=== PATIENT | female | born 1950 | race Caucasian/White ===

== ENCOUNTER 2020-07-02 11:04 | Outpatient (REF) | payer MEDICARE, SELFPAY ==
--- NOTE | 2020-07-02 11:49 | XR_ITS ---
EXAMINATION: XR CHEST CLINICAL INFORMATION: E11.9 - Type 2 diabetes 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s COMPARISON: Chest radiograph 11/06/2017 TECHNIQUE: 2 views of the chest were obtained. FINDINGS: The lungs are clear. The vascularity is normal. There is no airspace consolidation or groundglass opacity or effusion. The costophrenic sulci are clear. The heart is normal in size. The hilar and mediastinal contours are normal. There are degenerative changes thoracic spine. XR/XR chest 2V IMPRESSION: Unremarkable examination.
[2020-07-02 11:59] LABS: Hematocrit 32.5 % (37-47); Mean Corpuscular HGB Conc 33.8 g/dl (31.0-35.0); Mean Corpuscular Hemoglobin 31.4 pg (27.0-33.0); Mean Corpuscular Volume 92.9 fL (80-98); Mean Platelet Volume 10.4 fL (9.4-12.3); Platelet Count 230 X10*3/uL (160-400); Red Cell Distribution Width 13.1 % (11.0-16.0); White Blood Count 8.6 X10*3/uL (4.8-10.8)
[2020-07-02 12:05] LABS: Estimated Average Glucose 105 mg/dL; Hemoglobin A1c % 5.3 %
[2020-07-02 12:30] LABS: Alanine Aminotransferase 20 U/L (0-31); Albumin Level 4.4 g/dL (3.5-5.0); Alkaline Phosphatase 76 U/L (39-117); Anion Gap 18 (12-20); Aspartate Amino Transferase 17 U/L (5-31); Bilirubin Direct 0.2 mg/dL (0.0-0.5); Bilirubin Total 0.4 mg/dL (0.0-1.0); Blood Urea Nitrogen 23 mg/dL (9-16); C Reactive Protein 0.36 mg/dL (< or = 0.50); Calcium 9.3 mg/dL (8.4-10.2); Carbon Dioxide 23 mmol/L (22-29); Chloride 106 mmol/L (96-108); Cholesterol 117 mg/dL; Estimated Glomerular Filt Rate > 60; Glucose Random 74 mg/dL (60-115); HDL Cholesterol 42 mg/dL; LDL Cholesterol Calculated 41 mg/dl; Potassium 4.6 mmol/l (3.3-5.1); Sodium 142 mmol/L (135-145); Total Protein 6.7 g/dL (6.5-8.0); Triglycerides 174 mg/dL
[2020-07-02 12:38] LABS: Glucose Urine UA NEG (NEG); Leukocyte Esterase Urine TRACE (NEG); Nitrite Urine NEG (NEG); PH 5.5 (5.0-8.0); Urine Blood NEG (NEG); Urine Ketones NEG (NEG); Urine Protein NEG (NEG-TRACE)
[2020-07-02 12:40] LABS: Appearance Urine HAZY; Color Urine YELLOW
[2020-07-02 12:41] LABS: Thyroid Stimulating Hormone 1.68 uIU/mL (0.32-4.0)
[2020-07-02 12:51] LABS: Bacteria Urine TRACE /LPF; RBC Urine 0-2 /HPF (0); Squamous Epithelial Cell Urine 2+ /LPF
[2020-07-02 13:06] LABS: Folate > 20.0 ng/mL (> or = 4.0); Vitamin B12 > 2000 pg/mL (200-900)
[2020-07-06 19:47] LABS: Vitamin D 25-OH, D2 <4 ng/mL; Vitamin D 25-OH, D3 39 ng/mL; Vitamin D 25-OH, Total 39 ng/mL (30-100)
== END 2020-07-02 11:05 | disposition home or self-care (01) ==
LOC: HO.LAB 11:04
PROVIDERS: PCP Internal Medicine; Visit Provider Internal Medicine
DX: E11.9 Type 2 diabetes 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s (principal); Z79.4 Long term (current) use of insulin; K21.9 Gastro-esophageal reflux disease without esophagitis
CPT/HCPCS: 36415; 71046; 80048; 80061; 80076; 81001; 82306; 82607; 82746; 83036; 84443; 85027; 86140

== ENCOUNTER 2020-07-20 09:57 | Outpatient (REF) | payer MEDICARE, SELFPAY ==
--- NOTE | 2020-07-22 12:51 | MHC.AU.P13 ---
Adult Audiological Evaluation Date of Visit: 07/20/20 Principal Investigator Used: Not Applicable Reason for Appointment: Audiologic evaluation due to increasing hearing difficulties and history of tinnitus. Does patient feel they have a hearing loss?: Yes If Yes, Which Ear?: Both Ears When Was Hearing Difficulty First Noticed?: 6-7 years ago Has hearing been tested previously?: Yes Previous Hearing Test Results: Testing was performed at [facility] approximately 4-5 years ago. Test results are not available for review; however, Kriss thinks she was told she had a moderate hearing loss at that time. 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 Also has a history of rheumatoid arthritis and sinus infections. Allergies: Sulfa, Codeine, Cymbalta, Doxycycline Medication List: Lantus solostar, Humalog, Methotrexate injection, Plaquene, Gabapentin, Lamotrigine, Omeprazole, Atorvastatin, Lisinopril, Folic Acid, Vit D, Asprin, Ferrous Gluconate, Lidocaine patch Otoscopy: Right Ear: Unremarkable Left Ear: Unremarkable Tympanometry: Tympanometry performed due to: To determine the integrity of the middle ear system Right Ear: Non-compliant Middle Ear System (Type B) Left Ear: Non-compliant Middle Ear System (Type B) Otoacoustic Emissions Frequency Range Used: 1.6-8 kHz Right Ear Results: Absent Emissions Analysis: Reduced/Absent emissions suggest cochlear dysfunction Left Ear Results: Absent Emissions Analysis: Reduced/Absent emissions suggest cochlear dysfunction Hearing Evaluation: Transducer(s) Used: Insert Earphones Bone Conduction Method: Conventional Audiometry Stimuli Used: Pure Tones Right Ear: Description of Hearing: Normal hearing thresholds at 250 and 500 Hz dropping to a severe high frequency sensorineural hearing loss Left Ear: Description of Hearing: Normal hearing thresholds at 250 and 500 Hz dropping to a moderately-severe high frequency sensorineural hearing loss The non-functioning middle ear systems do not appear to be causing further conductive hearing loss. Speech Recognition Threshold (SRT): Method Used: Monitored Live Voice Stimuli Used: Spondee Words Right Ear: 30 dB HL Left Ear: 30 dB HL Word Discrimination: Method: Recorded Lists Word Lists Used: NU-6 Right Ear: 72% at 70 dB HL Left Ear: 72% at 70 dB HL QuickSIN: Binaural Quick SIN Test: 8 dB SNR Loss suggesting Kriss experiences a moderate degree of difficulty understanding speech when background noise is present. This results is consistent with the degree and type of Kriss's hearing loss Comparison: Compared to the most recent evaluation: N/A Recommendations: Audiological re-evaluation in one year. 1) Discussed and provided a handout regarding Communication Strategies to use to improve speech understanding. 2) Recommend trial with binaural hearing aids due to the degree and type of hearing loss diagnosed. Kriss is no certain she is ready to try amplification at this time. 3) If Kriss would like to trial hearing aids at this office within the next six months, she may schedule a Hearing Aid Evaluation appointment. Diagnosis: Primary Diagnosis: H90.3 Bilateral Sensorineural Hearing Loss Secondary Diagnosis: H93.13 Tinnitus, Bilateral Services Performed: Comprehensive Audiological Evaluation (CPT 22903) Diagnostic Otoacoustic Emissions (CPT 17821, 26+TC) Tympanometry (CPT 80715) Signature: Provider: Tyron Griggs, CCC-A
== END 2020-07-20 09:58 | disposition home or self-care (01) ==
LOC: HO.SH 09:57
PROVIDERS: Visit Provider Internal Medicine
DX: H90.3 Sensorineural hearing loss, bilateral (principal); H93.13 Tinnitus, bilateral
CPT/HCPCS: 92557; 92567; 92588

== ENCOUNTER 2020-08-05 11:26 | Outpatient (REF) | payer MEDICARE, SELFPAY ==
[2020-08-05 12:27] LABS: MANUAL DIFF FLAG NO
[2020-08-05 12:32] LABS: Basophils Percent Auto 0.6 % (0-2); Eosinophils Absolute Auto 0.2 X10*3/uL (0.0-0.4); Eosinophils Percent Auto 2.7 % (0-4); Hematocrit 29.2 % (37-47); Imm Gran Abs Auto 0.02 X10*3/uL (0.00-0.03); Imm Gran Pct Auto 0.3 % (0.0-0.4); Lymphocytes Absolute Auto 0.9 X10*3/uL (1.2-4.9); Lymphocytes Percent Auto 12.2 % (20-40); Mean Corpuscular HGB Conc 34.2 g/dl (31.0-35.0); Mean Corpuscular Hemoglobin 31.9 pg (27.0-33.0); Mean Corpuscular Volume 93.3 fL (80-98); Mean Platelet Volume 10.7 fL (9.4-12.3); Monocytes Absolute Auto 0.3 X10*3/uL (0.1-1.2); Monocytes Percent Auto 3.9 % (2-11); Neutrophils Absolute Auto 5.7 X10*3/uL (2.0-8.3); Neutrophils Percent Auto 80.3 % (45-73); Platelet Count 256 X10*3/uL (160-400); Red Blood Count 3.13 X10*6/uL (4.20-5.50); White Blood Count 7.1 X10*3/uL (4.8-10.8)
[2020-08-05 12:37] LABS: D Dimer 217 NG/ML
[2020-08-05 13:05] LABS: Anion Gap 13 (12-20); Blood Urea Nitrogen 23 mg/dL (9-16); Calcium 8.9 mg/dL (8.4-10.2); Carbon Dioxide 26 mmol/L (22-29); Chloride 106 mmol/L (96-108); Cholesterol 87 mg/dL; Estimated Glomerular Filt Rate 47; Glucose Fasting 151 mg/dL (60-99); HDL Cholesterol 33 mg/dL; LDL Cholesterol Calculated 34 mg/dl; Potassium 4.2 mmol/L (3.3-5.1); Sodium 141 mmol/L (135-145); Triglycerides 104 mg/dL
== END 2020-08-05 11:27 | disposition home or self-care (01) ==
LOC: HO.LAB 11:26
PROVIDERS: PCP Internal Medicine; Visit Provider Nurse Practitioner Family
DX: J45.991 Cough variant asthma (principal)
CPT/HCPCS: 36415; 80048; 80061; 85025; 85379

== ENCOUNTER → 2020-08-26 09:49 | Outpatient (BNVA) | payer MEDICARE, SELFPAY | PROVIDERS: PCP Internal Medicine; Visit Provider Internal Medicine | DX: J45.991 Cough variant asthma (principal); J30.9 Allergic rhinitis, unspecified; R06.00 Dyspnea, unspecified; Z79.51 Long term (current) use of inhaled steroids; Z79.899 Other long term (current) drug therapy | CPT/HCPCS: 99202 ==

== ENCOUNTER 2020-08-27 09:36 | Outpatient (REF) | payer MEDICARE, SELFPAY ==
--- NOTE | ~2020-08-27 | MM_ITS ---
EXAMINATION: MM SCREENING DIGITAL BREAST TOMOSYNTHESIS, BILATERAL CLINICAL INFORMATION: Screening. Asymptomatic. The lifetime risk of breast cancer based on the Tyrer-Cuzick Model is 4%. COMPARISON: Mammography: 05/15/2019, outside mammography 01/15/2018, 11/30/2015 ([facility]). TECHNIQUE: Digital breast tomosynthesis is performed in both the craniocaudal and mediolateral oblique views along with computer-aided detection (CAD). Synthesized 2D images are generated from the tomosynthesis. FINDINGS: There are scattered areas of fibroglandular density (ACR BI-RADS breast composition Category b). There are no significant masses, abnormal calcifications, or other abnormalities. There is biopsy clip marker again noted left breast upper outer quadrant. There are bilateral vascular and some round calcifications again seen. The axilla and skin contours are unremarkable. MM/MM tomosynthesis screening BI IMPRESSION: No mammographic evidence of malignancy. ASSESSMENT: BI-RADS 2: Benign RECOMMENDATION: Routine annual mammography screening. This patient's information was entered into a reminder system with a target due date for their next mammogram.
== END 2020-08-27 09:37 | disposition home or self-care (01) ==
LOC: HO.MAMMO 09:36
PROVIDERS: PCP Internal Medicine; Visit Provider Internal Medicine
DX: Z12.31 Encounter for screening mammogram for malignant neoplasm of breast (principal)
CPT/HCPCS: 77063; 77067

== ENCOUNTER → 2020-09-06 08:21 | Outpatient (BNV) | payer MEDICARE, SELFPAY | PROVIDERS: PCP Internal Medicine; Referring Provider Internal Medicine; Visit Provider Internal Medicine | DX: D64.9 Anemia, unspecified (principal) | CPT/HCPCS: 99203; 99213; 99214; G2211 ==

== ENCOUNTER 2020-09-23 09:54 | Outpatient (REF) | payer MEDICARE, SELFPAY ==
--- NOTE | 2020-09-23 11:30 | PFT_ITS ---
FLOWS: FEV1 of 121% of predicted at 2.10 L. FVC 108% of predicted at 2.50 L. FEV1 to FVC ratio of 0.84. No bronchodilator response. LUNG VOLUMES: Total lung capacity 98% of predicted at 4.07 L. Residual volume 77% of predicted at 1.46 L. Slow vital capacity 114% of predicted at 2.61 L. Expiratory reserve volume 77% of predicted at 0.57 L. Diffusion capacity is normal. IMPRESSION: No obstructive or restrictive ventilatory defect. No bronchodilator response. Decreased expiratory reserve volume suggests extrathoracic restriction likely secondary to abdominal obesity. Oseas Alvarado MD AP/MODL / [id number]
== END 2020-09-23 09:55 | disposition home or self-care (01) ==
LOC: HO.RESP 09:54
PROVIDERS: PCP Internal Medicine; Visit Provider Internal Medicine
DX: R06.00 Dyspnea, unspecified (principal); J45.991 Cough variant asthma; J30.9 Allergic rhinitis, unspecified
CPT/HCPCS: 94060; 94727; 94729; 99212

== ENCOUNTER 2020-11-12 12:41 | Outpatient (REF) | payer MEDICARE, SELFPAY ==
--- NOTE | ~2020-11-12 | XR_ITS ---
EXAMINATION: BILATERAL HAND AND WRIST X-RAY CLINICAL INFORMATION: Rheumatoid arthritis COMPARISON: None TECHNIQUE: 4 views of each hand and wrist FINDINGS: Left: Bone alignment is normal. No fracture or dislocation is seen. There is osteoarthritis at the IP joints with joint space narrowing and osteophyte formation. There is question of a small erosion or cyst of the radial styloid. There is some some adjacent soft tissue ossification as well. It is possible this is related to old trauma. Carpal bones are otherwise normal. Soft tissues are otherwise normal. Right: Bone alignment is normal. No fracture or dislocation is seen. There is mild osteoarthritis at the IP joint of the thumb with joint space narrowing and osteophyte formation. There is a small cyst or erosion of the ulnar styloid. Carpal bones are otherwise normal. Soft tissues are normal. 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 Small cyst or erosion of the right ulnar styloid. Question small cyst or erosion of the left radial styloid.
--- NOTE | ~2020-11-12 | XR_ITS ---
EXAMINATION: BILATERAL HAND AND WRIST X-RAY CLINICAL INFORMATION: Rheumatoid arthritis COMPARISON: None TECHNIQUE: 4 views of each hand and wrist FINDINGS: Left: Bone alignment is normal. No fracture or dislocation is seen. There is osteoarthritis at the IP joints with joint space narrowing and osteophyte formation. There is question of a small erosion or cyst of the radial styloid. There is some some adjacent soft tissue ossification as well. It is possible this is related to old trauma. Carpal bones are otherwise normal. Soft tissues are otherwise normal. Right: Bone alignment is normal. No fracture or dislocation is seen. There is mild osteoarthritis at the IP joint of the thumb with joint space narrowing and osteophyte formation. There is a small cyst or erosion of the ulnar styloid. Carpal bones are otherwise normal. Soft tissues are normal. XR/XR hand wrist LT IMPRESSION: Osteoarthritis at the IP joints, left greater than right. Small cyst or erosion of the right ulnar styloid. Question small cyst or erosion of the left radial styloid.
[2020-11-12 14:16] LABS: MANUAL DIFF FLAG NO
[2020-11-12 14:23] LABS: Basophils Absolute Auto 0.1 X10*3/uL (0.0-0.2); Eosinophils Absolute Auto 0.4 X10*3/uL (0.0-0.4); Eosinophils Percent Auto 3.1 % (0-4); Hematocrit 32.4 % (37-47); Hemoglobin 11.3 g/dl (12.0-16.0); Imm Gran Abs Auto 0.05 X10*3/uL (0.00-0.03); Imm Gran Pct Auto 0.4 % (0.0-0.4); Lymphocytes Absolute Auto 1.7 X10*3/uL (1.2-4.9); Lymphocytes Percent Auto 14.4 % (20-40); Mean Corpuscular HGB Conc 34.9 g/dl (31.0-35.0); Mean Corpuscular Hemoglobin 31.8 pg (27.0-33.0); Mean Corpuscular Volume 91.3 fL (80-98); Mean Platelet Volume 10.9 fL (9.4-12.3); Monocytes Absolute Auto 0.8 X10*3/uL (0.1-1.2); Monocytes Percent Auto 6.5 % (2-11); Neutrophils Absolute Auto 8.8 X10*3/uL (2.0-8.3); Neutrophils Percent Auto 74.6 % (45-73); Platelet Count 258 X10*3/uL (160-400); Red Blood Count 3.55 X10*6/uL (4.20-5.50); Red Cell Distribution Width 13.2 % (11.0-16.0); White Blood Count 11.8 X10*3/uL (4.8-10.8)
[2020-11-12 15:04] LABS: Alanine Aminotransferase 18 U/L (0-31); Albumin Level 4.5 g/dL (3.5-5.0); Alkaline Phosphatase 80 U/L (39-117); Anion Gap 15 (12-20); Aspartate Amino Transferase 16 U/L (5-31); Bilirubin Total 0.5 mg/dL (0.0-1.0); Blood Urea Nitrogen 27 mg/dL (9-16); C Reactive Protein 0.29 mg/dL (< or = 0.50); Calcium 9.6 mg/dL (8.4-10.2); Carbon Dioxide 26 mmol/L (22-29); Chloride 104 mmol/L (96-108); Estimated Glomerular Filt Rate 49; Glucose Random 96 mg/dL (60-115); Potassium 4.5 mmol/L (3.3-5.1); Rheumatoid Factor < 15.0 IU/mL (<15.0); Sodium 140 mmol/L (135-145); Total Protein 6.8 g/dL (6.5-8.0)
[2020-11-12 15:12] LABS: Erythrocyte Sedimentation Rate 11 MM/HR (0-20)
[2020-11-13 12:21] LABS: Antibody to SS-A Antigen <1.0 NEG AI (<1.0 NEG); Antibody to SS-B Antigen <1.0 NEG AI (<1.0 NEG)
[2020-11-15 08:36] LABS: HBS Num1 0.65 mIU/mL (0-7.99); HBc Num1 0.06 S/CO (0.00-0.79); Hepatitis B Core Antibody Nonreactive (Nonreactive); ~HepC Num1 0.04 S/CO (0.00-0.79); ~Hepatitis B Surface Antibody NONREACTIVE (Nonreactive); ~Hepatitis C Antibody Nonreactive (Nonreactive)
[2020-11-15 08:43] LABS: HBsAGNum1 0.19 S/CO (0.00-0.99); Hepatitis B Surface Antigen Negative (Negative)
[2020-11-15 16:27] LABS: TS Negative Control Passed; TS Panel A 0; TS Panel B 0; TS Positive Control Passed; TSpotTB Negative (SeeBelow)
[2020-11-16 12:57] LABS: Vitamin D 25-OH, D2 <4 ng/mL; Vitamin D 25-OH, D3 45 ng/mL; Vitamin D 25-OH, Total 45 ng/mL (30-100)
[2020-11-17 08:04] LABS: Hepatitis A Antibody IgM 0.32 Index (0-0.79); ~Hepatitis A Antibody IgM Nonreactive (Nonreactive)
[2020-11-17 21:12] LABS: Cyclic Citrullinated Peptide <16 UNITS
== END 2020-11-12 12:42 | disposition home or self-care (01) ==
LOC: HO.XRAY 12:41
PROVIDERS: PCP Internal Medicine; Visit Provider Student in an Organized Health Care Education/Training Program
DX: M06.09 Rheumatoid arthritis without rheumatoid factor, multiple sites (principal); Z79.899 Other long term (current) drug therapy
CPT/HCPCS: 36415; 73110; 73130; 80053; 82306; 85025; 85652; 86140; 86200; 86235; 86431; 86481; 86704; 86706; 86709; 86803; 87340; 99202

== ENCOUNTER 2020-12-02 10:22 | Outpatient (REF) | payer MEDICARE, SELFPAY ==
--- NOTE | ~2020-12-02 | MM_ITS ---
EXAMINATION: BONE DENSITOMETRY CLINICAL INDICATION: Rheumatoid arthritis without rheumatoid factor. COMPARISON: This is the patient's baseline examination. TECHNIQUE: Using a [employer] DXA System (software version: 13.1) manufactured by [employer], dual-energy x-ray absorptiometry was performed of the lumbar spine and left hip. The images are of good technical quality. Summary results are attached. FINDINGS: AP SPINE L1-L2 (excluding L3 and L4): The data of L1-L4 has been changed to exclude the L3 and L4 vertebral bodies, because degenerative sclerosis at these levels may cause overestimation of lumbar spine density. BMD 1.012 g/cm2, Z-score 0.0, T-score -1.3, osteopenia. LEFT FEMUR, NECK: BMD 0.975 g/cm2, Z-score 1.0, T-score -0.5, normal. LEFT FEMUR, TOTAL: BMD 1.078 g/cm2, Z-score 1.7, T-score 0.6, normal. IDENTIFIED RISK FACTORS: Rheumatoid arthritis, height loss. Early menopause, secondary osteoporosis, anticonvulsants, glucocorticoids (chronic), thiazide, hysterectomy. HISTORY OF FRACTURE: None listed. MEDICATIONS: Vitamin D. MM/XR DEXA axial skeleton IMPRESSION: 1. DIAGNOSIS: Osteopenia based on the lowest T-score value of -1.3 in the lumbar spine applying World Health Organization criteria. 2. 10-YEAR FRACTURE RISK PREDICTION, FRAX: Major osteoporotic fracture (clinical spine, forearm, hip or shoulder) 14.5%. Hip fracture 1.2%. 3. Treatment Recommendations: NOF guidelines recommend consideration for treatment in postmenopausal women and men age 50 and older presenting with the following: -A hip or vertebral (clinical or morphometric) fracture. -T-score less than or equal to -2.5 at the femoral neck or spine after appropriate evaluation to exclude secondary causes. -Low bone mass at the hip or spine and a 10-year fracture probability by FRAX of greater than or equal to 3% for hip fracture or greater than or equal to 20% for major osteoporotic fracture based on the [place] adapted WHO algorithm. 4. Other Recommendations: All treatment decisions require clinical judgment and consideration of individual patient factors, including patient preferences, comorbidities, previous drug use, risk factors not captured in the FRAX model (e.g. frailty, falls, vitamin D deficiency, increased bone turnover, interval significant decline in bone density) and possible under or overestimation of fracture risk by FRAX. Additional medical evaluation for secondary cause of low bone mineral density may be appropriate. FUTURE SCAN RECOMMENDATION: People with diagnosed cases of osteoporosis or at high risk for fracture should have regular bone mineral density tests. For patients eligible for Medicare, routine testing is allowed once every 2 years. The testing frequency can be increased to one year for patients who have rapidly progressing disease, those who are receiving or discontinuing medical therapy to restore bone mass, or have additional risk factors.
== END 2020-12-02 10:23 | disposition home or self-care (01) ==
LOC: HO.MAMMO 10:22
PROVIDERS: PCP Internal Medicine; Visit Provider Student in an Organized Health Care Education/Training Program
DX: Z13.820 Encounter for screening for osteoporosis (principal); Z78.0 Asymptomatic menopausal state; M06.09 Rheumatoid arthritis without rheumatoid factor, multiple sites
CPT/HCPCS: 77080

== ENCOUNTER → 2020-12-09 14:30 | Outpatient (BNVA) | payer MEDICARE, SELFPAY | PROVIDERS: PCP Internal Medicine; Visit Provider Student in an Organized Health Care Education/Training Program | DX: M06.09 Rheumatoid arthritis without rheumatoid factor, multiple sites (principal); M85.80 Other specified disorders of bone density and structure, unspecified site; M75.80 Other shoulder lesions, unspecified shoulder | CPT/HCPCS: 99212 ==

== ENCOUNTER → 2021-01-18 10:13 | Outpatient (BNVA) | payer MEDICARE, SELFPAY | PROVIDERS: PCP Internal Medicine; Visit Provider Internal Medicine | DX: J30.9 Allergic rhinitis, unspecified (principal); J45.909 Unspecified asthma, uncomplicated; R06.00 Dyspnea, unspecified | CPT/HCPCS: 99212 ==

== ENCOUNTER 2021-02-10 17:00 | Outpatient (RCR) | payer MEDICARE, SELFPAY ==
--- NOTE | 2021-01-10 10:56 | MHC.PT.EP ---
[facility] [place] Office [place] Office [place] Office [address] Julien Ovalle [address] [phone] F: [phone] F: [phone] F: [phone] F: [phone] Physical Therapy Plan of Care Date of Evaluation: Date of Surgery: N/A Diagnosis: Rt shoulder pain Assessment: pt is a poor historian and gives inconsistent feedback during range and strength testing. Her sypmtomology including stiffness that improves throughout the day seems consistent w/ OA or potential bursitis; however, it is difficult to rule in/out d/t poor pt feedback. She presents w/ pain reactions inconsistent w/ pressure applied during palpation indicating potential allodynia response. Her passive range did not demonstrate any capsular type end feels ruling out adhesive capsulitis; however, given her female sex and history of DM II I am concerned if she continues to self-immobilize she will develop a frozen shoulder. pt presents to physical therapy with pain, decreased range of motion, decreased strength, impaired functional mobility, and impaired postural awareness. pt is a fair candidate for skilled PT due to age, potential remediation of impairments, typical disease/condition progression and prognosis, comorbidities, and motivation. pt would benefit from tailored strengthening and stretching exercise program, functional training, postural re-training, neuromuscular re-education, modalities as needed for pain, equipment safety demonstration. Frequency and Duration: The patient will be seen 2x/wk for 4 wks Short Term Goals: pt will be I w/ HEP to promote self-management of condition. pt will improve R shoulder flexion by 10 degrees to promote ease in reaching for objects on higher shelves. 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 pt will report <2/10 R shoulder pain w/ carrying 5# object x 50' to facilitate return to carrying groceries into home. Treatment Plan: Modalities to reduce pain, spasms and effusion. Manual therapy to restore motion and function. Therapeutic exercise to improve strength and flexibility. Neuromuscular re-education for posture and balance. Therapeutic activities to return to functional activities of daily living. Electronically signed by: Abby Montelongo PT, DPT Please sign and return to therapist. Thank you for your referral.
--- NOTE | 2021-02-10 18:00 | MHC.PT.DC ---
[facility] [place] Office [place] Office [place] Office [address] Julien Ovalle [address] [facility] [phone] F: [phone] F: [phone] F: [phone] F: [phone] Physical Therapy Discharge Report Diagnosis: Rt shoulder pain Date of Surgery: N/A Date of Evaluation: 01/10/21 Date of Discharge: 02/10/21 Treatments to Date: 8 Cancellations to Date: 0 No Shows to Date: 0 Discharge Status: Improved Function Independent with HEP Discharge Summary: The patient reported physical therapy has been very helpful in managing her pain. She feels she is independent with her home exercise program including shoulder stretching, shoulder strengthening, postural stability, and periscapular/rotator cuff strengthening. She is discharged from this physical therapy plan of care per her request. Electronically signed by: Abby Montelongo PT, DPT Please sign and return to therapist. Thank you for your referral.
== END 2021-02-10 18:00 | disposition home or self-care (01) ==
LOC: HO.PT 17:00
PROVIDERS: PCP Internal Medicine; Visit Provider Student in an Organized Health Care Education/Training Program
DX: M75.80 Other shoulder lesions, unspecified shoulder (principal)
CPT/HCPCS: 97110; 97140; 97150; 97161

== ENCOUNTER 2021-03-10 16:10 | Outpatient (REF) | payer MEDICARE, SELFPAY ==
[2021-03-10 17:03] LABS: MANUAL DIFF FLAG NO
[2021-03-10 17:06] LABS: Basophils Absolute Auto 0.1 X10*3/uL (0.0-0.2); Basophils Percent Auto 0.9 % (0-2); Eosinophils Absolute Auto 0.4 X10*3/uL (0.0-0.4); Eosinophils Percent Auto 3.7 % (0-4); Hematocrit 34.4 % (37-47); Hemoglobin 12.4 g/dl (12.0-16.0); Imm Gran Abs Auto 0.05 X10*3/uL (0.00-0.03); Imm Gran Pct Auto 0.5 % (0.0-0.4); Lymphocytes Absolute Auto 1.4 X10*3/uL (1.2-4.9); Lymphocytes Percent Auto 12.5 % (20-40); Mean Corpuscular Hemoglobin 33.5 pg (27.0-33.0); Mean Platelet Volume 11.1 fL (9.4-12.3); Monocytes Absolute Auto 0.5 X10*3/uL (0.1-1.2); Monocytes Percent Auto 4.5 % (2-11); Neutrophils Absolute Auto 8.6 X10*3/uL (2.0-8.3); Neutrophils Percent Auto 77.9 % (45-73); Platelet Count 270 X10*3/uL (160-400); Red Cell Distribution Width 13.2 % (11.0-16.0)
[2021-03-10 17:31] LABS: Alanine Aminotransferase 21 U/L (0-31); Albumin Level 4.3 g/dL (3.5-5.0); Alkaline Phosphatase 72 U/L (39-117); Anion Gap 15 (12-20); Aspartate Amino Transferase 19 U/L (5-31); Bilirubin Total 0.7 mg/dL (0.0-1.0); Blood Urea Nitrogen 21 mg/dL (9-16); C Reactive Protein 0.31 mg/dL (< or = 0.50); Calcium 9.7 mg/dL (8.4-10.2); Carbon Dioxide 26 mmol/L (22-29); Chloride 105 mmol/L (96-108); Estimated Glomerular Filt Rate 49; Glucose Random 127 mg/dL (60-115); Potassium 4.4 mmol/L (3.3-5.1); Sodium 142 mmol/L (135-145); Total Protein 6.4 g/dL (6.5-8.0)
[2021-03-10 18:41] LABS: Erythrocyte Sedimentation Rate 11 MM/HR (0-20)
== END 2021-03-10 16:11 | disposition home or self-care (01) ==
LOC: HO.LAB 16:10
PROVIDERS: PCP Internal Medicine; Visit Provider Student in an Organized Health Care Education/Training Program
DX: M06.09 Rheumatoid arthritis without rheumatoid factor, multiple sites (principal)
CPT/HCPCS: 36415; 80053; 85025; 85652; 86140

== ENCOUNTER → 2021-03-14 08:24 | Outpatient (BNVA) | payer MEDICARE, SELFPAY | PROVIDERS: PCP Internal Medicine; Visit Provider Nurse Practitioner Family | DX: M06.09 Rheumatoid arthritis without rheumatoid factor, multiple sites (principal); M85.80 Other specified disorders of bone density and structure, unspecified site; M75.80 Other shoulder lesions, unspecified shoulder | CPT/HCPCS: 99212 ==

== ENCOUNTER → 2021-05-02 11:22 | Outpatient (BNVA) | payer MEDICARE, SELFPAY | PROVIDERS: PCP Internal Medicine; Referring Provider Internal Medicine; Visit Provider Nurse Practitioner | DX: K91.5 Postcholecystectomy syndrome (principal); D12.6 Benign neoplasm of colon, unspecified; Z79.899 Other long term (current) drug therapy | CPT/HCPCS: 99202 ==

== ENCOUNTER 2021-05-23 10:25 | Emergency (ER) | payer MEDICARE, SELFPAY ==
--- NOTE | ~2021-05-23 | XR_ITS ---
EXAMINATION: XR CHEST CLINICAL INFORMATION: Covid infection. Vomiting and diarrhea. COMPARISON: Previous chest x-ray June 2020 TECHNIQUE: 2 views of the chest were obtained. FINDINGS: The cardiac and mediastinal contours are normal. The lungs are clear. There is no pleural effusion or pneumothorax. There are degenerative changes of the spine. XR/XR chest 2V IMPRESSION: Unremarkable examination.
[2021-05-23 11:27] VITALS: BP 130/74; PULSE 81; RESP 18; TEMP 36.9; O2SAT 97; BMI 36.8
--- NOTE | 2021-05-23 11:36 | ED_ITS ---
HPI - URI/Sore Throat General Chief Complaint: Upper Respiratory Symptoms Stated Complaint: + covid, weakness, diarrhea, vomiting Time Seen by Provider: 05/23/21 11:36 Source: patient Mode of arrival: ambulatory Limitations: no limitations History of Present Illness HPI Narrative: patient is COVID positive since being tested May 12. Not eating, vomiting, diarrhea. Patient is vaccinated. Patient had monoclonal antibodies on the weekend at [facility]. MD elicited complaint: cough Onset (ago): week(s) Consistency: constant Severity: moderate Exacerbating factors: other (eating and drinking) Associated symptoms: fever, chills, headache, nausea, vomiting and diarrhea Related Data Home Medications Medication Instructions Recorded Confirmed blood sugar diagnostic #10 ea 06/28/20 03/14/21 clopidogrel 75 mg tablet 75 mg PO DAILY 06/28/20 03/14/21 folic acid 1 mg tablet 1 mg PO DAILY 06/28/20 03/14/21 gabapentin 600 mg tablet 1,800 mg PO DAILY 06/28/20 03/14/21 lamotrigine 25 mg tablet 50 mg PO DAILY 06/28/20 03/14/21 aspirin 81 mg tablet,delayed 81 mg PO DAILY 08/26/20 03/14/21 release cholecalciferol (vitamin D3) 50 50 mcg PO DAILY 08/26/20 03/14/21 mcg (2,000 unit) capsule methotrexate sodium (PF) 25 mg/mL 15 mg IM QWEEK ml 11/12/20 03/14/21 injection solution albuterol sulfate 90 mcg/actuation 2 puff INHALATION Q4-6H PRN 01/18/21 03/14/21 aerosol inhaler (ProAir HFA) Previous Rx's Medication Instructions Recorded insulin syringe-needle U-100 1 mL #100 ea 10/21/20 29 gauge x 7/16 Humalog KwikPen Insulin 100 40 unit (0.4 mL) SUBCUT TID #108 11/04/20 unit/mL subcutaneous (insulin ml NS lispro) fluticasone propionate 50 2 spray INTRANASAL DAILY #16 g 11/05/20 mcg/actuation nasal spray,suspension walker #1 ea 11/12/20 ferrous sulfate 325 mg (65 mg 325 mg PO DAILY #90 tab 01/13/21 iron) tablet lisinopril 10 1 tab PO DAILY #90 tab 01/13/21 mg-hydrochlorothiazide 12.5 mg tablet lidocaine 5 % topical patch 1 patch TOPICAL DAILY #30 patch 01/29/21 metronidazole 1 % topical gel with 1 appl TOPICAL DAILY #55 g 02/03/21 pump blood sugar diagnostic (OneTouch #150 ea 04/12/21 Ultra Test) insulin glargine 100 unit/mL (3 100 unit SUBCUT BEDTIME #30 ml 04/12/21 mL) subcutaneous pen (Lantus Solostar U-100 Insulin) pen needle, diabetic 32 gauge x 1 ea MISCELLANEOUS QID #150 ea 04/12/21 5/32 (BD [place] 2nd Gen Pen Needle) peg 3350-electrolytes 236 240 ml PO Q10M 1 Days #4000 ml 05/02/21 gram-22.74 gram-6.74 gram-5.86 gram solution (Golytely) sucralfate 1 gram tablet (Carafate) 2 g PO DAILY 30 Days #60 tab 05/02/21 atorvastatin 20 mg tablet 20 mg PO DAILY #90 tab 05/04/21 hydroxychloroquine 200 mg tablet 200 mg PO BID #60 tab 05/08/21 Allergies Allergy/AdvReac Type Severity Reaction Status Date / Time duloxetine Allergy Severe LOOPY Verified 05/23/21 11:24 codeine [CODEINE] Allergy Intermediate GI UPSET Verified 05/23/21 11:24 doxycycline [DOXYCYCLINE] Allergy Intermediate RASH Verified 05/23/21 11:24 Sulfa (Sulfonamide Allergy Intermediate Hives Verified 05/23/21 11:24 Antibiotics) [SULFA (SULFONAMIDE ANTIBIOTICS)] Review of Systems Neurologic: Denies Sensory deficit (Neuro) [facility] Past Medical History Medical History (Updated 05/23/21 @ 15:05 by Jim Velasquez MD) Allergic rhinitis Asthma Asthma exacerbation Bronchitis Cough variant asthma COVID-19 Decreased hearing DJD (degenerative joint disease) Dyspnea on exertion GERD (gastroesophageal reflux disease) Laryngopharyngeal reflux (LPR) Polyarthralgia Post-menopausal Type 2 diabetes 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s Surgical History History of colonoscopy Hx of cholecystectomy Hx of hysterectomy Hx of tonsillectomy Family History Family History Father CVD (cardiovascular disease) Diabetes Mother Diabetes Sister No problems noted. Other Substance use disorder Social History Social History Alcohol intake: never Patient Tobacco Use Status: Never used Tobacco Use of substances other than those prescribed or required for medical reasons: No Advance Directives: No Physical Exam Vital Signs: Vital Signs: Last Vital Signs Temp 98.7 F 05/23/21 13:30 Pulse 74 05/23/21 13:30 Resp 18 05/23/21 13:30 BP 131/76 05/23/21 13:30 Pulse Ox 96 05/23/21 13:30 Body Mass Index 36.8 Const: General: healthy appearing Nutritional Appearance: average body habitus Orientation/consciousness: oriented to person and patient oriented x3 Limitations: no limitations HENMT: Head: Yes normal to inspection Ears: external ears normal General nose exam: Normal external nose present Mouth: Normal oral and palatal mucosa present and oropharynx normal Throat: Yes posterior oropharynx normal Eyes: General: appearance normal, both eyes and all related structures Neck: Other: supple Neck: Yes normal visual inspection Chest: Chest palpation & inspection: normal inspection of the chest Resp: Auscultation: clear to auscultation bilaterally Cardio: Jugular venous distension: no JVD Rate: regular rate Rhythm: regular rhythm Heart sounds: S1 normal heart sound present and S2 normal heart sound present GI: Inspection: Yes normal to inspection Palpation (GI): Soft to palpation, nontender and No hepatosplenomegaly present Auscultation: normal bowel sounds : General: Yes no CVA tenderness Back/Spine/Pelvis: Back: no CVA tenderness Skin: General skin exam: no rashes or lesions noted Neuro: General: oriented to person and patient oriented x3 Cranial nerves: Yes CN's II-XII intact bilaterally Motor exam (neuro): 5/5 motor strength present throughout Sensory Exam: No Sensory deficit (Neuro) Extrem: General: Yes normal to inspection Psych: Appearance: grossly normal Course Reevaluation(s) Reevaluation #1: no vomiting, patient hydrated, feeling better, will dc on zofran Time: 15:03 MDM - URI/Sore Throat Lab Data Result diagrams: 05/23/21 12:11 05/23/21 12:11 Labs: Lab Results 05/23/21 05/23/21 Range/Units 12:11 12:11 WBC 6.1 (4.8-10.8) X10*3/uL RBC 3.65 L (4.20-5.50) X10*6/uL Hgb 11.8 L (12.0-16.0) g/dl Hct 33.8 L (37.0-47.0) % MCV 92.6 (80.0-98.0) fL MCH 32.3 (27.0-33.0) pg MCHC 34.9 (31.0-35.0) g/dl RDW 13.3 (11.0-16.0) % Plt Count 117 L (160-400) X10*3/uL MPV 11.1 (9.4-12.3) fL Immature Gran % (Auto) 0.5 H (0.0-0.4) % Neut % (Auto) 65.3 (45-73) % Lymph % (Auto) 22.7 (20-40) % [place] % (Auto) 10.1 (2-11) % Eos % (Auto) 1.1 (0-4) % Baso % (Auto) 0.3 (0-2) % Lymph # (Auto) 1.4 (1.2-4.9) X10*3/uL [place] # (Auto) 0.6 (0.1-1.2) X10*3/uL Eos # (Auto) 0.1 (0.0-0.4) X10*3/uL Baso # (Auto) 0.0 (0.0-0.2) X10*3/uL Abs Immat Gran (auto) 0.03 (0.00-0.03) X10*3/uL Absolute Neuts (auto) 4.0 (2.0-8.3) x10*3/uL Absolute Nucleated RBC 0.000 (0.0-0.012) X10*3/uL Nucleated RBC % (auto) 0.0 (0.0-0.2) /100WBC Sodium 139 (135-145) mmol/L Potassium 4.0 (3.3-5.1) mmol/L Chloride 104 (96-108) mmol/L Carbon Dioxide 20 L (22-29) mmol/L Anion Gap 19 (12-20) BUN 31 H (9-16) mg/dL Creatinine 0.99 (0.5-1.4) mg/dL Estim Creat Clear Calc 45.1 Estimated GFR 55 Random Glucose 114 (60-115) mg/dL Calcium 8.8 D (8.4-10.2) mg/dL Imaging Data Chest x-ray: Radiologist's impression: FINDINGS: The cardiac and mediastinal contours are normal. The lungs are clear. There is no pleural effusion or pneumothorax. There are degenerative changes of the spine. XR/XR chest 2V IMPRESSION: Unremarkable examination Discharge Plan Discharge Clinical Impression: COVID, Nausea, vomiting and diarrhea Patient Disposition: Home, Self-Care Instructions: Acute Nausea and Vomiting (ED), Acute Diarrhea (ED), COVID-19 (Coronavirus Disease 2019) (ED) Prescriptions: No Action (DME) insulin syringe-needle U-100 1 mL 29 gauge x 7/16 syringe See Rx Instructions ea .ROUTE QWEEK Qty: 100 RF: 0 insulin lispro [Humalog KwikPen Insulin] 100 unit/mL insulin pen 40 unit subcut TID Qty: 108 RF: 0 fluticasone propionate 50 mcg/actuation spray,suspension 2 spray intranasal DAILY Qty: 16 RF: 0 ferrous sulfate 325 mg (65 mg iron) tablet 325 mg PO DAILY Qty: 90 RF: 1 lisinopril-hydrochlorothiazide 10-12.5 mg tablet 1 tab PO DAILY Qty: 90 RF: 1 lidocaine 5 % adhesive patch,medicated 1 patch topical DAILY Qty: 30 RF: 0 metronidazole 1 % gel with pump 1 appl topical DAILY Qty: 55 RF: 0 pen needle, diabetic [BD [place] 2nd Gen Pen Needle] 32 gauge x 5/32 needle 1 ea miscellaneous QID Qty: 150 RF: 12 (DME) OneTouch Ultra Test Strip See Rx Instructions .Route Qty: 150 RF: 12 Lantus Solostar U-100 Insulin 100 unit/mL (3 mL) insulin pen 100 unit subcut BEDTIME Qty: 30 RF: 12 atorvastatin 20 mg tablet 20 mg PO DAILY Qty: 90 RF: 0 hydroxychloroquine 200 mg tablet 200 mg PO BID Qty: 60 RF: 1 (DME) OneTouch Ultra Blue Test Strip Strip See Rx Instructions ea .ROUTE QID Qty: 10 RF: 0 gabapentin 600 mg tablet 1,800 mg PO DAILY RF: 0 clopidogrel 75 mg tablet 75 mg PO DAILY RF: 0 lamotrigine 25 mg tablet 50 mg PO DAILY RF: 0 folic acid 1 mg tablet 1 mg PO DAILY RF: 0 cholecalciferol (vitamin D3) 50 mcg (2,000 unit) capsule 50 mcg PO DAILY RF: 0 aspirin 81 mg tablet,delayed release (DR/EC) 81 mg PO DAILY RF: 0 methotrexate sodium (PF) 25 mg/mL solution 15 mg IM QWEEK RF: 0 (ASHLEY) krish Padilla See Rx Instructions .ROUTE .MEDSUPPLY Qty: 1 RF: 0 albuterol sulfate [ProAir HFA] 90 mcg/actuation HFA aerosol inhaler 2 puff inhalation Q4-6H PRNRF: 0 peg 3350-electrolytes [Golytely] 236-22.74-6.74 -5.86 gram recon soln 240 ml PO Q10M 1 Days Qty: 4000 RF: 0 sucralfate [Carafate] 1 gram tablet 2 g PO DAILY 30 Days Qty: 60 RF: 3 Referrals: Angel Pablo MD [Primary Care Provider] - 3 days
[2021-05-23 12:14] LABS: MANUAL DIFF FLAG NO
[2021-05-23 12:18] LABS: Basophils Percent Auto 0.3 % (0-2); Eosinophils Absolute Auto 0.1 X10*3/uL (0.0-0.4); Eosinophils Percent Auto 1.1 % (0-4); Hematocrit 33.8 % (37.0-47.0); Hemoglobin 11.8 g/dl (12.0-16.0); Imm Gran Abs Auto 0.03 X10*3/uL (0.00-0.03); Imm Gran Pct Auto 0.5 % (0.0-0.4); Lymphocytes Absolute Auto 1.4 X10*3/uL (1.2-4.9); Lymphocytes Percent Auto 22.7 % (20-40); Mean Corpuscular HGB Conc 34.9 g/dl (31.0-35.0); Mean Corpuscular Hemoglobin 32.3 pg (27.0-33.0); Mean Corpuscular Volume 92.6 fL (80.0-98.0); Mean Platelet Volume 11.1 fL (9.4-12.3); Monocytes Absolute Auto 0.6 X10*3/uL (0.1-1.2); Monocytes Percent Auto 10.1 % (2-11); Neutrophils Percent Auto 65.3 % (45-73); Platelet Count 117 X10*3/uL (160-400); Red Blood Count 3.65 X10*6/uL (4.20-5.50); Red Cell Distribution Width 13.3 % (11.0-16.0); White Blood Count 6.1 X10*3/uL (4.8-10.8)
[2021-05-23 12:34] LABS: Anion Gap 19 (12-20); Blood Urea Nitrogen 31 mg/dL (9-16); Calcium 8.8 mg/dL (8.4-10.2); Carbon Dioxide 20 mmol/L (22-29); Chloride 104 mmol/L (96-108); Creatinine Clr Calc Pharmacy 45.1; Estimated Glomerular Filt Rate 55; Glucose Random 114 mg/dL (60-115); Sodium 139 mmol/L (135-145)
--- NOTE | 2021-05-23 12:52 | PC.NURSE ---
pt's son (jamal [phone]) called [facility] for an updated status on pt. he states that pt has not been eating and drinking with n/v/d
[2021-05-23 13:30] VITALS: BP 131/76; PULSE 74; RESP 18; TEMP 37.1; O2SAT 96
[2021-05-23] MEDS: 0.9 % Sodium Chloride 1,000 ML 999 ML IVCONT ×2 (13:36→15:32)
[2021-05-23] MEDS: ondansetron HCL 4 MG/2 ML VIAL IVPUSH (13:36)
--- NOTE | 2021-05-23 15:33 | PC.NURSE ---
Second liter started. Son Miky to cloth picker pt in 1 hour
[2021-05-23 16:51] VITALS: BP 144/79; PULSE 77; RESP 19; O2SAT 97
== END 2021-05-23 16:51 | disposition home or self-care (01) ==
PROVIDERS: Emergency Provider Emergency Medicine; PCP Internal Medicine
DX: U07.1 COVID-19 (principal); R11.2 Nausea with vomiting, unspecified; R19.7 Diarrhea, unspecified; Z79.899 Other long term (current) drug therapy
CPT/HCPCS: 36415; 71046; 80048; 85025; 96361; 96374; 99284; J2405

== ENCOUNTER 2021-07-06 11:17 | Outpatient (REF) | payer MEDICARE, SELFPAY ==
[2021-07-06 12:03] LABS: MANUAL DIFF FLAG NO
[2021-07-06 12:16] LABS: Basophils Absolute Auto 0.1 X10*3/uL (0.0-0.2); Basophils Percent Auto 1.2 % (0-2); Eosinophils Absolute Auto 0.3 X10*3/uL (0.0-0.4); Eosinophils Percent Auto 3.9 % (0-4); Hematocrit 33.4 % (37.0-47.0); Hemoglobin 11.5 g/dl (12.0-16.0); Imm Gran Abs Auto 0.02 X10*3/uL (0.00-0.03); Imm Gran Pct Auto 0.3 % (0.0-0.4); Lymphocytes Absolute Auto 1.5 X10*3/uL (1.2-4.9); Lymphocytes Percent Auto 19.9 % (20-40); Mean Corpuscular HGB Conc 34.4 g/dl (31.0-35.0); Mean Corpuscular Hemoglobin 32.2 pg (27.0-33.0); Mean Corpuscular Volume 93.6 fL (80.0-98.0); Mean Platelet Volume 10.4 fL (9.4-12.3); Monocytes Absolute Auto 0.4 X10*3/uL (0.1-1.2); Monocytes Percent Auto 4.8 % (2-11); Neutrophils Absolute Auto 5.2 x10*3/uL (2.0-8.3); Neutrophils Percent Auto 69.9 % (45-73); Platelet Count 248 X10*3/uL (160-400); Red Blood Count 3.57 X10*6/uL (4.20-5.50); Red Cell Distribution Width 14.1 % (11.0-16.0); White Blood Count 7.5 X10*3/uL (4.8-10.8)
[2021-07-06 12:21] LABS: Estimated Average Glucose 100 mg/dL; Hemoglobin A1c % 5.1 %
[2021-07-06 12:53] LABS: Alanine Aminotransferase 30 U/L (0-31); Albumin Level 4.3 g/dL (3.5-5.0); Alkaline Phosphatase 67 U/L (39-117); Anion Gap 9 (12-20); Aspartate Amino Transferase 21 U/L (5-31); Bilirubin Total 0.5 mg/dL (0.0-1.0); Blood Urea Nitrogen 21 mg/dL (9-16); C Reactive Protein 0.29 mg/dL (< or = 0.50); Calcium 9.3 mg/dL (8.4-10.2); Carbon Dioxide 26 mmol/L (22-29); Chloride 110 mmol/L (96-108); Estimated Glomerular Filt Rate 57; Glucose Random 135 mg/dL (60-115); Potassium 4.2 mmol/L (3.3-5.1); Sodium 141 mmol/L (135-145); Total Protein 6.8 g/dL (6.5-8.0)
[2021-07-06 12:56] LABS: Erythrocyte Sedimentation Rate 9 MM/HR (0-20)
== END 2021-07-06 11:18 | disposition home or self-care (01) ==
LOC: HO.LAB 11:17
PROVIDERS: Nurse Practitioner Family; PCP Internal Medicine; Visit Provider Internal Medicine
DX: E11.9 Type 2 diabetes 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s (principal); J45.909 Unspecified asthma, uncomplicated; M06.09 Rheumatoid arthritis without rheumatoid factor, multiple sites
CPT/HCPCS: 36415; 80053; 83036; 85025; 85652; 86140

== ENCOUNTER → 2021-07-25 09:37 | Outpatient (BNVA) | payer MEDICARE, SELFPAY | PROVIDERS: PCP Internal Medicine; Visit Provider Internal Medicine | DX: M06.09 Rheumatoid arthritis without rheumatoid factor, multiple sites (principal); M85.80 Other specified disorders of bone density and structure, unspecified site; J45.909 Unspecified asthma, uncomplicated; J30.9 Allergic rhinitis, unspecified; R06.00 Dyspnea, unspecified; Z79.899 Other long term (current) drug therapy | CPT/HCPCS: 99212 ==

== ENCOUNTER → 2021-08-05 10:32 | Outpatient (BNVA) | payer MEDICARE, SELFPAY | PROVIDERS: PCP Internal Medicine; Referring Provider Internal Medicine; Visit Provider Nurse Practitioner | DX: K91.5 Postcholecystectomy syndrome (principal); K21.9 Gastro-esophageal reflux disease without esophagitis; R13.10 Dysphagia, unspecified | CPT/HCPCS: 99212 ==

== ENCOUNTER 2021-09-01 09:16 | Outpatient (REF) | payer MEDICARE, SELFPAY ==
--- NOTE | ~2021-09-01 | MM_ITS ---
EXAMINATION: MM SCREENING DIGITAL BREAST TOMOSYNTHESIS, BILATERAL CLINICAL INFORMATION: Screening. Asymptomatic. The lifetime risk of breast cancer based on the Tyrer-Cuzick Model is 2%. COMPARISON: Mammography: 08/27/2020, 05/15/2019, 01/15/2018 TECHNIQUE: Digital breast tomosynthesis is performed in both the craniocaudal and mediolateral oblique views along with computer-aided detection (CAD). Synthesized 2D images are generated from the tomosynthesis. Additional right MLO view is provided. FINDINGS: There are scattered areas of fibroglandular density (ACR BI-RADS breast composition Category b). Parenchymal pattern is similar to prior studies. There is no interval mass or architectural abnormality or abnormal calcifications. No developing density. The axilla and skin contours are unremarkable. Again, there are scattered round and vascular calcifications. Biopsy clip marker again seen left breast upper outer quadrant. There are some calcifications adjacent to the clip, slightly coarser from prior study. MM/MM tomosynthesis screening BI IMPRESSION: There are no significant changes from prior study. ASSESSMENT: BI-RADS 2: Benign RECOMMENDATION: Routine annual mammography screening. This patient's information was entered into a reminder system with a target due date for their next mammogram.
== END 2021-09-01 09:17 | disposition home or self-care (01) ==
LOC: HO.MAMMO 09:16
PROVIDERS: PCP Internal Medicine; Visit Provider Internal Medicine
DX: Z12.31 Encounter for screening mammogram for malignant neoplasm of breast (principal)
CPT/HCPCS: 77063; 77067

== ENCOUNTER 2021-09-05 09:20 | Day surgery (SDC) | payer MEDICARE, SELFPAY ==
--- NOTE | 2021-09-02 10:00 | HO.ANESPROP2 ---
Documented by User: Xochilt Ordonez NP 09/02/21 10:01 HPI - Anesthesia Eval Consult details Narrative: 70yo F for Upper Endoscopy and Colonoscopy Methotrexate weekly for RA PMFSH Active Problems Active Problems: All Active Problems (Updated 08/30/21 @ 16:24 by Caitie Milton RN) Anemia (Chronic) Rheumatoid arthritis (Acute) Osteopenia (Acute) Rotator cuff tendinitis (Acute) Screening for colon cancer (Acute) Adult general medical exam (Acute) Post-cholecystectomy syndrome (Acute) Tubular adenoma of colon (Acute) COVID (Acute) Dysphagia (Acute) Asthma (Acute) Polyarthralgia (Acute) Dyspnea on exertion (Acute) Allergic rhinitis (Acute) Bronchitis (Acute) Asthma exacerbation (Acute) Cough variant asthma (Acute) DJD (degenerative joint disease) (Acute) Decreased hearing (Acute) GERD (gastroesophageal reflux disease) (Acute) Type 2 diabetes 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s (Acute) Past Medical History Medical History Allergic rhinitis Asthma Asthma exacerbation Bronchitis Cough variant asthma COVID-19 Decreased hearing DJD (degenerative joint disease) Dysphagia Dyspnea on exertion GERD (gastroesophageal reflux disease) Laryngopharyngeal reflux (LPR) Polyarthralgia Post-menopausal Rheumatoid arthritis Spinal stenosis TIA (transient ischemic attack) Type 2 diabetes 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s Family History Family History Father CVD (cardiovascular disease) Diabetes Mother Diabetes Sister No problems noted. Other Substance use disorder Surgical History Surgical History History of colonoscopy Hx of cholecystectomy Hx of hysterectomy Hx of tonsillectomy Social History Social History Are you a primary patient care director to a significant other at home: No Do you presently have visiting nurse or other home services: No Alcohol intake: never Patient Tobacco Use Status: Never used Tobacco Have you been hit, kicked, punched, or otherwise hurt by someone within the past year? If so, by whom?: No Are you DNR?: No Advance Directives: No Advance Directives Information Provided: Yes Recently lost weight without trying: No Nutrition Risks: No Nutritional Risk Patient : No Poor oral hygiene: No Meds Allergies Allergy/AdvReac Type Severity Reaction Status Date / Time duloxetine Allergy Severe LOOPY Verified 08/05/21 10:37 codeine [CODEINE] Allergy Intermediate GI UPSET Verified 08/05/21 10:37 doxycycline [DOXYCYCLINE] Allergy Intermediate RASH Verified 08/05/21 10:37 Sulfa (Sulfonamide Allergy Intermediate Hives Verified 08/05/21 10:37 Antibiotics) [SULFA (SULFONAMIDE ANTIBIOTICS)] Home Medications Medication Instructions Recorded Confirmed Last Taken Type blood sugar diagnostic #10 ea 06/28/20 07/25/21 Unknown History clopidogrel 75 mg tablet 75 mg PO DAILY 06/28/20 08/30/21 Unknown History lamotrigine 25 mg tablet 50 mg PO DAILY 06/28/20 08/30/21 Unknown History aspirin 81 mg tablet,delayed 81 mg PO DAILY 08/26/20 08/30/21 Unknown History release cholecalciferol (vitamin D3) 50 50 mcg PO DAILY 08/26/20 08/30/21 Unknown History mcg (2,000 unit) capsule methotrexate sodium (PF) 25 mg/mL 15 mg IM QWEEK ml 11/12/20 08/30/21 Unknown History injection solution albuterol sulfate 90 mcg/actuation 2 puff INHALATION Q4-6H PRN 01/18/21 08/30/21 Unknown History aerosol inhaler (ProAir HFA) gabapentin 600 mg tablet 600 mg PO Q8H tab 06/29/21 08/30/21 Unknown History Exam Exam Date and Time: September 02, 2021 1000 Pertinent Lab Results Pertinent Lab Results: Laboratory Tests 07/06/21 07/06/21 12:01 12:01 WBC 7.5 Hgb 11.5 L Hct 33.4 L Plt Count 248 Sodium 141 Potassium 4.2 Chloride 110 H Carbon Dioxide 26 BUN 21 H Creatinine 0.97 Assessment and Plan Assessment Anesthesia Assessment: Chart Reviewed Documented by User: Meghann Campbell MD 09/05/21 10:56 PMFSH Past Medical History Medical History Allergic rhinitis Asthma Asthma exacerbation Bronchitis Cough variant asthma COVID-19 Decreased hearing DJD (degenerative joint disease) Dysphagia Dyspnea on exertion GERD (gastroesophageal reflux disease) Laryngopharyngeal reflux (LPR) Polyarthralgia Post-menopausal Rheumatoid arthritis Spinal stenosis TIA (transient ischemic attack) Type 2 diabetes 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s Family History Family History Father CVD (cardiovascular disease) Diabetes Mother Diabetes Sister No problems noted. Other Substance use disorder Surgical History Surgical History History of colonoscopy Hx of cholecystectomy Hx of hysterectomy Hx of tonsillectomy History of Problems with Anesthesia: No Social History Social History Are you a primary patient care director to a significant other at home: No Do you presently have visiting nurse or other home services: No Alcohol intake: never Patient Tobacco Use Status: Never used Tobacco Have you been hit, kicked, punched, or otherwise hurt by someone within the past year? If so, by whom?: No Are you DNR?: No Advance Directives: No Advance Directives Information Provided: Yes Recently lost weight without trying: No Nutrition Risks: No Nutritional Risk Patient : No Poor oral hygiene: No Meds Allergies Allergy/AdvReac Type Severity Reaction Status Date / Time duloxetine Allergy Severe LOOPY Verified 08/05/21 10:37 codeine [CODEINE] Allergy Intermediate GI UPSET Verified 08/05/21 10:37 doxycycline [DOXYCYCLINE] Allergy Intermediate RASH Verified 08/05/21 10:37 Sulfa (Sulfonamide Allergy Intermediate Hives Verified 08/05/21 10:37 Antibiotics) [SULFA (SULFONAMIDE ANTIBIOTICS)] Home Medications Medication Instructions Recorded Confirmed Last Taken Type blood sugar diagnostic #10 ea 06/28/20 07/25/21 Unknown History clopidogrel 75 mg tablet 75 mg PO DAILY 06/28/20 08/30/21 Unknown History lamotrigine 25 mg tablet 50 mg PO DAILY 06/28/20 08/30/21 Unknown History aspirin 81 mg tablet,delayed 81 mg PO DAILY 08/26/20 08/30/21 Unknown History release cholecalciferol (vitamin D3) 50 50 mcg PO DAILY 08/26/20 08/30/21 Unknown History mcg (2,000 unit) capsule methotrexate sodium (PF) 25 mg/mL 15 mg IM QWEEK ml 11/12/20 08/30/21 Unknown History injection solution albuterol sulfate 90 mcg/actuation 2 puff INHALATION Q4-6H PRN 01/18/21 08/30/21 Unknown History aerosol inhaler (ProAir HFA) gabapentin 600 mg tablet 600 mg PO Q8H tab 06/29/21 08/30/21 Unknown History Exam Airway Mallampati Class: II TM Dist: >3cm Neck ROM: Full Loose/Missing/Broken Teeth: No Heart: RRR Lungs: CTA Assessment and Plan Final Anesthetic Review History of Problems with Anesthesia: No NPO: Yes ASA Class: III Final Preanesthetic Review: Meds/Allgs Chart Reviewed, Consent Obtained/Reviewed and Anes Risks/Benef Reviewed Patient Risk: Intermediate Procedure Risk: Intermediate Anesthetic Plan Anesthetic Plan: MAC: Disposition: Standard PACU
--- NOTE | 2021-09-05 10:11 | MHC.SHP ---
Pre-Procedural Eval Section A Date of Service: 09/05/21 Section B Chief Complaint: screening, Dysphagia, Anemia Details of Present Illness: Colon cancer screening, history of colon polyps, dysphagia Relevant Family History (Specify if Yes): Yes Relevant Social History: None Present Medications: see Short Stay Collaborative assessment Medical History: Significant History (Allergic rhinitis Asthma Asthma exacerbation Bronchitis Cough variant asthma COVID-19 Decreased hearing DJD (degenerative joint disease) Dyspnea on exertion GERD (gastroesophageal reflux disease) Laryngopharyngeal reflux (LPR) Polyarthralgia Post-menopausal Type 2 diabetes 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 complicat) History of Previous Operations: Relevant previous surgery/procedure and date(s) (History of colonoscopy Hx of cholecystectomy Hx of hysterectomy Hx of tonsillectomy) Allergies: Allergies Allergy/AdvReac Type Severity Reaction Status Date / Time duloxetine Allergy Severe LOOPY Verified 08/05/21 10:37 codeine [CODEINE] Allergy Intermediate GI UPSET Verified 08/05/21 10:37 doxycycline [DOXYCYCLINE] Allergy Intermediate RASH Verified 08/05/21 10:37 Sulfa (Sulfonamide Allergy Intermediate Hives Verified 08/05/21 10:37 Antibiotics) [SULFA (SULFONAMIDE ANTIBIOTICS)] Review of Systems Sugical H&P ROS: Negative: Cardiovascular, Respiratory and Gastrointestinal and Yes, Specify: Constitution (obese) Exam Surgical H&P Exam: Normal: Heart, Normal: Lungs, Normal: Extremities and Normal: Abdomen Plan Diagnosis/Plan: Unchanged I have reviewed the history and physical and performed a pertinent physical examination on my patient. No changes have occurred unless specified.
--- NOTE | 2021-09-05 10:12 | PM.OP ---
Brief Operative Note Date of Service: 09/05/21 Pre-op diagnosis: Colon cancer screening, history of colon polyps, GERD, dysphagia Post-op diagnosis: other (GERD, dysphagia, gastritis, gastric nodule, colon polyps, diverticulosis) Procedure: FLEXIBLE TRANSORAL UPPER GASTROINTESTINAL ENDOSCOPY WITH BIOPSIES AND ESOPHAGEAL BALLOON DILATION AND COLONOSCOPY TILL CECUM WITH BIOPSIES UPPER ENDOSCOPY Consent: Indications for the procedure and potential complications of bleeding, perforation, reaction to medications and missed diagnosis were discussed with the patient and informed consent was obtained. Instrument: Olympus GIF H 190 mid size upper endoscope Monitoring: Vital signs and clinical assessment, continuous EKG monitoring, Pulse oximetry, Carbon Dioxide monitoring and blood pressure monitoring were done throughout the procedure. Procedure: The patient was placed in the left lateral decubitis position and pre-procedure medications were administered and a bite block was placed. The endoscope was inserted into the mouth and advanced under direct vision to the third part of duodenum. A careful inspection was made as the upper endoscope was withdrawn including a retroflexed examination of the proximal stomach; Findings and interventions are described below. Findings: Larynx: Edema of arytenoid cartilages Esophagus: Tortuous esophagus with increased tertiary contractions without stricture or ring. GE junction at 37 cms - a small 4-5 mm healing erosion at GEJ. A 1.5 cms benign appearing nodule/edematous fold on gastric side of GEJ - biopsied Esophageal balloon dilation was performed with a 20 mm (60 F) CRE balloon x 60 seconds Stomach: Mild gastric erythema. Biopsies were obtained. Grade 2 flap valve on retroflexed examination of the cardia. Duodenum: Normal bulb and descending duodenum Intervention: Biopsies and esophageal balloon dilation as noted above COLONOSCOPY PROCEDURE NOTE Consent: Indications for the procedure and potential complications of bleeding, perforation, reaction to medications and missed diagnosis were discussed with the patient and informed consent was obtained. Instrument: Olympus PCF H 190 L variable stiffness pediatric colonoscope Monitoring: Vital signs and clinical assessment, intermittent blood pressure monitoring, continuous EKG monitoring, Pulse oximetry and Carbon Dioxide monitoring were done throughout the procedure. Colon withdrawl time was 19 minutes. Procedure: The patient was placed in the left lateral decubitis position and pre-procedure medications were administered. After a digital rectal examination of the ano-rectum, the video colonoscope was inserted into the rectum and advanced through the colon to the cecum. The colonoscope was slowly withdrawn in a retrograde panoramic fashion and the colon mucosa was carefully examined including a retroflexed view of the rectum. Findings and interventions are described below. Procedure Difficulty: : Colon was long and tortuous and there was some loop formation. Patient was placed in the supine position to intubate the ascending colon/cecum Findings: Terminal Ileum: Not evaluated Cecum: Normal Ascending Colon: Normal Transverse Colon: Normal Descending Colon: Moderate diverticulosis Sigmoid Colon: A 4-5 mm sessile polyp in proximal TC (at 55 cms) removed with a cold bx. Moderate diverticulosis Rectum: Normal Ano-rectum: Normal Colon preparation: Excellent Impression and Post Procedure Diagnosis: Endoscopy Findings: LARYNX: Changes suggestive of LPRD ESOPHAGUS: Tortuous esophagus with increased tertiary contractions without stricture or ring. GE junction at 37 cms - a small 4-5 mm healing erosion at GEJ. A 1.5 cms benign appearing nodule/edematous fold on gastric side of GEJ - biopsied Esophageal balloon dilation was performed with a 20 mm (60 F) CRE balloon x 60 seconds STOMACH: Mild gastritis Colonoscopy Findings: One small polyp removed Moderate diverticulosis seen in the left colon Plan: Await pathology results Patient has an appointment on 09/19/21 in the GI Clinic with Tracey Goodwin NP. Repeat Colonoscopy interval based on path results - in 3-5 years if polyps are adenomatous and 10 years if polyps are hyperplastic. Above findings were reviewed with the patient and GERD, colon polyps and diverticulosis handouts were given in the discharge area Surgeon: Kameron Melendez MD Anesthesia: MAC Was an Chief Innovation Officer used for this Procedure?: No Chief Innovation Officer: Sabrina Gray Estimated blood loss (mL): 0 Pathology: other (a. small bowel bxs, R/O celiacb. gastric nodule c. antrum, r/o h pylori d. gastric body e. ge junction f. sigmoid polyp) Condition: stable Disposition: PACU
--- NOTE | 2021-09-05 10:13 | P.OP_ITS ---
Operative Note Operative Note Date of Service: 09/05/21 Narrative: Pre-op diagnosis: Colon cancer screening, history of colon polyps, GERD, dysphagia Post-op diagnosis:?other (GERD, dysphagia, gastritis, gastric nodule, colon polyps, diverticulosis) Procedure: FLEXIBLE TRANSORAL UPPER GASTROINTESTINAL ENDOSCOPY WITH BIOPSIES AND ESOPHAGEAL BALLOON DILATION AND COLONOSCOPY TILL CECUM WITH BIOPSIES UPPER ENDOSCOPY Consent:?Indications for the procedure and potential complications of bleeding, perforation, reaction to medications and missed diagnosis were discussed with the patient and informed consent was obtained. Instrument:?Olympus GIF H 190 mid size upper endoscope Monitoring: Vital signs and clinical assessment, continuous EKG monitoring, Pulse oximetry, Carbon Dioxide monitoring and blood pressure monitoring were done throughout the procedure. Procedure:?The patient was placed in the left lateral decubitis position and pre-procedure medications were administered and a bite block was placed. The endoscope was inserted into the mouth and advanced under direct vision to the third part of duodenum. A careful inspection was made as the upper endoscope was withdrawn including a retroflexed examination of the proximal stomach; Findings and interventions are described below. Findings: Larynx:? Edema of arytenoid cartilages Esophagus:?Tortuous esophagus with increased tertiary contractions without stricture or ring. GE junction at 37 cms - a small 4-5 mm healing erosion at GEJ. A 1.5 cms benign appearing nodule/edematous fold on gastric side of GEJ - biopsied Esophageal balloon dilation was performed with a 20 mm (60 F) CRE balloon x 60 seconds Stomach:?Mild gastric erythema. Biopsies were obtained. Grade 2 flap valve on retroflexed examination of the cardia. Duodenum:?Normal bulb and descending duodenum Intervention:?Biopsies and esophageal balloon dilation as noted above COLONOSCOPY PROCEDURE NOTE Consent:?Indications for the procedure and potential complications of bleeding, perforation, reaction to medications and missed diagnosis were discussed with the patient and informed consent was obtained. Instrument:?Olympus PCF H 190 L variable stiffness pediatric colonoscope Monitoring:?Vital signs and clinical assessment, intermittent blood pressure monitoring, continuous EKG monitoring, Pulse oximetry and Carbon Dioxide monitoring were done throughout the procedure. Colon withdrawl time was 19 minutes. Procedure:?The patient was placed in the left lateral decubitis position and pre-procedure medications were administered. After a digital rectal examination of the ano-rectum, the video colonoscope was inserted into the rectum and advanced through the colon to the cecum. The colonoscope was slowly withdrawn in a retrograde panoramic fashion and the colon mucosa was carefully examined including a retroflexed view of the rectum. Findings and interventions are described below. Procedure Difficulty:?:? Colon was long and tortuous and there was some loop formation.? Patient was placed in the supine position to intubate the ascending colon/cecum Findings: Terminal Ileum: Not evaluated Cecum:? Normal Ascending Colon:??Normal Transverse Colon:??Normal Descending Colon:? Moderate diverticulosis Sigmoid Colon:? A 4-5 mm sessile polyp in proximal TC (at 55 cms) removed with a cold bx. Moderate diverticulosis Rectum:??Normal Ano-rectum:??Normal Colon preparation: Excellent ? Impression and Post Procedure Diagnosis: Endoscopy Findings: LARYNX: Changes suggestive of LPRD ESOPHAGUS: Tortuous esophagus with increased tertiary contractions without stricture or ring. GE junction at 37 cms - a small 4-5 mm healing erosion at GEJ. A 1.5 cms benign appearing nodule/edematous fold on gastric side of GEJ - biopsied Esophageal balloon dilation was performed with a 20 mm (60 F) CRE balloon x 60 seconds STOMACH: Mild gastritis Colonoscopy Findings: One small polyp removed Moderate diverticulosis seen in the left colon Plan: Await pathology results Patient has an appointment on 09/19/21 in the GI Clinic with? Tracey Goodwin NP. Repeat Colonoscopy interval based on path results - in 3-5 years if polyps are adenomatous and 10 years if polyps are hyperplastic. Above findings were reviewed with the patient and GERD, colon polyps and diverticulosis handouts were given in the discharge area Surgeon: Kameron Melendez MD Anesthesia:?MAC Was an Compliance Coordinator used for this Procedure?:?No Compliance Coordinator:?Sabrina Gray Estimated blood loss (mL):?0 Pathology:?other (a. small bowel bxs, R/O celiacb. gastric nodule? c. antrum, r/o h pylori? d. gastric body? e. ge junction? f. sigmoid polyp) Condition:?stable Disposition:?PACU
[2021-09-05 10:23] VITALS: BMI 36.2
[2021-09-05 10:26] VITALS: BP 115/49; PULSE 74; RESP 18; TEMP 37.1; O2SAT 97
[2021-09-05 10:35] LABS: Glucose, Whole Blood 112 mg/dL (60-115)
[2021-09-05] MEDS: Lactated Ringers 1,000 ML 100 ML IVCONT (10:41)
[2021-09-05 10:44] VITALS: BMI 36.2
[2021-09-05 11:58] VITALS: BP 117/55; PULSE 67; RESP 18; TEMP 36.7; O2SAT 100
[2021-09-05 12:13] VITALS: BP 127/58; PULSE 72; RESP 18; TEMP 36.7; O2SAT 99
== END 2021-09-05 12:45 | disposition home or self-care (01) ==
PROVIDERS: PCP Internal Medicine; Visit Provider Internal Medicine Gastroenterology
PROC: (CPT 45380; principal; 2021-09-05 11:00)
DX: Z12.11 Encounter for screening for malignant neoplasm of colon (principal); Z86.010 Personal history of colon polyps; K63.5 Polyp of colon; K57.30 Diverticulosis of large intestine without perforation or abscess without bleeding; R19.7 Diarrhea, unspecified; D64.9 Anemia, unspecified; R13.10 Dysphagia, unspecified; K22.89 Other specified disease of esophagus; K21.9 Gastro-esophageal reflux disease without esophagitis; K20.90 Esophagitis, unspecified without bleeding; K31.7 Polyp of stomach and duodenum; K91.5 Postcholecystectomy syndrome; I10 Essential (primary) hypertension; E11.9 Type 2 diabetes 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s; J45.909 Unspecified asthma, uncomplicated; Z88.2 Allergy status to sulfonamides; Z88.8 Allergy status to other drugs, medicaments and biological substances; Z90.49 Acquired absence of other specified parts of digestive tract
CPT/HCPCS: 45380; 43249; 43239; 82947; 88305; 88342; C1726

== ENCOUNTER → 2021-09-23 09:37 | Outpatient (BNVA) | payer MEDICARE, SELFPAY | PROVIDERS: PCP Internal Medicine; Referring Provider Internal Medicine; Visit Provider Nurse Practitioner | DX: K21.9 Gastro-esophageal reflux disease without esophagitis (principal); K22.10 Ulcer of esophagus without bleeding | CPT/HCPCS: 99212 ==

== ENCOUNTER 2021-09-29 10:14 | Outpatient (REF) | payer MEDICARE, SELFPAY ==
[2021-09-29 11:43] LABS: MANUAL DIFF FLAG NO
[2021-09-29 12:05] LABS: Basophils Absolute Auto 0.1 X10*3/uL (0.0-0.2); Basophils Percent Auto 0.7 % (0-2); Eosinophils Absolute Auto 0.1 X10*3/uL (0.0-0.4); Eosinophils Percent Auto 1.4 % (0-4); Hematocrit 33.4 % (37.0-47.0); Hemoglobin 11.7 g/dl (12.0-16.0); Imm Gran Abs Auto 0.05 X10*3/uL (0.00-0.03); Imm Gran Pct Auto 0.5 % (0.0-0.4); Lymphocytes Absolute Auto 1.2 X10*3/uL (1.2-4.9); Lymphocytes Percent Auto 11.6 % (20-40); Mean Corpuscular Hemoglobin 32.9 pg (27.0-33.0); Mean Corpuscular Volume 93.8 fL (80.0-98.0); Mean Platelet Volume 10.4 fL (9.4-12.3); Monocytes Absolute Auto 0.5 X10*3/uL (0.1-1.2); Monocytes Percent Auto 4.7 % (2-11); Neutrophils Absolute Auto 8.4 x10*3/uL (2.0-8.3); Neutrophils Percent Auto 81.1 % (45-73); Platelet Count 273 X10*3/uL (160-400); Red Blood Count 3.56 X10*6/uL (4.20-5.50); Red Cell Distribution Width 13.6 % (11.0-16.0); White Blood Count 10.3 X10*3/uL (4.8-10.8)
[2021-09-29 12:36] LABS: Alanine Aminotransferase 53 U/L (0-31); Albumin Level 4.4 g/dL (3.5-5.0); Alkaline Phosphatase 69 U/L (39-117); Anion Gap 17 (12-20); Aspartate Amino Transferase 25 U/L (5-31); Bilirubin Total 0.6 mg/dL (0.0-1.0); Blood Urea Nitrogen 25 mg/dL (9-16); C Reactive Protein 0.24 mg/dL (< or = 0.50); Calcium 9.9 mg/dL (8.4-10.2); Carbon Dioxide 24 mmol/L (22-29); Chloride 105 mmol/L (96-108); Estimated Glomerular Filt Rate 49; Glucose Random 143 mg/dL (60-115); Potassium 4.5 mmol/L (3.3-5.1); Sodium 141 mmol/L (135-145); Total Protein 6.8 g/dL (6.5-8.0)
[2021-09-29 12:51] LABS: Erythrocyte Sedimentation Rate 9 MM/HR (0-20)
== END 2021-09-29 10:15 | disposition home or self-care (01) ==
LOC: HO.LAB 10:14
PROVIDERS: PCP Internal Medicine; Visit Provider Nurse Practitioner Family
DX: M06.09 Rheumatoid arthritis without rheumatoid factor, multiple sites (principal); M85.80 Other specified disorders of bone density and structure, unspecified site
CPT/HCPCS: 36415; 80053; 85025; 85652; 86140; 99212

== ENCOUNTER 2021-10-07 09:53 | Outpatient (REF) | payer MEDICARE, SELFPAY ==
--- NOTE | ~2021-10-07 | FL_ITS ---
EXAMINATION: XR BARIUM SWALLOW CLINICAL INFORMATION: Dysphasia COMPARISON: None TECHNIQUE: Modified barium swallow with speech pathologist FINDINGS: Patient swallowed multiple consistencies from thin liquid to barium coated cookie. With thin liquid only there is noted to be laryngeal penetration without tracheal aspiration. On other consistencies no abnormality was appreciated. Please refer to speech pathology report for details. FLUOROSCOPY TIME: 1.5 minutes DOSE AREA PRODUCT: 1.172 Gy-cm2 (hdez-centimeter squared) FL/FL barium swallow modified IMPRESSION: Laryngeal penetration with thin liquid. No evidence of tracheal aspiration.
== END 2021-10-07 09:54 | disposition home or self-care (01) ==
LOC: HO.XRAY 09:53
PROVIDERS: Visit Provider Nurse Practitioner
DX: R13.10 Dysphagia, unspecified (principal)
CPT/HCPCS: 74230; 92611

== ENCOUNTER 2021-10-19 11:23 | Outpatient (REF) | payer MEDICARE, SELFPAY ==
--- NOTE | 2021-10-25 10:15 | MHC.AU.ANO ---
Adult Audiological Evaluation Date of Visit: 10/19/21 Forwarder Operator Used: Not Applicable Reason for Appointment: Audiologic re-evaluation due to question of increasing hearing difficulties. Kriss reports others have noticed she is asking for speech to be repeated more often and she is now using headphones when watching television to understand the dialog better. Has hearing been tested previously?: Yes Previous Hearing Test Results: 07/20/2020 [facility] Borderline normal hearing thresholds 250 and 500 Hz, dropping to a moderately-severe high frequency sensorineural hearing loss with 72% speech understanding for the right ear and 76% for the left ear at 70 dB HL. 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 Also has a history of rheumatoid arthritis and sinus infections. Allergies: Sulfa, Codeine, Cymbalta, Doxycycline Medication List: Lantus solostar, Humalog, Methotrexate injection, Plaquene, Gabapentin, Lamotrigine, Atorvastatin, Lisinopril, Hydrochlorothiazide, Clopidogrel, Sucralate, Folic Acid, Vitamin D, Iron, Aspirin, Ferrous Gluconate, Lidocaine patch Otoscopy: Right Ear: Unremarkable Left Ear: Unremarkable Tympanometry: Tympanometry performed due to: History of middle ear dysfunction Right Ear: Non-compliant Middle Ear System (Type B) Left Ear: Reduced Middle Ear Compliance (Type As) Hearing Evaluation: Transducer(s) Used: Insert Earphones Bone Conduction Method: Conventional Audiometry Stimuli Used: Pure Tones Right Ear: Description of Hearing: Borderline normal thresholds at 250 and 500 Hz, dropping to a moderately-severe sensorineural hearing loss. Left Ear: Description of Hearing: Borderline normal thresholds at 250 and 500 Hz, dropping to a moderately-severe sensorineural hearing loss. Speech Recognition Threshold (SRT): Method Used: Monitored Live Voice Stimuli Used: Spondee Words Right Ear: 30 dB HL Left Ear: 35 dB HL Word Discrimination: Method: Recorded Lists Word Lists Used: NU-6 Right Ear: 76% at 75 dB HL Left Ear: 72% at 75 dB HL Most Comfortable Level (MCL): Right Ear: 75 dB HL Left Ear: 75 dB HL Comparison: Compared to most recent evaluation: Left ear thresholds at 1500 and 2000 Hz have decreased 10-15 dB with all other thresholds and speech understanding being stable, both ears. Recommendations: Trial with amplification is recommended. Medical clearance from a physician is required before fitting. If interested in trying hearing aids, Kriss is advised to schedule a Hearing Aid Evaluation appointment within 6 months. Audiological re-evaluation in one year. Will send a reminder card. Diagnosis: Primary Diagnosis: H90.3 Bilateral Sensorineural Hearing Loss Secondary Diagnosis: H93.13 Tinnitus, Bilateral Services Performed: Comprehensive Audiological Evaluation (CPT 47669) Tympanometry (CPT 90307) Signature: Provider: Tyron Griggs, CCC-A
--- NOTE | 2021-10-25 10:21 | MHC.AU.MED ---
Medical Clearance for Hearing Instrumentation Date: 10/25/21 Patient Name: Kriss Jackson Date of : 1950 Primary Care Provider: Referring Provider: Angel Pablo MD We have seen your patient on 10/25/21 and have determined that they are a candidate for amplification (See accompanying report). Specifically, they would benefit from: Hearing aid use in both ears There is a statute that addresses Medical Evaluation Requirements prior to fitting a patient with a hearing aid. According to [place] statute 265 CMR:6.03(1), (a) General. Except as provided in 265 CMR 6.03(1)(b), a net making supervisor shall not sell a hearing aid unless the prospective user has presented to the net making supervisor a written statement signed by a licensed physician that states that the patient's hearing loss has been medically evaluated and the patient may be considered a candidate for a hearing aid. The medical evaluation must have taken place within the preceding six months. Please note: Due to the [place] Statute referenced above, we cannot accept a signature other than that of a licensed physician. SPECIFICATIONS WRITER and PA signatures cannot be accepted. I am in agreement with the above recommendation. There is no medical contraindication for hearing instrumentation. Physician Signature Date Physician Name (Printed)
== END 2021-10-19 11:24 | disposition home or self-care (01) ==
LOC: HO.SH 11:23
PROVIDERS: Visit Provider Internal Medicine
DX: Z01.118 Encounter for examination of ears and hearing with other abnormal findings (principal); H90.3 Sensorineural hearing loss, bilateral; H93.13 Tinnitus, bilateral
CPT/HCPCS: 92557; 92567

== ENCOUNTER → 2021-11-01 09:21 | Outpatient (BNVA) | payer MEDICARE, SELFPAY | PROVIDERS: PCP Internal Medicine; Referring Provider Internal Medicine; Visit Provider Nurse Practitioner | DX: K22.10 Ulcer of esophagus without bleeding (principal); K21.9 Gastro-esophageal reflux disease without esophagitis; R13.11 Dysphagia, oral phase | CPT/HCPCS: 99212 ==

== ENCOUNTER 2021-11-07 15:12 | Outpatient (REF) | payer MEDICARE, SELFPAY ==
[2021-11-07 16:42] LABS: Alanine Aminotransferase 28 U/L (0-31); Albumin Level 4.3 g/dL (3.5-5.0); Alkaline Phosphatase 66 U/L (39-117); Anion Gap 14 (12-20); Aspartate Amino Transferase 25 U/L (5-31); Bilirubin Total 0.6 mg/dL (0.0-1.0); Blood Urea Nitrogen 21 mg/dL (9-16); Calcium 9.8 mg/dL (8.4-10.2); Carbon Dioxide 24 mmol/L (22-29); Chloride 106 mmol/L (96-108); Estimated Glomerular Filt Rate 52; Glucose Random 151 mg/dL (60-115); Potassium 4.5 mmol/L (3.3-5.1); Sodium 139 mmol/L (135-145); Total Protein 6.8 g/dL (6.5-8.0)
== END 2021-11-07 15:13 | disposition home or self-care (01) ==
LOC: HO.LAB 15:12
PROVIDERS: PCP Internal Medicine; Visit Provider Nurse Practitioner Family
DX: M06.09 Rheumatoid arthritis without rheumatoid factor, multiple sites (principal)
CPT/HCPCS: 36415; 80053

== ENCOUNTER 2021-11-09 09:00 | Outpatient (RCR) | payer MEDICARE, SELFPAY ==
--- NOTE | 2021-10-24 15:29 | MHC.OT.OEV ---
[address] [phone] F: [phone] Occupational Therapy Evaluation Diagnosis: Rheumatoid Arthritis without rheumatoid factor. Osteoarthritis Pain in right hand Pain in left hand Date of Onset: 09/23/20 Date of Surgery: Attending Provider: Barbie Yeung PA-C Prescribed Treatment: Eval and treat MD Follow Up Appointment: History of Current Condition: Pt with a ho RA and OA ,reports worsening of bilateral hand pain History taken from chart Patient reports that overall her RA is stable. She reports bilateral hand pain that comes and goes. Pain is present with use. She states that some days her hands are swollen, she does some knitting to keep her hands moving, swelling is improved with a compression glove. She reports that she is having more trouble holding things and notices that she is dropping items. Significant Medical History: Allergic rhinitis Asthma Asthma exacerbation Bronchitis Cough variant asthma COVID-19 Decreased hearing DJD (degenerative joint disease) Dysphagia Dyspnea on exertion GERD (gastroesophageal reflux disease) Laryngopharyngeal reflux (LPR) Polyarthralgia Post-menopausal Rheumatoid arthritis Spinal stenosis TIA (transient ischemic attack) Type 2 diabetes 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s Precautions/Contraindications: Patient Goals: To continue to knit and magno Hand Dominance: Left Observations: QuickDASH Score: 31 Prior Level of Function and Occupation Self Care, Employment, Leisure: Difficulty with housekeeping due to LBP, paces activity, 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 Son and family live on 1st floor Provides assist as needed and supper Current Level of Function and Occupation Self Care, Employment, Leisure: Inc pain and need for pacing activity Inc frequency of dropping things Sleep: No difficulty due to hands Driving: No difficulty with driving Vision: Glasses Balance: Owns a cane Pain Assessment Pain Score: 5 Pain Scale Used: Numeric (0 - 10) Pain Location and Description: Bilateral hands IPj D1-5 Ache ,burning. 1-5/10 Aggravating Factors: Gripping Alleviating Factors: Resting hands Skin and Soft Tissue Assessment Skin and Soft Tissue: Contracture Other Comments: Bilateral Heberdan nodes and Kiersten nodes OA jt changes Digit pads with marking from testing blood sugar Nerve assessment Ulnar Nerve: WNL Median Nerve: WNL Radial Nerve: WNL Comments: MMT with pain Sensory Assessment Temperature: Light Touch: WFL Proprioception: Vibration: Comments: Bilateral digits 1-5 diminished light touch with Boron Jolie Monofilaments Edema Assessment Upper Extremity: WNL Lower Extremity: Comments: Dexterity Assessment Dexterity: B/L Impaired Comments: 9 Hole Peg test R 25 sec L 29 sec .. achy on left dominant Special Tests Comments: AROM(PROM) Strength Cervical Cervical Flexion: Cervical Extension: Cervical Lateral Flexion: Cervical Rotation: Comments: Shoulder Flexion: Extension: Abduction: Internal Rotation: External Rotation: Comments: Flexion: Extension: Abduction: Internal Rotation: External Rotation: Comments: Elbow Flexion: Extension: Pronation: Supination: Comments: Flexion: Extension: Pronation: Supination: Comments: Wrist Flexion: Extension: Ulnar Deviation: Radial Deviation: Comments: Flexion: Extension: Ulnar Deviation: Radial Deviation: Comments: Thumb Thumb CMC Flexion: Thumb MCP Flexion: Thumb IP Flexion: Radial Abduction: Palmar Abduction: Brundidge (Kapandji 0-10): R 9 L 8 Comments: WFL Digits Index MCP: PIP: R 85 L 85 DIP: R 60 L 45 Long MCP: PIP: R 95 L 70 DIP: R 75 L 55 Ring MCP: PIP: R 85 L 80 DIP: R 60 L 55 Small MCP: PIP: R 85 L 75 DIP: R 55 L 55 Comments: Digit distance to palm D3-5 0 cm D2 1 cm Gross Grasp: R 25 lb L 20 Lateral Pinch: Two-Point Pinch: Three-Jaw Sang: Comments: Patient Education Primary Language: [place] Hemming And Tacking Machine Operator Required: No Current Knowledge: Minimal, needs reinforcement Teaching Method: Demonstration Handouts Verbal Education Needs Identified on Evaluation: Exercise How did patient/family demonstrate learning? Patient demonstrates Patient verbalizes Barriers to Learning: None Readiness for Learning: Accepting Who was educated? Patient Comments: Plan of Care Assessment: Pt is a 70 yo female with complicated medical history including a diagnosis of well managed RA and recent worsening of OA hand pain and inc frequency of dropping things with the left dominant hand > the right. Today she present with bilateral digit stiffness and bilateral hand weakness. Light touch sensation is WFL with diminished light touch sensation at bilateral digits 1-5. 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 Frequency and Duration: The patient will be seen 2x wk x 4 wks Treatment Plan: Therapeutic Exercise Therapeutic Activity Home Exercise Program Splinting Patient Education ADL Training Ultrasound Paraffin MHP Electronically Signed By: Na James OT CHT CLT Reviewed/agree with student documentation: N/A Therapist: Please sign and return to therapist, Thank you for your referral.
--- NOTE | 2021-11-09 10:24 | MHC.OT.DC ---
[address] [phone] F: [phone] Occupational Therapy Discharge Note Provider: Barbie Yeung PA-C Diagnosis: Rheumatoid Arthritis without rheumatoid factor. Osteoarthritis Pain in right hand Pain in left hand Date of Surgery: Date of Evaluation: 10/24/21 Date of Discharge: Treatments to Date: 5 Cancellations to Date: 0 No Shows to Date: 0 Discharge Status: Achieved Goals Improved Function Independent with HEP Discharge Summary: Goals met for bilateral hand pain, ROM , pharmacology teacher strength and self management techniques Pt has started using a home paraffin wax unit and is indep with jt protection techniques and her HEP She is now starting PT to improve her walking Electronically Signed By: Na James OT CHT CLT Reviewed/agree with student documentation: N/A Therapist: Please Sign and return to therapist, thank you for your referral.
== END 2021-11-09 10:24 | disposition home or self-care (01) ==
LOC: HO.OT 09:00
PROVIDERS: PCP Internal Medicine; Visit Provider Nurse Practitioner Family
DX: M06.09 Rheumatoid arthritis without rheumatoid factor, multiple sites (principal); M79.641 Pain in right hand; M79.642 Pain in left hand
CPT/HCPCS: 97035; 97110; 97166; 97530

== ENCOUNTER 2021-12-01 10:00 | Outpatient (RCR) | payer MEDICARE, SELFPAY ==
[2021-11-07 09:57] VITALS: BP 147/66; PULSE 66; O2SAT 97
--- NOTE | 2021-11-07 15:17 | MHC.PT.EP ---
[facility] [place] Office [place] Office [place] Office [address] Julien Ovalle [address] [phone] F: [phone] F: [phone] F: [phone] F: [phone] Physical Therapy Plan of Care Date of Evaluation: Date of Surgery: Diagnosis: GAIT INSTABILITY IN A Pt W RA, DJD, AND DIABETIC NEUROPATHY Assessment: 70 YO FEMALE REF TO PT W DX OF GAIT INSTABILITY W H/O RA, OA, DIABETIC NEUROPATHY, AND POLYARTHRALGIA. SHE RESIDES ALONE IN A 2ND FLOOR APT (FAMILY ON 1ST FLOOR)- SHE PRESENTED W/O ANY ASST DEVICE- REQ ASSIST W HIGHER LEVEL TASKS, USES A ROLLATOR PRN. Pt WOULD LIKE TO IMPROVE HER GAIT/ REDUCE UNSTEADINESS/ INCR LEs STRENGTH. OBJECTIVELY, Pt HAS DECR FLEXIB/ ROM IN EDU PSOAS MM/ ANKLES/ HIP ROTAT, STRENGTH DEFICITS IN EDU PROX LEs, DECR SENSATION IN DISTAL LEs, AND INTERMITTENT JOINT PAIN/ LUMBAR SPINAL STENOSIS SXS. FUNCTIONALLY, Pt IS LIMITED W SLS, STANDING, WALKING > 1/2 BLOCK, TRANSFERS, AND STAIR MGMT. Pt WOULD BENEFIT FROM PT TO ADDRESS THE ABOVE FINDINGS , DEV A PROGR HEP/ SELF-SX MGMT PROGRAM, AND IMPROVE HER GAIT/ FUNCTIONAL INDEPENDENCE. Frequency and Duration: The patient will be seen 2 X wk X 8 wks Short Term Goals: *Pt DEMON INDEP SELF CORRECT POSTURE TO REDUCE LB STRESS IN 2 WKS *Pt DEMON IMPROVED SIT <-> STAND TRANSFERS W REDUCED UEs COMPENSATION IN 3 WKS * Pt INCR AROM EDU HIP / PSOAS MM FLEXIB AND ANKLE ROM TO IMPROVE GAIT MECH IN 3 WKS Flap Lining Binder Goals: *Pt DEMON INDEP TECHN W GETTING UP FROM THE FLOOR IN 8 WKS *Pt INDEP W PROGR HEP AND SELF-SX MGMT IN 5 WKS *IMPROVE Pt'S LEs STRENGTH BY 1/2-1 GRADE IN 8 WKS *Pt W IMPROVED TUG TEST BY 4-6 POINTS (20 AT EVAL) Treatment Plan: Modalities to reduce pain, spasms and effusion. Manual therapy to restore motion and function. Therapeutic exercise to improve strength and flexibility. Neuromuscular re-education for posture and balance. Therapeutic activities to return to functional activities of daily living. Electronically signed by: Chelle Chand PT Please sign and return to therapist. Thank you for your referral.
--- NOTE | 2022-01-10 09:15 | MHC.PT.DC ---
[facility] [place] [facility] [place] [facility] [place] Office [address] Julien Ovalle [address] [phone] F: [phone] F: [phone] F: [phone] F: [phone] Physical Therapy Discharge Report Diagnosis: GAIT INSTABILITY IN A Pt W RA, DJD, AND DIABETIC NEUROPATHY Date of Surgery: Date of Evaluation: 11/07/21 Date of Discharge: 01/10/22 Treatments to Date: 6 Cancellations to Date: No Shows to Date: Discharge Status: Achieved Goals Improved Function Independent with HEP Discharge Summary: The patient overall feels comfortable and confident performing her home exercise program. She was educated extensively on the importance of continuing with therapy to mitigate her fall risk and improve her strength and endurance. Her grandson is finishing school next week and wants to be home to be with him. Time was spent today reviewing her home exercise program. She was able to list and perform each exercise safely and with good form. She was educated on regression and progression of exercises to continue to make or maintain gains. She is discharged from this physical therapy plan of care per her request. Electronically signed by: Chelle ChandPT Please sign and return to therapist. Thank you for your referral.
== END 2022-01-10 09:16 | disposition home or self-care (01) ==
LOC: HO.PT 10:00
PROVIDERS: PCP Internal Medicine; Visit Provider Nurse Practitioner Family
DX: M75.80 Other shoulder lesions, unspecified shoulder (principal)
CPT/HCPCS: 97110; 97112; 97162; 97530

== ENCOUNTER 2022-01-16 09:14 | Outpatient (REF) | payer MEDICARE, SELFPAY ==
[2022-01-16 10:19] LABS: Hematocrit 33.1 % (37.0-47.0); Hemoglobin 11.3 g/dl (12.0-16.0); Mean Corpuscular HGB Conc 34.1 g/dl (31.0-35.0); Mean Corpuscular Hemoglobin 32.3 pg (27.0-33.0); Mean Corpuscular Volume 94.6 fL (80.0-98.0); Platelet Count 222 X10*3/uL (160-400); Red Cell Distribution Width 13.9 % (11.0-16.0)
[2022-01-16 10:59] LABS: Anion Gap 13 (12-20); Blood Urea Nitrogen 25 mg/dL (9-16); Carbon Dioxide 25 mmol/L (22-29); Chloride 105 mmol/L (96-108); Estimated Glomerular Filt Rate 53; Glucose Random 155 mg/dL (60-115); Potassium 4.2 mmol/L (3.3-5.1); Sodium 139 mmol/L (135-145)
[2022-01-16 11:09] LABS: Estimated Average Glucose 97 mg/dL
== END 2022-01-16 09:15 | disposition home or self-care (01) ==
LOC: HO.LAB 09:14
PROVIDERS: PCP Internal Medicine; Visit Provider Internal Medicine
DX: E11.9 Type 2 diabetes 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s (principal); Z79.4 Long term (current) use of insulin
CPT/HCPCS: 36415; 80048; 83036; 85027

== ENCOUNTER → 2022-01-23 10:04 | Outpatient (BNVA) | payer MEDICARE, SELFPAY | PROVIDERS: PCP Internal Medicine; Visit Provider Internal Medicine | DX: J45.909 Unspecified asthma, uncomplicated (principal); R06.00 Dyspnea, unspecified | CPT/HCPCS: 94010; 99212 ==

== ENCOUNTER → 2022-02-07 09:04 | Outpatient (BNVA) | payer MEDICARE, SELFPAY | PROVIDERS: PCP Internal Medicine; Referring Provider Internal Medicine; Visit Provider Nurse Practitioner | DX: K58.0 Irritable bowel syndrome with diarrhea (principal); R13.11 Dysphagia, oral phase; K21.9 Gastro-esophageal reflux disease without esophagitis | CPT/HCPCS: 99212 ==

== ENCOUNTER 2022-02-22 09:50 | Outpatient (REF) | payer MEDICARE, SELFPAY ==
[2022-02-22 10:30] LABS: MANUAL DIFF FLAG NO
[2022-02-22 10:38] LABS: Basophils Absolute Auto 0.1 X10*3/uL (0.0-0.2); Basophils Percent Auto 0.9 % (0-2); Eosinophils Absolute Auto 0.4 X10*3/uL (0.0-0.4); Eosinophils Percent Auto 5.3 % (0-4); Hemoglobin 10.8 g/dl (12.0-16.0); Imm Gran Abs Auto 0.04 X10*3/uL (0.00-0.03); Imm Gran Pct Auto 0.5 % (0.0-0.4); Lymphocytes Absolute Auto 1.1 X10*3/uL (1.2-4.9); Lymphocytes Percent Auto 13.5 % (20-40); Mean Corpuscular HGB Conc 34.8 g/dl (31.0-35.0); Mean Corpuscular Hemoglobin 32.8 pg (27.0-33.0); Mean Corpuscular Volume 94.2 fL (80.0-98.0); Mean Platelet Volume 10.9 fL (9.4-12.3); Monocytes Absolute Auto 0.3 X10*3/uL (0.1-1.2); Monocytes Percent Auto 3.8 % (2-11); Neutrophils Absolute Auto 6.1 x10*3/uL (2.0-8.3); Platelet Count 231 X10*3/uL (160-400); Red Blood Count 3.29 X10*6/uL (4.20-5.50); Red Cell Distribution Width 13.4 % (11.0-16.0)
[2022-02-22 11:02] LABS: Alanine Aminotransferase 24 U/L (0-31); Aspartate Amino Transferase 23 U/L (5-31); C Reactive Protein 0.63 mg/dL (< or = 0.50); Estimated Glomerular Filt Rate 47
[2022-02-22 11:18] LABS: Erythrocyte Sedimentation Rate 14 MM/HR (0-20)
== END 2022-02-22 09:51 | disposition home or self-care (01) ==
LOC: HO.10HDL 09:50
PROVIDERS: Visit Provider Nurse Practitioner Family
DX: M06.09 Rheumatoid arthritis without rheumatoid factor, multiple sites (principal); M85.80 Other specified disorders of bone density and structure, unspecified site; Z79.899 Other long term (current) drug therapy
CPT/HCPCS: 36415; 82565; 84450; 84460; 85025; 85652; 86140; 99212

== ENCOUNTER → 2022-03-23 11:39 | Outpatient (BNVA) | payer MEDICARE, SELFPAY | PROVIDERS: PCP Internal Medicine; Visit Provider Nurse Practitioner | DX: K58.0 Irritable bowel syndrome with diarrhea (principal); K22.10 Ulcer of esophagus without bleeding; K21.9 Gastro-esophageal reflux disease without esophagitis | CPT/HCPCS: 99212 ==

== ENCOUNTER 2022-03-31 12:47 | Outpatient (RCR) | payer MEDICARE, SELFPAY | END 2022-04-07 14:24 | disposition home or self-care (01) | LOC: HO.WCC 12:47 | PROVIDERS: PCP Internal Medicine; Visit Provider Physician Assistant | DX: L30.9 Dermatitis, unspecified (principal); R23.8 Other skin changes; M05.9 Rheumatoid arthritis with rheumatoid factor, unspecified; K22.10 Ulcer of esophagus without bleeding; D64.89 Other specified anemias; J98.9 Respiratory disorder, unspecified; E11.40 Type 2 diabetes mellitus with diabetic neuropathy, unspecified; Z79.4 Long term (current) use of insulin; Z79.899 Other long term (current) drug therapy | CPT/HCPCS: 99212 ==

== ENCOUNTER 2022-04-14 11:53 | Outpatient (REF) | payer MEDICARE, SELFPAY ==
[2022-04-14 12:45] LABS: Cholesterol 106 mg/dL; HDL Cholesterol 39 mg/dL; LDL Cholesterol Calculated 34 mg/dl; Triglycerides 166 mg/dL
== END 2022-04-14 11:54 | disposition home or self-care (01) ==
LOC: HO.LAB 11:53
PROVIDERS: PCP Internal Medicine; Visit Provider Internal Medicine
DX: E78.00 Pure hypercholesterolemia, unspecified (principal)
CPT/HCPCS: 36415; 80061

== ENCOUNTER 2022-05-22 11:08 | Outpatient (REF) | payer MEDICARE, SELFPAY ==
[2022-05-22 11:21] LABS: MANUAL DIFF FLAG NO
[2022-05-22 11:44] LABS: Basophils Absolute Auto 0.1 X10*3/uL (0.0-0.2); Basophils Percent Auto 1.2 % (0-2); Eosinophils Absolute Auto 0.6 X10*3/uL (0.0-0.4); Eosinophils Percent Auto 7.1 % (0-4); Hematocrit 33.7 % (37.0-47.0); Hemoglobin 11.5 g/dl (12.0-16.0); Imm Gran Abs Auto 0.02 X10*3/uL (0.00-0.03); Imm Gran Pct Auto 0.2 % (0.0-0.4); Lymphocytes Absolute Auto 1.4 X10*3/uL (1.2-4.9); Mean Corpuscular HGB Conc 34.1 g/dl (31.0-35.0); Mean Corpuscular Volume 93.9 fL (80.0-98.0); Mean Platelet Volume 10.5 fL (9.4-12.3); Monocytes Absolute Auto 0.7 X10*3/uL (0.1-1.2); Monocytes Percent Auto 8.3 % (2-11); Neutrophils Absolute Auto 5.6 x10*3/uL (2.0-8.3); Neutrophils Percent Auto 66.2 % (45-73); Platelet Count 216 X10*3/uL (160-400); Red Blood Count 3.59 X10*6/uL (4.20-5.50); Red Cell Distribution Width 13.4 % (11.0-16.0); White Blood Count 8.5 X10*3/uL (4.8-10.8)
[2022-05-22 12:15] LABS: Alanine Aminotransferase 18 U/L (0-31); Aspartate Amino Transferase 16 U/L (5-31); C Reactive Protein 0.24 mg/dL (< or = 0.50); Estimated Glomerular Filt Rate 55
[2022-05-22 13:20] LABS: Erythrocyte Sedimentation Rate 13 MM/HR (0-20)
== END 2022-05-22 11:09 | disposition home or self-care (01) ==
LOC: HO.LAB 11:08
PROVIDERS: PCP Internal Medicine; Visit Provider Nurse Practitioner Family
DX: M06.09 Rheumatoid arthritis without rheumatoid factor, multiple sites (principal); Z79.899 Other long term (current) drug therapy
CPT/HCPCS: 36415; 82565; 84450; 84460; 85025; 85652; 86140

== ENCOUNTER → 2022-05-25 10:31 | Outpatient (BNVA) | payer MEDICARE, SELFPAY | PROVIDERS: PCP Internal Medicine; Referring Provider Internal Medicine; Visit Provider Nurse Practitioner Family | DX: M06.09 Rheumatoid arthritis without rheumatoid factor, multiple sites (principal); M85.80 Other specified disorders of bone density and structure, unspecified site | CPT/HCPCS: 99212 ==

== ENCOUNTER 2022-08-04 15:00 | Emergency (ER) | payer MEDICARE, SELFPAY ==
--- NOTE | ~2022-08-04 | XR_ITS ---
EXAMINATION: XR CHEST CLINICAL INFORMATION: Weakness COMPARISON: Chest x-ray 05/23/2021 TECHNIQUE: Frontal view of the chest was obtained. FINDINGS: External defibrillator pads overlie the right mid and left lower hemithorax. The lungs appear clear. No airspace consolidation, pleural effusion, or pneumothorax. Normal cardiomediastinal silhouette and pulmonary vascularity. No evidence of pulmonary edema. No acute osseous injury identified. XR/XR chest 1V IMPRESSION: No acute pulmonary disease.
[2022-08-04 15:12] VITALS: BP 169/75; PULSE 35; RESP 17; TEMP 36.4; O2SAT 96
--- NOTE | 2022-08-04 15:17 | ECG_ITS ---
Test Reason : laura Blood Pressure : / mmHG Vent. Rate : 035 BPM Atrial Rate : 036 BPM P-R Int : 000 ms QRS Dur : 104 ms QT Int : 640 ms P-R-T Axes : 074 -30 016 degrees QTc Int : 488 ms Normal sinus rhythm with complete heart block Left axis deviation Minimal voltage criteria for LVH, may be normal variant ( R in aVL ) Abnormal ECG When compared with ECG of 06-NOV-2017 13:59, Vent. rate has decreased BY 47 BPM CHB is now present Referred By: Generic ED Physician Electronically Signed By:MARGE MACHADO MD
[2022-08-04 15:19] VITALS: BP 154/69; BP 169/75; PULSE 35; RESP 16; TEMP 36.3; O2SAT 95; O2SAT 96; BMI 34.3
[2022-08-04 15:40] VITALS: BP 156/40; PULSE 35; RESP 16; O2SAT 96
[2022-08-04 15:57] LABS: MANUAL DIFF FLAG NO
[2022-08-04 15:58] LABS: Basophils Absolute Auto 0.1 X10*3/uL (0.0-0.2); Basophils Percent Auto 0.7 % (0-2); Eosinophils Absolute Auto 0.2 X10*3/uL (0.0-0.4); Eosinophils Percent Auto 1.8 % (0-4); Hematocrit 30.3 % (37.0-47.0); Hemoglobin 10.2 g/dl (12.0-16.0); Imm Gran Abs Auto 0.05 X10*3/uL (0.00-0.03); Imm Gran Pct Auto 0.4 % (0.0-0.4); Lymphocytes Absolute Auto 1.2 X10*3/uL (1.2-4.9); Lymphocytes Percent Auto 10.7 % (20-40); Mean Corpuscular HGB Conc 33.7 g/dl (31.0-35.0); Mean Corpuscular Hemoglobin 32.6 pg (27.0-33.0); Mean Corpuscular Volume 96.8 fL (80.0-98.0); Mean Platelet Volume 11.2 fL (9.4-12.3); Monocytes Absolute Auto 0.4 X10*3/uL (0.1-1.2); Monocytes Percent Auto 3.3 % (2-11); Neutrophils Absolute Auto 9.6 x10*3/uL (2.0-8.3); Neutrophils Percent Auto 83.1 % (45-73); Platelet Count 245 X10*3/uL (160-400); Red Blood Count 3.13 X10*6/uL (4.20-5.50); Red Cell Distribution Width 14.6 % (11.0-16.0); White Blood Count 11.6 X10*3/uL (4.8-10.8)
[2022-08-04 16:04] LABS: INTERNATIONAL NORM RATIO 1.4 (0.9-1.1)
[2022-08-04 16:14] LABS: Alanine Aminotransferase 36 U/L (0-31); Albumin Level 4.2 g/dL (3.5-5.0); Alkaline Phosphatase 78 U/L (39-117); Anion Gap 17 (12-20); Aspartate Amino Transferase 19 U/L (5-31); Blood Urea Nitrogen 45 mg/dL (9-16); Calcium 8.9 mg/dL (8.4-10.2); Carbon Dioxide 18 mmol/L (22-29); Chloride 114 mmol/L (96-108); Estimated Glomerular Filt Rate 27; Glucose Random 116 mg/dL (60-115); Potassium 4.5 mmol/L (3.3-5.1); Sodium 144 mmol/L (135-145); Total Protein 6.2 g/dL (6.5-8.0)
--- NOTE | 2022-08-04 16:14 | ED_ITS ---
HPI - General Adult General Chief complaint: General Medical Stated complaint: General weak x 1month per EMS Time Seen by Provider: 08/04/22 15:51 Source: patient Mode of arrival: ambulatory Limitations: no limitations History of Present Illness HPI narrative: Patient comes to the emergency room complaining of dyspnea on exertion and generalized weakness for 1 month. Patient states that her symptoms have gradual ly been getting worse. Denies syncopal episode, no abdominal pain, no fever or chills. At this time no chest pain or shortness of breath since she is laying down. Patient states that earlier today, she went out for lunch with her best friend 13:00, told her about her symptoms, and urged her to come to the emergency room. Patient called her son who brought her to the emergency room. On arrival to triage, it was noted that patient's heart rate is 35, blood pressure 156/40 Related Data Home Medications Medication Instructions Recorded Confirmed clopidogrel 75 mg tablet (Plavix) 75 mg PO DAILY 06/28/20 07/25/22 aspirin 81 mg tablet,delayed 81 mg PO DAILY 08/26/20 07/25/22 release cholecalciferol (vitamin D3) 50 50 mcg PO DAILY 08/26/20 07/25/22 mcg (2,000 unit) capsule gabapentin 600 mg tablet 600 mg PO BID 2 at night 03/23/22 07/25/22 lamotrigine 25 mg tablet 50 mg PO BID 05/25/22 07/25/22 Previous Rx's Medication Instructions Recorded insulin syringe-needle U-100 1 mL #100 ea 10/21/20 29 gauge x 7/16 walker #1 ea 11/12/20 metronidazole 1 % topical gel with 1 appl topical DAILY #55 grams 02/03/21 pump blood sugar diagnostic (OneTouch #150 ea 04/12/21 Ultra Test strips) lidocaine 5 % topical patch 1 patch topical DAILY #30 patches 06/22/21 insulin glargine 100 unit/mL (3 70 unit (0.7 mL) subcut BEDTIME 09/29/21 mL) subcutaneous pen (Lantus #30 mL Solostar U-100 Insulin) betamethasone valerate 0.1 % 1 appl topical BID PRN skin 11/22/21 topical ointment irritation #45 grams ketoconazole 2 % topical cream 1 appl topical BID #60 grams 11/22/21 fluticasone propionate 50 2 spray intranasal DAILY #16 grams 01/10/22 mcg/actuation nasal spray,suspension albuterol sulfate 90 mcg/actuation 2 puff inhalation Q4-6H PRN 01/23/22 aerosol inhaler (ProAir HFA) shortness of breath or wheezing 30 days #8.5 grams folic acid 1 mg tablet 1 mg PO DAILY #90 tabs 01/23/22 lisinopril 10 1 tab PO DAILY #90 tabs 01/30/22 mg-hydrochlorothiazide 12.5 mg tablet Humalog KwikPen Insulin 100 40 unit (0.4 mL) subcut TID #108 mL 02/17/22 unit/mL subcutaneous (insulin lispro) atorvastatin 20 mg tablet 20 mg PO DAILY #90 tabs 02/17/22 sucralfate 1 gram tablet 3 g PO DAILY #270 tabs 03/23/22 famotidine 40 mg tablet 40 mg PO BID #180 tabs 04/27/22 methotrexate sodium 2.5 mg tablet 15 mg PO QWEEK #72 tabs 05/24/22 hydroxychloroquine 200 mg tablet 200 mg PO BID #180 tabs 07/17/22 ferrous sulfate 325 mg (65 mg 325 mg PO DAILY #90 tabs 07/23/22 iron) tablet Allergies Allergy/AdvReac Type Severity Reaction Status Date / Time duloxetine Allergy Severe LOOPY Verified 07/25/22 13:29 codeine [CODEINE] Allergy Intermediate GI UPSET Verified 07/25/22 13:29 doxycycline [DOXYCYCLINE] Allergy Intermediate RASH Verified 07/25/22 13:29 Sulfa (Sulfonamide Allergy Intermediate Hives Verified 07/25/22 13:29 Antibiotics) [SULFA (SULFONAMIDE ANTIBIOTICS)] Review of Systems Review of Systems: Constitutional : No Weight loss, No Fever, No Chills, No Night Sweats, complaining of worsening fatigue over the last month ENT/Mouth : No Hearing loss, No Ear Pain, No Nasal Congestion, No Sinus Pain, No Hoarseness, No sore throat, No Rhinorrhea, No Swallowing Difficulty Eyes: No Eye Pain, No Swelling, No Redness, No Foreign Body, No Discharge, No Vision Changes Cardiovascular : No Chest Pain, complaining of worsening dyspnea on exertion, no orthopnea Respiratory : No Cough, No Sputum, No Wheezing, No Smoke Exposure, No Dyspnea Gastrointestinal : No Nausea, No Vomiting, No Diarrhea, No Constipation, No abdominal Pain, No Hematochezia, No Melena Genitourinary : no irregular bleeding, No Dysuria, No Urinary Frequency, No Hematuria, No Urinary Incontinence, No Urgency, No Flank Pain, No Urinary Flow Changes, No Hesitancy Musculoskeletal : No joint pain, No Myalgias, No Joint Swelling, complaining of lower extremity weakness Skin : No Skin Lesions, No rash Neuro : No Weakness, No Numbness, No Paresthesias, No Loss of Consciousness, No Dizziness, No Headache Psych : No Anxiety/Panic, No Depression, No SI/HI/AH/VH, No Social Issues, Heme/Lymph: No Bruising, No Bleeding,No Lymphadenopathy Endocrine : No Polyuria, No Polydipsia, No Temperature Intolerance [facility] Past Medical History Medical History Allergic rhinitis Asthma Asthma exacerbation Bronchitis Cough variant asthma COVID COVID-19 Decreased hearing DJD (degenerative joint disease) Dysphagia Dyspnea on exertion GERD (gastroesophageal reflux disease) Laryngopharyngeal reflux (LPR) Polyarthralgia Post-menopausal Rheumatoid arthritis Rotator cuff tendinitis Spinal stenosis TIA (transient ischemic attack) Type 2 diabetes 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s Surgical History History of colonoscopy History of esophagogastroduodenoscopy (EGD) Hx of cholecystectomy Hx of hysterectomy Hx of tonsillectomy Family History Family History Father CVD (cardiovascular disease) Diabetes Mother Diabetes Sister No problems noted. Other Substance use disorder Social History Social History Household Members: Family and None Housing: House Are you a primary outdoor emergency care technician to a significant other at home: No Do you presently have visiting nurse or other home services: No Alcohol intake: never Patient Tobacco Use Status: Never used Tobacco Smoked in Last 30 Days: No e-Cigarette/Vaping Use: Never Used Second Hand Smoke Exposure: No Use of substances other than those prescribed or required for medical reasons: No Advance Directives: Yes Advance Directives on File: Yes Advance Directives Date on File: 08/04/22 service: No Current occupational status: retired Cognitive needs: Yes (walker) Hearing needs: Yes (hearing aide) Vision needs: Yes (glasses) Physical Exam ED Vital Signs: Vital Signs - 24 hr 08/04/22 15:12 08/04/22 15:19 08/04/22 15:40 Temperature 97.5 F 97.4 F Pulse Rate 35 L 35 L 35 L Respiratory Rate 17 16 16 Blood Pressure 169/75 H 169/75 H 156/40 H Pulse Oximetry 96 95 96 Oxygen Delivery Method Room Air Room Air BMI result Body Mass Index 34.3 Const Other: Appearance: Alert. Oriented X3. No acute distress. Eyes: Pupils equal, round and reactive to light. ENT: Pharynx normal. Neck: Normal inspection. Neck supple. No lymph nodes noted. No crepitus CVS: Irregular, bradycardic, heart rate in the low 30s, Pulses normal. Normal S1 and S2 Respiratory: No respiratory distress. Breath sounds normal. No Wheezing. No rales Abdomen: Soft and nontender. No rigidity. No distention. Skin: Skin warm and dry. Normal skin color. Normal skin turgor. Extremities: Trace pitting edema bilaterally, No Lacerations. No Rash Neuro: Oriented X 3. No motor deficit. No sensory deficit. Moving all ext remities. No slurred speech. CN 2 through 12 grossly intact Psych: calm, cooperative, normal affect Course Course Course Narrative: -patient's labs pending. Medical Decision Making Medical Decision Making MDM Narrative: -EKG shows the 3rd degree block, bradycardia, heart rate 35, no ST segment depre ssion or elevation, no T-wave inversion, QTC 488 -labs are pending -I discussed the patient with Dr. Perez; Dr. Ivory or Dr. Fernandez are not available for a pacemaker placement, patient will have to be transferred likely to [facility] -patient ate lunch approximately 3-1/2 hours ago (13:30) -at this time, patient is lying down, asymptomatic, heart rate 35, blood pressure 156/40, 96% on room air, respirations 16. Pacer pads are on the patient -I informed the patient and her son about her current condition. Both agreeable to the above-mentioned plan -I spoke with Dr. Ann from [facility], patient will be transferred. 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 Perez from Cardiology. We did not have staff available for a pacemaker. I also discussed the patient with Dr. Ann from cardiology at [facility], patient being transferred) - Lab Data MDM Lab Attestation statement: I reviewed the patient's lab results. 08/04/22 15:51 08/04/22 15:51 Labs: Lab Results 08/04/22 08/04/22 08/04/22 Range/Units 15:51 15:51 15:51 WBC 11.6 H (4.8-10.8) X10*3/uL RBC 3.13 L (4.20-5.50) X10*6/uL Hgb 10.2 L (12.0-16.0) g/dl Hct 30.3 L (37.0-47.0) % MCV 96.8 (80.0-98.0) fL MCH 32.6 (27.0-33.0) pg MCHC 33.7 (31.0-35.0) g/dl RDW 14.6 (11.0-16.0) % Plt Count 245 (160-400) X10*3/uL MPV 11.2 (9.4-12.3) fL Immature Gran % (Auto) 0.4 (0.0-0.4) % Neut % (Auto) 83.1 H (45-73) % Lymph % (Auto) 10.7 L (20-40) % Meagher % (Auto) 3.3 (2-11) % Eos % (Auto) 1.8 (0-4) % Baso % (Auto) 0.7 (0-2) % Lymph # (Auto) 1.2 (1.2-4.9) X10*3/uL Meagher # (Auto) 0.4 (0.1-1.2) X10*3/uL Eos # (Auto) 0.2 (0.0-0.4) X10*3/uL Baso # (Auto) 0.1 (0.0-0.2) X10*3/uL Abs Immat Gran (auto) 0.05 H (0.00-0.03) X10*3/uL Absolute Neuts (auto) 9.6 H (2.0-8.3) x10*3/uL Absolute Nucleated RBC 0.000 (0.0-0.012) X10*3/uL Nucleated RBC % (auto) 0.0 (0.0-0.2) /100WBC PT 16.0 H (10.0-13.1) SEC INR 1.4 H (0.9-1.1) Sodium 144 (135-145) mmol/L Potassium 4.5 (3.3-5.1) mmol/L Chloride 114 H (96-108) mmol/L Carbon Dioxide 18 L (22-29) mmol/L Anion Gap 17 (12-20) BUN 45 H (9-16) mg/dL Creatinine 1.85 H (0.5-1.4) mg/dL Estim Creat Clear Calc 25.0 Estimated GFR 27 Random Glucose 116 H (60-115) mg/dL Calcium 8.9 (8.4-10.2) mg/dL Total Bilirubin 1.0 (0.0-1.0) mg/dL AST 19 (5-31) U/L ALT 36 H (0-31) U/L Alkaline Phosphatase 78 (39-117) U/L Troponin I High Sens (<3.5-17.0) ng/L B-Natriuretic Peptide (<100) pg/mL Total Protein 6.2 L (6.5-8.0) g/dL Albumin 4.2 (3.5-5.0) g/dL COVID-19 ([facility]) (Negative) COVID-19 Clin Com 08/04/22 08/04/22 08/04/22 Range/Units 15:51 15:55 15:55 WBC (4.8-10.8) X10*3/uL RBC (4.20-5.50) X10*6/uL Hgb (12.0-16.0) g/dl Hct (37.0-47.0) % MCV (80.0-98.0) fL MCH (27.0-33.0) pg MCHC (31.0-35.0) g/dl RDW (11.0-16.0) % Plt Count (160-400) X10*3/uL MPV (9.4-12.3) fL Immature Gran % (Auto) (0.0-0.4) % Neut % (Auto) (45-73) % Lymph % (Auto) (20-40) % Meagher % (Auto) (2-11) % Eos % (Auto) (0-4) % Baso % (Auto) (0-2) % Lymph # (Auto) (1.2-4.9) X10*3/uL Meagher # (Auto) (0.1-1.2) X10*3/uL Eos # (Auto) (0.0-0.4) X10*3/uL Baso # (Auto) (0.0-0.2) X10*3/uL Abs Immat Gran (auto) (0.00-0.03) X10*3/uL Absolute Neuts (auto) (2.0-8.3) x10*3/uL Absolute Nucleated RBC (0.0-0.012) X10*3/uL Nucleated RBC % (auto) (0.0-0.2) /100WBC PT (10.0-13.1) SEC INR (0.9-1.1) Sodium (135-145) mmol/L Potassium (3.3-5.1) mmol/L Chloride (96-108) mmol/L Carbon Dioxide (22-29) mmol/L Anion Gap (12-20) BUN (9-16) mg/dL Creatinine (0.5-1.4) mg/dL Estim Creat Clear Calc Estimated GFR Random Glucose (60-115) mg/dL Calcium (8.4-10.2) mg/dL Total Bilirubin (0.0-1.0) mg/dL AST (5-31) U/L ALT (0-31) U/L Alkaline Phosphatase (39-117) U/L Troponin I High Sens 9.5 (<3.5-17.0) ng/L B-Natriuretic Peptide 877 H (<100) pg/mL Total Protein (6.5-8.0) g/dL Albumin (3.5-5.0) g/dL COVID-19 ([facility]) Negative (Negative) COVID-19 Clin Com See Note Independent Interpretation I performed an independent interpretation of an: EKG (My interpretation: 3rd degree block, heart rate 35, no ST segment depressions or elevations, QTC 488) and Plain X-Ray (My chest x-ray interpretation: No vascular congestion) Radiology Impression Discussion of test interpretation with radiology: I have reviewed the radiologist's reading. Radiologist Impression: INDINGS: External defibrillator pads overlie the right mid and left lower hemithorax. The lungs appear clear. No airspace consolidation, pleural effusion, or pneumothorax. Normal cardiomediastinal silhouette and pulmonary vascularity. No evidence of pulmonary edema. No acute osseous injury identified. XR/XR chest 1V IMPRESSION: No acute pulmonary disease. Critical Care Time Critical Care Time Total Critical Care Time: 60 Attestation: I have personally provided critical care time. Time includes review of lab data, radiology results, discussion with consultants, and monitoring for potential decompensation. Intervention performed as documented. Discharge Plan Discharge Clinical Impression: Third degree atrioventricular block Patient Disposition: [facility] Transfer Details: [facility] inpatient service Prescriptions: No Action (DME) insulin syringe-needle U-100 1 mL 29 gauge x 7/16 syringe See Rx Instructions .ROUTE QWEEK Qty: 100 0RF Rx Instructions: As directed metronidazole 1 % gel with pump 1 appl topical DAILY Qty: 55 0RF (DME) OneTouch Ultra Test Strip See Rx Instructions .Route Qty: 150 12RF Rx Instructions: As directed 3x daily lidocaine 5 % adhesive patch,medicated 1 patch topical DAILY Qty: 30 0RF fluticasone propionate 50 mcg/actuation spray,suspension 2 spray intranasal DAILY Qty: 16 0RF folic acid 1 mg tablet 1 mg PO DAILY Qty: 90 1RF lisinopril-hydrochlorothiazide 10-12.5 mg tablet 1 tab PO DAILY Qty: 90 1RF atorvastatin 20 mg tablet 20 mg PO DAILY Qty: 90 1RF insulin lispro [Humalog KwikPen Insulin] 100 unit/mL insulin pen 40 unit subcut TID Qty: 108 1RF famotidine 40 mg tablet 40 mg PO BID Qty: 180 0RF methotrexate sodium 2.5 mg tablet 15 mg PO QWEEK Qty: 72 0RF hydroxychloroquine 200 mg tablet 200 mg PO BID Qty: 180 0RF ferrous sulfate 325 mg (65 mg iron) tablet 325 mg PO DAILY Qty: 90 1RF clopidogrel [Plavix] 75 mg tablet 75 mg PO DAILY gabapentin 600 mg tablet 600 mg PO BID Label Comments: One tablet in the morning and 2 tablets at night. Lantus Solostar U-100 Insulin 100 unit/mL (3 mL) insulin pen 70 unit subcut BEDTIME Qty: 30 12RF ketoconazole 2 % cream 1 appl topical BID Qty: 60 0RF betamethasone valerate 0.1 % ointment 1 appl topical BID PRN (Reason: skin irritation) Qty: 45 0RF cholecalciferol (vitamin D3) 50 mcg (2,000 unit) capsule 50 mcg PO DAILY aspirin 81 mg tablet,delayed release (DR/EC) 81 mg PO DAILY (ASHLEY) krish Padilla See Rx Instructions .ROUTE .MEDSUPPLY Qty: 1 0RF Rx Instructions: As directed lamotrigine 25 mg tablet 50 mg PO BID Label Comments: Take 2 tablets in the morning and 2 tablets at night albuterol sulfate [ProAir HFA] 90 mcg/actuation HFA aerosol inhaler 2 puff inhalation Q4-6H PRN (Reason: shortness of breath or wheezing) 30 Days Qty: 8.5 3RF sucralfate 1 gram tablet 3 g PO DAILY Qty: 270 3RF Hold Instructions: Doctor's Order
[2022-08-04 16:16] LABS: COVID-19 Test Negative (Negative); IDNOW Serial# 9DB6401D
[2022-08-04 16:21] LABS: Troponin-I High Sensitivity 9.5 ng/L (<3.5-17.0)
--- NOTE | 2022-08-04 16:33 | PC.NURSE ---
pt remains with HR in the 30's, mostly 35 and BP 160's /40 s. denies any dizziness or Sob while laying in bed with HOB elevated. [place] [facility]
--- NOTE | 2022-08-04 16:34 | MHC.EDTECH ---
call has been placed to [facility] to possibly transfer pt. awating call back.
[2022-08-04 16:43] LABS: B Type Natriuretic Peptide 877 pg/mL (<100)
--- NOTE | 2022-08-04 17:05 | MHC.EDTECH ---
[facility] called back with accepting provider. DR Ann awaiting bed assignment.
--- NOTE | 2022-08-04 18:24 | MHC.EDTECH ---
pt will be going to [facility] 5 bed 29. pt is getting taken by richard EMERSON.RN aware
== END 2022-08-04 18:34 | disposition short-term general hospital (02) ==
PROVIDERS: Student in an Organized Health Care Education/Training Program; Emergency Provider Emergency Medicine; PCP Internal Medicine
DX: I44.2 Atrioventricular block, complete (principal); R06.02 Shortness of breath; Z20.822 Contact with and (suspected) exposure to COVID-19; Z20.828 Contact with and (suspected) exposure to other viral communicable diseases; Z79.899 Other long term (current) drug therapy
CPT/HCPCS: 36415; 71045; 80053; 83880; 84484; 85025; 85610; 87635; 93005; 99285

== ENCOUNTER 2022-08-15 14:40 | Emergency (ER) | payer MEDICARE, SELFPAY ==
--- NOTE | ~2022-08-15 | CT_ITS ---
EXAMINATION: CT ANGIOGRAM HEAD CT ANGIOGRAM NECK CLINICAL INFORMATION: Aphasia. COMPARISON: Brain MRI from 11/04/2017. TECHNIQUE: Initial noncontrast service officer imaging of the head and neck was performed. Comparison is made with noncontrast head CT from earlier today. Test bolus sequences followed by intravenous administration 70 mL of Omnipaque 350. Helical imaging was performed in the axial plane from the aortic arch to the skull vertex. Delayed postcontrast imaging of the head was also performed. The data was processed at the manufacturing technologist's workstation for generation of MIP sequences. Angled MIPs and volume rendered reformatted images were also generated at an offline 3D workstation. Stenoses are assessed in accordance with NASCET criteria unless otherwise indicated. This CT examination was performed using dose optimization techniques as appropriate, variously including the following: *Automated exposure control. *Adjustment of mA and/or kV according to patient size (this includes techniques or standardized protocols for targeted exams where dose is matched to indication/reason for exam; i.e. extremities or head). *Use of iterative reconstruction technique. DLP: 1413 mGy-cm FINDINGS: CT Head: There is no evidence of acute intracranial hemorrhage or edematous territorial infarction. Scattered hypoattenuation in the periventricular and deep white matter are consistent with moderate microangiopathy. Rogers-white matter differentiation is preserved. The ventricles are normal in size and configuration. No evidence for obstructive hydrocephalus. No abnormal mass effect or midline shift. No extra-axial fluid collections. No pathologic intra-axial enhancement. No acute soft tissue or osseous abnormalities. Arterial enhancement CT Neck: There is a 1.1 cm hypoattenuating nodule in the left thyroid lobe (no follow-up imaging recommended based on current guidelines at the time of examination). The remaining cervical soft tissues are within normal limits. Mild degenerative stepwise anterolisthesis of C3-C6. Moderate degenerative disc disease at C5-C6. Facet and uncovertebral joint arthropathy leads to osseous encroachment on the neural foramina from C3-C7. CT Upper Chest: The visualized lung apices and upper mediastinum are within normal limits. Coronary artery calcifications are present proximally and partial visualization. Neck CTA: Aortic Arch: Normal contour and caliber with mild calcific atherosclerotic disease. Classic 3 vessel branching pattern of the aortic arch. Great Vessel Origins: No significant stenosis of the branch origins. Right Common Carotid Artery: No focal stenosis or occlusion. Cervical Right Internal Carotid Artery: Mild calcific atherosclerotic disease of the carotid bulb and proximal internal carotid artery without flow-limiting stenosis. Left Common Carotid Artery: No focal stenosis or occlusion. Cervical Left Internal Carotid Artery: Normal opacification without focal stenosis or occlusion. Cervical Right Vertebral Artery: Co-dominant. No focal stenosis or occlusion. Cervical Left Vertebral Artery: Co-dominant. No focal stenosis or occlusion. Brain CTA: Intracranial Internal Carotid Arteries: Calcific atherosclerotic disease of the intracranial internal carotid arteries without occlusion or flow-limiting stenosis. Right Anterior Cerebral Artery: Normal A1 segment. Normal opacification of the distal PAULA segments. Left Anterior Cerebral Artery: Normal A1 segment. Normal opacification of the distal PAULA segments. Anterior Communicating Artery: Normal. Right Middle Cerebral Artery: Normal M1 segment of the MCA without focal stenosis or occlusion. Normal arborization of the distal segments. Left Middle Cerebral Artery: Normal M1 segment of the MCA without focal stenosis or occlusion. Normal arborization of the distal segments. Right Vertebral Artery: Normal V4 segment. Normal opacification of the proximal segments of the posterior inferior cerebellar artery. Left Vertebral Artery: Normal V4 segment. Normal opacification of the proximal segments of the posterior inferior cerebellar artery. Basilar Artery: Normal without focal stenosis or occlusion. Normal appearance of the proximal superior cerebellar arteries. Right Posterior Cerebral Artery: Normal P1 segment. Normal opacification of the distal HOROLOGIST APPRENTICE segments. Left Posterior Cerebral Artery: Normal P1 segment. Normal opacification of the distal HOROLOGIST APPRENTICE segments. Normal opacification of the superior sagittal, straight, transverse, and sigmoid sinuses. CT/CT angio head neck stroke IMPRESSION: 1. No evidence of acute intracranial hemorrhage or edematous territorial infarction. Moderate underlying microangiopathy. 2. CTA of the head and neck without proximal occlusion or flow-limiting stenosis. This critical result was discussed with Dr. Velasquez at 15:24 on 08/15/2022 and it was ascertained that the content and urgency of the report was understood at the time of direct communication.
--- NOTE | ~2022-08-15 | CT_ITS ---
EXAMINATION: CT HEAD WITHOUT CONTRAST (STROKE PROTOCOL) CLINICAL INFORMATION: Stroke protocol. Aphasia COMPARISON: Previous head CT October 2017 and brain MRI October 2017 TECHNIQUE: Contiguous axial imaging was performed from the skull base to vertex without intravenous administration of contrast. This CT examination was performed using dose optimization techniques as appropriate, variously including the following: *Automated exposure control *Adjustment of mA and/or kV according to patient size (this includes techniques or standardized protocols for targeted exams where dose is matched to indication/reason for exam; i.e. extremities or head) *Use of iterative reconstruction technique DLP: 624 mGy-cm FINDINGS: There is no evidence for an extra-axial collection. There is no evidence for intra or extra-axial hemorrhage. The ventricles and extra-axial CSF spaces are appropriate. There is nonspecific periventricular white matter disease similar to previous exams. No mass, mass effect or infarct is seen. There is evidence of abscess disease. No skull fracture. Underaeration or hypoplasia of the right frontal sinus. Paranasal sinuses, mastoid air cells and middle ears are otherwise clear. Subcutaneous scalp nodule over the left frontal bone unchanged from previous exam. CT/CT head for stroke IMPRESSION: No acute intracranial pathology. Nonspecific periventricular white matter disease. This critical result was discussed with Dr. Velasquez at 1515 hours on 08/15/2022. It was ascertained that the content and urgency of the report was understood at the time of direct communication.
[2022-08-15 14:41] VITALS: BP 142/42; PULSE 72; RESP 18; TEMP 37.2; O2SAT 100; BMI 30.2
--- NOTE | 2022-08-15 14:46 | ED_ITS ---
HPI - Neuro Symptoms/Deficit General Chief Complaint: Neuro Symptoms/Deficit Stated Complaint: Stroke Time Seen by Provider: 08/15/22 14:46 Source: family Mode of arrival: ambulatory Limitations: altered mental status History of Present Illness HPI Narrative: patient went for follow up visit for a pacemaker, during the visit she seemed confused. According to son she seems tired and confused, cant word find, she has a facial droop. Onset (ago): hour(s) Location: speech History of same: No Severity: mild Associated symptoms: confusion Related Data Home Medications Medication Instructions Recorded Confirmed clopidogrel 75 mg tablet (Plavix) 75 mg PO DAILY 06/28/20 07/25/22 aspirin 81 mg tablet,delayed 81 mg PO DAILY 08/26/20 07/25/22 release cholecalciferol (vitamin D3) 50 50 mcg PO DAILY 08/26/20 07/25/22 mcg (2,000 unit) capsule gabapentin 600 mg tablet 600 mg PO BID 2 at night 03/23/22 07/25/22 lamotrigine 25 mg tablet 50 mg PO BID 05/25/22 07/25/22 Previous Rx's Medication Instructions Recorded insulin syringe-needle U-100 1 mL #100 ea 10/21/20 29 gauge x 7/16 walker #1 ea 11/12/20 metronidazole 1 % topical gel with 1 appl topical DAILY #55 grams 02/03/21 pump blood sugar diagnostic (OneTouch #150 ea 04/12/21 Ultra Test strips) lidocaine 5 % topical patch 1 patch topical DAILY #30 patches 06/22/21 betamethasone valerate 0.1 % 1 appl topical BID PRN skin 11/22/21 topical ointment irritation #45 grams ketoconazole 2 % topical cream 1 appl topical BID #60 grams 11/22/21 fluticasone propionate 50 2 spray intranasal DAILY #16 grams 01/10/22 mcg/actuation nasal spray,suspension albuterol sulfate 90 mcg/actuation 2 puff inhalation Q4-6H PRN 01/23/22 aerosol inhaler (ProAir HFA) shortness of breath or wheezing 30 days #8.5 grams folic acid 1 mg tablet 1 mg PO DAILY #90 tabs 01/23/22 Humalog KwikPen Insulin 100 40 unit (0.4 mL) subcut TID #108 mL 02/17/22 unit/mL subcutaneous (insulin lispro) atorvastatin 20 mg tablet 20 mg PO DAILY #90 tabs 02/17/22 sucralfate 1 gram tablet 3 g PO DAILY #270 tabs 03/23/22 famotidine 40 mg tablet 40 mg PO BID #180 tabs 04/27/22 methotrexate sodium 2.5 mg tablet 15 mg PO QWEEK #72 tabs 05/24/22 hydroxychloroquine 200 mg tablet 200 mg PO BID #180 tabs 07/17/22 ferrous sulfate 325 mg (65 mg 325 mg PO DAILY #90 tabs 07/23/22 iron) tablet Allergies Allergy/AdvReac Type Severity Reaction Status Date / Time duloxetine Allergy Severe LOOPY Verified 08/15/22 13:01 codeine [CODEINE] Allergy Intermediate GI UPSET Verified 08/15/22 13:01 doxycycline [DOXYCYCLINE] Allergy Intermediate RASH Verified 08/15/22 13:01 Sulfa (Sulfonamide Allergy Intermediate Hives Verified 08/15/22 13:01 Antibiotics) [SULFA (SULFONAMIDE ANTIBIOTICS)] Review of Systems Review of Systems: Yes all other systems are reviewed and are negative Neurologic: Denies Sensory deficit (Neuro) Comments: facial droop, slurred speech, slow speech PMFSH Past Medical History Medical History Allergic rhinitis Asthma Asthma exacerbation Bronchitis Cough variant asthma COVID COVID-19 Decreased hearing DJD (degenerative joint disease) Dysphagia Dyspnea on exertion GERD (gastroesophageal reflux disease) Laryngopharyngeal reflux (LPR) Polyarthralgia Post-menopausal Rheumatoid arthritis Rotator cuff tendinitis Spinal stenosis TIA (transient ischemic attack) Type 2 diabetes 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s Surgical History History of colonoscopy History of esophagogastroduodenoscopy (EGD) Hx of cholecystectomy Hx of hysterectomy Hx of tonsillectomy Family History Family History Father CVD (cardiovascular disease) Diabetes Mother Diabetes Sister No problems noted. Other Substance use disorder Social History Social History Household Members: Family and None Housing: House Are you a primary child care centre director to a significant other at home: No Do you presently have visiting nurse or other home services: No Alcohol intake: never Patient Tobacco Use Status: Never used Tobacco e-Cigarette/Vaping Use: Never Used Second Hand Smoke Exposure: No Advance Directives: Yes Advance Directives on File: Yes Advance Directives Date on File: 08/04/22 service: No Current occupational status: retired Cognitive needs: Yes (walker) Hearing needs: Yes (hearing aide) Vision needs: Yes (glasses) Physical Exam Vital Signs: Vital Signs: Last Vital Signs Temp 97.9 F 08/15/22 15:33 Pulse 70 08/15/22 15:33 Resp 16 08/15/22 15:33 BP 141/51 H 08/15/22 15:33 Pulse Ox 98 08/15/22 15:33 O2 Del Method 08/15/22 15:33 BMI result Body Mass Index 30.2 Const: Other: slow speech, dysarthria General: healthy appearing Nutritional Appearance: average body habitus Orientation/consciousness: oriented to person and patient oriented x3 Limitations: no limitations HEENT: Head: Yes normal to inspection Ears: external ears normal General nose exam: Normal external nose present Mouth: Normal oral and palatal mucosa present and oropharynx normal Throat: Yes posterior oropharynx normal Eyes: General: appearance normal, both eyes and all related structures Neck: Other: supple Neck: Yes normal visual inspection Chest: Chest palpation & inspection: normal inspection of the chest Resp: Auscultation: clear to auscultation bilaterally Cardio: Jugular venous distension: no JVD Rate: regular rate Rhythm: regular rhythm Heart sounds: S1 normal heart sound present and S2 normal heart sound present GI: Inspection: Yes normal to inspection Palpation (GI): Soft to palpation, nontender and No hepatosplenomegaly present Auscultation: normal bowel sounds : General: Yes no CVA tenderness Back/Spine/Pelvis: Back: no CVA tenderness Skin: General skin exam: no rashes or lesions noted Neuro: Other: subtle right facial droop General: oriented to person and patient oriented x3 Motor exam (neuro): 5/5 motor strength present throughout Sensory Exam: No Sensory deficit (Neuro) Extrem: General: Yes normal to inspection Psych: Appearance: grossly normal Course Reevaluation(s) Reevaluation #1: patients records from Dr. Meng state this is not a new problem will dc home Time: 15:41 Reevaluation #2: I spent 40 minutes of critical care, with interventions, assessments, speaking to patient, consultants, and family. Time: 15:41 Medications Administered Discontinued Medications Generic Name Dose Route Start Last Admin Trade Name Kaden PRN Reason Stop Dose Admin Iohexol 100 ml 08/15/22 15:10 08/15/22 15:10 Iohexol 350 Mg/Ml 100 Ml Infus..Btl IV 08/15/22 15:11 70 ml ONCE ONE Administration Medical Decision Making Differential Diagnosis Differential Diagnoses: The differential diagnosis associated with the presentation includes (stroke, cerebral bleed, aphasia) Admission/Observation Consideration of admission/observation: Escalation of care including admission/observation considered (upon arrival this patient with TIA was considered for admission) Consult Healthcare Provider Management of the patient was discussed with: Pre Owned Sales Manager (stroke team) Lab Data 08/15/22 14:56 08/15/22 14:56 Labs: Lab Results 08/15/22 08/15/22 08/15/22 Range/Units 14:56 14:56 14:56 WBC 11.6 H (4.8-10.8) X10*3/uL RBC 3.40 L (4.20-5.50) X10*6/uL Hgb 10.9 L (12.0-16.0) g/dl Hct 32.1 L (37.0-47.0) % MCV 94.4 (80.0-98.0) fL MCH 32.1 (27.0-33.0) pg MCHC 34.0 (31.0-35.0) g/dl RDW 14.7 (11.0-16.0) % Plt Count 237 (160-400) X10*3/uL MPV 10.4 (9.4-12.3) fL Immature Gran % (Auto) 0.2 (0.0-0.4) % Neut % (Auto) 76.5 H (45-73) % Lymph % (Auto) 10.6 L (20-40) % [place] % (Auto) 6.9 (2-11) % Eos % (Auto) 4.9 H (0-4) % Baso % (Auto) 0.9 (0-2) % Lymph # (Auto) 1.2 (1.2-4.9) X10*3/uL [place] # (Auto) 0.8 (0.1-1.2) X10*3/uL Eos # (Auto) 0.6 H (0.0-0.4) X10*3/uL Baso # (Auto) 0.1 (0.0-0.2) X10*3/uL Abs Immat Gran (auto) 0.02 (0.00-0.03) X10*3/uL Absolute Neuts (auto) 8.9 H (2.0-8.3) x10*3/uL Absolute Nucleated RBC 0.000 (0.0-0.012) X10*3/uL Nucleated RBC % (auto) 0.0 (0.0-0.2) /100WBC PT 12.9 (10.0-13.1) SEC INR 1.1 (0.9-1.1) APTT 29.6 (26.0-36.4) SEC Sodium 143 (135-145) mmol/L Potassium 4.6 (3.3-5.1) mmol/L Chloride 106 (96-108) mmol/L Carbon Dioxide 29 (22-29) mmol/L Anion Gap 13 (12-20) BUN 32 H (9-16) mg/dL Creatinine 1.18 (0.5-1.4) mg/dL Estim Creat Clear Calc 41.4 Estimated GFR 45 Random Glucose 136 H (60-115) mg/dL Calcium 9.2 (8.4-10.2) mg/dL Total Creatine Kinase 71 (26-140) U/L Troponin I High Sens (<3.5-17.0) ng/L 08/15/22 Range/Units 14:56 WBC (4.8-10.8) X10*3/uL RBC (4.20-5.50) X10*6/uL Hgb (12.0-16.0) g/dl Hct (37.0-47.0) % MCV (80.0-98.0) fL MCH (27.0-33.0) pg MCHC (31.0-35.0) g/dl RDW (11.0-16.0) % Plt Count (160-400) X10*3/uL MPV (9.4-12.3) fL Immature Gran % (Auto) (0.0-0.4) % Neut % (Auto) (45-73) % Lymph % (Auto) (20-40) % [place] % (Auto) (2-11) % Eos % (Auto) (0-4) % Baso % (Auto) (0-2) % Lymph # (Auto) (1.2-4.9) X10*3/uL [place] # (Auto) (0.1-1.2) X10*3/uL Eos # (Auto) (0.0-0.4) X10*3/uL Baso # (Auto) (0.0-0.2) X10*3/uL Abs Immat Gran (auto) (0.00-0.03) X10*3/uL Absolute Neuts (auto) (2.0-8.3) x10*3/uL Absolute Nucleated RBC (0.0-0.012) X10*3/uL Nucleated RBC % (auto) (0.0-0.2) /100WBC PT (10.0-13.1) SEC INR (0.9-1.1) APTT (26.0-36.4) SEC Sodium (135-145) mmol/L Potassium (3.3-5.1) mmol/L Chloride (96-108) mmol/L Carbon Dioxide (22-29) mmol/L Anion Gap (12-20) BUN (9-16) mg/dL Creatinine (0.5-1.4) mg/dL Estim Creat Clear Calc Estimated GFR Random Glucose (60-115) mg/dL Calcium (8.4-10.2) mg/dL Total Creatine Kinase (26-140) U/L Troponin I High Sens 8.3 (<3.5-17.0) ng/L Independent Interpretation I performed an independent interpretation of an: EKG (sinus rate of 70 ventric ular paced, no evidence of cardiac ischemia) Independent Historian Clinical information obtained from an independent historian. History obtained from or confirmed by: Other (son) External Record Review External record reviewed: Office record (office record of Dr. Meng makes mention of word finding problems and some dysarthria, she was started on seizure meds) Chronic Conditions Patient?s care impacted by: Diabetes and Hypertension NIH Stroke Scale Internal: Initial- Upon Arrival Level of Consciousness: Alert Level of Consciousness Questions: Answers both questions correctly Level of Consciousness Commands: Performs both tasks correctly Best Gaze: Normal Visual: No visual loss Facial Palsy: Minor paralyis Motor Arm (Right): No drift Motor Arm (Left): No drift Motor Leg (Right): No drift Motor Leg (Left): No drift Limb Ataxia: Absent Sensory: Normal Dysarthia: Mild to moderate dysarthria Extinction and Inattention: No abnormality Discharge Plan Discharge Clinical Impression: Aphasia, Dysarthria Patient Disposition: Home, Self-Care Instructions: Aphasia (DC) Prescriptions: No Action (DME) insulin syringe-needle U-100 1 mL 29 gauge x 7/16 syringe See Rx Instructions .ROUTE QWEEK Qty: 100 0RF Rx Instructions: As directed metronidazole 1 % gel with pump 1 appl topical DAILY Qty: 55 0RF (DME) OneTouch Ultra Test Strip See Rx Instructions .Route Qty: 150 12RF Rx Instructions: As directed 3x daily lidocaine 5 % adhesive patch,medicated 1 patch topical DAILY Qty: 30 0RF fluticasone propionate 50 mcg/actuation spray,suspension 2 spray intranasal DAILY Qty: 16 0RF folic acid 1 mg tablet 1 mg PO DAILY Qty: 90 1RF atorvastatin 20 mg tablet 20 mg PO DAILY Qty: 90 1RF insulin lispro [Humalog KwikPen Insulin] 100 unit/mL insulin pen 40 unit subcut TID Qty: 108 1RF famotidine 40 mg tablet 40 mg PO BID Qty: 180 0RF methotrexate sodium 2.5 mg tablet 15 mg PO QWEEK Qty: 72 0RF hydroxychloroquine 200 mg tablet 200 mg PO BID Qty: 180 0RF ferrous sulfate 325 mg (65 mg iron) tablet 325 mg PO DAILY Qty: 90 1RF clopidogrel [Plavix] 75 mg tablet 75 mg PO DAILY gabapentin 600 mg tablet 600 mg PO BID Label Comments: One tablet in the morning and 2 tablets at night. ketoconazole 2 % cream 1 appl topical BID Qty: 60 0RF betamethasone valerate 0.1 % ointment 1 appl topical BID PRN (Reason: skin irritation) Qty: 45 0RF cholecalciferol (vitamin D3) 50 mcg (2,000 unit) capsule 50 mcg PO DAILY aspirin 81 mg tablet,delayed release (DR/EC) 81 mg PO DAILY (DME) krish Misc See Rx Instructions .ROUTE .MEDSUPPLY Qty: 1 0RF Rx Instructions: As directed lamotrigine 25 mg tablet 50 mg PO BID Label Comments: Take 2 tablets in the morning and 2 tablets at night albuterol sulfate [ProAir HFA] 90 mcg/actuation HFA aerosol inhaler 2 puff inhalation Q4-6H PRN (Reason: shortness of breath or wheezing) 30 Days Qty: 8.5 3RF sucralfate 1 gram tablet 3 g PO DAILY Qty: 270 3RF Hold Instructions: Doctor's Order Referrals: Angel Pablo MD [Primary Care Provider] - 5 days Mini Meng MD [Physician] - 5 days
--- NOTE | 2022-08-15 14:46 | ECG_ITS ---
Test Reason : STROKE Blood Pressure : / mmHG Vent. Rate : 073 BPM Atrial Rate : 073 BPM P-R Int : 178 ms QRS Dur : 138 ms QT Int : 438 ms P-R-T Axes : 049 158 -20 degrees QTc Int : 482 ms Atrial-sensed ventricular-paced rhythm Abnormal ECG When compared with ECG of 04-AUG-2022 15:22, Electronic ventricular pacemaker has replaced Sinus rhythm Vent. rate has increased BY 38 BPM Referred By: Jim Velasquez Electronically Signed By:GLENNY CEDEÑO
[2022-08-15 15:00] LABS: MANUAL DIFF FLAG NO
--- NOTE | 2022-08-15 15:00 | MHC.EDTECH ---
this pct assumed care of pt at 1500 ,poc taken ,vitals done ,provider renetta said not to bother do pt inr stroke proticol .
[2022-08-15 15:03] LABS: Basophils Absolute Auto 0.1 X10*3/uL (0.0-0.2); Basophils Percent Auto 0.9 % (0-2); Eosinophils Absolute Auto 0.6 X10*3/uL (0.0-0.4); Eosinophils Percent Auto 4.9 % (0-4); Hematocrit 32.1 % (37.0-47.0); Hemoglobin 10.9 g/dl (12.0-16.0); Imm Gran Abs Auto 0.02 X10*3/uL (0.00-0.03); Imm Gran Pct Auto 0.2 % (0.0-0.4); Lymphocytes Absolute Auto 1.2 X10*3/uL (1.2-4.9); Lymphocytes Percent Auto 10.6 % (20-40); Mean Corpuscular Hemoglobin 32.1 pg (27.0-33.0); Mean Corpuscular Volume 94.4 fL (80.0-98.0); Mean Platelet Volume 10.4 fL (9.4-12.3); Monocytes Absolute Auto 0.8 X10*3/uL (0.1-1.2); Monocytes Percent Auto 6.9 % (2-11); Neutrophils Absolute Auto 8.9 x10*3/uL (2.0-8.3); Neutrophils Percent Auto 76.5 % (45-73); Platelet Count 237 X10*3/uL (160-400); Red Cell Distribution Width 14.7 % (11.0-16.0); White Blood Count 11.6 X10*3/uL (4.8-10.8)
[2022-08-15 15:07] LABS: INTERNATIONAL NORM RATIO 1.1 (0.9-1.1); Prothrombin Time 12.9 SEC (10.0-13.1)
[2022-08-15 15:10] LABS: Partial Thromboplastin Time 29.6 SEC (26.0-36.4)
[2022-08-15] MEDS: iohexoL 350 MG/ML 100 ML INFUS..BTL IV (15:10)
[2022-08-15 15:11] LABS: Stroke Lab Use COMPLETE
[2022-08-15 15:18] LABS: Anion Gap 13 (12-20); Blood Urea Nitrogen 32 mg/dL (9-16); Calcium 9.2 mg/dL (8.4-10.2); Carbon Dioxide 29 mmol/L (22-29); Chloride 106 mmol/L (96-108); Creatinine Clr Calc Pharmacy 41.4; Estimated Glomerular Filt Rate 45; Glucose Random 136 mg/dL (60-115); Potassium 4.6 mmol/L (3.3-5.1); Sodium 143 mmol/L (135-145)
[2022-08-15 15:24] LABS: Troponin-I High Sensitivity 8.3 ng/L (<3.5-17.0)
[2022-08-15 15:33] VITALS: BP 141/51; PULSE 70; RESP 16; TEMP 36.6; O2SAT 98
--- NOTE | 2022-08-15 15:36 | MHC.STROKE ---
Addendum entered by Laura Abreu RN 08/15/22 16:05: 1555 I MET WITH THE PATIENT TO FOLLOW UP WITH HER ON HER TEST RESULTS, I PROVIDED STROKE EDUCATION, WE REVIEWED HER RISK FACTORS, MEDICATIONS, LABS. I ANSWERED ALL OF HER QUESTIONS. SHE PASSED THE NURSING SWALLOW SCREEN. REPEAT NIHSS = 0. THE PATIENT IS BEING DISCHARGED AND SHE WILL FOLLOW UP WITH DR. URIBE. Original Note: 1440 PATIENT BROUGHT IN BY SON CRISTHIAN, SHE WAS AT A PCP APPOINTMENT WITH DR. STILL AT [address] [place] [address] (SHE HAD A RECENT PACE MAKER INSERTED AT [facility]), AT 1300 IT WAS NOTICED THAT SHE HAD SOME DYSARTHRIA AND FACIAL DROOP NIHSS = 2. SEEN BY ED PROVIDER 1446 AND STROKE PROTOCOL WAS ACTIVATED. CTH DONE 1459, RESULTS AT 1515 NO BLEED, CTA H/N DONE 1502 NO LVO RESULTS AT 1524. I SAW HER AT 1530 TO DISCUSS HER TEST RESULTS AND HER SPEECH WAS IMPROVED. I DID OBTAIN HER NEUROLOGY VISIT NOTES FROM 05/31/22 DR URIBE'S OFFICE. SHE HAS HAD A SIMILAR PRESENTATION IN THE PAST, SHE HAS CEREBROVASCULAR DISEASE, AND PARTIAL COMPLEX SEIZURES AND MIGRAINES. SHE IS ON ASPIRIN AND PLAVIX. TPA THROMBOLYTICS EXCLUDED BASED ON RECENT PACER INSERTION AND LOW NIHSS MILD NON DISABLING SYMPTOMS, REVIEWED THIS WITH DR. CAVAZOS. I HAVE PROVIDED STROKE EDUCATION TO THE PATIENT AND SON CRISTHIAN. I WILL DO A NURSING SWALLOW SCREEN WELL. I WILL CONTINUE TO FOLLOW.
[2022-08-15 15:41] LABS: Glucose, Whole Blood 159 mg/dL (60-115)
[2022-08-15 16:05] VITALS: BP 152/60; PULSE 68; RESP 16; O2SAT 99
== END 2022-08-15 16:38 | disposition home or self-care (01) ==
PROVIDERS: Emergency Provider Emergency Medicine; PCP Internal Medicine
DX: R47.01 Aphasia (principal); R47.1 Dysarthria and anarthria; R29.810 Facial weakness; R47.81 Slurred speech; E11.9 Type 2 diabetes 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s; E78.00 Pure hypercholesterolemia, unspecified; R06.00 Dyspnea, unspecified; D64.9 Anemia, unspecified; Z86.73 Personal history of transient ischemic attack (TIA), and cerebral infarction without residual deficits; Z79.82 Long term (current) use of aspirin; Z79.4 Long term (current) use of insulin; Z79.02 Long term (current) use of antithrombotics/antiplatelets; Z95.0 Presence of cardiac pacemaker
CPT/HCPCS: 36415; 70450; 70496; 70498; 80048; 82550; 82947; 84484; 85025; 85610; 85730; 93005; 99284; Q9967

== ENCOUNTER 2022-08-28 11:48 | Outpatient (REF) | payer MEDICARE, SELFPAY ==
[2022-08-28 12:11] LABS: MANUAL DIFF FLAG NO
[2022-08-28 12:44] LABS: Basophils Absolute Auto 0.2 X10*3/uL (0.0-0.2); Basophils Percent Auto 1.2 % (0-2); Eosinophils Absolute Auto 0.4 X10*3/uL (0.0-0.4); Eosinophils Percent Auto 3.2 % (0-4); Hemoglobin 12.1 g/dl (12.0-16.0); Imm Gran Abs Auto 0.05 X10*3/uL (0.00-0.03); Imm Gran Pct Auto 0.4 % (0.0-0.4); Lymphocytes Absolute Auto 1.7 X10*3/uL (1.2-4.9); Lymphocytes Percent Auto 12.8 % (20-40); Mean Corpuscular HGB Conc 34.6 g/dl (31.0-35.0); Mean Corpuscular Hemoglobin 31.8 pg (27.0-33.0); Mean Corpuscular Volume 91.9 fL (80.0-98.0); Mean Platelet Volume 11.1 fL (9.4-12.3); Monocytes Absolute Auto 1.1 X10*3/uL (0.1-1.2); Neutrophils Absolute Auto 10.1 x10*3/uL (2.0-8.3); Neutrophils Percent Auto 74.4 % (45-73); Platelet Count 303 X10*3/uL (160-400); Red Blood Count 3.81 X10*6/uL (4.20-5.50); Red Cell Distribution Width 13.9 % (11.0-16.0); White Blood Count 13.5 X10*3/uL (4.8-10.8)
[2022-08-28 14:32] LABS: Estimated Average Glucose 100 mg/dL; Hemoglobin A1c % 5.1 %
== END 2022-08-28 11:49 | disposition home or self-care (01) ==
LOC: HO.LAB 11:48
PROVIDERS: Nurse Practitioner Family; PCP Internal Medicine; Visit Provider Internal Medicine
DX: M06.09 Rheumatoid arthritis without rheumatoid factor, multiple sites (principal); E11.9 Type 2 diabetes 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s
CPT/HCPCS: 36415; 83036; 85025

== ENCOUNTER 2022-09-01 10:09 | Outpatient (REF) | payer MEDICARE, SELFPAY ==
[2022-09-01 12:55] LABS: Erythrocyte Sedimentation Rate 12 MM/HR (0-20)
[2022-09-01 13:08] LABS: Alanine Aminotransferase 25 U/L (0-31); Aspartate Amino Transferase 23 U/L (5-31); C Reactive Protein 0.31 mg/dL (< or = 0.50)
== END 2022-09-01 10:10 | disposition home or self-care (01) ==
LOC: HO.LAB 10:09
PROVIDERS: PCP Internal Medicine; Visit Provider Nurse Practitioner Family
DX: M06.09 Rheumatoid arthritis without rheumatoid factor, multiple sites (principal); Z79.899 Other long term (current) drug therapy
CPT/HCPCS: 36415; 84450; 84460; 85652; 86140

== ENCOUNTER → 2022-09-20 08:45 | Outpatient (BNVA) | payer MEDICARE, SELFPAY | PROVIDERS: PCP Internal Medicine; Visit Provider Nurse Practitioner | DX: M06.09 Rheumatoid arthritis without rheumatoid factor, multiple sites (principal); M85.80 Other specified disorders of bone density and structure, unspecified site; K58.0 Irritable bowel syndrome with diarrhea; K21.9 Gastro-esophageal reflux disease without esophagitis; K22.10 Ulcer of esophagus without bleeding | CPT/HCPCS: 99212 ==

== ENCOUNTER → 2022-09-26 08:48 | Outpatient (BNVA) | payer MEDICARE, SELFPAY | PROVIDERS: PCP Internal Medicine; Referring Provider Internal Medicine; Visit Provider Internal Medicine Cardiovascular Disease | DX: Z45.018 Encounter for adjustment and management of other part of cardiac pacemaker (principal); I44.2 Atrioventricular block, complete | CPT/HCPCS: 93280; 99202 ==

== ENCOUNTER 2022-10-30 10:43 | Outpatient (REF) | payer MEDICARE, SELFPAY ==
--- NOTE | ~2022-10-30 | MM_ITS ---
EXAMINATION: MM SCREENING DIGITAL BREAST TOMOSYNTHESIS, BILATERAL CLINICAL INFORMATION: Screening. Asymptomatic. The lifetime risk of breast cancer based on the Tyrer-Cuzick Model is 2%. COMPARISON: Mammography: 09/01/2021, 08/27/2020, 05/15/2019 TECHNIQUE: Digital breast tomosynthesis is performed in both the craniocaudal and mediolateral oblique views along with computer-aided detection (CAD). Synthesized 2D images are generated from the tomosynthesis. Additional left MLO view is provided. FINDINGS: There are scattered areas of fibroglandular density (ACR BI-RADS breast composition Category b). There are no significant masses, abnormal calcifications, or other abnormalities. No architectural abnormality or developing density or significant change from prior studies. There is a pacemaker generator overlying and partly obscuring posterior left axilla on MLO view. Again, there is biopsy clip marker upper outer left breast. MM/MM tomosynthesis screening BI IMPRESSION: No mammographic evidence of malignancy. ASSESSMENT: BI-RADS 2: Benign RECOMMENDATION: Routine annual mammography screening. This patient's information was entered into a reminder system with a target due date for their next mammogram.
== END 2022-10-30 10:44 | disposition home or self-care (01) ==
LOC: HO.MAMMO 10:43
PROVIDERS: PCP Internal Medicine; Visit Provider Internal Medicine
DX: Z12.31 Encounter for screening mammogram for malignant neoplasm of breast (principal)
CPT/HCPCS: 77063; 77067

== ENCOUNTER → 2022-11-03 07:46 | Outpatient (REF) | payer MEDICARE, SELFPAY ==
--- NOTE | ~2022-11-03 | NM_ITS ---
Lexiscan Myocardial perfusion study Indication: Heart block, assess for coronary disease and ischemia Technique: The patient was brought in for a Lexiscan perfusion study on 11/03/2022 and was injected 0.4 mg of Lexiscan intravenously. Within a minute of this injection 25 mCi of sestamibi was given intravenously. Images were obtained using the SPECT gamma camera interlaced with the gating device. Images were obtained in supine position. Resting perfusion study was performed on 11/06/2022. Patient was administered 25 mCi of sestamibi intravenously at rest. Images were then obtained in supine position. Images were processed with the software and compared side to side in short axis, horizontal long axis and vertical long axis views. Total DLP 171mGy-cm. Findings: Raw acquisition reviewed. Arms by the patient's side. The stress perfusion study showed mildly diminished tracer uptake in the distal part of anterior septum as well as inferolateral wall. There is also some reduction of the apex. Adjacent to inferior wall, there is subdiaphragmatic uptake. With CT attenuation correction, possibly improved uptake in the distal inferolateral wall. Anteroseptum distally is somewhat similar. [place] is somewhat worse. The gated study shows diminished LV systolic function with calculated LVEF of 36%. Visually, LVEF appears higher. LV cavity is normal in size. The gated study shows normal wall thickening and contraction of segments. Resting study shows mildly diminished tracer uptake in the distal part of septum and lateral wall. Slightly reduced tracer uptake at the apex.. Gating at rest reveals normal wall motion with ejection fraction at 49%. The findings are consistent with no definitive reversible defects. Fixed defects noted in the distal part of septum/anterior septum and distal inferolateral wall, apex. NM/NM rodolfo perf SPECT rest & str Impression: 1. Myocardial perfusion imaging study shows no definitive evidence of ischemia. Small fixed defects noted in the distal anterior septum/septum and distal inferolateral wall as well as adjacent apex. These could reflect prior subendocardial infarction. Artifact/pacing reported findings also possible. Overall, study quality suboptimal. 2. Gated LVEF is 36% during stress, but visually higher; 49% during rest. 3. Transient ischemic dilatation not present. EKG component of the test reported separately.
--- NOTE | 2022-11-03 07:50 | CA_ITS ---
Acquisition Time: 2022-11-03 09:12:20 Total Exercise Time: 00:02:00 Test Indications: AVB Medications: SEE MED SHEET Protocol: LEXISCAN Max HR: 106 BPM 71% of Pred: 149 BPM Max BP: 126/072 mmHG Max Work Load: 1.0 METS Pharmacological stress test with Lexiscan injection, while sitting, without anginal symptoms, without arrythmia, with normotensive response to injection, with nondiagnostic EKG for ischemia. In recovery she had nausea and vomiting which was treated with Aminophylline 75mg IVP to reverse Lexiscan with resolution of symptom. Nuclear images pending. Test reviewed with Dr Beyer. Referred By: Jose Perez Overread By: ANKITA RINCON
--- NOTE | 2022-11-03 07:50 | CA_ITS ---
Transthoracic Echocardiogram Patient (Last, First, Middle): Kriss Jackson A Gender: Female Date of : 1950 Age: 71 Procedure Date: 11/03/2022 Procedure Type: Transthoracic Echocardiogram Location: OP Height: 144.78 cm Weight: 71.67 kg BSA: 1.63 m2 Heart Rate: bpm BP: 110 / 68 mmHg Embossograph Operator: TO Referring MD: Jose Perez MD Symptoms: I44.2 - Atrioventricular block, complete Study Quality: Fair ECG Rhythm: Sinus Conclusions: - The left ventricular systolic function is low normal. The calculated ejection fraction is 53% by biplane method. - LV peak GLS -14.4%. - There is low normal right ventricular systolic function. - There is mild mitral valve regurgitation. Findings Left Ventricle Normal left ventricular cavity size. The left ventricular systolic function is low normal. The calculated ejection fraction is 53% by biplane method. There is no evidence of regional wall motion abnormalities. There is paradoxical septal motion consistent with a right ventricular pacemaker. E/E prime ratio is >15, consistent with elevated filling pressures. Evidence suggests grade I (mild) diastolic dysfunction. There is mild septal asymmetric hypertrophy. LV peak GLS -14.4%. Right Ventricle Normal right ventricular cavity size. There is low normal right ventricular systolic function. Atria Both atria are normal in size. Aortic Valve There is a normal trileaflet aortic valve. There is no aortic valve stenosis. There is no aortic valve regurgitation. Mitral Valve There is mild mitral annular calcification. There is mild mitral valve regurgitation. There is no mitral valve stenosis. Pulmonic Valve The pulmonic valve is likely normal. Tricuspid Valve There is trace tricuspid valve regurgitation. There is no evidence of pulmonary hypertension. Great Vessels The asc aorta is normal in size. Small plaque is seen in the sino tubular ridge. Venous The inferior vena cava is normal in size and collapses greater than 50% with inspiration. Pericardium/Pleural There is no evidence of pericardial effusion. Prior Study Comparison Changes noted compared to prior study dated: 11/07/2017. Slight reduction in LVEF. Measurements 2D Linear Measurements IVSd: 1.26 0.6-0.9/0.6-1.0 cm LVIDd: 4.03 3.9-5.3/4.2-5.9 cm LVIDd Index: 2.47 2.4-3.2/2.2-3.1 cm/m2 LVIDs: 2.47 2.0-3.6 cm LVPWd: 0.88 0.7-1.1 cm LA Diam: 2.90 2.7-3.8/3.0-4.0 cm LAIDs Index: 1.78 1.5-2.3 cm/m2 LV Mass: 176.69 67-162/88-224 g LV Mass Index: 108.40 43-95/49-115 g/m2 LVOT Diam: 1.80 3.0+(-)1.3 cm 2D Systolic Function EF 4C: 49.90 >55% EF 2C: 58.60 >55% EF BiP: 53.20 >55% Mitral Valve MV VTI: 0.39 MV Pk Angel: 1.25 MV Mn Angel: 0.76 MV Pk Grad: 6.00 MV Mn Grad: 3.00 MV Pk E: 0.84 MV PK A: 1.08 MV Decel Time: 227.00 E/A: 0.80 E'Lateral: 4.90 E'Medial: 4.79 E/E' Med: 17.50 E/E' Lat: 17.10 PHT: 66.00 MVA PHT: 3.33 MVA Continuity: 1.31 Decel [place]: 3.69 Aortic Valve AoV Pk Angel: 1.49 AoV Mn Angel: 1.08 AoV VTI: 0.33 AoV Pk Grad: 9.00 Aov Mn Grad: 5.00 WENDI Cont.VTI: 1.52 LVOT LVOT Pk Angel: 0.97 LVOT Mn Angel: 0.68 LVOT VTI: 0.20 LVOT Pk Grad: 4.00 LVOT Mn Grad: 2.00 LVOT Diam: 1.80 LVOT Area: 2.54 Diastolic Function MV Pk E: 0.84 MV Pk A: 1.08 E/A: 0.80 E'Medial: 4.79 E/E' Med: 17.50 E' Laterial: 4.90 E/E' Lat: 17.10 Right Ventricle TAPSE (mm): 17.20 TVS' Angel: 8.99 Tricuspid Valve TR Pk Angel: 1.86 TR Pk Grad: 14.00 RA Press: 3.00 RVSP: 17.00 Great Vessels Aorta Sinus of Valsalva: 2.65 2.0-3.[address] [place]: 1.87 1.7-3.4 cm Ao Asc: 3.00 2.1-3.4 cm Updated in Other Vendor System with Status of Final Mayank Beyer MD electronically signed on 11/05/2022 9:42:04 AM with status of Final
== END ==
LOC: HO.CARD 07:46
PROVIDERS: PCP Internal Medicine; Visit Provider Internal Medicine Cardiovascular Disease
DX: I44.2 Atrioventricular block, complete (principal)
CPT/HCPCS: 78452; 93017; 93306; 93356; A9500; J0280; J2785

== ENCOUNTER 2022-11-28 12:52 | Outpatient (REF) | payer MEDICARE, SELFPAY ==
[2022-11-28 13:06] LABS: MANUAL DIFF FLAG NO
[2022-11-28 13:31] LABS: Basophils Absolute Auto 0.1 X10*3/uL (0.0-0.2); Basophils Percent Auto 1.1 % (0-2); Eosinophils Absolute Auto 0.3 X10*3/uL (0.0-0.4); Eosinophils Percent Auto 3.8 % (0-4); Hematocrit 32.1 % (37.0-47.0); Hemoglobin 11.1 g/dl (12.0-16.0); Imm Gran Abs Auto 0.03 X10*3/uL (0.00-0.03); Imm Gran Pct Auto 0.3 % (0.0-0.4); Lymphocytes Absolute Auto 1.5 X10*3/uL (1.2-4.9); Lymphocytes Percent Auto 17.6 % (20-40); Mean Corpuscular HGB Conc 34.6 g/dl (31.0-35.0); Mean Corpuscular Hemoglobin 32.6 pg (27.0-33.0); Mean Corpuscular Volume 94.4 fL (80.0-98.0); Monocytes Absolute Auto 0.6 X10*3/uL (0.1-1.2); Monocytes Percent Auto 7.3 % (2-11); Neutrophils Absolute Auto 6.1 x10*3/uL (2.0-8.3); Neutrophils Percent Auto 69.9 % (45-73); Platelet Count 237 X10*3/uL (160-400); Red Cell Distribution Width 14.1 % (11.0-16.0); White Blood Count 8.8 X10*3/uL (4.8-10.8)
[2022-11-28 14:10] LABS: Erythrocyte Sedimentation Rate 10 MM/HR (0-20)
[2022-11-28 14:12] LABS: Alanine Aminotransferase 20 U/L (0-31); Albumin Level 4.3 g/dL (3.5-5.0); Alkaline Phosphatase 67 U/L (39-117); Anion Gap 15 (12-20); Aspartate Amino Transferase 19 U/L (5-31); Bilirubin Total 0.6 mg/dL (0.0-1.0); Blood Urea Nitrogen 27 mg/dL (9-16); C Reactive Protein 0.22 mg/dL (< or = 0.50); Calcium 9.8 mg/dL (8.4-10.2); Carbon Dioxide 27 mmol/L (22-29); Chloride 105 mmol/L (96-108); Estimated Glomerular Filt Rate 40; Glucose Random 90 mg/dL (60-115); Potassium 4.1 mmol/L (3.3-5.1); Sodium 143 mmol/L (135-145); Total Protein 6.6 g/dL (6.5-8.0)
== END 2022-11-28 12:53 | disposition home or self-care (01) ==
LOC: HO.LAB 12:52
PROVIDERS: Absent Provider Internal Medicine Rheumatology; PCP Internal Medicine; Visit Provider Nurse Practitioner Family
DX: M06.9 Rheumatoid arthritis, unspecified (principal)
CPT/HCPCS: 36415; 80053; 85025; 85652; 86140

== ENCOUNTER 2023-01-04 09:50 | Outpatient (AMB) | payer MEDICARE, SELFPAY ==
--- NOTE | 2023-01-04 09:53 | A.OFFPC_ITS ---
Vital Signs 01/04/23 09:55 Height 4 ft 10 in Weight 159 lb 4 oz BMI 33.3 BP 122/76 Blood Pressure Location Lt brachial Position Sitting Pulse 73 Pulse Source Pulse Oximeter Pulse Oximetry (%) 97 Oxygen Delivery Method Room Air Intake Visit Reasons: 3 month f/u Intake Note: Patient is here to follow up on GERD, DM, Asthma, DJD. 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 Learning Support Specialist: Present Accompanied by: Grand Child Allergies duloxetine Allergy (Severe, Verified 01/05/23 12:32) LOOPY codeine [CODEINE] Allergy (Intermediate, Verified 01/05/23 12:32) GI UPSET doxycycline [DOXYCYCLINE] Allergy (Intermediate, Verified 01/05/23 12:32) RASH Sulfa (Sulfonamide Antibiotics) [SULFA (SULFONAMIDE ANTIBIOTICS)] Allergy (Intermediate, Verified 01/05/23 12:32) Hives Medication List - Last Reconciled 01/05/23 by Angel Pablo MD albuterol sulfate 90 mcg/actuation (ProAir HFA) 2 puffs inhalation Q4-6H PRN 30 days aspirin 81 mg PO DAILY atorvastatin 20 mg PO DAILY betamethasone valerate 0.1% 1 appl topical BID PRN blood sugar diagnostic (OneTouch Ultra Test strips) As directed 3x daily cholecalciferol (vitamin D3) 50 mcg PO DAILY famotidine 40 mg PO BID ferrous sulfate 325 mg PO DAILY fluticasone propionate 50 mcg/actuation 2 sprays intranasal DAILY folic acid 1 mg PO DAILY furosemide 20 mg PO DAILY gabapentin 600 mg PO TID hydroxychloroquine 200 mg PO BID insulin glargine (Lantus Solostar U-100 Insulin) 70 units subcut BEDTIME insulin lispro (Humalog Kervin KwikPen (U-100)) 1 sliding scale dose subcut USEASDIRECTD insulin syringe-needle U-100 As directed ketoconazole 2% 1 appl topical BID lamotrigine 50 mg PO QID lidocaine 5% 1 patch topical DAILY lisinopril-hydrochlorothiazide 10-12.5 mg 1 tab PO DAILY 90 days methotrexate sodium 15 mg (6 x 2.5 mg) PO QWEEK metronidazole 1% 1 appl topical DAILY pen needle, diabetic (BD [place] 2nd Gen Pen Needle) As directed sucralfate 3 grams (3 x 1 gram) PO DAILY sumatriptan succinate 50 mg PO walker As directed Tobacco use date assessed: 01/04/23 Fall risk assessment: No Falls in past year Last assessed Fall Risk: 01/04/23 Dental Screening Dental Screen Date: 01/04/23 Did you have a dental visit in the last 12 months?: Yes Did you have a dental problem in the last 6 months where you did not have access to dental care?: No Was dental information given to patient?: Patient has dentist HPI 3 month f/u HPI Details 72-year-old female presents to the office for a sick visit. Since last office visit, patient has had a complete heart block for which a pacemaker has been inserted. She is feeling better. Able to function and do activities of daily living. Continues to have stiffness in her joints. 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 A bone scan was scheduled for her to determine osteoporosis and patient has not gone for the test yet. Received her shingles vaccine. [facility]LY [facility], [facility] Medical History (Updated 11/30/22 @ 16:40 by Jake Holden MD) Allergic rhinitis Asthma Asthma exacerbation Bronchitis Cough variant asthma COVID COVID-19 Decreased hearing DJD (degenerative joint disease) Dysphagia Dyspnea on exertion GERD (gastroesophageal reflux disease) Laryngopharyngeal reflux (LPR) Pacemaker Polyarthralgia Post-menopausal Rheumatoid arthritis Rotator cuff tendinitis Spinal stenosis TIA (transient ischemic attack) Type 2 diabetes 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s Surgical History History of colonoscopy History of esophagogastroduodenoscopy (EGD) Hx of cholecystectomy Hx of hysterectomy Hx of tonsillectomy S/P placement of cardiac pacemaker Family History Father CVD (cardiovascular disease) Diabetes Mother Diabetes Sister No problems noted. Other Substance use disorder Social History Household Members: Family and None Housing: House Are you a primary foster care therapist to a significant other at home: No Do you presently have visiting nurse or other home services: No Alcohol intake: never Patient Tobacco Use Status: Never used Tobacco e-Cigarette/Vaping Use: Never Used Second Hand Smoke Exposure: No Advance Directives Date on File: 08/04/22 service: No Current occupational status: retired Cognitive needs: Yes (walker) Hearing needs: Yes (hearing aide) Vision needs: Yes (glasses) Questionnaire Thrive Questionnaire Date Thrive assessed: 08/15/22 BRITTNEY-7 AMB Questionnaire BRITTNEY-7 Date BRITTNEY - 7 assessed: 08/15/22 Source: Developed by Drs. Jonathan Sandoval, Dodie Tejada, Alberto Elizondo and colleagues, with an educational mark from [employer]. Physical exam (Primary Care) Vital Signs: Last Vital Signs Pulse 73 01/04/23 09:55 BP 122/76 01/04/23 09:55 Pulse Ox 97 01/04/23 09:55 Oxygen Delivery Method Room Air 01/04/23 09:55 BMI result Body Mass Index 33.3 Tobacco/Smoking Status: Tobacco use Status Tobacco use date assessed 01/04/23 01/04/23 10:05 Patient Tobacco Use Status Never used Tobacco 01/04/23 10:05 e-Cigarette/Vaping Use Never Used 01/04/23 10:05 Thrive Assessment: Date of Thrive Assessment Date Thrive assessed 08/15/22 01/04/23 10:05 Const General: cooperative, healthy appearing and comfortable HENMT Head: Yes normal to inspection and Yes atraumatic Eyes General: appearance normal, both eyes and all related structures Neck Neck: Yes normal visual inspection and Yes full ROM Chest Chest palpation & inspection: normal inspection of the chest and crepitus Resp Effort & Inspection: normal respiratory effort Auscultation: clear to auscultation bilaterally Cardio Jugular venous distension: no JVD Palpation: normal PMI Rate: regular rate Heart sounds: S1 normal heart sound present and S2 normal heart sound present GI Palpation (GI): Soft to palpation and No hepatosplenomegaly present Extrem General: Yes normal to inspection and Yes full ROM Results AMB Hemoglobin A1c AMB Hemoglobin A1c 5.2 % Last Edit by GIANA Dailey on 01/04/23 10:06 Results Reviewed Results Reviewed: Laboratory Last Values Hgb A1c (Clinic) 5.2 % (4.0-6.0) 01/04/23 09:52 Assessment and Plan Assessment & Plan (1) Pacemaker: Code(s): Z95.0 - Presence of cardiac pacemaker Plan: Condition is stable. 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 Continue medications at same dosage. Orders: Orders AMB Hemoglobin A1c 01/04/23 E11.9 - Type 2 diabetes 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s Medications: Refilled furosemide 20 mg PO DAILY 30 tabs 0RF Coding Level of Care Code Est Pt Level 4 (80945) Diagnoses Pacemaker Z95.0 Type 2 diabetes 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s E11.9; Z79.4 Diabetes mellitus alf insulin use: with termite treater use
[2023-01-04 09:55] VITALS: BP 122/76; PULSE 73; O2SAT 97; BMI 33.3
== END 2023-01-04 11:05 | disposition home or self-care (01) ==
PROVIDERS: Visit Provider Internal Medicine
DX: Z95.0 Presence of cardiac pacemaker (principal); E11.9 Type 2 diabetes 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s; Z79.4 Long term (current) use of insulin
CPT/HCPCS: 83036; 99214

== ENCOUNTER 2023-01-08 09:54 | Outpatient (AMB) | payer MEDICARE, SELFPAY ==
--- NOTE | 2023-01-08 09:58 | MHC.OFFVIS ---
Intake Vital Signs 01/08/23 09:59 Height 4 ft 10 in Weight 158 lb 11.725 oz BMI 33.2 BP 110/66 Blood Pressure Location Lt brachial Position Sitting Pulse 84 Intake Visit Reasons: 3 mth f/up mibi/ echo Intake Note: 3 month follow=up after stress and echo with [facility] c/o fatigue Student Activities Director Required: No Allergies duloxetine Allergy (Severe, Verified 01/05/23 12:32) LOOPY codeine [CODEINE] Allergy (Intermediate, Verified 01/05/23 12:32) GI UPSET doxycycline [DOXYCYCLINE] Allergy (Intermediate, Verified 01/05/23 12:32) RASH Sulfa (Sulfonamide Antibiotics) [SULFA (SULFONAMIDE ANTIBIOTICS)] Allergy (Intermediate, Verified 01/05/23 12:32) Hives Medication List - Last Reconciled 01/08/23 by Jose Perez MD albuterol sulfate 90 mcg/actuation (ProAir HFA) 2 puffs inhalation Q4-6H PRN 30 days aspirin 81 mg PO DAILY atorvastatin 20 mg PO DAILY betamethasone valerate 0.1% 1 appl topical BID PRN blood sugar diagnostic (OneTouch Ultra Test strips) As directed 3x daily cholecalciferol (vitamin D3) 50 mcg PO DAILY famotidine 40 mg PO BID ferrous sulfate 325 mg PO DAILY fluticasone propionate 50 mcg/actuation 2 sprays intranasal DAILY folic acid 1 mg PO DAILY furosemide 20 mg PO DAILY gabapentin 600 mg PO TID hydroxychloroquine 200 mg PO BID insulin glargine (Lantus Solostar U-100 Insulin) 70 units subcut BEDTIME insulin lispro (Humalog Kervin KwikPen (U-100)) 1 sliding scale dose subcut USEASDIRECTD insulin syringe-needle U-100 As directed ketoconazole 2% 1 appl topical BID lamotrigine 50 mg PO QID lidocaine 5% 1 patch topical DAILY lisinopril-hydrochlorothiazide 10-12.5 mg 1 tab PO DAILY 90 days methotrexate sodium 15 mg (6 x 2.5 mg) PO QWEEK metronidazole 1% 1 appl topical DAILY pen needle, diabetic (BD [place] 2nd Gen Pen Needle) As directed sucralfate 3 grams (3 x 1 gram) PO DAILY sumatriptan succinate 50 mg PO walker As directed HPI HPI Comments History of Present Illness Details Kriss comes for follow-up. Patient complains of symptoms of fatigue and shortness of breath although unchanged. Her echocardiogram shows LVEF of 53% which is low end of normal with mild mitral regurgitation. Stress test negative for ischemia. She has no obvious significant structural heart disease explaining a complete heart block. She denies any orthopnea, PND, leg edema. Denies any lightheadedness, syncope. Takes all her medications. [facility] Medical History Allergic rhinitis Asthma Asthma exacerbation Bronchitis Cough variant asthma COVID COVID-19 Decreased hearing DJD (degenerative joint disease) Dysphagia Dyspnea on exertion GERD (gastroesophageal reflux disease) Laryngopharyngeal reflux (LPR) Pacemaker Polyarthralgia Post-menopausal Rheumatoid arthritis Rotator cuff tendinitis Spinal stenosis TIA (transient ischemic attack) Type 2 diabetes 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s Surgical History History of colonoscopy History of esophagogastroduodenoscopy (EGD) Hx of cholecystectomy Hx of hysterectomy Hx of tonsillectomy S/P placement of cardiac pacemaker Family History Father CVD (cardiovascular disease) Diabetes Mother Diabetes Sister No problems noted. Other Substance use disorder Social History Household Members: Family and None Housing: House Are you a primary lpn care manager to a significant other at home: No Do you presently have visiting nurse or other home services: No Alcohol intake: never Patient Tobacco Use Status: Never used Tobacco e-Cigarette/Vaping Use: Never Used Second Hand Smoke Exposure: No Advance Directives Date on File: 08/04/22 service: No Current occupational status: retired Cognitive needs: Yes (walker) Hearing needs: Yes (hearing aide) Vision needs: Yes (glasses) Review of Systems Const Denies chills, Denies fatigue, Denies fever(s), Denies frequent falls, Denies weakness, Denies weight gain and Denies weight loss ENT Denies dizziness Card Denies chest pain, Denies leg edema, Denies lightheadedness, Denies palpitations, Denies dyspnea, Denies dyspnea on exertion, Denies orthopnea and Denies other (loss of consciousness) Resp Denies cough, Denies dyspnea and Denies dyspnea on exertion GI Denies hematochezia and Denies change in stool character Musc Denies abnormal gait, Denies muscle weakness, Denies numbness, Denies radiating pain into limb and Denies tingling Neuro Denies Abnormal speech present, Denies abnormal gait, Denies dizziness, Denies frequent falls, Denies numbness, Denies tingling and Denies weakness Endo Denies fatigue and Denies palpitations Physical Exam Vital Signs: Last Vital Signs Pulse 84 01/08/23 09:59 BP 110/66 01/08/23 09:59 BMI result Body Mass Index 33.2 Const General: cooperative, comfortable, no acute distress, alert, awake and well groomed Nutritional Appearance: overweight Orientation/consciousness: patient oriented x3 Limitations: ambulation with walker Neck Neck: Yes trachea midline, Yes supple and Yes no JVD Resp Effort & Inspection: normal respiratory effort Auscultation: clear to auscultation bilaterally Cardio Jugular venous distension: no JVD Palpation: normal PMI Rate: regular rate Rhythm: regular rhythm Heart sounds: S1 normal heart sound present, S2 normal heart sound present, no click, no gallops, no murmurs and no rubs Bruits: no carotid bruits Neuro General: patient oriented x3 and no focal motor deficits Speech: No Abnormal speech present Extrem General: Yes no clubbing, cyanosis or edema Office Procedures Cardiac Device Check Cardiac Device Check Details: Dual-chamber [place] [facility] pacemaker in place. Programmed in DDDR at 60 beats per minute. Ventricularly pacer dependent. Atrial capture thresholds excellent and in our capture mode. Ventricular capture thresholds are excellent and reprogrammed to enhance battery life. Atrial sensing is excellent. Pacing lead impedance is stable. Battery life is excellent [id number] Cardiac Device Check, pacemaker dual lead Procedure code (CPT) selection complete Assessment & Plan Assessment & Plan (1) Complete heart block: Code(s): I44.2 - Atrioventricular block, complete Plan: Complete heart block without any obvious significant pathology identified on a stress test or echocardiogram. Most likely idiopathic in nature. Patient has no obvious signs at this point time. Pacemaker is working really well. Patient's pacer dependent in the ventricle. Patient with RV pacing could developed pacing related cardiomyopathy. This was discussed with her. She is advised to call me with any new symptoms of heart failure. Will follow-up echocardiogram in 1 year. Will follow the pacemaker remotely every 3 months. Follow up in the clinic in 6 months time. Continue aggressive vascular risk factor modification. Diabetes under your care with goal hemoglobin A1c less than 7%. Goal LDL less than 70 mg/dL. Encouraged to continue maintain activity level as tolerated. Will follow up in the clinic in 6 months time, sooner p.r.n.. Thank you for allowing me to partake in her care Coding Level of Care Code Est Pt Level 4 (59996) Diagnoses Complete heart block I44.2 CPT Codes Cardiac Device Check - Cardiac Device 2: [id number] Cardiac Device Check, pacemaker dual lead ([id number])
[2023-01-08 09:59] VITALS: BP 110/66; PULSE 84; BMI 33.2
== END 2023-01-08 10:17 | disposition home or self-care (01) ==
PROVIDERS: Visit Provider Internal Medicine Cardiovascular Disease
DX: I44.2 Atrioventricular block, complete (principal)
CPT/HCPCS: 93280; 99214

== ENCOUNTER → 2023-01-08 09:54 | Outpatient (BNVA) | payer MEDICARE, SELFPAY | PROVIDERS: Visit Provider Internal Medicine Cardiovascular Disease | DX: I44.2 Atrioventricular block, complete (principal); Z45.018 Encounter for adjustment and management of other part of cardiac pacemaker | CPT/HCPCS: 93280; 99212 ==

== ENCOUNTER 2023-01-17 10:16 | Outpatient (AMB) | payer MEDICARE, SELFPAY ==
--- NOTE | 2023-01-17 10:20 | MHC.OFFVIS ---
Intake Vital Signs 01/17/23 10:26 Height 4 ft 10 in Weight 160 lb BMI 33.4 BP 114/60 Blood Pressure Location Rt brachial Position Sitting Respiration 16 Pulse 69 Pulse Source Pulse Oximeter Temp 97.3 F Temp Source Skin Pulse Oximetry (%) 96 Oxygen Delivery Method Room Air Intake Visit Reasons: Rheumatoid Arthritis Allergies duloxetine Allergy (Severe, Verified 01/17/23 10:30) LOOPY codeine [CODEINE] Allergy (Intermediate, Verified 01/17/23 10:30) GI UPSET doxycycline [DOXYCYCLINE] Allergy (Intermediate, Verified 01/17/23 10:30) RASH Sulfa (Sulfonamide Antibiotics) [SULFA (SULFONAMIDE ANTIBIOTICS)] Allergy (Intermediate, Verified 01/17/23 10:30) Hives HPI HPI Comments History of Present Illness Details The patient presents today for evaluating her rheumatoid arthritis, last seen by Barbie. She remains on 15 mg weekly methotrexate, folic acid 1 mg daily, and hydroxychloroquine 200 mg twice a day. She says she feels the hands are stiff in the mornings particularly the PIP regions. However she thinks the RA picture here is under good control with current treatment. She has trouble walking she says because she feels unsteady on her feet. She does not really have pain with walking. She usually walks with a walker. She does have some nocturnal paresthesias in the feet consistent with diabetic neuropathy however. She does take gabapentin 600 mg 3 times a day for the neuropathy. [facility] Medical History Allergic rhinitis Asthma Asthma exacerbation Bronchitis Cough variant asthma COVID COVID-19 Decreased hearing DJD (degenerative joint disease) Dysphagia Dyspnea on exertion GERD (gastroesophageal reflux disease) Laryngopharyngeal reflux (LPR) Pacemaker Polyarthralgia Post-menopausal Rheumatoid arthritis Rotator cuff tendinitis Spinal stenosis TIA (transient ischemic attack) Type 2 diabetes 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s Surgical History History of colonoscopy History of esophagogastroduodenoscopy (EGD) Hx of cholecystectomy Hx of hysterectomy Hx of tonsillectomy S/P placement of cardiac pacemaker Family History Father CVD (cardiovascular disease) Diabetes Mother Diabetes Sister No problems noted. Other Substance use disorder Social History Household Members: Family and None Housing: House Are you a primary geriatric personal care aide to a significant other at home: No Do you presently have visiting nurse or other home services: No Alcohol intake: never Patient Tobacco Use Status: Never used Tobacco e-Cigarette/Vaping Use: Never Used Second Hand Smoke Exposure: No Advance Directives Date on File: 08/04/22 service: No Current occupational status: retired Cognitive needs: Yes (walker) Hearing needs: Yes (hearing aide) Vision needs: Yes (glasses) Review of Systems Const Details: Low stamina. Negative for appetite change, weight change, fever, chills, malaise. Eyes Details: Negative for vision change, dry eyes,headaches and dizziness ENT Details: Negative for hearing change, tinnitus, oral ulcer, nose bleeds and oral dryness. Card Details: Negative chest pain, edema and syncope Resp Details: Negative for SOB, cough and wheezing GI Details: Negative indigestion/heartburn, nausea, abdominal pain, bowel changes, diarrhea, constipation and bloody stool. Neuro Details: Negative for epilepsy, palsy, stroke, changes in speech, tingling and weakness Endo Details: Negative for polyuria and polydypsia Umer/Lymph Details: Negative for excessive bruising or bleeding. Physical Exam Vital Signs: Last Vital Signs Temp 97.3 F 01/17/23 10:26 Pulse 69 01/17/23 10:26 Resp 16 01/17/23 10:26 BP 114/60 01/17/23 10:26 Pulse Ox 96 01/17/23 10:26 Oxygen Delivery Method Room Air 01/17/23 10:26 BMI result Body Mass Index 33.4 APPEARANCE: Patient in no acute distress EYES no redness, pupils equal and reactive to light, eyelids normal EXTREMITIES: No edema, no calf tenderness, normal peripheral pulses. JOINT EXAM: Cervical Spine:? Full range of motion without pain; no tenderness. Thoracic Spine:?? No tenderness on palpation. Lumbar Spine:? Alignment normal.? Full range of motion, some pain with flexion, slight tenderness to palpation over lumbar spine. Hands:? LEFT:? There is slight puffiness across the MCPs but they are not tender. There is no flexor tendon triggering, thenar atrophy or sensory loss. There is slightly tender bony enlargement at the base of the thumb. There is mild bony enlargement without tenderness at the 2nd through 5th PIP joints. Right: There is mild bony enlargement without tenderness at the thumb IP, 2nd D IP and 3rd D IP joint. There is no MCP swelling or tenderness. Wrists: Normal pain-free range of motion without tenderness, swelling, increased warmth or erythema. Elbows: Normal pain-free range of motion without tenderness, swelling, increased warmth or erythema. Shoulders:? Right: Mild pain with extremes of normal range of motion. There is some mild anterior tenderness without abductor weakness or adenopathy. Left: Full range of motion without pain. No tenderness, weakness, swelling, increased warmth or erythema. Hips: The Full range of motion without pain. Hip bursa:? No tenderness. Knees:?? Normal pain-free range of motion without tenderness, swelling, increased warmth or erythema.? There is no effusion or crepitation Ankles: Normal pain-free range of motion without tenderness, swelling, increased warmth or erythema. Feet: Normal pain-free range of motion with mild bony enlargement without tenderness at the 1st MTP. There is some prominence at the proximal end of the 5th metatarsal. This area is slightly tender but there is no redness or soft tissue swelling. Other joints have no tenderness, swelling, increased warmth or erythema. ? Results Reviewed Results Reviewed: Laboratory Tests 11/28/22 11/28/22 11/28/22 13:04 13:04 13:04 WBC 8.8 Hgb 11.1 L ESR 10 Creatinine 1.30 AST 19 ALT 20 C-Reactive Protein 0.22 [place] [id number] XRay Report Signed Patient: Kriss Jackson MR#: [id number] : 1950 Acct:[id number] Age/Sex: 69 / F ADM Date: 11/12/[address]: Nathalia Washington MD Ordering Physician: Nathalia Washington MD Date of Service: 11/12/20 Procedure(s): XR hand wrist RT Accession Number(s): [id number] cc: Nathalia Washington MD~ EXAMINATION: BILATERAL HAND AND WRIST X-RAY CLINICAL INFORMATION: Rheumatoid arthritis? COMPARISON: None? TECHNIQUE: 4 views of each hand and wrist? FINDINGS: Left: Bone alignment is normal. No fracture or dislocation is seen. There is osteoarthritis at the IP joints with joint space narrowing and osteophyte formation. There is question of a small erosion or cyst of the radial styloid. There is some some adjacent soft tissue ossification as well. It is possible this is related to old trauma. Carpal bones are otherwise normal. Soft tissues are otherwise normal. Right: Bone alignment is normal. No fracture or dislocation is seen. There is mild osteoarthritis at the IP joint of the thumb with joint space narrowing and osteophyte formation. There is a small cyst or erosion of the ulnar styloid. Carpal bones are otherwise normal. Soft tissues are normal. 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 Small cyst or erosion of the right ulnar styloid. Question small cyst or erosion of the left radial styloid.? Dictated By: GLEN HOSKINS MD Assessment & Plan Assessment & Plan (1) Long-term use of hydroxychloroquine: Comment: For RA since ?. 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 Around 2018 or 2019-January 2022 Plaquenil: Start date unknown ? Around 2018 or 2019 Oral methotrexate- January 2022 to present Code(s): M06.9 - Rheumatoid arthritis, unspecified Qualifiers: Rheumatoid arthritis location: multiple sites Rheumatoid factor presence: without rheumatoid factor Qualified Code(s): M06.09 - Rheumatoid arthritis without rheumatoid factor, multiple sites Plan I think she has good control of synovitis from her rheumatoid arthritis with her current treatment. She has a few joints in the hands and the feet that are likely bothersome due to osteoarthritis. She has some numbness in the feet suggesting some neuropathy. This could be giving her some difficulty with her walking and balance. I suggested physical therapy referral to learn exercises to try to improve that but she does not want to proceed with that for now. She had good lab work when last checked so we will continue with current medications. Additional lab work was recommended for February and April. A follow-up in 4 months was recommended. Orders: Orders Alanine Aminotransferase 01/11/23 M06.9 - Rheumatoid arthritis, unspecified, Z79.899 - Other longterm (current) drug therapy Aspartate Amino Transferase 01/11/23 M06.9 - Rheumatoid arthritis, unspecified, Z79.899 - Other termite technician (current) drug therapy Creatinine 01/11/23 M06.9 - Rheumatoid arthritis, unspecified, Z79.899 - Other termite technician (current) drug therapy C Reactive Protein 01/11/23 M06.9 - Rheumatoid arthritis, unspecified Complete Blood Count Auto Diff 01/11/23 M06.9 - Rheumatoid arthritis, unspecified, Z79.899 - Other longterm (current) drug therapy Erythrocyte Sedimentation Rate 01/11/23 M06.9 - Rheumatoid arthritis, unspecified Medications: Refilled hydroxychloroquine 200 mg PO BID 180 tabs 2RF M06.09 - Rheumatoid arthritis without rheumatoid factor, multiple sites Coding Level of Care Code Est Pt Level 3 (29346) Diagnoses Long-term use of hydroxychloroquine Z79.899 Osteoarthritis of hands, bilateral M19.041; M19.042 group home use of drug Z79.899 Rheumatoid arthritis M06.09 Rheumatoid arthritis location: multiple sites Rheumatoid factor presence: without rheumatoid factor
[2023-01-17 10:26] VITALS: BP 114/60; PULSE 69; RESP 16; TEMP 36.3; O2SAT 96; BMI 33.4
== END 2023-01-17 11:47 | disposition home or self-care (01) ==
PROVIDERS: PCP Internal Medicine; Visit Provider Internal Medicine Rheumatology
DX: Z79.899 Other long term (current) drug therapy (principal); M19.041 Primary osteoarthritis, right hand; M19.042 Primary osteoarthritis, left hand; M06.09 Rheumatoid arthritis without rheumatoid factor, multiple sites
CPT/HCPCS: 99213

== ENCOUNTER → 2023-01-17 10:16 | Outpatient (BNVA) | payer MEDICARE, SELFPAY | PROVIDERS: PCP Internal Medicine; Visit Provider Internal Medicine Rheumatology | DX: M06.9 Rheumatoid arthritis, unspecified (principal); M19.042 Primary osteoarthritis, left hand; M19.041 Primary osteoarthritis, right hand; Z79.899 Other long term (current) drug therapy | CPT/HCPCS: 99212 ==

== ENCOUNTER 2023-01-23 08:42 | Outpatient (REF) | payer MEDICARE, SELFPAY ==
--- NOTE | ~2023-01-23 | MM_ITS ---
EXAMINATION: BONE DENSITOMETRY CLINICAL INDICATION: Osteopenia. COMPARISON: Baseline BD dated 12/02/2020. TECHNIQUE: Using a [employer] DXA System (software version: 13.1) manufactured by [employer], dual-energy x-ray absorptiometry was performed of the lumbar spine and left hip. The images are of good technical quality. Summary results are attached. FINDINGS: AP SPINE L1-L2 (excluding L3 and L4): The data of L1-L4 has been changed to exclude the L3 and L4 vertebral bodies, because degenerative sclerosis at these levels may cause overestimation of lumbar spine density. Current: BMD 1.032 g/cm2, Z-score 0.3, T-score -1.1, osteopenia, 2.0% increase from baseline (<5% change is not significant). Baseline: BMD 1.012 g/cm2. LEFT FEMUR, NECK: Current: BMD 0.745 g/cm2, Z-score -0.5, T-score -2.1, osteopenia. Baseline: BMD 0.975 g/cm2. LEFT FEMUR, TOTAL: Current: BMD 0.882 g/cm2, Z-score 0.4, T-score -1.0, normal, 18.2% decrease from baseline (<5% change is not significant). Baseline: BMD 1.078 g/cm2. IDENTIFIED RISK FACTORS: Rheumatoid arthritis. Height loss. Secondary osteoporosis (early menopause). Chronic glucocorticoids. HISTORY OF FRACTURE: None listed. MEDICATIONS: Vitamin D. MM/XR DEXA axial skeleton IMPRESSION: 1. DIAGNOSIS: Osteopenia based on the lowest T-score value of -2.1 in the femoral neck applying World Health Organization criteria. 2. 10-YEAR FRACTURE RISK PREDICTION, FRAX: Major osteoporotic fracture (clinical spine, forearm, hip or shoulder) 24.2%. Hip fracture 6.7%. 3. Treatment Recommendations: NOF guidelines recommend consideration for treatment in postmenopausal women and men age 50 and older presenting with the following: -A hip or vertebral (clinical or morphometric) fracture. -T-score less than or equal to -2.5 at the femoral neck or spine after appropriate evaluation to exclude secondary causes. -Low bone mass at the hip or spine and a 10-year fracture probability by FRAX of greater than or equal to 3% for hip fracture or greater than or equal to 20% for major osteoporotic fracture based on the [place] adapted WHO algorithm. 4. Other Recommendations: All treatment decisions require clinical judgment and consideration of individual patient factors, including patient preferences, comorbidities, previous drug use, risk factors not captured in the FRAX model (e.g. frailty, falls, vitamin D deficiency, increased bone turnover, interval significant decline in bone density) and possible under or overestimation of fracture risk by FRAX. Additional medical evaluation for secondary cause of low bone mineral density may be appropriate. FUTURE SCAN RECOMMENDATION: People with diagnosed cases of osteoporosis or at high risk for fracture should have regular bone mineral density tests. For patients eligible for Medicare, routine testing is allowed once every 2 years. The testing frequency can be increased to one year for patients who have rapidly progressing disease, those who are receiving or discontinuing medical therapy to restore bone mass, or have additional risk factors.
== END 2023-01-23 08:43 | disposition home or self-care (01) ==
LOC: HO.MAMMO 08:42
PROVIDERS: PCP Internal Medicine; Visit Provider Internal Medicine Rheumatology
DX: Z13.820 Encounter for screening for osteoporosis (principal); M85.88 Other specified disorders of bone density and structure, other site; Z78.0 Asymptomatic menopausal state
CPT/HCPCS: 77080

== ENCOUNTER → 2023-01-23 08:45 | Outpatient (BNV) | payer MEDICARE, SELFPAY | PROVIDERS: PCP Internal Medicine; Visit Provider Radiology Diagnostic Radiology | DX: M85.80 Other specified disorders of bone density and structure, unspecified site (principal) | CPT/HCPCS: 77080 ==

== ENCOUNTER → 2023-02-05 23:59 | Outpatient (BNV) | payer MEDICARE, SELFPAY ==
--- NOTE | 2023-02-05 11:12 | MHC.OFFVIS ---
Intake Intake Visit Reasons: Remote Pacer monitoring- [facility] Allergies duloxetine Allergy (Severe, Verified 01/17/23 10:30) LOOPY codeine [CODEINE] Allergy (Intermediate, Verified 01/17/23 10:30) GI UPSET doxycycline [DOXYCYCLINE] Allergy (Intermediate, Verified 01/17/23 10:30) RASH Sulfa (Sulfonamide Antibiotics) [SULFA (SULFONAMIDE ANTIBIOTICS)] Allergy (Intermediate, Verified 01/17/23 10:30) Hives PFSH Medical History Allergic rhinitis Asthma Asthma exacerbation Bronchitis Cough variant asthma COVID COVID-19 Decreased hearing DJD (degenerative joint disease) Dysphagia Dyspnea on exertion GERD (gastroesophageal reflux disease) Laryngopharyngeal reflux (LPR) Pacemaker Polyarthralgia Post-menopausal Rheumatoid arthritis Rotator cuff tendinitis Spinal stenosis TIA (transient ischemic attack) Type 2 diabetes 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s Surgical History History of colonoscopy History of esophagogastroduodenoscopy (EGD) Hx of cholecystectomy Hx of hysterectomy Hx of tonsillectomy S/P placement of cardiac pacemaker Family History Father CVD (cardiovascular disease) Diabetes Mother Diabetes Sister No problems noted. Other Substance use disorder Social History Household Members: Family and None Housing: House Are you a primary healthcare science specialist to a significant other at home: No Do you presently have visiting nurse or other home services: No Alcohol intake: never Patient Tobacco Use Status: Never used Tobacco e-Cigarette/Vaping Use: Never Used Second Hand Smoke Exposure: No Advance Directives Date on File: 08/04/22 service: No Current occupational status: retired Cognitive needs: Yes (walker) Hearing needs: Yes (hearing aide) Vision needs: Yes (glasses) Office Procedures Cardiac Device Check Cardiac Device Check Details: Remote pacemaker report generated 02/05/2023. Pacemaker function is adequate [id number] Cardiac Device Interrogation, pacemaker Procedure code (CPT) selection complete Coding Level of Care Code Procedure Only Diagnoses CPT Codes Cardiac Device Check - Cardiac Device 12: [id number] Cardiac Device Interrogation, pacemaker ([id number])
== END ==
PROVIDERS: PCP Internal Medicine; Visit Provider Internal Medicine Cardiovascular Disease
DX: I44.2 Atrioventricular block, complete (principal); Z95.0 Presence of cardiac pacemaker
CPT/HCPCS: 93294

== ENCOUNTER 2023-02-13 10:21 | Outpatient (AMB) | payer MEDICARE, SELFPAY ==
[2023-02-13 10:26] VITALS: BP 104/60; PULSE 63; TEMP 36.1; O2SAT 96; BMI 33.4
--- NOTE | 2023-02-13 10:26 | MHC.OFFVIS ---
Intake Vital Signs 02/13/23 10:26 Height 4 ft 10 in Weight 160 lb 0.889 oz BMI 33.4 BP 104/60 Blood Pressure Location Rt brachial Position Sitting Pulse 63 Pulse Source Pulse Oximeter Temp 97 F Temp Source Skin Pulse Oximetry (%) 96 Oxygen Delivery Method Room Air Intake Visit Reasons: Osteoporosis Intake Note: Here for osteoporosis follow up. 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 Basically that showed osteopenia with a FRAX analysis suggesting a 10 year fracture risk at 24.7% and a hip fracture risk of 6.7%. The femoral neck and total femur densities were considerably lower than they were 2 years ago. She does not recall any fractures in the past. She remains on methotrexate and hydroxychloroquine for the RA. She does have significant problems with GERD. She was on omeproazole before but now with adding sucralfate she has been able to switch to famotidine. She also seems to have irritable bowel symptoms. [facility] Medical History Allergic rhinitis Asthma Asthma exacerbation Bronchitis Cough variant asthma COVID COVID-19 Decreased hearing DJD (degenerative joint disease) Dysphagia Dyspnea on exertion GERD (gastroesophageal reflux disease) Laryngopharyngeal reflux (LPR) Pacemaker Polyarthralgia Post-menopausal Rheumatoid arthritis Rotator cuff tendinitis Spinal stenosis TIA (transient ischemic attack) Type 2 diabetes 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s Surgical History History of colonoscopy History of esophagogastroduodenoscopy (EGD) Hx of cholecystectomy Hx of hysterectomy Hx of tonsillectomy S/P placement of cardiac pacemaker Family History Father CVD (cardiovascular disease) Diabetes Mother Diabetes Sister No problems noted. Other Substance use disorder Social History (Updated 02/13/23 @ 10:31 by GIANA Jones) Household Members: Family and None Housing: House Are you a primary medicare specialist to a significant other at home: No Do you presently have visiting nurse or other home services: No Alcohol intake: former Patient Tobacco Use Status: Never used Tobacco e-Cigarette/Vaping Use: Never Used Second Hand Smoke Exposure: No Advance Directives Date on File: 08/04/22 service: No Current occupational status: retired Cognitive needs: Yes (walker) Hearing needs: Yes (hearing aide) Vision needs: Yes (glasses) Review of Systems Const Details: Negative for appetite change, weight change, fever, chills, malaise and fatigue Card Details: Negative chest pain, edema and syncope Resp Details: Negative for SOB, cough and wheezing GI Details: Negative indigestion/heartburn, nausea, abdominal pain, bowel changes, diarrhea, constipation and bloody stool. Physical Exam Vital Signs: Last Vital Signs Temp 97 F 02/13/23 10:26 Pulse 63 02/13/23 10:26 BP 104/60 02/13/23 10:26 Pulse Ox 96 02/13/23 10:26 Oxygen Delivery Method Room Air 02/13/23 10:26 BMI result Body Mass Index 33.4 APPEARANCE: Patient in no acute distress ABD: Normal bowel sounds, no organomegaly, masses or tenderness. EXTREMITIES: No edema, no calf tenderness, normal peripheral pulses. Results Reviewed Results Reviewed: [address] [place] [address] Mammography Report Signed Patient: Kriss Jackson MR#: [id number] : 1950 Acct:[id number] Age/Sex: 72 / F ADM Date: 01/23/[address]: Jake Holden MD Ordering Physician: Jake Holden MD Results: Date of Service: 01/23/23 Follow Up: Procedure(s): XR DEXA axial skeleton Accession Number(s): [id number] cc: Jake Holden MD~ EXAMINATION: BONE DENSITOMETRY CLINICAL INDICATION: Osteopenia. COMPARISON: Baseline BD dated 12/02/2020. TECHNIQUE: Using a [employer] DXA System (software version: 13.1) manufactured by [employer], dual-energy x-ray absorptiometry was performed of the lumbar spine and left hip. The images are of good technical quality. Summary results are attached. FINDINGS: AP SPINE L1-L2 (excluding L3 and L4): The data of L1-L4 has been changed to exclude the L3 and L4 vertebral bodies, because degenerative sclerosis at these levels may cause overestimation of lumbar spine density. Current: BMD 1.032 g/cm2, Z-score 0.3, T-score -1.1, osteopenia, 2.0% increase from baseline (<5% change is not significant). Baseline: BMD 1.012 g/cm2. LEFT FEMUR, NECK: Current: BMD 0.745 g/cm2, Z-score -0.5, T-score -2.1, osteopenia. Baseline: BMD 0.975 g/cm2. LEFT FEMUR, TOTAL: Current: BMD 0.882 g/cm2, Z-score 0.4, T-score -1.0, normal, 18.2% decrease from baseline (<5% change is not significant). Baseline: BMD 1.078 g/cm2. IDENTIFIED RISK FACTORS: Rheumatoid arthritis. Height loss. Secondary osteoporosis (early menopause). Chronic glucocorticoids. HISTORY OF FRACTURE: None listed. MEDICATIONS: Vitamin D. MM/XR DEXA axial skeleton IMPRESSION: 1. DIAGNOSIS: Osteopenia based on the lowest T-score value of -2.1 in the femoral neck applying World Health Organization criteria.? 2. 10-YEAR FRACTURE RISK PREDICTION, FRAX: Major osteoporotic fracture (clinical spine, forearm, hip or shoulder) 24.2%. Hip fracture 6.7%. 3. Treatment Recommendations: NOF guidelines recommend consideration for treatment in postmenopausal women and men age 50 and older presenting with the following: -A hip or vertebral (clinical or morphometric) fracture. -T-score less than or equal to -2.5 at the femoral neck or spine after appropriate evaluation to exclude secondary causes. -Low bone mass at the hip or spine and a 10-year fracture probability by FRAX of greater than or equal to 3% for hip fracture or greater than or equal to 20% for major osteoporotic fracture based on the [place] adapted WHO algorithm. 4. Other Recommendations: All treatment decisions require clinical judgment and consideration of individual patient factors, including patient preferences, comorbidities, previous drug use, risk factors not captured in the FRAX model (e.g. frailty, falls, vitamin D deficiency, increased bone turnover, interval significant decline in bone density) and possible under or overestimation of fracture risk by FRAX. Additional medical evaluation for secondary cause of low bone mineral density may be appropriate. ? FUTURE SCAN RECOMMENDATION: People with diagnosed cases of osteoporosis or at high risk for fracture should have regular bone mineral density tests. For patients eligible for Medicare, routine testing is allowed once every 2 years. The testing frequency can be increased to one year for patients who have rapidly progressing disease, those who are receiving or discontinuing medical therapy to restore bone mass, or have additional risk factors. Dictated By: Lowell Hooks MD Signed By: Assessment & Plan Assessment & Plan (1) Osteopenia: Comment: 11/2020 T scores: AP SPINE -1.3;LEFT FEMUR, NECK:-0.5;R, Left FEMUR TOTAL: 0.6; FRAX 14.5%/1.2% 01/2023: Spine -1.1, fem neck -2.1, hip -1.0.Frax 24.2/6.7 Code(s): M85.80 - Other specified disorders of bone density and structure, unspecified site Plan We discussed the pros and cons of treatment with bisphosphonates for osteopenia. Given her very symptomatic GERD requiring 2 different medications I think we should avoid oral bisphosphonates and go directly to zoledronic acid 5 mg every year. She was given some information on that drug to review. In the meantime we will see if we get approval of that by her insurance. We will recheck her calcium and vitamin-D levels. She has follow-up planned for her RA but we will try to get her the zoledronic acid infusion before that. Orders: Orders Vitamin D 25-OH (D2 and D3) Today M85.80 - Other specified disorders of bone density and structure, unspecified site Basic Metabolic Panel Today M85.80 - Other specified disorders of bone density and structure, unspecified site Coding Level of Care Code Est Pt Level 3 (78614) Diagnoses Osteopenia M85.80
== END 2023-02-13 11:11 | disposition home or self-care (01) ==
PROVIDERS: PCP Internal Medicine; Visit Provider Internal Medicine Rheumatology
DX: M85.80 Other specified disorders of bone density and structure, unspecified site (principal)
CPT/HCPCS: 99213

== ENCOUNTER → 2023-02-13 10:21 | Outpatient (BNVA) | payer MEDICARE, SELFPAY | PROVIDERS: PCP Internal Medicine; Visit Provider Internal Medicine Rheumatology | DX: M85.80 Other specified disorders of bone density and structure, unspecified site (principal) | CPT/HCPCS: 99212 ==

== ENCOUNTER 2023-02-16 15:09 | Outpatient (REF) | payer MEDICARE, SELFPAY ==
[2023-02-16 15:26] LABS: MANUAL DIFF FLAG NO
[2023-02-16 15:32] LABS: Basophils Absolute Auto 0.1 X10*3/uL (0.0-0.2); Basophils Percent Auto 1.2 % (0-2); Eosinophils Absolute Auto 0.4 X10*3/uL (0.0-0.4); Eosinophils Percent Auto 3.9 % (0-4); Hematocrit 31.6 % (37.0-47.0); Imm Gran Abs Auto 0.04 X10*3/uL (0.00-0.03); Imm Gran Pct Auto 0.4 % (0.0-0.4); Lymphocytes Absolute Auto 1.6 X10*3/uL (1.2-4.9); Mean Corpuscular HGB Conc 34.8 g/dl (31.0-35.0); Mean Corpuscular Hemoglobin 33.5 pg (27.0-33.0); Mean Corpuscular Volume 96.3 fL (80.0-98.0); Mean Platelet Volume 11.4 fL (9.4-12.3); Monocytes Absolute Auto 0.5 X10*3/uL (0.1-1.2); Monocytes Percent Auto 5.7 % (2-11); Neutrophils Absolute Auto 6.7 x10*3/uL (2.0-8.3); Neutrophils Percent Auto 71.8 % (45-73); Platelet Count 239 X10*3/uL (160-400); Red Blood Count 3.28 X10*6/uL (4.20-5.50); Red Cell Distribution Width 13.5 % (11.0-16.0); White Blood Count 9.4 X10*3/uL (4.8-10.8)
[2023-02-16 16:05] LABS: Erythrocyte Sedimentation Rate 5 MM/HR (0-20)
[2023-02-16 16:54] LABS: Alanine Aminotransferase 23 U/L (0-31); Anion Gap 13 (12-20); Aspartate Amino Transferase 21 U/L (5-31); Blood Urea Nitrogen 24 mg/dL (9-16); C Reactive Protein 0.18 mg/dL (< or = 0.50); Calcium 9.3 mg/dL (8.4-10.2); Carbon Dioxide 27 mmol/L (22-29); Chloride 108 mmol/L (96-108); Estimated Glomerular Filt Rate 39; Glucose Random 136 mg/dL (60-115); Potassium 4.1 mmol/L (3.3-5.1); Sodium 144 mmol/L (135-145)
[2023-02-22 15:47] LABS: Vitamin D 25-OH, D2 4 ng/mL; Vitamin D 25-OH, D3 12 ng/mL; Vitamin D 25-OH, Total 16 ng/mL (30-100)
== END 2023-02-16 15:10 | disposition home or self-care (01) ==
LOC: HO.LAB 15:09
PROVIDERS: PCP Internal Medicine; Visit Provider Internal Medicine Rheumatology
DX: M06.9 Rheumatoid arthritis, unspecified (principal); Z79.899 Other long term (current) drug therapy; M85.80 Other specified disorders of bone density and structure, unspecified site
CPT/HCPCS: 36415; 80048; 82306; 84450; 84460; 85025; 85652; 86140

== ENCOUNTER 2023-03-05 10:28 | Outpatient (AMB) | payer MEDICARE, SELFPAY ==
--- NOTE | 2023-03-05 10:31 | MHC.OFFVIS ---
Intake Vital Signs 03/05/23 10:32 Height 4 ft 10 in Weight 159 lb BMI 33.2 BP 110/54 L Blood Pressure Location Lt brachial Position Sitting Pulse 76 Pulse Source Pulse Oximeter Pulse Oximetry (%) 99 Oxygen Delivery Method Room Air Intake Visit Reasons: Asthma Intake Note: pt is here for follow up and states she i is a little off today with her breathing. But mostly she is okay. Just FYI, she is starting an infusion for her bones, for dx of osteopenia. Sterile Processing Tech Required: No Allergies duloxetine Allergy (Severe, Verified 03/05/23 10:56) LOOPY codeine [CODEINE] Allergy (Intermediate, Verified 03/05/23 10:56) GI UPSET doxycycline [DOXYCYCLINE] Allergy (Intermediate, Verified 03/05/23 10:56) RASH Sulfa (Sulfonamide Antibiotics) [SULFA (SULFONAMIDE ANTIBIOTICS)] Allergy (Intermediate, Verified 03/05/23 10:56) Hives Medication List - Last Reconciled 03/05/23 by Greg Iyer MD albuterol sulfate 90 mcg/actuation (ProAir HFA) 2 puffs inhalation Q4-6H PRN 30 days aspirin 81 mg PO DAILY atorvastatin 20 mg PO DAILY betamethasone valerate 0.1% 1 appl topical BID PRN blood sugar diagnostic (OneTouch Ultra Test strips) As directed 3x daily cholecalciferol (vitamin D3) 4,000 units PO DAILY famotidine 40 mg PO BID ferrous sulfate 325 mg PO DAILY fluticasone propionate 50 mcg/actuation 2 sprays intranasal DAILY folic acid 1 mg PO DAILY furosemide 20 mg PO DAILY gabapentin 600 mg PO TID hydroxychloroquine 200 mg PO BID insulin glargine (Lantus Solostar U-100 Insulin) 70 units subcut BEDTIME insulin lispro (Humalog Kervin KwikPen (U-100)) 1 sliding scale dose subcut USEASDIRECTD insulin syringe-needle U-100 As directed ketoconazole 2% 1 appl topical BID lamotrigine 50 mg PO BID lidocaine 5% 1 patch topical DAILY lisinopril-hydrochlorothiazide 10-12.5 mg 1 tab PO DAILY 90 days methotrexate sodium 15 mg (6 x 2.5 mg) PO QWEEK metronidazole 1% 1 appl topical DAILY pen needle, diabetic (BD [place] 2nd Gen Pen Needle) As directed sucralfate 2 grams PO DAILY sumatriptan succinate 50 mg PO walker As directed [facility] Medical History Pacemaker TIA (transient ischemic attack) Rheumatoid arthritis Dysphagia Spinal stenosis COVID COVID-19 Laryngopharyngeal reflux (LPR) Asthma Rotator cuff tendinitis Post-menopausal Polyarthralgia Dyspnea on exertion Allergic rhinitis Bronchitis Asthma exacerbation Cough variant asthma DJD (degenerative joint disease) Decreased hearing GERD (gastroesophageal reflux disease) Type 2 diabetes 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s Surgical History S/P placement of cardiac pacemaker History of esophagogastroduodenoscopy (EGD) History of colonoscopy Hx of cholecystectomy Hx of tonsillectomy Hx of hysterectomy Family History Father CVD (cardiovascular disease) Diabetes Mother Diabetes Sister No problems noted. Other Substance use disorder Social History Household Members: Family and None Housing: House Are you a primary animal caretaker supervisor to a significant other at home: No Do you presently have visiting nurse or other home services: No Alcohol intake: former Patient Tobacco Use Status: Never used Tobacco e-Cigarette/Vaping Use: Never Used Second Hand Smoke Exposure: No Advance Directives Date on File: 08/04/22 service: No Current occupational status: retired Cognitive needs: Yes (walker) Hearing needs: Yes (hearing aide) Vision needs: Yes (glasses) Review of Systems Const All systems reviewed & are unremarkable except as noted in HPI and below Eyes Reports no additional complaints ENT Reports nasal congestion (Intermittent) Card Denies chest pain, Denies irregular heart rhythm and Denies leg edema Resp Reports as per HPI GI Reports no additional complaints Reports no additional complaints Musc Reports back pain and Reports arthralgias Skin/Breast Reports system reviewed and no additional complaints, except as documented Neuro Reports no additional complaints Psych Reports no additional complaints Endo Reports no additional complaints Umer/Lymph Reports no additional complaints Physical Exam Vital Signs: Last Vital Signs Pulse 76 03/05/23 10:32 BP 110/54 L 03/05/23 10:32 Pulse Ox 99 03/05/23 10:32 Oxygen Delivery Method Room Air 03/05/23 10:32 BMI result Body Mass Index 33.2 Const General: comfortable, no acute distress, alert and awake Orientation/consciousness: patient oriented x3 HEENT Head: Yes normal to inspection General nose exam: No nasal polyps present and No nasal discharge present Face and sinus: Yes sinuses nontender Mouth: oropharynx normal Throat: Yes posterior oropharynx normal Eyes General: appearance normal, both eyes and all related structures Neck Neck: Yes normal visual inspection, Yes no lymphadenopathy, Yes trachea midline and Yes no JVD Thyroid: Thyroid normal Chest Chest palpation & inspection: normal inspection of the chest (Pacemaker battery in the left pectoral region), normal palpation of entire chest wall and no tenderness Resp Other: Percussion note is resonant, breath sounds are equal on both sides, slightly diminished over the basilar areas. No audible wheezes rhonchi or crepitations. Cardio Palpation: normal PMI Rate: regular rate Rhythm: regular rhythm Heart sounds: no gallops and no murmurs GI Palpation (GI): Soft to palpation, nontender, No hepatosplenomegaly present and no masses Auscultation: normal bowel sounds Back/Spine/Pelvis Thoracic/Lumbar Spine: thoracic and lumbar spine normal to inspection and thoraco-lumbar ROM limited Skin General skin exam: no rashes or lesions noted Neuro General: patient oriented x3 and no focal motor deficits Cranial nerves: Yes CN's II-XII intact bilaterally Extrem General: Yes normal to inspection, Yes no clubbing, cyanosis or edema and Yes no calf tenderness Psych Appearance: grossly normal and well kempt Speech and movement: Normal speech and movement present Office Procedures Spirometry Testing Spirometry Comments: Spirometry done in the office, Dr. Iyer has the results results scanned to her chart. 13659- Spirometry Results Reviewed Results Reviewed: SPIROMETRY FVC 175%. FEV1 120%. FEV1 OVER FVC RATIO IS 54 FEF 25-75 = 38%. Assessment & Plan Assessment & Plan (1) Asthma: Comment: MILD, INTERMITTENT. TX USE PROAIR 2 PUFFS Q 4-6 HOURS P.R.N. NO NEED OF USING ANY LONG-ACTING BRONCHODILATORS OR ICS . Code(s): J45.909 - Unspecified asthma, uncomplicated (2) Dyspnea on exertion: Comment: SHE HAS LONG-STANDING HISTORY OF DYSPNEA ON EXERTION WHICH IS STABLE AND MILD, PROBABLY MULTIFACTORIAL. PATIENT ADVISED TO KEEP ON DOING DEEP BREATHING EXERCISES 2 OR 3 TIMES A DAY ON REGULAR BASIS. Code(s): R06.00 - Dyspnea, unspecified (3) Allergic rhinitis: Comment: Mild chronic, controlled. TX: Flonase 2 spray each nostril daily Cetrazine 10 mg PO PRN Code(s): J30.9 - Allergic rhinitis, unspecified Coding Level of Care Code Est Pt Level 3 (05555) Diagnoses Asthma J45.909 Dyspnea on exertion R06.00 Allergic rhinitis J30.9 CPT Codes Spirometry - CPT: 31592- Spirometry ([id number])
[2023-03-05 10:32] VITALS: BP 110/54; PULSE 76; O2SAT 99; BMI 33.2
== END 2023-03-05 11:13 | disposition home or self-care (01) ==
PROVIDERS: PCP Internal Medicine; Visit Provider Internal Medicine
DX: J45.909 Unspecified asthma, uncomplicated (principal); R06.00 Dyspnea, unspecified; J30.9 Allergic rhinitis, unspecified
CPT/HCPCS: 94010; 99213

== ENCOUNTER 2023-03-05 10:28 | Outpatient (REF) | payer MEDICARE, SELFPAY ==
[2023-03-05 13:40] LABS: Hematocrit 34.5 % (37.0-47.0); Hemoglobin 11.8 g/dl (12.0-16.0); Mean Corpuscular HGB Conc 34.2 g/dl (31.0-35.0); Mean Corpuscular Hemoglobin 33.5 pg (27.0-33.0); Mean Platelet Volume 11.4 fL (9.4-12.3); Platelet Count 220 X10*3/uL (160-400); Red Blood Count 3.52 X10*6/uL (4.20-5.50); Red Cell Distribution Width 13.7 % (11.0-16.0); White Blood Count 10.3 X10*3/uL (4.8-10.8)
[2023-03-05 14:37] LABS: Alanine Aminotransferase 20 U/L (0-31); Albumin Level 4.5 g/dL (3.5-5.0); Alkaline Phosphatase 71 U/L (39-117); Anion Gap 15 (12-20); Aspartate Amino Transferase 20 U/L (5-31); Bilirubin Direct 0.2 mg/dL (0.0-0.5); Bilirubin Total 0.5 mg/dL (0.0-1.0); Blood Urea Nitrogen 27 mg/dL (9-16); Calcium 10.1 mg/dL (8.4-10.2); Carbon Dioxide 27 mmol/L (22-29); Chloride 107 mmol/L (96-108); Cholesterol 103 mg/dL (<200); Estimated Glomerular Filt Rate 43; Glucose Random 97 mg/dL (60-115); HDL Cholesterol 38 mg/dL (>40); LDL Cholesterol Calculated 20 mg/dL (<100); Potassium 3.7 mmol/L (3.3-5.1); Sodium 145 mmol/L (135-145); Triglycerides 226 mg/dL (<150)
== END 2023-03-05 10:29 | disposition home or self-care (01) ==
LOC: HO.LAB 10:28
PROVIDERS: PCP Internal Medicine; Visit Provider Internal Medicine Rheumatology
DX: J45.909 Unspecified asthma, uncomplicated (principal); R06.00 Dyspnea, unspecified; E11.9 Type 2 diabetes 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s; M85.80 Other specified disorders of bone density and structure, unspecified site; Z79.4 Long term (current) use of insulin
CPT/HCPCS: 36415; 80048; 80061; 80076; 85027; 94010; 99212

== ENCOUNTER 2023-03-08 10:57 | Outpatient (REF) | payer MEDICARE, SELFPAY | END 2023-03-08 10:58 | disposition home or self-care (01) | LOC: HO.MDS 10:57 | PROVIDERS: Visit Provider Student in an Organized Health Care Education/Training Program | DX: M81.0 Age-related osteoporosis without current pathological fracture (principal) | CPT/HCPCS: 96365; J3489 ==

== ENCOUNTER 2023-03-21 08:51 | Outpatient (AMB) | payer MEDICARE, SELFPAY ==
[2023-03-21 08:59] VITALS: BP 112/55; PULSE 81; BMI 32.9
--- NOTE | 2023-03-21 08:59 | A.OFFVIS_ITS ---
Intake Vital Signs 03/21/23 08:59 Height 4 ft 10 in Weight 157 lb 6.561 oz BMI 32.9 BP 112/55 L Blood Pressure Location Lt brachial Position Sitting Pulse 81 Intake Visit Reasons: 6 month follow up Intake Note: Kriss presents in the office as a 6 month follow up of GERD. CC: Patient reports occasional diarrhea, occasional nausea, and dry heaves. Patient reports she only eats one meal a day. and having occasional pain. Patient states she takes an infusion once a year for her bones. Turn Down Attendant Required: No Accompanied by: Self / Same As Patient Allergies duloxetine Allergy (Severe, Verified 03/21/23 09:05) LOOPY codeine [CODEINE] Allergy (Intermediate, Verified 03/21/23 09:05) GI UPSET doxycycline [DOXYCYCLINE] Allergy (Intermediate, Verified 03/21/23 09:05) RASH Sulfa (Sulfonamide Antibiotics) [SULFA (SULFONAMIDE ANTIBIOTICS)] Allergy (Intermediate, Verified 03/21/23 09:05) Hives Medication List - Last Reconciled 03/21/23 by AUDREY Dubois albuterol sulfate 90 mcg/actuation (ProAir HFA) 2 puffs inhalation Q4-6H PRN 30 days alosetron (Lotronex) 0.5 mg PO BID aspirin 81 mg PO DAILY atorvastatin 20 mg PO DAILY betamethasone valerate 0.1% 1 appl topical BID PRN blood sugar diagnostic (OneTouch Ultra Test strips) As directed 3x daily cholecalciferol (vitamin D3) (Vitamin D3) 4,000 units PO DAILY famotidine 40 mg PO BID ferrous sulfate 325 mg PO DAILY fluticasone propionate 50 mcg/actuation 2 sprays intranasal DAILY folic acid 1 mg PO DAILY furosemide 20 mg PO DAILY gabapentin 600 mg PO TID hydroxychloroquine 200 mg PO BID insulin glargine (Lantus Solostar U-100 Insulin) 70 units subcut BEDTIME insulin lispro (Humalog Kervin KwikPen (U-100)) 1 sliding scale dose subcut USE ASDIRECTD insulin syringe-needle U-100 As directed ketoconazole 2% 1 appl topical BID lamotrigine 50 mg PO BID lidocaine 5% 1 patch topical DAILY lisinopril-hydrochlorothiazide 10-12.5 mg 1 tab PO DAILY 90 days methotrexate sodium 15 mg (6 x 2.5 mg) PO QWEEK metronidazole 1% 1 appl topical DAILY pen needle, diabetic (BD [place] 2nd Gen Pen Needle) As directed sucralfate 2 grams (2 x 1 gram) PO DAILY sumatriptan succinate 50 mg PO DAILY walker As directed zoledronic [id number] 5 mg/100 mL (Reclast) ea IV HPI 6 month follow up HPI Details Assessment & Plan (1) Irritable bowel syndrome with diarrh ea: Code(s): K58.0 - Irritable bowel syndrome with diarrhea Plan: She is doing fairly well with the carafate, but has to cut thke tablets and at times they stick in her throat. I remind her that it is ok to crush and put in applesauce of pudding etc. However, it does control the diarrhea, 95% of the time. HER GERD is well controlled. She is on famotidine. She is having ore energy since having her pacemaker inserted in jul. ROV 6 mos. (2) GERD (gastroesophageal reflux diseas e): Code(s): K21.9 - Gastro-esophageal reflux disease without esophagitis Qualifiers: Esophagitis presence: without esophagitis Qualified Code(s): K21.9 - Gastro-esophageal reflux disease without esophagitis (3) Erosive esophagitis: Code(s): K22.10 - Ulcer of esophagus without bleeding Medications: Refilled sucralfate 3 grams (3 x 1 gra m) PO DAILY 270 ta bs 3RF K91.5 - Postcholec ystectomy syndrome famotidine 40 mg PO BID 180 tabs 1RF K21.9 - Gastro-eso phageal reflux dis ease without esoph agitis, K22.10 - U lcer of esophagus without bleeding TODAY'S VISIT She is taking 2 carafate in the am with applesauce but still will have diarrhea and fecal incontinence. She also still uses imodium. This is very life limiting for her. She has failed carafate, cholestyramine, fiber and imodium w/o sufficient response. I will progress her to Lotronex (her insurance prefers Viberzi but she is s/p sha). She also have female urinary incontinence. She had a bad experience sharing this information with a past urologist so when she was 40 years also has not mentioned it again. I will see if I can get her started on trial of Ditropan 10 mg ER and if her insurance does not cover a well we can always use good Rx. She continues on famotidine with good control of her GERD. Return office visit in 4 weeks to evaluate her response. [facility] Medical History Pacemaker TIA (transient ischemic attack) Rheumatoid arthritis Dysphagia Spinal stenosis COVID COVID-19 Laryngopharyngeal reflux (LPR) Asthma Rotator cuff tendinitis Post-menopausal Polyarthralgia Dyspnea on exertion Allergic rhinitis Bronchitis Asthma exacerbation Cough variant asthma DJD (degenerative joint disease) Decreased hearing GERD (gastroesophageal reflux disease) Type 2 diabetes 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s Surgical History S/P placement of cardiac pacemaker History of esophagogastroduodenoscopy (EGD) History of colonoscopy Hx of cholecystectomy Hx of tonsillectomy Hx of hysterectomy Family History Father CVD (cardiovascular disease) Diabetes Mother Diabetes Sister No problems noted. Other Substance use disorder Social History Household Members: Family and None Housing: House Are you a primary child care centre director to a significant other at home: No Do you presently have visiting nurse or other home services: No Alcohol intake: former Patient Tobacco Use Status: Never used Tobacco e-Cigarette/Vaping Use: Never Used Second Hand Smoke Exposure: No Advance Directives Date on File: 08/04/22 service: No Current occupational status: retired Cognitive needs: Yes (walker) Hearing needs: Yes (hearing aide) Vision needs: Yes (glasses) Review of Systems Const Denies fatigue, Denies fever(s), Denies night sweats, Denies poor appetite and Denies weight loss Eyes Details: glasses ENT Reports Normal hearing present, Denies dental pain, Denies dysphagia, Denies hearing loss, Denies mouth pain, Denies odynophagia, Denies throat swelling, Denies tongue swelling and Reports other (Dentition adequate) Card Reports no additional complaints Resp Reports no additional complaints GI Denies abdominal pain, Denies melena, Denies bloating, Denies hematochezia, Denies constipation, Denies GI cramping, Denies dysphagia, Denies excessive flatus, Denies early satiety, Reports heartburn, Reports diarrhea, Denies nausea, Denies odynophagia, Denies vomiting and Denies hematemesis Reports urinary incontinence Skin/Breast Denies pruritus, Denies lesions, Denies rash and Denies jaundice Neuro Reports Normal hearing present and Denies Abnormal speech present Endo Denies fatigue Aller/Immun Denies throat swelling and Denies tongue swelling Physical Exam Vital Signs: Last Vital Signs Pulse 81 03/21/23 08:59 BP 112/55 L 03/21/23 08:59 BMI result Body Mass Index 32.9 Const General: cooperative, no acute distress, well developed and well groomed Nutritional Appearance: well nourished and obese Orientation/consciousness: oriented to person, oriented to place and oriented to time Limitations: No language barrier and ambulation with walker HEENT Head: Yes normocephalic and Yes atraumatic Eyes General: appearance normal, both eyes and all related structures Pupils: Equal, round and reactive pupils present Neck Neck: Yes normal visual inspection and Yes no lymphadenopathy Thyroid: Thyroid normal Resp Effort & Inspection: normal respiratory effort and able to speak in complete sentences Auscultation: clear to auscultation bilaterally Cardio Rate: regular rate Rhythm: regular rhythm Heart sounds: Normal, physiologic split S2 sound present Peripheral pulses: radial pulses present and posterior tibial pulses present GI Inspection: No distended, Yes Abdominal panniculus present and Yes obesity Palpation (GI): Soft to palpation, nontender, no guarding, not rigid and No hepatosplenomegaly present Percussion: Yes normal to percussion Auscultation: normal bowel sounds Rectal Exam - Female: deferred Skin General skin exam: no rashes or lesions noted, turgor normal, skin not dry, no jaundice, No spider nevi and no striae Rashes: no rashes Nails: normal Neuro General: oriented to person, oriented to place and oriented to time Cranial nerves: Yes Equal, round and reactive pupils present and Yes Normal hearing present Speech: No Abnormal speech present Extrem General: Yes normal to inspection, No clubbing, No cyanosis and No edema Psych Appearance: grossly normal and well kempt Mental Status: mental status grossly normal Speech and movement: Normal speech and movement present Affect: normal affect Attitude: cooperative Thought process: Normal thought process present and not confabulating Thought content: Normal thought content present Insight: Limited insight present (Psych) Judgement: Limited judgement present (Psych) Assessment & Plan Assessment & Plan (1) Irritable bowel syndrome with diarrhea: Code(s): K58.0 - Irritable bowel syndrome with diarrhea Plan: She is taking 2 carafate in the am with applesauce but still will have diarrhea and fecal incontinence. She also still uses imodium. This is very life limiting for her. She has failed carafate, cholestyramine, fiber and imodium w/o sufficient response. I will progress her to Lotronex (her insurance prefers Viberzi but she is s/p sha). She also have female urinary incontinence. She had a bad experience sharing this information with a past urologist so when she was 40 years also has not mentioned it again. I will see if I can get her started on trial of Ditropan 10 mg ER and if her insurance does not cover a well we can always use good Rx. She continues on famotidine with good control of her GERD. Return office visit in 4 weeks to evaluate her response. (2) Overactive bladder: Code(s): N32.81 - Overactive bladder (3) Erosive esophagitis: Code(s): K22.10 - Ulcer of esophagus without bleeding (4) GERD (gastroesophageal reflux disease): Code(s): K21.9 - Gastro-esophageal reflux disease without esophagitis Qualifiers: Esophagitis presence: without esophagitis Qualified Code(s): K21.9 - Gastro-esophageal reflux disease without esophagitis (5) Post-cholecystectomy syndrome: Code(s): K91.5 - Postcholecystectomy syndrome Medications: New alosetron (Lotronex) 0.5 mg PO BID 60 tabs 3RF K91.5 - Postcholecystectomy syndrome sucralfate 2 grams (2 x 1 gram) PO DAILY 20 tabs 0RF K91.5 - Postcholecystectomy syndrome oxybutynin chloride ER 10 mg PO DAILY 30 tabs 6RF N32.81 - Overactive bladder Refilled famotidine 40 mg PO BID 180 tabs 1RF K21.9 - Gastro-esophageal reflux disease without esophagitis, K22.10 - Ulcer of esophagus without bleeding Coding Level of Care Code Est Pt Level 4 (21344) Diagnoses Irritable bowel syndrome with diarrhea K58.0 Overactive bladder N32.81 Erosive esophagitis K22.10 Gastroesophageal reflux disease without esophagitis K21.9 Esophagitis presence: without esophagitis Post-cholecystectomy syndrome K91.5
== END 2023-03-21 09:37 | disposition home or self-care (01) ==
PROVIDERS: Visit Provider Nurse Practitioner
DX: K58.0 Irritable bowel syndrome with diarrhea (principal); N32.81 Overactive bladder; K22.10 Ulcer of esophagus without bleeding; K21.9 Gastro-esophageal reflux disease without esophagitis; K91.5 Postcholecystectomy syndrome
CPT/HCPCS: 99214

== ENCOUNTER → 2023-03-21 08:51 | Outpatient (BNVA) | payer MEDICARE, SELFPAY | PROVIDERS: Visit Provider Nurse Practitioner | DX: K58.0 Irritable bowel syndrome with diarrhea (principal); K22.10 Ulcer of esophagus without bleeding; K21.9 Gastro-esophageal reflux disease without esophagitis; K91.5 Postcholecystectomy syndrome; N32.81 Overactive bladder | CPT/HCPCS: 99212 ==

== ENCOUNTER 2023-04-12 10:50 | Outpatient (AMB) | payer MEDICARE, SELFPAY ==
--- NOTE | 2023-04-12 11:03 | MHC.PC.OV ---
Vital Signs 04/12/23 11:04 Height 4 ft 10 in Weight 157 lb 4 oz BMI 32.9 BP 124/76 Blood Pressure Location Lt brachial Position Sitting Pulse 69 Pulse Source Pulse Oximeter Pulse Oximetry (%) 98 Oxygen Delivery Method Room Air Intake Visit Reasons: 3 month f/u Intake Note: Patient is here to follow up on DM, Asthma, DJD, GERD. Requesting refill on medications Green Marketing Specialist Required: No Ink Printer: Not Required per policy Accompanied by: Self / Same As Patient Allergies duloxetine Allergy (Severe, Verified 04/12/23 11:03) LOOPY codeine [CODEINE] Allergy (Intermediate, Verified 04/12/23 11:03) GI UPSET doxycycline [DOXYCYCLINE] Allergy (Intermediate, Verified 04/12/23 11:03) RASH Sulfa (Sulfonamide Antibiotics) [SULFA (SULFONAMIDE ANTIBIOTICS)] Allergy (Intermediate, Verified 04/12/23 11:03) Hives Tobacco use date assessed: 04/12/23 Fall risk assessment: 1 Fall in past year Last assessed Fall Risk: 04/12/23 Dental Screening Dental Screen Date: 04/12/23 Did you have a dental visit in the last 12 months?: Yes Did you have a dental problem in the last 6 months where you did not have access to dental care?: No Was dental information given to patient?: Patient has dentist HPI HPI Comments History of Present Illness Details 72-year-old female presents to the office to discuss her chronic medical conditions. Patient has completed all her immunizations including flu, RSV and COVID booster for the year. She would like to have all her medications reviewed. Patient is requesting a refill on for of her medications. Able to function and do all activities of daily living. [facility] Medical History (Updated 04/12/23 @ 15:35 by Angel Pablo MD) Pacemaker TIA (transient ischemic attack) Rheumatoid arthritis Dysphagia Spinal stenosis COVID COVID-19 Laryngopharyngeal reflux (LPR) Asthma Rotator cuff tendinitis Post-menopausal Polyarthralgia Dyspnea on exertion Allergic rhinitis Bronchitis Asthma exacerbation Cough variant asthma DJD (degenerative joint disease) Decreased hearing GERD (gastroesophageal reflux disease) Type 2 diabetes 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s Surgical History S/P placement of cardiac pacemaker History of esophagogastroduodenoscopy (EGD) History of colonoscopy Hx of cholecystectomy Hx of tonsillectomy Hx of hysterectomy Family History Father CVD (cardiovascular disease) Diabetes Mother Diabetes Sister No problems noted. Other Substance use disorder Social History Household Members: Family and None Housing: House Are you a primary care director to a significant other at home: No Do you presently have visiting nurse or other home services: No Alcohol intake: former Patient Tobacco Use Status: Never used Tobacco e-Cigarette/Vaping Use: Never Used Second Hand Smoke Exposure: No Advance Directives Date on File: 08/04/22 service: No Current occupational status: retired Cognitive needs: Yes (walker) Hearing needs: Yes (hearing aide) Vision needs: Yes (glasses) Questionnaire Thrive Questionnaire Date Thrive assessed: 08/15/22 BRITTNEY-7 AMB Questionnaire BRITTNEY-7 Date BRITTNEY - 7 assessed: 08/15/22 Source: Developed by Drs. Jonathan Sandoval, Dodie Tejada, Alberto Elizondo and colleagues, with an educational mark from [employer]. Physical exam (Primary Care) Vital Signs: Last Vital Signs Pulse 69 04/12/23 11:04 BP 124/76 04/12/23 11:04 Pulse Ox 98 04/12/23 11:04 Oxygen Delivery Method Room Air 04/12/23 11:04 BMI result Body Mass Index 32.9 Tobacco/Smoking Status: Tobacco use Status Tobacco use date assessed 04/12/23 04/12/23 11:16 Patient Tobacco Use Status Never used Tobacco 04/12/23 11:16 e-Cigarette/Vaping Use Never Used 04/12/23 11:16 Thrive Assessment: Date of Thrive Assessment Date Thrive assessed 08/15/22 04/12/23 11:16 Const General: cooperative and healthy appearing Nutritional Appearance: well nourished Orientation/consciousness: patient oriented x3 Limitations: no limitations HENMT Head: Yes normal to inspection Eyes General: appearance normal, both eyes and all related structures Neck Neck: Yes normal visual inspection Chest Chest palpation & inspection: normal palpation of entire chest wall Resp Effort & Inspection: normal respiratory effort Neuro General: patient oriented x3 Results AMB Hemoglobin A1c AMB Hemoglobin A1c 5.0 % Last Edit by GIANA Dailey on 04/12/23 11:20 Results Reviewed Results Reviewed: Laboratory Last Values Hgb A1c (Clinic) 5.0 % (4.0-6.0) 04/12/23 11:02 Assessment and Plan Assessment & Plan (1) Overactive bladder: Code(s): N32.81 - Overactive bladder Plan: Patient is on oxybutynin. She is getting excellent response to it. Continue current medications. (2) Osteoarthritis of hands, bilateral: Code(s): M19.041 - Primary osteoarthritis, right hand; M19.042 - Primary osteoarthritis, left hand Plan: Patient has been diagnosed with rheumatoid arthritis in addition to osteoarthritis. Continue current management. (3) Hypercholesterolemia: Code(s): E78.00 - Pure hypercholesterolemia, unspecified Plan: Blood work is in range. Continue statins at same dosage. (4) Rheumatoid arthritis: Code(s): M06.9 - Rheumatoid arthritis, unspecified Plan: Patient is on hydroxychloroquine and folic acid and mood methotrexate. Continue current medications. Orders: Orders AMB Hemoglobin A1c Today E11.9 - Type 2 diabetes 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s Medications: Refilled furosemide 20 mg PO DAILY 30 tabs 0RF lidocaine 5% 1 patch topical DAILY 30 patches 0RF metronidazole 1% 1 appl topical DAILY 55 grams 0RF Coding Level of Care Code Est Pt Level 4 (92853) Diagnoses Overactive bladder N32.81 Osteoarthritis of hands, bilateral M19.041; M19.042 Hypercholesterolemia E78.00 Rheumatoid arthritis M06.9
[2023-04-12 11:04] VITALS: BP 124/76; PULSE 69; O2SAT 98; BMI 32.9
== END 2023-04-12 11:40 | disposition home or self-care (01) ==
PROVIDERS: PCP Internal Medicine; Visit Provider Internal Medicine
DX: M06.9 Rheumatoid arthritis, unspecified (principal); E11.9 Type 2 diabetes 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s; N32.81 Overactive bladder; M19.041 Primary osteoarthritis, right hand; M19.042 Primary osteoarthritis, left hand; E78.00 Pure hypercholesterolemia, unspecified
CPT/HCPCS: 83036; 99214

== ENCOUNTER 2023-04-18 15:27 | Outpatient (AMB) | payer MEDICARE, SELFPAY ==
--- NOTE | 2023-04-18 15:34 | A.OFFVIS_ITS ---
Intake Vital Signs 04/18/23 15:38 Height 4 ft 10 in Weight 157 lb BMI 32.8 BP 120/48 L Blood Pressure Location Rt brachial Position Sitting Pulse 71 Intake Visit Reasons: 4 week follow up Intake Note: Kriss presents in the office as a 6 month follow up of GERD. CC: Patient reports occasional diarrhea, occasional nausea, and dry heaves. Patient reports she only eats one meal a day. and having occasional pain. Patient states she takes an infusion once a year for her bones. 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 Accompanied by: Self / Same As Patient Allergies duloxetine Allergy (Severe, Verified 04/30/23 09:02) LOOPY codeine [CODEINE] Allergy (Intermediate, Verified 04/30/23 09:02) GI UPSET doxycycline [DOXYCYCLINE] Allergy (Intermediate, Verified 04/30/23 09:02) RASH Sulfa (Sulfonamide Antibiotics) [SULFA (SULFONAMIDE ANTIBIOTICS)] Allergy (Intermediate, Verified 04/30/23 09:02) Hives HPI 4 week follow up HPI Details Assessment & Plan (1) Irritable bowel syndrome with diarrh ea: Code(s): K58.0 - Irritable bowel syndrome with diarrhea Plan: She is taking 2 carafate in the am with applesauce but still will have diarrhea and fecal incontinence. She also still uses imodium. This is very life limiting for her. She has failed carafate, cholestyramine, fiber and imodium w/o sufficient response. I will progress her to Lotronex (her insurance prefers Viberzi but she is s/p sha). She also have female urinary incontinence. She had a bad experience sharing this information with a past urologist so when she was 40 years also has not mentioned it again. I will see if I can get her started on trial of Ditropan 10 mg ER and if her insurance does not cover a well we can always use good Rx. She continues on famotidine with good control of her GERD. Return office visit in 4 weeks to evaluate her response. (2) Overactive bladder: Code(s): N32.81 - Overactive bladder (3) Erosive esophagitis: Code(s): K22.10 - Ulcer of esophagus without bleeding (4) GERD (gastroesophageal reflux diseas e): Code(s): K21.9 - Gastro-esophageal reflux disease without esophagitis Qualifiers: Esophagitis presence: without esophagitis Qualified Code(s): K21.9 - Gastro-esophageal reflux disease without esophagitis (5) Post-cholecystectomy syndrome: Code(s): K91.5 - Postcholecystectomy syndrome Medications: New alosetron (Lotrone x) 0.5 mg PO BID 60 tabs 3RF K91.5 - Postcholec ystectomy syndrome sucralfate 2 grams (2 x 1 gra m) PO DAILY 20 tab s 0RF K91.5 - Postcholec ystectomy syndrome oxybutynin chlorid e ER 10 mg PO DAILY 30 tabs 6RF N32.81 - Overactiv e bladder Refilled famotidine 40 mg PO BID 180 tabs 1RF K21.9 - Gastro-eso phageal reflux dis ease without esoph agitis, K22.10 - U lcer of esophagus without bleeding CORRESPONDENCE On 04/10/23 @ 11:24 Tracey Goodwin Wrote To Christa (2) I am sending loperamide and I want to take 2 mg twice a day to start and if this does not control her diarrhea I want to take 2 mg 3 times a day. The only time I wanted to stop taking this is if she develops constipation. Medication Orders loperamide 2 mg PO TID 180 ca ps 6RF New On 04/10/23 @ 10:57 Wolfgang Peterson Wrote To ChristaSeptember PA was approved but pharmacy notified that the medication copay is $321.00. Please advise. On 04/10/23 @ 10:52 Tracey Goodwin Wrote To Wolfgang Peterson Please look in to this and see if this is an insurance coverage problem. I think her formulary prefers Viberzi, but this is contraindicated because she is s/p cholecystectomy. On 04/09/23 @ 15:55 Rachael Moore Wrote To ChristaSeptember Meds are to expensive she needs a different medication. She said please feel free to call her if you like. Thank you TODAY'S VISIT Diarrhea is controlled on 1 loperimide a day - but she is advised she can take more. Now having appetite problems, no taste since COVID 2 years ago, but also dysphagia is back. Seeing ENT and they have ordered (another) barium swallow. She had a mod in 09/2021. BUT had some improvement with past EGD and dilation so will order another. She continues on famotidine for her GERD. She is complaining of early satiety, she is IDDM so will get GES. ROV 3 mos. REPLACED BY [facility] Medical History Pacemaker TIA (transient ischemic attack) Rheumatoid arthritis Dysphagia Spinal stenosis COVID COVID-19 Laryngopharyngeal reflux (LPR) Asthma Rotator cuff tendinitis Post-menopausal Polyarthralgia Dyspnea on exertion Allergic rhinitis Bronchitis Asthma exacerbation Cough variant asthma DJD (degenerative joint disease) Decreased hearing GERD (gastroesophageal reflux disease) Type 2 diabetes 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s Surgical History S/P placement of cardiac pacemaker History of esophagogastroduodenoscopy (EGD) History of colonoscopy Hx of cholecystectomy Hx of tonsillectomy Hx of hysterectomy Family History Father CVD (cardiovascular disease) Diabetes Mother Diabetes Sister No problems noted. Other Substance use disorder Social History Household Members: Family and None Housing: House Are you a primary day care provider to a significant other at home: No Do you presently have visiting nurse or other home services: No Alcohol intake: former Patient Tobacco Use Status: Never used Tobacco e-Cigarette/Vaping Use: Never Used Second Hand Smoke Exposure: No Advance Directives Date on File: 08/04/22 service: No Current occupational status: retired Cognitive needs: Yes (walker) Hearing needs: Yes (hearing aide) Vision needs: Yes (glasses) Review of Systems Const Denies fatigue, Denies fever(s), Denies night sweats, Reports poor appetite and Denies weight loss ENT Reports Normal hearing present, Denies dental pain, Denies dysphagia, Denies hearing loss, Denies mouth pain, Denies odynophagia, Denies throat swelling, Denies tongue swelling and Reports other (Dentition adequate) Card Reports no additional complaints Resp Reports no additional complaints GI Denies abdominal pain, Denies melena, Denies bloating, Denies hematochezia, Denies constipation, Denies GI cramping, Denies dysphagia, Denies excessive flatus, Reports early satiety, Reports heartburn, Reports diarrhea, Denies nausea, Denies odynophagia, Denies vomiting and Denies hematemesis Skin/Breast Denies pruritus, Denies lesions, Denies rash and Denies jaundice Neuro Reports Normal hearing present and Denies Abnormal speech present Endo Denies fatigue Aller/Immun Denies throat swelling and Denies tongue swelling Physical Exam Vital Signs: Last Vital Signs Pulse 71 04/18/23 15:38 BP 120/48 L 04/18/23 15:38 BMI result Body Mass Index 32.8 Const General: cooperative, no acute distress, well developed and well groomed Nutritional Appearance: well nourished and obese Orientation/consciousness: oriented to person, oriented to place and oriented to time Limitations: No language barrier HEENT Head: Yes normocephalic and Yes atraumatic Eyes General: appearance normal, both eyes and all related structures Pupils: Equal, round and reactive pupils present Neck Neck: Yes normal visual inspection and Yes no lymphadenopathy Thyroid: Thyroid normal Resp Effort & Inspection: normal respiratory effort and able to speak in complete sentences Auscultation: clear to auscultation bilaterally Cardio Rate: regular rate Rhythm: regular rhythm Heart sounds: Normal, physiologic split S2 sound present Peripheral pulses: radial pulses present and posterior tibial pulses present GI Inspection: No distended, No Abdominal panniculus present and Yes obesity Palpation (GI): Soft to palpation, nontender, no guarding, not rigid and No hepatosplenomegaly present Percussion: Yes normal to percussion Auscultation: normal bowel sounds Rectal Exam - Female: deferred Skin General skin exam: no rashes or lesions noted, turgor normal, skin not dry, no jaundice, No spider nevi and no striae Rashes: no rashes Nails: normal Neuro General: oriented to person, oriented to place and oriented to time Cranial nerves: Yes Equal, round and reactive pupils present and Yes Normal hearing present Speech: No Abnormal speech present Extrem General: Yes normal to inspection, No clubbing, No cyanosis and No edema Psych Appearance: grossly normal and well kempt Mental Status: mental status grossly normal Speech and movement: Normal speech and movement present Affect: normal affect Attitude: cooperative Thought process: Normal thought process present and not confabulating Thought content: Normal thought content present Insight: Fair insight present (Psych) Judgement: Fair judgement present (Psych) Assessment & Plan Assessment & Plan (1) Irritable bowel syndrome with diarrhea: Code(s): K58.0 - Irritable bowel syndrome with diarrhea Plan: (2) GERD (gastroesophageal reflux disease): Code(s): K21.9 - Gastro-esophageal reflux disease without esophagitis Qualifiers: Esophagitis presence: without esophagitis Qualified Code(s): K21.9 - Gastro-esophageal reflux disease without esophagitis (3) Overactive bladder: Code(s): N32.81 - Overactive bladder (4) Dysphagia: Code(s): R13.10 - Dysphagia, unspecified Plan Diarrhea is controlled on 1 loperimide a day - but she is advised she can take more. Now having appetite problems, no taste since COVID 2 years ago, but also dysphagia is back. Seeing ENT and they have ordered (another) barium swallow. She had a mod in 09/2021. BUT had some improvement with past EGD and dilation so will order another. She continues on famotidine for her GERD. She is complaining of early satiety, she is IDDM so will get GES. ROV 3 mos. Gastric emptying study Orders: Orders EGD with [facility] - GI Use Only 04/18/23 R13.10 - Dysphagia, unspecified NM gastric emptying study 04/18/23 R68.81 - Early satiety Medications: Refilled oxybutynin chloride ER 10 mg PO DAILY 30 tabs 6RF N32.81 - Overactive bladder Discontinued alosetron Discontinued Reason: Insurance Denied 0.5 mg PO BID 60 tabs 3RF K91.5 - Postcholecystectomy syndrome sucralfate Discontinued Reason: Doctor's Order 2 grams (2 x 1 gram) PO DAILY 20 tabs 0RF K91.5 - Postcholecystectomy syndrome Coding Level of Care Code Est Pt Level 3 (07748) Diagnoses Irritable bowel syndrome with diarrhea K58.0 Gastroesophageal reflux disease without esophagitis K21.9 Esophagitis presence: without esophagitis Overactive bladder N32.81 Dysphagia R13.10
[2023-04-18 15:38] VITALS: BP 120/48; PULSE 71; BMI 32.8
== END 2023-04-18 16:28 | disposition home or self-care (01) ==
PROVIDERS: PCP Internal Medicine; Visit Provider Nurse Practitioner
DX: K58.0 Irritable bowel syndrome with diarrhea (principal); K21.9 Gastro-esophageal reflux disease without esophagitis; N32.81 Overactive bladder; R13.10 Dysphagia, unspecified
CPT/HCPCS: 99213

== ENCOUNTER → 2023-04-18 15:27 | Outpatient (BNVA) | payer MEDICARE, SELFPAY | PROVIDERS: PCP Internal Medicine; Visit Provider Nurse Practitioner | DX: K58.0 Irritable bowel syndrome with diarrhea (principal); K21.9 Gastro-esophageal reflux disease without esophagitis; R13.10 Dysphagia, unspecified; N32.81 Overactive bladder | CPT/HCPCS: 99212 ==

== ENCOUNTER 2023-04-23 10:04 | Outpatient (REF) | payer MEDICARE, SELFPAY ==
--- NOTE | ~2023-04-23 | FL_ITS ---
EXAMINATION: XR FLUOROSCOPY BARIUM SWALLOW ESOPHAGRAM CLINICAL INFORMATION: Dysphasia COMPARISON: None TECHNIQUE: Fluoroscopic air contrast upper GI examination was performed utilizing standard techniques with thin and thick barium and effervescent granules. Numerous spot images were obtained. FINDINGS: Lateral cine images of the oropharynx and hypopharynx demonstrate normal swallow mechanism with normal epiglottic inversion and soft palate elevation. There is penetration of thick barium to the false cords a trace amount to the true cords. No tracheal penetration is seen. No nasopharyngeal reflux present. Hypopharyngeal structures appear normal without evidence of mass or diverticulum. There was minimal cricopharyngeal achalasia. Dual and single contrast images of the esophagus demonstrate normal caliber, contour, and mucosal pattern. No evidence of stricture, mass, or ulcerations identified. There is moderate narrowing of the gastroesophageal junction, however, contrast flows beyond the junction and into the stomach. This may represent mild achalasia. Nonpropulsive tertiary contractions are noted in the mid and distal esophagus consistent with presbyesophagus. These were noted to be extensive and persistent, with a somewhat weak primary peristaltic wave. A small type I hiatus hernia is identified. No significant gastroesophageal reflux was seen during the course of the examination and on reflux views. FLUOROSCOPY TIME: 3 minutes 4 seconds Number of Spot Images: 3 Number of Cine: 7 DOSE AREA PRODUCT: [id number] uGy-m2 (microgray-meter squared) FL/FL barium swallow IMPRESSION: 1. Laryngeal penetration of thick barium to the false cords and a trace amount to the true cords 2. Moderate narrowing of the gastric esophageal junction, consider mild achalasia 3. Severe esophageal dysmotility. No mucosal abnormalities. 4. Small hiatus hernia. This procedure was performed by Hi Talley PA-C, and supervised by Dr. Olmedo
== END 2023-04-23 10:05 | disposition home or self-care (01) ==
LOC: HO.XRAY 10:04
PROVIDERS: PCP Internal Medicine; Visit Provider Otolaryngology
DX: R13.10 Dysphagia, unspecified (principal)
CPT/HCPCS: 74220

== ENCOUNTER → 2023-04-23 10:10 | Outpatient (BNV) | payer MEDICARE, SELFPAY | PROVIDERS: PCP Internal Medicine; Visit Provider Radiology Diagnostic Radiology | DX: R13.10 Dysphagia, unspecified (principal) | CPT/HCPCS: 74221 ==

== ENCOUNTER 2023-04-26 11:02 | Outpatient (AMB) | payer MEDICARE, SELFPAY ==
[2023-04-26 11:03] VITALS: BP 124/62; PULSE 65; O2SAT 100; BMI 32.8
--- NOTE | 2023-04-26 11:03 | A.OFFVIS_ITS ---
Intake Vital Signs 04/26/23 11:03 Height 4 ft 10 in Weight 157 lb BMI 32.8 BP 124/62 Blood Pressure Location Rt brachial Position Sitting Pulse 65 Pulse Source Pulse Oximeter Pulse Oximetry (%) 100 Oxygen Delivery Method Room Air Intake Visit Reasons: KATELYN [id number] Chocolate Coater Required: No Allergies duloxetine Allergy (Severe, Verified 04/26/23 11:29) LOOPY codeine [CODEINE] Allergy (Intermediate, Verified 04/26/23 11:29) GI UPSET doxycycline [DOXYCYCLINE] Allergy (Intermediate, Verified 04/26/23 11:29) RASH Sulfa (Sulfonamide Antibiotics) [SULFA (SULFONAMIDE ANTIBIOTICS)] Allergy (Intermediate, Verified 04/26/23 11:29) Hives Medication List - Last Reconciled 04/26/23 by ISAAC Deluna albuterol sulfate 90 mcg/actuation (ProAir HFA) 2 puffs inhalation Q4-6H PRN 30 days aspirin 81 mg PO DAILY atorvastatin 20 mg PO DAILY betamethasone valerate 0.1% 1 appl topical BID PRN blood sugar diagnostic ([email or web address] Ultra Test strips) As directed 3x daily cholecalciferol (vitamin D3) (Vitamin D3) 4,000 units PO DAILY famotidine 40 mg PO BID ferrous sulfate 325 mg PO DAILY fluticasone propionate 50 mcg/actuation 2 sprays intranasal DAILY folic acid 1 mg PO DAILY furosemide 20 mg PO DAILY gabapentin 600 mg PO TID hydroxychloroquine 200 mg PO BID insulin glargine (Lantus Solostar U-100 Insulin) 70 units (0.7 mL) subcut BEDTIME insulin lispro (Humalog Kervin Joyce (U-100)) 1 sliding scale dose subcut USEASDIRECTD insulin syringe-needle U-100 As directed ketoconazole 2% 1 appl topical BID lamotrigine 50 mg PO BID lidocaine 5% 1 patch topical DAILY lisinopril-hydrochlorothiazide 10-12.5 mg 1 tab PO DAILY 90 days loperamide 2 mg PO TID methotrexate sodium 15 mg (6 x 2.5 mg) PO QWEEK metronidazole 1% 1 appl topical DAILY oxybutynin chloride ER 10 mg PO DAILY pen needle, diabetic (BD [place] 2nd Gen Pen Needle) As directed sumatriptan succinate 50 mg PO DAILY PRN walker As directed zoledronic [id number] 5 mg/100 mL (Reclast) ea IV HPI SWV G0439 HPI Details Patient is a 72-year-old female who presents today for subsequent wellness visit. Patient of Dr. Pablo. Patient is up-to-date with health preventative screenings and immunizations. Mammogram normal 10/2022. Bone density screen 01/2023 with osteopenia. Colonoscopy 08/2021 which showed polypoid colonic mucosa was done by Dr. Melendez. [place] of care was reviewed with the patient and she was provided with a screening schedule. Patient has a healthcare proxy in place and she also has a MOLST form that she needs to fill out at home. [facility] Medical History Pacemaker TIA (transient ischemic attack) Rheumatoid arthritis Dysphagia Spinal stenosis COVID COVID-19 Laryngopharyngeal reflux (LPR) Asthma Rotator cuff tendinitis Post-menopausal Polyarthralgia Dyspnea on exertion Allergic rhinitis Bronchitis Asthma exacerbation Cough variant asthma DJD (degenerative joint disease) Decreased hearing GERD (gastroesophageal reflux disease) Type 2 diabetes 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s Surgical History S/P placement of cardiac pacemaker History of esophagogastroduodenoscopy (EGD) History of colonoscopy Hx of cholecystectomy Hx of tonsillectomy Hx of hysterectomy Family History Father CVD (cardiovascular disease) Diabetes Mother Diabetes Sister No problems noted. Other Substance use disorder Social History Household Members: Family and None Housing: House Are you a primary lawn care professional to a significant other at home: No Do you presently have visiting nurse or other home services: No Alcohol intake: former Patient Tobacco Use Status: Never used Tobacco e-Cigarette/Vaping Use: Never Used Second Hand Smoke Exposure: No Advance Directives Date on File: 08/04/22 service: No Current occupational status: retired Cognitive needs: Yes (walker) Hearing needs: Yes (hearing aide) Vision needs: Yes (glasses) Questionnaire Medicare Wellness Checkup [age] What gender do you identify with?: female During the past 4 weeks, how much have you been bothered by emotional problems such as feeling anxious, depressed, irritable, sad or downhearted, and blue?: not at all During the past 4 weeks, has your physical & emotional health limited your social activities with family, friends, neighbors, or groups?: not at all During the past 4 weeks, how much bodily pain have you generally had?: very mild pain During the past 4 weeks, was someone available to help you if you needed & wanted help?: yes, quite a bit During the past 4 weeks, what was the hardest physical activity you could do for at least 2 minutes?: moderate Can you get to places out of walking distance without help? (For eg., can you travel alone on buses, taxis or drive your car?): Yes Can you go shopping for groceries or clothes without someone's help?: Yes Can you prepare your own meals?: Yes Can you do your housework without help?: Yes Because of any health problems, do you need the help of another person with your personal care needs such as eating, bathing, dressing or getting around the house?: No Can you handle your own money without help?: Yes During the past 4 weeks, how would you rate your health in general?: good During the past 4 weeks how have things been going for you?: good & bad parts about equal Are you having difficulties driving your car?: no Do you always fasten your seat belt when you are in a car?: yes, usually During past 4 weeks, have you been bothered by the following: never: Sexual problems?, Trouble eating well?, Teeth or denture problems? and Problems using the telephone?, seldom: Falling or dizzy when standing up and often: Tiredness or fatigue? Have you fallen 2 or more times in the past year?: Yes Are you afraid of falling?: Yes Are you a smoker?: no During the past 4 weeks, how many drinks of wine, beer, or other alcoholic beverages did you have?: no alcohol at all Do you exercise for about 20 minutes 3 or more times a week?: yes, some of the time How often do you have trouble taking medicines the way you have been told to take them?: I always take medicine as prescribed How confident are you that you can control & manage most of your health problems?: very confident What is your race?: White Mini Mental State Exam (MMSE) Orientation What is the (year) (season) (date) (day) (month)?: year, season, date, day and month Score Score: 5 Activity of Daily Living Bathing - sponge bath, tub bath or shower: receives no assistance (gets in/out by self, if usual bathing means Dressing - getting clothes from closets & drawers, including inner/outer garments & fasteners.: gets clothes & gets completely dressed without help Toileting - going to the 'toilet room' for urine/bowel elimination & cleaning self/arranging clothes: goes to toilet room, cleans self, arranges clothes without help Transfer: moves in & out of bed and chair without help (may use support object) Continence: controls urination/bowel movements completely by self Feeding: feeds self without help Total Score: 0 Information obtained from: patient Using telephone: independent Traveling: independent Shopping: independent Preparing meals: independent Housework: independent Taking medicine: independent Managing money: independent PHQ-9 Over the last 2 weeks, how often have you been bothered by any of the following problems? 1. Little interest or pleasure in doing things: not at all 2. Feeling down, depressed, or hopeless: not at all 3. Trouble falling or staying asleep, or sleeping too much: not at all 4. Feeling tired or having little energy: not at all 5. Poor appetite or overeating: not at all 6. Feeling bad about yourself - or that you are a failure or have let yourself or your family down: not at all 7. Trouble concentrating on things, such as reading the newspaper or watching television: not at all 8. Moving or speaking so slowly that other people could have noticed. Or the opposite - being so fidgety or restless that you have been moving around a lot more than usual: not at all 9. Thoughts that you would be better off or of hurting yourself in some way: not at all Total score: 0 Depression Screening Interpretation: Negative Depression Screening Done: Yes 88709 - PHQ-9 Billing: Yes Source: Developed by Drs. Jonathan Sandoval, Dodie Tejada, Alberto Elizondo and colleagues, with an educational mark from [employer] Physical Exam Vital Signs: Last Vital Signs Pulse 65 04/26/23 11:03 BP 124/62 04/26/23 11:03 Pulse Ox 100 04/26/23 11:03 Oxygen Delivery Method Room Air 04/26/23 11:03 BMI result Body Mass Index 32.8 Const General: cooperative and no acute distress Orientation/consciousness: patient oriented x3 HEENT Other: Whisper test: fail Neuro Other: Balance: Normal Get up and walk: unable to Romberg: negative Tandem gait: unable to General: patient oriented x3 Assessment & Plan Assessment & Plan (1) Adult general medical exam: Code(s): Z00.00 - Encounter for general adult medical examination without abnormal findings (2) Asthma: Comment: MILD, INTERMITTENT. TX USE PROAIR 2 PUFFS Q 4-6 HOURS P.R.N. NO NEED OF USING ANY LONG-ACTING BRONCHODILATORS OR ICS . Code(s): J45.909 - Unspecified asthma, uncomplicated Plan: Continue to follow-up with pulmonology. Continue current treatment. (3) Osteopenia: Comment: 11/2020 T scores: AP SPINE -1.3;LEFT FEMUR, NECK:-0.5;R, Left FEMUR TOTAL: 0.6; FRAX 14.5%/1.2%. Reclast infusion 03/08/202301/2023: Spine -1.1, fem neck -2.1, hip -1.0.Frax 24.2/6.7 Code(s): M85.80 - Other specified disorders of bone density and structure, unspecified site Plan: Continue current treatment. Continue to follow-up with rheumatology. (4) Rheumatoid arthritis: Comment: Subcutaneous methotrexate: start date unknown? Around 2019 or 2019-January 2022 Plaquenil: Start date unknown ? Around 2019 or 2019 Oral methotrexate- January 2022 to present Code(s): M06.9 - Rheumatoid arthritis, unspecified Qualifiers: Rheumatoid arthritis location: multiple sites Rheumatoid factor presence: without rheumatoid factor Qualified Code(s): M06.09 - Rheumatoid arthritis without rheumatoid factor, multiple sites Plan: Continue to follow-up with rheumatology. (5) Polyarthralgia: Code(s): M25.50 - Pain in unspecified joint Plan: Continue to follow-up with rheumatology (6) Anemia: Code(s): D64.9 - Anemia, unspecified Qualifiers: Anemia type: unspecified type Qualified Code(s): D64.9 - Anemia, unspecified Plan: Continue to follow-up with Hematology. (7) Allergic rhinitis: Comment: Mild chronic, controlled. TX: Flonase 2 spray each nostril daily Cetrazine 10 mg PO PRN Code(s): J30.9 - Allergic rhinitis, unspecified Plan: Stable (8) Cough variant asthma: Code(s): J45.991 - Cough variant asthma Plan: Continue to follow-up with pulmonology. Continue current treatment. (9) DJD (degenerative joint disease): Code(s): M19.90 - Unspecified osteoarthritis, unspecified site Qualifiers: Osteoarthritis location: spine Spinal region: lumbar Spinal osteoarthritis complication: without myelopathy or radiculopathy Qualified Code(s): M47.816 - Spondylosis without myelopathy or radiculopathy, lumbar region Plan: Stable Continue to monitor (10) GERD (gastroesophageal reflux disease): Code(s): K21.9 - Gastro-esophageal reflux disease without esophagitis Qualifiers: Esophagitis presence: without esophagitis Qualified Code(s): K21.9 - Gastro-esophageal reflux disease without esophagitis Plan: Continue current treatment. Encouraged to avoid GERD trigger foods. Continue to follow-up with gastroenterology (11) Type 2 diabetes 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s: Code(s): E11.9 - Type 2 diabetes 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s Qualifiers: Diabetes mellitus assistant terminal manager insulin use: with assistant terminal manager use Qualified Code(s): E11.9 - Type 2 diabetes 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s; Z79.4 - terminal gauger (current) use of insulin Plan: A1c 5.0 03/2023 Continue current treatment Low-carbohydrate diet (12) Irritable bowel syndrome with diarrhea: Code(s): K58.0 - Irritable bowel syndrome with diarrhea Plan: Continue to follow-up with gastroenterology Quality Reporting (2019) Depression/Bipolar (159/160/161/177) PHQ-9: Total score: 0 Coding Level of Care Code Medicare Subsequent (G0439) Diagnoses Adult general medical exam Z00.00 Asthma J45.909 Osteopenia M85.80 Rheumatoid arthritis of multiple sites with negative rheumatoid factor M06.09 Rheumatoid arthritis location: multiple sites Rheumatoid factor presence: without rheumatoid factor Polyarthralgia M25.50 Anemia, unspecified type D64.9 Anemia type: unspecified type Allergic rhinitis J30.9 Cough variant asthma J45.991 Spondylosis of lumbar region without myelopathy or radiculopathy M47.816 Osteoarthritis location: spine Spinal region: lumbar Spinal osteoarthritis complication: without myelopathy or radiculopathy Gastroesophageal reflux disease without esophagitis K21.9 Esophagitis presence: without esophagitis Type 2 diabetes 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, with long-term current use of insulin E11.9; Z79.4 Diabetes mellitus snf insulin use: with assistant terminal manager use Irritable bowel syndrome with diarrhea K58.0 CPT Codes Advance Care Planning - Advance Care Planning discussion: On file, no changes ([id number]) Advance Care Planning - Time spent: 1-15 minutes, on File ([id number]) Advance Care Planning Advance Care Planning discussion: On file, no changes Date of discussion: 04/26/23 Who was present: pt and inpatient nursing aide Forms completed: None Time spent: 1-15 minutes, on File Actual minutes spent: 1 Did not discuss due to Cultural/Spiritual beliefs: No
== END 2023-04-26 11:57 | disposition home or self-care (01) ==
PROVIDERS: PCP Internal Medicine; Visit Provider Nurse Practitioner Family
DX: Z00.00 Encounter for general adult medical examination without abnormal findings (principal)
CPT/HCPCS: 1123F; G0439

== ENCOUNTER 2023-04-27 12:02 | Outpatient (REF) | payer MEDICARE, SELFPAY ==
[2023-04-27 12:21] LABS: MANUAL DIFF FLAG NO
[2023-04-27 12:58] LABS: Basophils Absolute Auto 0.1 X10*3/uL (0.0-0.2); Basophils Percent Auto 0.7 % (0-2); Eosinophils Absolute Auto 0.3 X10*3/uL (0.0-0.4); Eosinophils Percent Auto 3.5 % (0-4); Hematocrit 30.5 % (37.0-47.0); Hemoglobin 10.4 g/dl (12.0-16.0); Imm Gran Abs Auto 0.02 X10*3/uL (0.00-0.03); Imm Gran Pct Auto 0.2 % (0.0-0.4); Lymphocytes Absolute Auto 1.6 X10*3/uL (1.2-4.9); Lymphocytes Percent Auto 18.1 % (20-40); Mean Corpuscular HGB Conc 34.1 g/dl (31.0-35.0); Mean Corpuscular Volume 96.8 fL (80.0-98.0); Mean Platelet Volume 11.2 fL (9.4-12.3); Monocytes Absolute Auto 0.5 X10*3/uL (0.1-1.2); Monocytes Percent Auto 5.3 % (2-11); NRBC Pct Auto 0.2 /100WBC (0.0-0.2); Neutrophils Absolute Auto 6.2 x10*3/uL (2.0-8.3); Neutrophils Percent Auto 72.2 % (45-73); Platelet Count 230 X10*3/uL (160-400); Red Blood Count 3.15 X10*6/uL (4.20-5.50); Red Cell Distribution Width 13.6 % (11.0-16.0); White Blood Count 8.6 X10*3/uL (4.8-10.8)
[2023-04-27 13:45] LABS: Erythrocyte Sedimentation Rate 16 MM/HR (0-20)
[2023-04-27 14:09] LABS: Alanine Aminotransferase 23 U/L (0-31); Anion Gap 14 (12-20); Aspartate Amino Transferase 25 U/L (5-31); Blood Urea Nitrogen 23 mg/dL (9-16); C Reactive Protein 1.43 mg/dL (< or = 0.50); Calcium 10.6 mg/dL (8.4-10.2); Carbon Dioxide 28 mmol/L (22-29); Chloride 102 mmol/L (96-108); Estimated Glomerular Filt Rate 39; Glucose Random 127 mg/dL (60-115); Potassium 4.3 mmol/L (3.3-5.1); Sodium 140 mmol/L (135-145)
== END 2023-04-27 12:03 | disposition home or self-care (01) ==
LOC: HO.LAB 12:02
PROVIDERS: PCP Internal Medicine; Visit Provider Internal Medicine Rheumatology
DX: M06.09 Rheumatoid arthritis without rheumatoid factor, multiple sites (principal); E11.9 Type 2 diabetes 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s; Z79.4 Long term (current) use of insulin; Z79.899 Other long term (current) drug therapy
CPT/HCPCS: 36415; 80048; 84450; 84460; 85025; 85652; 86140

== ENCOUNTER 2023-04-30 08:52 | Outpatient (AMB) | payer MEDICARE, SELFPAY ==
--- NOTE | 2023-04-30 08:58 | A.OFFVIS_ITS ---
Intake Vital Signs 04/30/23 08:59 Height 4 ft 10 in Weight 158 lb 8.198 oz BMI 33.1 BP 108/60 Blood Pressure Location Rt brachial Position Sitting Pulse 83 Pulse Source Pulse Oximeter Temp 97.5 F Temp Source Skin Pulse Oximetry (%) 95 Oxygen Delivery Method Room Air Intake Visit Reasons: ra Intake Note: Patient presents today to follow up on RA. Clinical Assoc Required: No Accompanied by: Self / Same As Patient Allergies duloxetine Allergy (Severe, Verified 04/30/23 09:02) LOOPY codeine [CODEINE] Allergy (Intermediate, Verified 04/30/23 09:02) GI UPSET doxycycline [DOXYCYCLINE] Allergy (Intermediate, Verified 04/30/23 09:02) RASH Sulfa (Sulfonamide Antibiotics) [SULFA (SULFONAMIDE ANTIBIOTICS)] Allergy (Intermediate, Verified 04/30/23 09:02) Hives Medication List - Last Reconciled 04/30/23 by Jake Holden MD albuterol sulfate 90 mcg/actuation (ProAir HFA) 2 puffs inhalation Q4-6H PRN 30 days aspirin 81 mg PO DAILY atorvastatin 20 mg PO DAILY betamethasone valerate 0.1% 1 appl topical BID PRN blood sugar diagnostic (OneTouch Ultra Test strips) As directed 3x daily cholecalciferol (vitamin D3) (Vitamin D3) 4,000 units PO DAILY famotidine 40 mg PO BID ferrous sulfate 325 mg PO DAILY fluticasone propionate 50 mcg/actuation 2 sprays intranasal DAILY folic acid 1 mg PO DAILY furosemide 20 mg PO DAILY gabapentin 600 mg PO TID hydroxychloroquine 200 mg PO BID insulin glargine (Lantus Solostar U-100 Insulin) 70 units (0.7 mL) subcut BEDTIME insulin lispro (Humalog Kervin KwikPen (U-100)) 1 sliding scale dose subcut USEASDIRECTD insulin syringe-needle U-100 As directed ketoconazole 2% 1 appl topical BID lamotrigine 50 mg PO BID lidocaine 5% 1 patch topical DAILY lisinopril-hydrochlorothiazide 10-12.5 mg 1 tab PO DAILY 90 days loperamide 2 mg PO TID methotrexate sodium 15 mg (6 x 2.5 mg) PO QWEEK metronidazole 1% 1 appl topical DAILY oxybutynin chloride ER 10 mg PO DAILY pen needle, diabetic (BD [place] 2nd Gen Pen Needle) As directed sumatriptan succinate 50 mg PO DAILY PRN walker As directed zoledronic [id number] 5 mg/100 mL (Reclast) ea IV HPI HPI Comments History of Present Illness Details The patient returns for evaluation of her rheumatoid arthritis, osteoarthritis, and osteopenia. She had received an infusion of zoledronic acid back in February that was uneventful. That was her 1st infusion. She also has diabetic neuropathy and takes gabapentin 600 mg in the morning and 1200 mg in the evening mostly for nocturnal foot and leg pain. In general the joints are doing fairly well. She does get occasional pains in the fingers across the PIP or DIP joints. She gets pain in the feet over the instep regions where she has some bony prominences. There does not appear to be any side effects with her medications for the RA which include at this point 15 mg weekly methotrexate, hydroxychloroquine 200 b.i.d., and folic acid 1 mg daily. She had an eye exam last August and has another exam planned in July of next year. She also uses wax treatments at home for her hands which she finds helpful. She has trouble walking mostly because of balance issues and uses a walker for long distances. [facility] Medical History Pacemaker TIA (transient ischemic attack) Rheumatoid arthritis Dysphagia Spinal stenosis COVID COVID-19 Laryngopharyngeal reflux (LPR) Asthma Rotator cuff tendinitis Post-menopausal Polyarthralgia Dyspnea on exertion Allergic rhinitis Bronchitis Asthma exacerbation Cough variant asthma DJD (degenerative joint disease) Decreased hearing GERD (gastroesophageal reflux disease) Type 2 diabetes 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s Surgical History S/P placement of cardiac pacemaker History of esophagogastroduodenoscopy (EGD) History of colonoscopy Hx of cholecystectomy Hx of tonsillectomy Hx of hysterectomy Family History Father CVD (cardiovascular disease) Diabetes Mother Diabetes Sister No problems noted. Other Substance use disorder Social History Household Members: Family and None Housing: House Are you a primary pharmacy care coordinator to a significant other at home: No Do you presently have visiting nurse or other home services: No Alcohol intake: former Patient Tobacco Use Status: Never used Tobacco e-Cigarette/Vaping Use: Never Used Second Hand Smoke Exposure: No Advance Directives Date on File: 08/04/22 service: No Current occupational status: retired Cognitive needs: Yes (walker) Hearing needs: Yes (hearing aide) Vision needs: Yes (glasses) Review of Systems Const Details: Negative for appetite change, weight change, fever, chills, malaise and fatigue Eyes Details: Negative for vision change, dry eyes,headaches and dizziness ENT Details: Negative for hearing change, tinnitus, oral ulcer, nose bleeds and oral dryness. Card Details: Negative chest pain, edema and syncope Resp Details: Negative for SOB, cough and wheezing GI Details: Negative indigestion/heartburn, nausea, abdominal pain, bowel changes, diarrhea, constipation and bloody stool. Skin/Breast Details: Negative for itching, rash, hives, Raynaud's symptoms, sun sensitivity, and skin cancer Neuro Details: Numbness in the soles of the feet, burning pain at night contributed to neuropathy. Negative for epilepsy, palsy, stroke, changes in speech, and weakness Endo Details: Negative for polyuria and polydypsia Umer/Lymph Details: Negative for excessive bruising or bleeding. Physical Exam Vital Signs: Last Vital Signs Temp 97.5 F 04/30/23 08:59 Pulse 83 04/30/23 08:59 BP 108/60 04/30/23 08:59 Pulse Ox 95 04/30/23 08:59 Oxygen Delivery Method Room Air 04/30/23 08:59 BMI result Body Mass Index 33.1 APPEARANCE: Patient in no acute distress EYES no redness, pupils equal and reactive to light, eyelids normal. No temporal artery tenderness, redness or swelling EXTREMITIES: No edema, no calf tenderness, normal peripheral pulses. JOINT EXAM: Cervical Spine:? Full range of motion without pain; no tenderness. Thoracic Spine:?? No tenderness on palpation. Lumbar Spine:? Alignment normal.? Full range of motion, some pain with flexion, slight tenderness to palpation over lumbar spine. Hands:? LEFT:? There is slight puffiness across the MCPs but they are not tender. There is no flexor tendon triggering, thenar atrophy or sensory loss. There is slightly tender bony enlargement at the base of the thumb. There is mild bony enlargement without at the 2nd through 5th PIP joints. There is slight tenderness at the 3rd PIP. There is some minimal bony enlargement at the PIP joints and the 2nd 3rd are slightly tender. Right: There is mild bony enlargement without tenderness at the thumb IP, all the PIP joints and the 2nd D IP and 3rd D IP joint. There is no MCP swelling or tenderness. Wrists: Normal pain-free range of motion without tenderness, swelling, increased warmth or erythema. Elbows: Normal pain-free range of motion without tenderness, swelling, increased warmth or erythema. Shoulders:? Right: Mild pain with extremes of normal range of motion. There is some minimal anterior tenderness without abductor weakness or adenopathy. Left: Full range of motion without pain. No tenderness, weakness, swelling, increased warmth or erythema. Hips: The Full range of motion without pain. Hip bursa:? No tenderness. Knees:?? Normal pain-free range of motion without tenderness, swelling, increased warmth or erythema.? There is no effusion or crepitation Ankles: Normal pain-free range of motion without tenderness, swelling, increased warmth or erythema. Feet: Right: Normal pain-free range of motion with mild bony enlargement without tenderness at the 1st MTP. There is some slightly tender bony prominence at the proximal end of the 5th metatarsal. She has some mild heel tenderness and some slightly tender bony enlargement over the instep consistent with some osteoarthritis. Left: There is mild bony enlargement over the instep that slightly tender. She also has some slight bony enlargement with tenderness over the instep. There is some heel tenderness on the medial side. The 1st MTP has some minimal bony enlargement without tenderness. Other joints have no tenderness, swelling, increased warmth or erythema. ? Results Reviewed Results Reviewed: Laboratory Tests 04/27/23 12:18 WBC 8.6 Hgb 10.4 L ESR 16 Creatinine 1.34 AST 25 ALT 23 C-Reactive Protein 1.43 H Assessment & Plan Assessment & Plan (1) Osteoarthritis of hands, bilateral: Code(s): M19.041 - Primary osteoarthritis, right hand; M19.042 - Primary osteoarthritis, left hand (2) Long-term use of hydroxychloroquine: Comment: For RA since 201?. 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 She has some bony enlargement in many joints in the hands and feet consistent with some osteoarthritis. There is some numbness and nocturnal pain in the feet consistent with diabetic neuropathy and that probably gives her some degree of balance difficulty. I encouraged her to stay ambulatory with a walker for safety's sake. The lab work looks good so I think we can continue with the methotrexate as above. She has a slight anemia, probably due to underlying iron deficiency that has been noted before as well as her CKD. I think she can continue with her medications for the RA as above. We would recommend lab work again in June and August and a return visit in August. She will call us with any flare-up of joint symptoms. We would aim for another dose of the zoledronic acid next February for her osteopenia. Orders: Orders Erythrocyte Sedimentation Rate Today M06.9 - Rheumatoid arthritis, unspecified Alanine Aminotransferase Today M06.9 - Rheumatoid arthritis, unspecified, Z79.899 - Other intermediate (current) drug therapy Complete Blood Count Auto Diff 1 Month M06.9 - Rheumatoid arthritis, unspecified, Z79.899 - Other termite control representative (current) drug therapy C Reactive Protein Today M06.9 - Rheumatoid arthritis, unspecified Aspartate Amino Transferase Today M06.9 - Rheumatoid arthritis, unspecified, Z79.899 - Other intermediate (current) drug therapy Creatinine Today M06.9 - Rheumatoid arthritis, unspecified, Z79.899 - Other intermediate (current) drug therapy Coding Level of Care Code Est Pt Level 3 (24896) Diagnoses Osteoarthritis of hands, bilateral M19.041; M19.042 Long-term use of hydroxychloroquine Z79.899 long term acute care registered nurse use of drug Z79.899 Rheumatoid arthritis M06.9
[2023-04-30 08:59] VITALS: BP 108/60; PULSE 83; TEMP 36.4; O2SAT 95; BMI 33.1
== END 2023-04-30 09:33 | disposition home or self-care (01) ==
PROVIDERS: PCP Internal Medicine; Visit Provider Internal Medicine Rheumatology
DX: M19.041 Primary osteoarthritis, right hand (principal); M19.042 Primary osteoarthritis, left hand; Z79.899 Other long term (current) drug therapy; M06.9 Rheumatoid arthritis, unspecified
CPT/HCPCS: 99213

== ENCOUNTER → 2023-04-30 08:52 | Outpatient (BNVA) | payer MEDICARE, SELFPAY | PROVIDERS: PCP Internal Medicine; Visit Provider Internal Medicine Rheumatology | DX: M19.041 Primary osteoarthritis, right hand (principal); M19.042 Primary osteoarthritis, left hand; M06.9 Rheumatoid arthritis, unspecified; Z79.899 Other long term (current) drug therapy | CPT/HCPCS: 99212 ==

== ENCOUNTER 2023-05-01 17:12 | Outpatient (REF) | payer MEDICARE, SELFPAY ==
[2023-05-03 18:44] LABS: Transglutaminase Ab IgG <1.0 U/mL; Transglutaminase IgA <1.0 U/mL
[2023-05-08 10:23] LABS: Gliadin Deamidated IgA Ab <1.0 U/mL; Gliadin Deamidated IgG Ab <1.0 U/mL
== END 2023-05-01 17:13 | disposition home or self-care (01) ==
LOC: HO.LAB 17:12
PROVIDERS: PCP Internal Medicine; Visit Provider Nurse Practitioner
DX: K58.0 Irritable bowel syndrome with diarrhea (principal)
CPT/HCPCS: 36415; 86258; 86364

== ENCOUNTER → 2023-05-08 23:59 | Outpatient (BNV) | payer MEDICARE, SELFPAY ==
--- NOTE | 2023-05-10 16:19 | A.OFFVIS_ITS ---
Intake Intake Visit Reasons: Remote Device Check- [facility] Allergies duloxetine Allergy (Severe, Verified 04/30/23 09:02) LOOPY codeine [CODEINE] Allergy (Intermediate, Verified 04/30/23 09:02) GI UPSET doxycycline [DOXYCYCLINE] Allergy (Intermediate, Verified 04/30/23 09:02) RASH Sulfa (Sulfonamide Antibiotics) [SULFA (SULFONAMIDE ANTIBIOTICS)] Allergy (Intermediate, Verified 04/30/23 09:02) Hives [facility] Medical History Pacemaker TIA (transient ischemic attack) Rheumatoid arthritis Dysphagia Spinal stenosis COVID COVID-19 Laryngopharyngeal reflux (LPR) Asthma Rotator cuff tendinitis Post-menopausal Polyarthralgia Dyspnea on exertion Allergic rhinitis Bronchitis Asthma exacerbation Cough variant asthma DJD (degenerative joint disease) Decreased hearing GERD (gastroesophageal reflux disease) Type 2 diabetes 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s Surgical History S/P placement of cardiac pacemaker History of esophagogastroduodenoscopy (EGD) History of colonoscopy Hx of cholecystectomy Hx of tonsillectomy Hx of hysterectomy Family History Father CVD (cardiovascular disease) Diabetes Mother Diabetes Sister No problems noted. Other Substance use disorder Social History Household Members: Family and None Housing: House Are you a primary healthcare economics manager to a significant other at home: No Do you presently have visiting nurse or other home services: No Alcohol intake: former Patient Tobacco Use Status: Never used Tobacco e-Cigarette/Vaping Use: Never Used Second Hand Smoke Exposure: No Advance Directives Date on File: 08/04/22 service: No Current occupational status: retired Cognitive needs: Yes (walker) Hearing needs: Yes (hearing aide) Vision needs: Yes (glasses) Office Procedures Cardiac Device Check Cardiac Device Check Details: Remote pacemaker report generated 05/08/2023. Pacemaker function is adequate. Patient ventricularly pacer dependent [id number] Cardiac Device Interrogation, pacemaker Procedure code (CPT) selection complete Coding Level of Care Code Procedure Only CPT Codes Cardiac Device Check - Cardiac Device 12: [id number] Cardiac Device Interrogation, pacemaker ([id number])
== END ==
PROVIDERS: PCP Internal Medicine; Visit Provider Internal Medicine Cardiovascular Disease
DX: I44.2 Atrioventricular block, complete (principal); Z95.0 Presence of cardiac pacemaker
CPT/HCPCS: 93294

== ENCOUNTER → 2023-05-10 08:26 | Outpatient (REF) | payer MEDICARE, SELFPAY ==
--- NOTE | ~2023-05-10 | NM_ITS ---
EXAMINATION: NM RADIONUCLIDE SOLID FOOD GASTRIC EMPTYING 4-HOUR STUDY CLINICAL INFORMATION: Early satiety. COMPARISON: None available. TECHNIQUE: A standard meal consisting of 4 oz of Egg Beaters brand tagged with 900 microcuries Tc-99m Sulfur Colloid, 8 oz water and 2 slices of toast with jelly was administered orally to the patient. Images were obtained using a dual head gamma camera in the anterior and posterior projections over of the stomach immediately post ingestion and at hourly intervals up to 4 hours post ingestion. The anterior and posterior counts at each time interval were averaged using the geometric mean and expressed as percentage of the immediate post ingestion counts. FINDINGS: There is good visualization of activity in the stomach immediately post ingestion. As the study progresses, there is good clearance of activity from the stomach and visualization of progressively increasing small bowel activity. By the end of the study, there is almost no retention noted in the stomach. Retention in the stomach at each time interval was: 1 hour 77% (normal 37%-90%) 2 hours 21% (normal 30%-60%) 3 hours 3% 4 hours images were not performed since only 3% retention was noted at 3 hours interval. MI/MI gastric emptying study IMPRESSION: Normal 4-hour solid food gastric emptying study. (For solid meal, rapid gastric emptying is less than 30% at 60 minutes. Delayed gastric emptying criteria is more than 60% remaining at 120 minutes or more than 10% at 240 minutes. The 4-hour value is the best discriminator of a normal or abnormal result). Gastric emptying study grading per JNMT Consensus Recommendations in 2008 (https://tech.snmjournals.org/content/36/44) Grade 1 (mild retention): 11-20% at 4h Grade 2 (moderate retention): 21-35% at 4h Grade 3 (severe retention): 36-50% at 4h Grade 4 (very severe retention): >50% retention at 4h
== END ==
LOC: HO.NUCMED 08:26
PROVIDERS: PCP Internal Medicine; Visit Provider Nurse Practitioner
DX: R68.81 Early satiety (principal)
CPT/HCPCS: 78264; A9541

== ENCOUNTER 2023-06-05 12:54 | Day surgery (SDC) | payer MEDICARE, SELFPAY ==
[2023-06-01 09:47] VITALS: BMI 32.8
--- NOTE | 2023-06-04 09:34 | HO.ANESPROP2 ---
Documented by User: Xochilt Ordonez NP 06/04/23 09:38 HPI - Anesthesia Eval Consult details Narrative: 72yo F for Upper Endoscopy Pacer in situ. Follows [facility] cardiology for CHB. 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 (Acute) Osteoarthritis of hands, bilateral (Acute) Long-term use of hydroxychloroquine (Acute) Complete heart block (Acute) Anemia (Chronic) Rheumatoid arthritis (Acute) Osteopenia (Acute) Post-cholecystectomy syndrome (Acute) Tubular adenoma of colon (Acute) Dysphagia (Acute) Eczema (Acute) Irritable bowel syndrome with diarrhea (Acute) Hypercholesterolemia (Acute) Pacemaker (Acute) Asthma (Acute) Dyspnea on exertion (Acute) Allergic rhinitis (Acute) DJD (degenerative joint disease) (Acute) Decreased hearing (Acute) GERD (gastroesophageal reflux disease) (Acute) Type 2 diabetes 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s (Acute) Past Medical History Medical History Pacemaker TIA (transient ischemic attack) Rheumatoid arthritis Dysphagia Spinal stenosis COVID COVID-19 Laryngopharyngeal reflux (LPR) Asthma Rotator cuff tendinitis Post-menopausal Polyarthralgia Dyspnea on exertion Allergic rhinitis Bronchitis Asthma exacerbation Cough variant asthma DJD (degenerative joint disease) Decreased hearing GERD (gastroesophageal reflux disease) Type 2 diabetes 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s Family History Family History Father CVD (cardiovascular disease) Diabetes Mother Diabetes Sister No problems noted. Other Substance use disorder Surgical History Surgical History S/P placement of cardiac pacemaker History of esophagogastroduodenoscopy (EGD) History of colonoscopy Hx of cholecystectomy Hx of tonsillectomy Hx of hysterectomy History of Problems with Anesthesia: No Social History Social History Household Members: Family and None Housing: House Are you a primary care management associate to a significant other at home: No Do you presently have visiting nurse or other home services: No Alcohol intake: former Patient Tobacco Use Status: Never used Tobacco e-Cigarette/Vaping Use: Never Used Second Hand Smoke Exposure: No Advance Directives: No Advance Directives Information Provided: Yes Advance Directives Date on File: 08/04/22 service: No Current occupational status: retired Cognitive needs: Yes (walker) Hearing needs: Yes (hearing aide) Vision needs: Yes (glasses) Meds Allergies Allergy/AdvReac Type Severity Reaction Status Date / Time duloxetine Allergy Severe LOOPY Verified 04/30/23 09:02 codeine [CODEINE] Allergy Intermediate GI UPSET Verified 04/30/23 09:02 doxycycline [DOXYCYCLINE] Allergy Intermediate RASH Verified 04/30/23 09:02 Sulfa (Sulfonamide Allergy Intermediate Hives Verified 04/30/23 09:02 Antibiotics) [SULFA (SULFONAMIDE ANTIBIOTICS)] Home Medications Medication Instructions Recorded Confirmed Last Taken Type aspirin 81 mg tablet,delayed 81 mg PO DAILY 08/26/20 04/30/23 Unknown History release gabapentin 600 mg tablet 600 mg PO TID 2 at night 09/20/22 04/30/23 Unknown History insulin lispro 100 unit/mL 1 sliding scale dose subcut 09/20/22 04/30/23 Unknown History subcutaneous half-unit pen USEASDIRECTD (Humalog Kervin KwikPen (U-100)) lamotrigine 25 mg tablet 50 mg PO BID 02/13/23 04/30/23 Unknown History cholecalciferol (vitamin D3) 50 4,000 unit PO DAILY 03/05/23 04/30/23 Unknown History mcg (2,000 unit) capsule (Vitamin D3) zoledronic acid 5 mg/100 mL in ea IV 03/21/23 04/30/23 Unknown History mannitol 5 %-water intravenous piggybck (Reclast) sumatriptan succinate 50 mg tablet 50 mg PO DAILY PRN 04/18/23 04/30/23 Unknown History Exam Height,Weight and Vital Signs: Height 4 ft 10 in Weight 71.214 kg Narrative Narrative: Cardiac Device Check 12/2022 Details: Dual-chamber [facility] pacemaker in place. Programmed in DDDR at 60 beats per minute. Ventricularly pacer dependent. Atrial capture thresholds excellent and in our capture mode. Ventricular capture thresholds are excellent and reprogrammed to enhance battery life. Atrial sensing is excellent. Pacing lead impedance is stable. Battery life is excellent ECHO 10/2022 Conclusions: - The left ventricular systolic function is low normal. The calculated ejection fraction is 53% by biplane method. - LV peak GLS -14.4%. - There is low normal right ventricular systolic function. - There is mild mitral valve regurgitation. NM rodolfo perf SPECT rest & str 10/2022 Impression: 1. Myocardial perfusion imaging study shows no definitive evidence of ischemia. Small fixed defects noted in the distal anterior septum/septum and distal inferolateral wall as well as adjacent apex. These could reflect prior subendocardial infarction. Artifact/pacing reported findings also possible. Overall, study quality suboptimal. 2. Gated LVEF is 36% during stress, but visually higher; 49% during rest. 3. Transient ischemic dilatation not present. EKG component of the test reported separately. Assessment and Plan Assessment Anesthesia Assessment: Chart Reviewed Final Anesthetic Review History of Problems with Anesthesia: No Documented by User: Maris Wlils MD 06/05/23 13:34 [facility] Past Medical History Medical History Pacemaker TIA (transient ischemic attack) Rheumatoid arthritis Dysphagia Spinal stenosis COVID COVID-19 Laryngopharyngeal reflux (LPR) Asthma Rotator cuff tendinitis Post-menopausal Polyarthralgia Dyspnea on exertion Allergic rhinitis Bronchitis Asthma exacerbation Cough variant asthma DJD (degenerative joint disease) Decreased hearing GERD (gastroesophageal reflux disease) Type 2 diabetes 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s Family History Family History Father CVD (cardiovascular disease) Diabetes Mother Diabetes Sister No problems noted. Other Substance use disorder Family history of problems with anesthesia: No Surgical History Surgical History S/P placement of cardiac pacemaker History of esophagogastroduodenoscopy (EGD) History of colonoscopy Hx of cholecystectomy Hx of tonsillectomy Hx of hysterectomy Social History Social History Household Members: Family and None Housing: House Are you a primary care management associate to a significant other at home: No Do you presently have visiting nurse or other home services: No Alcohol intake: former Patient Tobacco Use Status: Never used Tobacco e-Cigarette/Vaping Use: Never Used Second Hand Smoke Exposure: No Advance Directives: No Advance Directives Information Provided: Yes Advance Directives Date on File: 08/04/22 service: No Current occupational status: retired Cognitive needs: Yes (walker) Hearing needs: Yes (hearing aide) Vision needs: Yes (glasses) Meds Allergies Allergy/AdvReac Type Severity Reaction Status Date / Time duloxetine Allergy Severe LOOPY Verified 04/30/23 09:02 codeine [CODEINE] Allergy Intermediate GI UPSET Verified 04/30/23 09:02 doxycycline [DOXYCYCLINE] Allergy Intermediate RASH Verified 04/30/23 09:02 Sulfa (Sulfonamide Allergy Intermediate Hives Verified 04/30/23 09:02 Antibiotics) [SULFA (SULFONAMIDE ANTIBIOTICS)] Home Medications Medication Instructions Recorded Confirmed Last Taken Type aspirin 81 mg tablet,delayed 81 mg PO DAILY 08/26/20 04/30/23 Unknown History release gabapentin 600 mg tablet 600 mg PO TID 2 at night 09/20/22 04/30/23 Unknown History insulin lispro 100 unit/mL 1 sliding scale dose subcut 09/20/22 04/30/23 Unknown History subcutaneous half-unit pen USEASDIRECTD (Humalog Kervin KwikPen (U-100)) lamotrigine 25 mg tablet 50 mg PO BID 02/13/23 04/30/23 Unknown History cholecalciferol (vitamin D3) 50 4,000 unit PO DAILY 03/05/23 04/30/23 Unknown History mcg (2,000 unit) capsule (Vitamin D3) zoledronic acid 5 mg/100 mL in ea IV 03/21/23 04/30/23 Unknown History mannitol 5 %-water intravenous piggybck (Reclast) sumatriptan succinate 50 mg tablet 50 mg PO DAILY PRN 04/18/23 04/30/23 Unknown History Exam Airway Mallampati Class: II TM Dist: >3cm Neck ROM: Limited Heart: pacer Lungs: cta Assessment and Plan Assessment Anesthesia Assessment: Anesthesia Plan Discussed Final Anesthetic Review Family History of Problems with Anesthesia: No NPO: Yes ASA Class: III Final Preanesthetic Review: No Changes in Pt Med Stat, Meds/Allgs Chart Reviewed, Consent Obtained/Reviewed and Anes Risks/Benef Reviewed Patient Risk: Intermediate Procedure Risk: Low Anesthetic Plan Anesthetic Plan: MAC: Disposition: Standard PACU
[2023-06-05 13:33] LABS: Glucose, Whole Blood 93 mg/dL (60-115)
--- NOTE | 2023-06-05 13:42 | P.HPSUR_ITS ---
Pre-Procedural Eval Section A Date of Service: 06/05/23 The patient is an INPATIENT: No The History & Physical has been completed within 30 days and I have reviewed it.: No Section B Chief Complaint: Dysphagia, unspecified Relevant Family History (Specify if Yes): No Relevant Social History: None Present Medications: see Short Stay Collaborative assessment Medical History: Significant History (Pacemaker TIA (transient ischemic attack) Rheumatoid arthritis Dysphagia Spinal stenosis COVID COVID-19 Laryngopharyngeal reflux (LPR) Asthma Rotator cuff tendinitis Post-menopausal Polyarthralgia Dyspnea on exertion Allergic rhinitis Bronchitis Asthma exacerbation Cough variant asthma DJD (degenera) History of Previous Operations: Relevant previous surgery/procedure and date(s) (S/P placement of cardiac pacemaker History of esophagogastroduodenoscopy (EGD) History of colonoscopy Hx of cholecystectomy Hx of tonsillectomy Hx of hys terectomy) Allergies: Allergies Allergy/AdvReac Type Severity Reaction Status Date / Time duloxetine Allergy Severe LOOPY Verified 04/30/23 09:02 codeine [CODEINE] Allergy Intermediate GI UPSET Verified 04/30/23 09:02 doxycycline [DOXYCYCLINE] Allergy Intermediate RASH Verified 04/30/23 09:02 Sulfa (Sulfonamide Allergy Intermediate Hives Verified 04/30/23 09:02 Antibiotics) [SULFA (SULFONAMIDE ANTIBIOTICS)] Review of Systems Sugical H&P ROS: Negative: Constitution, Cardiovascular and Respiratory and Yes, Specify: Gastrointestinal (dysphagia) Exam Surgical H&P Exam: Normal: Heart, Normal: Lungs, Normal: Extremities and Normal: Abdomen Plan Diagnosis/Plan: Unchanged I have reviewed the history and physical and performed a pertinent physical examination on my patient. No changes have occurred unless specified. Time Spent With Patient Time: Total time managing care of this patient today ____ minutes.
[2023-06-05 13:51] VITALS: BP 129/70; PULSE 74; RESP 18; TEMP 36.7; O2SAT 100
[2023-06-05] MEDS: Lactated Ringers 1,000 ML 50 ML IVCONT (13:57)
--- NOTE | 2023-06-05 14:40 | P.OP_ITS ---
Operative Note Operative Note Date of Service: 06/05/23 Narrative: FLEXIBLE TRANSORAL UPPER GASTROINTESTINAL ENDOSCOPY WITH ESOPHAGEAL BALLOON DILATION Pre-op diagnosis: Dysphagia Post-op diagnosis: Same Endoscopist:? Kameron Melendez MD Anesthesia:?MAC Consent: Indications for the procedure and potential complications of bleeding, perforation, reaction to medications and missed diagnosis were discussed with the patient and informed consent was obtained. Instrument: Olympus GIF H 190 mid size upper endoscope Monitoring: Vital signs and clinical assessment, continuous EKG monitoring, Pulse oximetry, Carbon Dioxide monitoring and blood pressure monitoring were done throughout the procedure. Procedure: The patient was placed in the left lateral decubitis position and pre-procedure medications were administered and a bite block was placed. The endoscope was inserted into the mouth and advanced under direct vision to the third part of duodenum. A careful inspection was made as the upper endoscope was withdrawn including a retroflexed examination of the proximal stomach; Findings and interventions are described below. Findings: Larynx: Normal Esophagus: Tortuous esophagus with increased tertiary contractions without stricture or ring, esophagitis or Livingston's. GE junction at 36 cms. Empiric esophageal balloon dilation was performed with a 20 mm (60 F) CRE balloon x 60 seconds Stomach: Mild gastric erythema. Biopsies obtained on past EGD were negative for H Pylori. Grade 2 flap valve on retroflexed examination of the cardia. Duodenum: Normal bulb and descending duodenum Intervention: Esophageal balloon dilation as noted above Impression and Post Procedure Diagnosis: Endoscopy Findings: ESOPHAGUS: Tortuous esophagus with increased tertiary contractions without s tricture or ring, esophagitis or Livingston's - empiric esophageal balloon dilation was performed to 20 mm (60 F) PLAN Patient has an appointment on 07/20/23 in the GI Clinic with Tracey Goodwin NP. Above findings were reviewed with the patient.
[2023-06-05 15:08] VITALS: BP 112/46; PULSE 70; RESP 16; TEMP 36.3; O2SAT 98
[2023-06-05 15:23] VITALS: BP 121/48; PULSE 71; RESP 16; O2SAT 98
[2023-06-05 15:38] VITALS: BP 114/44; PULSE 71; RESP 16; O2SAT 98
[2023-06-05 15:53] VITALS: BP 122/51; PULSE 60; RESP 16; TEMP 36.3; O2SAT 99
== END 2023-06-05 16:20 | disposition home or self-care (01) ==
PROVIDERS: PCP Internal Medicine; Visit Provider Internal Medicine Gastroenterology
PROC: 0DJ08ZZ Inspection of Upper Intestinal Tract, Via Natural or Artificial Opening Endoscopic (ICD-10-PCS; CPT 43235; principal; 2023-06-05 15:00)
DX: K29.60 Other gastritis without bleeding (principal); K22.2 Esophageal obstruction; K22.4 Dyskinesia of esophagus; R13.10 Dysphagia, unspecified; K21.9 Gastro-esophageal reflux disease without esophagitis; K91.5 Postcholecystectomy syndrome; E11.9 Type 2 diabetes 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s; E78.00 Pure hypercholesterolemia, unspecified; D64.9 Anemia, unspecified; K58.0 Irritable bowel syndrome with diarrhea; J45.909 Unspecified asthma, uncomplicated; N32.81 Overactive bladder; E66.9 Obesity, unspecified; Z68.32 Body mass index [BMI] 32.0-32.9, adult; Z86.73 Personal history of transient ischemic attack (TIA), and cerebral infarction without residual deficits; Z95.0 Presence of cardiac pacemaker; Z90.49 Acquired absence of other specified parts of digestive tract; Z90.710 Acquired absence of both cervix and uterus; Z79.4 Long term (current) use of insulin
CPT/HCPCS: 43249; 82947; C1726; J2704

== ENCOUNTER → 2023-06-05 12:54 | Outpatient (BNV) | payer MEDICARE, SELFPAY | PROVIDERS: PCP Internal Medicine; Visit Provider Internal Medicine Gastroenterology | DX: R13.10 Dysphagia, unspecified (principal) | CPT/HCPCS: 43249 ==

== ENCOUNTER 2023-07-12 09:09 | Outpatient (REF) | payer MEDICARE, SELFPAY ==
[2023-07-12 09:41] LABS: MANUAL DIFF FLAG NO
[2023-07-12 10:39] LABS: Basophils Absolute Auto 0.1 X10*3/uL (0.0-0.2); Basophils Percent Auto 1.1 % (0-2); Eosinophils Absolute Auto 0.4 X10*3/uL (0.0-0.4); Eosinophils Percent Auto 4.8 % (0-4); Hematocrit 33.8 % (37.0-47.0); Hemoglobin 11.7 g/dl (12.0-16.0); Imm Gran Abs Auto 0.03 X10*3/uL (0.00-0.03); Imm Gran Pct Auto 0.4 % (0.0-0.4); Lymphocytes Absolute Auto 1.7 X10*3/uL (1.2-4.9); Mean Corpuscular HGB Conc 34.6 g/dl (31.0-35.0); Mean Corpuscular Hemoglobin 33.1 pg (27.0-33.0); Mean Corpuscular Volume 95.5 fL (80.0-98.0); Mean Platelet Volume 10.9 fL (9.4-12.3); Monocytes Absolute Auto 0.3 X10*3/uL (0.1-1.2); Monocytes Percent Auto 4.1 % (2-11); Neutrophils Absolute Auto 5.8 x10*3/uL (2.0-8.3); Neutrophils Percent Auto 69.6 % (45-73); Platelet Count 249 X10*3/uL (160-400); Red Blood Count 3.54 X10*6/uL (4.20-5.50); White Blood Count 8.3 X10*3/uL (4.8-10.8)
[2023-07-12 11:22] LABS: Alanine Aminotransferase 32 U/L (0-31); Aspartate Amino Transferase 26 U/L (5-31); C Reactive Protein 0.25 mg/dL (< or = 0.50); Estimated Glomerular Filt Rate 32
[2023-07-12 11:52] LABS: Erythrocyte Sedimentation Rate 12 MM/HR (0-20)
== END 2023-07-12 09:10 | disposition home or self-care (01) ==
LOC: HO.LAB 09:09
PROVIDERS: PCP Internal Medicine; Visit Provider Internal Medicine Rheumatology
DX: M06.9 Rheumatoid arthritis, unspecified (principal); Z79.899 Other long term (current) drug therapy
CPT/HCPCS: 36415; 82565; 84450; 84460; 85025; 85652; 86140

== ENCOUNTER 2023-07-17 09:29 | Outpatient (AMB) | payer MEDICARE, SELFPAY ==
--- NOTE | 2023-07-17 09:40 | A.OFFVIS_ITS ---
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 Required: No Allergies duloxetine Allergy (Severe, Verified 04/30/23 09:02) LOOPY codeine [CODEINE] Allergy (Intermediate, Verified 04/30/23 09:02) GI UPSET doxycycline [DOXYCYCLINE] Allergy (Intermediate, Verified 04/30/23 09:02) RASH Sulfa (Sulfonamide Antibiotics) [SULFA (SULFONAMIDE ANTIBIOTICS)] Allergy (Intermediate, Verified 04/30/23 09:02) Hives Medication List - Last Reconciled 07/17/23 by Jose Perez MD albuterol sulfate 90 mcg/actuation (ProAir HFA) 2 puffs inhalation Q4-6H PRN 30 days aspirin 81 mg PO DAILY atorvastatin 20 mg PO DAILY betamethasone valerate 0.1% 1 appl topical BID PRN blood sugar diagnostic ([employer]Touch Ultra Test strips) As directed 3x daily cholecalciferol (vitamin D3) (Vitamin D3) 4,000 units PO DAILY famotidine 40 mg PO BID ferrous sulfate 325 mg PO DAILY fluticasone propionate 50 mcg/actuation 2 sprays intranasal DAILY folic acid 1 mg PO DAILY furosemide 20 mg PO DAILY gabapentin 600 mg PO TID hydroxychloroquine 200 mg PO BID insulin glargine (Lantus Solostar U-100 Insulin) 70 units (0.7 mL) subcut BEDTIME 30 days insulin lispro (Humalog Kervin KwikPen (U-100)) 1 sliding scale dose subcut USEASDIRECTD insulin syringe-needle U-100 As directed ketoconazole 2% 1 appl topical BID lamotrigine 50 mg PO BID lidocaine 5% 1 patch topical DAILY lisinopril-hydrochlorothiazide 10-12.5 mg 1 tab PO DAILY 90 days loperamide 2 mg PO TID methotrexate sodium 15 mg (6 x 2.5 mg) PO QWEEK metronidazole 1% 1 appl topical DAILY oxybutynin chloride ER 10 mg PO DAILY pen needle, diabetic (BD [place] 2nd Gen Pen Needle) As directed krish As directed zoledronic ogxo-quevnzxv-qartf 5 mg/100 mL (Reclast) ea IV HPI HPI Comments History of Present Illness0 Details Kriss comes for follow-up. She has been doing well from cardiac perspective. She is balance issues and does not go for long walks. She uses a walker when she goes for long walks. No fall issues. Denies any exertional chest pain or shortness of breath. Denies orthopnea, PND, leg edema. No prolonged palpitation irregular heartbeat. No lightheadedness, syncope. Takes all her medications. [facility] Medical History Pacemaker TIA (transient ischemic attack) Rheumatoid arthritis Dysphagia Spinal stenosis COVID COVID-19 Laryngopharyngeal reflux (LPR) Asthma Rotator cuff tendinitis Post-menopausal Polyarthralgia Dyspnea on exertion Allergic rhinitis Bronchitis Asthma exacerbation Cough variant asthma DJD (degenerative joint disease) Decreased hearing GERD (gastroesophageal reflux disease) Type 2 diabetes 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s Surgical History S/P placement of cardiac pacemaker History of esophagogastroduodenoscopy (EGD) History of colonoscopy Hx of cholecystectomy Hx of tonsillectomy Hx of hysterectomy Family History Father CVD (cardiovascular disease) Diabetes Mother Diabetes Sister No problems noted. Other Substance use disorder Social History Household Members: Family and None Housing: House Are you a primary home care consultant to a significant other at home: No Do you presently have visiting nurse or other home services: No Alcohol intake: former Comment: WITHIN LAST MONTH Patient Tobacco Use Status: Never used Tobacco e-Cigarette/Vaping Use: Never Used Second Hand Smoke Exposure: No Advance Directives Date on File: 08/04/22 service: No Current occupational status: retired Cognitive needs: Yes (walker) Hearing needs: Yes (hearing aide) Vision needs: Yes (glasses) Review of Systems Const Denies chills, Denies fatigue, Denies fever(s), Denies frequent falls, Denies weakness, Denies weight gain and Denies weight loss ENT Denies dizziness Card Denies chest pain, Denies leg edema, Denies lightheadedness, Denies palpitations, Denies dyspnea, Denies dyspnea on exertion, Denies orthopnea and Denies other (loss of consciousness) Resp Denies cough, Denies dyspnea and Denies dyspnea on exertion GI Denies hematochezia and Denies change in stool character Musc Denies abnormal gait, Denies muscle weakness, Denies numbness, Denies radiating pain into limb and Denies tingling Neuro Denies Abnormal speech present, Denies abnormal gait, Denies dizziness, Denies frequent falls, Denies numbness, Denies tingling and Denies weakness Endo Denies fatigue and Denies palpitations Physical Exam Vital Signs: Last Vital Signs Pulse 80 07/17/23 09:41 BP 116/74 07/17/23 09:41 BMI result Body Mass Index 32.7 Const General: cooperative, comfortable, no acute distress, alert, awake and well groomed Nutritional Appearance: overweight Orientation/consciousness: patient oriented x3 Limitations: ambulation with walker Neck Neck: Yes trachea midline, Yes supple and Yes no JVD Resp Effort & Inspection: normal respiratory effort Auscultation: clear to auscultation bilaterally Cardio Jugular venous distension: no JVD Palpation: normal PMI Rate: regular rate Rhythm: regular rhythm Heart sounds: S1 normal heart sound present, S2 normal heart sound present, no click, no gallops, no murmurs and no rubs Bruits: no carotid bruits Neuro General: patient oriented x3 and no focal motor deficits Speech: No Abnormal speech present Extrem General: Yes no clubbing, cyanosis or edema Office Procedures Cardiac Device Check Cardiac Device Check Details: Dual-chamber [place] pacemaker in place. Programmed in DDDR at 60 beats per minute. Atrial pacing 13% time. Ventricularly pacer dependent. Atrial pacing thresholds adequate and in our capture mode. Ventricular pacing thresholds are stable. Atrial and ventricular sensing is adequate. No arrhythmias detected. Battery life is excellent 32336-CA Cardiac Device Check, pacemaker dual lead Procedure code (CPT) selection complete Assessment & Plan Assessment & Plan (1) Complete heart block: Comment: pacemaker implanted 07/2022 Code(s): I44.2 - Atrioventricular block, complete Plan: Complete heart block with improved symptoms status post dual-chamber pacemaker placement. Doing well from that perspective. No signs or symptoms of heart failure. Encouraged to continue to participate in physical activity as tolerated. Will follow-up pacemaker remotely every 3 months in the clinic in 6 months. Continue aggressive control of diabetes goal hemoglobin A1c less than 7%. Advised to participate in walking as much as possible. Follow up in the clinic in 6 months time after an echocardiogram. Thank you for allowing me to partake in the care Coding Level of Care Code Est Pt Level 4 (75115) Diagnoses Complete heart block I44.2 CPT Codes Cardiac Device Check - Cardiac Device 2: 28657-OZ Cardiac Device Check, pacemaker dual lead ([id number])
[2023-07-17 09:41] VITALS: BP 116/74; PULSE 80; BMI 32.7
== END 2023-07-17 10:11 | disposition home or self-care (01) ==
PROVIDERS: PCP Internal Medicine; Visit Provider Internal Medicine Cardiovascular Disease
DX: I44.2 Atrioventricular block, complete (principal); Z95.0 Presence of cardiac pacemaker
CPT/HCPCS: 93280; 99213

== ENCOUNTER → 2023-07-17 09:29 | Outpatient (BNVA) | payer MEDICARE, SELFPAY | PROVIDERS: PCP Internal Medicine; Visit Provider Internal Medicine Cardiovascular Disease | DX: I44.2 Atrioventricular block, complete (principal); Z45.018 Encounter for adjustment and management of other part of cardiac pacemaker | CPT/HCPCS: 93280; 99212 ==

== ENCOUNTER 2023-07-19 10:30 | Outpatient (AMB) | payer MEDICARE, SELFPAY ==
--- NOTE | 2023-07-19 11:11 | A.OFFPC_ITS ---
Vital Signs 07/19/23 11:15 Height 4 ft 10 in Weight 159 lb 2 oz BMI 33.3 BP 116/68 Blood Pressure Location Lt brachial Position Sitting Pulse 79 Pulse Source Pulse Oximeter Pulse Oximetry (%) 90 L Oxygen Delivery Method Room Air Intake Visit Reasons: 3 month f/u Intake Note: Patient is here to follow up on DM, IBS,Hypercholesterolemia,Asthma. 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 Correctional Treatment Specialist: Not Required per policy Accompanied by: Self / Same As Patient Allergies duloxetine Allergy (Severe, Verified 07/20/23 14:23) LOOPY codeine [CODEINE] Allergy (Intermediate, Verified 07/20/23 14:23) GI UPSET doxycycline [DOXYCYCLINE] Allergy (Intermediate, Verified 07/20/23 14:23) RASH Sulfa (Sulfonamide Antibiotics) [SULFA (SULFONAMIDE ANTIBIOTICS)] Allergy (Intermediate, Verified 07/20/23 14:23) Hives Medication List - Last Reconciled 07/20/23 by Angel Pablo MD albuterol sulfate 90 mcg/actuation (ProAir HFA) 2 puffs inhalation Q4-6H PRN 30 days ammonium lactate 12% appl topical BID aspirin 81 mg PO DAILY atorvastatin 20 mg PO DAILY betamethasone valerate 0.1% 1 appl topical BID PRN blood sugar diagnostic ([email or web address] Ultra Test strips) As directed 3x daily cholecalciferol (vitamin D3) (Vitamin D3) 4,000 units PO DAILY famotidine 40 mg PO BID ferrous sulfate 325 mg PO DAILY fluticasone propionate 50 mcg/actuation 2 sprays intranasal DAILY folic acid 1 mg PO DAILY furosemide 20 mg PO DAILY gabapentin 600 mg PO TID hydroxychloroquine 200 mg PO BID insulin glargine (Lantus Solostar U-100 Insulin) 70 units (0.7 mL) subcut BEDTIME 30 days insulin lispro (Humalog Kervin KwikPen (U-100)) 1 sliding scale dose subcut U SEASDIRECTD insulin syringe-needle U-100 As directed ketoconazole 2% 1 appl topical BID lamotrigine 50 mg PO BID lidocaine 5% 1 patch topical DAILY lisinopril-hydrochlorothiazide 10-12.5 mg 1 tab PO DAILY 90 days loperamide 2 mg PO TID methotrexate sodium 15 mg (6 x 2.5 mg) PO QWEEK metronidazole 1% 1 appl topical DAILY oxybutynin chloride ER 10 mg PO DAILY pen needle, diabetic (BD [place] 2nd Gen Pen Needle) As directed walker As directed zoledronic hztt-uaaxmjox-xeril 5 mg/100 mL (Reclast) ea IV Tobacco use date assessed: 07/19/23 Fall risk assessment: No Falls in past year Last assessed Fall Risk: 07/19/23 Dental Screening Dental Screen Date: 07/19/23 Did you have a dental visit in the last 12 months?: Yes Did you have a dental problem in the last 6 months where you did not have access to dental care?: No Was dental information given to patient?: Patient has dentist HPI 3 month f/u HPI Details 72-year-old female presents to the offic e to discuss her chronic medical conditions. Bladder incontinence is well controlled on the oxybutynin. Patient was having diarrhea with 1 of her chronic medications and is now on Imodium on a daily basis. She seeing the cloth packer for the same. Recently she had her esophagus dilated. Despite her chronic illnesses, patient is able to do her activities of daily living. [facility], [facility] Medical History intermediate use of drug Osteoarthritis of hands, bilateral Irritable bowel syndrome with diarrhea Rheumatoid arthritis Pacemaker TIA (transient ischemic attack) Dysphagia Spinal stenosis COVID COVID-19 Laryngopharyngeal reflux (LPR) Asthma Rotator cuff tendinitis Post-menopausal Polyarthralgia Dyspnea on exertion Allergic rhinitis Bronchitis Asthma exacerbation Cough variant asthma DJD (degenerative joint disease) Decreased hearing GERD (gastroesophageal reflux disease) Type 2 diabetes 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s Surgical History S/P placement of cardiac pacemaker History of esophagogastroduodenoscopy (EGD) History of colonoscopy Hx of cholecystectomy Hx of tonsillectomy Hx of hysterectomy Family History Father CVD (cardiovascular disease) Diabetes Mother Diabetes Sister No problems noted. Other Substance use disorder Social History Household Members: Family and None Housing: House Are you a primary livestock caretaker to a significant other at home: No Do you presently have visiting nurse or other home services: No Alcohol intake: former Comment: WITHIN LAST MONTH Patient Tobacco Use Status: Never used Tobacco e-Cigarette/Vaping Use: Never Used Second Hand Smoke Exposure: No Advance Directives Date on File: 08/04/22 service: No Current occupational status: retired Cognitive needs: Yes (walker) Hearing needs: Yes (hearing aide) Vision needs: Yes (glasses) Questionnaire PHQ-9 Over the last 2 weeks, how often have you been bothered by any of the following problems? 1. Little interest or pleasure in doing things: not at all 2. Feeling down, depressed, or hopeless: not at all 3. Trouble falling or staying asleep, or sleeping too much: not at all 4. Feeling tired or having little energy: not at all 5. Poor appetite or overeating: not at all 6. Feeling bad about yourself - or that you are a failure or have let yourself or your family down: not at all 7. Trouble concentrating on things, such as reading the newspaper or watching television: not at all 8. Moving or speaking so slowly that other people could have noticed. Or the opposite - being so fidgety or restless that you have been moving around a lot more than usual: not at all 9. Thoughts that you would be better off or of hurting yourself in some w ay: not at all Total score: 0 Depression Screening Interpretation: Negative Depression Screening Done: Yes Source: Developed by Drs. Jonathan Sandoval, Dodie Tejada, Alberto Elizondo and colleagues, with an educational mark from [employer]. Thrive Questionnaire Date Thrive assessed: 07/19/23 I am a: Patient What is your living situation today?: I have a steady place to live Within the past 12 months, did the food you bought not last and you didn't have the money to get more?: Never true Within the past 12 months, did you worry whether your food would run out before you got money to buy more?: Never true Do you have trouble paying for medicines?: No Do you have trouble getting transportation to medical appointments?: No Do you have trouble paying your heating and electricity bill?: No Do you have trouble taking care of your child, family member or friend?: No Do you have trouble with day-to-day activities such as bathing, preparing meals, shopping, managing finances, etc.?: No Are you currently unemployed and looking for a job?: No Are you interested in more education?: No Currently or been in a relationship where the following occur: no concerns reported THRIVE Score: 0 AUDIT C Alcohol Use Questionnaire (AUDIT-C) 1. How often do you have a drink containing alcohol?: Never Total Score: 0 BRITTNEY-7 AMB Questionnaire BRITTNEY-7 Date BRITTNEY - 7 assessed: 07/19/23 Feeling nervous, anxious, or on edge: 0 = Not at all Not being able to stop or control worryin = Not at all Worrying too much about different things: 0 = Not at all Trouble relaxin = Not at all Being so restless that it is hard to sit still: 0 = Not at all Becoming easily annoyed or irritable: 0 = Not at all Feeling afraid as if something awful might happen: 0 = Not at all Total BRITTNEY-7 score (0-4 normal; 5-9 mild; 10-14 moderate; 15-21 severe): 0 Source: Developed by Drs. Jonathan Sandoval, Dodie Tejada, Alberto Elizondo and colleagues, with an educational mark from [employer]. Physical exam (Primary Care) Vital Signs: Last Vital Signs Pulse 79 07/19/23 11:15 BP 116/68 07/19/23 11:15 Pulse Ox 90 L 07/19/23 11:15 Oxygen Delivery Method Room Air 07/19/23 11:15 Care Plan Goal for BP management: BP in range. BMI result Body Mass Index 33.3 Tobacco/Smoking Status: Tobacco use Status Tobacco use date assessed 07/19/23 07/19/23 11:21 Patient Tobacco Use Status Never used Tobacco 07/19/23 11:11 e-Cigarette/Vaping Use Never Used 07/19/23 11:11 PHQ-9: PHQ-9 Score PHQ-9: Total score 0 07/19/23 11:28 Depression Screening Interpretation: Negative Thrive Assessment: Date of Thrive Assessment Date Thrive assessed 07/19/23 07/19/23 11:21 Currently or been in a relationship where the following occur: no concerns reported Const General: cooperative and healthy appearing Nutritional Appearance: well nourished Orientation/consciousness: patient oriented x3 Limitations: no limitations HENMT Head: Yes normal to inspection Eyes General: appearance normal, both eyes and all related structures Neck Neck: Yes normal visual inspection Chest Chest palpation & inspection: normal palpation of entire chest wall Resp Effort & Inspection: normal respiratory effort Neuro General: patient oriented x3 Results AMB Hemoglobin A1c AMB Hemoglobin A1c 5.5 % Last Edit by GIANA Dailey on 07/19/23 11:29 Results Reviewed Results Reviewed: Laboratory Last Values Hgb A1c (Clinic) 5.5 % (4.0-6.0) 07/19/23 11:10 Assessment and Plan Assessment & Plan (1) Rheumatoid arthritis: Comment: Subcutaneous methotrexate: start date unknown? Around 2019 or 2019-January 2022 Plaquenil: Start date unknown ? Around 2019 or 2019 Oral methotrexate- January 2022 to present Code(s): M06.9 - Rheumatoid arthritis, unspecified Qualifiers: Rheumatoid arthritis location: multiple sites Rheumatoid factor presence: without rheumatoid factor Qualified Code(s): M06.09 - Rheumatoid arthritis without rheumatoid factor, multiple sites Plan: Continue current medications. (2) Type 2 diabetes 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s: Code(s): E11.9 - Type 2 diabetes 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s Qualifiers: Diabetes mellitus buttermaker continuous churn insulin use: with buttermaker continuous churn use Qualified Code(s): E11.9 - Type 2 diabetes 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s; Z79.4 - intermediate (current) use of insulin Plan: Continue current medications. Orders: Orders AMB Hemoglobin A1c 07/19/23 E11.9 - Type 2 diabetes 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s Coding Level of Care Code Est Pt Level 3 (26536) Diagnoses Rheumatoid arthritis of multiple sites with negative rheumatoid factor M06.09 Rheumatoid arthritis location: multiple sites Rheumatoid factor presence: without rheumatoid factor Type 2 diabetes 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, with long-term current use of insulin E11.9; Z79.4 Diabetes mellitus buttermaker continuous churn insulin use: with jail use
[2023-07-19 11:15] VITALS: BP 116/68; PULSE 79; O2SAT 90; BMI 33.3
== END 2023-07-19 11:59 | disposition home or self-care (01) ==
PROVIDERS: PCP Internal Medicine; Visit Provider Internal Medicine
DX: M06.09 Rheumatoid arthritis without rheumatoid factor, multiple sites (principal); E11.9 Type 2 diabetes 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s; Z79.4 Long term (current) use of insulin
CPT/HCPCS: 83036; 99213

== ENCOUNTER 2023-07-20 14:08 | Outpatient (AMB) | payer MEDICARE, SELFPAY ==
[2023-07-20 14:10] VITALS: BP 109/52; PULSE 86; BMI 33.6
--- NOTE | 2023-07-20 14:10 | MHC.OFFVIS ---
Intake Vital Signs 07/20/23 14:10 Height 4 ft 10 in Weight 160 lb 14.999 oz BMI 33.6 BP 109/52 L Blood Pressure Location Rt brachial Position Sitting Pulse 86 Intake Visit Reasons: s/p EGD Intake Note: Kriss presents in the office today in post op follow up of EGD. CC: Patient reports doing better. She underwent EGD on 06/05/[address] Melendez. Director Volunteer Services Required: No Accompanied by: Self / Same As Patient Allergies duloxetine Allergy (Severe, Verified 07/20/23 14:23) LOOPY codeine [CODEINE] Allergy (Intermediate, Verified 07/20/23 14:23) GI UPSET doxycycline [DOXYCYCLINE] Allergy (Intermediate, Verified 07/20/23 14:23) RASH Sulfa (Sulfonamide Antibiotics) [SULFA (SULFONAMIDE ANTIBIOTICS)] Allergy (Intermediate, Verified 07/20/23 14:23) Hives HPI s/p EGD HPI Details Assessment & Plan (1) Irritable bowel syndrome with diarrhea: Code(s): K58.0 - Irritable bowel syndrome with diarrhea Plan: (2) GERD (gastroesophageal reflux disease): Code(s): K21.9 - Gastro-esophageal reflux disease without esophagitis Qualifiers: Esophagitis presence: without esophagitis Qualified Code(s): K21.9 - Gastro-esophageal reflux disease without esophagitis (3) Overactive bladder: Code(s): N32.81 - Overactive bladder (4) Dysphagia: Code(s): R13.10 - Dysphagia, unspecified Plan Diarrhea is controlled on 1 loperimide a day - but she is advised she can take more. Now having appetite problems, no taste since COVID 2 years ago, but also dysphagia is back. Seeing ENT and they have ordered (another) barium swallow. She had a mod in 09/2021. BUT had some improvement with past EGD and dilation so will order another. She continues on famotidine for her GERD. She is complaining of early satiety, she is IDDM so will get GES. ROV 3 mos. Gastric emptying study 05/10/23 IMPRESSION: Normal 4-hour solid food gastric emptying study. EGD 06/05/23? Findings: Larynx: Normal Esophagus: Tortuous esophagus with increased tertiary contractions without stricture or ring, esophagitis or Livingston's. GE junction at 36 cms. Empiric esophageal balloon dilation was performed with a 20 mm (60 F) CRE balloon x 60 seconds Stomach: Mild gastric erythema. Biopsies obtained on past EGD were negative for H Pylori. Grade 2 flap valve on retroflexed examination of the cardia. Duodenum: Normal bulb and descending duodenum Intervention: Esophageal balloon dilation as noted above Impression and Post Procedure Diagnosis: Endoscopy Findings: ESOPHAGUS: Tortuous esophagus with increased tertiary contractions without stricture or ring, esophagitis or Livingston's - empiric esophageal balloon dilation was performed to 20 mm (60 F) Orders: Orders EGD with [facility] - G I Use Only 04/18/23 R13.10 - Dysphagia , unspecified NM gastric emptyin g study 04/18/23 R68.81 - Early sat iety Medications: Refilled oxybutynin chlorid e ER 10 mg PO DAILY 30 tabs 6RF N32.81 - Overactiv e bladder Discontinued alosetron Disco ntinued Reason: I nsurance Denied 0.5 mg PO BID 60 tabs 3RF K91.5 - Postcholec ystectomy syndrome sucralfate Disc ontinued Reason: Doctor's Order 2 grams (2 x 1 gra m) PO DAILY 20 tab s 0RF K91.5 - Postcholec ystectomy syndrome GASTRIC EMPTYING STUDY 05/10/23 IMPRESSION: Normal 4-hour solid food gastric emptying study. EGD Findings: Larynx: Normal Esophagus: Tortuous esophagus with increased tertiary contractions without stricture or ring, esophagitis or Livingston's. GE junction at 36 cms. Empiric esophageal balloon dilation was performed with a 20 mm (60 F) CRE balloon x 60 seconds Stomach: Mild gastric erythema. Biopsies obtained on past EGD were negative for H Pylori. Grade 2 flap valve on retroflexed examination of the cardia. Duodenum: Normal bulb and descending duodenum Intervention: Esophageal balloon dilation as noted above Impression and Post Procedure Diagnosis: Endoscopy Findings: ESOPHAGUS: Tortuous esophagus with increased tertiary contractions without stricture or ring, esophagitis or Livingston's - empiric esophageal balloon dilation was performed to 20 mm (60 F) TODAY'S VISIT She still will have occasional troubles if she drinks water too quickly or randomly, but overall her swallowing is improved. She tolerated the procedure and the dilation well. She still has episodes of hoarse voice with variable levels, that she does not clearly connect to her GERD. She has not seen an ENT about this. She seed Dr. Tabares, so I encourage her to speak to this provider about this as this is an ENT. She continues on her loperamide for her diarrhea, and her famotidine for her GERD. SHe has some trouble with her appetite as gerardo is getting older, she does not like meat, can only eat hard boiled eggs, likes pork fried rice, peanut butter and CHIPS. She says I have been a Godsend to her, as I have helped her with her GI problems, and with her OAB with the oxybutinin. rov 6 MOS. PFSH Medical History shelter use of drug Osteoarthritis of hands, bilateral Irritable bowel syndrome with diarrhea Rheumatoid arthritis Pacemaker TIA (transient ischemic attack) Dysphagia Spinal stenosis COVID COVID-19 Laryngopharyngeal reflux (LPR) Asthma Rotator cuff tendinitis Post-menopausal Polyarthralgia Dyspnea on exertion Allergic rhinitis Bronchitis Asthma exacerbation Cough variant asthma DJD (degenerative joint disease) Decreased hearing GERD (gastroesophageal reflux disease) Type 2 diabetes 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s Surgical History S/P placement of cardiac pacemaker History of esophagogastroduodenoscopy (EGD) History of colonoscopy Hx of cholecystectomy Hx of tonsillectomy Hx of hysterectomy Family History Father CVD (cardiovascular disease) Diabetes Mother Diabetes Sister No problems noted. Other Substance use disorder Social History Household Members: Family and None Housing: House Are you a primary animal care service worker to a significant other at home: No Do you presently have visiting nurse or other home services: No Alcohol intake: former Comment: WITHIN LAST MONTH Patient Tobacco Use Status: Never used Tobacco e-Cigarette/Vaping Use: Never Used Second Hand Smoke Exposure: No Advance Directives Date on File: 08/04/22 service: No Current occupational status: retired Cognitive needs: Yes (walker) Hearing needs: Yes (hearing aide) Vision needs: Yes (glasses) Review of Systems Const Denies fatigue, Denies fever(s), Denies night sweats, Denies poor appetite and Denies weight loss ENT Reports Normal hearing present, Denies dental pain, Reports dysphagia, Denies hearing loss, Denies mouth pain, Denies odynophagia, Denies throat swelling, Denies tongue swelling and Reports other (Dentition adequate) Card Reports no additional complaints Resp Reports no additional complaints GI Details: Denies abdominal pain, Denies melena, Denies bloating, Denies hematochezia, Denies constipation, Denies GI cramping, Reports dysphagia, Denies excessive flatus, Denies early satiety, Reports heartburn, Denies diarrhea, Denies nausea, Denies odynophagia, Denies vomiting and Denies hematemesis Skin/Breast Denies pruritus, Denies lesions, Denies rash and Denies jaundice Neuro Reports Normal hearing present and Denies Abnormal speech present Endo Denies fatigue Aller/Immun Denies throat swelling and Denies tongue swelling Physical Exam Vital Signs: Last Vital Signs Pulse 86 07/20/23 14:10 BP 109/52 L 07/20/23 14:10 BMI result Body Mass Index 33.6 Const General: cooperative, no acute distress, well developed and well groomed Nutritional Appearance: well nourished and overweight Orientation/consciousness: oriented to person, oriented to place and oriented to time Limitations: No language barrier and ambulation with walker HEENT Head: Yes normocephalic and Yes atraumatic Eyes General: appearance normal, both eyes and all related structures Pupils: Equal, round and reactive pupils present Neck Neck: Yes normal visual inspection and Yes no lymphadenopathy Thyroid: Thyroid normal Resp Effort & Inspection: normal respiratory effort and able to speak in complete sentences Auscultation: clear to auscultation bilaterally Cardio Rate: regular rate Rhythm: regular rhythm Heart sounds: Normal, physiologic split S2 sound present Peripheral pulses: radial pulses present and posterior tibial pulses present GI Inspection: No distended, No Abdominal panniculus present and Yes obesity Palpation (GI): Soft to palpation, nontender, no guarding, not rigid and No hepatosplenomegaly present Percussion: Yes normal to percussion Auscultation: normal bowel sounds Rectal Exam - Female: deferred Skin General skin exam: no rashes or lesions noted, turgor normal, skin not dry, no jaundice, No spider nevi and no striae Rashes: no rashes Nails: normal Neuro General: oriented to person, oriented to place and oriented to time Cranial nerves: Yes Equal, round and reactive pupils present and Yes Normal hearing present Speech: No Abnormal speech present Extrem General: Yes normal to inspection, No clubbing, No cyanosis and No edema Psych Appearance: grossly normal and well kempt Mental Status: mental status grossly normal Speech and movement: Normal speech and movement present Affect: normal affect Attitude: cooperative Thought process: Normal thought process present and not confabulating Thought content: Normal thought content present Insight: Fair insight present (Psych) Judgement: Fair judgement present (Psych) Results Reviewed Results Reviewed: Gastric emptying study 05/10/23 IMPRESSION: Normal 4-hour solid food gastric emptying study. EGD 09/05/21 Findings: Larynx: Normal Esophagus: Tortuous esophagus with increased tertiary contractions without stricture or ring, esophagitis or Livingston's. GE junction at 36 cms. Empiric esophageal balloon dilation was performed with a 20 mm (60 F) CRE balloon x 60 seconds Stomach: Mild gastric erythema. Biopsies obtained on past EGD were negative for H Pylori. Grade 2 flap valve on retroflexed examination of the cardia. Duodenum: Normal bulb and descending duodenum Intervention: Esophageal balloon dilation as noted above Impression and Post Procedure Diagnosis: Endoscopy Findings: ESOPHAGUS: Tortuous esophagus with increased tertiary contractions without stricture or ring, esophagitis or Livingston's - empiric esophageal balloon dilation was performed to 20 mm (60 F) Assessment & Plan Assessment & Plan (1) Post-cholecystectomy syndrome: Code(s): K91.5 - Postcholecystectomy syndrome (2) Dysphagia: Code(s): R13.10 - Dysphagia, unspecified (3) GERD (gastroesophageal reflux disease): Code(s): K21.9 - Gastro-esophageal reflux disease without esophagitis Qualifiers: Esophagitis presence: without esophagitis Qualified Code(s): K21.9 - Gastro-esophageal reflux disease without esophagitis Plan She still will have occasional troubles if she drinks water too quickly or randomly, but overall her swallowing is improved. She tolerated the procedure and the dilation well. She still has episodes of hoarse voice with variable levels, that she does not clearly connect to her GERD. She has not seen an ENT about this. She seed Dr. Tabares, so I encourage her to speak to this provider about this as this is an ENT. She continues on her loperamide for her diarrhea, and her famotidine for her GERD. SHe has some trouble with her appetite as the [facility] is getting older, she does not like meat, can only eat hard boiled eggs, likes pork fried rice, peanut butter and CHIPS. She says I have been a Godsend to her, as I have helped her with her GI problems, and with her OAB with the oxybutinin. rov 6 MOS. Coding Level of Care Code Est Pt Level 3 (96936) Diagnoses Post-cholecystectomy syndrome K91.5 Dysphagia R13.10 Gastroesophageal reflux disease without esophagitis K21.9 Esophagitis presence: without esophagitis
== END 2023-07-20 14:51 | disposition home or self-care (01) ==
PROVIDERS: PCP Internal Medicine; Visit Provider Nurse Practitioner
DX: K91.5 Postcholecystectomy syndrome (principal); R13.10 Dysphagia, unspecified; K21.9 Gastro-esophageal reflux disease without esophagitis
CPT/HCPCS: 99213

== ENCOUNTER → 2023-07-20 14:08 | Outpatient (BNVA) | payer MEDICARE, SELFPAY | PROVIDERS: PCP Internal Medicine; Visit Provider Nurse Practitioner | DX: K91.5 Postcholecystectomy syndrome (principal); R13.10 Dysphagia, unspecified; K21.9 Gastro-esophageal reflux disease without esophagitis | CPT/HCPCS: 99212 ==

== ENCOUNTER → 2023-08-06 23:59 | Outpatient (BNV) | payer MEDICARE, SELFPAY ==
--- NOTE | 2023-08-06 12:26 | MHC.OFFVIS ---
Intake Intake Visit Reasons: Remote Device Check- [facility] Allergies duloxetine Allergy (Severe, Verified 07/20/23 14:23) LOOPY codeine [CODEINE] Allergy (Intermediate, Verified 07/20/23 14:23) GI UPSET doxycycline [DOXYCYCLINE] Allergy (Intermediate, Verified 07/20/23 14:23) RASH Sulfa (Sulfonamide Antibiotics) [SULFA (SULFONAMIDE ANTIBIOTICS)] Allergy (Intermediate, Verified 07/20/23 14:23) Hives [facility] Medical History [facility] use of drug Osteoarthritis of hands, bilateral Irritable bowel syndrome with diarrhea Rheumatoid arthritis Pacemaker TIA (transient ischemic attack) Dysphagia Spinal stenosis COVID COVID-19 Laryngopharyngeal reflux (LPR) Asthma Rotator cuff tendinitis Post-menopausal Polyarthralgia Dyspnea on exertion Allergic rhinitis Bronchitis Asthma exacerbation Cough variant asthma DJD (degenerative joint disease) Decreased hearing GERD (gastroesophageal reflux disease) Type 2 diabetes 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s Surgical History S/P placement of cardiac pacemaker History of esophagogastroduodenoscopy (EGD) History of colonoscopy Hx of cholecystectomy Hx of tonsillectomy Hx of hysterectomy Family History Father CVD (cardiovascular disease) Diabetes Mother Diabetes Sister No problems noted. Other Substance use disorder Social History Household Members: Family and None Housing: House Are you a primary hemodialysis patient care specialist to a significant other at home: No Do you presently have visiting nurse or other home services: No Alcohol intake: former Comment: WITHIN LAST MONTH Patient Tobacco Use Status: Never used Tobacco e-Cigarette/Vaping Use: Never Used Second Hand Smoke Exposure: No Advance Directives Date on File: 08/04/22 service: No Current occupational status: retired Cognitive needs: Yes (walker) Hearing needs: Yes (hearing aide) Vision needs: Yes (glasses) Office Procedures Cardiac Device Check Cardiac Device Check Details: Remote pacemaker report generated 08/06/2023. Pacemaker function is adequate. Ventricularly pacer dependent [id number] Cardiac Device Interrogation, pacemaker Procedure code (CPT) selection complete Assessment & Plan Assessment & Plan (1) Pacemaker: Code(s): Z95.0 - Presence of cardiac pacemaker Plan: See above Coding Level of Care Code Procedure Only Diagnoses Pacemaker Z95.0 CPT Codes Cardiac Device Check - Cardiac Device 12: [id number] Cardiac Device Interrogation, pacemaker ([id number])
== END ==
PROVIDERS: PCP Internal Medicine; Visit Provider Internal Medicine Cardiovascular Disease
DX: I44.2 Atrioventricular block, complete (principal); Z95.0 Presence of cardiac pacemaker
CPT/HCPCS: 93294

== ENCOUNTER 2023-08-29 09:55 | Outpatient (AMB) | payer MEDICARE, SELFPAY ==
--- NOTE | 2023-08-29 10:01 | A.OFFVIS_ITS ---
Intake Vital Signs 08/29/23 10:03 Height 4 ft 10 in Weight 157 lb 3.033 oz BMI 32.8 BP 92/64 Blood Pressure Location Rt brachial Position Sitting Pulse 78 Pulse Source Pulse Oximeter Temp 97.1 F Temp Source Skin Pulse Oximetry (%) 98 Oxygen Delivery Method Room Air Intake Visit Reasons: ra/oa with nps Intake Note: Patient last seen 04/30/[address] Holden, presents today for follow up and test results. c/o left lwg pain and weakness x while ago . 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 Jackson 72 yoF returns for follow-up her rheumatoid arthritis, osteoarthritis, and osteopenia. For rheumatoid arthritis she continues on methotrexate 15 mg weekly and hydroxychloroquine 200 mg b.i.d. and folic acid 1 mg daily. She denies any side effects from the medication. She thinks her joints are doing well does get occasional pains in the fingers across the PIP and DIP joint. She describes pain in her feet over the instep region. She has trouble walking mostly because of balance issues and uses a walker for long distances. She uses wax treatments at home for her hands which she finds helpful. She had an eye exam in July with no adverse findings and is cleared to continue HCQ. She had received an infusion of zoledronic acid back in February 2023 that was uneventful. That was her 1st infusion. She also has diabetic neuropathy and takes gabapentin 600 mg in the morning and 1200 mg in the evening mostly for nocturnal foot and leg pain. [facility] Medical History (Updated 08/30/23 @ 17:28 by ISAAC Sosa-VANESA) Edema of lower extremity present on examination Petechiae [employer] use of drug Osteoarthritis of hands, bilateral Irritable bowel syndrome with diarrhea Rheumatoid arthritis Pacemaker TIA (transient ischemic attack) Dysphagia Spinal stenosis COVID COVID-19 Laryngopharyngeal reflux (LPR) Asthma Rotator cuff tendinitis Post-menopausal Polyarthralgia Dyspnea on exertion Allergic rhinitis Bronchitis Asthma exacerbation Cough variant asthma DJD (degenerative joint disease) Decreased hearing GERD (gastroesophageal reflux disease) Type 2 diabetes 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s Surgical History S/P placement of cardiac pacemaker History of esophagogastroduodenoscopy (EGD) History of colonoscopy Hx of cholecystectomy Hx of tonsillectomy Hx of hysterectomy Family History Father CVD (cardiovascular disease) Diabetes Mother Diabetes Sister No problems noted. Other Substance use disorder Social History Household Members: Family and None Housing: House Are you a primary child care associate to a significant other at home: No Do you presently have visiting nurse or other home services: No Alcohol intake: former Comment: WITHIN LAST MONTH Patient Tobacco Use Status: Never used Tobacco e-Cigarette/Vaping Use: Never Used Second Hand Smoke Exposure: No Advance Directives Date on File: 08/04/22 service: No Current occupational status: retired Cognitive needs: Yes (walker) Hearing needs: Yes (hearing aide) Vision needs: Yes (glasses) Review of Systems Const All systems reviewed & are unremarkable except as noted in HPI and below Physical Exam Vital Signs: Last Vital Signs Temp 97.1 F 08/29/23 10:03 Pulse 78 08/29/23 10:03 BP 92/64 08/29/23 10:03 Pulse Ox 98 08/29/23 10:03 Oxygen Delivery Method Room Air 08/29/23 10:03 BMI result Body Mass Index 32.8 APPEARANCE: Patient in no acute distress, nourished groomed EYES no redness, No temporal artery tenderness, redness or swelling EXTREMITIES: Bilateral +1 pitting edema, with calf tenderness and increased telangiectasis, normal peripheral pulses. SKIN: Petechiae and telangiectasia to lower extremities starting from the knee down to the foot JOINT EXAM: Cervical Spine:? Full range of motion without pain; no tenderness. Thoracic Spine:?? No tenderness on palpation. Lumbar Spine:? Alignment normal.? Full range of motion, some pain with flexion, slight tenderness to palpation over lumbar spine. Hands:? LEFT:? There is puffiness across the MCPs but they are not tender. There is no flexor tendon triggering, thenar atrophy or sensory loss. There is slightly tender bony enlargement at the base of the thumb. There is mild bony enlargement with swelling at the 2nd through 5th PIP joints. There is slight tenderness at the 3rd PIP. There is some minimal bony enlargement at the PIP joints and the 2nd 3rd are slightly tender. Right: There is mild bony enlargement without tenderness at the thumb IP, all the PIP joints and the 2nd DIP and 3rd DIP joint. There is puffiness to the 2nd and 3rd PIP [place]. There is no MCP swelling or tenderness. Wrists: Normal pain-free range of motion without tenderness, swelling, increased warmth or erythema. Elbows: Normal pain-free range of motion without tenderness, swelling, increased warmth or erythema. Shoulders:? Right: Mild pain with extremes of normal range of motion. There is some minimal anterior tenderness without abductor weakness or adenopathy. Left: Full range of motion without pain. No tenderness, weakness, swelling, increased warmth or erythema. Hip bursa:? No tenderness. Knees:?? Normal pain-free range of motion without tenderness, swelling, increased warmth or erythema.? There is no effusion or crepitation Ankles: Normal pain-free range of motion without tenderness, swelling, increased warmth or erythema. Feet: Right: Normal pain-free range of motion with mild bony enlargement without tenderness at the 1st MTP. There is some slightly tender bony prominence at the proximal end of the 5th metatarsal. She has some mild heel tenderness and some slightly tender bony enlargement over the instep consistent with some osteoarthritis. Left: There is mild bony enlargement over the instep that slightly tender. She also has some slight bony enlargement with tenderness over the instep. There is some heel tenderness on the medial side. The 1st MTP has some minimal bony enlargement without tenderness. Other joints have no tenderness, swelling, increased warmth or erythema. ? Results Reviewed Results Reviewed: [facility] [address] [place], [place] [address] Mammography Report SignedPatient: Kriss Jackson MR#: [id number] : 1950 Acct:[id number] Age/Sex: 72 / F ADM Date: 01/23/[address]: Jake Holden MD Ordering Physician: Jake Holden MD Results: Date of Service: 01/23/23 Follow Up: Procedure(s): XR DEXA axial skeleton Accession Number(s): [id number] cc: Jake Holden MD~ EXAMINATION: BONE DENSITOMETRY CLINICAL INDICATION: Osteopenia. COMPARISON: Baseline BD dated 12/02/2020. TECHNIQUE: Using a [employer] DXA System (software version: 13.1) manufactured by [employer], dual-energy x-ray absorptiometry was performed of the lumbar spine and left hip. The images are of good technical quality. Summary results are attached. FINDINGS: AP SPINE L1-L2 (excluding L3 and L4): The data of L1-L4 has been changed to exclude the L3 and L4 vertebral bodies, because degenerative sclerosis at these levels may cause overestimation of lumbar spine density. Current: BMD 1.032 g/cm2, Z-score 0.3, T-score -1.1, osteopenia, 2.0% increase from baseline (<5% change is not significant). Baseline: BMD 1.012 g/cm2. LEFT FEMUR, NECK: Current: BMD 0.745 g/cm2, Z-score -0.5, T-score -2.1, osteopenia. Baseline: BMD 0.975 g/cm2. LEFT FEMUR, TOTAL: Current: BMD 0.882 g/cm2, Z-score 0.4, T-score -1.0, normal, 18.2% decrease from baseline (<5% change is not significant). Baseline: BMD 1.078 g/cm2. IDENTIFIED RISK FACTORS: Rheumatoid arthritis. Height loss. Secondary osteoporosis (early menopause). Chronic glucocorticoids. HISTORY OF FRACTURE: None listed. MEDICATIONS: Vitamin D. MM/XR DEXA axial skeleton IMPRESSION: 1. DIAGNOSIS: Osteopenia based on the lowest T-score value of -2.1 in the femoral neck applying World Health Organization criteria.? 2. 10-YEAR FRACTURE RISK PREDICTION, FRAX: Major osteoporotic fracture (clinical spine, forearm, hip or shoulder) 24.2%. Hip fracture 6.7%. 3. Treatment Recommendations: NOF guidelines recommend consideration for treatment in postmenopausal women and men age 50 and older presenting with the following: -A hip or vertebral (clinical or morphometric) fracture. -T-score less than or equal to -2.5 at the femoral neck or spine after appropriate evaluation to exclude secondary causes. -Low bone mass at the hip or spine and a 10-year fracture probability by FRAX of greater than or equal to 3% for hip fracture or greater than or equal to 20% for major osteoporotic fracture based on the [place] adapted WHO algorithm. 4. Other Recommendations: All treatment decisions require clinical judgment and consideration of individual patient factors, including patient preferences, comorbidities, previous drug use, risk factors not captured in the FRAX model (e.g. frailty, falls, vitamin D deficiency, increased bone turnover, interval significant decline in bone density) and possible under or overestimation of fracture risk by FRAX. Additional medical evaluation for secondary cause of low bone mineral density may be appropriate. ? FUTURE SCAN RECOMMENDATION: People with diagnosed cases of osteoporosis or at high risk for fracture should have regular bone mineral density tests. For patients eligible for Medicare, routine testing is allowed once every 2 years. The testing frequency can be increased to one year for patients who have rapidly progressing disease, those who are receiving or discontinuing medical therapy to restore bone mass, or have additional risk factors. Dictated By: Lowell Hooks MD Laboratory Tests 04/27/23 12:18 WBC 8.6 Hgb 10.4 L ESR 16 Creatinine 1.34 AST 25 ALT 23 C-Reactive Protein 1.43 H Laboratory Tests 07/12/23 09:39 WBC 8.3 RBC 3.54 L Hgb 11.7 L Hct 33.8 L ESR 12 Estimated GFR 32 AST 26 ALT 32 H C-Reactive Protein 0.25 Assessment & Plan Assessment & Plan (1) Osteoarthritis of hands, bilateral: Code(s): M19.041 - Primary osteoarthritis, right hand; M19.042 - Primary osteoarthritis, left hand Qualifiers: Osteoarthritis type: primary Qualified Code(s): M19.041 - Primary osteoarthritis, right hand; M19.042 - Primary osteoarthritis, left hand (2) Long-term use of hydroxychloroquine: Comment: For RA since ?. Eye exam OK 08/2022 Code(s): Z79.899 - Other halfway (current) drug therapy (3) assisted use of drug: Code(s): Z79.899 - Other lobsterman (current) drug therapy (4) Rheumatoid arthritis: Comment: Subcutaneous methotrexate: start date unknown? Around 2019 or 2019-January 2022 Plaquenil: Start date unknown ? Around 2019 or 2019 Oral methotrexate- January 2022 to present Code(s): M06.9 - Rheumatoid arthritis, unspecified Qualifiers: Rheumatoid arthritis location: multiple sites Rheumatoid factor presence: without rheumatoid factor Qualified Code(s): M06.09 - Rheumatoid arthritis without rheumatoid factor, multiple sites (5) Petechiae: Code(s): R23.3 - Spontaneous ecchymoses (6) Edema of lower extremity present on examination: Code(s): R60.0 - Localized edema Plan # RA: I do not think the synovitis from the rheumatoid arthritis is well controlled with current treatment. She has some bony enlargement in many joints in the hands and feet consistent with osteoarthritis. But I think the swelling at the PIP joints and puffiness at the MCP joints with tenderness when palpated is related to the RA. The patient says the enlarged knuckles do affect ability to knit and she is losing her dexterity. I will consider to add a bio DMARD to reduce his synovitis to her PIP joints and once that onboards we can stopped hydroxychloroquine. I will also obtain labs for uric acid to assess for gout. Deforming changes to her medications however I would like to see her reassess for the bilateral pitting edema which may be causing the increased petechiae to her lower legs. Obtain x-rays of her hands to assess for disease activity. #Lower Extremity: The patient has bilateral +1 pitting edema. I think this may have caused some petechiae and telangiectasia appearance to her legs very pronounced on her foot areas and near the knee. I think patient is already in the care of cardiac but she cannot seem to recall that and she is also not certain if she has had a vascular consult. I have assessed for vasculitis and I do not see this as the cause for the petechiae but likely caused by the edema. She wears a pacemaker and has a history of CHF so I know there has to be cardiology on her healthcare Roster. There is also some numbness and nocturnal pain in the feet consistent with diabetic neuropathy and that probably gives her some degree of balance difficulty. I encouraged her to stay ambulatory with a walker for safety's sake. #Long-term use: The lab work looks good so I think we can continue with the methotrexate as above. She has a slight anemia, probably due to underlying iron deficiency that has been noted before as well as her CKD. We would recommend lab work for today and again 1 week before next visit in 3 months. #Osteopenia: Zoledronic acid next February 2024 for her osteopenia. I spent 40 minutes evaluating patient, reviewing history, assessing possible cardiovascular concerns, documenting Orders: Orders XR hand LT min 3V 08/29/23 M06.9 - Rheumatoid arthritis, unspecified XR hand RT min 3V 08/29/23 M06.9 - Rheumatoid arthritis, unspecified ANCA Vasculitides 08/29/23 M06.9 - Rheumatoid arthritis, unspecified, R23.3 - Spontaneous ecchymoses C Reactive Protein 08/29/23 M06.9 - Rheumatoid arthritis, unspecified, R23.3 - Spontaneous ecchymoses Complete Blood Count Auto Diff 08/29/23 M06.9 - Rheumatoid arthritis, unspecified, R23.3 - Spontaneous ecchymoses Comprehensive Met. Panel 08/29/23 M06.9 - Rheumatoid arthritis, unspecified, Z79.899 - Other halfway (current) drug therapy C Reactive Protein 08/29/23 M06.9 - Rheumatoid arthritis, unspecified, Z79.899 - Other halfway (current) drug therapy Comprehensive Met. Panel 08/29/23 M06.9 - Rheumatoid arthritis, unspecified, R23.3 - Spontaneous ecchymoses Erythrocyte Sedimentation Rate 08/29/23 M06.9 - Rheumatoid arthritis, unspecified, R23.3 - Spontaneous ecchymoses Uric Acid 08/29/23 M06.9 - Rheumatoid arthritis, unspecified, R23.3 - Spontaneous ecchymoses Erythrocyte Sedimentation Rate 08/29/23 M06.9 - Rheumatoid arthritis, unspecified, Z79.899 - Other halfway (current) drug therapy Complete Blood Count Auto Diff 08/29/23 M06.9 - Rheumatoid arthritis, unspecified, Z79.899 - Other halfway (current) drug therapy Coding Level of Care Code Est Pt Level 4 (00014) Diagnoses Primary osteoarthritis of both hands M19.041; M19.042 Osteoarthritis type: primary Long-term use of hydroxychloroquine Z79.899 assisted use of drug Z79.899 Rheumatoid arthritis of multiple sites with negative rheumatoid factor M06.09 Rheumatoid arthritis location: multiple sites Rheumatoid factor presence: without rheumatoid factor Petechiae R23.3 Edema of lower extremity present on examination R60.0
[2023-08-29 10:03] VITALS: BP 92/64; PULSE 78; TEMP 36.2; O2SAT 98; BMI 32.8
== END 2023-08-29 10:53 | disposition home or self-care (01) ==
PROVIDERS: PCP Internal Medicine; Visit Provider Nurse Practitioner Family
DX: M19.041 Primary osteoarthritis, right hand (principal); M19.042 Primary osteoarthritis, left hand; Z79.899 Other long term (current) drug therapy; M06.09 Rheumatoid arthritis without rheumatoid factor, multiple sites; R23.3 Spontaneous ecchymoses; R60.0 Localized edema
CPT/HCPCS: 99214

== ENCOUNTER 2023-08-29 09:55 | Outpatient (REF) | payer MEDICARE, SELFPAY ==
--- NOTE | ~2023-08-29 | XR_ITS ---
EXAMINATION: XR HAND, RIGHT XR HAND, LEFT CLINICAL INFORMATION: Rheumatoid arthritis, unspecified COMPARISON: Bilateral hands 11/12/2020 TECHNIQUE: PA, lateral, and oblique views of the right and left hands FINDINGS: Right hand: The bones are intact. No fracture or dislocation. Alignment is anatomic. There is mild osteoarthritis at the IP joint of the thumb with joint space narrowing and osteophyte formation. There is a small cyst or erosion of the ulnar styloid and distal aspect of the radius. There are small erosions of the distal medial aspect of the proximal phalanges of the index middle and ring finger. Left hand: The bones are intact. No fracture or dislocation. Alignment is anatomic. There is osteoarthritis of the IP joint with joint space narrowing and osteophyte formation of the thumb. There is osteoarthritis of the DIP joint joint of the index finger and PIP joint of the middle finger. There is question of a small erosion or cyst of the radial styloid. There is some adjacent soft tissue calcification as well. It is possible this is related to old trauma. There is an erosion of the distal proximal phalangeal of the middle finger, and also the first and second metacarpal heads. XR/XR hand RT min 3V IMPRESSION: 1. Osteoarthritis of the IP joints and a few scattered IP joints of the fingers. 2. Small cyst or erosion of the right ulnar styloid. 3. Question small cyst or erosion of the left radial styloid. 4. Other erosions as described above.
--- NOTE | ~2023-08-29 | XR_ITS ---
EXAMINATION: XR HAND, RIGHT XR HAND, LEFT CLINICAL INFORMATION: Rheumatoid arthritis, unspecified COMPARISON: Bilateral hands 11/12/2020 TECHNIQUE: PA, lateral, and oblique views of the right and left hands FINDINGS: Right hand: The bones are intact. No fracture or dislocation. Alignment is anatomic. There is mild osteoarthritis at the IP joint of the thumb with joint space narrowing and osteophyte formation. There is a small cyst or erosion of the ulnar styloid and distal aspect of the radius. There are small erosions of the distal medial aspect of the proximal phalanges of the index middle and ring finger. Left hand: The bones are intact. No fracture or dislocation. Alignment is anatomic. There is osteoarthritis of the IP joint with joint space narrowing and osteophyte formation of the thumb. There is osteoarthritis of the DIP joint joint of the index finger and PIP joint of the middle finger. There is question of a small erosion or cyst of the radial styloid. There is some adjacent soft tissue calcification as well. It is possible this is related to old trauma. There is an erosion of the distal proximal phalangeal of the middle finger, and also the first and second metacarpal heads. XR/XR hand LT min 3V IMPRESSION: 1. Osteoarthritis of the IP joints and a few scattered IP joints of the fingers. 2. Small cyst or erosion of the right ulnar styloid. 3. Question small cyst or erosion of the left radial styloid. 4. Other erosions as described above.
[2023-08-29 14:43] LABS: MANUAL DIFF FLAG NO
[2023-08-29 15:36] LABS: Basophils Absolute Auto 0.1 X10*3/uL (0.0-0.2); Basophils Percent Auto 1.1 % (0-2); Eosinophils Absolute Auto 0.2 X10*3/uL (0.0-0.4); Eosinophils Percent Auto 2.6 % (0-4); Hematocrit 29.9 % (37.0-47.0); Hemoglobin 10.3 g/dl (12.0-16.0); Imm Gran Abs Auto 0.03 X10*3/uL (0.00-0.03); Imm Gran Pct Auto 0.4 % (0.0-0.4); Lymphocytes Absolute Auto 1.4 X10*3/uL (1.2-4.9); Mean Corpuscular HGB Conc 34.4 g/dl (31.0-35.0); Mean Corpuscular Hemoglobin 32.9 pg (27.0-33.0); Mean Corpuscular Volume 95.5 fL (80.0-98.0); Mean Platelet Volume 11.2 fL (9.4-12.3); Monocytes Absolute Auto 0.4 X10*3/uL (0.1-1.2); Monocytes Percent Auto 4.8 % (2-11); Neutrophils Absolute Auto 5.9 x10*3/uL (2.0-8.3); Neutrophils Percent Auto 74.1 % (45-73); Platelet Count 222 X10*3/uL (160-400); Red Blood Count 3.13 X10*6/uL (4.20-5.50); Red Cell Distribution Width 13.7 % (11.0-16.0)
[2023-08-29 16:07] LABS: Alanine Aminotransferase 35 U/L (0-31); Albumin Level 4.3 g/dL (3.5-5.0); Alkaline Phosphatase 57 U/L (39-117); Anion Gap 13 (12-20); Aspartate Amino Transferase 34 U/L (5-31); Bilirubin Total 0.6 mg/dL (0.0-1.0); Blood Urea Nitrogen 29 mg/dL (9-16); C Reactive Protein 0.42 mg/dL (< or = 0.50); Calcium 9.3 mg/dL (8.4-10.2); Carbon Dioxide 27 mmol/L (22-29); Chloride 105 mmol/L (96-108); Estimated Glomerular Filt Rate 44; Glucose Random 112 mg/dL (60-115); Potassium 4.1 mmol/L (3.3-5.1); Sodium 141 mmol/L (135-145); Total Protein 6.7 g/dL (6.5-8.0)
[2023-08-29 16:14] LABS: Erythrocyte Sedimentation Rate 12 MM/HR (0-20)
[2023-08-30 12:52] LABS: Myeloperoxidase Antibody <1.0 AI; Proteinase 3 PR3 Antibodies <1.0 AI
== END 2023-08-29 09:56 | disposition home or self-care (01) ==
LOC: HO.LAB 09:55
PROVIDERS: PCP Internal Medicine; Visit Provider Nurse Practitioner Family
DX: M06.09 Rheumatoid arthritis without rheumatoid factor, multiple sites (principal); R60.0 Localized edema; M19.042 Primary osteoarthritis, left hand; M19.041 Primary osteoarthritis, right hand; M85.80 Other specified disorders of bone density and structure, unspecified site; R23.3 Spontaneous ecchymoses; E11.40 Type 2 diabetes mellitus with diabetic neuropathy, unspecified; E27.49 Other adrenocortical insufficiency; Z79.631 Long term (current) use of antimetabolite agent; Z79.899 Other long term (current) drug therapy
CPT/HCPCS: 36415; 73130; 80053; 84550; 85025; 85652; 86021; 86140; 99212

== ENCOUNTER → 2023-11-05 23:59 | Outpatient (BNV) | payer MEDICARE, SELFPAY ==
--- NOTE | 2023-11-06 15:59 | MHC.OFFVIS ---
Intake Visit Reasons: Remote Device check- [facility] Allergies duloxetine Allergy (Severe, Verified 09/05/23 09:06) LOOPY codeine [CODEINE] Allergy (Intermediate, Verified 09/05/23 09:06) GI UPSET doxycycline [DOXYCYCLINE] Allergy (Intermediate, Verified 09/05/23 09:06) RASH Sulfa (Sulfonamide Antibiotics) [SULFA (SULFONAMIDE ANTIBIOTICS)] Allergy (Intermediate, Verified 09/05/23 09:06) Hives COUNTS INCLUDE 234 BEDS AT THE [facility] Medical History (Updated 09/05/23 @ 09:07 by Becky Brian MD) Edema of lower extremity present on examination Petechiae alf use of drug Osteoarthritis of hands, bilateral Irritable bowel syndrome with diarrhea Rheumatoid arthritis Pacemaker TIA (transient ischemic attack) Dysphagia Spinal stenosis COVID COVID-19 Laryngopharyngeal reflux (LPR) Asthma Rotator cuff tendinitis Post-menopausal Polyarthralgia Dyspnea on exertion Allergic rhinitis Bronchitis Asthma exacerbation Cough variant asthma DJD (degenerative joint disease) Decreased hearing GERD (gastroesophageal reflux disease) Type 2 diabetes 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s Surgical History S/P placement of cardiac pacemaker History of esophagogastroduodenoscopy (EGD) History of colonoscopy Hx of cholecystectomy Hx of tonsillectomy Hx of hysterectomy Family History Father CVD (cardiovascular disease) Diabetes Mother Diabetes Sister No problems noted. Other Substance use disorder Social History Household Members: Family and None Housing: House Are you a primary cardiac care nurse to a significant other at home: No Do you presently have visiting nurse or other home services: No Alcohol intake: former Comment: WITHIN LAST MONTH Patient Tobacco Use Status: Never used Tobacco e-Cigarette/Vaping Use: Never Used Second Hand Smoke Exposure: No Advance Directives Date on File: 08/04/22 service: No Current occupational status: retired Cognitive needs: Yes (walker) Hearing needs: Yes (hearing aide) Vision needs: Yes (glasses) Office Procedures Cardiac Device Check Cardiac Device Check Details: Remote pacemaker report generated 11/05/2023. Patient ventricularly pacer dependent. Pacemaker function is adequate [id number] Cardiac Device Interrogation, pacemaker Procedure code (CPT) selection complete Assessment & Plan Assessment & Plan (1) Pacemaker: Code(s): Z95.0 - Presence of cardiac pacemaker Category: Medical Plan: See above Coding Level of Care Code Procedure Only Diagnoses Pacemaker Z95.0 CPT Codes Cardiac Device Check - Cardiac Device 12: [id number] Cardiac Device Interrogation, pacemaker ([id number])
== END ==
PROVIDERS: PCP Internal Medicine; Visit Provider Internal Medicine Cardiovascular Disease
DX: Z45.018 Encounter for adjustment and management of other part of cardiac pacemaker (principal)
CPT/HCPCS: 93294

== ENCOUNTER 2023-11-06 09:51 | Outpatient (REF) | payer MEDICARE, SELFPAY ==
--- NOTE | ~2023-11-06 | MM_ITS ---
EXAMINATION: MM SCREENING DIGITAL BREAST TOMOSYNTHESIS, BILATERAL CLINICAL INFORMATION: Screening. Asymptomatic. COMPARISON: Mammography: This study is compared with prior exams dating back to 2018. TECHNIQUE: Digital breast tomosynthesis is performed in both the craniocaudal and mediolateral oblique views along with computer-aided detection (CAD). Synthesized 2D images are generated from the tomosynthesis. FINDINGS: There are scattered areas of fibroglandular density (ACR BI-RADS breast composition Category b). There are no significant masses, abnormal calcifications, or other abnormalities. There is a tissue marker present in the left breast from prior benign percutaneous biopsy. MM/MM tomosynthesis screening BI IMPRESSION: No mammographic evidence of malignancy. ASSESSMENT: BI-RADS BI-RADS 2 - Benign Findings RECOMMENDATION: Routine annual mammography screening. 1 year F/U This examination should not preclude the clinical evaluation of a suspicious palpable abnormality. This patient's information was entered into a reminder system with a target due date for their next mammogram.
== END 2023-11-06 09:52 | disposition home or self-care (01) ==
LOC: HO.MAMMO 09:51
PROVIDERS: PCP Internal Medicine; Visit Provider Internal Medicine
DX: Z12.31 Encounter for screening mammogram for malignant neoplasm of breast (principal)
CPT/HCPCS: 77063; 77067

== ENCOUNTER → 2023-11-06 10:00 | Outpatient (BNV) | payer MEDICARE, SELFPAY | PROVIDERS: PCP Internal Medicine; Visit Provider Radiology Diagnostic Radiology | DX: Z12.31 Encounter for screening mammogram for malignant neoplasm of breast (principal) | CPT/HCPCS: 77063; 77067 ==

== ENCOUNTER 2023-11-08 10:42 | Outpatient (AMB) | payer MEDICARE, SELFPAY ==
--- NOTE | 2023-11-08 11:18 | MHC.PC.OV ---
Vital Signs 11/08/23 11:21 Height 4 ft 10 in Weight 159 lb 4 oz BMI 33.3 BP 112/60 Blood Pressure Location Lt brachial Position Sitting Pulse 72 Pulse Source Pulse Oximeter Pulse Oximetry (%) 97 Oxygen Delivery Method Room Air Intake Visit Reasons: 3mth f/u Intake Note: Patient is here to follow up on RA, Asthma, DM, DJD,. 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 per policy Accompanied by: Self / Same As Patient Allergies duloxetine Allergy (Severe, Verified 11/09/23 14:52) LOOPY codeine [CODEINE] Allergy (Intermediate, Verified 11/09/23 14:52) GI UPSET doxycycline [DOXYCYCLINE] Allergy (Intermediate, Verified 11/09/23 14:52) RASH Sulfa (Sulfonamide Antibiotics) [SULFA (SULFONAMIDE ANTIBIOTICS)] Allergy (Intermediate, Verified 11/09/23 14:52) Hives Medication List - Last Reconciled 11/09/23 by Angel Pablo MD albuterol sulfate 90 mcg/actuation (ProAir HFA) 2 puffs inhalation Q4-6H PRN 30 days ammonium lactate 12% 12 appl topical BID aspirin 81 mg PO DAILY atorvastatin 20 mg PO DAILY betamethasone valerate 0.1% 1 appl topical BID PRN blood sugar diagnostic (SkycatchTouch Ultra Test strips) As directed 3x daily cholecalciferol (vitamin D3) (Vitamin D3) 4,000 units PO DAILY famotidine 40 mg PO BID ferrous sulfate 325 mg PO DAILY fluticasone propionate 50 mcg/actuation 2 sprays intranasal DAILY folic acid 1 mg PO DAILY furosemide 20 mg PO DAILY gabapentin 600 mg PO TID hydroxychloroquine 200 mg PO BID insulin glargine (Lantus Solostar U-100 Insulin) 70 units (0.7 mL) subcut BEDTIME 30 days insulin lispro (Humalog Kervin KwikPen (U-100)) 1 sliding scale dose subcut USEASDIRECTD insulin syringe-needle U-100 As directed ketoconazole 2% 1 appl topical BID lamotrigine 50 mg PO BID lidocaine 5% 1 patch topical DAILY lisinopril-hydrochlorothiazide 10-12.5 mg 1 tab PO DAILY 90 days loperamide 2 mg PO TID methotrexate sodium 15 mg (6 x 2.5 mg) PO QWEEK metronidazole 1% 1 appl topical DAILY oxybutynin chloride ER 10 mg PO DAILY pen needle, diabetic (BD [place] 2nd Gen Pen Needle) As directed walker As directed zoledronic uzqw-nefiknnh-algaj 5 mg/100 mL (Reclast) 5 ea IV ONCE Tobacco use date assessed: 11/08/23 Fall risk assessment: 2 + Falls in past year Last assessed Fall Risk: 11/08/23 Dental Screening Dental Screen Date: 07/19/23 HPI 3mth f/u HPI Details 72-year-old female presents to the office to discuss her chronic medical conditions. Patient is compliant with medications. Able to function and do all activities of daily living. Patient would like to have her left leg checked. She sees increased vascular markings. 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 Osteoarthritis of hands, bilateral Irritable bowel syndrome with diarrhea Rheumatoid arthritis Pacemaker TIA (transient ischemic attack) Dysphagia Spinal stenosis COVID COVID-19 Laryngopharyngeal reflux (LPR) Asthma Rotator cuff tendinitis Post-menopausal Polyarthralgia Dyspnea on exertion Allergic rhinitis Bronchitis Asthma exacerbation Cough variant asthma DJD (degenerative joint disease) Decreased hearing GERD (gastroesophageal reflux disease) Type 2 diabetes 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s Surgical History S/P placement of cardiac pacemaker History of esophagogastroduodenoscopy (EGD) History of colonoscopy Hx of cholecystectomy Hx of tonsillectomy Hx of hysterectomy Family History Father CVD (cardiovascular disease) Diabetes Mother Diabetes Sister No problems noted. Other Substance use disorder Social History Household Members: Family and None Housing: House Are you a primary weekend caregiver to a significant other at home: No Do you presently have visiting nurse or other home services: No Alcohol intake: former Comment: WITHIN LAST MONTH Patient Tobacco Use Status: Never used Tobacco e-Cigarette/Vaping Use: Never Used Second Hand Smoke Exposure: No Advance Directives Date on File: 08/04/22 service: No Current occupational status: retired Cognitive needs: Yes (walker) Hearing needs: Yes (hearing aide) Vision needs: Yes (glasses) Questionnaire Thrive Questionnaire Date Thrive assessed: 07/19/23 AUDIT C Alcohol Use Questionnaire (AUDIT-C) 1. How often do you have a drink containing alcohol?: Never Total Score: 0 BRITTNEY-7 AMB Questionnaire BRITTNEY-7 Date BRITTNEY - 7 assessed: 07/19/23 Source: Developed by Drs. Jonathan Sandoval, Dodie Tejada, Alberto Elizondo and colleagues, with an educational mark from [employer]. Physical exam (Primary Care) Vital Signs: Last Vital Signs Pulse 72 11/08/23 11:21 BP 112/60 11/08/23 11:21 Pulse Ox 97 11/08/23 11:21 Oxygen Delivery Method Room Air 11/08/23 11:21 BMI result Body Mass Index 33.3 Tobacco/Smoking Status: Tobacco use Status Tobacco use date assessed 11/08/23 11/08/23 11:31 Patient Tobacco Use Status Never used Tobacco 11/08/23 11:31 e-Cigarette/Vaping Use Never Used 11/08/23 11:31 Thrive Assessment: Date of Thrive Assessment Date Thrive assessed 07/19/23 11/08/23 11:31 Const General: cooperative and healthy appearing Nutritional Appearance: well nourished Orientation/consciousness: patient oriented x3 Limitations: no limitations HENMT Head: Yes normal to inspection Eyes General: appearance normal, both eyes and all related structures Neck Neck: Yes normal visual inspection Chest Chest palpation & inspection: normal palpation of entire chest wall Resp Effort & Inspection: normal respiratory effort Neuro General: patient oriented x3 Extrem Other: Left leg: Prominent capillary veins. No varicose veins. 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 Continue current medications. Reassurance on the left leg. No procedure or medications needed. Orders: Orders AMB Hemoglobin A1c 11/08/23 E11.9 - Type 2 diabetes 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s, Z79.4 - medical terminologist (current) use of insulin Coding Level of Care Code Est Pt Level 3 (79157) Diagnoses Type 2 diabetes 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, with long-term current use of insulin E11.9; Z79.4 Diabetes mellitus intermediate insulin use: with petroleum terminal plant operator use
[2023-11-08 11:21] VITALS: BP 112/60; PULSE 72; O2SAT 97; BMI 33.3
== END 2023-11-08 11:55 | disposition home or self-care (01) ==
PROVIDERS: PCP Internal Medicine; Visit Provider Internal Medicine
DX: E11.9 Type 2 diabetes 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s (principal); Z79.4 Long term (current) use of insulin
CPT/HCPCS: 83036; 99213

== ENCOUNTER 2023-11-13 10:41 | Outpatient (REF) | payer MEDICARE, SELFPAY ==
--- NOTE | ~2023-11-13 | MR_ITS ---
EXAMINATION: MR BRAIN WITHOUT CONTRAST CLINICAL INFORMATION: Hemiparesis. COMPARISON: CTA head and neck from 08/15/2022. TECHNIQUE: MRI of the brain was obtained using routine sequences without contrast. FINDINGS: No focal restricted diffusion is demonstrated to suggest acute or subacute cerebral ischemia. No evidence of acute or chronic hemorrhagic products on heme-sensitive imaging. Scattered and partially confluent periventricular, deep white matter, and brainstem T2 FLAIR hyperintensities consistent with moderate underlying microangiopathy. Proportional prominence of the ventricles and sulcal spaces without evidence of obstructive hydrocephalus. No abnormal mass effect. No midline shift. Normal appearance of the pituitary gland. Normal positioning of the cerebellar tonsils. Normal arterial and venous vascular flow voids are present. Normal, homogeneous marrow signal. Mild mucosal thickening of the paranasal sinuses. No signal abnormalities within the mastoids. Left-sided lens extraction. MR/MR head/brain wo con IMPRESSION: 1. No acute intracranial abnormalities. 2. Moderate underlying microangiopathy and generalized cerebral volume loss.
== END 2023-11-13 10:42 | disposition home or self-care (01) ==
LOC: HO.MRI 10:41
PROVIDERS: PCP Internal Medicine; Visit Provider Psychiatry & Neurology Neurology
DX: G81.92 Hemiplegia, unspecified affecting left dominant side (principal)
CPT/HCPCS: 70551

== ENCOUNTER 2023-11-29 09:49 | Outpatient (AMB) | payer MEDICARE, SELFPAY ==
--- NOTE | 2023-11-29 10:02 | A.OFFVIS_ITS ---
Vital Signs 11/29/23 10:13 Height 4 ft 10 in Weight 156 lb 11.979 oz BMI 32.8 BP 90/52 L Blood Pressure Location Rt brachial Position Sitting Pulse 82 Pulse Oximetry (%) 97 Intake Visit Reasons: RA/OA/CM Intake Note: Patient last seen 08/29/23 by Mirna, presents today for RA/OA follow up and test results. c/o lex hand/finger pain and swelling, R>L Allergies duloxetine Allergy (Severe, Verified 11/29/23 10:02) LOOPY codeine [CODEINE] Allergy (Intermediate, Verified 11/29/23 10:02) GI UPSET doxycycline [DOXYCYCLINE] Allergy (Intermediate, Verified 11/29/23 10:02) RASH Sulfa (Sulfonamide Antibiotics) [SULFA (SULFONAMIDE ANTIBIOTICS)] Allergy (Intermediate, Verified 11/29/23 10:02) Hives HPI Comments Details: Ms. Jackson 72 yoF returns for follow-up her rheumatoid arthritis, osteoarthritis, and osteopenia. For rheumatoid arthritis she continues on methotrexate 15 mg weekly and hydroxychloroquine 200 mg b.i.d. and folic acid 1 mg daily. She denies any side effects from the medication. She thinks her joints are doing well does get occasional pains in the fingers across the PIP and DIP joint with making a fist. She describes pain in her feet over the instep region. She has trouble walking mostly because of balance issues and uses a walker for long distances. She uses wax treatments at home for her hands and OA gloves which she finds helpful. She had an eye exam in July with no adverse findings and is cleared to continue HCQ. She had received an infusion of zoledronic acid back in February 2023 that was uneventful. That was her 1st infusion. She also has diabetic neuropathy and takes gabapentin 600 mg in the morning and 1200 mg in the evening mostly for nocturnal foot and leg pain. --Neuro visit identified mini strokes that she has had that is affecting her balance --Dentist - fixed broken front tooth with a cleaning -- Sees Dr. 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 Osteoarthritis of hands, bilateral Irritable bowel syndrome with diarrhea Rheumatoid arthritis Pacemaker TIA (transient ischemic attack) Dysphagia Spinal stenosis COVID COVID-19 Laryngopharyngeal reflux (LPR) Asthma Rotator cuff tendinitis Post-menopausal Polyarthralgia Dyspnea on exertion Allergic rhinitis Bronchitis Asthma exacerbation Cough variant asthma DJD (degenerative joint disease) Decreased hearing GERD (gastroesophageal reflux disease) Type 2 diabetes 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s Surgical History S/P placement of cardiac pacemaker History of esophagogastroduodenoscopy (EGD) History of colonoscopy Hx of cholecystectomy Hx of tonsillectomy Hx of hysterectomy Family History Father CVD (cardiovascular disease) Diabetes Mother Diabetes Sister No problems noted. Other Substance use disorder Social History Household Members: Family and None Housing: House Are you a primary inspector health care facilities to a significant other at home: No Do you presently have visiting nurse or other home services: No Alcohol intake: former Comment: WITHIN LAST MONTH Patient Tobacco Use Status: Never used Tobacco e-Cigarette/Vaping Use: Never Used Second Hand Smoke Exposure: No Advance Directives Date on File: 08/04/22 service: No Current occupational status: retired Cognitive needs: Yes (walker) Hearing needs: Yes (hearing aide) Vision needs: Yes (glasses) Review of Systems Const All systems reviewed & are unremarkable except as noted in HPI and below Physical Exam Vital Signs: Last Vital Signs Pulse 82 11/29/23 10:13 BP 90/52 L 11/29/23 10:13 Pulse Ox 97 11/29/23 10:13 BMI result Body Mass Index 32.8 APPEARANCE: Patient in no acute distress, nourished groomed EYES no redness, No temporal artery tenderness, redness or swelling EXTREMITIES: Bilateral +1 pitting edema, with calf tenderness and increased telangiectasis, normal peripheral pulses. SKIN: Petechiae and telangiectasia to lower extremities starting from the knee down to the foot JOINT EXAM: Cervical Spine:? Full range of motion without pain; no tenderness. Thoracic Spine:?? No tenderness on palpation. Lumbar Spine:? Alignment normal.? Full range of motion, some pain with flexion, slight tenderness to palpation over lumbar spine. Hands:? LEFT:? There is puffiness across the MCPs but they are not tender. There is no flexor tendon triggering, thenar atrophy or sensory loss. There is slightly tender bony enlargement at the base of the thumb. There is mild bony enlargement with swelling at the 2nd through 5th PIP joints. There is slight tenderness at the 3rd PIP. There is some minimal bony enlargement at the PIP joints and the 2nd 3rd are slightly tender. Right: There is mild bony enlargement without tenderness at the thumb IP, all the PIP joints and the 2nd DIP and 3rd DIP joint. There is puffiness to the 2nd and 3rd PIP Joint. There is no MCP swelling or tenderness. Wrists: Normal pain-free range of motion without tenderness, swelling, increased warmth or erythema. Elbows: Normal pain-free range of motion without tenderness, swelling, increased warmth or erythema. Shoulders:? Right: Mild pain with extremes of normal range of motion. There is some minimal anterior tenderness without abductor weakness or adenopathy. Left: Full range of motion without pain. No tenderness, weakness, swelling, increased warmth or erythema. Hip bursa:? No tenderness. Knees:?? Normal pain-free range of motion without tenderness, swelling, increased warmth or erythema.? There is no effusion or crepitation Ankles: Normal pain-free range of motion without tenderness, swelling, increased warmth or erythema. Feet: Right: Normal pain-free range of motion with mild bony enlargement without tenderness at the 1st MTP. There is some slightly tender bony prominence at the proximal end of the 5th metatarsal. She has some mild heel tenderness and some slightly tender bony enlargement over the instep consistent with some osteoarthritis. Left: There is mild bony enlargement over the instep that slightly tender. She also has some slight bony enlargement with tenderness over the instep. There is some heel tenderness on the medial side. The 1st MTP has some minimal bony enlargement without tenderness. Other joints have no tenderness, swelling, increased warmth or erythema. ? Results Reviewed Results Reviewed: Laboratory Tests 08/29/23 14:39 WBC 8.0 RBC 3.13 L Hgb 10.3 L Hct 29.9 L ESR 12 Creatinine 1.21 Uric Acid 8.0 H AST 34 H ALT 35 H Alkaline Phosphatase 57 C-Reactive Protein 0.42 Total Protein 6.7 Albumin 4.3 COMPARISON: Bilateral hands 11/12/2020 TECHNIQUE: PA, lateral, and oblique views of the right and left hands FINDINGS: Right hand: The bones are intact. No fracture or dislocation. Alignment is anatomic. There is mild osteoarthritis at the IP joint of the thumb with joint space narrowing and osteophyte formation. There is a small cyst or erosion of the ulnar styloid and distal aspect of the radius. There are small erosions of the distal medial aspect of the proximal phalanges of the index middle and ring finger. Left hand: The bones are intact. No fracture or dislocation. Alignment is anatomic. There is osteoarthritis of the IP joint with joint space narrowing and osteophyte formation of the thumb. There is osteoarthritis of the DIP joint joint of the index finger and PIP joint of the middle finger. There is question of a small erosion or cyst of the radial styloid. There is some adjacent soft tissue calcification as well. It is possible this is related to old trauma. There is an erosion of the distal proximal phalangeal of the middle finger, and also the first and second metacarpal heads. XR/XR hand RT min 3V IMPRESSION: 1. Osteoarthritis of the IP joints and a few scattered IP joints of the fingers. 2. Small cyst or erosion of the right ulnar styloid. 3. Question small cyst or erosion of the left radial styloid. 4. Other erosions as described above. Assessment & Plan Assessment & Plan (1) Osteoarthritis of hands, bilateral: Code(s): M19.041 - Primary osteoarthritis, right hand; M19.042 - Primary osteoarthritis, left hand Category: Medical Qualifiers: Osteoarthritis type: primary Qualified Code(s): M19.041 - Primary osteoarthritis, right hand; M19.042 - Primary osteoarthritis, left hand (2) Long-term use of hydroxychloroquine: Comment: For RA since ?. 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 Around 2019 or 2020-January 2022 Plaquenil: Start date unknown ? Around 2019 or 2019 Oral methotrexate- January 2022 to present Code(s): M06.9 - Rheumatoid arthritis, unspecified Category: Medical Qualifiers: Rheumatoid arthritis location: multiple sites Rheumatoid factor presence: without rheumatoid factor Qualified Code(s): M06.09 - Rheumatoid arthritis without rheumatoid factor, multiple sites (5) Petechiae: Code(s): R23.3 - Spontaneous ecchymoses Category: Medical (6) Edema of lower extremity present on examination: Code(s): R60.0 - Localized edema Category: Medical Plan # RA: I do not think the synovitis from the rheumatoid arthritis is well controlled with current treatment. She has some bony enlargement in many joints in the hands and feet consistent with osteoarthritis. But I think the swelling at the PIP joints and puffiness at the MCP joints with tenderness when palpated is related to the RA. The patient says the enlarged knuckles do affect ability to knit and she is losing her dexterity. Her hand Xrays were not worse than 10/2020 imaging that showed the same erosions. At this point I will consider to add a bio DMARD and opt to increase the MTX to 8 pills and reassess. She still has tender PIP joints but the hand pain and swelling does have some underlying OA and there is some improvement from last visit. The uric acid( 8) is elevated but no gout flares and never had per patient. to assess for gout. #Lower Extremity: The bilateral +1 pitting edema is markedly improved. She has been elevating her feet more and was told by PCP that she has venous insuffciency but good circulation. #Long-term use: There is a mild increase in liver enzymes that I will continue to monitor. I think it is likely unrelated to MTX as she has been taking this does for a long time She denies side effects with methotrexate. She has a slight anemia, probably due to underlying iron deficiency that has been noted before as well as her CKD. We would recommend lab work for today and again 1 week before next visit in 4 months. #Osteopenia: Zoledronic acid next February 2024 for her osteopenia. I spent 350minutes evaluating patient, reviewing Chart, evaluating patient, documenting f/u 4 months Orders: Orders Erythrocyte Sedimentation Rate Today M06.09 - Rheumatoid arthritis without rheumatoid factor, multiple sites, Z79.631 - terminal computer operator (current) use of antimetabolite agent C Reactive Protein Today M06.09 - Rheumatoid arthritis without rheumatoid factor, multiple sites, Z79.631 - terminal computer operator (current) use of antimetabolite agent Comprehensive Met. Panel Today M06.09 - Rheumatoid arthritis without rheumatoid factor, multiple sites, Z79.631 - [facility] (current) use of antimetabolite agent Complete Blood Count Auto Diff Today M06.09 - Rheumatoid arthritis without rheumatoid factor, multiple sites, Z79.631 - [facility] (current) use of antimetabolite agent Medications: Changed From methotrexate sodium 15 mg (6 x 2.5 mg) PO QWEEK 77 tabs 0RF M06.09 - Rheumatoid arthritis without rheumatoid factor, multiple sites To methotrexate sodium 20 mg (8 x 2.5 mg) PO QWEEK 85 tabs 1RF M06.09 - Rheumatoid arthritis without rheumatoid factor, multiple sites Coding Level of Care Code Est Pt Level 4 (92159) Complex EM visit Add On G2211 Diagnoses Primary osteoarthritis of both hands M19.041; M19.042 Osteoarthritis type: primary Long-term use of hydroxychloroquine Z79.899 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
[2023-11-29 10:13] VITALS: BP 90/52; PULSE 82; O2SAT 97; BMI 32.8
== END 2023-11-29 11:00 | disposition home or self-care (01) ==
LOC: HO.RHE 09:49
PROVIDERS: PCP Internal Medicine; Visit Provider Nurse Practitioner Family
DX: M19.041 Primary osteoarthritis, right hand (principal); M19.042 Primary osteoarthritis, left hand; Z79.899 Other long term (current) drug therapy; M06.09 Rheumatoid arthritis without rheumatoid factor, multiple sites; R23.3 Spontaneous ecchymoses; R60.0 Localized edema
CPT/HCPCS: 99214; G2211

== ENCOUNTER → 2023-11-29 09:49 | Outpatient (BNVA) | payer MEDICARE, SELFPAY | PROVIDERS: PCP Internal Medicine; Visit Provider Nurse Practitioner Family | DX: M19.041 Primary osteoarthritis, right hand (principal); M19.042 Primary osteoarthritis, left hand; M06.09 Rheumatoid arthritis without rheumatoid factor, multiple sites; R23.3 Spontaneous ecchymoses; R60.0 Localized edema; Z79.899 Other long term (current) drug therapy | CPT/HCPCS: 36415; 80053; 85025; 85652; 86140; 99212 ==

== ENCOUNTER 2023-11-29 11:06 | Outpatient (REF) | payer MEDICARE, SELFPAY ==
[2023-11-29 13:22] LABS: MANUAL DIFF FLAG NO
[2023-11-29 13:35] LABS: Basophils Absolute Auto 0.1 X10*3/uL (0.0-0.2); Basophils Percent Auto 1.3 % (0-2); Eosinophils Absolute Auto 0.3 X10*3/uL (0.0-0.4); Eosinophils Percent Auto 3.7 % (0-4); Hematocrit 31.4 % (37.0-47.0); Imm Gran Abs Auto 0.03 X10*3/uL (0.00-0.03); Imm Gran Pct Auto 0.4 % (0.0-0.4); Lymphocytes Absolute Auto 1.3 X10*3/uL (1.2-4.9); Lymphocytes Percent Auto 15.7 % (20-40); Mean Corpuscular Hemoglobin 33.4 pg (27.0-33.0); Mean Corpuscular Volume 95.4 fL (80.0-98.0); Mean Platelet Volume 11.1 fL (9.4-12.3); Monocytes Absolute Auto 0.3 X10*3/uL (0.1-1.2); Monocytes Percent Auto 3.7 % (2-11); Neutrophils Absolute Auto 6.1 x10*3/uL (2.0-8.3); Neutrophils Percent Auto 75.2 % (45-73); Platelet Count 240 X10*3/uL (160-400); Red Blood Count 3.29 X10*6/uL (4.20-5.50); Red Cell Distribution Width 13.1 % (11.0-16.0); White Blood Count 8.2 X10*3/uL (4.8-10.8)
[2023-11-29 13:47] LABS: Alanine Aminotransferase 35 U/L (0-31); Albumin Level 4.2 g/dL (3.5-5.0); Alkaline Phosphatase 56 U/L (39-117); Anion Gap 12 (12-20); Aspartate Amino Transferase 31 U/L (5-31); Bilirubin Total 0.8 mg/dL (0.0-1.0); Blood Urea Nitrogen 32 mg/dL (9-16); C Reactive Protein 0.39 mg/dL (< or = 0.50); Calcium 10.2 mg/dL (8.4-10.2); Carbon Dioxide 30 mmol/L (22-29); Chloride 105 mmol/L (96-108); Estimated Glomerular Filt Rate 44; Glucose Random 82 mg/dL (60-115); Sodium 143 mmol/L (135-145); Total Protein 6.7 g/dL (6.5-8.0)
[2023-11-29 14:20] LABS: Erythrocyte Sedimentation Rate 9 MM/HR (0-20)
== END 2023-11-29 11:07 | disposition home or self-care (01) ==
LOC: HO.10HDL 11:06
PROVIDERS: Visit Provider Nurse Practitioner Family
DX: Z13.89 Encounter for screening for other disorder (principal)
CPT/HCPCS: 36415; 80053; 85025; 85652; 86140

== ENCOUNTER 2024-01-17 09:39 | Outpatient (AMB) | payer MEDICARE, SELFPAY ==
--- NOTE | 2024-01-17 09:54 | A.OFFVIS_ITS ---
Vital Signs 01/17/24 09:55 Height 4 ft 10 in Weight 152 lb 1.903 oz BMI 31.8 BP 110/72 Blood Pressure Location Lt brachial Position Sitting Pulse 73 Intake Visit Reasons: 6 mth s/p echo Intake Note: 6 month follow-up after echo with [facility] Correspondence Renew Clerk Required: No Allergies duloxetine Allergy (Severe, Verified 01/02/24 09:19) LOOPY codeine [CODEINE] Allergy (Intermediate, Verified 01/02/24 09:19) GI UPSET doxycycline [DOXYCYCLINE] Allergy (Intermediate, Verified 01/02/24 09:19) RASH Sulfa (Sulfonamide Antibiotics) [SULFA (SULFONAMIDE ANTIBIOTICS)] Allergy (Intermediate, Verified 01/02/24 09:19) Hives Medication List - Last Reconciled 01/17/24 by Jose Perez MD albuterol sulfate 90 mcg/actuation (ProAir HFA) 2 puffs inhalation Q4-6H PRN 30 days ammonium lactate 12% 12 appl topical BID aspirin 81 mg PO DAILY atorvastatin 20 mg PO DAILY betamethasone valerate 0.1% 1 appl topical BID PRN blood sugar diagnostic (Qorus SoftwareTouch Ultra Test strips) As directed 3x daily cholecalciferol (vitamin D3) (Vitamin D3) 4,000 units PO DAILY famotidine 40 mg PO BID ferrous sulfate 325 mg PO DAILY fluticasone propionate 50 mcg/actuation 2 sprays intranasal DAILY folic acid 1 mg PO DAILY furosemide 20 mg PO DAILY gabapentin 600 mg PO TID hydroxychloroquine 200 mg PO BID insulin glargine (Lantus Solostar U-100 Insulin) 70 units (0.7 mL) subcut BEDTIME 30 days insulin lispro (Humalog Kervin KwikPen (U-100)) 1 sliding scale dose subcut USEASDIRECTD insulin syringe-needle U-100 As directed ketoconazole 2% 1 appl topical BID lamotrigine 50 mg PO BID lidocaine 5% 1 patch topical DAILY lisinopril-hydrochlorothiazide 10-12.5 mg 1 tab PO DAILY 90 days loperamide 2 mg PO TID methotrexate sodium 20 mg (8 x 2.5 mg) PO QWEEK metronidazole 1% 1 appl topical DAILY oxybutynin chloride ER 10 mg PO DAILY pen needle, diabetic (BD [place] 2nd Gen Pen Needle) As directed krish As directed zoledronic [id number] 5 mg/100 mL (Reclast) 5 ea IV ONCE HPI Comments Details: Kriss comes for follow-up. She has had as per the neurologist increased neurologic lesions consistent with silent strokes as per her. This is affecting her balance. She said that she is taking all medications for it. She denies any prolonged palpitation irregular heartbeat. Pacer telemetry does not show any sustained atrial fibrillation. She can not walk long distance because of her balance. She does walk with help of a walker. No falls. Denies any orthopnea, PND, leg edema. No lightheadedness, syncope. No exertional chest pain. Taking all her medications regularly. 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 Edema of lower extremity present on examination Petechiae predatory animal exterminator use of drug Osteoarthritis of hands, bilateral Irritable bowel syndrome with diarrhea Rheumatoid arthritis Pacemaker TIA (transient ischemic attack) Dysphagia Spinal stenosis COVID COVID-19 Laryngopharyngeal reflux (LPR) Asthma Rotator cuff tendinitis Post-menopausal Polyarthralgia Dyspnea on exertion Allergic rhinitis Bronchitis Asthma exacerbation Cough variant asthma DJD (degenerative joint disease) Decreased hearing GERD (gastroesophageal reflux disease) Type 2 diabetes 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s Surgical History S/P placement of cardiac pacemaker History of esophagogastroduodenoscopy (EGD) History of colonoscopy Hx of cholecystectomy Hx of tonsillectomy Hx of hysterectomy Family History Father CVD (cardiovascular disease) Diabetes Mother Diabetes Sister No problems noted. Other Substance use disorder Social History Household Members: Family and None Housing: House Are you a primary long term acute care registered nurse to a significant other at home: No Do you presently have visiting nurse or other home services: No Alcohol intake: former Comment: WITHIN LAST MONTH Patient Tobacco Use Status: Never used Tobacco e-Cigarette/Vaping Use: Never Used Second Hand Smoke Exposure: No Advance Directives Date on File: 08/04/22 service: No Current occupational status: retired Cognitive needs: Yes (walker) Hearing needs: Yes (hearing aide) Vision needs: Yes (glasses) Review of Systems Const Denies chills, Denies fatigue, Denies fever(s), Denies frequent falls, Denies weakness, Denies weight gain and Denies weight loss ENT Denies dizziness Card Denies chest pain, Denies leg edema, Denies lightheadedness, Denies palpitations, Denies dyspnea, Denies dyspnea on exertion, Denies orthopnea and Denies other (loss of consciousness) Resp Denies cough, Denies dyspnea and Denies dyspnea on exertion GI Denies hematochezia and Denies change in stool character Musc Denies abnormal gait, Denies muscle weakness, Denies numbness, Denies radiating pain into limb and Denies tingling Neuro Denies Abnormal speech present, Denies abnormal gait, Denies dizziness, Denies frequent falls, Denies numbness, Denies tingling and Denies weakness Endo Denies fatigue and Denies palpitations Physical Exam Vital Signs: Last Vital Signs Pulse 73 01/17/24 09:55 BP 110/72 01/17/24 09:55 BMI result Body Mass Index 31.8 Const General: cooperative, comfortable, no acute distress, alert, awake and well groomed Nutritional Appearance: overweight Orientation/consciousness: patient oriented x3 Limitations: ambulation with walker Neck Neck: Yes trachea midline, Yes supple and Yes no JVD Resp Effort & Inspection: normal respiratory effort Auscultation: clear to auscultation bilaterally Cardio Jugular venous distension: no JVD Palpation: normal PMI Rate: regular rate Rhythm: regular rhythm Heart sounds: S1 normal heart sound present, S2 normal heart sound present, no click, no gallops, no murmurs and no rubs Bruits: no carotid bruits Neuro General: patient oriented x3 and no focal motor deficits Speech: No Abnormal speech present Extrem General: Yes no clubbing, cyanosis or edema Office Procedures Cardiac Device Check Cardiac Device Check Details: Dual-chamber [place] pacemaker in place. Programmed in DDDR at 60 beats per minute. Atrial pacing 11% of time. Ventricularly pacer dependent. Atrial ventricular pacing thresholds are adequate and in auto capture mode. Atrial sensing is excellent. Pacing lead impedance is stable. Battery life is excellent about 9 years. One brief episode of atrial tachycardia noted. No episodes of atrial fibrillation. [id number] Cardiac Device Check, pacemaker dual lead Procedure code (CPT) selection complete Assessment & Plan Assessment & Plan (1) Pacemaker: Code(s): Z95.0 - Presence of cardiac pacemaker Category: Medical Plan: Cardiac pacemaker in-situ for complete heart block. Patient pacer dependent in the ventricle. No significant arrhythmias detected. Pacemaker function is adequate. Will follow up every 3 months remotely. Last echocardiogram showed LVEF of 53%. Will follow-up echocardiogram to rule out development of pacer induced cardiomyopathy. This will be performed in near future. Continue lisinopril therapy. (2) HTN (hypertension): Code(s): I10 - Essential (primary) hypertension Category: Medical Plan: Hypertension which is currently well optimized advised to monitor blood pressure at home maintain a log. Goal blood pressure less than 130/80. Continue aggressive diabetes management goal hemoglobin A1c less than 7%. Goal LDL less than 70 mg/dL given her neurologic events and microangiopathy. Will follow up in the clinic in 6 months time, sooner p.r.n.. Thank you for allowing me to partake in her care Orders: Orders CA echo transthoracic complete Today Z95.0 - Presence of cardiac pacemaker Coding Level of Care Code Est Pt Level 4 (77925) Diagnoses Pacemaker Z95.0 HTN (hypertension) I10 CPT Codes Cardiac Device Check - Cardiac Device 2: [id number] Cardiac Device Check, pacemaker dual lead ([id number])
[2024-01-17 09:55] VITALS: BP 110/72; PULSE 73; BMI 31.8
== END 2024-01-17 10:28 | disposition home or self-care (01) ==
PROVIDERS: PCP Internal Medicine; Visit Provider Internal Medicine Cardiovascular Disease
DX: I10 Essential (primary) hypertension (principal); Z95.0 Presence of cardiac pacemaker
CPT/HCPCS: 93280; 99214

== ENCOUNTER → 2024-01-17 09:39 | Outpatient (BNVA) | payer MEDICARE, SELFPAY | PROVIDERS: PCP Internal Medicine; Visit Provider Internal Medicine Cardiovascular Disease | DX: I10 Essential (primary) hypertension (principal); Z45.010 Encounter for checking and testing of cardiac pacemaker pulse generator [battery] | CPT/HCPCS: 93280; 99212 ==

== ENCOUNTER 2024-01-18 08:45 | Outpatient (AMB) | payer MEDICARE, SELFPAY ==
[2024-01-18 08:49] VITALS: BP 109/49; BMI 31.9
--- NOTE | 2024-01-18 08:49 | MHC.OFFVIS ---
Vital Signs 01/18/24 08:49 Height 4 ft 10 in Weight 152 lb 8.958 oz BMI 31.9 BP 109/49 L Blood Pressure Location Rt brachial Position Sitting Intake Visit Reasons: 6 month follow up Intake Note: Kriss returns to in office 6 months follow up of IBS and dysphagia. CC: Patient reports occasional diarrhea, denies having any new GI concerns today. Weight Loss Sales Consultant Required: No Allergies duloxetine Allergy (Severe, Verified 03/14/24 09:16) LOOPY codeine [CODEINE] Allergy (Intermediate, Verified 03/14/24 09:16) GI UPSET doxycycline [DOXYCYCLINE] Allergy (Intermediate, Verified 03/14/24 09:16) RASH Sulfa (Sulfonamide Antibiotics) [SULFA (SULFONAMIDE ANTIBIOTICS)] Allergy (Intermediate, Verified 03/14/24 09:16) Hives HPI HPI 6 month follow up: Details: Assessment & Plan (1) Post-cholecystectomy syndrome: Code(s): K91.5 - Postcholecystectomy syndrome (2) Dysphagia: Code(s): R13.10 - Dysphagia, unspecified (3) GERD (gastroesophageal reflux disease): Code(s): K21.9 - Gastro-esophageal reflux disease without esophagitis Qualifiers: Esophagitis presence: without esophagitis Qualified Code(s): K21.9 - Gastro-esophageal reflux disease without esophagitis Plan She still will have occasional troubles if she drinks water too quickly or randomly, but overall her swallowing is improved. She tolerated the procedure and the dilation well. She still has episodes of hoarse voice with variable levels, that she does not clearly connect to her GERD. She has not seen an ENT about this. She seed Dr. Tabares, so I encourage her to speak to this provider about this as this is an ENT. She continues on her loperamide for her diarrhea, and her famotidine for her GERD. She has some trouble with her appetite as gerardo is getting older, she does not like meat, can only eat hard boiled eggs, likes pork fried rice, peanut butter and CHIPS. She says I have been a Godsend to her, as I have helped her with her GI problems, and with her OAB with the oxybutinin. rov 6 MOS. TODAY'S VISIT She continues to have trouble with losing her voice on and off. She has seen ENT in the past and did speech threrapy, but she also has some episodes of regurg and HB. She also does not like the taste of certain foods. Since she is only on famotidine, we will try switching her to aciphex bid. She also has some dysphagia with her dysphonia, but she also has some intermittent aphasia and she has been told she has had strokes seen on changes on her MRI. She was taken off of iron because of an elevated ferritin (? actually a thalessemia given she says she has had anemia since childhood and her mother as well), and now she is using more imodium for her diarrhea. I let her know I can consider other medication if the imodium stops working. ROV 6 mos. 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 Edema of lower extremity present on examination Petechiae correction use of drug Osteoarthritis of hands, bilateral Irritable bowel syndrome with diarrhea Rheumatoid arthritis Pacemaker TIA (transient ischemic attack) Dysphagia Spinal stenosis COVID COVID-19 Laryngopharyngeal reflux (LPR) Asthma Rotator cuff tendinitis Post-menopausal Polyarthralgia Dyspnea on exertion Allergic rhinitis Bronchitis Asthma exacerbation Cough variant asthma DJD (degenerative joint disease) Decreased hearing GERD (gastroesophageal reflux disease) Type 2 diabetes 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s Surgical History S/P placement of cardiac pacemaker History of esophagogastroduodenoscopy (EGD) History of colonoscopy (~09/05/21) Hx of cholecystectomy Hx of tonsillectomy Hx of hysterectomy Family History Father CVD (cardiovascular disease) Diabetes Mother Diabetes Sister No problems noted. Other Substance use disorder Social History Household Members: Family and None Housing: House Are you a primary care management coordinator to a significant other at home: No Do you presently have visiting nurse or other home services: No Alcohol intake: former Comment: WITHIN LAST MONTH Patient Tobacco Use Status: Never used Tobacco e-Cigarette/Vaping Use: Never Used Second Hand Smoke Exposure: No Advance Directives Date on File: 08/04/22 service: No Current occupational status: retired Cognitive needs: Yes (walker) Hearing needs: Yes (hearing aide) Vision needs: Yes (glasses) Review of Systems Const Denies fatigue, Denies fever(s), Denies night sweats, Denies poor appetite and Denies weight loss Eyes Details: glasses Reports requires corrective lenses ENT Reports Normal hearing present, Denies dental pain, Reports dysphagia, Denies hearing loss, Reports hoarseness, Reports mouth pain, Denies odynophagia, Reports disequilibrium, Denies throat swelling, Denies tongue swelling and Reports other (Dentition adequate) Card Reports no additional complaints Resp Reports no additional complaints GI Details: Denies abdominal pain, Denies melena, Denies bloating, Denies hematochezia, Denies constipation, Denies GI cramping, Reports dysphagia, Denies excessive flatus, Denies early satiety, Reports heartburn, Reports diarrhea, Denies nausea, Denies odynophagia, Denies vomiting and Denies hematemesis Musc Reports abnormal gait, Reports myalgias and Reports limited range of motion Skin/Breast Denies pruritus, Denies lesions, Denies rash and Denies jaundice Neuro Reports Normal hearing present, Denies Abnormal speech present, Reports abnormal gait and Reports disequilibrium Endo Denies fatigue Aller/Immun Denies throat swelling and Denies tongue swelling Physical Exam Vital Signs: Last Vital Signs BP 109/49 L 01/18/24 08:49 BMI result Body Mass Index 31.9 Const General: cooperative, no acute distress, well developed and well groomed Nutritional Appearance: well nourished and overweight Orientation/consciousness: oriented to person, oriented to place and oriented to time Limitations: No language barrier and ambulation with walker HEENT Head: Yes normocephalic and Yes atraumatic Eyes General: appearance normal, both eyes and all related structures Pupils: Equal, round and reactive pupils present Neck Neck: Yes normal visual inspection and Yes no lymphadenopathy Thyroid: Thyroid normal Resp Effort & Inspection: normal respiratory effort and able to speak in complete sentences Auscultation: clear to auscultation bilaterally Cardio Rate: regular rate Rhythm: regular rhythm Heart sounds: Normal, physiologic split S2 sound present Peripheral pulses: radial pulses present and posterior tibial pulses present GI Inspection: No distended and No Abdominal panniculus present Palpation (GI): Soft to palpation, nontender, no guarding, not rigid and No hepatosplenomegaly present Percussion: Yes normal to percussion Auscultation: normal bowel sounds Rectal Exam - Female: deferred Skin General skin exam: no rashes or lesions noted, turgor normal, skin not dry, no jaundice, No spider nevi and no striae Rashes: no rashes Nails: normal Neuro General: oriented to person, oriented to place and oriented to time Cranial nerves: Yes Equal, round and reactive pupils present and Yes Normal hearing present Speech: No Abnormal speech present Extrem General: Yes normal to inspection, No clubbing, No cyanosis and No edema Psych Appearance: grossly normal and well kempt Mental Status: mental status grossly normal Speech and movement: Normal speech and movement present Affect: normal affect Attitude: cooperative Thought process: Normal thought process present and not confabulating Thought content: Normal thought content present Insight: Limited insight present (Psych) Judgement: Limited judgement present (Psych) Assessment & Plan Assessment & Plan (1) Post-cholecystectomy syndrome: Code(s): K91.5 - Postcholecystectomy syndrome Category: Medical (2) GERD (gastroesophageal reflux disease): Code(s): K21.9 - Gastro-esophageal reflux disease without esophagitis Category: Medical Qualifiers: Esophagitis presence: without esophagitis Qualified Code(s): K21.9 - Gastro-esophageal reflux disease without esophagitis Plan She continues to have trouble with losing her voice on and off. She has seen ENT in the past and did speech threrapy, but she also has some episodes of regurg and HB. She also does not like the taste of certain foods. Since she is only on famotidine, we will try switching her to aciphex bid. She also has some dysphagia with her dysphonia, but she also has some intermittent aphasia and she has been told she has had strokes seen on changes on her MRI. She was taken off of iron because of an elevated ferritin (? actually a thalessemia given she says she has had anemia since childhood and her mother as well), and now she is using more imodium for her diarrhea. I let her know I can consider other medication if the imodium stops working. ROV 6 mos. Medications: New rabeprazole (AcipHex) 20 mg PO BID 60 tabs 6RF K21.9 - Gastro-esophageal reflux disease without esophagitis On Hold famotidine Hold Comment: Doctor's Order 40 mg PO BID 180 tabs 0RF K21.9 - Gastro-esophageal reflux disease without esophagitis, K22.10 - Ulcer of esophagus without bleeding famotidine Hold Comment: Doctor's Order 40 mg PO TID 270 tabs 1RF K21.9 - Gastro-esophageal reflux disease without esophagitis, K22.10 - Ulcer of esophagus without bleeding famotidine Hold Comment: Doctor's Order 40 mg PO BID 180 tabs 0RF K21.9 - Gastro-esophageal reflux disease without esophagitis, K22.10 - Ulcer of esophagus without bleeding Coding Level of Care Code Est Pt Level 3 (51978) Diagnoses Post-cholecystectomy syndrome K91.5 Gastroesophageal reflux disease without esophagitis K21.9 Esophagitis presence: without esophagitis
== END 2024-01-18 09:24 | disposition home or self-care (01) ==
PROVIDERS: PCP Internal Medicine; Visit Provider Nurse Practitioner
DX: K91.5 Postcholecystectomy syndrome (principal); K21.9 Gastro-esophageal reflux disease without esophagitis
CPT/HCPCS: 99213

== ENCOUNTER → 2024-01-18 08:45 | Outpatient (BNVA) | payer MEDICARE, SELFPAY | PROVIDERS: PCP Internal Medicine; Visit Provider Nurse Practitioner | DX: K58.9 Irritable bowel syndrome, unspecified (principal); K91.5 Postcholecystectomy syndrome; K21.9 Gastro-esophageal reflux disease without esophagitis; K22.10 Ulcer of esophagus without bleeding; R47.02 Dysphasia | CPT/HCPCS: 99212 ==

== ENCOUNTER → 2024-02-04 23:59 | Outpatient (BNV) | payer MEDICARE, SELFPAY ==
--- NOTE | 2024-02-11 14:34 | MHC.OFFVIS ---
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 use of drug Osteoarthritis of hands, bilateral Irritable bowel syndrome with diarrhea Rheumatoid arthritis Pacemaker TIA (transient ischemic attack) Dysphagia Spinal stenosis COVID COVID-19 Laryngopharyngeal reflux (LPR) Asthma Rotator cuff tendinitis Post-menopausal Polyarthralgia Dyspnea on exertion Allergic rhinitis Bronchitis Asthma exacerbation Cough variant asthma DJD (degenerative joint disease) Decreased hearing GERD (gastroesophageal reflux disease) Type 2 diabetes 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s Surgical History S/P placement of cardiac pacemaker History of esophagogastroduodenoscopy (EGD) History of colonoscopy Hx of cholecystectomy Hx of tonsillectomy Hx of hysterectomy Family History Father CVD (cardiovascular disease) Diabetes Mother Diabetes Sister No problems noted. Other Substance use disorder Social History Household Members: Family and None Housing: House Are you a primary in home caregiver to a significant other at home: No Do you presently have visiting nurse or other home services: No Alcohol intake: former Comment: WITHIN LAST MONTH Patient Tobacco Use Status: Never used Tobacco e-Cigarette/Vaping Use: Never Used Second Hand Smoke Exposure: No Advance Directives Date on File: 08/04/22 service: No Current occupational status: retired Cognitive needs: Yes (walker) Hearing needs: Yes (hearing aide) Vision needs: Yes (glasses) Office Procedures Cardiac Device Check Cardiac Device Check Details: Remote pacemaker report generated 02/04/2024. Pacemaker function is adequate. Patient ventricularly pacer dependent [id number] Cardiac Device Interrogation, pacemaker Procedure code (CPT) selection complete Assessment & Plan Assessment & Plan (1) Pacemaker: Code(s): Z95.0 - Presence of cardiac pacemaker Category: Medical Plan: See above Medications: Resumed famotidine 40 mg PO BID 180 tabs 0RF K21.9 - Gastro-esophageal reflux disease without esophagitis, K22.10 - Ulcer of esophagus without bleeding famotidine 40 mg PO BID 180 tabs 0RF K21.9 - Gastro-esophageal reflux disease without esophagitis, K22.10 - Ulcer of esophagus without bleeding Coding Level of Care Code Procedure Only Diagnoses Pacemaker Z95.0 CPT Codes Cardiac Device Check - Cardiac Device 12: [id number] Cardiac Device Interrogation, pacemaker ([id number])
== END ==
PROVIDERS: PCP Internal Medicine; Visit Provider Internal Medicine Cardiovascular Disease
DX: Z45.018 Encounter for adjustment and management of other part of cardiac pacemaker (principal)
CPT/HCPCS: 93294

== ENCOUNTER 2024-02-05 10:39 | Outpatient (AMB) | payer MEDICARE, SELFPAY ==
--- NOTE | 2024-02-05 10:43 | MHC.OFFVIS ---
Vital Signs 02/05/24 10:45 Height 4 ft 10 in Weight 152 lb 8.958 oz BMI 31.9 BP 128/68 Blood Pressure Location Lt brachial Position Sitting Pulse 70 Intake Visit Reasons: Follow up swelling tongue Intake Note: Patient in office today for concerns about medication. CC: Patient c/o swollen taste buds and tongue, she reports ulcers inside her mouth, and very dry mouth. She reports onset of symptoms when she started taking the Aciphex. She also reports having some trouble swallowing sometimes but this has been going on for a while. Digital Proofing And Platemaker Required: No Accompanied by: Self / Same As Patient Allergies duloxetine Allergy (Severe, Verified 02/05/24 11:02) LOOPY codeine [CODEINE] Allergy (Intermediate, Verified 02/05/24 11:02) GI UPSET doxycycline [DOXYCYCLINE] Allergy (Intermediate, Verified 02/05/24 11:02) RASH Sulfa (Sulfonamide Antibiotics) [SULFA (SULFONAMIDE ANTIBIOTICS)] Allergy (Intermediate, Verified 02/05/24 11:02) Hives HPI HPI Follow up swelling tongue : Details: Assessment & Plan (1) Post-cholecystectomy syndrome: Code(s): K91.5 - Postcholecystectomy syndrome (2) Dysphagia: Code(s): R13.10 - Dysphagia, unspecified (3) GERD (gastroesophageal reflux disease): Code(s): K21.9 - Gastro-esophageal reflux disease without esophagitis Qualifiers: Esophagitis presence: without esophagitis Qualified Code(s): K21.9 - Gastro-esophageal reflux disease without esophagitis Plan She still will have occasional troubles if she drinks water too quickly or randomly, but overall her swallowing is improved. She tolerated the procedure and the dilation well. She still has episodes of hoarse voice with variable levels, that she does not clearly connect to her GERD. She has not seen an ENT about this. She seed Dr. Tabares, so I encourage her to speak to this provider about this as this is an ENT. She continues on her loperamide for her diarrhea, and her famotidine for her GERD. SHe has some trouble with her appetite as gerardo is getting older, she does not like meat, can only eat hard boiled eggs, likes pork fried rice, peanut butter and CHIPS. She says I have been a Godsend to her, as I have helped her with her GI problems, and with her OAB with the oxybutinin. rov 6 MOS. TODAY'S VISIT She developed severe mouth pain and dry lips and mouth. She also has trouble swallowing since starting the rabeprazole. She stopped the rabeprazole which is reasonable. She only stopped it for 1 day. She continues to have severe symptoms. She does not have a white tongue but it does appear somewhat reddened and irritated. I am not sure whether it is irritated due to an allergic reaction/side effect the rabeprazole or whether there is some sort of a Lexi co infection for reasons that are unclear. I think will start her on nystatin swish and swallow to see if this resolves the pain and if it does not we will then progress to a swallowed steroid. I am reluctant to start/lead with the steroid because if it is Lexi this would severely worsen her pain and her trouble swallowing. Will put her back on famotidine twice a day for now as this has some antihistamine effects and did agree with her well. She expressed some concern about an interaction with methotrexate, but this is actually a problem universal to proton pump inhibitors and in fact worse with omeprazole and not specific to rabeprazole and she certainly did not have any of the main side effects of methotrexate such as nausea or vomiting. She already has trouble with taste since she had COVID so we want to encourage her to eat and not to have to contend with pain as this only makes things much worse. The DDX remains wide, she also has some evidence of lesions that are apthous-like appearing so viral etiology not ruled out. ROV 2 weeks. 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 Edema of lower extremity present on examination Petechiae longterm use of drug Osteoarthritis of hands, bilateral Irritable bowel syndrome with diarrhea Rheumatoid arthritis Pacemaker TIA (transient ischemic attack) Dysphagia Spinal stenosis COVID COVID-19 Laryngopharyngeal reflux (LPR) Asthma Rotator cuff tendinitis Post-menopausal Polyarthralgia Dyspnea on exertion Allergic rhinitis Bronchitis Asthma exacerbation Cough variant asthma DJD (degenerative joint disease) Decreased hearing GERD (gastroesophageal reflux disease) Type 2 diabetes 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s Surgical History S/P placement of cardiac pacemaker History of esophagogastroduodenoscopy (EGD) History of colonoscopy Hx of cholecystectomy Hx of tonsillectomy Hx of hysterectomy Family History Father CVD (cardiovascular disease) Diabetes Mother Diabetes Sister No problems noted. Other Substance use disorder Social History Household Members: Family and None Housing: House Are you a primary workforce investment act career manager to a significant other at home: No Do you presently have visiting nurse or other home services: No Alcohol intake: former Comment: WITHIN LAST MONTH Patient Tobacco Use Status: Never used Tobacco e-Cigarette/Vaping Use: Never Used Second Hand Smoke Exposure: No Advance Directives Date on File: 08/04/22 service: No Current occupational status: retired Cognitive needs: Yes (walker) Hearing needs: Yes (hearing aide) Vision needs: Yes (glasses) Review of Systems Const Denies fatigue, Denies fever(s), Denies night sweats, Reports poor appetite and Denies weight loss Eyes Details: Glasses Reports requires corrective lenses ENT Reports Normal hearing present, Reports change in voice, Reports dysphagia, Reports dry mouth, Reports mouth lesions, Reports mouth pain, Denies odynophagia, Denies throat swelling and Denies tongue swelling Card Reports no additional complaints Resp Reports no additional complaints GI Details: Denies abdominal pain, Denies melena, Denies bloating, Denies hematochezia, Denies constipation, Denies GI cramping, Reports dysphagia, Denies excessive flatus, Denies early satiety, Reports heartburn, Denies diarrhea, Denies nausea, Denies odynophagia, Denies vomiting and Denies hematemesis Skin/Breast Denies pruritus, Denies lesions, Denies rash and Denies jaundice Neuro Reports Normal hearing present and Denies Abnormal speech present Endo Denies fatigue Aller/Immun Denies throat swelling and Denies tongue swelling Physical Exam Vital Signs: Last Vital Signs Pulse 70 02/05/24 10:45 BP 128/68 02/05/24 10:45 BMI result Body Mass Index 31.9 Const General: cooperative, no acute distress, well developed and well groomed Nutritional Appearance: well nourished and overweight Orientation/consciousness: oriented to person, oriented to place and oriented to time Limitations: No language barrier and ambulation with walker HEENT Head: Yes normocephalic and Yes atraumatic Mouth: moist mucous membranes abnormal (reddened but no white coating) Eyes General: appearance normal, both eyes and all related structures Pupils: Equal, round and reactive pupils present Neck Neck: Yes normal visual inspection and Yes no lymphadenopathy Thyroid: Thyroid normal Resp Effort & Inspection: normal respiratory effort and able to speak in complete sentences Auscultation: clear to auscultation bilaterally Cardio Rate: regular rate Rhythm: regular rhythm Heart sounds: Normal, physiologic split S2 sound present Peripheral pulses: radial pulses present and posterior tibial pulses present GI Inspection: No distended, No Abdominal panniculus present and Yes obesity Palpation (GI): Soft to palpation, nontender, no guarding, not rigid and No hepatosplenomegaly present Percussion: Yes normal to percussion Auscultation: normal bowel sounds Rectal Exam - Female: deferred Skin General skin exam: no rashes or lesions noted, turgor normal, skin not dry, no jaundice, No spider nevi and no striae Rashes: no rashes Nails: normal Neuro General: oriented to person, oriented to place and oriented to time Cranial nerves: Yes Equal, round and reactive pupils present and Yes Normal hearing present Speech: No Abnormal speech present Extrem General: Yes normal to inspection, No clubbing, No cyanosis and No edema Psych Appearance: grossly normal and well kempt Mental Status: mental status grossly normal Speech and movement: Normal speech and movement present Affect: normal affect Attitude: cooperative Thought process: Normal thought process present and not confabulating Thought content: Normal thought content present Insight: Fair insight present (Psych) Judgement: Fair judgement present (Psych) Assessment & Plan Assessment & Plan (1) Lexi infection of mouth: Code(s): B37.0 - Candidal stomatitis Category: Medical Plan She developed severe mouth pain and dry lips and mouth. She also has trouble swallowing since starting the rabeprazole. She stopped the rabeprazole which is reasonable. She only stopped it for 1 day. She continues to have severe symptoms. She does not have a white tongue but it does appear somewhat reddened and irritated. I am not sure whether it is irritated due to an allergic reaction/side effect the rabeprazole or whether there is some sort of a Lexi co infection for reasons that are unclear. I think will start her on nystatin swish and swallow to see if this resolves the pain and if it does not we will then progress to a swallowed steroid. I am reluctant to start/lead with the steroid because if it is Lexi this would severely worsen her pain and her trouble swallowing. Will put her back on famotidine twice a day for now as this has some antihistamine effects and did agree with her well. She expressed some concern about an interaction with methotrexate, but this is actually a problem universal to proton pump inhibitors and in fact worse with omeprazole and not specific to rabeprazole and she certainly did not have any of the main side effects of methotrexate such as nausea or vomiting. She already has trouble with taste since she had COVID so we want to encourage her to eat and not to have to contend with pain as this only makes things much worse. The DDX remains wide, she also has some evidence of lesions that are apthous-like appearing so viral etiology not ruled out. ROV 2 weeks. Medications: New nystatin swish and swallow 10 mL PO TID 473 mL 1RF B37.0 - Candidal stomatitis Discontinued rabeprazole (AcipHex) Discontinued Reason: Patient no longer taking 20 mg PO BID 60 tabs 6RF K21.9 - Gastro-esophageal reflux disease without esophagitis Resumed famotidine 40 mg PO BID 180 tabs 0RF K21.9 - Gastro-esophageal reflux disease without esophagitis, K22.10 - Ulcer of esophagus without bleeding famotidine 40 mg PO BID 180 tabs 0RF K21.9 - Gastro-esophageal reflux disease without esophagitis, K22.10 - Ulcer of esophagus without bleeding Coding Level of Care Code Est Pt Level 3 (70237) Diagnoses Lexi infection of mouth B37.0
[2024-02-05 10:45] VITALS: BP 128/68; PULSE 70; BMI 31.9
== END 2024-02-05 11:49 | disposition home or self-care (01) ==
PROVIDERS: PCP Internal Medicine; Visit Provider Nurse Practitioner
DX: B37.0 Candidal stomatitis (principal)
CPT/HCPCS: 99213

== ENCOUNTER → 2024-02-05 10:39 | Outpatient (BNVA) | payer MEDICARE, SELFPAY | PROVIDERS: PCP Internal Medicine; Visit Provider Nurse Practitioner | DX: B37.0 Candidal stomatitis (principal) | CPT/HCPCS: 99212 ==

== ENCOUNTER → 2024-02-15 09:59 | Outpatient (REF) | payer MEDICARE, SELFPAY ==
--- NOTE | 2024-02-15 10:01 | CA_ITS ---
Transthoracic Echocardiogram Patient (Last, First, Middle): Kriss Jackson A Gender: Female Date of : 1950 Age: 73 Procedure Date: 02/15/2024 Procedure Type: Transthoracic Echocardiogram Location: OP Height: 144.78 cm Weight: 68.04 kg BSA: 1.59 m2 Heart Rate: bpm BP: 98 / 50 mmHg Tire Changer: TO Referring MD: Jose Perez MD Symptoms: Z95.0 - Presence of cardiac pacemaker Study Quality: Adequate w contrast Conclusions: - Normal left ventricular size, thickness, systolic function, and wall motion. The visually estimated ejection fraction is between 55-60%. - Normal right ventricular cavity size and systolic function. Findings Procedure Information Contrast agent, definity, is being given per protocol without apparent complications. Left Ventricle Normal left ventricular size, thickness, systolic function, and wall motion. The visually estimated ejection fraction is between 55-60%. There is no evidence of regional wall motion abnormalities. There is paradoxical septal motion consistent with a right ventricular pacemaker. Diastolic function is indeterminate on the basis of available data. Right Ventricle Normal right ventricular cavity size and systolic function. Atria The left atrium is normal in size. The right atrium is normal in size. Mitral Valve The mitral valve appears normal. There is trace mitral valve regurgitation. There is no mitral valve stenosis. Pulmonic Valve The pulmonic valve is normal. There is no pulmonic valve regurgitation. Tricuspid Valve Normal tricuspid valve structure. There is no tricuspid valve regurgitation. Normal right atrial pressure. There is no evidence of pulmonary hypertension. Great Vessels All visible segments of the aorta are normal in size. The visualized portions of the pulmonary artery and branches are normal. Venous The inferior vena cava is normal in size and collapses greater than 50% with inspiration. Pericardium/Pleural There is no evidence of pericardial effusion. Prior Study Comparison Changes noted compared to prior study dated: 11/03/2022. EF 55-60%, normal RV function. Measurements 2D Linear Measurements IVSd: 1.03 0.6-0.9/0.6-1.0 cm LVIDd: 4.06 3.9-5.3/4.2-5.9 cm LVIDd Index: 2.55 2.4-3.2/2.2-3.1 cm/m2 LVIDs: 2.30 2.0-3.6 cm LVPWd: 0.73 0.7-1.1 cm LA Diam: 3.20 2.7-3.8/3.0-4.0 cm LAIDs Index: 2.01 1.5-2.3 cm/m2 LV Mass: 135.11 67-162/88-224 g LV Mass Index: 84.97 43-95/49-115 g/m2 LVOT Diam: 1.90 3.0+(-)1.3 cm 2D Systolic Function EF 4C: 60.40 >55% EF 2C: 59.30 >55% EF BiP: 59.30 >55% Mitral Valve MV VTI: 0.38 MV Pk Angel: 1.25 MV Mn Angel: 0.71 MV Pk Grad: 6.00 MV Mn Grad: 2.00 MV Pk E: 0.87 MV PK A: 0.97 MV Decel Time: 257.00 E/A: 0.90 E'Lateral: 9.14 E'Medial: 5.11 E/E' Med: 17.00 E/E' Lat: 9.50 PHT: 75.00 MVA PHT: 2.93 MVA Continuity: 1.88 Decel Walsh: 3.38 Aortic Valve AoV Pk Angel: 1.85 AoV Mn Angel: 1.25 AoV VTI: 0.37 AoV Pk Grad: 14.00 Aov Mn Grad: 7.00 WENDI Cont.VTI: 1.93 LVOT LVOT Pk Angel: 1.20 LVOT Mn Angel: 0.78 LVOT VTI: 0.25 LVOT Pk Grad: 6.00 LVOT Mn Grad: 3.00 LVOT Diam: 1.90 LVOT Area: 2.84 Diastolic Function MV Pk E: 0.87 MV Pk A: 0.97 E/A: 0.90 E'Medial: 5.11 E/E' Med: 17.00 E' Laterial: 9.14 E/E' Lat: 9.50 Right Ventricle TAPSE (mm): 19.20 TVS' Angel: 10.70 Tricuspid Valve TR Pk Angel: 2.17 TR Pk Grad: 19.00 RA Press: 3.00 RVSP: 22.00 Great Vessels Aorta Sinus of Valsalva: 3.01 2.0-3.5 cm Ao Asc: 3.10 2.1-3.4 cm Updated in Other Vendor System with Status of Final Titus Medina MD electronically signed on 02/16/2024 10:24:25 PM with status of Final
== END ==
LOC: HO.CARD 09:59
PROVIDERS: PCP Internal Medicine; Visit Provider Internal Medicine Cardiovascular Disease
DX: Z95.0 Presence of cardiac pacemaker (principal)
CPT/HCPCS: 93306; Q9957

== ENCOUNTER → 2024-02-15 10:01 | Outpatient (BNV) | payer MEDICARE, SELFPAY | PROVIDERS: PCP Internal Medicine; Visit Provider Internal Medicine Cardiovascular Disease | DX: I34.0 Nonrheumatic mitral (valve) insufficiency (principal); Z95.0 Presence of cardiac pacemaker | CPT/HCPCS: 93306 ==

== ENCOUNTER 2024-02-19 12:00 | Outpatient (AMB) | payer MEDICARE, SELFPAY ==
--- NOTE | 2024-02-19 12:06 | A.OFFVIS_ITS ---
Vital Signs 02/19/24 12:10 Height 4 ft 10 in Weight 150 lb 12.739 oz BMI 31.5 BP 110/56 L Blood Pressure Location Rt brachial Position Sitting Pulse 66 Pulse Source Pulse Oximeter Pulse Oximetry (%) 98 Oxygen Delivery Method Room Air Intake Visit Reasons: 2 weeks mouth sore/ulcers Intake Note: Kriss presents in office today for a scheduled 2 week FUV. CC: Pt reports that their condition has improved but has not resolved since their last visit. Pt still dealing with some sx. Pt denies any new concerns at this time. Customer Experience Leader Required: No Allergies duloxetine Allergy (Severe, Verified 03/14/24 09:16) LOOPY codeine [CODEINE] Allergy (Intermediate, Verified 03/14/24 09:16) GI UPSET doxycycline [DOXYCYCLINE] Allergy (Intermediate, Verified 03/14/24 09:16) RASH Sulfa (Sulfonamide Antibiotics) [SULFA (SULFONAMIDE ANTIBIOTICS)] Allergy (Intermediate, Verified 03/14/24 09:16) Hives HPI HPI 2 weeks mouth sore/ulcers: Details: Assessment & Plan (1) Lexi infection of mouth: Code(s): B37.0 - Candidal stomatitis Category: Medical Plan She developed severe mouth pain and dry lips and mouth. She also has trouble swallowing since starting the rabeprazole. She stopped the rabeprazole which is reasonable. She only stopped it for 1 day. She continues to have severe symptoms. She does not have a white tongue but it does appear somewhat reddened and irritated. I am not sure whether it is irritated due to an allergic reaction/side effect the rabeprazole or whether there is some sort of a Lexi co infection for reasons that are unclear. I think will start her on nystatin swish and swallow to see if this resolves the pain and if it does not we will then progress to a swallowed steroid. I am reluctant to start/lead with the steroid because if it is Lexi this would severely worsen her pain and her trouble swallowing. Will put her back on famotidine twice a day for now as this has some antihis tamine effects and did agree with her well. She expressed some concern about an interaction with methotrexate, but this is actually a problem universal to proton pump inhibitors and in fact worse with omeprazole and not specific to rabeprazole and she certainly did not have any of the main side effects of methotrexate such as nausea or vomiting. She already has trouble with taste since she had COVID so we want to encourage her to eat and not to have to contend with pain as this only makes things much worse. The DDX remains wide, she also has some evidence of lesions that are apthous- like appearing so viral etiology not ruled out. ROV 2 weeks. Medications: New nystatin swish and swallow 10 mL PO TID 473 mL 1RF B37.0 - Candidal stomatitis Discontinued rabeprazole (AcipHex) Discontinued Reason: Patient no longer taking 20 mg PO BID 60 tabs 6RF K21.9 - Gastro-esophageal reflux disease without esophagitis Resumed famotidine 40 mg PO BID 180 tabs 0RF K21.9 - Gastro-esophageal reflux disease without esophagitis, K22.10 - Ulcer of esophagus without bleeding famotidine 40 mg PO BID 180 tabs 0RF K21.9 - Gastro-esophageal reflux disease without esophagitis, K22.10 - Ulcer of esophagus without bleeding TODAY'S VISIT She feels that the nystatin swish and swallow did help with her mouth but did not completely resolve it. We can not use difucan r/t interaction with her hydroxychloroquine r/t QT intervals. She notes white on her tongue and something that coats her teeth. She now is of the opinion that it was not a reaction to the rabeprazole. She is continuing on the famotidine for now. Her GERD is intermittent depending on what I eat. For now, we will live with this. she is having difficulty finding a stable weight checker, they keep moving out of the area. she is quite frustrated with this. Her RA is active. She would like to be off of the methotrexate as she feels it is quite toxic. There is some evidence that it can effect the lining of the mouth, throat and stomach (Medline). I would really like her to see an ENT since I am not completely resolving the problem with her mouth and I would like to have all experts weigh in on it. She is quite agreeable to this. At this point we will keep her next appointment and she will call here ENT provider with whom she is currently established. 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 Edema of lower extremity present on examination Petechiae buttermaker use of drug Osteoarthritis of hands, bilateral Irritable bowel syndrome with diarrhea Rheumatoid arthritis Pacemaker TIA (transient ischemic attack) Dysphagia Spinal stenosis COVID COVID-19 Laryngopharyngeal reflux (LPR) Asthma Rotator cuff tendinitis Post-menopausal Polyarthralgia Dyspnea on exertion Allergic rhinitis Bronchitis Asthma exacerbation Cough variant asthma DJD (degenerative joint disease) Decreased hearing GERD (gastroesophageal reflux disease) Type 2 diabetes 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s Surgical History S/P placement of cardiac pacemaker History of esophagogastroduodenoscopy (EGD) History of colonoscopy (~09/05/21) Hx of cholecystectomy Hx of tonsillectomy Hx of hysterectomy Family History Father CVD (cardiovascular disease) Diabetes Mother Diabetes Sister No problems noted. Other Substance use disorder Social History Household Members: Family and None Housing: House Are you a primary managed care coordinator to a significant other at home: No Do you presently have visiting nurse or other home services: No Alcohol intake: former Comment: WITHIN LAST MONTH Patient Tobacco Use Status: Never used Tobacco e-Cigarette/Vaping Use: Never Used Second Hand Smoke Exposure: No Advance Directives Date on File: 08/04/22 service: No Current occupational status: retired Cognitive needs: Yes (walker) Hearing needs: Yes (hearing aide) Vision needs: Yes (glasses) Review of Systems Const Denies fatigue, Denies fever(s), Denies night sweats, Denies poor appetite and Denies weight loss Eyes Details: glasses Reports requires corrective lenses ENT Reports Normal hearing present, Denies dental pain, Denies dysphagia, Denies hearing loss, Reports mouth pain, Denies odynophagia, Denies throat swelling, Denies tongue swelling and Reports other (Dentition adequate) Card Reports no additional complaints Resp Reports no additional complaints GI Details: Denies abdominal pain, Denies melena, Denies bloating, Denies hematochezia, Denies constipation, Denies GI cramping, Denies dysphagia, Denies excessive flatus, Denies early satiety, Reports heartburn, Denies diarrhea, Denies nausea, Denies odynophagia, Denies vomiting and Denies hematemesis Skin/Breast Denies pruritus, Denies lesions, Denies rash and Denies jaundice Neuro Reports Normal hearing present and Denies Abnormal speech present Endo Denies fatigue Aller/Immun Denies throat swelling and Denies tongue swelling Physical Exam Vital Signs: Last Vital Signs Pulse 66 02/19/24 12:10 BP 110/56 L 02/19/24 12:10 Pulse Ox 98 02/19/24 12:10 Oxygen Delivery Method Room Air 02/19/24 12:10 BMI result Body Mass Index 31.5 Const General: cooperative, no acute distress, well developed and well groomed Nutritional Appearance: well nourished and obese Orientation/consciousness: oriented to person, oriented to place and oriented to time Limitations: No language barrier and ambulation with walker HEENT Head: Yes normocephalic and Yes atraumatic Eyes General: appearance normal, both eyes and all related structures Pupils: Equal, round and reactive pupils present Neck Neck: Yes normal visual inspection and Yes no lymphadenopathy Thyroid: Thyroid normal Resp Effort & Inspection: normal respiratory effort and able to speak in complete sentences Auscultation: clear to auscultation bilaterally Cardio Rate: regular rate Rhythm: regular rhythm Heart sounds: Normal, physiologic split S2 sound present Peripheral pulses: radial pulses present and posterior tibial pulses present GI Inspection: No distended, Yes Abdominal panniculus present and Yes obesity Palpation (GI): Soft to palpation, nontender, no guarding, not rigid and No hepatosplenomegaly present Percussion: Yes normal to percussion Auscultation: normal bowel sounds Rectal Exam - Female: deferred Skin General skin exam: no rashes or lesions noted, turgor normal, skin not dry, no jaundice, No spider nevi and no striae Rashes: no rashes Nails: normal Neuro General: oriented to person, oriented to place and oriented to time Cranial nerves: Yes Equal, round and reactive pupils present and Yes Normal hearing present Speech: No Abnormal speech present Extrem General: Yes normal to inspection, No clubbing, No cyanosis and No edema Psych Appearance: grossly normal and well kempt Mental Status: mental status grossly normal Speech and movement: Normal speech and movement present Affect: normal affect Attitude: cooperative Thought process: Normal thought process present and not confabulating Thought content: Normal thought content present Insight: Fair insight present (Psych) Judgement: Fair judgement present (Psych) Assessment & Plan Assessment & Plan (1) Lexi infection of mouth: Code(s): B37.0 - Candidal stomatitis Category: Medical (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 We can not use difucan r/t interaction with her hydroxychloroquine r/t QT intervals. She notes white on her tongue and something that coats her teeth. She now is of the opinion that it was not a reaction to the rabeprazole. She is continuing on the famotidine for now. Her GERD is intermittent depending on what I eat. For now, we will live with this. she is having difficulty finding a stable weight checker, they keep moving out of the area. she is quite frustrated with this. Her RA is active. She would like to be off of the methotrexate as she feels it is quite toxic. There is some evidence that it can effect the lining of the mouth, throat and stomach (Medline). I would really like her to see an ENT since I am not completely resolving the problem with her mouth and I would like to have all experts weigh in on it. She is quite agreeable to this. At this point we will keep her next appointment and she will call here ENT provider with whom she is currently established. Medications: Refilled nystatin swish and swallow 10 mL PO TID 473 mL 1RF B37.0 - Candidal stomatitis Discontinued atorvastatin Discontinued Reason: Doctor's Order 20 mg PO DAILY 90 tabs 1RF Coding Level of Care Code Est Pt Level 3 (02693) Diagnoses Lexi infection of mouth B37.0 Post-cholecystectomy syndrome K91.5 Gastroesophageal reflux disease without esophagitis K21.9 Esophagitis presence: without esophagitis
[2024-02-19 12:10] VITALS: BP 110/56; PULSE 66; O2SAT 98; BMI 31.5
== END 2024-02-19 13:34 | disposition home or self-care (01) ==
PROVIDERS: PCP Internal Medicine; Visit Provider Nurse Practitioner
DX: B37.0 Candidal stomatitis (principal); K91.5 Postcholecystectomy syndrome; K21.9 Gastro-esophageal reflux disease without esophagitis
CPT/HCPCS: 99213

== ENCOUNTER → 2024-02-19 12:00 | Outpatient (BNVA) | payer MEDICARE, SELFPAY | PROVIDERS: PCP Internal Medicine; Visit Provider Nurse Practitioner | DX: B37.0 Candidal stomatitis (principal); K21.9 Gastro-esophageal reflux disease without esophagitis; K91.5 Postcholecystectomy syndrome; Z90.49 Acquired absence of other specified parts of digestive tract | CPT/HCPCS: 99212 ==

== ENCOUNTER 2024-02-28 13:49 | Outpatient (AMB) | payer MEDICARE, SELFPAY ==
--- NOTE | 2024-02-28 13:52 | A.OFFPC_ITS ---
Vital Signs 02/28/24 13:53 Height 4 ft 10 in Weight 151 lb 8 oz BMI 31.7 BP 110/60 Blood Pressure Location Lt brachial Position Sitting Pulse 78 Pulse Source Pulse Oximeter Pulse Oximetry (%) 97 Oxygen Delivery Method Room Air Intake Visit Reasons: 3mth f/u Intake Note: Patient is here to follow up on HTN, RA, DM, DJD. Kindergarten Prep Teacher Required: No Salmon Troll Fisher: Not Required per policy Accompanied by: Self / Same As Patient Allergies duloxetine Allergy (Severe, Verified 02/28/24 14:42) LOOPY codeine [CODEINE] Allergy (Intermediate, Verified 02/28/24 14:42) GI UPSET doxycycline [DOXYCYCLINE] Allergy (Intermediate, Verified 02/28/24 14:42) RASH Sulfa (Sulfonamide Antibiotics) [SULFA (SULFONAMIDE ANTIBIOTICS)] Allergy (Intermediate, Verified 02/28/24 14:42) Hives Medication List - Last Reconciled 02/28/24 by Angel Pablo MD albuterol sulfate 90 mcg/actuation (ProAir HFA) 2 puffs inhalation Q4-6H PRN 30 days ammonium lactate 12% 12 appl topical BID aspirin 81 mg PO DAILY betamethasone valerate 0.1% 1 appl topical BID PRN blood sugar diagnostic (PicseanTouch Ultra Test strips) As directed 3x daily cholecalciferol (vitamin D3) (Vitamin D3) 4,000 units PO DAILY famotidine 40 mg PO BID ferrous sulfate 325 mg PO DAILY fluticasone propionate 50 mcg/actuation 2 sprays intranasal DAILY folic acid 1 mg PO DAILY furosemide 20 mg PO DAILY gabapentin 600 mg PO TID hydroxychloroquine 200 mg PO BID insulin glargine (Lantus Solostar U-100 Insulin) 70 units (0.7 mL) subcut BEDTIME 30 days insulin lispro (Humalog Kervin KwikPen (U-100)) 1 sliding scale dose subcut USEASDIRECTD insulin syringe-needle U-100 As directed ketoconazole 2% 1 appl topical BID lamotrigine 50 mg PO BID lidocaine 5% 1 patch topical DAILY lisinopril-hydrochlorothiazide 10-12.5 mg 1 tab PO DAILY 90 days loperamide 2 mg PO TID methotrexate sodium 20 mg (8 x 2.5 mg) PO QWEEK metronidazole 1% 1 appl topical DAILY nystatin 10 mL PO TID oxybutynin chloride ER 10 mg PO DAILY pen needle, diabetic (BD [place] 2nd Gen Pen Needle) As directed walker As directed zoledronic [id number] 5 mg/100 mL (Reclast) 5 ea IV ONCE Tobacco use date assessed: 02/28/24 Fall risk assessment: 2 + Falls in past year Last assessed Fall Risk: 02/28/24 Dental Screening Dental Screen Date: 07/19/23 HPI 3mth f/u HPI Details 73-year-old female presents to the offic e to discuss her chronic medical conditions. Blood sugars are well controlled. Patient has decreased the long-acting insulin to 60 units at night. Using the Humalog insulin accordingly. Reports no symptoms or episodes of low blood sugar. Patient continues to have worsening arthritis and stiffness in both her hands. She has difficulty grasping objects in both her hands. She is on methotrexate as a disease modifying agent for rheumatoid arthritis. She has an upcoming appointment with the sponge clipper next week. 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 Edema of lower extremity present on examination Petechiae penitentiary use of drug Osteoarthritis of hands, bilateral Irritable bowel syndrome with diarrhea Rheumatoid arthritis Pacemaker TIA (transient ischemic attack) Dysphagia Spinal stenosis COVID COVID-19 Laryngopharyngeal reflux (LPR) Asthma Rotator cuff tendinitis Post-menopausal Polyarthralgia Dyspnea on exertion Allergic rhinitis Bronchitis Asthma exacerbation Cough variant asthma DJD (degenerative joint disease) Decreased hearing GERD (gastroesophageal reflux disease) Type 2 diabetes 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s Surgical History S/P placement of cardiac pacemaker History of esophagogastroduodenoscopy (EGD) History of colonoscopy (~09/05/21) Hx of cholecystectomy Hx of tonsillectomy Hx of hysterectomy Family History Father CVD (cardiovascular disease) Diabetes Mother Diabetes Sister No problems noted. Other Substance use disorder Social History Household Members: Family and None Housing: House Are you a primary manager progressive care to a significant other at home: No Do you presently have visiting nurse or other home services: No Alcohol intake: former Comment: WITHIN LAST MONTH Patient Tobacco Use Status: Never used Tobacco e-Cigarette/Vaping Use: Never Used Second Hand Smoke Exposure: No Advance Directives Date on File: 08/04/22 service: No Current occupational status: retired Cognitive needs: Yes (walker) Hearing needs: Yes (hearing aide) Vision needs: Yes (glasses) Questionnaire Thrive Questionnaire Date Thrive assessed: 07/19/23 BRITTNEY-7 AMB Questionnaire BRITTNEY-7 Date BRITTNEY - 7 assessed: 07/19/23 Source: Developed by Drs. Jonathan Sandoval, Dodie Tejada, Alberto Elizondo and colleagues, with an educational mark from [employer]. Physical exam (Primary Care) Vital Signs: Last Vital Signs Pulse 78 02/28/24 13:53 BP 110/60 02/28/24 13:53 Pulse Ox 97 02/28/24 13:53 Oxygen Delivery Method Room Air 02/28/24 13:53 Care Plan Goal for BP management: Blood pressure is in range. BMI result Body Mass Index 31.7 BMI Assessment/Plan discussion: High Tobacco/Smoking Status: Tobacco use Status Tobacco use date assessed 02/28/24 02/28/24 14:09 Patient Tobacco Use Status Never used Tobacco 02/28/24 14:09 e-Cigarette/Vaping Use Never Used 02/28/24 14:09 Thrive Assessment: Date of Thrive Assessment Date Thrive assessed 07/19/23 02/28/24 14:09 Advance Care Planning discussion: Exists, not on file Date of discussion: 02/28/24 Forms completed: Health Care Proxy and [facility] Actual minutes spent: 5 Const General: cooperative and healthy appearing Nutritional Appearance: well nourished Orientation/consciousness: patient oriented x3 Limitations: no limitations HENMT Head: Yes normal to inspection Eyes General: appearance normal, both eyes and all related structures Neck Neck: Yes normal visual inspection Chest Chest palpation & inspection: normal palpation of entire chest wall Resp Effort & Inspection: normal respiratory effort Neuro General: patient oriented x3 Extrem Other: Right and left hands: Symmetrical swelling in all proximal interphalangeal joints. Results AMB Hemoglobin A1c AMB Hemoglobin A1c 5.1 % Last Edit by GIANA Dailey on 02/28/24 14:14 Results Reviewed Results Reviewed: Laboratory Last Values Hgb A1c (Clinic) 5.1 % (4.0-6.0) 02/28/24 13:52 Assessment and Plan Assessment & Plan (1) HTN (hypertension): Code(s): I10 - Essential (primary) hypertension Plan: Blood pressure is in range. Continue medications at same dosage. (2) Rheumatoid arthritis: Comment: Subcutaneous methotrexate: start date unknown? Around 2019 or 2019-January 2022 Plaquenil: Start date unknown ? Around 2018 or 2019 Oral methotrexate- January 2022 to present Code(s): M06.9 - Rheumatoid arthritis, unspecified Qualifiers: Rheumatoid arthritis location: multiple sites Rheumatoid factor presence: without rheumatoid factor Qualified Code(s): M06.09 - Rheumatoid arthritis without rheumatoid factor, multiple sites Plan: Patient is scheduled to see a sponge clipper. Follow-up with them regarding the pain in the hands. (3) Type 2 diabetes 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s: Code(s): E11.9 - Type 2 diabetes 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s Qualifiers: Diabetes mellitus supervisor intermediates insulin use: with supervisor intermediates use Qualified Code(s): E11.9 - Type 2 diabetes 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s; Z79.4 - penitentiary (current) use of insulin Plan: A1c is in range. Continue the long-acting insulin at 60 units. Orders: Orders AMB Hemoglobin A1c Today E11.9 - Type 2 diabetes 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s, Z79.4 - penitentiary (current) use of insulin Medications: Changed From insulin glargine (Lantus Solostar U-100 Insulin) 70 units (0.7 mL) subcut BEDTIME 30 days 21 mL 3RF To insulin glargine (Lantus Solostar U-100 Insulin) 60 units (0.6 mL) subcut BEDTIME 30 days 18 mL 3RF Coding Level of Care Code Est Pt Level 4 (28540) Complex EM visit Add On G2211 Diagnoses HTN (hypertension) I10 Rheumatoid arthritis of multiple sites with negative rheumatoid factor M06.09 Rheumatoid arthritis location: multiple sites Rheumatoid factor presence: without rheumatoid factor Type 2 diabetes 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, with long-term current use of insulin E11.9; Z79.4 Diabetes mellitus group home insulin use: with group home use Additional Codes Vital Signs *Quality* - Advance Care Planning discussion: Exists, not on file ([id number])
[2024-02-28 13:53] VITALS: BP 110/60; PULSE 78; O2SAT 97; BMI 31.7
== END 2024-02-28 14:32 | disposition home or self-care (01) ==
PROVIDERS: PCP Internal Medicine; Visit Provider Internal Medicine
DX: I10 Essential (primary) hypertension (principal); M06.09 Rheumatoid arthritis without rheumatoid factor, multiple sites; E11.9 Type 2 diabetes 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s; Z79.4 Long term (current) use of insulin; Z00.00 Encounter for general adult medical examination without abnormal findings
CPT/HCPCS: 1123F; 83036; 99214; G2211

== ENCOUNTER 2024-03-14 08:55 | Outpatient (AMB) | payer MEDICARE, SELFPAY ==
--- NOTE | 2024-03-14 08:57 | MHC.OFFVIS ---
Vital Signs 03/14/24 09:13 Height 4 ft 10 in Weight 152 lb 1.903 oz BMI 31.8 BP 116/56 L Blood Pressure Location Rt brachial Position Sitting Pulse 71 Pulse Source Pulse Oximeter Pulse Oximetry (%) 100 Oxygen Delivery Method Room Air Intake Visit Reasons: 8 week follow up Assess aciphex Intake Note: Kriss is a 73 year old female who presents to the office today for a 8 week follow up assess aciphex. Pt states she is feeling okay but states occasionally she will get stomach pain. Allergies duloxetine Allergy (Severe, Verified 03/14/24 09:16) LOOPY codeine [CODEINE] Allergy (Intermediate, Verified 03/14/24 09:16) GI UPSET doxycycline [DOXYCYCLINE] Allergy (Intermediate, Verified 03/14/24 09:16) RASH Sulfa (Sulfonamide Antibiotics) [SULFA (SULFONAMIDE ANTIBIOTICS)] Allergy (Intermediate, Verified 03/14/24 09:16) Hives HPI HPI 8 week follow up Assess aciphex: Details: She feels that the nystatins wish and swallow did help with her mouth but did not completely resolve it. We can not use difucan r/t interaction with her hydroxychloroquine r/t QT intervals. She notes white on her tongue and something that coats her teeth. She now is of the opinion that it was not a reaction to the rabeprazole. She is continuing on the famotidine for now. Her GERD is intermittent depending on what I eat. For now, we will jeannette with this. she is having difficulty finding a stable machine bender, they keep moving out of the area. she is quite frustrated with this. Her RA is active. She would like to be off of the methotrexate as she feels it is quite toxic. THEre is some evidence that it can effect the lining of the mouth, throat and stomach (Medline). Assessment & Plan (1) Lexi infection of mouth: Code(s): B37.0 - Candidal stomatitis Category: Medical (2) Post-cholecystectomy syndrome: Code(s): K91.5 - Postcholecystectomy syndrome Category: Medical (3) GERD (gastroesophageal reflux disease): Code(s): K21.9 - Gastro-esophageal reflux disease without esophagitis Category: Medical Qualifiers: Esophagitis presence: without esophagitis Qualified Code(s): K21.9 - Gastro-esophageal reflux disease without esophagitis Medications: Refilled nystatin swish and swallow 10 mL PO TID 473 mL 1RF B37.0 - Candidal stomatitis Discontinued atorvastatin Discontinued Reason: Doctor's Order 20 mg PO DAILY 90 tabs 1RF TODAY'S VISIT She is going on the 3rd bottle of nystatin swish and swallow. She tried to restart the aciphex, but her mouth started hurting more again. She stopped it and is continuing on her famotidine 40mg bid. She still has trouble eating certain foods, roque her son's homemade spaghetti sauce. She still struggles with hoarse voice. She sees Dr. Tabares, and I advise her to call his office again since she has not seen him since the mouth pain episode started. She has a new problem of a pressure ulcer on her right foot. She is supposed to be staying off of her feet. Her RA is more active on her left side. She tries to focus on knitting her afgans when this is going on. Since she has not tolerated PPI's I will increase her famotidine to 40mg tid. 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 use of drug Osteoarthritis of hands, bilateral Irritable bowel syndrome with diarrhea Rheumatoid arthritis Pacemaker TIA (transient ischemic attack) Dysphagia Spinal stenosis COVID COVID-19 Laryngopharyngeal reflux (LPR) Asthma Rotator cuff tendinitis Post-menopausal Polyarthralgia Dyspnea on exertion Allergic rhinitis Bronchitis Asthma exacerbation Cough variant asthma DJD (degenerative joint disease) Decreased hearing GERD (gastroesophageal reflux disease) Type 2 diabetes 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s Surgical History S/P placement of cardiac pacemaker History of esophagogastroduodenoscopy (EGD) History of colonoscopy (~09/05/21) Hx of cholecystectomy Hx of tonsillectomy Hx of hysterectomy Family History Father CVD (cardiovascular disease) Diabetes Mother Diabetes Sister No problems noted. Other Substance use disorder Social History Household Members: Family and None Housing: House Are you a primary primary care sales representative to a significant other at home: No Do you presently have visiting nurse or other home services: No Alcohol intake: former Comment: WITHIN LAST MONTH Patient Tobacco Use Status: Never used Tobacco e-Cigarette/Vaping Use: Never Used Second Hand Smoke Exposure: No Advance Directives Date on File: 08/04/22 service: No Current occupational status: retired Cognitive needs: Yes (walker) Hearing needs: Yes (hearing aide) Vision needs: Yes (glasses) Review of Systems Const Reports body aches, Denies fatigue, Denies fever(s), Denies night sweats, Denies poor appetite, Reports weakness and Denies weight loss Eyes Details: glasses Reports requires corrective lenses ENT Reports Normal hearing present, Denies dental pain, Reports dysphagia, Reports hearing loss, Reports mouth pain, Denies odynophagia, Denies throat swelling, Denies tongue swelling and Reports other (Dentition adequate) Card Reports no additional complaints Resp Reports no additional complaints GI Details: Denies abdominal pain, Denies melena, Denies bloating, Denies hematochezia, Reports constipation, Denies GI cramping, Reports dysphagia, Denies excessive flatus, Denies early satiety, Reports heartburn, Denies diarrhea, Denies nausea, Denies odynophagia, Denies vomiting and Denies hematemesis Musc Reports abnormal gait, Reports myalgias, Reports arthralgias, Reports joint swelling and Reports stiffness Skin/Breast Denies pruritus, Reports lesions, Denies rash and Denies jaundice Neuro Reports Normal hearing present, Denies Abnormal speech present, Reports abnormal gait and Reports weakness Endo Denies fatigue Aller/Immun Denies throat swelling and Denies tongue swelling Physical Exam Vital Signs: Last Vital Signs Pulse 71 03/14/24 09:13 BP 116/56 L 03/14/24 09:13 Pulse Ox 100 03/14/24 09:13 Oxygen Delivery Method Room Air 03/14/24 09:13 BMI result Body Mass Index 31.8 Const General: cooperative, no acute distress, well developed and well groomed Nutritional Appearance: average body habitus and well nourished Orientation/consciousness: oriented to person, oriented to place and oriented to time Limitations: No language barrier and ambulation with walker HEENT Head: Yes normocephalic and Yes atraumatic Eyes General: appearance normal, both eyes and all related structures Pupils: Equal, round and reactive pupils present Neck Neck: Yes normal visual inspection and Yes no lymphadenopathy Thyroid: Thyroid normal Resp Effort & Inspection: normal respiratory effort and able to speak in complete sentences Auscultation: clear to auscultation bilaterally Cardio Rate: regular rate Rhythm: regular rhythm Heart sounds: Normal, physiologic split S2 sound present Peripheral pulses: radial pulses present and posterior tibial pulses present GI Inspection: No distended, No Abdominal panniculus present and Yes obesity Palpation (GI): Soft to palpation, nontender, no guarding, not rigid and No hepatosplenomegaly present Percussion: Yes normal to percussion Auscultation: normal bowel sounds Rectal Exam - Female: deferred Skin General skin exam: no rashes or lesions noted, turgor normal, skin not dry, no jaundice, No spider nevi and no striae Rashes: no rashes Nails: normal Neuro General: oriented to person, oriented to place and oriented to time Cranial nerves: Yes Equal, round and reactive pupils present and Yes Normal hearing present Speech: No Abnormal speech present Extrem General: Yes normal to inspection, No clubbing, No cyanosis and No edema Psych Appearance: grossly normal and well kempt Mental Status: mental status grossly normal Speech and movement: Normal speech and movement present Affect: normal affect Attitude: cooperative Thought process: Normal thought process present and not confabulating Thought content: Normal thought content present Insight: Fair insight present (Psych) Judgement: Fair judgement present (Psych) Assessment & Plan Assessment & Plan (1) Post-cholecystectomy syndrome: Code(s): K91.5 - Postcholecystectomy syndrome Category: Medical (2) GERD (gastroesophageal reflux disease): Code(s): K21.9 - Gastro-esophageal reflux disease without esophagitis Category: Medical Qualifiers: Esophagitis presence: without esophagitis Qualified Code(s): K21.9 - Gastro-esophageal reflux disease without esophagitis Plan She is going on the 3rd bottle of nystatin swish and swallow. She tried to restart the aciphex, but her mouth started hurting more again. She stopped it and is continuing on her famotidine 40mg bid. She still has trouble eating certain foods, roque her son's homemade spaghetti sauce. She still struggles with hoarse voice. She sees Dr. Tabares, and I advise her to call his office again since she has not seen him since the mouth pain episode started. She has a new problem of a pressure ulcer on her right foot. She is supposed to be staying off of her feet. Her RA is more active on her left side. She tries to focus on knitting her afgans when this is going on. Since she has not tolerated PPI's I will increase her famotidine to 40mg tid. ROV 6 mos Medications: Changed From famotidine 40 mg PO BID 180 tabs 0RF K21.9 - Gastro-esophageal reflux disease without esophagitis, K22.10 - Ulcer of esophagus without bleeding To famotidine 40 mg PO TID 270 tabs 1RF K21.9 - Gastro-esophageal reflux disease without esophagitis, K22.10 - Ulcer of esophagus without bleeding Coding Level of Care Code Est Pt Level 3 (90524) Diagnoses Post-cholecystectomy syndrome K91.5 Gastroesophageal reflux disease without esophagitis K21.9 Esophagitis presence: without esophagitis
[2024-03-14 09:13] VITALS: BP 116/56; PULSE 71; O2SAT 100; BMI 31.8
== END 2024-03-14 09:46 | disposition home or self-care (01) ==
PROVIDERS: PCP Internal Medicine; Visit Provider Nurse Practitioner
DX: K91.5 Postcholecystectomy syndrome (principal); K21.9 Gastro-esophageal reflux disease without esophagitis
CPT/HCPCS: 99213

== ENCOUNTER → 2024-03-14 08:55 | Outpatient (BNVA) | payer MEDICARE, SELFPAY | PROVIDERS: PCP Internal Medicine; Visit Provider Nurse Practitioner | DX: K91.5 Postcholecystectomy syndrome (principal); K21.9 Gastro-esophageal reflux disease without esophagitis; K22.10 Ulcer of esophagus without bleeding | CPT/HCPCS: 99212 ==

== ENCOUNTER 2024-04-01 09:45 | Outpatient (REF) | payer MEDICARE, SELFPAY ==
--- NOTE | ~2024-04-01 | XR_ITS ---
EXAMINATION: XR CERVICAL SPINE FLEXION EXTENSION CLINICAL INFORMATION: Rheumatoid arthritis without rheumatoid factor, multiple sites M06.09. COMPARISON: CT Head neck angiography with IV contrast stroke 08/15/2022 TECHNIQUE: 6 views of the cervical spine, inclusive of flexion and extension views, were obtained. FINDINGS: The cervical spine is visualized in its entirety. Normal C1/2 articulation. In neutral positioning there is minimal anterolisthesis of C4 on C5. With flexion positioning the anterolisthesis of C4 on C5 is mildly increased in prominence and there is also noted to be minimal anterolisthesis of C3 on C4. Extension positioning results in normal alignment and resolution of the C4/5 anterolisthesis. Cervical vertebral body heights are maintained. Cervical disc spaces are maintained. Prominent osteophytes at the C6/7 level. There is mild narrowing of the right C3/4 neural foramina. Other bilateral neural foramen are widely patent. Visualized lung apices are well aerated. Partially visualized pacemaker leads. XR/XR cervical spine w flex/ext IMPRESSION: 1. Mild increase in anterolisthesis of C4 on C5 with flexion positioning. 2. Minimal anterolisthesis of C3 on C4 demonstrated only on flexion positioning. 3. Mild narrowing of the right C3/4 neural foramina. Electronically signed by: Oscar Hunt MD 06/05/2024 09:00 AM RUDY
== END 2024-04-01 09:46 | disposition home or self-care (01) ==
LOC: HO.XRAY 09:45
PROVIDERS: PCP Internal Medicine; Visit Provider Student in an Organized Health Care Education/Training Program
DX: M06.09 Rheumatoid arthritis without rheumatoid factor, multiple sites (principal); Z79.899 Other long term (current) drug therapy; Z79.631 Long term (current) use of antimetabolite agent; M54.2 Cervicalgia; M81.0 Age-related osteoporosis without current pathological fracture; M85.852 Other specified disorders of bone density and structure, left thigh; Z79.83 Long term (current) use of bisphosphonates
CPT/HCPCS: 72052; 99212

== ENCOUNTER 2024-04-01 09:45 | Outpatient (AMB) | payer MEDICARE, SELFPAY ==
--- NOTE | 2024-04-01 09:48 | A.OFFVIS_ITS ---
Vital Signs 04/01/24 09:49 Height 4 ft 10 in Weight 146 lb 13.246 oz BMI 30.7 BP 128/72 Blood Pressure Location Lt brachial Position Sitting Intake Visit Reasons: RA Intake Note: Patient presents today for follow up on RA, she was last seen in the office on 08/29/23 by Monalisa Bradley. Allergies duloxetine Allergy (Severe, Verified 04/01/24 09:52) LOOPY codeine [CODEINE] Allergy (Intermediate, Verified 04/01/24 09:52) GI UPSET doxycycline [DOXYCYCLINE] Allergy (Intermediate, Verified 04/01/24 09:52) RASH Sulfa (Sulfonamide Antibiotics) [SULFA (SULFONAMIDE ANTIBIOTICS)] Allergy (Intermediate, Verified 04/01/24 09:52) Hives Medication List - Last Reconciled 04/01/24 by Yanira Hurley MD albuterol sulfate 90 mcg/actuation (ProAir HFA) 2 puffs inhalation Q4-6H PRN 30 days ammonium lactate 12% 12 appl topical BID aspirin 81 mg PO DAILY betamethasone valerate 0.1% 1 appl topical BID PRN blood sugar diagnostic (OneTouch Ultra Test strips) As directed 3x daily cholecalciferol (vitamin D3) (Vitamin D3) 4,000 units PO DAILY famotidine 40 mg PO TID ferrous sulfate 325 mg PO DAILY fluticasone propionate 50 mcg/actuation 2 sprays intranasal DAILY folic acid 1 mg PO DAILY furosemide 20 mg PO DAILY gabapentin 600 mg PO TID hydroxychloroquine 200 mg PO BID insulin glargine (Lantus Solostar U-100 Insulin) 60 units (0.6 mL) subcut BEDTIME 30 days insulin lispro (Humalog Kervin KwikPen (U-100)) 1 sliding scale dose subcut USE ASDIRECTD insulin syringe-needle U-100 As directed ketoconazole 2% 1 appl topical BID lamotrigine 50 mg PO BID lidocaine 5% 1 patch topical DAILY lisinopril-hydrochlorothiazide 10-12.5 mg 1 tab PO DAILY 90 days loperamide 2 mg PO TID methotrexate sodium 20 mg (8 x 2.5 mg) PO QWEEK metronidazole 1% 1 appl topical DAILY nystatin 10 mL PO TID oxybutynin chloride ER 10 mg PO DAILY pen needle, diabetic (BD [place] 2nd Gen Pen Needle) As directed krish As directed zoledronic ogvy-gbvdlstk-tkoig 5 mg/100 mL (Reclast) 5 ea IV ONCE HPI Comments Details: Patient is a 73-year-old female with diabetes complicated by neuropathy, hypertension, polyarticular OA and seronegative erosive rheumatoid arthritis who presents for follow-up. Interval History: Last seen 11/29/2023 with Monalisa Bradley at that time patient had some mild synovitis to the MCPs and PIPs and so her methotrexate was increased from 6 pills to 8 pills weekly. Today patient states that she has not noticed much improvement from the increase in methotrexate. She reports that she still has prolonged morning stiffness, swelling to her PIP knees and sometimes MCPs of the bilateral hands. Denies any hair loss, ulcers or any other issues with the increase in methotrexate. Of note she has a neuropathic diabetic ulcer on the foot pad of her right foot that is currently being treated. No evidence of infection. Not currently on antibiotics. Osteopenia - diagnosed 01/23/2023 with T-score-2.1 at left femoral neck -FRAX score at that time meeting criteria for treatment with risk of hip fracture more than 3% and risk of major osteoporosis fracture more than 20%. - started on zoledronic acid. First dose 03/17 Rheumatologic History: Subcutaneous methotrexate: start date unknown? Around 2019 or 2019-January 2022 Plaquenil: Start date unknown ? 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 Osteoarthritis of hands, bilateral Irritable bowel syndrome with diarrhea Rheumatoid arthritis Pacemaker TIA (transient ischemic attack) Dysphagia Spinal stenosis COVID COVID-19 Laryngopharyngeal reflux (LPR) Asthma Rotator cuff tendinitis Post-menopausal Polyarthralgia Dyspnea on exertion Allergic rhinitis Bronchitis Asthma exacerbation Cough variant asthma DJD (degenerative joint disease) Decreased hearing GERD (gastroesophageal reflux disease) Type 2 diabetes 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s Surgical History S/P placement of cardiac pacemaker History of esophagogastroduodenoscopy (EGD) History of colonoscopy (~09/05/21) Hx of cholecystectomy Hx of tonsillectomy Hx of hysterectomy Family History Father CVD (cardiovascular disease) Diabetes Mother Diabetes Sister No problems noted. Other Substance use disorder Social History Household Members: Family and None Housing: House Are you a primary care management assistant to a significant other at home: No Do you presently have visiting nurse or other home services: No Alcohol intake: former Comment: WITHIN LAST MONTH Patient Tobacco Use Status: Never used Tobacco e-Cigarette/Vaping Use: Never Used Second Hand Smoke Exposure: No Advance Directives Date on File: 08/04/22 service: No Current occupational status: retired Cognitive needs: Yes (walker) Hearing needs: Yes (hearing aide) Vision needs: Yes (glasses) Review of Systems Const Details: Review of Systems Constitutional: Denies fever, chills, weight loss ENT: Denies vision changes, eye pain or eye redness, dental caries, dry mouth GI: Denies nausea, vomiting, diarrhea, abdominal pain, change in BM Pulm: Denies SOB, HECK, hemoptysis, wheezing Cards: Denies chest pain, palpitations Skin: Denies Raynaud's, rash, nail changes, photosensitivity, DATA ANALYSIS INTERN: Denies headaches, weakness, paresthesias, recurrent falls MSK: Complains of joint pain and joint stiffness. Denies joint swelling, muscle weakness, bone pain All other systems reviewed and are unremarkable except noted above Physical Exam Vital Signs: Last Vital Signs BP 128/72 04/01/24 09:49 BMI result Body Mass Index 30.7 Const Other: Physical Examination Elderly female, frail Not able to rise from chair without support Constitutional: ?Mucous membranes pink and moist patient alert and cooperative HEENT: ?Conjunctiva and sclera clear. ?Pupils equal round and reactive to light. ?No lymphadenopathy. ?Normal dentition. Resp: ?Normal respiratory effort and able to speak in complete sentences. ?Clear to auscultation bilaterally. ?No crackles, rales, rhonchi, wheezes heard. Cards: ?Regular rate and rhythm. ?S1 and S2 heard no murmurs. ?Radial pulses intact bilaterally MSK: ?The swelling noted to PIPs DIPs both on right and left hand. MCPs with mild tenderness to palpation. Wrist, elbow, shoulders, knees good range of motion without involvement of synovitis. Heberden's nodes noted Skin: Less than 1 cm healing ulcer noted to the foot pad of right foot. No drainage, no discharge, healthy granulation tissue seen. Results Reviewed Results Reviewed: DEXA 01/23/23 FINDINGS: AP SPINE L1-L2 (excluding L3 and L4): The data of L1-L4 has been changed to exclude the L3 and L4 vertebral bodies, because degenerative sclerosis at these levels may cause overestimation of lumbar spine density. Current: BMD 1.032 g/cm2, Z-score 0.3, T-score -1.1, osteopenia, 2.0% increase from baseline (<5% change is not significant). Baseline: BMD 1.012 g/cm2. LEFT FEMUR, NECK: Current: BMD 0.745 g/cm2, Z-score -0.5, T-score -2.1, osteopenia. Baseline: BMD 0.975 g/cm2. LEFT FEMUR, TOTAL: Current: BMD 0.882 g/cm2, Z-score 0.4, T-score -1.0, normal, 18.2% decrease from baseline (<5% change is not significant). Baseline: BMD 1.078 g/cm2. 10-YEAR FRACTURE RISK PREDICTION, FRAX: Major osteoporotic fracture (clinical spine, forearm, hip or shoulder) 24.2%. Hip fracture 6.7% Laboratory Tests 08/29/23 11/29/23 01/02/24 14:39 11:14 09:35 WBC 8.2 7.2 RBC 3.29 L 3.27 L Hgb 11.0 L 10.8 L Hct 31.4 L 30.9 L Plt Count 240 213 ESR 12 9 Sodium 141 143 Potassium 4.1 4.0 Chloride 105 105 Carbon Dioxide 27 30 H BUN 29 H 32 H Creatinine 1.21 1.21 Estimated GFR 44 44 Total Bilirubin 0.6 0.8 AST 34 H 31 ALT 35 H 35 H Alkaline Phosphatase 57 56 C-Reactive Protein 0.42 0.39 Total Protein 6.7 6.7 Albumin 4.3 4.2 Assessment & Plan Assessment & Plan (1) Rheumatoid arthritis: Comment: Subcutaneous methotrexate: start date unknown? Around 2019 or 2019-January 2022 Plaquenil: Start date unknown ? Around 2019 or 2019 Oral methotrexate- January 2022 to present Code(s): M06.9 - Rheumatoid arthritis, unspecified Category: Medical Qualifiers: Rheumatoid arthritis location: multiple sites Rheumatoid factor presence: without rheumatoid factor Qualified Code(s): M06.09 - Rheumatoid arthritis without rheumatoid factor, multiple sites Plan: #Seronegative erosive RA Patient with seronegative erosive rheumatoid arthritis. Disease is not currently controlled. We will need to escalate therapy. However patient currently has a healing diabetic ulcer. Discussed with patient at length about the risks of starting biologic while she is healing. Discussed that biologics can delay wound healing. Based on this shared decision making to hold biologics until the diabetic ulcer is better healed. She is to see her doctor in May and she will follow up with me after that. Also discussed potentially starting in low-dose prednisone however given the patient's age and her wound advised against this option. Patient is in agreement and would rather not start steroids. (2) Osteopenia: Comment: 11/2020 T scores: AP SPINE -1.3;LEFT FEMUR, NECK:-0.5;R, Left FEMUR TOTAL: 0.6; FRAX 14.5%/1.2%. Reclast infusion 03/08/202301/2023: Spine -1.1, fem neck -2.1, hip -1.0.Frax 24.2/6.7 Code(s): M85.80 - Other specified disorders of bone density and structure, unspecified site Category: Medical Qualifiers: Osteopenia location: femoral neck Laterality: left Qualified Code(s): M85.852 - Other specified disorders of bone density and structure, left thigh Plan: #Osteopenia Patient with osteopenia but she meets criteria for treatment with FRAX 24.2/6.7 (major osteoporotic fracture/hip fracture) Received 1 dose of Reclast 03/08/2023. She is due for another dose now. I will order. Her kidney function is stable with a GFR of 44. We will need to monitor this closely if GFR falls below 35 we will need to switch to denosumab. No history of falls with fractures. 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 Patient needs to see eye doctor. 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 Limit alcohol and avoid Bactrim ? Monitoring: ?CBC, BMP, LFTs, hepatitis serologies as needed (5) Encounter for ongoing osteoporosis therapy, bisphosphonates: Code(s): M81.0 - Age-related osteoporosis without current pathological fracture; Z79.83 - ocean transportation intermediary (current) use of bisphosphonates Category: Medical Plan: #Long-term Use of Bisphosphonates Risks and benefits of bisphosphonates in the management of osteoporosis Benefits include improved bone density, decreased fracture risk Risks include atypical femoral fractures, GI upset, esophageal strictures Contraindicated in patients with a creatinine clearance < 30 to 35 ml/min Keep vitamin-D at least 35 ng/mL Plan I spent 40 minutes reviewing the record and labs, seeing the patient, discussing the treatment plan and documenting in the medical record Orders: Orders Erythrocyte Sedimentation Rate 2 Months M06.09 - Rheumatoid arthritis without rheumatoid factor, multiple sites, M54.2 - Cervicalgia, Z79.631 - ocean transportation intermediary (current) use of antimetabolite agent, Z79.899 - Other senior care (current) drug therapy C Reactive Protein 2 Months M06.09 - Rheumatoid arthritis without rheumatoid factor, multiple sites, M54.2 - Cervicalgia, Z79.631 - ocean transportation intermediary (current) use of antimetabolite agent, Z79.899 - Other 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 Panel 2 Months M06.09 - Rheumatoid arthritis without rheumatoid factor, multiple sites, M54.2 - Cervicalgia, Z79.631 - ocean transportation intermediary (current) use of antimetabolite agent, Z79.899 - Other termite control representative (current) drug therapy PT Evaluation and Treatment Today R26.89 - Other abnormalities of gait and mobility, R29.6 - Repeated falls OT Evaluation and Treatment Today M06.09 - Rheumatoid arthritis without rheumatoid factor, multiple sites Referrals Infusion Center Notification M85.852 - Other specified disorders of bone density and structure, left thigh Coding Level of Care Code Est Pt Level 5 (78513) Complex EM visit Add On G2211 Diagnoses Rheumatoid arthritis of multiple sites with negative rheumatoid factor M06.09 Rheumatoid arthritis location: multiple sites Rheumatoid factor presence: without rheumatoid factor Osteopenia of neck of left femur M85.852 Osteopenia location: femoral neck Laterality: left Long-term use of hydroxychloroquine Z79.899 intermediate methotrexate user Z79.631 Encounter for ongoing osteoporosis therapy, bisphosphonates M81.0; Z79.83
[2024-04-01 09:49] VITALS: BP 128/72; BMI 30.7
== END 2024-04-01 10:59 | disposition home or self-care (01) ==
PROVIDERS: PCP Internal Medicine; Visit Provider Student in an Organized Health Care Education/Training Program
DX: M06.09 Rheumatoid arthritis without rheumatoid factor, multiple sites (principal); M85.852 Other specified disorders of bone density and structure, left thigh; Z79.899 Other long term (current) drug therapy; Z79.631 Long term (current) use of antimetabolite agent; M81.0 Age-related osteoporosis without current pathological fracture; Z79.83 Long term (current) use of bisphosphonates
CPT/HCPCS: 99215; G2211

== ENCOUNTER 2024-04-04 11:05 | Outpatient (REF) | payer MEDICARE, SELFPAY ==
[2024-04-04 11:30] LABS: MANUAL DIFF FLAG NO
[2024-04-04 11:43] LABS: Basophils Absolute Auto 0.1 X10*3/uL (0.0-0.2); Eosinophils Absolute Auto 0.3 X10*3/uL (0.0-0.4); Eosinophils Percent Auto 3.7 % (0-4); Hematocrit 27.8 % (37.0-47.0); Hemoglobin 9.6 g/dl (12.0-16.0); Imm Gran Abs Auto 0.03 X10*3/uL (0.00-0.03); Imm Gran Pct Auto 0.4 % (0.0-0.4); Lymphocytes Absolute Auto 1.3 X10*3/uL (1.2-4.9); Mean Corpuscular HGB Conc 34.5 g/dl (31.0-35.0); Mean Corpuscular Hemoglobin 33.1 pg (27.0-33.0); Mean Corpuscular Volume 95.9 fL (80.0-98.0); Mean Platelet Volume 10.6 fL (9.4-12.3); Monocytes Absolute Auto 0.4 X10*3/uL (0.1-1.2); Neutrophils Absolute Auto 5.2 x10*3/uL (2.0-8.3); Neutrophils Percent Auto 71.9 % (45-73); Platelet Count 236 X10*3/uL (160-400); Red Cell Distribution Width 14.3 % (11.0-16.0); White Blood Count 7.2 X10*3/uL (4.8-10.8)
[2024-04-04 12:11] LABS: Alanine Aminotransferase 45 U/L (0-31); Albumin Level 4.3 g/dL (3.5-5.0); Alkaline Phosphatase 60 U/L (39-117); Anion Gap 12 (12-20); Aspartate Amino Transferase 28 U/L (5-31); Bilirubin Total 0.8 mg/dL (0.0-1.0); Blood Urea Nitrogen 32 mg/dL (9-16); Calcium 9.2 mg/dL (8.4-10.2); Carbon Dioxide 28 mmol/L (22-29); Chloride 105 mmol/L (96-108); Estimated Glomerular Filt Rate 43; Glucose Random 65 mg/dL (60-115); Sodium 141 mmol/L (135-145); Total Protein 6.6 g/dL (6.5-8.0)
[2024-04-09 14:09] LABS: Vitamin D 25-OH, D2 <4 ng/mL; Vitamin D 25-OH, D3 62 ng/mL; Vitamin D 25-OH, Total 62 ng/mL (30-100)
== END 2024-04-04 11:06 | disposition home or self-care (01) ==
LOC: HO.LAB 11:05
PROVIDERS: Visit Provider Student in an Organized Health Care Education/Training Program
DX: M81.0 Age-related osteoporosis without current pathological fracture (principal); M85.852 Other specified disorders of bone density and structure, left thigh; Z79.83 Long term (current) use of bisphosphonates
CPT/HCPCS: 36415; 80053; 82306; 85025

== ENCOUNTER 2024-04-11 10:07 | Outpatient (RCR) | payer MEDICARE, SELFPAY ==
[2024-04-11 10:13] VITALS: BP 109/54; PULSE 72; RESP 14; TEMP 36.5; O2SAT 100
[2024-04-11] MEDS: Zoledronic Acid/Mannitol-Water 5 MG/100 ML PGGYBK.BTL IV (10:23)
== END 2024-04-11 12:50 | disposition home or self-care (01) ==
LOC: HO.INF 10:07
PROVIDERS: Visit Provider Student in an Organized Health Care Education/Training Program
DX: M85.852 Other specified disorders of bone density and structure, left thigh (principal)
CPT/HCPCS: 96374; J3489

== ENCOUNTER 2024-04-23 10:30 | Outpatient (RCR) | payer MEDICARE, SELFPAY ==
--- NOTE | 2024-04-14 13:20 | MHC.OT.EP ---
[address] [phone] Occupational Therapy Plan of Care Patient Name: Kriss Jackson Date of Evaluation: 04/14/24 Diagnosis: RA B/L hands Pain Location: IPs, MCPs, general; joint aches Pain Score: 10 Pain Scale Used: Numeric (0 - 10) Aggravating Factors: Cold, general use and movement Alleviating Factors: Volteren, hot packs, arthritis gloves Assessment: 73 yo female w/ hx of RA, referred to OT from rheumatology to assist w/ conservative management. She has been seen in OT before but has not had significant carry over with HEP. On assessment today, she is pain free at rest but has increased pain w/ digit movement and states she has difficulty w/ gripping and holding objects and limited finger range of motion. B/L hands have both Herberden and Kiersten nodules and she has edema through digitd and into MCPs; CMC joints are in relatively good position with (-) CMC grand test. Hand sensation is slightly impaired but WFL, she reports numbness in small finger but (-) Tinels over carpal tunnel or Guyon's canal. I anticipate she will do well w/ course of OT to develop home program with exercises to improve/maintain range of motion and focus of joint stability while addressing activity modification and adaptive equipment as needed for optimal participation in daily activities. She reports she may be limited in attending office visits due to foot wound, but has podiatry follow up today and will call for further OT appointments as able. Frequency and Duration: The patient will be seen 2x/wk for 3 weeks Short Term Goals: Ind w/ digit AROM exercises Ind w/ joint protection techniques to reduce joint strain Prison Goals: Good follow through w/ light hand strengthening/stabilization Pt to report good understanding of available DME/AE to reduce strain in home and increase participation in daily activities Pt to demo full tip-palm with ease Treatment Plan: Therapeutic Exercise Therapeutic Activity Home Exercise Program Patient Education Edema Control ADL Training Paraffin Fluidotherapy MHP Cold Packs Joint Mobilization Soft Tissue Mobilization Heating PRN, will keep low level w/ RA flare-up Electronically Signed By: Jeanette Grajeda, OTR/L CHT Please Sign and return to therapist. Thank you once again for your referral.
--- NOTE | 2024-04-23 11:09 | MHC.OT.EP ---
[address] [phone] Occupational Therapy Plan of Care Patient Name: Kriss Jackson Date of Evaluation: 04/23/24 Diagnosis: RA B/L hands Pain Location: IPs, MCPs, general; joint aches Pain Score: 10 Pain Scale Used: Numeric (0 - 10) Aggravating Factors: Cold, general use and movement Alleviating Factors: Volteren, hot packs, arthritis gloves Assessment: 73 yo female w/ hx of RA, referred to OT from rheumatology to assist w/ conservative management. She has been seen in OT before but has not had significant carry over with HEP. On assessment today, she is pain free at rest but has increased pain w/ digit movement and states she has difficulty w/ gripping and holding objects and limited finger range of motion. B/L hands have both Herberden and Kiersten nodules and she has edema through digitd and into MCPs; CMC joints are in relatively good position with (-) CMC grand test. Hand sensation is slightly impaired but WFL, she reports numbness in small finger but (-) Tinels over carpal tunnel or Guyon's canal. I anticipate she will do well w/ course of OT to develop home program with exercises to improve/maintain range of motion and focus of joint stability while addressing activity modification and adaptive equipment as needed for optimal participation in daily activities. She reports she may be limited in attending office visits due to foot wound, but has podiatry follow up today and will call for further OT appointments as able. Frequency and Duration: The patient will be seen 2x/wk for 3 weeks Short Term Goals: Ind w/ digit AROM exercises (met) Ind w/ joint protection techniques to reduce joint strain (met) Acute Care Assistant Goals: Good follow through w/ light hand strengthening/stabilization (met) Pt to report good understanding of available DME/AE to reduce strain in home and increase participation in daily activities (met) Pt to demo full tip-palm with ease Treatment Plan: Therapeutic Exercise Therapeutic Activity Home Exercise Program Patient Education Edema Control ADL Training Paraffin Fluidotherapy MHP Cold Packs Joint Mobilization Soft Tissue Mobilization Heating PRN, will keep low level w/ RA flare-up Electronically Signed By: Jeanette Grajeda, OTR/L CHT Please Sign and return to therapist. Thank you once again for your referral.
== END 2024-04-23 11:10 | disposition home or self-care (01) ==
LOC: HO.OT 10:30
PROVIDERS: PCP Internal Medicine; Visit Provider Student in an Organized Health Care Education/Training Program
DX: M06.09 Rheumatoid arthritis without rheumatoid factor, multiple sites (principal)
CPT/HCPCS: 97110; 97140; 97166

== ENCOUNTER → 2024-05-05 23:59 | Outpatient (BNV) | payer MEDICARE, SELFPAY ==
--- NOTE | 2024-05-07 13:41 | A.OFFVIS_ITS ---
Intake Visit Reasons: Remote device check- [facility] Allergies duloxetine Allergy (Severe, Verified 04/01/24 09:52) LOOPY codeine [CODEINE] Allergy (Intermediate, Verified 04/01/24 09:52) GI UPSET doxycycline [DOXYCYCLINE] Allergy (Intermediate, Verified 04/01/24 09:52) RASH Sulfa (Sulfonamide Antibiotics) [SULFA (SULFONAMIDE ANTIBIOTICS)] Allergy (Intermediate, Verified 04/01/24 09:52) Hives [facility] Medical History (Updated 05/06/24 @ 10:40 by Becky Brian MD) Encounter for ongoing osteoporosis therapy, bisphosphonates group home methotrexate user Edema of lower extremity present on examination 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 Osteoarthritis of hands, bilateral Irritable bowel syndrome with diarrhea Rheumatoid arthritis Pacemaker TIA (transient ischemic attack) Dysphagia Spinal stenosis COVID COVID-19 Laryngopharyngeal reflux (LPR) Asthma Rotator cuff tendinitis Post-menopausal Polyarthralgia Dyspnea on exertion Allergic rhinitis Bronchitis Asthma exacerbation Cough variant asthma DJD (degenerative joint disease) Decreased hearing GERD (gastroesophageal reflux disease) Type 2 diabetes 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s Surgical History S/P placement of cardiac pacemaker History of esophagogastroduodenoscopy (EGD) History of colonoscopy (~09/05/21) Hx of cholecystectomy Hx of tonsillectomy Hx of hysterectomy Family History Father CVD (cardiovascular disease) Diabetes Mother Diabetes Sister No problems noted. Other Substance use disorder Social History Household Members: Family and None Housing: House Are you a primary health care assistant to a significant other at home: No Do you presently have visiting nurse or other home services: No Alcohol intake: former Comment: WITHIN LAST MONTH Patient Tobacco Use Status: Never used Tobacco e-Cigarette/Vaping Use: Never Used Second Hand Smoke Exposure: No Use of substances other than those prescribed or required for medical reasons: No Have you been hit, kicked, punched, or otherwise hurt by someone within the past year? If so, by whom?: No Do you feel safe in your current relationship?: No Current Relationship Advance Directives Date on File: 08/04/22 Do you have thoughts of harming others: None Do you have a plan to hurt others: No Plan Do you have the means to hurt others: No service: No Current occupational status: retired Cognitive needs: Yes (walker) Hearing needs: Yes (hearing aide) Vision needs: Yes (glasses) Office Procedures Cardiac Device Check Cardiac Device Check Details: Remote pacemaker report generated 05/05/2024. Pacemaker function is adequate [id number] Cardiac Device Interrogation, pacemaker Procedure code (CPT) selection complete Assessment & Plan Assessment & Plan (1) Pacemaker: Code(s): Z95.0 - Presence of cardiac pacemaker Category: Medical Plan: See above Coding Level of Care Code Procedure Only Diagnoses Pacemaker Z95.0 CPT Codes Cardiac Device Check - Cardiac Device 12: [id number] Cardiac Device Interrogation, pacemaker ([id number])
== END ==
PROVIDERS: PCP Internal Medicine; Visit Provider Internal Medicine Cardiovascular Disease
DX: Z45.018 Encounter for adjustment and management of other part of cardiac pacemaker (principal)
CPT/HCPCS: 93294

== ENCOUNTER 2024-05-08 09:19 | Outpatient (AMB) | payer MEDICARE, SELFPAY ==
--- NOTE | 2024-05-08 09:22 | AM.OFFVISMDC ---
Intake Vital Signs 05/08/24 09:24 Height 4 ft 10 in Weight 145 lb 6 oz BMI 30.4 BP 110/62 Blood Pressure Location Lt brachial Position Sitting Intake Visit Reasons: SWLucina [id number] - see comments Intake Note: Patient is here for an Annual Wellness Visit. Database Modeler Required: No Electric Organ Assembler And Checker: Electric Organ Assembler And Checker offered & declined Accompanied by: Self / Same As Patient Allergies duloxetine Allergy (Severe, Verified 05/08/24 11:06) LOOPY codeine [CODEINE] Allergy (Intermediate, Verified 05/08/24 11:06) GI UPSET doxycycline [DOXYCYCLINE] Allergy (Intermediate, Verified 05/08/24 11:06) RASH Sulfa (Sulfonamide Antibiotics) [SULFA (SULFONAMIDE ANTIBIOTICS)] Allergy (Intermediate, Verified 05/08/24 11:06) Hives Medication List - Last Reconciled 05/08/24 by Angel Pablo MD albuterol sulfate 90 mcg/actuation (ProAir HFA) 2 puffs inhalation Q4-6H PRN 30 days ammonium lactate 12% 12 appl topical BID aspirin 81 mg PO DAILY betamethasone valerate 0.1% 1 appl topical BID PRN blood sugar diagnostic (Archetype PartnersTouch Ultra Test strips) As directed 3x daily cholecalciferol (vitamin D3) (Vitamin D3) 4,000 units PO DAILY famotidine 40 mg PO TID ferrous sulfate 325 mg PO DAILY fluticasone propionate 50 mcg/actuation 2 sprays intranasal DAILY folic acid 1 mg PO DAILY furosemide 20 mg PO DAILY gabapentin 600 mg PO TID hydroxychloroquine 200 mg PO BID insulin glargine (Lantus Solostar U-100 Insulin) 60 units (0.6 mL) subcut BEDTIME 30 days insulin lispro (Humalog Kervin KwikPen (U-100)) 1 sliding scale dose subcut USEASDIRECTD insulin syringe-needle U-100 As directed ketoconazole 2% 1 appl topical BID lamotrigine 50 mg PO BID lidocaine 5% 1 patch topical DAILY lisinopril-hydrochlorothiazide 10-12.5 mg 1 tab PO DAILY 90 days loperamide 2 mg PO TID methotrexate sodium 20 mg (8 x 2.5 mg) PO QWEEK metronidazole 1% 1 appl topical DAILY nystatin 10 mL PO TID oxybutynin chloride ER 10 mg PO DAILY pen needle, diabetic (BD [place] 2nd Gen Pen Needle) As directed krish As directed zoledronic [id number] 5 mg/100 mL (Reclast) 5 ea IV ONCE HPI SWV G0439 - see comments HPI Details 73 yr old female presents for a subsequent wellness exam. In addition, patient is requesting an exam of her legs and refer her to a vascular surgeon. Pain in the lower extremity, exacerbated while walking. [facility] Medical History Osteopenia Rheumatoid arthritis with negative rheumatoid factor Encounter for ongoing osteoporosis therapy, bisphosphonates appeals manager methotrexate user Edema of lower extremity present on examination Petechiae appeals manager use of drug Osteoarthritis of hands, bilateral Irritable bowel syndrome with diarrhea Rheumatoid arthritis Pacemaker TIA (transient ischemic attack) Dysphagia Spinal stenosis COVID COVID-19 Laryngopharyngeal reflux (LPR) Asthma Rotator cuff tendinitis Post-menopausal Polyarthralgia Dyspnea on exertion Allergic rhinitis Bronchitis Asthma exacerbation Cough variant asthma DJD (degenerative joint disease) Decreased hearing GERD (gastroesophageal reflux disease) Type 2 diabetes 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s Surgical History S/P placement of cardiac pacemaker History of esophagogastroduodenoscopy (EGD) History of colonoscopy (~09/05/21) Hx of cholecystectomy Hx of tonsillectomy Hx of hysterectomy Family History Father CVD (cardiovascular disease) Diabetes Mother Diabetes Sister No problems noted. Other Substance use disorder Social History Household Members: Family and None Housing: House Are you a primary managed care specialist to a significant other at home: No Do you presently have visiting nurse or other home services: No Alcohol intake: former Comment: WITHIN LAST MONTH Patient Tobacco Use Status: Never used Tobacco e-Cigarette/Vaping Use: Never Used Second Hand Smoke Exposure: No Advance Directives Date on File: 08/04/22 service: No Current occupational status: retired Cognitive needs: Yes (walker) Hearing needs: Yes (hearing aide) Vision needs: Yes (glasses) Questionnaire Medicare Wellness Checkup [age] What gender do you identify with?: female During the past 4 weeks, how much have you been bothered by emotional problems such as feeling anxious, depressed, irritable, sad or downhearted, and blue?: slightly During the past 4 weeks, how much bodily pain have you generally had?: moderate pain During the past 4 weeks, what was the hardest physical activity you could do for at least 2 minutes?: moderate Can you get to places out of walking distance without help? (For eg., can you travel alone on buses, taxis or drive your car?): Yes Can you go shopping for groceries or clothes without someone's help?: Yes Can you prepare your own meals?: Yes Can you do your housework without help?: Yes Because of any health problems, do you need the help of another person with your personal care needs such as eating, bathing, dressing or getting around the house?: No Can you handle your own money without help?: Yes During the past 4 weeks, how would you rate your health in general?: fair During the past 4 weeks how have things been going for you?: good & bad parts about equal Are you having difficulties driving your car?: sometimes Do you always fasten your seat belt when you are in a car?: yes, usually During past 4 weeks, have you been bothered by the following: never: Teeth or denture problems? and Problems using the telephone?, sometimes: Tiredness or fatigue? and always: Trouble eating well? Have you fallen 2 or more times in the past year?: Yes Are you afraid of falling?: No Are you a smoker?: no During the past 4 weeks, how many drinks of wine, beer, or other alcoholic beverages did you have?: no alcohol at all Do you exercise for about 20 minutes 3 or more times a week?: no, I usually do not exercise this much Have you been given information to help with the following?: no: Hazards in your house that might hurt you? and no: Keeping track of your medications? How often do you have trouble taking medicines the way you have been told to take them?: I always take medicine as prescribed How confident are you that you can control & manage most of your health problems?: very confident What is your race?: White Activity of Daily Living Bathing - sponge bath, tub bath or shower: receives no assistance (gets in/out by self, if usual bathing means Dressing - getting clothes from closets & drawers, including inner/outer garments & fasteners.: gets clothes & gets completely dressed without help Toileting - going to the 'toilet room' for urine/bowel elimination & cleaning self/arranging clothes: goes to toilet room, cleans self, arranges clothes without help Transfer: moves in & out of bed and chair without help (may use support object) Continence: controls urination/bowel movements completely by self Feeding: feeds self without help Total Score: 0 Information obtained from: patient Using telephone: independent Traveling: independent Shopping: independent Preparing meals: independent Housework: independent Taking medicine: independent Managing money: independent PHQ-9 Over the last 2 weeks, how often have you been bothered by any of the following problems? 1. Little interest or pleasure in doing things: not at all 2. Feeling down, depressed, or hopeless: not at all 3. Trouble falling or staying asleep, or sleeping too much: several days 4. Feeling tired or having little energy: not at all 5. Poor appetite or overeating: not at all 6. Feeling bad about yourself - or that you are a failure or have let yourself or your family down: not at all 7. Trouble concentrating on things, such as reading the newspaper or watching television: not at all 8. Moving or speaking so slowly that other people could have noticed. Or the opposite - being so fidgety or restless that you have been moving around a lot more than usual: not at all 9. Thoughts that you would be better off or of hurting yourself in some way: not at all Total score: 1 Depression Screening Interpretation: Positive Depression Screening Done: Yes Source: Developed by Drs. Jonathan Sandoval, Dodie Tejada, Alberto Elizondo and colleagues, with an educational mark from [email or web address]. Thrive Questionnaire Date Thrive assessed: 07/19/23 BRITTNEY-7 AMB Questionnaire BRITTNEY-7 Date BRITTNEY - 7 assessed: 07/19/23 Source: Developed by Drs. Jonathan Sandoval, Dodie Tejada, Alberto Elizondo and colleagues, with an educational mark from [email or web address]. Physical Exam Vital Signs: Last Vital Signs BP 110/62 11/14/24 09:24 BMI result Body Mass Index 30.4 Balance: Normal Romberg: Negative Tandem Walk: Able to Walk and Turn:Able to Rise from sit to stand:Able to Hearing Whisper test:Pass Const General: cooperative and healthy appearing Nutritional Appearance: well nourished Orientation/consciousness: patient oriented x3 Limitations: no limitations HEENT Head: Yes normal to inspection Eyes General: appearance normal, both eyes and all related structures Neck Neck: Yes normal visual inspection Chest Chest palpation & inspection: normal palpation of entire chest wall Resp Effort & Inspection: normal respiratory effort Neuro General: patient oriented x3 Extrem Other: Varicose veins in the left leg,more than the right. Assessment & Plan Assessment & Plan (1) Varicose veins of both lower extremities: Code(s): I83.93 - Asymptomatic varicose veins of bilateral lower extremities Plan: Per patients request, a vascular surgeon appt will be scheduled. (2) Hypercholesterolemia: Code(s): E78.00 - Pure hypercholesterolemia, unspecified Plan: BW in range, continue current medications (3) Type 2 diabetes 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s: Code(s): E11.9 - Type 2 diabetes 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s Qualifiers: Diabetes mellitus care home insulin use: with care home use Qualified Code(s): E11.9 - Type 2 diabetes 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s; Z79.4 - [facility] (current) use of insulin Plan: BW in range, continue current medications (4) DJD (degenerative joint disease): Code(s): M19.90 - Unspecified osteoarthritis, unspecified site Qualifiers: Osteoarthritis location: spine Spinal region: lumbar Spinal osteoarthritis complication: without myelopathy or radiculopathy Qualified Code(s): M47.816 - Spondylosis without myelopathy or radiculopathy, lumbar region Plan: Condition is stable. (5) Annual physical exam: Code(s): Z00.00 - Encounter for general adult medical examination without abnormal findings Plan: Upto date on flu shot and colonoscopy (6) Rheumatoid arthritis with negative rheumatoid factor: Code(s): M06.00 - Rheumatoid arthritis without rheumatoid factor, unspecified site Plan: Sees a ethologist regularly. (7) Osteopenia: Comment: 11/2020 T scores: AP SPINE -1.3;LEFT FEMUR, NECK:-0.5;R, Left FEMUR TOTAL: 0.6; FRAX 14.5%/1.2%. Reclast infusion 03/08/202301/2023: Spine -1.1, fem neck -2.1, hip -1.0.Frax 24.2/6.7 Code(s): M85.80 - Other specified disorders of bone density and structure, unspecified site Qualifiers: Osteopenia location: femoral neck Laterality: left Qualified Code(s): M85.852 - Other specified disorders of bone density and structure, left thigh Plan: On replacement medications. 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
[2024-05-08 09:24] VITALS: BP 110/62; BMI 30.4
== END 2024-05-08 10:08 | disposition home or self-care (01) ==
PROVIDERS: PCP Internal Medicine; Visit Provider Internal Medicine
DX: Z00.00 Encounter for general adult medical examination without abnormal findings (principal); E11.9 Type 2 diabetes 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s; Z79.4 Long term (current) use of insulin; M06.00 Rheumatoid arthritis without rheumatoid factor, unspecified site; I83.93 Asymptomatic varicose veins of bilateral lower extremities; E78.00 Pure hypercholesterolemia, unspecified; M47.816 Spondylosis without myelopathy or radiculopathy, lumbar region; M85.852 Other specified disorders of bone density and structure, left thigh

== ENCOUNTER → 2024-05-08 09:19 | Outpatient (BNVA) | payer MEDICARE, SELFPAY | PROVIDERS: PCP Internal Medicine; Visit Provider Internal Medicine | DX: Z00.01 Encounter for general adult medical examination with abnormal findings (principal); I83.93 Asymptomatic varicose veins of bilateral lower extremities; E78.00 Pure hypercholesterolemia, unspecified; E11.9 Type 2 diabetes 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s; Z79.4 Long term (current) use of insulin; M47.816 Spondylosis without myelopathy or radiculopathy, lumbar region; M06.00 Rheumatoid arthritis without rheumatoid factor, unspecified site; Z00.00 Encounter for general adult medical examination without abnormal findings | CPT/HCPCS: 96127; 99212 ==

== ENCOUNTER 2024-05-29 13:13 | Outpatient (AMB) | payer MEDICARE, SELFPAY ==
[2024-05-29 13:28] VITALS: BMI 30.3
--- NOTE | 2024-05-29 13:28 | MHC.OFFVIS ---
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 Pt states she has a large family hx of VV and PAD. Pt states she has a large VV on her Left LE w/ is also her weak side. Accompanied by: Self / Same As Patient Allergies duloxetine Allergy (Severe, Verified 05/29/24 13:34) LOOPY codeine [CODEINE] Allergy (Intermediate, Verified 05/29/24 13:34) GI UPSET doxycycline [DOXYCYCLINE] Allergy (Intermediate, Verified 05/29/24 13:34) RASH Sulfa (Sulfonamide Antibiotics) [SULFA (SULFONAMIDE ANTIBIOTICS)] Allergy (Intermediate, Verified 05/29/24 13:34) Hives HPI HPI IOS SOFTWARE ENGINEER VV: Details: Kriss, a pleasant 73-year-old female patient, is presenting today as a referral from her PCP for varicose veins. Complaints include slight swelling of lower extremities, discoloration of the feet/ankles, cramping, fatigue, and heaviness of the lower extremities. It has been affecting their daily activities including walking and standing/physical activity. It is noted more so in left leg. She has been elevating her legs. She has difficulty walking due to left-sided weakness from various medical conditions including a TIA. She does utilize a walker when she walks. She is currently a diabetic well controlled on insulin. She states there was a significant vascular history in her family; she has had a sister who had multiple fem-pop bypasses as well as other vascular issues. Patient denies any previous venous surgery or injections. Patient denies any history of DVT/ PE. Patient denies any history of phlebitis. Trial of compression includes - elevation They now present for vascular evaluation regarding their varicose veins. 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 Edema of lower extremity present on examination Petechiae middle or intermediate school principal use of drug Osteoarthritis of hands, bilateral Irritable bowel syndrome with diarrhea Rheumatoid arthritis Pacemaker TIA (transient ischemic attack) Dysphagia Spinal stenosis COVID COVID-19 Laryngopharyngeal reflux (LPR) Asthma Rotator cuff tendinitis Post-menopausal Polyarthralgia Dyspnea on exertion Allergic rhinitis Bronchitis Asthma exacerbation Cough variant asthma DJD (degenerative joint disease) Decreased hearing GERD (gastroesophageal reflux disease) Type 2 diabetes 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s Surgical History S/P placement of cardiac pacemaker History of esophagogastroduodenoscopy (EGD) History of colonoscopy (~09/05/21) Hx of cholecystectomy Hx of tonsillectomy Hx of hysterectomy Family History Father CVD (cardiovascular disease) Diabetes Mother Diabetes Sister No problems noted. Other Substance use disorder Social History Household Members: Family and None Housing: House Are you a primary respite care provider to a significant other at home: No Do you presently have visiting nurse or other home services: No Alcohol intake: former Comment: WITHIN LAST MONTH Patient Tobacco Use Status: Never used Tobacco e-Cigarette/Vaping Use: Never Used Second Hand Smoke Exposure: No Advance Directives Date on File: 08/04/22 service: No Current occupational status: retired Cognitive needs: Yes (walker) Hearing needs: Yes (hearing aide) Vision needs: Yes (glasses) Review of Systems Const Reports as per HPI and Denies weakness ENT Reports Normal hearing present and Denies dizziness Card Reports as per HPI, Denies chest pain, Denies chest pain at rest, Denies chest pain with activity, Denies dyspnea and Denies dyspnea on exertion Resp Reports as per HPI, Denies cough, Denies dyspnea and Denies dyspnea on exertion GI Reports as per HPI, Denies abdominal pain, Denies nausea and Denies vomiting Musc Denies numbness Skin/Breast Reports as per HPI, Denies erythema and Denies wounds Neuro Reports Normal hearing present, Denies dizziness, Denies numbness, Denies Sensory deficit (Neuro) and Denies weakness Psych Reports no additional complaints Endo Reports no additional complaints Physical Exam Vital Signs: BMI result Body Mass Index 30.3 Const General: healthy appearing and no acute distress Orientation/consciousness: patient oriented x3 HEENT Head: Yes normal to inspection Ears: hearing grossly normal bilaterally Mouth: Normal oral and palatal mucosa present Resp Effort & Inspection: normal respiratory effort and able to speak in complete sentences Auscultation: clear to auscultation bilaterally Cardio Jugular venous distension: no JVD Rate: regular rate Rhythm: regular rhythm Heart sounds: S1 normal heart sound present and S2 normal heart sound present Bruits: no abdominal aortic bruits, no carotid bruits, no femoral bruits and no renal bruits Peripheral pulses: Peripheral pulses 2+ throughout GI Inspection: Yes normal to inspection Palpation (GI): No Abdominal aortic bruit present Skin General skin exam: no rashes or lesions noted Wounds: no wounds Hair: normal Neuro General: patient oriented x3 Cranial nerves: Yes Normal hearing present Cognition (Neuro): normal cognition Gait exam (Neuro): Normal gait present Motor exam (neuro): 5/5 motor strength present throughout Sensory Exam: No Sensory deficit (Neuro) Extrem Other: Left lower extremity: Large varicosity noted from the mid medial thigh to the lateral aspect of the mid woo. Not painful to palpation. Smaller spider veins noted around her ankle and feet. Palpable DP pulses. Right lower extremity: Spider veins noted around the right ankle in a few throughout her lower extremity. No varicosities noted. CEAP: C - 4 E - primary A - superficial P - reflux General: Yes normal to inspection, Yes full ROM, Yes capillary refill normal and Yes normal gait Assessment & Plan Assessment & Plan (1) Varicose veins of both lower extremities with inflammation: Code(s): I83.11 - Varicose veins of right lower extremity with inflammation; I83.12 - Varicose veins of left lower extremity with inflammation Category: Medical Plan: Kriss is presenting today as a referral from her PCP for varicose veins, worsening. In short, the patient has evidence of venous insufficiency. I have discussed the pathophysiology with the patient. In addition I have provided informational material regarding venous disease to the patient. We have discussed conservative measures including compression, elevation, and exercise. I have also provided a handout regarding appropriate use of compression stockings and where to purchase good compression stockings as well. We discussed the importance of physical activity/walking; however, due to her ongoing weakness, if she has difficulty with walking then we suggest that she not do that. I have taken the liberty of ordering venous insufficiency testing with the patient. They will follow up with me after testing. The patient had an opportunity to ask questions regarding the treatment plan. All questions were answered. No major barriers to understanding were identified. The patient expressed understanding and agreement with the above treatment plan. The patient is aware they should contact our office by phone for worsening of the current condition or the appearance of new symptoms. Thank you for allowing me to participate in the vascular care of this patient. If you have any questions or concerns regarding the treatment for the above condition please do not hesitate to contact me. The office telephone contact is [phone]. This note is constructed using voice recognition software. While every effort has been made to ensure accuracy, manager people errors may have been included. Thank you for allowing me to participate in the care of your patient. Yours sincerely, ENRIKE Connell Orders: Orders US venous duplex LE BI 1 Week I83.11 - Varicose veins of right lower extremity with inflammation, I83.12 - Varicose veins of left lower extremity with inflammation Coding Level of Care Code New Pt Level 4 (35557) Diagnoses Varicose veins of both lower extremities with inflammation I83.11; I83.12
--- OUTSIDE RECORDS SUMMARY | 2024-06-04 02:19 | XMS_ITS ---
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 Name Role Phone Angel Pablo Primary Care Provider [phone] Antonio Giles Unavailable [phone] Allergies Allergen (clinical drug ingredient) Drug/Non Drug Allergy documented on EMR Reaction Allergy Type Onset Date Status sulfamethoxazole / trimethoprim Bactrim hives Drug Allergy Active duloxetine Cymbalta Unknown Drug Allergy Active doxycycline Doxycycline Unknown Drug Allergy Act jeannette codeine Codeine stomach upset Drug Allergy Act jeannette duloxetine Duloxetine Unknown Drug Allergy Activ e REASON FOR VISIT Open sore Medications Medication SIG (Take, Route, Frequency, Duration) Notes Start Date End Date Status Extra Depth Orthopedic Shoes (1 Pair) with Customized Heat Molded Multidensity Innersoles (3 Pair) as directed Dx: NIDDM/Polyneuropath y (E11.42), Hammertoe Foot Deformity (M20.41,M20.42), Preulcerative Skin Lesion(s) (L85.1 12/11/2023 Active Lisinopril 10 MG 1 tablet Orally Once a day for 30 day(s) Not-Taking Ammonium Lactate 12 % 1 application Externally Twice a day for 30 days Active Clopidogrel Bisulfate 75 MG 1 tablet Orally Once a day for 30 day(s) Not-Taking Omeprazole 40 MG 1 capsule 30 minutes before morning meal Orally Once a day for 30 day(s) Not-Taking ProAir HFA 108 (90 Base) MCG/ACT 2 puff as needed Inhalation every 6 hours PRN Active metroNIDAZOLE 1 % 1 application Externally Once a day Active Methotrexate Sodium 15 MG as directed Orally Active Sucralfate Active Lisinopril-hydroCHLOROth iazide Active Hydroxychloroquine Sulfate 200 MG as directed Orally Active Iron 27 240 (27 Fe) MG 1 tablet with barrington er or juice between meals Orally Once a day for 30 day(s) Active Lidocaine 5 % 1 patch remove after 12 hours Externally Once a day Active lamoTRIgine 25 MG 1 tablet Orally for 30 day(s) 2 in AM 2 in PM Active Lantus 100 UNIT/ML as directed Subcutaneous Active Furosemide Active Gabapentin 600 MG 1 tablet Orally Once a day for 30 day(s) Active Folic Acid 1 MG 1 tablet Orally Once a day for 30 day(s) Active Fluticasone Propionate 50 MCG/ACT 1 spray in each nostril Nasally Once a day for 30 day(s) Active HumaLOG 100 UNIT/ML as directed Subcutaneous 40 units Active Vitamin D Active Atorvastatin Calcium 20 MG 1 tablet Orally Once a day for 30 day(s) Active Famotidine Active Zoledronic Acid Acti ve Aspirin 81 MG 1 tablet Orally Once a day for 30 day(s) Active oxyBUTYnin Active Social History Tobacco Use: Social History Observation Description Date Details (start date - stop date) Never Smoker NA - NA Tobacco Use/Smoking Question Answer Notes Are you a: nonsmoker Additional Findings: Tobacco Non-User Current no n-smoker Alcohol Screen Question Answer Notes Did you have a drink containing alcohol in the p ast year? No Points 0 Interpretation Negative Tobacco use other than smoking: Question Answer Notes Are you an other tobacco user? No Vital Signs Blood pressure systolic 109 mm Hg 05/16/20 24 Blood pressure diastolic 54 mm Hg 024 Height 2gm10kd in 05/16/2024 Weight 146 lbs 05/16/2024 BMI 30.51 kg/m2 05/16/2024 Encounters Encounter Location Date Provider Diagnosis [facility] [place] [address] [place] [address] 05/16/2024 Antonio Montoyaunier Neuropathic ulcer of right foot, limited to breakdown of skin L97.511 Assessments Encounter Date Diagnosis (ICD Code) Assessment Notes Treatment Notes Treatment Clinical Notes Section Notes 05/16/2024 Neuropathic ulcer of right foot, limited to breakdown of skin (ICD-10 - L97.511) Response to treatment,Impro vement Plan Of Treatment Next Appt Details Follow Up: prn, Reason: Provider Name:Antonio Giles , 06/10/2024 10:00:00 AM, [address] [place], [address], Progress Notes * Jose JACKSONOB:1950 ([age] yo F)Acc No.[id number]:05/16/2024 Progress Notes Patient:Kriss HARRISON Provider:?Antonio Giles DPM :1950???Age:73 Y???Sex:Female D ate:05/16/2024 Address:[address] [place], [place] [id number] Pcp:Angel Pablo Subjective: * Chief Complaints: * ???Open sore * HPI: ???Skin problems:?Treatments:?Local care consisting of daily distilled water wound cleanse, MEDIHONEY topical antibiotic as recommended, application of sterile dressing, offloading/pressure reduction via rest, shoe modification, insert modification, accommodative padding, assisted ambulation via cane, and surgical debridement.?Toe pain:?Treatments:?Rx shoes , states still needs - appt scheduled soon.? * ROS:?General/Constitutional:?Nausea?denies.?Vomiting?denies.?Hunger Thirst?denies.?Loss appetite?denies.?Chills?denies.?Fatigue?admits.?Fever?denies.?Night Sweats?admits.?Unexplained weight loss?denies.?Unexplained weight gain?denies.?HEENTM:?Dentures?denies.?Dizziness?denies.?Glasses/contacts?admits.?Retinopathy?de nies.?Blurred/double vision?denies.?TMJ?denies.?Discharge/drainage?denies.?Implants?denies.?Sore throat?denies.?Dental implants?denies.?Hard of hearing ?admits.?Difficulty chewing/swallowing/speaking?denies.?Nose bleeds?denies.?Sore mouth?denies.?Respiratory:?On Oxygen?denies.?Pneumonia/pleurisy?denies.?Bronchitis?denies.?Emphysema?denies.?C oughing?denies.?Cough blood?denies.?Shortness of breath?admits.?Wheezing?admits.?Cardiovascular:?Pacemaker?denies.?MVP?denies.?WPW?denies.?CHF?denies.?Heart attack?denies.?Septal defect?denies.?Rapid beat?denies.?Chest pain ?denies.?Atrial Fib.?denies.?Murmur/Palpitations?denies.?Gastrointestinal:?Hemorrhoids?denies.?Stomach/Abdominal pain?denies.?Dark blood stool?denies.?Irritable bowel ?denies.?Constipation?denies.?Diarrhea?denies.?Hematology:?Swelling?denies.?Clots?denies.?Varicose Veins?admits.?Bruising?admits, on aspirin.?Bleeding problem?admits, on anticoagulants.?Genitourinary:?Blood urine?denies.?Frequent/Painfu/urination/bladder control?denies.?Kidney stones?denies.?Infection (UTI)?denies.?Nephropathy?denies.?sex trans dis (STD)?denies.?Prostate?denies.?Musculoskeletal:?Hammertoes?admits.?Bunions?denies.?Back Pain?admits.?Muscle Cramps/ Resting?denies.?Muscle cramps / walking?admits.?Generalized aches and pains?admits.?Weakness?admits.?Integ.:?Farmer?denies.?Scars?denies.?Corns/calluses?admits.?Ingrown nails?admits.?Painful nails?denies.?Open Sores?denies.?Rashes?denies.?Neurologic:?Difficulty sleeping?admits.?Brain disorder?denies.?Numbness?admits.?Balance trouble?admits.?Confusion?denies.?Fainting/blackouts?denies.?Tingling?admits.?Tr emors?denies.? * Medical History:? * Surgical History:?tonsillect afdia hysterectomy gall bladder 1994bunionectomy colonoscopy 09/05/21endoscopy 09/05/21cardiac pacemeker 08/07/22 * Hospitalization/Major Diagno stic Procedure:?Denies Past Hospitalization * Family History:?Mother: dece ased, heart attack, high blood pressure, liver disease, stroke, arthritis.?Father: , poor circulation, stroke , diabetes.?Paternal Grand Mother: cancer.?Paternal uncle: diabetes.?Siblings: Sister- heart attack, poor circulation, kidney/liver disease, high blood pressure, stroke, diabetes.? * Social History:?Tobacco Use:?Tobacco Use/Smoking?Are you a:?nonsmoker ?Additional Findings: Tobacco Non-User?Current non-smoker ?Tobacco use other than smoking?Are you an other tobacco user??No ???Drugs/Alcohol:?Drugs?Have you used drugs other than those for medical reasons in the past 12 months??No ?Alcohol Screen?Did you have a drink containing alcohol in the past year??No ?Points?0 ?Interpretation?Negative ???Miscellaneous:?Caffeine: yes. ?Children: yes, 3. ?Exercise: yes, housework,shooping. ?Marital status: . 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 * Medications:?TakingoxyBUTYni n Vitamin D Zoledronic Acid Aspirin 81 MG Tablet Delayed Release 1 tablet Orally Once a day Atorvastatin Calcium 20 MG Tablet 1 tablet Orally Once a day Famotidine Folic Acid 1 MG Tablet 1 tablet Orally Once a day Fluticasone Propionate 50 MCG/ACT Suspension 1 spray in each nostril Nasally Once a day Furosemide Gabapentin 600 MG Tablet 1 tablet Orally Once a day HumaLOG 100 UNIT/ML Solution as directed Subcutaneous , Notes to Pharmacist: 40 unitsHydroxychloroquine Sulfate 200 MG Tablet as directed Orally Iron 27 240 (27 Fe) MG Tablet 1 tablet with water or juice between meals Orally Once a day lamoTRIgine 25 MG Tablet 1 tablet Orally , Notes to Pharmacist: 2 in AM 2 in PMLantus 100 UNIT/ML Solution as directed Subcutaneous Lidocaine 5 % Patch 1 patch remove after 12 hours Externally Once a day Lisinopril-hydroCHLOROthiazide metroNIDAZOLE 1 % Gel 1 application Externally Once a day Methotrexate Sodium 15 MG Tablet as directed Orally ProAir HFA 108 (90 Base) MCG/ACT Aerosol Solution 2 puff as needed Inhalation every 6 hours , Notes to Pharmacist: PRNSucralfate Ammonium Lactate 12 % Cream 1 application Externally Twice a day Extra Depth Orthopedic Shoes (1 Pair) with Customized Heat Molded Multidensity Innersoles (3 Pair) as directed Dx: NIDDM/Polyneuropathy (E11.42), Hammertoe Foot Deformity (M20.41,M20.42), Preulcerative Skin Lesion(s) (L85.1 Taking oxyBUTYnin Taking Vitamin D Taking Zoledronic Acid Taking Aspirin 81 MG Tablet Delayed Release 1 tablet Orally Once a day Taking Atorvastatin Calcium 20 MG Tablet 1 tablet Orally Once a day Taking Famotidine Taking Folic Acid 1 MG Tablet 1 tablet Orally Once a day Taking Fluticasone Propionate 50 MCG/ACT Suspension 1 spray in each nostril Nasally Once a day Taking Furosemide Taking Gabapentin 600 MG Tablet 1 tablet Orally Once a day Taking HumaLOG 100 UNIT/ML Solution as directed Subcutaneous , Notes to Pharmacist: 40 unitsTaking Hydroxychloroquine Sulfate 200 MG Tablet as directed Orally Taking Iron 27 240 (27 Fe) MG Tablet 1 tablet with water or juice between meals Orally Once a day Taking lamoTRIgine 25 MG Tablet 1 tablet Orally , Notes to Pharmacist: 2 in AM 2 in PMTaking Lantus 100 UNIT/ML Solution as directed Subcutaneous Taking Lidocaine 5 % Patch 1 patch remove after 12 hours Externally Once a day Taking Lisinopril-hydroCHLOROthiazide Taking metroNIDAZOLE 1 % Gel 1 application Externally Once a day Taking Methotrexate Sodium 15 MG Tablet as directed Orally Taking ProAir HFA 108 (90 Base) MCG/ACT Aerosol Solution 2 puff as needed Inhalation every 6 hours , Notes to Pharmacist: PRNTaking Sucralfate Taking Ammonium Lactate 12 % Cream 1 application Externally Twice a day Taking Extra Depth Orthopedic Shoes (1 Pair) with Customized Heat Molded Multidensity Innersoles (3 Pair) as directed Dx: NIDDM/Polyneuropathy (E11.42), Hammertoe Foot Deformity (M20.41,M20.42), Preulcerative Skin Lesion(s) (L85.1 Not-Taking/PRNLisinopril 10 MG Tablet 1 tablet Orally Once a day Clopidogrel Bisulfate 75 MG Tablet 1 tablet Orally Once a day Omeprazole 40 MG Capsule Delayed Release 1 capsule 30 minutes before morning meal Orally Once a day Medication List reviewed and reconciled with the patientNot-Taking/PRN Lisinopril 10 MG Tablet 1 tablet Orally Once a day Not-Taking/PRN Clopidogrel Bisulfate 75 MG Tablet 1 tablet Orally Once a day Not-Taking/PRN Omeprazole 40 MG Capsule Delayed Release 1 capsule 30 minutes before morning meal Orally Once a day Medication List reviewed and reconciled with the patient * Allergies:?Bactrim: hivesCod eine: stomach upsetDoxycyclineDuloxetineCymbaltayes[Allergies Verified] Objective: * Vitals:?Ht:1jz37pg, Wt:146, BMI:30.51, Shoe size:7, BP:109/54mm Hg, BS:not taken, Ht-cm: 147.32 cm, Wt-k.22 kg. * ???Past Orders: ???Lab:HEMOGLOBIN A1C (GLYCO HEMOGLOBIN) (Order Date - 12/11/2023) (Collection Date & Time - 10/24/2023) ? Value Reference Range ?TOTAL HEMOGLOBIN (HGBA1C) 5.2 * Examination: ???Dermatologic: ?ULCER:?NOW shows complete re-epithelialization, Plantar, 1 MTH, RIGHT.? Assessment: * Assessment: 1.?Neuropathic ulcer of righ t foot, limited to breakdown of skin - L97.511 (Primary)???Specify :Acute problem, Stable???Notes :Response to treatment,Improvement??? Plan: * Treatment: * Procedure Codes:? * Preventive Medicine:? ??Counseling:?Discussion:?-12: Office or other outpatient visit for the evaluation and management of an established patient, which required a medically appropriate history and/or examination and STRAIGHTFORWARD level of MEDICAL DECISION MAKING, 1 SELF-LIMITED OR MINOR PROBLEM, MINIMAL- NO AMOUNT/COMPLEXITY OF DATA TO BE REVIEWED/ANALYZED, AND MINIMAL RISK OF COMPLICATION/MORBIDITY. The visit on the day of the encounter encompassed interpreting the data and educating the patient as to the nature of their condition, treatment options available according to their individual PMH, meds, allergies, and overall health/living conditions, as well as any potential risks or complications that may occur from a failure to adhere to, and participate in, the recommended course of therapy. The discussion included a complete verbal, and/or written explanation of the examination results, any x-rays taken, the proposed diagnosis, and outline of the treatment plan. A schedule for future care needs was also explained. The patient verbalized an understanding of the instructions at this time and agreed to be an active participant in their treatment. If the patient should think of any questions or concerns after the visit, I have encouraged the patient to call the office.?Ulcer:?PREVENTIVE STRATEGIES were reviewed with the patient to avoid recurrent ulceration. A set of verbal and written instructions regarding proper daily diabetic footcare techniques was discussed and dispensed. The patient is to pay close attention to skin hydration by maintaining proper moisturization through correct water consumption and consistent application of skin lotions/creams/ointments. They are also to perform regular visual and tactile foot inspections for any interruption in skin integrity including cracks, open lesions, and immediately report to the office any sign of infection such as redness/malodor/drainage/swelling. We discussed and recommended practices and procedures regarding regular shoe and insert evaluations for the presence of foreign bodies as well as for any irregular shoe or insert wear. We reinforced the importance for the patient to adhere to wearing their orthopedic shoes and pressure accommodative innersoles whenever walking. We stressed the significant value for the patient to remain consistent concerning their medically prescribed diet, participate in regular nonweight-bearing exercise (seated weights, exercise bike, or swimming), and keep their scheduled at risk foot care podiatric appointments. We also reviewed the possible role for additional Rx foot/leg bracing or surgical intervention when/if medically warranted.? * Follow Up:?prn * Images: * Sign off status: Completed true * Provider:?Antonio Giles DPM Date:?2023 Generated for Shanique alatorre/Lloyd/Juancarlos on:?06/04/2024 02:19 AM EST History and Physical Notes * HPI (History of Present Illness) Category Sub-Category Detail Notes Category Not es Toe pain Treatments: Rx shoes , state s still needs - appt scheduled soon Skin problems Treatments: Local care consi sting of daily distilled water wound cleanse, MEDIHONEY topical antibiotic as recommended, application of sterile dressing, offloading/pressure reduction via rest, shoe modification, insert modification, accommodative padding, assisted ambulation via cane, and surgical debridement Examination Category Sub-Category Detail Notes Category Not es Dermatologic ULCER: NOW shows comple te re-epithelialization, Plantar, 1 MTH, RIGHT
--- OUTSIDE RECORDS SUMMARY | 2024-06-04 02:19 | XMS_ITS ---
[facility] Organization [facility] Address [address] [place] [address] Care Team Providers Care Machine Lead Burner Name Role Phone Angel Pablo Primary Care Provider Antonio Giles Unavailable [phone] Allergies Allergen (clinical drug ingredient) Drug/Non Drug [...] Duration) Notes Start Date End Date Status Omeprazole 40 MG 1 capsule 30 minutes before morning meal Orally Once a day for 30 day(s) Not-Taking Extra Depth Orthopedic Shoes (1 Pair) with Customized Heat Molded Multidensity Innersoles (3 Pair) as directed Dx: NIDDM/Polyneuropath y (E11.42), Hammertoe Foot Deformity (M20.41,M20.42), Preulcerative Skin Lesion(s) (L85.1 12/11/2023 Active Ammonium Lactate 12 % 1 application Externally Twice a day for 30 days Active Clopidogrel Bisulfate 75 MG 1 tablet Orally Once a day for 30 day(s) Not-Taking Lisinopril 10 MG 1 tablet Orally Once a day for 30 day(s) Not-Taking Sucralfate Active ProAir HFA 108 (90 Base) MCG/ACT 2 puff as needed Inhalation every 6 hours PRN Active Methotrexate Sodium 15 MG as directed Orally Active metroNIDAZOLE 1 % 1 application Externally Once a day Active Lisinopril-hydroCHLOROth iazide Active Lidocaine 5 % 1 patch remove after 12 hours Externally Once a day Active Lantus 100 UNIT/ML as directed Subcutaneous Active Hydroxychloroquine Sulfate 200 MG as directed Orally Active lamoTRIgine 25 MG 1 tablet Orally for 30 day(s) 2 in AM 2 in PM Active Iron 27 240 (27 Fe) MG 1 tablet with barrington er or juice between meals Orally Once a day for 30 day(s) Active Furosemide Active Fluticasone Propionate 50 MCG/ACT 1 spray in each nostril Nasally Once a day for 30 day(s) Active Gabapentin 600 MG 1 tablet Orally Once a day for 30 day(s) Active Folic Acid 1 MG 1 tablet Orally Once a day for 30 day(s) Active HumaLOG 100 UNIT/ML as directed Subcutaneous 40 units Active Atorvastatin Calcium 20 MG 1 tablet Orally Once a day for 30 day(s) Active Aspirin 81 MG 1 tablet Orally Once a day for 30 day(s) Active Famotidine Active Zoledronic Acid Acti ve Vitamin D Active oxyBUTYnin Active Social History Tobacco Use: Social History Observation Description Date Details (start date - stop date) Never Smoker NA - NA Tobacco Use/Smoking Question Answer Notes Are you a: nonsmoker Additional Findings: Tobacco Non-User Current no n-smoker Tobacco use other than smoking: Question Answer Notes Are you an other tobacco user? No Problems Problem Type SNOMED Code ICD Code Onset Dates Problem Status W/U Status Risk Notes Problem Neuropathic ulcer of right foot (disorder) (45882396778243 102) Neuropathic ulcer of right foot, limited to breakdown of skin (L97.511) Active confirmed Response to treatment,I mprovement Vital Signs Blood pressure systolic 109 mm Hg 04/15/20 24 Blood pressure diastolic 54 mm Hg 024 Height [id number] in 04/15/2024 Weight 146 lbs 04/15/2024 BMI 30.51 kg/m2 04/15/2024 Procedures Procedure Date Ordered Date Performed Result Body Sit e 71442- Debride <25 sq cm 04/15/2024 N/A Encounters Encounter Location Date Provider Diagnosis [facility] [address] [place] [address] 04/15/2024 Antonio Giles Neuropathic ulcer of right foot, limited to breakdown of skin L97.511 Assessments Encounter Date Diagnosis (ICD Code) Assessment Notes Treatment Notes Treatment Clinical Notes Section Notes 04/15/2024 Neuropathic ulcer of right foot, limited to breakdown of skin (ICD-10 - L97.511) Response to treatment,Impro vement Patient Educated with: WOUND CARE INSTRUCTIONS.p df (WOUND CARE INSTRUCTIONS.p df) Plan Of Treatment Treatment Notes Assessment Notes Neuropathic ulcer of right f oot, limited to breakdown of skin Patient Educated with: WOUND CARE INSTRUCTIONS.pdf (WOUND CARE INSTRUCTIONS.pdf) Pending Test Test Name Order Date 24089- Debride <25 sq cm 04/15/2024 Next Appt Details Follow Up: 4 Weeks, Reason: Provider Name:Antonio Giles , 06/10/2024 10:00:00 AM, [address] [place] [address], [phone], Procedure Notes * Category Sub-Category Detail Notes Debride skin< 25 sq cm Open wound NEUROPATH Y: Physician of record performed open wound selective debridement of first 25 sq cm or less, of devitilized necrotic/nonviable soft tissue, fibrin, and exudate extending from the epidermis through the dermis, utilizing sharp dissection with sterile 15 blade, and/or tissue nippers. Hemostasis was controlled through direct pressure. Sterile antibiotic dressing applied, ANESTHESIA was not required due to presence of NEUROPATHY. Post debridement measurements: 5mm x 4mm x 2mm. Character of the wound post debridement is stable (45571) Progress Notes * Lilly JACKSONDonaldOB:1950 ([age] yo F)Acc No.[id number]:04/15/2024 Progress Notes Patient:?Kriss Jackson Provider:?Antonio Giles DPM :1950???Age:73 Y???Sex:Female D ate:04/15/2024 Address:[address] [place], [place] [id number] Pcp:Angel Pablo Subjective: * Chief Complaints: * ???Open sore * HPI: ???Skin problems:?Treatments:?Local care consisting of daily distilled water wound cleanse, MEDIHONEY topical antibiotic as recommended, application of sterile dressing, offloading/pressure reduction via rest, shoe modification, insert modification, accommodative padding, assisted ambulation via cane, and surgical debridement.? * ROS:?General/Constitutional:?Nausea?denies.?Vomiting?denies.?Hunger Thirst?denies.?Loss appetite?denies.?Chills?denies.?Fatigue?admits.?Fever?denies.?Night Sweats?admits.?Unexplained weight loss?denies.?Unexplained [...] emors?denies.? * Medical History:? * Surgical History:?tonsillect fadia hysterectomy gall bladder 1994bunionectomy colonoscopy 09/05/21endoscopy 09/05/21cardiac [...] than smoking?Are you an other tobacco user??No ???Miscellaneous:?Caffeine: yes. ?Children: yes, 3. ?Exercise: yes, housework,shooping. ?Marital status: . 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 * Medications:?TakingoxyBUTYni n Vitamin D Zoledronic Acid Aspirin 81 MG Tablet Delayed Release 1 tablet Orally Once a dayAtorvastatin Calcium 20 MG Tablet 1 tablet Orally Once a dayFamotidine Folic Acid 1 MG Tablet 1 tablet Orally Once a dayFluticasone Propionate 50 MCG/ACT Suspension 1 spray in each nostril Nasally Once a dayFurosemide Gabapentin 600 MG Tablet 1 tablet Orally Once a dayHumaLOG 100 UNIT/ML Solution as directed Subcutaneous , Notes: 40 unitsHydroxychloroquine Sulfate 200 MG Tablet as directed Orally Iron 27 240 (27 Fe) MG Tablet 1 tablet with water or juice between meals Orally Once a daylamoTRIgine 25 MG Tablet 1 tablet Orally , Notes: 2 in AM 2 in PMLantus 100 UNIT/ML Solution as directed Subcutaneous Lidocaine 5 % Patch 1 patch remove after 12 hours Externally Once a dayLisinopril-hydroCHLOROthiazide metroNIDAZOLE 1 % Gel 1 application Externally Once a dayMethotrexate Sodium 15 MG Tablet as directed Orally ProAir HFA 108 (90 Base) MCG/ACT Aerosol Solution 2 puff as needed Inhalation every 6 hours, Notes: PRNSucralfate Ammonium Lactate 12 % Cream 1 application Externally Twice a dayExtra Depth Orthopedic Shoes (1 Pair) with Customized Heat Molded Multidensity Innersoles (3 Pair) as directed Dx: NIDDM/Polyneuropathy (E11.42), Hammertoe Foot Deformity (M20.41,M20.42), Preulcerative Skin Lesion(s) (L85.1Taking oxyBUTYnin Taking Vitamin D Taking Zoledronic Acid Taking Aspirin 81 MG Tablet Delayed Release 1 tablet Orally Once a dayTaking Atorvastatin Calcium 20 MG Tablet 1 tablet Orally Once a dayTaking Famotidine Taking Folic Acid 1 MG Tablet 1 tablet Orally Once a dayTaking Fluticasone Propionate 50 MCG/ACT Suspension 1 spray in each nostril Nasally Once a dayTaking Furosemide Taking Gabapentin 600 MG Tablet 1 tablet Orally Once a dayTaking HumaLOG 100 UNIT/ML Solution as directed Subcutaneous , Notes: 40 unitsTaking Hydroxychloroquine Sulfate 200 MG Tablet as directed Orally Taking Iron 27 240 (27 Fe) MG Tablet 1 tablet with water or juice between meals Orally Once a dayTaking lamoTRIgine 25 MG Tablet 1 tablet Orally , Notes: 2 in AM 2 in PMTaking Lantus 100 UNIT/ML Solution as directed Subcutaneous Taking Lidocaine 5 % Patch 1 patch remove after 12 hours Externally Once a dayTaking Lisinopril-hydroCHLOROthiazide Taking metroNIDAZOLE 1 % Gel 1 application Externally Once a dayTaking Methotrexate Sodium 15 MG Tablet as directed Orally Taking ProAir HFA 108 (90 Base) MCG/ACT Aerosol Solution 2 puff as needed Inhalation every 6 hours, Notes: PRNTaking Sucralfate Taking Ammonium Lactate 12 % Cream 1 application Externally Twice a dayTaking Extra Depth Orthopedic Shoes (1 Pair) with Customized Heat Molded Multidensity Innersoles (3 Pair) as directed Dx: NIDDM/Polyneuropathy (E11.42), Hammertoe Foot Deformity (M20.41,M20.42), Preulcerative Skin Lesion(s) (L85.1Not-Taking/PRNLisinopril 10 MG Tablet 1 tablet Orally Once a dayClopidogrel Bisulfate 75 MG Tablet 1 tablet Orally Once a dayOmeprazole 40 MG Capsule Delayed Release 1 capsule 30 minutes before morning meal Orally Once a dayMedication List reviewed and reconciled with the patientNot-Taking/PRN Lisinopril 10 MG Tablet 1 tablet Orally Once a dayNot-Taking/PRN Clopidogrel Bisulfate 75 MG Tablet 1 tablet Orally Once a dayNot-Taking/PRN Omeprazole 40 MG Capsule Delayed Release 1 capsule 30 minutes before morning meal Orally Once a dayMedication List reviewed and reconciled with the patient * Allergies:?Bactrim: hivesCod eine: stomach upsetDoxycyclineDuloxetineCymbaltayes[Allergies Verified] Objective: * Vitals:?Ht: 9st01sz, Wt:146, BMI:30.51, Shoe size: 7, BP:109/54 mm Hg, BS: 107, Ht-cm: 147.32 cm, Wt-k.22 kg. * ???Past Orders: ???Lab:HEMOGLOBIN A1C (GLYCO HEMOGLOBIN) (Order Date - 12/11/2023) (Collection Date - 10/24/2023) ? Value Reference Range ?TOTAL HEMOGLOBIN (HGBA1C) 5.2 * Examination: ???Ophthalmology Referral: ?DIABETES EYE EXAM?Dermatologic: ?ULCER:?LOCATION, [place], 1 MTH, RIGHT, SIZE, 4mm X 4mm X 2mm, BASE, granular, RIM, hyperkeratotic, UNDERMINING, absent, TRACKING, Full thickness breakdown of skin, DRAINAGE, serosanguineous, mild, NECROTIC TISSUE, loosely-adherent, yellow slough, MALODOR, absent, CALOR, absent, ERYTHEMA, absent.? Assessment: * Assessment: 1.?Neuropathic ulcer of righ t foot, limited to breakdown of skin - L97.511 (Primary), Response to treatment,Improvement? Plan: * Treatment: * Procedures:?Debride skin< 25 sq cm:?Open wound?NEUROPATHY: Physician of record performed open wound selective debridement of first 25 sq cm or less, of devitilized necrotic/nonviable soft tissue, fibrin, and exudate extending from the epidermis through the dermis, utilizing sharp dissection with sterile 15 blade, and/or tissue nippers. Hemostasis was controlled through direct pressure. Sterile antibiotic dressing applied, ANESTHESIA was not required due to presence of NEUROPATHY. Post debridement measurements: 5mm x 4mm x 2mm. Character of the wound post debridement is stable (39539).? * Procedure Codes:?31785 ACTIV E WOUND CARE/20 CM OR < * Preventive Medicine:? ??Counseling:?Shoe Gear Counseling:?Patient to obtain shoes hopefully soon.?Ulcer:?A detailed plan of care was again reviewed with the patient. We emphasized the fact that the patient takes on an active participating role in the treatment process and emphasized to them that they are an included, valued, and important member of the wound healing team in order to reach an expedient successful outcome. The patient agreed to follow their medically recommended diet while increasing their protein intake if safely able to do so, maintain proper bodily hydaration, abide by weight-bearing restrictions at all times, quit all current smoking habits if any, and diligently follow any/all dressing change instructions. It was clearly made known to the patient that if they fail to do their part, they will likely extend their course of treatment as well as possibly increase their risk of adverse events including amputation. The patient was instructed on importance of proper wound care consisting of pressure reduction, and proper maintainance of a moist wound environment. The patient is to cleanse the wound with warm soapy water/peroxide/saline, or betadine BID based on product availability. The patient is to apply ( Rx Medihoney, ) Antibiotic to the wound and cover with a DSD as directed. The patient was instructed to change dressings according to orders, or PRN saturation, leaks. The patient was instructed to monitor and report any signs or symptoms of infection or any untoward reactions. Precautions Taken: Offloading/Pressure reduction via rest/ limited activity to essential to daily life only, cane, shoe modification was performed to further off-load Right 1st MTH, accommodative padding, sharp debridement, and take/apply medication as directed. THE GOALS of wound debridement to remove devitilized tissue, decrease risk for infection, promote wound healing and prevent further complication were discussed/reviewed. Debridement frequency as indicated.? * Follow Up:?4 Weeks * Images: * Sign off status: Completed true * Provider:?Antonio Giles DPM Date:?2023 Generated for Shanique alatorre/Lloyd/Jemalitting on:?06/04/2024 02:19 AM EST History and Physical Notes * HPI (History of Present Illness) Category Sub-Category Detail Notes Category Not es Skin problems Treatments: Local care consi sting of daily distilled water wound cleanse, MEDIHONEY topical antibiotic as recommended, application of sterile dressing, offloading/pressure reduction via rest, shoe modification, insert modification, accommodative padding, assisted ambulation via cane, and surgical debridement Examination Category Sub-Category Detail Notes Category Not es Dermatologic ULCER: LOCATION, [place], 1 MTH, RIGHT, SIZE, 4mm X 4mm X 2mm, BASE, granular, RIM, hyperkeratotic, UNDERMINING, absent, TRACKING, Full thickness breakdown of skin, DRAINAGE, serosanguineous, mild, NECROTIC TISSUE, loosely-adherent, yellow slough, MALODOR, absent, CALOR, absent, ERYTHEMA, absent Ophthalmology Referral DIABETES EYE EXAM Diabeti c Retinopathy Screening:: No Findings of Diabetic Eye Exam:: no retin opathy
--- OUTSIDE RECORDS SUMMARY | 2024-06-04 02:20 | XMS_ITS | Patient Health Record ---
Author Organization [facility] Address [address] [place] [address] Care Team Providers Care Felt Checker Name Role Phone Angel Pablo Primary Care Provider Antonio Giles Unavailable [phone] Allergies Allergen (clinical drug ingredient) Drug/Non Drug Allergy documented on EMR Reaction Allergy Type Onset Date Status sulfamethoxazole / trimethoprim Bactrim hives Drug Allergy Active duloxetine Cymbalta Unknown Drug Allergy Active doxycycline Doxycycline Unknown Drug Allergy Act jeannette codeine Codeine stomach upset Drug Allergy Act jeannette duloxetine Duloxetine Unknown Drug Allergy Activ e Results Component Value Reference Range Notes HEMOGLOBIN A1C (GLYCOHEMOGLO BIN) Reviewed date:06/08/2023 08:42:54 AM Interpretation: Performing Lab: Notes/Report: TOTAL HEMOGLOBIN (HGBA1C) 5.0 HEMOGLOBIN A1C (GLYCOHEMOGLO BIN) Reviewed date:12/11/2023 09:43:09 AM Interpretation: Performing Lab: Notes/Report: TOTAL HEMOGLOBIN (HGBA1C) 5.2 Reason For Referral No Information Medications Medication SIG (Take, Route, Frequency, Duration) Notes Start Date End Date Status ProAir HFA 108 (90 Base) MCG/ACT 2 puff as needed Inhalation every 6 hours PRN Active metroNIDAZOLE 1 % 1 application Externally Once a day Active Methotrexate Sodium 15 MG as directed Orally Active Hydroxychloroquine Sulfate 200 MG as directed Orally Active Iron 27 240 (27 Fe) MG 1 tablet with barrington er or juice between meals Orally Once a day for 30 day(s) Active HumaLOG 100 UNIT/ML as directed Subcutaneous 40 units Active Lidocaine 5 % 1 patch remove after 12 hours Externally Once a day Active Lisinopril-hydroCHLOROth iazide Active lamoTRIgine 25 MG 1 tablet Orally [...] day for 30 day(s) Active oxyBUTYnin Active Extra Depth Orthopedic Shoes (1 Pair) with Customized Heat Molded Multidensity Innersoles (3 Pair) as directed Dx: NIDDM/Polyneuropath y (E11.42), Hammertoe Foot Deformity (M20.41,M20.42), Preulcerative Skin Lesion(s) (L85.1 12/11/2023 Active Vitamin D Active Lisinopril 10 MG 1 tablet Orally Once a day for 30 day(s) Not-Taking Sucralfate Active Ammonium Lactate 12 % 1 application Externally Twice a day for 30 days Active Atorvastatin Calcium 20 MG 1 tablet Orally Once a day for 30 day(s) Active Famotidine Active Zoledronic Acid Acti ve Clopidogrel Bisulfate 75 MG 1 tablet Orally Once a day for 30 day(s) Not-Taking Aspirin 81 MG 1 tablet Orally Once a day for 30 day(s) Active Omeprazole 40 MG 1 capsule 30 minutes before morning meal Orally Once a day for 30 day(s) Not-Taking Immunizations Vaccine Route Administration Date Status Comme nts COVID-19 Vincenzo & Vincenzo/Leon Unknown 07/14/2021 Administered 1st 09/29/2020 Booster 07/14/2021 Influenza Unknown 04/11/2022 Administered Social History Tobacco Use: Social History Observation [...] Problem Status W/U Status Risk Notes Problem Acquired hammer toe of right foot (8283426355210317 ) Other hammer toe(s) (acquired), right foot (M20.41) Active confirmed Response to treatment, Improvemen t Problem Acquired hammer toe of left foot (0416408531699544 ) Other hammer toe(s) (acquired), left foot (M20.42) Active confirmed Response to treatment, Improvemen t Problem Polyneuropathy due to type 2 diabetes mellitus (825945845) Type 2 diabetes mellitus with diabetic polyneuropathy (E11.42) Active confirmed Problem Neuropathic ulcer of right foot (disorder) (8674800739832566 2) Neuropathic ulcer of right foot, limited to breakdown of skin (L97.511) Active confirmed Response to treatment, Improvemen t Vital Signs Blood pressure diastolic 54 mm Hg 05/16/2024 Height 2zw60uu in 05/16/2024 Blood pressure systolic 109 mm Hg 05/16/2024 Weight 146 lbs 05/16/2024 BMI 30.51 kg/m2 05/16/2024 Procedures Procedure Date Ordered Date Performed Result Body Sit e 81733-BCLNVDX NAIL, 6 OR MORE 06/08/2023 N/A 47874-HMKM SKIN LESIONS, OVER 4 06/08/2023 N/A 40434-YIBNNID NAIL, 6 OR MORE 09/11/2023 N/A 21706-VIPA SKIN LESIONS, OVER 4 09/11/2023 N/A 32167-VVUPVSG NAIL, 6 OR MORE 12/11/2023 N/A 15249-Vkelbgwf Plate 12/11/2023 N/A 34935-JBFI SKIN LESIONS, OVER 4 12/11/2023 N/A 79280-LGITPRX NAIL, 6 OR MORE 03/11/2024 N/A 26421 I&D ABSCESS- SIMPLE,SINGLE 03/11/2024 N/A 47485-IGSB SKIN LESIONS, OVER 4 03/11/2024 N/A 21285-KSRYZVF SKIN/TISSUE 03/25/2024 N/A 27990- Debride <25 sq cm 04/15/2024 N/A Encounters Encounter Location Date Provider Diagnosis [facility] [place] [address] [place] [address] 06/08/2023 Antonio Giles Type 2 diabetes mellitus with diabetic polyneuropathy E11.42 ; Onychomycosis B35.1 and Xerosis of skin L85.[address] [address] 09/11/2023 Antoniorafia Giles Type 2 diabetes mellitus with diabetic polyneuropathy E11.42 ; Onychomycosis B35.1 and Xerosis of skin L85.[address] [address] 12/11/2023 Antoniorafia Giles Type 2 diabetes mellitus with diabetic polyneuropathy E11.42 ; Tinea unguium B35.1 ; Other hammer toe(s) (acquired), right foot M20.41 ; Other hammer toe(s) (acquired), left foot M20.42 and Ingrown nail L60.[address] [address] 03/11/2024 Antonio Giles Type 2 diabetes mellitus with diabetic polyneuropathy E11.42 ; Tinea unguium B35.1 and Abscess of right foot L02.[address] [address] 03/25/2024 Antonio Tisha Abscess of right nichole t L02.611 and Neuropathic ulcer of right foot with fat layer exposed L97.[address] [address] 04/15/2024 Antonio Tisha Neuropathic ulcer of right foot, limited to breakdown of skin L97.[address] [address] 05/16/2024 Antonio Tisha Neuropathic ulcer of right foot, limited to breakdown of skin L97.[address] [address] 03/11/2024 Antonio Giles Assessments Encounter Date Diagnosis (ICD Code) Assessment Notes Treatment Notes Treatment Clinical Notes Section Notes 06/08/2023 Type 2 diabetes mellitus with diabetic polyneuropathy (ICD-10 - E11.42) 06/08/2023 Onychomycosis (ICD-10 - B35.1) 09/11/2023 Type 2 diabetes mellitus with diabetic polyneuropathy (ICD-10 - E11.42) 09/11/2023 Onychomycosis (ICD-10 - B35.1) 12/11/2023 Type 2 diabetes mellitus with diabetic polyneuropathy (ICD-10 - E11.42) 12/11/2023 Tinea unguium (ICD-10 - B35.1) 03/11/2024 Type 2 diabetes mellitus with diabetic polyneuropathy (ICD-10 - E11.42) 03/11/2024 Tinea unguium (ICD-10 - B35.1) 03/25/2024 Abscess of right foot (ICD-10 - L02.611) 04/15/2024 Neuropathic ulcer of right foot, limited to breakdown of skin (ICD-10 - L97.511) Response to treatment,Impro vement Patient Educated with: WOUND CARE INSTRUCTIONS. pdf (WOUND CARE INSTRUCTIONS. pdf) 05/16/2024 Neuropathic ulcer of right foot, limited to breakdown of skin (ICD-10 - L97.511) Response to treatment,Impro vement 03/25/2024 Neuropathic ulcer of right foot with fat layer exposed (ICD-10 - L97.512) Response to treatment,Nonap plicable Patient Educated with: WOUND CARE INSTRUCTIONS. pdf (WOUND CARE INSTRUCTIONS. pdf) 03/11/2024 Abscess of right foot (ICD-10 - L02.611) Patient Educated with: WOUND CARE INSTRUCTIONS. pdf (WOUND CARE INSTRUCTIONS. pdf) 12/11/2023 Other hammer toe(s) (acquired), right foot (ICD-10 - M20.41) Patient Educated with: DIABETIC FOOT CARE INSTRUCTIONS. pdf (DIABETIC FOOT CARE INSTRUCTIONS. pdf) 09/11/2023 Xerosis of skin (ICD-10 - L85.3) 06/08/2023 Xerosis of skin (ICD-10 - L85.3) 12/11/2023 Other hammer toe(s) (acquired), left foot (ICD-10 - M20.42) 12/11/2023 Ingrown nail (ICD-10 - L60.0) 03/11/2024 Other 03/25/2024 Other Plan Of Treatment Pending Test Test Name Order Date X ray : Foot, left 3V 03/03/2022 X ray : Foot, right 3V 03/03/2022 37650-QTQJTCC NAIL, 6 OR MORE 03/11/2024 81631-RZCONGT NAIL, 6 OR MORE 09/11/2023 81977-UHUFHMJ NAIL, 6 OR MORE 12/11/2023 64688-MXVJRRF NAIL, 6 OR MORE 09/08/2022 49102-SZVFVPQ NAIL, 6 OR MORE 12/08/2022 82326-EDRHPFF NAIL, 6 OR MORE 03/09/2023 14031-VRMQZLE NAIL, 6 OR MORE 06/08/2023 64481-ENXZJYH NAIL, 6 OR MORE 06/02/2022 20426-OFXRARD NAIL, 6 OR MORE 03/03/2022 11749-KFEJVUL NAIL, 6 OR MORE 08/30/2021 51548-BMPFZMG NAIL, 6 OR MORE 12/02/2021 49359-RNJTQPC NAIL, 6 OR MORE 06/08/2020 30978-PTNHGBW NAIL, 6 OR MORE 09/03/2020 57594-PVMBJHB NAIL, 6 OR MORE 12/10/2020 95399-CEMRCTG NAIL, 6 OR MORE 03/22/2021 09816-Sowvdnpk Plate 12/11/2023 86164- Debride <25 sq cm 04/15/2024 24379-DBKXAYZ SKIN/TISSUE 03/25/2024 59441 I&D ABSCESS- SIMPLE,SINGLE 024 44678-XCSS SKIN LESIONS, OVER 4 03/11/20 24 73753-KWBX SKIN LESIONS, OVER 4 12/11/19 24 74007-SPJV SKIN LESIONS, OVER 4 09/11/19 24 51819-LJEX SKIN LESIONS, OVER 4 06/08/20 23 52694-ZHHI SKIN LESIONS, OVER 4 03/09/20 23 84670-WSKW SKIN LESIONS, OVER 4 12/09/19 23 71945-GWYG SKIN LESIONS, OVER 4 09/09/19 23 56411-LNLZ SKIN LESIONS, OVER 4 03/22/20 21 87980-NNVE SKIN LESIONS, OVER 4 12/11/19 21 08856-PZBS SKIN LESIONS, OVER 4 09/04/19 21 04495-ZQQR SKIN LESIONS, OVER 4 06/08/20 20 38990-JCEL SKIN LESIONS, OVER 4 12/03/19 22 28028-YHYK SKIN LESIONS, OVER 4 08/31/19 22 52255-HEER SKIN LESIONS, OVER 4 03/03/20 85295-XMWE SKIN LESIONS, OVER 4 06/02/20 Next Appt Details Provider Name:Antonio Giles , 06/10/2024 10:00:00 AM, [address] [place], [address], Insurance Providers Payer Name Payer Address Payer Phone Subscriber Number Group Number Insured Name Patient Relationship to Insured Coverage Start Date Coverage End Date Medicare National Govt [facility] [address] [place] [address] [id number] Kriss Jackson Self - patient is the insured flatev [facility] [address] [place] [address] [id number] Kriss Jackson Self - patient is the insured Medical (General) History Medical History History ICD Code Anemia Arthritis OA , RA asthma Back,Hip,and Knee pain Cataracts Gall bladder problems High blood pressure Numbness chronic sinusitis Reflux Chicken pox type II diabetes Pacemaker Infusion Surgical History Surgery Date(Month/Year) tonsillectomy hysterectomy gall bladder 1993 bunionectomy colonoscopy 09/05/21 endoscopy 09/05/21 cardiac pacemeker 08/07/22
--- OUTSIDE RECORDS SUMMARY | 2024-06-04 02:20 | XMS_ITS ---
[facility] Address [address] [place] [address] Care Team Providers Care Harness Puller Name Role Phone Angel Pablo Primary Care Provider [phone] Antonio Giles Unavailable [phone] Allergies Allergen (clinical drug ingredient) Drug/Non Drug Allergy documented on EMR Reaction Allergy Type Onset Date Status sulfamethoxazole / trimethoprim Bactrim hives Drug Allergy Active duloxetine Cymbalta Unknown Drug Allergy Active doxycycline Doxycycline Unknown Drug Allergy Act jeannette codeine Codeine stomach upset Drug Allergy Act jeannette duloxetine Duloxetine Unknown Drug Allergy Activ e REASON FOR VISIT Open sore, Possible Infection Medications Medication SIG (Take, Route, Frequency, Duration) Notes Start Date End Date Status Aspirin 81 MG 1 tablet Orally Once a day for 30 day(s) Active Atorvastatin Calcium 20 MG 1 tablet Orally Once a day for 30 day(s) Active Vitamin D Active Zoledronic Acid Acti ve Famotidine Active oxyBUTYnin Active Clopidogrel Bisulfate 75 MG 1 tablet [...] Once a day for 30 day(s) Not-Taking Methotrexate Sodium 15 MG as directed Orally Active ProAir HFA 108 (90 Base) MCG/ACT 2 puff as needed Inhalation every 6 hours PRN Active metroNIDAZOLE 1 % 1 application Externally Once a day Active Sucralfate Active Ammonium Lactate 12 % 1 application Externally Twice a day for 30 days Active Lantus 100 UNIT/ML as directed Subcutaneous Active Lidocaine 5 % 1 patch remove after 12 hours Externally Once a day Active Iron 27 240 (27 Fe) MG 1 tablet with barrington er or juice between meals Orally Once a day for 30 day(s) Active lamoTRIgine 25 MG 1 tablet Orally for 30 day(s) 2 in AM 2 in PM Active Lisinopril-hydroCHLOROth iazide Active HumaLOG 100 UNIT/ML as directed Subcutaneous 40 units Active Hydroxychloroquine Sulfate 200 MG as directed Orally Active Fluticasone Propionate 50 MCG/ACT 1 spray in each nostril Nasally Once a day for 30 day(s) Active Furosemide Active Gabapentin 600 MG 1 tablet Orally Once a day for 30 day(s) Active Folic Acid 1 MG 1 tablet Orally Once a day for 30 day(s) Active Social History Tobacco Use: Social History Observation Description Date Details (start date - stop date) Never Smoker NA - NA Tobacco Use/Smoking Question Answer Notes Are you a: nonsmoker Additional Findings: Tobacco Non-User Current no n-smoker Tobacco use other than smoking: Question Answer Notes Are you an other tobacco user? No Vital Signs Height 5sp47is in 03/25/2024 Weight 148 lbs 03/25/2024 BMI 30.93 kg/m2 03/25/2024 Procedures Procedure Date Ordered Date Performed Result Body Sit e 65677-[id number] SKIN/TISSUE 03/25/2024 N/A Encounters Encounter Location Date Provider Diagnosis [facility] [address] [place] [address] 03/25/2024 Antonio Tisha Abscess of right foot L02.611 and Neuropathic ulcer of right foot with fat layer exposed L97.512 Assessments Encounter Date Diagnosis (ICD Code) Assessment Notes Treatment Notes Treatment Clinical Notes Section Notes 03/25/2024 Abscess of right foot (ICD-10 - L02.611) 03/25/2024 Neuropathic ulcer of right foot with fat layer exposed (ICD-10 - L97.512) Response to treatment,Nonap plicable Patient Educated with: WOUND CARE INSTRUCTIONS.p df (WOUND CARE INSTRUCTIONS.p df) 03/25/2024 Other Plan Of Treatment Treatment Notes Assessment Notes Neuropathic ulcer of right f oot with fat layer exposed Patient Educated with: WOUND CARE INSTRUCTIONS.pdf (WOUND CARE INSTRUCTIONS.pdf) Pending Test Test Name Order Date 74604-HJRRQEP SKIN/TISSUE 03/25/2024 Next Appt Details Follow Up: 3 Weeks, Reason: Provider Name:Antonio Giles , 06/10/2024 10:00:00 AM, [address] [place], [address], Procedure Notes * Category Sub-Category Detail Notes Debride skin and subQ Open wound NEUROPATHY : Physician of record performed open wound selective debridement of devitalized necrotic/nonviable soft tissue, fibrin, exudate, epidermis, dermis, thru skin and subcutaneous fat tissue, first 20 sq cm or less, using sharp dissection with sterile 15 blade, and/or tissue nippers. ANESTHESIA was not required due to presence of NEUROPATHY. Hemostasis was controlled through direct pressure. Sterile antibiotic dressing applied. Post debridement measurements: 11mm x 4mm x 3mm. Character of the wound post debridement is stable (33497) Progress Notes * Jose JACKSONOB:1950 ([age] yo F)Acc No.[id number]:03/25/2024 Progress Notes Patient:?Kriss Jackson Provider:?Antonio Giles DPM :1950???Age:73 Y???Sex:Female D ate:03/25/2024 Address:[address] [place], [place] [id number] Pcp:Angel Pablo Subjective: * Chief Complaints: * ???Open sorePossible Infecti on * HPI: ???At Risk footcare:?Pt States Last PCP Visit:?Date?02/28/2024 ???Skin problems:?Treatments:?Local care consisting of daily distilled water wound cleanse, MEDIHONEY topical antibiotic as recommended, application of sterile dressing, offloading/pressure reduction via rest, shoe modification, insert modification, accommodative padding, assisted ambulation via cane, and surgical debridement.?Possible Infection:?Treatments:?soaks , I & D.? * ROS:?General/Constitutional:?Nausea?denies.?Vomiting?denies.?Hunger Thirst?denies.?Loss appetite?denies.?Chills?denies.?Fatigue?admits.?Fever?denies.?Night Sweats?admits.?Unexplained weight loss?denies.?Unexplained [...] yes, housework,shooping. ?Marital status: . 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 * Medications:?TakingoxyBUTYni n Vitamin D Zoledronic Acid [...] eine: stomach upsetDoxycyclineDuloxetineCymbaltayes[Allergies Verified] Objective: * Vitals:?Ht: 0nz19js, Wt:148, BMI:30.93, Shoe size: 7, BS: 112, Ht-cm: 147.32 cm, Wt-k.13 kg. * ???Past Orders: ???Lab:HEMOGLOBIN A1C (GLYCO HEMOGLOBIN) (Order Date - 12/11/2023) (Collection Date - 10/24/2023) ? Value Reference Range ?TOTAL HEMOGLOBIN (HGBA1C) 5.2 * Examination: ???Dermatologic: ?SKIN FINDINGS:?Skin shows sign(s) of no further abscess, Right.?ULCER:? LOCATION, Plantar, 1 MTH, RIGHT, SIZE, 10mm X 5mm X 3mm, BASE, fibro-granular, RIM, hyperkeratotic, UNDERMINING, mild, TRACKING, Sub Q with Fat layer exposed, DRAINAGE, serosanguineous, moderate, NECROTIC TISSUE, loosely-adherent, yellow slough, MALODOR, absent, CALOR, absent, ERYTHEMA, absent.? Assessment: * Assessment: 1.?Abscess of right foot - L 02.611, Resolved?2.?Neuropathic ulcer of right foot with fat layer exposed - L97.512, Response to treatment,Nonapplicable? Plan: * Treatment: * Procedures:?Debride skin and subQ:?Open wound?NEUROPATHY: Physician of record performed open wound selective debridement of devitalized necrotic/nonviable soft tissue, fibrin, exudate, epidermis, dermis, thru skin and subcutaneous fat tissue, first 20 sq cm or less, using sharp dissection with sterile 15 blade, and/or tissue nippers. ANESTHESIA was not required due to presence of NEUROPATHY. Hemostasis was controlled through direct pressure. Sterile antibiotic dressing applied. Post debridement measurements: 11mm x 4mm x 3mm. Character of the wound post debridement is stable (56591).? * Procedure Codes:?78572 DEBRI DE SKIN/TISSUE * Preventive Medicine:? ??Counseling:?Discussion:?-12: Office or other [...] have encouraged the patient to call the office.?Shoe Gear Counseling:?Patient to obtain shoes hopefully soon.?Ulcer:?A detailed plan of care was reviewed with the patient. We emphasized the [...] discussed/reviewed. Debridement frequency as indicated.? * Follow Up:?3 Weeks * Images: * Sign off status: [...] assisted ambulation via cane, and surgical debridement At Risk footcare Pt States Last PCP Visit: Date: 02/28/2024 Possible Infection Treatments: soaks , I & D Examination Category Sub-Category Detail Notes Category Not es Dermatologic SKIN FINDINGS: Skin shows sign( s) of no further abscess, Right ULCER: LOCATION, Plantar, 1 MTH, RIGHT, SIZE, 10mm X 5mm X 3mm, BASE, fibro- granular, RIM, hyperkeratotic, UNDERMINING, mild, TRACKING, Sub Q with Fat layer exposed, DRAINAGE, serosanguineous, moderate, NECROTIC TISSUE, loosely-adherent, yellow slough, MALODOR, absent, CALOR, absent, ERYTHEMA, absent
== END 2024-05-29 14:04 | disposition home or self-care (01) ==
PROVIDERS: PCP Internal Medicine; Visit Provider Physician Assistant Surgical
DX: I83.11 Varicose veins of right lower extremity with inflammation (principal); I83.12 Varicose veins of left lower extremity with inflammation
CPT/HCPCS: 99204

== ENCOUNTER → 2024-05-29 13:13 | Outpatient (BNVA) | payer MEDICARE, SELFPAY | PROVIDERS: PCP Internal Medicine; Visit Provider Physician Assistant Surgical | DX: I83.11 Varicose veins of right lower extremity with inflammation (principal); I83.12 Varicose veins of left lower extremity with inflammation; E11.51 Type 2 diabetes mellitus with diabetic peripheral angiopathy without gangrene; Z79.4 Long term (current) use of insulin | CPT/HCPCS: 99202 ==

== ENCOUNTER 2024-06-19 12:31 | Outpatient (REF) | payer MEDICARE, SELFPAY | END 2024-06-19 12:32 | disposition home or self-care (01) | LOC: HO.US 12:31 | PROVIDERS: PCP Internal Medicine; Visit Provider Physician Assistant Surgical | DX: I83.11 Varicose veins of right lower extremity with inflammation (principal); I83.12 Varicose veins of left lower extremity with inflammation | CPT/HCPCS: 93970 ==

== ENCOUNTER 2024-06-24 07:53 | Outpatient (AMB) | payer MEDICARE, SELFPAY ==
--- OUTSIDE RECORDS SUMMARY | 2024-06-24 07:55 | XMS_ITS ---
Author [facility] Address [address] [place] [address] Care Team Providers Care Control Panel Operator Crude Unit Name Role Phone Angel Pablo Primary Care Provider Antonio Giles Unavailable [phone] Allergies Allergen (clinical drug ingredient) Drug/Non Drug [...] other tobacco user? No Vital Signs Height 7wk13wi in 04/15/2024 Weight 146 lbs 04/15/2024 BMI 30.51 kg/m2 04/15/2024 Blood pressure systolic 109 mm Hg 04/15/20 24 Blood pressure diastolic 54 mm Hg 024 Procedures Procedure Date Ordered Date Performed Result Body Sit e 22355- Debride <25 sq cm 04/15/2024 N/A Encounters Encounter Location Date Provider Diagnosis [facility] [address] [place] [address] 04/15/2024 Antonio Montoyaunier Neuropathic ulcer of right foot, [...] INSTRUCTIONS.pdf) Pending Test Test Name Order Date 83719- Debride <25 sq cm 04/15/2024 Next Appt Details Follow Up: 4 Weeks, Reason: Provider Name:Antonio Giles , 09/16/2024 10:30:00 AM, [address] [place] [address], [phone], Procedure Notes * Category Sub-Category Detail Notes [...] of the wound post debridement is stable (70952) Progress Notes * Jose JACKSONOB:1950 ([age] yo F)Acc No.[id number]:04/15/2024 Progress Notes Patient:Kriss Maki Provider:?Antonio Giles DPM :1950???Age:73 Y???Sex:Female D ate:04/15/2024 Address:[address] [place], [place] [phone] Pcp:Angel Pablo Subjective: * Chief Complaints: * [...] yes, housework,shooping. ?Marital status: . 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 * Medications:?TakingoxyBUTYni n Vitamin D Zoledronic Acid [...] eine: stomach upsetDoxycyclineDuloxetineCymbaltayes[Allergies Verified] Objective: * Vitals:?Ht: 2oe39hy, Wt:146, BMI:30.51, Shoe size: 7, BP:109/54 mm [...] of the wound post debridement is stable (84028).? * Procedure Codes:?94262 ACTIV E WOUND CARE/20 CM OR < [...] Giles DPM Date:?2023 Generated for Shanique alatorre/Lloyd/Jemalitting on:?06/24/2024 07:55 AM EST History and Physical Notes * [...]
--- OUTSIDE RECORDS SUMMARY | 2024-06-24 07:55 | XMS_ITS ---
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 Name Role Phone Angel Pablo Primary Care Provider [phone] Antonio Giles Unavailable [phone] Allergies Allergen (clinical drug ingredient) Drug/Non Drug Allergy documented on EMR Reaction Allergy Type Onset Date Status sulfamethoxazole / trimethoprim Bactrim hives Drug Allergy Active duloxetine Cymbalta Unknown Drug Allergy Active doxycycline Doxycycline Unknown Drug Allergy Act jeannette codeine Codeine stomach upset Drug Allergy Act jeannette duloxetine Duloxetine Unknown Drug Allergy Activ e REASON FOR VISIT At Risk Footcare, Toe Irritation Medications Medication SIG (Take, Route, Frequency, Duration) Notes Start Date End Date Status Hydroxychloroquine Sulfate 200 MG as directed Orally Unknown Iron 27 240 (27 Fe) MG 1 tablet with barrington er or juice between meals Orally Once a day for 30 day(s) Unknown Gabapentin 600 MG 1 tablet Orally Once a day for 30 day(s) Unknown HumaLOG 100 UNIT/ML as directed Subcutaneous 40 units Unknown Furosemide Unknown Atorvastatin Calcium 20 MG 1 tablet Orally Once a day for 30 day(s) Unknown Famotidine 40 MG 1 tablet at bedtime as needed Orally Once a day Unknown Aspirin 81 MG 1 tablet Orally Once a day for 30 day(s) Unknown Folic Acid 1 MG 1 tablet Orally Once a day for 30 day(s) Unknown Fluticasone Propionate 50 MCG/ACT 1 spray in each nostril Nasally Once a day for 30 day(s) Unknown Zoledronic Acid Unkn own oxyBUTYnin Unknown Vitamin D Unknown Albuterol Active Lisinopril 10 MG 1 tablet Orally Once a day for 30 day(s) Active Omeprazole 40 MG 1 capsule 30 minutes before morning meal Orally Once a day for 30 day(s) Unknown Clopidogrel Bisulfate 75 MG 1 tablet Orally Once a day for 30 day(s) Unknown Generlac 10 GM/15ML 15 mL as needed Orally Once a day Active Acetaminophen ER 500mg Act jeannette Ferrous Sulfate ER A ctive Extra Depth Orthopedic Shoes (1 Pair) with Customized Heat Molded Multidensity Innersoles (3 Pair) as directed Dx: NIDDM/Polyneuropathy (E11.42), Hammertoe Foot Deformity (M20.41,M20.42), Preulcerative Skin Lesion(s) (L85.1 12/11/2023 Unknown Sucralfate Unknown Ammonium Lactate 12 % 1 application Externally Twice a day for 30 days Unknown Methotrexate Sodium 15 MG as directed Orally Unknown ProAir HFA 108 (90 Base) MCG/ACT 2 puff as needed Inhalation every 6 hours PRN Unknown Lidocaine 5 % 1 patch remove after 12 hours Externally Once a day Unknown Lisinopril-hydroCHLOROthi azide Unknown lamoTRIgine 25 MG 1 tablet Orally for 30 day(s) 2 in AM 2 in PM Unknown Lantus 100 UNIT/ML as directed Subcutaneous Unknown metroNIDAZOLE 1 % 1 application Externally Once a day Unknown Social History Tobacco Use: Social History Observation [...] Problem Status W/U Status Risk Notes Problem Essential hypertension (77056353) Essential hypertension (I10) Active confirmed Vital Signs Height 7sa37mm in 06/10/2024 Weight 146 lbs 06/10/2024 BMI 30.51 kg/m2 06/10/2024 Blood pressure systolic 109 mm Hg 06/10/20 24 Blood pressure diastolic 54 mm Hg 024 Procedures Procedure Date Ordered Date Performed Result Body Sit e 39845-AQSSJND NAIL, 6 OR MORE 06/10/2024 N/A 00362-NMYH SKIN LESIONS, OVER 4 06/10/2024 N/A Encounters Encounter Location Date Provider Diagnosis [facility] [address] [address] 06/10/2024 Antonio Giles Type 2 diabetes mellitus with diabetic polyneuropathy E11.42 ; Tinea unguium B35.1 ; Other hammer toe(s) (acquired), right foot M20.41 and Other hammer toe(s) (acquired), left foot M20.42 Assessments Encounter Date Diagnosis (ICD Code) Assessment Notes Treatment Notes Treatment Clinical Notes Section Notes 06/10/2024 Type 2 diabetes mellitus with diabetic polyneuropathy (ICD-10 - E11.42) 06/10/2024 Tinea unguium (ICD-10 - B35.1) 06/10/2024 Other hammer toe(s) (acquired), right foot (ICD-10 - M20.41) Response to treatment,Impro vement 06/10/2024 Other hammer toe(s) (acquired), left foot (ICD-10 - M20.42) Response to treatment,Impro vement Plan Of Treatment Pending Test Test Name Order Date [id number]-LOHVICB NAIL, 6 OR MORE 06/10/2024 46722-OTBZ SKIN LESIONS, OVER 4 06/10/20 24 Next Appt Details Follow Up: prn, Reason: Provider Name:Antonio Giles , 09/16/2024 10:30:00 AM, [address] [place] [address], [phone], Procedure Notes * Category Sub-Category Detail Notes Debride Nail 6-10 Nail debridement Due to the cl inical pathology outlined in the exam findings, performance of this nail treatment is medically necessary as its management by an unskilled/untrained nonprofessional would put this patients foot and overall health at risk. Therefore, debridement to affected nail(s), as described in exam ( TA, T1, T2, T3, T4, T5, T6, T7, T8, T9), was performed exclusively by the physician of record to reduce/remove overall nail length, girth, thickness, subungual debris, and necrotic tissue, by manual and/or electrical means through the use of a nail nipper and/or dremel-type carbide grinder, to a more viable healthy nail plate or bed tissue 6-10 nails in total. Silver nitrate was used for any petechial bleeding as necessary. Definitive antifungal treatment options, both pharmaceutical and surgical, have been reviewed and discussed with the patient. The patient solely prefers the use of intermittent/as needed professional debridement services for their nail condition and understands the need for additional periodic treatments to maintain effectiveness in symptomatic relief - 28750 Keratoma Treatment Parring or Cutting o f Benign Hyperkeratotic Lesion(s) (-57) More than 4 Lesions - Due to the at risk nature of the patients medical condition as documented in the exam findings, performance of this keratoderma treatment is medically necessary as its management by an unskilled/untrained nonprofessional would put this patients foot and overall health at risk. Therefore, the benign hyperkeratotic lesions, ( 6) in total, locations as stated and described in the exam ( SUB MTH (s), 1, B/L , SUB MTH (s), 5, B/L , SUB 5th MTBase, B/L), were pared, and/or cut utilizing a sterile 15 blade, tissue nippers, and/or power dremel instrumentation by the physician of record - 46506 Progress Notes * Jose JACKSONOB:1950 ([age] yo F)Acc No.[id number]:06/10/2024 Progress Note Patient:Kriss HARRISON Provider:?Antonoi Giles DPM :1950???Age:73 Y???Sex:Female D ate:06/10/2024 Address:[address] [place] [id number] Pcp:Angel Pablo Subjective: * Chief Complaints: * ???At Risk FootcareToe Irrit ation * HPI: ???At Risk footcare:?Pt States Last PCP Visit:?Date?05/30/2024 ???Toe pain:?Treatments:?Rx shoes .? * ROS:?General/Constitutional:?Nausea?denies.?Vomiting?denies.?Hunger Thirst?denies.?Loss appetite?denies.?Chills?denies.?Fatigue?admits.?Fever?denies.?Night Sweats?admits.?Unexplained weight loss?denies.?Unexplained [...] yes, housework,shooping. ?Marital status: . 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 * Medications:?TakingAcetamino phen ER , Notes to Pharmacist: 500mgFerrous Sulfate ER Generlac 10 GM/15ML Solution 15 mL as needed Orally Once a day Albuterol Lisinopril 10 MG Tablet 1 tablet Orally Once a day Taking Acetaminophen ER , Notes to Pharmacist: 500mgTaking Ferrous Sulfate ER Taking Generlac 10 GM/15ML Solution 15 mL as needed Orally Once a day Taking Albuterol Taking Lisinopril 10 MG Tablet 1 tablet Orally Once a day UnknownoxyBUTYnin Vitamin D Zoledronic Acid Aspirin 81 MG Tablet Delayed Release 1 tablet Orally Once a day Atorvastatin Calcium 20 MG Tablet 1 tablet Orally Once a day Famotidine 40 MG Tablet 1 tablet at bedtime as needed Orally Once a day Folic Acid 1 MG Tablet 1 tablet [...] Foot Deformity (M20.41,M20.42), Preulcerative Skin Lesion(s) (L85.1 Clopidogrel Bisulfate 75 MG Tablet 1 tablet Orally Once a day Omeprazole 40 MG Capsule Delayed Release 1 capsule 30 minutes before morning meal Orally Once a day Medication List reviewed and reconciled with the patientUnknown oxyBUTYnin Unknown Vitamin D Unknown Zoledronic Acid Unknown Aspirin 81 MG Tablet Delayed Release 1 tablet Orally Once a day Unknown Atorvastatin Calcium 20 MG Tablet 1 tablet Orally Once a day Unknown Famotidine 40 MG Tablet 1 tablet at bedtime as needed Orally Once a day Unknown Folic Acid 1 MG Tablet 1 tablet Orally Once a day Unknown Fluticasone Propionate 50 MCG/ACT Suspension 1 spray in each nostril Nasally Once a day Unknown Furosemide Unknown Gabapentin 600 MG Tablet 1 tablet Orally Once a day Unknown HumaLOG 100 UNIT/ML Solution as directed Subcutaneous , Notes to Pharmacist: 40 unitsUnknown Hydroxychloroquine Sulfate 200 MG Tablet as directed Orally Unknown Iron 27 240 (27 Fe) MG Tablet 1 tablet with water or juice between meals Orally Once a day Unknown lamoTRIgine 25 MG Tablet 1 tablet Orally , Notes to Pharmacist: 2 in AM 2 in PMUnknown Lantus 100 UNIT/ML Solution as directed Subcutaneous Unknown Lidocaine 5 % Patch 1 patch remove after 12 hours Externally Once a day Unknown Lisinopril-hydroCHLOROthiazide Unknown metroNIDAZOLE 1 % Gel 1 application Externally Once a day Unknown Methotrexate Sodium 15 MG Tablet as directed Orally Unknown ProAir HFA 108 (90 Base) MCG/ACT Aerosol Solution 2 puff as needed Inhalation every 6 hours , Notes to Pharmacist: PRNUnknown Sucralfate Unknown Ammonium Lactate 12 % Cream 1 application Externally Twice a day Unknown Extra Depth Orthopedic Shoes (1 Pair) with Customized Heat Molded Multidensity Innersoles (3 Pair) as directed Dx: NIDDM/Polyneuropathy (E11.42), Hammertoe Foot Deformity (M20.41,M20.42), Preulcerative Skin Lesion(s) (L85.1 Unknown Clopidogrel Bisulfate 75 MG Tablet 1 tablet Orally Once a day Unknown Omeprazole 40 MG Capsule Delayed Release 1 capsule 30 minutes before morning meal Orally Once a day Medication List reviewed and reconciled with the patient * Allergies:?Bactrim: hivesCod eine: stomach upsetDoxycyclineDuloxetineCymbaltayes[Allergies Verified] Objective: * Vitals:?Ht:7da65ne, Wt:146, BMI:30.51, Shoe size:7, BP:109/54mm Hg, BS:not taken, Ht-cm: 147.32 cm, Wt-k.22 kg. * ???Past Orders: ???Lab:HEMOGLOBIN A1C (GLYCO HEMOGLOBIN) (Order Date - 12/11/2023) (Collection Date & Time - 10/24/2023) ? Value Reference Range ?TOTAL HEMOGLOBIN (HGBA1C) 5.2 * Examination: ???Neurological: ?SENSORY:? Neurological exam demonstrates, reduced light touch sensation, reduced sharp/dull pin prick discrimination , reduced vibration sensation, plantar aspects, B/L, 5.07 monofilament test performed at plantar aspects of 5 varied sites per foot shows sensation, reduced , B/L, Pt relates, paresthesia, pins and needles sensation, stinging, tingling, shooting/radiating sensation, B/L.?Nails: ?NAILS are:?Elongated, overgrown, dystrophic, lytic, greater than 3mm thick, discolored and friable with crumbly malodorous subungual debris, TA, T1, T2, T3, T4, T5, T6, T7, T8, T9.?Dermatologic: ?SKIN FINDINGS:?Skin exam reveals Keratotic lesion(s) located at SUB MTH (s), 1, B/L , SUB MTH (s), 5, B/L , SUB 5th MTBase, B/L.?Orthopedic: ?DIGITAL DEFORMITIES:?Digital contracture, PIPJ, 2-5 B/L, incompl-reducible to push-up test, no over, nor underlapping, no longer, with evidence of shoe producing skin irritation.?FOOTWEAR:?good condition, exhibit proper fit and accommodation for pedal deformities. OT were inspected and noted to be worn, but in good condition giving proper support at the present time.? Assessment: * Assessment: 1.?Type 2 diabetes mellitus with diabetic polyneuropathy - E11.42 (Primary)???2.?Tinea unguium - B35.1???3.?Other hammer toe(s) (acquired), right foot - M20.41???Specify :Chronic problem, Stable (1=3,2=4)???Notes :Response to treatment,Improvement???4.?Other hammer toe(s) (acquired), left foot - M20.42???Specify :Chronic problem, Stable (1=3,2=4)???Notes :Response to treatment,Improvement??? Plan: * Treatment: * Procedures:?Debride Nail 6-10:?Nail debridement?Due to the clinical pathology outlined in the exam findings, performance of this nail treatment is medically necessary as its management by an unskilled/untrained nonprofessional would put this patients foot and overall health at risk. Therefore, debridement to affected nail(s), as described in exam ( TA, T1, T2, T3, T4, T5, T6, T7, T8, T9), was performed exclusively by the physician of record to reduce/remove overall nail length, girth, thickness, subungual debris, and necrotic tissue, by manual and/or electrical means through the use of a nail nipper and/or dremel-type carbide grinder, to a more viable healthy nail plate or bed tissue 6- 10 nails in total. Silver nitrate was used for any petechial bleeding as necessary. Definitive antifungal treatment options, both pharmaceutical and surgical, have been reviewed and discussed with the patient. The patient solely prefers the use of intermittent/as needed professional debridement services for their nail condition and understands the need for additional periodic treatments to maintain effectiveness in symptomatic relief - 00808.?Keratoma Treatment:?Parring or Cutting of Benign Hyperkeratotic Lesion(s)?(-57) More than 4 Lesions - Due to the at risk nature of the patients medical condition as documented in the exam findings, performance of this keratoderma treatment is medically necessary as its management by an unskilled/untrained nonprofessional would put this patients foot and overall health at risk. Therefore, the benign hyperkeratotic lesions, ( 6) in total, locations as stated and described in the exam (?SUB MTH (s),?1,?B/L?,?SUB MTH (s),?5,?B/L?,?SUB 5th MTBase,?B/L), were pared, and/or cut utilizing a sterile 15 blade, tissue nippers, and/or power dremel instrumentation by the physician of record - 03688.? * Procedure Codes:?80006 DEBRI DE NAIL, 6 OR MORE, Modifiers: XS 19021 TRIM SKIN LESIONS, OVER 4, Modifiers: XS * Preventive Medicine:? ??Counseling:?Discussion:?-13: Office or other outpatient visit for the evaluation and management of an established patient, which required a medically appropriate history and/or examination and LOW level of DECISION MAKING for: 1 STABLE ACUTE UNCOMPLICATED PROBLEM, 2 OR MORE MINOR PROBLEMS, OR 1 STABLE CHRONIC PROBLEM, THAT POSE(S) A LOW RISK FOR MORBIDITY/MORTALITY. The visit on the day of the [...] the patient to call the office.?Shoe Gear Counseling:?A thorough inspection of the patients Rxed shoegear and inserts was performed and findings communicated. We reviewed the many important medical advantages for adhering to regularly wearing these shoe and insert accomidative devices daily as well as reviewed the fact that a failure in accepting these recommedations may be deleterious, unable to prevent, and disadvantagely result in, many pedal complications such as skin irritation, skin ulceration, infection, and even loss of toe/foot/leg/or even their life. Time was also spent reviewing the proper footcare techniques including daily skin moisturization, daily foot inspection for any interruption in skin integrity, open lesions, or sign of infection such as redness/malodor/drainage/swelling as well as daily shoe inspection for the presence of internal foreign bodies and shoe as well as insert wear. Patient questions re: shoes, inserts, and self foot inspections were answered to their satisfaction as the patient verbally confirmed a full understanding of the above information.? ??Screening/Special Tests:?Fall Risk?Assessment:?Performed ?Plan of Care:?Documented ?Screening:?Two or more falls with injury in the past year ?FALLS: Screening for Future Fall Risk?Have you had two or more falls in the past year??Yes ?Have you had any falls with injury in the past year??Yes * Follow Up:?prn * Images: * Sign off status: Completed true * Provider:?Antonio Giles DPM Date:?2023 Generated for Shanique alatorre/Lloyd/Jemalitting on:?06/24/2024 07:55 AM EST History and Physical Notes * HPI (History of Present Illness) Category Sub-Category Detail Notes Category Not es Toe pain Treatments: Rx shoes At Risk footcare Pt States Last PCP Visit: Date: 4 Examination Category Sub-Category Detail Notes Category Not es Neurological SENSORY: Neurological exa m demonstrates, reduced light touch sensation, reduced sharp/dull pin prick discrimination , reduced vibration sensation, plantar aspects, B/L, 5.07 monofilament test performed at plantar aspects of 5 varied sites per foot shows sensation, reduced , B/L, Pt relates, paresthesia, pins and needles sensation, stinging, tingling, shooting/radiating sensation, B/L Dermatologic SKIN FINDINGS: Skin exam reveal s Keratotic lesion(s) located at SUB MTH (s), 1, B/L , SUB MTH (s), 5, B/L , SUB 5th MTBase, B/L Orthopedic FOOTWEAR: good condition, exhibit proper fit and accommodation for pedal deformities. OT were inspected and noted to be worn, but in good condition giving proper support at the present time DIGITAL DEFORMITIES: Digital contracture , PIPJ, 2-5 B/L, incompl-reducible to push-up test, no over, nor underlapping, no longer, with evidence of shoe producing skin irritation Nails NAILS are: Elongated, overg rown, dystrophic, lytic, greater than 3mm thick, discolored and friable with crumbly malodorous subungual debris, TA, T1, T2, T3, T4, T5, T6, T7, T8, T9
--- OUTSIDE RECORDS SUMMARY | 2024-06-24 07:55 | XMS_ITS ---
Author Organization [facility] Address [address] [place] [address] Care Team Providers Care Organic Preparation Technician Name Role Phone Angel Pablo Primary Care Provider [phone] Antonio Giles Unavailable [phone] Allergies Allergen (clinical drug ingredient) Drug/Non Drug [...] other tobacco user? No Vital Signs Height [id number] in 05/16/2024 Weight 146 lbs 05/16/2024 BMI 30.51 kg/m2 05/16/2024 Blood pressure systolic 109 mm Hg 05/16/20 24 Blood pressure diastolic 54 mm Hg 024 Encounters Encounter Location Date Provider Diagnosis [facility] [place] [address] [place] [address] 05/16/2024 Antonio Montoyaunier Neuropathic ulcer of right [...] Provider Name:Antonio Giles , 09/16/2024 10:30:00 AM, [address] [place], [phone], Progress Notes * Jose JACKSONOB:1950 ([age] yo F)Acc No.[id number]:05/16/2024 Progress Notes Patient:Kriss HARRISON Provider:?Antonio Giles DPM :1950???Age:73 Y???Sex:Female D ate:05/16/2024 Address:[address] [place], [place] [id number] Pcp:Angel Pablo Subjective: * Chief Complaints: * [...] yes, housework,shooping. ?Marital status: . 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 * Medications:?TakingoxyBUTYni n Vitamin D Zoledronic Acid [...] hivesCod eine: stomach upsetDoxycyclineDuloxetineCymbaltayes[Allergies Verified] Objective: * Vitals:?Ht:8bc00dd, Wt:146, BMI:30.51, Shoe size:7, BP:109/54mm Hg, BS:not [...] Giles DPM Date:?2023 Generated for Shanique alatorre/Lloyd/Juancarlos on:?06/24/2024 07:55 AM EST History and Physical [...]
--- OUTSIDE RECORDS SUMMARY | 2024-06-24 07:56 | XMS_ITS | Patient Health Record ---
[facility] Address [address] [place] [address] Care Team Providers Care Visual Journalist Name Role Phone Angel Pablo Primary Care Provider [phone] Antonio Giles Unavailable [phone] Allergies Allergen (clinical drug ingredient) Drug/Non Drug [...] Range Notes HEMOGLOBIN A1C (GLYCOHEMOGLO BIN) Reviewed date:12/11/2023 09:43:09 AM Interpretation: Performing Lab: Notes/Report: TOTAL HEMOGLOBIN (HGBA1C) 5.2 Reason For Referral No Information Medications Medication SIG (Take, Route, Frequency, Duration) Notes Start Date End Date Status Generlac 10 GM/15ML 15 mL as needed Orally Once a day Active Acetaminophen ER 500mg Act jeannette metroNIDAZOLE 1 % 1 application Externally Once a day Unknown Ferrous Sulfate ER A ctive Atorvastatin Calcium 20 MG 1 tablet Orally Once a day for 30 day(s) Unknown Famotidine 40 MG 1 tablet at bedtime as needed Orally Once a day Unknown Zoledronic Acid Unkn own Omeprazole 40 MG 1 capsule 30 minutes before morning meal Orally Once a day for 30 day(s) Unknown Aspirin 81 MG 1 tablet Orally Once a day for 30 day(s) Unknown oxyBUTYnin Unknown Extra Depth Orthopedic Shoes (1 Pair) with Customized Heat Molded Multidensity Innersoles (3 Pair) as directed Dx: NIDDM/Polyneuropathy (E11.42), Hammertoe Foot Deformity (M20.41,M20.42), Preulcerative Skin Lesion(s) (L85.1 12/11/2023 Unknown Vitamin D Unknown Clopidogrel Bisulfate 75 MG 1 tablet Orally Once a day for 30 day(s) Unknown Albuterol Active Sucralfate Unknown Lisinopril 10 MG 1 tablet Orally Once a day for 30 day(s) Active Ammonium Lactate 12 % 1 application Externally Twice a day for 30 days Unknown Methotrexate Sodium 15 MG as directed Orally Unknown ProAir HFA 108 (90 Base) MCG/ACT 2 puff as needed Inhalation every 6 hours PRN Unknown Folic Acid 1 MG 1 tablet Orally Once a day for 30 day(s) Unknown Fluticasone Propionate 50 MCG/ACT 1 spray in each nostril Nasally Once a day for 30 day(s) Unknown Lidocaine 5 % 1 patch remove after 12 hours Externally Once a day Unknown Lisinopril-hydroCHLOROthi azide Unknown lamoTRIgine 25 MG 1 tablet Orally for 30 day(s) 2 in AM 2 in PM Unknown Lantus 100 UNIT/ML as directed Subcutaneous Unknown Hydroxychloroquine Sulfate 200 MG as directed Orally Unknown Iron 27 240 (27 Fe) MG 1 tablet with barrington er or juice between meals Orally Once a day for 30 day(s) Unknown Gabapentin 600 MG 1 tablet Orally Once a day for 30 day(s) Unknown HumaLOG 100 UNIT/ML as directed Subcutaneous 40 units Unknown Furosemide Unknown Immunizations Vaccine Route Administration Date Status Comme [...] Problem Acquired hammer toe of right foot (3740813374824695 ) Other hammer toe(s) (acquired), right foot (M20.41) Active confirmed Response to treatment, Improvemen t Problem Acquired hammer toe of left foot (4023349749055773 ) Other hammer toe(s) (acquired), left foot (M20.42) Active confirmed Response to treatment, Improvemen t Problem Polyneuropathy due to type 2 diabetes mellitus (902876313) Type 2 diabetes mellitus with diabetic polyneuropathy (E11.42) Active confirmed Problem Essential hypertension (23409674) Essential hypertension (I10) Active confirmed Vital Signs Blood pressure diastolic 54 mm Hg 06/10/2024 Height 3sf39ni in 06/10/2024 Blood pressure systolic 109 mm Hg 06/10/2024 Weight 146 lbs 06/10/2024 BMI 30.51 kg/m2 06/10/2024 Procedures Procedure Date Ordered Date Performed Result Body Sit e 88486-PYSOKDT NAIL, 6 OR MORE 09/11/2023 N/A 59620-PDVS SKIN LESIONS, OVER 4 09/11/2023 N/A 01297-FJUISWK NAIL, 6 OR MORE 12/11/2023 N/A 74067-Yysjnfml Plate 12/11/2023 N/A 36846-LJFV SKIN LESIONS, OVER 4 12/11/2023 N/A 46070-UKSUIFP NAIL, 6 OR MORE 03/11/2024 N/A 02807 I&D ABSCESS- SIMPLE,SINGLE 03/11/2024 N/A 95477-UQTY SKIN LESIONS, OVER 4 03/11/2024 N/A 73974-EDKSGFW SKIN/TISSUE 03/25/2024 N/A 87994- Debride <25 sq cm 04/15/2024 N/A 31159-BHVDCNT NAIL, 6 OR MORE 06/10/2024 N/A 39047-IMRF SKIN LESIONS, OVER 4 06/10/2024 N/A Encounters Encounter Location Date Provider Diagnosis [facility] [address] [address] 09/11/2023 Antonio Giles Type 2 diabetes mellitus with diabetic polyneuropathy E11.42 ; Onychomycosis B35.1 and Xerosis of skin L85.[address] [facility] [address] 12/11/2023 Antonio Giles Type 2 diabetes mellitus with diabetic polyneuropathy E11.42 ; Tinea unguium B35.1 ; Other hammer toe(s) (acquired), right foot M20.41 ; Other hammer toe(s) (acquired), left foot M20.42 and Ingrown nail L60.[address] [address] 03/11/2024 Antonio Giles Type 2 diabetes mellitus with diabetic polyneuropathy E11.42 ; Tinea unguium B35.1 and Abscess of right foot L02.[address] [address] 03/25/2024 Antonio Giles Abscess of right nichole t L02.611 and Neuropathic ulcer of right foot with fat layer exposed L97.[address] [address] 04/15/2024 Antonio Giles Neuropathic ulcer of right foot, limited to breakdown of skin L97.[address] [address] 05/16/2024 Antonio Giles Neuropathic ulcer of right foot, limited to breakdown of skin L97.[address] [address] 06/10/2024 Antonio Giles Type 2 diabetes mellitus with diabetic polyneuropathy E11.42 ; Tinea unguium B35.1 ; Other hammer toe(s) (acquired), right foot M20.41 and Other hammer toe(s) (acquired), left foot M20.[address] [address] 03/11/2024 Antonio Giles Assessments Encounter Date Diagnosis (ICD Code) Assessment Notes Treatment Notes Treatment Clinical Notes Section Notes 09/11/2023 Type 2 diabetes mellitus with diabetic [...] (ICD-10 - L97.511) Response to treatment,Impro vement 06/10/2024 Type 2 diabetes mellitus with diabetic polyneuropathy (ICD-10 - E11.42) 06/10/2024 Tinea unguium (ICD-10 - B35.1) 06/10/2024 Other hammer toe(s) (acquired), right foot (ICD-10 - M20.41) Response to treatment,Impro vement 03/25/2024 Neuropathic ulcer [...] 09/11/2023 Xerosis of skin (ICD-10 - L85.3) 12/11/2023 Other hammer toe(s) (acquired), left foot (ICD-10 - M20.42) 06/10/2024 Other hammer toe(s) (acquired), left foot (ICD-10 - M20.42) Response to treatment,Impro vement 12/11/2023 Ingrown nail (ICD-10 - L60.0) 03/11/2024 Other 03/25/2024 Other Plan Of Treatment Pending Test Test Name Order Date X ray : Foot, left 3V 03/03/2022 X ray : Foot, right 3V 03/03/2022 50872-PHTOWNG NAIL, 6 OR MORE 03/11/2024 48328-TUCGNQJ NAIL, 6 OR MORE 09/11/2023 22943-RIRQJVU NAIL, 6 OR MORE 12/11/2023 97208-SIZTUYR NAIL, 6 OR MORE 09/08/2022 68561-AQQBYAK NAIL, 6 OR MORE 12/08/2022 64219-HGWNREX NAIL, 6 OR MORE 03/09/2023 36490-PGTXWAU NAIL, 6 OR MORE 06/08/2023 64061-JNCJQYB NAIL, 6 OR MORE 06/02/2022 98274-UKULBGZ NAIL, 6 OR MORE 03/03/2022 51201-LQWABAL NAIL, 6 OR MORE 08/30/2021 57504-HNKDJTD NAIL, 6 OR MORE 12/02/2021 78177-CCMGUZK NAIL, 6 OR MORE 06/08/2020 74678-ULPSTHS NAIL, 6 OR MORE 09/03/2020 11782-MUBFNLO NAIL, 6 OR MORE 12/10/2020 00058-WWRDMVW NAIL, 6 OR MORE 03/22/2021 96809-VNXUIZY NAIL, 6 OR MORE 06/10/2024 43447-Rqmoaubg Plate 12/11/2023 57309- Debride <25 sq cm 04/15/2024 00858-EEGTZNQ SKIN/TISSUE 03/25/2024 57833 I&D ABSCESS- SIMPLE,SINGLE 024 98031-ZLQR SKIN LESIONS, OVER 4 06/10/20 24 32744-IPVR SKIN LESIONS, OVER 4 03/11/20 24 25697-KMVK SKIN LESIONS, OVER 4 12/11/19 24 55480-NDLS SKIN LESIONS, OVER 4 09/11/19 24 05674-HEBS SKIN LESIONS, OVER 4 06/08/20 23 49790-SGUQ SKIN LESIONS, OVER 4 03/09/20 23 31096-WHCY SKIN LESIONS, OVER 4 12/09/19 23 14422-PKZO SKIN LESIONS, OVER 4 09/09/19 23 32715-XYTZ SKIN LESIONS, OVER 4 03/22/20 21 77022-LQUI SKIN LESIONS, OVER 4 12/11/19 21 89809-KMKT SKIN LESIONS, OVER 4 09/04/19 21 33868-BQSP SKIN LESIONS, OVER 4 06/08/20 20 30815-NATT SKIN LESIONS, OVER 4 12/03/19 22 85889-MGKE SKIN LESIONS, OVER 4 08/31/19 96134-OHNN SKIN LESIONS, OVER 4 03/03/20 95193-PIWO SKIN LESIONS, OVER 4 06/02/20 Next Appt Details Provider Name:Antonio Giles , 09/16/2024 10:30:00 AM, [address] [place], [address], Insurance Providers Payer Name Payer Address Payer Phone Subscriber Number Group Number Insured Name Patient Relationship to Insured Coverage Start Date Coverage End Date Medicare National [employer] [address] [place] [address] [id number] Kriss Jackson Self - patient is the insured [employer] [address] [place] [address] [phone] [id number] Kriss Jackson Self - patient is the [...]
--- OUTSIDE RECORDS SUMMARY | 2024-06-24 07:56 | XMS_ITS ---
tablet active 1 BiD Not Available Not Available Not Available cefpodoxi me 200 mg tablet TK 1 T PO Q 12 H FOR 7 DAYS active Not Available Not Available No t Available lisinopri l 20 mg-hydroc hlorothia zide 12.5 mg tablet TAKE 1 TABLET BY MOUTH EVERY MORNING 02/20 completed Not Available Not Available Not Available glyburide 5 mg tablet 2006 active Take 1.00 tabs twice daily Not Available Not Available Not Available prednison e 5 mg tablet Take 1 tablet every day by oral route. 02/20 completed Not Available Not Available Not Available Kalee 60 mg tablet active 1 bid Not Available Not Available Not Available clopidogr el 75 mg tablet TK 1 T PO QD active Not Available Not Available No t Available prochlorp erazine maleate 10 mg tablet 06/27 completed Not Available Not Available Not Available lamotrigi ne 25 mg tablet TK 2 TS PO QD 02/20 completed Not Available Not Available Not Available prednison e 1 mg tablet TK 4 TS PO QAM WITH BELKIS active Not Available Not Available No t Available [employer] Ultra Test strips USE TO TEST 3-4 TIMES DAILY FOR 30 DAYS active Not Available Not Available No t Available benzonata te 100 mg capsule TAKE ONE CAPSULE BY MOUTH 3 TIMES A DAY NEEDED 11/13 completed Not Available Not Available Not Available gemfibroz il 600 mg tablet TAKE 1 TABLET TWICE A DAY 12/27 completed changed to atorvast atin Not Available Not Available Not Available nystatin 100,000 unit/gram topical cream 2007 active Take 1.00 applics 3 times daily Not Available Not Available Not Available ranitidin e 150 mg tablet Take 1 tablet every day by oral route. active at night per ENT,-pt states she stopped this med & started on ranitadi ne/olga lidia Not Available Not Available Not Available lidocaine 5 % topical patch APPLY 1 PATCH EXTERNAL LY TO THE SKIN DAILY. MAY WEAR FOR UP TO 12 HOURS active Not Available Not Available No t Available Advair Diskus 250 mcg-50 mcg/dose powder for inhalatio n TAKE 1 INHALATI ON BY MOUTH TWICE DAILY 2008 active Not Available Not Available Not Avai lable gabapenti n 300 mg capsule TAKE 5 CAPSULES BY MOUTH EVERY DAY AT BEDTIME 11/13 completed per [facility] d/c 11/08/17 new dose as follows: 600 mg tablet take 1200 mg at bedtime Not Available Not Available Not Available omeprazol e 20 mg capsule,d elayed release TAKE 1 CAPSULE BY MOUTH TWICE DAILY BEFORE MEALS active Not Available Not Available No t Available folic acid 1 mg tablet Take 1 tablet every day by oral route as directed for 30 days. active Not Available Not Available No t Available bisacodyl 5 mg tablet,de layed release TAKE 4 TABS WITH 8 OUNCE WATER AND DRINK BEFORE PROCEDUR E 06/27 completed Not Available Not Available Not Available aspirin 81 mg tablet take 1 tab daily po 2006 active Not Available Not Available Not Avai lable diazepam 10 mg tablet Take 1 hour before biopsy 03/23 completed Not Available Not Available Not Available hydroxych loroquine 200 mg tablet TAKE 2 TABLETS BY MOUTH EVERY DAY AT BEDTIME active Not Available Not Available No t Available lisinopri l 10 mg-hydroc hlorothia zide 12.5 mg tablet TK 1 T PO QD active Not Available Not Available No t Available levofloxa pam 500 mg tablet Take 1 tablet every 24 hours by oral route for 5 days. 11/30 completed Not Available Not Available Not Available fluocinon ra 0.05 % topical cream APPLY TO AFFECTED AREA TWICE A DAY FOR 90 DAYS active Not Available Not Available No t Available fluticaso ne propionat e 50 mcg/actua tion nasal spray,cecile pension USE 1 SPRAY IN EACH NOSTRIL EVERY BID NEEDED 2017 active Not Available Not Available Not Avai lable Augmentin 500 mg-125 mg tablet Take 1 tablet twice a day by oral route. 2010 active Not Available Not Available Not Avai lable amoxicill in 875 mg-potass ium clavulana te 125 mg tablet TK 1 T PO Q 12 H FOR 10 DAYS 12/31 completed Not Available Not Available Not Available oxycodone 5 mg tablet 2007 active Take 1.00 tabs every 4 hours as needed Not Available Not Available Not Available Mucinex 600 mg tablet, extended release Take 1 tablet twice a day by oral route. 2013 active Not Available Not Available Not Avai lable duloxetin e 20 mg capsule,d elayed release take 1 tab daily po active Not Available Not Available No t Available OneTouch UltraSoft Lancets Test 2 to 3 times per dayas directed active Not Available Not Available No t Available lamotrigi ne 25 mg (35) tablets in a dose pack Take 2 tablets every day by oral route. 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 Meng) Not Available Not Available Not Available fluocinon ra 0.1 % topical cream Apply a thin film to the affected skin areas by topical route once daily 2009 active Not Available Not Available Not Avai lable Flovent HFA 110 mcg/actua tion aerosol inhaler INHALE 1 PUFF TWICE A DAY 2017 active Not Available Not Available Not Avai lable methotrex ate 2.5mg 6 tabs one day weekly active 12/31/13 pt states she takes another med called ravoso/j d Not Available Not Available Not Available Novolog U-100 Insulin aspart 40 units before each meal active 12/31/14 pt states she is no longer taking/j d Not Available Not Available Not Available Levemir FlexPen 100 unit/mL (3 mL) solution subcutane ous insulin pen INJECT DOSEAGE ACCORDIN G TO BLOOD SUGAR RESULTS 2008 active 150units qhs, 12/31/14 pt states pc stopped this med/olga lidia Not Available Not Available Not Available ProAir HFA 90 mcg/actua tion aerosol inhaler TAKE 2 PUFFS BY MOUTH EVERY 4 HOURS NEEDED active Not Available Not Available No t Available Januvia 100 mg tablet take 1 tablet by mouth once daily 2008 active last diab mgt 07/14/08 diab. bw done 07/07/08 PHA 11/05/07- exsistin g tyler for 2008 pha Not Available Not Available Not Available peg 3350-elec trolytes 236 gram-22.7 4 gram-6.74 gram-5.86 gram solution 06/27 completed Not Available Not Available Not Available Lantus Solostar U-100 Insulin 100 unit/mL (3 mL) subcutane ous pen INJECT 150 UNITS SUBCUTAN EAOUSLY IN DIVIDED DOSES DAILY DIRECTED active Not Available Not Available No t Available Humalog KwikPen (U-100) Insulin 100 unit/mL subcutane ous INJECT 40 UNITS SQ TID active Not Available Not Available No t Available Humalog KwikPen Insulin 25-40uni ts after each meal if needed 04/30 completed Not Available Not Available Not Available Novofine 32 32 gauge x 1/4 needle USE 4 TIMES A DAY 2014 active Not Available Not Available Not Avai lable Novofine 31 gauge x 1/4 needle use 1 once daily as directed 2008 active Not Available Not Available Not Avai lable BD Ultra-Fin e [place] Pen Needle 32 gauge x 5/32 USE TO INJECT INSULIN QID active Not Available Not Available No t Available Rasuvo (PF) 20 mg/0.4 mL subcutane ous auto-inje ctor Inject 0.4 mL every week by subcutan eous route. 12/25 completed Not Available Not Available Not Available OneTouch Ultra Blue Test Strip USE TO TEST BLOOD SUGAR QID active Not Available Not Available No t Available Vitals Date Recorded Body height Body mass index (BMI) Body weight Heart rate Oxygen saturation Oxygen saturation in Arterial blood by Pulse oximetry Systolic blood pressure Diastolic blood pressure Provider Name and Address Organization Details Last Updated DateTime 8 147.95 cm 35.9 kg/m2 61507.1 8 g 80 /min 97 % 97 % 126 mm[Hg] 74 mm[Hg] Sarah Jewell MA [facility] 8 10:50:58 Date Recorded Body height Body mass index (BMI) Body weight Heart rate Systolic blood pressure Diastolic blood pressure Provider Name and Address Organization Details Last Updated DateTime 9 147.95 cm 35.7 kg/m2 93357.6 9 g 64 /min 90 mm[Hg] 54 mm[Hg] Marcia Baron MA [facility] 9 11:24:40 Date Recorded Body height Body mass index (BMI) Body weight Oxygen saturation Oxygen saturation in Arterial blood by Pulse oximetry Heart rate Systolic blood pressure Diastolic blood pressure Provider Name and Address Organization Details Last Updated DateTime 9 147.95 cm 36.3 kg/m2 72170.7 6 g 96 % 96 % 76 /min 120 mm[Hg] 62 mm[Hg] Sarah Jewell MA [facility] 9 14:52:36 Date Recorded Systolic blood pressure Diastolic blood pressure Systolic blood pressure Diastolic blood pressure Provider Name and Address Organization Details Last Updated DateTime 12/31/2018 120 mm[Hg] 60 mm[Hg] 120 mm[Hg] 60 mm[Hg] Kassie Reynolds [facility] 9 15:58:43 Date Recorded Body height Body mass index (BMI) Body weight Body temperature Heart rate Oxygen saturation Oxygen saturation in Arterial blood by Pulse oximetry Systolic blood pressure Diastolic blood pressure Provider Name and Address Organization Details Last Updated DateTime 9 147.95 cm 35.9 kg/m2 99980.5 8 g 97.9 [degF] 88 /min 96 % 96 % 114 mm[Hg] 62 mm[Hg] Brooks laurent [facility] 9 09:44:29 Social History Question Answer Notes LastModified by Organizat ion Details LastModified Time Tobacco Smoking Status Never Smoker Not Available [facility] 05/11/2011 04:54:19 Do You Have An Advance Directive? No Information not available 12/11/2013 What Is Your Level Of Alcohol Consumption? Occasional Once Yearly Maybe [email or web address] Information not available 12/31/2018 Do You Wear A Helmet When Biking? No Information not available 06/23/2014 What Is Your Level Of Caffeine Consumption? Moderate 4 Cups Tea Daily [email or web address] Information not available 12/27/2017 How Much Tobacco Do You Chew? None [email or web address] Information not available 05/11/2011 What Type Of Diet Are You Following? REGULAR [email or web address] Information not available 05/11/2011 Which Illicit Or Recreational Drugs Have You Used? None spise Information not available 08/29/2018 Do You Or Have You Ever Used E-cigarettes Or Vape? Never Used Electronic Cigarettes Information not available 02/20/2019 What Is Your Occupation? Retired Health Information [facility] Information not available 12/31/2018 How Many Days In The Past Year Have You Had A Heavy Drinking Consumption (4+ Female, 5+ Male)? 0 Information not available 11/30/2016 Are There Any Guns Present In Your Home? No [email or web address] Information not available 05/11/2011 Live Alone Or With Others? With Others Sister, Uncle, Brother In Law [facility] Information not available 06/12/2013 CSRP - Narcotics No Information not available 06/23/2014 CSRP Contract Signed And Discussed No Information not available 06/23/2014 Does The Patient Have Difficulty Speaking Nepalese? No [email or web address] Information not available 05/11/2011 Does The Patient Have Difficulty Reading Nepalese? No [email or web address] Information not available 05/11/2011 Patient Has Health Care Proxy Signed And In Chart No Information not available 12/11/2013 CSRP - Stimulants No Information not available 06/23/2014 CSRP - Suboxone No Informati on not available 07/22/2015 CCM Consent Discussion 04/30/2018 amada Information not available 04/30/2018 Marital Status Information not available 05/11/2011 Mosquito Repellent Used Routinely Yes [email or web address] Information not available 05/11/2011 What Was The Date Of Your Most Recent Tobacco Screening? 02/20/2019 Information not available 02/20/2019 How Many Children Do You Have? 3 Yes Information not available 06/12/2013 Seat Belts Used Routinely Yes [email or web address] Information not available 05/11/2011 Smoke Alarm In Home Yes [email or web address] Information not available 05/11/2011 Do You Or Have You Ever Used Smokeless Tobacco? Never Used Smokeless Tobacco Information not available 02/20/2019 How Much Tobacco Do You Smoke? No Information not available 04/29/2015 General Stress Level Medium Information not available 04/29/2015 Do You Use Sunscreen Routinely? Yes [email or web address] Information not available 05/11/2011 Sex: Unknown Functional Status None recorded. Mental Status None recorded. Family History Relationship Description Onset Age of this Age Resolved Age Notes LastModified by Organization Details LastModified Time Sister Diabetes mellitus [email or web address] Not available 2015 16:41:38 Notes:Diabetes. Sister with brain tumor. Medical History Condition Response Diabetes Type II Y Hyperlipidemia Y Osteoarthritis Y Hypertension Y Asthma Y Gynecological HistoryNo gynecological history recorded. Obstetrics History GPAL:G 0 P 0 0 0 0 Immunizations Vaccine Type Date Status Note Provider Nam e and Address Organization Details Recorded Time tetanus toxoid, unspecified formulation 1 completed Not Available [facility] 07/12/2019 02:34:13 influenza, unspecified formulation 0 completed Not Available [facility] 05/10/2011 05:22:52 Influenza, split virus, trivalent, preservative 1 completed Mary Watts MA [facility] 05/17/2011 14:09:08 Tdap 1 completed Fang Robison RN [facility] 06/12/2011 16:12:51 influenza, unspecified formulation 2 completed Mary Finley MA [facility] 05/21/2012 16:38:35 influenza, unspecified formulation 3 completed [facility] 06/12/2013 16:12:54 influenza, unspecified formulation 4 completed [facility] 06/23/2014 15:26:51 influenza, unspecified formulation 5 completed [facility] 04/29/2015 14:13:29 Pneumococcal conjugate PCV 13 8 completed Not Available [facility] 07/12/2019 02:22:36 Hep B, adult 9 completed Not Available [facility] 07/12/2019 02:34:54 influenza, unspecified formulation 6 completed Not Available [facility] 07/26/2019 02:10:42 pneumococcal polysaccharide PPV23 9 completed Not Available [facility] 07/12/2019 02:24:02 Influenza, split virus, quadrivalent, preservative 7 completed Liz Boyec CMA [facility] 05/03/2017 14:36:38 Past Encounters Encounter ID Performer Location Encounter Start Date Encounter Closed Date Diagnosis/Indication Diagnosis SNOMED-CT Code Diagnosis ICD10 Code [id number] [facility], OFFICE [address] [place] [address] 09/14/2000 12:00:00 07/15/2008 02:02:29 [id number] [facility], OFFICE [address] [place] [address] 10/16/2000 10:45:00 07/15/2008 02:02:29 [id number] RAJEEV [facility], OFFICE [address] [place] [address] 02/28/2001 14:15:00 07/15/2008 02:02:29 [id number] RAJEEV [facility], OFFICE [address] [place] [address] 03/01/2001 09:45:00 07/15/2008 02:02:29 [id number] RAJEEV [facility], OFFICE [address] [place] [address] 10/22/2001 09:00:00 07/15/2008 02:02:29 [id number] LAB - [facility] [address] [place] [address] 10/22/2001 10:30:00 07/15/2008 02:02:29 [id number] RAJEEV [facility], OFFICE [address] [place] [address] 12/02/2001 08:19:54 07/15/2008 02:02:29 [id number] Radiology , [facility] [address] [place] [address] 12/02/2001 11:21:25 07/15/2008 02:02:29 [id number] LAB - [facility] [address] [facility] [place] [address] 04/24/2002 08:28:24 07/15/2008 02:02:29 [id number] RAJEEV [facility], OFFICE [address] [facility] [place] [address] 04/30/2002 16:42:20 07/15/2008 02:02:29 [id number] LAB - [facility] 70 [facility] [place] [address] 07/22/2002 09:02:09 07/15/2008 02:02:29 [id number] RAJEEV [facility], OFFICE [address] [place] [address] 07/29/2002 16:39:59 07/15/2008 02:02:29 [id number] RAJEEV [facility], OFFICE [address] [facility] [place] [address] 10/30/2002 11:15:27 07/15/2008 02:02:29 [id number] LAB - [facility] 70 [facility] [place] [address] 10/30/2002 12:12:41 07/15/2008 02:02:29 [id number] RAJEEV [facility], OFFICE [address] [place] [address] 12/31/2002 10:02:51 07/15/2008 02:02:29 [id number] LAB - [facility] [address] [place] [address] 12/31/2002 00:00:00 07/15/2008 02:02:29 [id number] LAB - [address] [place] [address] 01/13/2003 11:28:31 07/15/2008 02:02:29 [id number] Radiology , [facility] [address] [place] [address] 01/15/2003 08:55:54 07/15/2008 02:02:29 [id number] RAJEEV [facility], OFFICE [address] [place] [address] 07/03/2003 16:41:59 07/04/2003 10:51:01 [id number] RAJEEV [facility], OFFICE [address] [place] [address] 10/13/2003 14:52:44 10/14/2003 08:39:08 [id number] LAB - [facility] [address] [place] [address] 10/22/2003 08:14:06 10/22/2003 08:14:10 [id number] RAJEEV [facility], OFFICE [address] [place] [address] 12/10/2003 14:34:40 12/12/2003 13:55:58 [id number] LAB - [facility] [address] [place] [address] 03/30/2004 08:05:15 03/30/2004 08:05:20 [id number] RAJEEV [facility], OFFICE [address] [place] [address] 07/04/2004 13:43:22 07/04/2004 17:14:21 [id number] RAJEEV [facility], OFFICE [address] [place] [address] 07/26/2004 09:25:43 07/27/2004 08:19:25 [id number] RAJEEV [facility], OFFICE [address] [place] [address] 08/08/2004 15:52:00 08/09/2004 08:55:32 [id number] RAJEEV [facility], OFFICE [address] [place] [address] 09/05/2004 07:59:25 09/05/2004 15:25:12 [id number] [facility], OFFICE [address] [place] 6 09/19/2004 13:51:52 09/19/2004 17:45:01 [id number] LAB - [facility] [address] [place] [address] 10/05/2004 08:38:59 10/05/2004 08:39:04 [id number] [facility], OFFICE [address] [place] [address] 10/10/2004 07:58:34 10/10/2004 14:31:17 [id number] [facility], OFFICE [address] [place] [address] 11/03/2004 13:44:09 07/15/2008 02:02:29 [id number] LAB - [facility] [address] [place] [address] 01/16/2005 08:22:10 01/16/2005 08:22:26 [id number] [facility], OFFICE [address] [facility] [place] [address] 01/24/2005 08:00:36 07/15/2008 02:02:29 [id number] Radiology , [facility] [address] [place] [address] 02/13/2005 11:40:53 07/15/2008 02:02:29 [id number] Radiology , [facility] 70 [facility] [place] [address] 02/13/2005 00:00:00 07/15/2008 02:02:29 [id number] [facility], OFFICE [address] [facility] [place] [address] 04/12/2005 08:22:15 07/15/2008 02:02:29 [id number] [facility], OFFICE [address] [facility] [place] [address] 04/28/2005 16:18:32 07/15/2008 02:02:29 [id number] LAB - [facility] [address] [place] [address] 08/22/2005 08:28:59 08/22/2005 08:29:02 [id number] [facility], OFFICE [address] [facility] [place] [address] 08/28/2005 15:40:14 08/29/2005 08:44:57 [id number] [facility], OFFICE [address] [place] [address] 09/21/2005 14:22:16 07/15/2008 02:02:29 [id number] LAB - [facility] [place] [address] 09/21/2005 15:10:47 09/21/2005 15:11:05 [id number] LAB - [facility] [address] [place] [address] 01/23/2006 08:32:14 01/23/2006 08:32:24 [id number] [facility], OFFICE [address] [place] [address] 02/05/2006 11:04:33 02/06/2006 09:17:09 [id number] [facility], OFFICE [address] [place] [address] 03/21/2006 10:05:20 03/22/2006 08:20:24 [id number] [facility], OFFICE [address] [place] [address] 04/04/2006 11:34:15 04/08/2006 09:14:42 [id number] LAB - [facility] [place] [address] 04/25/2006 08:18:53 04/25/2006 08:19:04 [id number] [facility], OFFICE [address] [place] [address] 05/03/2006 09:59:10 05/04/2006 08:46:05 [id number] Radiology , [facility] [address] [place] [address] 05/08/2006 08:08:08 07/15/2008 02:02:29 [id number] Radiology , [facility] [address] [place] [address] 05/08/2006 00:00:00 07/15/2008 02:02:29 [id number] [facility], OFFICE [address] [place] [address] 07/31/2006 08:56:23 07/31/2006 14:16:09 [id number] LAB - [facility] [address] [place] [address] 07/31/2006 10:36:02 07/31/2006 10:36:06 [id number] RAJEEV [facility], OFFICE [address] [place] 6 08/07/2006 08:36:04 08/08/2006 08:58:07 [id number] LAB - [facility] [address] [place] Maldonado62[address] 6 10/22/2006 08:25:40 10/22/2006 08:25:45 [id number] RAJEEV [facility], OFFICE [address] [place] 6 10/29/2006 07:59:04 10/29/2006 10:37:03 [id number] LAB - [facility] [address] L[place] Maldonado62[address] 6 10/30/2006 08:27:25 10/30/2006 08:27:30 [id number] [facility], OFFICE [address] [place] 6 11/26/2006 10:44:18 11/26/2006 15:10:48 [id number] LAB - [facility] LISANDRO Banks62[address] 6 11/26/2006 11:29:37 11/26/2006 11:29:44 [id number] [facility], OFFICE [address] [place] 6 12/06/2006 14:26:14 12/07/2006 08:30:34 [id number] RAJEEV [facility], OFFICE [address] [place] 6 12/10/2006 13:46:03 12/11/2006 09:05:34 [id number] LAB - [facility] LISANDRO Banks62[address] 6 12/10/2006 14:31:03 12/10/2006 14:31:43 [id number] LAB - [facility] [address] [place] Maldonado62[address] 6 01/04/2007 07:54:29 01/04/2007 07:54:36 [id number] LAB - [facility] LISANDRO Banks62[address] 6 04/08/2007 08:14:44 04/08/2007 08:14:49 [id number] RAJEEV [facility], OFFICE [address] [place]62[address] 6 04/15/2007 16:27:24 04/18/2007 08:58:27 [id number] Akshat [facility] [address] [place] Maldonado62[address] 6 06/29/2007 09:23:36 07/01/2007 09:13:11 [id number] RAJEEV [facility], OFFICE [address] [place] [address] 09/20/2007 14:25:55 07/15/2008 02:02:29 [id number] RJAEEV [facility], OFFICE [address] [place] [address] 10/08/2007 14:05:16 07/15/2008 02:02:29 [id number] LAB - [facility] 70 [place] Maldonado62[address] 6 10/29/2007 08:19:39 10/29/2007 08:19:43 [id number] [facility], OFFICE [address] [place]62[address] 6 11/05/2007 09:43:59 07/15/2008 02:02:29 [id number] LAB - [facility] [address] [place] Maldonado62-[address] 6 11/12/2007 08:23:38 11/12/2007 08:23:44 [id number] LAB - [facility] [place] [address] 01/17/2008 12:48:01 01/17/2008 12:48:16 [id number] [facility], OFFICE [address] [place] [address] 01/24/2008 14:09:47 07/15/2008 02:02:29 [id number] LAB - [facility] [place] [address] 01/24/2008 15:39:37 01/24/2008 15:40:02 [id number] LAB - [facility] [place] [address] 01/24/2008 00:00:00 07/15/2008 02:02:29 [id number] RAJEEV ARLonny, OFFICE [address] [place] [address] 03/30/2008 10:44:06 07/15/2008 02:02:29 [id number] Physical Therapy, [facility] LISANDRO Banks62[address] 6 03/31/2008 11:58:11 04/01/2008 09:12:25 [id number] Physical Therapy, [facility] [place] [address] 04/02/2008 08:36:13 04/02/2008 16:25:15 [id number] Physical Therapy, [facility] [address] [address] 04/07/2008 08:34:12 04/07/2008 14:43:31 [id number] Physical Therapy, [facility] Maribeth [facility] [place] [address] 04/09/2008 08:37:17 04/09/2008 15:42:30 [id number] Physical [facility], [facility] Maribeth [facility] [place] [address] 04/14/2008 08:31:29 04/14/2008 14:21:06 [id number] LAB - [facility] Maribeth [facility] [place] [address] 07/07/2008 11:15:56 07/07/2008 11:16:03 [id number] [facility], OFFICE [address] [place] [address] 07/14/2008 13:28:43 07/24/2008 13:00:23 [id number] Radiology , [address] [place] [address] 12/19/2008 08:52:20 12/22/2008 14:08:26 [id number] [facility], OFFICE [address] [place] [address] 06/24/2009 14:39:32 06/24/2009 16:02:12 [id number] [facility], OFFICE [address] [place] [address] 10/25/2009 13:26:11 11/10/2009 13:32:16 [id number] Radiology [address] [place] [address] 10/25/2009 14:29:01 10/26/2009 11:21:38 [id number] [facility], OFFICE [address] [place] [address] 06/29/2010 11:23:06 07/26/2010 11:56:31 [id number] [facility], OFFICE [address] [place] [address] 09/22/2010 13:34:57 09/22/2010 17:04:13 [id number] [facility], OFFICE [address] [place] [address] 04/05/2011 09:42:34 04/05/2011 10:07:18 [id number] [facility], OFFICE [address] [place] [address] 04/10/2011 09:24:01 04/11/2011 11:28:27 [id number] [facility], [place]ICE [address] [place] [address] 05/17/2011 13:46:28 05/17/2011 15:12:35 [id number] [facility] , [facility] [address] [place] [address] 05/17/2011 14:58:54 05/22/2011 15:07:56 [id number] [facility], OFFICE [address] [place] [address] 05/26/2011 16:22:49 05/29/2011 14:16:46 [id number] [facility], [address] [place] [address] 11/21/2011 11:10:29 11/21/2011 12:20:19 [id number] Natalie Reveles MD , [facility], [address] [place] [address] 05/21/2012 15:50:05 05/21/2012 17:16:10 [id number] ENRIKE Haq , [facility], [address]ICE [address] [place] [address] 08/06/2012 09:44:43 08/06/2012 10:34:24 [id number] Natalie Reveles MD , [facility], [address] [place] [address] 11/01/2012 15:29:43 11/04/2012 10:55:05 [id number] Natalie Reveles MD , [facility], [address] [place] [address] 02/21/2013 11:09:19 02/21/2013 12:15:52 Benign essential hypertension 6626471 Mixed hyperlipidemia 267 063341 Diabetic on insulin 1707 40037 Rheumatoid arthritis 698 46995 [id number] Kacey Espinoza MA , [facility], OFF[address] [place] [address] 06/12/2013 15:53:14 06/12/2013 17:00:00 Benign essential hypertension 2672466 Mixed hyperlipidemia 267 042755 Adult heal th examination 281211070 Diabetic on insulin 1707 53662 Neuropathy due to diabetes mellitus 098282226 Mononeuritis 30157210 Rheumatoid arthritis 698 45486 [id number] Mary Finley MA FP, [facility], OFFICE [address] [place] [address] 06/19/2013 13:36:30 06/19/2013 14:00:11 Acute sinusitis 75384173 Common cold 70501711 [id number] LISANDRO Neely, [facility], [address] [place] [address] 09/23/2013 13:47:10 09/24/2013 10:04:00 Sinusitis 62120826 [id number] Yusuf Song MA , [facility], [address] [place] [address] 09/29/2013 16:41:29 09/30/2013 09:41:00 Acute sinusitis 90117293 [id number] LISANDRO Perla, [facility], [address] [place] [address] 11/27/2013 09:59:23 11/27/2013 16:10:44 Cough 78417859 [id number] Loni Panda MA , [facility], [address] [place] [address] 12/11/2013 14:25:08 12/11/2013 15:34:31 Benign essential hypertension 7651849 Mixed hyperlipidemia 267 191042 Neuropathy due to diabetes mellitus 616251506 Diabetic on insulin 1707 15508 [id number] Natalie Reveles MD , [facility], [address] [place] [address] 06/23/2014 15:01:46 06/23/2014 16:03:39 Spinal stenosis of lumbar region 28876869 Neuropathy due to diabetes mellitus 322599084 Diabetic on insulin 1707 58055 Allergic a sthma without status asthmaticus 06577355 Mixed hyperlipidemia 267 705854 Mononeuritis 36164472 Rheumatoid arthritis 698 52498 Type 2 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 791102312 [id number] Mary Finley MA , [facility], [address] [place] [address] 12/31/2014 14:26:47 12/31/2014 15:36:09 Benign essential hypertension 4417670 Mixed hyperlipidemia 267 595776 Diabetic on insulin 1707 83339 Rheumatoid arthritis 698 05066 [id number] Natalie Reveles MD , [facility], [address] [place] [address] 04/29/2015 13:53:38 04/29/2015 14:45:02 Benign essential hypertension 1180746 I10 Mixed hyperlipidemia 267 611997 E78.2 Diabetic on insulin 1707 [address]109 Z79.4 Type 2 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 826084361 E11.9 Neuropathy due to diabetes mellitus 728746164 E11.42 Allergic a sthma without status asthmaticus 24972743 J45.909 Rheumatoid arthritis 698 35527 M06.9 [id number] Natalie Reveles MD , [facility], [address] [place] [address] 07/22/2015 14:47:13 07/22/2015 15:54:33 Benign essential hypertension 5335984 I10 Mixed hyperlipidemia 267 022898 E78.2 Adult heal th examination 030104613 Z00.00 Neuropathy due to diabetes mellitus 335416779 E11.42 Diabetic on insulin 1707 96437 Z79.4 Hypothyroidism 47565745 E03.9 Rheumatoid arthritis 698 17189 M06.9 Spinal shara nosis of lumbar region 51396331 M48.06 Type 2 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 564494506 E11.9 [id number] Nilam Duane , [facility], [address] [place] [address] 08/17/2015 16:10:28 08/17/2015 16:58:40 Acute sinusitis 27727156 J01.90 Eczema 95135507 L30.9 Asthma 510442653 J45.90 9 Allergic rhinitis 877777 04 J30.9 [id number] Natalie Reveles MD , [facility], [address] [place] [address] 11/23/2015 14:02:11 11/23/2015 15:24:07 Benign essential hypertension 0759505 I10 Mixed hyperlipidemia 267 695275 E78.2 Neuropathy due to diabetes mellitus 864216947 E11.42 Rheumatoid arthritis 698 75393 M06.9 Type 2 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 064323024 E11.9 Diabetic on insulin 1707 97684 Z79.4 [id number] Natalie Reveles MD , [facility], [address] [place] [address] 03/23/2016 14:19:29 03/23/2016 15:26:40 Benign essential hypertension 8554553 I10 Mixed hyperlipidemia 267 806610 E78.2 Sinusitis 67426351 J32.9 Eczema 64693413 L30.9 Diabetic on insulin 1707 98623 Z79.4 Mononeuritis 18383566 G5 8.9 Rheumatoid arthritis 698 02261 M06.9 [id number] Natalie Reveles MD , [facility], [address] [place] [address] 06/13/2016 14:40:53 06/13/2016 15:36:21 Acute sinusitis 90693024 J01.90 [id number] Natalie Reveles MD , [facility], [address] [place] [address] 11/30/2016 13:57:42 11/30/2016 15:08:02 Diabetic on insulin 461230053 Z79.4 Type 2 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 840557537 E11.9 Mixed hyperlipidemia 267 554715 E78.2 Acute sinusitis 42738353 J01.90 [id number] Natalie Reveles MD , [facility], [address] [place] [address] 12/25/2016 09:20:57 12/25/2016 10:34:52 Adult health examination 215755224 Z00.00 Counseling 491911696 Z71 .9 Mixed hyperlipidemia 267 643906 E78.2 Benign ess ential hypertension 9899771 I10 Mononeuritis 91073331 G5 8.9 Sciatica 57278951 M54.30 Diabetic on insulin 1707 58860 Z79.4 Rheumatoid arthritis 698 96777 M06.9 Neuropathy due to diabetes mellitus 864876069 E11.42 Hearing loss 90457542 H9 1.90 [id number] Natalie Reveles MD , [facility], [address] [place] [address] 05/03/2017 14:27:16 05/03/2017 15:21:54 Benign essential hypertension 9018967 I10 Mixed hyperlipidemia 267 928615 E78.2 Sciatica 47881755 M54.30 Type 2 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 705389596 E11.9 Diabetic on insulin 1707 93086 Z79.4 Rheumatoid arthritis 698 03984 M06.9 [id number] Edgar Murray MD , [facility], [address] [place] [address] 06/27/2017 15:27:55 06/27/2017 15:57:15 Acute sinusitis 82373624 J01.90 [id number] Mami Bernstein MD , [facility], [address] [place] [address] 08/02/2017 13:49:47 08/02/2017 14:54:19 Allergic asthma without status asthmaticus 71571880 J45.909 Acute uppe r respiratory infection 72171406 J06.9 [id number] Natalie Reveles MD , [facility], [address] [place] [address] 09/13/2017 14:23:47 09/13/2017 15:31:30 Benign essential hypertension 5703100 I10 Mixed hyperlipidemia 267 462662 E78.2 Sciatica 29338645 M54.30 Type 2 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 549648693 E11.9 Mononeuritis 07049841 G5 8.9 Rheumatoid arthritis 698 89372 M06.9 Diabetic on insulin 1707 09880 Z79.4 Anemia 750617752 D64.9 Asthma 140047994 J45.90 9 Active or passive immunization 961912779 Z23 [id number] , [facility], [address] [place] [address] 11/13/2017 14:08:31 11/13/2017 14:54:27 Transient cerebral ischemia 182861777 G45.9 Diabetic on insulin 1707 21619 Z79.4 [id number] Natalie Reveles MD , [facility], [address] [place] [address] 12/27/2017 14:34:57 12/27/2017 16:04:03 Adult health examination 256986513 Z00.00 Counseling 106225480 Z71 .9 Depression screening 171 485790 Z13.89 Focal onse t impaired awareness epileptic seizure 645337308 G40.209 Benign ess ential hypertension 6691387 I10 Sciatica 10326529 M54.30 Mixed hyperlipidemia 267 198613 E78.2 Type 2 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 776419554 E11.9 Allergic a sthma without status asthmaticus 79524396 J45.909 Diabetic on insulin 1707 71155 Z79.4 Rheumatoid arthritis 698 48491 M06.9 Neuropathy due to diabetes mellitus 436497001 E11.42 Screening mammography 24 669951 Z12.31 Active or passive immunization 273287521 Z23 [id number] Natalie Reveles MD , [facility], [address] [place] [address] 04/30/2018 10:39:49 04/30/2018 11:23:30 Counseling 570522699 Z71.9 Benign ess ential hypertension 6964478 I10 Mixed hyperlipidemia 267 327934 E78.2 Focal onse t impaired awareness epileptic seizure 934670277 G40.209 Sciatica 47283869 M54.30 Type 2 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 631098108 E11.9 Mononeuritis 69920833 G5 8.9 Diabetic on insulin 1707 06069 Z79.4 Rheumatoid arthritis 698 40098 M06.9 Allergic a sthma without status asthmaticus 21890300 J45.909 Intolerant of ambient temperature 060585280 R68.89 [id number] Sil Carvajal , [facility], [address] [place] [address] 07/04/2018 09:15:51 07/04/2018 09:27:41 Active or passive immunization 015069557 Z23 [id number] Natalie Reveles MD , [facility], [address] [place] [address] 08/29/2018 11:16:37 08/30/2018 10:37:41 Acute sinusitis 09096950 J01.90 Benign ess ential hypertension 1972620 I10 Type 2 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 422986280 E11.9 Mononeuritis 34682899 G5 8.9 Rheumatoid arthritis 698 02910 M06.9 [id number] Natalie Reveles MD , [facility], [address] [place] [address] 12/31/2018 14:40:49 12/31/2018 16:07:09 Adult health examination 075788762 Z00.00 Counseling 195261128 Z71 .9 Depression screening 171 786781 Z13.89 Mixed hyperlipidemia 267 644352 E78.2 Focal onse t impaired awareness epileptic seizure 855565061 G40.209 Benign ess ential hypertension 5149906 I10 Sciatica 60914049 M54.30 Type 2 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 903613992 E11.9 Allergic a sthma without status asthmaticus 31068256 J45.909 Diabetic on insulin 1707 50510 Z79.4 Rheumatoid arthritis 698 21835 M06.9 Gastroesop hageal reflux disease 301520735 K21.9 Active or passive immunization 489875616 Z23 Neuropathy due to diabetes mellitus 866642044 E11.42 [id number] Natalie Reveles MD , [facility], [address] [place] [address] 02/20/2019 09:32:43 02/20/2019 10:11:54 Acute sinusitis 17943323 J01.90 Health Concerns Section Related Observation LastModified by Organization Detai ls LastModified Time None Recorded Concern Status LastModified by Organization Details LastModified Time None Recorded Advance Directives Directive N: Payers Encounter Date Sequence Insurance Name Policy Number Policy Samuel Covered Member ID Samuel Member ID Guarantor Name 04/30/2018 1 [place] [employer] Kriss Jackson [id number] Kriss A 04/30/2018 2 [place] [id number] Kriss A Young [id number] Kriss A Young 07/04/2018 1 [place] Kriss Jackson [id number] Kriss A Young 07/04/2018 2 [place] [id number] Kriss A Young [id number] Kriss A Young 08/29/2018 1 [place] [place] Kriss Massimo Manuel [id number] Kriss A Young 08/29/2018 2 [place] [id number] Kriss A Young [id number] Kriss A Young 12/31/2018 1 [place] [employer] [place] Kriss Jackson [id number] Kriss A Young 12/31/2018 2 [place] [id number] Kriss Massimo Young [id number] Kriss A Young 02/20/2019 1 [place] Kriss Jackson [id number] Kriss A Young 02/20/2019 2 [place] [id number] Kriss Jackson [id number] Kriss Jackson Notes Date Note Type Note Provider Name and Address Organization Details Recorded Time 8 text/html 67 yo with htn, RA, type 2 diabetes with neuropathy, spinal stenosis , asthma (flovent), seizure disorder (complex partial) here for f/u. Tolerating atorvastatin.Taking/winter medications. Occasional lows (60's). Checking her glucose in the mornings. No headaches, dyspnea, dizziness. chest pain.Retired now and has mixed feelings about that; felt as though she had been 'forced out' because of new technology and inadequate training.RA is very limiting with a lot of pain/fatigue.Has been seeing Dr. Chance for diabetes. No hypo/hyperglycemic sx.Using lidocaine patches prn for feetCold intolerance has developed recently Natalie Reveles MD [address] [place] [address], [phone], [facility] 05/11/2018 15:01:12 9 text/html 67 yo with htn, RA, type 2 diabetes with neuropathy, spinal stenosis , asthma (flovent), seizure disorder (complex partial) here for f/u.Taking/winter medications.No headaches, dyspnea, dizziness. chest pain.RA is very limiting with a lot of pain/fatigue. Has see OT and can wear brace for right wrist when at rest,Has been seeing Dr. Chance for diabetes. No hypo/hyperglycemic sx.Using lidocaine patches prn for feetCame back from [place] yesterday and had allergy sx. Using flonase, asthma inhaler, loratidine.Recent A1 C was <6% per Dr. Robson Reveles MD [address] [place] [address], [phone], [facility] 08/30/2018 13:31:11 9 text/html Physical Exam/FemaleReported bypatient.PHAPatient is here for a Wellness Visit. She describes her health status as good. Patient's health is the same as last year.Risk Assessment and Lifestyle Change Counseling-female 60-64Reported bypatient.Coronary Artery Disease Risk Assesment:Family History of Coronary Artery Disease;Not eating a diet low in fat and high in fiber;Personal history of hypertension;Personal history of diabetes; No history of peripheral vascular disease, AAA, or carotid disease; No personal history of coronary artery disease Breast Cancer Risk Assessment:No family history of breast cancer; Has been to term; Menopause prior to age 55; hysterectomy 86 Colon Cancer Risk Assessment:Family history of colon polyps or colon cancer; paternal grandmother Lung Cancer Risk Assessment:Never smoked Fracture Risk Assessment:No falls; Normal bone density Cognitive/Behavioral Risk Assessment:No history of depression Safety Risk Assessment:uses helmet for high velocity activities; uses seat belts; No evidence of abuse/neglect Exercise counseling:Discussed the importance of daily physical activity; Discussed the importance of weight bearing exercise Safety:Counseled about use of helmets for high velocity activiities; Counseled about home safety including use of smoke detectors, CO detectors, keeping home water temperature less than 120; Counseled about use of seat belts; Counseled about fall risk from throw rugs and the need for hand rails on steps and in bath Advanced DirectivesDiscussed the importance of a health care proxy and advanced directives Emergerncy Department and Urgent Care:Counseled about appropriate use of the emergency room and availability of urgent care at [facility] DiabetesReported bypatient.Duration:chronic Control:usually well controlled; improved since last visit; Hemoglobin A1C goal is less than 7; Moderate dose statin; BP goal is less than 140/85 Compliance:compliant with medications; Patient understands medications are to reduce blood sugar and control diabetes; compliant with follow-up visits; compliant with diet; compliant with home glucose monitoring Barriers to CareRheumatoid arthritis Associated Symptoms:no weight gain; no weight loss; no dizziness; no sweats; no headaches; no confusion; no increased thirst; no increased appetite; no increased urination; no blurred vision; no numbness of feet; no calluses on feet; no coronary artery disease; no kidney disease; no peripheral vascular disease; no retinopathy; no neuropathy Ability to Manage Self CareOn how confident the patient feels in ability to self manage condition the patient selects 9 with 10 being very confident and 1 being very low confidenceVMG HyperlipidemiaReported bypatient.Control:well controlled; treated with diet; treated with medications; Patient understands medications are to lower cholesterolVMG HypertensionReported bypatient.Control:BP Goal less than; Treated with diet and exercise; Treated with medications; Patient understands medications are to lower blood pressure 68 yo with htn, RA, type 2 diabetes with neuropathy, spinal stenosis, recent dx ? seizure disorder here for PHA.. Sero-negative RA. Sees rheum. Sero negative RA.Colonoscopy 2016 (serrated polyp). Mammogram 2018.Retired, not happy with it. Doesn't like to leave house, arthritis keeps her from moving much. Pain is mostly in her left shoulder, both ankles. Balance is very poor, doesn't like to use cane, feels it is too cumbersome.Brought in list of measured BPs, averaged in the range of 145/80 since reducing lisinopril in august.Sees engineer system 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 (Dr. Chance) Natalie Reveles MD [address] [place] [address], [phone], [facility] 01/05/2019 14:13:02 9 text/html Physical Exam/FemaleReported bypatient.PHAPatient is here for a Wellness Visit. She describes her health status as good. Patient's health is the same as last year.Risk Assessment and Lifestyle Change Counseling-female 60-64Reported bypatient.Coronary Artery Disease Risk Assesment:Family History of Coronary Artery Disease;Not eating a diet low in fat and high in fiber;Personal history of hypertension;Personal history of diabetes; No history of peripheral vascular disease, AAA, or carotid disease; No personal history of coronary artery disease Breast Cancer Risk Assessment:No family history of breast cancer; Has been to term; Menopause prior to age 55; hysterectomy 86 Colon Cancer Risk Assessment:Family history of colon polyps or colon cancer; paternal grandmother Lung Cancer Risk Assessment:Never smoked Fracture Risk Assessment:No falls; Normal bone density Cognitive/Behavioral Risk Assessment:No history of depression Safety Risk Assessment:uses helmet for high velocity activities; uses seat belts; No evidence of abuse/neglect Exercise counseling:Discussed the importance of daily physical activity; Discussed the importance of weight bearing exercise Safety:Counseled about use of helmets for high velocity activiities; Counseled about home safety including use of smoke detectors, CO detectors, keeping home water temperature less than 120; Counseled about use of seat belts; Counseled about fall risk from throw rugs and the need for hand rails on steps and in bath Advanced DirectivesDiscussed the importance of a health care proxy and advanced directives Emergerncy Department and Urgent Care:Counseled about appropriate use of the emergency room and availability of urgent care at [facility] DiabetesReported bypatient.Duration:chronic Control:usually well controlled; improved since last visit; Hemoglobin A1C goal is less than 7; Moderate dose statin; BP goal is less than 140/85 Compliance:compliant with medications; Patient understands medications are to reduce blood sugar and control diabetes; compliant with follow-up visits; compliant with diet; compliant with home glucose monitoring Barriers to CareRheumatoid arthritis Associated Symptoms:no weight gain; no weight loss; no dizziness; no sweats; no headaches; no confusion; no increased thirst; no increased appetite; no increased urination; no blurred vision; no numbness of feet; no calluses on feet; no coronary artery disease; no kidney disease; no peripheral vascular disease; no retinopathy; no neuropathy Ability to Manage Self CareOn how confident the patient feels in ability to self manage condition the patient selects 9 with 10 being very confident and 1 being very low confidenceVMG HyperlipidemiaReported bypatient.Control:well controlled; treated with diet; treated with medications; Patient understands medications are to lower cholesterolVMG HypertensionReported bypatient.Control:BP Goal less than; Treated with diet and exercise; Treated with medications; Patient understands medications are to lower blood pressure 68 yo with htn, RA, type 2 diabetes with neuropathy, spinal stenosis, seizure disorder here 4 days of congestion, green sputum.Extremely lethargic, frequent headaches, hoarseness, post-nasal drip. Cough with green sputum. No dyspnea Natalie Reveles MD [address] [place] [address], [phone], [facility] 02/20/2019 10:14:25 OBGyn Episode No OBEpisode recorded. Data Portability Created on: June 24, 2024 Kriss Jackson External Reference #: [id number] : 1950 Sex: Female Author Organization [facility], , [facility] Address [address] [place] [address] Assessment Encounter Date Assessment Date Assessment LastModified by Organization Details LastModified Time 04/30/2018 04/30/2018 Blood pressure i s at goal with which is below 140/90 for a diabetic. She is looking for alternative activities in her correction. Her A1c of 5.5% shows excellent diabetes control (goal below 7.5-8%). She will continue with [employer] [facility] in diabetes education for that. Her LDL of 30 is at goal which is below 100 for her. f/u with her neurologist for seizure disorder, currently asymptomatic. Check TSH/cbc for cold sensativity. f/u here 3-6 months nikki Not available 05/11/2018 15:00:56 08/29/2018 08/29/2018 Will reduce lisinopril/hctz to 1/2 tablet/d because of her low bp and some mild dizziness; continue to monitor herself and f/u couple of months We will treat her sinusitis with cefpodoxime that seems to have worked best for her in the past. Her diabetes seems stable according to what she tells us from her engineer system 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, and she will try and get us those records. He continues with die sinker and on prednisone. She will follow-up in 4-6 months. nikki Not available 08/30/2018 13:30:54 12/31/2018 12/31/2018 1) Discussed ambulatory difficulties due to arthritis, patient does not like to use cane but advised her that she could get a wheeled walker as this might be safe and help her get out of the house more (spends very little time out of the house). Advised to call medicare and see if it would be covered and to consider her options. RX for walker as listed below. 2) BP based on measurements patient recorded are above goal of 130/90, in the range of 145/85. She will resume monitoring her bp more regularly 3) Patient regularly sees engineer system 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 who will check A1C and adjust rx for diabetes. Advised of the importance of eating regular meals while on insulin. Because of neuropathy cautioned against going barefoot 4) Will refill atorvastatin 20mg at patient request 5) Will refill lidocaine 5% patches for spinal stenosis at patient request 6) Advised patient that she can use her flovent 110mcg inhaler, twice a day, and proair 90mcg for rescue inhaler, patient believed both inhalers were rescue. 7) PPSV23 administered 8) No recent seizures, on clopidogrel 75mg for stroke prophylaxis given white matter changes after seeing neuro 8) F/u in 6 months for HTN or with new provider (will be changing to [facility] for convenience) 9) RA stable; may be helped by walker use nikki Not available 01/05/2019 14:12:09 02/20/2019 02/20/2019 We discussed her symptoms which seem to indicate a viral sinus infection. However, due to her history of bacterial sinusitis and the fact she is immune supressed on prednisone taper, will start her on cefpodoxime 200mg BID for 7 days which has been successful in the past. Advised her to get plenty of rest, fluids, and f/u nikki Not available 02/20/2019 10:14:07 Plan of Treatment Reminders Order Date Submit Date Provider Last Modified By Organization Details Last Modified Time Details Appointments None recorded. Lab TSH, serum or plasma 2017 018 [facility], [address] [place] [address], [id number], 8 16:26:11 CBC 2017 018 [facility], [address] [place] [address], [id number], 8 14:43:05 Referral None recorded. Procedures None recorded. Surgeries None recorded. Imaging None recorded. Medication Orders cefpodoxim e 200 mg tablet 2018 019 [facility] #[id number], [address], [place], [id number], 9 14:47:44 atorvastat in 20 mg tablet 2018 019 [id number], [address], [place], [id number], 9 16:34:01 lidocaine 5 % topical patch 2018 019 [facility] #[id number], [address], [place], [id number], 9 13:32:45 omeprazole 20 mg capsule,de layed release 2018 019 [facility] #[id number], [address], [place], [id number], 9 16:34:01 lisinopril 10 mg-hydroch lorothiazi de 12.5 mg tablet 2018 019 [facility] #[id number], [address], [place], [id number], 9 16:34:01 cefpodoxim e 200 mg tablet 2018 019 [facility] #[id number], [address], [place], [id number], 9 12:53:28 Patient TargetsNo targets recorded. Patient Instructions Encounter Date Encounter Id Patient Instructions Last Modified By Organization Details Last Modified Time 04/30/2018 [id number] high cholesterol lifestyle changes nikki Not available 04/30/2018 11:19:19 high blood pressure: care instructions nikki Not available 04/30/2018 11:19:19 learning about high blood pressure nikki Not available 04/30/2018 11:19:19 asthma handout / teaching nikki Not available 04/30/2018 11:19:19 asthma action plan nikki Not availab le 04/30/2018 11:19:[address] an ages 0-11 yrs urdu nikki Not available 04/30/2018 11:19:19 CCM: The provide r and patient discussed the Chronic Care Management program, including the services provided, and any fees associated with them. michele Not available 04/30/2018 11:32:47 08/29/2018 [id number] My Health To Do List Specific Analgesia Plan: {{Continue present regimen* Adjust dose of present analgesic Switch analgesics Add/Adj ust concomitant therapy Discontinu e/taper off opioid therapy}} Specific Goals for next visit {{increase exercise* start stress management improve sleeping start Yoga start TaiChi see therapist}}The patient is currently {{at* not at}} their goal of safe, stable use of narcotic pain medication to improve their functioning in life. Since the last visit there has been {{activity of concern no activity of concern*}}:{{# ove ruse of meds request for an early refill abuse of staff noncomplianc e with UDS or pill count requests abnormal UDS}} Patient today is {{at high risk at moderate risk at low risk*}} for {{abuse of meds* misuse of meds}}. Monitoring will include {{pill counts repeat UDS* closer follow-up with shorter scripts}}. Patients current goals of {{better sleep more activity* return to work return to school improved ADL's improved self care improved function in roles}} were discussed with patient, unlikelihood of 100% reduction in pain made clear. Patient has read narcotics contract and understands the properties of narcotic medication. spise Not available 08/29/2018 11:18:25 12/31/2018 [id number] After a discussi on of treatment options, which included consideration of best practices and patient preferences, the above treatment plan and objectives were adopted: monito bp at home. Try wheeled walker [email or web address] Not available 01/05/2019 14:12:26 Reason for Referral None Reported. Results Created Date Observation Date Name Description Value Unit Range Abnormal Flag Note LastModifiedBy Organization Detail LastModifiedTime 04/26/20 18 04/26/2018 HbA1c (hemo globi n A1c), blood hemoglobin A1C 5.5 % 4.8-6. 0 Goal: <7% in Patie nts with Diabe sarath Not Available [address], [address], 04/26/2018 15:36:01 04/26/20 18 04/26/2018 HbA1c (hemo globi n A1c), blood estimated average glucose 111.2 mg/dL Not Available [address], [address], 04/26/2018 15:36:01 04/26/20 18 04/26/2018 micro album in, urine microalbumin 39.3 mg/L 1.3-20 .0 high Not Available [address], [address], 04/26/2018 15:37:51 04/26/20 18 04/26/2018 micro album in, urine creatinine urine 193.6 mg/dL 30.0-1 25.0 high Not Available [address], [address], 04/26/2018 15:37:51 04/26/20 18 04/26/2018 micro album in, urine microalb/cre at ratio 20.3 mg/g_ creat 0.0-29 .0 Not Available [address], [address], 04/26/2018 15:37:51 04/26/20 18 04/26/2018 BMP, serum or plasm a glucose 74 mg/dL 70-100 Not Available [address], [address], 04/26/2018 16:07:42 04/26/20 18 04/26/2018 BMP, serum or plasm a BUN 16 mg/dL 7-18 Not Available [address], [address], 04/26/2018 16:07:42 04/26/20 18 04/26/2018 BMP, serum or plasm a creatinine 1.1 mg/dL 0.8-1. 3 Not Available [address], [address], 04/26/2018 16:07:42 04/26/20 18 04/26/2018 BMP, serum or plasm a B/C 14.5 ratio Not Available [address], [address], 04/26/2018 16:07:42 04/26/20 18 04/26/2018 BMP, serum or plasm a GFR -non 55.5 mL/mi n Recom zhane d GFR by the Natio nal Kidne y Found ation >60 mL/mi n/1.7 3m2 - Patricia l <60 mL/mi n/1.7 3m2 - Chron ic Kidne y Disea se <15 mL/mi n/1.7 3m2 - Kidne y Failu re Not Available [address], [address], 04/26/2018 16:07:42 04/26/20 18 04/26/2018 BMP, serum or plasm a GFR - if 63.8 mL/mi n For Afric an Ameri can patie nts: Resul ts Multi plied by 1.21 Not Available [address], [address], 04/26/2018 16:07:42 04/26/20 18 04/26/2018 BMP, serum or plasm a sodium 143 mmol/ L 136-14 5 Not Available [address], [address], 04/26/2018 16:07:42 04/26/20 18 04/26/2018 BMP, serum or plasm a potassium 4.6 mmol/ L 3.5-5. 1 Not Available [address], [address], 04/26/2018 16:07:42 04/26/20 18 04/26/2018 BMP, serum or plasm a chloride 105 mmol/ L 96-107 Not Available [address], [address], 04/26/2018 16:07:42 04/26/20 18 04/26/2018 BMP, serum or plasm a anion gap 11.1 5.0-15 .0 Not Available [address], [address], 04/26/2018 16:07:42 04/26/20 18 04/26/2018 BMP, serum or plasm a CO2 27 mmol/ L 21-32 Not Available [address], [address], 04/26/2018 16:07:42 04/26/20 18 04/26/2018 BMP, serum or plasm a calcium 9.2 mg/dL 8.5-10 .3 Not Available [address], [address], 04/26/2018 16:07:42 04/26/20 18 04/26/2018 lipid panel , serum cholesterol 106 mg/dL <200 mg/dl Avelino able 200-2 39 mg/dl Borde rline High >240 mg/dl High Not Available [address], [address], 04/26/2018 16:07:44 04/26/20 18 04/26/2018 lipid panel , serum triglyceride s 184 mg/dL <150 mg/dL Patricia l 150-1 99 mg/dL Borde rline High 200-4 99 mg/dL High >500 mg/dL Very High Not Available [address], [address], 04/26/2018 16:07:44 04/26/20 18 04/26/2018 lipid panel , serum direct HDL 39 mg/dL <40 mg/dl - Major Risk for CHD >60 mg/dl - Negat jeannette Risk for CHD Not Available [address], [address], 04/26/2018 16:07:44 04/26/20 18 04/26/2018 LDL, calcu lated , serum (OBS) LDL - calculated 30.2 RISK CATEG ORY LDL GOAL _ CHD or CHD Risk Equiv alent s <100 mg/dl (10-y ear risk >20%) 2+ Risk Facto rs <130 mg/dl (10-y ear risk <= 20%) 0-1 Risk Facto r??? <160 mg/dl ??? Almos t all peopl e with 0-1 risk facto r have a 10 year risk <10%, thus 10 year risk asses ment in peopl e with 0-1 risk facto r is not bryantpierce baker. Not Available [address], [address], 04/26/2018 16:07:45 04/26/20 18 04/26/2018 AST/S GOT (aspa rtate amino trans feras e), serum or plasm a AST 18 U/L 15-37 Not Available [address], [address], 04/26/2018 16:25:23 04/26/20 18 04/26/2018 ALT (karen ine amino trans feras e), serum or plasm a ALT 26 U/L 30-65 low Not Available [address], [address], 04/26/2018 16:25:24 04/30/20 18 04/30/2018 CBC WBC 8.9 K/??L 4.0-10 .0 Not Available [address], [address], 04/30/2018 14:43:04 04/30/20 18 04/30/2018 CBC RBC 4.13 M/??L 3.93-5 .22 Not Available [address], [address], 04/30/2018 14:43:04 04/30/20 18 04/30/2018 CBC HGB 11.9 g/dL 11.2-1 5.7 Not Available [address], [address], 04/30/2018 14:43:04 04/30/20 18 04/30/2018 CBC HCT 35.9 % 34.1-4 4.9 Not Available [address], [address], 04/30/2018 14:43:04 04/30/20 18 04/30/2018 CBC MCV 86.9 ??L 79.4-9 4.8 Not Available [address], [address], 04/30/2018 14:43:04 04/30/20 18 04/30/2018 CBC MCH 28.8 pg 25.6-3 2.2 Not Available [address], [address], 04/30/2018 14:43:04 04/30/20 18 04/30/2018 CBC MCHC 33.1 g/dL 32.2-3 5.5 Not Available [address], [address], 04/30/2018 14:43:04 04/30/20 18 04/30/2018 CBC plt 290.0 K/??L 182.0- 369.0 Not Available [address], [address], 04/30/2018 14:43:04 04/30/20 18 04/30/2018 CBC MPV 11.7 9.4-12 .3 Not Available [address], [address], 04/30/2018 14:43:04 04/30/20 18 04/30/2018 CBC neut% 78.8 % 34.0-7 1.1 high Not Available [address], [address], 04/30/2018 14:43:04 04/30/20 18 04/30/2018 CBC neut# 7.0 1.6-6. 1 high Not Available [address], [address], 04/30/2018 14:43:04 04/30/20 18 04/30/2018 CBC lymph % 14.1 % 19.3-5 1.7 low Not Available [address], [address], 04/30/2018 14:43:04 04/30/20 18 04/30/2018 CBC lymph # 1.3 K/??L 1.2-3. 7 Not Available [address], [address], 04/30/2018 14:43:04 04/30/20 18 04/30/2018 CBC mono% 5.2 % 4.7-12 .5 Not Available [address], [address], 04/30/2018 14:43:04 04/30/20 18 04/30/2018 CBC mono# 0.5 0.2-0. 6 Not Available [address], [address], 04/30/2018 14:43:04 04/30/20 18 04/30/2018 CBC eo% 1.4 % 0.7-5. 8 Not Available [address], [address], 04/30/2018 14:43:04 04/30/20 18 04/30/2018 CBC eo# 0.1 0.0-0. 4 Not Available [address], [address], 04/30/2018 14:43:04 04/30/20 18 04/30/2018 CBC baso% 0.5 % 0.1-1. 2 Not Available [address], [address], 04/30/2018 14:43:04 04/30/20 18 04/30/2018 CBC baso# 0.0 0.0-0. 1 Not Available [address], [address], 04/30/2018 14:43:04 04/30/20 18 04/30/2018 CBC RDW-CV 14.0 % 11.7-1 4.4 Not Available [address], [address], 04/30/2018 14:43:04 04/30/20 18 04/30/2018 TSH, serum or plasm a TSH 2.29 uIU/m L 0.50-6 .00 The Ameri can Colle ge of Endoc rinol ogy and Ameri can Thyro id Assoc iatio n recom mend goal TSH value s izzy en 0.4-4 .0 mIU/m L. Not Available [address], [place], [address], 04/30/2018 16:26:11 06/12/20 18 06/12/2018 CBC w/ auto diff WBC 13.71 K/uL 3.40-1 1.20 high Not Available [facility] [address] [place] [address], [address], 06/12/2018 14:19:14 06/12/20 18 06/12/2018 CBC w/ auto diff RBC 4.19 M/uL 3.80-4 .80 Not Available [facility] [address] [place] [address], [address], 06/12/2018 14:19:14 06/12/20 18 06/12/2018 CBC w/ auto diff HGB 12.0 g/dL 12.0-1 5.0 Not Available [facility] [address] [place] [address], [address], 06/12/2018 14:19:14 06/12/20 18 06/12/2018 CBC w/ auto diff HCT 35.1 % 36.0-4 6.0 low Not Available [facility] [address] [place] [address], [address], 06/12/2018 14:19:14 06/12/20 18 06/12/2018 CBC w/ auto diff plt 285 K/uL 130-40 0 Not Available [facility] [address] [place] [address], [address], 06/12/2018 14:19:14 06/12/20 18 06/12/2018 CBC w/ auto diff MCV 83.8 fL 79.0-9 8.0 Not Available [facility] [address] [place], [address], 06/12/2018 14:19:14 06/12/20 18 06/12/2018 CBC w/ auto diff MCH 28.6 pg 27.0-3 4.8 Not Available [facility] [address] [place], [address], 06/12/2018 14:19:14 06/12/20 18 06/12/2018 CBC w/ auto diff MCHC 34.2 g/dL 31.5-3 6.0 Not Available [facility] [address] [place], [address], 06/12/2018 14:19:14 06/12/20 18 06/12/2018 CBC w/ auto diff RDW 13.2 % 10.8-1 4.6 Not Available [facility] [address] [place], [address], 06/12/2018 14:19:14 06/12/20 18 06/12/2018 CBC w/ auto diff MPV 11.6 fL 9.4-12 .4 Not Available [facility] [address] [place], [address], 06/12/2018 14:19:14 06/12/20 18 06/12/2018 CBC w/ auto diff NRBC 0.00 /100_ WBCs 0.00 Not Available [facility] [address] [place], [address], 06/12/2018 14:19:14 06/12/20 18 06/12/2018 CBC w/ auto diff absolute NRBC 0.00 K/uL 0.00 Not Available [facility] [address] [place], [address], 06/12/2018 14:19:14 06/12/20 18 06/12/2018 CBC w/ auto diff diff method Auto Not Available [facility] [address] [place], [address], 06/12/2018 14:19:14 06/12/20 18 06/12/2018 CBC w/ auto diff neuts 84.8 % 45.30- 77.70 high Not Available [facility] [address] [place] [address], [address], 06/12/2018 14:19:14 06/12/20 18 06/12/2018 CBC w/ auto diff lymphs 9.0 % 12.30- 39.70 low Not Available [facility] [address] [place] [address], [address], 06/12/2018 14:19:14 06/12/20 18 06/12/2018 CBC w/ auto diff monos 4.2 % 4.10-1 2.80 Not Available [facility] [address] [place] [address], [address], 06/12/2018 14:19:14 06/12/20 18 06/12/2018 CBC w/ auto diff eos 0.9 % 0-7.2 Not Available [facility] [address] [place] [address], [address], 06/12/2018 14:19:14 06/12/20 18 06/12/2018 CBC w/ auto diff basos 0.7 % 0-2.80 Not Available [facility] [address] [place] [address], [address], 06/12/2018 14:19:14 06/12/20 18 06/12/2018 CBC w/ auto diff granulocytes , immature (%) 0.4 % 0.0-0. 9 Not Available [facility] [address] [place] [address], [address], 06/12/2018 14:19:14 06/12/20 18 06/12/2018 CBC w/ auto diff absolute neuts 11.63 K/uL 1.40-7 .70 high Not Available [facility] [address] [place], [address], 06/12/2018 14:19:14 06/12/20 18 06/12/2018 CBC w/ auto diff absolute lymphs 1.24 K/uL 0.60-3 .20 Not Available [facility] [address] [place], [address], 06/12/2018 14:19:14 06/12/20 18 06/12/2018 CBC w/ auto diff absolute monos 0.57 K/uL 0.11-0 .59 Not Available [facility] [address] [place] [address], [address], 06/12/2018 14:19:14 06/12/20 18 06/12/2018 CBC w/ auto diff absolute eos 0.13 K/uL 0.01-0 .50 Not Available [facility] [address] [place], [address], 06/12/2018 14:19:14 06/12/20 18 06/12/2018 CBC w/ auto diff absolute basos 0.09 K/uL 0.00-0 .08 high Not Available [facility] [address] [place] [address], [address], 06/12/2018 14:19:14 06/12/20 18 06/12/2018 CBC w/ auto diff granulocytes , immature 0.05 K/uL 0.00-0 .05 Not Available [facility] [address] [place], [address], 06/12/2018 14:19:14 06/12/20 18 06/12/2018 CMP, serum or plasm a sodium 139 mmol/ L 133-14 6 Not Available [facility] [address] [place] [address], [address], 06/12/2018 15:13:28 06/12/20 18 06/12/2018 CMP, serum or plasm a potassium 4.6 mmol/ L 3.3-5. 1 Not Available [facility] [address] [place], [address], 06/12/2018 15:13:28 06/12/20 18 06/12/2018 CMP, serum or plasm a chloride 99 mmol/ L 96-108 Not Available [facility] [address] [place], [address], 06/12/2018 15:13:28 06/12/20 18 06/12/2018 CMP, serum or plasm a CO2 28 mmol/ L 21-35 Not Available [facility] [address] [place], [address], 06/12/2018 15:13:28 06/12/20 18 06/12/2018 CMP, serum or plasm a BUN 22 mg/dL 6-19 high Not Available [facility] [address] [place], [address], 06/12/2018 15:13:28 06/12/20 18 06/12/2018 CMP, serum or plasm a creatinine 0.90 mg/dL 0.5-1. 5 Not Available [facility] [address] [place], [address], 06/12/2018 15:13:28 06/12/20 18 06/12/2018 CMP, serum or plasm a glucose 104 mg/dL 70-99 high Not Available [facility] [address] [place], [address], 06/12/2018 15:13:28 06/12/20 18 06/12/2018 CMP, serum or plasm a albumin 4.4 g/dL 3.9-4. 8 Not Available [facility] [address] [place], [address], 06/12/2018 15:13:28 06/12/20 18 06/12/2018 CMP, serum or plasm a total protein 6.9 g/dL 6.5-8. 0 Not Available [facility] [address] [place], [address], 06/12/2018 15:13:28 06/12/20 18 06/12/2018 CMP, serum or plasm a calcium 9.3 mg/dL 8.4-10 .3 Not Available [facility] [address] [place], [address], 06/12/2018 15:13:28 06/12/20 18 06/12/2018 CMP, serum or plasm a alkaline phosphatase 82 U/L 39-117 Not Available [facility] [address] [place], [address], 06/12/2018 15:13:28 06/12/20 18 06/12/2018 CMP, serum or plasm a total bilirubin 0.4 mg/dL 0.0-1. 2 Not Available [facility] [address] [place], [address], 06/12/2018 15:13:28 06/12/20 18 06/12/2018 CMP, serum or plasm a AST 16 U/L 0-37 Not Available [facility] [address] [place], [address], 06/12/2018 15:13:28 06/12/20 18 06/12/2018 CMP, serum or plasm a ALT 18 U/L 0-40 Not Available [facility] [address] [place], [address], 06/12/2018 15:13:28 06/12/20 18 06/12/2018 CMP, serum or plasm a globulin 2.5 g/dL 1-4.8 Not Available [facility] [address] [place], [address], 06/12/2018 15:13:28 06/12/20 18 06/12/2018 CMP, serum or plasm a eGFR 66 mL/mi n/1.7 3m2 >59 If patie nt is black , multi ply resul t by 1.159 . Estim ated glome rular filtr ation rate calcu lated using the CKD-E PI equat ion. Not Available [facility] [address] [place], [address], 06/12/2018 15:13:28 06/12/20 18 06/12/2018 CMP, serum or plasm a anion gap 17 mmol/ L 10-20 Not Available [facility] [address] [place] [address], [address], 06/12/2018 15:13:28 06/12/20 18 06/12/2018 C-andra ctive prote in, quant itati ve, serum or plasm a C reactive protein 3.3 mg/L 0.0-4. 0 Not Available [facility] [address] [place] [address], [address], 06/12/2018 15:13:30 06/12/20 18 06/13/2018 HBsAg (hepa titis B surfa ce Ag), serum HBV surface antigen Negati ve negati ve Not Available [facility] [address] [place] [address], [address], 06/13/2018 10:03:22 06/12/20 18 06/13/2018 hepat itis B virus core Ab, quali tativ e, serum hep B core Ab, tot Negati ve negati ve Not Available [facility] [address] [place], [address], 06/13/2018 10:03:24 06/12/20 18 06/14/2018 tb (M tuber culos is), ifn-g deonte sai , blood quantiferon- TB gold Negati ve negati ve (NOTE ) No inter feron -gamm a respo nse to M. tuber culos is antig ens was detec munir. Infec tion with M. tuber culos is is unlik sherman. A singl e negat jeannette resul t does not exclu de infec tion with M. tuber culos is. In patie nts at high risk for M.tub ercul osis infec tion, a secon d test shoul d be consi dered in accor dance with the 2017 ATS/I DSA/C DC Clini tracy Pract ice Guide lines for Diagn osis of Tuber culos is in Adult s and Child eddie [Aneudy aquino DM et. al. Clin. Infec t. Dis. 2017; 64(2) :111- 115]. The refer ence range for the 'TB1 Ag minus Nil Resul t' and 'TB2 Ag minus Nil Resul t' is an Inter feron -gamm a level <0.35 IU/mL . Not Available [facility]) [address] [place] [address], [address], 06/14/2018 19:02:21 06/12/20 18 06/14/2018 tb (M tuber culos is), ifn-g deonte sai , blood TB1 Ag minus nil 0.11 IU/mL Not Available [facility]) [address] [place] [address], [address], 06/14/2018 19:02:21 06/12/20 18 06/14/2018 tb (M tuber culos is), ifn-g deonte sai , blood TB2 Ag minus nil 0.00 IU/mL Not Available [facility] ([facility]) [address] [place] [address], [address], 06/14/2018 19:02:21 06/12/20 18 06/14/2018 tb (M tuber culos is), ifn-g deonte sai , blood mitogen minus nil 2.75 IU/mL Not Available [facility] ([facility]) [address] [place] [address], [address], 06/14/2018 19:02:21 06/12/20 18 06/14/2018 tb (M tuber culos is), ifn-g deonte sai , blood nil result 0.01 IU/mL Not Available [facility] ([facility]) [address] [place], [address], 06/14/2018 19:02:21 10/18/19 19 10/17/2018 CBC w/ auto diff WBC 10.03 K/uL 3.40-1 1.20 Not Available [facility] [address] [place], [address], 10/17/2018 15:41:19 10/18/19 19 10/17/2018 CBC w/ auto diff RBC 4.02 M/uL 3.80-4 .80 Not Available [facility]) [address] [place] [address], [address], 10/17/2018 15:41:19 10/18/19 19 10/17/2018 CBC w/ auto diff HGB 11.9 g/dL 12.0-1 5.0 low Not Available [facility]) [address] [place] [address], [address], 10/17/2018 15:41:19 10/18/19 19 10/17/2018 CBC w/ auto diff HCT 35.2 % 36.0-4 6.0 low Not Available [facility]) [address] [place] [address], [address], 10/17/2018 15:41:19 10/18/19 19 10/17/2018 CBC w/ auto diff plt 236 K/uL 130-40 0 Not Available [facility]) [address] [place] [address], [address], 10/17/2018 15:41:19 10/18/19 19 10/17/2018 CBC w/ auto diff MCV 87.6 fL 79.0-9 8.0 Not Available [facility]) [address] [place] [address], [address], 10/17/2018 15:41:19 10/18/19 19 10/17/2018 CBC w/ auto diff MCH 29.6 pg 27.0-3 4.8 Not Available [facility] [address] [place], [address], 10/17/2018 15:41:19 10/18/19 19 10/17/2018 CBC w/ auto diff MCHC 33.8 g/dL 31.5-3 6.0 Not Available [facility] [address] [place], [address], 10/17/2018 15:41:19 10/18/19 19 10/17/2018 CBC w/ auto diff RDW 12.9 % 10.8-1 4.6 Not Available [facility] [address] [place], [address], 10/17/2018 15:41:19 10/18/19 19 10/17/2018 CBC w/ auto diff MPV 11.0 fL 9.4-12 .4 Not Available [facility] [address] [place], [address], 10/17/2018 15:41:19 10/18/19 19 10/17/2018 CBC w/ auto diff NRBC 0.00 /100_ WBCs 0.00 Not Available [facility] [address] [place], [address], 10/17/2018 15:41:19 10/18/19 19 10/17/2018 CBC w/ auto diff absolute NRBC 0.00 K/uL 0.00 Not Available [facility] [address] [place], [address], 10/17/2018 15:41:19 10/18/19 19 10/17/2018 CBC w/ auto diff diff method Auto Not Available [facility] [address] [place] [address], [address], 10/17/2018 15:41:19 10/18/19 19 10/17/2018 CBC w/ auto diff neuts 70.1 % 45.30- 77.70 Not Available [facility] [address] [place], [address], 10/17/2018 15:41:19 10/18/19 19 10/17/2018 CBC w/ auto diff lymphs 18.2 % 12.30- 39.70 Not Available [facility] [address] [place] [address], [address], 10/17/2018 15:41:19 10/18/19 19 10/17/2018 CBC w/ auto diff monos 7.4 % 4.10-1 2.80 Not Available [facility] [address] [place] [address], [address], 10/17/2018 15:41:19 10/18/19 19 10/17/2018 CBC w/ auto diff eos 2.8 % 0-7.2 Not Available [facility] ([facility]) [address] [place] [address], [address], 10/17/2018 15:41:19 10/18/19 19 10/17/2018 CBC w/ auto diff basos 1.1 % 0-2.80 Not Available [facility]) [address] [place] [address], [address], 10/17/2018 15:41:19 10/18/19 19 10/17/2018 CBC w/ auto diff granulocytes , immature (%) 0.4 % 0.0-0. 9 Not Available [facility] ([facility]) [address] [place] [address], [address], 10/17/2018 15:41:19 10/18/19 19 10/17/2018 CBC w/ auto diff absolute neuts 7.03 K/uL 1.40-7 .70 Not Available [facility] (Outpatient) [address] [place], [address], 10/17/2018 15:41:19 10/18/19 19 10/17/2018 CBC w/ auto diff absolute lymphs 1.83 K/uL 0.60-3 .20 Not Available [facility] (Outpatient) [address] [place], [address], 10/17/2018 15:41:19 10/18/19 19 10/17/2018 CBC w/ auto diff absolute monos 0.74 K/uL 0.11-0 .59 high Not Available [facility] (Outpatient) [address] [place], [address], 10/17/2018 15:41:19 10/18/19 19 10/17/2018 CBC w/ auto diff absolute eos 0.28 K/uL 0.01-0 .50 Not Available [facility] (Outpatient) [address] [place], [address], 10/17/2018 15:41:19 10/18/19 19 10/17/2018 CBC w/ auto diff absolute basos 0.11 K/uL 0.00-0 .08 high Not Available [facility] (Outpatient) [address] [place], [address], 10/17/2018 15:41:19 10/18/19 19 10/17/2018 CBC w/ auto diff granulocytes , immature 0.04 K/uL 0.00-0 .05 Not Available [facility] (Outpatient) [address] [place], [address], 10/17/2018 15:41:19 10/18/1910/17/2018 eryth rocyt e sedim entat ion rate by prema sanchezo d ESR 5 mm/h 0-30 Not Available [facility] (Outpatient) [address] [place], [address], 10/17/2018 16:22:09 10/18/19 19 10/17/2018 CMP, serum or plasm a sodium 143 mmol/ L 133-14 6 Not Available [facility] (Outpatient) [address] [place], [address], 10/17/2018 16:48:20 10/18/19 19 10/17/2018 CMP, serum or plasm a potassium 4.3 mmol/ L 3.3-5. 1 Not Available [facility] (Outpatient) [address] [place], [address], 10/17/2018 16:48:20 10/18/19 19 10/17/2018 CMP, serum or plasm a chloride 104 mmol/ L 96-108 Not Available [facility] (Outpatient) [address] [place], [address], 10/17/2018 16:48:20 10/18/19 19 10/17/2018 CMP, serum or plasm a CO2 26 mmol/ L 21-35 Not Available [facility] (Outpatient) [address] [place], [address], 10/17/2018 16:48:20 10/18/19 19 10/17/2018 CMP, serum or plasm a BUN 28 mg/dL 6-19 high Not Available [facility] (Outpatient) [address] [place], [address], 10/17/2018 16:48:20 10/18/19 19 10/17/2018 CMP, serum or plasm a creatinine 1.00 mg/dL 0.5-1. 5 Not Available [facility] (Outpatient) [address] [place], [address], 10/17/2018 16:48:20 10/18/19 19 10/17/2018 CMP, serum or plasm a glucose 127 mg/dL 70-99 high Not Available [facility] (Outpatient) [address] [place], [address], 10/17/2018 16:48:20 10/18/19 19 10/17/2018 CMP, serum or plasm a albumin 4.3 g/dL 3.9-4. 8 Not Available [facility] (Outpatient) [address] [place], [address], 10/17/2018 16:48:20 10/18/19 19 10/17/2018 CMP, serum or plasm a total protein 6.9 g/dL 6.5-8. 0 Not Available [facility] (Outpatient) [address] [place], [address], 10/17/2018 16:48:20 10/18/19 19 10/17/2018 CMP, serum or plasm a calcium 9.5 mg/dL 8.4-10 .3 Not Available [facility] (Outpatient) [address] [place], [address], 10/17/2018 16:48:20 10/18/19 19 10/17/2018 CMP, serum or plasm a alkaline phosphatase 74 U/L 39-117 Not Available [facility] (Outpatient) [address] [place], [address], 10/17/2018 16:48:20 10/18/19 19 10/17/2018 CMP, serum or plasm a total bilirubin 0.3 mg/dL 0.0-1. 2 Not Available [facility] (Outpatient) [address] [place], [address], 10/17/2018 16:48:20 10/18/1910/17/2018 CMP, serum or plasm a AST 19 U/L 0-37 Not Available [facility] (Outpatient) [address] [place], [address], 10/17/2018 16:48:20 10/18/19 19 10/17/2018 CMP, serum or plasm a ALT 17 U/L 0-40 Not Available [facility] (Outpatient) [address] [place], [address], 10/17/2018 16:48:20 10/18/19 19 10/17/2018 CMP, serum or plasm a globulin 2.6 g/dL 1-4.8 Not Available [facility] (Outpatient) [address] [place] [address], [address], 10/17/2018 16:48:20 10/18/19 19 10/17/2018 CMP, serum or plasm a eGFR 58 mL/mi n/1.7 3m2 >59 low If patie nt is black , multi ply resul t by 1.159 . Estim ated glome rular filtr ation rate calcu lated using the CKD-E PI equat ion. Not Available [facility] (Outpatient) [address] [place] [address], [address], 10/17/2018 16:48:20 10/18/19 19 10/17/2018 CMP, serum or plasm a anion gap 17 mmol/ L 10-20 Not Available [facility] (Outpatient) [address] [place] [address], [address], 10/17/2018 16:48:20 10/18/19 19 10/17/2018 C-andra ctive prote in, quant itati ve, serum or plasm a C reactive protein 6.2 mg/L 0.0-4. 0 high Not Available [facility] (Outpatient) [address] [place] [address], [address], 10/17/2018 16:48:21 01/17/20 19 01/16/2019 CBC w/ auto diff WBC 10.98 K/uL 3.40-1 1.20 Not Available [facility] (Outpatient) [address] [place], [address], 01/16/2019 16:23:22 01/17/20 19 01/16/2019 CBC w/ auto diff RBC 4.04 M/uL 3.80-4 .80 Not Available [facility] (Out[facility]) [address] [place] [address], [address], 01/16/2019 16:23:22 01/17/20 19 01/16/2019 CBC w/ auto diff HGB 11.9 g/dL 12.0-1 5.0 low Not Available [facility] (Outpatient) [address] [place], [address], 01/16/2019 16:23:22 01/17/20 19 01/16/2019 CBC w/ auto diff HCT 35.3 % 36.0-4 6.0 low Not Available [facility] (Outpatient) [address] [place], [address], 01/16/2019 16:23:22 01/17/20 19 01/16/2019 CBC w/ auto diff plt 274 K/uL 130-40 0 Not Available [facility] (Outpatient) [address] [place], [address], 01/16/2019 16:23:22 01/17/20 19 01/16/2019 CBC w/ auto diff MCV 87.4 fL 79.0-9 8.0 Not Available [facility] (Out[facility]) [address] [place], [address], 01/16/2019 16:23:22 01/17/20 19 01/16/2019 CBC w/ auto diff MCH 29.5 pg 27.0-3 4.8 Not Available [facility] (Outpatient) [address] [place], [address], 01/16/2019 16:23:22 01/17/20 19 01/16/2019 CBC w/ auto diff MCHC 33.7 g/dL 31.5-3 6.0 Not Available [facility] (Outpatient) [address] [place], [address], 01/16/2019 16:23:22 01/17/20 19 01/16/2019 CBC w/ auto diff RDW 13.3 % 10.8-1 4.6 Not Available [facility] (Outpatient) [address] [place], [address], 01/16/2019 16:23:22 01/17/20 19 01/16/2019 CBC w/ auto diff MPV 11.7 fL 9.4-12 .4 Not Available [facility] (Outpatient) [address] [place], [address], 01/16/2019 16:23:22 01/17/20 19 01/16/2019 CBC w/ auto diff NRBC 0.00 /100_ WBCs 0.00 Not Available [facility] (Outpatient) [address] [place], [address], 01/16/2019 16:23:22 01/17/20 19 01/16/2019 CBC w/ auto diff absolute NRBC 0.00 K/uL 0.00 Not Available [facility] (Outpatient) [address] [place], [address], 01/16/2019 16:23:22 01/17/20 19 01/16/2019 CBC w/ auto diff diff method Auto Not Available [facility] (Outpatient) [address] [place], [address], 01/16/2019 16:23:22 01/17/20 19 01/16/2019 CBC w/ auto diff neuts 81.4 % 45.30- 77.70 high Not Available [facility] (Outpatient) [address] [place], [address], 01/16/2019 16:23:22 01/17/20 19 01/16/2019 CBC w/ auto diff lymphs 10.6 % 12.30- 39.70 low Not Available [facility] (Outpatient) [address] [place], [address], 01/16/2019 16:23:22 01/17/20 19 01/16/2019 CBC w/ auto diff monos 4.7 % 4.10-1 2.80 Not Available [facility] (Outpatient) [address] [place], [address], 01/16/2019 16:23:22 01/17/20 19 01/16/2019 CBC w/ auto diff eos 2.0 % 0-7.2 Not Available [facility] (Outpatient) [address] [place], [address], 01/16/2019 16:23:22 01/17/20 19 01/16/2019 CBC w/ auto diff basos 1.0 % 0-2.80 Not Available [facility] (Outpatient) [address] [place] [address], [address], 01/16/2019 16:23:22 01/17/20 19 01/16/2019 CBC w/ auto diff granulocytes , immature (%) 0.3 % 0.0-0. 9 Not Available [facility] (Outpatient) [address] [place] [address], [address], 01/16/2019 16:23:22 01/17/20 19 01/16/2019 CBC w/ auto diff absolute neuts 8.94 K/uL 1.40-7 .70 high Not Available [facility] (Outpatient) [address] [place] [address], [address], 01/16/2019 16:23:22 01/17/20 19 01/16/2019 CBC w/ auto diff absolute lymphs 1.16 K/uL 0.60-3 .20 Not Available [facility] (Outpatient) [address] [place], [address], 01/16/2019 16:23:22 01/17/20 19 01/16/2019 CBC w/ auto diff absolute monos 0.52 K/uL 0.11-0 .59 Not Available [facility] (Outpatient) [address] [place] [address], [address], 01/16/2019 16:23:22 01/17/20 19 01/16/2019 CBC w/ auto diff absolute eos 0.22 K/uL 0.01-0 .50 Not Available [facility] (Outpatient) [address] [place], [address], 01/16/2019 16:23:22 01/17/20 19 01/16/2019 CBC w/ auto diff absolute basos 0.11 K/uL 0.00-0 .08 high Not Available [facility] (Outpatient) [address] [place], [address], 01/16/2019 16:23:22 01/17/20 19 01/16/2019 CBC w/ auto diff granulocytes , immature 0.03 K/uL 0.00-0 .05 Not Available [facility] (Outpatient) [address] [place], [address], 01/16/2019 16:23:22 01/17/20 19 01/16/2019 eryth rocyt e sedim entat ion rate by prema sanchezo d ESR 9 mm/h 0-30 Not Available [facility] (Outpatient) [address] [place], [address], 01/16/2019 17:39:50 01/17/20 19 01/16/2019 C-andra ctive prote in, quant itati ve, serum or plasm a C reactive protein 5.2 mg/L 0.0-4. 0 high Not Available [facility] (Outpatient) [address] [place], [address], 01/16/2019 18:50:56 01/17/20 19 01/16/2019 CMP, serum or plasm a sodium 141 mmol/ L 133-14 6 Not Available [facility] (Outpatient) [address] [place], [address], 01/16/2019 22:11:00 01/17/20 19 01/16/2019 CMP, serum or plasm a potassium 4.4 mmol/ L 3.3-5. 1 Not Available [facility] (Outpatient) [address] [place], [address], 01/16/2019 22:11:00 01/17/20 19 01/16/2019 CMP, serum or plasm a chloride 102 mmol/ L 96-108 Not Available [facility] (Outpatient) [address] [place], [address], 01/16/2019 22:11:00 01/17/20 19 01/16/2019 CMP, serum or plasm a CO2 23 mmol/ L 21-35 Not Available [facility] (Outpatient) [address] [place], [address], 01/16/2019 22:11:00 01/17/20 19 01/16/2019 CMP, serum or plasm a BUN 23 mg/dL 6-19 high Not Available [facility] (Outpatient) [address] [place], [address], 01/16/2019 22:11:00 01/17/20 19 01/16/2019 CMP, serum or plasm a creatinine 1.50 mg/dL 0.5-1. 5 Not Available [facility] (Outpatient) [address] [place], [address], 01/16/2019 22:11:00 01/17/20 19 01/16/2019 CMP, serum or plasm a glucose 161 mg/dL 70-99 high Not Available [facility] (Outpatient) [address] [place], [address], 01/16/2019 22:11:00 01/17/2001/16/2019 CMP, serum or plasm a albumin 4.0 g/dL 3.9-4. 8 Not Available [facility] (Outpatient) [address] [place], [address], 01/16/2019 22:11:00 01/17/20 19 01/16/2019 CMP, serum or plasm a total protein 6.8 g/dL 6.5-8. 0 Not Available [facility] (Outpatient) [address] [place], [address], 01/16/2019 22:11:00 01/17/20 19 01/16/2019 CMP, serum or plasm a calcium 9.0 mg/dL 8.4-10 .3 Not Available [facility] (Outpatient) [address] [place], [address], 01/16/2019 22:11:00 01/17/20 19 01/16/2019 CMP, serum or plasm a alkaline phosphatase 78 U/L 39-117 Not Available [facility] (Out[facility]) [address] [place], [address], 01/16/2019 22:11:00 01/17/20 19 01/16/2019 CMP, serum or plasm a total bilirubin 0.4 mg/dL 0.0-1. 2 Not Available [facility] (Outpatient) [address] [place], [address], 01/16/2019 22:11:00 01/17/20 19 01/16/2019 CMP, serum or plasm a AST 21 U/L 0-37 Not Available [facility] (Outpatient) [address] [place], [address], 01/16/2019 22:11:00 01/17/20 19 01/16/2019 CMP, serum or plasm a ALT 19 U/L 0-40 Not Available [facility] (Outpatient) [address] [place], [address], 01/16/2019 22:11:00 01/17/20 19 01/16/2019 CMP, serum or plasm a globulin 2.8 g/dL 1-4.8 Not Available [facility] (Outpatient) [address] [place], [address], 01/16/2019 22:11:00 01/17/20 19 01/16/2019 CMP, serum or plasm a eGFR 35 mL/mi n/1.7 3m2 >59 low If patie nt is black , multi ply resul t by 1.159 . Estim ated glome rular filtr ation rate calcu lated using the CKD-E PI equat ion. Not Available [facility] (Outpatient) [address] [place], [address], 01/16/2019 22:11:00 01/17/20 19 01/16/2019 CMP, serum or plasm a anion gap 20 mmol/ L 10-20 Not Available [facility] (Outpatient) [address] [place], [address], 01/16/2019 22:11:00 06/12/20 18 06/12/2018 xr chest Pa and later al 2 views XR CHEST PA AND LATERA L 2 VIEWS HISTOR Y: * FATIGU E AND MALAIS E + DYSPNE A ON EXERTI ON [SIGN/ SX] TECHNI QUE: PA and latera l views chest. COMPAR EUNICE: 018. FINDIN GS: The cardio medias tinal and hilar silhou ettes are normal . The lungs are clear. There is no focal pulmon mercedes consol idatio n or pleura l effusi on. Surgic al clips seen in the right upper quadra nt. IMPRES OLYA: No acute pulmon mercedes proces s. Clear lungs. POS - CDHRAD BOARDW S4 Electr onical ly Signed by: Peggy Altman on 2017 12:27 PM Interp reted by: Peggy Altman MD Signed by: Peggy Altman MD Final result Pt states [facility] [address] [place], [address], 06/12/2018 20:56:35 09/07/19 19 09/06/2018 bd dxa axial (spin e) with hip COMPAR EUNICE: 2001 FINDIN GS: This is a 67-yea r-old postme nopaus al white female who report s 1 inch of percei joseluis height loss. Evalua tion of the lumbar spine and hips was perfor med and felt to be techni dariana adequa te. Total bone minera l densit y in the L1-L4 verteb ral bodies was calcul ated at 1.044 gm/cm2 with a T-scor e of 0 fallin g within the WHO classi ficati on of normal . Z-scor e of 1.9. Unable to assess for change in bone minera l densit y due to dissim ilar scan types/ analys is method s. Total bone minera l densit y in the right hip was calcul ated at 1.071 gm/cm2 with a T-scor e of 1.1 fallin g within the WHO classi ficati on of normal . Z-scor e of 2.4. 3.3% increa se in bone minera l densit y since the prior exam which is statis ticall y signif icant at the 95% confid ence level. Total bone minera l densit y in the left hip was calcul ated at 1.095 gm/cm2 with a T-scor e of 1.36 fallin g within the WHO classi ficati on of normal . Z-scor e of 2.6. 3.4% increa se in bone minera l densit y since the prior exam which is statis ticall y signif icant at the 95% confid ence level. IMPRES OLYA: Normal bone minera l densit y with statis ticall y signif icant increa se in bone minera l densit y in the hips since 2001. POS - CDHRAD BOARDW S11 Electr onical ly Signed by: RACHEL JANE on 019 3:21 PM Interp reted by: Rachel Jane MD Signed by: Rachel Jane MD 9 Final result [facility] [address] [facility], [place], [address], 09/08/2018 18:43:16 Result Notes None recorded. 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 502021258 Active 2017 admitted to [facility]; l[facility]atal 11/2017 Natalie Reveles MD [address] [place] [address], [place], [address], [facility] 20:36:49 Gastroes ophageal reflux disease 735667863 [facility] Mixed hyperlip idemia 732510457 Active 2001 Natalie Reveles MD [address] [place] [address] Betty Hernán[place], [address], [facility] 12:19:12 Colitis, enteriti s and gastroen teritis presumed infectio us 067324953 Completed 200611/06/2009 Natalie Reveles MD [address] [place] [address] Betty Hernán[place], [address], [facility] 15:03:24 Nausea 552509242 Completed 200611/06/2009 Natalie Reveles MD [address] [place], [place] [address], [address], [facility] 15:03:24 Essentia l hyperten olya 75797660 Completed 200311/06/2009 Natalie Reveles MD [address] [place] [address] Betty Hernán[place], [address], [facility] 15:03:24 Nausea and vomiting 33373887 Completed 200611/06/2009 Natalie Reveles MD [address] [place] [address] Betty Hernán[place], [address], [facility] 15:03:24 Cellulit is and abscess of buttock 239620047 Completed 200011/06/2009 Natalie Reveles MD [address] [place] [address] Betty Hernán[place], [address], [facility] 15:03:24 Urinary tract infectio us disease 42549624 Completed 200711/06/2009 Natalie Reveles MD [address] [place] [address] Betty Hernán[place], [address], [facility] 15:03:24 Benign essentia l hyperten olya 8342582 Active 2001 Natalie Reveles MD [address] [place] [address] Betty Hernán[place], [address], [facility] 12:19:12 Acute cystitis 39757011 Completed 200411/06/2009 Natalie Reveles MD [address] [place] [address] Betty Hernán[place], [address], [facility] 15:03:24 Acute pain 582137970 Completed 200711/06/2009 Natalie Reveles MD [address] [place] [address] Betty Hernán[place], [address], [facility] 15:03:24 Allergic rhinitis 13359618 Completed 200511/06/2009 Natalie Reveles MD [address] [place] [address] Betty Hernán[place], [address], [facility] 15:03:24 Osteoart hritis 487558067 Completed 200711/06/2009 Natalie Reveles MD [address] [place] [address] Betty Hernán[place], [address], [facility] 15:03:24 Sciatica 41787867 Active 2007 spinal stenosis Natalie Reveles MD [address] [place] [address] Betty Hernán[place], [address], [facility] 15:03:24 Diabetic on insulin 794093640 Active Natalie Reveles MD [address] [place] [address] Betty Hernán[place], [address], [facility] 12:19:12 Type 2 diabetes 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 complica tion 189938764 Active 2004 Natalie Reveles MD [address] [place] [address] Betty Hernán[place], [address], [facility] 12:19:12 Anemia 314203363 Completed 200611/06/2009 Natalie Reveles MD [address] [place] [address] Betty Hernán[place], [address], [facility] 15:03:24 Acute maxillar y sinusiti s 93311556 Completed 200311/06/2009 Natalie Reveles MD [address] [place] [address] Betty Hernán[place], [address], [facility] 15:03:24 Arteriti s 63387984 Completed 200511/06/2009 Natalie Reveles MD [address] [place] [address] Betty Hernán[place], [address], [facility] 15:03:24 Uncontro lled type 2 diabetes mellitus 688496020 Completed 200606/12/2013 Natalie Reveles MD [address] [place] [address] Betty Hernán[place], [address], [facility] 15:03:24 Degenera tive joint disease involvin g multiple joints 964225915 Completed 200006/12/2013 Natalie Reveles MD [address] [place] [address] Betty Hernán[place], [address], [facility] 15:03:24 Hyperlip idemia 95228724 Completed 200111/06/2009 Natalie Reveles MD [address] [place] [address] Betty Hernán[place], [address], [facility] 15:03:24 Backache 097844685 Completed 200711/06/2009 Natalie Reveles MD [address] [place], [place] [address], [address], [facility] 15:03:24 Malaise and fatigue 803864948 Completed 200111/06/2009 Natalie Reveles MD [address] [place] [address] Betty Hernán[place], [address], [facility] 15:03:24 Contact dermatit is 40870897 Completed 11/06/2009 Natalie Reveles MD [address] [place] [address] Betty Hernán[place], [address], [facility] 15:03:24 Cough 03326652 Completed 200411/06/2009 Natalie Reveles MD [address] [place] [address] Betty Hernán[place], [address], [facility] 15:03:24 Rheumato id arthriti s 32640571 Active sero-nega tive Natalie Reveles MD [address] [place] [address] Betty Hernán[place], [address], [facility] 12:19:12 Fever 950886139 Completed 200611/06/2009 Natalie Reveles MD [address] [place] [address] Betty Hernán[place], [address], [facility] 15:03:24 Allergic asthma without status asthmati cus 78749143 Active 2002 Natalie Reveles MD [address] [place] [address] Betty Hernán[place], [address], [facility] 15:03:24 Acute sinusiti s 71293452 Completed 05/14/2013 Natalie Reveles MD [address] [place] [address] Betty Hernán[place], [address], [facility] 15:03:24 Common cold 08605022 Completed 200211/06/2009 Natalie Reveles MD [address] [place] [address] Betty Hernán[place], [address], [facility] 15:03:24 Common cold 38160670 Completed 05/14/2013 Natalie Reveles MD [address] [place] [address] Betty Hernán[place], [address], [facility] 15:03:24 On examinat ion - a rash Completed 200511/06/2009 Natalie Reveles MD [address] [place], [place] [address], [address], [facility] 15:03:24 General symptom 147942830 Completed 200611/06/2009 Natalie Reveles MD [address] [place] [address] Betty Hernán[place], [address], [facility] 15:03:24 Blood chemistr y outside referenc e range 364371221 Completed 200311/06/2009 Natalie Reveles MD [address] [place], [place] [address], [address], [facility] 15:03:24 Hypothyr oidism 06279093 Completed 200607/22/2015 Natalie Reveles MD [address] [place], [place] [address], [address], [facility] 15:03:24 Mononeur itis 22137533 Active 2003 Natalie Reveles MD [address] [place], [place] [address], [address], [facility] 15:03:24 Primary fibromya lgia syndrome 44764288 Completed 200211/06/2009 Natalie Reveles MD [address] [place], [place] [address], [address], [facility] 15:03:24 Vaginiti s and vulvovag initis Completed 200011/06/2009 Natalie Reveles MD [address] [place], [place] [address], [address], [facility] 15:03:24 Problem Notes None recorded. Procedures Surgical History Date Name Laterality Status Provider Name and Address Organization Details Recorded Time 9 Medicare Wellness Visit completed Sarah Jewell MA [facility] 12/31/2018 14:43:15 8 Medicare Wellness Visit completed Liz Boyce CMA [facility] 12/27/2017 15:09:17 8 Post hospital[facility] completed Liz Boyce CMA [facility] 11/13/2017 14:14:12 8 Nebulizer Tx completed Karmen White LPN [facility] 08/02/2017 14:24:48 7 Medicare Wellness Visit completed Mary Finley MA [facility] 12/25/2016 09:27:15 Imaging Results Imaging Date Name Status LastModified by Organiz ation Details LastModified Time 06/12/2018 xr chest Pa and lateral 2 views completed [facility] [address] [place], [address], 06/12/2018 20:56:35 09/06/2018 bd dxa axial (spine) with hip completed [facility] [address] [place], [address], 09/08/2018 18:43:16 Procedure Notes None recorded. Medical Equipment None Reported. Allergies Allergen ID Allergen Name Allergen Category Reaction Reaction Severity Criticality Documentation Date Start Date Code Code System Note Provider Name and Address Organization Details Recorded Time [id number] doxycycli ne Not available nausea Not available Not available 11/27/2013 3640 RxNorm Kacey Espinoza MA [facility] 4 10:10:57 128297 codeine medicatio n nausea Not available Not available 08/17/2015 2670 RxNorm Angelica Hicks CMA [facility] 6 16:23:36 50549 Substance with sulfonami de structure and antibacte rial mechanism of action (substanc e) medicatio n hives Not available Not available 06/29/2010 79163 8003 SNOMED Not Available [facility] 1 06:05:41 Medications Name Sig Start Date Stop Date Status Note LastModified by Organization Details LastModified Time Singulair 10 mg tablet Take 1 tablet every day by oral route in the evening. active Not Available Not Available No t Available gabapenti n 600 mg tablet TK 3 TS PO QD active Not Available Not Available No t Available doxycycli ne hyclate 100 mg capsule Take 1 capsule twice a day by oral route for 10 days. 10/09 completed Not Available Not Available Not Available atorvasta tin 20 mg tablet TK 1 T PO QD active Not Available Not Available No t Available naproxen 375 mg
--- NOTE | 2024-06-24 07:58 | MHC.OFFVIS ---
Vital Signs 06/24/24 07:59 Height 4 ft 10 in Weight 145 lb 8.081 oz BMI 30.4 BP 94/54 L Blood Pressure Location Lt brachial Position Sitting Pulse 57 Pulse Source Pulse Oximeter Pulse Oximetry (%) 92 Oxygen Delivery Method Room Air Intake Visit Reasons: RA Intake Note: Patient last seen by Doctor Shannan on 04/01/24. Presents today for RA follow up XR Cervical/labs test results. Implementation Advisor Required: No Accompanied by: Self / Same As Patient Allergies duloxetine Allergy (Severe, Verified 06/24/24 08:06) LOOPY codeine [CODEINE] Allergy (Intermediate, Verified 06/24/24 08:06) GI UPSET doxycycline [DOXYCYCLINE] Allergy (Intermediate, Verified 06/24/24 08:06) RASH Sulfa (Sulfonamide Antibiotics) [SULFA (SULFONAMIDE ANTIBIOTICS)] Allergy (Intermediate, Verified 06/24/24 08:06) Hives Medication List - Last Reconciled 06/24/24 by Yanira Hurley MD albuterol sulfate 90 mcg/actuation (ProAir HFA) 2 puffs inhalation Q4-6H PRN 30 days ammonium lactate 12% 12 appl topical BID aspirin 81 mg PO DAILY betamethasone valerate 0.1% 1 appl topical BID PRN blood sugar diagnostic (RaNA TherapeuticsTouch Ultra Test strips) As directed 3x daily cholecalciferol (vitamin D3) (Vitamin D3) 4,000 units PO DAILY clotrimazole mg PO famotidine 40 mg PO TID ferrous sulfate 325 mg PO DAILY fluticasone propionate 50 mcg/actuation 2 sprays intranasal DAILY folic acid 1 mg PO DAILY furosemide 20 mg PO DAILY gabapentin 600 mg PO TID hydroxychloroquine 200 mg PO BID insulin glargine (Lantus Solostar U-100 Insulin) 60 units (0.6 mL) subcut BEDTIME 30 days insulin lispro (Humalog Kervin KwikPen (U-100)) 1 sliding scale dose subcut USEASDIRECTD insulin syringe-needle U-100 As directed ketoconazole 2% 1 appl topical BID lamotrigine 50 mg PO BID lidocaine 5% 1 patch topical DAILY lisinopril-hydrochlorothiazide 10-12.5 mg 1 tab PO DAILY 90 days loperamide 2 mg PO TID methotrexate sodium 20 mg (8 x 2.5 mg) PO QWEEK metronidazole 1% 1 appl topical DAILY nystatin 10 mL PO TID oxybutynin chloride ER 10 mg PO DAILY pen needle, diabetic (BD [place] 2nd Gen Pen Needle) As directed walker As directed zoledronic zild-ozgdhjru-fxhin 5 mg/100 mL (Reclast) 5 ea IV ONCE HPI Comments Details: Patient is a 73-year-old female with diabetes complicated by neuropathy, hypertension, polyarticular OA and seronegative erosive rheumatoid arthritis who presents for follow-up. Interval History: Last seen 03/2024 with me at that time patient continues to have evidence of synovitis despite increase in methotrexate. The decision was made to escalate therapy however this was put on hold since patient had a healing diabetic neuropathic ulcer that time. Last saw Podiatry 06/10. Told has good healing Continues to have prolonged AM stiffness (more than 1 hour) and swelling to her PIPs and MCPs occasionally Osteopenia - Diagnosed 01/23/2023 with T-score-2.1 at left femoral neck - FRAX score at that time meeting criteria for treatment with risk of hip fracture more than 3% and risk of major osteoporosis fracture more than 20%. - On Zolendronic Acid. Doses: 02/2023, 03/2024 Rheumatologic History: Subcutaneous methotrexate: start date unknown? Around 2019 or 2019-January 2022. Stopped due to insurance issues Plaquenil: Start date unknown ? 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 Edema of lower extremity present on examination Petechiae remote computer terminal operator use of drug Irritable bowel syndrome with diarrhea Rheumatoid arthritis Pacemaker TIA (transient ischemic attack) Dysphagia Spinal stenosis COVID COVID-19 Laryngopharyngeal reflux (LPR) Asthma Rotator cuff tendinitis Post-menopausal Polyarthralgia Dyspnea on exertion Allergic rhinitis Bronchitis Asthma exacerbation Cough variant asthma DJD (degenerative joint disease) Decreased hearing GERD (gastroesophageal reflux disease) Type 2 diabetes 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s Surgical History S/P placement of cardiac pacemaker History of esophagogastroduodenoscopy (EGD) History of colonoscopy (~09/05/21) Hx of cholecystectomy Hx of tonsillectomy Hx of hysterectomy Family History Father CVD (cardiovascular disease) Diabetes Mother Diabetes Sister No problems noted. Other Substance use disorder Social History Household Members: Family and None Housing: House Are you a primary child day care center worker to a significant other at home: No Do you presently have visiting nurse or other home services: No Alcohol intake: former Comment: WITHIN LAST MONTH Patient Tobacco Use Status: Never used Tobacco e-Cigarette/Vaping Use: Never Used Second Hand Smoke Exposure: No Advance Directives Date on File: 08/04/22 service: No Current occupational status: retired Cognitive needs: Yes (walker) Hearing needs: Yes (hearing aide) Vision needs: Yes (glasses) Review of Systems Const Details: Review of Systems Constitutional: Denies fever, chills, weight loss ENT: Denies vision changes, eye pain or eye redness, dental caries, dry mouth GI: Denies nausea, vomiting, diarrhea, abdominal pain, change in BM Pulm: Denies SOB, HECK, hemoptysis, wheezing Cards: Denies chest pain, palpitations Skin: Denies Raynaud's, rash, nail changes, photosensitivity, MACHINE ENGRAVER: Denies headaches, weakness, paresthesias, recurrent falls MSK: Complains of joint pain and joint stiffness. Denies joint swelling, muscle weakness, bone pain All other systems reviewed and are unremarkable except noted above Physical Exam Physical Examination Elderly female, frail Not able to rise from chair without support Constitutional: ?Mucous membranes pink and moist patient alert and cooperative HEENT: ?Conjunctiva and sclera clear. ?Pupils equal round and reactive to light. ?No lymphadenopathy. ?Normal dentition. Resp: ?Normal respiratory effort and able to speak in complete sentences. ?Clear to auscultation bilaterally. ?No crackles, rales, rhonchi, wheezes heard. Cards: ?Regular rate and rhythm. ?S1 and S2 heard no murmurs. ?Radial pulses intact bilaterally MSK: ?Swelling and tenderness noted to the PIPs of the left 5th, 2nd digits as well as the right 2nd and 4th digits. No swelling or tenderness to palpation of the wrist, elbows. Some tenderness to palpation of bilateral AC joints. No swelling or tenderness to palpation of bilateral knees. Negative squeeze test bilateral feet. Results Reviewed Results Reviewed: Laboratory Tests 04/04/24 05/06/24 11:29 10:46 WBC 7.8 RBC 3.05 L Hgb 10.3 L Hct 28.8 L Plt Count 183 Sodium 141 Potassium 4.0 Chloride 105 Carbon Dioxide 28 BUN 32 H Creatinine 1.22 Estimated GFR 43 AST 28 ALT 45 H Alkaline Phosphatase 60 XR C-spine 03/2024 FINDINGS: The cervical spine is visualized in its entirety. Normal C1/2 articulation. In neutral positioning there is minimal anterolisthesis of C4 on C5. With flexion positioning the anterolisthesis of C4 on C5 is mildly increased in prominence and there is also noted to be minimal anterolisthesis of C3 on C4. Extension positioning results in normal alignment and resolution of the C4/5 anterolisthesis. Cervical vertebral body heights are maintained. Cervical disc spaces are maintained. Prominent osteophytes at the C6/7 level. There is mild narrowing of the right C3/4 neural foramina. Other bilateral neural foramen are widely patent. Visualized lung apices are well aerated. Partially visualized pacemaker leads. No evidence of atlanto-axial instability (my read) XR Hands 08/2023 FINDINGS: Right hand: The bones are intact. No fracture or dislocation. Alignment is anatomic. There is mild osteoarthritis at the IP joint of the thumb with joint space narrowing and osteophyte formation. There is a small cyst or erosion of the ulnar styloid and distal aspect of the radius. There are small erosions of the distal medial aspect of the proximal phalanges of the index middle and ring finger. Left hand: The bones are intact. No fracture or dislocation. Alignment is anatomic. There is osteoarthritis of the IP joint with joint space narrowing and osteophyte formation of the thumb. There is osteoarthritis of the DIP joint joint of the index finger and PIP joint of the middle finger. There is question of a small erosion or cyst of the radial styloid. There is some adjacent soft tissue calcification as well. It is possible this is related to old trauma. There is an erosion of the distal proximal phalangeal of the middle finger, and also the first and second metacarpal heads. DEXA 01/2023 FINDINGS: AP SPINE L1-L2 (excluding L3 and L4): The data of L1-L4 has been changed to exclude the L3 and L4 vertebral bodies, because degenerative sclerosis at these levels may cause overestimation of lumbar spine density. Current: BMD 1.032 g/cm2, Z-score 0.3, T-score -1.1, osteopenia, 2.0% increase from baseline (<5% change is not significant). Baseline: BMD 1.012 g/cm2. LEFT FEMUR, NECK: Current: BMD 0.745 g/cm2, Z-score -0.5, T-score -2.1, osteopenia. Baseline: BMD 0.975 g/cm2. LEFT FEMUR, TOTAL: Current: BMD 0.882 g/cm2, Z-score 0.4, T-score -1.0, normal, 18.2% decrease from baseline (<5% change is not significant). Baseline: BMD 1.078 g/cm2. FRAX: 10-YEAR FRACTURE RISK PREDICTION, FRAX: Major osteoporotic fracture (clinical spine, forearm, hip or shoulder) 24.2%. Hip fracture 6.7%. Assessment & Plan Assessment & Plan (1) Rheumatoid arthritis with negative rheumatoid factor: Comment: Subcutaneous methotrexate: start date unknown? Around 2018 or 2019-January 2022 Plaquenil: Start date unknown ? Around 2018 or 2019 Oral methotrexate- January 2022 to present Code(s): M06.00 - Rheumatoid arthritis without rheumatoid factor, unspecified site Category: Medical Qualifiers: Rheumatoid arthritis location: multiple sites Qualified Code(s): M06.09 - Rheumatoid arthritis without rheumatoid factor, multiple sites Plan: #Seronegative Erosive RA Patient disease not under control at this time with evidence of synovitis of PIPs DIPs involving bilateral hands. Currently on maximum tolerated methotrexate. Given her mild elevation in AST would not want to add another medication such as leflunomide to her medication regimen We will plan to start Humira 40 mg SC every 2 weeks. We will need to start prior authorization for same Plan - Start Humira 40mg SC every 2 weeks - Continue Mtx 20mg weekly PO (split dosing 4 pills in the morning 4 pills in the evening) - Folic acid 1mg PO - Continue Plaquenil 400mg daily PO - Check CBC, CMP, Hep B, Hep C, ESR, CRP - RTC 4 months (2) Osteoarthritis of hands, bilateral: Code(s): M19.041 - Primary osteoarthritis, right hand; M19.042 - Primary osteoarthritis, left hand Category: Medical Qualifiers: Osteoarthritis type: primary Qualified Code(s): M19.041 - Primary osteoarthritis, right hand; M19.042 - Primary osteoarthritis, left hand Plan: #Bilateral hand osteoarthritis Patient with bilateral hand osteoarthritis as evidenced by x-rays as well as Heberden's nodes noted to the DIPs While she may have some osteoarthritis contributing to her pain the swelling and tenderness to palpation of the PIPs is more consistent with rheumatoid arthritis Plan - Topical diclofenac gel for hands bilaterally up to 4 times a day - Has order for PT (3) Osteoporosis: Code(s): M81.0 - Age-related osteoporosis without current pathological fracture Qualifiers: Osteoporosis type: age-related Presence of current pathological fracture: without current pathological fracture Qualified Code(s): M81.0 - Age-related osteoporosis without current pathological fracture Plan: #Osteoporosis Based on elevated FRAX index Started zoledronic acid 03/14/2023 with plan to continue for 5 years and then give drug holiday No current fractures Plan - Continue zoledronic acid next due 03/2025 - Plan for drug holiday in 2027 (4) 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 Limit alcohol and avoid Bactrim ? Monitoring: ?CBC, BMP, LFTs every 3-4 months and hepatitis serologies as needed Note made of her elevated AST and we will follow this. (5) Long-term use of hydroxychloroquine: Comment: Eye exam OK 08/2022 Code(s): Z79.899 - Other terminal gauger supervisor (current) drug therapy Category: Medical Plan: #Long-term Use of Hydroxychloroquine Discussed with patient the risks and benefits of hydroxychloroquine in managing the rheumatic condition Benefits include: - Reduced pain, reduce mortality, maintenance of remission and reduction of flares Risks include: - GI upset, skin hyperpigmentation, retinal toxicity (especially after more than 5 years of use), myopathy Advised yearly ophthalmology visits Last ophthalmology visit: 08/2022 Plan I spent 40 minutes reviewing the record and labs, seeing the patient, discussing the treatment plan and documenting in the medical record Orders: Orders Complete Blood Count Auto Diff Today M06.09 - Rheumatoid arthritis without rheumatoid factor, multiple sites, Z79.631 - intermediate (current) use of antimetabolite agent T Spot TB Today M06.09 - Rheumatoid arthritis without rheumatoid factor, multiple sites, Z79.631 - intermediate (current) use of antimetabolite agent Hepatitis A,B,C Profile Today M06.09 - Rheumatoid arthritis without rheumatoid factor, multiple sites, Z79.631 - 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 (current) use of antimetabolite agent Medications: New adalimumab (Humira(CF) Pen) 40 mg (0.4 mL) subcut Q2W 30 days 2 ea 6RF M06.09 - Rheumatoid arthritis without rheumatoid factor, multiple sites Coding Level of Care Code Est Pt Level 5 (21352) Complex EM visit Add On G2211 Diagnoses Rheumatoid arthritis of multiple sites with negative rheumatoid factor M06.09 Rheumatoid arthritis location: multiple sites Primary osteoarthritis of both hands M19.041; M19.042 Osteoarthritis type: primary Age-related osteoporosis without current pathological fracture M81.0 Osteoporosis type: age-related Presence of current pathological fracture: without current pathological fracture 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
[2024-06-24 07:59] VITALS: BP 94/54; PULSE 57; O2SAT 92; BMI 30.4
== END 2024-06-24 08:46 | disposition home or self-care (01) ==
PROVIDERS: PCP Internal Medicine; Visit Provider Student in an Organized Health Care Education/Training Program
DX: M06.09 Rheumatoid arthritis without rheumatoid factor, multiple sites (principal); M19.041 Primary osteoarthritis, right hand; M19.042 Primary osteoarthritis, left hand; M81.0 Age-related osteoporosis without current pathological fracture; Z79.631 Long term (current) use of antimetabolite agent; Z79.899 Other long term (current) drug therapy
CPT/HCPCS: 99215; G2211

== ENCOUNTER 2024-06-24 07:53 | Outpatient (REF) | payer MEDICARE, SELFPAY ==
[2024-06-24 09:22] LABS: MANUAL DIFF FLAG NO
[2024-06-24 10:56] LABS: Basophils Absolute Auto 0.1 X10*3/uL (0.0-0.2); Basophils Percent Auto 0.9 % (0-2); Eosinophils Absolute Auto 0.3 X10*3/uL (0.0-0.4); Hematocrit 28.8 % (37.0-47.0); Hemoglobin 10.1 g/dl (12.0-16.0); Imm Gran Abs Auto 0.04 X10*3/uL (0.00-0.03); Imm Gran Pct Auto 0.4 % (0.0-0.4); Lymphocytes Absolute Auto 0.8 X10*3/uL (1.2-4.9); Lymphocytes Percent Auto 8.7 % (20-40); Mean Corpuscular HGB Conc 35.1 g/dl (31.0-35.0); Mean Corpuscular Hemoglobin 33.8 pg (27.0-33.0); Mean Corpuscular Volume 96.3 fL (80.0-98.0); Mean Platelet Volume 11.2 fL (9.4-12.3); Monocytes Absolute Auto 0.8 X10*3/uL (0.1-1.2); Monocytes Percent Auto 8.3 % (2-11); Neutrophils Absolute Auto 7.5 x10*3/uL (2.0-8.3); Neutrophils Percent Auto 78.7 % (45-73); Platelet Count 191 X10*3/uL (160-400); Red Blood Count 2.99 X10*6/uL (4.20-5.50); Red Cell Distribution Width 15.3 % (11.0-16.0); White Blood Count 9.5 X10*3/uL (4.8-10.8)
[2024-06-24 11:35] LABS: Alanine Aminotransferase 38 U/L (0-31); Albumin Level 4.3 g/dL (3.5-5.0); Alkaline Phosphatase 60 U/L (39-117); Anion Gap 15 (12-20); Aspartate Amino Transferase 33 U/L (5-31); Bilirubin Total 0.7 mg/dL (0.0-1.0); Blood Urea Nitrogen 30 mg/dL (9-16); C Reactive Protein 1.76 mg/dL (< or = 0.50); Calcium 8.7 mg/dL (8.4-10.2); Carbon Dioxide 25 mmol/L (22-29); Chloride 104 mmol/L (96-108); Estimated Glomerular Filt Rate 35; Glucose Random 98 mg/dL (60-115); Potassium 3.5 mmol/L (3.3-5.1); Sodium 140 mmol/L (135-145); Total Protein 6.7 g/dL (6.5-8.0)
[2024-06-24 12:00] LABS: Erythrocyte Sedimentation Rate 23 MM/HR (0-20)
[2024-06-24 12:16] LABS: HBS Num1 0.41 mIU/mL (0-7.99); HBc Num1 0.17 S/CO (0.00-0.79); HBsAGNum1 0.33 S/CO (0.00-0.99); Hepatitis A Antibody IgM 0.17 Index (0-0.79); Hepatitis B Core Antibody Nonreactive (Nonreactive); Hepatitis B Surface Antigen Negative (Negative); ~HepC Num1 0.07 S/CO (0.00-0.79); ~Hepatitis A Antibody IgM Nonreactive (Nonreactive); ~Hepatitis B Surface Antibody NONREACTIVE (Nonreactive); ~Hepatitis C Antibody Nonreactive (Nonreactive)
[2024-06-26 10:29] LABS: Prot Elec - Albumin 4.3 g/dL (3.8-4.8); Prot Elec - Alpha1 0.4 g/dL (0.2-0.3); Prot Elec - Alpha2 0.7 g/dL (0.5-0.9); Prot Elec - Beta 1 0.4 g/dL (0.4-0.6); Prot Elec - Beta 2 0.3 g/dL (0.2-0.5); Prot Elec - Gamma 0.7 g/dL (0.8-1.7); Prot Elec - Total Protein 6.8 g/dL (6.1-8.1)
[2024-06-26 18:24] LABS: TS Negative Control Passed; TS Panel A 0; TS Panel B 0; TS Positive Control Passed; TSpotTB Negative (Negative)
== END 2024-06-24 07:54 | disposition home or self-care (01) ==
LOC: HO.LAB 07:53
PROVIDERS: PCP Internal Medicine; Visit Provider Student in an Organized Health Care Education/Training Program
DX: M06.09 Rheumatoid arthritis without rheumatoid factor, multiple sites (principal); Z79.631 Long term (current) use of antimetabolite agent; M19.041 Primary osteoarthritis, right hand; M19.042 Primary osteoarthritis, left hand; M81.0 Age-related osteoporosis without current pathological fracture; Z79.899 Other long term (current) drug therapy
CPT/HCPCS: 36415; 80053; 84165; 85025; 85652; 86140; 86481; 86704; 86706; 86709; 86803; 87340; 99212

== ENCOUNTER 2024-07-22 09:57 | Outpatient (AMB) | payer MEDICARE, SELFPAY ==
[2024-07-22 10:11] VITALS: BP 124/72; PULSE 67; BMI 29.5
--- NOTE | 2024-07-22 10:11 | A.OFFVIS_ITS ---
Vital Signs 07/22/24 10:11 Height 4 ft 10 in Weight 141 lb 1.533 oz BMI 29.5 BP 124/72 Blood Pressure Location Lt brachial Position Sitting Pulse 67 Intake Visit Reasons: 6m follow up Intake Note: 6 month follow-up [facility] and ekg feeling ok Product/Industry Consultant Required: No Allergies duloxetine Allergy (Severe, Verified 06/24/24 08:06) LOOPY codeine [CODEINE] Allergy (Intermediate, Verified 06/24/24 08:06) GI UPSET doxycycline [DOXYCYCLINE] Allergy (Intermediate, Verified 06/24/24 08:06) RASH Sulfa (Sulfonamide Antibiotics) [SULFA (SULFONAMIDE ANTIBIOTICS)] Allergy (Intermediate, Verified 06/24/24 08:06) Hives Medication List - Last Reconciled 07/22/24 by Jose Perez MD adalimumab (Humira(CF) Pen) 40 mg (0.4 mL) subcut Q2W albuterol sulfate 90 mcg/actuation (ProAir HFA) 2 puffs inhalation Q4-6H PRN 30 days ammonium lactate 12% 12 appl topical BID aspirin 81 mg PO DAILY atorvastatin 10 mg PO BEDTIME betamethasone valerate 0.1% 1 appl topical BID PRN blood sugar diagnostic (OneTouch Ultra Test strips) As directed 3x daily cholecalciferol (vitamin D3) (Vitamin D3) 4,000 units PO DAILY famotidine 40 mg PO BID fluticasone propionate 50 mcg/actuation 2 sprays intranasal DAILY folic acid 1 mg PO DAILY furosemide 10 mg PO DAILY gabapentin 600 mg PO TID hydroxychloroquine 200 mg PO BID insulin glargine (Lantus Solostar U-100 Insulin) 60 units (0.6 mL) subcut BEDTIME 30 days insulin lispro (Humalog Kervin KwikPen (U-100)) 1 sliding scale dose subcut USEASDIRECTD insulin syringe-needle U-100 As directed ketoconazole 2% 1 appl topical BID lamotrigine 50 mg PO BID lidocaine 5% 1 patch topical DAILY lisinopril-hydrochlorothiazide 10-12.5 mg 1 tab PO DAILY 90 days loperamide 2 mg PO TID methotrexate sodium 20 mg (8 x 2.5 mg) PO QWEEK metronidazole 1% 1 appl topical DAILY nystatin 10 mL PO TID oxybutynin chloride ER 10 mg PO DAILY pen needle, diabetic (BD [place] 2nd Gen Pen Needle) As directed walker As directed zoledronic dphl-qrfmjaqb-rxfew 5 mg/100 mL (Reclast) 5 ea IV ONCE HPI Comments Details: Kriss comes for follow-up. She denies any new cardiac complaints. She denies any symptoms of palpitations. Denies any exertional chest pain or shortness of breath. No worsening symptoms of heart failure. No lightheadedness, syncope. 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 Irritable bowel syndrome with diarrhea Rheumatoid arthritis Pacemaker TIA (transient ischemic attack) Dysphagia Spinal stenosis COVID COVID-19 Laryngopharyngeal reflux (LPR) Asthma Rotator cuff tendinitis Post-menopausal Polyarthralgia Dyspnea on exertion Allergic rhinitis Bronchitis Asthma exacerbation Cough variant asthma DJD (degenerative joint disease) Decreased hearing GERD (gastroesophageal reflux disease) Type 2 diabetes 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s Surgical History S/P placement of cardiac pacemaker History of esophagogastroduodenoscopy (EGD) History of colonoscopy (~09/05/21) Hx of cholecystectomy Hx of tonsillectomy Hx of hysterectomy Family History Father CVD (cardiovascular disease) Diabetes Mother Diabetes Sister No problems noted. Other Substance use disorder Social History Household Members: Family and None Housing: House Are you a primary emergency care tech to a significant other at home: No Do you presently have visiting nurse or other home services: No Alcohol intake: former Comment: WITHIN LAST MONTH Patient Tobacco Use Status: Never used Tobacco e-Cigarette/Vaping Use: Never Used Second Hand Smoke Exposure: No Advance Directives Date on File: 08/04/22 service: No Current occupational status: retired Cognitive needs: Yes (walker) Hearing needs: Yes (hearing aide) Vision needs: Yes (glasses) Review of Systems Const Denies chills, Denies fatigue, Denies fever(s), Denies frequent falls, Denies weakness, Denies weight gain and Denies weight loss ENT Denies dizziness Card Denies chest pain, Denies leg edema, Denies lightheadedness, Denies palpitations, Denies dyspnea, Denies dyspnea on exertion, Denies orthopnea and Denies other (loss of consciousness) Resp Denies cough, Denies dyspnea and Denies dyspnea on exertion GI Denies hematochezia and Denies change in stool character Musc Denies abnormal gait, Denies muscle weakness, Denies numbness, Denies radiating pain into limb and Denies tingling Neuro Denies Abnormal speech present, Denies abnormal gait, Denies dizziness, Denies frequent falls, Denies numbness, Denies tingling and Denies weakness Endo Denies fatigue and Denies palpitations Physical Exam Vital Signs: Last Vital Signs Pulse 67 07/22/24 10:11 BP 124/72 07/22/24 10:11 BMI result Body Mass Index 29.5 Const General: cooperative, comfortable, no acute distress, alert, awake and well groomed Nutritional Appearance: overweight Orientation/consciousness: patient oriented x3 Limitations: ambulation with walker Neck Neck: Yes trachea midline, Yes supple and Yes no JVD Resp Effort & Inspection: normal respiratory effort Auscultation: clear to auscultation bilaterally Cardio Jugular venous distension: no JVD Palpation: normal PMI Rate: regular rate Rhythm: regular rhythm Heart sounds: S1 normal heart sound present, S2 normal heart sound present, no click, no gallops, no murmurs and no rubs Bruits: no carotid bruits Neuro General: patient oriented x3 and no focal motor deficits Speech: No Abnormal speech present Extrem General: Yes no clubbing, cyanosis or edema Office Procedures Cardiac Device Check Cardiac Device Check Details: Dual-chamber [facility] pacemaker in place. Programmed in DDDR at 60 beats per minute. Atrial pacing 14% time. Ventricular pacing 100% time. One episode of nonsustained VT noted. Atrial ventricular capture thresholds are adequate and in auto capture mode. Atrial sensing is excellent. Pacing lead impedance is stable. Battery life is at 8.4 years 58618-BZ Cardiac Device Check, pacemaker dual lead Procedure code (CPT) selection complete EKG Details: EKG shows atrial sensed, ventricularly paced rhythm 98525-[id number], Complete Assessment & Plan Assessment & Plan (1) Non-sustained ventricular tachycardia: Code(s): I47.29 - Other ventricular tachycardia Category: Medical Plan: Newly detected nonsustained ventricular tachycardia in this elderly woman. Need to rule out structural heart disease. Most importantly ruled out myocardial ischemia and cardiomyopathy process. Will suggest an echocardiogram and vasodilating myocardial perfusion imaging in the near future. If this is within normal limits may require cardiac MRI to evaluate for infiltrative disorder such as sarcoidosis which may car changer. This was discussed with her. She understands agrees. Meanwhile started on metoprolol 50 mg daily to reduce exci tability. Further treatment based on the test findings. (2) Pacemaker: Code(s): Z95.0 - Presence of cardiac pacemaker Category: Medical Plan: Cardiac pacemaker in-situ, working well placed for complete heart block. Reprogrammed. Will follow remotely every 3 months. Discussed the importance of remote monitoring. Will follow up in the clinic in 6 months time, sooner p.r.n.. Thank you for allowing me to partake in his care Orders: Orders CA echo transthoracic complete Today Jose Perez MD I47.29 - Other ventricular tachycardia CA lexiscan stress w rodolfo Today Jose Perez MD I47.29 - Other ventricular tachycardia Medications: New metoprolol succinate ER (Toprol XL) 50 mg PO DAILY 30 tabs 5RF Jose Perez MD I47.29 - Other ventricular tachycardia Changed From famotidine 40 mg PO TID 270 tabs 1RF K21.9 - Gastro-esophageal reflux disease without esophagitis, K22.10 - Ulcer of esophagus without bleeding To famotidine 40 mg PO BID K21.9 - Gastro-esophageal reflux disease without esophagitis, K22.10 - Ulcer of esophagus without bleeding Tracey RACHELE Goodwin-C From furosemide 20 mg PO DAILY 90 tabs 1RF To furosemide 10 mg PO DAILY Angel Pablo MD Coding Level of Care Code Est Pt Level 4 (07459) Complex EM visit Add On G2211 Diagnoses Non-sustained ventricular tachycardia I47.29 Pacemaker Z95.0 CPT Codes Cardiac Device Check - Cardiac Device 2: 17848-YD Cardiac Device Check, pacemaker dual lead ([id number]) EKG - CPT: 07147-[id number], Complete ([id number])
--- OUTSIDE RECORDS SUMMARY | 2024-07-22 10:38 | XMS_ITS ---
[facility] Address [address] [place] [address] Care Team Providers Care Director Quality Systems Name Role Phone Angel Pablo Primary Care Provider Antonio Giles Unavailable [phone] Allergies Allergen (clinical drug ingredient) Drug/Non Drug [...] other tobacco user? No Vital Signs Height 0yl57gr in 04/15/2024 Weight 146 lbs 04/15/2024 BMI 30.51 kg/m2 04/15/2024 Blood pressure systolic 109 mm Hg 04/15/20 24 Blood pressure diastolic 54 mm Hg 024 Procedures Procedure Date Ordered Date Performed Result Body Sit e 62872- Debride <25 sq cm 04/15/2024 N/A Encounters Encounter Location Date Provider Diagnosis [facility] [address] [place] [address] 04/15/2024 Antonio Montoyaunier Neuropathic ulcer of right [...] INSTRUCTIONS.pdf) Pending Test Test Name Order Date 73243- Debride <25 sq cm 04/15/2024 Next Appt Details Follow Up: 4 Weeks, Reason: Provider Name:Antonio Giles , 09/16/2024 10:30:00 AM, [address] [place] [address], [id number], Procedure Notes * Category Sub-Category Detail Notes [...] of the wound post debridement is stable (45732) Progress Notes * Jose JACKSONOB:1950 ([age] yo F)Acc No.[id number]:04/15/2024 Progress Notes Patient:Kriss Maki Provider:?Antonio Giles DPM :1950???Age:73 Y???Sex:Female D ate:04/15/2024 Address:[address] [place], [place] [id number] Pcp:Angel Pablo Subjective: * Chief Complaints: * [...] yes, housework,shooping. ?Marital status: . 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 * Medications:?TakingoxyBUTYni n Vitamin D Zoledronic Acid [...] eine: stomach upsetDoxycyclineDuloxetineCymbaltayes[Allergies Verified] Objective: * Vitals:?Ht: 5zk09ex, Wt:146, BMI:30.51, Shoe size: 7, BP:109/54 mm [...] of the wound post debridement is stable (04814).? * Procedure Codes:?72298 ACTIV E WOUND CARE/20 CM OR < [...] Giles DPM Date:?2023 Generated for Shanique alatorre/Lloyd/Jemalitting on:?07/22/2024 10:38 AM EST History and Physical Notes * [...]
--- OUTSIDE RECORDS SUMMARY | 2024-07-22 10:39 | XMS_ITS | Data Portability ---
Author Organization [facility], [facility] Address [address] [place] [address] Assessment Encounter Date Assessment Date Assessment LastModified by Organization Details LastModified Time 04/30/2018 04/30/2018 Blood pressure i s at goal with which is below 140/90 for a diabetic. She is looking for alternative activities in her [facility]. Her A1c of 5.5% shows excellent diabetes control (goal below 7.5-8%). She will continue with [facility] in diabetes education for that. [...] to what she tells us from her ep specialist, and she will try and get us those records. He continues with cytotechnologist and on prednisone. She will follow-up in [...] bp more regularly 3) Patient regularly sees ep specialist who will check A1C and adjust rx [...] with new provider (will be changing to [facility] for convenience) 9) RA stable; may be [...] get plenty of rest, fluids, and f/u [email or web address] Not available 02/20/2019 10:14:07 Plan of Treatment Reminders Order Date Submit Date Provider Last Modified By Organization Details Last Modified Time Details Appointments None recorded. Lab TSH, serum or plasma 2017 018 [facility], [address] [place] [address], [address], 8 16:26:11 CBC 2017 018 [facility], [address] [place], [address], 8 14:43:05 Referral None recorded. Procedures None recorded. Surgeries None recorded. Imaging None recorded. Medication Orders cefpodoxim e 200 mg tablet 2018 019 [facility] #[id number], [address], [place], [id number], 9 14:47:44 atorvastat in 20 mg tablet 2018 019 [facility] #[id number], [address], [place], [id number], 9 16:34:01 lidocaine 5 % topical patch 2018 019 [facility] #[id number], [address], [place], [id number], 9 13:32:45 omeprazole 20 mg capsule,de layed release 2018 019 [facility] #[id number], [address], [place], [id number], 9 16:34:01 lisinopril 10 mg-hydroch lorothiazi de 12.5 mg tablet 2018 019 [facility] #82188, [address], [place], [id number], 9 16:34:01 cefpodoxim e 200 mg tablet 2018 019 [facility] #70553, [facility], [place], [id number], 9 12:53:28 Patient TargetsNo targets recorded. Patient Instructions Encounter Date Encounter Id Patient Instructions Last Modified By Organization Details Last Modified Time 04/30/2018 [id number] high cholesterol lifestyle changes nikki Not available 04/30/2018 11:19:19 high blood pressure: care instructions nikki Not available 04/30/2018 11:19:19 learning about high blood pressure nikki Not available 04/30/2018 11:19:19 asthma handout / teaching nikki Not available 04/30/2018 11:19:19 asthma action plan nikki Not availab le 04/30/2018 11:19:[address] an ages 0-11 yrs danish nikki Not available 04/30/2018 11:19:19 CCM: The provide r and patient discussed the Chronic Care Management program, including the services provided, and any fees associated with them. michele Not available 04/30/2018 11:32:47 08/29/2018 [id number] My Health To Do List Specific Analgesia [...] medication. spise Not available 08/29/2018 11:18:25 12/31/2018 [id number] After a discussi on of treatment options, which included consideration of best practices and patient preferences, the above treatment plan and objectives were adopted: monito bp at home. Try wheeled walker nikki Not available 01/05/2019 14:12:26 Reason for Referral None Reported. Results Created Date Observation Date Name Description Value Unit Range Abnormal Flag Note LastModifiedBy Organization Detail LastModifiedTime 04/26/20 18 04/26/2018 HbA1c (hemo globi n A1c), blood hemoglobin A1C 5.5 % 4.8-6. 0 Goal: <7% in Patie nts with Diabe sarath Not Available [address], [address], 04/26/2018 15:36:01 04/26/20 18 04/26/2018 HbA1c (hemo globi n A1c), blood estimated average glucose 111.2 mg/dL Not Available [address], [address], 04/26/2018 15:36:01 04/26/20 18 04/26/2018 micro album in, urine microalbumin 39.3 mg/L 1.3-20 .0 high Not Available [address], [address], 04/26/2018 15:37:51 04/26/20 18 04/26/2018 micro album in, urine creatinine urine 193.6 mg/dL 30.0-1 25.0 high Not Available [address], [address], 04/26/2018 15:37:51 04/26/20 18 04/26/2018 micro album in, urine microalb/cre at ratio 20.3 mg/g_ creat 0.0-29 .0 Not Available [address], [address], 04/26/2018 15:37:51 04/26/20 18 04/26/2018 BMP, serum or plasm a glucose 74 mg/dL 70-100 Not Available [address], [address], 04/26/2018 16:07:42 04/26/20 18 04/26/2018 BMP, serum or plasm a BUN 16 mg/dL 7-18 Not Available [address], [address], 04/26/2018 16:07:42 04/26/20 18 04/26/2018 BMP, serum or plasm a creatinine 1.1 mg/dL 0.8-1. 3 Not Available [address], [address], 04/26/2018 16:07:42 04/26/20 18 04/26/2018 BMP, serum or plasm a B/C 14.5 ratio Not Available [address], [address], 04/26/2018 16:07:42 04/26/20 18 04/26/2018 BMP, serum or plasm a GFR -non 55.5 mL/mi n Recom zhane d GFR by the Natio nal Kidne y Found ation >60 mL/mi n/1.7 3m2 - Patricia l <60 mL/mi n/1.7 3m2 - Chron ic Kidne y Disea se <15 mL/mi n/1.7 3m2 - Kidne y Failu re Not Available [address], [address], 04/26/2018 16:07:42 04/26/20 18 04/26/2018 BMP, serum or plasm a GFR - if 63.8 mL/mi n For Afric an Ameri can patie nts: Resul ts Multi plied by 1.21 Not Available [address], [address], 04/26/2018 16:07:42 04/26/20 18 04/26/2018 BMP, serum or plasm a sodium 143 mmol/ L 136-14 5 Not Available [address], [address], 04/26/2018 16:07:42 04/26/20 18 04/26/2018 BMP, serum or plasm a potassium 4.6 mmol/ L 3.5-5. 1 Not Available [address], [address], 04/26/2018 16:07:42 04/26/20 18 04/26/2018 BMP, serum or plasm a chloride 105 mmol/ L 96-107 Not Available [address], [address], 04/26/2018 16:07:42 04/26/20 18 04/26/2018 BMP, serum or plasm a anion gap 11.1 5.0-15 .0 Not Available [address], [address], 04/26/2018 16:07:42 04/26/20 18 04/26/2018 BMP, serum or plasm a CO2 27 mmol/ L 21-32 Not Available [address], [address], 04/26/2018 16:07:42 04/26/20 18 04/26/2018 BMP, serum or plasm a calcium 9.2 mg/dL 8.5-10 .3 Not Available [address], [address], 04/26/2018 16:07:42 04/26/20 18 04/26/2018 lipid panel , serum cholesterol 106 mg/dL <200 mg/dl Avelino able 200-2 39 mg/dl Borde rline High >240 mg/dl High Not Available [address], [address], 04/26/2018 16:07:44 04/26/20 18 04/26/2018 lipid panel , serum triglyceride s 184 mg/dL <150 mg/dL Patricia l 150-1 99 mg/dL Borde rline High 200-4 99 mg/dL High >500 mg/dL Very High Not Available [address], [address], 04/26/2018 16:07:44 04/26/20 18 04/26/2018 lipid panel , serum direct HDL 39 mg/dL <40 mg/dl - Major Risk for CHD >60 mg/dl - Negat jeannette Risk for CHD Not Available [address], [address], 04/26/2018 16:07:44 04/26/20 18 04/26/2018 LDL, calcu lated , serum (OBS) LDL - calculated 30.2 RISK CATEG ORY LDL GOAL _ CHD or CHD Risk Equiv alent s <100 mg/dl (10-y ear risk >20%) 2+ Risk Facto rs <130 mg/dl (10-y ear risk <= 20%) 0-1 Risk Facto r? <160 mg/dl ? Almos t all peopl e with 0-1 risk facto r have a 10 year risk <10%, thus 10 year risk asses ment in peopl e with 0-1 risk facto r is not martha baker. Not Available [address], [address], 04/26/2018 16:07:45 04/26/20 18 04/26/2018 AST/S GOT (aspa rtate amino trans feras e), serum or plasm a AST 18 U/L 15-37 Not Available [address], [address], 04/26/2018 16:25:23 04/26/20 18 04/26/2018 ALT (karen ine amino trans feras e), serum or plasm a ALT 26 U/L 30-65 low Not Available [address], [address], 04/26/2018 16:25:24 04/30/20 18 04/30/2018 CBC WBC 8.9 K/? ? ?L 4.0-10 .0 Not Available [address], [address], 04/30/2018 14:43:04 04/30/20 18 04/30/2018 CBC RBC 4.13 M/? ? ?L 3.93-5 .22 Not Available [address], [address], 04/30/2018 14:43:04 04/30/20 18 04/30/2018 CBC HGB 11.9 g/dL 11.2-1 5.7 Not Available [address], [address], 04/30/2018 14:43:04 04/30/20 18 04/30/2018 CBC HCT 35.9 % 34.1-4 4.9 Not Available [address], [address], 04/30/2018 14:43:04 04/30/20 18 04/30/2018 CBC MCV 86.9 ? ? ?L 79.4-9 4.8 Not Available [address], [address], 04/30/2018 14:43:04 04/30/20 18 04/30/2018 CBC MCH 28.8 pg 25.6-3 2.2 Not Available [address], [address], 04/30/2018 14:43:04 04/30/20 18 04/30/2018 CBC MCHC 33.1 g/dL 32.2-3 5.5 Not Available [address], [address], 04/30/2018 14:43:04 04/30/20 18 04/30/2018 CBC plt 290.0 K/? ? ?L 182.0- 369.0 Not Available [address], [address], 04/30/2018 14:43:04 04/30/20 18 04/30/2018 CBC MPV 11.7 9.4-12 .3 Not Available [address], [address], 04/30/2018 14:43:04 04/30/20 18 04/30/2018 CBC neut% 78.8 % 34.0-7 1.1 high Not Available [address], [address], 04/30/2018 14:43:04 04/30/20 18 04/30/2018 CBC neut# 7.0 1.6-6. 1 high Not Available [address], [address], 04/30/2018 14:43:04 04/30/20 18 04/30/2018 CBC lymph % 14.1 % 19.3-5 1.7 low Not Available [address], [address], 04/30/2018 14:43:04 04/30/20 18 04/30/2018 CBC lymph # 1.3 K/? ? ?L 1.2-3. 7 Not Available [address], [address], 04/30/2018 14:43:04 04/30/20 18 04/30/2018 CBC mono% 5.2 % 4.7-12 .5 Not Available [address], [address], 04/30/2018 14:43:04 04/30/20 18 04/30/2018 CBC mono# 0.5 0.2-0. 6 Not Available [address], [address], 04/30/2018 14:43:04 04/30/20 18 04/30/2018 CBC eo% 1.4 % 0.7-5. 8 Not Available [address], [address], 04/30/2018 14:43:04 04/30/20 18 04/30/2018 CBC eo# 0.1 0.0-0. 4 Not Available [address], [address], 04/30/2018 14:43:04 04/30/20 18 04/30/2018 CBC baso% 0.5 % 0.1-1. 2 Not Available [address], [address], 04/30/2018 14:43:04 04/30/20 18 04/30/2018 CBC baso# 0.0 0.0-0. 1 Not Available [address], [address], 04/30/2018 14:43:04 04/30/20 18 04/30/2018 CBC RDW-CV 14.0 % 11.7-1 4.4 Not Available [address], [address], 04/30/2018 14:43:04 04/30/20 18 04/30/2018 TSH, serum or plasm a TSH 2.29 uIU/m L 0.50-6 .00 The Ameri can Colle ge of Endoc rinol ogy and Ameri can Thyro id Assoc iatio n recom mend goal TSH value s betwe en 0.4-4 .0 mIU/m L. Not Available [address], [address], 04/30/2018 16:26:11 06/12/20 18 06/12/2018 CBC w/ auto diff WBC 13.71 K/uL 3.40-1 1.20 high Not Available [facility] [address] [place] [address], [address], 06/12/2018 14:19:14 06/12/20 18 06/12/2018 CBC w/ auto diff RBC 4.19 M/uL 3.80-4 .80 Not Available [facility] [address] [place] [address], [address], 06/12/2018 14:19:14 06/12/20 18 06/12/2018 CBC w/ auto diff HGB 12.0 g/dL 12.0-1 5.0 Not Available [facility]) [address] [place] [address], [address], 06/12/2018 14:19:14 06/12/20 18 06/12/2018 CBC w/ auto diff HCT 35.1 % 36.0-4 6.0 low Not Available [facility]) [address] [place] [address], [address], 06/12/2018 14:19:14 06/12/20 18 06/12/2018 CBC w/ auto diff plt 285 K/uL 130-40 0 Not Available [facility]) [address] [place], [address], 06/12/2018 14:19:14 06/12/20 18 06/12/2018 CBC w/ auto diff MCV 83.8 fL 79.0-9 8.0 Not Available [facility]) [address] [place], [address], 06/12/2018 14:19:14 06/12/20 18 06/12/2018 CBC w/ auto diff MCH 28.6 pg 27.0-3 4.8 Not Available [facility]) [address] [place], [address], 06/12/2018 14:19:14 06/12/20 18 06/12/2018 CBC w/ auto diff MCHC 34.2 g/dL 31.5-3 6.0 Not Available [facility] [address] [place], [address], 06/12/2018 14:19:14 06/12/20 18 06/12/2018 CBC w/ auto diff RDW 13.2 % 10.8-1 4.6 Not Available [facility] [address] [place], [address], 06/12/2018 14:19:14 06/12/20 18 06/12/2018 CBC w/ auto diff MPV 11.6 fL 9.4-12 .4 Not Available [facility] [address] [place], [address], 06/12/2018 14:19:14 06/12/20 18 06/12/2018 CBC w/ auto diff NRBC 0.00 /100_ WBCs 0.00 Not Available [facility] [address] [place], [address], 06/12/2018 14:19:14 06/12/20 18 06/12/2018 CBC w/ auto diff absolute NRBC 0.00 K/uL 0.00 Not Available [facility] [address] [place], [address], 06/12/2018 14:19:14 06/12/20 18 06/12/2018 CBC w/ auto diff diff method Auto Not Available [facility] [address] [place], [address], 06/12/2018 14:19:14 06/12/20 18 06/12/2018 CBC w/ auto diff neuts 84.8 % 45.30- 77.70 high Not Available [facility] [address] [place] [address], [address], 06/12/2018 14:19:14 06/12/20 18 06/12/2018 CBC w/ auto diff lymphs 9.0 % 12.30- 39.70 low Not Available [facility] [address] [place], [address], 06/12/2018 14:19:14 06/12/20 18 06/12/2018 CBC w/ auto diff monos 4.2 % 4.10-1 2.80 Not Available [facility] [address] [place], [address], 06/12/2018 14:19:14 06/12/20 18 06/12/2018 CBC w/ auto diff eos 0.9 % 0-7.2 Not Available [facility] [address] [place], [address], 06/12/2018 14:19:14 06/12/20 18 06/12/2018 CBC w/ auto diff basos 0.7 % 0-2.80 Not Available [facility] [address] [place], [address], 06/12/2018 14:19:14 06/12/20 18 06/12/2018 CBC w/ auto diff granulocytes , immature (%) 0.4 % 0.0-0. 9 Not Available [facility] [address] [place], [address], 06/12/2018 14:19:14 06/12/20 18 06/12/2018 CBC w/ auto diff absolute neuts 11.63 K/uL 1.40-7 .70 high Not Available [facility]) [address] [place], [address], 06/12/2018 14:19:14 06/12/20 18 06/12/2018 CBC w/ auto diff absolute lymphs 1.24 K/uL 0.60-3 .20 Not Available [facility] [address] [place] [address], [address], 06/12/2018 14:19:14 06/12/20 18 06/12/2018 CBC w/ auto diff absolute monos 0.57 K/uL 0.11-0 .59 Not Available [facility]) [address] [place] [address], [address], 06/12/2018 14:19:14 06/12/20 18 06/12/2018 CBC w/ auto diff absolute eos 0.13 K/uL 0.01-0 .50 Not Available [facility]) [address] [place] [address], [address], 06/12/2018 14:19:14 06/12/20 18 06/12/2018 CBC w/ auto diff absolute basos 0.09 K/uL 0.00-0 .08 high Not Available [facility]) [address] [place] [address], [address], 06/12/2018 14:19:14 06/12/20 18 06/12/2018 CBC w/ auto diff granulocytes , immature 0.05 K/uL 0.00-0 .05 Not Available [facility] [address] [place], [address], 06/12/2018 14:19:14 06/12/20 18 06/12/2018 CMP, serum or plasm a sodium 139 mmol/ L 133-14 6 Not Available [facility] [address] [place], [address], 06/12/2018 15:13:28 06/12/20 18 06/12/2018 CMP, serum or plasm a potassium 4.6 mmol/ L 3.3-5. 1 Not Available [facility] [address] [place] [address], [address], 06/12/2018 15:13:28 06/12/20 18 06/12/2018 CMP, serum or plasm a chloride 99 mmol/ L 96-108 Not Available [facility] [address] [place] [address], [address], 06/12/2018 15:13:28 06/12/20 18 06/12/2018 CMP, serum or plasm a CO2 28 mmol/ L 21-35 Not Available [facility] [address] [place], [address], 06/12/2018 15:13:28 06/12/20 18 06/12/2018 CMP, serum or plasm a BUN 22 mg/dL 6-19 high Not Available [facility] [address] [place], [address], 06/12/2018 15:13:28 06/12/20 18 06/12/2018 CMP, serum or plasm a creatinine 0.90 mg/dL 0.5-1. 5 Not Available [facility] [address] [place], [address], 06/12/2018 15:13:28 06/12/20 18 06/12/2018 CMP, serum or plasm a glucose 104 mg/dL 70-99 high Not Available [facility] [address] [place], [address], 06/12/2018 15:13:28 06/12/20 18 06/12/2018 CMP, serum or plasm a albumin 4.4 g/dL 3.9-4. 8 Not Available [facility] [address] [place], [address], 06/12/2018 15:13:28 06/12/20 18 06/12/2018 CMP, serum or plasm a total protein 6.9 g/dL 6.5-8. 0 Not Available [facility] [address] [place], [address], 06/12/2018 15:13:28 06/12/20 18 06/12/2018 CMP, serum or plasm a calcium 9.3 mg/dL 8.4-10 .3 Not Available [facility] [address] [place], [address], 06/12/2018 15:13:28 06/12/20 18 06/12/2018 CMP, serum or plasm a alkaline phosphatase 82 U/L 39-117 Not Available [facility] [address] [place], [address], 06/12/2018 15:13:28 06/12/20 18 06/12/2018 CMP, serum or plasm a total bilirubin 0.4 mg/dL 0.0-1. 2 Not Available [facility] [address] [place], [address], 06/12/2018 15:13:28 06/12/20 18 06/12/2018 CMP, serum or plasm a AST 16 U/L 0-37 Not Available [facility] [address] [place], [address], 06/12/2018 15:13:28 06/12/20 18 06/12/2018 CMP, serum or plasm a ALT 18 U/L 0-40 Not Available [facility] [address] [place], [address], 06/12/2018 15:13:28 06/12/20 18 06/12/2018 CMP, serum or plasm a globulin 2.5 g/dL 1-4.8 Not Available [facility] [address] [place] [address], [address], 06/12/2018 15:13:28 06/12/20 18 06/12/2018 CMP, serum or plasm a eGFR 66 mL/mi n/1.7 3m2 >59 If patie nt is black , multi ply resul t by 1.159 . Estim ated glome rular filtr ation rate calcu lated using the CKD-E PI equat ion. Not Available [facility] [address] [place] [address], [address], 06/12/2018 15:13:28 06/12/20 18 06/12/2018 CMP, serum or plasm a anion gap 17 mmol/ L 10-20 Not Available [facility] [address] [place] [address], [address], 06/12/2018 15:13:28 06/12/20 18 06/12/2018 C-andra ctive prote in, quant itati ve, serum or plasm a C reactive protein 3.3 mg/L 0.0-4. 0 Not Available [facility] [address] [place], [address], 06/12/2018 15:13:30 06/12/20 18 06/13/2018 HBsAg (hepa titis B surfa ce Ag), serum HBV surface antigen Negati ve negati ve Not Available [facility] [address] [place] [address], [address], 06/13/2018 10:03:22 06/12/20 18 06/13/2018 hepat itis B virus core Ab, quali tativ e, serum hep B core Ab, tot Negati ve negati ve Not Available [facility]) [address] [place] [address], [address], 06/13/2018 10:03:24 06/12/20 18 06/14/2018 tb (M [...] in Adult s and Child eddie [Aneudy PENA et. al. Clin. Infec t. Dis. 2017; 64(2) :111- 115]. The refer ence range for the 'TB1 Ag minus Nil Resul t' and 'TB2 Ag minus Nil Resul t' is an Inter feron -gamm a level <0.35 IU/mL . Not Available [facility] [address] [place], [address], 06/14/2018 19:02:21 06/12/20 18 06/14/2018 tb (M tuber culos is), ifn-g deonte sai , blood TB1 Ag minus nil 0.11 IU/mL Not Available [facility]) [address] [place] [address], [address], 06/14/2018 19:02:21 06/12/20 18 06/14/2018 tb (M tuber culos is), ifn-g deonte sai , blood TB2 Ag minus nil 0.00 IU/mL Not Available [facility]) [address] [place], [address], 06/14/2018 19:02:21 06/12/20 18 06/14/2018 tb (M tuber culos is), ifn-g deonte sai , blood mitogen minus nil 2.75 IU/mL Not Available [facility] ([facility]) [address] [place] [address], [address], 06/14/2018 19:02:21 06/12/20 18 06/14/2018 tb (M tuber culos is), ifn-g deonte sai , blood nil result 0.01 IU/mL Not Available [facility]) [address] [place] [address], [address], 06/14/2018 19:02:21 10/18/19 19 10/17/2018 CBC w/ auto diff WBC 10.03 K/uL 3.40-1 1.20 Not Available [facility]) [address] [place] [address], [address], 10/17/2018 15:41:19 10/18/19 19 10/17/2018 CBC w/ auto diff RBC 4.02 M/uL 3.80-4 .80 Not Available [facility]) [address] [place] [address], [address], 10/17/2018 15:41:19 10/18/19 19 10/17/2018 CBC w/ auto diff HGB 11.9 g/dL 12.0-1 5.0 low Not Available [facility]) [address] [place] [address], [address], 10/17/2018 15:41:19 10/18/19 19 10/17/2018 CBC w/ auto diff HCT 35.2 % 36.0-4 6.0 low Not Available [facility]) [address] [place] [address], [address], 10/17/2018 15:41:19 10/18/19 19 10/17/2018 CBC w/ auto diff plt 236 K/uL 130-40 0 Not Available [facility] [address] [place], [address], 10/17/2018 15:41:19 10/18/19 19 10/17/2018 CBC w/ auto diff MCV 87.6 fL 79.0-9 8.0 Not Available [facility] [address] [place], [address], 10/17/2018 15:41:19 10/18/19 19 10/17/2018 CBC w/ auto diff MCH 29.6 pg 27.0-3 4.8 Not Available [facility] [address] [place], [address], 10/17/2018 15:41:19 10/18/19 19 10/17/2018 CBC w/ auto diff MCHC 33.8 g/dL 31.5-3 6.0 Not Available [facility] [address] [place], [address], 10/17/2018 15:41:19 10/18/1910/17/2018 CBC w/ auto diff RDW 12.9 % 10.8-1 4.6 Not Available [facility] [address] [place], [address], 10/17/2018 15:41:19 10/18/1910/17/2018 CBC w/ auto diff MPV 11.0 fL 9.4-12 .4 Not Available [facility] [address] [place], [address], 10/17/2018 15:41:19 10/18/1910/17/2018 CBC w/ auto diff NRBC 0.00 /100_ WBCs 0.00 Not Available [facility] [address] [place], [address], 10/17/2018 15:41:19 10/18/19 19 10/17/2018 CBC w/ auto diff absolute NRBC 0.00 K/uL 0.00 Not Available [facility] [address] [place], [address], 10/17/2018 15:41:19 10/18/19 19 10/17/2018 CBC w/ auto diff diff method Auto Not Available [facility] [address] [place], [address], 10/17/2018 15:41:19 10/18/19 19 10/17/2018 CBC w/ auto diff neuts 70.1 % 45.30- 77.70 Not Available [facility] [address] [place], [address], 10/17/2018 15:41:19 10/18/19 19 10/17/2018 CBC w/ auto diff lymphs 18.2 % 12.30- 39.70 Not Available [facility] [address] [place], [address], 10/17/2018 15:41:19 10/18/19 19 10/17/2018 CBC w/ auto diff monos 7.4 % 4.10-1 2.80 Not Available [facility] [address] [place], [address], 10/17/2018 15:41:19 10/18/19 19 10/17/2018 CBC w/ auto diff eos 2.8 % 0-7.2 Not Available [facility] [address] [place], [address], 10/17/2018 15:41:19 10/18/19 19 10/17/2018 CBC w/ auto diff basos 1.1 % 0-2.80 Not Available [facility] [address] [place], [address], 10/17/2018 15:41:19 10/18/19 19 10/17/2018 CBC w/ auto diff granulocytes , immature (%) 0.4 % 0.0-0. 9 Not Available [facility] [address] [place], [address], 10/17/2018 15:41:19 10/18/19 19 10/17/2018 CBC w/ auto diff absolute neuts 7.03 K/uL 1.40-7 .70 Not Available [facility] ([facility]) [address] [place], [address], 10/17/2018 15:41:19 10/18/19 19 10/17/2018 CBC w/ auto diff absolute lymphs 1.83 K/uL 0.60-3 .20 Not Available [facility] ([facility]) [address] [place], [address], 10/17/2018 15:41:19 10/18/19 19 10/17/2018 CBC w/ auto diff absolute monos 0.74 K/uL 0.11-0 .59 high Not Available [facility] [address] [place], [address], 10/17/2018 15:41:19 10/18/19 19 10/17/2018 CBC w/ auto diff absolute eos 0.28 K/uL 0.01-0 .50 Not Available [facility] ([facility] [address] [place], [address], 10/17/2018 15:41:19 10/18/19 19 10/17/2018 CBC w/ auto diff absolute basos 0.11 K/uL 0.00-0 .08 high Not Available [facility] (Outpatient) [address] [place] [address], [address], 10/17/2018 15:41:19 10/18/19 19 10/17/2018 CBC w/ auto diff granulocytes , immature 0.04 K/uL 0.00-0 .05 Not Available [facility] (Outpatient) [address] [place], [address], 10/17/2018 15:41:19 10/18/19 19 10/17/2018 eryth rocyt e sedim entat ion rate by prema gonzalez d ESR 5 mm/h 0-30 Not Available [facility] (Outpatient) [address] [place], [address], 10/17/2018 16:22:09 10/18/19 19 10/17/2018 CMP, serum or plasm a sodium 143 mmol/ L 133-14 6 Not Available [facility] (Outpatient) [address] [place], [address], 10/17/2018 16:48:20 10/18/19 19 10/17/2018 CMP, serum or plasm a potassium 4.3 mmol/ L 3.3-5. 1 Not Available [facility] (Outpatient) [address] [place], [address], 10/17/2018 16:48:20 10/18/19 19 10/17/2018 CMP, serum or plasm a chloride 104 mmol/ L 96-108 Not Available [facility] (Outpatient) [address] [place], [address], 10/17/2018 16:48:20 10/18/19 19 10/17/2018 CMP, serum or plasm a CO2 26 mmol/ L 21-35 Not Available [facility] (Out[facility]) [address] [place], [address], 10/17/2018 16:48:20 10/18/19 19 10/17/2018 CMP, serum or plasm a BUN 28 mg/dL 6-19 high Not Available [facility] ([facility]) [address] [place], [address], 10/17/2018 16:48:20 10/18/19 19 10/17/2018 CMP, serum or plasm a creatinine 1.00 mg/dL 0.5-1. 5 Not Available [facility] (Out[facility]) [address] [place], [address], 10/17/2018 16:48:20 10/18/19 19 10/17/2018 CMP, serum or plasm a glucose 127 mg/dL 70-99 high Not Available [facility] (Outpatient) [address] [place], [address], 10/17/2018 16:48:20 10/18/19 19 10/17/2018 CMP, serum or plasm a albumin 4.3 g/dL 3.9-4. 8 Not Available [facility] ([facility] [address] [place], [address], 10/17/2018 16:48:20 10/18/19 19 10/17/2018 CMP, serum or plasm a total protein 6.9 g/dL 6.5-8. 0 Not Available [facility] ([facility] [address] [place], [address], 10/17/2018 16:48:20 10/18/19 19 10/17/2018 CMP, serum or plasm a calcium 9.5 mg/dL 8.4-10 .3 Not Available [facility] [address] [place], [address], 10/17/2018 16:48:20 10/18/19 19 10/17/2018 CMP, serum or plasm a alkaline phosphatase 74 U/L 39-117 Not Available [facility] (Outpatient) [address] [place], [address], 10/17/2018 16:48:20 10/18/19 19 10/17/2018 CMP, serum or plasm a total bilirubin 0.3 mg/dL 0.0-1. 2 Not Available [facility] (Outpatient) [address] [place], [address], 10/17/2018 16:48:20 10/18/19 19 10/17/2018 CMP, serum or plasm a AST 19 U/L 0-37 Not Available [facility] (Out[facility]) [address] [place], [address], 10/17/2018 16:48:20 10/18/19 19 10/17/2018 CMP, serum or plasm a ALT 17 U/L 0-40 Not Available [facility] (Out[facility]) [address] [place], [address], 10/17/2018 16:48:20 10/18/19 19 10/17/2018 CMP, serum or plasm a globulin 2.6 g/dL 1-4.8 Not Available [facility] (Out[facility]) [address] [place] [address], [address], 10/17/2018 16:48:20 10/18/19 19 10/17/2018 CMP, serum or plasm a eGFR 58 mL/mi n/1.7 3m2 >59 low If patie nt is black , multi ply resul t by 1.159 . Estim ated glome rular filtr ation rate calcu lated using the CKD-E PI equat ion. Not Available [facility] (Out[facility]) [address] [place] [address], [address], 10/17/2018 16:48:20 10/18/19 19 10/17/2018 CMP, serum or plasm a anion gap 17 mmol/ L 10-20 Not Available [facility] ([facility]) [address] [place] [address], [address], 10/17/2018 16:48:20 10/18/19 19 10/17/2018 C-andra ctive prote in, quant itati ve, serum or plasm a C reactive protein 6.2 mg/L 0.0-4. 0 high Not Available [facility] (Out[facility]) [address] [place], [address], 10/17/2018 16:48:21 01/17/20 19 01/16/2019 CBC w/ auto diff WBC 10.98 K/uL 3.40-1 1.20 Not Available [facility] [address] [place], [address], 01/16/2019 16:23:22 01/17/20 19 01/16/2019 CBC w/ auto diff RBC 4.04 M/uL 3.80-4 .80 Not Available [facility] [address] [place], [address], 01/16/2019 16:23:22 01/17/20 19 01/16/2019 CBC w/ auto diff HGB 11.9 g/dL 12.0-1 5.0 low Not Available [facility] ([facility]) [address] [place], [address], 01/16/2019 16:23:22 01/17/20 19 01/16/2019 CBC w/ auto diff HCT 35.3 % 36.0-4 6.0 low Not Available [facility] [address] [place], [address], 01/16/2019 16:23:22 01/17/20 19 01/16/2019 CBC w/ auto diff plt 274 K/uL 130-40 0 Not Available [facility] ([facility]) [address] [place], [address], 01/16/2019 16:23:22 01/17/20 19 01/16/2019 CBC w/ auto diff MCV 87.4 fL 79.0-9 8.0 Not Available [facility]) [address] [place], [address], 01/16/2019 16:23:22 01/17/20 19 01/16/2019 CBC w/ auto diff MCH 29.5 pg 27.0-3 4.8 Not Available [facility] ([facility]) [address] [place], [address], 01/16/2019 16:23:22 01/17/20 19 01/16/2019 CBC w/ auto diff MCHC 33.7 g/dL 31.5-3 6.0 Not Available [facility] [address] [place], [address], 01/16/2019 16:23:22 01/17/20 19 01/16/2019 CBC w/ auto diff RDW 13.3 % 10.8-1 4.6 Not Available [facility] [address] [place], [address], 01/16/2019 16:23:22 01/17/20 19 01/16/2019 CBC w/ auto diff MPV 11.7 fL 9.4-12 .4 Not Available [facility] [address] [place], [address], 01/16/2019 16:23:22 01/17/20 19 01/16/2019 CBC w/ auto diff NRBC 0.00 /100_ WBCs 0.00 Not Available [facility] [address] [place], [address], 01/16/2019 16:23:22 01/17/20 19 01/16/2019 CBC w/ auto diff absolute NRBC 0.00 K/uL 0.00 Not Available [facility]) [address] [place], [address], 01/16/2019 16:23:22 01/17/20 19 01/16/2019 CBC w/ auto diff diff method Auto Not Available [facility] [address] [place], [address], 01/16/2019 16:23:22 01/17/20 19 01/16/2019 CBC w/ auto diff neuts 81.4 % 45.30- 77.70 high Not Available [facility]) [address] [place], [address], 01/16/2019 16:23:22 01/17/20 19 01/16/2019 CBC w/ auto diff lymphs 10.6 % 12.30- 39.70 low Not Available [facility]) [address] [place] [address], [address], 01/16/2019 16:23:22 01/17/20 19 01/16/2019 CBC w/ auto diff monos 4.7 % 4.10-1 2.80 Not Available [facility]) [address] [place] [address], [address], 01/16/2019 16:23:22 01/17/20 19 01/16/2019 CBC w/ auto diff eos 2.0 % 0-7.2 Not Available [facility]) [address] [place] [address], [address], 01/16/2019 16:23:22 01/17/20 19 01/16/2019 CBC w/ auto diff basos 1.0 % 0-2.80 Not Available [facility]) [address] [place] [address], [address], 01/16/2019 16:23:22 01/17/20 19 01/16/2019 CBC w/ auto diff granulocytes , immature (%) 0.3 % 0.0-0. 9 Not Available [facility] ([facility]) [address] [place] [address], [address], 01/16/2019 16:23:22 01/17/20 19 01/16/2019 CBC w/ auto diff absolute neuts 8.94 K/uL 1.40-7 .70 high Not Available [facility] (Out[facility]) [address] [place] [address], [address], 01/16/2019 16:23:22 01/17/20 19 01/16/2019 CBC w/ auto diff absolute lymphs 1.16 K/uL 0.60-3 .20 Not Available [facility] ([facility]) [address] [place] [address], [address], 01/16/2019 16:23:22 01/17/20 19 01/16/2019 CBC w/ auto diff absolute monos 0.52 K/uL 0.11-0 .59 Not Available [facility] (Out[facility]) [address] [place], [address], 01/16/2019 16:23:22 01/17/20 19 01/16/2019 CBC w/ auto diff absolute eos 0.22 K/uL 0.01-0 .50 Not Available [facility] ([facility]) [address] [place], [address], 01/16/2019 16:23:22 01/17/20 19 01/16/2019 CBC w/ auto diff absolute basos 0.11 K/uL 0.00-0 .08 high Not Available [facility] (Outpatient) [address] [place], [address], 01/16/2019 16:23:22 01/17/20 19 01/16/2019 CBC w/ auto diff granulocytes , immature 0.03 K/uL 0.00-0 .05 Not Available [facility] ([facility]) [address] [place], [address], 01/16/2019 16:23:22 01/17/20 19 01/16/2019 eryth rocyt e sedim entat ion rate by prema sanchezo d ESR 9 mm/h 0-30 Not Available [facility] (Out[facility]) [address] [place], [address], 01/16/2019 17:39:50 01/17/20 19 01/16/2019 C-andra ctive prote in, quant itati ve, serum or plasm a C reactive protein 5.2 mg/L 0.0-4. 0 high Not Available [facility] (Outpatient) [address] [place], [address], 01/16/2019 18:50:56 01/17/20 19 01/16/2019 CMP, serum or plasm a sodium 141 mmol/ L 133-14 6 Not Available [facility] (Out[facility]) [address] [place], [address], 01/16/2019 22:11:00 01/17/20 19 01/16/2019 CMP, serum or plasm a potassium 4.4 mmol/ L 3.3-5. 1 Not Available [facility] (Outpatient) [address] [place], [address], 01/16/2019 22:11:00 01/17/20 19 01/16/2019 CMP, serum or plasm a chloride 102 mmol/ L 96-108 Not Available [facility] (Out[facility]) [address] [place], [address], 01/16/2019 22:11:00 01/17/20 19 01/16/2019 CMP, serum or plasm a CO2 23 mmol/ L 21-35 Not Available [facility] (Out[facility]) [address] [place], [address], 01/16/2019 22:11:00 01/17/2001/16/2019 CMP, serum or plasm a BUN 23 mg/dL 6-19 high Not Available [facility] (Outpatient) [address] [place], [address], 01/16/2019 22:11:00 01/17/2001/16/2019 CMP, serum or plasm a creatinine 1.50 mg/dL 0.5-1. 5 Not Available [facility] (Outpatient) [address] [place], [address], 01/16/2019 22:11:00 01/17/2001/16/2019 CMP, serum or plasm a glucose 161 mg/dL 70-99 high Not Available [facility] (Out[facility]) [address] [place], [address], 01/16/2019 22:11:00 01/17/2001/16/2019 CMP, serum or plasm a albumin 4.0 g/dL 3.9-4. 8 Not Available [facility] ([facility]) [address] [place], [address], 01/16/2019 22:11:00 01/17/20 19 01/16/2019 CMP, serum or plasm a total protein 6.8 g/dL 6.5-8. 0 Not Available [facility] (Outpatient) [address] [place], [address], 01/16/2019 22:11:00 01/17/20 19 01/16/2019 CMP, serum or plasm a calcium 9.0 mg/dL 8.4-10 .3 Not Available [facility] (Outpatient) [address] [place], [address], 01/16/2019 22:11:00 01/17/20 19 01/16/2019 CMP, serum or plasm a alkaline phosphatase 78 U/L 39-117 Not Available [facility] (Outpatient) [address] [place], [address], 01/16/2019 22:11:00 01/17/20 19 01/16/2019 CMP, serum or plasm a total bilirubin 0.4 mg/dL 0.0-1. 2 Not Available [facility] (Outpatient) [address] [place], [address], 01/16/2019 22:11:00 01/17/20 19 01/16/2019 CMP, serum or plasm a AST 21 U/L 0-37 Not Available [facility] (Out[facility]) [address] [place], [address], 01/16/2019 22:11:00 01/17/20 19 01/16/2019 CMP, serum or plasm a ALT 19 U/L 0-40 Not Available [facility] (Outpatient) [address] [place], [address], 01/16/2019 22:11:00 01/17/20 01/16/2019 CMP, serum or plasm a globulin 2.8 g/dL 1-4.8 Not Available [facility] (Outpatient) [address] [place], [address], 01/16/2019 22:11:00 01/17/20 19 01/16/2019 CMP, serum or plasm a eGFR 35 mL/mi n/1.7 3m2 >59 low If patie nt is black , multi ply resul t by 1.159 . Estim ated glome rular filtr ation rate calcu lated using the CKD-E PI equat ion. Not Available [facility] (Outpatient) [address] [place], [address], 01/16/2019 22:11:00 01/17/20 19 01/16/2019 CMP, serum or plasm a anion gap 20 mmol/ L 10-20 Not Available [facility] (Outpatient) [address] [place], [address], 01/16/2019 22:11:00 06/12/20 18 06/12/2018 xr chest [...] MD Final result [facility] [address] [place], [address], 06/12/2018 20:56:35 09/07/19 19 09/06/2018 bd dxa [...] BOARDW S11 Electr onical ly Signed by: ARCHEL JANE on 019 3:21 PM Interp reted by: Rachel Jane MD Signed by: Rachel Jane MD 9 Final result NATALIE Kaur [facility] [address] [facility], [place], [address], 09/08/2018 18:43:16 Result Notes None recorded. 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 033015704 Active 2017 admitted to [place]; l[facility] 11/2017 Natalie Reveles MD [address] [place] [address] Betty Hernán[place], [address], [facility] 8 20:36:49 Gastroes ophageal reflux disease 059086781 [facility] 15:48:05 Mixed hyperlip idemia 864915456 Active 2001 Natalie Reveles MD [address] [place] [address] Betty Hernán[place], [address], [facility] 6 12:19:12 Colitis, enteriti s and gastroen teritis presumed infectio us 740518939 Completed 200611/06/2009 Natalie Reveles MD [address] [place] [address] Betty Hernán[place], [address], [facility] 6 15:03:24 Nausea 501518644 Completed 200611/06/2009 Natalie Reveles MD [address] [place] [address] Betty Hernán[place], [address], [facility] 6 15:03:24 Essentia l hyperten olya 42482528 Completed 200311/06/2009 Natalie Reveles MD [address] [place] [address] Betty Hernán[place], [address], [facility] 6 15:03:24 Nausea and vomiting 88301201 Completed 200611/06/2009 Natalie Reveles MD [address] [place] [address] Betty Hernán[place], [address], [facility] 6 15:03:24 Cellulit is and abscess of buttock 825916626 Completed 200011/06/2009 Natalie Reveles MD [address] [place] [address] Betty Hernán[place], [address], [facility] 6 15:03:24 Urinary tract infectio us disease 86950800 Completed 200711/06/2009 Natalie Reveles MD [address] [place] [address] Betty Hernán[place], [address], [facility] 6 15:03:24 Benign essentia l hyperten olya 3106334 Active 2001 Natalie Reveles MD [address] [place] [address] Betty Hernán[place], [address], [facility] 6 12:19:12 Acute cystitis 82761243 Completed 200411/06/2009 Natalie Reveles MD [address] [place] [address] Betty Hernán[place], [address], [facility] 6 15:03:24 Acute pain 101080816 Completed 200711/06/2009 Natalie Reveles MD [address] [place] [address] Betty Hernán[place], [address], [facility] 6 15:03:24 Allergic rhinitis 60245765 Completed 200511/06/2009 Natalie Reveles MD [address] [place] [address] Betty Hernán[place], [address], [facility] 6 15:03:24 Osteoart hritis 940298821 Completed 200711/06/2009 Natalie Reveles MD [address] [place] [address] Betty Hernán[place], [address], [facility] 6 15:03:24 Sciatica 66639039 Active 2007 spinal stenosis Natalie Reveles MD [address] [place] [address] Betty Hernán[place], [address], [facility] 6 15:03:24 Diabetic on insulin 792553640 Active Natalie Reveles MD [address] [place] [address] Betty Hernán[place], [address], [facility] 6 12:19:12 Type 2 diabetes 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 complica tion 712353590 Active 2004 Natalie Reveles MD [address] [place] [address] Betty Hernán[place], [address], [facility] 6 12:19:12 Anemia 462877278 Completed 200611/06/2009 Natalie Reveles MD [address] [place] [address] Betty Hernán[place], [address], [facility] 6 15:03:24 Acute maxillar y sinusiti s 79050405 Completed 200311/06/2009 Natalie Reveles MD [address] [place] [address] Betty Hernán[place], [address], [facility] 6 15:03:24 Arteriti s 94126426 Completed 200511/06/2009 Natalie Reveles MD [address] [place] [address] Betty Hernán[place], [address], [facility] 6 15:03:24 Uncontro lled type 2 diabetes mellitus 833003872 Completed 200606/12/2013 Natalie Reveles MD [address] [place] [address] Betty Hernán[place], [address], [facility] 6 15:03:24 Degenera tive joint disease involvin g multiple joints 855454345 Completed 200006/12/2013 Natalie Reveles MD [address] [place] [address] Betty Hernán[place], [address], [facility] 6 15:03:24 Hyperlip idemia 91188167 Completed 200111/06/2009 Natalie Reveles MD [address] [place] [address] Betty Hernán[place], [address], [facility] 6 15:03:24 Backache 086705953 Completed 200711/06/2009 Natalie Reveles MD [address] [place] [address] Betty Hernán[place], [address], [facility] 6 15:03:24 Malaise and fatigue 321974659 Completed 200111/06/2009 Natalie Reveles MD [address] [place] [address] Betty Hernán[place], [address], [facility] 6 15:03:24 Contact dermatit is 54704292 Completed 11/06/2009 Natalie Reveles MD [address] [place] [address] Betty Hernán[place], [address], [facility] 6 15:03:24 Cough 20502665 Completed 200411/06/2009 Natalie Reveles MD [address] [place] [address] Betty Hernán[place], [address], [facility] 6 15:03:24 Rheumato id arthriti s 27095539 Active sero-nega tive Natalie Reveles MD [address] [place] [address] Betty Hernán[place], [address], [facility] 6 12:19:12 Fever 452966762 Completed 200611/06/2009 Natalie Reveles MD [address] [place] [address] Betty Hernán[place], [address], [facility] 6 15:03:24 Allergic asthma without status asthmati cus 80798436 Active 2002 Natalie Reveles MD [address] [place] [address] Betty Hernán[place], [address], [facility] 6 15:03:24 Acute sinusiti s 68496300 Completed 05/14/2013 Natalie Reveles MD [address] [place], [place] [address], [address], [facility] 6 15:03:24 Common cold 19958780 Completed 200211/06/2009 Natalie Reveles MD [address] [place], [place] [address], [address], [facility] 6 15:03:24 Common cold 42338070 Completed 05/14/2013 Natalie Reveles MD [address] [place] [address] Betty Hernán[place], [address], [facility] 6 15:03:24 On examinat ion - a rash Completed 200511/06/2009 Natalie Reveles MD [address] [place], [place] [address], [address], [facility] 6 15:03:24 General symptom 145363675 Completed 200611/06/2009 Natalie Reveles MD [address] [place], [place] [address], [address], [facility] 6 15:03:24 Blood chemistr y outside referenc e range 314784656 Completed 200311/06/2009 Natalie Reveles MD [address] [place], [place] [address], [address], [facility] 6 15:03:24 Hypothyr oidism 42979027 Completed 200607/22/2015 Natalie Reveles MD [address] [place], [place] [address], [address], [facility] 6 15:03:24 Mononeur itis 92639597 Active 2003 Natalie Reveles MD [address] [place], [place] [address], [address], [facility] 6 15:03:24 Primary fibromya lgia syndrome 86672507 Completed 200211/06/2009 Natalie Reveles MD [address] [place], [place] [address], [address], [facility] 6 15:03:24 Vaginiti s and vulvovag initis Completed 200011/06/2009 Natalie Reveles MD [address] [place], [place] [address], [address], [facility] 6 15:03:24 Problem Notes None recorded. Procedures Surgical History Date Name Laterality Status Provider Name and Address Organization Details Recorded Time 9 Medicare Wellness Visit completed Sarah Jewell MA [facility] 12/31/2018 14:43:15 8 Medicare Wellness Visit completed Liz Boyce CMA [facility] 12/27/2017 15:09:17 8 Post hospital/SNF follow-up/[facility] sitional Care completed Liz Boyce CMA [facility] 11/13/2017 14:14:12 8 Nebulizer Tx completed Karmen White LPN [facility] 08/02/2017 14:24:48 7 Medicare Wellness Visit completed Mary Finley MA [facility] 12/25/2016 09:27:15 Imaging Results Imaging Date Name Status LastModified by Organiz ation Details LastModified Time 06/12/2018 xr chest Pa and lateral 2 views completed [facility] [address] [place], [address], 06/12/2018 20:56:35 09/06/2018 bd dxa axial (spine) with hip completed [facility] [address] [place], [address], 09/08/2018 18:43:16 Procedure Notes None recorded. Medical Equipment None Reported. Allergies Allergen ID Allergen Name Allergen Category Reaction Reaction Severity Criticality Documentation Date Start Date Code Code System Note Provider Name and Address Organization Details Recorded Time 045479 doxycycli ne Not available nausea Not available Not available 11/27/2013 3640 RxNorm Kacey Espinoza MA [facility] 4 10:10:57 995303 codeine medicatio n nausea Not available Not available 08/17/2015 2670 RxNorm Angelica Hicks CMA [facility] 6 16:23:36 85513 Substance with sulfonami de structure and antibacte rial mechanism of action (substanc e) medicatio n hives Not available Not available 06/29/2010 59277 8003 SNOMED Not Available [facility] 1 06:05:41 Medications Name Sig Start Date [...] Available No t Available naproxen 375 mg tablet active 1 BiD Not Available Not [...] Available Not Available No t Available OneTouch Ultra Test strips USE TO TEST 3-4 [...] EVERY DAY AT BEDTIME 11/13 completed per [facility] d/c 11/08/17 new dose as follows: 600 [...] bw done 07/07/08 PHA 11/05/07- exsistin g tickler for 2008 pha Not Available Not Available [...] e Phil[place] Pen Needle 32 gauge x /32 USE TO INJECT INSULIN QID active Not Available Not Available No t Available Rasuvo (PF) 20 mg/0.4 mL subcutane ous auto-inje ctor Inject 0.4 mL every week by subcutan eous route. 12/25 completed Not Available Not Available Not Available OneTouch Ultra Blue Test Strip USE TO TEST BLOOD SUGAR QID active Not Available Not Available No t Available Vitals Date Recorded Body height Provider Name an d Address Organization Details Last Updated DateTime 04/30/2018 147.95 cm Sarah Jewell MA [facility] 04/30/2018 10:43:22 Date Recorded Body mass index (BMI) Body weight Provider Name and Address Organization Details Last Updated DateTime 04/30/2018 35.9 kg/m2 52724.18 g Sarah Jewell MA [facility] 04/30/2018 10:46:12 Date Recorded Heart rate Provider Name an d Address Organization Details Last Updated DateTime 04/30/2018 80 /min Sarah Jewell MA [facility] 04/30/2018 10:51:16 Date Recorded Oxygen saturation Oxygen saturation in Arterial blood by Pulse oximetry Provider Name and Address Organization Details Last Updated DateTime 04/30/2018 97 % 97 % Sarah Jewell MA [facility] 04/30/2018 10:51:21 Date Recorded Body height Provider Name an d Address Organization Details Last Updated DateTime 08/29/2018 147.95 cm Marcia Baron MA [facility] 08/29/2018 11:20:15 Date Recorded Body mass index (BMI) Body weight Provider Name and Address Organization Details Last Updated DateTime 08/29/2018 35.7 kg/m2 48560.69 g Marcia Baron MA [facility] 08/29/2018 11:20:25 Date Recorded Heart rate Provider Name an d Address Organization Details Last Updated DateTime 08/29/2018 64 /min Marcia Schaeferhi [facility] 08/29/2018 11:25:28 Date Recorded Body height Provider Name an d Address Organization Details Last Updated DateTime 12/31/2018 147.95 cm Sarah Jewell MA [facility] 12/31/2018 14:43:32 Date Recorded Body mass index (BMI) Body weight Provider Name and Address Organization Details Last Updated DateTime 12/31/2018 36.3 kg/m2 04362.76 g Sarahsa NationabdonLISANDRO [facility] 12/31/2018 14:47:13 Date Recorded Oxygen saturation Oxygen saturation in Arterial blood by Pulse oximetry Provider Name and Address Organization Details Last Updated DateTime 12/31/2018 96 % 96 % Sarah ChapisabdonLISANDRO [facility] 12/31/2018 14:52:40 Date Recorded Heart rate Provider Name an d Address Organization Details Last Updated DateTime 12/31/2018 76 /min Sarahsa Best MA [facility] 12/31/2018 14:53:41 Date Recorded Body height Provider Name an d Address Organization Details Last Updated DateTime 02/20/2019 147.95 cm Brooks Seals [facility] 02/20/2019 09:35:40 Date Recorded Body mass index (BMI) Body weight Provider Name and Address Organization Details Last Updated DateTime 02/20/2019 35.9 kg/m2 54369.58 g [facility] 02/20/2019 09:35:57 Date Recorded Body temperature Provider Name a nd Address Organization Details Last Updated DateTime 02/20/2019 97.9 [degF] [facility] 02/20/2019 09:42:36 Date Recorded Heart rate Provider Name an d Address Organization Details Last Updated DateTime 02/20/2019 88 /min [facility] 02/20/2019 09:43:05 Date Recorded Oxygen saturation Oxygen saturation in Arterial blood by Pulse oximetry Provider Name and Address Organization Details Last Updated DateTime 02/20/2019 96 % 96 % [facility] 02/20/2019 09:47:05 Date Recorded Systolic blood pressure Diastolic blood pressure Provider Name and Address Organization Details Last Updated DateTime 04/30/2018 126 mm[Hg] 74 mm[Hg] Sarahsa Jewell [facility] 04/30/2018 10:50:58 Date Recorded Systolic blood pressure Diastolic blood pressure Provider Name and Address Organization Details Last Updated DateTime 08/29/2018 90 mm[Hg] 54 mm[Hg] Marcia Baron [facility] 08/29/2018 11:24:40 Date Recorded Systolic blood pressure Diastolic blood pressure Provider Name and Address Organization Details Last Updated DateTime 12/31/2018 120 mm[Hg] 62 mm[Hg] Sarahkwasi Jewell [facility] 12/31/2018 14:52:36 Date Recorded Systolic blood pressure Diastolic blood pressure Provider Name and Address Organization Details Last Updated DateTime 12/31/2018 120 mm[Hg] 60 mm[Hg] Kassie Reynolds [facility] 12/31/2018 15:58:11 Date Recorded Systolic blood pressure Diastolic blood pressure Provider Name and Address Organization Details Last Updated DateTime 12/31/2018 120 mm[Hg] 60 mm[Hg] [facility] 12/[facility] 15:58:43 Date Recorded Systolic blood pressure Diastolic blood pressure Provider Name and Address Organization Details Last Updated DateTime 02/20/2019 114 mm[Hg] 62 mm[Hg] [facility] 02/20/2019 09:44:29 Social History Question Answer Notes LastModified by Organizat ion Details LastModified Time Tobacco Smoking Status Never Smoker Not Available [facility] 05/11/2011 04:54:19 Do You Have An Advance Directive? No Information not available 12/11/2013 What Is Your Level Of Alcohol Consumption? Occasional Once Yearly Maybe [email or web address] Information not available 12/31/2018 Do You Wear A Helmet When Biking? No Information not available 06/23/2014 What Is Your Level Of Caffeine Consumption? 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 0 Information not available 11/30/2016 Are There Any Guns Present In Your Home? No DBA_PATCH_ [email or web address] Information not available 05/11/2011 Live Alone Or With Others? With Others Sister, Uncle, Brother In Law Information not available 06/12/2013 CSRP - Narcotics No Information not available 06/23/2014 CSRP Contract Signed And Discussed No Information not available 06/23/2014 Does The Patient Have Difficulty Speaking Pashto? No DBA_PATCH_ [email or web address] Information not available 05/11/2011 Does The Patient Have Difficulty Reading Pashto? No DBA_PATCH_ 117 Information not available 05/11/2011 Patient Has Health Care Proxy Signed And In Chart No Information not available 12/11/2013 CSRP - Stimulants No Information not available 06/23/2014 CSRP - Suboxone No Informati on not available 07/22/2015 CCM Consent Discussion 04/30/2018 [email or web address] Information not available 04/30/2018 Marital Status DBA_PATCH_ 11 [email or web address] Information not available 05/11/2011 Mosquito Repellent Used [...] Used Smokeless Tobacco? Never Used Smokeless Tobacco [email or web address] Information not available 02/20/2019 How Much Tobacco [...] Organization Details LastModified Time Sister Diabetes mellitus [email or web address] Not available 2015 16:41:38 Notes:Diabetes. Sister with brain tumor. Medical History Condition Response Diabetes Type II Y Hyperlipidemia Y Osteoarthritis Y Hypertension Y Asthma Y Gynecological HistoryNo gynecological history recorded. Obstetrics History GPAL:G 0 P 0 0 0 0 Immunizations Vaccine Type Date Status Note Provider Nam e and Address Organization Details Recorded Time tetanus toxoid, unspecified formulation 1 completed Not Available [facility] 07/12/2019 02:34:13 influenza, unspecified formulation 0 completed Not Available [facility] 05/10/2011 05:22:52 Influenza, split virus, trivalent, preservative 1 completed LISANDRO [facility] 05/17/2011 14:09:08 Tdap 1 completed Fang Robison RN [facility] 06/12/2011 16:12:51 influenza, unspecified formulation 2 [facility] 05/21/2012 16:38:35 influenza, unspecified formulation 3 completed [facility] 06/12/2013 16:12:54 influenza, unspecified formulation 4 completed [facility] 06/23/2014 15:26:51 influenza, unspecified formulation 5 completed [facility] 04/29/2015 14:13:29 Pneumococcal conjugate PCV 13 8 completed Not Available [facility] 07/12/2019 02:22:36 Hep B, adult 9 completed Not Available [facility] 07/12/2019 02:34:54 influenza, unspecified formulation 6 completed Not Available [facility] 07/26/2019 02:10:42 pneumococcal polysaccharide PPV23 9 completed Not Available [facility] 07/12/2019 02:24:02 Influenza, split virus, quadrivalent, preservative 7 completed Liz Boyce BARBERING INSTRUCTOR clarissa, [facility] 05/03/2017 14:36:38 Past Encounters Encounter ID Performer Location Encounter Start Date Encounter Closed Date Diagnosis/Indication Diagnosis SNOMED-CT Code Diagnosis ICD10 Code Diagnosis Note [id number] [facility]JEEV [facility], [address] [place] [address] 09/14/2000 12:00:00 07/15/2008 02:02:29 [id number] [facility], [address] [place] [address] 10/16/2000 10:45:00 07/15/2008 02:02:29 [id number] RAJEEV [facility], [address] [place] [address] 02/28/2001 14:15:00 07/15/2008 02:02:29 [id number] [facility], [address] [place] [address] 03/01/2001 09:45:00 07/15/2008 02:02:29 [id number] [facility], [address] [place] [address] 10/22/2001 09:00:00 07/15/2008 02:02:29 [id number] LAB - [facility] [address] [place] [address] 10/22/2001 10:30:00 07/15/2008 02:02:29 [id number] [facility], [address] [place] [address] 12/02/2001 08:19:54 07/15/2008 02:02:29 [id number] Radiology , [address] [address] 12/02/2001 11:21:25 07/15/2008 02:02:29 [id number] LAB - [facility] [address] [place] [address] 04/24/2002 08:28:24 07/15/2008 02:02:29 [id number] [facility], [address] [place] [address] 04/30/2002 16:42:20 07/15/2008 02:02:29 [id number] LAB - [facility] [address] [place] [address] 07/22/2002 09:02:09 07/15/2008 02:02:29 [id number] [facility], [address] [place] [address] 07/29/2002 16:39:59 07/15/2008 02:02:29 [id number] [facility], [address] [place] [address] 10/30/2002 11:15:27 07/15/2008 02:02:29 [id number] LAB - [facility] Maribeth [facility] [place] [address] 10/30/2002 12:12:41 07/15/2008 02:02:29 [id number] [facility], [address] [place] [address] 12/31/2002 10:02:51 07/15/2008 02:02:29 [id number] LAB - [facility] Maribeth [facility] [place] [address] 12/31/2002 00:00:00 07/15/2008 02:02:29 [id number] LAB - [address] [address] 01/13/2003 11:28:31 07/15/2008 02:02:29 [id number] Radiology , [facility] [address] [place] [address] 01/15/2003 08:55:54 07/15/2008 02:02:29 [id number] [facility], [address] [place] [address] 07/03/2003 16:41:59 07/04/2003 10:51:01 [id number] [facility], [address] [place] [address] 10/13/2003 14:52:44 10/14/2003 08:39:08 [id number] LAB - [facility] [address] [place] [address] 10/22/2003 08:14:06 10/22/2003 08:14:10 [id number] [facility], [address] LISANDRO SANTA[address] 6 12/10/2003 14:34:40 12/12/2003 13:55:58 [id number] LAB - [facility] [address] [place] [address] 03/30/2004 08:05:15 03/30/2004 08:05:20 [id number] [facility], [address] [place] [address] 07/04/2004 13:43:22 07/04/2004 17:14:21 [id number] [facility], [address] LISANDRO SANT[place]62[address] 6 07/26/2004 09:25:43 07/27/2004 08:19:25 [id number] [facility], [address] [place] [address] 08/08/2004 15:52:00 08/09/2004 08:55:32 [id number] [facility], [address] [place] [address] 09/05/2004 07:59:25 09/05/2004 15:25:12 [id number] [facility], [address] [place] [address] 09/19/2004 13:51:52 09/19/2004 17:45:01 [id number] LAB - [facility] [address] [place] [address] 10/05/2004 08:38:59 10/05/2004 08:39:04 [id number] [facility], [address] [place] [address] 10/10/2004 07:58:34 10/10/2004 14:31:17 [id number] [facility], [address] [place] [address] 11/03/2004 13:44:09 07/15/2008 02:02:29 [id number] LAB - [facility] [address] [place] [address] 01/16/2005 08:22:10 01/16/2005 08:22:26 [id number] [facility], [address] [place] [address] 01/24/2005 08:00:36 07/15/2008 02:02:29 [id number] Radiology , [facility] [address] [place] [address] 02/13/2005 11:40:53 07/15/2008 02:02:29 [id number] Radiology , [facility] [address] [place] [address] 02/13/2005 00:00:00 07/15/2008 02:02:29 [id number] [facility], [address] [place] [address] 04/12/2005 08:22:15 07/15/2008 02:02:29 [id number] [facility], [address] [place] [address] 04/28/2005 16:18:32 07/15/2008 02:02:29 [id number] LAB - [facility] [address] [place] [address] 08/22/2005 08:28:59 08/22/2005 08:29:02 [id number] [facility], [address] [place] [address] 08/28/2005 15:40:14 08/29/2005 08:44:57 [id number] [facility], [address] [place] [address] 09/21/2005 14:22:16 07/15/2008 02:02:29 [id number] LAB - [place] [address] 09/21/2005 15:10:47 09/21/2005 15:11:05 [id number] LAB - [facility] [address] [place] [address] 01/23/2006 08:32:14 01/23/2006 08:32:24 [id number] [facility], [address] [place] [address] 02/05/2006 11:04:33 02/06/2006 09:17:09 [id number] [facility], [address] [place] [address] 03/21/2006 10:05:20 03/22/2006 08:20:24 [id number] [facility], [address] [place] [address] 04/04/2006 11:34:15 04/08/2006 09:14:42 [id number] LAB - [facility] [address] [place] [address] 04/25/2006 08:18:53 04/25/2006 08:19:04 [id number] [facility], [address] LISANDRO SANT[place]62[address] 6 05/03/2006 09:59:10 05/04/2006 08:46:05 [id number] Radiology , [facility] [address] [place] [address] 05/08/2006 08:08:08 07/15/2008 02:02:29 [id number] Radiology , [facility] [address] [place] [address] 05/08/2006 00:00:00 07/15/2008 02:02:29 [id number] [facility], [address] L[place]ANDRO SANT[place] 6 07/31/2006 08:56:23 07/31/2006 14:16:09 [id number] LAB - [facility] [address] [place] [address] 07/31/2006 10:36:02 07/31/2006 10:36:06 [id number] [facility], [address] [place] [address] 08/07/2006 08:36:04 08/08/2006 08:58:07 [id number] LAB - [place] [address] 10/22/2006 08:25:40 10/22/2006 08:25:45 [id number] [facility], [address] [place] [address] 10/29/2006 07:59:04 10/29/2006 10:37:03 [id number] LAB - [place] [address] 10/30/2006 08:27:25 10/30/2006 08:27:30 [id number] [facility], [address] [place] [address] 11/26/2006 10:44:18 11/26/2006 15:10:48 [id number] LAB - [facility] [address] [place] [address] 11/26/2006 11:29:37 11/26/2006 11:29:44 [id number] [facility], [address] [place] [address] 12/06/2006 14:26:14 12/07/2006 08:30:34 [id number] [facility], [address] [place] [address] 12/10/2006 13:46:03 12/11/2006 09:05:34 [id number] LAB - [facility] [address] [place] [address] 12/10/2006 14:31:03 12/10/2006 14:31:43 [id number] LAB - [facility] LISANDRO Banks62[address] 6 01/04/2007 07:54:29 01/04/2007 07:54:36 [id number] LAB - [facility] [address] LISANDRO Robles62[address] 6 04/08/2007 08:14:44 04/08/2007 08:14:49 [id number] [facility], [address] [facility] LISANDRO [place] 6 04/15/2007 16:27:24 04/18/2007 08:58:27 [id number] [facility] [address] [place] [address] 06/29/2007 09:23:36 07/01/2007 09:13:11 [id number] [facility], [address] [facility] [place] [address] 09/20/2007 14:25:55 07/15/2008 02:02:29 [id number] [facility], [address] [facility] [place] [address] 10/08/2007 14:05:16 07/15/2008 02:02:29 [id number] LAB - [place] [address] 10/29/2007 08:19:39 10/29/2007 08:19:43 [id number] [facility], [address] [facility] [place] [address] 11/05/2007 09:43:59 07/15/2008 02:02:29 [id number] LAB - [facility] [address] [place] [address] 11/12/2007 08:23:38 11/12/2007 08:23:44 [id number] LAB - [facility] [address] [place] [address] 01/17/2008 12:48:01 01/17/2008 12:48:16 [id number] [facility], [address] [place] [address] 01/24/2008 14:09:47 07/15/2008 02:02:29 [id number] LAB - [facility] LISANDRO Banks62-[address] 6 01/24/2008 15:39:37 01/24/2008 15:40:02 [id number] LAB - [facility] LISANDRO Banks62-[address] 6 01/24/2008 00:00:00 07/15/2008 02:02:29 [id number] [facility], [address] LISANDRO SANTA62[address] 6 03/30/2008 10:44:06 07/15/2008 02:02:29 [id number] Physical Therapy, [facility] LISANDRO Banks62-[address] 6 03/31/2008 11:58:11 04/01/2008 09:12:25 [id number] Physical Therapy, [facility] LISANDRO Banks62-[address] 6 04/02/2008 08:36:13 04/02/2008 16:25:15 [id number] Physical Therapy, [facility] LISANDRO Banks62-[address] 6 04/07/2008 08:34:12 04/07/2008 14:43:31 [id number] Physical Therapy, [facility] LISANDRO Banks62-[address] 6 04/09/2008 08:37:17 04/09/2008 15:42:30 [id number] Physical Therapy, [facility] LISANDRO Banks62-[address] 6 04/14/2008 08:31:29 04/14/2008 14:21:06 [id number] LAB - [place] [address] 07/07/2008 11:15:56 07/07/2008 11:16:03 [id number] [facility], [address] [place] [address] 07/14/2008 13:28:43 07/24/2008 13:00:23 [id number] [facility] [address] [place] [address] 12/19/2008 08:52:20 12/22/2008 14:08:26 [id number] [facility], [address] [place] [address] 06/24/2009 14:39:32 06/24/2009 16:02:12 [id number] , [facility], [address] [place] [address] 10/25/2009 13:26:11 11/10/2009 13:32:16 [id number] Radiology , [facility] [address] [place] [address] 10/25/2009 14:29:01 10/26/2009 11:21:38 [id number] , [facility], [address] [place] [address] 06/29/2010 11:23:06 07/26/2010 11:56:31 [id number] , [facility], [address] [place] [address] 09/22/2010 13:34:57 09/22/2010 17:04:13 [id number] , [facility], [address] [place] [address] 04/05/2011 09:42:34 04/05/2011 10:07:18 [id number] , [facility], [address] [place] [address] 04/10/2011 09:24:01 04/11/2011 11:28:27 [id number] , [facility], [address] [place] [address] 05/17/2011 13:46:28 05/17/2011 15:12:35 [id number] Radiology , [facility] [address] [place] [address] 05/17/2011 14:58:54 05/22/2011 15:07:56 [id number] , [facility], [address] [place] [address] 05/26/2011 16:22:49 05/29/2011 14:16:46 [id number] , [facility], [address] [place] [address] 11/21/2011 11:10:29 11/21/2011 12:20:19 [id number] Natalie Reveles MD FP, [facility], [address] [place] [address] 05/21/2012 15:50:05 05/21/2012 17:16:10 [id number] ENRIKE Haq , [facility], [address] [place] [address] 08/06/2012 09:44:43 08/06/2012 10:34:24 [id number] Natalie Reveles MD , [facility], [address] [place] [address] 11/01/2012 15:29:43 11/04/2012 10:55:05 [id number] Natalie Reveles MD , [facility], [address] [place] [address] 02/21/2013 11:09:19 02/21/2013 12:15:52 Benign essential hypertension 7123319 continue to work on diet ,exercisea nd lowering salt intake as discussed Mixed hyperlipidemia 607774866 continue to work on diet and exercise as discussed Diabetic on insulin 956870161 Rheumatoid arthritis 55997783 [id number] Kacey Espinoza MA , [facility], [address] [place] [address] 06/12/2013 15:53:14 06/12/2013 17:00:00 Benign essential hypertension 9364847 continue to work on diet ,exercisea nd lowering salt intake as discussed Mixed hyperlipidemia 796185410 continue to work on diet and exercise as discussed Adult heal th examination [id number] see Risk Assessment and Lifestyle Change Counseling section above Diabetic on insulin 816446387 Neuropathy due to diabetes mellitus 553942122 Mononeuritis 14711754 Rheumatoid arthritis 15899981 [id number] Mary Finley MA , [facility], [address] [place] [address] 06/19/2013 13:36:30 06/19/2013 14:00:11 Acute sinusitis 40402061 sx tx including afrin- strt ab if no relief Common cold 02945942 Upp er Respirator y Infection Drink plenty of fluids, such as water, diluted juice, decaffeina munir tea, or clear broth. Avoid dairy products if they cause you congestion . Use a nasal rinse, such as Netti Pot. Keep room humidified and take warm showers for the steam. Over the counter products for congestion and cough are OK, but will only provide partial relief. If you have high blood pressure, check with your pharmacist for safe alternativ es. Remember that cold symptoms can last as long as 2-3 weeks: stuffiness , cough and sore throat. Mucinex (generic name is guaifenesi n) can help thin mucus and make the cough easier to break up. Please call if your symptoms worsen considerab ly in 3 days, or you have a high fever. [id number] Mary Finley MA , [facility], [address] [place] [address] 09/23/2013 13:47:10 09/24/2013 10:04:00 Sinusitis 19166447 [id number] Yusuf Song MA , [facility], [address] [place] [address] 09/29/2013 16:41:29 09/30/2013 09:41:00 Acute sinusitis 38362759 [id number] LISANDRO Perla, [facility], [address] [place] [address] 11/27/2013 09:59:23 11/27/2013 16:10:44 Cough 73251370 [id number] LISANDRO Cates, [facility], [address] [place] [address] 12/11/2013 14:25:08 12/11/2013 15:34:31 Benign essential hypertension 9988085 continue to work on diet ,exercisea nd lowering salt intake as discussed Mixed hyperlipidemia 401642761 continue to work on diet and exercise as discussed Neuropathy due to diabetes mellitus 020345116 Diabetic on insulin 544024103 [id number] Natalie Reveles MD , [facility], [address] [place] [address] 06/23/2014 15:01:46 06/23/2014 16:03:39 Spinal stenosis of lumbar region 54266315 Neuropathy due to diabetes mellitus 441883286 Diabetic on insulin 671542613 Allergic a sthma without status asthmaticus 57317111 Mixed hyperlipidemia 439046986 continue to work on diet and exercise as discussed Mononeuritis 80093320 Rheumatoid arthritis 51146237 Type 2 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 867815837 [id number] LISANDRO Neely, [facility], [address] [place] [address] 12/31/2014 14:26:47 12/31/2014 15:36:09 Benign essential hypertension 2558238 continue to work on diet, exercise, and lowering salt intake as discussed Blood pressure at goal Mixed hyperlipidemia 268393115 continue to work on diet and exercise as discussed Diabetic on insulin 599948386 Rheumatoid arthritis 47537498 [id number] Natalie Reveles MD , [facility], [address] [place] [address] 04/29/2015 13:53:38 04/29/2015 14:45:02 Benign essential hypertension 4514348 I10 continue to work on diet, exercise, and lowering salt intake as discussed Mixed hyperlipidemia 267 804208 E78.2 continue to work on diet and exercise as discussed Diabetic on insulin 1707 81186 Z79.4 Type 2 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 385415891 E11.9 Neuropathy due to diabetes mellitus 372325624 E11.42 Allergic a sthma without status asthmaticus 76093594 J45.909 Rheumatoid arthritis 698 41547 M06.9 [id number] Natalie Reveles MD , [facility], [address] [place] [address] 07/22/2015 14:47:13 07/22/2015 15:54:33 Benign essential hypertension 0034574 I10 Blood pressure at goal continue to work on diet, exercise, and lowering salt intake as discussed Mixed hyperlipidemia 267 373606 E78.2 continue to work on diet and exercise as discussed Adult [facility] th examination 544090733 Z00.00 see Risk Assessment and Lifestyle Change Counseling section above Neuropathy due to diabetes mellitus 795654414 E11.42 Diabetic on insulin 1707 78994 Z79.4 Hypothyroidism 84104761 E03.9 Rheumatoid arthritis 698 68312 M06.9 Spinal shara nosis of lumbar region 35014799 M48.06 Type 2 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 569980131 E11.9 [id number] Nilam Zepeda , [facility], [address] [place] [address] 08/17/2015 16:10:28 08/17/2015 16:58:40 Acute sinusitis 27660894 J01.90 Eczema 09008113 L30.9 Asthma 594178374 J45.90 9 Allergic rhinitis 605277 04 J30.9 [id number] Natalie Reveles MD , [facility], [address] [place] [address] 11/23/2015 14:02:11 11/23/2015 15:24:07 Benign essential hypertension 0908379 I10 Blood pressure at goal continue to work on diet, exercise, and lowering salt intake as discussed Mixed hyperlipidemia 267 325205 E78.2 Cholestero l is at goal Continue to work on diet and exercise as discussed Neuropathy due to diabetes mellitus 169394952 E11.42 Rheumatoid arthritis 698 15533 M06.9 Type 2 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 306505501 E11.9 Diabetic on insulin 1707 87397 Z79.4 [id number] Natalie Reveles MD , [facility], [address] [place] [address] 03/23/2016 14:19:29 03/23/2016 15:26:40 Benign essential hypertension 7661980 I10 Blood pressure at goal Blood pressure NOT at goal. Mixed hyperlipidemia 267 024123 E78.2 continue to work on diet and exercise as discussed Sinusitis 86759908 J32.9 Eczema 51010742 L30.9 Diabetic on insulin 1707 57732 Z79.4 Mononeuritis 70144484 G5 8.9 Rheumatoid arthritis 698 51715 M06.9 [id number] Natalie Reveles MD , [facility], [address] [place] [address] 06/13/2016 14:40:53 06/13/2016 15:36:21 Acute sinusitis 64084018 J01.90 [id number] Natalie Reveles MD , [facility], [address] [place] [address] 11/30/2016 13:57:42 11/30/2016 15:08:02 Diabetic on insulin 188910699 Z79.4 Type 2 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 146851146 E11.9 Mixed hyperlipidemia 267 870919 E78.2 continue to work on diet and exercise as discussed Acute sinusitis 56006268 J01.90 [id number] Natalie Reveles MD , [facility], [address] [place] [address] 12/25/2016 09:20:57 12/25/2016 10:34:52 Adult health examination 953528694 Z00.00 see Risk Assessment and Lifestyle Change Counseling section above Counseling 069807309 Z71 .9 Mixed hyperlipidemia 267 826527 E78.2 continue to work on diet and exercise as discussed Benign ess ential hypertension 1019128 I10 Blood pressure at goal and re Mononeuritis 49843354 G5 8.9 Sciatica 97350291 M54.30 Diabetic on insulin 1707 29346 Z79.4 Rheumatoid arthritis 698 46503 M06.9 Neuropathy due to diabetes mellitus 168666477 E11.42 Hearing loss 42667491 H9 1.90 [id number] Natalie Reveles MD , [facility], [address] [place] [address] 05/03/2017 14:27:16 05/03/2017 15:21:54 Benign essential hypertension 4247367 I10 Blood pressure at goal . Mixed hyperlipidemia 267 670168 E78.2 continue to work on diet and exercise as discussed Sciatica 80771411 M54.30 Type 2 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 006811255 E11.9 Diabetic on insulin 1707 75869 Z79.4 Rheumatoid arthritis 698 17674 M06.9 [id number] Edgar Murray MD , [facility], [address] [place] [address] 06/27/2017 15:27:55 06/27/2017 15:57:15 Acute sinusitis 55400314 J01.90 discussed tx options,. At this point will tx with abx, probiotics , nasal rinses and rest. RTC prn [id number] Mami Bernstein MD , [facility], [address] [place] [address] 08/02/2017 13:49:47 08/02/2017 14:54:19 Allergic asthma without status asthmaticus 18067527 J45.909 feels diminished and wheezingbr eath sounds goodafter neb a bit improvedpe ak flows lower range, not much changesubj ectively feels easier to deep breath after nebulizerb ut albuterol makes her jittery and she avoids it when possiblesh ort term trial inhaled steroidcon tinue proair as neededf/u if not improving Acute uppe r respiratory infection 49002834 J06.9 Kriss is presenting today with recurrent URI sxthis does sound like a new viral URI and not pna or recurrent sinus infections upportive instr giventx coughaugme nt asthma mgmt [id number] Natalie Reveles MD , [facility], [address] [place] [address] 09/13/2017 14:23:47 09/13/2017 15:31:30 Benign essential hypertension 1381676 I10 Blood pressure at goal Mixed hyperlipidemia 267 653263 E78.2 continue to work on diet and exercise as discussed Sciatica 25005457 M54.30 Type 2 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 616866461 E11.9 Mononeuritis 77612810 G5 8.9 Rheumatoid arthritis 698 73131 M06.9 Diabetic on insulin 1707 49972 Z79.4 Anemia 883399736 D64.9 Asthma 324978872 J45.90 9 Active or passive immunization 938725849 Z23 [id number] , [facility], [address] [place] [address] 11/13/2017 14:08:31 11/13/2017 14:54:27 Transient cerebral ischemia 892301160 G45.9 Diabetic on insulin 1707 67718 Z79.4 [id number] Natalie Reveles MD , [facility], [address] [place] [address] 12/27/2017 14:34:57 12/27/2017 16:04:03 Adult health examination 358147315 Z00.00 see Risk Assessment and Lifestyle Change Counseling section above Counseling 391965773 Z71 .9 Depression screening 171 167528 Z13.89 depression screening tool administer ed, entered into emr, scored and discussed, time greater than 7.5 minutes Focal onse t impaired awareness epileptic seizure 271030184 G40.209 Benign ess ential hypertension 6563582 I10 Blood pressure at goal Sciatica 44888516 M54.30 Mixed hyperlipidemia 267 924004 E78.2 continue to work on diet and exercise as discussed Type 2 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 038521621 E11.9 Allergic a sthma without status asthmaticus 01877524 J45.909 Diabetic on insulin 1707 72612 Z79.4 Rheumatoid arthritis 698 73918 M06.9 Neuropathy due to diabetes mellitus 072509250 E11.42 Screening mammography 24 105025 Z12.31 Active or passive immunization 057956058 Z23 [id number] Natalie Reveles MD , [facility], [address] [place] [address] 04/30/2018 10:39:49 04/30/2018 11:23:30 Counseling 945044518 Z71.9 Benign ess ential hypertension 1952531 I10 Blood pressure at goal Mixed hyperlipidemia 267 528430 E78.2 continue to work on diet and exercise as discussed Focal onse t impaired awareness epileptic seizure 472018654 G40.209 Sciatica 74213195 M54.30 Type 2 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 557065957 E11.9 Mononeuritis 89650248 G5 8.9 Diabetic on insulin 1707 15053 Z79.4 Rheumatoid arthritis 698 93077 M06.9 Allergic a sthma without status asthmaticus 98924215 J45.909 Intolerant of ambient temperature 645522961 R68.89 [id number] Sil Carvajal , [facility], [address] [place] [address] 07/04/2018 09:15:51 07/04/2018 09:27:41 Active or passive immunization 696882910 Z23 [id number] Natalie Reveles MD , [facility], [address] [place] [address] 08/29/2018 11:16:37 08/30/2018 10:37:41 Acute sinusitis 49790528 J01.90 Benign ess ential hypertension 3019226 I10 Blood pressure at goal Type 2 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 121135289 E11.9 Mononeuritis 32906409 G5 8.9 Rheumatoid arthritis 698 88427 M06.9 [id number] Natalie Reveles MD , [facility], [address] [place] [address] 12/31/2018 14:40:49 12/31/2018 16:07:09 Adult health examination 262090389 Z00.00 see Risk Assessment and Lifestyle Change Counseling section above Counseling 920103815 Z71 .9 Depression screening 171 672920 Z13.89 depression screening tool administer ed, entered into emr, scored and discussed, time greater than 7.5 minutes Mixed hyperlipidemia 267 109525 E78.2 Focal onse t impaired awareness epileptic seizure 596247133 G40.209 Benign ess ential hypertension 1417298 I10 Blood pressure at goal Sciatica 77598989 M54.30 Type 2 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 658143288 E11.9 Allergic a sthma without status asthmaticus 46152113 J45.909 Diabetic on insulin 1707 43694 Z79.4 Rheumatoid arthritis 698 10137 M06.9 Gastroesop hageal reflux disease 290223841 K21.9 Active or passive immunization 455455316 Z23 Neuropathy due to diabetes mellitus 184266171 E11.42 [id number] Natalie Reveles MD , [facility], [address] [place] [address] 02/20/2019 09:32:43 02/20/2019 10:11:54 Acute sinusitis 73413652 J01.90 Health Concerns Section Related Observation LastModified by Organization Detai ls LastModified Time None Recorded Concern Status LastModified by Organization Details LastModified Time None Recorded Advance Directives Directive N: Payers Encounter Date Sequence Insurance Name Policy Number Policy Samuel Covered Member ID Samuel Member ID Guarantor Name 04/30/2018 1 [place] Kriss A Manuel [id number] Kriss Massimo Young 04/30/2018 2 [place] [id number] Kriss A Young [id number] Kriss A Young 07/04/2018 1 [place] Kriss A Manuel [id number] Kriss Massimo Young 07/04/2018 2 [place] [id number] Kriss A Young [id number] Kriss A Young 08/29/2018 1 [place] Kriss A Manuel [id number] Kriss A Young 08/29/2018 2 [place] [id number] Kriss Massimo Young [id number] Kriss A Young 12/31/2018 1 [place] Kriss A Manuel [id number] Kriss Massimo Young 12/31/2018 2 [place] [id number] Kriss A Young [id number] Kriss A Young 02/20/2019 1 [place] Kriss Massimo Manuel [id number] Kriss A Young 02/20/2019 2 [place] [id number] Kriss Massimo Young [id number] Kriss A Young Notes Date Note Type Note Provider Name [...] prn for feetCold intolerance has developed recently Naatlie Reveles MD [address] [place] [address], [address], [facility] 05/11/2018 15:01:12 9 text/html 67 yo with [...] lidocaine patches prn for feetCame back from [place] yesterday and had allergy sx. Using flonase, asthma inhaler, loratidine.Recent A1 C was <6% per Dr. Robson Reveles MD [address] [place] [address], [address], [facility] 08/30/2018 13:31:11 9 text/html Physical Exam/FemaleReported bypatient.PHAPatient [...] room and availability of urgent care at [facility] DiabetesReported bypatient.Duration:chronic Control:usually well controlled; improved since [...] of 145/80 since reducing lisinopril in august.Sees ep specialist (Dr. Chance) Natalie Reveles MD [address] [place] [address], [address], [facility] 01/05/2019 14:13:02 9 text/html Physical Exam/FemaleReported bypatient.PHAPatient [...] room and availability of urgent care at [facility] DiabetesReported bypatient.Duration:chronic Control:usually well controlled; improved since [...] green sputum. No dyspnea Natalie Reveles MD [address] [place] [address], [address], [facility] 02/20/2019 10:14:25 OBGyn Episode No OBEpisode recorded.
--- OUTSIDE RECORDS SUMMARY | 2024-07-22 10:39 | XMS_ITS ---
Author Organization [facility] Address [address] [place] [address] Care Team Providers Care [facility] Director Name Role Phone Angel Pablo Primary Care Provider Antonio Glies Unavailable [phone] Allergies Allergen (clinical drug ingredient) Drug/Non Drug [...] other tobacco user? No Vital Signs Height 7tq78zb in 05/16/2024 Weight 146 lbs 05/16/2024 BMI 30.51 kg/m2 05/16/2024 Blood pressure systolic 109 mm Hg 05/16/20 24 Blood pressure diastolic 54 mm Hg 024 Encounters Encounter Location Date Provider Diagnosis [facility] [address] [place] [address] 05/16/2024 Antonio Montoyaunier Neuropathic ulcer of right [...] Name:Antonio Giles , 09/16/2024 10:30:00 AM, [address] [place], [address], Progress Notes * Jose JACKSONOB:1950 ([age] yo F)Acc No.[id number]:05/16/2024 Progress Notes Patient:Kriss HARRISON Provider:?Antonio Giles DPM :1950???Age:73 Y???Sex:Female D ate:05/16/2024 Address:[address] [place], [place] [address] Pcp:Angel Pablo Subjective: * Chief Complaints: * [...] yes, housework,shooping. ?Marital status: . 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 * Medications:?TakingoxyBUTYni n Vitamin D Zoledronic Acid [...] hivesCod eine: stomach upsetDoxycyclineDuloxetineCymbaltayes[Allergies Verified] Objective: * Vitals:?Ht:8qo87yk, Wt:146, BMI:30.51, Shoe size:7, BP:109/54mm Hg, BS:not [...] Provider:?Antonio Giles DPM Date:?2023 Generated for Shanique alatorre/Lloyd/Ramirosmitting on:?07/22/2024 10:39 AM EST History and Physical Notes * [...]
--- OUTSIDE RECORDS SUMMARY | 2024-07-22 10:39 | XMS_ITS | Patient Health Record ---
Author [facility] Address [address] [place] [address] Care Team Providers Care Account Liaison Name Role Phone Angel Pablo Primary Care Provider Antonio Giles Unavailable [phone] Allergies Allergen (clinical drug ingredient) Drug/Non Drug [...] Vaccine Route Administration Date Status Comme nts Influenza Unknown 04/11/2022 Administered COVID-19 Vincenzo [employer] Vincenzo/Leon Unknown 07/14/2021 Administered 1st 09/29/2020 Booster 07/14/2021 Social History Tobacco Use: Social History Observation [...] Problem Acquired hammer toe of right foot (2607028992135312 ) Other hammer toe(s) (acquired), right foot (M20.41) Active confirmed Response to treatment, Improvemen t Problem Acquired hammer toe of left foot (7208487353189215 ) Other hammer toe(s) (acquired), left foot (M20.42) Active confirmed Response to treatment, Improvemen t Problem Polyneuropathy due to type 2 diabetes mellitus (387206522) Type 2 diabetes mellitus with diabetic polyneuropathy (E11.42) Active confirmed Problem Essential hypertension (93613968) Essential hypertension (I10) Active confirmed Vital Signs Blood pressure diastolic 54 mm Hg 06/10/2024 Height 9id98im in 06/10/2024 Blood pressure systolic 109 mm Hg 06/10/2024 Weight 146 lbs 06/10/2024 BMI 30.51 kg/m2 06/10/2024 Procedures Procedure Date Ordered Date Performed Result Body Sit e 73123-WSZLNFL NAIL, 6 OR MORE 09/11/2023 N/A 67095-IFJL SKIN LESIONS, OVER 4 09/11/2023 N/A 75326-AIBQQSN NAIL, 6 OR MORE 12/11/2023 N/A 43484-Mswzfzip Plate 12/11/2023 N/A 37753-WRMU SKIN LESIONS, OVER 4 12/11/2023 N/A 76860-ONHNCYF NAIL, 6 OR MORE 03/11/2024 N/A 11154 I&D ABSCESS- SIMPLE,SINGLE 03/11/2024 N/A 57816-TVAW SKIN LESIONS, OVER 4 03/11/2024 N/A 21514-JCYYXZL SKIN/TISSUE 03/25/2024 N/A 46915- Debride <25 sq cm 04/15/2024 N/A 72534-DOJENEZ NAIL, 6 OR MORE 06/10/2024 N/A 67225-LNJR SKIN LESIONS, OVER 4 06/10/2024 N/A Encounters Encounter Location Date Provider Diagnosis [facility] [address] [address] 09/11/2023 Antonio Giles Type 2 diabetes mellitus with diabetic polyneuropathy E11.42 ; Onychomycosis B35.1 and Xerosis of skin L85.[address] [facility] [address] 12/11/2023 Antonio Giles Type 2 diabetes mellitus with diabetic polyneuropathy E11.42 ; Tinea unguium B35.1 ; Other hammer toe(s) (acquired), right foot M20.41 ; Other hammer toe(s) (acquired), left foot M20.42 and Ingrown nail L60.[address] [address] 03/11/2024 Antonio Giles Type 2 diabetes mellitus with diabetic polyneuropathy E11.42 ; Tinea unguium B35.1 and Abscess of right foot L02.[address] [address] 03/25/2024 Antonio Giles Abscess of right nichole t L02.611 and Neuropathic ulcer of right foot with fat layer exposed L97.[address] [address] 04/15/2024 Antonio Giles Neuropathic ulcer of right foot, limited to breakdown of skin L97.[address] [address] 05/16/2024 Antonio Giles Neuropathic ulcer of right foot, limited to breakdown of skin L97.[address] [address] 06/10/2024 Antonio Giles Type 2 diabetes mellitus with diabetic polyneuropathy E11.42 ; Tinea unguium B35.1 ; Other hammer toe(s) (acquired), right foot M20.41 and Other hammer toe(s) (acquired), left foot M20.[address] [address] 03/11/2024 Antonio Giles Assessments Encounter Date Diagnosis [...] X ray : Foot, right 3V 03/03/2022 18043-WCOFHST NAIL, 6 OR MORE 03/11/2024 70142-KTWGCHF NAIL, 6 OR MORE 09/11/2023 36982-GQNCMMM NAIL, 6 OR MORE 12/11/2023 72191-RRLYZPQ NAIL, 6 OR MORE 09/08/2022 51275-ABSYXBO NAIL, 6 OR MORE 12/08/2022 83712-JSVBCEN NAIL, 6 OR MORE 03/09/2023 89418-HJVTUVX NAIL, 6 OR MORE 06/08/2023 79953-BXSOAIJ NAIL, 6 OR MORE 06/02/2022 28493-JRUKFAD NAIL, 6 OR MORE 03/03/2022 43738-NRWQKLB NAIL, 6 OR MORE 08/30/2021 83250-GOFTZYU NAIL, 6 OR MORE 12/02/2021 02695-HJDIZIV NAIL, 6 OR MORE 06/08/2020 23079-GFGPQZM NAIL, 6 OR MORE 09/03/2020 62965-FLEMFEO NAIL, 6 OR MORE 12/10/2020 51557-DAFJIOB NAIL, 6 OR MORE 03/22/2021 36082-SSMTMBH NAIL, 6 OR MORE 06/10/2024 91904-Cyrdqmnu Plate 12/11/2023 25224- Debride <25 sq cm 04/15/2024 15867-LXOBMFS SKIN/TISSUE 03/25/2024 93554 I&D ABSCESS- SIMPLE,SINGLE 024 93271-SNWY SKIN LESIONS, OVER 4 06/10/20 24 43955-ESLA SKIN LESIONS, OVER 4 03/11/20 24 98248-HFQK SKIN LESIONS, OVER 4 12/11/19 24 03029-SBYP SKIN LESIONS, OVER 4 09/11/19 24 39686-JLFB SKIN LESIONS, OVER 4 06/08/20 23 81033-VPEU SKIN LESIONS, OVER 4 03/09/20 23 83063-UGDI SKIN LESIONS, OVER 4 12/09/19 23 71233-IZBU SKIN LESIONS, OVER 4 09/09/19 23 13270-JWBZ SKIN LESIONS, OVER 4 03/22/20 21 45771-OQIT SKIN LESIONS, OVER 4 12/11/19 21 76625-XIOS SKIN LESIONS, OVER 4 09/04/19 21 88945-CIKM SKIN LESIONS, OVER 4 06/08/20 20 60656-SZGX SKIN LESIONS, OVER 4 12/03/19 22 06625-NDAY SKIN LESIONS, OVER 4 08/31/19 09916-UZUD SKIN LESIONS, OVER 4 03/03/20 39846-LZJL SKIN LESIONS, OVER 4 06/02/20 Next Appt Details Provider Name:Antonio Giles , 09/16/2024 10:30:00 AM, [address] [place], [address], Insurance Providers Payer Name Payer Address Payer Phone Subscriber Number Group Number Insured Name Patient Relationship to Insured Coverage Start Date Coverage End Date Medicare National [employer]t [employer] [address] [place] [address] [id number] Kriss Jackson Self - patient is the insured [employer] [address] [place] [address] [phone] [id number] Kriss Jackson Self - patient is the [...]
--- OUTSIDE RECORDS SUMMARY | 2024-07-22 10:40 | XMS_ITS ---
Author Organization [facility] Address [address] [place] [address] Care Team Providers Care Derrick Worker Name Role Phone Angel Pablo Primary Care Provider Antonio Giles Unavailable [phone] Allergies Allergen (clinical drug ingredient) Drug/Non Drug [...] W/U Status Risk Notes Problem Essential hypertension (67899695) Essential hypertension (I10) Active confirmed Vital Signs Height 0ch50al in 06/10/2024 Weight 146 lbs 06/10/2024 BMI 30.51 kg/m2 06/10/2024 Blood pressure systolic 109 mm Hg 06/10/20 24 Blood pressure diastolic 54 mm Hg 024 Procedures Procedure Date Ordered Date Performed Result Body Sit e 36580-CSGFQZV NAIL, 6 OR MORE 06/10/2024 N/A 07048-CCFT SKIN LESIONS, OVER 4 06/10/2024 N/A Encounters Encounter Location Date Provider Diagnosis [facility] [address] [address] 06/10/2024 Antonio Giles Type 2 diabetes mellitus [...] Treatment Pending Test Test Name Order Date 44546-YIIDWGP NAIL, 6 OR MORE 06/10/2024 81852-TGEW SKIN LESIONS, OVER 4 06/10/20 24 Next Appt Details Follow Up: prn, Reason: Provider Name:Antonio Giles , 09/16/2024 10:30:00 AM, [address] [place] [address], [address], Procedure Notes * Category Sub-Category Detail Notes [...] use of a nail nipper and/or dremel-type tap grinder, to a more viable healthy nail [...] to maintain effectiveness in symptomatic relief - 11432 Keratoma Treatment Parring or Cutting o f [...] instrumentation by the physician of record - 45320 Progress Notes * Jose JACKSONOB:1950 ([age] yo F)Acc No.[id number]:06/10/2024 Progress Note Patient:Kriss HARRISON Provider:?Antonio Giles DPM :1950???Age:73 Y???Sex:Female D ate:06/10/2024 Address:[address] [place] [address] Pcp:Angel Pablo Subjective: * Chief Complaints: * [...] yes, housework,shooping. ?Marital status: . 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 * Medications:?TakingAcetamino phen ER , Notes to [...] hivesCod eine: stomach upsetDoxycyclineDuloxetineCymbaltayes[Allergies Verified] Objective: * Vitals:?Ht:3uf58ff, Wt:146, BMI:30.51, Shoe size:7, BP:109/54mm Hg, BS:not [...] use of a nail nipper and/or dremel-type tap grinder, to a more viable healthy nail [...] to maintain effectiveness in symptomatic relief - 54127.?Keratoma Treatment:?Parring or Cutting of Benign Hyperkeratotic Lesion(s)?(-57) [...] instrumentation by the physician of record - 35292.? * Procedure Codes:?70056 DEBRI DE NAIL, 6 OR MORE, Modifiers: XS 02829 TRIM SKIN LESIONS, OVER 4, Modifiers: XS [...] DPM Date:?2023 Generated for Shanique alatorre/Lloyd/Jemalitting on:?07/22/2024 10:39 AM EST History and Physical [...]
== END 2024-07-22 10:38 | disposition home or self-care (01) ==
PROVIDERS: PCP Internal Medicine; Visit Provider Internal Medicine Cardiovascular Disease
DX: I47.29 Other ventricular tachycardia (principal); Z95.0 Presence of cardiac pacemaker
CPT/HCPCS: 93010; 93280; 99214; G2211

== ENCOUNTER → 2024-07-22 09:57 | Outpatient (BNVA) | payer MEDICARE, SELFPAY | PROVIDERS: PCP Internal Medicine; Visit Provider Internal Medicine Cardiovascular Disease | DX: Z45.018 Encounter for adjustment and management of other part of cardiac pacemaker (principal); I47.29 Other ventricular tachycardia; R94.31 Abnormal electrocardiogram [ECG] [EKG] | CPT/HCPCS: 93005; 93280; 99212 ==

== ENCOUNTER → 2024-07-28 12:48 | Outpatient (BNV) | payer MEDICARE, SELFPAY | PROVIDERS: PCP Internal Medicine; Visit Provider Internal Medicine | DX: I47.29 Other ventricular tachycardia (principal) | CPT/HCPCS: 93306 ==

== ENCOUNTER 2024-08-04 16:50 | Emergency (ER) | payer MEDICARE, SELFPAY ==
--- NOTE | ~2024-08-04 | CT_ITS ---
CLINICAL HISTORY: weakness CT head without contrast Comparison: CT/REG/SR - CT HEAD FOR STROKE - 08/15/22 14:59 EST Findings: No intra-axial mass, midline shift, hydrocephalus, or acute hemorrhage. No significant atrophy-like change or white matter disease. Moderate mucosal thickening opacification of bilateral maxillary and anterior ethmoid air cells. Small air-fluid levels are noted within the maxillary sinuses. The orbits are unremarkable. No skull fracture. IMPRESSION: 1. No acute intracranial findings. 2. Acute sinusitis. This document has been electronically signed by: Finesse Banerjee MD on 08/04/2024 19:48:26
--- NOTE | ~2024-08-04 | XR_ITS ---
CLINICAL HISTORY: pain 2 view chest x-ray Comparison: None Findings: The lungs are clear. Left chest dual lead cardiac pacer is in expected location. No acute fracture. IMPRESSION: 1. No acute findings. This document has been electronically signed by: Finesse Banerjee MD on 08/04/2024 19:45:28
[2024-08-04 18:14] VITALS: BP 160/73; PULSE 69; RESP 18; TEMP 36.6; O2SAT 99; BMI 28.6
--- NOTE | 2024-08-04 18:14 | ECG_ITS ---
Test Reason : WEAKNESS Blood Pressure : */* mmHG Vent. Rate : 67 BPM Atrial Rate : 67 BPM P-R Int : 160 ms QRS Dur : 138 ms QT Int : 450 ms P-R-T Axes : 57 -15 22 degrees QTcB Int : 475 ms Atrial-sensed ventricular-paced rhythm Abnormal ECG When compared with ECG of 15-Aug-2022 14:57, Vent. rate has decreased by 6 bpm Referred By: Hi Pickett Electronically Signed By: MARGE MACHADO MD
--- NOTE | 2024-08-04 18:14 | ED.GENADULT ---
HPI - General Adult General Chief complaint: Nausea/Vomiting/Diarrhea Stated complaint: Flu symptoms Time Seen by Provider: 08/05/24 00:32 History of Present Illness ED Provider: Betsy BEE narrative: The patient is a 73-year-old woman who says that she has felt unwell for about a week and a half. She says that she has had a lot of nausea, vomiting, and diarrhea. She also says that she has not been able to take her regular medications because of these symptoms. She says that she has felt that she is confused and lethargic and weak. She has been in contact with people with viral illnesses. Related Data Home Medications ?Medication ?Instructions ?Recorded ?Confirmed aspirin 81 mg tablet,delayed 81 mg PO DAILY 08/26/20 07/22/24 release gabapentin 600 mg tablet 600 mg PO TID 2 at night 09/20/22 07/22/24 insulin lispro 100 unit/mL 1 sliding scale dose subcut 09/20/22 07/22/24 subcutaneous half-unit pen USEASDIRECTD (Humalog Kervin KwikPen (U-100)) lamotrigine 25 mg tablet 50 mg PO BID 02/13/23 07/22/24 cholecalciferol (vitamin D3) 50 4,000 unit PO DAILY 03/05/23 07/22/24 mcg (2,000 unit) capsule (Vitamin D3) zoledronic acid 5 mg/100 mL in 5 ea IV ONCE 03/21/23 07/22/24 mannitol 5 %-water intravenous piggybck (Reclast) ammonium lactate 12 % topical cream 12 appl topical BID 07/20/23 07/22/24 famotidine 40 mg tablet 40 mg PO BID 07/22/24 07/22/24 furosemide 20 mg tablet 10 mg PO DAILY 07/22/24 07/22/24 Previous Rx's ?Medication ?Instructions ?Recorded insulin syringe-needle U-100 1 mL #100 ea 10/21/20 29 gauge x 7/16 walker #1 ea 11/12/20 betamethasone valerate 0.1 % 1 appl topical BID PRN skin 11/22/21 topical ointment irritation #45 grams ketoconazole 2 % topical cream 1 appl topical BID #60 grams 11/22/21 fluticasone propionate 50 2 spray intranasal DAILY #16 grams 07/19/22 mcg/actuation nasal spray,suspension albuterol sulfate 90 mcg/actuation 2 puff inhalation Q4-6H PRN 03/05/23 aerosol inhaler (ProAir HFA) shortness of breath or wheezing 30 days #8.5 grams loperamide 2 mg capsule 2 mg PO TID loose stool #180 caps 04/10/23 lidocaine 5 % topical patch 1 patch topical DAILY #30 patches 04/12/23 metronidazole 1 % topical gel with 1 appl topical DAILY #55 grams 04/12/23 pump blood sugar diagnostic (OneTouch #150 ea 06/06/23 Ultra Test strips) hydroxychloroquine 200 mg tablet 200 mg PO BID #180 tabs 10/31/23 nystatin 100,000 unit/mL oral 10 ml PO TID #473 mL 02/19/24 suspension insulin glargine 100 unit/mL (3 60 unit (0.6 mL) subcut BEDTIME 30 02/28/24 mL) subcutaneous pen (Lanus days #18 mL Solostar U-100 Insulin) methotrexate sodium 2.5 mg tablet 20 mg (8 x 2.5 mg) PO QWEEK #102 05/08/24 tabs lisinopril 10 1 tab PO DAILY 90 days #90 tabs 06/23/24 mg-hydrochlorothiazide 12.5 mg tablet pen needle, diabetic 32 gauge x #50 ea 06/23/24 (BD [place] 2nd Gen Pen Needle) adalimumab 40 mg/0.4 mL 40 mg (0.4 mL) subcut Q2W #2 ea 06/26/24 subcutaneous pen kit (Humira(CF) Pen) folic acid 1 mg tablet 1 mg PO DAILY #90 tabs 06/26/24 atorvastatin 10 mg tablet 10 mg PO BEDTIME #90 tabs 07/03/24 metoprolol succinate 50 mg 50 mg PO DAILY #30 tabs 07/22/24 tablet,extended release 24 hr (Toprol XL) oxybutynin chloride 10 mg 10 mg PO DAILY #90 tabs 07/25/24 tablet,extended release 24 hr oseltamivir 75 mg capsule 75 mg PO BID #9 caps 08/05/24 Allergies Allergy/AdvReac Type Severity Reaction Status Date / Time duloxetine Allergy Severe LOOPY Verified 08/04/24 18:18 codeine [CODEINE] Allergy Intermediate GI UPSET Verified 08/04/24 18:18 doxycycline [DOXYCYCLINE] Allergy Intermediate RASH Verified 08/04/24 18:18 Sulfa (Sulfonamide Allergy Intermediate Hives Verified 08/04/24 18:18 Antibiotics) [SULFA (SULFONAMIDE ANTIBIOTICS)] Review of Systems Review of Systems: Yes all other systems are reviewed and are negative [facility] Past Medical History Medical History Osteoarthritis of hands, bilateral Osteopenia Rheumatoid arthritis with negative rheumatoid factor Encounter for ongoing osteoporosis therapy, 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 Edema of lower extremity present on examination Petechiae long 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 care 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 use of drug Irritable bowel syndrome with diarrhea Rheumatoid arthritis Pacemaker TIA (transient ischemic attack) Dysphagia Spinal stenosis COVID COVID-19 Laryngopharyngeal reflux (LPR) Asthma Rotator cuff tendinitis Post-menopausal Polyarthralgia Dyspnea on exertion Allergic rhinitis Bronchitis Asthma exacerbation Cough variant asthma DJD (degenerative joint disease) Decreased hearing GERD (gastroesophageal reflux disease) Type 2 diabetes 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s Surgical History S/P placement of cardiac pacemaker History of esophagogastroduodenoscopy (EGD) History of colonoscopy (~09/05/21) Hx of cholecystectomy Hx of tonsillectomy Hx of hysterectomy Family History Family History Father CVD (cardiovascular disease) Diabetes Mother Diabetes Sister No problems noted. Other Substance use disorder Social History Social History Household Members: Family and None Housing: House Are you a primary home day care provider to a significant other at home: No Do you presently have visiting nurse or other home services: No Alcohol intake: former Comment: WITHIN LAST MONTH Patient Tobacco Use Status: Never used Tobacco Smoked in Last 30 Days: No e-Cigarette/Vaping Use: Never Used Second Hand Smoke Exposure: No Use of substances other than those prescribed or required for medical reasons: No Advance Directives: Yes Advance Directives on File: Yes Advance Directives Date on File: 08/04/22 Do you have a plan to hurt others: No Plan service: No Current occupational status: retired Cognitive needs: Yes (walker) Hearing needs: Yes (hearing aide) Vision needs: Yes (glasses) Physical Exam ED Vital Signs: Vital Signs - 24 hr 08/04/24 18:14 08/05/24 01:04 08/05/24 01:15 Temperature 97.8 F 98.2 F 98.2 F Pulse Rate 69 65 65 Respiratory Rate 18 16 16 Blood Pressure 160/73 H 135/60 135/60 Pulse Oximetry 99 98 98 Oxygen Delivery Method Room Air Room Air Room Air BMI result Body Mass Index 28.6 Const Other: The patient is awake and alert. She was sitting up in a wheelchair. She did not appear obviously ill. Her mental status seemed normal. HENMT Other: Face is symmetrical. Mucous membranes moist. Eyes General: appearance normal, both eyes and all related structures Conjunctivae: conjunctivae normal Sclerae: sclerae normal EOM: EOMs intact bilaterally Neck Neck: Yes full ROM, Yes no lymphadenopathy and Yes no JVD Resp Effort & Inspection: normal respiratory effort Auscultation: clear to auscultation bilaterally Cardio Rate: regular rate Rhythm: regular rhythm Heart sounds: S1 normal heart sound present and S2 normal heart sound present GI Other: Abdomen is soft and nontender Skin Other: Skin is pale and dry Neuro Other: The patient is awake and alert with a normal mental status. She seems oriented and appropriate. Cranial nerves are grossly intact. She moves her extremities symmetrically. Extrem Other: No peripheral edema Course Course Course Narrative: RME, this is a rapid medical exam performed by Jose R Pickett please refer to primary provider for complete H&P- 73-year-old female with past medical history significant for arthritis, hypertension, overactive bladder, complete heart block, anemia, asthma, GERD, type 2 diabetes presents for evaluation of weakness, cough, congestion and diarrhea over the last few days. The patient is here with family who reports that several others have been sick with similar symptoms. Plan for labs, viral swabs Medications Administered Discontinued Medications Generic Name Dose Route Start Last Admin Trade Name Freq PRN Reason Stop Dose Admin Oseltamivir Phosphate 75 mg 08/05/24 00:45 08/05/24 00:59 Oseltamivir Phosphate 75 Mg Capsule PO 08/05/24 00:46 75 mg ONCE ONE Administration Medical Decision Making Medical Decision Making [facility] Narrative: The patient is a 73-year-old woman who describes being ill for a week and a half. She is testing positive flu. A large number of tests has been ordered at triage including a head CT, chest x-ray, and blood work. Clinically the patient does not appear obviously acutely ill and her vital signs are not remarkably abnormal. She was mildly hypertensive at triage but subsequently normal sense of. Other vital signs has been normal throughout. She is not tachycardic. On her labs the patient's BUN is 39 which is higher than when last checked 5 weeks ago when it was 30. Her hemoglobin is also somewhat higher than when last checked. This suggests some degree of hemo concentration. I think she is somewhat dehydrated. The patient was offered IV fluids but she did not wish to stay in the emergency room. She had had a very long wait to be seen by a provider. She feels she can tolerate oral fluids at home. She has Pedialyte. She also has a ondansetron. She will be started on oseltamivir and discharged. Lab Data 08/04/24 22:01 08/04/24 22:01 Labs: Lab Results 08/04/24 Range/Units 22:01 WBC 4.9 (4.8-10.8) X10*3/uL RBC 3.44 L (4.20-5.50) X10*6/uL Hgb 11.4 L (12.0-16.0) g/dl Hct 32.1 L (37.0-47.0) % MCV 93.3 (80.0-98.0) fL MCH 33.1 H (27.0-33.0) pg MCHC 35.5 H (31.0-35.0) g/dl RDW 13.2 (11.0-16.0) % Plt Count 101 L D (160-400) X10*3/uL MPV 11.5 (9.4-12.3) fL Immature Gran % (Auto) 0.4 (0.0-0.4) % Neut % (Auto) 63.5 (45-73) % Lymph % (Auto) 20.9 (20-40) % [place] % (Auto) 14.8 H (2-11) % Eos % (Auto) 0.2 (0-4) % Baso % (Auto) 0.2 (0-2) % Lymph # (Auto) 1.0 L (1.2-4.9) X10*3/uL [place] # (Auto) 0.7 (0.1-1.2) X10*3/uL Eos # (Auto) 0.0 (0.0-0.4) X10*3/uL Baso # (Auto) 0.0 (0.0-0.2) X10*3/uL Abs Immat Gran (auto) 0.02 (0.00-0.03) X10*3/uL Absolute Neuts (auto) 3.1 (2.0-8.3) x10*3/uL Absolute Nucleated RBC 0.000 (0.0-0.012) X10*3/uL Nucleated RBC % (auto) 0.0 (0.0-0.2) /100WBC Smear Tech's Comments VERIFIED PT 12.1 (10.9-12.4) SEC INR 1.0 (0.9-1.1) Sodium 144 (135-145) mmol/L Potassium 3.4 (3.3-5.1) mmol/L Chloride 109 H (96-108) mmol/L Carbon Dioxide 22 (22-29) mmol/L Anion Gap 16 (12-20) BUN 39 H (9-16) mg/dL Creatinine 0.88 (0.5-1.4) mg/dL Estim Creat Clear Calc 42.3 Estimated GFR > 60 Random Glucose 102 (60-115) mg/dL Calcium 8.6 (8.4-10.2) mg/dL Total Bilirubin 0.9 (0.0-1.0) mg/dL AST 47 H (5-31) U/L ALT 32 H (0-31) U/L Alkaline Phosphatase 55 (39-117) U/L Total Protein 7.4 (6.5-8.0) g/dL Albumin 4.4 (3.5-5.0) g/dL Lipase 45 (8-78) U/L Influenza Type A (PCR) POSITIVE A (Negative) Influenza Type B (PCR) NEGATIVE (Negative) RSV RNA Qual (PCR) NEGATIVE (Negative) SARS-CoV-2 RNA (RT-PCR) NEGATIVE (Negative) S. pyogenes GrpA SOPHIE Negative (Negative) Discharge Plan Discharge Clinical Impression: Influenza A Patient Disposition: Home, Self-Care Instructions: Influenza (ED) Additional Instructions: You have tested positive for influenza today. Influenza can cause gastrointestinal symptoms as well as more generalized symptoms. Given the severity of your symptoms you has been started on the anti-influenza medication, Tamiflu (also known as oseltamivir). Please take this medication 2 times a day until done. Labs suggest you were mildly dehydrated. Please take Pedialyte as we discussed. You may use the ondansetron(Zofran) that you have at home as needed for nausea. You may use acetaminophen (Tylenol) for pain and fever. Please follow up next week with your regular doctor. Return to the emergency room if significantly worse. Prescriptions: New oseltamivir 75 mg capsule 75 mg PO BID Qty: 9 0RF No Action (DME) insulin syringe-needle U-100 1 mL 29 gauge x 7/16 syringe See Rx Instructions .ROUTE QWEEK Qty: 100 0RF Rx Instructions: As directed fluticasone propionate 50 mcg/actuation spray,suspension 2 spray intranasal DAILY Qty: 16 0RF cholecalciferol (vitamin D3) [Vitamin D3] 50 mcg (2,000 unit) capsule 4,000 unit PO DAILY loperamide 2 mg capsule 2 mg PO TID Qty: 180 6RF (DME) OneTouch Ultra Test Strip See Rx Instructions .Route Qty: 150 12RF Rx Instructions: As directed 3x daily hydroxychloroquine 200 mg tablet 200 mg PO BID Qty: 180 2RF methotrexate sodium 2.5 mg tablet 20 mg PO QWEEK Qty: 102 0RF (DME) pen needle, diabetic [BD [place] 2nd Gen Pen Needle] 32 gauge x 5/32 needle See Rx Instructions .ROUTE QID Qty: 50 2RF Rx Instructions: As directed lisinopril-hydrochlorothiazide 10-12.5 mg tablet 1 tab PO DAILY 90 Days Qty: 90 0RF folic acid 1 mg tablet 1 mg PO DAILY Qty: 90 2RF Humira(CF) Pen 40 mg/0.4 mL pen injector kit 40 mg subcut Q2W Qty: 2 6RF atorvastatin 10 mg tablet 10 mg PO BEDTIME Qty: 90 1RF metoprolol succinate [Toprol XL] 50 mg tablet extended release 24 hr 50 mg PO DAILY Qty: 30 5RF oxybutynin chloride 10 mg tablet extended release 24hr 10 mg PO DAILY Qty: 90 0RF gabapentin 600 mg tablet 600 mg PO TID Patient Comments: One tablet in the morning and 2 tablets at night. ketoconazole 2 % cream 1 appl topical BID Qty: 60 0RF betamethasone valerate 0.1 % ointment 1 appl topical BID PRN (Reason: skin irritation) Qty: 45 0RF insulin glargine [Lantus Solostar U-100 Insulin] 100 unit/mL (3 mL) insulin pen 60 unit subcut BEDTIME 30 Days Qty: 18 3RF lidocaine 5 % adhesive patch,medicated 1 patch topical DAILY Qty: 30 0RF metronidazole 1 % gel with pump 1 appl topical DAILY Qty: 55 0RF aspirin 81 mg tablet,delayed release (DR/EC) 81 mg PO DAILY (DME) [facility] See Rx Instructions .ROUTE .MEDSUPPLY Qty: 1 0RF Rx Instructions: As directed lamotrigine 25 mg tablet 50 mg PO BID Patient Comments: Take 2 tablets in the morning and 2 tablets at night insulin lispro [Humalog Kervin KwikPen U-100] 100 unit/mL insulin pen, half-unit 1 sliding scale dose subcut USEASDIRECTD zoledronic [id number] [Reclast] 5 mg/100 mL piggyback 5 ea IV ONCE albuterol sulfate [ProAir HFA] 90 mcg/actuation HFA aerosol inhaler 2 puff inhalation Q4-6H PRN (Reason: shortness of breath or wheezing) 30 Days Qty: 8.5 5RF ammonium lactate 12 % cream 12 appl topical BID famotidine 40 mg tablet 40 mg PO BID furosemide 20 mg tablet 10 mg PO DAILY nystatin 100,000 unit/mL suspension 10 ml PO TID Qty: 473 1RF Rx Instructions: swish and swallow Referrals: Angel Pablo MD [Primary Care Provider] - (Influenza, mild dehydration) Interventions: ED Discharge Assessment Last Done: 08/05/24 01:15 Discharge Date/Time: 08/05/24 01:16 Print Language: Greenlandic
[2024-08-04 22:16] LABS: Basophils Percent Auto 0.2 % (0-2); Eosinophils Percent Auto 0.2 % (0-4); Hemoglobin 11.4 g/dl (12.0-16.0); Imm Gran Abs Auto 0.02 X10*3/uL (0.00-0.03); Imm Gran Pct Auto 0.4 % (0.0-0.4); Monocytes Percent Auto 14.8 % (2-11); PLT CLUMP 1; Red Cell Distribution Width 13.2 % (11.0-16.0); SCAN SMEAR FLAG 1
[2024-08-04 22:18] LABS: Hematocrit 32.1 % (37.0-47.0); Lymphocytes Percent Auto 20.9 % (20-40); Mean Corpuscular HGB Conc 35.5 g/dl (31.0-35.0); Mean Corpuscular Hemoglobin 33.1 pg (27.0-33.0); Mean Corpuscular Volume 93.3 fL (80.0-98.0); Mean Platelet Volume 11.5 fL (9.4-12.3); Monocytes Absolute Auto 0.7 X10*3/uL (0.1-1.2); Neutrophils Absolute Auto 3.1 x10*3/uL (2.0-8.3); Neutrophils Percent Auto 63.5 % (45-73); Red Blood Count 3.44 X10*6/uL (4.20-5.50)
[2024-08-04 22:23] LABS: Prothrombin Time 12.1 SEC (10.9-12.4)
[2024-08-04 22:28] LABS: IDNOW Serial# 6674DD1D; White Blood Count 4.9 X10*3/uL (4.8-10.8)
[2024-08-04 22:29] LABS: Alanine Aminotransferase 32 U/L (0-31); Albumin Level 4.4 g/dL (3.5-5.0); Alkaline Phosphatase 55 U/L (39-117); Anion Gap 16 (12-20); Aspartate Amino Transferase 47 U/L (5-31); Bilirubin Total 0.9 mg/dL (0.0-1.0); Blood Urea Nitrogen 39 mg/dL (9-16); Calcium 8.6 mg/dL (8.4-10.2); Carbon Dioxide 22 mmol/L (22-29); Chloride 109 mmol/L (96-108); Creatinine Clr Calc Pharmacy 42.3; Estimated Glomerular Filt Rate > 60; Glucose Random 102 mg/dL (60-115); Lipase 45 U/L (8-78); Platelet Count 101 X10*3/uL (160-400); Potassium 3.4 mmol/L (3.3-5.1); Sodium 144 mmol/L (135-145); Strep A Nucleic Acid Negative (Negative); Total Protein 7.4 g/dL (6.5-8.0)
[2024-08-04 22:30] LABS: MANUAL DIFF FLAG NO
[2024-08-04 22:49] LABS: Influenza A PCR POSITIVE (Negative); Influenza B PCR NEGATIVE (Negative); Resp Syncy Virus RNA Qual PCR NEGATIVE (Negative); SARS COV2 PCR INHOUSE NEGATIVE (Negative)
[2024-08-04 22:51] LABS: SLIDE REVIEW VERIFIED
--- OUTSIDE RECORDS SUMMARY | 2024-08-05 00:53 | XMS_ITS | Data Portability ---
Author Organization [facility], [facility] Address [address] [place] [address] Assessment Encounter Date Assessment Date Assessment LastModified by Organization Details LastModified Time 04/30/2018 04/30/2018 Blood pressure i s at goal with which is below 140/90 for a diabetic. She is looking for alternative activities in her shelter. Her A1c of 5.5% shows excellent diabetes control (goal below 7.5-8%). She will continue with [place] [facility] excellence in diabetes education for that. [...] to what she tells us from her confectionery laboratory manager, and she will try and get us those records. He continues with ed manager and on prednisone. She will follow-up in [...] bp more regularly 3) Patient regularly sees confectionery laboratory manager who will check A1C and adjust rx [...] with new provider (will be changing to [facility] for convenience) 9) RA stable; may be [...] Lab TSH, serum or plasma 2017 018 [facility], [address] [place] [address], [address], 8 16:26:11 CBC 2017 018 [facility], [address] [place], [address], 8 14:43:05 Referral None recorded. Procedures None recorded. Surgeries None recorded. Imaging None recorded. Medication Orders cefpodoxim e 200 mg tablet 2018 019 [facility] #[id number], [address], [place], [id number], 9 14:47:44 atorvastat in 20 mg tablet 2018 019 [facility] #[id number], [address], [place], [id number], 9 16:34:01 lidocaine 5 % topical patch 2018 019 [facility] #[id number], [address], [place], [id number], 9 13:32:45 omeprazole 20 mg capsule,de layed release 2018 019 [facility] #[id number], [address], [place], [id number], 9 16:34:01 lisinopril 10 mg-hydroch lorothiazi de 12.5 mg tablet 2018 019 [facility] #[id number], [address], [place], [id number], 9 16:34:01 cefpodoxim e 200 mg tablet 2018 019 [facility] #[id number], [facility], [place], [id number], 9 12:53:28 Patient TargetsNo targets recorded. Patient Instructions Encounter Date Encounter Id Patient Instructions Last Modified By Organization Details Last Modified Time 04/30/2018 [id number] high cholesterol lifestyle changes nikki Not available 04/30/2018 11:19:19 high blood pressure: care instructions nikki Not available 04/30/2018 11:19:19 learning about high blood pressure nikki Not available 04/30/2018 11:19:19 asthma handout / teaching nikki Not available 04/30/2018 11:19:19 asthma action plan nikki Not availab le 04/30/2018 11:19:[address] an ages 0-11 yrs maori nikki Not available 04/30/2018 11:19:19 CCM: The provide r and patient discussed the Chronic Care Management program, including the services provided, and any fees associated with them. michele Not available 04/30/2018 11:32:47 08/29/2018 [id number] My Health To Do List Specific Analgesia [...] medication. spise Not available 08/29/2018 11:18:25 12/31/2018 [id number] After a discussi on of treatment options, [...] Patie nts with Diabe sarath Not Available [address], [address], 04/26/2018 15:36:01 04/26/20 18 04/26/2018 HbA1c (hemo globi n A1c), blood estimated average glucose 111.2 mg/dL Not Available [address], [address], 04/26/2018 15:36:01 04/26/20 18 04/26/2018 micro album in, urine microalbumin 39.3 mg/L 1.3-20 .0 high Not Available [address], [address], 04/26/2018 15:37:51 04/26/20 18 04/26/2018 micro album in, urine creatinine urine 193.6 mg/dL 30.0-1 25.0 high Not Available [address], [address], 04/26/2018 15:37:51 04/26/20 18 04/26/2018 micro album in, urine microalb/cre at ratio 20.3 mg/g_ creat 0.0-29 .0 Not Available [address], [address], 04/26/2018 15:37:51 04/26/20 18 04/26/2018 BMP, serum or plasm a glucose 74 mg/dL 70-100 Not Available [address], [address], 04/26/2018 16:07:42 04/26/20 18 04/26/2018 BMP, serum or plasm a BUN 16 mg/dL 7-18 Not Available [address], [address], 04/26/2018 16:07:42 04/26/20 18 04/26/2018 BMP, serum or plasm a creatinine 1.1 mg/dL 0.8-1. 3 Not Available [address], [address], 04/26/2018 16:07:42 04/26/20 18 04/26/2018 BMP, serum or plasm a B/C 14.5 ratio Not Available [address], [address], 04/26/2018 16:07:42 04/26/20 18 04/26/2018 BMP, serum or plasm a GFR -non 55.5 mL/mi n Recom zhane d GFR by the Natio nal Kidne y Found ation >60 mL/mi n/1.7 3m2 - Patricia l <60 mL/mi n/1.7 3m2 - Chron ic Kidne y Disea se <15 mL/mi n/1.7 3m2 - Kidne y Failu re Not Available [address], [address], 04/26/2018 16:07:42 04/26/20 18 04/26/2018 BMP, serum or plasm a GFR - if 63.8 mL/mi n For Afric an Ameri can patie nts: Resul ts Multi plied by 1.21 Not Available [address], [address], 04/26/2018 16:07:42 04/26/20 18 04/26/2018 BMP, serum or plasm a sodium 143 mmol/ L 136-14 5 Not Available [address], [address], 04/26/2018 16:07:42 04/26/20 18 04/26/2018 BMP, serum or plasm a potassium 4.6 mmol/ L 3.5-5. 1 Not Available [address], [address], 04/26/2018 16:07:42 04/26/20 18 04/26/2018 BMP, serum or plasm a chloride 105 mmol/ L 96-107 Not Available [address], [address], 04/26/2018 16:07:42 04/26/20 18 04/26/2018 BMP, serum or plasm a anion gap 11.1 5.0-15 .0 Not Available [address], [address], 04/26/2018 16:07:42 04/26/20 18 04/26/2018 BMP, serum or plasm a CO2 27 mmol/ L 21-32 Not Available [address], [address], 04/26/2018 16:07:42 04/26/20 18 04/26/2018 BMP, serum or plasm a calcium 9.2 mg/dL 8.5-10 .3 Not Available [address], [address], 04/26/2018 16:07:42 04/26/20 18 04/26/2018 lipid panel , serum cholesterol 106 mg/dL <200 mg/dl Avelino able 200-2 39 mg/dl Borde rline High >240 mg/dl High Not Available [address], [address], 04/26/2018 16:07:44 04/26/20 18 04/26/2018 lipid panel , serum triglyceride s 184 mg/dL <150 mg/dL Patricia l 150-1 99 mg/dL Borde rline High 200-4 99 mg/dL High >500 mg/dL Very High Not Available [address], [address], 04/26/2018 16:07:44 04/26/20 18 04/26/2018 lipid panel , serum direct HDL 39 mg/dL <40 mg/dl - Major Risk for CHD >60 mg/dl - Negat jeannette Risk for CHD Not Available [address], [address], 04/26/2018 16:07:44 04/26/20 18 04/26/2018 LDL, calcu [...] 0-1 risk facto r is not bryantpierce olivia. Not Available [address], [address], 04/26/2018 16:07:45 04/26/20 18 04/26/2018 AST/S GOT (aspa rtate amino trans feras e), serum or plasm a AST 18 U/L 15-37 Not Available [address], [address], 04/26/2018 16:25:23 04/26/20 18 04/26/2018 ALT (karen ine amino trans feras e), serum or plasm a ALT 26 U/L 30-65 low Not Available [address], [address], 04/26/2018 16:25:24 04/30/20 18 04/30/2018 CBC WBC 8.9 K/??L 4.0-10 .0 Not Available [address], [address], 04/30/2018 14:43:04 04/30/20 18 04/30/2018 CBC RBC 4.13 M/??L 3.93-5 .22 Not Available [address], [address], 04/30/2018 14:43:04 04/30/20 18 04/30/2018 CBC HGB 11.9 g/dL 11.2-1 5.7 Not Available [address], [address], 04/30/2018 14:43:04 04/30/20 18 04/30/2018 CBC HCT 35.9 % 34.1-4 4.9 Not Available [address], [address], 04/30/2018 14:43:04 04/30/20 18 04/30/2018 CBC MCV 86.9 ??L 79.4-9 4.8 Not Available [address], [address], 04/30/2018 14:43:04 04/30/20 18 04/30/2018 CBC MCH 28.8 pg 25.6-3 2.2 Not Available [address], [address], 04/30/2018 14:43:04 04/30/20 18 04/30/2018 CBC MCHC 33.1 g/dL 32.2-3 5.5 Not Available [address], [address], 04/30/2018 14:43:04 04/30/20 18 04/30/2018 CBC plt 290.0 K/??L 182.0- 369.0 Not Available [address], [address], 04/30/2018 14:43:04 04/30/20 18 04/30/2018 CBC MPV 11.7 9.4-12 .3 Not Available [address], [address], 04/30/2018 14:43:04 04/30/20 18 04/30/2018 CBC neut% 78.8 % 34.0-7 1.1 high Not Available [address], [address], 04/30/2018 14:43:04 04/30/20 18 04/30/2018 CBC neut# 7.0 1.6-6. 1 high Not Available [address], [address], 04/30/2018 14:43:04 04/30/20 18 04/30/2018 CBC lymph % 14.1 % 19.3-5 1.7 low Not Available [address], [address], 04/30/2018 14:43:04 04/30/20 18 04/30/2018 CBC lymph # 1.3 K/??L 1.2-3. 7 Not Available [address], [address], 04/30/2018 14:43:04 04/30/20 18 04/30/2018 CBC mono% 5.2 % 4.7-12 .5 Not Available [address], [address], 04/30/2018 14:43:04 04/30/20 18 04/30/2018 CBC mono# 0.5 0.2-0. 6 Not Available [address], [address], 04/30/2018 14:43:04 04/30/20 18 04/30/2018 CBC eo% 1.4 % 0.7-5. 8 Not Available [address], [address], 04/30/2018 14:43:04 04/30/20 18 04/30/2018 CBC eo# 0.1 0.0-0. 4 Not Available [address], [address], 04/30/2018 14:43:04 04/30/20 18 04/30/2018 CBC baso% 0.5 % 0.1-1. 2 Not Available [address], [address], 04/30/2018 14:43:04 04/30/20 18 04/30/2018 CBC baso# 0.0 0.0-0. 1 Not Available [address], [address], 04/30/2018 14:43:04 04/30/20 18 04/30/2018 CBC RDW-CV 14.0 % 11.7-1 4.4 Not Available [address], [address], 04/30/2018 14:43:04 04/30/20 18 04/30/2018 TSH, serum or plasm a TSH 2.29 uIU/m L 0.50-6 .00 The Ameri can Colle ge of Endoc rinol ogy and Ameri can Thyro id Assoc iatio n recom mend goal TSH value s betwe en 0.4-4 .0 mIU/m L. Not Available [address], [address], 04/30/2018 16:26:11 06/12/20 18 06/12/2018 CBC w/ auto diff WBC 13.71 K/uL 3.40-1 1.20 high Not Available [facility] [address] [place] [address], [address], 06/12/2018 14:19:14 06/12/20 18 06/12/2018 CBC w/ auto diff RBC 4.19 M/uL 3.80-4 .80 Not Available [facility]) [address] [place] [address], [address], 06/12/2018 14:19:14 06/12/20 18 06/12/2018 CBC w/ auto diff HGB 12.0 g/dL 12.0-1 5.0 Not Available [facility] ([facility]) [address] [place] [address], [address], 06/12/2018 14:19:14 06/12/20 18 06/12/2018 CBC w/ auto diff HCT 35.1 % 36.0-4 6.0 low Not Available [facility] ([facility]) [address] [place] [address], [address], 06/12/2018 14:19:14 06/12/20 18 06/12/2018 CBC w/ auto diff plt 285 K/uL 130-40 0 Not Available [facility]) [address] [place], [address], 06/12/2018 14:19:14 06/12/20 18 06/12/2018 CBC w/ auto diff MCV 83.8 fL 79.0-9 8.0 Not Available [facility] ([facility]) [address] [place], [address], 06/12/2018 14:19:14 06/12/20 18 06/12/2018 CBC w/ auto diff MCH 28.6 pg 27.0-3 4.8 Not Available [facility] ([facility]) [address] [place], [address], 06/12/2018 14:19:14 06/12/20 18 06/12/2018 CBC w/ auto diff MCHC 34.2 g/dL 31.5-3 6.0 Not Available [facility] ([facility]) [address] [place], [address], 06/12/2018 14:19:14 06/12/20 18 06/12/2018 CBC w/ auto diff RDW 13.2 % 10.8-1 4.6 Not Available [facility] ([facility]) [address] [place], [address], 06/12/2018 14:19:14 06/12/20 18 06/12/2018 CBC w/ auto diff MPV 11.6 fL 9.4-12 .4 Not Available [facility]) [address] [place], [address], 06/12/2018 14:19:14 06/12/20 18 06/12/2018 CBC w/ auto diff NRBC 0.00 /100_ WBCs 0.00 Not Available [facility]) [address] [place], [address], 06/12/2018 14:19:14 06/12/20 18 06/12/2018 CBC w/ auto diff absolute NRBC 0.00 K/uL 0.00 Not Available [facility]) [address] [place], [address], 06/12/2018 14:19:14 06/12/20 18 06/12/2018 CBC w/ auto diff diff method Auto Not Available [facility]) [address] [place], [address], 06/12/2018 14:19:14 06/12/20 18 06/12/2018 CBC w/ auto diff neuts 84.8 % 45.30- 77.70 high Not Available [facility]) [address] [place], [address], 06/12/2018 14:19:14 06/12/20 18 06/12/2018 CBC w/ auto diff lymphs 9.0 % 12.30- 39.70 low Not Available [facility]) [address] [place], [address], 06/12/2018 14:19:14 06/12/20 18 06/12/2018 CBC w/ auto diff monos 4.2 % 4.10-1 2.80 Not Available [facility] ([facility]) [address] [place], [address], 06/12/2018 14:19:14 06/12/20 18 06/12/2018 CBC w/ auto diff eos 0.9 % 0-7.2 Not Available [facility]) [address] [place], [address], 06/12/2018 14:19:14 06/12/20 18 06/12/2018 CBC w/ auto diff basos 0.7 % 0-2.80 Not Available [facility] [address] [place], [address], 06/12/2018 14:19:14 06/12/20 18 06/12/2018 CBC w/ auto diff granulocytes , immature (%) 0.4 % 0.0-0. 9 Not Available [facility] [address] [place], [address], 06/12/2018 14:19:14 06/12/20 18 06/12/2018 CBC w/ auto diff absolute neuts 11.63 K/uL 1.40-7 .70 high Not Available [facility]) [address] [place], [address], 06/12/2018 14:19:14 06/12/20 18 06/12/2018 CBC w/ auto diff absolute lymphs 1.24 K/uL 0.60-3 .20 Not Available [facility] ([facility]) [address] [place], [address], 06/12/2018 14:19:14 06/12/20 18 06/12/2018 CBC w/ auto diff absolute monos 0.57 K/uL 0.11-0 .59 Not Available [facility] ([facility]) [address] [place], [address], 06/12/2018 14:19:14 06/12/20 18 06/12/2018 CBC w/ auto diff absolute eos 0.13 K/uL 0.01-0 .50 Not Available [facility] ([facility]) [address] [place], [address], 06/12/2018 14:19:14 06/12/20 18 06/12/2018 CBC w/ auto diff absolute basos 0.09 K/uL 0.00-0 .08 high Not Available [facility] ([facility]) [address] [place] [address], [address], 06/12/2018 14:19:14 06/12/20 18 06/12/2018 CBC w/ auto diff granulocytes , immature 0.05 K/uL 0.00-0 .05 Not Available [facility] [address] [place], [address], 06/12/2018 14:19:14 06/12/20 18 06/12/2018 CMP, serum or plasm a sodium 139 mmol/ L 133-14 6 Not Available [facility] [address] [place], [address], 06/12/2018 15:13:28 06/12/20 18 06/12/2018 CMP, serum or plasm a potassium 4.6 mmol/ L 3.3-5. 1 Not Available [facility] ([facility] [address] [place], [address], 06/12/2018 15:13:28 06/12/20 18 06/12/2018 CMP, serum or plasm a chloride 99 mmol/ L 96-108 Not Available [facility] [address] [place], [address], 06/12/2018 15:13:28 06/12/20 18 06/12/2018 CMP, serum or plasm a CO2 28 mmol/ L 21-35 Not Available [facility] [address] [place], [address], 06/12/2018 15:13:28 06/12/20 18 06/12/2018 CMP, serum or plasm a BUN 22 mg/dL 6-19 high Not Available [facility]) [address] [place], [address], 06/12/2018 15:13:28 06/12/20 18 06/12/2018 CMP, serum or plasm a creatinine 0.90 mg/dL 0.5-1. 5 Not Available [facility] ([facility] [address] [place], [address], 06/12/2018 15:13:28 06/12/20 18 06/12/2018 CMP, serum or plasm a glucose 104 mg/dL 70-99 high Not Available [facility] [address] [place], [address], 06/12/2018 15:13:28 06/12/20 18 06/12/2018 CMP, serum or plasm a albumin 4.4 g/dL 3.9-4. 8 Not Available [facility] [address] [place], [address], 06/12/2018 15:13:28 06/12/20 18 06/12/2018 CMP, serum or plasm a total protein 6.9 g/dL 6.5-8. 0 Not Available [facility] ([facility] [address] [place], [address], 06/12/2018 15:13:28 06/12/20 18 06/12/2018 CMP, serum or plasm a calcium 9.3 mg/dL 8.4-10 .3 Not Available [facility] [address] [place], [address], 06/12/2018 15:13:28 06/12/20 18 06/12/2018 CMP, serum or plasm a alkaline phosphatase 82 U/L 39-117 Not Available [facility] [address] [place], [address], 06/12/2018 15:13:28 06/12/20 18 06/12/2018 CMP, serum or plasm a total bilirubin 0.4 mg/dL 0.0-1. 2 Not Available [facility] ([facility] [address] [place], [address], 06/12/2018 15:13:28 06/12/20 18 06/12/2018 CMP, serum or plasm a AST 16 U/L 0-37 Not Available [facility] [address] [place], [address], 06/12/2018 15:13:28 06/12/20 18 06/12/2018 CMP, serum or plasm a ALT 18 U/L 0-40 Not Available [facility] [address] [place], [address], 06/12/2018 15:13:28 06/12/20 18 06/12/2018 CMP, serum or plasm a globulin 2.5 g/dL 1-4.8 Not Available [facility]) [address] [place] [address], [address], 06/12/2018 15:13:28 06/12/20 18 06/12/2018 CMP, serum or plasm a eGFR 66 mL/mi n/1.7 3m2 >59 If patie nt is black , multi ply resul t by 1.159 . Estim ated glome rular filtr ation rate calcu lated using the CKD-E PI equat ion. Not Available [facility]) [address] [place] [address], [address], 06/12/2018 15:13:28 06/12/20 18 06/12/2018 CMP, serum or plasm a anion gap 17 mmol/ L 10-20 Not Available [facility]) [address] [place] [address], [address], 06/12/2018 15:13:28 06/12/20 18 06/12/2018 C-andra ctive prote in, quant itati ve, serum or plasm a C reactive protein 3.3 mg/L 0.0-4. 0 Not Available [facility]) [address] [place] [address], [address], 06/12/2018 15:13:30 06/12/20 18 06/13/2018 HBsAg (hepa titis B surfa ce Ag), serum HBV surface antigen Negati ve negati ve Not Available [facility]) [address] [place] [address], [address], 06/13/2018 10:03:22 06/12/20 18 06/13/2018 hepat itis B virus core Ab, quali tativ e, serum hep B core Ab, tot Negati ve negati ve Not Available [facility]) [address] [place] [address], [address], 06/13/2018 10:03:24 06/12/20 18 06/14/2018 tb (M [...] a level <0.35 IU/mL . Not Available [facility]) [address] [place] [address], [address], 06/14/2018 19:02:21 06/12/20 18 06/14/2018 tb (M tuber culos is), ifn-g deonte sai , blood TB1 Ag minus nil 0.11 IU/mL Not Available [facility] ([facility]) [address] [place] [address], [address], 06/14/2018 19:02:21 06/12/20 18 06/14/2018 tb (M tuber culos is), ifn-g deonte sai , blood TB2 Ag minus nil 0.00 IU/mL Not Available [facility] ([facility]) [address] [place] [address], [address], 06/14/2018 19:02:21 06/12/20 18 06/14/2018 tb (M tuber culos is), ifn-g deonte sai , blood mitogen minus nil 2.75 IU/mL Not Available [facility] ([facility]) [address] [place], [address], 06/14/2018 19:02:21 06/12/20 18 06/14/2018 tb (M tuber culos is), ifn-g deonte sai , blood nil result 0.01 IU/mL Not Available [facility] ([facility]) [address] [place], [address], 06/14/2018 19:02:21 10/18/19 19 10/17/2018 CBC w/ auto diff WBC 10.03 K/uL 3.40-1 1.20 Not Available [facility] ([facility]) [address] [place] [address], [address], 10/17/2018 15:41:19 10/18/19 19 10/17/2018 CBC w/ auto diff RBC 4.02 M/uL 3.80-4 .80 Not Available [facility] ([facility]) [address] [place] [address], [address], 10/17/2018 15:41:19 10/18/19 19 10/17/2018 CBC w/ auto diff HGB 11.9 g/dL 12.0-1 5.0 low Not Available [facility] ([facility]) [address] [place] [address], [address], 10/17/2018 15:41:19 10/18/19 19 10/17/2018 CBC w/ auto diff HCT 35.2 % 36.0-4 6.0 low Not Available [facility] ([facility]) [address] [place] [address], [address], 10/17/2018 15:41:19 10/18/19 19 10/17/2018 CBC w/ auto diff plt 236 K/uL 130-40 0 Not Available [facility] ([facility]) [address] [place], [address], 10/17/2018 15:41:19 10/18/19 19 10/17/2018 CBC w/ auto diff MCV 87.6 fL 79.0-9 8.0 Not Available [facility] ([facility]) [address] [place], [address], 10/17/2018 15:41:19 10/18/19 19 10/17/2018 CBC w/ auto diff MCH 29.6 pg 27.0-3 4.8 Not Available [facility] ([facility]) [address] [place], [address], 10/17/2018 15:41:19 10/18/19 19 10/17/2018 CBC w/ auto diff MCHC 33.8 g/dL 31.5-3 6.0 Not Available [facility] ([facility]) [address] [place], [address], 10/17/2018 15:41:19 10/18/19 19 10/17/2018 CBC w/ auto diff RDW 12.9 % 10.8-1 4.6 Not Available [facility] ([facility]) [address] [place], [address], 10/17/2018 15:41:19 10/18/1910/17/2018 CBC w/ auto diff MPV 11.0 fL 9.4-12 .4 Not Available [facility] ([facility]) [address] [place], [address], 10/17/2018 15:41:19 10/18/1910/17/2018 CBC w/ auto diff NRBC 0.00 /100_ WBCs 0.00 Not Available [facility] ([facility]) [address] [place], [address], 10/17/2018 15:41:19 10/18/19 19 10/17/2018 CBC w/ auto diff absolute NRBC 0.00 K/uL 0.00 Not Available [facility] ([facility]) [address] [place], [address], 10/17/2018 15:41:19 10/18/19 19 10/17/2018 CBC w/ auto diff diff method Auto Not Available [facility] ([facility]) [address] [place], [address], 10/17/2018 15:41:19 10/18/19 19 10/17/2018 CBC w/ auto diff neuts 70.1 % 45.30- 77.70 Not Available [facility] ([facility]) [address] [place], [address], 10/17/2018 15:41:19 10/18/19 19 10/17/2018 CBC w/ auto diff lymphs 18.2 % 12.30- 39.70 Not Available [facility] ([facility]) [address] [place], [address], 10/17/2018 15:41:19 10/18/19 19 10/17/2018 CBC w/ auto diff monos 7.4 % 4.10-1 2.80 Not Available [facility] ([facility]) [address] [place], [address], 10/17/2018 15:41:19 10/18/1910/17/2018 CBC w/ auto diff eos 2.8 % 0-7.2 Not Available [facility] ([facility]) [address] [place], [address], 10/17/2018 15:41:19 10/18/1910/17/2018 CBC w/ auto diff basos 1.1 % 0-2.80 Not Available [facility] ([facility]) [address] [place], [address], 10/17/2018 15:41:19 10/18/19 19 10/17/2018 CBC w/ auto diff granulocytes , immature (%) 0.4 % 0.0-0. 9 Not Available [facility] ([facility]) [address] [place], [address], 10/17/2018 15:41:19 10/18/19 19 10/17/2018 CBC w/ auto diff absolute neuts 7.03 K/uL 1.40-7 .70 Not Available [facility] ([facility]) [address] [place], [address], 10/17/2018 15:41:19 10/18/19 19 10/17/2018 CBC w/ auto diff absolute lymphs 1.83 K/uL 0.60-3 .20 Not Available [facility] ([facility]) [address] [place], [address], 10/17/2018 15:41:19 10/18/19 19 10/17/2018 CBC w/ auto diff absolute monos 0.74 K/uL 0.11-0 .59 high Not Available [facility] ([facility]) [address] [place], [address], 10/17/2018 15:41:19 10/18/1910/17/2018 CBC w/ auto diff absolute eos 0.28 K/uL 0.01-0 .50 Not Available [facility] ([facility]) [address] [place], [address], 10/17/2018 15:41:19 10/18/1910/17/2018 CBC w/ auto diff absolute basos 0.11 K/uL 0.00-0 .08 high Not Available [facility] ([facility]) [address] [place] [address], [address], 10/17/2018 15:41:19 10/18/19 19 10/17/2018 CBC w/ auto diff granulocytes , immature 0.04 K/uL 0.00-0 .05 Not Available [facility] ([facility]) [address] [place], [address], 10/17/2018 15:41:19 10/18/19 19 10/17/2018 eryth rocyt e sedim entat ion rate by prema gonzalez d ESR 5 mm/h 0-30 Not Available [facility] ([facility]) [address] [place], [address], 10/17/2018 16:22:09 10/18/19 19 10/17/2018 CMP, serum or plasm a sodium 143 mmol/ L 133-14 6 Not Available [facility] (Outpatient) [address] [place], [address], 10/17/2018 16:48:20 10/18/19 19 10/17/2018 CMP, serum or plasm a potassium 4.3 mmol/ L 3.3-5. 1 Not Available [facility] (Outpatient) [address] [place] [address], [id number], 10/17/2018 16:48:20 10/18/19 19 10/17/2018 CMP, serum or plasm a chloride 104 mmol/ L 96-108 Not Available [facility] (Outpatient) [address] [place], [address], 10/17/2018 16:48:20 10/18/19 19 10/17/2018 CMP, serum or plasm a CO2 26 mmol/ L 21-35 Not Available [facility] (Outpatient) [address] [place], [address], 10/17/2018 16:48:20 10/18/19 19 10/17/2018 CMP, serum or plasm a BUN 28 mg/dL 6-19 high Not Available [facility] (Outpatient) [address] [place], [address], 10/17/2018 16:48:20 10/18/19 19 10/17/2018 CMP, serum or plasm a creatinine 1.00 mg/dL 0.5-1. 5 Not Available [facility] (Outpatient) [address] [place], [address], 10/17/2018 16:48:20 10/18/19 19 10/17/2018 CMP, serum or plasm a glucose 127 mg/dL 70-99 high Not Available [facility] (Outpatient) [address] [place], [address], 10/17/2018 16:48:20 10/18/19 19 10/17/2018 CMP, serum or plasm a albumin 4.3 g/dL 3.9-4. 8 Not Available [facility] (Out[facility]) [address] [place], [address], 10/17/2018 16:48:20 10/18/19 19 10/17/2018 CMP, serum or plasm a total protein 6.9 g/dL 6.5-8. 0 Not Available [facility] (Outpatient) [address] [place], [address], 10/17/2018 16:48:20 10/18/19 19 10/17/2018 CMP, serum or plasm a calcium 9.5 mg/dL 8.4-10 .3 Not Available [facility] (Outpatient) [address] [place], [address], 10/17/2018 16:48:20 10/18/19 19 10/17/2018 CMP, serum or plasm a alkaline phosphatase 74 U/L 39-117 Not Available [facility] (Outpatient) [address] [place], [address], 10/17/2018 16:48:20 10/18/19 19 10/17/2018 CMP, serum or plasm a total bilirubin 0.3 mg/dL 0.0-1. 2 Not Available [facility] (Outpatient) [address] [place], [address], 10/17/2018 16:48:20 10/18/19 19 10/17/2018 CMP, serum or plasm a AST 19 U/L 0-37 Not Available [facility] (Out[facility]) [address] [place], [address], 10/17/2018 16:48:20 10/18/19 19 10/17/2018 CMP, serum or plasm a ALT 17 U/L 0-40 Not Available [facility] ([facility]) [address] [place], [address], 10/17/2018 16:48:20 10/18/19 19 10/17/2018 CMP, serum or plasm a globulin 2.6 g/dL 1-4.8 Not Available [facility] ([facility] [address] [place], [address], 10/17/2018 16:48:20 10/18/19 19 10/17/2018 CMP, serum or plasm a eGFR 58 mL/mi n/1.7 3m2 >59 low If patie nt is black , multi ply resul t by 1.159 . Estim ated glome rular filtr ation rate calcu lated using the CKD-E PI equat ion. Not Available [facility] (Out[facility]) [address] [place], [address], 10/17/2018 16:48:20 10/18/19 19 10/17/2018 CMP, serum or plasm a anion gap 17 mmol/ L 10-20 Not Available [facility] ([facility]) [address] [place] [address], [address], 10/17/2018 16:48:20 10/18/19 19 10/17/2018 C-andra ctive prote in, quant itati ve, serum or plasm a C reactive protein 6.2 mg/L 0.0-4. 0 high Not Available [facility] (Out[facility]) [address] [place], [address], 10/17/2018 16:48:21 01/17/20 19 01/16/2019 CBC w/ auto diff WBC 10.98 K/uL 3.40-1 1.20 Not Available [facility] ([facility] [address] [place], [address], 01/16/2019 16:23:22 01/17/20 19 01/16/2019 CBC w/ auto diff RBC 4.04 M/uL 3.80-4 .80 Not Available [facility] (Out[facility]) [address] [place], [address], 01/16/2019 16:23:22 01/17/20 19 01/16/2019 CBC w/ auto diff HGB 11.9 g/dL 12.0-1 5.0 low Not Available [facility] ([facility]) [address] [place], [address], 01/16/2019 16:23:22 01/17/20 19 01/16/2019 CBC w/ auto diff HCT 35.3 % 36.0-4 6.0 low Not Available [facility] ([facility]) [address] [place], [address], 01/16/2019 16:23:22 01/17/20 19 01/16/2019 CBC w/ auto diff plt 274 K/uL 130-40 0 Not Available [facility] ([facility]) [address] [place] [address], [address], 01/16/2019 16:23:22 01/17/20 19 01/16/2019 CBC w/ auto diff MCV 87.4 fL 79.0-9 8.0 Not Available [facility] ([facility]) [address] [place], [address], 01/16/2019 16:23:22 01/17/20 19 01/16/2019 CBC w/ auto diff MCH 29.5 pg 27.0-3 4.8 Not Available [facility] ([facility]) [address] [place], [address], 01/16/2019 16:23:22 01/17/20 19 01/16/2019 CBC w/ auto diff MCHC 33.7 g/dL 31.5-3 6.0 Not Available [facility] ([facility]) [address] [place], [address], 01/16/2019 16:23:22 01/17/20 19 01/16/2019 CBC w/ auto diff RDW 13.3 % 10.8-1 4.6 Not Available [facility] ([facility]) [address] [place], [address], 01/16/2019 16:23:22 01/17/20 19 01/16/2019 CBC w/ auto diff MPV 11.7 fL 9.4-12 .4 Not Available [facility] ([facility]) [address] [place], [address], 01/16/2019 16:23:22 01/17/20 19 01/16/2019 CBC w/ auto diff NRBC 0.00 /100_ WBCs 0.00 Not Available [facility] ([facility]) [address] [place], [address], 01/16/2019 16:23:22 01/17/20 19 01/16/2019 CBC w/ auto diff absolute NRBC 0.00 K/uL 0.00 Not Available [facility] (Out[facility]) [address] [place], [address], 01/16/2019 16:23:22 01/17/20 19 01/16/2019 CBC w/ auto diff diff method Auto Not Available [facility] ([facility]) [address] [place], [address], 01/16/2019 16:23:22 01/17/20 19 01/16/2019 CBC w/ auto diff neuts 81.4 % 45.30- 77.70 high Not Available [facility] ([facility]) [address] [place], [address], 01/16/2019 16:23:22 01/17/20 19 01/16/2019 CBC w/ auto diff lymphs 10.6 % 12.30- 39.70 low Not Available [facility] (Out[facility]) [address] [place], [address], 01/16/2019 16:23:22 01/17/20 19 01/16/2019 CBC w/ auto diff monos 4.7 % 4.10-1 2.80 Not Available [facility] (Out[facility]) [address] [place], [address], 01/16/2019 16:23:22 01/17/20 19 01/16/2019 CBC w/ auto diff eos 2.0 % 0-7.2 Not Available [facility] ([facility]) [address] [place], [address], 01/16/2019 16:23:22 01/17/20 19 01/16/2019 CBC w/ auto diff basos 1.0 % 0-2.80 Not Available [facility] ([facility]) [address] [place], [address], 01/16/2019 16:23:22 01/17/20 19 01/16/2019 CBC w/ auto diff granulocytes , immature (%) 0.3 % 0.0-0. 9 Not Available [facility] ([facility]) [address] [place], [address], 01/16/2019 16:23:22 01/17/20 19 01/16/2019 CBC w/ auto diff absolute neuts 8.94 K/uL 1.40-7 .70 high Not Available [facility] (Out[facility]) [address] [place], [address], 01/16/2019 16:23:22 01/17/20 19 01/16/2019 CBC w/ auto diff absolute lymphs 1.16 K/uL 0.60-3 .20 Not Available [facility] (Out[facility]) [address] [place], [address], 01/16/2019 16:23:22 01/17/20 19 01/16/2019 CBC w/ auto diff absolute monos 0.52 K/uL 0.11-0 .59 Not Available [facility] (Out[facility]) [address] [place], [address], 01/16/2019 16:23:22 01/17/20 19 01/16/2019 CBC w/ auto diff absolute eos 0.22 K/uL 0.01-0 .50 Not Available [facility] (Out[facility]) [address] [place], [address], 01/16/2019 16:23:22 01/17/20 19 01/16/2019 CBC w/ auto diff absolute basos 0.11 K/uL 0.00-0 .08 high Not Available [facility] (Outpatient) [address] [place], [address], 01/16/2019 16:23:22 01/17/20 19 01/16/2019 CBC w/ auto diff granulocytes , immature 0.03 K/uL 0.00-0 .05 Not Available [facility] (Out[facility]) [address] [place], [address], 01/16/2019 16:23:22 01/17/20 19 01/16/2019 eryth rocyt e sedim entat ion rate by prema larsen metho d ESR 9 mm/h 0-30 Not Available [facility] (Outpatient) [address] [place], [address], 01/16/2019 17:39:50 01/17/20 19 01/16/2019 C-andra ctive prote in, quant itati ve, serum or plasm a C reactive protein 5.2 mg/L 0.0-4. 0 high Not Available [facility] (Out[facility]) [address] [place], [address], 01/16/2019 18:50:56 01/17/20 19 01/16/2019 CMP, serum or plasm a sodium 141 mmol/ L 133-14 6 Not Available [facility] ([facility]) [address] [place], [address], 01/16/2019 22:11:00 01/17/20 19 01/16/2019 CMP, serum or plasm a potassium 4.4 mmol/ L 3.3-5. 1 Not Available [facility] (Out[facility]) [address] [place], [address], 01/16/2019 22:11:00 01/17/20 19 01/16/2019 CMP, serum or plasm a chloride 102 mmol/ L 96-108 Not Available [facility] (Out[facility]) [address] [place], [address], 01/16/2019 22:11:00 01/17/20 19 01/16/2019 CMP, serum or plasm a CO2 23 mmol/ L 21-35 Not Available [facility] ([facility]) [address] [place], [address], 01/16/2019 22:11:00 01/17/20 19 01/16/2019 CMP, serum or plasm a BUN 23 mg/dL 6-19 high Not Available [facility] (Outpatient) [address] [place], [address], 01/16/2019 22:11:00 01/17/20 19 01/16/2019 CMP, serum or plasm a creatinine 1.50 mg/dL 0.5-1. 5 Not Available [facility] (Out[facility]) [address] [place], [address], 01/16/2019 22:11:00 01/17/20 19 01/16/2019 CMP, serum or plasm a glucose 161 mg/dL 70-99 high Not Available [facility] (Outpatient) [address] [place], [address], 01/16/2019 22:11:00 01/17/20 19 01/16/2019 CMP, serum or plasm a albumin 4.0 g/dL 3.9-4. 8 Not Available [facility] (Out[facility]) [address] [place], [address], 01/16/2019 22:11:00 01/17/20 19 01/16/2019 CMP, serum or plasm a total protein 6.8 g/dL 6.5-8. 0 Not Available [facility] (Outpatient) [address] [place], [address], 01/16/2019 22:11:00 01/17/20 19 01/16/2019 CMP, serum or plasm a calcium 9.0 mg/dL 8.4-10 .3 Not Available [facility] (Outpatient) [address] [place], [address], 01/16/2019 22:11:00 01/17/20 19 01/16/2019 CMP, serum or plasm a alkaline phosphatase 78 U/L 39-117 Not Available [facility] (Outpatient) [address] [place], [address], 01/16/2019 22:11:00 01/17/2001/16/2019 CMP, serum or plasm a total bilirubin 0.4 mg/dL 0.0-1. 2 Not Available [facility] (Outpatient) [address] [place], [address], 01/16/2019 22:11:00 01/17/2001/16/2019 CMP, serum or plasm a AST 21 U/L 0-37 Not Available [facility] (Outpatient) [address] [place], [address], 01/16/2019 22:11:00 01/17/2001/16/2019 CMP, serum or plasm a ALT 19 U/L 0-40 Not Available [facility] (Outpatient) [address] [place], [address], 01/16/2019 22:11:00 01/17/2001/16/2019 CMP, serum or plasm a globulin 2.8 g/dL 1-4.8 Not Available [facility] (Outpatient) [address] [place], [address], 01/16/2019 22:11:00 01/17/20 19 01/16/2019 CMP, serum or plasm a eGFR 35 mL/mi n/1.7 3m2 >59 low If patie nt is black , multi ply resul t by 1.159 . Estim ated glome rular filtr ation rate calcu lated using the CKD-E PI equat ion. Not Available [facility] (Outpatient) [address] [place], [address], 01/16/2019 22:11:00 01/17/20 19 01/16/2019 CMP, serum or plasm a anion gap 20 mmol/ L 10-20 Not Available [facility] (Outpatient) [address] [place], [address], 01/16/2019 22:11:00 06/12/20 18 06/12/2018 xr chest [...] in the right upper quadra nt. IMPRES LINDSAY: No acute pulmon mercedes proces s. Clear lungs. POS - CDHRAD BOARDW S4 Electr onical ly Signed by: Peggy Altman on 2017 12:27 PM Interp reted by: Peggy Altman MD Signed by: Peggy Altman MD Final result Pt states sob NATALIE CROWELL N [facility] [address] [place], [address], 06/12/2018 20:56:35 09/07/19 19 09/06/2018 bd dxa [...] at the 95% confid ence level. IMPRES LINDSAY: Normal bone minera l densit y with statis ticall y signif icant increa se in bone minera l densit y in the hips since 2001. POS - CDHRAD BOARDW S11 Electr onical ly Signed by: RACHLE JANE on 019 3:21 PM Interp reted by: Rachel Jane MD Signed by: Rachel Jane MD 9 Final result NATALIE Kaur [facility] [address] [place], [address], 09/08/2018 18:43:16 Result Notes None recorded. 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 911322593 Active 2017 admitted to [place]; lamicatal 11/2017 MD [place], [address], [facility] 8 20:36:49 Gastroes ophageal reflux disease 489621356 Active 2018 Kassie Reynolds [facility] 9 15:48:05 Mixed hyperlip idemia 942895737 Active 2001 Natalie Reveles MD [address] [place] [address] Betty Hernán[place], [address], [facility] 6 12:19:12 Colitis, enteriti s and gastroen teritis presumed infectio us 204811444 Completed 200611/06/2009 Natalie Reveles MD [address] [place] [address] Betty Hernán[place], [address], [facility] 6 15:03:24 Nausea 113889126 Completed 200611/06/2009 Natalie Reveles MD [address] [place] [address] Betty Hernán[place], [address], [facility] 6 15:03:24 Essentia l hyperten lindsay 15452659 Completed 200311/06/2009 Natalie Reveles MD [address] [place] [address] Betty Hernán[place], [address], [facility] 6 15:03:24 Nausea and vomiting 48752537 Completed 200611/06/2009 MD Brooklynn Norwood [place] Betty Hernán[place], [address], [facility] 6 15:03:24 Cellulit is and abscess of buttock 067400290 Completed 200011/06/2009 MD [place], [address], [facility] 6 15:03:24 Urinary tract infectio us disease 30047025 Completed 200711/06/2009 Natalie Reveles MD [address] [place] [address] Betty Hernán[place], [address], [facility] 6 15:03:24 Benign essentia l hyperten lindsay 5356366 Active 2001 Natalie Reveles MD [address] [place], [place] [address], [address], [facility] 6 12:19:12 Acute cystitis 93519934 Completed 200411/06/2009 Natalie Reveles MD [address] [place], [place] [address], [address], [facility] 6 15:03:24 Acute pain 544624255 Completed 200711/06/2009 Natalie Reveles MD [address] [place] [address] Betty Hernán[place], [address], [facility] 6 15:03:24 Allergic rhinitis 86610972 Completed 200511/06/2009 Natalie Reveles MD [address] [place] [address] Betty Hernán[place], [address], [facility] 6 15:03:24 Osteoart hritis 129076854 Completed 200711/06/2009 Natalie Reveles MD [address] [place], [place] [address], [address], [facility] 6 15:03:24 Sciatica 24035839 Active 2007 spinal stenosis Natalie Reveles MD [address] [place], [place] [address], [address], [facility] 6 15:03:24 Diabetic on insulin 546121965 Active Natalie Reveles MD [address] [place], [place] [address], [address], [facility] 6 12:19:12 Type 2 diabetes 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 complica tion 336452460 Active 2004 Natalie Reveles MD [address] [place] [address] Betty Hernán[place], [address], [facility] 6 12:19:12 Anemia 590793843 Completed 200611/06/2009 Natalie Reveles MD [address] [place], [place] [address], [address], [facility] 6 15:03:24 Acute maxillar y sinusiti s 00236666 Completed 200311/06/2009 Natalie Reveles MD [address] [place], [place] [address], [address], [facility] 6 15:03:24 Arteriti s 63086788 Completed 200511/06/2009 Natalie Reveles MD [address] [place], [place] [address], [address], [facility] 6 15:03:24 Uncontro lled type 2 diabetes mellitus 597791117 Completed 200606/12/2013 Natalie Reveles MD [address] [place], [place] [address], [address], [facility] 6 15:03:24 Degenera tive joint disease involvin g multiple joints 142805052 Completed 200006/12/2013 Natalie Reveles MD [address] [place], [place] [address], [address], [facility] 6 15:03:24 Hyperlip idemia 82278604 Completed 200111/06/2009 Natalie Reveles MD [address] [place], [place] [address], [address], [facility] 6 15:03:24 Backache 897576767 Completed 200711/06/2009 Natalie Reveles MD [address] [place], [place] [address], [address], [facility] 6 15:03:24 Malaise and fatigue 437624557 Completed 200111/06/2009 [place], [address], [facility] 6 15:03:24 Contact dermatit is 94563255 Completed 11/06/2009 Natalie Reveles MD [address] [place] [address] Betty Hernán[place], [address], [facility] 6 15:03:24 Cough 80355948 Completed 200411/06/2009 Natalie Reveles MD [address] [place] [address] Betty Hernán[place], [address], [facility] 6 15:03:24 Rheumato id arthriti s 37208295 Active sero-nega tive Natalie Reveles MD [address] [place] [address] Betty Hernán[place], [address], [facility] 6 12:19:12 Fever 686055027 Completed 200611/06/2009 Natalie Reveles MD [address] [place] [address] Betty Hernán[place], [address], [facility] 6 15:03:24 Allergic asthma without status asthmati cus 87845748 Active 2002 Natalie Reveles MD [address] [place] [address] Betty Hernán[place], [address], [facility] 6 15:03:24 Acute sinusiti s 39457151 Completed 05/14/2013 Natalie Reveles MD [address] [place] [address] Betty Hernán[place], [address], [facility] 6 15:03:24 Common cold 74823633 Completed 200211/06/2009 Natalie Reveles MD [address] [place] [address] Betty Hernán[place], [address], [facility] 6 15:03:24 Common cold 66635426 Completed 05/14/2013 Natalie Reveles MD [address] [place] [address] Betty Hernán[place], [address], [facility] 6 15:03:24 On examinat ion - a rash Completed 200511/06/2009 Natalie Reveles MD [address] [place], [place] [address], [address], [facility] 6 15:03:24 General symptom 401193360 Completed 200611/06/2009 Natalie Reveles MD [address] [place], [place] [address], [address], [facility] 6 15:03:24 Blood chemistr y outside referenc e range 524757222 Completed 200311/06/2009 Natalie Reveles MD [address] [place], [place] [address], [address], [facility] 6 15:03:24 Hypothyr oidism 88208129 Completed 200607/22/2015 Natalie Reveles MD [address] [place], [place] [address], [address], [facility] 6 15:03:24 Mononeur itis 49534967 Active 2003 Natalie Reveles MD [address] [place], [place] [address], [address], [facility] 6 15:03:24 Primary fibromya lgia syndrome 19757247 Completed 200211/06/2009 Natalie Reveles MD [address] [place], [place] [address], [address], [facility] 6 15:03:24 Vaginiti s and vulvovag initis Completed 200011/06/2009 Natalie Reveles MD [address] [place], [place] [address], [address], [facility] 6 15:03:24 Problem Notes None recorded. [...] chest Pa and lateral 2 views completed [facility] [address] [place], [address], 06/12/2018 20:56:35 09/06/2018 bd dxa axial (spine) with hip completed [facility] [address] [place], [address], 09/08/2018 18:43:16 Procedure Notes None recorded. Medical Equipment None Reported. Allergies Allergen ID Allergen Name Allergen Category Reaction Reaction Severity Criticality Documentation Date Start Date Code Code System Note Provider Name and Address Organization Details Recorded Time 689991 doxycycli ne Not available nausea Not available Not available 11/27/2013 3640 RxNorm Kacey Espinoza MA [facility] 4 10:10:57 365865 codeine medicatio n nausea Not available Not available 08/17/2015 2670 RxNorm Angelica Hicks CMA [facility] 6 16:23:36 87633 Substance with sulfonami de structure and antibacte rial mechanism of action (substanc e) medicatio n hives Not available Not available 06/29/2010 36883 8003 SNOMED Not Available [facility] 1 06:05:41 Medications Name Sig Start Date [...] day by oral route for 10 days. 04/07/ 2014 04/17 /2014 completed Not Available Not Available Not Available [...] EVERY DAY AT BEDTIME 11/13 completed per [facility] d/c 11/08/17 new dose as follows: [...] diab. bw done 07/07/08 PHA 11/05/07- exsistin maximiliano scott for 2008 pha Not Available Not Available [...] e Philly Pen Needle 32 gauge x USE TO INJECT INSULIN QID active Not [...] Updated DateTime 8 147.95 cm 35.9 kg/m2 44485.1 8 g 80 /min 97 % 97 % 126 mm[Hg] 74 mm[Hg] Sarah Jewell [facility] 8 10:50:58 Date Recorded Body height Body mass index (BMI) Body weight Heart rate Systolic blood pressure Diastolic blood pressure Provider Name and Address Organization Details Last Updated DateTime 9 147.95 cm 35.7 kg/m2 80143.6 9 g 64 /min 90 mm[Hg] 54 mm[Hg] Marcia Baron MA [facility] 9 11:24:40 Date Recorded Body height Body mass index (BMI) Body weight Oxygen saturation Oxygen saturation in Arterial blood by Pulse oximetry Heart rate Systolic blood pressure Diastolic blood pressure Provider Name and Address Organization Details Last Updated DateTime 9 147.95 cm 36.3 kg/m2 51364.7 6 g 96 % 96 % 76 /min 120 mm[Hg] 62 mm[Hg] Sarah Jweell MA [facility] 9 [...] Updated DateTime 9 147.95 cm 35.9 kg/m2 60412.5 8 g 97.9 [degF] 88 /min 96 % 96 % 114 mm[Hg] 62 mm[Hg] [facility] 9 09:44:29 Social History Question Answer Notes LastModified by Organizat ion Details LastModified Time Tobacco Smoking Status Never Smoker Not Available [facility] 05/11/2011 04:54:19 Do You Have An Advance Directive? No Information not available 12/11/2013 What Is Your Level Of Alcohol Consumption? Occasional Once Yearly Maybe [email or web address] Information not available 12/31/2018 Do You Wear A Helmet When Biking? No Information not available 06/23/2014 What Is Your Level Of Caffeine Consumption? 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 0 Information not available 11/30/2016 Are There Any Guns Present In Your Home? No [id number] Information not available 05/11/2011 Live Alone Or With Others? With Others Sister, Uncle, Brother In Law [email or web address] Information not available 06/12/2013 CSRP - Narcotics No Information not available 06/23/2014 CSRP Contract Signed And Discussed No Information not available 06/23/2014 Patient Has Health Care Proxy Signed And [...] toxoid, unspecified formulation 1 completed Not Available [facility] 07/12/2019 02:34:13 influenza, unspecified formulation 0 completed Not Available [facility] 05/10/2011 05:22:52 Influenza, split virus, trivalent, preservative 1 completed Mary Watts MA [facility] 05/17/2011 14:09:08 Tdap 1 completed Fang Robison RN [facility] 06/12/2011 16:12:51 influenza, unspecified formulation 2 [place] [place] [place] 05/21/2012 16:38:35 influenza, unspecified formulation 3 completed Mary Finley MA [facility] 06/12/2013 16:12:54 influenza, unspecified formulation 4 [place] [place] 06/23/2014 15:26:51 influenza, unspecified formulation 5 [place] [place] 04/29/2015 14:13:29 Pneumococcal conjugate PCV 13 8 completed Not Available [facility] 07/12/2019 02:22:36 Hep B, adult 9 completed Not Available [facility] 07/12/2019 02:34:54 influenza, unspecified formulation 6 completed Not Available [facility] [facility] 07/26/2019 02:10:42 pneumococcal polysaccharide PPV23 9 completed Not Available [facility] 07/12/2019 02:24:02 Influenza, split virus, quadrivalent, preservative 7 completed Liz Boyce CMA [facility] 05/03/2017 14:36:38 Past Encounters Encounter ID Performer Location Encounter Start Date Encounter Closed Date Diagnosis/Indication Diagnosis SNOMED-CT Code Diagnosis ICD10 Code Diagnosis Note [id number] [facility], OFFICE [address] [place] [address] 09/14/2000 12:00:00 07/15/2008 02:02:29 [id number] [facility], OFFICE [address] [place] [address] 6 10/16/2000 10:45:00 07/15/2008 02:02:29 [id number] [facility], OFFICE [address] [facility] [place] [address] 6 02/28/2001 14:15:00 07/15/2008 02:02:29 [id number] [facility], OFFICE [address] [facility] [place] [address] 6 03/01/2001 09:45:00 07/15/2008 02:02:29 [id number] [facility], OFFICE [address] [facility] [place] [address] 6 10/22/2001 09:00:00 07/15/2008 02:02:29 [id number] LAB - [facility] [address] [place] [address] 6 10/22/2001 10:30:00 07/15/2008 02:02:29 [id number] RAJEEV [facility], OFFICE [address] [facility] [place] [address] 6 12/02/2001 08:19:54 07/15/2008 02:02:29 [id number] Radiology , [facility] [address] [place] [address] 12/02/2001 11:21:25 07/15/2008 02:02:29 [id number] LAB - [facility] 70 [facility] [place] [address] 6 04/24/2002 08:28:24 07/15/2008 02:02:29 [id number] RAJEEV [facility], OFFICE [address] [facility] [place] [address] 6 04/30/2002 16:42:20 07/15/2008 02:02:29 [id number] LAB - [facility] 70 [facility] [place] [address] 6 07/22/2002 09:02:09 07/15/2008 02:02:29 [id number] [facility], OFFICE [address] [facility] [place] [address] 6 07/29/2002 16:39:59 07/15/2008 02:02:29 [id number] RAJEEV [facility], OFFICE [address] [facility] [place] [address] 6 10/30/2002 11:15:27 07/15/2008 02:02:29 [id number] LAB - [facility] 70 [facility] [place] [address] 6 10/30/2002 12:12:41 07/15/2008 02:02:29 [id number] RAJEEV [facility], OFFICE [address] [facility] [place] [address] 6 12/31/2002 10:02:51 07/15/2008 02:02:29 [id number] LAB - [facility] [address] [place] [address] 6 12/31/2002 00:00:00 07/15/2008 02:02:29 [id number] LAB - [address] [place] [address] 01/13/2003 11:28:31 07/15/2008 02:02:29 [id number] Radiology , [facility] [address] [place] [address] 1 01/15/2003 08:55:54 07/15/2008 02:02:29 [id number] RAJEEV [facility], OFFICE [address] [facility] [place] [address] 6 07/03/2003 16:41:59 07/04/2003 10:51:01 [id number] RAJEEV [facility], OFFICE [address] [facility] [place] [address] 6 10/13/2003 14:52:44 10/14/2003 08:39:08 [id number] LAB - [facility] [address] [place] [address] 6 10/22/2003 08:14:06 10/22/2003 08:14:10 [id number] RAJEEV [facility], OFFICE [address] [facility] [place] [address] 6 12/10/2003 14:34:40 12/12/2003 13:55:58 [id number] LAB - [facility] [address] [place] [address] 6 03/30/2004 08:05:15 03/30/2004 08:05:20 [id number] RAJEEV [facility], OFFICE [address] [facility] [place] [address] 6 07/04/2004 13:43:22 07/04/2004 17:14:21 [id number] RAJEEV [facility], OFFICE [address] [facility] [place] [address] 6 07/26/2004 09:25:43 07/27/2004 08:19:25 [id number] RAJEEV [facility], OFFICE [address] [facility] [place] [address] 6 08/08/2004 15:52:00 08/09/2004 08:55:32 [id number] RAJEEV [facility], OFFICE [address] [place] [address] 6 09/05/2004 07:59:25 09/05/2004 15:25:12 [id number] FP, [facility], OFFICE [address] [place] [address] 6 09/19/2004 13:51:52 09/19/2004 17:45:01 [id number] LAB - [facility] [address] [place] [address] 6 10/05/2004 08:38:59 10/05/2004 08:39:04 [id number] , [facility], OFFICE [address] [place] [address] 6 10/10/2004 07:58:34 10/10/2004 14:31:17 [id number] [facility], OFFICE [address] [place] [address] 6 11/03/2004 13:44:09 07/15/2008 02:02:29 [id number] LAB - [facility] [address] [place] [address] 6 01/16/2005 08:22:10 01/16/2005 08:22:26 [id number] [facility], OFFICE [address] [place] [address] 6 01/24/2005 08:00:36 07/15/2008 02:02:29 [id number] Radiology , [facility] [address] [place] [address] 6 02/13/2005 11:40:53 07/15/2008 02:02:29 [id number] Radiology , [facility] [address] [place] [address] 6 02/13/2005 00:00:00 07/15/2008 02:02:29 [id number] [facility], OFFICE [address] [place] [address] 6 04/12/2005 08:22:15 07/15/2008 02:02:29 [id number] , [facility], OFFICE [address] [place] [address] 6 04/28/2005 16:18:32 07/15/2008 02:02:29 [id number] LAB - [facility] [address] [place] [address] 6 08/22/2005 08:28:59 08/22/2005 08:29:02 [id number] [facility], OFFICE [address] [place] [address] 6 08/28/2005 15:40:14 08/29/2005 08:44:57 [id number] [facility], OFFICE [address] [place] [address] 6 09/21/2005 14:22:16 07/15/2008 02:02:29 [id number] LAB - [facility] LISANDRO Banks62-[address] 6 09/21/2005 15:10:47 09/21/2005 15:11:05 [id number] LAB - [facility] LISANDRO Banks62-[address] 6 01/23/2006 08:32:14 01/23/2006 08:32:24 [id number] [facility], OFFICE [address] LISANDRO SANTA62-[address] 6 02/05/2006 11:04:33 02/06/2006 09:17:09 [id number] [facility], OFFICE [address] [place] [address] 6 03/21/2006 10:05:20 03/22/2006 08:20:24 [id number] [facility], OFFICE 70 LISANDRO SANTA62[address] 6 04/04/2006 11:34:15 04/08/2006 09:14:42 [id number] LAB - [facility] [address] 6 04/25/2006 08:18:53 04/25/2006 08:19:04 [id number] [facility], OFFICE [address] [place] [address] 6 05/03/2006 09:59:10 05/04/2006 08:46:05 [id number] Radiology , [facility] [address] 6 05/08/2006 08:08:08 07/15/2008 02:02:29 [id number] Radiology , [facility] [address] [place] [address] 6 05/08/2006 00:00:00 07/15/2008 02:02:29 [id number] [facility], OFFICE [address] [place] [address] 6 07/31/2006 08:56:23 07/31/2006 14:16:09 [id number] LAB - [facility] [address] [place] [address] 6 07/31/2006 10:36:02 07/31/2006 10:36:06 [id number] RAJEEV [facility], OFFICE 70 LISANDRO SANTA62[address] 6 08/07/2006 08:36:04 08/08/2006 08:58:07 [id number] LAB - [facility] LISANDRO Banks62-146 6 10/22/2006 08:25:40 10/22/2006 08:25:45 [id number] RAJEEV [facility], OFFICE 70 LISANDRO SANTA62-[address] 6 10/29/2006 07:59:04 10/29/2006 10:37:03 [id number] LAB - [facility] 70 LISANDRO Maldonado62-[address] 6 10/30/2006 08:27:25 10/30/2006 08:27:30 [id number] RAJEEV [facility], OFFICE 70 LISANDRO SANTA62-[address] 6 11/26/2006 10:44:18 11/26/2006 15:10:48 [id number] LAB - [facility] LISANDRO Banks62-146 6 11/26/2006 11:29:37 11/26/2006 11:29:44 [id number] RAJEEV [facility], OFFICE 70 LISANDRO SANTA62-146 6 12/06/2006 14:26:14 12/07/2006 08:30:34 [id number] RAJEEV [facility], OFFICE 70 LISAN[place]O SANTA62-146 6 12/10/2006 13:46:03 12/11/2006 09:05:34 [id number] LAB - [facility] LISANDRO Banks62-146 6 12/10/2006 14:31:03 12/10/2006 14:31:43 [id number] LAB - [facility] LISANDRO Banks62-146 6 01/04/2007 07:54:29 01/04/2007 07:54:36 [id number] LAB - [facility] LISANDRO Banks62-146 6 04/08/2007 08:14:44 04/08/2007 08:14:49 [id number] RAJEEV [facility], OFFICE [address] [place] [address] 6 04/15/2007 16:27:24 04/18/2007 08:58:27 [id number] [facility] 70 LISANDRO Maldonado62-146 6 06/29/2007 09:23:36 07/01/2007 09:13:11 [id number] RAJEEV [facility], OFFICE 70 LISANDRO SANTA62-146 6 09/20/2007 14:25:55 07/15/2008 02:02:29 [id number] RAJEEV [facility], OFFICE [address] [place] [address] 6 10/08/2007 14:05:16 07/15/2008 02:02:29 [id number] LAB - [facility] 70 LISANDRO Maldonado62-146 6 10/29/2007 08:19:39 10/29/2007 08:19:43 [id number] RAJEEV [facility], OFFICE 70 LISANDRO SANTA62-146 6 11/05/2007 09:43:59 07/15/2008 02:02:29 [id number] LAB - [facility] LISANDRO Banks62-146 6 11/12/2007 08:23:38 11/12/2007 08:23:44 [id number] LAB - [facility] LISANDRO Banks62-146 6 01/17/2008 12:48:01 01/17/2008 12:48:16 [id number] RAJEEV [facility], OFFICE [address] [place] [address] 6 01/24/2008 14:09:47 07/15/2008 02:02:29 [id number] LAB - [facility] [address] 6 01/24/2008 15:39:37 01/24/2008 15:40:02 [id number] LAB - [facility] [address] 6 01/24/2008 00:00:00 07/15/2008 02:02:29 [id number] [facility], OFFICE [address] [place] [address] 6 03/30/2008 10:44:06 07/15/2008 02:02:29 [id number] Physical Therapy, [facility] LIS[place]DRO Banks62-[address] 6 03/31/2008 11:58:11 04/01/2008 09:12:25 [id number] Physical Therapy, [facility] LISANDRO Banks62-146 6 04/02/2008 08:36:13 04/02/2008 16:25:15 [id number] Physical Therapy, [facility] [address] 6 04/07/2008 08:34:12 04/07/2008 14:43:31 [id number] Physical Therapy, [facility] Maribeth [facility] [place] [address] 6 04/09/2008 08:37:17 04/09/2008 15:42:30 [id number] Physical [facility], [facility] Maribeth [facility] [place] [address] 6 04/14/2008 08:31:29 04/14/2008 14:21:06 [id number] LAB - [facility] Maribeth [facility] [place] [address] 6 07/07/2008 11:15:56 07/07/2008 11:16:03 [id number] [facility], OFFICE 70 [place] [address] 6 07/14/2008 13:28:43 07/24/2008 13:00:23 [id number] Radiology , [address] [place] [address] 6 12/19/2008 08:52:20 12/22/2008 14:08:26 [id number] [facility], OFFICE [address] [place] [address] 6 06/24/2009 14:39:32 06/24/2009 16:02:12 [id number] [facility], OFFICE [address] [place] [address] 6 10/25/2009 13:26:11 11/10/2009 13:32:16 [id number] Radiology , [facility] 70 [place] [address] 6 10/25/2009 14:29:01 10/26/2009 11:21:38 [id number] [facility], OFFICE [address] [place] [address] 6 06/29/2010 11:23:06 07/26/2010 11:56:31 [id number] [facility], OFFICE [address] [place] [address] 6 09/22/2010 13:34:57 09/22/2010 17:04:13 [id number] [facility], OFFICE [address] [place] [address] 6 04/05/2011 09:42:34 04/05/2011 10:07:18 [id number] [facility], OFFICE [address] [place] [address] 6 04/10/2011 09:24:01 04/11/2011 11:28:27 [id number] [facility], OFFICE 70 [place] [address] 6 05/17/2011 13:46:28 05/17/2011 15:12:35 [id number] [facility] , [facility] 70 [place] [address] 6 05/17/2011 14:58:54 05/22/2011 15:07:56 [id number] [facility], OFFICE [address] [place] [address] 6 05/26/2011 16:22:49 05/29/2011 14:16:46 [id number] [facility], OFFICE [address] [place] [address] 6 11/21/2011 11:10:29 11/21/2011 12:20:19 [id number] Natalie Reveles MD [facility], OFFICE [address] [place] [address] 6 05/21/2012 15:50:05 05/21/2012 17:16:10 [id number] ENRIKE Haq , [facility], OFFICE [address] [place] [address] 6 08/06/2012 09:44:43 08/06/2012 10:34:24 [id number] Natalie Reveles MD [facility], OFFICE [address] [place] [address] 6 11/01/2012 15:29:43 11/04/2012 10:55:05 [id number] Natalie Reveles MD [facility], OFFICE [address] [place] [address] 6 02/21/2013 11:09:19 02/21/2013 12:15:52 Benign essential hypertension 4836798 continue to work on diet ,exercisea nd lowering salt intake as discussed Mixed hyperlipidemia 438749427 continue to work on diet and exercise as discussed Diabetic on insulin 630334903 Rheumatoid arthritis 56820593 [id number] Kacey Espinoza MA , [facility], OFFICE [address] [place] [address] 6 06/12/2013 15:53:14 06/12/2013 17:00:00 Benign essential hypertension 0548224 continue to work on diet ,exercisea nd lowering salt intake as discussed Mixed hyperlipidemia 118122050 continue to work on diet and exercise as discussed Adult [facility] th examination [id number] see Risk Assessment and Lifestyle Change Counseling section above Diabetic on insulin 533837799 Neuropathy due to diabetes mellitus 602691872 Mononeuritis 68678636 Rheumatoid arthritis 28868288 [id number] Mary Finley MA , [facility], OFFICE [address] [place] [address] 6 06/19/2013 13:36:30 06/19/2013 14:00:11 Acute sinusitis 14325318 sx tx including afrin- strt ab if no relief Common cold 61345103 Upp er Respirator y Infection Drink plenty [...] days, or you have a high fever. [id number] Mary Finley MA , [facility], OFFICE [address] [place] [address] 09/23/2013 13:47:10 09/24/2013 10:04:00 Sinusitis 03486088 [id number] Yusuf Song MA , [facility], OFFICE [address] [place] [address] 6 09/29/2013 16:41:29 09/30/2013 09:41:00 Acute sinusitis 72249675 [id number] LISANDRO Perla, [facility], OFFICE [address] [place] [address] 6 11/27/2013 09:59:23 11/27/2013 16:10:44 Cough 86859266 [id number] LISANDRO Cates, [facility], OFFICE [address] [place] [address] 6 12/11/2013 14:25:08 12/11/2013 15:34:31 Benign essential hypertension 9572872 continue to work on diet ,exercisea nd lowering salt intake as discussed Mixed hyperlipidemia 569252026 continue to work on diet and exercise as discussed Neuropathy due to diabetes mellitus 779770046 Diabetic on insulin 700938010 [id number] Natalie Reveles MD , [facility], OFFICE [address] [place] [address] 6 06/23/2014 15:01:46 06/23/2014 16:03:39 Spinal stenosis of lumbar region 87363896 Neuropathy due to diabetes mellitus 260913549 Diabetic on insulin 154236975 Allergic a sthma without status asthmaticus 55263211 Mixed hyperlipidemia 812283557 continue to work on diet and exercise as discussed Mononeuritis 93633815 Rheumatoid arthritis 90108569 Type 2 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 929577335 [id number] Mary Finley MA , [facility], OFFICE [address] [place] [address] 6 12/31/2014 14:26:47 12/31/2014 15:36:09 Benign essential hypertension 6401456 continue to work on diet, exercise, and lowering salt intake as discussed Blood pressure at goal Mixed hyperlipidemia 684469940 continue to work on diet and exercise as discussed Diabetic on insulin 493699568 Rheumatoid arthritis 99841222 [id number] Natalie Reveles MD , [facility], OFFICE [address] [place] [address] 6 04/29/2015 13:53:38 04/29/2015 14:45:02 Benign essential hypertension 0242037 I10 continue to work on diet, exercise, and lowering salt intake as discussed Mixed hyperlipidemia 267 474892 E78.2 continue to work on diet and exercise as discussed Diabetic on insulin 1707 82497 Z79.4 Type 2 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 574491043 E11.9 Neuropathy due to diabetes mellitus 441075505 E11.42 Allergic a sthma without status asthmaticus 27013926 J45.909 Rheumatoid arthritis 698 08371 M06.9 [id number] Natalie Reveles MD , [facility], OFFICE [address] [place] [address] 07/22/2015 14:47:13 07/22/2015 15:54:33 Benign essential hypertension 2576531 I10 Blood pressure at goal continue to work on diet, exercise, and lowering salt intake as discussed Mixed hyperlipidemia 267 781616 E78.2 continue to work on diet and exercise as discussed Adult heal th examination 552512917 Z00.00 see Risk Assessment and Lifestyle Change Counseling section above Neuropathy due to diabetes mellitus 237200690 E11.42 Diabetic on insulin 1707 43821 Z79.4 Hypothyroidism 25513859 E03.9 Rheumatoid arthritis 698 13073 M06.9 Spinal shara nosis of lumbar region 41045704 M48.06 Type 2 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 787895389 E11.9 [id number] Nilam Duane , [facility], OFFICE [address] [place] [address] 08/17/2015 16:10:28 08/17/2015 16:58:40 Acute sinusitis 26424400 J01.90 Eczema 86814431 L30.9 Asthma 324057443 J45.90 9 Allergic rhinitis 688747 04 J30.9 [id number] Natalie Reveles MD , [facility], OFFICE [address] [place] [address] 6 11/23/2015 14:02:11 11/23/2015 15:24:07 Benign essential hypertension 1541033 I10 Blood pressure at goal continue to work on diet, exercise, and lowering salt intake as discussed Mixed hyperlipidemia 267 713309 E78.2 Cholestero l is at goal Continue to work on diet and exercise as discussed Neuropathy due to diabetes mellitus 763280748 E11.42 Rheumatoid arthritis 698 13613 M06.9 Type 2 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 213292229 E11.9 Diabetic on insulin 1707 56847 Z79.4 [id number] Natalie Reveles MD , [facility], OFFICE [address] [place] [address] 03/23/2016 14:19:29 03/23/2016 15:26:40 Benign essential hypertension 9883526 I10 Blood pressure at goal Blood pressure NOT at goal. Mixed hyperlipidemia 267 306212 E78.2 continue to work on diet and exercise as discussed Sinusitis 20155741 J32.9 Eczema 17279242 L30.9 Diabetic on insulin 1707 63422 Z79.4 Mononeuritis 34530498 G5 8.9 Rheumatoid arthritis 698 19102 M06.9 [id number] Natalie Reveles MD , [facility], OFFICE [address] [place] [address] 06/13/2016 14:40:53 06/13/2016 15:36:21 Acute sinusitis 91422287 J01.90 [id number] Natalie Reveles MD , [facility], OFFICE [address] [place] [address] 11/30/2016 13:57:42 11/30/2016 15:08:02 Diabetic on insulin 353367522 Z79.4 Type 2 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 494415628 E11.9 Mixed hyperlipidemia 267 983743 E78.2 continue to work on diet and exercise as discussed Acute sinusitis 69552149 J01.90 [id number] Natalie Reveles MD , [facility], OFFICE [address] [place] [address] 12/25/2016 09:20:57 12/25/2016 10:34:52 Adult health examination 356083327 Z00.00 see Risk Assessment and Lifestyle Change Counseling section above Counseling 900888386 Z71 .9 Mixed hyperlipidemia 267 328541 E78.2 continue to work on diet and exercise as discussed Benign ess ential hypertension 1118666 I10 Blood pressure at goal and re Mononeuritis 60362030 G5 8.9 Sciatica 56601119 M54.30 Diabetic on insulin 1707 59351 Z79.4 Rheumatoid arthritis 698 92189 M06.9 Neuropathy due to diabetes mellitus 898117357 E11.42 Hearing loss 85936561 H9 1.90 [id number] Natalie Reveles MD , [facility], OFFICE [address] [place] [address] 6 05/03/2017 14:27:16 05/03/2017 15:21:54 Benign essential hypertension 9278932 I10 Blood pressure at goal . Mixed hyperlipidemia 267 666956 E78.2 continue to work on diet and exercise as discussed Sciatica 40160769 M54.30 Type 2 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 822643709 E11.9 Diabetic on insulin 1707 74806 Z79.4 Rheumatoid arthritis 698 44418 M06.9 [id number] Edgar Murray MD , [facility], [address] [place] [address] 06/27/2017 15:27:55 06/27/2017 15:57:15 Acute sinusitis 45958158 J01.90 discussed tx options,. At this point will tx with abx, probiotics , nasal rinses and rest. RTC prn [id number] Mami Bernstein MD , [facility], [address] [place] [address] 08/02/2017 13:49:47 08/02/2017 14:54:19 Allergic asthma without status asthmaticus 27149498 J45.909 feels diminished and wheezingbr eath sounds goodafter neb a bit improvedpe ak flows lower range, not much changesubj ectively feels easier to deep breath after nebulizerb ut albuterol makes her jittery and she avoids it when possiblesh ort term trial inhaled steroidcon tinue proair as neededf/u if not improving Acute uppe r respiratory infection 79262092 J06.9 Kriss is presenting today with recurrent URI sxthis does sound like a new viral URI and not pna or recurrent sinus infections upportive instr giventx coughaugme nt asthma mgmt [id number] Natalie Reveles MD , [facility], [address] [place] [address] 09/13/2017 14:23:47 09/13/2017 15:31:30 Benign essential hypertension 1541846 I10 Blood pressure at goal Mixed hyperlipidemia 267 235651 E78.2 continue to work on diet and exercise as discussed Sciatica 70192251 M54.30 Type 2 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 215532710 E11.9 Mononeuritis 46465196 G5 8.9 Rheumatoid arthritis 698 59500 M06.9 Diabetic on insulin 1707 34950 Z79.4 Anemia 511989664 D64.9 Asthma 529765846 J45.90 9 Active or passive immunization 599554895 Z23 [id number] , [facility], [address] [place] [address] 11/13/2017 14:08:31 11/13/2017 14:54:27 Transient cerebral ischemia 346232584 G45.9 Diabetic on insulin 1707 20218 Z79.4 [id number] Natalie Reveles MD , [facility], [address] [place] [address] 12/27/2017 14:34:57 12/27/2017 16:04:03 Adult health examination 799639234 Z00.00 see Risk Assessment and Lifestyle Change Counseling section above Counseling 419126800 Z71 .9 Depression screening 171 253701 Z13.89 depression screening tool administer ed, entered into emr, scored and discussed, time greater than 7.5 minutes Focal onse t impaired awareness epileptic seizure 494533834 G40.209 Benign ess ential hypertension 4424071 I10 Blood pressure at goal Sciatica 06815700 M54.30 Mixed hyperlipidemia 267 466496 E78.2 continue to work on diet and exercise as discussed Type 2 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 887670583 E11.9 Allergic a sthma without status asthmaticus 89341086 J45.909 Diabetic on insulin 1707 22135 Z79.4 Rheumatoid arthritis 698 39966 M06.9 Neuropathy due to diabetes mellitus 317527204 E11.42 Screening mammography 24 926390 Z12.31 Active or passive immunization 516298193 Z23 [id number] Natalie Revlees MD , [facility], [address] [place] [address] 04/30/2018 10:39:49 04/30/2018 11:23:30 Counseling 027695248 Z71.9 Benign ess ential hypertension 9844133 I10 Blood pressure at goal Mixed hyperlipidemia 267 884378 E78.2 continue to work on diet and exercise as discussed Focal onse t impaired awareness epileptic seizure 526431687 G40.209 Sciatica 87872855 M54.30 Type 2 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 781516913 E11.9 Mononeuritis 63567734 G5 8.9 Diabetic on insulin 1707 69235 Z79.4 Rheumatoid arthritis 698 02971 M06.9 Allergic a sthma without status asthmaticus 64860654 J45.909 Intolerant of ambient temperature 681165477 R68.89 [id number] Sil Carvajal , [facility], [address] [place] [address] 07/04/2018 09:15:51 07/04/2018 09:27:41 Active or passive immunization 521904606 Z23 [id number] Natalie Reveles MD , [facility], [address] [place] [address] 08/29/2018 11:16:37 08/30/2018 10:37:41 Acute sinusitis 51820509 J01.90 Benign ess ential hypertension 3121215 I10 Blood pressure at goal Type 2 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 808951505 E11.9 Mononeuritis 12990174 G5 8.9 Rheumatoid arthritis 698 63928 M06.9 [id number] Natalie Reveles MD , [facility], [address] [place] [address] 12/31/2018 14:40:49 12/31/2018 16:07:09 Adult health examination 731093917 Z00.00 see Risk Assessment and Lifestyle Change Counseling section above Counseling 590462237 Z71 .9 Depression screening 171 827075 Z13.89 depression screening tool administer ed, entered into emr, scored and discussed, time greater than 7.5 minutes Mixed hyperlipidemia 267 388481 E78.2 Focal onse t impaired awareness epileptic seizure 527422106 G40.209 Benign ess ential hypertension 6463630 I10 Blood pressure at goal Sciatica 95963859 M54.30 Type 2 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 065495747 E11.9 Allergic a sthma without status asthmaticus 05891215 J45.909 Diabetic on insulin 1707 32410 Z79.4 Rheumatoid arthritis 698 11136 M06.9 Gastroesop hageal reflux disease 777159343 K21.9 Active or passive immunization 770945157 Z23 Neuropathy due to diabetes mellitus 037510491 E11.42 [id number] Natalie Reveles MD , [facility], [address] [place] [address] 02/20/2019 09:32:43 02/20/2019 10:11:54 Acute sinusitis 69874058 J01.90 Health Concerns Section Related Observation LastModified by Organization Detai ls LastModified Time None Recorded Concern Status LastModified by Organization Details LastModified Time None Recorded Advance Directives Directive N: Payers Encounter Date Sequence Insurance Name Policy Number Policy Samuel Covered Member ID Samuel Member ID Guarantor Name 04/30/2018 1 [place] [employer] Kriss Jackson [id number] Kriss Jackson 04/30/2018 2 [place] [id number] Kriss Jackson [id number] Kriss Jackson 07/04/2018 1 [place] [employer] Kriss Jackson [id number] Kriss Jackson 07/04/2018 2 [place] [id number] Kriss Jackson [id number] Kriss A Young 08/29/2018 1 [place] [facility] GOVERNMENT SERVICES Kriss Jackson [id number] Kriss Keys Young 08/29/2018 2 [place] [id number] Kriss Jackson [id number] Kriss Keys Young 12/31/2018 1 [place] [facility] GOVERNMENT SERVICES Kriss Jackson [id number] Kriss A Young 12/31/2018 2 [place] [id number] Krissjuan Jackson [id number] Kriss A Young 02/20/2019 1 [place] [facility] Kriss Jackson [id number] Kriss A Young 02/20/2019 2 [place] [id number] Kriss Jackson [id number] Kriss Jackson Notes Date Note Type [...] intolerance has developed recently Natalie Reveles MD [address] [place] [address], [phone], [facility] 05/11/2018 15:01:12 9 text/html 67 yo [...] lidocaine patches prn for feetCame back from [place] yesterday and had allergy sx. Using flonase, asthma inhaler, loratidine.Recent A1 C was <6% per Dr. Robson Reveles MD [address] [place] [address], [phone], [facility] 08/30/2018 13:31:11 9 text/html Physical Exam/FemaleReported [...] room and availability of urgent care at [facility] DiabetesReported bypatient.Duration:chronic Control:usually well controlled; [...] of 145/80 since reducing lisinopril in august.Sees confectionery laboratory manager (Dr. Chance) Natalie Reveles MD [address] [place] [address], [phone], [facility] 01/05/2019 14:13:02 9 text/html Physical Exam/FemaleReported [...] room and availability of urgent care at [facility] DiabetesReported bypatient.Duration:chronic Control:usually well controlled; [...] green sputum. No dyspnea Natalie Reveles MD [address] [place] [address], [phone], [facility] 02/20/2019 10:14:25 OBGyn Episode No OBEpisode recorded.
[2024-08-05] MEDS: Oseltamivir Phosphate 75 MG CAPSULE PO (00:59)
[2024-08-05 01:04] VITALS: BP 135/60; PULSE 65; RESP 16; TEMP 36.8; O2SAT 98
--- NOTE | 2024-08-05 01:13 | PC.NURSE ---
Reviewed discharge instructions with pt. pt verbalized understanding, no sign of respiratory distress, pt wheeled out to car with son.
[2024-08-05 01:15] VITALS: BP 135/60; PULSE 65; RESP 16; TEMP 36.8; O2SAT 98
== END 2024-08-05 01:16 | disposition home or self-care (01) ==
PROVIDERS: Physician Assistant; Emergency Provider Emergency Medicine; PCP Internal Medicine
DX: J10.1 Influenza due to other identified influenza virus with other respiratory manifestations (principal); R11.2 Nausea with vomiting, unspecified; R94.31 Abnormal electrocardiogram [ECG] [EKG]; J01.90 Acute sinusitis, unspecified; Z51.81 Encounter for therapeutic drug level monitoring; Z79.899 Other long term (current) drug therapy; Z03.818 Encounter for observation for suspected exposure to other biological agents ruled out
CPT/HCPCS: 0241U; 70450; 71046; 80053; 83690; 85025; 85610; 87651; 93005; 99284; 99285

== ENCOUNTER → 2024-08-04 18:14 | Outpatient (BNV) | payer MEDICARE, SELFPAY | PROVIDERS: Emergency Provider Emergency Medicine; PCP Internal Medicine; Visit Provider Internal Medicine Cardiovascular Disease | DX: I49.8 Other specified cardiac arrhythmias (principal) | CPT/HCPCS: 93010 ==

== ENCOUNTER → 2024-08-04 18:14 | Outpatient (BNV) | payer MEDICARE, SELFPAY | PROVIDERS: PCP Internal Medicine; Visit Provider Student in an Organized Health Care Education/Training Program | DX: R53.1 Weakness (principal); R07.9 Chest pain, unspecified | CPT/HCPCS: 70450; 71046 ==

== ENCOUNTER → 2024-08-04 23:59 | Outpatient (BNV) | payer MEDICARE, SELFPAY ==
--- NOTE | 2024-08-07 14:20 | A.OFFVIS_ITS ---
Intake Visit Reasons: Remote Device Check- [facility] Allergies duloxetine Allergy (Severe, Verified 08/04/24 18:18) LOOPY codeine [CODEINE] Allergy (Intermediate, Verified 08/04/24 18:18) GI UPSET doxycycline [DOXYCYCLINE] Allergy (Intermediate, Verified 08/04/24 18:18) RASH Sulfa (Sulfonamide Antibiotics) [SULFA (SULFONAMIDE ANTIBIOTICS)] Allergy (Intermediate, Verified 08/04/24 18:18) Hives [facility] Medical History Osteoarthritis of hands, bilateral Osteopenia Rheumatoid arthritis with negative rheumatoid factor Encounter for ongoing osteoporosis therapy, bisphosphonates care home methotrexate user Edema of lower extremity present on examination Petechiae joint terminal attack 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 use of drug Irritable bowel syndrome with diarrhea Rheumatoid arthritis Pacemaker TIA (transient ischemic attack) Dysphagia Spinal stenosis COVID COVID-19 Laryngopharyngeal reflux (LPR) Asthma Rotator cuff tendinitis Post-menopausal Polyarthralgia Dyspnea on exertion Allergic rhinitis Bronchitis Asthma exacerbation Cough variant asthma DJD (degenerative joint disease) Decreased hearing GERD (gastroesophageal reflux disease) Type 2 diabetes 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s Surgical History S/P placement of cardiac pacemaker History of esophagogastroduodenoscopy (EGD) History of colonoscopy (~09/05/21) Hx of cholecystectomy Hx of tonsillectomy Hx of hysterectomy Family History Father CVD (cardiovascular disease) Diabetes Mother Diabetes Sister No problems noted. Other Substance use disorder Social History Household Members: Family and None Housing: House Are you a primary respite care provider to a significant other at home: No Do you presently have visiting nurse or other home services: No Alcohol intake: former Comment: WITHIN LAST MONTH Patient Tobacco Use Status: Never used Tobacco e-Cigarette/Vaping Use: Never Used Second Hand Smoke Exposure: No Advance Directives Date on File: 08/04/22 service: No Current occupational status: retired Cognitive needs: Yes (walker) Hearing needs: Yes (hearing aide) Vision needs: Yes (glasses) Office Procedures Cardiac Device Check Cardiac Device Check Details: Remote pacemaker report generated 08/04/2024. Pacemaker function is adequate [id number] Cardiac Device Interrogation, pacemaker Procedure code (CPT) selection complete Assessment & Plan Assessment & Plan (1) Pacemaker: Code(s): Z95.0 - Presence of cardiac pacemaker Category: Medical Plan: See above Coding Level of Care Code Procedure Only Diagnoses Pacemaker Z95.0 CPT Codes Cardiac Device Check - Cardiac Device 12: [id number] Cardiac Device Interrogation, pacemaker ([id number])
== END ==
PROVIDERS: PCP Internal Medicine; Visit Provider Internal Medicine Cardiovascular Disease
DX: Z45.018 Encounter for adjustment and management of other part of cardiac pacemaker (principal)
CPT/HCPCS: 93294

== ENCOUNTER 2024-08-21 08:53 | Outpatient (AMB) | payer MEDICARE, SELFPAY ==
--- NOTE | 2024-08-21 09:04 | A.OFFVIS_ITS ---
Intake Visit Reasons: Follow Up [facility] 06/19 Intake Note: Patient presents for [facility] follow up. No complaints. Accompanied by: Self / Same As Patient Allergies duloxetine Allergy (Severe, Verified 08/21/24 11:06) LOOPY codeine [CODEINE] Allergy (Intermediate, Verified 08/21/24 11:06) GI UPSET doxycycline [DOXYCYCLINE] Allergy (Intermediate, Verified 08/21/24 11:06) RASH Sulfa (Sulfonamide Antibiotics) [SULFA (SULFONAMIDE ANTIBIOTICS)] Allergy (Intermediate, Verified 08/21/24 11:06) Hives HPI HPI Follow Up [facility] 06/19: Details: The patient is a 73-year-old female presenting with chronic venous insufficiency and varicose veins. She reports a significant history of varicosities, notably a large vein present for over half a century without causing symptoms. Despite a sedentary lifestyle, partially due to second-floor living and a historical foot ulcer, she has noticed worsening appearance and is seeking intervention to prevent future complications and alleviate visible venous changes. She has used compression with minimal relief. She now presents for follow-up with venous insufficiency testing [facility] Medical History Osteoarthritis of hands, bilateral Osteopenia Rheumatoid arthritis with negative rheumatoid factor Encounter for ongoing osteoporosis therapy, bisphosphonates [facility] methotrexate user Edema of lower extremity present on examination Petechiae [facility] use of drug Irritable bowel syndrome with diarrhea Rheumatoid arthritis Pacemaker TIA (transient ischemic attack) Dysphagia Spinal stenosis COVID COVID-19 Laryngopharyngeal reflux (LPR) Asthma Rotator cuff tendinitis Post-menopausal Polyarthralgia Dyspnea on exertion Allergic rhinitis Bronchitis Asthma exacerbation Cough variant asthma DJD (degenerative joint disease) Decreased hearing GERD (gastroesophageal reflux disease) Type 2 diabetes 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s Surgical History S/P placement of cardiac pacemaker History of esophagogastroduodenoscopy (EGD) History of colonoscopy (~09/05/21) Hx of cholecystectomy Hx of tonsillectomy Hx of hysterectomy Family History Father CVD (cardiovascular disease) Diabetes Mother Diabetes Sister No problems noted. Other Substance use disorder Social History Household Members: Family and None Housing: House Are you a primary ocular care technician to a significant other at home: No Do you presently have visiting nurse or other home services: No Alcohol intake: former Comment: WITHIN LAST MONTH Patient Tobacco Use Status: Never used Tobacco e-Cigarette/Vaping Use: Never Used Second Hand Smoke Exposure: No Advance Directives Date on File: 08/04/22 service: No Current occupational status: retired Cognitive needs: Yes (walker) Hearing needs: Yes (hearing aide) Vision needs: Yes (glasses) Review of Systems Const Reports as per HPI ENT Reports no additional complaints Card Denies chest pain, Denies chest pain at rest and Denies chest pain with activity Resp Denies chest congestion and Denies cough GI Reports no additional complaints Musc Details: pain over varicosities, aching of lower extremities, swelling, cramping, heaviness and tiredness, itching Denies abnormal gait Skin/Breast Reports pruritus and Denies wounds Neuro Reports no additional complaints and Denies abnormal gait Psych Denies no additional complaints Physical Exam Const General: cooperative, healthy appearing and comfortable Orientation/consciousness: oriented to person, oriented to place and oriented to time Neck Carotids: no bruits Chest Chest palpation & inspection: normal inspection of the chest and normal palpation of entire chest wall Resp Effort & Inspection: normal respiratory effort and able to speak in complete sentences Cardio Rate: regular rate Heart sounds: S1 normal heart sound present and S2 normal heart sound present Peripheral pulses: Peripheral pulses 2+ throughout GI Inspection: Yes normal to inspection Skin Other: +2 edema, large rope-like varicosities greater than 4 mm left thigh CEAP Classification C4 - skin color changes Ep - Etiology Primary As - superficial veins P - reflux General skin exam: dry skin Neuro General: oriented to person, oriented to place and oriented to time Extrem Right lower extremity: full ROM, normal capillary refill and edema Left lower extremity: full ROM, normal capillary refill and edema Psych Mental Status: mental status grossly normal Results Reviewed Results Reviewed: Brief summary of venous insufficiency testing is as follows: right great saphenous vein: negative right small saphenous vein: negative right accessory vein: none present left great saphenous vein: Positive left small saphenous vein: negative left accessory vein: Present and positive Please note there is no evidence of any venous aneurysms or significant tortuosity Assessment & Plan Assessment & Plan (1) Varicose veins of left lower extremity with inflammation: Code(s): I83.12 - Varicose veins of left lower extremity with inflammation Category: Medical Plan: This patient has varicose veins with inflammation. They continue to be a source of discomfort for the patient. The patient has tried conservative treatment with compression, leg elevation and exercise program for over 3 months time. They have been compliant with all treatment. This has provided minimal relief for the patient. I do not anticipate this course of treatment will alter the underlying etiology. The patient has been scheduled for lower extremity venous treatment inclusive of --- left great saphenous vein radiofrequency ablation. Risks, benefits, and complications of this procedure has been discussed in detail with the patient including but not limited to bleeding, infection, and the development of a DVT. The patient has demonstrated a clear understanding and has consented. We will schedule the patient as soon as possible. Thank you for allowing us to participate in this patient's care. If there are any questions or concerns please do not hesitate to contact us. Coding Level of Care Code Est Pt Level 4 (59592) Diagnoses Varicose veins of left lower extremity with inflammation I83.12
--- OUTSIDE RECORDS SUMMARY | 2024-08-21 09:28 | XMS_ITS ---
Author Organization [facility] Address [address] [place] [address] Care Team Providers Care Provider Education Specialist Name Role Phone Angel Pablo Primary Care Provider Antonio Giles Unavailable [phone] Allergies Allergen (clinical drug ingredient) Drug/Non Drug [...] other tobacco user? No Vital Signs Height 0bx08uf in 04/15/2024 Weight 146 lbs 04/15/2024 BMI 30.51 kg/m2 04/15/2024 Blood pressure systolic 109 mm Hg 04/15/20 24 Blood pressure diastolic 54 mm Hg 024 Procedures Procedure Date Ordered Date Performed Result Body Sit e 99966- Debride <25 sq cm 04/15/2024 N/A Encounters Encounter Location Date Provider Diagnosis [facility] [place] [address] [place] [address] 04/15/2024 Antonio Montoyaunier Neuropathic ulcer of right [...] INSTRUCTIONS.pdf) Pending Test Test Name Order Date 68635- Debride <25 sq cm 04/15/2024 Next Appt Details Follow Up: 4 Weeks, Reason: Provider Name:Antonio Giles , 09/16/2024 10:30:00 AM, [address] [place] [address], [phone], Procedure Notes * Category Sub-Category Detail Notes [...] of the wound post debridement is stable (96401) Progress Notes * Jose JACKSONOB:1950 ([age] yo F)Acc No.[id number]:04/15/2024 Progress Notes Patient:Kriss Maki Provider:?Antonio Giles DPM :1950???Age:73 Y???Sex:Female D ate:04/15/2024 Address:[address] [place], [place] [address] Pcp:Angel Pablo Subjective: * Chief Complaints: * [...] yes, housework,shooping. ?Marital status: . 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 * Medications:?TakingoxyBUTYni n Vitamin D Zoledronic Acid [...] eine: stomach upsetDoxycyclineDuloxetineCymbaltayes[Allergies Verified] Objective: * Vitals:?Ht: 6zd65cy, Wt:146, BMI:30.51, Shoe size: 7, BP:109/54 mm Hg, BS: 107, Ht-cm: 147.32 cm, Wt-k.22 kg. * ???Past Orders: ???Lab:HEMOGLOBIN A1C (GLYCO HEMOGLOBIN) (Order Date - 12/11/2023) (Collection Date - 10/24/2023) ? Value Reference Range ?TOTAL HEMOGLOBIN (HGBA1C) 5.2 * Examination: ???Ophthalmology Referral: ?DIABETES EYE EXAM?Diabetic Retinopathy Screening:?No ?Findings of Diabetic Eye Exam:?no retinopathy?Dermatologic: ?ULCER:?LOCATION, Plantar, 1 MTH, RIGHT, SIZE, 4mm [...] of the wound post debridement is stable (44914).? * Procedure Codes:?34119 ACTIV E WOUND CARE/20 CM OR < [...] Giles DPM Date:?2023 Generated for Shanique alatorre/Lloyd/Jemalitting on:?08/21/2024 09:28 AM EST History and Physical Notes * [...]
--- OUTSIDE RECORDS SUMMARY | 2024-08-21 09:30 | XMS_ITS ---
Author Organization [facility] Address [address] [place] [address] Care Team Providers Care Final Dressing Cutter Name Role Phone Angel Pablo Primary Care Provider [phone] Antonio Giles Unavailable [phone] Allergies Allergen (clinical drug ingredient) Drug/Non Drug [...] other tobacco user? No Vital Signs Height 3fd33jw in 05/16/2024 Weight 146 lbs 05/16/2024 BMI 30.51 kg/m2 05/16/2024 Blood pressure systolic 109 mm Hg 05/16/20 24 Blood pressure diastolic 54 mm Hg 024 Encounters Encounter Location Date Provider Diagnosis [facility] [place] [address] [place] [address] 05/16/2024 Antonio Montoyaunier Neuropathic ulcer of right [...] Name:Antonio Giles , 09/16/2024 10:30:00 AM, [address] [place], [address], Progress Notes * Jose JACKSONOB:1950 ([age] yo F)Acc No.[id number]:05/16/2024 Progress Notes Patient:Kriss HARRISON Provider:?Antonio Giles DPM :1950???Age:73 Y???Sex:Female D ate:05/16/2024 Address:[address] [place], [place] [address] Pcp:Angel Pablo Subjective: * Chief Complaints: * [...] yes, housework,shooping. ?Marital status: . 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 * Medications:?TakingoxyBUTYni n Vitamin D Zoledronic Acid [...] hivesCod eine: stomach upsetDoxycyclineDuloxetineCymbaltayes[Allergies Verified] Objective: * Vitals:?Ht:8yi98ex, Wt:146, BMI:30.51, Shoe size:7, BP:109/54mm Hg, BS:not [...] Provider:?Antonio Giles DPM Date:?2023 Generated for Shanique aaltorre/Lloyd/Ramirosmitting on:?08/21/2024 09:29 AM EST History and Physical Notes * [...]
--- OUTSIDE RECORDS SUMMARY | 2024-08-21 09:30 | XMS_ITS ---
Author Organization [facility] Address [address] [place] [address] Care Team Providers Care Residential Care Facility Manager Name Role Phone Angel Pablo Primary Care Provider Antonio Giles Unavailable [phone] Allergies Allergen (clinical drug ingredient) Drug/Non Drug [...] W/U Status Risk Notes Problem Essential hypertension ([id number]) Essential hypertension (I10) Active confirmed Vital Signs Height 6ua25um in 06/10/2024 Weight 146 lbs 06/10/2024 BMI 30.51 kg/m2 06/10/2024 Blood pressure systolic 109 mm Hg 06/10/20 24 Blood pressure diastolic 54 mm Hg 024 Procedures Procedure Date Ordered Date Performed Result Body Sit e 35787-IGWDYOH NAIL, 6 OR MORE 06/10/2024 N/A 25551-DCMD SKIN LESIONS, OVER 4 06/10/2024 N/A Encounters Encounter Location Date Provider Diagnosis [facility] [address] [address] 06/10/2024 Antonio Giles Type 2 diabetes mellitus [...] Treatment Pending Test Test Name Order Date 41996-TBZHTGX NAIL, 6 OR MORE 06/10/2024 12375-IYST SKIN LESIONS, OVER 4 06/10/20 24 Next Appt Details Follow Up: prn, Reason: Provider Name:Antonio Giles , 09/16/2024 10:30:00 AM, [address] [place] [address], [phone], Procedure Notes * Category Sub-Category Detail Notes [...] use of a nail nipper and/or dremel-type universal grinder set up operator, to a more viable healthy nail plate [...] to maintain effectiveness in symptomatic relief - 60579 Keratoma Treatment Parring or Cutting o f [...] instrumentation by the physician of record - 00821 Progress Notes * Jose JACKSONOB:1950 ([age] yo F)Acc No.[id number]:06/10/2024 Progress Note Patient:Kriss HARRISON Provider:?Antonio Giles DPM :1950???Age:73 Y???Sex:Female D ate:06/10/2024 Address:[address] [place] [address] Pcp:Angel Pablo Subjective: * Chief Complaints: * [...] yes, housework,shooping. ?Marital status: . 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 * Medications:?TakingAcetamino phen ER , Notes to [...] hivesCod eine: stomach upsetDoxycyclineDuloxetineCymbaltayes[Allergies Verified] Objective: * Vitals:?Ht:5aq00sf, Wt:146, BMI:30.51, Shoe size:7, BP:109/54mm Hg, BS:not [...] use of a nail nipper and/or dremel-type universal grinder set up operator, to a more viable healthy nail plate [...] to maintain effectiveness in symptomatic relief - 78535.?Keratoma Treatment:?Parring or Cutting of Benign Hyperkeratotic Lesion(s)?(-57) [...] instrumentation by the physician of record - 67524.? * Procedure Codes:?77786 DEBRI DE NAIL, 6 OR MORE, Modifiers: XS 34394 TRIM SKIN LESIONS, OVER 4, Modifiers: XS [...] DPM Date:?2023 Generated for Shanique alatorre/Lloyd/Jemalitting on:?08/21/2024 09:30 AM EST History and Physical Notes * [...]
--- OUTSIDE RECORDS SUMMARY | 2024-08-21 09:30 | XMS_ITS | Data Portability ---
Author Organization [facility], [facility] Address [address] [place] [address] Assessment Encounter Date Assessment Date Assessment LastModified by Organization Details LastModified Time 04/30/2018 04/30/2018 Blood pressure i s at goal with which is below 140/90 for a diabetic. She is looking for alternative activities in her intermediate. Her A1c of 5.5% shows excellent diabetes control (goal below 7.5-8%). She will continue with [facility] in diabetes education for that. [...] to what she tells us from her coal washer tender, and she will try and get us those records. He continues with umbrella cutter and on prednisone. She will follow-up in [...] bp more regularly 3) Patient regularly sees coal washer tender who will check A1C and adjust rx [...] with new provider (will be changing to [facility] for convenience) 9) RA stable; [...] Lab TSH, serum or plasma 2017 018 [facility], [address] [place] [address], [address], 8 16:26:11 CBC 2017 018 [facility], [address] [place], [address], 8 14:43:05 Referral None recorded. Procedures None recorded. Surgeries None recorded. Imaging None recorded. Medication Orders cefpodoxim e 200 mg tablet 2018 019 [id number], [address], [place], [id number], 9 12:53:28 atorvastat in 20 mg tablet 2018 019 [facility] #[id number], [address], [place], [id number], 9 16:34:01 lidocaine 5 % topical patch 2018 019 INTERFACE [facility] #[id number], [address], [place], [id number], 9 13:32:45 omeprazole 20 mg capsule,de layed release 2018 019 [facility] #[id number], [address], [place], [id number], 9 16:34:01 lisinopril 10 mg-hydroch lorothiazi de 12.5 mg tablet 2018 019 [facility] #[id number], [address], [place], [id number], 9 16:34:01 cefpodoxim e 200 mg tablet 2018 019 [facility] #[id number], [address], [place], [id number], 9 14:47:44 Patient TargetsNo targets recorded. Patient Instructions Encounter Date Encounter Id Patient Instructions Last Modified By Organization Details Last Modified Time 04/30/2018 [id number] high cholesterol lifestyle changes nikki Not available 04/30/2018 11:19:19 high blood pressure: care instructions nikki Not available 04/30/2018 11:19:19 learning about high blood pressure nikki Not available 04/30/2018 11:19:19 asthma handout / teaching nikki Not available 04/30/2018 11:19:19 asthma action plan nikki Not availab le 04/30/2018 11:19:[address] an ages 0-11 yrs icelandic nikki Not available 04/30/2018 11:19:19 CCM: The provide r and patient discussed the Chronic Care Management program, including the services provided, and any fees associated with them. michele Not available 04/30/2018 11:32:47 08/29/2018 [id number] My Health To Do List Specific Analgesia [...] medication. spise Not available 08/29/2018 11:18:25 12/31/2018 [id number] After a discussi on of treatment options, [...] Patie nts with Diabe sarath Not Available [address], [address], 04/26/2018 15:36:01 04/26/20 18 04/26/2018 HbA1c (hemo globi n A1c), blood estimated average glucose 111.2 mg/dL Not Available [address], [address], 04/26/2018 15:36:01 04/26/20 18 04/26/2018 micro album in, urine microalbumin 39.3 mg/L 1.3-20 .0 high Not Available [address], [address], 04/26/2018 15:37:51 04/26/20 18 04/26/2018 micro album in, urine creatinine urine 193.6 mg/dL 30.0-1 25.0 high Not Available [address], [address], 04/26/2018 15:37:51 04/26/20 18 04/26/2018 micro album in, urine microalb/cre at ratio 20.3 mg/g_ creat 0.0-29 .0 Not Available [address], [address], 04/26/2018 15:37:51 04/26/20 18 04/26/2018 BMP, serum or plasm a glucose 74 mg/dL 70-100 Not Available [address], [address], 04/26/2018 16:07:42 04/26/20 18 04/26/2018 BMP, serum or plasm a BUN 16 mg/dL 7-18 Not Available [address], [address], 04/26/2018 16:07:42 04/26/20 18 04/26/2018 BMP, serum or plasm a creatinine 1.1 mg/dL 0.8-1. 3 Not Available [address], [address], 04/26/2018 16:07:42 04/26/20 18 04/26/2018 BMP, serum or plasm a B/C 14.5 ratio Not Available [address], [address], 04/26/2018 16:07:42 04/26/20 18 04/26/2018 BMP, serum or plasm a GFR -non 55.5 mL/mi n Recom zhane d GFR by the Natio nal Kidne y Found ation >60 mL/mi n/1.7 3m2 - Patricia l <60 mL/mi n/1.7 3m2 - Chron ic Kidne y Disea se <15 mL/mi n/1.7 3m2 - Kidne y Failu re Not Available [address], [address], 04/26/2018 16:07:42 04/26/20 18 04/26/2018 BMP, serum or plasm a GFR - if 63.8 mL/mi n For Afric an Ameri can patie nts: Resul ts Multi plied by 1.21 Not Available [address], [address], 04/26/2018 16:07:42 04/26/20 18 04/26/2018 BMP, serum or plasm a sodium 143 mmol/ L 136-14 5 Not Available [address], [address], 04/26/2018 16:07:42 04/26/20 18 04/26/2018 BMP, serum or plasm a potassium 4.6 mmol/ L 3.5-5. 1 Not Available [address], [address], 04/26/2018 16:07:42 04/26/20 18 04/26/2018 BMP, serum or plasm a chloride 105 mmol/ L 96-107 Not Available [address], [address], 04/26/2018 16:07:42 04/26/20 18 04/26/2018 BMP, serum or plasm a anion gap 11.1 5.0-15 .0 Not Available [address], [address], 04/26/2018 16:07:42 04/26/20 18 04/26/2018 BMP, serum or plasm a CO2 27 mmol/ L 21-32 Not Available [address], [address], 04/26/2018 16:07:42 04/26/20 18 04/26/2018 BMP, serum or plasm a calcium 9.2 mg/dL 8.5-10 .3 Not Available [address], [address], 04/26/2018 16:07:42 04/26/20 18 04/26/2018 lipid panel , serum cholesterol 106 mg/dL <200 mg/dl Avelino able 200-2 39 mg/dl Borde rline High >240 mg/dl High Not Available [address], [address], 04/26/2018 16:07:44 04/26/20 18 04/26/2018 lipid panel , serum triglyceride s 184 mg/dL <150 mg/dL Patricia l 150-1 99 mg/dL Borde rline High 200-4 99 mg/dL High >500 mg/dL Very High Not Available [address], [address], 04/26/2018 16:07:44 04/26/20 18 04/26/2018 lipid panel , serum direct HDL 39 mg/dL <40 mg/dl - Major Risk for CHD >60 mg/dl - Negat jeannette Risk for CHD Not Available [address], [address], 04/26/2018 16:07:44 04/26/20 18 04/26/2018 LDL, calcu [...] r is not bryantpierce olivia. Not Available [address], [address], 04/26/2018 16:07:45 04/26/20 18 04/26/2018 AST/S GOT (aspa rtate amino trans feras e), serum or plasm a AST 18 U/L 15-37 Not Available [address], [address], 04/26/2018 16:25:23 04/26/20 18 04/26/2018 ALT (karen ine amino trans feras e), serum or plasm a ALT 26 U/L 30-65 low Not Available [address], [address], 04/26/2018 16:25:24 04/30/20 18 04/30/2018 CBC WBC 8.9 K/??L 4.0-10 .0 Not Available [address], [address], 04/30/2018 14:43:04 04/30/20 18 04/30/2018 CBC RBC 4.13 M/??L 3.93-5 .22 Not Available [address], [address], 04/30/2018 14:43:04 04/30/20 18 04/30/2018 CBC HGB 11.9 g/dL 11.2-1 5.7 Not Available [address], [address], 04/30/2018 14:43:04 04/30/20 18 04/30/2018 CBC HCT 35.9 % 34.1-4 4.9 Not Available [address], [address], 04/30/2018 14:43:04 04/30/20 18 04/30/2018 CBC MCV 86.9 ??L 79.4-9 4.8 Not Available [address], [address], 04/30/2018 14:43:04 04/30/20 18 04/30/2018 CBC MCH 28.8 pg 25.6-3 2.2 Not Available [address], [address], 04/30/2018 14:43:04 04/30/20 18 04/30/2018 CBC MCHC 33.1 g/dL 32.2-3 5.5 Not Available [address], [address], 04/30/2018 14:43:04 04/30/20 18 04/30/2018 CBC plt 290.0 K/??L 182.0- 369.0 Not Available [address], [address], 04/30/2018 14:43:04 04/30/20 18 04/30/2018 CBC MPV 11.7 9.4-12 .3 Not Available [address], [address], 04/30/2018 14:43:04 04/30/20 18 04/30/2018 CBC neut% 78.8 % 34.0-7 1.1 high Not Available [address], [address], 04/30/2018 14:43:04 04/30/20 18 04/30/2018 CBC neut# 7.0 1.6-6. 1 high Not Available [address], [address], 04/30/2018 14:43:04 04/30/20 18 04/30/2018 CBC lymph % 14.1 % 19.3-5 1.7 low Not Available [address], [address], 04/30/2018 14:43:04 04/30/20 18 04/30/2018 CBC lymph # 1.3 K/??L 1.2-3. 7 Not Available [address], [address], 04/30/2018 14:43:04 04/30/20 18 04/30/2018 CBC mono% 5.2 % 4.7-12 .5 Not Available [address], [address], 04/30/2018 14:43:04 04/30/20 18 04/30/2018 CBC mono# 0.5 0.2-0. 6 Not Available [address], [address], 04/30/2018 14:43:04 04/30/20 18 04/30/2018 CBC eo% 1.4 % 0.7-5. 8 Not Available [address], [address], 04/30/2018 14:43:04 04/30/20 18 04/30/2018 CBC eo# 0.1 0.0-0. 4 Not Available [address], [address], 04/30/2018 14:43:04 04/30/20 18 04/30/2018 CBC baso% 0.5 % 0.1-1. 2 Not Available [address], [address], 04/30/2018 14:43:04 04/30/20 18 04/30/2018 CBC baso# 0.0 0.0-0. 1 Not Available [address], [address], 04/30/2018 14:43:04 04/30/20 18 04/30/2018 CBC RDW-CV 14.0 % 11.7-1 4.4 Not Available [address], [address], 04/30/2018 14:43:04 04/30/20 18 04/30/2018 TSH, serum or plasm a TSH 2.29 uIU/m L 0.50-6 .00 The Ameri can Colle ge of Endoc rinol ogy and Ameri can Thyro id Assoc iatio n recom mend goal TSH value s betwe en 0.4-4 .0 mIU/m L. Not Available [address], [address], 04/30/2018 16:26:11 06/12/20 18 06/12/2018 CBC w/ auto diff WBC 13.71 K/uL 3.40-1 1.20 high Not Available [facility] [address] [place] [address], [address], 06/12/2018 14:19:14 06/12/20 18 06/12/2018 CBC w/ auto diff RBC 4.19 M/uL 3.80-4 .80 Not Available [facility]) [address] [place] [address], [address], 06/12/2018 14:19:14 06/12/20 18 06/12/2018 CBC w/ auto diff HGB 12.0 g/dL 12.0-1 5.0 Not Available [facility]) [address] [place] [address], [address], 06/12/2018 14:19:14 06/12/20 18 06/12/2018 CBC w/ auto diff HCT 35.1 % 36.0-4 6.0 low Not Available [facility]) [address] [place] [address], [address], 06/12/2018 14:19:14 06/12/20 18 06/12/2018 CBC w/ auto diff plt 285 K/uL 130-40 0 Not Available [facility]) [address] [place], [address], 06/12/2018 14:19:14 06/12/20 18 06/12/2018 CBC w/ auto diff MCV 83.8 fL 79.0-9 8.0 Not Available [facility] [address] [place], [address], 06/12/2018 14:19:14 06/12/20 18 06/12/2018 CBC w/ auto diff MCH 28.6 pg 27.0-3 4.8 Not Available [facility]) [address] [place], [address], 06/12/2018 14:19:14 06/12/20 18 06/12/2018 CBC w/ auto diff MCHC 34.2 g/dL 31.5-3 6.0 Not Available [facility]) [address] [place], [address], 06/12/2018 14:19:14 06/12/20 18 06/12/2018 CBC w/ auto diff RDW 13.2 % 10.8-1 4.6 Not Available [facility] [address] [place], [address], 06/12/2018 14:19:14 06/12/20 18 06/12/2018 CBC w/ auto diff MPV 11.6 fL 9.4-12 .4 Not Available [facility] [address] [place], [address], 06/12/2018 14:19:14 06/12/20 18 06/12/2018 CBC w/ auto diff NRBC 0.00 /100_ WBCs 0.00 Not Available [facility] [address] [place], [address], 06/12/2018 14:19:14 06/12/20 18 06/12/2018 CBC w/ auto diff absolute NRBC 0.00 K/uL 0.00 Not Available [facility] [address] [place], [address], 06/12/2018 14:19:14 06/12/20 18 06/12/2018 CBC w/ auto diff diff method Auto Not Available [facility] [address] [place], [address], 06/12/2018 14:19:14 06/12/20 18 06/12/2018 CBC w/ auto diff neuts 84.8 % 45.30- 77.70 high Not Available [facility] [address] [place], [address], 06/12/2018 14:19:14 06/12/20 18 06/12/2018 CBC w/ auto diff lymphs 9.0 % 12.30- 39.70 low Not Available [facility] [address] [place], [address], 06/12/2018 14:19:14 06/12/20 18 06/12/2018 CBC w/ auto diff monos 4.2 % 4.10-1 2.80 Not Available [facility] [address] [place], [address], 06/12/2018 14:19:14 06/12/20 18 06/12/2018 CBC w/ auto diff eos 0.9 % 0-7.2 Not Available [facility] [address] [place], [address], 06/12/2018 14:19:14 06/12/20 18 06/12/2018 CBC w/ auto diff basos 0.7 % 0-2.80 Not Available [facility] [address] [place], [address], 06/12/2018 14:19:14 06/12/20 18 06/12/2018 CBC w/ auto diff granulocytes , immature (%) 0.4 % 0.0-0. 9 Not Available [facility] [address] [place], [address], 06/12/2018 14:19:14 06/12/20 18 06/12/2018 CBC w/ auto diff absolute neuts 11.63 K/uL 1.40-7 .70 high Not Available [facility] [address] [place], [address], 06/12/2018 14:19:14 06/12/20 18 06/12/2018 CBC w/ auto diff absolute lymphs 1.24 K/uL 0.60-3 .20 Not Available [facility] [address] [place], [address], 06/12/2018 14:19:14 06/12/20 18 06/12/2018 CBC w/ auto diff absolute monos 0.57 K/uL 0.11-0 .59 Not Available [facility] [address] [place], [address], 06/12/2018 14:19:14 06/12/20 18 06/12/2018 CBC w/ auto diff absolute eos 0.13 K/uL 0.01-0 .50 Not Available [facility] [address] [place], [address], 06/12/2018 14:19:14 06/12/20 18 06/12/2018 CBC w/ auto diff absolute basos 0.09 K/uL 0.00-0 .08 high Not Available [facility]) [address] [place] [address], [address], 06/12/2018 14:19:14 06/12/20 18 06/12/2018 CBC w/ auto diff granulocytes , immature 0.05 K/uL 0.00-0 .05 Not Available [facility] [address] [place], [address], 06/12/2018 14:19:14 06/12/20 18 06/12/2018 CMP, serum or plasm a sodium 139 mmol/ L 133-14 6 Not Available [facility] [address] [place], [address], 06/12/2018 15:13:28 06/12/20 18 06/12/2018 CMP, serum or plasm a potassium 4.6 mmol/ L 3.3-5. 1 Not Available [facility] [address] [place], [address], 06/12/2018 15:13:28 06/12/20 18 06/12/2018 CMP, serum or plasm a chloride 99 mmol/ L 96-108 Not Available [facility] [address] [place], [address], 06/12/2018 15:13:28 06/12/20 18 06/12/2018 CMP, serum or plasm a CO2 28 mmol/ L 21-35 Not Available [facility] [address] [place], [address], 06/12/2018 15:13:28 06/12/20 18 06/12/2018 CMP, serum or plasm a BUN 22 mg/dL 6-19 high Not Available [facility] [address] [place], [address], 06/12/2018 15:13:28 06/12/20 18 06/12/2018 CMP, serum or plasm a creatinine 0.90 mg/dL 0.5-1. 5 Not Available [facility] [address] [place], [address], 06/12/2018 15:13:28 06/12/20 18 06/12/2018 CMP, serum or plasm a glucose 104 mg/dL 70-99 high Not Available [facility] [address] [place], [address], 06/12/2018 15:13:28 06/12/20 18 06/12/2018 CMP, serum or plasm a albumin 4.4 g/dL 3.9-4. 8 Not Available [facility] [address] [place], [address], 06/12/2018 15:13:28 06/12/20 18 06/12/2018 CMP, serum or plasm a total protein 6.9 g/dL 6.5-8. 0 Not Available [facility] [address] [place], [address], 06/12/2018 15:13:28 06/12/20 18 06/12/2018 CMP, serum or plasm a calcium 9.3 mg/dL 8.4-10 .3 Not Available [facility] [address] [place], [address], 06/12/2018 15:13:28 06/12/20 18 06/12/2018 CMP, serum or plasm a alkaline phosphatase 82 U/L 39-117 Not Available [facility] [address] [place], [address], 06/12/2018 15:13:28 06/12/20 18 06/12/2018 CMP, serum or plasm a total bilirubin 0.4 mg/dL 0.0-1. 2 Not Available [facility] [address] [place], [address], 06/12/2018 15:13:28 06/12/20 18 06/12/2018 CMP, serum or plasm a AST 16 U/L 0-37 Not Available [facility] [address] [place], [address], 06/12/2018 15:13:28 06/12/20 18 06/12/2018 CMP, serum or plasm a ALT 18 U/L 0-40 Not Available [facility] [address] [place], [address], 06/12/2018 15:13:28 06/12/20 18 06/12/2018 CMP, serum or plasm a globulin 2.5 g/dL 1-4.8 Not Available [facility] [address] [place] [address], [address], 06/12/2018 15:13:28 06/12/20 18 06/12/2018 CMP, serum or plasm a eGFR 66 mL/mi n/1.7 3m2 >59 If patie nt is black , multi ply resul t by 1.159 . Estim ated glome rular filtr ation rate calcu lated using the CKD-E PI equat ion. Not Available [facility] [address] [place] [address], [address], 06/12/2018 15:13:28 06/12/20 18 06/12/2018 CMP, serum or plasm a anion gap 17 mmol/ L 10-20 Not Available [facility]) [address] [place] [address], [address], 06/12/2018 15:13:28 06/12/20 18 06/12/2018 C-andra ctive prote in, quant itati ve, serum or plasm a C reactive protein 3.3 mg/L 0.0-4. 0 Not Available [facility] [address] [place] [address], [address], 06/12/2018 15:13:30 06/12/20 18 06/13/2018 HBsAg (hepa titis B surfa ce Ag), serum HBV surface antigen Negati ve negati ve Not Available [facility]) [address] [place] [address], [address], 06/13/2018 10:03:22 06/12/20 18 06/13/2018 hepat itis B virus core Ab, quali tativ e, serum hep B core Ab, tot Negati ve negati ve Not Available [facility]) [address] [place] [address], [address], 06/13/2018 10:03:24 06/12/20 18 06/14/2018 tb (M [...] a level <0.35 IU/mL . Not Available [facility]) [address] [place] [address], [address], 06/14/2018 19:02:21 06/12/20 18 06/14/2018 tb (M tuber culos is), ifn-g deonte sai , blood TB1 Ag minus nil 0.11 IU/mL Not Available [facility]) [address] [place] [address], [address], 06/14/2018 19:02:21 06/12/20 18 06/14/2018 tb (M tuber culos is), ifn-g deonte sai , blood TB2 Ag minus nil 0.00 IU/mL Not Available [facility]) [address] [place] [address], [address], 06/14/2018 19:02:21 06/12/20 18 06/14/2018 tb (M tuber culos is), ifn-g deonte sai , blood mitogen minus nil 2.75 IU/mL Not Available [facility]) [address] [place], [address], 06/14/2018 19:02:21 06/12/20 18 06/14/2018 tb (M tuber culos is), ifn-g deonte sai , blood nil result 0.01 IU/mL Not Available [facility]) [address] [place], [address], 06/14/2018 19:02:21 10/18/19 19 10/17/2018 CBC w/ auto diff WBC 10.03 K/uL 3.40-1 1.20 Not Available [facility]) [address] [place] [address], [address], 10/17/2018 15:41:19 10/18/19 19 10/17/2018 CBC w/ auto diff RBC 4.02 M/uL 3.80-4 .80 Not Available [facility]) [address] [place] [address], [address], 10/17/2018 15:41:19 10/18/19 19 10/17/2018 CBC w/ auto diff HGB 11.9 g/dL 12.0-1 5.0 low Not Available [facility]) [address] [place] [address], [address], 10/17/2018 15:41:19 10/18/19 19 10/17/2018 CBC w/ auto diff HCT 35.2 % 36.0-4 6.0 low Not Available [facility]) [address] [place] [address], [address], 10/17/2018 15:41:19 10/18/19 19 10/17/2018 CBC w/ auto diff plt 236 K/uL 130-40 0 Not Available [facility] [address] [place], [address], 10/17/2018 15:41:19 10/18/19 19 10/17/2018 CBC w/ auto diff MCV 87.6 fL 79.0-9 8.0 Not Available [facility] [address] [place], [address], 10/17/2018 15:41:19 10/18/19 19 10/17/2018 CBC w/ auto diff MCH 29.6 pg 27.0-3 4.8 Not Available [facility]) [address] [place], [address], 10/17/2018 15:41:19 10/18/19 19 10/17/2018 CBC w/ auto diff MCHC 33.8 g/dL 31.5-3 6.0 Not Available [facility] ([facility]) [address] [place], [address], 10/17/2018 15:41:19 10/18/19 19 10/17/2018 CBC w/ auto diff RDW 12.9 % 10.8-1 4.6 Not Available [facility] [address] [place], [address], 10/17/2018 15:41:19 10/18/1910/17/2018 CBC w/ auto diff MPV 11.0 fL 9.4-12 .4 Not Available [facility] [address] [place], [address], 10/17/2018 15:41:19 10/18/1910/17/2018 CBC w/ auto diff NRBC 0.00 /100_ WBCs 0.00 Not Available [facility] [address] [place], [address], 10/17/2018 15:41:19 10/18/19 19 10/17/2018 CBC w/ auto diff absolute NRBC 0.00 K/uL 0.00 Not Available [facility] [address] [place], [address], 10/17/2018 15:41:19 10/18/19 19 10/17/2018 CBC w/ auto diff diff method Auto Not Available [facility] [address] [place], [address], 10/17/2018 15:41:19 10/18/19 19 10/17/2018 CBC w/ auto diff neuts 70.1 % 45.30- 77.70 Not Available [facility] [address] [place], [address], 10/17/2018 15:41:19 10/18/19 19 10/17/2018 CBC w/ auto diff lymphs 18.2 % 12.30- 39.70 Not Available [facility] [address] [place], [address], 10/17/2018 15:41:19 10/18/19 19 10/17/2018 CBC w/ auto diff monos 7.4 % 4.10-1 2.80 Not Available [facility] [address] [place], [address], 10/17/2018 15:41:19 10/18/1910/17/2018 CBC w/ auto diff eos 2.8 % 0-7.2 Not Available [facility] [address] [place], [address], 10/17/2018 15:41:19 10/18/1910/17/2018 CBC w/ auto diff basos 1.1 % 0-2.80 Not Available [facility] [address] [place], [address], 10/17/2018 15:41:19 10/18/19 19 10/17/2018 CBC w/ auto diff granulocytes , immature (%) 0.4 % 0.0-0. 9 Not Available [facility] [address] [place], [address], 10/17/2018 15:41:19 10/18/19 19 10/17/2018 CBC w/ auto diff absolute neuts 7.03 K/uL 1.40-7 .70 Not Available [facility] [address] [place], [address], 10/17/2018 15:41:19 10/18/19 19 10/17/2018 CBC w/ auto diff absolute lymphs 1.83 K/uL 0.60-3 .20 Not Available [facility] ([facility]) [address] [place], [address], 10/17/2018 15:41:19 10/18/19 19 10/17/2018 CBC w/ auto diff absolute monos 0.74 K/uL 0.11-0 .59 high Not Available [facility] ([facility] [address] [place], [address], 10/17/2018 15:41:19 10/18/1910/17/2018 CBC w/ auto diff absolute eos 0.28 K/uL 0.01-0 .50 Not Available [facility] [address] [place], [address], 10/17/2018 15:41:19 10/18/1910/17/2018 CBC w/ auto diff absolute basos 0.11 K/uL 0.00-0 .08 high Not Available [facility]) [address] [place] [address], [address], 10/17/2018 15:41:19 10/18/19 19 10/17/2018 CBC w/ auto diff granulocytes , immature 0.04 K/uL 0.00-0 .05 Not Available [facility] [address] [place], [address], 10/17/2018 15:41:19 10/18/19 19 10/17/2018 eryth rocyt e sedim entat ion rate by prema gonzalez d ESR 5 mm/h 0-30 Not Available [facility] [address] [place], [address], 10/17/2018 16:22:09 10/18/19 19 10/17/2018 CMP, serum or plasm a sodium 143 mmol/ L 133-14 6 Not Available [facility] (Outpatient) [address] [place], [address], 10/17/2018 16:48:20 10/18/19 19 10/17/2018 CMP, serum or plasm a potassium 4.3 mmol/ L 3.3-5. 1 Not Available [facility] (Outpatient) [address] [place] [address], [id number], 10/17/2018 16:48:20 10/18/19 19 10/17/2018 CMP, serum or plasm a chloride 104 mmol/ L 96-108 Not Available [facility] (Outpatient) [address] [place], [address], 10/17/2018 16:48:20 10/18/19 19 10/17/2018 CMP, serum or plasm a CO2 26 mmol/ L 21-35 Not Available [facility] (Out[facility]) [address] [place], [address], 10/17/2018 16:48:20 10/18/19 19 10/17/2018 CMP, serum or plasm a BUN 28 mg/dL 6-19 high Not Available [facility] [facility] [address] [place], [address], 10/17/2018 16:48:20 10/18/19 19 10/17/2018 CMP, serum or plasm a creatinine 1.00 mg/dL 0.5-1. 5 Not Available [facility] [address] [place], [address], 10/17/2018 16:48:20 10/18/19 19 10/17/2018 CMP, serum or plasm a glucose 127 mg/dL 70-99 high Not Available [facility] [address] [place], [address], 10/17/2018 16:48:20 10/18/19 19 10/17/2018 CMP, serum or plasm a albumin 4.3 g/dL 3.9-4. 8 Not Available [facility] [address] [place], [address], 10/17/2018 16:48:20 10/18/19 19 10/17/2018 CMP, serum or plasm a total protein 6.9 g/dL 6.5-8. 0 Not Available [facility] [address] [place], [address], 10/17/2018 16:48:20 10/18/19 19 10/17/2018 CMP, serum or plasm a calcium 9.5 mg/dL 8.4-10 .3 Not Available [facility] [address] [place], [address], 10/17/2018 16:48:20 10/18/19 19 10/17/2018 CMP, serum or plasm a alkaline phosphatase 74 U/L 39-117 Not Available [facility] (Out[facility]) [address] [place], [address], 10/17/2018 16:48:20 10/18/19 19 10/17/2018 CMP, serum or plasm a total bilirubin 0.3 mg/dL 0.0-1. 2 Not Available [facility] [address] [place], [address], 10/17/2018 16:48:20 10/18/19 19 10/17/2018 CMP, serum or plasm a AST 19 U/L 0-37 Not Available [facility] [address] [place], [address], 10/17/2018 16:48:20 10/18/19 19 10/17/2018 CMP, serum or plasm a ALT 17 U/L 0-40 Not Available [facility] [address] [place], [address], 10/17/2018 16:48:20 10/18/19 19 10/17/2018 CMP, serum or plasm a globulin 2.6 g/dL 1-4.8 Not Available [facility] [address] [place], [address], 10/17/2018 16:48:20 10/18/19 19 10/17/2018 CMP, serum or plasm a eGFR 58 mL/mi n/1.7 3m2 >59 low If patie nt is black , multi ply resul t by 1.159 . Estim ated glome rular filtr ation rate calcu lated using the CKD-E PI equat ion. Not Available [facility] [address] [place], [address], 10/17/2018 16:48:20 10/18/19 19 10/17/2018 CMP, serum or plasm a anion gap 17 mmol/ L 10-20 Not Available [facility] [address] [place] [address], [address], 10/17/2018 16:48:20 10/18/19 19 10/17/2018 C-andra ctive prote in, quant itati ve, serum or plasm a C reactive protein 6.2 mg/L 0.0-4. 0 high Not Available [facility] [address] [place], [address], 10/17/2018 16:48:21 01/17/20 19 01/16/2019 CBC w/ auto diff WBC 10.98 K/uL 3.40-1 1.20 Not Available [facility] [address] [place], [address], 01/16/2019 16:23:22 01/17/20 19 01/16/2019 CBC w/ auto diff RBC 4.04 M/uL 3.80-4 .80 Not Available [facility] [address] [place], [address], 01/16/2019 16:23:22 01/17/20 19 01/16/2019 CBC w/ auto diff HGB 11.9 g/dL 12.0-1 5.0 low Not Available [facility] ([facility] [address] [place], [address], 01/16/2019 16:23:22 01/17/20 19 01/16/2019 CBC w/ auto diff HCT 35.3 % 36.0-4 6.0 low Not Available [facility] [address] [place], [address], 01/16/2019 16:23:22 01/17/20 19 01/16/2019 CBC w/ auto diff plt 274 K/uL 130-40 0 Not Available [facility] [address] [place] [address], [address], 01/16/2019 16:23:22 01/17/20 19 01/16/2019 CBC w/ auto diff MCV 87.4 fL 79.0-9 8.0 Not Available [facility] [address] [place], [address], 01/16/2019 16:23:22 01/17/20 19 01/16/2019 CBC w/ auto diff MCH 29.5 pg 27.0-3 4.8 Not Available [facility] [address] [place], [address], 01/16/2019 16:23:22 01/17/20 19 01/16/2019 CBC w/ auto diff MCHC 33.7 g/dL 31.5-3 6.0 Not Available [facility] [address] [place], [address], 01/16/2019 16:23:22 01/17/20 19 01/16/2019 CBC w/ auto diff RDW 13.3 % 10.8-1 4.6 Not Available [facility] [address] [place], [address], 01/16/2019 16:23:22 01/17/20 19 01/16/2019 CBC w/ auto diff MPV 11.7 fL 9.4-12 .4 Not Available [facility] [address] [place], [address], 01/16/2019 16:23:22 01/17/20 19 01/16/2019 CBC w/ auto diff NRBC 0.00 /100_ WBCs 0.00 Not Available [facility] [address] [place], [address], 01/16/2019 16:23:22 01/17/20 19 01/16/2019 CBC w/ auto diff absolute NRBC 0.00 K/uL 0.00 Not Available [facility] [address] [place], [address], 01/16/2019 16:23:22 01/17/20 19 01/16/2019 CBC w/ auto diff diff method Auto Not Available [facility] [address] [place], [address], 01/16/2019 16:23:22 01/17/20 19 01/16/2019 CBC w/ auto diff neuts 81.4 % 45.30- 77.70 high Not Available [facility] [address] [place], [address], 01/16/2019 16:23:22 01/17/20 19 01/16/2019 CBC w/ auto diff lymphs 10.6 % 12.30- 39.70 low Not Available [facility] [address] [place], [address], 01/16/2019 16:23:22 01/17/20 19 01/16/2019 CBC w/ auto diff monos 4.7 % 4.10-1 2.80 Not Available [facility] [address] [place], [address], 01/16/2019 16:23:22 01/17/20 19 01/16/2019 CBC w/ auto diff eos 2.0 % 0-7.2 Not Available [facility] [address] [place], [address], 01/16/2019 16:23:22 01/17/20 19 01/16/2019 CBC w/ auto diff basos 1.0 % 0-2.80 Not Available [facility] [address] [place], [address], 01/16/2019 16:23:22 01/17/20 19 01/16/2019 CBC w/ auto diff granulocytes , immature (%) 0.3 % 0.0-0. 9 Not Available [facility] [address] [place], [address], 01/16/2019 16:23:22 01/17/20 19 01/16/2019 CBC w/ auto diff absolute neuts 8.94 K/uL 1.40-7 .70 high Not Available [facility] [address] [place], [address], 01/16/2019 16:23:22 01/17/20 19 01/16/2019 CBC w/ auto diff absolute lymphs 1.16 K/uL 0.60-3 .20 Not Available [facility] ([facility] [address] [place], [address], 01/16/2019 16:23:22 01/17/20 19 01/16/2019 CBC w/ auto diff absolute monos 0.52 K/uL 0.11-0 .59 Not Available [facility] [address] [place], [address], 01/16/2019 16:23:22 01/17/20 19 01/16/2019 CBC w/ auto diff absolute eos 0.22 K/uL 0.01-0 .50 Not Available [facility] [address] [place], [address], 01/16/2019 16:23:22 01/17/20 19 01/16/2019 CBC w/ auto diff absolute basos 0.11 K/uL 0.00-0 .08 high Not Available [facility] ([facility] [address] [place], [address], 01/16/2019 16:23:22 01/17/20 19 01/16/2019 CBC w/ auto diff granulocytes , immature 0.03 K/uL 0.00-0 .05 Not Available [facility] [address] [place], [address], 01/16/2019 16:23:22 01/17/20 19 01/16/2019 eryth rocyt e sedim entat ion rate by prema larsen metho d ESR 9 mm/h 0-30 Not Available [facility] [address] [place], [address], 01/16/2019 17:39:50 01/17/20 19 01/16/2019 C-andra ctive prote in, quant itati ve, serum or plasm a C reactive protein 5.2 mg/L 0.0-4. 0 high Not Available [facility] [address] [place], [address], 01/16/2019 18:50:56 01/17/20 19 01/16/2019 CMP, serum or plasm a sodium 141 mmol/ L 133-14 6 Not Available [facility] [address] [place], [address], 01/16/2019 22:11:00 01/17/20 19 01/16/2019 CMP, serum or plasm a potassium 4.4 mmol/ L 3.3-5. 1 Not Available [facility] ([facility] [address] [place], [address], 01/16/2019 22:11:00 01/17/20 19 01/16/2019 CMP, serum or plasm a chloride 102 mmol/ L 96-108 Not Available [facility] [address] [place], [address], 01/16/2019 22:11:00 01/17/20 19 01/16/2019 CMP, serum or plasm a CO2 23 mmol/ L 21-35 Not Available [facility] [address] [place], [address], 01/16/2019 22:11:00 01/17/20 19 01/16/2019 CMP, serum or plasm a BUN 23 mg/dL 6-19 high Not Available [facility] [address] [place], [address], 01/16/2019 22:11:00 01/17/20 19 01/16/2019 CMP, serum or plasm a creatinine 1.50 mg/dL 0.5-1. 5 Not Available [facility] ([facility] [address] [place], [address], 01/16/2019 22:11:00 01/17/20 19 01/16/2019 CMP, serum or plasm a glucose 161 mg/dL 70-99 high Not Available [facility] ([facility] [address] [place], [address], 01/16/2019 22:11:00 01/17/20 19 01/16/2019 CMP, serum or plasm a albumin 4.0 g/dL 3.9-4. 8 Not Available [facility] ([facility] [address] [place], [address], 01/16/2019 22:11:00 01/17/20 19 01/16/2019 CMP, serum or plasm a total protein 6.8 g/dL 6.5-8. 0 Not Available [facility] ([facility] [address] [place], [address], 01/16/2019 22:11:00 01/17/20 19 01/16/2019 CMP, serum or plasm a calcium 9.0 mg/dL 8.4-10 .3 Not Available [facility] ([facility] [address] [place], [address], 01/16/2019 22:11:00 01/17/20 19 01/16/2019 CMP, serum or plasm a alkaline phosphatase 78 U/L 39-117 Not Available [facility] (Out[facility]) [address] [place], [address], 01/16/2019 22:11:00 01/17/2001/16/2019 CMP, serum or plasm a total bilirubin 0.4 mg/dL 0.0-1. 2 Not Available [facility] ([facility] [address] [place], [address], 01/16/2019 22:11:00 01/17/2001/16/2019 CMP, serum or plasm a AST 21 U/L 0-37 Not Available [facility] ([facility] [address] [place], [address], 01/16/2019 22:11:00 01/17/2001/16/2019 CMP, serum or plasm a ALT 19 U/L 0-40 Not Available [facility] ([facility] [address] [place], [address], 01/16/2019 22:11:00 01/17/2001/16/2019 CMP, serum or plasm a globulin 2.8 g/dL 1-4.8 Not Available [facility] ([facility] [address] [place], [address], 01/16/2019 22:11:00 01/17/20 19 01/16/2019 CMP, serum or plasm a eGFR 35 mL/mi n/1.7 3m2 >59 low If patie nt is black , multi ply resul t by 1.159 . Estim ated glome rular filtr ation rate calcu lated using the CKD-E PI equat ion. Not Available [facility] ([facility]) [address] [place], [address], 01/16/2019 22:11:00 01/17/20 19 01/16/2019 CMP, serum or plasm a anion gap 20 mmol/ L 10-20 Not Available [facility] ([facility] [address] [place], [address], 01/16/2019 22:11:00 06/12/20 18 06/12/2018 xr chest [...] result Pt states sob NATALIE CROWELL N [facility] [address] [place], [address], 06/12/2018 20:56:35 09/07/19 19 09/06/2018 bd dxa [...] Jane MD 9 Final result NATALIE Kaur [facility] [address] [place], [address], 09/08/2018 18:43:16 Result Notes None recorded. 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 603281723 Active 2017 admitted to [facility]; lamicatal 11/2017 MD [place], [address], [facility] 8 20:36:49 Gastroes ophageal reflux disease 572439947 Active 2018 Kassie Reynolds [facility] 9 15:48:05 Mixed hyperlip idemia 732583295 Active 2001 Natalie Reveles MD [address] [place] [address] Betty Hernán[place], [address], [facility] 6 12:19:12 Colitis, enteriti s and gastroen teritis presumed infectio us 869844645 Completed 200611/06/2009 Natalie Reveles MD [address] [place] [address] Betty Hernán[place], [address], [facility] 6 15:03:24 Nausea 307273748 Completed 200611/06/2009 Natalie Reveles MD [address] [place] [address] Betty Hernán[place], [address], [facility] 6 15:03:24 Essentia l hyperten lindsay 53682703 Completed 200311/06/2009 Natalie Reveles MD [address] [place] [address] Betty Hernán[place], [address], [facility] 6 15:03:24 Nausea and vomiting 55199200 Completed 200611/06/2009 MD Brooklynn Norwood Gordon Betty Hernán[place], [address], [facility] 6 15:03:24 Cellulit is and abscess of buttock 859240810 Completed 200011/06/2009 MD [place], [address], [facility] 6 15:03:24 Urinary tract infectio us disease 32304911 Completed 200711/06/2009 Natalie Reveles MD [address] [place] [address] Betty Hernán[place], [address], [facility] 6 15:03:24 Benign essentia l hyperten lindsay 3759250 Active 2001 Natalie Reveles MD [address] [place], [place] [address], [address], [facility] 6 12:19:12 Acute cystitis 44862418 Completed 200411/06/2009 Natalie Reveles MD [address] [place], [place] [address], [address], [facility] 6 15:03:24 Acute pain 939487524 Completed 200711/06/2009 Natalie Reveles MD [address] [place] [address] Betty Hernán[place], [address], [facility] 6 15:03:24 Allergic rhinitis 96559222 Completed 200511/06/2009 Natalie Reveles MD [address] [place] [address] Betty Hernán[place], [address], [facility] 6 15:03:24 Osteoart hritis 751792711 Completed 200711/06/2009 Natalie Reveles MD [address] [place], [place] [address], [address], [facility] 6 15:03:24 Sciatica 65119164 Active 2007 spinal stenosis Natalie Reveles MD [address] [place], [place] [address], [address], [facility] 6 15:03:24 Diabetic on insulin 137902448 Active Natalie Reveles MD [address] [place], [place] [address], [address], [facility] 6 12:19:12 Type 2 diabetes 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 complica tion 329179478 Active 2004 Natalie Reveles MD [address] [place] [address] Betty Hernán[place], [address], [facility] 6 12:19:12 Anemia 012315880 Completed 200611/06/2009 Natalie Reveles MD [address] [place], [place] [address], [address], [facility] 6 15:03:24 Acute maxillar y sinusiti s 63441537 Completed 200311/06/2009 Natalie Reveles MD [address] [place], [place] [address], [address], [facility] 6 15:03:24 Arteriti s 13326295 Completed 200511/06/2009 Natalie Reveles MD [address] [place], [place] [address], [address], [facility] 6 15:03:24 Uncontro lled type 2 diabetes mellitus 940147978 Completed 200606/12/2013 Natalie Reveles MD [address] [place], [place] [address], [address], [facility] 6 15:03:24 Degenera tive joint disease involvin g multiple joints 704943972 Completed 200006/12/2013 Natalie Reveles MD [address] [place], [place] [address], [address], [facility] 6 15:03:24 Hyperlip idemia 74319412 Completed 200111/06/2009 Natalie Reveles MD [address] [place], [place] [address], [address], [facility] 6 15:03:24 Backache 824231401 Completed 200711/06/2009 Ntaalie Reveles MD [address] [place], [place] [address], [address], [facility] 6 15:03:24 Malaise and fatigue 933823355 Completed 200111/06/2009 [place], [address], [facility] 6 15:03:24 Contact dermatit is 79016741 Completed 11/06/2009 Natalie Reveles MD [address] [place] [address] Betty Hernán[place], [address], [facility] 6 15:03:24 Cough 25522131 Completed 200411/06/2009 Natalie Reveles MD [address] [place] [address] Betty Hernán[place], [address], [facility] 6 15:03:24 Rheumato id arthriti s 12726735 Active sero-nega tive Natalie Reveles MD [address] [place] [address] Betty Hernán[place], [address], [facility] 6 12:19:12 Fever 858661854 Completed 200611/06/2009 aNtalie Reveles MD [address] [place] [address] Betty Hernán[place], [address], [facility] 6 15:03:24 Allergic asthma without status asthmati cus 51165214 Active 2002 Natalie Reveles MD [address] [place] [address] Betty Hernán[place], [address], [facility] 6 15:03:24 Acute sinusiti s 19906469 Completed 05/14/2013 Natalie Reveles MD [address] [place] [address] Betty Hernán[place], [address], [facility] 6 15:03:24 Common cold 91303022 Completed 200211/06/2009 Natalie Reveles MD [address] [place] [address] Betty Hernán[place], [address], [facility] 6 15:03:24 Common cold 64556371 Completed 05/14/2013 Natalie Reveles MD [address] [place] [address] Betty Hernán[place], [address], [facility] 6 15:03:24 On examinat ion - a rash Completed 200511/06/2009 Natalie Reveles MD [address] [place], [place] [address], [address], [facility] 6 15:03:24 General symptom 432630597 Completed 200611/06/2009 Natalie Reveles MD [address] [place], [place] [address], [address], [facility] 6 15:03:24 Blood chemistr y outside referenc e range 551918568 Completed 200311/06/2009 Natalie Reveles MD [address] [place], [place] [address], [address], [facility] 6 15:03:24 Hypothyr oidism 57620306 Completed 200607/22/2015 Natalie Reveles MD [address] [place], [place] [address], [address], [facility] 6 15:03:24 Mononeur itis 19083029 Active 2003 Natalie Reveles MD [address] [place], [place] [address], [address], [facility] 6 15:03:24 Primary fibromya lgia syndrome 72548421 Completed 200211/06/2009 Natalie Reveles MD [address] [place], [place] [address], [address], [facility] 6 15:03:24 Vaginiti s and vulvovag initis Completed 200011/06/2009 Natalie Reveles MD [address] [place], [place] [address], [address], [facility] 6 15:03:24 Problem Notes None recorded. Procedures Surgical History Date Name Laterality Status Provider Name and Address Organization Details Recorded Time 9 Medicare Wellness Visit completed Sarah Jewell MA [facility] 12/31/2018 14:43:15 8 Medicare Wellness Visit completed Liz Boyce CMA [facility] 12/27/2017 15:09:17 8 Post hospital/SNF follow-up/[facility] sitional Care completed Liz Boyce CMA [facility] 11/13/2017 14:14:12 8 Nebulizer Tx completed Karmen White LPN [facility] 08/02/2017 14:24:48 7 Medicare Wellness Visit completed Mary Finley MA [facility] 12/25/2016 09:27:15 Imaging Results Imaging Date Name Status LastModified by Organiz ation Details LastModified Time 06/12/2018 xr chest Pa and lateral 2 views completed [facility] [address] [place], [address], 06/12/2018 20:56:35 09/06/2018 bd dxa axial (spine) with hip completed [facility] [address] [place], [address], 09/08/2018 18:43:16 Procedure Notes None recorded. Medical Equipment None Reported. Allergies Allergen ID Allergen Name Allergen Category Reaction Reaction Severity Criticality Documentation Date Start Date Code Code System Note Provider Name and Address Organization Details Recorded Time 371504 doxycycli ne Not available nausea Not available Not available 11/27/2013 3640 RxNorm Kacey Espinoza MA [facility] 4 10:10:57 197985 codeine medicatio n nausea Not available Not available 08/17/2015 2670 RxNorm Angelica Hicks CMA [facility] 6 16:23:36 39293 Substance with sulfonami de structure and antibacte rial mechanism of action (substanc e) medicatio n hives Not available Not available 06/29/2010 25770 8003 SNOMED Not Available [facility] 1 06:05:41 Medications Name Sig Start Date [...] EVERY DAY AT BEDTIME 11/13 completed per [facility] d/c 11/08/17 new dose as follows: [...] Updated DateTime 8 147.95 cm 35.9 kg/m2 98880.1 8 g 80 /min 97 % 97 % 126 mm[Hg] 74 mm[Hg] Sarah Jewell [facility] 8 10:50:58 Date Recorded Body height Body mass index (BMI) Body weight Heart rate Systolic blood pressure Diastolic blood pressure Provider Name and Address Organization Details Last Updated DateTime 9 147.95 cm 35.7 kg/m2 57881.6 9 g 64 /min 90 mm[Hg] 54 mm[Hg] Marcia Baron MA [facility] 9 11:24:40 Date Recorded Body height Body mass index (BMI) Body weight Oxygen saturation Oxygen saturation in Arterial blood by Pulse oximetry Heart rate Systolic blood pressure Diastolic blood pressure Provider Name and Address Organization Details Last Updated DateTime 9 147.95 cm 36.3 kg/m2 52492.7 6 g 96 % 96 % 76 /min 120 mm[Hg] 62 mm[Hg] Sarah Jewell MA [facility] 9 14:52:36 Date Recorded Systolic blood pressure Diastolic blood pressure Systolic blood pressure Diastolic blood pressure Provider Name and Address Organization Details Last Updated DateTime 12/31/2018 120 mm[Hg] 60 mm[Hg] 120 mm[Hg] 60 mm[Hg] Kassie Reynolds [facility] 9 15:58:43 Date Recorded Body height Body mass index (BMI) Body weight Body temperature Heart rate Oxygen saturation Oxygen saturation in Arterial blood by Pulse oximetry Systolic blood pressure Diastolic blood pressure Provider Name and Address Organization Details Last Updated DateTime 9 147.95 cm 35.9 kg/m2 60070.5 8 g 97.9 [degF] 88 /min 96 % 96 % 114 mm[Hg] 62 mm[Hg] [facility] 09:44:29 Social History Question Answer Notes [...] Caffeine Consumption? Moderate 4 Cups Tea Daily [id number] Information not available 12/27/2017 How Much Tobacco [...] toxoid, unspecified formulation 1 completed Not Available [facility] 07/12/2019 02:34:13 influenza, unspecified formulation 0 completed Not Available [facility] 05/10/2011 05:22:52 Influenza, split virus, trivalent, preservative 1 completed Mary Watts MA [facility] 05/17/2011 14:09:08 Tdap 1 completed Fang Robison RN [facility] 06/12/2011 16:12:51 influenza, unspecified formulation 2 [facility] 16:38:35 influenza, unspecified formulation 3 completed Mary Finley MA [facility] 06/12/2013 16:12:54 influenza, unspecified formulation 4 [facility]2014 15:26:51 influenza, unspecified formulation 5 [facility] 04/[facility]2015 14:13:29 Pneumococcal conjugate PCV 13 8 completed Not Available [facility] 07/12/2019 02:22:36 Hep B, adult 9 completed Not Available [facility] 07/12/2019 02:34:54 influenza, unspecified formulation 6 completed Not Available [facility] 07/26/2019 02:10:42 pneumococcal polysaccharide PPV23 9 completed Not Available [facility] 07/12/2019 02:24:02 Influenza, split virus, quadrivalent, preservative 7 completed Liz Boyce CMA [facility] 05/03/2017 14:36:38 Past Encounters Encounter ID Performer Location Encounter Start Date Encounter Closed Date Diagnosis/Indication Diagnosis SNOMED-CT Code Diagnosis ICD10 Code Diagnosis Note [id number] [facility], OFFICE 70 [place] [address] 09/14/2000 12:00:00 07/15/2008 02:02:29 [id number] [facility], OFFICE [address] [place] [address] 6 10/16/2000 10:45:00 07/15/2008 02:02:29 [id number] [facility], OFFICE 70 [facility] [place] [address] 6 02/28/2001 14:15:00 07/15/2008 02:02:29 [id number] [facility], OFFICE 70 [facility] [place] [address] 6 03/01/2001 09:45:00 07/15/2008 02:02:29 [id number] [facility], OFFICE 70 [facility] [place] [address] 6 10/22/2001 09:00:00 07/15/2008 02:02:29 [id number] LAB - [facility] [address] [place] [address] 6 10/22/2001 10:30:00 07/15/2008 02:02:29 [id number] RAJEEV [facility], OFFICE 70 [facility] [address] 6 12/02/2001 08:19:54 07/15/2008 02:02:29 [id number] Radiology , [facility] [address] [place] [address] 1 12/02/2001 11:21:25 07/15/2008 02:02:29 [id number] LAB - [facility] 70 [facility] [place] [address] 6 04/24/2002 08:28:24 07/15/2008 02:02:29 [id number] RAJEEV [facility], OFFICE 70 [facility] [place] [address] 6 04/30/2002 16:42:20 07/15/2008 02:02:29 [id number] LAB - [facility] 70 [facility] [place] [address] 6 07/22/2002 09:02:09 07/15/2008 02:02:29 [id number] [facility], OFFICE 70 [facility] [place] [address] 6 07/29/2002 16:39:59 07/15/2008 02:02:29 [id number] RAJEEV [facility], OFFICE 70 [facility] [place] [address] 6 10/30/2002 11:15:27 07/15/2008 02:02:29 [id number] LAB - [facility] 70 [facility] [place] [address] 6 10/30/2002 12:12:41 07/15/2008 02:02:29 [id number] RAJEEV [facility], OFFICE 70 [facility] [place] [address] 6 12/31/2002 10:02:51 07/15/2008 02:02:29 [id number] LAB - [facility] [address] [place] [address] 6 12/31/2002 00:00:00 07/15/2008 02:02:29 [id number] LAB - [address] [place] [address] 1 01/13/2003 11:28:31 07/15/2008 02:02:29 [id number] Radiology , [facility] [address] [place] [address] 1 01/15/2003 08:55:54 07/15/2008 02:02:29 [id number] RAJEEV [facility], OFFICE 70 [facility] [address] 6 07/03/2003 16:41:59 07/04/2003 10:51:01 [id number] RAJEEV [facility], OFFICE 70 [facility] [place] [address] 6 10/13/2003 14:52:44 10/14/2003 08:39:08 [id number] LAB - [facility] [address] [place] [address] 6 10/22/2003 08:14:06 10/22/2003 08:14:10 [id number] RAJEEV [facility], OFFICE 70 [facility] [place] [address] 6 12/10/2003 14:34:40 12/12/2003 13:55:58 [id number] LAB - [facility] [address] [place] [address] 6 03/30/2004 08:05:15 03/30/2004 08:05:20 [id number] RAJEEV [facility], OFFICE 70 [facility] [place] [address] 6 07/04/2004 13:43:22 07/04/2004 17:14:21 [id number] RAJEEV [facility], OFFICE 70 [facility] [place] [address] 6 07/26/2004 09:25:43 07/27/2004 08:19:25 [id number] RAJEEV [facility], OFFICE 70 [facility] [place] [address] 6 08/08/2004 15:52:00 08/09/2004 08:55:32 [id number] RAJEEV [facility], OFFICE [address] [place] [address] 6 09/05/2004 07:59:25 09/05/2004 15:25:12 [id number] FP, [facility], OFFICE [address] [place] [address] 6 09/19/2004 13:51:52 09/19/2004 17:45:01 [id number] LAB - [facility] [address] [place] [address] 6 10/05/2004 08:38:59 10/05/2004 08:39:04 [id number] , [facility], OFFICE [address] [place] [address] 6 10/10/2004 07:58:34 10/10/2004 14:31:17 [id number] [facility], OFFICE [address] [place] [address] 6 11/03/2004 13:44:09 07/15/2008 02:02:29 [id number] LAB - [facility] [address] [place] [address] 6 01/16/2005 08:22:10 01/16/2005 08:22:26 [id number] [facility], OFFICE [address] [place] [address] 6 01/24/2005 08:00:36 07/15/2008 02:02:29 [id number] Radiology , [facility] [address] [place] [address] 6 02/13/2005 11:40:53 07/15/2008 02:02:29 [id number] Radiology , [facility] [address] [place] [address] 6 02/13/2005 00:00:00 07/15/2008 02:02:29 [id number] [facility], OFFICE [address] [place] [address] 6 04/12/2005 08:22:15 07/15/2008 02:02:29 [id number] , [facility], OFFICE [address] [place] [address] 6 04/28/2005 16:18:32 07/15/2008 02:02:29 [id number] LAB - [facility] [address] [place] [address] 6 08/22/2005 08:28:59 08/22/2005 08:29:02 [id number] [facility], OFFICE [address] [place] [address] 6 08/28/2005 15:40:14 08/29/2005 08:44:57 [id number] [facility], OFFICE [address] [place] [address] 6 09/21/2005 14:22:16 07/15/2008 02:02:29 [id number] LAB - [facility] LIS[place]DRO Banks62[address] 6 09/21/2005 15:10:47 09/21/2005 15:11:05 [id number] LAB - [facility] LIS[place] Banks62[address] 6 01/23/2006 08:32:14 01/23/2006 08:32:24 [id number] [facility], OFFICE 70 LISANDRO SANTA62[address] 6 02/05/2006 11:04:33 02/06/2006 09:17:09 [id number] [facility], OFFICE [address] [place] [address] 6 03/21/2006 10:05:20 03/22/2006 08:20:24 [id number] [facility], OFFICE 70 LISANDRO SANTA62[address] 6 04/04/2006 11:34:15 04/08/2006 09:14:42 [id number] LAB - [facility] [place] [address] 6 04/25/2006 08:18:53 04/25/2006 08:19:04 [id number] [facility], OFFICE [address] [place] [address] 6 05/03/2006 09:59:10 05/04/2006 08:46:05 [id number] Radiology , [facility] [place] [address] 6 05/08/2006 08:08:08 07/15/2008 02:02:29 [id number] Radiology , [facility] [address] [place] [address] 6 05/08/2006 00:00:00 07/15/2008 02:02:29 [id number] [facility], OFFICE [address] [place] [address] 6 07/31/2006 08:56:23 07/31/2006 14:16:09 [id number] LAB - [facility] [address] [place] [address] 6 07/31/2006 10:36:02 07/31/2006 10:36:06 [id number] RAJEEV [facility], OFFICE 70 LIS[place]DRO SANTA62[address] 6 08/07/2006 08:36:04 08/08/2006 08:58:07 [id number] LAB - [facility] LIS[place]DR[place] Banks62[address] 6 10/22/2006 08:25:40 10/22/2006 08:25:45 [id number] RAJEEV [facility], OFFICE 70 LISANDRO SANTA62-[address] 6 10/29/2006 07:59:04 10/29/2006 10:37:03 [id number] LAB - [facility] 70 LISANDRO Maldonado62-146 6 10/30/2006 08:27:25 10/30/2006 08:27:30 [id number] RAJEEV [facility], OFFICE 70 LISANDRO SANTA62[address] 6 11/26/2006 10:44:18 11/26/2006 15:10:48 [id number] LAB - [facility] LIS[place] Banks62-[address] 6 11/26/2006 11:29:37 11/26/2006 11:29:44 [id number] RAJEEV [facility], OFFICE 70 LISANDRO SANTA62-[address] 6 12/06/2006 14:26:14 12/07/2006 08:30:34 [id number] RAJEEV [facility], OFFICE 70 LISANDRO SANTA62-[address] 6 12/10/2006 13:46:03 12/11/2006 09:05:34 [id number] LAB - [facility] LISANDRO Banks62-146 6 12/10/2006 14:31:03 12/10/2006 14:31:43 [id number] LAB - [facility] LISANDRO Banks62-146 6 01/04/2007 07:54:29 01/04/2007 07:54:36 [id number] LAB - [facility] LISANDRO Banks62-146 6 04/08/2007 08:14:44 04/08/2007 08:14:49 [id number] RAJEEV [facility], OFFICE [address] [place] [address] 6 04/15/2007 16:27:24 04/18/2007 08:58:27 [id number] [facility] 70 LISANDRO Maldonado62-[address] 6 06/29/2007 09:23:36 07/01/2007 09:13:11 [id number] RAJEEV [facility], OFFICE 70 LISANDRO SANTA62-[address] 6 09/20/2007 14:25:55 07/15/2008 02:02:29 [id number] RAJEEV [facility], OFFICE [address] [place] [address] 6 10/08/2007 14:05:16 07/15/2008 02:02:29 [id number] LAB - [facility] 70 LISANDRO Maldonado62-146 6 10/29/2007 08:19:39 10/29/2007 08:19:43 [id number] RAJEEV [facility], OFFICE 70 LISANDRO SANTA62-146 6 11/05/2007 09:43:59 07/15/2008 02:02:29 [id number] LAB - [facility] LISANDRO Banks62-146 6 11/12/2007 08:23:38 11/12/2007 08:23:44 [id number] LAB - [facility] LISANDRO Banks62-146 6 01/17/2008 12:48:01 01/17/2008 12:48:16 [id number] RAJEEV [facility], OFFICE [address] [place] [address] 6 01/24/2008 14:09:47 07/15/2008 02:02:29 [id number] LAB - [facility] [place] [address] 6 01/24/2008 15:39:37 01/24/2008 15:40:02 [id number] LAB - [facility] [place] [address] 6 01/24/2008 00:00:00 07/15/2008 02:02:29 [id number] [facility], OFFICE [address] [place] [address] 6 03/30/2008 10:44:06 07/15/2008 02:02:29 [id number] Physical Therapy, [facility] [place]62[address] 6 03/31/2008 11:58:11 04/01/2008 09:12:25 [id number] Physical Therapy, [facility] LIS[place] Banks62-[address] 6 04/02/2008 08:36:13 04/02/2008 16:25:15 [id number] Physical Therapy, [facility] [place] [address] 6 04/07/2008 08:34:12 04/07/2008 14:43:31 [id number] Physical Therapy, [facility] Maribeth [facility] [address] 6 04/09/2008 08:37:17 04/09/2008 15:42:30 [id number] Physical [facility], [facility] Maribeth [facility] [place] [address] 6 04/14/2008 08:31:29 04/14/2008 14:21:06 [id number] LAB - [facility] Maribeth [facility] [address] 6 07/07/2008 11:15:56 07/07/2008 11:16:03 [id number] [facility], OFFICE 70 [facility] [place] [address] 6 07/14/2008 13:28:43 07/24/2008 13:00:23 [id number] Radiology , [address] [place] [address] 6 12/19/2008 08:52:20 12/22/2008 14:08:26 [id number] [facility], OFFICE [address] [place] [address] 6 06/24/2009 14:39:32 06/24/2009 16:02:12 [id number] [facility], OFFICE [address] [place] [address] 6 10/25/2009 13:26:11 11/10/2009 13:32:16 [id number] Radiology , [facility] 70 [place] [address] 6 10/25/2009 14:29:01 10/26/2009 11:21:38 [id number] [facility], OFFICE [address] [place] [address] 6 06/29/2010 11:23:06 07/26/2010 11:56:31 [id number] [facility], OFFICE [address] [place] [address] 6 09/22/2010 13:34:57 09/22/2010 17:04:13 [id number] [facility], OFFICE [address] [place] [address] 6 04/05/2011 09:42:34 04/05/2011 10:07:18 [id number] [facility], OFFICE [address] [place] [address] 6 04/10/2011 09:24:01 04/11/2011 11:28:27 [id number] [facility], OFFICE [address] [place] [address] 6 05/17/2011 13:46:28 05/17/2011 15:12:35 [id number] [facility] , [facility] 70 [place] [address] 6 05/17/2011 14:58:54 05/22/2011 15:07:56 [id number] [facility], OFFICE [address] [place] [address] 6 05/26/2011 16:22:49 05/29/2011 14:16:46 [id number] [facility], OFFICE 70 [place] [address] 6 11/21/2011 11:10:29 11/21/2011 12:20:19 [id number] Natalie Reveles MD [facility], OFFICE [address] [place] [address] 6 05/21/2012 15:50:05 05/21/2012 17:16:10 [id number] ENRIKE Haq , [facility], OFFICE [address] [place] [address] 6 08/06/2012 09:44:43 08/06/2012 10:34:24 [id number] Natalie Reveles MD [facility], OFFICE [address] [place] [address] 6 11/01/2012 15:29:43 11/04/2012 10:55:05 [id number] Natalie Reveles MD [facility], OFFICE [address] [place] [address] 6 02/21/2013 11:09:19 02/21/2013 12:15:52 Benign essential hypertension 7296400 continue to work on diet ,exercisea nd lowering salt intake as discussed Mixed hyperlipidemia 604293100 continue to work on diet and exercise as discussed Diabetic on insulin 489561069 Rheumatoid arthritis 02226995 [id number] Kacey Espinoza MA , [facility], OFFICE [address] [place] [address] 6 06/12/2013 15:53:14 06/12/2013 17:00:00 Benign essential hypertension 2296189 continue to work on diet ,exercisea nd lowering salt intake as discussed Mixed hyperlipidemia 303111478 continue to work on diet and exercise as discussed Adult [facility] th examination [id number] see Risk Assessment and Lifestyle Change Counseling section above Diabetic on insulin 291975905 Neuropathy due to diabetes mellitus 620325869 Mononeuritis 68425470 Rheumatoid arthritis 55090820 [id number] Mary Finley MA , [facility], OFF[address] [place] [address] 6 06/19/2013 13:36:30 06/19/2013 14:00:11 Acute sinusitis 72953896 sx tx including afrin- strt ab if no relief Common cold 22461819 Upp er Respirator y Infection Drink plenty [...] days, or you have a high fever. [id number] Mary Finley MA , [facility], OFFICE [address] [place] [address] 6 09/23/2013 13:47:10 09/24/2013 10:04:00 Sinusitis 94436754 [id number] Yusuf Song MA , [facility], OFFICE [address] [place] [address] 6 09/29/2013 16:41:29 09/30/2013 09:41:00 Acute sinusitis 74099147 [id number] LISANDRO Perla, [facility], OFFICE [address] [place] [address] 6 11/27/2013 09:59:23 11/27/2013 16:10:44 Cough 87817836 [id number] LISANDRO Cates, [facility], OFFICE [address] [place] [address] 6 12/11/2013 14:25:08 12/11/2013 15:34:31 Benign essential hypertension 9429132 continue to work on diet ,exercisea nd lowering salt intake as discussed Mixed hyperlipidemia 096788283 continue to work on diet and exercise as discussed Neuropathy due to diabetes mellitus 432415676 Diabetic on insulin 779846463 [id number] Natalie Reveles MD , [facility], OFFICE [address] [place] [address] 6 06/23/2014 15:01:46 06/23/2014 16:03:39 Spinal stenosis of lumbar region 98456067 Neuropathy due to diabetes mellitus 178465723 Diabetic on insulin 002050426 Allergic a sthma without status asthmaticus 95108070 Mixed hyperlipidemia 745167542 continue to work on diet and exercise as discussed Mononeuritis 17622434 Rheumatoid arthritis 94802223 Type 2 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 379870768 [id number] Mary Finley MA , [facility], OFFICE [address] [place] [address] 6 12/31/2014 14:26:47 12/31/2014 15:36:09 Benign essential hypertension 0828695 continue to work on diet, exercise, and lowering salt intake as discussed Blood pressure at goal Mixed hyperlipidemia 977625765 continue to work on diet and exercise as discussed Diabetic on insulin 795433085 Rheumatoid arthritis 51513593 [id number] Natalie Reveles MD , [facility], OFFICE [address] [place] [address] 6 04/29/2015 13:53:38 04/29/2015 14:45:02 Benign essential hypertension 9983980 I10 continue to work on diet, exercise, and lowering salt intake as discussed Mixed hyperlipidemia 267 640479 E78.2 continue to work on diet and exercise as discussed Diabetic on insulin 1707 55775 Z79.4 Type 2 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 201713403 E11.9 Neuropathy due to diabetes mellitus 651596160 E11.42 Allergic a sthma without status asthmaticus 16917280 J45.909 Rheumatoid arthritis 698 00842 M06.9 [id number] Natalie Reveles MD , [facility], OFFICE [address] [place] [address] 6 07/22/2015 14:47:13 07/22/2015 15:54:33 Benign essential hypertension 8403372 I10 Blood pressure at goal continue to work on diet, exercise, and lowering salt intake as discussed Mixed hyperlipidemia 267 679513 E78.2 continue to work on diet and exercise as discussed Adult heal th examination 903727335 Z00.00 see Risk Assessment and Lifestyle Change Counseling section above Neuropathy due to diabetes mellitus 853605984 E11.42 Diabetic on insulin 1707 68530 Z79.4 Hypothyroidism 51081735 E03.9 Rheumatoid arthritis 698 33076 M06.9 Spinal shara nosis of lumbar region 91029881 M48.06 Type 2 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 567185995 E11.9 [id number] Nilam Duane , [facility], OFFICE [address] [place] [address] 6 08/17/2015 16:10:28 08/17/2015 16:58:40 Acute sinusitis 60815818 J01.90 Eczema 68341973 L30.9 Asthma 148385389 J45.90 9 Allergic rhinitis 063440 04 J30.9 [id number] Natalie Reveles MD , [facility], OFFICE [address] [place] [address] 6 11/23/2015 14:02:11 11/23/2015 15:24:07 Benign essential hypertension 1692849 I10 Blood pressure at goal continue to work on diet, exercise, and lowering salt intake as discussed Mixed hyperlipidemia 267 852753 E78.2 Cholestero l is at goal Continue to work on diet and exercise as discussed Neuropathy due to diabetes mellitus 199216607 E11.42 Rheumatoid arthritis 698 81842 M06.9 Type 2 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 653280546 E11.9 Diabetic on insulin 1707 43297 Z79.4 [id number] Natalie Reveles MD , [facility], OFFICE [address] [place] [address] 03/23/2016 14:19:29 03/23/2016 15:26:40 Benign essential hypertension 6742625 I10 Blood pressure at goal Blood pressure NOT at goal. Mixed hyperlipidemia 267 505954 E78.2 continue to work on diet and exercise as discussed Sinusitis 85185153 J32.9 Eczema 57560794 L30.9 Diabetic on insulin 1707 33541 Z79.4 Mononeuritis 82951453 G5 8.9 Rheumatoid arthritis 698 47435 M06.9 [id number] Natalie Reveles MD , [facility], OFFICE [address] [place] [address] 6 06/13/2016 14:40:53 06/13/2016 15:36:21 Acute sinusitis 75145415 J01.90 [id number] Natalie Reveles MD , [facility], OFF[address] [place] [address] 6 11/30/2016 13:57:42 11/30/2016 15:08:02 Diabetic on insulin 088842106 Z79.4 Type 2 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 548959875 E11.9 Mixed hyperlipidemia 267 446818 E78.2 continue to work on diet and exercise as discussed Acute sinusitis 92729656 J01.90 [id number] Natalie Reveles MD , [facility], OFFICE [address] [place] [address] 12/25/2016 09:20:57 12/25/2016 10:34:52 Adult health examination 801097878 Z00.00 see Risk Assessment and Lifestyle Change Counseling section above Counseling 648521698 Z71 .9 Mixed hyperlipidemia 267 631353 E78.2 continue to work on diet and exercise as discussed Benign ess ential hypertension 9871967 I10 Blood pressure at goal and re Mononeuritis 94007479 G5 8.9 Sciatica 82467752 M54.30 Diabetic on insulin 1707 21122 Z79.4 Rheumatoid arthritis 698 55925 M06.9 Neuropathy due to diabetes mellitus 326524710 E11.42 Hearing loss 73464594 H9 1.90 [id number] aNtalie Reveles MD , [facility], OFF[address] [place] [address] 6 05/03/2017 14:27:16 05/03/2017 15:21:54 Benign essential hypertension 1719165 I10 Blood pressure at goal . Mixed hyperlipidemia 267 659407 E78.2 continue to work on diet and exercise as discussed Sciatica 26013201 M54.30 Type 2 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 098876051 E11.9 Diabetic on insulin 1707 50516 Z79.4 Rheumatoid arthritis 698 30372 M06.9 [id number] Edgar Murray MD , [facility], OFFICE [address] [place] [address] 06/27/2017 15:27:55 06/27/2017 15:57:15 Acute sinusitis 80801659 J01.90 discussed tx options,. At this point will tx with abx, probiotics , nasal rinses and rest. RTC prn [id number] Mami Bernstein MD , [facility], OFF[address] [place] [address] 08/02/2017 13:49:47 08/02/2017 14:54:19 Allergic asthma without status asthmaticus 22013252 J45.909 feels diminished and wheezingbr eath sounds goodafter neb a bit improvedpe ak flows lower range, not much changesubj ectively feels easier to deep breath after nebulizerb ut albuterol makes her jittery and she avoids it when possiblesh ort term trial inhaled steroidcon tinue proair as neededf/u if not improving Acute uppe r respiratory infection 32817828 J06.9 Kriss is presenting today with recurrent URI sxthis does sound like a new viral URI and not pna or recurrent sinus infections upportive instr giventx coughaugme nt asthma mgmt [id number] Natalie Reveles MD , [facility], OFF[address] [place] [address] 6 09/13/2017 14:23:47 09/13/2017 15:31:30 Benign essential hypertension 4649456 I10 Blood pressure at goal Mixed hyperlipidemia 267 563405 E78.2 continue to work on diet and exercise as discussed Sciatica 13001209 M54.30 Type 2 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 783187596 E11.9 Mononeuritis 04690593 G5 8.9 Rheumatoid arthritis 698 66479 M06.9 Diabetic on insulin 1707 16967 Z79.4 Anemia 676115384 D64.9 Asthma 985100739 J45.90 9 Active or passive immunization 613903057 Z23 [id number] , [facility], OFF[address] [place] [address] 11/13/2017 14:08:31 11/13/2017 14:54:27 Transient cerebral ischemia 924887974 G45.9 Diabetic on insulin 1707 76591 Z79.4 [id number] Natalie Reveles MD , [facility], OFF[address] [place] [address] 12/27/2017 14:34:57 12/27/2017 16:04:03 Adult health examination 828109790 Z00.00 see Risk Assessment and Lifestyle Change Counseling section above Counseling 961703631 Z71 .9 Depression screening 171 372905 Z13.89 depression screening tool administer ed, entered into emr, scored and discussed, time greater than 7.5 minutes Focal onse t impaired awareness epileptic seizure 453228589 G40.209 Benign ess ential hypertension 1721785 I10 Blood pressure at goal Sciatica 55592595 M54.30 Mixed hyperlipidemia 267 180645 E78.2 continue to work on diet and exercise as discussed Type 2 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 938467153 E11.9 Allergic a sthma without status asthmaticus 92468157 J45.909 Diabetic on insulin 1707 56698 Z79.4 Rheumatoid arthritis 698 63764 M06.9 Neuropathy due to diabetes mellitus 720968292 E11.42 Screening mammography 24 004406 Z12.31 Active or passive immunization 555794853 Z23 [id number] Natalie Reveles MD , [facility], [address] [place] [address] 04/30/2018 10:39:49 04/30/2018 11:23:30 Counseling 829544621 Z71.9 Benign ess ential hypertension 8438853 I10 Blood pressure at goal Mixed hyperlipidemia 267 412103 E78.2 continue to work on diet and exercise as discussed Focal onse t impaired awareness epileptic seizure 596380278 G40.209 Sciatica 78350105 M54.30 Type 2 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 113627351 E11.9 Mononeuritis 00161862 G5 8.9 Diabetic on insulin 1707 60131 Z79.4 Rheumatoid arthritis 698 99044 M06.9 Allergic a sthma without status asthmaticus 84563205 J45.909 Intolerant of ambient temperature 603665580 R68.89 [id number] Sil Carvajal , [facility], [address] [place] [address] 07/04/2018 09:15:51 07/04/2018 09:27:41 Active or passive immunization 044088347 Z23 [id number] Natalie Reveles MD , [facility], [address] [place] [address] 08/29/2018 11:16:37 08/30/2018 10:37:41 Acute sinusitis 43635322 J01.90 Benign ess ential hypertension 2447423 I10 Blood pressure at goal Type 2 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 942976704 E11.9 Mononeuritis 93598723 G5 8.9 Rheumatoid arthritis 698 63578 M06.9 [id number] Natalie Reveles MD , [facility], [address] [place] [address] 12/31/2018 14:40:49 12/31/2018 16:07:09 Adult health examination 911519766 Z00.00 see Risk Assessment and Lifestyle Change Counseling section above Counseling 154495616 Z71 .9 Depression screening 171 512036 Z13.89 depression screening tool administer ed, entered into emr, scored and discussed, time greater than 7.5 minutes Mixed hyperlipidemia 267 107685 E78.2 Focal onse t impaired awareness epileptic seizure 605992286 G40.209 Benign ess ential hypertension 6094460 I10 Blood pressure at goal Sciatica 56405451 M54.30 Type 2 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 265081026 E11.9 Allergic a sthma without status asthmaticus 75833376 J45.909 Diabetic on insulin 1707 87223 Z79.4 Rheumatoid arthritis 698 55679 M06.9 Gastroesop hageal reflux disease 945308187 K21.9 Active or passive immunization 412572854 Z23 Neuropathy due to diabetes mellitus 787313487 E11.42 [id number] Natalie Reveles MD , [facility], [address] [place] [address] 02/20/2019 09:32:43 02/20/2019 10:11:54 Acute sinusitis 08174121 J01.90 Health Concerns Section Related Observation LastModified by Organization Detai ls LastModified Time None Recorded Concern Status LastModified by Organization Details LastModified Time None Recorded Advance Directives Directive N: Payers Encounter Date Sequence Insurance Name Policy Number Policy Samuel Covered Member ID Samuel Member ID Guarantor Name 04/30/2018 1 [place] [employer] Kriss Jackson [id number] Kriss Jackson 04/30/2018 2 [place] [id number] Kriss Jackson [id number] Kriss Jackson 07/04/2018 1 [place] [employer] Kriss Jackson [id number] Kriss Jackson 07/04/2018 2 [place] [id number] Kriss Jackson [id number] Kriss A Young 08/29/2018 1 [place] [facility] G[facility] Kriss Jackson [id number] Kriss Keys Young 08/29/2018 2 [place] [id number] Kriss Jackson [id number] Kriss Keys Young 12/31/2018 1 [place] [facility] Kriss Jackson [id number] Kriss A Young 12/31/2018 2 [place] [id number] Krissjuan Jackson [id number] Kriss A Young 02/20/2019 1 MEDICARE [place]: [facility] Kriss Jackson [id number] Kriss A Young 02/20/2019 2 [place] [id number] Kriss Jackson [id number] Kriss Jackson Notes Date Note Type [...] intolerance has developed recently Natalie Reveles MD [address] [place] [address], [phone], [facility] 05/11/2018 15:01:12 9 text/html 67 yo with [...] lidocaine patches prn for feetCame back from [place] yesterday and had allergy sx. Using flonase, asthma inhaler, loratidine.Recent A1 C was <6% per Dr. 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 No dyspnea Natalie Reveles MD [address] [place] [address], [phone], [facility] 02/20/2019 10:14:25 OBGyn Episode No OBEpisode recorded.
--- OUTSIDE RECORDS SUMMARY | 2024-08-21 09:30 | XMS_ITS | Patient Health Record ---
Author Organization 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 Name Role Phone Angel Pablo Primary Care Provider Antonio Giles Unavailable [phone] Allergies Allergen (clinical drug ingredient) Drug/Non Drug [...] Problem Acquired hammer toe of right foot (0719017538837752 ) Other hammer toe(s) (acquired), right foot (M20.41) Active confirmed Response to treatment, Improvemen t Problem Acquired hammer toe of left foot (2866270301873303 ) Other hammer toe(s) (acquired), left foot (M20.42) Active confirmed Response to treatment, Improvemen t Problem Polyneuropathy due to type 2 diabetes mellitus (880290758) Type 2 diabetes mellitus with diabetic polyneuropathy (E11.42) Active confirmed Problem Essential hypertension (44740013) Essential hypertension (I10) Active confirmed Vital Signs Blood pressure diastolic 54 mm Hg 06/10/2024 Height 9xy84ss in 06/10/2024 Blood pressure systolic 109 mm Hg 06/10/2024 Weight 146 lbs 06/10/2024 BMI 30.51 kg/m2 06/10/2024 Procedures Procedure Date Ordered Date Performed Result Body Sit e 76310-WVKWFOC NAIL, 6 OR MORE 09/11/2023 N/A 65783-IGJP SKIN LESIONS, OVER 4 09/11/2023 N/A 95708-ASECCQB NAIL, 6 OR MORE 12/11/2023 N/A 16195-Ubmcgqac Plate 12/11/2023 N/A 99075-HEWA SKIN LESIONS, OVER 4 12/11/2023 N/A 74764-DNXETAT NAIL, 6 OR MORE 03/11/2024 N/A 28564 I&D ABSCESS- SIMPLE,SINGLE 03/11/2024 N/A 15570-ICEM SKIN LESIONS, OVER 4 03/11/2024 N/A 88827-CKVXAED SKIN/TISSUE 03/25/2024 N/A 15096- Debride <25 sq cm 04/15/2024 N/A 68809-OUTNMKB NAIL, 6 OR MORE 06/10/2024 N/A 28309-XHSN SKIN LESIONS, OVER 4 06/10/2024 N/A Encounters Encounter Location Date Provider Diagnosis [facility] [address] [address] 09/11/2023 Antonio Giles Type 2 diabetes mellitus with diabetic polyneuropathy E11.42 ; Onychomycosis B35.1 and Xerosis of skin L85.[address] [facility] [address] 12/11/2023 Antonio Giles Type 2 diabetes mellitus with diabetic polyneuropathy E11.42 ; Tinea unguium B35.1 ; Other hammer toe(s) (acquired), right foot M20.41 ; Other hammer toe(s) (acquired), left foot M20.42 and Ingrown nail L60.[address] [address] 03/11/2024 Antonio Giles Type 2 diabetes mellitus with diabetic polyneuropathy E11.42 ; Tinea unguium B35.1 and Abscess of right foot L02.[address] [address] 03/25/2024 Antonio Giles Abscess of right nichole t L02.611 and Neuropathic ulcer of right foot with fat layer exposed L97.[address] [address] 04/15/2024 Antonio Giles Neuropathic ulcer of right foot, limited to breakdown of skin L97.[address] [address] 05/16/2024 Antonio Giles Neuropathic ulcer of right foot, limited to breakdown of skin L97.[address] [address] 06/10/2024 Antonio Giles Type 2 diabetes mellitus with diabetic polyneuropathy E11.42 ; Tinea unguium B35.1 ; Other hammer toe(s) (acquired), right foot M20.41 and Other hammer toe(s) (acquired), left foot M20.[address] [address] 03/11/2024 Antonio Giles Assessments Encounter Date Diagnosis [...] X ray : Foot, right 3V 03/03/2022 25103-FWHFSKL NAIL, 6 OR MORE 03/11/2024 07481-ABBCAIY NAIL, 6 OR MORE 09/11/2023 95304-RCUBIRE NAIL, 6 OR MORE 12/11/2023 72276-MDCUFRU NAIL, 6 OR MORE 09/08/2022 34076-WOBUXHI NAIL, 6 OR MORE 12/08/2022 37946-MNYNQGZ NAIL, 6 OR MORE 03/09/2023 20141-HKNWVPW NAIL, 6 OR MORE 06/08/2023 34731-SJBDIUW NAIL, 6 OR MORE 06/02/2022 65182-EXGPTAU NAIL, 6 OR MORE 03/03/2022 81038-PMYDCDT NAIL, 6 OR MORE 08/30/2021 85851-EYXXFON NAIL, 6 OR MORE 12/02/2021 48712-WDQKZMC NAIL, 6 OR MORE 06/08/2020 66073-QHZANFO NAIL, 6 OR MORE 09/03/2020 21979-UBGZUQL NAIL, 6 OR MORE 12/10/2020 46270-FRIWZCA NAIL, 6 OR MORE 03/22/2021 40714-INRJYUN NAIL, 6 OR MORE 06/10/2024 61013-Oamnbuwc Plate 12/11/2023 47904- Debride <25 sq cm 04/15/2024 87010-AIIZBTB SKIN/TISSUE 03/25/2024 89814 I&D ABSCESS- SIMPLE,SINGLE 024 42655-HVME SKIN LESIONS, OVER 4 06/10/20 24 66212-IPNQ SKIN LESIONS, OVER 4 03/11/20 24 75209-QERG SKIN LESIONS, OVER 4 12/11/19 24 18185-XZIW SKIN LESIONS, OVER 4 09/11/19 24 14445-SIHQ SKIN LESIONS, OVER 4 06/08/20 23 71842-CIJA SKIN LESIONS, OVER 4 03/09/20 23 55477-JOBD SKIN LESIONS, OVER 4 12/09/19 23 84483-MXRP SKIN LESIONS, OVER 4 09/09/19 23 68223-AROP SKIN LESIONS, OVER 4 03/22/20 21 15218-GNXM SKIN LESIONS, OVER 4 12/11/19 21 50535-YEYE SKIN LESIONS, OVER 4 09/04/19 21 53874-EPUW SKIN LESIONS, OVER 4 06/08/20 20 89952-XOAC SKIN LESIONS, OVER 4 12/03/19 22 16441-UMLT SKIN LESIONS, OVER 4 08/31/19 29861-LDEQ SKIN LESIONS, OVER 4 03/03/20 97947-HQOK SKIN LESIONS, OVER 4 06/02/20 Next Appt Details Provider Name:Antonio Giles , 09/16/2024 10:30:00 AM, [address] [place], [address], Insurance Providers Payer Name Payer Address Payer Phone Subscriber Number Group Number Insured Name Patient Relationship to Insured Coverage Start Date Coverage End Date Medicare National [employer] [address] [place] [address] [id number] Kriss Jackson Self - patient is the insured [employer] [address] [place] [address] [phone] [id number] Kriss Jackson Self - patient is the [...]
== END 2024-08-21 09:47 | disposition home or self-care (01) ==
PROVIDERS: PCP Internal Medicine; Visit Provider Surgery Vascular Surgery
DX: I83.12 Varicose veins of left lower extremity with inflammation (principal)
CPT/HCPCS: 99214

== ENCOUNTER → 2024-08-21 08:53 | Outpatient (BNVA) | payer MEDICARE, SELFPAY | PROVIDERS: PCP Internal Medicine; Visit Provider Surgery Vascular Surgery | DX: I83.12 Varicose veins of left lower extremity with inflammation (principal); E11.9 Type 2 diabetes 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s; Z79.4 Long term (current) use of insulin | CPT/HCPCS: 96127; 99212 ==

== ENCOUNTER 2024-08-21 09:53 | Outpatient (AMB) | payer MEDICARE, SELFPAY ==
--- NOTE | 2024-08-21 11:03 | A.OFFPC_ITS ---
Vital Signs 08/21/24 11:04 Height 4 ft 9 in Weight 141 lb 4 oz BMI 30.6 BP 104/56 L Blood Pressure Location Lt brachial Position Sitting Respiration 15 Pulse 60 Pulse Source Pulse Oximeter Temp Source Temporal Artery Scan Pulse Oximetry (%) 98 Oxygen Delivery Method Room Air Intake Visit Reasons: 3mth f/u Oracle Business Analyst Required: No Accompanied by: Self / Same As Patient Allergies duloxetine Allergy (Severe, Verified 08/25/24 08:30) LOOPY codeine [CODEINE] Allergy (Intermediate, Verified 08/25/24 08:30) GI UPSET doxycycline [DOXYCYCLINE] Allergy (Intermediate, Verified 08/25/24 08:30) RASH Sulfa (Sulfonamide Antibiotics) [SULFA (SULFONAMIDE ANTIBIOTICS)] Allergy (Intermediate, Verified 08/25/24 08:30) Hives Medication List - Last Reconciled 08/25/24 by Angel Pablo MD adalimumab (Humira(CF) Pen) 40 mg (0.4 mL) subcut Q2W albuterol sulfate 90 mcg/actuation (ProAir HFA) 2 puffs inhalation Q4-6H PRN 30 days ammonium lactate 12% 12 appl topical BID aspirin 81 mg PO DAILY atorvastatin 10 mg PO BEDTIME betamethasone valerate 0.1% 1 appl topical BID PRN blood sugar diagnostic (WorkshopLiveTouch Ultra Test strips) As directed 3x daily cholecalciferol (vitamin D3) (Vitamin D3) 4,000 units PO DAILY famotidine 40 mg PO BID fluticasone propionate 50 mcg/actuation 2 sprays intranasal DAILY folic acid 1 mg PO DAILY furosemide 10 mg PO DAILY gabapentin 600 mg PO TID hydroxychloroquine 200 mg PO BID insulin glargine (Lantus Solostar U-100 Insulin) 60 units (0.6 mL) subcut BEDTIME 30 days insulin lispro (Humalog Kervin KwikPen (U-100)) 1 sliding scale dose subcut USEASDIRECTD insulin syringe-needle U-100 As directed lamotrigine 50 mg PO BID lidocaine 5% 1 patch topical DAILY lisinopril-hydrochlorothiazide 10-12.5 mg 1 tab PO DAILY 90 days loperamide 2 mg PO TID methotrexate sodium 20 mg (8 x 2.5 mg) PO QWEEK metoprolol succinate ER (Toprol XL) 50 mg PO DAILY metronidazole 1% 1 appl topical DAILY nystatin 10 mL PO TID oseltamivir 75 mg PO BID oxybutynin chloride ER 10 mg PO DAILY pen needle, diabetic (BD [place] 2nd Gen Pen Needle) As directed walker As directed zoledronic wdcz-veqcrjig-sdyoe 5 mg/100 mL (Reclast) 5 ea IV ONCE Tobacco use date assessed: 08/21/24 Fall risk assessment: 2 + Falls in past year Last assessed Fall Risk: 08/21/24 Dental Screening Dental Screen Date: 08/21/24 Did you have a dental visit in the last 12 months?: Yes Did you have a dental problem in the last 6 months where you did not have access to dental care?: No Was dental information given to patient?: Patient has dentist HPI 3mth f/u HPI Details 73-year-old female presents to the offic e to discuss her chronic medical conditions. Patient is compliant with medications and reporting no side effects. Blood sugars are under control. Able to function and do all activities of daily living. 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 Edema of lower extremity present on examination Petechiae MCC use of drug Irritable bowel syndrome with diarrhea Rheumatoid arthritis Pacemaker TIA (transient ischemic attack) Dysphagia Spinal stenosis COVID COVID-19 Laryngopharyngeal reflux (LPR) Asthma Rotator cuff tendinitis Post-menopausal Polyarthralgia Dyspnea on exertion Allergic rhinitis Bronchitis Asthma exacerbation Cough variant asthma DJD (degenerative joint disease) Decreased hearing GERD (gastroesophageal reflux disease) Type 2 diabetes 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s Surgical History S/P placement of cardiac pacemaker History of esophagogastroduodenoscopy (EGD) History of colonoscopy (~09/05/21) Hx of cholecystectomy Hx of tonsillectomy Hx of hysterectomy Family History Father CVD (cardiovascular disease) Diabetes Mother Diabetes Sister No problems noted. Other Substance use disorder Social History Household Members: Family and None Housing: House Are you a primary residential care officer to a significant other at home: No Do you presently have visiting nurse or other home services: No Alcohol intake: former Comment: WITHIN LAST MONTH Patient Tobacco Use Status: Never used Tobacco e-Cigarette/Vaping Use: Never Used Second Hand Smoke Exposure: No Advance Directives Date on File: 08/04/22 service: No Current occupational status: retired Cognitive needs: Yes (walker) Hearing needs: Yes (hearing aide) Vision needs: Yes (glasses) Questionnaire PHQ-9 Over the last 2 weeks, how often have you been bothered by any of the following problems? 1. Little interest or pleasure in doing things: not at all 2. Feeling down, depressed, or hopeless: not at all 3. Trouble falling or staying asleep, or sleeping too much: not at all 4. Feeling tired or having little energy: not at all 5. Poor appetite or overeating: not at all 6. Feeling bad about yourself - or that you are a failure or have let yourself or your family down: not at all 7. Trouble concentrating on things, such as reading the newspaper or watching television: not at all 8. Moving or speaking so slowly that other people could have noticed. Or the opposite - being so fidgety or restless that you have been moving around a lot more than usual: not at all 9. Thoughts that you would be better off or of hurting yourself in some way: not at all Total score: 0 Depression Screening Interpretation: Negative Depression Screening Done: Yes 61096 - PHQ-9 Billing: Yes Source: Developed by Drs. Jonathan Sandoval, Dodie Tejada, Alberto Elizondo and colleagues, with an educational mark from [employer]. Thrive Questionnaire Date Thrive assessed: 08/21/24 I am a: Patient What is your living situation today?: I have a steady place to live Within the past 12 months, did the food you bought not last and you didn't have the money to get more?: Never true Within the past 12 months, did you worry whether your food would run out before you got money to buy more?: Never true Do you have trouble paying for medicines?: No Do you have trouble getting transportation to medical appointments?: No Do you have trouble paying your heating and electricity bill?: No Do you have trouble taking care of your child, family member or friend?: No Do you have trouble with day-to-day activities such as bathing, preparing meals, shopping, managing finances, etc.?: No Are you currently unemployed and looking for a job?: No Are you interested in more education?: No Please select the resources that you would like help with: None Currently or been in a relationship where the following occur: No concerns reported THRIVE Score: 0 AUDIT C Alcohol Use Questionnaire (AUDIT-C) 1. How often do you have a drink containing alcohol?: Never 3. How often do you have six or more drinks on one occasion?: Never Total Score: 0 BRITTNEY-7 AMB Questionnaire BRITTNEY-7 Date BRITTNEY - 7 assessed: 08/21/24 Feeling nervous, anxious, or on edge: 0 = Not at all Not being able to stop or control worryin = Not at all Worrying too much about different things: 0 = Not at all Trouble relaxin = Not at all Being so restless that it is hard to sit still: 0 = Not at all Becoming easily annoyed or irritable: 0 = Not at all Feeling afraid as if something awful might happen: 0 = Not at all Total BRITTNEY-7 score (0-4 normal; 5-9 mild; 10-14 moderate; 15-21 severe): 0 Source: Developed by Drs. Jonathan Sandoval, Dodie Tejada, Alberto Elizondo and colleagues, with an educational mark from [employer]. BRITTNEY-7 Assessment Billing BRITTNEY-7 Assessment Tool: BRITTNEY-7 Assessment 89079 Physical exam (Primary Care) Vital Signs: Last Vital Signs Pulse 60 08/21/24 11:04 Resp 15 08/21/24 11:04 BP 104/56 L 08/21/24 11:04 Pulse Ox 98 08/21/24 11:04 Oxygen Delivery Method Room Air 08/21/24 11:04 Care Plan Goal for BP management: Blood pressure is in range. BMI result Body Mass Index 30.6 Tobacco/Smoking Status: Tobacco use Status Tobacco use date assessed 08/21/24 08/21/24 11:16 Patient Tobacco Use Status Never used Tobacco 08/21/24 11:16 e-Cigarette/Vaping Use Never Used 08/21/24 11:16 PHQ-9: PHQ-9 Score PHQ-9: Total score 0 08/21/24 11:16 Depression Screening Interpretation: Negative Thrive Assessment: Date of Thrive Assessment Date Thrive assessed 08/21/24 08/21/24 11:16 Currently or been in a relationship where the following occur: No concerns reported Const General: cooperative and healthy appearing Nutritional Appearance: well nourished Orientation/consciousness: patient oriented x3 Limitations: no limitations HENMT Head: Yes normal to inspection Eyes General: appearance normal, both eyes and all related structures Neck Neck: Yes normal visual inspection Chest Chest palpation & inspection: normal palpation of entire chest wall Resp Effort & Inspection: normal respiratory effort Neuro General: patient oriented x3 Coding Level of Care Code Est Pt Level 3 (55715) Complex EM visit Add On G2211 Diagnoses Type 2 diabetes 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, with long-term current use of insulin E11.9; Z79.4 Diabetes mellitus residential insulin use: with residential use Additional Codes BRITTNEY-7 Assessment Billing - BRITTNEY-7 Assessment Tool: BRITTNEY-7 Assessment 19661 ([id number]) PHQ-9 - 38497 - PHQ-9 Billing: Yes ([id number]) Assessment & Plan Assessment & Plan (1) Type 2 diabetes 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s: Code(s): E11.9 - Type 2 diabetes 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s Category: Medical Qualifiers: Diabetes mellitus supervisor long goods insulin use: with residential use Qualified Code(s): E11.9 - Type 2 diabetes 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s; Z79.4 - 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
[2024-08-21 11:04] VITALS: BP 104/56; PULSE 60; RESP 15; O2SAT 98; BMI 30.6
== END 2024-08-21 11:49 | disposition home or self-care (01) ==
PROVIDERS: PCP Internal Medicine; Visit Provider Internal Medicine
DX: E11.9 Type 2 diabetes 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s (principal); Z79.4 Long term (current) use of insulin

== ENCOUNTER 2024-10-03 10:03 | Outpatient (AMB) | payer MEDICARE, SELFPAY ==
--- OUTSIDE RECORDS SUMMARY | 2024-10-03 10:41 | XMS_ITS ---
Author Organization [facility] Address [address] [place] [address] Care Team Providers Care Chief Power Dispatcher Name Role Phone Angel Pablo Primary Care Provider Antonio Giles Unavailable [phone] REASON FOR VISIT Foot swelling Encounters Encounter Location Date Provider Diagnosis [address] [address] 09/26/2024 Antonio Giles Plan Of Treatment Next Appt Details Provider Name:Antonio Giles , 12/23/2024 10:30:00 AM, [address] [place], [address], Progress Notes * Jose JACKSONOB:1950 ([age] yo F)Acc No.[id number]:09/26/2024 Patient:?Kriss JACKSON :1950???Age:73 Y???Sex:Female Address:[address] [place] [address] [place], [address] * true * Date:? Generated for Printi ng/Famariang/eTransmitting on:?10/03/2024 10:41 AM EDT
--- OUTSIDE RECORDS SUMMARY | 2024-10-03 10:42 | XMS_ITS | Patient Health Record ---
Author Organization [facility] Address [address] [place] [address] Care Team Providers Care Award Machine Operator Name Role Phone Angel Pablo Primary Care Provider Antonio Giles Unavailable [phone] Allergies Allergen (clinical drug ingredient) Drug/Non Drug [...] Performing Lab: Notes/Report: TOTAL HEMOGLOBIN (HGBA1C) 5.2 HEMOGLOBIN A1C (GLYCOHEMOGLO BIN) Reviewed date:09/16/2024 11:17:57 AM Interpretation: Performing Lab: Notes/Report: HEMOGLOBIN A1C % (HH) 5.4 Reason For Referral No Information Medications Medication SIG (Take, Route, Frequency, Duration) Notes Start Date End Date Status Lantus SoloStar 100 UNIT/ML Subcutaneous for 29 Days Active lamoTRIgine 25 MG Oral for 90 Days Active Sucralfate Unknown Aspirin 81 MG 1 tablet Orally [...] Orally Once a day for 30 day(s) 1 morning 2 night Active Furosemide Active Methotrexate Sodium 15 MG as directed Orally 8 t abs once a week Active HumaLOG 100 UNIT/ML as directed Subcutaneous 20 units Active Vitamin D Unknown oxyBUTYnin Unknown Clopidogrel Bisulfate 75 MG 1 tablet Orally Once a day for 30 day(s) Unknown Extra Depth Orthopedic Shoes (1 Pair) with Customized Heat Molded Multidensity Innersoles (3 Pair) as directed Dx: NIDDM/Polyneuropath y (E11.42), Hammertoe Foot Deformity (M20.41,M20.42), Preulcerative Skin Lesion(s) (L85.1 12/11/2023 Active Famotidine 40 MG 1 tablet at bedtime as needed Orally Once a day Unknown Zoledronic Acid Unkn own Ammonium Lactate 12 % 1 application Externally to affected areas of dry skin to feet except for between the toes Twice a day for 30 days Active Iron 27 240 (27 Fe) MG 1 tablet with barrington er or juice between meals Orally Once a day for 30 day(s) Unknown Hydroxychloroquine Sulfate 200 MG as directed Orally Unknown Ferrous Sulfate ER A ctive Lantus 100 UNIT/ML as directed Subcutaneous Unknown Acetaminophen ER 500mg Act jeannette lamoTRIgine 25 MG 1 tablet Orally for 30 day(s) 2 in AM 2 in PM Unknown Albuterol Active Lisinopril-hydroCHLOROthi azide Unknown Generlac 10 GM/15ML 15 mL as needed Orally Once a day Active Lidocaine 5 % 1 patch remove after 12 hours Externally Once a day Unknown Humira (2 Syringe) 40 MG/0.4ML INJECT 40 MG UNDER THE SKIN EVERY 2 WEEKS Subcutaneous for 28 Days 1 needle every 2 week Active ProAir HFA 108 (90 Base) MCG/ACT 2 puff as needed Inhalation every 6 hours PRN Unknown Lisinopril 10 MG 1 tablet Orally Once a day for 30 day(s) Active metroNIDAZOLE 1 % 1 application Externally Once a day Unknown Fluticasone Propionate 50 MCG/ACT 1 spray in each nostril Nasally Once a day for 30 day(s) Unknown Immunizations Vaccine Route Administration Date Status Comme nts COVID-19 Vincenzo & Vincenzo/Leon Unknown 07/14/2021 Administered 1st 09/29/2020 Booster 07/14/2021 Influenza Unknown 04/11/2022 Administered Social History Tobacco Use: Social History Observation Description Date Details (start date - stop date) Never Smoker NA - NA Tobacco use other than smoking: Question Answer Notes Are you an other tobacco user? No Tobacco Control (Standard) Question Answer Notes Tobacco use: Nonsmoker Additional Findings: Tobacco non-user Current no nsmoker AUDIT-C (Standard) Question Answer Notes Did you have a drink containing alcohol in the p ast year? No Points 0 Interpretation Negative Problems Problem Type SNOMED Code ICD Code Onset Dates Problem Status W/U Status Risk Notes Problem Acquired hammer toe of right foot (1396747619011631 ) Other hammer toe(s) (acquired), right foot (M20.41) Active confirmed Response to treatment, Improvemen t Problem Acquired hammer toe of left foot (6508655853884873 ) Other hammer toe(s) (acquired), left foot (M20.42) Active confirmed Response to treatment, Improvemen t Problem Polyneuropathy due to type 2 diabetes mellitus (823695507) Type 2 diabetes mellitus with diabetic polyneuropathy (E11.42) Active confirmed Vital Signs Blood pressure diastolic 50 mm Hg 09/16/2024 Height 5zn94dd in 09/16/2024 Blood pressure systolic 109 mm Hg 09/16/2024 Weight 146 lbs 09/16/2024 BMI 30.51 kg/m2 09/16/2024 Procedures Procedure Date Ordered Date Performed Result Body Sit e 68440-FITUEOW NAIL, 6 OR MORE 12/11/2023 N/A 18649-Dxsbsooc Plate 12/11/2023 N/A 69036-RAWT SKIN LESIONS, OVER 4 12/11/2023 N/A 08735-EAPPWSS NAIL, 6 OR MORE 03/11/2024 N/A 62558 I&D ABSCESS- SIMPLE,SINGLE 03/11/2024 N/A 47884-XLZW SKIN LESIONS, OVER 4 03/11/2024 N/A 02408-UEQLUXT SKIN/TISSUE 03/25/2024 N/A 95980- Debride <25 sq cm 04/15/2024 N/A 72110-KMOLITL NAIL, 6 OR MORE 06/10/2024 N/A 74746-JSUA SKIN LESIONS, OVER 4 06/10/2024 N/A 48717-HRRHYRW NAIL, 6 OR MORE 09/16/2024 N/A 07069-PLMC SKIN LESIONS, OVER 4 09/16/2024 N/A Encounters Encounter Location Date Provider Diagnosis [address] [address] 12/11/2023 Antoniorafia Meadier Type 2 diabetes mellitus with diabetic polyneuropathy E11.42 ; Tinea unguium B35.1 ; Other hammer toe(s) (acquired), right foot M20.41 ; Other hammer toe(s) (acquired), left foot M20.42 and Ingrown nail L60.[address] [address] 03/11/2024 Antonio Tisha Type 2 diabetes mellitus with diabetic polyneuropathy E11.42 ; Tinea unguium B35.1 and Abscess of right foot L02.[address] [address] 03/25/2024 Antonio Tisha Abscess of right nichole t L02.611 and Neuropathic ulcer of right foot with fat layer exposed L97.[address] [address] 04/15/2024 Antonio Tisha Neuropathic ulcer of right foot, limited to breakdown of skin L97.[address] [address] 05/16/2024 Antonio Tisha Neuropathic ulcer of right foot, limited to breakdown of skin L97.[address] [address] 06/10/2024 Antoniorafia Meadier Type 2 diabetes mellitus with diabetic polyneuropathy E11.42 ; Tinea unguium B35.1 ; Other hammer toe(s) (acquired), right foot M20.41 and Other hammer toe(s) (acquired), left foot M20.[address] [address] 09/16/2024 Antonio Tisha Type 2 diabetes mellitus with diabetic polyneuropathy E11.42 ; Tinea unguium B35.1 and Xerosis of skin L85.3 [facility] [address] [address] 03/11/2024 Antonio Giles [facility] [address] [address] 09/26/2024 Antonio Giles Assessments Encounter Date Diagnosis (ICD Code) Assessment Notes Treatment Notes Treatment Clinical Notes Section Notes 12/11/2023 Type 2 diabetes mellitus with diabetic [...] E11.42) 06/10/2024 Tinea unguium (ICD-10 - B35.1) 09/16/2024 Type 2 diabetes mellitus with diabetic polyneuropathy (ICD-10 - E11.42) 09/16/2024 Tinea unguium (ICD-10 - B35.1) 06/10/2024 Other [...] INSTRUCTIONS. pdf (DIABETIC FOOT CARE INSTRUCTIONS. pdf) 12/11/2023 Other hammer toe(s) (acquired), left foot (ICD-10 - M20.42) 06/10/2024 Other hammer toe(s) (acquired), left foot (ICD-10 - M20.42) Response to treatment,Impro vement 09/16/2024 Xerosis of skin (ICD-10 - L85.3) 12/11/2023 Ingrown nail (ICD-10 - L60.0) 03/11/2024 Other 03/25/2024 Other Plan Of Treatment Pending Test Test Name Order Date X ray : Foot, left 3V 03/03/2022 X ray : Foot, right 3V 03/03/2022 74809-WDWJYKE NAIL, 6 OR MORE 03/11/2024 16420-RVSLZEX NAIL, 6 OR MORE 09/11/2023 43843-DVFEMNB NAIL, 6 OR MORE 12/11/2023 71979-VZYMVWR NAIL, 6 OR MORE 09/08/2022 35534-FUDYITQ NAIL, 6 OR MORE 12/08/2022 91208-PSAKZGJ NAIL, 6 OR MORE 03/09/2023 81548-GOMTTOF NAIL, 6 OR MORE 06/08/2023 26638-XPKNZWW NAIL, 6 OR MORE 06/02/2022 57963-SJRGYTV NAIL, 6 OR MORE 03/03/2022 77434-LMYMAVQ NAIL, 6 OR MORE 08/30/2021 93018-IDALBPT NAIL, 6 OR MORE 12/02/2021 63474-HGKADYX NAIL, 6 OR MORE 06/08/2020 09586-CUBGXSB NAIL, 6 OR MORE 09/03/2020 39033-LDGAOHY NAIL, 6 OR MORE 12/10/2020 05590-DQHKFVU NAIL, 6 OR MORE 03/22/2021 14125-BTAUBMO NAIL, 6 OR MORE 06/10/2024 76682-UGKTTZA NAIL, 6 OR MORE 09/16/2024 83743-Wqgjutnx Plate 12/11/2023 34339- Debride <25 sq cm 04/15/2024 51855-GPEYCXR SKIN/TISSUE 03/25/2024 90851 I&D ABSCESS- SIMPLE,SINGLE 024 81339-JCKO SKIN LESIONS, OVER 4 06/10/20 24 26909-WHLV SKIN LESIONS, OVER 4 09/17/19 25 48037-LUBK SKIN LESIONS, OVER 4 03/11/20 24 96722-VAFT SKIN LESIONS, OVER 4 12/11/19 24 79011-ZRRH SKIN LESIONS, OVER 4 09/11/19 24 29500-UMDD SKIN LESIONS, OVER 4 06/08/20 23 43085-MSUQ SKIN LESIONS, OVER 4 03/09/20 23 51624-VOZN SKIN LESIONS, OVER 4 12/09/19 23 23809-ZUIT SKIN LESIONS, OVER 4 09/09/19 23 43444-BRKK SKIN LESIONS, OVER 4 03/22/20 21 10090-EMFS SKIN LESIONS, OVER 4 12/11/19 21 27949-QRGD SKIN LESIONS, OVER 4 09/04/19 21 80777-XHPF SKIN LESIONS, OVER 4 06/08/20 20 26733-CYFQ SKIN LESIONS, OVER 4 12/03/19 22 21395-KYCC SKIN LESIONS, OVER 4 08/31/19 22 79217-OYYO SKIN LESIONS, OVER 4 03/03/20 22 52958-WTYI SKIN LESIONS, OVER 4 06/02/20 Next Appt Details Provider Name:Antonio Giles , 12/23/2024 10:30:00 AM, [address] [place], [address], Insurance Providers Payer Name Payer Address Payer Phone Subscriber Number Group Number Insured Name Patient Relationship to Insured Coverage Start Date Coverage End Date Medicare National [employer] [address] [place] [address] [id number] Kriss Jackson Self - patient [facility] the insured [facility] [address] [place] [address] [id number] Kriss Jackson Self - patient is the [...]
--- OUTSIDE RECORDS SUMMARY | 2024-10-03 10:42 | XMS_ITS ---
Author Organization [facility] Address [address] [place] [address] Care Team Providers Care Fnp Name Role Phone Angel Pablo Primary Care Provider [phone] Antonio Giles Unavailable [phone] Allergies Allergen (clinical drug ingredient) Drug/Non Drug [...] other tobacco user? No Vital Signs Height 4yk22xf in 06/10/2024 Weight 146 lbs 06/10/2024 BMI 30.51 kg/m2 06/10/2024 Blood pressure systolic 109 mm Hg 06/10/20 24 Blood pressure diastolic 54 mm Hg 024 Procedures Procedure Date Ordered Date Performed Result Body Sit e 36406-AHZZYDZ NAIL, 6 OR MORE 06/10/2024 N/A 23017-KFSR SKIN LESIONS, OVER 4 06/10/2024 N/A Encounters Encounter Location Date Provider Diagnosis [facility] [address] [place] [address] 06/10/2024 Antonio Giles Type 2 diabetes mellitus [...] Treatment Pending Test Test Name Order Date 27269-AWIVSBU NAIL, 6 OR MORE 06/10/2024 65699-EKZZ SKIN LESIONS, OVER 4 06/10/20 24 Next Appt Details Follow Up: prn, Reason: Provider Name:Antonio Giles , 12/23/2024 10:30:00 AM, [address] [place], [address], Procedure Notes * Category Sub-Category Detail Notes [...] use of a nail nipper and/or dremel-type cutter grinder operator, to a more viable healthy nail [...] to maintain effectiveness in symptomatic relief - 86616 Keratoma Treatment Parring or Cutting o f [...] instrumentation by the physician of record - 47694 Progress Notes * Lilly JACKSONDonaldOB:1950 ([age] yo F)Acc No.[id number]:06/10/2024 Progress Note Patient:?Kriss JACKSON Provider:?Antonio Giles DPM :1950???Age:73 Y???Sex:Female D ate:06/10/2024 Address:[address] [place], [place] [address] Pcp:Angel Pablo Subjective: * Chief Complaints: * [...] yes, housework,shooping. ?Marital status: . 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 * Medications:?TakingAcetamino phen ER , Notes to [...] hivesCod eine: stomach upsetDoxycyclineDuloxetineCymbaltayes[Allergies Verified] Objective: * Vitals:?Ht:9wy17uv, Wt:146, BMI:30.51, Shoe size:7, BP:109/54mm Hg, BS:not [...] use of a nail nipper and/or dremel-type cutter grinder operator, to a more viable healthy nail [...] to maintain effectiveness in symptomatic relief - 17762.?Keratoma Treatment:?Parring or Cutting of Benign Hyperkeratotic Lesion(s)?(-57) [...] instrumentation by the physician of record - 52451.? * Procedure Codes:?16447 DEBRI DE NAIL, 6 OR MORE, Modifiers: XS 67966 TRIM SKIN LESIONS, OVER 4, Modifiers: XS [...] Giles DPM Date:?2023 Generated for Shanique alatorre/Lloyd/Jemalitting on:?10/03/2024 10:42 AM EDT History and Physical Notes * HPI (History of Present Illness) Category Sub-Category Detail Notes Category Not es Toe pain Treatments: Rx shoes At Risk footcare Pt States Last PCP Visit: Date: Examination Category Sub-Category Detail Notes Category Not [...] B/L , SUB 5th MTBase, B/L Orthopedic FOOTWEAR EVALUATION: good condit ion, exhibit proper fit and accommodation for pedal [...]
--- OUTSIDE RECORDS SUMMARY | 2024-10-03 10:42 | XMS_ITS | Data Portability ---
Author Organization [facility], [facility] Address [address] [place] [address] Assessment Encounter Date Assessment Date Assessment LastModified by Organization Details LastModified Time 04/30/2018 04/30/2018 Blood pressure i s at goal with which is below 140/90 for a diabetic. She is looking for alternative activities in her fpc. Her A1c of 5.5% shows excellent diabetes control (goal below 7.5-8%). She will continue with [facility] for that. [...] to what she tells us from her household refrigeration mechanic, and she will try and get us those records. 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 She will follow-up in [...] bp more regularly 3) Patient regularly sees household refrigeration mechanic who will check A1C and adjust rx [...] with new provider (will be changing to [facility] for convenience) 9) RA stable; may [...] Lab TSH, serum or plasma 2017 018 [facility], [address] [place] [address], [address], 8 16:26:11 CBC 2017 018 [facility], [address] [place], [address], 8 14:43:05 Referral None recorded. Procedures None recorded. Surgeries None recorded. Imaging None recorded. Medication Orders cefpodoxim e 200 mg tablet 2018 019 [id number], [address] [place], [place], [id number], 9 12:53:28 atorvastat in 20 mg tablet 2018 019 [facility] #[id number], [address] [place], [place], [id number], 9 16:34:01 lidocaine 5 % topical patch 2018 019 INTERFACE [facility] #[id number], [address] [place], [place], [id number], 9 13:32:45 omeprazole 20 mg capsule,de layed release 2018 019 [facility] #[id number], [address] [place], [place], [id number], 9 16:34:01 lisinopril 10 mg-hydroch lorothiazi de 12.5 mg tablet 2018 019 [facility] #[id number], [address] [place], [place], [id number], 9 16:34:01 cefpodoxim e 200 mg tablet 2018 019 [facility] #[id number], [address] [place], [place], [id number], 9 14:47:44 Patient TargetsNo targets recorded. Patient Instructions Encounter Date Encounter Id Patient Instructions Last Modified By Organization Details Last Modified Time 04/30/2018 [id number] high cholesterol lifestyle changes nikki Not available 04/30/2018 11:19:19 high blood pressure: care instructions nikki Not available 04/30/2018 11:19:19 learning about high blood pressure nikki Not available 04/30/2018 11:19:19 asthma handout / teaching nikki Not available 04/30/2018 11:19:19 asthma action plan nikki Not availab le 04/30/2018 11:19:[address] an ages 0-11 yrs finn[place] nikki Not available 04/30/2018 11:19:19 CCM: The provide r and patient discussed the Chronic Care Management program, including the services provided, and any fees associated with them. michele Not available 04/30/2018 11:32:47 08/29/2018 [id number] My Health To Do List Specific Analgesia [...] medication. spise Not available 08/29/2018 11:18:25 12/31/2018 [id number] After a discussi on of treatment options, [...] Patie nts with Diabe sarath Not Available [address], [address], 04/26/2018 15:36:01 04/26/20 18 04/26/2018 HbA1c (hemo globi n A1c), blood estimated average glucose 111.2 mg/dL Not Available [address], [address], 04/26/2018 15:36:01 04/26/20 18 04/26/2018 micro album in, urine microalbumin 39.3 mg/L 1.3-20 .0 high Not Available [address], [address], 04/26/2018 15:37:51 04/26/20 18 04/26/2018 micro album in, urine creatinine urine 193.6 mg/dL 30.0-1 25.0 high Not Available [address], [address], 04/26/2018 15:37:51 04/26/20 18 04/26/2018 micro album in, urine microalb/cre at ratio 20.3 mg/g_ creat 0.0-29 .0 Not Available [address], [address], 04/26/2018 15:37:51 04/26/20 18 04/26/2018 BMP, serum or plasm a glucose 74 mg/dL 70-100 Not Available [address], [address], 04/26/2018 16:07:42 04/26/20 18 04/26/2018 BMP, serum or plasm a BUN 16 mg/dL 7-18 Not Available [address], [address], 04/26/2018 16:07:42 04/26/20 18 04/26/2018 BMP, serum or plasm a creatinine 1.1 mg/dL 0.8-1. 3 Not Available [address], [address], 04/26/2018 16:07:42 04/26/20 18 04/26/2018 BMP, serum or plasm a B/C 14.5 ratio Not Available [address], [address], 04/26/2018 16:07:42 04/26/20 18 04/26/2018 BMP, serum or plasm a GFR -non 55.5 mL/mi n Recom zhane d GFR by the Natio nal Kidne y Found ation >60 mL/mi n/1.7 3m2 - Patricia l <60 mL/mi n/1.7 3m2 - Chron ic Kidne y Disea se <15 mL/mi n/1.7 3m2 - Kidne y Failu re Not Available [address], [address], 04/26/2018 16:07:42 04/26/20 18 04/26/2018 BMP, serum or plasm a GFR - if 63.8 mL/mi n For Afric an Ameri can patie nts: Resul ts Multi plied by 1.21 Not Available [address], [address], 04/26/2018 16:07:42 04/26/20 18 04/26/2018 BMP, serum or plasm a sodium 143 mmol/ L 136-14 5 Not Available [address], [address], 04/26/2018 16:07:42 04/26/20 18 04/26/2018 BMP, serum or plasm a potassium 4.6 mmol/ L 3.5-5. 1 Not Available [address], [address], 04/26/2018 16:07:42 04/26/20 18 04/26/2018 BMP, serum or plasm a chloride 105 mmol/ L 96-107 Not Available [address], [address], 04/26/2018 16:07:42 04/26/20 18 04/26/2018 BMP, serum or plasm a anion gap 11.1 5.0-15 .0 Not Available [address], [address], 04/26/2018 16:07:42 04/26/20 18 04/26/2018 BMP, serum or plasm a CO2 27 mmol/ L 21-32 Not Available [address], [address], 04/26/2018 16:07:42 04/26/20 18 04/26/2018 BMP, serum or plasm a calcium 9.2 mg/dL 8.5-10 .3 Not Available [address], [address], 04/26/2018 16:07:42 04/26/20 18 04/26/2018 lipid panel , serum cholesterol 106 mg/dL <200 mg/dl Avelino able 200-2 39 mg/dl Borde rline High >240 mg/dl High Not Available [address], [address], 04/26/2018 16:07:44 04/26/20 18 04/26/2018 lipid panel , serum triglyceride s 184 mg/dL <150 mg/dL Patricia l 150-1 99 mg/dL Borde rline High 200-4 99 mg/dL High >500 mg/dL Very High Not Available [address], [address], 04/26/2018 16:07:44 04/26/20 18 04/26/2018 lipid panel , serum direct HDL 39 mg/dL <40 mg/dl - Major Risk for CHD >60 mg/dl - Negat jeannette Risk for CHD Not Available [address], [address], 04/26/2018 16:07:44 04/26/20 18 04/26/2018 LDL, calcu [...] r is not martha baker. Not Available [address], [address], 04/26/2018 16:07:45 04/26/20 18 04/26/2018 AST/S GOT (aspa rtate amino trans feras e), serum or plasm a AST 18 U/L 15-37 Not Available [address], [address], 04/26/2018 16:25:23 04/26/20 18 04/26/2018 ALT (karen ine amino trans feras e), serum or plasm a ALT 26 U/L 30-65 low Not Available [address], [address], 04/26/2018 16:25:24 04/30/20 18 04/30/2018 CBC WBC 8.9 K/? ? ?L 4.0-10 .0 Not Available [address], [address], 04/30/2018 14:43:04 04/30/20 18 04/30/2018 CBC RBC 4.13 M/? ? ?L 3.93-5 .22 Not Available [address], [address], 04/30/2018 14:43:04 04/30/20 18 04/30/2018 CBC HGB 11.9 g/dL 11.2-1 5.7 Not Available [address], [address], 04/30/2018 14:43:04 04/30/20 18 04/30/2018 CBC HCT 35.9 % 34.1-4 4.9 Not Available [address], [address], 04/30/2018 14:43:04 04/30/20 18 04/30/2018 CBC MCV 86.9 ? ? ?L 79.4-9 4.8 Not Available [address], [address], 04/30/2018 14:43:04 04/30/20 18 04/30/2018 CBC MCH 28.8 pg 25.6-3 2.2 Not Available [address], [address], 04/30/2018 14:43:04 04/30/20 18 04/30/2018 CBC MCHC 33.1 g/dL 32.2-3 5.5 Not Available [address], [address], 04/30/2018 14:43:04 04/30/20 18 04/30/2018 CBC plt 290.0 K/? ? ?L 182.0- 369.0 Not Available [address], [address], 04/30/2018 14:43:04 04/30/20 18 04/30/2018 CBC MPV 11.7 9.4-12 .3 Not Available [address], [address], 04/30/2018 14:43:04 04/30/20 18 04/30/2018 CBC neut% 78.8 % 34.0-7 1.1 high Not Available [address], [address], 04/30/2018 14:43:04 04/30/20 18 04/30/2018 CBC neut# 7.0 1.6-6. 1 high Not Available [address], [address], 04/30/2018 14:43:04 04/30/20 18 04/30/2018 CBC lymph % 14.1 % 19.3-5 1.7 low Not Available [address], [address], 04/30/2018 14:43:04 04/30/20 18 04/30/2018 CBC lymph # 1.3 K/? ? ?L 1.2-3. 7 Not Available [address], [address], 04/30/2018 14:43:04 04/30/20 18 04/30/2018 CBC mono% 5.2 % 4.7-12 .5 Not Available [address], [address], 04/30/2018 14:43:04 04/30/20 18 04/30/2018 CBC mono# 0.5 0.2-0. 6 Not Available [address], [address], 04/30/2018 14:43:04 04/30/20 18 04/30/2018 CBC eo% 1.4 % 0.7-5. 8 Not Available [address], [address], 04/30/2018 14:43:04 04/30/20 18 04/30/2018 CBC eo# 0.1 0.0-0. 4 Not Available [address], [address], 04/30/2018 14:43:04 04/30/20 18 04/30/2018 CBC baso% 0.5 % 0.1-1. 2 Not Available [address], [address], 04/30/2018 14:43:04 04/30/20 18 04/30/2018 CBC baso# 0.0 0.0-0. 1 Not Available [address], [address], 04/30/2018 14:43:04 04/30/20 18 04/30/2018 CBC RDW-CV 14.0 % 11.7-1 4.4 Not Available [address], [address], 04/30/2018 14:43:04 04/30/20 18 04/30/2018 TSH, serum or plasm a TSH 2.29 uIU/m L 0.50-6 .00 The Ameri can Colle ge of Endoc rinol ogy and Ameri can Thyro id Assoc iatio n recom mend goal TSH value s betwe en 0.4-4 .0 mIU/m L. Not Available [address], [address], 04/30/2018 16:26:11 06/12/20 18 06/12/2018 CBC w/ auto diff WBC 13.71 K/uL 3.40-1 1.20 high Not Available [facility] [address] [place] [address], [address], 06/12/2018 14:19:14 06/12/20 18 06/12/2018 CBC w/ auto diff RBC 4.19 M/uL 3.80-4 .80 Not Available [facility] [address] [place] [address], [address], 06/12/2018 14:19:14 06/12/20 18 06/12/2018 CBC w/ auto diff HGB 12.0 g/dL 12.0-1 5.0 Not Available [facility]) [address] [place] [address], [address], 06/12/2018 14:19:14 06/12/20 18 06/12/2018 CBC w/ auto diff HCT 35.1 % 36.0-4 6.0 low Not Available [facility]) [address] [place] [address], [address], 06/12/2018 14:19:14 06/12/20 18 06/12/2018 CBC w/ auto diff plt 285 K/uL 130-40 0 Not Available [facility]) [address] [place], [address], 06/12/2018 14:19:14 06/12/20 18 06/12/2018 CBC w/ auto diff MCV 83.8 fL 79.0-9 8.0 Not Available [facility]) [address] [place], [address], 06/12/2018 14:19:14 06/12/20 18 06/12/2018 CBC w/ auto diff MCH 28.6 pg 27.0-3 4.8 Not Available [facility] ([facility]) [address] [place], [address], 06/12/2018 14:19:14 06/12/20 18 06/12/2018 CBC w/ auto diff MCHC 34.2 g/dL 31.5-3 6.0 Not Available [facility]) [address] [place], [address], 06/12/2018 14:19:14 06/12/20 18 06/12/2018 CBC w/ auto diff RDW 13.2 % 10.8-1 4.6 Not Available [facility] [address] [place], [address], 06/12/2018 14:19:14 06/12/20 18 06/12/2018 CBC w/ auto diff MPV 11.6 fL 9.4-12 .4 Not Available [facility] [address] [place], [address], 06/12/2018 14:19:14 06/12/20 18 06/12/2018 CBC w/ auto diff NRBC 0.00 /100_ WBCs 0.00 Not Available [facility] [address] [place], [address], 06/12/2018 14:19:14 06/12/20 18 06/12/2018 CBC w/ auto diff absolute NRBC 0.00 K/uL 0.00 Not Available [facility] [address] [place], [address], 06/12/2018 14:19:14 06/12/20 18 06/12/2018 CBC w/ auto diff diff method Auto Not Available [facility] [address] [place], [address], 06/12/2018 14:19:14 06/12/20 18 06/12/2018 CBC w/ auto diff neuts 84.8 % 45.30- 77.70 high Not Available [facility]) [address] [place] [address], [address], 06/12/2018 14:19:14 06/12/20 18 06/12/2018 CBC w/ auto diff lymphs 9.0 % 12.30- 39.70 low Not Available [facility] [address] [place], [address], 06/12/2018 14:19:14 06/12/20 18 06/12/2018 CBC w/ auto diff monos 4.2 % 4.10-1 2.80 Not Available [facility] [address] [place], [address], 06/12/2018 14:19:14 06/12/20 18 06/12/2018 CBC w/ auto diff eos 0.9 % 0-7.2 Not Available [facility] [address] [place], [address], 06/12/2018 14:19:14 06/12/20 18 06/12/2018 CBC w/ auto diff basos 0.7 % 0-2.80 Not Available [facility] [address] [place], [address], 06/12/2018 14:19:14 06/12/20 18 06/12/2018 CBC w/ auto diff granulocytes , immature (%) 0.4 % 0.0-0. 9 Not Available [facility] [address] [place], [address], 06/12/2018 14:19:14 06/12/20 18 06/12/2018 CBC w/ auto diff absolute neuts 11.63 K/uL 1.40-7 .70 high Not Available [facility] [address] [place], [address], 06/12/2018 14:19:14 06/12/20 18 06/12/2018 CBC w/ auto diff absolute lymphs 1.24 K/uL 0.60-3 .20 Not Available [facility] [address] [place] [address], [address], 06/12/2018 14:19:14 06/12/20 18 06/12/2018 CBC w/ auto diff absolute monos 0.57 K/uL 0.11-0 .59 Not Available [facility] [address] [place] [address], [address], 06/12/2018 14:19:14 06/12/20 18 06/12/2018 CBC w/ auto diff absolute eos 0.13 K/uL 0.01-0 .50 Not Available [facility] [address] [place] [address], [address], 06/12/2018 14:19:14 06/12/20 18 06/12/2018 CBC w/ auto diff absolute basos 0.09 K/uL 0.00-0 .08 high Not Available [facility] [address] [place] [address], [address], 06/12/2018 14:19:14 06/12/20 18 06/12/2018 CBC w/ auto diff granulocytes , immature 0.05 K/uL 0.00-0 .05 Not Available [facility] [address] [place], [address], 06/12/2018 14:19:14 06/12/20 18 06/12/2018 CMP, serum or plasm a sodium 139 mmol/ L 133-14 6 Not Available [facility] [address] [place], [address], 06/12/2018 15:13:28 06/12/20 18 06/12/2018 CMP, serum or plasm a potassium 4.6 mmol/ L 3.3-5. 1 Not Available [facility] [address] [place] [address], [address], 06/12/2018 15:13:28 06/12/20 18 06/12/2018 CMP, serum or plasm a chloride 99 mmol/ L 96-108 Not Available [facility] [address] [place] [address], [address], 06/12/2018 15:13:28 06/12/20 18 06/12/2018 CMP, serum or plasm a CO2 28 mmol/ L 21-35 Not Available [facility] [address] [place], [address], 06/12/2018 15:13:28 06/12/20 18 06/12/2018 CMP, serum or plasm a BUN 22 mg/dL 6-19 high Not Available [facility] [address] [place], [address], 06/12/2018 15:13:28 06/12/20 18 06/12/2018 CMP, serum or plasm a creatinine 0.90 mg/dL 0.5-1. 5 Not Available [facility] [address] [place], [address], 06/12/2018 15:13:28 06/12/20 18 06/12/2018 CMP, serum or plasm a glucose 104 mg/dL 70-99 high Not Available [facility] [address] [place], [address], 06/12/2018 15:13:28 06/12/20 18 06/12/2018 CMP, serum or plasm a albumin 4.4 g/dL 3.9-4. 8 Not Available [facility] [address] [place], [address], 06/12/2018 15:13:28 06/12/20 18 06/12/2018 CMP, serum or plasm a total protein 6.9 g/dL 6.5-8. 0 Not Available [facility] [address] [place], [address], 06/12/2018 15:13:28 06/12/20 18 06/12/2018 CMP, serum or plasm a calcium 9.3 mg/dL 8.4-10 .3 Not Available [facility] [address] [place], [address], 06/12/2018 15:13:28 06/12/20 18 06/12/2018 CMP, serum or plasm a alkaline phosphatase 82 U/L 39-117 Not Available [facility] [address] [place], [address], 06/12/2018 15:13:28 06/12/20 18 06/12/2018 CMP, serum or plasm a total bilirubin 0.4 mg/dL 0.0-1. 2 Not Available [facility] [address] [place], [address], 06/12/2018 15:13:28 06/12/20 18 06/12/2018 CMP, serum or plasm a AST 16 U/L 0-37 Not Available [facility] [address] [place], [address], 06/12/2018 15:13:28 06/12/20 18 06/12/2018 CMP, serum or plasm a ALT 18 U/L 0-40 Not Available [facility] [address] [place], [address], 06/12/2018 15:13:28 06/12/20 18 06/12/2018 CMP, serum or plasm a globulin 2.5 g/dL 1-4.8 Not Available [facility] [address] [place] [address], [address], 06/12/2018 15:13:28 06/12/20 18 06/12/2018 CMP, serum or plasm a eGFR 66 mL/mi n/1.7 3m2 >59 If patie nt is black , multi ply resul t by 1.159 . Estim ated glome rular filtr ation rate calcu lated using the CKD-E PI equat ion. Not Available [facility] [address] [place] [address], [address], 06/12/2018 15:13:28 06/12/20 18 06/12/2018 CMP, serum or plasm a anion gap 17 mmol/ L 10-20 Not Available [facility] [address] [place] [address], [address], 06/12/2018 15:13:28 06/12/20 18 06/12/2018 C-andra ctive prote in, quant itati ve, serum or plasm a C reactive protein 3.3 mg/L 0.0-4. 0 Not Available [facility] [address] [place], [address], 06/12/2018 15:13:30 06/12/20 18 06/13/2018 HBsAg (hepa titis B surfa ce Ag), serum HBV surface antigen Negati ve negati ve Not Available [facility] [address] [place] [address], [address], 06/13/2018 10:03:22 06/12/20 18 06/13/2018 hepat itis B virus core Ab, quali tativ e, serum hep B core Ab, tot Negati ve negati ve Not Available [facility] [address] [place] [address], [address], 06/13/2018 10:03:24 06/12/20 18 06/14/2018 tb (M [...] a level <0.35 IU/mL . Not Available [facility] [address] [place], [address], 06/14/2018 19:02:21 06/12/20 18 06/14/2018 tb (M tuber culos is), ifn-g deonte sai , blood TB1 Ag minus nil 0.11 IU/mL Not Available [facility]) [address] [place] [address], [address], 06/14/2018 19:02:21 06/12/20 18 06/14/2018 tb (M tuber culos is), ifn-g deonte sai , blood TB2 Ag minus nil 0.00 IU/mL Not Available [facility] [address] [place], [address], 06/14/2018 19:02:21 06/12/20 18 06/14/2018 tb (M tuber culos is), ifn-g deonte sai , blood mitogen minus nil 2.75 IU/mL Not Available [facility]) [address] [place] [address], [address], 06/14/2018 19:02:21 06/12/20 18 06/14/2018 tb (M tuber culos is), ifn-g deonte sai , blood nil result 0.01 IU/mL Not Available [facility]) [address] [place] [address], [address], 06/14/2018 19:02:21 10/18/19 19 10/17/2018 CBC w/ auto diff WBC 10.03 K/uL 3.40-1 1.20 Not Available [facility]) [address] [place] [address], [address], 10/17/2018 15:41:19 10/18/19 19 10/17/2018 CBC w/ auto diff RBC 4.02 M/uL 3.80-4 .80 Not Available [facility]) [address] [place] [address], [address], 10/17/2018 15:41:19 10/18/19 19 10/17/2018 CBC w/ auto diff HGB 11.9 g/dL 12.0-1 5.0 low Not Available [facility]) [address] [place] [address], [address], 10/17/2018 15:41:19 10/18/19 19 10/17/2018 CBC w/ auto diff HCT 35.2 % 36.0-4 6.0 low Not Available [facility]) [address] [place] [address], [address], 10/17/2018 15:41:19 10/18/19 19 10/17/2018 CBC w/ auto diff plt 236 K/uL 130-40 0 Not Available [facility]) [address] [place], [address], 10/17/2018 15:41:19 10/18/19 19 10/17/2018 CBC w/ auto diff MCV 87.6 fL 79.0-9 8.0 Not Available [facility] [address] [place], [address], 10/17/2018 15:41:19 10/18/19 19 10/17/2018 CBC w/ auto diff MCH 29.6 pg 27.0-3 4.8 Not Available [facility] [address] [place], [address], 10/17/2018 15:41:19 10/18/19 19 10/17/2018 CBC w/ auto diff MCHC 33.8 g/dL 31.5-3 6.0 Not Available [facility] [address] [place], [address], 10/17/2018 15:41:19 10/18/1910/17/2018 CBC w/ auto diff RDW 12.9 % 10.8-1 4.6 Not Available [facility] [address] [place], [address], 10/17/2018 15:41:19 10/18/1910/17/2018 CBC w/ auto diff MPV 11.0 fL 9.4-12 .4 Not Available [facility] [address] [place], [address], 10/17/2018 15:41:19 10/18/1910/17/2018 CBC w/ auto diff NRBC 0.00 /100_ WBCs 0.00 Not Available [facility] [address] [place], [address], 10/17/2018 15:41:19 10/18/19 19 10/17/2018 CBC w/ auto diff absolute NRBC 0.00 K/uL 0.00 Not Available [facility] [address] [place], [address], 10/17/2018 15:41:19 10/18/19 19 10/17/2018 CBC w/ auto diff diff method Auto Not Available [facility] [address] [place], [address], 10/17/2018 15:41:19 10/18/19 19 10/17/2018 CBC w/ auto diff neuts 70.1 % 45.30- 77.70 Not Available [facility] [address] [place], [address], 10/17/2018 15:41:19 10/18/19 19 10/17/2018 CBC w/ auto diff lymphs 18.2 % 12.30- 39.70 Not Available [facility] [address] [place], [address], 10/17/2018 15:41:19 10/18/19 19 10/17/2018 CBC w/ auto diff monos 7.4 % 4.10-1 2.80 Not Available [facility] [address] [place], [address], 10/17/2018 15:41:19 10/18/19 19 10/17/2018 CBC w/ auto diff eos 2.8 % 0-7.2 Not Available [facility] [address] [place], [address], 10/17/2018 15:41:19 10/18/19 19 10/17/2018 CBC w/ auto diff basos 1.1 % 0-2.80 Not Available [facility] [address] [place], [address], 10/17/2018 15:41:19 10/18/19 19 10/17/2018 CBC w/ auto diff granulocytes , immature (%) 0.4 % 0.0-0. 9 Not Available [facility] [address] [place], [address], 10/17/2018 15:41:19 10/18/19 19 10/17/2018 CBC w/ auto diff absolute neuts 7.03 K/uL 1.40-7 .70 Not Available [facility] [address] [place], [address], 10/17/2018 15:41:19 10/18/19 19 10/17/2018 CBC w/ auto diff absolute lymphs 1.83 K/uL 0.60-3 .20 Not Available [facility] [address] [place], [address], 10/17/2018 15:41:19 10/18/19 19 10/17/2018 CBC w/ auto diff absolute monos 0.74 K/uL 0.11-0 .59 high Not Available [facility] ([facility] [address] [place], [address], 10/17/2018 15:41:19 10/18/19 19 10/17/2018 CBC w/ auto diff absolute eos 0.28 K/uL 0.01-0 .50 Not Available [facility] [address] [place], [address], 10/17/2018 15:41:19 10/18/19 19 10/17/2018 CBC w/ auto diff absolute basos 0.11 K/uL 0.00-0 .08 high Not Available [facility]) [address] [place] [address], [address], 10/17/2018 15:41:19 10/18/19 19 10/17/2018 CBC w/ auto diff granulocytes , immature 0.04 K/uL 0.00-0 .05 Not Available [facility] [address] [place], [address], 10/17/2018 15:41:19 10/18/19 19 10/17/2018 eryth rocyt e sedim entat ion rate by prema gonzalez d ESR 5 mm/h 0-30 Not Available [facility] [address] [place], [address], 10/17/2018 16:22:09 10/18/19 19 10/17/2018 CMP, serum or plasm a sodium 143 mmol/ L 133-14 6 Not Available [facility] ([facility] [address] [place], [address], 10/17/2018 16:48:20 10/18/19 19 10/17/2018 CMP, serum or plasm a potassium 4.3 mmol/ L 3.3-5. 1 Not Available [facility] (Outpatient) [address] [place], [address], 10/17/2018 16:48:20 10/18/19 19 10/17/2018 CMP, serum or plasm a chloride 104 mmol/ L 96-108 Not Available [facility] (Outpatient) [address] [place], [address], 10/17/2018 16:48:20 10/18/19 19 10/17/2018 CMP, serum or plasm a CO2 26 mmol/ L 21-35 Not Available [facility] (Outpatient) [address] [place], [address], 10/17/2018 16:48:20 10/18/19 19 10/17/2018 CMP, serum or plasm a BUN 28 mg/dL 6-19 high Not Available [facility] [address] [place], [address], 10/17/2018 16:48:20 10/18/19 19 10/17/2018 CMP, serum or plasm a creatinine 1.00 mg/dL 0.5-1. 5 Not Available [facility] ([facility] [address] [place], [address], 10/17/2018 16:48:20 10/18/19 19 10/17/2018 CMP, serum or plasm a glucose 127 mg/dL 70-99 high Not Available [facility] ([facility]) [address] [place], [address], 10/17/2018 16:48:20 10/18/19 19 10/17/2018 CMP, serum or plasm a albumin 4.3 g/dL 3.9-4. 8 Not Available [facility] ([facility]) [address] [place], [address], 10/17/2018 16:48:20 10/18/19 19 10/17/2018 CMP, serum or plasm a total protein 6.9 g/dL 6.5-8. 0 Not Available [facility] ([facility]) [address] [place], [address], 10/17/2018 16:48:20 10/18/19 19 10/17/2018 CMP, serum or plasm a calcium 9.5 mg/dL 8.4-10 .3 Not Available [facility] [address] [place], [address], 10/17/2018 16:48:20 10/18/19 19 10/17/2018 CMP, serum or plasm a alkaline phosphatase 74 U/L 39-117 Not Available [facility] (Outpatient) [address] [place], [address], 10/17/2018 16:48:20 10/18/19 19 10/17/2018 CMP, serum or plasm a total bilirubin 0.3 mg/dL 0.0-1. 2 Not Available [facility] [address] [place], [address], 10/17/2018 16:48:20 10/18/19 19 10/17/2018 CMP, serum or plasm a AST 19 U/L 0-37 Not Available [facility] [address] [place], [address], 10/17/2018 16:48:20 10/18/19 19 10/17/2018 CMP, serum or plasm a ALT 17 U/L 0-40 Not Available [facility] [address] [place], [address], 10/17/2018 16:48:20 10/18/19 19 10/17/2018 CMP, serum or plasm a globulin 2.6 g/dL 1-4.8 Not Available [facility]) [address] [place] [address], [address], 10/17/2018 16:48:20 10/18/19 19 10/17/2018 CMP, serum or plasm a eGFR 58 mL/mi n/1.7 3m2 >59 low If patie nt is black , multi ply resul t by 1.159 . Estim ated glome rular filtr ation rate calcu lated using the CKD-E PI equat ion. Not Available [facility]) [address] [place] [address], [address], 10/17/2018 16:48:20 10/18/19 19 10/17/2018 CMP, serum or plasm a anion gap 17 mmol/ L 10-20 Not Available [facility]) [address] [place] [address], [address], 10/17/2018 16:48:20 10/18/19 19 10/17/2018 C-andra ctive prote in, quant itati ve, serum or plasm a C reactive protein 6.2 mg/L 0.0-4. 0 high Not Available [facility] ([facility] [address] [place], [address], 10/17/2018 16:48:21 01/17/20 19 01/16/2019 CBC w/ auto diff WBC 10.98 K/uL 3.40-1 1.20 Not Available [facility] [address] [place], [address], 01/16/2019 16:23:22 01/17/20 19 01/16/2019 CBC w/ auto diff RBC 4.04 M/uL 3.80-4 .80 Not Available [facility] [address] [place], [address], 01/16/2019 16:23:22 01/17/20 19 01/16/2019 CBC w/ auto diff HGB 11.9 g/dL 12.0-1 5.0 low Not Available [facility] [address] [place], [address], 01/16/2019 16:23:22 01/17/20 19 01/16/2019 CBC w/ auto diff HCT 35.3 % 36.0-4 6.0 low Not Available [facility] [address] [place], [address], 01/16/2019 16:23:22 01/17/20 19 01/16/2019 CBC w/ auto diff plt 274 K/uL 130-40 0 Not Available [facility] [address] [place], [address], 01/16/2019 16:23:22 01/17/20 19 01/16/2019 CBC w/ auto diff MCV 87.4 fL 79.0-9 8.0 Not Available [facility] [address] [place], [address], 01/16/2019 16:23:22 01/17/20 19 01/16/2019 CBC w/ auto diff MCH 29.5 pg 27.0-3 4.8 Not Available [facility] [address] [place], [address], 01/16/2019 16:23:22 01/17/20 19 01/16/2019 CBC w/ auto diff MCHC 33.7 g/dL 31.5-3 6.0 Not Available [facility] ([facility] [address] [place], [address], 01/16/2019 16:23:22 01/17/20 19 01/16/2019 CBC w/ auto diff RDW 13.3 % 10.8-1 4.6 Not Available [facility] [address] [place], [address], 01/16/2019 16:23:22 01/17/20 19 01/16/2019 CBC w/ auto diff MPV 11.7 fL 9.4-12 .4 Not Available [facility] [address] [place], [address], 01/16/2019 16:23:22 01/17/20 19 01/16/2019 CBC w/ auto diff NRBC 0.00 /100_ WBCs 0.00 Not Available [facility] [address] [place], [address], 01/16/2019 16:23:22 01/17/20 19 01/16/2019 CBC w/ auto diff absolute NRBC 0.00 K/uL 0.00 Not Available [facility] [address] [place], [address], 01/16/2019 16:23:22 01/17/20 19 01/16/2019 CBC w/ auto diff diff method Auto Not Available [facility] [address] [place], [address], 01/16/2019 16:23:22 01/17/20 19 01/16/2019 CBC w/ auto diff neuts 81.4 % 45.30- 77.70 high Not Available [facility] ([facility] [address] [place], [address], 01/16/2019 16:23:22 01/17/20 19 01/16/2019 CBC w/ auto diff lymphs 10.6 % 12.30- 39.70 low Not Available [facility]) [address] [place] [address], [address], 01/16/2019 16:23:22 01/17/20 19 01/16/2019 CBC w/ auto diff monos 4.7 % 4.10-1 2.80 Not Available [facility]) [address] [place] [address], [address], 01/16/2019 16:23:22 01/17/20 19 01/16/2019 CBC w/ auto diff eos 2.0 % 0-7.2 Not Available [facility]) [address] [place] [address], [address], 01/16/2019 16:23:22 01/17/20 19 01/16/2019 CBC w/ auto diff basos 1.0 % 0-2.80 Not Available [facility]) [address] [place] [address], [address], 01/16/2019 16:23:22 01/17/20 19 01/16/2019 CBC w/ auto diff granulocytes , immature (%) 0.3 % 0.0-0. 9 Not Available [facility]) [address] [place] [address], [address], 01/16/2019 16:23:22 01/17/20 19 01/16/2019 CBC w/ auto diff absolute neuts 8.94 K/uL 1.40-7 .70 high Not Available [facility]) [address] [place] [address], [address], 01/16/2019 16:23:22 01/17/20 19 01/16/2019 CBC w/ auto diff absolute lymphs 1.16 K/uL 0.60-3 .20 Not Available [facility]) [address] [place] [address], [address], 01/16/2019 16:23:22 01/17/20 19 01/16/2019 CBC w/ auto diff absolute monos 0.52 K/uL 0.11-0 .59 Not Available [facility] ([facility]) [address] [place], [address], 01/16/2019 16:23:22 01/17/20 19 01/16/2019 CBC w/ auto diff absolute eos 0.22 K/uL 0.01-0 .50 Not Available [facility] ([facility] [address] [place], [address], 01/16/2019 16:23:22 01/17/20 19 01/16/2019 CBC w/ auto diff absolute basos 0.11 K/uL 0.00-0 .08 high Not Available [facility] ([facility]) [address] [place], [address], 01/16/2019 16:23:22 01/17/20 19 01/16/2019 CBC w/ auto diff granulocytes , immature 0.03 K/uL 0.00-0 .05 Not Available [facility] ([facility]) [address] [place], [address], 01/16/2019 16:23:22 01/17/20 19 01/16/2019 eryth rocyt e sedim entat ion rate by prema sanchezo d ESR 9 mm/h 0-30 Not Available [facility] ([facility]) [address] [place], [address], 01/16/2019 17:39:50 01/17/20 19 01/16/2019 C-andra ctive prote in, quant itati ve, serum or plasm a C reactive protein 5.2 mg/L 0.0-4. 0 high Not Available [facility] ([facility]) [address] [place], [address], 01/16/2019 18:50:56 01/17/20 19 01/16/2019 CMP, serum or plasm a sodium 141 mmol/ L 133-14 6 Not Available [facility] ([facility] [address] [place], [address], 01/16/2019 22:11:00 01/17/20 19 01/16/2019 CMP, serum or plasm a potassium 4.4 mmol/ L 3.3-5. 1 Not Available [facility] ([facility]) [address] [place], [address], 01/16/2019 22:11:00 01/17/20 19 01/16/2019 CMP, serum or plasm a chloride 102 mmol/ L 96-108 Not Available [facility] ([facility]) [address] [place], [address], 01/16/2019 22:11:00 01/17/20 19 01/16/2019 CMP, serum or plasm a CO2 23 mmol/ L 21-35 Not Available [facility] ([facility]) [address] [place], [address], 01/16/2019 22:11:00 01/17/2001/16/2019 CMP, serum or plasm a BUN 23 mg/dL 6-19 high Not Available [facility] ([facility]) [address] [place], [address], 01/16/2019 22:11:00 01/17/2001/16/2019 CMP, serum or plasm a creatinine 1.50 mg/dL 0.5-1. 5 Not Available [facility] ([facility]) [address] [place], [address], 01/16/2019 22:11:00 01/17/2001/16/2019 CMP, serum or plasm a glucose 161 mg/dL 70-99 high Not Available [facility] ([facility]) [address] [place], [address], 01/16/2019 22:11:00 01/17/2001/16/2019 CMP, serum or plasm a albumin 4.0 g/dL 3.9-4. 8 Not Available [facility] ([facility]) [address] [place], [address], 01/16/2019 22:11:00 01/17/20 19 01/16/2019 CMP, serum or plasm a total protein 6.8 g/dL 6.5-8. 0 Not Available [facility] ([facility]) [address] [place], [address], 01/16/2019 22:11:00 01/17/20 19 01/16/2019 CMP, serum or plasm a calcium 9.0 mg/dL 8.4-10 .3 Not Available [facility] ([facility]) [address] [place], [address], 01/16/2019 22:11:00 01/17/20 19 01/16/2019 CMP, serum or plasm a alkaline phosphatase 78 U/L 39-117 Not Available [facility] ([facility]) [address] [place], [address], 01/16/2019 22:11:00 01/17/20 19 01/16/2019 CMP, serum or plasm a total bilirubin 0.4 mg/dL 0.0-1. 2 Not Available [facility] ([facility]) [address] [place], [address], 01/16/2019 22:11:00 01/17/20 19 01/16/2019 CMP, serum or plasm a AST 21 U/L 0-37 Not Available [facility] ([facility]) [address] [place], [address], 01/16/2019 22:11:00 01/17/20 19 01/16/2019 CMP, serum or plasm a ALT 19 U/L 0-40 Not Available [facility] ([facility]) [address] [place], [address], 01/16/2019 22:11:00 01/17/20 01/16/2019 CMP, serum or plasm a globulin 2.8 g/dL 1-4.8 Not Available [facility] ([facility]) [address] [place], [address], 01/16/2019 22:11:00 01/17/20 19 01/16/2019 CMP, serum or plasm a eGFR 35 mL/mi n/1.7 3m2 >59 low If patie nt is black , multi ply resul t by 1.159 . Estim ated glome rular filtr ation rate calcu lated using the CKD-E PI equat ion. Not Available [facility] (Out[facility]) [address] [place], [address], 01/16/2019 22:11:00 01/17/20 19 01/16/2019 CMP, serum or plasm a anion gap 20 mmol/ L 10-20 Not Available [facility] ([facility]) [address] [place], [address], 01/16/2019 22:11:00 06/12/20 18 06/12/2018 xr chest [...] Final result [facility] states [facility] [address] [place], [address], 06/12/2018 20:56:35 09/07/19 19 09/06/2018 bd dxa [...] Jane MD 9 Final result NATALIE Kaur [facility] [address] [facility], [place], [address], 09/08/2018 18:43:16 Result Notes None recorded. 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 15:48:05 Mixed hyperlip idemia 372651104 Active 2001 Natalie Reveles MD [address] [place] [address] Betty Hernán[place], [address], [facility] 6 12:19:12 Colitis, enteriti s and gastroen teritis presumed infectio us 303319751 Completed 200611/06/2009 Natalie Reveles MD [address] [place] [address] Betty Hernán[place], [address], [facility] 6 15:03:24 Nausea 915097962 Completed 200611/06/2009 Natalie Reveles MD [address] [place] [address] Betty Hernán[place], [address], [facility] 6 15:03:24 Essentia l hyperten lindsay 38035395 Completed 200311/06/2009 Natalie Reveles MD [address] [place] [address] Betty Hernán[place], [address], [facility] 6 15:03:24 Nausea and vomiting 66058237 Completed 200611/06/2009 Natalie Revlees MD [address] [place] [address] Betty Hernán[place], [address], [facility] 6 15:03:24 Cellulit is and abscess of buttock 256492607 Completed 200011/06/2009 Natalie Reveles MD [address] [place] [address] Betty Hernán[place], [address], [facility] 6 15:03:24 Urinary tract infectio us disease 82497417 Completed 200711/06/2009 Natalie Reveles MD [address] [place] [address] Betty Hernán[place], [address], [facility] 6 15:03:24 Benign essentia l hyperten lindsay 4469660 Active 2001 Natalie Reveles MD [address] [place] [address] Betty Hernán[place], [address], [facility] 6 12:19:12 Acute cystitis 54627881 Completed 200411/06/2009 Natalie Reveles MD [address] [place] [address] Betty Hernán[place], [address], [facility] 6 15:03:24 Acute pain 924489297 Completed 200711/06/2009 Natalie Reveles MD [address] [place] [address] Betty Hernán[place], [address], [facility] 6 15:03:24 Allergic rhinitis 42072380 Completed 200511/06/2009 Natalie Reveles MD [address] [place] [address] Betty Hernán[place], [address], [facility] 6 15:03:24 Osteoart hritis 986672235 Completed 200711/06/2009 Natalie Reveles MD [address] [place] [address] Betty Hernán[place], [address], [facility] 6 15:03:24 Sciatica 23858290 Active 2007 spinal stenosis Natalie Reveles MD [address] [place] [address] Betty Hernán[place], [address], [facility] 6 15:03:24 Diabetic on insulin 526992436 Active Natalie Reveles MD [address] [place] [address] Betty Hernán[place], [address], [facility] 6 12:19:12 Type 2 diabetes 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 complica tion 194004366 Active 2004 Natalie Reveles MD [address] [place] [address] Betty Hernán[place], [address], [facility] 6 12:19:12 Anemia 937918441 Completed 200611/06/2009 Natalie Reveles MD [address] [place] [address] Betty Hernán[place], [address], [facility] 6 15:03:24 Acute maxillar y sinusiti s 82192989 Completed 200311/06/2009 Natalie Reveles MD [address] [place] [address] Betty Hernán[place], [address], [facility] 6 15:03:24 Arteriti s 64137515 Completed 200511/06/2009 Natalie Reveles MD [address] [place] [address] Betty Hernán[place], [address], [facility] 6 15:03:24 Uncontro lled type 2 diabetes mellitus 557287573 Completed 200606/12/2013 Natalie Reveles MD [address] [place] [address] Betty Hernán[place], [address], [facility] 6 15:03:24 Degenera tive joint disease involvin g multiple joints 125843870 Completed 200006/12/2013 Natalie Reveles MD [address] [place] [address] Betty Hernán[place], [address], [facility] 6 15:03:24 Hyperlip idemia 27339004 Completed 200111/06/2009 Natalie Reveles MD [address] [place] [address] Betty Hernán[place], [address], [facility] 6 15:03:24 Backache 810178111 Completed 200711/06/2009 Natalie Reveles MD [address] [place] [address] Betty Hernán[place], [address], [facility] 6 15:03:24 Malaise and fatigue 474713348 Completed 200111/06/2009 Natalie Reveles MD [address] [place] [address] Betty Hernán[place], [address], [facility] 6 15:03:24 Contact dermatit is 10720158 Completed 11/06/2009 Natalie Reveles MD [address] [place] [address] Betty Hernán[place], [address], [facility] 6 15:03:24 Cough 73279525 Completed 200411/06/2009 Natalie Reveles MD [address] [place] [address] Betty Hernán[place], [address], [facility] 6 15:03:24 Rheumato id arthriti s 31417950 Active sero-nega tive Natalie Reveles MD [address] [place] [address] Betty Hernán[place], [address], [facility] 6 12:19:12 Fever 585528360 Completed 200611/06/2009 Natalie Reveles MD [address] [place] [address] Betty Hernán[place], [address], [facility] 6 15:03:24 Allergic asthma without status asthmati cus 19333632 Active 2002 Natalie Reveles MD [address] [place] [address] Betty Hernán[place], [address], [facility] 6 15:03:24 Acute sinusiti s 96561129 Completed 05/14/2013 Natalie Reveles MD [address] [place], [place] [address], [address], [facility] 6 15:03:24 Common cold 04999960 Completed 200211/06/2009 Natalie Reveles MD [address] [place], [place] [address], [address], [facility] 6 15:03:24 Common cold 25752393 Completed 05/14/2013 Natalie Reveles MD [address] [place] [address] Betty Hernán[place], [address], [facility] 6 15:03:24 On examinat ion - a rash Completed 200511/06/2009 Natalie Reveles MD [address] [place], [place] [address]Bet[place], [address], [facility] 6 15:03:24 General symptom 812914698 Completed 200611/06/2009 Natalie Reveles MD [address] [place], [place] [address], [address], [facility] 6 15:03:24 Blood chemistr y outside referenc e range 045147112 Completed 200311/06/2009 Natalie Reveles MD [address] [place], [place] [address], [address], [facility] 6 15:03:24 Hypothyr oidism 60414327 Completed 200607/22/2015 Nataile Reveles MD [address] [place], [place] [address], [address], [facility] 6 15:03:24 Mononeur itis 56822944 Active 2003 Natalie Reveles MD [address] [place], [place] [address], [address], [facility] 6 15:03:24 Primary fibromya lgia syndrome 19802398 Completed 200211/06/2009 Natalie Reveles MD [address] [place], [place] [address], [address], [facility] 6 15:03:24 Vaginiti s and vulvovag initis Completed 200011/06/2009 Natalie Reveles MD [address] [place], [place] [address], [address], [facility] 6 15:03:24 Problem Notes None recorded. Procedures Surgical History Date Name Laterality Status Provider Name and Address Organization Details Recorded Time 9 Medicare Wellness Visit completed Sarah Jewell MA [facility] 12/31/2018 14:43:15 8 Medicare Wellness Visit completed Liz Boyce CMA [facility] 12/27/2017 15:09:17 8 Post hospital/SNF follow-up/[facility] sitional Care completed Liz Boyce CMA [facility] 11/13/2017 14:14:12 8 Nebulizer Tx completed Karmen White LPN [facility] 08/02/2017 14:24:48 7 Medicare Wellness Visit completed Mary Finley MA [facility] 12/25/2016 09:27:15 Imaging Results Imaging Date Name Status LastModified by Organiz ation Details LastModified Time 06/12/2018 xr chest Pa and lateral 2 views completed [facility] [address] [place], [address], 06/12/2018 20:56:35 09/06/2018 bd dxa axial (spine) with hip completed [facility] [address] [place], [address], 09/08/2018 18:43:16 Procedure Notes None recorded. Medical Equipment None Reported. Allergies Allergen ID Allergen Name Allergen Category Reaction Reaction Severity Criticality Documentation Date Start Date Code Code System Note Provider Name and Address Organization Details Recorded Time 449216 doxycycli ne Not available nausea Not available Not available 11/27/2013 3640 RxNorm Kacey Espinoza MA [facility] 4 10:10:57 116779 codeine medicatio n nausea Not available Not available 08/17/2015 2670 RxNorm Angelica Hicks CMA [facility] 6 16:23:36 05272 Substance with sulfonami de structure and antibacte rial mechanism of action (substanc e) medicatio n hives Not available Not available 06/29/2010 29509 8003 SNOMED Not Available [facility] [...] EVERY DAY AT BEDTIME 11/13 completed per [facility] d/c 11/08/17 new dose as [...] Updated DateTime 8 147.95 cm 35.9 kg/m2 28888.1 8 g 80 /min 97 % 97 % 126 mm[Hg] 74 mm[Hg] Sarah Jewell MA [facility] 8 10:50:58 Date Recorded Body height Body mass index (BMI) Body weight Heart rate Systolic blood pressure Diastolic blood pressure Provider Name and Address Organization Details Last Updated DateTime 9 147.95 cm 35.7 kg/m2 27432.6 9 g 64 /min 90 mm[Hg] 54 mm[Hg] Marcia Baron MA [facility] 9 11:24:40 Date Recorded Body height Body mass index (BMI) Body weight Oxygen saturation Oxygen saturation in Arterial blood by Pulse oximetry Heart rate Systolic blood pressure Diastolic blood pressure Provider Name and Address Organization Details Last Updated DateTime 9 147.95 cm 36.3 kg/m2 97645.7 6 g 96 % 96 % 76 /min 120 mm[Hg] 62 mm[Hg] Sarah Jewell [facility] 9 14:52:36 Date Recorded Systolic blood pressure Diastolic blood pressure Systolic blood pressure Diastolic blood pressure Provider Name and Address Organization Details Last Updated DateTime 12/31/2018 120 mm[Hg] 60 mm[Hg] 120 mm[Hg] 60 mm[Hg] Kassie Reynolds [facility] 9 15:58:43 Date Recorded Body height Body mass index (BMI) Body weight Body temperature Heart rate Oxygen saturation Oxygen saturation in Arterial blood by Pulse oximetry Systolic blood pressure Diastolic blood pressure Provider Name and Address Organization Details Last Updated DateTime 147.95 cm 35.9 kg/m2 14089.5 8 g 97.9 [degF] 88 /min 96 % 96 % 114 mm[Hg] 62 mm[Hg] [facility] 09:44:29 Social History Question [...] Caffeine Consumption? Moderate 4 Cups Tea Daily [id number] Information not available 12/27/2017 How Much Tobacco [...] What Is Your Occupation? Retired Health Information AARON jordan Information not available 12/31/2018 How Many Days In The Past Year Have You Had A Heavy Drinking Consumption (4+ Female, 5+ Male)? 0 Information not available 11/30/2016 Are There Any Guns Present In Your Home? No [id number] Information not available 05/11/2011 Live Alone Or With Others? With Others Sister, Uncle, Brother In Law nikki Information not available 06/12/2013 CSRP - Narcotics [...] Organization Details LastModified Time Sister Diabetes mellitus nikki Not available 2015 16:41:38 Notes:Diabetes. Sister with brain tumor. Medical History Condition Response Osteoarthritis Y Hyperlipidemia Y Asthma Y Diabetes Type II Y Hypertension Y Gynecological HistoryNo gynecological history recorded. Obstetrics History GPAL:G 0 P 0 0 0 0 Immunizations Vaccine Type Date Status Note Provider Nam e and Address Organization Details Recorded Time tetanus toxoid, unspecified formulation 1 completed Not Available [facility] 07/12/2019 02:34:13 influenza, unspecified formulation 0 completed Not Available [facility] 05/10/2011 05:22:52 Influenza, split virus, trivalent, preservative 1 [facility] 14:09:08 Tdap 1 completed Fang Robison RN [facility] 06/12/2011 16:12:51 influenza, unspecified formulation 2 [facility]/21[facility]2012 16:38:35 influenza, unspecified formulation 3 [facility] 06/12/2013 16:12:54 influenza, unspecified formulation 4 [facility] 06/23/2014 15:26:51 influenza, unspecified formulation 5 [facility] 04/29/2015 14:13:29 Pneumococcal conjugate PCV 13 8 completed Not Available [facility] 07/12/2019 02:22:36 Hep B, adult 9 completed Not Available [facility] 07/12/2019 02:34:54 influenza, unspecified formulation 6 completed Not Available [facility] 07/26/2019 02:10:42 pneumococcal polysaccharide PPV23 9 completed Not Available [facility] 07/12/2019 02:24:02 Influenza, split virus, quadrivalent, preservative 7 completed Liz Boyce CMA [facility] 05/03/2017 14:36:38 Past Encounters Encounter ID Performer Location Encounter Start Date Encounter Closed Date Diagnosis/Indication Diagnosis SNOMED-CT Code Diagnosis ICD10 Code Diagnosis Note [id number] [facility], OFFICE [address] [place] [address] 09/14/2000 12:00:00 07/15/2008 02:02:29 [id number] RAJEEV [facility], OFFICE [address] [address] 6 10/16/2000 10:45:00 07/15/2008 02:02:29 [id number] FP, [facility], OFFICE [address] [address] 6 02/28/2001 14:15:00 07/15/2008 02:02:29 [id number] FP, [facility], OFFICE [address] [address] 6 03/01/2001 09:45:00 07/15/2008 02:02:29 [id number] FP, [facility], OFFICE [address] [address] 6 10/22/2001 09:00:00 07/15/2008 02:02:29 [id number] LAB - [facility] 70 [facility] [place] [address] 6 10/22/2001 10:30:00 07/15/2008 02:02:29 [id number] RAJEEV [facility] [address] 12/02/2001 08:19:54 07/15/2008 02:02:29 [id number] Radiology , [facility] [address] [place] [address] 1 12/02/2001 11:21:25 07/15/2008 02:02:29 [id number] LAB - [address] [place] [address] 04/24/2002 08:28:24 07/15/2008 02:02:29 [id number] [facility], OFFICE [address] [place] [address] 6 04/30/2002 16:42:20 07/15/2008 02:02:29 [id number] LAB - [facility] [address] 6 07/22/2002 09:02:09 07/15/2008 02:02:29 [id number] FP [facility], OFFICE [address] [place] [address] 6 07/29/2002 16:39:59 07/15/2008 02:02:29 [id number] [facility], OFFICE [address] [place] [address] 6 10/30/2002 11:15:27 07/15/2008 02:02:29 [id number] LAB - [facility] [address] 10/30/2002 12:12:41 07/15/2008 02:02:29 [id number] RAJEEV [facility], OFFICE [address] [place] [address] 6 12/31/2002 10:02:51 07/15/2008 02:02:29 [id number] LAB - [facility] [address] [place] [address] 6 12/31/2002 00:00:00 07/15/2008 02:02:29 [id number] LAB - [address] [place] [address] 1 01/13/2003 11:28:31 07/15/2008 02:02:29 [id number] Radiology , [facility] [address] [place] [address] 01/15/2003 08:55:54 07/15/2008 02:02:29 [id number] RAJEEV [facility], OFFICE [address] [place] [address] 6 07/03/2003 16:41:59 07/04/2003 10:51:01 [id number] RAJEEV [facility], OFFICE [address] [place] [address] 6 10/13/2003 14:52:44 10/14/2003 08:39:08 [id number] LAB - [facility] [place] [place] [address] 6 10/22/2003 08:14:06 10/22/2003 08:14:10 [id number] RAJEEV [facility], OFFICE [address] [place] [address] 6 12/10/2003 14:34:40 12/12/2003 13:55:58 [id number] LAB - [facility] [address] [place] [address] 6 03/30/2004 08:05:15 03/30/2004 08:05:20 [id number] RAJEEV [facility], OFFICE [address] [place] [address] 6 07/04/2004 13:43:22 07/04/2004 17:14:21 [id number] RAJEEV [facility], OFFICE [address] [place] [address] 6 07/26/2004 09:25:43 07/27/2004 08:19:25 [id number] RAJEEV [facility], OFFICE [address] [place] [address] 6 08/08/2004 15:52:00 08/09/2004 08:55:32 [id number] FP, [facility], OFFICE [address] [place] [address] 6 09/05/2004 07:59:25 09/05/2004 15:25:12 [id number] FP, [facility], OFFICE [address] [place] [address] 6 09/19/2004 13:51:52 09/19/2004 17:45:01 [id number] LAB - [facility] [address] [place] [address] 6 10/05/2004 08:38:59 10/05/2004 08:39:04 [id number] FP, [facility], OFFICE [address] [place] [address] 6 10/10/2004 07:58:34 10/10/2004 14:31:17 [id number] FP [facility], OFFICE [address] [facility] [address] 6 11/03/2004 13:44:09 07/15/2008 02:02:29 [id number] LAB - [facility] [address] [place] [address] 6 01/16/2005 08:22:10 01/16/2005 08:22:26 [id number] FP [facility], OFFICE [address] [facility] [address] 6 01/24/2005 08:00:36 07/15/2008 02:02:29 [id number] Radiology , [facility] [address] [place] [address] 6 02/13/2005 11:40:53 07/15/2008 02:02:29 [id number] Radiology , [facility] 70 [facility] [place] [address] 02/13/2005 00:00:00 07/15/2008 02:02:29 [id number] FP, [facility], OFFICE [address] [facility] [address] 6 04/12/2005 08:22:15 07/15/2008 02:02:29 [id number] FP, [facility], OFFICE [address] [facility] [address] 6 04/28/2005 16:18:32 07/15/2008 02:02:29 [id number] LAB - [facility] [address] [place] [address] 6 08/22/2005 08:28:59 08/22/2005 08:29:02 [id number] FP, [facility], OFFICE [address] [place] [address] 6 08/28/2005 15:40:14 08/29/2005 08:44:57 [id number] [facility], OFFICE [address] [place] SANTA62[address] 6 09/21/2005 14:22:16 07/15/2008 02:02:29 [id number] LAB - [facility] 70 L[place] Robles62[address] 6 09/21/2005 15:10:47 09/21/2005 15:11:05 [id number] LAB - [facility] [address] [place] [address] 6 01/23/2006 08:32:14 01/23/2006 08:32:24 [id number] [facility], OFFICE [address] [place]ANTA62[address] 6 02/05/2006 11:04:33 02/06/2006 09:17:09 [id number] [facility], OFFICE [address] [place] [address] 6 03/21/2006 10:05:20 03/22/2006 08:20:24 [id number] [facility], OFFICE [address] [place] [address] 6 04/04/2006 11:34:15 04/08/2006 09:14:42 [id number] LAB - [facility] LISANDRO Banks62[address] 6 04/25/2006 08:18:53 04/25/2006 08:19:04 [id number] [facility], OFFICE [address] [place] [address] 6 05/03/2006 09:59:10 05/04/2006 08:46:05 [id number] Radiology , [facility] [address] [place] [address] 6 05/08/2006 08:08:08 07/15/2008 02:02:29 [id number] Radiology , [facility] [address] [place] [address] 6 05/08/2006 00:00:00 07/15/2008 02:02:29 [id number] [facility], OFFICE [address] [place] [address] 6 07/31/2006 08:56:23 07/31/2006 14:16:09 [id number] LAB - [facility] [address] [place] [address] 6 07/31/2006 10:36:02 07/31/2006 10:36:06 [id number] RAJEEV [facility], OFFICE [address] [place] [address] 6 08/07/2006 08:36:04 08/08/2006 08:58:07 [id number] LAB - [facility] [address] [place] [address] 6 10/22/2006 08:25:40 10/22/2006 08:25:45 [id number] RAJEEV [facility], OFFICE [address] [place] SANTA62[address] 6 10/29/2006 07:59:04 10/29/2006 10:37:03 [id number] LAB - [facility] [address] [place] [address] 6 10/30/2006 08:27:25 10/30/2006 08:27:30 [id number] RAJEEV [facility], OFFICE [address] [place] [address] 6 11/26/2006 10:44:18 11/26/2006 15:10:48 [id number] LAB - [facility] [place] [place] [address] 6 11/26/2006 11:29:37 11/26/2006 11:29:44 [id number] [facility], OFFICE [address] [place] [address] 6 12/06/2006 14:26:14 12/07/2006 08:30:34 [id number] RAJEEV [facility], OFFICE [address] [place] [address] 6 12/10/2006 13:46:03 12/11/2006 09:05:34 [id number] LAB - [facility] [place] [place] [address] 6 12/10/2006 14:31:03 12/10/2006 14:31:43 [id number] LAB - [facility] [place] [place] [address] 6 01/04/2007 07:54:29 01/04/2007 07:54:36 [id number] LAB - [facility] [place] [address] 6 04/08/2007 08:14:44 04/08/2007 08:14:49 [id number] RAJEEV [facility], OFFICE [address] [place] [address] 6 04/15/2007 16:27:24 04/18/2007 08:58:27 [id number] [facility] [address] [place] [address] 6 06/29/2007 09:23:36 07/01/2007 09:13:11 [id number] [facility], OFFICE 70 LIS[place] SANTA62[address] 6 09/20/2007 14:25:55 07/15/2008 02:02:29 [id number] [facility], OFFICE 70 L[place] SANTA62[address] 6 10/08/2007 14:05:16 07/15/2008 02:02:29 [id number] LAB - [facility] 70 L[place] Robles62-[address] 6 10/29/2007 08:19:39 10/29/2007 08:19:43 [id number] [facility], OFFICE 70 L[place] SANTA62-[address] 6 11/05/2007 09:43:59 07/15/2008 02:02:29 [id number] LAB - [facility] LISANDRO Banks62-[address] 6 11/12/2007 08:23:38 11/12/2007 08:23:44 [id number] LAB - [facility] LISANDRO Banks62-[address] 6 01/17/2008 12:48:01 01/17/2008 12:48:16 [id number] [facility], OFFICE 70 L[place] SANTA62-[address] 6 01/24/2008 14:09:47 07/15/2008 02:02:29 [id number] LAB - [facility] [place] [address] 6 01/24/2008 15:39:37 01/24/2008 15:40:02 [id number] LAB - [facility] [place] [address] 6 01/24/2008 00:00:00 07/15/2008 02:02:29 [id number] [facility], OFFICE [address] [place] [address] 6 03/30/2008 10:44:06 07/15/2008 02:02:29 [id number] Physical Therapy, [facility] LISANDRO Banks62[address] 6 03/31/2008 11:58:11 04/01/2008 09:12:25 [id number] Physical Therapy, [facility] LISANDRO Banks62-[address] 6 04/02/2008 08:36:13 04/02/2008 16:25:15 [id number] Physical [facility], [facility] LISANDRO Banks62-[address] 6 04/07/2008 08:34:12 04/07/2008 14:43:31 [id number] Physical Therapy, [facility] LISANDRO Banks62-[address] 6 04/09/2008 08:37:17 04/09/2008 15:42:30 [id number] Physical [facility], [facility] LISANDRO Banks62-[address] 6 04/14/2008 08:31:29 04/14/2008 14:21:06 [id number] LAB - [facility] [address] [place] [address] 6 07/07/2008 11:15:56 07/07/2008 11:16:03 [id number] [facility], OFFICE 70 [place] [address] 6 07/14/2008 13:28:43 07/24/2008 13:00:23 [id number] Radiology , [address] [place] [address] 12/19/2008 08:52:20 12/22/2008 14:08:26 [id number] [facility], OFFICE 70 [place] [address] 06/24/2009 14:39:32 06/24/2009 16:02:12 [id number] , [facility], OFFICE [address] [place] [address] 6 10/25/2009 13:26:11 11/10/2009 13:32:16 [id number] Radiology , [facility] 70 [place] [address] 10/25/2009 14:29:01 10/26/2009 11:21:38 [id number] , [facility], OFFICE [address] [place] [address] 6 06/29/2010 11:23:06 07/26/2010 11:56:31 [id number] , [facility], OFF[address] [place] [address] 6 09/22/2010 13:34:57 09/22/2010 17:04:13 [id number] FP [facility], OFF[address] [place] [address] 6 04/05/2011 09:42:34 04/05/2011 10:07:18 [id number] [facility], OFFICE [address] [place] [address] 6 04/10/2011 09:24:01 04/11/2011 11:28:27 [id number] [facility], OFFICE [address] [place] [address] 6 05/17/2011 13:46:28 05/17/2011 15:12:35 [id number] [facility] 70 [place] [address] 6 05/17/2011 14:58:54 05/22/2011 15:07:56 [id number] [facility], OFFICE [address] [place] [address] 6 05/26/2011 16:22:49 05/29/2011 14:16:46 [id number] [facility], OFFICE [address] [place] [address] 6 11/21/2011 11:10:29 11/21/2011 12:20:19 [id number] Natalie Reveles MD [facility], OFFICE [address] [place] [address] 6 05/21/2012 15:50:05 05/21/2012 17:16:10 [id number] ENRIKE Haq [facility], OFFICE [address] [place] [address] 6 08/06/2012 09:44:43 08/06/2012 10:34:24 [id number] Natalie Reveles MD [facility], OFF[address] [place] [address] 6 11/01/2012 15:29:43 11/04/2012 10:55:05 [id number] Natalie Reveles MD [facility], OFFICE [address] [place] [address] 6 02/21/2013 11:09:19 02/21/2013 12:15:52 Benign essential hypertension 6540881 continue to work on diet ,exercisea nd lowering salt intake as discussed Mixed hyperlipidemia 422428597 continue to work on diet and exercise as discussed Diabetic on insulin 327071704 Rheumatoid arthritis 23172228 [id number] Kacey Espinoza MA , [facility], OFFICE [address] [place] [address] 6 06/12/2013 15:53:14 06/12/2013 17:00:00 Benign essential hypertension 4416168 continue to work on diet ,exercisea nd lowering salt intake as discussed Mixed hyperlipidemia 045411097 continue to work on diet and exercise as discussed Adult [facility] th examination [id number] see Risk Assessment and Lifestyle Change Counseling section above Diabetic on insulin 397896439 Neuropathy due to diabetes mellitus 126585197 Mononeuritis 38967809 Rheumatoid arthritis 20036106 [id number] LISANDRO Neely, [facility], OFFICE [address] [place] [address] 06/19/2013 13:36:30 06/19/2013 14:00:11 Acute sinusitis 70199741 sx tx including afrin- strt ab if no relief Common cold 34141363 Upp er Respirator y Infection Drink plenty [...] days, or you have a high fever. [id number] Mary Finley MA , [facility], OFF[address] [place] [address] 6 09/23/2013 13:47:10 09/24/2013 10:04:00 Sinusitis 87429439 [id number] Yusuf Song MA , [facility], OFF[address] [place] [address] 6 09/29/2013 16:41:29 09/30/2013 09:41:00 Acute sinusitis 95304455 [id number] LISANDRO Perla, [facility], OFF[address] [place] [address] 6 11/27/2013 09:59:23 11/27/2013 16:10:44 Cough 85512891 [id number] Loni Panda MA , [facility], OFFICE [address] [place] [address] 12/11/2013 14:25:08 12/11/2013 15:34:31 Benign essential hypertension 9505818 continue to work on diet ,exercisea nd lowering salt intake as discussed Mixed hyperlipidemia 208353110 continue to work on diet and exercise as discussed Neuropathy due to diabetes mellitus 133007447 Diabetic on insulin 225907988 [id number] Natalie Reveles MD , [facility], OFFICE [address] [place] [address] 6 06/23/2014 15:01:46 06/23/2014 16:03:39 Spinal stenosis of lumbar region 51589316 Neuropathy due to diabetes mellitus 483593775 Diabetic on insulin 663713482 Allergic a sthma without status asthmaticus 66136618 Mixed hyperlipidemia 307800526 continue to work on diet and exercise as discussed Mononeuritis 31677393 Rheumatoid arthritis 39559939 Type 2 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 872325966 [id number] Mary Finley MA , [facility], OFFICE [address] [place] [address] 6 12/31/2014 14:26:47 12/31/2014 15:36:09 Benign essential hypertension 3616480 continue to work on diet, exercise, and lowering salt intake as discussed Blood pressure at goal Mixed hyperlipidemia 490089608 continue to work on diet and exercise as discussed Diabetic on insulin 817266863 Rheumatoid arthritis 71363377 [id number] Natalie Reveles MD , [facility], OFF[address] [place] [address] 6 04/29/2015 13:53:38 04/29/2015 14:45:02 Benign essential hypertension 5305986 I10 continue to work on diet, exercise, and lowering salt intake as discussed Mixed hyperlipidemia 267 341881 E78.2 continue to work on diet and exercise as discussed Diabetic on insulin 1707 57481 Z79.4 Type 2 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 th examination 853437154 Z00.00 see Risk Assessment and Lifestyle Change Counseling section above Neuropathy due to diabetes mellitus 077533378 E11.42 Diabetic on insulin 1707 68685 Z79.4 Hypothyroidism 08645884 E03.9 Rheumatoid arthritis 698 56686 M06.9 Spinal shara nosis of lumbar region 09160825 M48.06 Type 2 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 659036505 E11.9 [id number] Nilam Duane , [facility], OFFICE [address] [place] [address] 08/17/2015 16:10:28 08/17/2015 16:58:40 Acute sinusitis 78673199 J01.90 Eczema 09898890 L30.9 Asthma 175730519 J45.90 9 Allergic rhinitis 695360 04 J30.9 [id number] Natalie Reveles MD , [facility], OFF[address] [place] [address] 11/23/2015 14:02:11 11/23/2015 15:24:07 Benign essential hypertension 6538891 I10 Blood pressure at goal continue to work on diet, exercise, and lowering salt intake as discussed Mixed hyperlipidemia 267 847340 E78.2 Cholestero l is at goal Continue to work on diet and exercise as discussed Neuropathy due to diabetes mellitus 428317841 E11.42 Rheumatoid arthritis 698 58986 M06.9 Type 2 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 607843926 E11.9 Diabetic on insulin 1707 88023 Z79.4 [id number] Natalie Reveles MD , [facility], OFF[address] [place] [address] 03/23/2016 14:19:29 03/23/2016 15:26:40 Benign essential hypertension 4087911 I10 Blood pressure at goal Blood pressure NOT at goal. 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 142408375 E11.9 Mixed hyperlipidemia 267 469165 E78.2 continue to work on diet and exercise as discussed Acute sinusitis 01429434 J01.90 [id number] Natalie Reveles MD , [facility], OFF[address] [place] [address] 12/25/2016 09:20:57 12/25/2016 10:34:52 Adult health examination 251934204 Z00.00 see Risk Assessment and Lifestyle Change Counseling section above Counseling 885419194 Z71 .9 Mixed hyperlipidemia 267 937764 E78.2 continue to work on diet and exercise as discussed Benign ess ential hypertension 3751495 I10 Blood pressure at goal and re Mononeuritis 20949759 G5 8.9 Sciatica 59845567 M54.30 Diabetic on insulin 1707 35864 Z79.4 Rheumatoid arthritis 698 84630 M06.9 Neuropathy due to diabetes mellitus 863723733 E11.42 Hearing loss 20388040 H9 1.90 [id number] Natalie Reveles MD , [facility], [address] [place] [address] 05/03/2017 14:27:16 05/03/2017 15:21:54 Benign essential hypertension 0721216 I10 Blood pressure at goal . 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 At this point will tx with abx, probiotics , nasal rinses and rest. RTC prn [id number] Mami Bernstein MD , [facility], [address] [place] [address] 6 08/02/2017 13:49:47 08/02/2017 14:54:19 Allergic asthma without status asthmaticus 74232552 J45.909 feels diminished and wheezingbr eath sounds goodafter neb a bit improvedpe ak flows lower range, not much changesubj ectively feels easier to deep breath after nebulizerb ut albuterol makes her jittery and she avoids it when possiblesh ort term trial inhaled steroidcon tinue proair as neededf/u if not improving Acute uppe r respiratory infection 59345194 J06.9 Kriss is presenting today with recurrent URI sxthis does sound like a new viral URI and not pna or recurrent sinus infections upportive instr giventx coughaugme nt asthma mgmt [id number] Natalie Reveles MD , [facility], [address] [place] [address] 09/13/2017 14:23:47 09/13/2017 15:31:30 Benign essential hypertension 1396904 I10 Blood pressure at goal Mixed hyperlipidemia 267 293605 E78.2 continue to work on diet and exercise as discussed Sciatica 44537793 M54.30 Type 2 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 523060591 E11.9 Mononeuritis 32325298 G5 8.9 Rheumatoid arthritis 698 12841 M06.9 Diabetic on insulin 1707 43491 Z79.4 Anemia 612469401 D64.9 Asthma 515209910 J45.90 9 Active or passive immunization 677564625 Z23 [id number] , [facility], OFF[address] [place] [address] 11/13/2017 14:08:31 11/13/2017 14:54:27 Transient cerebral ischemia 740496060 G45.9 Diabetic on insulin 1707 57061 Z79.4 [id number] Natalie Reveles MD , [facility], [address] [place] [address] 12/27/2017 14:34:57 12/27/2017 16:04:03 Adult health examination 505352390 Z00.00 see Risk Assessment and Lifestyle Change Counseling section above Counseling 127574286 Z71 .9 Depression screening 171 922766 Z13.89 depression screening tool administer ed, entered into emr, scored and discussed, time greater than 7.5 minutes Focal onse t impaired awareness epileptic seizure 477185345 G40.209 Benign ess ential hypertension 5373256 I10 Blood pressure at goal Sciatica 56254342 M54.30 Mixed hyperlipidemia 267 929851 E78.2 continue to work on diet and exercise as discussed Type 2 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 796174115 E11.9 Allergic a sthma without status asthmaticus 21355800 J45.909 Diabetic on insulin 1707 61470 Z79.4 Rheumatoid arthritis 698 32694 M06.9 Neuropathy due to diabetes mellitus 472098137 E11.42 Screening mammography 24 673552 Z12.31 Active or passive immunization 150942631 Z23 [id number] Natalie Reveles MD , [facility], OFF[address] [place] [address] 04/30/2018 10:39:49 04/30/2018 11:23:30 Counseling 020307706 Z71.9 Benign ess ential hypertension 8206784 I10 Blood pressure at goal Mixed hyperlipidemia 267 217822 E78.2 continue to work on diet and exercise as discussed Focal onse t impaired awareness epileptic seizure 829068511 G40.209 Sciatica 07647731 M54.30 Type 2 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 326926858 E11.9 Mononeuritis 70934588 G5 8.9 Diabetic on insulin 1707 81969 Z79.4 Rheumatoid arthritis 698 79997 M06.9 Allergic a sthma without status asthmaticus 79157118 J45.909 Intolerant of ambient temperature 588224240 R68.89 [id number] Sil Carvajal , [facility], [address] [place] [address] 07/04/2018 09:15:51 07/04/2018 09:27:41 Active or passive immunization 351132725 Z23 [id number] Natalie Reveles MD , [facility], [address] [place] [address] 08/29/2018 11:16:37 08/30/2018 10:37:41 Acute sinusitis 38887425 J01.90 Benign ess ential hypertension 9319251 I10 Blood pressure at goal Type 2 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 317028736 E11.9 Mononeuritis 50296296 G5 8.9 Rheumatoid arthritis 698 69129 M06.9 [id number] Natalie Reveles MD , [facility], [address] [place] [address] 12/31/2018 14:40:49 12/31/2018 16:07:09 Adult health examination 387477484 Z00.00 see Risk Assessment and Lifestyle Change Counseling section above Counseling [id number] Z71 .9 Depression screening 171 973860 Z13.89 depression screening tool administer ed, entered into emr, scored and discussed, time greater than 7.5 minutes Mixed hyperlipidemia 267 042003 E78.2 Focal onse t impaired awareness epileptic seizure 489967961 G40.209 Benign ess ential hypertension 0788943 I10 Blood pressure at goal Sciatica 21806921 M54.30 Type 2 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 798139825 E11.9 Allergic a sthma without status asthmaticus 08716332 J45.909 Diabetic on insulin 1707 67482 Z79.4 Rheumatoid arthritis 698 59823 M06.9 Gastroesop hageal reflux disease 192963732 K21.9 Active or passive immunization 167802290 Z23 Neuropathy due to diabetes mellitus 574950780 E11.42 [id number] Natalie Reveles MD , [facility], [address] [place] [address] 02/20/2019 09:32:43 02/20/2019 10:11:54 Acute sinusitis 46940981 J01.90 Health Concerns Section Related Observation LastModified by Organization Detai ls LastModified Time None Recorded Concern Status LastModified by Organization Details LastModified Time None Recorded Advance Directives Directive N: Payers Encounter Date Sequence Insurance Name Policy Number Policy Samuel Covered Member ID Samuel Member ID Guarantor Name 04/30/2018 1 [place] [employer] Kriss Jackson [id number] Kriss Jackson 04/30/2018 2 [place] [id number] Kriss Jackson [id number] Kriss Jackson 07/04/2018 1 [place] Kriss Jackson [id number] Kriss Jackson 07/04/2018 2 [place] [id number] Kriss Jackson [id number] Kriss Jackson 08/29/2018 1 MEDICARE B-[place]: [facility] SERVICES Kriss Jackson [id number] Kriss Jackson 08/29/2018 2 [place] [id number] Kriss Jackson [id number] Kriss Jackson 12/31/2018 1 MEDICARE B-[place]: [facility] Kriss Jackson [id number] Kriss Jackson 12/31/2018 2 [place] [id number] Kriss Jackson [id number] Kriss Jackson 02/20/2019 1 MEDICARE [place]: [facility] Kriss Jackson [id number] Kriss Jackson 02/20/2019 2 [place] [id number] Kriss Jakcson [id number] Kriss Jackson Notes Date Note Type [...] intolerance has developed recently Natalie Reveles MD [address] [place] [address], [phone], [facility] 05/11/2018 15:01:12 9 text/html 67 [...] lidocaine patches prn for feetCame back from [place] yesterday and had allergy sx. Using flonase, asthma inhaler, loratidine.Recent A1 C was <6% per Dr. Robson Reveles MD [address] [place] [address], [phone], [facility] 08/30/2018 13:31:11 9 text/html Physical [...] room and availability of urgent care at 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 Chance) Natalie Reveles MD [address] [place] [address], [phone], [facility] 01/05/2019 14:13:02 9 text/html Physical [...] room and availability of urgent care at [facility] DiabetesReported bypatient.Duration:chronic Control:usually well controlled; [...] green sputum. No dyspnea Natalie Reveles MD [address] [place] [address], [phone], [facility] 02/20/2019 10:14:25 OBGyn Episode No OBEpisode recorded.
--- OUTSIDE RECORDS SUMMARY | 2024-10-03 10:42 | XMS_ITS ---
Author Organization [facility] Address [address] [place] [address] Care Team Providers [employer] Name Role Phone Angel Pablo Primary Care Provider [phone] Antonio Giles Unavailable [phone] Allergies Allergen (clinical drug ingredient) Drug/Non Drug Allergy documented on EMR Reaction Allergy Type Onset Date Status sulfamethoxazole / trimethoprim Bactrim hives Drug Allergy Active duloxetine Cymbalta Unknown Drug Allergy Active doxycycline Doxycycline Unknown Drug Allergy Act jeannette codeine Codeine stomach upset Drug Allergy Act jeannette duloxetine Duloxetine Unknown Drug Allergy Activ e REASON FOR VISIT At Risk Footcare, Skin problem(s) Medications Medication SIG (Take, Route, Frequency, Duration) Notes Start Date End Date Status Omeprazole 40 MG 1 capsule 30 minutes before morning meal Orally Once a day for 30 day(s) Unknown Ferrous Sulfate ER A ctive Acetaminophen ER 500mg Act jeannette Ammonium Lactate 12 % 1 application Externally to affected areas of dry skin to feet except for between the toes Twice a day for 30 days Active Clopidogrel Bisulfate 75 MG 1 tablet Orally Once a day for 30 day(s) Unknown Lisinopril-hydroCHLOROthi azide Unknown ProAir HFA 108 (90 Base) MCG/ACT 2 puff as needed Inhalation every 6 hours PRN Unknown metroNIDAZOLE 1 % 1 application Externally Once a day Unknown Sucralfate Unknown Extra Depth Orthopedic Shoes (1 Pair) with Customized Heat Molded Multidensity Innersoles (3 Pair) as directed Dx: NIDDM/Polyneuropath y (E11.42), Hammertoe Foot Deformity (M20.41,M20.42), Preulcerative Skin Lesion(s) (L85.1 12/11/2023 Active Iron 27 240 (27 Fe) MG 1 tablet with barrington er or juice between meals Orally Once a day for 30 day(s) Unknown Hydroxychloroquine Sulfate 200 MG as directed Orally Unknown Lantus 100 UNIT/ML as directed Subcutaneous Unknown lamoTRIgine 25 MG 1 tablet Orally for 30 day(s) 2 in AM 2 in PM Unknown Lidocaine 5 % 1 patch remove after 12 hours Externally Once a day Unknown Vitamin D Unknown oxyBUTYnin Unknown Famotidine 40 MG 1 tablet at bedtime as needed Orally Once a day Unknown Zoledronic Acid Unkn own Fluticasone Propionate 50 MCG/ACT 1 spray in [...] UNIT/ML as directed Subcutaneous 20 units Active Atorvastatin Calcium 20 MG 1 tablet Orally Once a day for 30 day(s) Active Humira (2 Syringe) 40 MG/0.4ML INJECT 40 MG UNDER THE SKIN EVERY 2 WEEKS Subcutaneous for 28 Days 1 needle every 2 week Active Lantus SoloStar 100 UNIT/ML Subcutaneous for 29 Days Active lamoTRIgine 25 MG Oral for 90 Days Active Aspirin 81 MG 1 tablet Orally Once a day for 30 day(s) Active Albuterol Active Generlac 10 GM/15ML 15 mL as needed Orally Once a day Active Lisinopril 10 MG 1 tablet Orally [...] ast year? No Points 0 Interpretation Negative Vital Signs Height 2ut70wm in 09/16/2024 Weight 146 lbs 09/16/2024 BMI 30.51 kg/m2 09/16/2024 Blood pressure systolic 109 mm Hg 09/17/19 Blood pressure diastolic 50 mm Hg 025 Procedures Procedure Date Ordered Date Performed Result Body Sit e 55980-MTTOVVC NAIL, 6 OR MORE 09/16/2024 N/A 50065-UJDH SKIN LESIONS, OVER 4 09/16/2024 N/A Encounters Encounter Location Date Provider Diagnosis [facility] [address] [address] 09/16/2024 Antonio Giles Type 2 diabetes mellitus with diabetic polyneuropathy E11.42 ; Tinea unguium B35.1 and Xerosis of skin L85.3 Assessments Encounter Date Diagnosis (ICD Code) Assessment Notes Treatment Notes Treatment Clinical Notes Section Notes 09/16/2024 Type 2 diabetes mellitus with diabetic polyneuropathy (ICD-10 - E11.42) 09/16/2024 Tinea unguium (ICD-10 - B35.1) 09/16/2024 Xerosis of skin (ICD-10 - L85.3) Plan Of Treatment Medication Medication Name Sig Start Date Stop Date Notes Ammonium Lactate 12 % 1 application Exte rnally to affected areas of dry skin to feet except for between the toes Twice a day for 30 days Pending Test Test Name Order Date 08801-MCOUISX NAIL, 6 OR MORE 09/16/2024 21206-SREO SKIN LESIONS, OVER 4 09/17/19 Next Appt Details Follow Up: prn, Reason: Provider Name:Antonio Giles , 12/23/2024 10:30:00 AM, [address] [place] [address], [phone], Procedure Notes * Category Sub-Category Detail Notes [...] T3, T4, T5, T6, T7, T8, T9 ), was performed exclusively by the physician of record to reduce/remove overall nail length, girth, thickness, subungual debris, and necrotic tissue, by manual and/or electrical means through the use of a nail nipper and/or dremel-type hand grinder, to a more viable healthy nail [...] to maintain effectiveness in symptomatic relief - 14894 Keratoma Treatment Parring or Cutting o f [...] risk. Therefore, the benign hyperkeratotic lesions, ( 6 ) in total, locations as stated and described in the exam ( SUB MTH (s), 1, B/L , SUB MTH (s), 5, B/L , SUB 5th MTBase, B/L ), were pared, and/or cut utilizing a sterile 15 blade, tissue nippers, and/or power dremel instrumentation by the physician of record - 76368 Progress Notes * Jose JACKSONOB:1950 ([age] yo F)Acc No.[id number]:09/16/2024 Progress Note Patient:Kriss HARRISON Provider:?Antonio Giles DPM :1950???Age:73 Y???Sex:Female D ate:09/16/2024 Address:[address] [place] [address], [place], [id number] Pcp:Angel Pablo Subjective: * Chief Complaints: * ???At Risk FootcareSkin prob leilani(s) * HPI: ???At Risk footcare:?Pt States Last PCP Visit:?Date?08/25/2024 ?Misc?States to have vein surgery to Left leg October 03.?Skin problems:?Nature:?dryness , scaling.?Location:?B/L .?Duration:?several days.?Course:?worse.?Treatments:? .? * ROS:?General/Constitutional:?Nausea?denies.?Vomiting?denies.?Hunger Thirst?denies.?Loss appetite?denies.?Chills?denies.?Fatigue?admits.?Fever?denies.?Night Sweats?admits.?Unexplained weight loss?denies.?Unexplained weight gain?denies.?HEENTM:?Dentures?denies.?Dizziness?denies.?Glasses/contacts?admits.?Retinopathy?den ies.?Blurred/double vision?denies.?TMJ?denies.?Discharge/drainage?denies.?Implants?denies.?Sore throat?denies.?Dental implants?denies.?Hard of hearing ?admits.?Difficulty chewing/swallowing/speaking?denies.?Nose bleeds?denies.?Sore mouth?denies.?Respiratory:?On O xygen?denies.?Pneumonia/pleurisy?denies.?Bronchitis?denies.?Emphysema?denies.?Co ughing?denies.?Cough blood?denies.?Shortness of breath?admits.?Wheezing?admits.?Cardiovascular:?Pacemaker?denies.?MVP?denies.?WPW?denies.?CHF?denies.?Heart attack?denies.?Septal defect?denies.?Rapid beat?denies.?Chest pain ?denies.?Atrial Fib.?denies.?Murmur/Palpitations?denies.?Gastrointestinal:?Hemorrhoids?denies.?Stomach/Abdominal pain?denies.?Dark blood stool?denies.?Irritable bowel ?denies.?Constipation?denies.?Diarrhea?denies.?Hematology:?Swelling?denies.?Clots?denies.?Varicose Veins?admits.?Bruising?admits, on aspirin.?Bleeding problem?admits, on anticoagulants.?Genitourinary:?Blood urine?denies.?Frequent/Painfu/urination/bladder control?denies.?Kidney stones?denies.?Infection (UTI)?denies.?Nephropathy?denies.?sex trans dis (STD)?denies.?Prostate?denies.?Musculoskeletal:?Hammertoes?admits.?Bunions?denies.?Back Pain?admits.?Muscle Cramps/ Resting?denies.?Muscle cramps / walking?admits.?Generalized aches and pains?admits.?Weakness?admits.?Integ.:?Farmer?denies.?Scars?denies.?Corns/calluses?admits.?Ingrown nails?admits.?Painful nails?denies.?Open Sores?denies.?Rashes?denies.?Neurologic:?Difficulty sleeping?admits.?Brain disorder?denies.?Numbness?admits.?Balance t rouble?admits.?Confusion?denies.?Fainting/blackouts?denies.?Tingling?admits.?Rich mors?denies.? * Medical History:? * Surgical History:?tonsillect fadia [...] pressure, stroke, diabetes.? * Social History:?Tobacco Use:?Tobacco use other than smoking?Are you an other tobacco user??No ?Tobacco Control (Standard)?Tobacco use:?Nonsmoker ?Additional Findings: Tobacco non-user?Current nonsmoker ???Drugs/Alcohol:?Drugs?Have you used drugs other than those for medical reasons in the past 12 months??No ???Miscellaneous:?Caffeine: yes. ?Children: yes, 3. ?Exercise: yes, housework,shooping. ?Marital status: . 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 ???Drug/Alcohol:?AUDIT-C (Standard)?Did you have a drink containing alcohol in the past year??No ?Points?0 ?Interpretation?Negative * Medications:?TakingAcetamino phen ER , Notes to Pharmacist: 500mgFerrous Sulfate ER Generlac 10 GM/15ML Solution 15 mL as needed Orally Once a day Albuterol Lisinopril 10 MG Tablet 1 tablet Orally Once a day Humira (2 Syringe) 40 MG/0.4ML Prefilled Syringe Kit INJECT 40 MG UNDER THE SKIN EVERY 2 WEEKS Subcutaneous , Notes to Pharmacist: 1 needle every 2 weeklamoTRIgine 25 MG Tablet Oral Lantus SoloStar 100 UNIT/ML Solution Pen-injector Subcutaneous Aspirin 81 MG Tablet Delayed Release 1 tablet Orally Once a day Atorvastatin Calcium 20 MG Tablet 1 tablet Orally Once a day Folic Acid 1 MG Tablet 1 tablet Orally Once a day Furosemide Gabapentin 600 MG Tablet 1 tablet Orally Once a day , Notes to Pharmacist: 1 morning 2 nightHumaLOG 100 UNIT/ML Solution as directed Subcutaneous , Notes to Pharmacist: 20 unitsMethotrexate Sodium 15 MG Tablet as directed Orally , Notes to Pharmacist: 8 tabs once a weekExtra Depth Orthopedic Shoes (1 Pair) with Customized Heat Molded Multidensity Innersoles (3 Pair) as directed Dx: NIDDM/Polyneuropathy (E11.42), Hammertoe Foot Deformity (M20.41,M20.42), Preulcerative Skin Lesion(s) (L85.1 Taking Acetaminophen ER , Notes to Pharmacist: 500mgTaking Ferrous Sulfate ER Taking Generlac 10 GM/15ML Solution 15 mL as needed Orally Once a day Taking Albuterol Taking Lisinopril 10 MG Tablet 1 tablet Orally Once a day Taking Humira (2 Syringe) 40 MG/0.4ML Prefilled Syringe Kit INJECT 40 MG UNDER THE SKIN EVERY 2 WEEKS Subcutaneous , Notes to Pharmacist: 1 needle every 2 weekTaking lamoTRIgine 25 MG Tablet Oral Taking Lantus SoloStar 100 UNIT/ML Solution Pen-injector Subcutaneous Taking Aspirin 81 MG Tablet Delayed Release 1 tablet Orally Once a day Taking Atorvastatin Calcium 20 MG Tablet 1 tablet Orally Once a day Taking Folic Acid 1 MG Tablet 1 tablet Orally Once a day Taking Furosemide Taking Gabapentin 600 MG Tablet 1 tablet Orally Once a day , Notes to Pharmacist: 1 morning 2 nightTaking HumaLOG 100 UNIT/ML Solution as directed Subcutaneous , Notes to Pharmacist: 20 unitsTaking Methotrexate Sodium 15 MG Tablet as directed Orally , Notes to Pharmacist: 8 tabs once a weekTaking Extra Depth Orthopedic Shoes (1 Pair) with Customized Heat Molded Multidensity Innersoles (3 Pair) as directed Dx: NIDDM/Polyneuropathy (E11.42), Hammertoe Foot Deformity (M20.41,M20.42), Preulcerative Skin Lesion(s) (L85.1 UnknownoxyBUTYnin Vitamin D Zoledronic Acid Famotidine 40 MG Tablet 1 tablet at bedtime as needed Orally Once a day Fluticasone Propionate 50 MCG/ACT Suspension 1 spray in each nostril Nasally Once a day Hydroxychloroquine Sulfate 200 MG Tablet as directed [...] Gel 1 application Externally Once a day ProAir HFA 108 (90 Base) MCG/ACT Aerosol Solution 2 puff as needed Inhalation every 6 hours , Notes to Pharmacist: PRNSucralfate Clopidogrel Bisulfate 75 MG Tablet 1 tablet Orally Once a day Omeprazole 40 MG Capsule Delayed Release 1 capsule 30 minutes before morning meal Orally Once a day Medication List reviewed and reconciled with the patientUnknown oxyBUTYnin Unknown Vitamin D Unknown Zoledronic Acid Unknown Famotidine 40 MG Tablet 1 tablet at bedtime as needed Orally Once a day Unknown Fluticasone Propionate 50 MCG/ACT Suspension 1 spray in each nostril Nasally Once a day Unknown Hydroxychloroquine Sulfate 200 MG Tablet as directed [...] 1 application Externally Once a day Unknown ProAir HFA 108 (90 Base) MCG/ACT Aerosol Solution 2 puff as needed Inhalation every 6 hours , Notes to Pharmacist: PRNUnknown Sucralfate Unknown Clopidogrel Bisulfate 75 MG Tablet 1 tablet Orally Once a day Unknown Omeprazole 40 MG Capsule Delayed Release 1 capsule 30 minutes before morning meal Orally Once a day Medication List reviewed and reconciled with the patient * Allergies:?Bactrim: hivesCod eine: stomach upsetDoxycyclineDuloxetineCymbaltayes[Allergies Verified] Objective: * Vitals:?Ht:2rl12qi, Wt:146, BMI:30.51, Shoe size:7, BP:109/50mm Hg, BS:77, Ht- cm: 147.32 cm, Wt-k.23 kg. * ???Past Orders: ???Lab:HEMOGLOBIN A1C (GLYCO HEMOGLOBIN) (Order Date - 09/16/2024) (Collection Date & Time - 09/16/2024 11:17 AM) ? Value Reference Range ?HEMOGLOBIN A1C % (HH) 5.4 * Examination: ???Ophthalmology Referral: ?DIABETES EYE EXAM?Procedure Performed:?Yes ?Date of Exam Performed?09/05/2024 ?Diabetic Retinopathy Screening:?Yes ?Retinal Screening Performed:?Yes ?Findings of Diabetic Eye Exam:?no retinopathy?Neurological: ?SENSORY:? Neurological exam demonstrates, reduced light touch [...] 5, B/L , SUB 5th MTBase, B/L , Skin shows sign(s) of, dryness, scaling, in a stocking fashion, no fissure(s) present, B/L.? Assessment: * Assessment: 1.?Type 2 diabetes mellitus with diabetic polyneuropathy - E11.42 (Primary)???2.?Tinea unguium - B35.1???3.?Xerosis of skin - L85.3???Specify :Acute problem, Uncomplicated (3),Rx Management (4)??? Plan: * Treatment: 2.?Xerosis of skin? Start Ammonium Lactate Cream, 12 %, 1 application, Externally to affected areas of dry skin to feet except for between the toes, Twice a day, 30 days, 280, Refills 3.?? * Procedures:?Debride Nail 6-10:?Nail debridement?Due to the clinical pathology outlined in the exam findings, performance of this nail treatment is medically necessary as its management by an unskilled/untrained nonprofessional would put this patients foot and overall health at risk. Therefore, debridement to affected nail(s), as described in exam ( TA, T1, T2, T3, T4, T5, T6, T7, T8, T9 ), was performed exclusively by the physician of record to reduce/remove overall nail length, girth, thickness, subungual debris, and necrotic tissue, by manual and/or electrical means through the use of a nail nipper and/or dremel-type hand grinder, to a more viable healthy nail [...] to maintain effectiveness in symptomatic relief - 64755.?Keratoma Treatment:?Parring or Cutting of Benign Hyperkeratotic Lesion(s)?(-57) More than 4 Lesions - Due to the at risk nature of the patients medical condition as documented in the exam findings, performance of this keratoderma treatment is medically necessary as its management by an unskilled/untrained nonprofessional would put this patients foot and overall health at risk. Therefore, the benign hyperkeratotic lesions, ( 6 ) in total, locations as stated and described in the exam ( SUB MTH (s), 1, B/L , SUB MTH (s), 5, B/L , SUB 5th MTBase, B/L ), were pared, and/or cut utilizing a sterile 15 blade, tissue nippers, and/or power dremel instrumentation by the physician of record - 26381.? * Procedure Codes:?96866 DEBRI DE NAIL, 6 OR MORE, Modifiers: XS 99765 TRIM SKIN LESIONS, OVER 4, Modifiers: XS [...] have encouraged the patient to call the office.?Xerosis:?The patient was counseled on the diagnosis, potential etiologies, and treatment options for their skin condition. We discussed the risks and benefits of each option from performing no treatment, to utilizing OTC topical skin creams/ointments, to utilizing prescription topical creams/ointments, to utilizing customized compounded topical medications and use of nocturnal occlusion with any/all previously detailed therapies. We discussed the advantages and disadvantages of each possible treatment and importance for adherence to all the recommended therapies for optimum success and avoid potential complications such as open sore/infection/possible hospitalization. We discussed the potential effectiveness of each topical preparation as well as each ones possible side effects and/or patient medication interactions. Patient questions re: use, dosage, successful outcomes, and application consistency were reviewed and the patient verbalized that all answers were clearly understood. The patient has decided to apply Rx skin creams to their feet save the interspaces while paying special attention to the heels. Such was sent to their pharmacy at the time of visit.? ??Screening/Special Tests:?Fall Risk?Screening:?No falls in the past year ?FALLS: Screening for Future Fall Risk?Have you had any falls with injury in the past year??No * Follow Up:?prn * Images: * Sign off status: Completed true * Provider:?Antonio Giles DPM Date:?2024 Generated for Shanique alatorre/Lloyd/eTransmitting on:?10/03/2024 10:42 AM EDT History and Physical Notes * HPI (History of Present Illness) Category Sub-Category Detail Notes Category Not es Skin problems Nature: dryness , scaling Location: B/L Duration: several days Course: worse Treatments: At Risk footcare Pt States Last PCP Visit: Date: [facility] States to have vein surgery to Left leg October 03 Examination Category Sub-Category Detail Notes Category Not [...] 5, B/L , SUB 5th MTBase, B/L , Skin shows sign(s) of, dryness, scaling, in a stocking fashion, no fissure(s) present, B/L Ophthalmology Referral DIABETES EYE EXAM Procedu re Performed:: Yes ?Date of Exam Performed: 09/05/2024 Diabetic Retinopathy Screening:: Yes Retinal Screening Performed:: Yes Findings of Diabetic Eye Exam:: no retin opathy Nails NAILS are: Elongated, overg rown, dystrophic, lytic, greater than 3mm thick, discolored and friable with crumbly malodorous subungual debris, TA, T1, T2, T3, T4, T5, T6, T7, T8, T9
--- NOTE | 2024-10-03 11:04 | MHC.OFFVIS ---
Intake Visit Reasons: Left GSV RFA Accompanied by: Self / Same As Patient Allergies duloxetine Allergy (Severe, Verified 10/03/24 11:05) LOOPY codeine [CODEINE] Allergy (Intermediate, Verified 10/03/24 11:05) GI UPSET doxycycline [DOXYCYCLINE] Allergy (Intermediate, Verified 10/03/24 11:05) RASH Sulfa (Sulfonamide Antibiotics) [SULFA (SULFONAMIDE ANTIBIOTICS)] Allergy (Intermediate, Verified 10/03/24 11:05) Hives [facility] Medical History Osteoarthritis of hands, bilateral Osteopenia Rheumatoid arthritis with negative rheumatoid factor Encounter for ongoing osteoporosis therapy, bisphosphonates skilled nursing methotrexate user Edema of lower extremity present on examination Petechiae skilled nursing use of drug Irritable bowel syndrome with diarrhea Rheumatoid arthritis Pacemaker TIA (transient ischemic attack) Dysphagia Spinal stenosis COVID COVID-19 Laryngopharyngeal reflux (LPR) Asthma Rotator cuff tendinitis Post-menopausal Polyarthralgia Dyspnea on exertion Allergic rhinitis Bronchitis Asthma exacerbation Cough variant asthma DJD (degenerative joint disease) Decreased hearing GERD (gastroesophageal reflux disease) Type 2 diabetes 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s Surgical History S/P placement of cardiac pacemaker History of esophagogastroduodenoscopy (EGD) History of colonoscopy (~09/05/21) Hx of cholecystectomy Hx of tonsillectomy Hx of hysterectomy Family History Father CVD (cardiovascular disease) Diabetes Mother Diabetes Sister No problems noted. Other Substance use disorder Social History Household Members: Family and None Housing: House Are you a primary doggy daycare activities director to a significant other at home: No Do you presently have visiting nurse or other home services: No Alcohol intake: former Comment: WITHIN LAST MONTH Patient Tobacco Use Status: Never used Tobacco e-Cigarette/Vaping Use: Never Used Second Hand Smoke Exposure: No Advance Directives Date on File: 08/04/22 service: No Current occupational status: retired Cognitive needs: Yes (walker) Hearing needs: Yes (hearing aide) Vision needs: Yes (glasses) Office Procedures Vascular Office Procedure Details Details: Diagnosis: Varicose veins with inflammation of left leg Procedure: Endovenous radiofrequency ablation of the left great saphenous vein(s) of the lower extremity. Anesthesia: Local infiltration 5 cc, Tumescent 200 cc. Estimated Blood Loss: minimal Specimen: Varicose veins The patient was transferred to the procedure suite and the insufficient saphenous vein was mapped by ultrasound and diagrammed on the overlying skin. The depth and diameter of the vein(s) to be treated was documented. The varicose tributary veins and suitable access sites were identified and mapped as well. The patient was then positioned supine on the procedure table. The affected limb was prepped and draped in the usual sterile fashion. The RF catheter was placed on the sterile field, flushed and wiped down, prepared, and connected by a sterile cable. The patient was placed in supine position and local anesthesia was instilled in the skin overlying the access site. A skin incision was made overlying the identified and mapped great saphenous vein entry site. The vein was accessed using ultrasound guidance and the Seldinger technique, a guide wire was introduced through the needle, which was then exchanged over the guide wire for a 6F sheath, which was secured in place. The guide wire was removed and the sheath was flushed. The RF catheter was placed into the vein through the sheath and preferentially, imaging was used to place the catheter tip just inferior to the superficial epigastric vein to preserve normal physiological flow in that vein. Additionally, it was confirmed by ultrasound guidance that the catheter tip was also placed a minimum of 1.5cm distal to the saphenofemoral junction. After the RF catheter position was verified by ultrasound, tumescent anesthesia was infiltrated, under ultrasound guidance, precisely into the perivenous compartment along the entire length of vein from the entry site to the saphenofemoral junction until a halo of fluid was noted around the vein. The patient was then placed in supine position to further exsanguinate the superficial venous system. After RF catheter position was again confirmed with ultrasound imaging, and under direct external compression along the length of the heating element, RF energy was applied. The vein was segmentally ablated by heating a 8 cm segment and then indexing the catheter forward by 7.5 cm until the treatment length is completed. Device temperature was maintained at 120 plus or minus 5 degrees C with an initial power level of 40W dropping to below 20W for each treatment. Total vein length treated 9 cm Total cycles of RF 3. Repeat ultrasound of the saphenous vein was performed, confirming successful treatment. The catheter and sheath were withdrawn and hemostasis established with direct pressure. After assuring hemostasis, the skin incision over the saphenous vein was closed with a bandage and a compression wrap, and/ or graduated compression stocking was applied from the level of the foot to the most proximal level of the thigh. 99203 - Endovenous RF, 1st Vein All charges added?: Procedure code (CPT) selection complete Assessment & Plan Assessment & Plan (1) Varicose veins of left lower extremity with inflammation: Comment: 10/03/2024 - left great saphenous vein radiofrequency ablation Code(s): I83.12 - Varicose veins of left lower extremity with inflammation Category: Medical Plan: See op note Coding Level of Care Code Procedure Only Diagnoses Varicose veins of left lower extremity with inflammation I83.12 CPT Codes Details - Vascular 1: 54450 - Endovenous RF, 1st Vein ([id number])
== END 2024-10-03 12:22 | disposition home or self-care (01) ==
LOC: HO.HVS 10:03
PROVIDERS: PCP Internal Medicine; Visit Provider Surgery Vascular Surgery
DX: I83.12 Varicose veins of left lower extremity with inflammation (principal)
CPT/HCPCS: 36475

== ENCOUNTER → 2024-10-03 10:03 | Outpatient (BNVA) | payer MEDICARE, SELFPAY | PROVIDERS: PCP Internal Medicine; Visit Provider Surgery Vascular Surgery | DX: I83.12 Varicose veins of left lower extremity with inflammation (principal) | CPT/HCPCS: 36475; J2003; J2004 ==

== ENCOUNTER 2024-10-16 09:49 | Outpatient (AMB) | payer MEDICARE, SELFPAY ==
--- NOTE | 2024-10-16 09:53 | A.OFFVIS_ITS ---
Intake Visit Reasons: 2 week follow up Left GSV RFA 10/03/24 Intake Note: Patient presents for left leg rfa follow up. Incision is still not healed she states it is a little sore . Accompanied by: Self / Same As Patient Allergies duloxetine Allergy (Severe, Verified 10/16/24 09:54) LOOPY codeine [CODEINE] Allergy (Intermediate, Verified 10/16/24 09:54) GI UPSET doxycycline [DOXYCYCLINE] Allergy (Intermediate, Verified 10/16/24 09:54) RASH Sulfa (Sulfonamide Antibiotics) [SULFA (SULFONAMIDE ANTIBIOTICS)] Allergy (Intermediate, Verified 10/16/24 09:54) Hives HPI HPI 2 week follow up Left GSV RFA 10/03/24: Details: The patient is a 73-year-old female presenting for follow-up after a radiofrequency ablation procedure on the left great saphenous vein. She has noted an improvement in symptoms such as leg swelling and heaviness since the procedure was performed. Swelling is no longer present, and she has not observed any significant leg edema. She reports occasional tenderness and a warm sensation under the skin, typical of the recovery phase, along with occasional itching in the treated area. She is proactive in managing her activities to av oid aggravating symptoms. The patient expressed concern due to her family history of vascular issues but is reassured by her current test results showing no need for further intervention. 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 Irritable bowel syndrome with diarrhea Rheumatoid arthritis Pacemaker TIA (transient ischemic attack) Dysphagia Spinal stenosis COVID COVID-19 Laryngopharyngeal reflux (LPR) Asthma Rotator cuff tendinitis Post-menopausal Polyarthralgia Dyspnea on exertion Allergic rhinitis Bronchitis Asthma exacerbation Cough variant asthma DJD (degenerative joint disease) Decreased hearing GERD (gastroesophageal reflux disease) Type 2 diabetes 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s Surgical History S/P placement of cardiac pacemaker History of esophagogastroduodenoscopy (EGD) History of colonoscopy (~09/05/21) Hx of cholecystectomy Hx of tonsillectomy Hx of hysterectomy Family History Father CVD (cardiovascular disease) Diabetes Mother Diabetes Sister No problems noted. Other Substance use disorder Social History Household Members: Family and None Housing: House Are you a primary attending ambulatory care to a significant other at home: No Do you presently have visiting nurse or other home services: No Alcohol intake: former Comment: WITHIN LAST MONTH Patient Tobacco Use Status: Never used Tobacco e-Cigarette/Vaping Use: Never Used Second Hand Smoke Exposure: No Advance Directives Date on File: 08/04/22 service: No Current occupational status: retired Cognitive needs: Yes (walker) Hearing needs: Yes (hearing aide) Vision needs: Yes (glasses) Review of Systems Const All systems reviewed & are unremarkable except as noted in HPI and below Reports no additional complaints ENT Reports Normal hearing present Card Denies chest pain, Denies chest pain at rest, Denies chest pain with activity and Denies pedal edema Resp Denies cough GI Denies abdominal pain Musc Denies abnormal gait, Denies muscle cramps and Denies radiating pain into limb Skin/Breast Denies skin ulcer and Denies wounds Neuro Reports Normal hearing present and Denies abnormal gait Psych Reports no additional complaints Physical Exam Const General: cooperative, healthy appearing and comfortable Orientation/consciousness: oriented to person, oriented to place and oriented to time HEENT Head: Yes normal to inspection Neck Neck: Yes normal visual inspection Carotids: no bruits Chest Chest palpation & inspection: normal inspection of the chest Resp Effort & Inspection: normal respiratory effort and able to speak in complete sentences Auscultation: clear to auscultation bilaterally, no crackles, no rales, no rhonchi and no wheezes Cardio Rate: regular rate Rhythm: regular rhythm Heart sounds: S1 normal heart sound present and S2 normal heart sound present Bruits: no carotid bruits Peripheral pulses: Peripheral pulses 2+ throughout GI Inspection: Yes normal to inspection Skin Wounds: no wounds Hair: normal Neuro General: oriented to person, oriented to place and oriented to time Cranial nerves: Yes CN's II-XII intact bilaterally and Yes Normal hearing present Cognition (Neuro): normal cognition Motor exam (neuro): 5/5 motor strength present throughout Extrem Other: venous exam: No significant superficial varicosities or spider telang iectasias, minimal edema General: No clubbing, No cyanosis and No edema Psych Appearance: grossly normal Mental Status: mental status grossly normal Speech and movement: Normal speech and movement present Assessment & Plan Assessment & Plan (1) Varicose veins of left lower extremity with inflammation: Comment: 10/03/2024 - left great saphenous vein radiofrequency ablation Code(s): I83.12 - Varicose veins of left lower extremity with inflammation Category: Medical Plan: I reassured the patient that her leg's recovery is on track and that no further procedures are necessary at this time. We discussed the use of warm compresses and NSAIDs to manage minor postoperative symptoms such as tenderness and inflammation. I clarified that itching is a common occurrence post-procedure and should resolve over time. We reviewed her family history of vascular issues, but with her current results being normal, no immediate concerns were noted. The patient was advised on the importance of monitoring symptoms and managing daily activities to avoid aggravation. I confirmed patient understanding and agreement with the discussed plan. Patient will follow up with us on an as-needed basis. Plan Patient was informed and verbally consented to the use of an ambient scribe for clinic note documentation during this visit. Patient Instructions: - Use warm compresses or a heating pad for leg discomfort. - Take Advil or Motrin as needed for tenderness. - Itching is common and should improve with time; may take antihistamines if necessary. - Observe symptoms and avoid overexertion. - Follow-up as scheduled. Coding Level of Care Code Est Pt Level 4 (25851) Diagnoses Varicose veins of left lower extremity with inflammation I83.12
--- OUTSIDE RECORDS SUMMARY | 2024-10-16 11:00 | XMS_ITS ---
Author Organization [facility] Address [address] [place] [address] Care Team Providers Care Tea Room Manager Name Role Phone Angel Pablo Primary Care Provider [phone] Antonio Giles Unavailable [phone] REASON FOR VISIT Foot swelling Encounters Encounter Location Date Provider Diagnosis [address] [address] 09/26/2024 Antonio Giles Plan Of Treatment Next Appt Details Provider Name:Antonio Giles , 12/23/2024 10:30:00 AM, [address] [place], [address], Progress Notes * Jose JACKSONOB:1950 ([age] yo F)Acc No.[id number]:09/26/2024 Patient:?Kriss JACKSON :1950???Age:73 Y???Sex:Female Address:[address] [place] [address] [place], [address] * true * Date:? Generated for Printi ng/Famariang/eTransmitting on:?10/16/2024 11:00 AM EDT
--- OUTSIDE RECORDS SUMMARY | 2024-10-16 11:01 | XMS_ITS | Data Portability ---
Author Organization [facility], [facility] Address [address] [place] [address] Assessment Encounter Date Assessment Date Assessment LastModified by Organization Details LastModified Time 04/30/2018 04/30/2018 Blood pressure i s at goal with which is below 140/90 for a diabetic. She is looking [facility] alternative activities [facility] jail. Her A1c of 5.5% shows excellent diabetes control (goal below 7.5-8%). She will continue with [facility] in diabetes education for that. [...] to what she tells us from her race steward, and she will try and get us those records. 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 She will follow-up in [...] bp more regularly 3) Patient regularly sees race steward who will check A1C and adjust rx [...] with new provider (will be changing to [facility] for convenience) 9) RA stable; may [...] Lab TSH, serum or plasma 2017 018 [facility], [address] [place] [address], [address], 8 16:26:11 CBC 2017 018 [facility], [address] [place], [address], 8 14:43:05 Referral None recorded. Procedures None recorded. Surgeries None recorded. Imaging None recorded. Medication Orders cefpodoxim e 200 mg tablet 2018 019 [id number], [address], [place], [id number], 9 12:53:28 atorvastat in 20 mg tablet 2018 019 [facility] #[id number], [address], [place], [id number], 9 16:34:01 lidocaine 5 % topical patch 2018 019 [facility] #[id number], [address], [place], [id number], 9 13:32:45 omeprazole 20 mg capsule,de layed release 2018 019 [facility] #[id number], [address], [place], [id number], 9 16:34:01 lisinopril 10 mg-hydroch lorothiazi de 12.5 mg tablet 2018 019 [facility] #[id number], [address], [place], [id number], 9 16:34:01 cefpodoxim e 200 mg tablet 2018 019 [facility] #[id number], [address], [place], [id number], 9 14:47:44 Patient TargetsNo targets recorded. Patient Instructions Encounter Date Encounter Id Patient Instructions Last Modified By Organization Details Last Modified Time 04/30/2018 [id number] high cholesterol lifestyle changes nikki Not available 04/30/2018 11:19:19 high blood pressure: care instructions nikki Not available 04/30/2018 11:19:19 learning about high blood pressure nikki Not available 04/30/2018 11:19:19 asthma handout / teaching nikki Not available 04/30/2018 11:19:19 asthma action plan nikki Not availab le 04/30/2018 11:19:[address] an ages 0-11 yrs taiwanese nikki Not available 04/30/2018 11:19:19 CCM: The provide r and patient discussed the Chronic Care Management program, including the services provided, and any fees associated with them. michele Not available 04/30/2018 11:32:47 08/29/2018 [id number] My Health To Do List Specific Analgesia [...] medication. spise Not available 08/29/2018 11:18:25 12/31/2018 [id number] After a discussi on of treatment options, [...] Goal: <7% in Patie nts with Diabe sartah Not Available [address], [address], 04/26/2018 15:36:01 04/26/20 18 04/26/2018 HbA1c (hemo globi n A1c), blood estimated average glucose 111.2 mg/dL Not Available [address], [address], 04/26/2018 15:36:01 04/26/20 18 04/26/2018 micro album in, urine microalbumin 39.3 mg/L 1.3-20 .0 high Not Available [address], [address], 04/26/2018 15:37:51 04/26/20 18 04/26/2018 micro album in, urine creatinine urine 193.6 mg/dL 30.0-1 25.0 high Not Available [address], [address], 04/26/2018 15:37:51 04/26/20 18 04/26/2018 micro album in, urine microalb/cre at ratio 20.3 mg/g_ creat 0.0-29 .0 Not Available [address], [address], 04/26/2018 15:37:51 04/26/20 18 04/26/2018 BMP, serum or plasm a glucose 74 mg/dL 70-100 Not Available [address], [address], 04/26/2018 16:07:42 04/26/20 18 04/26/2018 BMP, serum or plasm a BUN 16 mg/dL 7-18 Not Available [address], [address], 04/26/2018 16:07:42 04/26/20 18 04/26/2018 BMP, serum or plasm a creatinine 1.1 mg/dL 0.8-1. 3 Not Available [address], [address], 04/26/2018 16:07:42 04/26/20 18 04/26/2018 BMP, serum or plasm a B/C 14.5 ratio Not Available [address], [address], 04/26/2018 16:07:42 04/26/20 18 04/26/2018 BMP, serum or plasm a GFR -non 55.5 mL/mi n Recom zhane d GFR by the Natio nal Kidne y Found ation >60 mL/mi n/1.7 3m2 - Patricia l <60 mL/mi n/1.7 3m2 - Chron ic Kidne y Disea se <15 mL/mi n/1.7 3m2 - Kidne y Failu re Not Available [address], [address], 04/26/2018 16:07:42 04/26/20 18 04/26/2018 BMP, serum or plasm a GFR - if 63.8 mL/mi n For Afric an Ameri can patie nts: Resul ts Multi plied by 1.21 Not Available [address], [address], 04/26/2018 16:07:42 04/26/20 18 04/26/2018 BMP, serum or plasm a sodium 143 mmol/ L 136-14 5 Not Available [address], [address], 04/26/2018 16:07:42 04/26/20 18 04/26/2018 BMP, serum or plasm a potassium 4.6 mmol/ L 3.5-5. 1 Not Available [address], [address], 04/26/2018 16:07:42 04/26/20 18 04/26/2018 BMP, serum or plasm a chloride 105 mmol/ L 96-107 Not Available [address], [address], 04/26/2018 16:07:42 04/26/20 18 04/26/2018 BMP, serum or plasm a anion gap 11.1 5.0-15 .0 Not Available [address], [address], 04/26/2018 16:07:42 04/26/20 18 04/26/2018 BMP, serum or plasm a CO2 27 mmol/ L 21-32 Not Available [address], [address], 04/26/2018 16:07:42 04/26/20 18 04/26/2018 BMP, serum or plasm a calcium 9.2 mg/dL 8.5-10 .3 Not Available [address], [address], 04/26/2018 16:07:42 04/26/20 18 04/26/2018 lipid panel , serum cholesterol 106 mg/dL <200 mg/dl Avelino able 200-2 39 mg/dl Borde rline High >240 mg/dl High Not Available [address], [address], 04/26/2018 16:07:44 04/26/20 18 04/26/2018 lipid panel , serum triglyceride s 184 mg/dL <150 mg/dL Patricia l 150-1 99 mg/dL Borde rline High 200-4 99 mg/dL High >500 mg/dL Very High Not Available [address], [address], 04/26/2018 16:07:44 04/26/20 18 04/26/2018 lipid panel , serum direct HDL 39 mg/dL <40 mg/dl - Major Risk for CHD >60 mg/dl - Negat jeannette Risk for CHD Not Available [address], [address], 04/26/2018 16:07:44 04/26/20 18 04/26/2018 LDL, calcu [...] r is not martha baker. Not Available [address], [address], 04/26/2018 16:07:45 04/26/20 18 04/26/2018 AST/S GOT (aspa rtate amino trans feras e), serum or plasm a AST 18 U/L 15-37 Not Available [address], [address], 04/26/2018 16:25:23 04/26/20 18 04/26/2018 ALT (karen ine amino trans feras e), serum or plasm a ALT 26 U/L 30-65 low Not Available [address], [address], 04/26/2018 16:25:24 04/30/20 18 04/30/2018 CBC WBC 8.9 K/? ? ?L 4.0-10 .0 Not Available [address], [address], 04/30/2018 14:43:04 04/30/20 18 04/30/2018 CBC RBC 4.13 M/? ? ?L 3.93-5 .22 Not Available [address], [address], 04/30/2018 14:43:04 04/30/20 18 04/30/2018 CBC HGB 11.9 g/dL 11.2-1 5.7 Not Available [address], [address], 04/30/2018 14:43:04 04/30/20 18 04/30/2018 CBC HCT 35.9 % 34.1-4 4.9 Not Available [address], [address], 04/30/2018 14:43:04 04/30/20 18 04/30/2018 CBC MCV 86.9 ? ? ?L 79.4-9 4.8 Not Available [address], [address], 04/30/2018 14:43:04 04/30/20 18 04/30/2018 CBC MCH 28.8 pg 25.6-3 2.2 Not Available [address], [address], 04/30/2018 14:43:04 04/30/20 18 04/30/2018 CBC MCHC 33.1 g/dL 32.2-3 5.5 Not Available [address], [address], 04/30/2018 14:43:04 04/30/20 18 04/30/2018 CBC plt 290.0 K/? ? ?L 182.0- 369.0 Not Available [address], [address], 04/30/2018 14:43:04 04/30/20 18 04/30/2018 CBC MPV 11.7 9.4-12 .3 Not Available [address], [address], 04/30/2018 14:43:04 04/30/20 18 04/30/2018 CBC neut% 78.8 % 34.0-7 1.1 high Not Available [address], [address], 04/30/2018 14:43:04 04/30/20 18 04/30/2018 CBC neut# 7.0 1.6-6. 1 high Not Available [address], [address], 04/30/2018 14:43:04 04/30/20 18 04/30/2018 CBC lymph % 14.1 % 19.3-5 1.7 low Not Available [address], [address], 04/30/2018 14:43:04 04/30/20 18 04/30/2018 CBC lymph # 1.3 K/? ? ?L 1.2-3. 7 Not Available [address], [address], 04/30/2018 14:43:04 04/30/20 18 04/30/2018 CBC mono% 5.2 % 4.7-12 .5 Not Available [address], [address], 04/30/2018 14:43:04 04/30/20 18 04/30/2018 CBC mono# 0.5 0.2-0. 6 Not Available [address], [address], 04/30/2018 14:43:04 04/30/20 18 04/30/2018 CBC eo% 1.4 % 0.7-5. 8 Not Available [address], [address], 04/30/2018 14:43:04 04/30/20 18 04/30/2018 CBC eo# 0.1 0.0-0. 4 Not Available [address], [address], 04/30/2018 14:43:04 04/30/20 18 04/30/2018 CBC baso% 0.5 % 0.1-1. 2 Not Available [address], [address], 04/30/2018 14:43:04 04/30/20 18 04/30/2018 CBC baso# 0.0 0.0-0. 1 Not Available [address], [address], 04/30/2018 14:43:04 04/30/20 18 04/30/2018 CBC RDW-CV 14.0 % 11.7-1 4.4 Not Available [address], [address], 04/30/2018 14:43:04 04/30/20 18 04/30/2018 TSH, serum or plasm a TSH 2.29 uIU/m L 0.50-6 .00 The Ameri can Colle ge of Endoc rinol ogy and Ameri can Thyro id Assoc iatio n recom mend goal TSH value s betwe en 0.4-4 .0 mIU/m L. Not Available [address], [address], 04/30/2018 16:26:11 06/12/20 18 06/12/2018 CBC w/ auto diff WBC 13.71 K/uL 3.40-1 1.20 high Not Available [facility] [address] [place] [address], [address], 06/12/2018 14:19:14 06/12/20 18 06/12/2018 CBC w/ auto diff RBC 4.19 M/uL 3.80-4 .80 Not Available [facility] [address] [place] [address], [address], 06/12/2018 14:19:14 06/12/20 18 06/12/2018 CBC w/ auto diff HGB 12.0 g/dL 12.0-1 5.0 Not Available [facility] [address] [place] [address], [address], 06/12/2018 14:19:14 06/12/20 18 06/12/2018 CBC w/ auto diff HCT 35.1 % 36.0-4 6.0 low Not Available [facility] [address] [place] [address], [address], 06/12/2018 14:19:14 06/12/20 18 06/12/2018 CBC w/ auto diff plt 285 K/uL 130-40 0 Not Available [facility] [address] [place], [address], 06/12/2018 14:19:14 06/12/20 18 06/12/2018 CBC w/ auto diff MCV 83.8 fL 79.0-9 8.0 Not Available [facility] [address] [place], [address], 06/12/2018 14:19:14 06/12/20 18 06/12/2018 CBC w/ auto diff MCH 28.6 pg 27.0-3 4.8 Not Available [facility] [address] [place], [address], 06/12/2018 14:19:14 06/12/20 18 06/12/2018 CBC w/ auto diff MCHC 34.2 g/dL 31.5-3 6.0 Not Available [facility] [address] [place], [address], 06/12/2018 14:19:14 06/12/20 18 06/12/2018 CBC w/ auto diff RDW 13.2 % 10.8-1 4.6 Not Available [facility] [address] [place], [address], 06/12/2018 14:19:14 06/12/20 18 06/12/2018 CBC w/ auto diff MPV 11.6 fL 9.4-12 .4 Not Available [facility] [address] [place], [address], 06/12/2018 14:19:14 06/12/20 18 06/12/2018 CBC w/ auto diff NRBC 0.00 /100_ WBCs 0.00 Not Available [facility] [address] [place], [address], 06/12/2018 14:19:14 06/12/20 18 06/12/2018 CBC w/ auto diff absolute NRBC 0.00 K/uL 0.00 Not Available [facility] [address] [place], [address], 06/12/2018 14:19:14 06/12/20 18 06/12/2018 CBC w/ auto diff diff method Auto Not Available [facility] [address] [place], [address], 06/12/2018 14:19:14 06/12/20 18 06/12/2018 CBC w/ auto diff neuts 84.8 % 45.30- 77.70 high Not Available [facility] [address] [place] [address], [address], 06/12/2018 14:19:14 06/12/20 18 06/12/2018 CBC w/ auto diff lymphs 9.0 % 12.30- 39.70 low Not Available [facility] [address] [place], [address], 06/12/2018 14:19:14 06/12/20 18 06/12/2018 CBC w/ auto diff monos 4.2 % 4.10-1 2.80 Not Available [facility] [address] [place], [address], 06/12/2018 14:19:14 06/12/20 18 06/12/2018 CBC w/ auto diff eos 0.9 % 0-7.2 Not Available [facility] [address] [place], [address], 06/12/2018 14:19:14 06/12/20 18 06/12/2018 CBC w/ auto diff basos 0.7 % 0-2.80 Not Available [facility] [address] [place], [address], 06/12/2018 14:19:14 06/12/20 18 06/12/2018 CBC w/ auto diff granulocytes , immature (%) 0.4 % 0.0-0. 9 Not Available [facility] [address] [place], [address], 06/12/2018 14:19:14 06/12/20 18 06/12/2018 CBC w/ auto diff absolute neuts 11.63 K/uL 1.40-7 .70 high Not Available [facility] [address] [place], [address], 06/12/2018 14:19:14 06/12/20 18 06/12/2018 CBC w/ auto diff absolute lymphs 1.24 K/uL 0.60-3 .20 Not Available [facility] [address] [place] [address], [address], 06/12/2018 14:19:14 06/12/20 18 06/12/2018 CBC w/ auto diff absolute monos 0.57 K/uL 0.11-0 .59 Not Available [facility] [address] [place] [address], [address], 06/12/2018 14:19:14 06/12/20 18 06/12/2018 CBC w/ auto diff absolute eos 0.13 K/uL 0.01-0 .50 Not Available [facility] [address] [place] [address], [address], 06/12/2018 14:19:14 06/12/20 18 06/12/2018 CBC w/ auto diff absolute basos 0.09 K/uL 0.00-0 .08 high Not Available [facility] [address] [place] [address], [address], 06/12/2018 14:19:14 06/12/20 18 06/12/2018 CBC w/ auto diff granulocytes , immature 0.05 K/uL 0.00-0 .05 Not Available [facility] [address] [place], [address], 06/12/2018 14:19:14 06/12/20 18 06/12/2018 CMP, serum or plasm a sodium 139 mmol/ L 133-14 6 Not Available [facility] [address] [place], [address], 06/12/2018 15:13:28 06/12/20 18 06/12/2018 CMP, serum or plasm a potassium 4.6 mmol/ L 3.3-5. 1 Not Available [facility] [address] [place] [address], [address], 06/12/2018 15:13:28 06/12/20 18 06/12/2018 CMP, serum or plasm a chloride 99 mmol/ L 96-108 Not Available [facility] [address] [place] [address], [address], 06/12/2018 15:13:28 06/12/20 18 06/12/2018 CMP, serum or plasm a CO2 28 mmol/ L 21-35 Not Available [facility] [address] [place], [address], 06/12/2018 15:13:28 06/12/20 18 06/12/2018 CMP, serum or plasm a BUN 22 mg/dL 6-19 high Not Available [facility] [address] [place], [address], 06/12/2018 15:13:28 06/12/20 18 06/12/2018 CMP, serum or plasm a creatinine 0.90 mg/dL 0.5-1. 5 Not Available [facility] [address] [place], [address], 06/12/2018 15:13:28 06/12/20 18 06/12/2018 CMP, serum or plasm a glucose 104 mg/dL 70-99 high Not Available [facility] [address] [place], [address], 06/12/2018 15:13:28 06/12/20 18 06/12/2018 CMP, serum or plasm a albumin 4.4 g/dL 3.9-4. 8 Not Available [facility] [address] [place], [address], 06/12/2018 15:13:28 06/12/20 18 06/12/2018 CMP, serum or plasm a total protein 6.9 g/dL 6.5-8. 0 Not Available [facility] [address] [place], [address], 06/12/2018 15:13:28 06/12/20 18 06/12/2018 CMP, serum or plasm a calcium 9.3 mg/dL 8.4-10 .3 Not Available [facility] [address] [place], [address], 06/12/2018 15:13:28 06/12/20 18 06/12/2018 CMP, serum or plasm a alkaline phosphatase 82 U/L 39-117 Not Available [facility] [address] [place], [address], 06/12/2018 15:13:28 06/12/20 18 06/12/2018 CMP, serum or plasm a total bilirubin 0.4 mg/dL 0.0-1. 2 Not Available [facility] [address] [place], [address], 06/12/2018 15:13:28 06/12/20 18 06/12/2018 CMP, serum or plasm a AST 16 U/L 0-37 Not Available [facility] [address] [place], [address], 06/12/2018 15:13:28 06/12/20 18 06/12/2018 CMP, serum or plasm a ALT 18 U/L 0-40 Not Available [facility] [address] [place], [address], 06/12/2018 15:13:28 06/12/20 18 06/12/2018 CMP, serum or plasm a globulin 2.5 g/dL 1-4.8 Not Available [facility] [address] [place] [address], [address], 06/12/2018 15:13:28 06/12/20 18 06/12/2018 CMP, serum or plasm a eGFR 66 mL/mi n/1.7 3m2 >59 If patie nt is black , multi ply resul t by 1.159 . Estim ated glome rular filtr ation rate calcu lated using the CKD-E PI equat ion. Not Available [facility] [address] [place] [address], [address], 06/12/2018 15:13:28 06/12/20 18 06/12/2018 CMP, serum or plasm a anion gap 17 mmol/ L 10-20 Not Available [facility] [address] [place] [address], [address], 06/12/2018 15:13:28 06/12/20 18 06/12/2018 C-andra ctive prote in, quant itati ve, serum or plasm a C reactive protein 3.3 mg/L 0.0-4. 0 Not Available [facility] [address] [place], [address], 06/12/2018 15:13:30 06/12/20 18 06/13/2018 HBsAg (hepa titis B surfa ce Ag), serum HBV surface antigen Negati ve negati ve Not Available [facility] [address] [place] [address], [address], 06/13/2018 10:03:22 06/12/20 18 06/13/2018 hepat itis B virus core Ab, quali tativ e, serum hep B core Ab, tot Negati ve negati ve Not Available [facility] [address] [place] [address], [address], 06/13/2018 10:03:24 06/12/20 18 06/14/2018 tb (M [...] a level <0.35 IU/mL . Not Available [facility] [address] [place], [address], 06/14/2018 19:02:21 06/12/20 18 06/14/2018 tb (M tuber culos is), ifn-g deonte sai , blood TB1 Ag minus nil 0.11 IU/mL Not Available [facility] [address] [place] [address], [address], 06/14/2018 19:02:21 06/12/20 18 06/14/2018 tb (M tuber culos is), ifn-g deonte sai , blood TB2 Ag minus nil 0.00 IU/mL Not Available [facility] [address] [place], [address], 06/14/2018 19:02:21 06/12/20 18 06/14/2018 tb (M tuber culos is), ifn-g deonte sai , blood mitogen minus nil 2.75 IU/mL Not Available [facility] [address] [place] [address], [address], 06/14/2018 19:02:21 06/12/20 18 06/14/2018 tb (M tuber culos is), ifn-g deonte sai , blood nil result 0.01 IU/mL Not Available [facility] [address] [place] [address], [address], 06/14/2018 19:02:21 10/18/19 19 10/17/2018 CBC w/ auto diff WBC 10.03 K/uL 3.40-1 1.20 Not Available [facility] [address] [place] [address], [address], 10/17/2018 15:41:19 10/18/19 19 10/17/2018 CBC w/ auto diff RBC 4.02 M/uL 3.80-4 .80 Not Available [facility] [address] [place] [address], [address], 10/17/2018 15:41:19 10/18/19 19 10/17/2018 CBC w/ auto diff HGB 11.9 g/dL 12.0-1 5.0 low Not Available [facility] [address] [place] [address], [address], 10/17/2018 15:41:19 10/18/19 19 10/17/2018 CBC w/ auto diff HCT 35.2 % 36.0-4 6.0 low Not Available [facility] [address] [place] [address], [address], 10/17/2018 15:41:19 10/18/19 19 10/17/2018 CBC w/ auto diff plt 236 K/uL 130-40 0 Not Available [facility] [address] [place], [address], 10/17/2018 15:41:19 10/18/19 19 10/17/2018 CBC w/ auto diff MCV 87.6 fL 79.0-9 8.0 Not Available [facility] [address] [place], [address], 10/17/2018 15:41:19 10/18/19 19 10/17/2018 CBC w/ auto diff MCH 29.6 pg 27.0-3 4.8 Not Available [facility] [address] [place], [address], 10/17/2018 15:41:19 10/18/19 19 10/17/2018 CBC w/ auto diff MCHC 33.8 g/dL 31.5-3 6.0 Not Available [facility] [address] [place], [address], 10/17/2018 15:41:19 10/18/1910/17/2018 CBC w/ auto diff RDW 12.9 % 10.8-1 4.6 Not Available [facility] [address] [place], [address], 10/17/2018 15:41:19 10/18/1910/17/2018 CBC w/ auto diff MPV 11.0 fL 9.4-12 .4 Not Available [facility] [address] [place], [address], 10/17/2018 15:41:19 10/18/1910/17/2018 CBC w/ auto diff NRBC 0.00 /100_ WBCs 0.00 Not Available [facility] [address] [place], [address], 10/17/2018 15:41:19 10/18/19 19 10/17/2018 CBC w/ auto diff absolute NRBC 0.00 K/uL 0.00 Not Available [facility] [address] [place], [address], 10/17/2018 15:41:19 10/18/19 19 10/17/2018 CBC w/ auto diff diff method Auto Not Available [facility] [address] [place], [address], 10/17/2018 15:41:19 10/18/19 19 10/17/2018 CBC w/ auto diff neuts 70.1 % 45.30- 77.70 Not Available [facility] [address] [place], [address], 10/17/2018 15:41:19 10/18/19 19 10/17/2018 CBC w/ auto diff lymphs 18.2 % 12.30- 39.70 Not Available [facility] [address] [place], [address], 10/17/2018 15:41:19 10/18/19 19 10/17/2018 CBC w/ auto diff monos 7.4 % 4.10-1 2.80 Not Available [facility] [address] [place], [address], 10/17/2018 15:41:19 10/18/19 19 10/17/2018 CBC w/ auto diff eos 2.8 % 0-7.2 Not Available [facility] [address] [place], [address], 10/17/2018 15:41:19 10/18/19 19 10/17/2018 CBC w/ auto diff basos 1.1 % 0-2.80 Not Available [facility] [address] [place], [address], 10/17/2018 15:41:19 10/18/19 19 10/17/2018 CBC w/ auto diff granulocytes , immature (%) 0.4 % 0.0-0. 9 Not Available [facility] [address] [place], [address], 10/17/2018 15:41:19 10/18/19 19 10/17/2018 CBC w/ auto diff absolute neuts 7.03 K/uL 1.40-7 .70 Not Available [facility] [address] [place], [address], 10/17/2018 15:41:19 10/18/19 19 10/17/2018 CBC w/ auto diff absolute lymphs 1.83 K/uL 0.60-3 .20 Not Available [facility] [address] [place], [address], 10/17/2018 15:41:19 10/18/19 19 10/17/2018 CBC w/ auto diff absolute monos 0.74 K/uL 0.11-0 .59 high Not Available [facility] [address] [place], [address], 10/17/2018 15:41:19 10/18/19 19 10/17/2018 CBC w/ auto diff absolute eos 0.28 K/uL 0.01-0 .50 Not Available [facility] (Outpatient) [address] [place], [address], 10/17/2018 15:41:19 10/18/19 19 10/17/2018 CBC w/ auto diff absolute basos 0.11 K/uL 0.00-0 .08 high Not Available [facility] (Outpatient) [address] [place] [address], [address], 10/17/2018 15:41:19 10/18/19 19 10/17/2018 CBC w/ auto diff granulocytes , immature 0.04 K/uL 0.00-0 .05 Not Available [facility] (Outpatient) [address] [place], [address], 10/17/2018 15:41:19 10/18/19 19 10/17/2018 eryth rocyt e sedim entat ion rate by prema gonzalez d ESR 5 mm/h 0-30 Not Available [facility] (Outpatient) [address] [place], [address], 10/17/2018 16:22:09 10/18/19 19 10/17/2018 CMP, serum or plasm a sodium 143 mmol/ L 133-14 6 Not Available [facility] (Outpatient) [address] [place], [address], 10/17/2018 16:48:20 10/18/19 19 10/17/2018 CMP, serum or plasm a potassium 4.3 mmol/ L 3.3-5. 1 Not Available [facility] (Outpatient[facility] [address] [place], [address], 10/17/2018 16:48:20 10/18/19 19 10/17/2018 CMP, serum or plasm a chloride 104 mmol/ L 96-108 Not Available [facility] (Outpatient) [address] [place], [address], 10/17/2018 16:48:20 10/18/19 19 10/17/2018 CMP, serum or plasm a CO2 26 mmol/ L 21-35 Not Available [facility] (Outpatient) [address] [place], [address], 10/17/2018 16:48:20 10/18/19 19 10/17/2018 CMP, serum or plasm a BUN 28 mg/dL 6-19 high Not Available [facility] (Outpatient) [address] [place], [address], 10/17/2018 16:48:20 10/18/19 19 10/17/2018 CMP, serum or plasm a creatinine 1.00 mg/dL 0.5-1. 5 Not Available [facility] (Out[facility] [address] [place], [address], 10/17/2018 16:48:20 10/18/19 19 10/17/2018 CMP, serum or plasm a glucose 127 mg/dL 70-99 high Not Available [facility] (Outpatient) [address] [place], [address], 10/17/2018 16:48:20 10/18/19 19 10/17/2018 CMP, serum or plasm a albumin 4.3 g/dL 3.9-4. 8 Not Available [facility] (Out[facility] [address] [place], [address], 10/17/2018 16:48:20 10/18/19 19 10/17/2018 CMP, serum or plasm a total protein 6.9 g/dL 6.5-8. 0 Not Available [facility] (Out[facility] [address] [place], [address], 10/17/2018 16:48:20 10/18/19 19 10/17/2018 CMP, serum or plasm a calcium 9.5 mg/dL 8.4-10 .3 Not Available [facility] ([facility] [address] [place], [address], 10/17/2018 16:48:20 10/18/19 19 10/17/2018 CMP, serum or plasm a alkaline phosphatase 74 U/L 39-117 Not Available [facility] (Outpatient) [address] [place], [address], 10/17/2018 16:48:20 10/18/19 19 10/17/2018 CMP, serum or plasm a total bilirubin 0.3 mg/dL 0.0-1. 2 Not Available [facility] (Out[facility] [address] [place], [address], 10/17/2018 16:48:20 10/18/19 19 10/17/2018 CMP, serum or plasm a AST 19 U/L 0-37 Not Available [facility] (Out[facility]) [address] [place], [address], 10/17/2018 16:48:20 10/18/19 19 10/17/2018 CMP, serum or plasm a ALT 17 U/L 0-40 Not Available [facility] (Out[facility] [address] [place], [address], 10/17/2018 16:48:20 10/18/19 19 10/17/2018 CMP, serum or plasm a globulin 2.6 g/dL 1-4.8 Not Available [facility]) [address] [place] [address], [address], 10/17/2018 16:48:20 10/18/19 19 10/17/2018 CMP, serum or plasm a eGFR 58 mL/mi n/1.7 3m2 >59 low If patie nt is black , multi ply resul t by 1.159 . Estim ated glome rular filtr ation rate calcu lated using the CKD-E PI equat ion. Not Available [facility] (Outpatient) [address] [place] [address], [address], 10/17/2018 16:48:20 10/18/19 19 10/17/2018 CMP, serum or plasm a anion gap 17 mmol/ L 10-20 Not Available [facility] (Out[facility]) [address] [place] [address], [address], 10/17/2018 16:48:20 10/18/19 19 10/17/2018 C-andra ctive prote in, quant itati ve, serum or plasm a C reactive protein 6.2 mg/L 0.0-4. 0 high Not Available [facility] (Out[facility] [address] [place], [address], 10/17/2018 16:48:21 01/17/20 19 01/16/2019 CBC w/ auto diff WBC 10.98 K/uL 3.40-1 1.20 Not Available [facility] ([facility] [address] [place], [address], 01/16/2019 16:23:22 01/17/20 19 01/16/2019 CBC w/ auto diff RBC 4.04 M/uL 3.80-4 .80 Not Available [facility] (Out[facility]) [address] [place], [address], 01/16/2019 16:23:22 01/17/20 19 01/16/2019 CBC w/ auto diff HGB 11.9 g/dL 12.0-1 5.0 low Not Available [facility] ([facility]) [address] [place], [address], 01/16/2019 16:23:22 01/17/20 19 01/16/2019 CBC w/ auto diff HCT 35.3 % 36.0-4 6.0 low Not Available [facility] (Outpatient) [address] [place], [address], 01/16/2019 16:23:22 01/17/20 19 01/16/2019 CBC w/ auto diff plt 274 K/uL 130-40 0 Not Available [facility] ([facility]) [address] [place], [address], 01/16/2019 16:23:22 01/17/20 19 01/16/2019 CBC w/ auto diff MCV 87.4 fL 79.0-9 8.0 Not Available [facility] ([facility] [address] [place], [address], 01/16/2019 16:23:22 01/17/20 19 01/16/2019 CBC w/ auto diff MCH 29.5 pg 27.0-3 4.8 Not Available [facility] (Out[facility]) [address] [place], [address], 01/16/2019 16:23:22 01/17/20 19 01/16/2019 CBC w/ auto diff MCHC 33.7 g/dL 31.5-3 6.0 Not Available [facility] (Outpatient) [address] [place], [address], 01/16/2019 16:23:22 01/17/20 19 01/16/2019 CBC w/ auto diff RDW 13.3 % 10.8-1 4.6 Not Available [facility] ([facility]) [address] [place], [address], 01/16/2019 16:23:22 01/17/20 19 01/16/2019 CBC w/ auto diff MPV 11.7 fL 9.4-12 .4 Not Available [facility] ([facility] [address] [place], [address], 01/16/2019 16:23:22 01/17/20 19 01/16/2019 CBC w/ auto diff NRBC 0.00 /100_ WBCs 0.00 Not Available [facility] ([facility] [address] [place], [address], 01/16/2019 16:23:22 01/17/20 19 01/16/2019 CBC w/ auto diff absolute NRBC 0.00 K/uL 0.00 Not Available [facility] ([facility]) [address] [place], [address], 01/16/2019 16:23:22 01/17/20 19 01/16/2019 CBC w/ auto diff diff method Auto Not Available [facility] ([facility]) [address] [place], [address], 01/16/2019 16:23:22 01/17/20 19 01/16/2019 CBC w/ auto diff neuts 81.4 % 45.30- 77.70 high Not Available [facility] ([facility]) [address] [place], [address], 01/16/2019 16:23:22 01/17/20 19 01/16/2019 CBC w/ auto diff lymphs 10.6 % 12.30- 39.70 low Not Available [facility]) [address] [place] [address], [address], 01/16/2019 16:23:22 01/17/20 19 01/16/2019 CBC w/ auto diff monos 4.7 % 4.10-1 2.80 Not Available [facility]) [address] [place] [address], [address], 01/16/2019 16:23:22 01/17/20 19 01/16/2019 CBC w/ auto diff eos 2.0 % 0-7.2 Not Available [facility] ([facility]) [address] [place] [address], [address], 01/16/2019 16:23:22 01/17/20 19 01/16/2019 CBC w/ auto diff basos 1.0 % 0-2.80 Not Available [facility] ([facility]) [address] [place] [address], [address], 01/16/2019 16:23:22 01/17/20 19 01/16/2019 CBC w/ auto diff granulocytes , immature (%) 0.3 % 0.0-0. 9 Not Available [facility] ([facility]) [address] [place] [address], [address], 01/16/2019 16:23:22 01/17/20 19 01/16/2019 CBC w/ auto diff absolute neuts 8.94 K/uL 1.40-7 .70 high Not Available [facility] ([facility]) [address] [place] [address], [address], 01/16/2019 16:23:22 01/17/20 19 01/16/2019 CBC w/ auto diff absolute lymphs 1.16 K/uL 0.60-3 .20 Not Available [facility] (Out[facility]) [address] [place] [address], [address], 01/16/2019 16:23:22 01/17/20 19 01/16/2019 CBC w/ auto diff absolute monos 0.52 K/uL 0.11-0 .59 Not Available [facility] ([facility]) [address] [place], [address], 01/16/2019 16:23:22 01/17/20 19 01/16/2019 CBC w/ auto diff absolute eos 0.22 K/uL 0.01-0 .50 Not Available [facility] (Outpatient) [address] [place], [address], 01/16/2019 16:23:22 01/17/20 19 01/16/2019 CBC w/ auto diff absolute basos 0.11 K/uL 0.00-0 .08 high Not Available [facility] (Out[facility]) [address] [place], [address], 01/16/2019 16:23:22 01/17/20 19 01/16/2019 CBC w/ auto diff granulocytes , immature 0.03 K/uL 0.00-0 .05 Not Available [facility] ([facility]patient) [address] [place], [address], 01/16/2019 16:23:22 01/17/20 19 01/16/2019 eryth rocyt e sedim entat ion rate by prema sanchezo d ESR 9 mm/h 0-30 Not Available [facility] ([facility]) [address] [place], [address], 01/16/2019 17:39:50 01/17/20 19 01/16/2019 C-andra ctive prote in, quant itati ve, serum or plasm a C reactive protein 5.2 mg/L 0.0-4. 0 high Not Available [facility] (Outpatient) [address] [place], [address], 01/16/2019 18:50:56 01/17/20 19 01/16/2019 CMP, serum or plasm a sodium 141 mmol/ L 133-14 6 Not Available [facility] (Outpatient) [address] [place], [address], 01/16/2019 22:11:00 01/17/20 19 01/16/2019 CMP, serum or plasm a potassium 4.4 mmol/ L 3.3-5. 1 Not Available [facility] (Outpatient) [address] [place], [address], 01/16/2019 22:11:00 01/17/20 19 01/16/2019 CMP, serum or plasm a chloride 102 mmol/ L 96-108 Not Available [facility] (Outpatient) [address] [place], [address], 01/16/2019 22:11:00 01/17/20 19 01/16/2019 CMP, serum or plasm a CO2 23 mmol/ L 21-35 Not Available [facility] ([facility]) [address] [place], [address], 01/16/2019 22:11:00 01/17/2001/16/2019 CMP, serum or plasm a BUN 23 mg/dL 6-19 high Not Available [facility] ([facility]patient) [address] [place], [address], 01/16/2019 22:11:00 01/17/2001/16/2019 CMP, serum or plasm a creatinine 1.50 mg/dL 0.5-1. 5 Not Available [facility] (Outpatient) [address] [place], [address], 01/16/2019 22:11:00 01/17/2001/16/2019 CMP, serum or plasm a glucose 161 mg/dL 70-99 high Not Available [facility] ([facility]patient) [address] [place], [address], 01/16/2019 22:11:00 01/17/2001/16/2019 CMP, serum or plasm a albumin 4.0 g/dL 3.9-4. 8 Not Available [facility] ([facility]) [address] [place], [address], 01/16/2019 22:11:00 01/17/20 19 01/16/2019 CMP, serum or plasm a total protein 6.8 g/dL 6.5-8. 0 Not Available [facility] (Outpatient) [address] [place], [address], 01/16/2019 22:11:00 01/17/20 19 01/16/2019 CMP, serum or plasm a calcium 9.0 mg/dL 8.4-10 .3 Not Available [facility] (Out[facility]) [address] [place], [address], 01/16/2019 22:11:00 01/17/20 19 01/16/2019 CMP, serum or plasm a alkaline phosphatase 78 U/L 39-117 Not Available [facility] (Outpatient) [address] [place], [address], 01/16/2019 22:11:00 01/17/20 19 01/16/2019 CMP, serum or plasm a total bilirubin 0.4 mg/dL 0.0-1. 2 Not Available [facility] (Outpatient) [address] [place], [address], 01/16/2019 22:11:00 01/17/20 19 01/16/2019 CMP, serum or plasm a AST 21 U/L 0-37 Not Available [facility] (Outpatient) [address] [place], [address], 01/16/2019 22:11:00 01/17/20 19 01/16/2019 CMP, serum or plasm a ALT 19 U/L 0-40 Not Available [facility] (Outpatient) [address] [place], [address], 01/16/2019 22:11:00 01/17/20 01/16/2019 CMP, serum or plasm a globulin 2.8 g/dL 1-4.8 Not Available [facility] ([facility]) [address] [place], [address], 01/16/2019 22:11:00 01/17/20 19 01/16/2019 CMP, serum or plasm a eGFR 35 mL/mi n/1.7 3m2 >59 low If patie nt is black , multi ply resul t by 1.159 . Estim ated glome rular filtr ation rate calcu lated using the CKD-E PI equat ion. Not Available [facility] (Outpatient) [address] [place], [address], 01/16/2019 22:11:00 01/17/20 19 01/16/2019 CMP, serum or plasm a anion gap 20 mmol/ L 10-20 Not Available [facility] (Outpatient) [address] [place], [address], 01/16/2019 22:11:00 06/12/20 18 06/12/2018 xr chest [...] MD Final result [facility] [address] [place], [address], 06/12/2018 20:56:35 09/07/19 19 09/06/2018 bd dxa [...] Jane MD 9 Final result NATALIE Kaur [facility] [address] [facility], [place], [address], 09/08/2018 18:43:16 Result Notes None recorded. 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 Active 2017 admitted to [facility]; lamicatal 11/2017 Natalie Reveles MD [address] [place] [address] Betty Hernán[place], [address] 8 20:36:49 Gastroes ophageal reflux disease 823131160 [facility] 15:48:05 Mixed hyperlip idemia 006046205 Active 2001 Natalie Reveles MD [address] [place] [address] Betty Hernán[place], [address], [facility] 6 12:19:12 Colitis, enteriti s and gastroen teritis presumed infectio us 767351808 Completed 200611/06/2009 Natalie Reveles MD [address] [place] [address] Betty [place]án[place], [address], [facility] 6 15:03:24 Nausea 872917447 Completed 200611/06/2009 Natalie Reveles MD [address] [place] [address] Betty [place]án[place], [address], [facility] 6 15:03:24 Essentia l hyperten lindsay 35744679 Completed 200311/06/2009 Natalie Reveles MD [address] [place] [address] Betty [place]án[place], [address], [facility] 6 15:03:24 Nausea and vomiting 35114348 Completed 200611/06/2009 Natalie Reveles MD [address] [place] [address] Betty [place]án[place], [address], [facility] 6 15:03:24 Cellulit is and abscess of buttock 510206588 Completed 200011/06/2009 Natalie Reveles MD [address] [place] [address] Betty Hernán[place], [address], [facility] 6 15:03:24 Urinary tract infectio us disease 96197393 Completed 200711/06/2009 Natalie Reveles MD [address] [place] [address] Betty Hernán[place], [address] 1, [facility] 6 15:03:24 Benign essentia l hyperten lindsay 6151190 Active 2001 Natalie Reveles MD [address] [place] [address] Betty [place]án[place], [address], [facility] 6 12:19:12 Acute cystitis 29069428 Completed 200411/06/2009 Natalie Reveles MD [address] [place] [address] Betty Hernán[place], [address], [facility] 6 15:03:24 Acute pain 463292027 Completed 200711/06/2009 Natalie Reveles MD [address] [place] [address] Betty Hernán[place], [address], [facility] 6 15:03:24 Allergic rhinitis 92385823 Completed 200511/06/2009 Natalie Reveles MD [address] [place] [address] Betty [place]án[place], [address], [facility] 6 15:03:24 Osteoart hritis 948300568 Completed 200711/06/2009 Natalie Reveles MD [address] [place] [address] Betty [place]án[place], [address] 1, [facility] 6 15:03:24 Sciatica 79750153 Active 2007 spinal stenosis Natalie Reveles MD [address] [place] [address] Betty [place]án[place], [address], [facility] 6 15:03:24 Diabetic on insulin 758604400 Active Natalie Reveles MD [address] [place] [address] Betty [place]án[place], [address], [facility] 6 12:19:12 Type 2 diabetes 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 complica tion 814907412 Active 2004 Natalie Reveles MD [address] [place] [address] Betty Hernán[place], [address], [facility] 6 12:19:12 Anemia 677581337 Completed 200611/06/2009 Natalie Reveles MD [address] [place] [address] Betty [place]án[place], [address], [facility] 6 15:03:24 Acute maxillar y sinusiti s 47277102 Completed 200311/06/2009 Natalie Reveles MD [address] [place] [address] Betty [place]án[place], [address] 1, [facility] 6 15:03:24 Arteriti s 12437691 Completed 200511/06/2009 Natalie Reveles MD [address] [place] [address] Betty [place]án[place], [address], [facility] 6 15:03:24 Uncontro lled type 2 diabetes mellitus 937363565 Completed 200606/12/2013 Natalie Reveles MD [address] [place] [address] Betty [place]án[place], [address], [facility] 6 15:03:24 Degenera tive joint disease involvin g multiple joints 061567289 Completed 200006/12/2013 Natalie Reveles MD [address] [place] [address] Betty [place]án[place], [address], [facility] 6 15:03:24 Hyperlip idemia 45001496 Completed 200111/06/2009 Natalie Reveles MD [address] [place] [address] Betty [place]án[place], [address], [facility] 6 15:03:24 Backache 567672206 Completed 200711/06/2009 Natalie Reveles MD [address] [place] [address] Betty [place]án[place], [address], [facility] 6 15:03:24 Malaise and fatigue 039311634 Completed 200111/06/2009 Natalie Reveles MD [address] [place] [address] Betty [place]án[place], [address] 1, [facility] 6 15:03:24 Contact dermatit is 35992613 Completed 11/06/2009 Natalie Reveles MD [address] [place] [address] Betty [place]án[place], [address] 1, [facility] 6 15:03:24 Cough 74145133 Completed 200411/06/2009 Natalie Reveles MD [address] [place] [address] Betty [place]án[place], [address] 1, [facility] 6 15:03:24 Rheumato id arthriti s 82622982 Active sero-nega tive Natalie Reveles MD [address] [place] [address] Betty [place]án[place], [address] 1, [facility] 6 12:19:12 Fever 160824758 Completed 200611/06/2009 Natalie Reveles MD [address] [place] [address] Betty [place]án[place], [address] 1, [facility] 6 15:03:24 Allergic asthma without status asthmati cus 25611693 Active 2002 Natalie Reveles MD [address] [place] [address] Betty Hernán[place], [address] 1, [facility] 6 15:03:24 Acute sinusiti s 58630947 Completed 05/14/2013 Natalie Reveles MD [address] [place], [place] [address], [address] 1, [facility] 6 15:03:24 Common cold 74579134 Completed 200211/06/2009 Natalie Reveles MD [address] [place], [place] [address], [address] 1, [facility] 6 15:03:24 Common cold 22750578 Completed 05/14/2013 Natalie Reveles MD [address] [place] [address] Betty Hernán[place], [address] 1, [facility] 6 15:03:24 On examinat ion - a rash Completed 200511/06/2009 Natalie Reveles MD [address] [place], [place] [address], [address], [facility] 6 15:03:24 General symptom 482102161 Completed 200611/06/2009 Natalie Reveles MD [address] [place], [place] [address], [address] 1, [facility] 6 15:03:24 Blood chemistr y outside referenc e range 535065487 Completed 200311/06/2009 Natalie Reveles MD [address] [place], [place] [address], [address], [facility] 6 15:03:24 Hypothyr oidism 29878847 Completed 200607/22/2015 Natalie Reveles MD [address] [place], [place] [address], [address] 1, [facility] 6 15:03:24 Mononeur itis 92718191 Active 2003 Natalie Reveles MD [address] [place], [place] [address], [address] 1, [facility] 6 15:03:24 Primary fibromya lgia syndrome 37074008 Completed 200211/06/2009 Natalie Reveles MD [address] [place], [place] [address], [address] 1, [facility] 6 15:03:24 Vaginiti s and vulvovag initis Completed 200011/06/2009 Natalie Reveles MD [address] [place], [place] [address], [address], [facility] 6 15:03:24 Problem Notes None recorded. Procedures Surgical History Date Name Laterality Status Provider Name and Address Organization Details Recorded Time 9 Medicare Wellness Visit completed Sarah Jewell MA [facility] 12/31/2018 14:43:15 8 Medicare Wellness Visit completed Liz Boyce CMA [facility] 12/27/2017 15:09:17 8 Post hospital/SNF follow-up/[facility] sitional Care completed Liz Boyce CMA [facility] 11/13/2017 14:14:12 8 Nebulizer Tx completed Karmen White LPN [facility] 08/02/2017 14:24:48 7 Medicare Wellness Visit completed Mary Finley MA [facility] 12/25/2016 09:27:15 Imaging Results Imaging Date Name Status LastModified by Organiz ation Details LastModified Time 06/12/2018 xr chest Pa and lateral 2 views completed [facility] [address] [place], [address], 06/12/2018 20:56:35 09/06/2018 bd dxa axial (spine) with hip completed [facility] [address] [place], [address], 09/08/2018 18:43:16 Procedure Notes None recorded. Medical Equipment None Reported. Allergies Allergen ID Allergen Name Allergen Category Reaction Reaction Severity Criticality Documentation Date Start Date Code Code System Note Provider Name and Address Organization Details Recorded Time 679242 doxycycli ne Not available nausea Not available Not available 11/27/2013 3640 RxNorm Kacey Espinoza MA [facility] 4 10:10:57 [id number] codeine medicatio n nausea Not available Not available 08/17/2015 2670 RxNorm Angelica Hicks CMA [facility] 6 16:23:36 07240 Substance with sulfonami de structure and antibacte rial mechanism of action (substanc e) medicatio n hives Not available Not available 06/29/2010 99218 8003 SNOMED Not Available [facility] 1 06:05:41 Medications Name Sig Start [...] tablet TK 4 TS PO QAM WITH BELIKS active Not Available Not Available No t [...] EVERY DAY AT BEDTIME 11/13 completed per [facility] d/c 11/08/17 new dose as [...] Updated DateTime 8 147.95 cm 35.9 kg/m2 27339.1 8 g 80 /min 97 % 97 % 126 mm[Hg] 74 mm[Hg] Sarah Jewell MA [facility] 8 10:50:58 Date Recorded Body height Body mass index (BMI) Body weight Heart rate Systolic blood pressure Diastolic blood pressure Provider Name and Address Organization Details Last Updated DateTime 9 147.95 cm 35.7 kg/m2 77078.6 9 g 64 /min 90 mm[Hg] 54 mm[Hg] Marcia Baron MA [facility] 9 11:24:40 Date Recorded Body height Body mass index (BMI) Body weight Oxygen saturation Oxygen saturation in Arterial blood by Pulse oximetry Heart rate Systolic blood pressure Diastolic blood pressure Provider Name and Address Organization Details Last Updated DateTime 9 147.95 cm 36.3 kg/m2 22690.7 6 g 96 % 96 % 76 /min 120 mm[Hg] 62 mm[Hg] Sarah Jewell [facility] 9 14:52:36 Date Recorded Systolic blood pressure Diastolic blood pressure Systolic blood pressure Diastolic blood pressure Provider Name and Address Organization Details Last Updated DateTime 12/31/2018 120 mm[Hg] 60 mm[Hg] 120 mm[Hg] 60 mm[Hg] Kassie Reynolds [facility] 9 15:58:43 Date Recorded Body height Body mass index (BMI) Body weight Body temperature Heart rate Oxygen saturation Oxygen saturation in Arterial blood by Pulse oximetry Systolic blood pressure Diastolic blood pressure Provider Name and Address Organization Details Last Updated DateTime 147.95 cm 35.9 kg/m2 84879.5 8 g 97.9 [degF] 88 /min 96 % 96 % 114 mm[Hg] 62 mm[Hg] [facility] 09:44:29 Social History Question [...] Caffeine Consumption? Moderate 4 Cups Tea Daily [id number] Information not available 12/27/2017 How Much Tobacco [...] toxoid, unspecified formulation 1 completed Not Available [facility] 07/12/2019 02:34:13 influenza, unspecified formulation 0 completed Not Available [facility] 05/10/2011 05:22:52 Influenza, split virus, trivalent, preservative 1 [facility] 05/17[facility] 14:09:08 Tdap 1 completed Fang Robison RN [facility] 06/12/2011 16:12:51 influenza, unspecified formulation 2 [facility] 05/21/2012 16:38:35 influenza, unspecified formulation 3 [facility] 06/12/2013 16:12:54 influenza, unspecified formulation 4 [facility] 06/23/2014 15:26:51 influenza, unspecified formulation 5 [facility] 04/29/2015 14:13:29 Pneumococcal conjugate PCV 13 8 completed Not Available [facility] 07/12/2019 02:22:36 Hep B, adult 9 completed Not Available [facility] 07/12/2019 02:34:54 influenza, unspecified formulation 6 completed Not Available [facility] 07/26/2019 02:10:42 pneumococcal polysaccharide PPV23 9 completed Not Available [facility] 07/12/2019 02:24:02 Influenza, split virus, quadrivalent, preservative 7 completed Liz Boyce CMA [facility] 05/03/2017 14:36:38 Past Encounters Encounter ID Performer Location Encounter Start Date Encounter Closed Date Diagnosis/Indication Diagnosis SNOMED-CT Code Diagnosis ICD10 Code Diagnosis Note [id number] [facility], OFFICE [address] [place] [address] 09/14/2000 12:00:00 07/15/2008 02:02:29 [id number] RAJEEV [facility], OFFICE [address] [facility] [place] [address] 10/16/2000 10:45:00 07/15/2008 02:02:29 [id number] FP, [facility], OFFICE [address] [facility] [place] [address] 02/28/2001 14:15:00 07/15/2008 02:02:29 [id number] FP, [facility], OFFICE [address] [facility] [place] [address] 6 03/01/2001 09:45:00 07/15/2008 02:02:29 [id number] FP, [facility], OFFICE [address] [facility] [place] [address] 6 10/22/2001 09:00:00 07/15/2008 02:02:29 [id number] LAB - [facility] 70 [facility] [place] [address] 10/22/2001 10:30:00 07/15/2008 02:02:29 [id number] RAJEEV [facility] OFFICE [facility] [address] 12/02/2001 08:19:54 07/15/2008 02:02:29 [id number] Radiology , [facility] [address] [place] [address] 12/02/2001 11:21:25 07/15/2008 02:02:29 [id number] LAB - [address] [place] [address] 6 04/24/2002 08:28:24 07/15/2008 02:02:29 [id number] [facility], OFFICE [address] [place] [address] 04/30/2002 16:42:20 07/15/2008 02:02:29 [id number] LAB - [facility] [address] 07/22/2002 09:02:09 07/15/2008 02:02:29 [id number] FP [facility], OFFICE [address] [facility] [place] [place] [address] 07/29/2002 16:39:59 07/15/2008 02:02:29 [id number] [facility], OFFICE 70 [facility] [place] [place] [address] 6 10/30/2002 11:15:27 07/15/2008 02:02:29 [id number] LAB - [facility] [address] 10/30/2002 12:12:41 07/15/2008 02:02:29 [id number] RAJEEV [facility], OFFICE [address] [place] [address] 6 12/31/2002 10:02:51 07/15/2008 02:02:29 [id number] LAB - [facility] [address] [place] [address] 6 12/31/2002 00:00:00 07/15/2008 02:02:29 [id number] LAB - [address] [place] [address] 01/13/2003 11:28:31 07/15/2008 02:02:29 [id number] Radiology , [facility] [address] [place] [address] 01/15/2003 08:55:54 07/15/2008 02:02:29 [id number] RAJEEV [facility], OFFICE [address] [place] [address] 6 07/03/2003 16:41:59 07/04/2003 10:51:01 [id number] RAJEEV [facility], OFFICE [address] [place] [address] 6 10/13/2003 14:52:44 10/14/2003 08:39:08 [id number] LAB - [facility] [place] [address] 6 10/22/2003 08:14:06 10/22/2003 08:14:10 [id number] RAJEEV [facility], OFFICE [address] [place] [address] 6 12/10/2003 14:34:40 12/12/2003 13:55:58 [id number] LAB - [facility] [address] [place] [address] 6 03/30/2004 08:05:15 03/30/2004 08:05:20 [id number] RAJEEV [facility], OFFICE [address] [place] [address] 6 07/04/2004 13:43:22 07/04/2004 17:14:21 [id number] RAJEEV [facility], OFFICE [address] [place] [address] 6 07/26/2004 09:25:43 07/27/2004 08:19:25 [id number] RAJEEV [facility], OFFICE [address] [place] [address] 6 08/08/2004 15:52:00 08/09/2004 08:55:32 [id number] FP, [facility], OFFICE [address] [place] [address] 6 09/05/2004 07:59:25 09/05/2004 15:25:12 [id number] FP, [facility], OFFICE [address] [place] [address] 6 09/19/2004 13:51:52 09/19/2004 17:45:01 [id number] LAB - [facility] [address] [place] [address] 6 10/05/2004 08:38:59 10/05/2004 08:39:04 [id number] FP, [facility], OFFICE [address] [place] [address] 6 10/10/2004 07:58:34 10/10/2004 14:31:17 [id number] FP [facility], OFFICE [address] [facility] [place] [address] 6 11/03/2004 13:44:09 07/15/2008 02:02:29 [id number] LAB - [facility] [address] [place] [address] 01/16/2005 08:22:10 01/16/2005 08:22:26 [id number] FP [facility], OFFICE [address] [facility] [place] [address] 6 01/24/2005 08:00:36 07/15/2008 02:02:29 [id number] Radiology , [facility] [address] [place] [address] 02/13/2005 11:40:53 07/15/2008 02:02:29 [id number] Radiology , [facility] 70 [facility] [place] [address] 02/13/2005 00:00:00 07/15/2008 02:02:29 [id number] FP, [facility], OFFICE [address] [facility] [place] [address] 04/12/2005 08:22:15 07/15/2008 02:02:29 [id number] FP, [facility], OFFICE [address] [facility] [place] [address] 6 04/28/2005 16:18:32 07/15/2008 02:02:29 [id number] LAB - [facility] [address] [place] [address] 6 08/22/2005 08:28:59 08/22/2005 08:29:02 [id number] FP, [facility], OFFICE [address] [place] [address] 6 08/28/2005 15:40:14 08/29/2005 08:44:57 [id number] [facility], OFFICE [address] [place] 6 09/21/2005 14:22:16 07/15/2008 02:02:29 [id number] LAB - [facility] 70 [place] Robles62[address] 6 09/21/2005 15:10:47 09/21/2005 15:11:05 [id number] LAB - [facility] [address] [place] [address] 6 01/23/2006 08:32:14 01/23/2006 08:32:24 [id number] [facility], OFFICE [address] [place]ANTA62[address] 6 02/05/2006 11:04:33 02/06/2006 09:17:09 [id number] [facility], OFFICE [address] [place] [address] 6 03/21/2006 10:05:20 03/22/2006 08:20:24 [id number] [facility], OFFICE [address] [place] [address] 6 04/04/2006 11:34:15 04/08/2006 09:14:42 [id number] LAB - [facility] L[place]DR[place] Banks[address] 6 04/25/2006 08:18:53 04/25/2006 08:19:04 [id number] [facility], OFFICE [address] [place] [address] 05/03/2006 09:59:10 05/04/2006 08:46:05 [id number] Radiology , [facility] [address] [place] [address] 6 05/08/2006 08:08:08 07/15/2008 02:02:29 [id number] Radiology , [facility] [address] [place] [address] 6 05/08/2006 00:00:00 07/15/2008 02:02:29 [id number] [facility], OFFICE [address] [place] [address] 6 07/31/2006 08:56:23 07/31/2006 14:16:09 [id number] LAB - [facility] [address] [place] [address] 6 07/31/2006 10:36:02 07/31/2006 10:36:06 [id number] RAJEEV [facility], OFFICE [address] [place] [address] 6 08/07/2006 08:36:04 08/08/2006 08:58:07 [id number] LAB - [facility] [address] [place] [address] 6 10/22/2006 08:25:40 10/22/2006 08:25:45 [id number] RAJEEV [facility], OFFICE 70 [place]62[address] 6 10/29/2006 07:59:04 10/29/2006 10:37:03 [id number] LAB - [facility] [address] [place] [address] 10/30/2006 08:27:25 10/30/2006 08:27:30 [id number] RAJEEV [facility], OFFICE [address] [place] [address] 6 11/26/2006 10:44:18 11/26/2006 15:10:48 [id number] LAB - [facility] [place] [place] [address] 6 11/26/2006 11:29:37 11/26/2006 11:29:44 [id number] [facility], OFFICE [address] [place] [address] 12/06/2006 14:26:14 12/07/2006 08:30:34 [id number] RAJEEV [facility], OFFICE [address] [place] [address] 6 12/10/2006 13:46:03 12/11/2006 09:05:34 [id number] LAB - [facility] [place] [place] [address] 6 12/10/2006 14:31:03 12/10/2006 14:31:43 [id number] LAB - [facility] [place] [address] 01/04/2007 07:54:29 01/04/2007 07:54:36 [id number] LAB - [facility] [place] [address] 6 04/08/2007 08:14:44 04/08/2007 08:14:49 [id number] RAJEEV [facility], OFFICE [address] [place] [address] 04/15/2007 16:27:24 04/18/2007 08:58:27 [id number] [facility] [address] [place] [address] 6 06/29/2007 09:23:36 07/01/2007 09:13:11 [id number] [facility], OFFICE 70 L[place]ANTA62[address] 6 09/20/2007 14:25:55 07/15/2008 02:02:29 [id number] [facility], OFFICE 70 L[place] SANTA62[address] 6 10/08/2007 14:05:16 07/15/2008 02:02:29 [id number] LAB - [facility] 70 [place] Robles62[address] 6 10/29/2007 08:19:39 10/29/2007 08:19:43 [id number] [facility], OFFICE 70 L[place] SANTA62[address] 6 11/05/2007 09:43:59 07/15/2008 02:02:29 [id number] LAB - [facility] LISANDRO Banks62-[address] 6 11/12/2007 08:23:38 11/12/2007 08:23:44 [id number] LAB - [facility] L[place] Banks62-[address] 6 01/17/2008 12:48:01 01/17/2008 12:48:16 [id number] [facility], OFFICE 70 [place]ANTA62[address] 6 01/24/2008 14:09:47 07/15/2008 02:02:29 [id number] LAB - [facility] [place] [address] 6 01/24/2008 15:39:37 01/24/2008 15:40:02 [id number] LAB - [facility] [place] [address] 6 01/24/2008 00:00:00 07/15/2008 02:02:29 [id number] [facility], OFFICE [address] [place] [address] 03/30/2008 10:44:06 07/15/2008 02:02:29 [id number] Physical Therapy, [facility] L[place] Banks62[address] 6 03/31/2008 11:58:11 04/01/2008 09:12:25 [id number] Physical Therapy, [facility] L[place] Banks62-[address] 6 04/02/2008 08:36:13 04/02/2008 16:25:15 [id number] Physical [facility], [facility] L[place] Banks62[address] 6 04/07/2008 08:34:12 04/07/2008 14:43:31 [id number] Physical Therapy, [facility] L[place] Banks62-[address] 6 04/09/2008 08:37:17 04/09/2008 15:42:30 [id number] Physical [facility], [facility] L[place]ANDR[place] Banks62-[address] 6 04/14/2008 08:31:29 04/14/2008 14:21:06 [id number] LAB - [facility] [address] [place] [address] 07/07/2008 11:15:56 07/07/2008 11:16:03 [id number] [facility], OFFICE 70 [place] [address] 07/14/2008 13:28:43 07/24/2008 13:00:23 [id number] Radiology , [address] [place] [address] 12/19/2008 08:52:20 12/22/2008 14:08:26 [id number] [facility], OFFICE 70 [place] [address] 06/24/2009 14:39:32 06/24/2009 16:02:12 [id number] , [facility], OFFICE [address] [place] [address] 10/25/2009 13:26:11 11/10/2009 13:32:16 [id number] Radiology , [facility] 70 [place] [address] 10/25/2009 14:29:01 10/26/2009 11:21:38 [id number] , [facility], OFFICE [address] [place] [address] 06/29/2010 11:23:06 07/26/2010 11:56:31 [id number] , [facility], OFFICE [address] [place] [address] 6 09/22/2010 13:34:57 09/22/2010 17:04:13 [id number] FP [facility], OFFICE [address] [place] [address] 04/05/2011 09:42:34 04/05/2011 10:07:18 [id number] [facility], OFFICE [address] [place] [address] 04/10/2011 09:24:01 04/11/2011 11:28:27 [id number] [facility], OFFICE [address] [place] [address] 05/17/2011 13:46:28 05/17/2011 15:12:35 [id number] [facility] [address] [place] [address] 6 05/17/2011 14:58:54 05/22/2011 15:07:56 [id number] [facility], OFFICE [address] [place] [address] 6 05/26/2011 16:22:49 05/29/2011 14:16:46 [id number] [facility], OFFICE [address] [place] [address] 6 11/21/2011 11:10:29 11/21/2011 12:20:19 [id number] Natalie Reveles MD [facility], OFFICE [address] [place] [address] 05/21/2012 15:50:05 05/21/2012 17:16:10 [id number] ENRIKE Haq [facility], OFFICE [address] [place] [address] 6 08/06/2012 09:44:43 08/06/2012 10:34:24 [id number] Natalie Reveles MD [facility], OFFICE [address] [place] [address] 6 11/01/2012 15:29:43 11/04/2012 10:55:05 [id number] Natalie Reveles MD [facility], OFFICE [address] [place] [address] 6 02/21/2013 11:09:19 02/21/2013 12:15:52 Benign essential hypertension 4417643 continue to work on diet ,exercisea nd lowering salt intake as discussed Mixed hyperlipidemia 863891189 continue to work on diet and exercise as discussed Diabetic on insulin 103658721 Rheumatoid arthritis 33104391 [id number] Kacey Espinoza MA , [facility], OFFICE [address] [place] [address] 06/12/2013 15:53:14 06/12/2013 17:00:00 Benign essential hypertension 1421110 continue to work on diet ,exercisea nd lowering salt intake as discussed Mixed hyperlipidemia 744117061 continue to work on diet and exercise as discussed Adult [facility] th examination 810492964 see Risk Assessment and Lifestyle Change Counseling section above Diabetic on insulin 780884245 Neuropathy due to diabetes mellitus 805713217 Mononeuritis 79164166 Rheumatoid arthritis 88241463 [id number] LISANDRO Neely, [facility], OFFICE [address] [place] [address] 06/19/2013 13:36:30 06/19/2013 14:00:11 Acute sinusitis 64423483 sx tx including afrin- strt ab if no relief Common cold 30135485 Upp er Respirator y Infection Drink plenty [...] days, or you have a high fever. [id number] Mary Finley MA , [facility], OFFICE [address] [place] [address] 09/23/2013 13:47:10 09/24/2013 10:04:00 Sinusitis 76506285 [id number] Yusuf Song MA , [facility], OFFICE [address] [place] [address] 09/29/2013 16:41:29 09/30/2013 09:41:00 Acute sinusitis 66295583 [id number] LISANDRO Perla, [facility], OFFICE [address] [place] [address] 11/27/2013 09:59:23 11/27/2013 16:10:44 Cough 45858891 [id number] Loni Panda MA , [facility], OFFICE [address] [place] [address] 6 12/11/2013 14:25:08 12/11/2013 15:34:31 Benign essential hypertension 1619698 continue to work on diet ,exercisea nd lowering salt intake as discussed Mixed hyperlipidemia 141465707 continue to work on diet and exercise as discussed Neuropathy due to diabetes mellitus 620420580 Diabetic on insulin 716020225 [id number] Natalie Reveles MD , [facility], OFFICE [address] [place] [address] 6 06/23/2014 15:01:46 06/23/2014 16:03:39 Spinal stenosis of lumbar region 71640703 Neuropathy due to diabetes mellitus 723874267 Diabetic on insulin 564424738 Allergic a sthma without status asthmaticus 94018175 Mixed hyperlipidemia 219755524 continue to work on diet and exercise as discussed Mononeuritis 39129331 Rheumatoid arthritis 40591983 Type 2 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 904435574 [id number] Mary Finley MA , [facility], OFFICE [address] [place] [address] 12/31/2014 14:26:47 12/31/2014 15:36:09 Benign essential hypertension 2083277 continue to work on diet, exercise, and lowering salt intake as discussed Blood pressure at goal Mixed hyperlipidemia 104088640 continue to work on diet and exercise as discussed Diabetic on insulin 428675974 Rheumatoid arthritis 04864402 [id number] Natalie Reveles MD , [facility], OFFICE [address] [place] [address] 04/29/2015 13:53:38 04/29/2015 14:45:02 Benign essential hypertension 1542148 I10 continue to work on diet, exercise, and lowering salt intake as discussed Mixed hyperlipidemia 267 232920 E78.2 continue to work on diet and exercise as discussed Diabetic on insulin 1707 02614 Z79.4 Type 2 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 452278392 E11.9 Neuropathy due to diabetes mellitus 686170097 E11.42 Allergic a sthma without status asthmaticus 33427243 J45.909 Rheumatoid arthritis 698 16490 M06.9 [id number] Natalie Reveles MD , [facility], OFFICE [address] [place] [address] 07/22/2015 14:47:13 07/22/2015 15:54:33 Benign essential hypertension 3920749 I10 Blood pressure at goal continue to work on diet, exercise, and lowering salt intake as discussed Mixed hyperlipidemia 267 118801 E78.2 continue to work on diet and exercise as discussed Adult [facility] th examination 569424227 Z00.00 see Risk Assessment and Lifestyle Change Counseling section above Neuropathy due to diabetes mellitus 868932672 E11.42 Diabetic on insulin 1707 33485 Z79.4 Hypothyroidism 71834236 E03.9 Rheumatoid arthritis 698 14135 M06.9 Spinal shara nosis of lumbar region 25012373 M48.06 Type 2 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 344905980 E11.9 [id number] Nilam Duane , [facility], OFFICE [address] [place] [address] 08/17/2015 16:10:28 08/17/2015 16:58:40 Acute sinusitis 92471440 J01.90 Eczema 43833283 L30.9 Asthma 261480013 J45.90 9 Allergic rhinitis 994090 04 J30.9 [id number] Natalie Reveles MD , [facility], OFFICE [address] [place] [address] 11/23/2015 14:02:11 11/23/2015 15:24:07 Benign essential hypertension 8450483 I10 Blood pressure at goal continue to work on diet, exercise, and lowering salt intake as discussed Mixed hyperlipidemia 267 303580 E78.2 Cholestero l is at goal Continue to work on diet and exercise as discussed Neuropathy due to diabetes mellitus 481612375 E11.42 Rheumatoid arthritis 698 21453 M06.9 Type 2 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 352838373 E11.9 Diabetic on insulin 1707 55159 Z79.4 [id number] Natalie Reveles MD , [facility], OFFICE [address] [place] [address] 03/23/2016 14:19:29 03/23/2016 15:26:40 Benign essential hypertension 4380660 I10 Blood pressure at goal Blood pressure NOT at goal. Mixed hyperlipidemia 267 205284 E78.2 continue to work on diet and exercise as discussed Sinusitis 49993222 J32.9 Eczema 08218306 L30.9 Diabetic on insulin 1707 48468 Z79.4 Mononeuritis 22486321 G5 8.9 Rheumatoid arthritis 698 57583 M06.9 [id number] Natalie Reveles MD , [facility], OFFICE [address] [place] [address] 06/13/2016 14:40:53 06/13/2016 15:36:21 Acute sinusitis 45464188 J01.90 [id number] Natalie Reveles MD , [facility], OFF[address] [place] [address] 11/30/2016 13:57:42 11/30/2016 15:08:02 Diabetic on insulin 215055624 Z79.4 Type 2 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 229754016 E11.9 Mixed hyperlipidemia 267 954805 E78.2 continue to work on diet and exercise as discussed Acute sinusitis 97345780 J01.90 [id number] Natalie Reveles MD , [facility], OFFICE [address] [place] [address] 12/25/2016 09:20:57 12/25/2016 10:34:52 Adult health examination 749790389 Z00.00 see Risk Assessment and Lifestyle Change Counseling section above Counseling 415761416 Z71 .9 Mixed hyperlipidemia 267 468445 E78.2 continue to work on diet and exercise as discussed Benign ess ential hypertension 0070215 I10 Blood pressure at goal and re Mononeuritis 04963873 G5 8.9 Sciatica 94210641 M54.30 Diabetic on insulin 1707 74206 Z79.4 Rheumatoid arthritis 698 82999 M06.9 Neuropathy due to diabetes mellitus 668664099 E11.42 Hearing loss 18637226 H9 1.90 [id number] Natalie Reveles MD , [facility], OFFICE [address] [place] [address] 05/03/2017 14:27:16 05/03/2017 15:21:54 Benign essential hypertension 0885561 I10 Blood pressure at goal . Mixed hyperlipidemia 267 849290 E78.2 continue to work on diet and exercise as discussed Sciatica 57091412 M54.30 Type 2 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 456198422 E11.9 Diabetic on insulin 1707 61934 Z79.4 Rheumatoid arthritis 698 23631 M06.9 [id number] Edgar Murray MD , [facility], OFF[address] [place] [address] 06/27/2017 15:27:55 06/27/2017 15:57:15 Acute sinusitis 17006866 J01.90 discussed tx options,. At this point will tx with abx, probiotics , nasal rinses and rest. RTC prn [id number] Mami Bernstein MD , [facility], [address] [place] [address] 08/02/2017 13:49:47 08/02/2017 14:54:19 Allergic asthma without status asthmaticus 73250753 J45.909 feels diminished and wheezingbr eath sounds goodafter neb a bit improvedpe ak flows lower range, not much changesubj ectively feels easier to deep breath after nebulizerb ut albuterol makes her jittery and she avoids it when possiblesh ort term trial inhaled steroidcon tinue proair as neededf/u if not improving Acute uppe r respiratory infection 84356547 J06.9 Kriss is presenting today with recurrent URI sxthis does sound like a new viral URI and not pna or recurrent sinus infections upportive instr giventx coughaugme nt asthma mgmt [id number] Natalie Reveles MD , [facility], [address] [place] [address] 09/13/2017 14:23:47 09/13/2017 15:31:30 Benign essential hypertension 1977097 I10 Blood pressure at goal Mixed hyperlipidemia 267 763900 E78.2 continue to work on diet and exercise as discussed Sciatica 42295428 M54.30 Type 2 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 308472726 E11.9 Mononeuritis 07278234 G5 8.9 Rheumatoid arthritis 698 27053 M06.9 Diabetic on insulin 1707 05835 Z79.4 Anemia 999966886 D64.9 Asthma 666034900 J45.90 9 Active or passive immunization 622871226 Z23 [id number] , [facility], OFF[address] [place] [address] 11/13/2017 14:08:31 11/13/2017 14:54:27 Transient cerebral ischemia 515686467 G45.9 Diabetic on insulin 1707 09523 Z79.4 [id number] Natalie Reveles MD , [facility], OFF[address] [place] [address] 12/27/2017 14:34:57 12/27/2017 16:04:03 Adult health examination 182872283 Z00.00 see Risk Assessment and Lifestyle Change Counseling section above Counseling 328660889 Z71 .9 Depression screening 171 632374 Z13.89 depression screening tool administer ed, entered into emr, scored and discussed, time greater than 7.5 minutes Focal onse t impaired awareness epileptic seizure 090853170 G40.209 Benign ess ential hypertension 3379109 I10 Blood pressure at goal Sciatica 83144069 M54.30 Mixed hyperlipidemia 267 645078 E78.2 continue to work on diet and exercise as discussed Type 2 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 568423978 E11.9 Allergic a sthma without status asthmaticus 21804718 J45.909 Diabetic on insulin 1707 97839 Z79.4 Rheumatoid arthritis 698 56587 M06.9 Neuropathy due to diabetes mellitus 303729472 E11.42 Screening mammography 24 673186 Z12.31 Active or passive immunization 158833672 Z23 [id number] Natalie Reveles MD , [facility], OFF[address] [place] [address] 04/30/2018 10:39:49 04/30/2018 11:23:30 Counseling 878482561 Z71.9 Benign ess ential hypertension 8527983 I10 Blood pressure at goal Mixed hyperlipidemia 267 155004 E78.2 continue to work on diet and exercise as discussed Focal onse t impaired awareness epileptic seizure 332100724 G40.209 Sciatica 03197972 M54.30 Type 2 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 957185817 E11.9 Mononeuritis 74532915 G5 8.9 Diabetic on insulin 1707 55511 Z79.4 Rheumatoid arthritis 698 61041 M06.9 Allergic a sthma without status asthmaticus 16480606 J45.909 Intolerant of ambient temperature 877952832 R68.89 [id number] Sil Carvajal , [facility], [address] [place] [address] 07/04/2018 09:15:51 07/04/2018 09:27:41 Active or passive immunization 027369879 Z23 [id number] Natalie Reveles MD , [facility], [address] [place] [address] 08/29/2018 11:16:37 08/30/2018 10:37:41 Acute sinusitis 55133515 J01.90 Benign ess ential hypertension 9113102 I10 Blood pressure at goal Type 2 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 340284094 E11.9 Mononeuritis 86688702 G5 8.9 Rheumatoid arthritis 698 44848 M06.9 [id number] Natalie Reveles MD , [facility], [address] [place] [address] 12/31/2018 14:40:49 12/31/2018 16:07:09 Adult health examination [id number] Z00.00 see Risk Assessment and Lifestyle Change Counseling section above Counseling [id number] Z71 .9 Depression screening 171 292747 Z13.89 depression screening tool administer ed, entered into emr, scored and discussed, time greater than 7.5 minutes Mixed hyperlipidemia 267 144345 E78.2 Focal onse t impaired awareness epileptic seizure 205943751 G40.209 Benign ess ential hypertension 8053786 I10 Blood pressure at goal Sciatica 66681029 M54.30 Type 2 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 578367014 E11.9 Allergic a sthma without status asthmaticus 39554150 J45.909 Diabetic on insulin 1707 05157 Z79.4 Rheumatoid arthritis 698 15684 M06.9 Gastroesop hageal reflux disease 911077432 K21.9 Active or passive immunization 263060787 Z23 Neuropathy due to diabetes mellitus 860075764 E11.42 [id number] Natalie Reveles MD , [facility], [address] [place] [address] 02/20/2019 09:32:43 02/20/2019 10:11:54 Acute sinusitis 28889427 J01.90 Health Concerns Section Related Observation LastModified by Organization Detai ls LastModified Time None Recorded Concern Status LastModified by Organization Details LastModified Time None Recorded Advance Directives Directive N: Payers Encounter Date Sequence Insurance Name Policy Number Policy Samuel Covered Member ID Samuel Member ID Guarantor Name 04/30/2018 1 [place] [employer] Kriss Jackson [id number] Kriss Jackson 04/30/2018 2 [place] [id number] Kriss Jackson [id number] Kriss Jackson 07/04/2018 1 [place] [employer] Kriss Jackson [id number] Kriss Jackson 07/04/2018 2 [place] [id number] Kriss Jackson [id number] Kriss Jackson 08/29/2018 1 MEDICARE B-[place]: [facility] Kriss Jackson [id number] Kriss Jackson 08/29/2018 2 [place] [id number] Kriss Jackson [id number] Kriss Jackson 12/31/2018 1 [place] [facility] Kriss Jackson [id number] Kriss Jackson 12/31/2018 2 [place] [id number] Kriss Jackson [id number] Kriss Jackson 02/20/2019 1 [place] [facility] Kriss Jackson [id number] Kriss Jackson 02/20/2019 2 [place] [id number] Kriss Jackson [id number] Kriss Jackson Notes Date Note Type [...] intolerance has developed recently Natalie Reveles MD [address] [place] [address], [phone], [facility] 05/11/2018 15:01:12 9 text/html 67 yo with [...] lidocaine patches prn for feetCame back from [place] yesterday and had allergy sx. Using flonase, asthma inhaler, loratidine.Recent A1 C was <6% per Dr. Robson Reveles MD [address] [place] [address], [phone], [facility] 08/30/2018 13:31:11 9 text/html Physical Exam/FemaleReported bypatient.PHAPatient [...] room and availability of urgent care at [facility] DiabetesReported bypatient.Duration:chronic Control:usually well controlled; improved since [...] of 145/80 since reducing lisinopril in august.Sees race steward (Dr. Chance) Natalie Reveles MD [address] [place] [address], [phone], [facility] 01/05/2019 14:13:02 9 text/html Physical Exam/FemaleReported bypatient.PHAPatient [...] room and availability of urgent care at [facility] DiabetesReported bypatient.Duration:chronic Control:usually well controlled; improved since [...] green sputum. No dyspnea Natalie Reveles MD [address] [place] [address], [phone], [facility] 02/20/2019 10:14:25 OBGyn Episode No OBEpisode recorded.
--- OUTSIDE RECORDS SUMMARY | 2024-10-16 11:01 | XMS_ITS ---
Author Organization [facility] Address [address] [place] [address] Care Team Providers Care Pediatrics Physician Name Role Phone Angel Pablo Primary Care Provider Antonio Giles Unavailable [phone] Allergies Allergen (clinical drug ingredient) Drug/Non Drug [...] other tobacco user? No Vital Signs Height 6iu61tv in 06/10/2024 Weight 146 lbs 06/10/2024 BMI 30.51 kg/m2 06/10/2024 Blood pressure systolic 109 mm Hg 06/10/20 24 Blood pressure diastolic 54 mm Hg 024 Procedures Procedure Date Ordered Date Performed Result Body Sit e 83641-JIFDWMZ NAIL, 6 OR MORE 06/10/2024 N/A 22911-LLZP SKIN LESIONS, OVER 4 06/10/2024 N/A Encounters Encounter Location Date Provider Diagnosis [facility] [place] [address] [place] [address] 06/10/2024 Antonio Glies Type 2 diabetes mellitus with diabetic polyneuropathy [...] Treatment Pending Test Test Name Order Date 45636-PSYMXMT NAIL, 6 OR MORE 06/10/2024 26932-LUEZ SKIN LESIONS, OVER 4 06/10/20 24 Next Appt Details Follow Up: prn, Reason: Provider Name:Antonio Giles , 12/23/2024 10:30:00 AM, [address] [place], [address], Procedure Notes * Category Sub-Category Detail Notes [...] use of a nail nipper and/or dremel-type pulp grinder and blender, to a more viable healthy nail plate [...] to maintain effectiveness in symptomatic relief - 16515 Keratoma Treatment Parring or Cutting o f [...] instrumentation by the physician of record - 61724 Progress Notes * Lilly JACKSONDonaldOB:1950 ([age] yo F)Acc No.[id number]:06/10/2024 Progress Note Patient:?Kriss JACKSON Provider:?Antonio Giles DPM :1950???Age:73 Y???Sex:Female D ate:06/10/2024 Address:[address] [place], [place] [address] Pcp:Angel Pablo Subjective: * Chief Complaints: * [...] yes, housework,shooping. ?Marital status: . 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 * Medications:?TakingAcetamino phen ER , Notes to [...] hivesCod eine: stomach upsetDoxycyclineDuloxetineCymbaltayes[Allergies Verified] Objective: * Vitals:?Ht:3bb25qg, Wt:146, BMI:30.51, Shoe size:7, BP:109/54mm Hg, BS:not [...] use of a nail nipper and/or dremel-type pulp grinder and blender, to a more viable healthy nail plate [...] to maintain effectiveness in symptomatic relief - 36911.?Keratoma Treatment:?Parring or Cutting of Benign Hyperkeratotic Lesion(s)?(-57) [...] instrumentation by the physician of record - 09083.? * Procedure Codes:?88837 DEBRI DE NAIL, 6 OR MORE, Modifiers: XS 80274 TRIM SKIN LESIONS, OVER 4, Modifiers: XS [...] Giles DPM Date:?2023 Generated for Shanique alatorre/Lloyd/Jemalitting on:?10/16/2024 11:01 AM EDT History and Physical Notes * [...]
--- OUTSIDE RECORDS SUMMARY | 2024-10-16 11:01 | XMS_ITS | Patient Health Record ---
Author Organization [facility] Address [address] [place] [address] Care Team Providers Care Certified Energy Manager Name Role Phone Angel Pablo Primary Care Provider Antonio Giles Unavailable [phone] Allergies Allergen (clinical drug ingredient) Drug/Non Drug [...] Problem Acquired hammer toe of right foot (5312130682860761 ) Other hammer toe(s) (acquired), right foot (M20.41) Active confirmed Response to treatment, Improvemen t Problem Acquired hammer toe of left foot (6732999345402263 ) Other hammer toe(s) (acquired), left foot (M20.42) Active confirmed Response to treatment, Improvemen t Problem Polyneuropathy due to type 2 diabetes mellitus (703303413) Type 2 diabetes mellitus with diabetic polyneuropathy (E11.42) Active confirmed Vital Signs Blood pressure diastolic 50 mm Hg 09/16/2024 Height 8ru64xt in 09/16/2024 Blood pressure systolic 109 mm Hg 09/16/2024 Weight 146 lbs 09/16/2024 BMI 30.51 kg/m2 09/16/2024 Procedures Procedure Date Ordered Date Performed Result Body Sit e 12215-BVKUBDG NAIL, 6 OR MORE 12/11/2023 N/A 92628-Cauqjhip Plate 12/11/2023 N/A 89788-IREV SKIN LESIONS, OVER 4 12/11/2023 N/A 98470-UPOQPOE NAIL, 6 OR MORE 03/11/2024 N/A 20110 I&D ABSCESS- SIMPLE,SINGLE 03/11/2024 N/A 92778-NMDD SKIN LESIONS, OVER 4 03/11/2024 N/A 64706-RPUIUVS SKIN/TISSUE 03/25/2024 N/A 60679- Debride <25 sq cm 04/15/2024 N/A 20275-ZWVEOCW NAIL, 6 OR MORE 06/10/2024 N/A 42964-EHKQ SKIN LESIONS, OVER 4 06/10/2024 N/A 22348-QOFWATE NAIL, 6 OR MORE 09/16/2024 N/A 60396-GGRJ SKIN LESIONS, OVER 4 09/16/2024 N/A Encounters Encounter Location Date Provider Diagnosis [address] [address] 12/11/2023 Antoniorafia Meadier Type 2 diabetes mellitus with diabetic polyneuropathy E11.42 ; Tinea unguium B35.1 ; Other hammer toe(s) (acquired), right foot M20.41 ; Other hammer toe(s) (acquired), left foot M20.42 and Ingrown nail L60.[address] [address] 03/11/2024 Antonio Tisha Type 2 diabetes mellitus with diabetic polyneuropathy E11.42 ; Tinea unguium B35.1 and Abscess of right foot L02.[address] [address] 03/25/2024 Antonio Tisha Abscess of right nichole t L02.611 and Neuropathic ulcer of right foot with fat layer exposed L97.[address] [address] 04/15/2024 Antonio Tisha Neuropathic ulcer of right foot, limited to breakdown of skin L97.[address] [address] 05/16/2024 Antonio Tisha Neuropathic ulcer of right foot, limited to breakdown of skin L97.[address] [address] 06/10/2024 Antoniorafia Meadier Type 2 diabetes mellitus with diabetic polyneuropathy E11.42 ; Tinea unguium B35.1 ; Other hammer toe(s) (acquired), right foot M20.41 and Other hammer toe(s) (acquired), left foot M20.[address] [address] 09/16/2024 Antonio Tisha Type 2 diabetes mellitus with diabetic polyneuropathy E11.42 ; Tinea unguium B35.1 and Xerosis of skin L85.3 [facility] [address] [address] 03/11/2024 Antonio Giles [facility] [address] [address] 09/26/2024 nAtonio Giles Assessments Encounter Date Diagnosis (ICD Code) [...] X ray : Foot, right 3V 03/03/2022 73180-DBAMOYA NAIL, 6 OR MORE 03/11/2024 14316-RXNYAFH NAIL, 6 OR MORE 09/11/2023 21390-RKQOUYJ NAIL, 6 OR MORE 12/11/2023 55998-UOJYWMC NAIL, 6 OR MORE 09/08/2022 70595-MHHVNEP NAIL, 6 OR MORE 12/08/2022 47228-ONCTYUO NAIL, 6 OR MORE 03/09/2023 35934-OSYOTTM NAIL, 6 OR MORE 06/08/2023 78966-YDPWPNI NAIL, 6 OR MORE 06/02/2022 85693-DBWOTSM NAIL, 6 OR MORE 03/03/2022 14042-PUYTCHV NAIL, 6 OR MORE 08/30/2021 31053-MZRQVOA NAIL, 6 OR MORE 12/02/2021 11389-BWNLFEE NAIL, 6 OR MORE 06/08/2020 73306-MEVBXVF NAIL, 6 OR MORE 09/03/2020 40691-CUQNGMB NAIL, 6 OR MORE 12/10/2020 60076-LDTDNLS NAIL, 6 OR MORE 03/22/2021 51304-ZXACXGA NAIL, 6 OR MORE 06/10/2024 21384-ELQPQLJ NAIL, 6 OR MORE 09/16/2024 34369-Esfehwia Plate 12/11/2023 34409- Debride <25 sq cm 04/15/2024 03135-EMJXFVW SKIN/TISSUE 03/25/2024 95184 I&D ABSCESS- SIMPLE,SINGLE 024 63118-PCZN SKIN LESIONS, OVER 4 06/10/20 24 78950-FKDK SKIN LESIONS, OVER 4 09/17/19 25 11322-JICV SKIN LESIONS, OVER 4 03/11/20 24 38611-TBVI SKIN LESIONS, OVER 4 12/11/19 24 09053-PURQ SKIN LESIONS, OVER 4 09/11/19 24 76354-IMLZ SKIN LESIONS, OVER 4 06/08/20 23 08219-MQTU SKIN LESIONS, OVER 4 03/09/20 23 90365-ZTIN SKIN LESIONS, OVER 4 12/09/19 23 61431-QTQK SKIN LESIONS, OVER 4 09/09/19 23 96317-LXGO SKIN LESIONS, OVER 4 03/22/20 21 38794-CTXO SKIN LESIONS, OVER 4 12/11/19 21 35690-LLYC SKIN LESIONS, OVER 4 09/04/19 21 26798-EAZC SKIN LESIONS, OVER 4 06/08/20 20 86119-IZSQ SKIN LESIONS, OVER 4 12/03/19 22 37505-YSZU SKIN LESIONS, OVER 4 08/31/19 22 74796-GHHA SKIN LESIONS, OVER 4 03/03/20 22 82700-MZHH SKIN LESIONS, OVER 4 06/02/20 Next Appt Details Provider Name:Antonio Giles , 12/23/2024 10:30:00 AM, [address] [place], [address], Insurance Providers Payer Name Payer Address Payer Phone Subscriber Number Group Number Insured Name Patient Relationship to Insured Coverage Start Date Coverage End Date Medicare National [employer] [address] [place] [address] [id number] Kriss Jackson Self - patient [facility] the insured [facility] [address] [place] [address] [phone] [id number] Kriss Jackson Self - patient is the [...]
--- OUTSIDE RECORDS SUMMARY | 2024-10-16 11:01 | XMS_ITS ---
Author Organization [facility] Address [address] [place] [address] Care Team Providers Care Wigs Salesperson Name Role Phone Angel Pablo Primary Care Provider Antonio Giles Unavailable [phone] Allergies Allergen (clinical drug ingredient) Drug/Non Drug [...] Points 0 Interpretation Negative Vital Signs Height 7dx87ki in 09/16/2024 Weight 146 lbs 09/16/2024 BMI 30.51 kg/m2 09/16/2024 Blood pressure systolic 109 mm Hg 09/17/19 Blood pressure diastolic 50 mm Hg 025 Procedures Procedure Date Ordered Date Performed Result Body Sit e 14948-ZLVKXTC NAIL, 6 OR MORE 09/16/2024 N/A 94138-COAH SKIN LESIONS, OVER 4 09/16/2024 N/A Encounters Encounter Location Date Provider Diagnosis [facility] [address] [address] 09/16/2024 Antonio Giles Type 2 diabetes mellitus [...] days Pending Test Test Name Order Date 06396-VMKIKFG NAIL, 6 OR MORE 09/16/2024 60115-SCZP SKIN LESIONS, OVER 4 09/17/19 Next Appt Details Follow Up: prn, Reason: Provider Name:Antonio Giles , 12/23/2024 10:30:00 AM, [address] [place] [address], [address], Procedure Notes * Category Sub-Category Detail Notes [...] use of a nail nipper and/or dremel-type regrinder, to a more viable healthy nail plate [...] to maintain effectiveness in symptomatic relief - 27106 Keratoma Treatment Parring or Cutting o f [...] instrumentation by the physician of record - 06439 Progress Notes * Jose JACKSONOB:1950 ([age] yo F)Acc No.[id number]:09/16/2024 Progress Note Patient:Kriss HARRISON Provider:?Antonio Giles DPM :1950???Age:73 Y???Sex:Female D ate:09/16/2024 Address:[address] [place] [address], [place], [id number] Pcp:Angel Pablo Subjective: * Chief Complaints: * [...] yes, housework,shooping. ?Marital status: . 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 ???Drug/Alcohol:?AUDIT-C (Standard)?Did you have a drink containing [...] hivesCod eine: stomach upsetDoxycyclineDuloxetineCymbaltayes[Allergies Verified] Objective: * Vitals:?Ht:1tc60ns, Wt:146, BMI:30.51, Shoe size:7, BP:109/50mm Hg, BS:77, [...] use of a nail nipper and/or dremel-type regrinder, to a more viable healthy nail plate [...] to maintain effectiveness in symptomatic relief - 92239.?Keratoma Treatment:?Parring or Cutting of Benign Hyperkeratotic Lesion(s)?(-57) [...] instrumentation by the physician of record - 67161.? * Procedure Codes:?02161 DEBRI DE NAIL, 6 OR MORE, Modifiers: XS 42927 TRIM SKIN LESIONS, OVER 4, Modifiers: XS [...] Giles DPM Date:?2024 Generated for Shanique alatorre/Lloyd/eTransmitting on:?10/16/2024 11:01 AM EDT History and Physical Notes * HPI (History of Present Illness) Category Sub-Category Detail Notes Category Not es Skin problems Nature: dryness , scaling Location: B/L Duration: several days Course: worse Treatments: At Risk footcare Pt States Last PCP Visit: Date: [facility] States to have vein surgery to Left [...]
== END 2024-10-16 10:19 | disposition home or self-care (01) ==
LOC: HO.HVS 09:50
PROVIDERS: PCP Internal Medicine; Visit Provider Surgery Vascular Surgery
DX: I83.12 Varicose veins of left lower extremity with inflammation (principal)
CPT/HCPCS: 99214

== ENCOUNTER → 2024-10-16 09:49 | Outpatient (BNVA) | payer MEDICARE, SELFPAY | PROVIDERS: PCP Internal Medicine; Visit Provider Surgery Vascular Surgery | DX: I83.12 Varicose veins of left lower extremity with inflammation (principal) | CPT/HCPCS: 99212 ==

== ENCOUNTER → 2024-10-28 09:22 | Outpatient (REF) | payer MEDICARE, SELFPAY ==
--- NOTE | ~2024-10-28 | NM_ITS ---
Lexiscan Myocardial perfusion study Indication: Ventricular tachycardia Technique: The patient was brought in for a Lexiscan perfusion study on 10/28/2024 and was injected 0.4 mg of Lexiscan intravenously. Within a minute of this injection 25 mCi of sestamibi was given intravenously. Images were obtained using the SPECT gamma camera interlaced with the gating device. Images were obtained in supine position. Resting perfusion study was performed on 10/29/2024. Patient was administered 25 mCi of sestamibi intravenously at rest. Images were then obtained in supine position. Total DLP 171 mGy-cm. Images were processed with the software and compared side to side in short axis, horizontal long axis and vertical long axis views. Findings: Raw aquisition reviewed. Arms by the patient's side. The stress perfusion study showed diminished tracer uptake in the distal part of anteroseptal and inferolateral wall. With CT attenuation correction, the distal anteroseptal uptake appears worse. Could be all technical. The gated study shows diminished LV systolic function with calculated LVEF of 42%. LV cavity is normal in size. The gated study shows normal wall thickening and contraction of segments. Resting study shows no significant perfusion abnormality. Gating at rest reveals normal wall motion with ejection fraction at 38%. The findings are consistent with small reversible perfusion defect in the distal part of inferolateral wall; fixed defect in the distal anteroseptal wall. NM/NM rodolfo perf SPECT rest & str Impression: 1. Myocardial perfusion imaging study shows small fixed defect in the distal anteroseptal wall; small reversible defect in the distal inferolateral wall. Possibly represent small areas of ischemia/nontransmural infarct. Can also be artifactual. Similar finding reported on prior study. 2. Gated LVEF is 42% during stress and 38% during rest. Correlate with echocardiogram. Visually appears somewhat higher. 3. Transient ischemic dilatation not present. EKG component of the test reported separately. Electronically signed by: Mayank Beyer MD 10/29/2024 03:51 PM EDT RP
--- NOTE | 2024-10-28 09:25 | CA_ITS ---
Acquisition Time: 2024-10-28 09:32:59 Total Exercise Time: 00:02:00 Test Indications: I47.29 Medications: SEE H&P Protocol: LEXISCAN Max HR: 80 BPM 54% of Pred: 147 BPM Max BP: 124/70 mmHG Max Work Load: 1.0 METS Pharmacological stress test with Lexiscan while pt swings her legs in the chair, with reports of severe SOB, no chest pain, without any arrythmias, with normotensive response to injection. Nondiagnostic EKG for ischemia. In recovery, pt treated with IVP Aminophylline 75 mg to reverse Lexiscan after which pt feeling back to baseline. Nuclear images pending. Test reviewed with Dr. Beyer. Referred By: Jose Perez Electronically Signed By: Cresencio Crespo
--- OUTSIDE RECORDS SUMMARY | 2024-10-28 10:16 | XMS_ITS ---
Author Organization [facility] Address [address] [place] [address] Care Team Providers Care Director Channel Name Role Phone Angel Pablo Primary Care Provider Antonio Giles Unavailable [phone] REASON FOR VISIT Foot swelling Encounters Encounter Location Date Provider Diagnosis [address] [address] 09/26/2024 Antonio Giles Plan Of Treatment Next Appt Details Provider Name:Antonio Giles , 12/23/2024 10:30:00 AM, [address] [place], [address], Progress Notes * Jose JACKSONOB:1950 ([age] yo F)Acc No.[id number]:09/26/2024 Patient:?Kriss JACKSON :1950???Age:73 Y???Sex:Female Address:[address] [place] [address] [place], [address] * true * Date:? Generated for Printi ng/Famariang/eTransmitting on:?10/28/2024 10:15 AM EDT
--- OUTSIDE RECORDS SUMMARY | 2024-10-28 10:17 | XMS_ITS | Data Portability ---
Author Organization [facility], [facility] Address [address] [place] [address] Assessment Encounter Date Assessment Date Assessment LastModified by Organization Details LastModified Time 04/30/2018 04/30/2018 Blood pressure i s at goal with which is below 140/90 for a diabetic. She is looking for alternative activities in her half-way. Her A1c of 5.5% shows excellent diabetes control (goal below 7.5-8%). She will continue with [facility] for that. [...] to what she tells us from her field underwriter, and she will try and get us those records. He continues with dish carrier and on prednisone. She will follow-up in [...] bp more regularly 3) Patient regularly sees field underwriter who will check A1C and adjust rx [...] with new provider (will be changing to [facility] for convenience) 9) RA stable; may [...] Lab TSH, serum or plasma 2017 018 [facility], [address] [place] [address], [id number], 8 16:26:11 CBC 2017 018 [facility], [address] [place], [address], 8 14:43:05 Referral None recorded. Procedures None recorded. Surgeries None recorded. Imaging None recorded. Medication Orders cefpodoxim e 200 mg tablet 2018 019 nikki [id number], [address], [place], [id number], 9 12:53:28 atorvastat in 20 mg tablet 2018 019 [facility] #[id number], [address], [place], [id number], 9 16:34:01 lidocaine 5 % topical patch 2018 019 INTERFACE [facility] #[id number], [address], [place], [id number], 9 13:32:45 omeprazole 20 mg capsule,de layed release 2018 019 [facility] #[id number], [address], [place], [id number], 9 16:34:01 lisinopril 10 mg-hydroch lorothiazi de 12.5 mg tablet 2018 019 [facility] #[id number], [address], [place], [id number], 9 16:34:01 cefpodoxim e 200 mg tablet 2018 019 [facility] #[id number], [address], [place], [id number], 9 14:47:44 Patient TargetsNo targets recorded. Patient Instructions Encounter Date Encounter Id Patient Instructions Last Modified By Organization Details Last Modified Time 04/30/2018 [id number] high cholesterol lifestyle changes nikki Not available 04/30/2018 11:19:19 high blood pressure: care instructions nikki Not available 04/30/2018 11:19:19 learning about high blood pressure nikki Not available 04/30/2018 11:19:19 asthma handout / teaching nikki Not available 04/30/2018 11:19:19 asthma action plan nikki Not availab le 04/30/2018 11:19:[address] an ages 0-11 yrs g[place] nikki Not available 04/30/2018 11:19:19 CCM: The provide r and patient discussed the Chronic Care Management program, including the services provided, and any fees associated with them. michele Not available 04/30/2018 11:32:47 08/29/2018 [id number] My Health To Do List Specific Analgesia [...] medication. spise Not available 08/29/2018 11:18:25 12/31/2018 [id number] After a discussi on of treatment options, [...] Patie nts with Diabe sarath Not Available [address], [address], 04/26/2018 15:36:01 04/26/20 18 04/26/2018 HbA1c (hemo globi n A1c), blood estimated average glucose 111.2 mg/dL Not Available [address], [address], 04/26/2018 15:36:01 04/26/20 18 04/26/2018 micro album in, urine microalbumin 39.3 mg/L 1.3-20 .0 high Not Available [address], [address], 04/26/2018 15:37:51 04/26/20 18 04/26/2018 micro album in, urine creatinine urine 193.6 mg/dL 30.0-1 25.0 high Not Available [address], [address], 04/26/2018 15:37:51 04/26/20 18 04/26/2018 micro album in, urine microalb/cre at ratio 20.3 mg/g_ creat 0.0-29 .0 Not Available [address], [address], 04/26/2018 15:37:51 04/26/20 18 04/26/2018 BMP, serum or plasm a glucose 74 mg/dL 70-100 Not Available [address], [address], 04/26/2018 16:07:42 04/26/20 18 04/26/2018 BMP, serum or plasm a BUN 16 mg/dL 7-18 Not Available [address], [address], 04/26/2018 16:07:42 04/26/20 18 04/26/2018 BMP, serum or plasm a creatinine 1.1 mg/dL 0.8-1. 3 Not Available [address], [address], 04/26/2018 16:07:42 04/26/20 18 04/26/2018 BMP, serum or plasm a B/C 14.5 ratio Not Available [address], [address], 04/26/2018 16:07:42 04/26/20 18 04/26/2018 BMP, serum or plasm a GFR -non 55.5 mL/mi n Recom zhane d GFR by the Natio nal Kidne y Found ation >60 mL/mi n/1.7 3m2 - Patricia l <60 mL/mi n/1.7 3m2 - Chron ic Kidne y Disea se <15 mL/mi n/1.7 3m2 - Kidne y Failu re Not Available [address], [address], 04/26/2018 16:07:42 04/26/20 18 04/26/2018 BMP, serum or plasm a GFR - if 63.8 mL/mi n For Afric an Ameri can patie nts: Resul ts Multi plied by 1.21 Not Available [address], [address], 04/26/2018 16:07:42 04/26/20 18 04/26/2018 BMP, serum or plasm a sodium 143 mmol/ L 136-14 5 Not Available [address], [address], 04/26/2018 16:07:42 04/26/20 18 04/26/2018 BMP, serum or plasm a potassium 4.6 mmol/ L 3.5-5. 1 Not Available [address], [address], 04/26/2018 16:07:42 04/26/20 18 04/26/2018 BMP, serum or plasm a chloride 105 mmol/ L 96-107 Not Available [address], [address], 04/26/2018 16:07:42 04/26/20 18 04/26/2018 BMP, serum or plasm a anion gap 11.1 5.0-15 .0 Not Available [address], [address], 04/26/2018 16:07:42 04/26/20 18 04/26/2018 BMP, serum or plasm a CO2 27 mmol/ L 21-32 Not Available [address], [address], 04/26/2018 16:07:42 04/26/20 18 04/26/2018 BMP, serum or plasm a calcium 9.2 mg/dL 8.5-10 .3 Not Available [address], [address], 04/26/2018 16:07:42 04/26/20 18 04/26/2018 lipid panel , serum cholesterol 106 mg/dL <200 mg/dl Avelino able 200-2 39 mg/dl Borde rline High >240 mg/dl High Not Available [address], [address], 04/26/2018 16:07:44 04/26/20 18 04/26/2018 lipid panel , serum triglyceride s 184 mg/dL <150 mg/dL Patricia l 150-1 99 mg/dL Borde rline High 200-4 99 mg/dL High >500 mg/dL Very High Not Available [address], [address], 04/26/2018 16:07:44 04/26/20 18 04/26/2018 lipid panel , serum direct HDL 39 mg/dL <40 mg/dl - Major Risk for CHD >60 mg/dl - Negat jeannette Risk for CHD Not Available [address], [address], 04/26/2018 16:07:44 04/26/20 18 04/26/2018 LDL, calcu [...] r is not martha baker. Not Available [address], [address], 04/26/2018 16:07:45 04/26/20 18 04/26/2018 AST/S GOT (aspa rtate amino trans feras e), serum or plasm a AST 18 U/L 15-37 Not Available [address], [address], 04/26/2018 16:25:23 04/26/20 18 04/26/2018 ALT (karen ine amino trans feras e), serum or plasm a ALT 26 U/L 30-65 low Not Available [address], [address], 04/26/2018 16:25:24 04/30/20 18 04/30/2018 CBC WBC 8.9 K/? ? ?L 4.0-10 .0 Not Available [address], [address], 04/30/2018 14:43:04 04/30/20 18 04/30/2018 CBC RBC 4.13 M/? ? ?L 3.93-5 .22 Not Available [address], [address], 04/30/2018 14:43:04 04/30/20 18 04/30/2018 CBC HGB 11.9 g/dL 11.2-1 5.7 Not Available [address], [address], 04/30/2018 14:43:04 04/30/20 18 04/30/2018 CBC HCT 35.9 % 34.1-4 4.9 Not Available [address], [address], 04/30/2018 14:43:04 04/30/20 18 04/30/2018 CBC MCV 86.9 ? ? ?L 79.4-9 4.8 Not Available [address], [address], 04/30/2018 14:43:04 04/30/20 18 04/30/2018 CBC MCH 28.8 pg 25.6-3 2.2 Not Available [address], [address], 04/30/2018 14:43:04 04/30/20 18 04/30/2018 CBC MCHC 33.1 g/dL 32.2-3 5.5 Not Available [address], [address], 04/30/2018 14:43:04 04/30/20 18 04/30/2018 CBC plt 290.0 K/? ? ?L 182.0- 369.0 Not Available [address], [address], 04/30/2018 14:43:04 04/30/20 18 04/30/2018 CBC MPV 11.7 9.4-12 .3 Not Available [address], [address], 04/30/2018 14:43:04 04/30/20 18 04/30/2018 CBC neut% 78.8 % 34.0-7 1.1 high Not Available [address], [address], 04/30/2018 14:43:04 04/30/20 18 04/30/2018 CBC neut# 7.0 1.6-6. 1 high Not Available [address], [address], 04/30/2018 14:43:04 04/30/20 18 04/30/2018 CBC lymph % 14.1 % 19.3-5 1.7 low Not Available [address], [address], 04/30/2018 14:43:04 04/30/20 18 04/30/2018 CBC lymph # 1.3 K/? ? ?L 1.2-3. 7 Not Available [address], [address], 04/30/2018 14:43:04 04/30/20 18 04/30/2018 CBC mono% 5.2 % 4.7-12 .5 Not Available [address], [address], 04/30/2018 14:43:04 04/30/20 18 04/30/2018 CBC mono# 0.5 0.2-0. 6 Not Available [address], [address], 04/30/2018 14:43:04 04/30/20 18 04/30/2018 CBC eo% 1.4 % 0.7-5. 8 Not Available [address], [address], 04/30/2018 14:43:04 04/30/20 18 04/30/2018 CBC eo# 0.1 0.0-0. 4 Not Available [address], [address], 04/30/2018 14:43:04 04/30/20 18 04/30/2018 CBC baso% 0.5 % 0.1-1. 2 Not Available [address], [address], 04/30/2018 14:43:04 04/30/20 18 04/30/2018 CBC baso# 0.0 0.0-0. 1 Not Available [address], [address], 04/30/2018 14:43:04 04/30/20 18 04/30/2018 CBC RDW-CV 14.0 % 11.7-1 4.4 Not Available [address], [address], 04/30/2018 14:43:04 04/30/20 18 04/30/2018 TSH, serum or plasm a TSH 2.29 uIU/m L 0.50-6 .00 The Ameri can [employer] ge of Endoc rinol ogy and Ameri can Thyro id Assoc iatio n recom mend goal TSH value s betwe en 0.4-4 .0 mIU/m L. Not Available [address], [address], 04/30/2018 16:26:11 06/12/20 18 06/12/2018 CBC w/ auto diff WBC 13.71 K/uL 3.40-1 1.20 high Not Available [facility] [address] [place] [address], [address], 06/12/2018 14:19:14 06/12/20 18 06/12/2018 CBC w/ auto diff RBC 4.19 M/uL 3.80-4 .80 Not Available [facility] [address] [place] [address], [address], 06/12/2018 14:19:14 06/12/20 18 06/12/2018 CBC w/ auto diff HGB 12.0 g/dL 12.0-1 5.0 Not Available [facility] [address] [place] [address], [address], 06/12/2018 14:19:14 06/12/20 18 06/12/2018 CBC w/ auto diff HCT 35.1 % 36.0-4 6.0 low Not Available [facility]) [address] [place] [address], [address], 06/12/2018 14:19:14 06/12/20 18 06/12/2018 CBC w/ auto diff plt 285 K/uL 130-40 0 Not Available [facility]) [address] [place], [address], 06/12/2018 14:19:14 06/12/20 18 06/12/2018 CBC w/ auto diff MCV 83.8 fL 79.0-9 8.0 Not Available [facility]) [address] [place], [address], 06/12/2018 14:19:14 06/12/20 18 06/12/2018 CBC w/ auto diff MCH 28.6 pg 27.0-3 4.8 Not Available [facility] ([facility]) [address] [place], [address], 06/12/2018 14:19:14 06/12/20 18 06/12/2018 CBC w/ auto diff MCHC 34.2 g/dL 31.5-3 6.0 Not Available [facility] [address] [place], [address], 06/12/2018 14:19:14 06/12/20 18 06/12/2018 CBC w/ auto diff RDW 13.2 % 10.8-1 4.6 Not Available [facility] ([facility] [address] [place], [address], 06/12/2018 14:19:14 06/12/20 18 06/12/2018 CBC w/ auto diff MPV 11.6 fL 9.4-12 .4 Not Available [facility] [address] [place], [address], 06/12/2018 14:19:14 06/12/20 18 06/12/2018 CBC w/ auto diff NRBC 0.00 /100_ WBCs 0.00 Not Available [facility] [address] [place], [address], 06/12/2018 14:19:14 06/12/20 18 06/12/2018 CBC w/ auto diff absolute NRBC 0.00 K/uL 0.00 Not Available [facility] [address] [place], [address], 06/12/2018 14:19:14 06/12/20 18 06/12/2018 CBC w/ auto diff diff method Auto Not Available [facility] [address] [place], [address], 06/12/2018 14:19:14 06/12/20 18 06/12/2018 CBC w/ auto diff neuts 84.8 % 45.30- 77.70 high Not Available [facility]) [address] [place] [address], [address], 06/12/2018 14:19:14 06/12/20 18 06/12/2018 CBC w/ auto diff lymphs 9.0 % 12.30- 39.70 low Not Available [facility] [address] [place], [address], 06/12/2018 14:19:14 06/12/20 18 06/12/2018 CBC w/ auto diff monos 4.2 % 4.10-1 2.80 Not Available [facility] [address] [place], [address], 06/12/2018 14:19:14 06/12/20 18 06/12/2018 CBC w/ auto diff eos 0.9 % 0-7.2 Not Available [facility] [address] [place], [address], 06/12/2018 14:19:14 06/12/20 18 06/12/2018 CBC w/ auto diff basos 0.7 % 0-2.80 Not Available [facility] [address] [place], [address], 06/12/2018 14:19:14 06/12/20 18 06/12/2018 CBC w/ auto diff granulocytes , immature (%) 0.4 % 0.0-0. 9 Not Available [facility] [address] [place], [address], 06/12/2018 14:19:14 06/12/20 18 06/12/2018 CBC w/ auto diff absolute neuts 11.63 K/uL 1.40-7 .70 high Not Available [facility] [address] [place], [address], 06/12/2018 14:19:14 06/12/20 18 06/12/2018 CBC w/ auto diff absolute lymphs 1.24 K/uL 0.60-3 .20 Not Available [facility] [address] [place] [address], [address], 06/12/2018 14:19:14 06/12/20 18 06/12/2018 CBC w/ auto diff absolute monos 0.57 K/uL 0.11-0 .59 Not Available [facility] [address] [place] [address], [address], 06/12/2018 14:19:14 06/12/20 18 06/12/2018 CBC w/ auto diff absolute eos 0.13 K/uL 0.01-0 .50 Not Available [facility] [address] [place] [address], [address], 06/12/2018 14:19:14 06/12/20 18 06/12/2018 CBC w/ auto diff absolute basos 0.09 K/uL 0.00-0 .08 high Not Available [facility] [address] [place] [address], [address], 06/12/2018 14:19:14 06/12/20 18 06/12/2018 CBC w/ auto diff granulocytes , immature 0.05 K/uL 0.00-0 .05 Not Available [facility] [address] [place], [address], 06/12/2018 14:19:14 06/12/20 18 06/12/2018 CMP, serum or plasm a sodium 139 mmol/ L 133-14 6 Not Available [facility] [address] [place], [address], 06/12/2018 15:13:28 06/12/20 18 06/12/2018 CMP, serum or plasm a potassium 4.6 mmol/ L 3.3-5. 1 Not Available [facility] [address] [place] [address], [address], 06/12/2018 15:13:28 06/12/20 18 06/12/2018 CMP, serum or plasm a chloride 99 mmol/ L 96-108 Not Available [facility] [address] [place] [address], [address], 06/12/2018 15:13:28 06/12/20 18 06/12/2018 CMP, serum or plasm a CO2 28 mmol/ L 21-35 Not Available [facility] [address] [place], [address], 06/12/2018 15:13:28 06/12/20 18 06/12/2018 CMP, serum or plasm a BUN 22 mg/dL 6-19 high Not Available [facility] [address] [place], [address], 06/12/2018 15:13:28 06/12/20 18 06/12/2018 CMP, serum or plasm a creatinine 0.90 mg/dL 0.5-1. 5 Not Available [facility] [address] [place], [address], 06/12/2018 15:13:28 06/12/20 18 06/12/2018 CMP, serum or plasm a glucose 104 mg/dL 70-99 high Not Available [facility] [address] [place], [address], 06/12/2018 15:13:28 06/12/20 18 06/12/2018 CMP, serum or plasm a albumin 4.4 g/dL 3.9-4. 8 Not Available [facility] [address] [place], [address], 06/12/2018 15:13:28 06/12/20 18 06/12/2018 CMP, serum or plasm a total protein 6.9 g/dL 6.5-8. 0 Not Available [facility] [address] [place], [address], 06/12/2018 15:13:28 06/12/20 18 06/12/2018 CMP, serum or plasm a calcium 9.3 mg/dL 8.4-10 .3 Not Available [facility] [address] [place], [address], 06/12/2018 15:13:28 06/12/20 18 06/12/2018 CMP, serum or plasm a alkaline phosphatase 82 U/L 39-117 Not Available [facility] [address] [place], [address], 06/12/2018 15:13:28 06/12/20 18 06/12/2018 CMP, serum or plasm a total bilirubin 0.4 mg/dL 0.0-1. 2 Not Available [facility] [address] [place], [address], 06/12/2018 15:13:28 06/12/20 18 06/12/2018 CMP, serum or plasm a AST 16 U/L 0-37 Not Available [facility] [address] [place], [address], 06/12/2018 15:13:28 06/12/20 18 06/12/2018 CMP, serum or plasm a ALT 18 U/L 0-40 Not Available [facility] [address] [place], [address], 06/12/2018 15:13:28 06/12/20 18 06/12/2018 CMP, serum or plasm a globulin 2.5 g/dL 1-4.8 Not Available [facility] [address] [place] [address], [address], 06/12/2018 15:13:28 06/12/20 18 06/12/2018 CMP, serum or plasm a eGFR 66 mL/mi n/1.7 3m2 >59 If patie nt is black , multi ply resul t by 1.159 . Estim ated glome rular filtr ation rate calcu lated using the CKD-E PI equat ion. Not Available [facility] [address] [place] [address], [address], 06/12/2018 15:13:28 06/12/20 18 06/12/2018 CMP, serum or plasm a anion gap 17 mmol/ L 10-20 Not Available [facility] [address] [place] [address], [address], 06/12/2018 15:13:28 06/12/20 18 06/12/2018 C-andra ctive prote in, quant itati ve, serum or plasm a C reactive protein 3.3 mg/L 0.0-4. 0 Not Available [facility] [address] [place], [address], 06/12/2018 15:13:30 06/12/20 18 06/13/2018 HBsAg (hepa titis B surfa ce Ag), serum HBV surface antigen Negati ve negati ve Not Available [facility] [address] [place] [address], [address], 06/13/2018 10:03:22 06/12/20 18 06/13/2018 hepat itis B virus core Ab, quali tativ e, serum hep B core Ab, tot Negati ve negati ve Not Available [facility]) [address] [place] [address], [address], 06/13/2018 10:03:24 06/12/20 18 06/14/2018 tb (M [...] level <0.35 IU/mL . Not Available [facility] [address] [place], [address], 06/14/2018 19:02:21 06/12/20 18 06/14/2018 tb (M tuber culos is), ifn-g deonte sai , blood TB1 Ag minus nil 0.11 IU/mL Not Available [facility]) [address] [place] [address], [address], 06/14/2018 19:02:21 06/12/20 18 06/14/2018 tb (M tuber culos is), ifn-g deonte sai , blood TB2 Ag minus nil 0.00 IU/mL Not Available [facility]) [address] [place], [address], 06/14/2018 19:02:21 06/12/20 18 06/14/2018 tb (M tuber culos is), ifn-g deonte sai , blood mitogen minus nil 2.75 IU/mL Not Available [facility]) [address] [place] [address], [address], 06/14/2018 19:02:21 06/12/20 18 06/14/2018 tb (M tuber culos is), ifn-g deonte sai , blood nil result 0.01 IU/mL Not Available [facility] ([facility]) [address] [place] [address], [address], 06/14/2018 19:02:21 10/18/19 19 10/17/2018 CBC w/ auto diff WBC 10.03 K/uL 3.40-1 1.20 Not Available [facility]) [address] [place] [address], [address], 10/17/2018 15:41:19 10/18/19 19 10/17/2018 CBC w/ auto diff RBC 4.02 M/uL 3.80-4 .80 Not Available [facility]) [address] [place] [address], [address], 10/17/2018 15:41:19 10/18/19 19 10/17/2018 CBC w/ auto diff HGB 11.9 g/dL 12.0-1 5.0 low Not Available [facility]) [address] [place] [address], [address], 10/17/2018 15:41:19 10/18/19 19 10/17/2018 CBC w/ auto diff HCT 35.2 % 36.0-4 6.0 low Not Available [facility]) [address] [place] [address], [address], 10/17/2018 15:41:19 10/18/19 19 10/17/2018 CBC w/ auto diff plt 236 K/uL 130-40 0 Not Available [facility] ([facility]) [address] [place], [address], 10/17/2018 15:41:19 10/18/19 19 10/17/2018 CBC w/ auto diff MCV 87.6 fL 79.0-9 8.0 Not Available [facility] ([facility]) [address] [place], [address], 10/17/2018 15:41:19 10/18/19 19 10/17/2018 CBC w/ auto diff MCH 29.6 pg 27.0-3 4.8 Not Available [facility] ([facility]) [address] [place], [address], 10/17/2018 15:41:19 10/18/19 19 10/17/2018 CBC w/ auto diff MCHC 33.8 g/dL 31.5-3 6.0 Not Available [facility] ([facility]) [address] [place], [address], 10/17/2018 15:41:19 10/18/1910/17/2018 CBC w/ auto diff RDW 12.9 % 10.8-1 4.6 Not Available [facility] ([facility]) [address] [place], [address], 10/17/2018 15:41:19 10/18/1910/17/2018 CBC w/ auto diff MPV 11.0 fL 9.4-12 .4 Not Available [facility] ([facility]) [address] [place], [address], 10/17/2018 15:41:19 10/18/1910/17/2018 CBC w/ auto diff NRBC 0.00 /100_ WBCs 0.00 Not Available [facility] ([facility]) [address] [place], [address], 10/17/2018 15:41:19 10/18/19 19 10/17/2018 CBC w/ auto diff absolute NRBC 0.00 K/uL 0.00 Not Available [facility] ([facility]) [address] [place], [address], 10/17/2018 15:41:19 10/18/19 19 10/17/2018 CBC w/ auto diff diff method Auto Not Available [facility] ([facility] [address] [place], [address], 10/17/2018 15:41:19 10/18/19 19 10/17/2018 CBC w/ auto diff neuts 70.1 % 45.30- 77.70 Not Available [facility] ([facility]) [address] [place], [address], 10/17/2018 15:41:19 10/18/19 19 10/17/2018 CBC w/ auto diff lymphs 18.2 % 12.30- 39.70 Not Available [facility] ([facility]) [address] [place], [address], 10/17/2018 15:41:19 10/18/19 19 10/17/2018 CBC w/ auto diff monos 7.4 % 4.10-1 2.80 Not Available [facility] ([facility] [address] [place], [address], 10/17/2018 15:41:19 10/18/19 19 10/17/2018 CBC w/ auto diff eos 2.8 % 0-7.2 Not Available [facility] ([facility]) [address] [place], [address], 10/17/2018 15:41:19 10/18/19 19 10/17/2018 CBC w/ auto diff basos 1.1 % 0-2.80 Not Available [facility] ([facility] [address] [place], [address], 10/17/2018 15:41:19 10/18/19 19 10/17/2018 CBC w/ auto diff granulocytes , immature (%) 0.4 % 0.0-0. 9 Not Available [facility] ([facility] [address] [place], [address], 10/17/2018 15:41:19 10/18/19 19 10/17/2018 CBC w/ auto diff absolute neuts 7.03 K/uL 1.40-7 .70 Not Available [facility] ([facility] [address] [place], [address], 10/17/2018 15:41:19 10/18/19 19 10/17/2018 CBC w/ auto diff absolute lymphs 1.83 K/uL 0.60-3 .20 Not Available [facility] ([facility] [address] [place], [address], 10/17/2018 15:41:19 10/18/19 19 10/17/2018 CBC w/ auto diff absolute monos 0.74 K/uL 0.11-0 .59 high Not Available [facility] ([facility]) [address] [place], [address], 10/17/2018 15:41:19 10/18/19 19 10/17/2018 CBC w/ auto diff absolute eos 0.28 K/uL 0.01-0 .50 Not Available [facility] ([facility]) [address] [place], [address], 10/17/2018 15:41:19 10/18/19 19 10/17/2018 CBC w/ auto diff absolute basos 0.11 K/uL 0.00-0 .08 high Not Available [facility]) [address] [place] [address], [address], 10/17/2018 15:41:19 10/18/19 19 10/17/2018 CBC w/ auto diff granulocytes , immature 0.04 K/uL 0.00-0 .05 Not Available [facility] ([facility] [address] [place], [address], 10/17/2018 15:41:19 10/18/19 19 10/17/2018 eryth rocyt e sedim entat ion rate by prema gonzalez d ESR 5 mm/h 0-30 Not Available [facility] ([facility]) [address] [place], [address], 10/17/2018 16:22:09 10/18/19 19 10/17/2018 CMP, serum or plasm a sodium 143 mmol/ L 133-14 6 Not Available [facility] ([facility]) [address] [place], [address], 10/17/2018 16:48:20 10/18/19 19 10/17/2018 CMP, serum or plasm a potassium 4.3 mmol/ L 3.3-5. 1 Not Available [facility] ([facility]) [address] [place], [address], 10/17/2018 16:48:20 10/18/19 19 10/17/2018 CMP, serum or plasm a chloride 104 mmol/ L 96-108 Not Available [facility] (Outpatient[facility] [address] [place], [address], 10/17/2018 16:48:20 10/18/19 19 10/17/2018 CMP, serum or plasm a CO2 26 mmol/ L 21-35 Not Available [facility] (Outpatient[facility] [address] [place], [address], 10/17/2018 16:48:20 10/18/19 19 10/17/2018 CMP, serum or plasm a BUN 28 mg/dL 6-19 high Not Available [facility] (Outpatient) [address] [place], [address], 10/17/2018 16:48:20 10/18/19 19 10/17/2018 CMP, serum or plasm a creatinine 1.00 mg/dL 0.5-1. 5 Not Available [facility] [address] [place], [address], 10/17/2018 16:48:20 10/18/19 19 10/17/2018 CMP, serum or plasm a glucose 127 mg/dL 70-99 high Not Available [facility] [address] [place], [address], 10/17/2018 16:48:20 10/18/19 19 10/17/2018 CMP, serum or plasm a albumin 4.3 g/dL 3.9-4. 8 Not Available [facility] [address] [place], [address], 10/17/2018 16:48:20 10/18/19 19 10/17/2018 CMP, serum or plasm a total protein 6.9 g/dL 6.5-8. 0 Not Available [facility] [address] [place], [address], 10/17/2018 16:48:20 10/18/19 19 10/17/2018 CMP, serum or plasm a calcium 9.5 mg/dL 8.4-10 .3 Not Available [facility] [address] [place], [address], 10/17/2018 16:48:20 10/18/19 19 10/17/2018 CMP, serum or plasm a alkaline phosphatase 74 U/L 39-117 Not Available [facility] (Outpatient) [address] [place], [address], 10/17/2018 16:48:20 10/18/19 19 10/17/2018 CMP, serum or plasm a total bilirubin 0.3 mg/dL 0.0-1. 2 Not Available [facility] [address] [place], [address], 10/17/2018 16:48:20 10/18/19 19 10/17/2018 CMP, serum or plasm a AST 19 U/L 0-37 Not Available [facility] [address] [place], [address], 10/17/2018 16:48:20 10/18/19 19 10/17/2018 CMP, serum or plasm a ALT 17 U/L 0-40 Not Available [facility] [address] [place], [address], 10/17/2018 16:48:20 10/18/19 19 10/17/2018 CMP, serum or plasm a globulin 2.6 g/dL 1-4.8 Not Available [facility] [address] [place] [address], [address], 10/17/2018 16:48:20 10/18/19 19 10/17/2018 CMP, serum or plasm a eGFR 58 mL/mi n/1.7 3m2 >59 low If patie nt is black , multi ply resul t by 1.159 . Estim ated glome rular filtr ation rate calcu lated using the CKD-E PI equat ion. Not Available [facility] [address] [place] [address], [address], 10/17/2018 16:48:20 10/18/19 19 10/17/2018 CMP, serum or plasm a anion gap 17 mmol/ L 10-20 Not Available [facility] [address] [place] [address], [address], 10/17/2018 16:48:20 10/18/19 19 10/17/2018 C-andra ctive prote in, quant itati ve, serum or plasm a C reactive protein 6.2 mg/L 0.0-4. 0 high Not Available [facility] [address] [place], [address], 10/17/2018 16:48:21 01/17/20 19 01/16/2019 CBC w/ auto diff WBC 10.98 K/uL 3.40-1 1.20 Not Available [facility] [address] [place], [address], 01/16/2019 16:23:22 01/17/20 19 01/16/2019 CBC w/ auto diff RBC 4.04 M/uL 3.80-4 .80 Not Available [facility] [address] [place], [address], 01/16/2019 16:23:22 01/17/20 19 01/16/2019 CBC w/ auto diff HGB 11.9 g/dL 12.0-1 5.0 low Not Available [facility] [address] [place], [address], 01/16/2019 16:23:22 01/17/20 19 01/16/2019 CBC w/ auto diff HCT 35.3 % 36.0-4 6.0 low Not Available [facility] [address] [place], [address], 01/16/2019 16:23:22 01/17/20 19 01/16/2019 CBC w/ auto diff plt 274 K/uL 130-40 0 Not Available [facility] [address] [place], [address], 01/16/2019 16:23:22 01/17/20 19 01/16/2019 CBC w/ auto diff MCV 87.4 fL 79.0-9 8.0 Not Available [facility] [address] [place], [address], 01/16/2019 16:23:22 01/17/20 19 01/16/2019 CBC w/ auto diff MCH 29.5 pg 27.0-3 4.8 Not Available [facility] [address] [place], [address], 01/16/2019 16:23:22 01/17/20 19 01/16/2019 CBC w/ auto diff MCHC 33.7 g/dL 31.5-3 6.0 Not Available [facility] [address] [place], [address], 01/16/2019 16:23:22 01/17/20 19 01/16/2019 CBC w/ auto diff RDW 13.3 % 10.8-1 4.6 Not Available [facility] [address] [place], [address], 01/16/2019 16:23:22 01/17/20 19 01/16/2019 CBC w/ auto diff MPV 11.7 fL 9.4-12 .4 Not Available [facility] [address] [place], [address], 01/16/2019 16:23:22 01/17/20 19 01/16/2019 CBC w/ auto diff NRBC 0.00 /100_ WBCs 0.00 Not Available [facility] [address] [place], [address], 01/16/2019 16:23:22 01/17/20 19 01/16/2019 CBC w/ auto diff absolute NRBC 0.00 K/uL 0.00 Not Available [facility] [address] [place], [address], 01/16/2019 16:23:22 01/17/20 19 01/16/2019 CBC w/ auto diff diff method Auto Not Available [facility] [address] [place], [address], 01/16/2019 16:23:22 01/17/20 19 01/16/2019 CBC w/ auto diff neuts 81.4 % 45.30- 77.70 high Not Available [facility] [address] [place], [address], 01/16/2019 16:23:22 01/17/20 19 01/16/2019 CBC w/ auto diff lymphs 10.6 % 12.30- 39.70 low Not Available [facility] [address] [place] [address], [address], 01/16/2019 16:23:22 01/17/20 19 01/16/2019 CBC w/ auto diff monos 4.7 % 4.10-1 2.80 Not Available [facility] [address] [place] [address], [address], 01/16/2019 16:23:22 01/17/20 19 01/16/2019 CBC w/ auto diff eos 2.0 % 0-7.2 Not Available [facility] [address] [place] [address], [address], 01/16/2019 16:23:22 01/17/20 19 01/16/2019 CBC w/ auto diff basos 1.0 % 0-2.80 Not Available [facility] [address] [place] [address], [address], 01/16/2019 16:23:22 01/17/20 19 01/16/2019 CBC w/ auto diff granulocytes , immature (%) 0.3 % 0.0-0. 9 Not Available [facility] [address] [place] [address], [address], 01/16/2019 16:23:22 01/17/20 19 01/16/2019 CBC w/ auto diff absolute neuts 8.94 K/uL 1.40-7 .70 high Not Available [facility] [address] [place] [address], [address], 01/16/2019 16:23:22 01/17/20 19 01/16/2019 CBC w/ auto diff absolute lymphs 1.16 K/uL 0.60-3 .20 Not Available [facility] [address] [place] [address], [address], 01/16/2019 16:23:22 01/17/20 19 01/16/2019 CBC w/ auto diff absolute monos 0.52 K/uL 0.11-0 .59 Not Available [facility] [address] [place], [address], 01/16/2019 16:23:22 01/17/20 19 01/16/2019 CBC w/ auto diff absolute eos 0.22 K/uL 0.01-0 .50 Not Available [facility] [address] [place], [address], 01/16/2019 16:23:22 01/17/20 19 01/16/2019 CBC w/ auto diff absolute basos 0.11 K/uL 0.00-0 .08 high Not Available [facility] [address] [place], [address], 01/16/2019 16:23:22 01/17/20 19 01/16/2019 CBC w/ auto diff granulocytes , immature 0.03 K/uL 0.00-0 .05 Not Available [facility] [address] [place], [address], 01/16/2019 16:23:22 01/17/20 19 01/16/2019 eryth rocyt e sedim entat ion rate by prema sanchezo d ESR 9 mm/h 0-30 Not Available [facility] [address] [place], [address], 01/16/2019 17:39:50 01/17/20 19 01/16/2019 C-andra ctive prote in, quant itati ve, serum or plasm a C reactive protein 5.2 mg/L 0.0-4. 0 high Not Available [facility] ([facility] [address] [place], [address], 01/16/2019 18:50:56 01/17/20 19 01/16/2019 CMP, serum or plasm a sodium 141 mmol/ L 133-14 6 Not Available [facility] [address] [place], [address], 01/16/2019 22:11:00 01/17/20 19 01/16/2019 CMP, serum or plasm a potassium 4.4 mmol/ L 3.3-5. 1 Not Available [facility] ([facility] [address] [place], [address], 01/16/2019 22:11:00 01/17/20 19 01/16/2019 CMP, serum or plasm a chloride 102 mmol/ L 96-108 Not Available [facility] [address] [place], [address], 01/16/2019 22:11:00 01/17/20 19 01/16/2019 CMP, serum or plasm a CO2 23 mmol/ L 21-35 Not Available [facility] [address] [place], [address], 01/16/2019 22:11:00 01/17/2001/16/2019 CMP, serum or plasm a BUN 23 mg/dL 6-19 high Not Available [facility] [address] [place], [address], 01/16/2019 22:11:00 01/17/2001/16/2019 CMP, serum or plasm a creatinine 1.50 mg/dL 0.5-1. 5 Not Available [facility] [address] [place], [address], 01/16/2019 22:11:00 01/17/2001/16/2019 CMP, serum or plasm a glucose 161 mg/dL 70-99 high Not Available [facility] [address] [place], [address], 01/16/2019 22:11:00 01/17/2001/16/2019 CMP, serum or plasm a albumin 4.0 g/dL 3.9-4. 8 Not Available [facility] [address] [place], [address], 01/16/2019 22:11:00 01/17/20 19 01/16/2019 CMP, serum or plasm a total protein 6.8 g/dL 6.5-8. 0 Not Available [facility] [address] [place], [address], 01/16/2019 22:11:00 01/17/20 19 01/16/2019 CMP, serum or plasm a calcium 9.0 mg/dL 8.4-10 .3 Not Available [facility] [address] [place], [address], 01/16/2019 22:11:00 01/17/20 19 01/16/2019 CMP, serum or plasm a alkaline phosphatase 78 U/L 39-117 Not Available [facility] (Out[facility]) [address] [place], [address], 01/16/2019 22:11:00 01/17/20 19 01/16/2019 CMP, serum or plasm a total bilirubin 0.4 mg/dL 0.0-1. 2 Not Available [facility] ([facility] [address] [place], [address], 01/16/2019 22:11:00 01/17/20 19 01/16/2019 CMP, serum or plasm a AST 21 U/L 0-37 Not Available [facility] ([facility] [address] [place], [address], 01/16/2019 22:11:00 01/17/20 19 01/16/2019 CMP, serum or plasm a ALT 19 U/L 0-40 Not Available [facility] ([facility] [address] [place], [address], 01/16/2019 22:11:00 01/17/20 01/16/2019 CMP, serum or plasm a globulin 2.8 g/dL 1-4.8 Not Available [facility] ([facility] [address] [place], [address], 01/16/2019 22:11:00 01/17/20 19 01/16/2019 CMP, serum or plasm a eGFR 35 mL/mi n/1.7 3m2 >59 low If patie nt is black , multi ply resul t by 1.159 . Estim ated glome rular filtr ation rate calcu lated using the CKD-E PI equat ion. Not Available [facility] ([facility]) [address] [place], [address], 01/16/2019 22:11:00 01/17/20 19 01/16/2019 CMP, serum or plasm a anion gap 20 mmol/ L 10-20 Not Available [facility] ([facility] [address] [place], [address], 01/16/2019 22:11:00 06/12/20 18 06/12/2018 xr chest [...] MD Final result [facility] [address] [place], [address], 06/12/2018 20:56:35 09/07/19 19 09/06/2018 bd dxa [...] Rachel Jane MD 9 Final result NATALIE Kuar [facility] [address] [facility], [place], [address], 09/08/2018 18:43:16 Result Notes None recorded. 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 865204612 Active 2017 admitted to [facility]; lamicatal 11/2017 Natalie Reveles MD [address] [place] [address] Betty Hernán[place], [address], [facility] 8 20:36:49 Gastroes ophageal reflux disease 166023258 [facility] 15:48:05 Mixed hyperlip idemia 099825402 Active 2001 Natalie Reveles MD [address] [place] [address] Betty Hernán[place], [address], [facility] 6 12:19:12 Colitis, enteriti s and gastroen teritis presumed infectio us 217447882 Completed 200611/06/2009 Natalie Reveles MD [address] [place] [address] Betty [place]án[place], [address], [facility] 6 15:03:24 Nausea 731381839 Completed 200611/06/2009 Natalie Reveles MD [address] [place] [address] Betty Hernán[place], [address], [facility] 6 15:03:24 Essentia l hyperten lindsay 25688521 Completed 200311/06/2009 Natalie Reveles MD [address] [place] [address] Betty Hernán[place], [address], [facility] 6 15:03:24 Nausea and vomiting 81657298 Completed 200611/06/2009 Natalie Reveles MD [address] [place] [address] Betty Hernán[place], [address], [facility] 6 15:03:24 Cellulit is and abscess of buttock 496928286 Completed 200011/06/2009 Natalie Reveles MD [address] [place] [address] Betty Hernán[place], [address], [facility] 6 15:03:24 Urinary tract infectio us disease 90432209 Completed 200711/06/2009 Natalie Reveles MD [address] [place] [address] Betty Hernán[place], [address], [facility] 6 15:03:24 Benign essentia l hyperten lindsay 1634370 Active 2001 Natalie Reveles MD [address] [place] [address] Betty [place]án[place], [address], [facility] 6 12:19:12 Acute cystitis 11625969 Completed 200411/06/2009 Natalie Reveles MD [address] [place] [address] Betty [place]án[place], [address], [facility] 6 15:03:24 Acute pain 355866758 Completed 200711/06/2009 Natalie Reveles MD [address] [place] [address] Betty Hernán[place], [address], [facility] 6 15:03:24 Allergic rhinitis 34279928 Completed 200511/06/2009 Natalie Reveles MD [address] [place] [address] Betty Hernán[place], [address], [facility] 6 15:03:24 Osteoart hritis 269712127 Completed 200711/06/2009 Natalie Reveles MD [address] [place] [address] Betty Hernán[place], [address], [facility] 6 15:03:24 Sciatica 77035942 Active 2007 spinal stenosis Natalie Reveles MD [address] [place] [address] Betty [place]án[place], [address], [facility] 6 15:03:24 Diabetic on insulin 294337837 Active Natalie Reveles MD [address] [place] [address] Betty Hernán[place], [address], [facility] 6 12:19:12 Type 2 diabetes 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 complica tion 415479887 Active 2004 Natalie Reveles MD [address] [place] [address] Betty [place]án[place], [address], [facility] 6 12:19:12 Anemia 280812954 Completed 200611/06/2009 Natalie Reveles MD [address] [place] [address] Betty Hernán[place], [address], [facility] 6 15:03:24 Acute maxillar y sinusiti s 91250726 Completed 200311/06/2009 Natalie Reveles MD [address] [place] [address] Betty [place]án[place], [address], [facility] 6 15:03:24 Arteriti s 95366088 Completed 200511/06/2009 Natalie Reveles MD [address] [place] [address] Betty [place]án[place], [address], [facility] 6 15:03:24 Uncontro lled type 2 diabetes mellitus 233422863 Completed 200606/12/2013 Natalie Reveles MD [address] [place] [address] Betty eHrnán[place], [address], [facility] 6 15:03:24 Generali zed osteoart hritis 440202033 Completed 200006/12/2013 Natalie Reveles MD [address] [place] [address] Betty Hernán[place], [address], [facility] 6 15:03:24 Hyperlip idemia 80726710 Completed 200111/06/2009 Natalie Reveles MD [address] [place] [address] Betty Hernán[place], [address], [facility] 6 15:03:24 Backache 642652387 Completed 200711/06/2009 Natalie Reveles MD [address] [place] [address] Betty Hernán[place], [address], [facility] 6 15:03:24 Malaise and fatigue 483490816 Completed 200111/06/2009 Natalie Reveles MD [address] [place], [place] [address], [address], [facility] 6 15:03:24 Contact dermatit is 30051600 Completed 11/06/2009 Natalie Reveles MD [address] [place] [address] Betty Hernán[place], [address], [facility] 6 15:03:24 Cough 99443923 Completed 200411/06/2009 Natalie Reveles MD [address] [place] [address] Betty Hernán[place], [address], [facility] 6 15:03:24 Rheumato id arthriti s 73388451 Active sero-nega tive Natalie Reveles MD [address] [place] [address] Betty [place]án[place], [address], [facility] 6 12:19:12 Fever 376075392 Completed 200611/06/2009 Natalie Reveles MD [address] [place] [address] Betty Hernán[place], [address], [facility] 6 15:03:24 Allergic asthma without status asthmati cus 23255873 Active 2002 Natalie Reveles MD [address] [place] [address] Betty Hernán[place], [address], [facility] 6 15:03:24 Acute sinusiti s 71088857 Completed 05/14/2013 Natalie Reveles MD [address] [place] [address] Betty Hernán[place], [address], [facility] 6 15:03:24 Common cold 13520948 Completed 200211/06/2009 Natalie Reveles MD [address] [place] [address] Betty [place]án[place], [address], [facility] 6 15:03:24 Common cold 58488689 Completed 05/14/2013 Natalie Reveles MD [address] [place] [address] Betty Hernán[place], [address], [facility] 6 15:03:24 On examinat ion - a rash Completed 200511/06/2009 Natalie Reveles MD [address] [place], [place] [address], [address], [facility] 6 15:03:24 General symptom 472198997 Completed 200611/06/2009 Natalie Reveles MD [address] [place], [place] [address], [address], [facility] 6 15:03:24 Blood chemistr y outside referenc e range 681547612 Completed 200311/06/2009 Natalie Reveles MD [address] [place], [place] [address], [address], [facility] 6 15:03:24 Hypothyr oidism 93057752 Completed 200607/22/2015 Natalie Reveles MD [address] [place], [place] [address], [address], [facility] 6 15:03:24 Mononeur itis 04832046 Active 2003 Natalie Reveles MD [address] [place], [place] [address], [address], [facility] 6 15:03:24 Primary fibromya lgia syndrome 74943087 Completed 200211/06/2009 Natalie Reveles MD [address] [place], [place] [address], [address], [facility] 6 15:03:24 Vaginiti s and vulvovag initis Completed 200011/06/2009 Natalie Reveles MD [address] [place], [place] [address], [address], [facility] 6 15:03:24 Problem Notes None recorded. Procedures Surgical History Date Name Laterality Status Provider Name and Address Organization Details Recorded Time 9 Medicare Wellness Visit completed Sarah Jewell MA [facility] 12/31/2018 14:43:15 8 Medicare Wellness Visit completed Liz Boyce CMA [facility] 12/27/2017 15:09:17 8 Post hospital/SNF follow-up/[facility]oles sitional Care completed Liz Boyce CMA [facility] 11/13/2017 14:14:12 8 Nebulizer Tx completed Karmen White LPN [facility] 08/02/2017 14:24:48 7 Medicare Wellness Visit completed Mary Finley MA [facility] 12/25/2016 09:27:15 Imaging Results Imaging Date Name Status LastModified by Organiz ation Details LastModified Time 06/12/2018 xr chest Pa and lateral 2 views completed [facility] [address] [place], [address], 06/12/2018 20:56:35 09/06/2018 bd dxa axial (spine) with hip completed [facility] [address] [place], [address], 09/08/2018 18:43:16 Procedure Notes None recorded. Medical Equipment None Reported. Allergies Allergen ID Allergen Name Allergen Category Reaction Reaction Severity Criticality Documentation Date Start Date Code Code System Note Provider Name and Address Organization Details Recorded Time 580268 doxycycli ne Not available nausea Not available Not available 11/27/2013 3640 RxNorm Kacey Espinoza MA [facility] 4 10:10:57 627432 codeine medicatio n nausea Not available Not available 08/17/2015 2670 RxNorm Angelica Hicks CMA [facility] 6 16:23:36 [address]8890 Substance with sulfonami de structure and antibacte rial mechanism of action (substanc e) medicatio n hives Not available Not available 06/29/2010 62135 8003 SNOMED Not Available [facility] 1 06:05:41 Medications Name Sig Start Date [...] EVERY DAY AT BEDTIME 11/13 completed per [facility] d/c 11/08/17 new dose as follows: [...] Updated DateTime 8 147.95 cm 35.9 kg/m2 53752.1 8 g 80 /min 97 % 97 % 126 mm[Hg] 74 mm[Hg] Sarah Jewell MA [facility] 8 10:50:58 Date Recorded Body height Body mass index (BMI) Body weight Heart rate Systolic blood pressure Diastolic blood pressure Provider Name and Address Organization Details Last Updated DateTime 9 147.95 cm 35.7 kg/m2 01418.6 9 g 64 /min 90 mm[Hg] 54 mm[Hg] Marcia Baron MA [facility] 9 11:24:40 Date Recorded Body height Body mass index (BMI) Body weight Oxygen saturation Oxygen saturation in Arterial blood by Pulse oximetry Heart rate Systolic blood pressure Diastolic blood pressure Provider Name and Address Organization Details Last Updated DateTime 9 147.95 cm 36.3 kg/m2 49140.7 6 g 96 % 96 % 76 /min 120 mm[Hg] 62 mm[Hg] Sarah Jewell MA [facility] 9 14:52:36 Date Recorded Systolic blood pressure Diastolic blood pressure Systolic blood pressure Diastolic blood pressure Provider Name and Address Organization Details Last Updated DateTime 12/31/2018 120 mm[Hg] 60 mm[Hg] 120 mm[Hg] 60 mm[Hg] Kassie Reynolds [facility] 9 15:58:43 Date Recorded Body height Body mass index (BMI) Body weight Body temperature Heart rate Oxygen saturation Oxygen saturation in Arterial blood by Pulse oximetry Systolic blood pressure Diastolic blood pressure Provider Name and Address Organization Details Last Updated DateTime 147.95 cm 35.9 kg/m2 96845.5 8 g 97.9 [degF] 88 /min 96 % 96 % 114 mm[Hg] 62 mm[Hg] [facility] 09:[facility]:29 Social History Question Answer Notes [...] Caffeine Consumption? Moderate 4 Cups Tea Daily [email or web address] Information not available 12/27/2017 How Much Tobacco [...] With Others Sister, Uncle, Brother In Law [email or web address] Information not available 06/12/2013 CSRP - Narcotics [...] Immunizations Vaccine Type Date Status Note Provider Juan do and Address Organization Details Recorded Time tetanus toxoid, unspecified formulation 1 completed Not Available [facility] 07/12/2019 02:34:13 influenza, unspecified formulation 0 completed Not Available [facility] 05/10/2011 05:22:52 Influenza, split virus, trivalent, preservative 1 completed LISANDRO Temple, [facility] 05/17/2011 14:09:08 Tdap 1 completed Fang Robison RN [facility] 06/12/2011 16:12:51 influenza, unspecified formulation 2 [facility]/21/2012 16:38:35 influenza, unspecified formulation 3 completed Mary Finley MA [facility] 06/12/2013 16:12:54 influenza, unspecified formulation 4 [facility] 06/23/2014 15:26:51 influenza, unspecified formulation 5 [facility] 04/29/2015 14:13:29 Pneumococcal conjugate PCV 13 8 completed Not Available [facility] 07/12/2019 02:22:36 Hep B, adult 9 completed Not Available [facility] 07/12/2019 02:34:54 influenza, unspecified formulation 6 completed Not Available [facility] 07/26/2019 02:10:42 pneumococcal polysaccharide PPV23 9 completed Not Available [facility] 07/12/2019 02:24:02 Influenza, split virus, quadrivalent, preservative 7 completed Liz Boyce CMA [facility] 05/03/2017 14:36:38 Past Encounters Encounter ID Performer Location Encounter Start Date Encounter Closed Date Diagnosis/Indication Diagnosis SNOMED-CT Code Diagnosis ICD10 Code Diagnosis Note [id number] Natalie Reveles MD , [facility], [address] [place] [address] 09/14/2000 12:00:00 07/15/2008 02:02:29 [id number] Natalie Reveles MD , [facility], [address] [place] [address] 10/16/2000 10:45:00 07/15/2008 02:02:29 [id number] Elvis Grover MD , [facility], [address] [place] [address] 02/28/2001 14:15:00 07/15/2008 02:02:29 [id number] Elvis Grover MD , [facility], [address] [place] [address] 03/01/2001 09:45:00 07/15/2008 02:02:29 [id number] Natalie Reveles MD , [facility], [address] [place] [address] 10/22/2001 09:00:00 07/15/2008 02:02:29 [id number] [facility] [facility] [address] [place] [address] 10/22/2001 10:30:00 07/15/2008 02:02:29 [id number] Natalie Reveles MD , [facility], OFFICE [address] [place] [address] 6 12/02/2001 08:19:54 07/15/2008 02:02:29 [id number] [facility] , [address] [address] 12/02/2001 11:21:25 07/15/2008 02:02:29 [id number] [facility] [address] [place] [address] 04/24/2002 08:28:24 07/15/2008 02:02:29 [id number] Natalie Reveles MD , [facility], OFFICE [address] [place] [address] 6 04/30/2002 16:42:20 07/15/2008 02:02:29 [id number] [facility] [address] [place] [address] 07/22/2002 09:02:09 07/15/2008 02:02:29 [id number] MD RAJEEV Norwood, [facility], OFFICE [address] [place] [address] 6 07/29/2002 16:39:59 07/15/2008 02:02:29 [id number] Natalie Reveles MD , [facility], OFFICE [address] [place] [address] 6 10/30/2002 11:15:27 07/15/2008 02:02:29 [id number] [facility] [address] [place] [address] 10/30/2002 12:12:41 07/15/2008 02:02:29 [id number] Natalie Reveles MD , [facility], OFFICE [address] [place] [address] 6 12/31/2002 10:02:51 07/15/2008 02:02:29 [id number] [facility] [address] [place] [address] 12/31/2002 00:00:00 07/15/2008 02:02:29 [id number] [facility] LAB - [address] [address] 01/13/2003 11:28:31 07/15/2008 02:02:29 [id number] [facility] , [facility] [address] [place] [address] 01/15/2003 08:55:54 07/15/2008 02:02:29 [id number] ENRIKE Haq , [facility], OFFICE [address] [place] [address] 6 07/03/2003 16:41:59 07/04/2003 10:51:01 [id number] Natalie Rveeles MD , [facility], OFFICE [address] [place] [address] 10/13/2003 14:52:44 10/14/2003 08:39:08 [id number] [facility] [address] [place] [address] 6 10/22/2003 08:14:06 10/22/2003 08:14:10 [id number] MD RAJEEV Norwood, [facility], OFFICE [address] [place] [address] 12/10/2003 14:34:40 12/12/2003 13:55:58 [id number] [facility] [address] [place] [address] 03/30/2004 08:05:15 03/30/2004 08:05:20 [id number] Natalie Reveles MD , [facility], OFFICE [address] [place] [address] 6 07/04/2004 13:43:22 07/04/2004 17:14:21 [id number] Natalie Reveles MD , [facility], OFFICE [address] [place] [address] 6 07/26/2004 09:25:43 07/27/2004 08:19:25 [id number] Natalie Reveles MD , [facility], OFFICE [address] [place] [address] 6 08/08/2004 15:52:00 08/09/2004 08:55:32 [id number] aNtalie Reveles MD , [facility], OFFICE [address] [place] [address] 09/05/2004 07:59:25 09/05/2004 15:25:12 [id number] ENRIKE Chambers , [facility], OFFICE [address] [place] [address] 09/19/2004 13:51:52 09/19/2004 17:45:01 [id number] [facility] [address] [place] [address] 6 10/05/2004 08:38:59 10/05/2004 08:39:04 [id number] Natalie Reveles MD , [facility], OFFICE [address] [place] [address] 6 10/10/2004 07:58:34 10/10/2004 14:31:17 [id number] Valentine Mckenzie NP , [facility], OFFICE [address] [place] [address] 6 11/03/2004 13:44:09 07/15/2008 02:02:29 [id number] [facility] [address] [place] [address] 01/16/2005 08:22:10 01/16/2005 08:22:26 [id number] Natalie Reveles MD , [facility], OFFICE [address] [place] [address] 6 01/24/2005 08:00:36 07/15/2008 02:02:29 [id number] [facility] , [facility] [address] [place] [address] 6 02/13/2005 11:40:53 07/15/2008 02:02:29 [id number] [facility] , [facility] [address] [place] [address] 6 02/13/2005 00:00:00 07/15/2008 02:02:29 [id number] Natalie Reveles MD , [facility], OFFICE [address] [place] [address] 6 04/12/2005 08:22:15 07/15/2008 02:02:29 [id number] Rocky Lehman MD , [facility], OFFICE [address] [place] [address] 04/28/2005 16:18:32 07/15/2008 02:02:29 [id number] [facility] - [address] [address] 08/22/2005 08:28:59 08/22/2005 08:29:02 [id number] Natalie Reveles MD , [facility], OFFICE [address] [place] [address] 6 08/28/2005 15:40:14 08/29/2005 08:44:57 [id number] Natalie Reveles MD , [facility], OFFICE [address] [place] [address] 6 09/21/2005 14:22:16 07/15/2008 02:02:29 [id number] [facility] - [address] [address] 6 09/21/2005 15:10:47 09/21/2005 15:11:05 [id number] [facility] [address] [address] 6 01/23/2006 08:32:14 01/23/2006 08:32:24 [id number] Natalie Reveles MD , [facility], OFFICE [address] [place] [address] 6 02/05/2006 11:04:33 02/06/2006 09:17:09 [id number] MD RAJEEV Norwood, [facility], OFFICE [address] [place] [address] 6 03/21/2006 10:05:20 03/22/2006 08:20:24 [id number] MD RAJEEV Norwood, [facility], OFFICE [address] [place] [address] 6 04/04/2006 11:34:15 04/08/2006 09:14:42 [id number] [facility] [address] [place] [address] 6 04/25/2006 08:18:53 04/25/2006 08:19:04 [id number] Natalie Reveles MD , [facility], OFFICE [address] [place] [address] 6 05/03/2006 09:59:10 05/04/2006 08:46:05 [id number] [facility] , [facility] [address] [place] [address] 6 05/08/2006 08:08:08 07/15/2008 02:02:29 [id number] [facility] , [facility] [address] [place] [address] 6 05/08/2006 00:00:00 07/15/2008 02:02:29 [id number] Natalie Reveles MD , [facility], OFFICE [address] [place] [address] 6 07/31/2006 08:56:23 07/31/2006 14:16:09 [id number] [facility] [address] [address] 07/31/2006 10:36:02 07/31/2006 10:36:06 [id number] Natalie Reveles MD , [facility], OFFICE [address] [place] [address] 6 08/07/2006 08:36:04 08/08/2006 08:58:07 [id number] [facility] [address] [address] 6 10/22/2006 08:25:40 10/22/2006 08:25:45 [id number] Natalie Reveles MD , [facility], OFFICE [address] [place] [address] 10/29/2006 07:59:04 10/29/2006 10:37:03 [id number] [facility] - [address] [address] 10/30/2006 08:27:25 10/30/2006 08:27:30 [id number] Elvis Grover MD , [facility], OFFICE [address] [place] [address] 11/26/2006 10:44:18 11/26/2006 15:10:48 [id number] [facility] [address] [place] [address] 6 11/26/2006 11:29:37 11/26/2006 11:29:44 [id number] Elvis Grover MD , [facility], OFFICE [address] [place] [address] 6 12/06/2006 14:26:14 12/07/2006 08:30:34 [id number] Natalie Reveles MD , [facility], OFFICE [address] [place] [address] 6 12/10/2006 13:46:03 12/11/2006 09:05:34 [id number] [facility] - [address] [address] 6 12/10/2006 14:31:03 12/10/2006 14:31:43 [id number] [facility] - [address] [address] 6 01/04/2007 07:54:29 01/04/2007 07:54:36 [id number] [facility] [address] [address] 6 04/08/2007 08:14:44 04/08/2007 08:14:49 [id number] Natalie Reveles MD , [facility], OFFICE [address] [place] [address] 04/15/2007 16:27:24 04/18/2007 08:58:27 [id number] [facility] , [facility] [address] [place] [address] 6 06/29/2007 09:23:36 07/01/2007 09:13:11 [id number] Natalie Reveles MD , [facility], OFFICE [address] [place] [address] 6 09/20/2007 14:25:55 07/15/2008 02:02:29 [id number] MD RAJEEV Norwood, [facility], OFFICE [address] [place] [address] 6 10/08/2007 14:05:16 07/15/2008 02:02:29 [id number] [facility] - [address] [address] 10/29/2007 08:19:39 10/29/2007 08:19:43 [id number] Natalie Reveles MD , [facility], OFFICE [address] [place] [address] 11/05/2007 09:43:59 07/15/2008 02:02:29 [id number] [facility] - [address] [address] 6 11/12/2007 08:23:38 11/12/2007 08:23:44 [id number] [facility] - [address] [address] 01/17/2008 12:48:01 01/17/2008 12:48:16 [id number] Natalie Reveles MD , [facility], OFFICE [address] [place] [address] 01/24/2008 14:09:47 07/15/2008 02:02:29 [id number] [facility] - [address] [address] 01/24/2008 15:39:37 01/24/2008 15:40:02 [id number] [facility] - [address] [address] 01/24/2008 00:00:00 07/15/2008 02:02:29 [id number] Natalie Reveles MD , [facility], OFFICE [address] [place] [address] 6 03/30/2008 10:44:06 07/15/2008 02:02:29 [id number] Abigail catalan, PT Physical Therapy, [address] [address] 03/31/2008 11:58:11 04/01/2008 09:12:25 [id number] Abigail catalan, PT Physical Therapy, [address] [address] 6 04/02/2008 08:36:13 04/02/2008 16:25:15 [id number] Abigail catalan, PT Physical Therapy, [address] [address] 6 04/07/2008 08:34:12 04/07/2008 14:43:31 [id number] Abigail catalan, PT Physical Therapy, [address] [address] 6 04/09/2008 08:37:17 04/09/2008 15:42:30 [id number] Abigail catalan, PT Physical Therapy, [facility] [address] [place] [address] 6 04/14/2008 08:31:29 04/14/2008 14:21:06 [id number] [facility] [address] [address] 6 07/07/2008 11:15:56 07/07/2008 11:16:03 [id number] MD RAJEEV Norwood, [facility], OFFICE [address] [place] [address] 6 07/14/2008 13:28:43 07/24/2008 13:00:23 [id number] [facility] , [address] [address] 6 12/19/2008 08:52:20 12/22/2008 14:08:26 [id number] Rachel Obrien NP , [facility], OFFICE [address] [place] [address] 06/24/2009 14:39:32 06/24/2009 16:02:12 [id number] MD RAJEEV Norwood, [facility], OFFICE [address] [place] [address] 10/25/2009 13:26:11 11/10/2009 13:32:16 [id number] [facility] RADIOLOGY [facility] , [facility] [address] [place] [address] 10/25/2009 14:29:01 10/26/2009 11:21:38 [id number] MD RAJEEV Norwood, [facility], OFFICE [address] [place] [address] 06/29/2010 11:23:06 07/26/2010 11:56:31 [id number] MD RAJEEV Norwood, [facility], OFFICE [address] [place] [address] 09/22/2010 13:34:57 09/22/2010 17:04:13 [id number] Meghann Ayala NP , [facility], OFFICE [address] [place] [address] 04/05/2011 09:42:34 04/05/2011 10:07:18 [id number] MD RAJEEV Daniel, [facility], OFFICE [address] [place] [address] 04/10/2011 09:24:01 04/11/2011 11:28:27 [id number] Natalie Reveles MD , [facility], OFFICE [address] [place] [address] 05/17/2011 13:46:28 05/17/2011 15:12:35 [id number] [facility] , [facility] [address] [place] [address] 6 05/17/2011 14:58:54 05/22/2011 15:07:56 [id number] Natalie Reveles MD , [facility], OFFICE [address] [place] [address] 6 05/26/2011 16:22:49 05/29/2011 14:16:46 [id number] Natalie Reveles MD , [facility], OFFICE [address] [place] [address] 6 11/21/2011 11:10:29 11/21/2011 12:20:19 [id number] Natalie Reveles MD , [facility], OFFICE [address] [place] [address] 6 05/21/2012 15:50:05 05/21/2012 17:16:10 [id number] ENRIKE Haq , [facility], OFFICE [address] [place] [address] 6 08/06/2012 09:44:43 08/06/2012 10:34:24 [id number] Natalie Reveles MD , [facility], OFFICE [address] [place] [address] 11/01/2012 15:29:43 11/04/2012 10:55:05 [id number] Natalie Reveles MD , [facility], OFFICE [address] [place] [address] 6 02/21/2013 11:09:19 02/21/2013 12:15:52 Benign essential hypertension 6424131 continue to work on diet ,exercisea nd lowering salt intake as discussed Mixed hyperlipidemia 509042933 continue to work on diet and exercise as discussed Diabetic on insulin 216032127 Rheumatoid arthritis 58412702 [id number] Natalie Reveles MD , [facility], OFFICE [address] [place] [address] 6 06/12/2013 15:53:14 06/12/2013 17:00:00 Benign essential hypertension 2538434 continue to work on diet ,exercisea nd lowering salt intake as discussed Mixed hyperlipidemia 903926823 continue to work on diet and exercise as discussed Adult heal th examination 494809009 see Risk Assessment and Lifestyle Change Counseling section above Diabetic on insulin 688390546 Neuropathy due to diabetes mellitus 247589638 Mononeuritis 55633779 Rheumatoid arthritis 59676469 [id number] JEY Schumacher , [facility], OFFICE [address] [place] [address] 06/19/2013 13:36:30 06/19/2013 14:00:11 Acute sinusitis 28200147 sx tx including afrin- strt ab if no relief Common cold 31181000 Upp er Respirator y Infection Drink plenty [...] days, or you have a high fever. [id number] Natalie Reveles MD , [facility], OFFICE [address] [place] [address] 09/23/2013 13:47:10 09/24/2013 10:04:00 Sinusitis 54990788 [id number] Rocky Lehman MD , [facility], OFFICE [address] [place] [address] 09/29/2013 16:41:29 09/30/2013 09:41:00 Acute sinusitis 23320169 [id number] Meghann Ayala NP , [facility], OFFICE [address] [place] [address] 11/27/2013 09:59:23 11/27/2013 16:10:44 Cough 07174090 [id number] Natalie Reveles MD , [facility], OFFICE [address] [place] [address] 6 12/11/2013 14:25:08 12/11/2013 15:34:31 Benign essential hypertension 2395261 continue to work on diet ,exercisea nd lowering salt intake as discussed Mixed hyperlipidemia 404932619 continue to work on diet and exercise as discussed Neuropathy due to diabetes mellitus 884962905 Diabetic on insulin 577222705 [id number] Natalie Reveles MD , [facility], OFFICE [address] [place] [address] 06/23/2014 15:01:46 06/23/2014 16:03:39 Spinal stenosis of lumbar region 47887960 Neuropathy due to diabetes mellitus 882666494 Diabetic on insulin 153611883 Allergic a sthma without status asthmaticus 87627765 Mixed hyperlipidemia 008612885 continue to work on diet and exercise as discussed Mononeuritis 13372476 Rheumatoid arthritis 63661312 Type 2 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 434133090 [id number] Natalie Reveles MD , [facility], OFFICE [address] [place] [address] 12/31/2014 14:26:47 12/31/2014 15:36:09 Benign essential hypertension 1850504 continue to work on diet, exercise, and lowering salt intake as discussed Blood pressure at goal Mixed hyperlipidemia 879725273 continue to work on diet and exercise as discussed Diabetic on insulin 556587579 Rheumatoid arthritis 43144557 [id number] Natalie Reveles MD , [facility], OFFICE [address] [place] [address] 04/29/2015 13:53:38 04/29/2015 14:45:02 Benign essential hypertension 6921404 I10 continue to work on diet, exercise, and lowering salt intake as discussed Mixed hyperlipidemia 267 213314 E78.2 continue to work on diet and exercise as discussed Diabetic on insulin 1707 25016 Z79.4 Type 2 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 152029396 E11.9 Neuropathy due to diabetes mellitus 163299835 E11.42 Allergic a sthma without status asthmaticus 92180126 J45.909 Rheumatoid arthritis 698 38145 M06.9 [id number] Natalie Reveles MD , [facility], OFFICE [address] [place] [address] 07/22/2015 14:47:13 07/22/2015 15:54:33 Benign essential hypertension 6018559 I10 Blood pressure at goal continue to work on diet, exercise, and lowering salt intake as discussed Mixed hyperlipidemia 267 062346 E78.2 continue to work on diet and exercise as discussed Adult heal th examination 921174944 Z00.00 see Risk Assessment and Lifestyle Change Counseling section above Neuropathy due to diabetes mellitus 770596243 E11.42 Diabetic on insulin 1707 45827 Z79.4 Hypothyroidism 83961679 E03.9 Rheumatoid arthritis 698 21969 M06.9 Spinal shara nosis of lumbar region 79733493 M48.06 Type 2 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 222850703 E11.9 [id number] Batsheva Cobb MD , [facility], OFFICE [address] [place] [address] 08/17/2015 16:10:28 08/17/2015 16:58:40 Acute sinusitis 84973828 J01.90 Eczema 94129279 L30.9 Asthma 247782124 J45.90 9 Allergic rhinitis 792459 04 J30.9 [id number] Natalie Reveles MD , [facility], OFFICE [address] [place] [address] 11/23/2015 14:02:11 11/23/2015 15:24:07 Benign essential hypertension 7790740 I10 Blood pressure at goal continue to work on diet, exercise, and lowering salt intake as discussed Mixed hyperlipidemia 267 553695 E78.2 Cholestero l is at goal Continue to work on diet and exercise as discussed Neuropathy due to diabetes mellitus 126568208 E11.42 Rheumatoid arthritis 698 36456 M06.9 Type 2 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 957535742 E11.9 Diabetic on insulin 1707 60521 Z79.4 [id number] Natalie Reveles MD , [facility], OFFICE [address] [place] [address] 03/23/2016 14:19:29 03/23/2016 15:26:40 Benign essential hypertension 6178499 I10 Blood pressure at goal Blood pressure NOT at goal. Mixed hyperlipidemia 267 789006 E78.2 continue to work on diet and exercise as discussed Sinusitis 75260209 J32.9 Eczema 66246630 L30.9 Diabetic on insulin 1707 13947 Z79.4 Mononeuritis 93155323 G5 8.9 Rheumatoid arthritis 698 27078 M06.9 [id number] Natalie Reveles MD , [facility], OFFICE [address] [place] [address] 06/13/2016 14:40:53 06/13/2016 15:36:21 Acute sinusitis 75156170 J01.90 [id number] Natalie Reveles MD , [facility], OFFICE [address] [place] [address] 11/30/2016 13:57:42 11/30/2016 15:08:02 Diabetic on insulin 149801241 Z79.4 Type 2 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 457825871 E11.9 Mixed hyperlipidemia 267 634066 E78.2 continue to work on diet and exercise as discussed Acute sinusitis 72414360 J01.90 [id number] Natalie Reveles MD , [facility], OFFICE [address] [place] [address] 12/25/2016 09:20:57 12/25/2016 10:34:52 Adult health examination 368026339 Z00.00 see Risk Assessment and Lifestyle Change Counseling section above Counseling 752386975 Z71 .9 Mixed hyperlipidemia 267 519710 E78.2 continue to work on diet and exercise as discussed Benign ess ential hypertension 0045602 I10 Blood pressure at goal and re Mononeuritis 55782016 G5 8.9 Sciatica 45059560 M54.30 Diabetic on insulin 1707 42231 Z79.4 Rheumatoid arthritis 698 55395 M06.9 Neuropathy due to diabetes mellitus 817360034 E11.42 Hearing loss 11617427 H9 1.90 [id number] Natalie Reveles MD , [facility], OFFICE [address] [place] [address] 05/03/2017 14:27:16 05/03/2017 15:21:54 Benign essential hypertension 4357268 I10 Blood pressure at goal . Mixed hyperlipidemia 267 612893 E78.2 continue to work on diet and exercise as discussed Sciatica 21763965 M54.30 Type 2 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 779463795 E11.9 Diabetic on insulin 1707 35965 Z79.4 Rheumatoid arthritis 698 53489 M06.9 [id number] Rachel Obrien NP , [facility], OFFICE [address] [place] [address] 06/27/2017 15:27:55 06/27/2017 15:57:15 Acute sinusitis 58179777 J01.90 discussed tx options,. At this point will tx with abx, probiotics , nasal rinses and rest. RTC prn [id number] Mami Bernstein MD , [facility], OFFICE [address] [place] [address] 08/02/2017 13:49:47 08/02/2017 14:54:19 Allergic asthma without status asthmaticus 44613747 J45.909 feels diminished and wheezingbr eath sounds goodafter neb a bit improvedpe ak flows lower range, not much changesubj ectively feels easier to deep breath after nebulizerb ut albuterol makes her jittery and she avoids it when possiblesh ort term trial inhaled steroidcon tinue proair as neededf/u if not improving Acute uppe r respiratory infection 25117834 J06.9 Kriss is presenting today with recurrent URI sxthis does sound like a new viral URI and not pna or recurrent sinus infections upportive instr giventx coughaugme nt asthma mgmt [id number] Natalie Reveles MD , [facility], OFFICE [address] [place] [address] 09/13/2017 14:23:47 09/13/2017 15:31:30 Benign essential hypertension 7739820 I10 Blood pressure at goal Mixed hyperlipidemia 267 031104 E78.2 continue to work on diet and exercise as discussed Sciatica 10121217 M54.30 Type 2 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 077095308 E11.9 Mononeuritis 84117220 G5 8.9 Rheumatoid arthritis 698 66262 M06.9 Diabetic on insulin 1707 91987 Z79.4 Anemia 525174652 D64.9 Asthma 525318575 J45.90 9 Active or passive immunization 766619324 Z23 [id number] Natalie Reveles MD , [facility], OFFICE [address] [place] [address] 11/13/2017 14:08:31 11/13/2017 14:54:27 Transient cerebral ischemia 968453389 G45.9 Diabetic on insulin 1707 05139 Z79.4 [id number] Natalie Reveles MD , [facility], OFFICE [address] [place] [address] 12/27/2017 14:34:57 12/27/2017 16:04:03 Adult health examination 355080358 Z00.00 see Risk Assessment and Lifestyle Change Counseling section above Counseling 208942488 Z71 .9 Depression screening 171 106375 Z13.89 depression screening tool administer ed, entered into emr, scored and discussed, time greater than 7.5 minutes Focal onse t impaired awareness epileptic seizure 870186974 G40.209 Benign ess ential hypertension 7688045 I10 Blood pressure at goal Sciatica 80830196 M54.30 Mixed hyperlipidemia 267 585125 E78.2 continue to work on diet and exercise as discussed Type 2 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 884130079 E11.9 Allergic a sthma without status asthmaticus 31512676 J45.909 Diabetic on insulin 1707 58116 Z79.4 Rheumatoid arthritis 698 87340 M06.9 Neuropathy due to diabetes mellitus 794395041 E11.42 Screening mammography 24 450054 Z12.31 Active or passive immunization 200156507 Z23 [id number] Natalie Reveles MD , [facility], OFFICE [address] [place] [address] 04/30/2018 10:39:49 04/30/2018 11:23:30 Counseling 255788745 Z71.9 Benign ess ential hypertension 7859330 I10 Blood pressure at goal Mixed hyperlipidemia 267 335331 E78.2 continue to work on diet and exercise as discussed Focal onse t impaired awareness epileptic seizure 762840244 G40.209 Sciatica 13326628 M54.30 Type 2 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 975806205 E11.9 Mononeuritis 66266512 G5 8.9 Diabetic on insulin 1707 38622 Z79.4 Rheumatoid arthritis 698 78458 M06.9 Allergic a sthma without status asthmaticus 69434322 J45.909 Intolerant of ambient temperature 228602230 R68.89 [id number] Natalie Reveles MD , [facility], [address] [place] [address] 07/04/2018 09:15:51 07/04/2018 09:27:41 Active or passive immunization [id number] Z23 [id number] Natalie Reveles MD , [facility], [address] [place] [address] 08/29/2018 11:16:37 08/30/2018 10:37:41 Acute sinusitis 64828068 J01.90 Benign ess ential hypertension 7935178 I10 Blood pressure at goal Type 2 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 [id number] E11.9 Mononeuritis 39138580 G5 8.9 Rheumatoid arthritis 698 25783 M06.9 [id number] Natalie Reveles MD , [facility], [address] [place] [address] 12/31/2018 14:40:49 12/31/2018 16:07:09 Adult health examination [id number] Z00.00 see Risk Assessment and Lifestyle Change Counseling section above Counseling [id number] Z71 .9 Depression screening 171 859055 Z13.89 depression screening tool administer ed, entered into emr, scored and discussed, time greater than 7.5 minutes Mixed hyperlipidemia 267 730364 E78.2 Focal onse t impaired awareness epileptic seizure 164934193 G40.209 Benign ess ential hypertension 7106765 I10 Blood pressure at goal Sciatica 37717024 M54.30 Type 2 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 987302752 E11.9 Allergic a sthma without status asthmaticus 69956994 J45.909 Diabetic on insulin 1707 60957 Z79.4 Rheumatoid arthritis 698 39250 M06.9 Gastroesop hageal reflux disease 823089826 K21.9 Active or passive immunization 428765954 Z23 Neuropathy due to diabetes mellitus 867842962 E11.42 [id number] Natalie Reveles MD , [facility], OFFICE [address] [place] [address] 02/20/2019 09:32:43 02/20/2019 10:11:54 Acute sinusitis 16382228 J01.90 Health Concerns Section Related Observation LastModified by Organization Detai ls LastModified Time None Recorded Concern Status LastModified by Organization Details LastModified Time None Recorded Advance Directives Directive N: Payers Encounter Date Sequence Insurance Name Policy Number Policy Samuel Covered Member ID Samuel Member ID Guarantor Name 04/30/2018 1 [place] [employer] Kriss Jackson [id number] Kriss Jackson 04/30/2018 2 [place] [id number] Kriss Jackson [id number] Kriss Jackson 07/04/2018 1 [place] [employer] Kriss Jackson [id number] Kriss Jackson 07/04/2018 2 [place] [id number] Kriss Jackson [id number] Kriss Keys Young 08/29/2018 1 [place] [facility] G[facility]MENT [facility] Kriss Jackson [id number] Kriss Jackson 08/29/2018 2 [place] [id number] Kriss Jackson [id number] Kriss Keys Young 12/31/2018 1 [place] [facility] Kriss Jackson [id number] Kriss Keys Young 12/31/2018 2 [place] [id number] Kriss Jackson [id number] Kriss Keys Young 02/20/2019 1 [place] [facility] Kriss Jackson [id number] Kriss Jackson 02/20/2019 2 [place] [id number] Kriss Jackson [id number] Kriss Jackson Notes Date Note Type [...] intolerance has developed recently Natalie Reveles MD [address] [place] [address], [phone], [facility] 05/11/2018 15:01:12 9 text/html 67 yo [...] lidocaine patches prn for feetCame back from [place] yesterday and had allergy sx. Using flonase, asthma inhaler, loratidine.Recent A1 C was <6% per Dr. Robson Reveles MD [address] [place] [address], [phone], [facility] 08/30/2018 13:31:11 9 text/html Physical Exam/FemaleReported [...] room and availability of urgent care at [facility] DiabetesReported bypatient.Duration:chronic Control:usually well controlled; improved [...] of 145/80 since reducing lisinopril in august.Sees field underwriter (Dr. Chance) Natalie Reveles MD [address] [place] [address], [phone], [facility] 01/05/2019 14:13:02 9 text/html Physical Exam/FemaleReported [...] room and availability of urgent care at [facility] DiabetesReported bypatient.Duration:chronic Control:usually well controlled; improved [...] green sputum. No dyspnea Natalie Reveles MD [address] [place] [address], [phone], [facility] 02/20/2019 10:14:25 OBGyn Episode No OBEpisode recorded.
--- OUTSIDE RECORDS SUMMARY | 2024-10-28 10:17 | XMS_ITS ---
[facility] Organization [facility] Address [address] [place] [address] Care Team Providers Care Qm Consultant Name Role Phone Angel Pablo Primary Care Provider [phone] Antonio Giles Unavailable [phone] Allergies Allergen (clinical drug ingredient) Drug/Non Drug [...] other tobacco user? No Vital Signs Height 7xm57jm in 06/10/2024 Weight 146 lbs 06/10/2024 BMI 30.51 kg/m2 06/10/2024 Blood pressure systolic 109 mm Hg 06/10/20 24 Blood pressure diastolic 54 mm Hg 024 Procedures Procedure Date Ordered Date Performed Result Body Sit e 77870-RAIUIHK NAIL, 6 OR MORE 06/10/2024 N/A 47076-QXKO SKIN LESIONS, OVER 4 06/10/2024 N/A Encounters Encounter Location Date Provider Diagnosis [facility] [address] [place] [address] 06/10/2024 Antonio Giles Type 2 diabetes mellitus [...] Treatment Pending Test Test Name Order Date 62076-SQLTRQG NAIL, 6 OR MORE 06/10/2024 13157-VQNN SKIN LESIONS, OVER 4 06/10/20 24 Next Appt Details Follow Up: prn, Reason: Provider Name:Antonio Giles , 12/23/2024 10:30:00 AM, [address] [place], [address], Procedure Notes * Category Sub-Category Detail Notes [...] use of a nail nipper and/or dremel-type paint grinder, to a more viable healthy nail [...] to maintain effectiveness in symptomatic relief - 26981 Keratoma Treatment Parring or Cutting o f [...] instrumentation by the physician of record - 97487 Progress Notes * Lilly JACKSONDonaldOB:1950 ([age] yo F)Acc No.[id number]:06/10/2024 Progress Note Patient:?Kriss JACKSON Provider:?Antonio Giles DPM :1950???Age:73 Y???Sex:Female D ate:06/10/2024 Address:[address] [place], [place] [phone] Pcp:Angel Pablo Subjective: * Chief Complaints: * [...] yes, housework,shooping. ?Marital status: . 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 * Medications:?TakingAcetamino phen ER , Notes to [...] hivesCod eine: stomach upsetDoxycyclineDuloxetineCymbaltayes[Allergies Verified] Objective: * Vitals:?Ht:7wz50en, Wt:146, BMI:30.51, Shoe size:7, BP:109/54mm Hg, BS:not [...] use of a nail nipper and/or dremel-type paint grinder, to a more viable healthy nail [...] to maintain effectiveness in symptomatic relief - 71147.?Keratoma Treatment:?Parring or Cutting of Benign Hyperkeratotic Lesion(s)?(-57) [...] instrumentation by the physician of record - 45579.? * Procedure Codes:?46780 DEBRI DE NAIL, 6 OR MORE, Modifiers: XS 42364 TRIM SKIN LESIONS, OVER 4, Modifiers: XS [...] Giles DPM Date:?2023 Generated for Shanique alatorre/Lloyd/Ramirosmitting on:?10/28/2024 10:16 AM EDT History and Physical Notes * [...]
--- OUTSIDE RECORDS SUMMARY | 2024-10-28 10:17 | XMS_ITS ---
Author Organization [facility] Address [address] [place] [address] Care Team Providers Care Branch Operations Manager Name Role Phone Angel Pablo Primary Care Provider Antonio Giles Unavailable [phone] Allergies Allergen (clinical drug ingredient) Drug/Non Drug [...] Points 0 Interpretation Negative Vital Signs Height 7qb40ip in 09/16/2024 Weight 146 lbs 09/16/2024 BMI 30.51 kg/m2 09/16/2024 Blood pressure systolic 109 mm Hg 09/17/19 Blood pressure diastolic 50 mm Hg 025 Procedures Procedure Date Ordered Date Performed Result Body Sit e 92215-YBBLSBD NAIL, 6 OR MORE 09/16/2024 N/A 49402-AGTO SKIN LESIONS, OVER 4 09/16/2024 N/A Encounters Encounter Location Date Provider Diagnosis [facility] [address] [address] 09/16/2024 Antonio Giles Type 2 diabetes mellitus [...] days Pending Test Test Name Order Date 65878-ZGEDAIB NAIL, 6 OR MORE 09/16/2024 25476-WUEB SKIN LESIONS, OVER 4 09/17/19 Next Appt Details Follow Up: prn, Reason: Provider Name:Antonio Giles , 12/23/2024 10:30:00 AM, [address] [place] [address], [phone], Procedure Notes * Category Sub-Category Detail Notes [...] use of a nail nipper and/or dremel-type needle grinder, to a more viable healthy nail [...] to maintain effectiveness in symptomatic relief - 74366 Keratoma Treatment Parring or Cutting o f [...] instrumentation by the physician of record - 83511 Progress Notes * Jose JACKSONOB:1950 ([age] yo F)Acc No.[id number]:09/16/2024 Progress Note Patient:Kriss HARRISNO Provider:?Antonio Giles DPM :1950???Age:73 Y???Sex:Female D ate:09/16/2024 Address:[address] [place] [address], [place], [id number] Pcp:Angel Pablo Subjective: * Chief Complaints: * [...] yes, housework,shooping. ?Marital status: . 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 ???Drug/Alcohol:?AUDIT-C (Standard)?Did you have a drink containing [...] hivesCod eine: stomach upsetDoxycyclineDuloxetineCymbaltayes[Allergies Verified] Objective: * Vitals:?Ht:1sm50nt, Wt:146, BMI:30.51, Shoe size:7, BP:109/50mm Hg, BS:77, [...] use of a nail nipper and/or dremel-type needle grinder, to a more viable healthy nail [...] to maintain effectiveness in symptomatic relief - 24882.?Keratoma Treatment:?Parring or Cutting of Benign Hyperkeratotic Lesion(s)?(-57) [...] instrumentation by the physician of record - 56510.? * Procedure Codes:?69567 DEBRI DE NAIL, 6 OR MORE, Modifiers: XS 72625 TRIM SKIN LESIONS, OVER 4, Modifiers: XS [...] Giles DPM Date:?2024 Generated for Shanique alatorre/Lloyd/eTransmitting on:?10/28/2024 10:16 AM EDT History and Physical Notes * HPI (History of Present Illness) Category Sub-Category Detail Notes Category Not es Skin problems Nature: dryness , scaling Location: B/L Duration: several days Course: worse Treatments: At Risk footcare Pt States Last PCP Visit: Date: [facility] [place] States to have vein surgery to Left [...]
--- OUTSIDE RECORDS SUMMARY | 2024-10-28 10:17 | XMS_ITS | Patient Health Record ---
Author Organization [facility] Address [address] [facility] [place] [address] Care Team Providers Care Feather Edger Name Role Phone Angel Pablo Primary Care Provider [phone] Antonio Giles Unavailable [phone] Allergies Allergen (clinical drug ingredient) Drug/Non Drug [...] Problem Acquired hammer toe of right foot (3830173591306705 ) Other hammer toe(s) (acquired), right foot (M20.41) Active confirmed Response to treatment, Improvemen t Problem Acquired hammer toe of left foot (7532328478658133 ) Other hammer toe(s) (acquired), left foot (M20.42) Active confirmed Response to treatment, Improvemen t Problem Polyneuropathy due to type 2 diabetes mellitus (056347169) Type 2 diabetes mellitus with diabetic polyneuropathy (E11.42) Active confirmed Vital Signs Blood pressure diastolic 50 mm Hg 09/16/2024 Height 4qf69gh in 09/16/2024 Blood pressure systolic 109 mm Hg 09/16/2024 Weight 146 lbs 09/16/2024 BMI 30.51 kg/m2 09/16/2024 Procedures Procedure Date Ordered Date Performed Result Body Sit e 32575-ZWPVWBE NAIL, 6 OR MORE 12/11/2023 N/A 98041-Cvkvmupx Plate 12/11/2023 N/A 60986-QDYG SKIN LESIONS, OVER 4 12/11/2023 N/A 29612-UQUBAKD NAIL, 6 OR MORE 03/11/2024 N/A 24379 I&D ABSCESS- SIMPLE,SINGLE 03/11/2024 N/A 88606-CKAI SKIN LESIONS, OVER 4 03/11/2024 N/A 57436-RVGVRIQ SKIN/TISSUE 03/25/2024 N/A 71449- Debride <25 sq cm 04/15/2024 N/A 56474-EQHUAQE NAIL, 6 OR MORE 06/10/2024 N/A 64755-FPCM SKIN LESIONS, OVER 4 06/10/2024 N/A 40422-KANQRRA NAIL, 6 OR MORE 09/16/2024 N/A 58601-JEUF SKIN LESIONS, OVER 4 09/16/2024 N/A Encounters Encounter Location Date Provider Diagnosis [address] [address] 12/11/2023 Antoniorafia Meadier Type 2 diabetes mellitus with diabetic polyneuropathy E11.42 ; Tinea unguium B35.1 ; Other hammer toe(s) (acquired), right foot M20.41 ; Other hammer toe(s) (acquired), left foot M20.42 and Ingrown nail L60.[address] [address] 03/11/2024 Antonio Tisha Type 2 diabetes mellitus with diabetic polyneuropathy E11.42 ; Tinea unguium B35.1 and Abscess of right foot L02.[address] [address] 03/25/2024 Antonio Tisha Abscess of right nichole t L02.611 and Neuropathic ulcer of right foot with fat layer exposed L97.[address] [address] 04/15/2024 Antonio Tisha Neuropathic ulcer of right foot, limited to breakdown of skin L97.[address] [address] 05/16/2024 Antonio Tisha Neuropathic ulcer of right foot, limited to breakdown of skin L97.[address] [address] 06/10/2024 Antoniorafia Meadier Type 2 diabetes mellitus with diabetic polyneuropathy E11.42 ; Tinea unguium B35.1 ; Other hammer toe(s) (acquired), right foot M20.41 and Other hammer toe(s) (acquired), left foot M20.[address] [address] 09/16/2024 Antonio Tisha Type 2 diabetes mellitus with diabetic polyneuropathy E11.42 ; Tinea unguium B35.1 and Xerosis of skin L85.3 [facility] [address] [address] 03/11/2024 Antonio Giles [facility] [address] [address] 09/26/2024 Antonio Giles Assessments Encounter Date Diagnosis [...] X ray : Foot, right 3V 03/03/2022 23939-CDVUHBR NAIL, 6 OR MORE 03/11/2024 65043-KYBZAZW NAIL, 6 OR MORE 09/11/2023 76017-XNOJKXG NAIL, 6 OR MORE 12/11/2023 34487-DVDZUPH NAIL, 6 OR MORE 09/08/2022 81861-WUAGEAA NAIL, 6 OR MORE 12/08/2022 09677-UNAHGQA NAIL, 6 OR MORE 03/09/2023 23266-JVAQLYR NAIL, 6 OR MORE 06/08/2023 45531-JPHODZV NAIL, 6 OR MORE 06/02/2022 80336-YJRBWFZ NAIL, 6 OR MORE 03/03/2022 85952-UWJLKBB NAIL, 6 OR MORE 08/30/2021 91686-QOHIUXA NAIL, 6 OR MORE 12/02/2021 78205-ERCZSUB NAIL, 6 OR MORE 06/08/2020 05978-YYSTTDD NAIL, 6 OR MORE 09/03/2020 99173-VXQXSFX NAIL, 6 OR MORE 12/10/2020 63196-UCHDALD NAIL, 6 OR MORE 03/22/2021 37922-LCJLNFY NAIL, 6 OR MORE 06/10/2024 26929-OTPMDPP NAIL, 6 OR MORE 09/16/2024 57946-Mrtjllkd Plate 12/11/2023 49459- Debride <25 sq cm 04/15/2024 80216-WVPJBOF SKIN/TISSUE 03/25/2024 50169 I&D ABSCESS- SIMPLE,SINGLE 024 80210-LSCH SKIN LESIONS, OVER 4 06/10/20 24 93723-HFCZ SKIN LESIONS, OVER 4 09/17/19 25 51676-BCZK SKIN LESIONS, OVER 4 03/11/20 24 67791-HTWC SKIN LESIONS, OVER 4 12/11/19 24 32709-PMPU SKIN LESIONS, OVER 4 09/11/19 24 30193-AKTB SKIN LESIONS, OVER 4 06/08/20 23 75806-KGHW SKIN LESIONS, OVER 4 03/09/20 23 05699-SSHE SKIN LESIONS, OVER 4 12/09/19 23 47094-QLRR SKIN LESIONS, OVER 4 09/09/19 23 28935-COLY SKIN LESIONS, OVER 4 03/22/20 21 33592-NYBY SKIN LESIONS, OVER 4 12/11/19 21 56921-RBLK SKIN LESIONS, OVER 4 09/04/19 21 32992-KBGV SKIN LESIONS, OVER 4 06/08/20 20 90316-UNSE SKIN LESIONS, OVER 4 12/03/19 22 25977-QHMD SKIN LESIONS, OVER 4 08/31/19 22 74310-DMZC SKIN LESIONS, OVER 4 03/03/20 22 72098-DFFJ SKIN LESIONS, OVER 4 06/02/20 Next Appt Details Provider Name:Antonio Giles , 12/23/2024 10:30:00 AM, [address] [place], [address], Insurance Providers Payer Name Payer Address Payer Phone Subscriber Number Group Number Insured Name Patient Relationship to Insured Coverage Start Date Coverage End Date Medicare National [employer] [address] [place] [address] [id number] Kriss Jackson Self - [facility] [address] [place] [address] [phone] [id number] Kriss Jackson Self - patient is the [...]
== END ==
LOC: HO.CARD 09:22
PROVIDERS: PCP Internal Medicine; Visit Provider Internal Medicine Cardiovascular Disease
DX: I47.29 Other ventricular tachycardia (principal)
CPT/HCPCS: 78452; 93017; A9500; J0280; J2785

== ENCOUNTER → 2024-10-28 09:25 | Outpatient (BNV) | payer MEDICARE, SELFPAY | PROVIDERS: PCP Internal Medicine | DX: R06.02 Shortness of breath (principal) | CPT/HCPCS: 78452; 93016; 93018 ==

== ENCOUNTER 2024-11-03 13:35 | Outpatient (REF) | payer MEDICARE, SELFPAY ==
[2024-11-03 14:43] LABS: MANUAL DIFF FLAG NO
[2024-11-03 15:25] LABS: Basophils Absolute Auto 0.1 X10*3/uL (0.0-0.2); Basophils Percent Auto 1.6 % (0-2); Eosinophils Absolute Auto 0.3 X10*3/uL (0.0-0.4); Hematocrit 26.4 % (37.0-47.0); Hemoglobin 9.3 g/dl (12.0-16.0); Lymphocytes Absolute Auto 0.8 X10*3/uL (1.2-4.9); Lymphocytes Percent Auto 21.8 % (20-40); Mean Corpuscular HGB Conc 35.2 g/dl (31.0-35.0); Mean Corpuscular Hemoglobin 33.7 pg (27.0-33.0); Mean Corpuscular Volume 95.7 fL (80.0-98.0); Mean Platelet Volume 10.8 fL (9.4-12.3); Monocytes Absolute Auto 0.6 X10*3/uL (0.1-1.2); Monocytes Percent Auto 16.1 % (2-11); Neutrophils Percent Auto 53.5 % (45-73); Platelet Count 140 X10*3/uL (160-400); Red Blood Count 2.76 X10*6/uL (4.20-5.50); Red Cell Distribution Width 15.7 % (11.0-16.0); White Blood Count 3.7 X10*3/uL (4.8-10.8)
[2024-11-03 16:16] LABS: Erythrocyte Sedimentation Rate 8 MM/HR (0-20)
[2024-11-03 16:23] LABS: Alanine Aminotransferase 25 U/L (0-31); Albumin Level 4.1 g/dL (3.5-5.0); Anion Gap 13 (12-20); Aspartate Amino Transferase 30 U/L (5-31); Bilirubin Total 0.7 mg/dL (0.0-1.0); Blood Urea Nitrogen 27 mg/dL (9-16); Calcium 9.1 mg/dL (8.4-10.2); Carbon Dioxide 25 mmol/L (22-29); Chloride 106 mmol/L (96-108); Estimated Glomerular Filt Rate 45; Glucose Random 164 mg/dL (60-115); Sodium 140 mmol/L (135-145); Total Protein 6.4 g/dL (6.5-8.0)
[2024-11-03 16:49] LABS: Alkaline Phosphatase 50 U/L (39-117)
[2024-11-04 08:08] LABS: HBS Num1 0.02 mIU/mL (0-7.99); HBc Num1 0.15 S/CO (0.00-0.79); HBsAGNum1 0.25 S/CO (0.00-0.99); Hepatitis A Antibody IgM 0.13 Index (0-0.79); Hepatitis B Core Antibody Nonreactive (Nonreactive); Hepatitis B Surface Antigen Negative (Negative); ~HepC Num1 0.06 S/CO (0.00-0.79); ~Hepatitis A Antibody IgM Nonreactive (Nonreactive); ~Hepatitis B Surface Antibody NONREACTIVE (Nonreactive); ~Hepatitis C Antibody Nonreactive (Nonreactive)
[2024-11-05 23:19] LABS: TS Negative Control Passed; TS Panel A 0; TS Panel B 0; TS Positive Control Passed; TSpotTB Negative (Negative)
[2024-11-06 16:29] LABS: Kappa, Serum 178 mg/dL (176-443); Kappa/Lambda Ratio, Serum 1.93 (1.29-2.55); Lambda, Serum 92 mg/dL (91-240)
== END 2024-11-03 13:36 | disposition home or self-care (01) ==
LOC: HO.LAB 13:35
PROVIDERS: PCP Internal Medicine; Visit Provider Student in an Organized Health Care Education/Training Program
DX: M06.09 Rheumatoid arthritis without rheumatoid factor, multiple sites (principal); R77.8 Other specified abnormalities of plasma proteins; M19.041 Primary osteoarthritis, right hand; M19.042 Primary osteoarthritis, left hand; M81.0 Age-related osteoporosis without current pathological fracture; Z79.631 Long term (current) use of antimetabolite agent; Z79.899 Other long term (current) drug therapy
CPT/HCPCS: 80053; 83883; 85025; 85652; 86140; 86335; 86481; 86704; 86706; 86709; 86803; 87340; 99212

== ENCOUNTER 2024-11-03 13:35 | Outpatient (AMB) | payer MEDICARE, SELFPAY ==
[2024-11-03 13:40] VITALS: BP 122/78; PULSE 77; O2SAT 97; BMI 30.9
--- NOTE | 2024-11-03 13:40 | A.OFFVIS_ITS ---
Vital Signs 11/03/24 13:40 Height 4 ft 10 in Weight 147 lb 14.883 oz BMI 30.9 BP 122/78 Blood Pressure Location Lt brachial Position Sitting Pulse 77 Pulse Source Pulse Oximeter Pulse Oximetry (%) 97 Oxygen Delivery Method Room Air Intake Visit Reasons: RA Intake Note: Patient presents for follow up on RA today.? Allergies duloxetine Allergy (Severe, Verified 11/03/24 13:42) LOOPY codeine [CODEINE] Allergy (Intermediate, Verified 11/03/24 13:42) GI UPSET doxycycline [DOXYCYCLINE] Allergy (Intermediate, Verified 11/03/24 13:42) RASH Sulfa (Sulfonamide Antibiotics) [SULFA (SULFONAMIDE ANTIBIOTICS)] Allergy (Intermediate, Verified 11/03/24 13:42) Hives HPI Comments Details: Patient is a 73-year-old female with diabetes complicated by neuropathy, hypertension, polyarticular OA and seronegative erosive rheumatoid arthritis who presents for follow-up. Interval History: Last seen 06/24/2024 with me. At that time she had a healing foot ulcer and was started on Humira for uncontrolled rheumatoid arthritis. Osteopenia - Diagnosed 01/23/2023 with T-score-2.1 at left femoral neck - FRAX score at that time meeting criteria for treatment with risk of hip fracture more than 3% and risk of major osteoporosis fracture more than 20%. - On Zolendronic Acid. Doses: 02/2023, 03/2024 Today, Foot ulcer is healing well. Has shoe insoles that she wears now Had vein ablation in her left thigh, now complaining of some calf pain States that she still has pain in her hands and does not feel that much difference Rheumatologic History: Subcutaneous methotrexate: start date unknown? Around 2019 or 2019-January 2022. Stopped due to insurance issues Plaquenil: Start date unknown ? 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 Edema of lower extremity present on examination Petechiae residential use of drug Irritable bowel syndrome with diarrhea Rheumatoid arthritis Pacemaker TIA (transient ischemic attack) Dysphagia Spinal stenosis COVID COVID-19 Laryngopharyngeal reflux (LPR) Asthma Rotator cuff tendinitis Post-menopausal Polyarthralgia Dyspnea on exertion Allergic rhinitis Bronchitis Asthma exacerbation Cough variant asthma DJD (degenerative joint disease) Decreased hearing GERD (gastroesophageal reflux disease) Type 2 diabetes 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s Surgical History S/P placement of cardiac pacemaker History of esophagogastroduodenoscopy (EGD) History of colonoscopy (~09/05/21) Hx of cholecystectomy Hx of tonsillectomy Hx of hysterectomy Family History Father CVD (cardiovascular disease) Diabetes Mother Diabetes Sister No problems noted. Other Substance use disorder Social History Household Members: Family and None Housing: House Are you a primary home health care physician to a significant other at home: No Do you presently have visiting nurse or other home services: No Alcohol intake: former Comment: WITHIN LAST MONTH Patient Tobacco Use Status: Never used Tobacco e-Cigarette/Vaping Use: Never Used Second Hand Smoke Exposure: No Advance Directives Date on File: 08/04/22 service: No Current occupational status: retired Cognitive needs: Yes (walker) Hearing needs: Yes (hearing aide) Vision needs: Yes (glasses) Review of Systems Const Details: Review of Systems Constitutional: Denies fever, chills, weight loss ENT: Denies vision changes, eye pain or eye redness, dental caries, dry mouth GI: Denies nausea, vomiting, diarrhea, abdominal pain, change in BM Pulm: Denies SOB, HECK, hemoptysis, wheezing Cards: Denies chest pain, palpitations Skin: Denies Raynaud's, rash, nail changes, photosensitivity, PATIENT CARRIER: Denies headaches, weakness, paresthesias, recurrent falls MSK: as per HPI All other systems reviewed and are unremarkable except noted above Physical Exam Vital Signs: Last Vital Signs Pulse 77 11/03/24 13:40 BP 122/78 11/03/24 13:40 Pulse Ox 97 11/03/24 13:40 Oxygen Delivery Method Room Air 11/03/24 13:40 BMI result Body Mass Index 30.9 Vital signs reviewed Physical Examination CONSTITUITIONAL Patient alert and cooperative. Well appearing and in no apparent painful distr ess HEENT Conjunctiva and sclera clear. ?Pupils equal round and reactive to light. ?No lymphadenopathy. ? CHEST/RESPIRATORY SYSTEM Normal respiratory effort and able to speak in complete sentences. ?Clear to auscultation bilaterally. ?No crackles, rales, rhonchi, wheezes heard. CARDIAC SYSTEM Regular rate and rhythm. ?S1 and S2 heard no murmurs. ?Radial pulses intact bilaterally MSK Hands: ?Able to make a fist. No synovitis noted to the MCPs, PIPs or DIPs. ?No tenderness to palpation of these joints. Prominent Heberden and Kiersten's nodes throughout the hands. Wrists: ?Full range of motion at the wrists without pain. ?No tenderness to palpation or synovitis noted to the wrists. Elbows: Full range of motion without pain. No tenderness, weakness, swelling, increased warmth or erythema. Shoulders: Full range of active range of motion without pain. No tenderness, weakness, swelling, increased warmth or erythema. Knees: ?Full range of motion. ?No tenderness, swelling, increased warmth or erythema.?No effusion or crepitations Ankles: Full range of motion. ?No tenderness, swelling, increased warmth or erythema.? Pitting edema up to the tibial tuberosity bilaterally Feet: ?Negative squeeze test. ?No tenderness to palpation or swelling of the MTPs. Tender points:?No tenderness to palpation of the bilateral trapezius, supraspinatus, greater trochanters, anterior costochondral junctions, bilateral gluteal areas, bilateral suboccipital muscle insertions SKIN Skin intact without rashes. Results Reviewed Results Reviewed: Laboratory Tests 06/24/24 08/04/24 09:20 22:01 WBC 4.9 RBC 3.44 L Hgb 11.4 L Hct 32.1 L Plt Count 101 L D Sodium 144 Potassium 3.4 Chloride 109 H Carbon Dioxide 22 BUN 39 H Creatinine 0.88 Estimated GFR > 60 AST 33 H 47 H ALT 38 H 32 H C-Reactive Protein 1.76 H XR C-spine 03/2024 FINDINGS: The cervical spine is visualized in its entirety. Normal C1/2 articulation. In neutral positioning there is minimal anterolisthesis of C4 on C5. With flexion positioning the anterolisthesis of C4 on C5 is mildly increased in prominence and there is also noted to be minimal anterolisthesis of C3 on C4. Extension positioning results in normal alignment and resolution of the C4/5 anterolisthesis. Cervical vertebral body heights are maintained. Cervical disc spaces are maintained. Prominent osteophytes at the C6/7 level. There is mild narrowing of the right C3/4 neural foramina. Other bilateral neural foramen are widely patent. Visualized lung apices are well aerated. Partially visualized pacemaker leads. No evidence of atlanto-axial instability (my read) XR Hands 08/2023 FINDINGS: Right hand: The bones are intact. No fracture or dislocation. Alignment is anatomic. There is mild osteoarthritis at the IP joint of the thumb with joint space narrowing and osteophyte formation. There is a small cyst or erosion of the ulnar styloid and distal aspect of the radius. There are small erosions of the distal medial aspect of the proximal phalanges of the index middle and ring finger. Left hand: The bones are intact. No fracture or dislocation. Alignment is anatomic. There is osteoarthritis of the IP joint with joint space narrowing and osteophyte formation of the thumb. There is osteoarthritis of the DIP joint joint of the index finger and PIP joint of the middle finger. There is question of a small erosion or cyst of the radial styloid. There is some adjacent soft tissue calcification as well. It is possible this is related to old trauma. There is an erosion of the distal proximal phalangeal of the middle finger, and also the first and second metacarpal heads. DEXA 01/2023 FINDINGS: AP SPINE L1-L2 (excluding L3 and L4): The data of L1-L4 has been changed to exclude the L3 and L4 vertebral bodies, because degenerative sclerosis at these levels may cause overestimation of lumbar spine density. Current: BMD 1.032 g/cm2, Z-score 0.3, T-score -1.1, osteopenia, 2.0% increase from baseline (<5% change is not significant). Baseline: BMD 1.012 g/cm2. LEFT FEMUR, NECK: Current: BMD 0.745 g/cm2, Z-score -0.5, T-score -2.1, osteopenia. Baseline: BMD 0.975 g/cm2. LEFT FEMUR, TOTAL: Current: BMD 0.882 g/cm2, Z-score 0.4, T-score -1.0, normal, 18.2% decrease from baseline (<5% change is not significant). Baseline: BMD 1.078 g/cm2. FRAX: 10-YEAR FRACTURE RISK PREDICTION, FRAX: Major osteoporotic fracture (clinical spine, forearm, hip or shoulder) 24.2%. Hip fracture 6.7%. Assessment & Plan Assessment & Plan (1) Rheumatoid arthritis with negative rheumatoid factor: Comment: Subcutaneous methotrexate: start date unknown? Around 2018 or 2019-January 2022 Plaquenil: Start date unknown ? Around 2018 or 2019 Oral methotrexate- January 2022 to present Code(s): M06.00 - Rheumatoid arthritis without rheumatoid factor, unspecified site Category: Medical Qualifiers: Rheumatoid arthritis location: multiple sites Qualified Code(s): M06.09 - Rheumatoid arthritis without rheumatoid factor, multiple sites Plan: #Seronegative Erosive RA Patient is a 73-year-old female with seronegative erosive rheumatoid arthritis here today for follow up. Joints doing better on Humira. We will continue this regimen for the next 4 months and then we will try to taper 1 of her medications. Plan - Start Humira 40mg SC every 2 weeks - Continue Mtx 20mg weekly PO (split dosing 4 pills in the morning 4 pills in the evening) - Folic acid 1mg PO - Continue Plaquenil 400mg daily PO - Check CBC, CMP, Hep B, Hep C, ESR, CRP - RTC 4 months (2) Osteoarthritis of hands, bilateral: Code(s): M19.041 - Primary osteoarthritis, right hand; M19.042 - Primary osteoarthritis, left hand Category: Medical Qualifiers: Osteoarthritis type: primary Qualified Code(s): M19.041 - Primary osteoarthritis, right hand; M19.042 - Primary osteoarthritis, left hand Plan: #Bilateral hand osteoarthritis Patient with bilateral hand osteoarthritis as evidenced by x-rays as well as Heberden's nodes noted to the DIPs as well as Kiersten's nodes noted to the PIPs. Recommended paraffin wax baths twice a day Plan - Topical diclofenac gel for hands bilaterally up to 4 times a day - Has order for PT (3) Osteoporosis: Code(s): M81.0 - Age-related osteoporosis without current pathological fracture Qualifiers: Osteoporosis type: age-related Presence of current pathological fracture: without current pathological fracture Qualified Code(s): M81.0 - Age- related osteoporosis without current pathological fracture Plan: #Osteoporosis Based on elevated FRAX index Started zoledronic acid 03/14/2023 with plan to continue for 5 years and then give drug holiday No current fractures Plan - Continue zoledronic acid next due 03/2025 - Plan for drug holiday in 2027 (4) residential methotrexate 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 Limit alcohol and avoid Bactrim ? Monitoring: ?CBC, BMP, LFTs every 3-4 months and hepatitis serologies as needed Note made of her elevated AST and we will follow this. Check labs today (5) Long-term use of hydroxychloroquine: Comment: Eye exam OK 08/2022 Code(s): Z79.899 - Other fdc (current) drug therapy Category: Medical Plan: #Long-term Use of Hydroxychloroquine Discussed with patient the risks and benefits of hydroxychloroquine in managing the rheumatic condition Benefits include: - Reduced pain, reduce mortality, maintenance of remission and reduction of flares Risks include: - GI upset, skin hyperpigmentation, retinal toxicity (especially after more than 5 years of use), myopathy Advised yearly ophthalmology visits Last ophthalmology visit: 08/2022 Plan I spent 30 minutes reviewing the record and labs, seeing the patient, discussing the treatment plan and documenting in the medical record Orders: Orders Comprehensive Met. Panel Today M06.09 - Rheumatoid arthritis without rheumatoid factor, multiple sites Erythrocyte Sedimentation Rate Today M06.09 - Rheumatoid arthritis without rheumatoid factor, multiple sites Hepatitis A,B,C Profile Today M06.09 - Rheumatoid arthritis without rheumatoid factor, multiple sites Complete Blood Count Auto Diff Today M06.09 - Rheumatoid arthritis without r heumatoid factor, multiple sites C Reactive Protein Today M06.09 - Rheumatoid arthritis without rheumatoid factor, multiple sites T Spot TB Today M06.09 - Rheumatoid arthritis without rheumatoid factor, multiple sites Coding Level of Care Code Est Pt Level 4 (32714) Complex EM visit Add On G2211 Diagnoses Rheumatoid arthritis of multiple sites with negative rheumatoid factor M06.09 Rheumatoid arthritis location: multiple sites Primary osteoarthritis of both hands M19.041; M19.042 Osteoarthritis type: primary Age-related osteoporosis without current pathological fracture M81.0 Osteoporosis type: age-related Presence of current pathological fracture: without current pathological fracture residential methotrexate user Z79.631 Long-term use of hydroxychloroquine Z79.899
--- OUTSIDE RECORDS SUMMARY | 2024-11-03 13:55 | XMS_ITS ---
Author Organization [facility] Address [address] [place] [address] Care Team Providers Care Accounting Coordinator Name Role Phone Angel Pablo Primary Care Provider Antonio Giles Unavailable [phone] REASON FOR VISIT Foot swelling Encounters Encounter Location Date Provider Diagnosis [address] [id number] 09/26/2024 Antonio Giles Plan Of Treatment Next Appt Details Provider Name:Antonio Giles , 12/23/2024 10:30:00 AM, [address] [place], [id number], Progress Notes * Jose JACKSONOB:1950 ([age] yo F)Acc No.[id number]:09/26/2024 Patient:?Kriss JACKSON :1950???Age:73 Y???Sex:Female Address:[address] [place] [address] [place], [address] * true * Date:? Generated for Printi ng/Famariang/eTransmitting on:?11/03/2024 01:55 PM EDT
--- OUTSIDE RECORDS SUMMARY | 2024-11-03 13:56 | XMS_ITS | Data Portability ---
Author Organization [facility], [facility] Address [address] [place] [address] Assessment Encounter Date Assessment Date Assessment LastModified by Organization Details LastModified Time 04/30/2018 04/30/2018 Blood pressure i s at goal with which is below 140/90 for a diabetic. She is looking for alternative activities in her [facility]. Her A1c of 5.5% shows excellent diabetes control (goal below 7.5-8%). She will continue with [place] [facility] in diabetes education for that. [...] to what she tells us from her hold worker, and she will try and get us those records. 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 She will follow-up in [...] bp more regularly 3) Patient regularly sees hold worker who will check A1C and adjust rx [...] with new provider (will be changing to [facility] for convenience) 9) RA stable; may [...] Lab TSH, serum or plasma 2017 018 [facility], [address] [place] [address], [id number], 8 16:26:11 CBC 2017 018 [facility], [address] [place], [address], 8 14:43:05 Referral None recorded. Procedures None recorded. Surgeries None recorded. Imaging None recorded. Medication Orders cefpodoxim e 200 mg tablet 2018 019 [id number], [address], [place], [id number], 9 12:53:28 atorvastat in 20 mg tablet 2018 019 [facility] #[id number], [address], [place], [id number], 9 16:34:01 lidocaine 5 % topical patch 2018 019 INTERFACE [facility] #[id number], [address], [place], [id number], 9 13:32:45 omeprazole 20 mg capsule,de layed release 2018 019 [facility] #[id number], [address], [place], [id number], 9 16:34:01 lisinopril 10 mg-hydroch lorothiazi de 12.5 mg tablet 2018 019 [facility] #[id number], [address], [place], [id number], 9 16:34:01 cefpodoxim e 200 mg tablet 2018 019 [facility] #[id number], [address], [place], [id number], 9 14:47:44 Patient TargetsNo targets recorded. Patient Instructions Encounter Date Encounter Id Patient Instructions Last Modified By Organization Details Last Modified Time 04/30/2018 [id number] high cholesterol lifestyle changes nikki Not available 04/30/2018 11:19:19 high blood pressure: care instructions nikki Not available 04/30/2018 11:19:19 learning about high blood pressure nikki Not available 04/30/2018 11:19:19 asthma handout / teaching nikki Not available 04/30/2018 11:19:19 asthma action plan nikki Not availab le 04/30/2018 11:19:[address] an ages 0-11 yrs martiniquais nikki Not available 04/30/2018 11:19:19 CCM: The provide r and patient discussed the Chronic Care Management program, including the services provided, and any fees associated with them. michele Not available 04/30/2018 11:32:47 08/29/2018 [id number] My Health To Do List Specific Analgesia [...] medication. spise Not available 08/29/2018 11:18:25 12/31/2018 [id number] After a discussi on of treatment options, [...] Patie nts with Diabe sarath Not Available [address], [address], 04/26/2018 15:36:01 04/26/20 18 04/26/2018 HbA1c (hemo globi n A1c), blood estimated average glucose 111.2 mg/dL Not Available [address], [address], 04/26/2018 15:36:01 04/26/20 18 04/26/2018 micro album in, urine microalbumin 39.3 mg/L 1.3-20 .0 high Not Available [address], [address], 04/26/2018 15:37:51 04/26/20 18 04/26/2018 micro album in, urine creatinine urine 193.6 mg/dL 30.0-1 25.0 high Not Available [address], [address], 04/26/2018 15:37:51 04/26/20 18 04/26/2018 micro album in, urine microalb/cre at ratio 20.3 mg/g_ creat 0.0-29 .0 Not Available [address], [address], 04/26/2018 15:37:51 04/26/20 18 04/26/2018 BMP, serum or plasm a glucose 74 mg/dL 70-100 Not Available [address], [address], 04/26/2018 16:07:42 04/26/20 18 04/26/2018 BMP, serum or plasm a BUN 16 mg/dL 7-18 Not Available [address], [address], 04/26/2018 16:07:42 04/26/20 18 04/26/2018 BMP, serum or plasm a creatinine 1.1 mg/dL 0.8-1. 3 Not Available [address], [address], 04/26/2018 16:07:42 04/26/20 18 04/26/2018 BMP, serum or plasm a B/C 14.5 ratio Not Available [address], [address], 04/26/2018 16:07:42 04/26/20 18 04/26/2018 BMP, serum or plasm a GFR -non 55.5 mL/mi n Recom zhane d GFR by the Natio nal Kidne y Found ation >60 mL/mi n/1.7 3m2 - Patricia l <60 mL/mi n/1.7 3m2 - Chron ic Kidne y Disea se <15 mL/mi n/1.7 3m2 - Kidne y Failu re Not Available [address], [address], 04/26/2018 16:07:42 04/26/20 18 04/26/2018 BMP, serum or plasm a GFR - if 63.8 mL/mi n For Afric an Ameri can patie nts: Resul ts Multi plied by 1.21 Not Available [address], [address], 04/26/2018 16:07:42 04/26/20 18 04/26/2018 BMP, serum or plasm a sodium 143 mmol/ L 136-14 5 Not Available [address], [address], 04/26/2018 16:07:42 04/26/20 18 04/26/2018 BMP, serum or plasm a potassium 4.6 mmol/ L 3.5-5. 1 Not Available [address], [address], 04/26/2018 16:07:42 04/26/20 18 04/26/2018 BMP, serum or plasm a chloride 105 mmol/ L 96-107 Not Available [address], [address], 04/26/2018 16:07:42 04/26/20 18 04/26/2018 BMP, serum or plasm a anion gap 11.1 5.0-15 .0 Not Available [address], [address], 04/26/2018 16:07:42 04/26/20 18 04/26/2018 BMP, serum or plasm a CO2 27 mmol/ L 21-32 Not Available [address], [address], 04/26/2018 16:07:42 04/26/20 18 04/26/2018 BMP, serum or plasm a calcium 9.2 mg/dL 8.5-10 .3 Not Available [address], [address], 04/26/2018 16:07:42 04/26/20 18 04/26/2018 lipid panel , serum cholesterol 106 mg/dL <200 mg/dl Avelino able 200-2 39 mg/dl Borde rline High >240 mg/dl High Not Available [address], [address], 04/26/2018 16:07:44 04/26/20 18 04/26/2018 lipid panel , serum triglyceride s 184 mg/dL <150 mg/dL Patricia l 150-1 99 mg/dL Borde rline High 200-4 99 mg/dL High >500 mg/dL Very High Not Available [address], [address], 04/26/2018 16:07:44 04/26/20 18 04/26/2018 lipid panel , serum direct HDL 39 mg/dL <40 mg/dl - Major Risk for CHD >60 mg/dl - Negat jeannette Risk for CHD Not Available [address], [address], 04/26/2018 16:07:44 04/26/20 18 04/26/2018 LDL, calcu [...] r is not martha baker. Not Available [address], [address], 04/26/2018 16:07:45 04/26/20 18 04/26/2018 AST/S GOT (aspa rtate amino trans feras e), serum or plasm a AST 18 U/L 15-37 Not Available [address], [address], 04/26/2018 16:25:23 04/26/20 18 04/26/2018 ALT (karen ine amino trans feras e), serum or plasm a ALT 26 U/L 30-65 low Not Available [address], [address], 04/26/2018 16:25:24 04/30/20 18 04/30/2018 CBC WBC 8.9 K/? ? ?L 4.0-10 .0 Not Available [address], [address], 04/30/2018 14:43:04 04/30/20 18 04/30/2018 CBC RBC 4.13 M/? ? ?L 3.93-5 .22 Not Available [address], [address], 04/30/2018 14:43:04 04/30/20 18 04/30/2018 CBC HGB 11.9 g/dL 11.2-1 5.7 Not Available [address], [address], 04/30/2018 14:43:04 04/30/20 18 04/30/2018 CBC HCT 35.9 % 34.1-4 4.9 Not Available [address], [address], 04/30/2018 14:43:04 04/30/20 18 04/30/2018 CBC MCV 86.9 ? ? ?L 79.4-9 4.8 Not Available [address], [address], 04/30/2018 14:43:04 04/30/20 18 04/30/2018 CBC MCH 28.8 pg 25.6-3 2.2 Not Available [address], [address], 04/30/2018 14:43:04 04/30/20 18 04/30/2018 CBC MCHC 33.1 g/dL 32.2-3 5.5 Not Available [address], [address], 04/30/2018 14:43:04 04/30/20 18 04/30/2018 CBC plt 290.0 K/? ? ?L 182.0- 369.0 Not Available [address], [address], 04/30/2018 14:43:04 04/30/20 18 04/30/2018 CBC MPV 11.7 9.4-12 .3 Not Available [address], [address], 04/30/2018 14:43:04 04/30/20 18 04/30/2018 CBC neut% 78.8 % 34.0-7 1.1 high Not Available [address], [address], 04/30/2018 14:43:04 04/30/20 18 04/30/2018 CBC neut# 7.0 1.6-6. 1 high Not Available [address], [address], 04/30/2018 14:43:04 04/30/20 18 04/30/2018 CBC lymph % 14.1 % 19.3-5 1.7 low Not Available [address], [address], 04/30/2018 14:43:04 04/30/20 18 04/30/2018 CBC lymph # 1.3 K/? ? ?L 1.2-3. 7 Not Available [address], [address], 04/30/2018 14:43:04 04/30/20 18 04/30/2018 CBC mono% 5.2 % 4.7-12 .5 Not Available [address], [address], 04/30/2018 14:43:04 04/30/20 18 04/30/2018 CBC mono# 0.5 0.2-0. 6 Not Available [address], [address], 04/30/2018 14:43:04 04/30/20 18 04/30/2018 CBC eo% 1.4 % 0.7-5. 8 Not Available [address], [address], 04/30/2018 14:43:04 04/30/20 18 04/30/2018 CBC eo# 0.1 0.0-0. 4 Not Available [address], [address], 04/30/2018 14:43:04 04/30/20 18 04/30/2018 CBC baso% 0.5 % 0.1-1. 2 Not Available [address], [address], 04/30/2018 14:43:04 04/30/20 18 04/30/2018 CBC baso# 0.0 0.0-0. 1 Not Available [address], [address], 04/30/2018 14:43:04 04/30/20 18 04/30/2018 CBC RDW-CV 14.0 % 11.7-1 4.4 Not Available [address], [address], 04/30/2018 14:43:04 04/30/20 18 04/30/2018 TSH, serum or plasm a TSH 2.29 uIU/m L 0.50-6 .00 The [employer] Endoc rinol ogy and Ameri can Thyro id Assoc iatio n recom mend goal TSH value s betwe en 0.4-4 .0 mIU/m L. Not Available [address], [address], 04/30/2018 16:26:11 06/12/20 18 06/12/2018 CBC w/ auto diff WBC 13.71 K/uL 3.40-1 1.20 high Not Available [facility] [address] [place] [address], [id number], 06/12/2018 14:19:14 06/12/20 18 06/12/2018 CBC w/ auto diff RBC 4.19 M/uL 3.80-4 .80 Not Available [facility] [address] [place] [address], [address], 06/12/2018 14:19:14 06/12/20 18 06/12/2018 CBC w/ auto diff HGB 12.0 g/dL 12.0-1 5.0 Not Available [facility] [address] [place] [address], [address], 06/12/2018 14:19:14 06/12/20 18 06/12/2018 CBC w/ auto diff HCT 35.1 % 36.0-4 6.0 low Not Available [facility] [address] [place] [address], [id number], 06/12/2018 14:19:14 06/12/20 18 06/12/2018 CBC w/ auto diff plt 285 K/uL 130-40 0 Not Available [facility] [address] [place], [address], 06/12/2018 14:19:14 06/12/20 18 06/12/2018 CBC w/ auto diff MCV 83.8 fL 79.0-9 8.0 Not Available [facility] [address] [place], [address], 06/12/2018 14:19:14 06/12/20 18 06/12/2018 CBC w/ auto diff MCH 28.6 pg 27.0-3 4.8 Not Available [facility] [address] [place], [address], 06/12/2018 14:19:14 06/12/20 18 06/12/2018 CBC w/ auto diff MCHC 34.2 g/dL 31.5-3 6.0 Not Available [facility] [address] [place], [address], 06/12/2018 14:19:14 06/12/20 18 06/12/2018 CBC w/ auto diff RDW 13.2 % 10.8-1 4.6 Not Available [facility] [address] [place], [address], 06/12/2018 14:19:14 06/12/20 18 06/12/2018 CBC w/ auto diff MPV 11.6 fL 9.4-12 .4 Not Available [facility] [address] [place], [address], 06/12/2018 14:19:14 06/12/20 18 06/12/2018 CBC w/ auto diff NRBC 0.00 /100_ WBCs 0.00 Not Available [facility] [address] [place], [address], 06/12/2018 14:19:14 06/12/20 18 06/12/2018 CBC w/ auto diff absolute NRBC 0.00 K/uL 0.00 Not Available [facility] [address] [place], [address], 06/12/2018 14:19:14 06/12/20 18 06/12/2018 CBC w/ auto diff diff method Auto Not Available [facility] [address] [place], [address], 06/12/2018 14:19:14 06/12/20 18 06/12/2018 CBC w/ auto diff neuts 84.8 % 45.30- 77.70 high Not Available [facility] [address] [place] [address], [id number], 06/12/2018 14:19:14 06/12/20 18 06/12/2018 CBC w/ auto diff lymphs 9.0 % 12.30- 39.70 low Not Available [facility] [address] [place], [address], 06/12/2018 14:19:14 06/12/20 18 06/12/2018 CBC w/ auto diff monos 4.2 % 4.10-1 2.80 Not Available [facility] [address] [place], [address], 06/12/2018 14:19:14 06/12/20 18 06/12/2018 CBC w/ auto diff eos 0.9 % 0-7.2 Not Available [facility] [address] [place], [address], 06/12/2018 14:19:14 06/12/20 18 06/12/2018 CBC w/ auto diff basos 0.7 % 0-2.80 Not Available [facility] [address] [place], [address], 06/12/2018 14:19:14 06/12/20 18 06/12/2018 CBC w/ auto diff granulocytes , immature (%) 0.4 % 0.0-0. 9 Not Available [facility] [address] [place], [address], 06/12/2018 14:19:14 06/12/20 18 06/12/2018 CBC w/ auto diff absolute neuts 11.63 K/uL 1.40-7 .70 high Not Available [facility] [address] [place], [address], 06/12/2018 14:19:14 06/12/20 18 06/12/2018 CBC w/ auto diff absolute lymphs 1.24 K/uL 0.60-3 .20 Not Available [facility] [address] [place] [address], [id number], 06/12/2018 14:19:14 06/12/20 18 06/12/2018 CBC w/ auto diff absolute monos 0.57 K/uL 0.11-0 .59 Not Available [facility] [address] [place] [address], [id number], 06/12/2018 14:19:14 06/12/20 18 06/12/2018 CBC w/ auto diff absolute eos 0.13 K/uL 0.01-0 .50 Not Available [facility] [address] [place] [address], [id number], 06/12/2018 14:19:14 06/12/20 18 06/12/2018 CBC w/ auto diff absolute basos 0.09 K/uL 0.00-0 .08 high Not Available [facility] [address] [place] [address], [address], 06/12/2018 14:19:14 06/12/20 18 06/12/2018 CBC w/ auto diff granulocytes , immature 0.05 K/uL 0.00-0 .05 Not Available [facility] [address] [place], [address], 06/12/2018 14:19:14 06/12/20 18 06/12/2018 CMP, serum or plasm a sodium 139 mmol/ L 133-14 6 Not Available [facility] [address] [place], [address], 06/12/2018 15:13:28 06/12/20 18 06/12/2018 CMP, serum or plasm a potassium 4.6 mmol/ L 3.3-5. 1 Not Available [facility] [address] [place] [address], [address], 06/12/2018 15:13:28 06/12/20 18 06/12/2018 CMP, serum or plasm a chloride 99 mmol/ L 96-108 Not Available [facility] [address] [place] [address], [address], 06/12/2018 15:13:28 06/12/20 18 06/12/2018 CMP, serum or plasm a CO2 28 mmol/ L 21-35 Not Available [facility] [address] [place], [address], 06/12/2018 15:13:28 06/12/20 18 06/12/2018 CMP, serum or plasm a BUN 22 mg/dL 6-19 high Not Available [facility] [address] [place], [address], 06/12/2018 15:13:28 06/12/20 18 06/12/2018 CMP, serum or plasm a creatinine 0.90 mg/dL 0.5-1. 5 Not Available [facility] [address] [place], [address], 06/12/2018 15:13:28 06/12/20 18 06/12/2018 CMP, serum or plasm a glucose 104 mg/dL 70-99 high Not Available [facility] [address] [place], [address], 06/12/2018 15:13:28 06/12/20 18 06/12/2018 CMP, serum or plasm a albumin 4.4 g/dL 3.9-4. 8 Not Available [facility] [address] [place], [address], 06/12/2018 15:13:28 06/12/20 18 06/12/2018 CMP, serum or plasm a total protein 6.9 g/dL 6.5-8. 0 Not Available [facility] [address] [place], [address], 06/12/2018 15:13:28 06/12/20 18 06/12/2018 CMP, serum or plasm a calcium 9.3 mg/dL 8.4-10 .3 Not Available [facility] [address] [place], [address], 06/12/2018 15:13:28 06/12/20 18 06/12/2018 CMP, serum or plasm a alkaline phosphatase 82 U/L 39-117 Not Available [facility] [address] [place], [address], 06/12/2018 15:13:28 06/12/20 18 06/12/2018 CMP, serum or plasm a total bilirubin 0.4 mg/dL 0.0-1. 2 Not Available [facility] [address] [place], [address], 06/12/2018 15:13:28 06/12/20 18 06/12/2018 CMP, serum or plasm a AST 16 U/L 0-37 Not Available [facility] [address] [place], [address], 06/12/2018 15:13:28 06/12/20 18 06/12/2018 CMP, serum or plasm a ALT 18 U/L 0-40 Not Available [facility] [address] [place], [address], 06/12/2018 15:13:28 06/12/20 18 06/12/2018 CMP, serum or plasm a globulin 2.5 g/dL 1-4.8 Not Available [facility] [address] [place] [address], [address], 06/12/2018 15:13:28 06/12/20 18 06/12/2018 CMP, serum or plasm a eGFR 66 mL/mi n/1.7 3m2 >59 If patie nt is black , multi ply resul t by 1.159 . Estim ated glome rular filtr ation rate calcu lated using the CKD-E PI equat ion. Not Available [facility] [address] [place] [address], [id number], 06/12/2018 15:13:28 06/12/20 18 06/12/2018 CMP, serum or plasm a anion gap 17 mmol/ L 10-20 Not Available [facility] [address] [place] [address], [address], 06/12/2018 15:13:28 06/12/20 18 06/12/2018 C-andra ctive prote in, quant itati ve, serum or plasm a C reactive protein 3.3 mg/L 0.0-4. 0 Not Available [facility] [address] [place], [address], 06/12/2018 15:13:30 06/12/20 18 06/13/2018 HBsAg (hepa titis B surfa ce Ag), serum HBV surface antigen Negati ve negati ve Not Available [facility] [address] [place] [address], [id number], 06/13/2018 10:03:22 06/12/20 18 06/13/2018 hepat itis B virus core Ab, quali tativ e, serum hep B core Ab, tot Negati ve negati ve Not Available [facility] [address] [place] [address], [id number], 06/13/2018 10:03:24 06/12/20 18 06/14/2018 tb (M [...] a level <0.35 IU/mL . Not Available [facility] [address] [place], [address], 06/14/2018 19:02:21 06/12/20 18 06/14/2018 tb (M tuber culos is), ifn-g deonte sai , blood TB1 Ag minus nil 0.11 IU/mL Not Available [facility] [address] [place] [address], [address], 06/14/2018 19:02:21 06/12/20 18 06/14/2018 tb (M tuber culos is), ifn-g deonte sai , blood TB2 Ag minus nil 0.00 IU/mL Not Available [facility] [address] [place], [address], 06/14/2018 19:02:21 06/12/20 18 06/14/2018 tb (M tuber culos is), ifn-g deonte sai , blood mitogen minus nil 2.75 IU/mL Not Available [facility] [address] [place] [address], [address], 06/14/2018 19:02:21 06/12/20 18 06/14/2018 tb (M tuber culos is), ifn-g deonte sai , blood nil result 0.01 IU/mL Not Available [facility] [address] [place] [address], [address], 06/14/2018 19:02:21 10/18/19 19 10/17/2018 CBC w/ auto diff WBC 10.03 K/uL 3.40-1 1.20 Not Available [facility] [address] [place] [address], [address], 10/17/2018 15:41:19 10/18/19 19 10/17/2018 CBC w/ auto diff RBC 4.02 M/uL 3.80-4 .80 Not Available [facility] [address] [place] [address], [address], 10/17/2018 15:41:19 10/18/19 19 10/17/2018 CBC w/ auto diff HGB 11.9 g/dL 12.0-1 5.0 low Not Available [facility] [address] [place] [address], [address], 10/17/2018 15:41:19 10/18/19 19 10/17/2018 CBC w/ auto diff HCT 35.2 % 36.0-4 6.0 low Not Available [facility] [address] [place] [address], [address], 10/17/2018 15:41:19 10/18/19 19 10/17/2018 CBC w/ auto diff plt 236 K/uL 130-40 0 Not Available [facility] [address] [place], [address], 10/17/2018 15:41:19 10/18/19 19 10/17/2018 CBC w/ auto diff MCV 87.6 fL 79.0-9 8.0 Not Available [facility] [address] [place], [address], 10/17/2018 15:41:19 10/18/19 19 10/17/2018 CBC w/ auto diff MCH 29.6 pg 27.0-3 4.8 Not Available [facility] [address] [place], [address], 10/17/2018 15:41:19 10/18/19 19 10/17/2018 CBC w/ auto diff MCHC 33.8 g/dL 31.5-3 6.0 Not Available [facility] [address] [place], [address], 10/17/2018 15:41:19 10/18/1910/17/2018 CBC w/ auto diff RDW 12.9 % 10.8-1 4.6 Not Available [facility] [address] [place], [address], 10/17/2018 15:41:19 10/18/1910/17/2018 CBC w/ auto diff MPV 11.0 fL 9.4-12 .4 Not Available [facility] [address] [place], [address], 10/17/2018 15:41:19 10/18/1910/17/2018 CBC w/ auto diff NRBC 0.00 /100_ WBCs 0.00 Not Available [facility] [address] [place], [address], 10/17/2018 15:41:19 10/18/19 19 10/17/2018 CBC w/ auto diff absolute NRBC 0.00 K/uL 0.00 Not Available [facility] [address] [place], [address], 10/17/2018 15:41:19 10/18/19 19 10/17/2018 CBC w/ auto diff diff method Auto Not Available [facility] [address] [place], [address], 10/17/2018 15:41:19 10/18/19 19 10/17/2018 CBC w/ auto diff neuts 70.1 % 45.30- 77.70 Not Available [facility] [address] [place], [address], 10/17/2018 15:41:19 10/18/19 19 10/17/2018 CBC w/ auto diff lymphs 18.2 % 12.30- 39.70 Not Available [facility] [address] [place], [address], 10/17/2018 15:41:19 10/18/19 19 10/17/2018 CBC w/ auto diff monos 7.4 % 4.10-1 2.80 Not Available [facility] [address] [place], [address], 10/17/2018 15:41:19 10/18/19 19 10/17/2018 CBC w/ auto diff eos 2.8 % 0-7.2 Not Available [facility] [address] [place], [address], 10/17/2018 15:41:19 10/18/19 19 10/17/2018 CBC w/ auto diff basos 1.1 % 0-2.80 Not Available [facility] [address] [place], [address], 10/17/2018 15:41:19 10/18/19 19 10/17/2018 CBC w/ auto diff granulocytes , immature (%) 0.4 % 0.0-0. 9 Not Available [facility] [address] [place], [address], 10/17/2018 15:41:19 10/18/19 19 10/17/2018 CBC w/ auto diff absolute neuts 7.03 K/uL 1.40-7 .70 Not Available [facility] [address] [place], [address], 10/17/2018 15:41:19 10/18/19 19 10/17/2018 CBC w/ auto diff absolute lymphs 1.83 K/uL 0.60-3 .20 Not Available [facility] [address] [place], [address], 10/17/2018 15:41:19 10/18/19 19 10/17/2018 CBC w/ auto diff absolute monos 0.74 K/uL 0.11-0 .59 high Not Available [facility] [address] [place], [address], 10/17/2018 15:41:19 10/18/19 19 10/17/2018 CBC w/ auto diff absolute eos 0.28 K/uL 0.01-0 .50 Not Available [facility] [address] [place], [address], 10/17/2018 15:41:19 10/18/19 19 10/17/2018 CBC w/ auto diff absolute basos 0.11 K/uL 0.00-0 .08 high Not Available [facility] [address] [place] [address], [id number], 10/17/2018 15:41:19 10/18/19 19 10/17/2018 CBC w/ auto diff granulocytes , immature 0.04 K/uL 0.00-0 .05 Not Available [facility] [address] [place], [address], 10/17/2018 15:41:19 10/18/19 19 10/17/2018 eryth rocyt e sedim entat ion rate by prema gonzalez d ESR 5 mm/h 0-30 Not Available [facility] [address] [place], [address], 10/17/2018 16:22:09 10/18/19 19 10/17/2018 CMP, serum or plasm a sodium 143 mmol/ L 133-14 6 Not Available [facility] [address] [place], [address], 10/17/2018 16:48:20 10/18/19 19 10/17/2018 CMP, serum or plasm a potassium 4.3 mmol/ L 3.3-5. 1 Not Available [facility] ([facility] [address] [place], [address], 10/17/2018 16:48:20 10/18/19 19 10/17/2018 CMP, serum or plasm a chloride 104 mmol/ L 96-108 Not Available [facility] ([facility] [address] [place], [address], 10/17/2018 16:48:20 10/18/19 19 10/17/2018 CMP, serum or plasm a CO2 26 mmol/ L 21-35 Not Available [facility] (Out[facility] [address] [place], [address], 10/17/2018 16:48:20 10/18/19 19 10/17/2018 CMP, serum or plasm a BUN 28 mg/dL 6-19 high Not Available [facility] (Out[facility]) [address] [place], [address], 10/17/2018 16:48:20 10/18/19 19 10/17/2018 CMP, serum or plasm a creatinine 1.00 mg/dL 0.5-1. 5 Not Available [facility] ([facility] [address] [place], [address], 10/17/2018 16:48:20 10/18/19 19 10/17/2018 CMP, serum or plasm a glucose 127 mg/dL 70-99 high Not Available [facility] (Out[facility]) [address] [place], [address], 10/17/2018 16:48:20 10/18/19 19 10/17/2018 CMP, serum or plasm a albumin 4.3 g/dL 3.9-4. 8 Not Available [facility] ([facility] [address] [place], [address], 10/17/2018 16:48:20 10/18/19 19 10/17/2018 CMP, serum or plasm a total protein 6.9 g/dL 6.5-8. 0 Not Available [facility] (Out[facility] [address] [place], [address], 10/17/2018 16:48:20 10/18/19 19 10/17/2018 CMP, serum or plasm a calcium 9.5 mg/dL 8.4-10 .3 Not Available [facility] ([facility] [address] [place], [address], 10/17/2018 16:48:20 10/18/19 19 10/17/2018 CMP, serum or plasm a alkaline phosphatase 74 U/L 39-117 Not Available [facility] (Outpatient) [address] [place], [address], 10/17/2018 16:48:20 10/18/19 19 10/17/2018 CMP, serum or plasm a total bilirubin 0.3 mg/dL 0.0-1. 2 Not Available [facility] (Out[facility] [address] [place], [address], 10/17/2018 16:48:20 10/18/19 19 10/17/2018 CMP, serum or plasm a AST 19 U/L 0-37 Not Available [facility] ([facility] [address] [place], [address], 10/17/2018 16:48:20 10/18/19 19 10/17/2018 CMP, serum or plasm a ALT 17 U/L 0-40 Not Available [facility] ([facility] [address] [place], [address], 10/17/2018 16:48:20 10/18/19 19 10/17/2018 CMP, serum or plasm a globulin 2.6 g/dL 1-4.8 Not Available [facility] [address] [place] [address], [address], 10/17/2018 16:48:20 10/18/19 19 10/17/2018 CMP, serum or plasm a eGFR 58 mL/mi n/1.7 3m2 >59 low If patie nt is black , multi ply resul t by 1.159 . Estim ated glome rular filtr ation rate calcu lated using the CKD-E PI equat ion. Not Available [facility]) [address] [place] [address], [address], 10/17/2018 16:48:20 10/18/19 19 10/17/2018 CMP, serum or plasm a anion gap 17 mmol/ L 10-20 Not Available [facility]) [address] [place] [address], [address], 10/17/2018 16:48:20 10/18/19 19 10/17/2018 C-andra ctive prote in, quant itati ve, serum or plasm a C reactive protein 6.2 mg/L 0.0-4. 0 high Not Available [facility] ([facility] [address] [place], [address], 10/17/2018 16:48:21 01/17/20 19 01/16/2019 CBC w/ auto diff WBC 10.98 K/uL 3.40-1 1.20 Not Available [facility] ([facility] [address] [place], [address], 01/16/2019 16:23:22 01/17/20 19 01/16/2019 CBC w/ auto diff RBC 4.04 M/uL 3.80-4 .80 Not Available [facility] ([facility] [address] [place], [address], 01/16/2019 16:23:22 01/17/20 19 01/16/2019 CBC w/ auto diff HGB 11.9 g/dL 12.0-1 5.0 low Not Available [facility] ([facility] [address] [place], [address], 01/16/2019 16:23:22 01/17/20 19 01/16/2019 CBC w/ auto diff HCT 35.3 % 36.0-4 6.0 low Not Available [facility] ([facility] [address] [place], [address], 01/16/2019 16:23:22 01/17/20 19 01/16/2019 CBC w/ auto diff plt 274 K/uL 130-40 0 Not Available [facility] ([facility] [address] [place], [address], 01/16/2019 16:23:22 01/17/20 19 01/16/2019 CBC w/ auto diff MCV 87.4 fL 79.0-9 8.0 Not Available [facility] ([facility] [address] [place], [address], 01/16/2019 16:23:22 01/17/20 19 01/16/2019 CBC w/ auto diff MCH 29.5 pg 27.0-3 4.8 Not Available [facility] ([facility] [address] [place], [address], 01/16/2019 16:23:22 01/17/20 19 01/16/2019 CBC w/ auto diff MCHC 33.7 g/dL 31.5-3 6.0 Not Available [facility] [address] [place], [address], 01/16/2019 16:23:22 01/17/20 19 01/16/2019 CBC w/ auto diff RDW 13.3 % 10.8-1 4.6 Not Available [facility] ([facility] [address] [place], [address], 01/16/2019 16:23:22 01/17/20 19 01/16/2019 CBC w/ auto diff MPV 11.7 fL 9.4-12 .4 Not Available [facility] ([facility] [address] [place], [address], 01/16/2019 16:23:22 01/17/20 19 01/16/2019 CBC w/ auto diff NRBC 0.00 /100_ WBCs 0.00 Not Available [facility] [address] [place], [address], 01/16/2019 16:23:22 01/17/20 19 01/16/2019 CBC w/ auto diff absolute NRBC 0.00 K/uL 0.00 Not Available [facility] ([facility] [address] [place], [address], 01/16/2019 16:23:22 01/17/20 19 01/16/2019 CBC w/ auto diff diff method Auto Not Available [facility] [address] [place], [address], 01/16/2019 16:23:22 01/17/20 19 01/16/2019 CBC w/ auto diff neuts 81.4 % 45.30- 77.70 high Not Available [facility] ([facility] [address] [place], [address], 01/16/2019 16:23:22 01/17/20 19 01/16/2019 CBC w/ auto diff lymphs 10.6 % 12.30- 39.70 low Not Available [facility]) [address] [place] [address], [address], 01/16/2019 16:23:22 01/17/20 19 01/16/2019 CBC w/ auto diff monos 4.7 % 4.10-1 2.80 Not Available [facility] [address] [place] [address], [address], 01/16/2019 16:23:22 01/17/20 19 01/16/2019 CBC w/ auto diff eos 2.0 % 0-7.2 Not Available [facility]) [address] [place] [address], [address], 01/16/2019 16:23:22 01/17/20 19 01/16/2019 CBC w/ auto diff basos 1.0 % 0-2.80 Not Available [facility]) [address] [place] [address], [address], 01/16/2019 16:23:22 01/17/20 19 01/16/2019 CBC w/ auto diff granulocytes , immature (%) 0.3 % 0.0-0. 9 Not Available [facility] [address] [place] [address], [address], 01/16/2019 16:23:22 01/17/20 19 01/16/2019 CBC w/ auto diff absolute neuts 8.94 K/uL 1.40-7 .70 high Not Available [facility] ([facility]) [address] [place] [address], [address], 01/16/2019 16:23:22 01/17/20 19 01/16/2019 CBC w/ auto diff absolute lymphs 1.16 K/uL 0.60-3 .20 Not Available [facility] ([facility]) [address] [place] [address], [address], 01/16/2019 16:23:22 01/17/20 19 01/16/2019 CBC w/ auto diff absolute monos 0.52 K/uL 0.11-0 .59 Not Available [facility] ([facility]) [address] [place], [address], 01/16/2019 16:23:22 01/17/20 19 01/16/2019 CBC w/ auto diff absolute eos 0.22 K/uL 0.01-0 .50 Not Available [facility] ([facility]) [address] [place], [address], 01/16/2019 16:23:22 01/17/20 19 01/16/2019 CBC w/ auto diff absolute basos 0.11 K/uL 0.00-0 .08 high Not Available [facility] ([facility]) [address] [place], [address], 01/16/2019 16:23:22 01/17/20 19 01/16/2019 CBC w/ auto diff granulocytes , immature 0.03 K/uL 0.00-0 .05 Not Available [facility] ([facility] [address] [place], [address], 01/16/2019 16:23:22 01/17/20 19 01/16/2019 eryth rocyt e sedim entat ion rate by prema sanchezo d ESR 9 mm/h 0-30 Not Available [facility] ([facility]) [address] [place], [address], 01/16/2019 17:39:50 01/17/20 19 01/16/2019 C-andra ctive prote in, quant itati ve, serum or plasm a C reactive protein 5.2 mg/L 0.0-4. 0 high Not Available [facility] ([facility]) [address] [place], [address], 01/16/2019 18:50:56 01/17/20 19 01/16/2019 CMP, serum or plasm a sodium 141 mmol/ L 133-14 6 Not Available [facility] ([facility]) [address] [place], [address], 01/16/2019 22:11:00 01/17/20 19 01/16/2019 CMP, serum or plasm a potassium 4.4 mmol/ L 3.3-5. 1 Not Available [facility] ([facility]) [address] [place], [address], 01/16/2019 22:11:00 01/17/20 19 01/16/2019 CMP, serum or plasm a chloride 102 mmol/ L 96-108 Not Available [facility] ([facility]) [address] [place], [address], 01/16/2019 22:11:00 01/17/20 19 01/16/2019 CMP, serum or plasm a CO2 23 mmol/ L 21-35 Not Available [facility] ([facility]) [address] [place], [address], 01/16/2019 22:11:00 01/17/2001/16/2019 CMP, serum or plasm a BUN 23 mg/dL 6-19 high Not Available [facility] ([facility]) [address] [place], [address], 01/16/2019 22:11:00 01/17/2001/16/2019 CMP, serum or plasm a creatinine 1.50 mg/dL 0.5-1. 5 Not Available [facility] ([facility]) [address] [place], [address], 01/16/2019 22:11:00 01/17/2001/16/2019 CMP, serum or plasm a glucose 161 mg/dL 70-99 high Not Available [facility] ([facility]) [address] [place], [address], 01/16/2019 22:11:00 01/17/2001/16/2019 CMP, serum or plasm a albumin 4.0 g/dL 3.9-4. 8 Not Available [facility] ([facility]) [address] [place], [address], 01/16/2019 22:11:00 01/17/20 19 01/16/2019 CMP, serum or plasm a total protein 6.8 g/dL 6.5-8. 0 Not Available [facility] ([facility]) [address] [place], [address], 01/16/2019 22:11:00 01/17/20 19 01/16/2019 CMP, serum or plasm a calcium 9.0 mg/dL 8.4-10 .3 Not Available [facility] ([facility]) [address] [place], [address], 01/16/2019 22:11:00 01/17/20 19 01/16/2019 CMP, serum or plasm a alkaline phosphatase 78 U/L 39-117 Not Available [facility] (Out[facility]) [address] [place], [address], 01/16/2019 22:11:00 01/17/20 19 01/16/2019 CMP, serum or plasm a total bilirubin 0.4 mg/dL 0.0-1. 2 Not Available [facility] ([facility]) [address] [place], [address], 01/16/2019 22:11:00 01/17/20 19 01/16/2019 CMP, serum or plasm a AST 21 U/L 0-37 Not Available [facility] ([facility]) [address] [place], [address], 01/16/2019 22:11:00 01/17/20 19 01/16/2019 CMP, serum or plasm a ALT 19 U/L 0-40 Not Available [facility] ([facility]) [address] [place], [address], 01/16/2019 22:11:00 01/17/20 01/16/2019 CMP, serum or plasm a globulin 2.8 g/dL 1-4.8 Not Available [facility] ([facility]) [address] [place], [address], 01/16/2019 22:11:00 01/17/20 19 01/16/2019 CMP, serum or plasm a eGFR 35 mL/mi n/1.7 3m2 >59 low If patie nt is black , multi ply resul t by 1.159 . Estim ated glome rular filtr ation rate calcu lated using the CKD-E PI equat ion. Not Available [facility] ([facility]) [address] [place], [address], 01/16/2019 22:11:00 01/17/20 19 01/16/2019 CMP, serum or plasm a anion gap 20 mmol/ L 10-20 Not Available [facility] ([facility]) [address] [place], [address], 01/16/2019 22:11:00 06/12/20 18 06/12/2018 xr chest [...] MD Final result [facility] states [facility] [address] [place], [address], 06/12/2018 20:56:35 09/07/19 19 09/06/2018 bd dxa [...] Jane MD 9 Final result NATALIE Kaur [facility] [address] [facility], [place], [address], 09/08/2018 18:43:16 Result Notes None recorded. 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 673909955 Active 2017 admitted to [place]; lamicatal 11/2017 Natalie Reveles MD [address] [place] [address] Betty Hernán[place], [address], [facility] 8 20:36:49 Gastroes ophageal reflux disease 955855936 [facility] 15:[facility] Mixed hyperlip idemia 647875588 Active 2001 Natalie Reveles MD [address] [place] [address] Betty Hernán[place], [address], [facility] 6 12:19:12 Colitis, enteriti s and gastroen teritis presumed infectio us 051028663 Completed 200611/06/2009 Natalie Reveles MD [address] [place] [address] [place]án[place], [address], [facility] 6 15:03:24 Nausea 432777707 Completed 200611/06/2009 Natalie Reveles MD [address] [place] [address] [place]án[place], [address], [facility] 6 15:03:24 Essentia l hyperten lindsay 10584259 Completed 200311/06/2009 Natalie Reveles MD [address] [place] [address] [place]án[place], [address], [facility] 6 15:03:24 Nausea and vomiting 23835126 Completed 200611/06/2009 Natalie Reveles MD [address] [place] [address] [place]án[place], [address], [facility] 6 15:03:24 Cellulit is and abscess of buttock 291411885 Completed 200011/06/2009 Natalie Reveles MD [address] [place] [address] [place]án[place], [address], [facility] 6 15:03:24 Urinary tract infectio us disease 75012155 Completed 200711/06/2009 Natalie Reveles MD [address] [place] [address] [place]án[place], [address], [facility] 6 15:03:24 Benign essentia l hyperten lindsay 0989606 Active 2001 Natalie Reveles MD [address] [place] [address] [place]án[place], [address], [facility] 6 12:19:12 Acute cystitis 00414057 Completed 200411/06/2009 Natalie Reveles MD [address] [place] [address] [place]án[place], [address], [facility] 6 15:03:24 Acute pain 043304924 Completed 200711/06/2009 Natalie Reveles MD [address] [place] [address] [place]án[place], [address], [facility] 6 15:03:24 Allergic rhinitis 95045788 Completed 200511/06/2009 Natalie Reveles MD [address] [place] [address] [place]án[place], [address], [facility] 6 15:03:24 Osteoart hritis 593078494 Completed 200711/06/2009 Natalie Reveles MD [address] [place] [address] Betty Hernán[place], [address], [facility] 6 15:03:24 Sciatica 50526789 Active 2007 spinal stenosis Natalie Reveles MD [address] [place] [address] [place]án[place], [address], [facility] 6 15:03:24 Diabetic on insulin 234710385 Active Natalie Reveles MD [address] [place] [address] [place]án[place], [address], [facility] 6 12:19:12 Type 2 diabetes 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 complica tion 763985225 Active 2004 Natalie Reveles MD [address] [place] [address] Betty [place]án[place], [address], [facility] 6 12:19:12 Anemia 180900703 Completed 200611/06/2009 Natalie Reveles MD [address] [place] [address] Betty [place]án[place], [address], [facility] 6 15:03:24 Acute maxillar y sinusiti s 98085773 Completed 200311/06/2009 Natalie Reveles MD [address] [place] [address] [place]án[place], [address], [facility] 6 15:03:24 Arteriti s 26336733 Completed 200511/06/2009 Natalie Reveles MD [address] [place] [address] [place]án[place], [address], [facility] 6 15:03:24 Uncontro lled type 2 diabetes mellitus 795194471 Completed 200606/12/2013 Natalie Reveles MD [address] [place] [address] [place]án[place], [address], [facility] 6 15:03:24 Generali zed osteoart hritis 426359880 Completed 200006/12/2013 Natalie Reveles MD [address] [place] [address] [place]án[place], [address], [facility] 6 15:03:24 Hyperlip idemia 50530993 Completed 200111/06/2009 Natalie Reveles MD [address] [place] [address] Betty [place]án[place], [address], [facility] 6 15:03:24 Backache 641491288 Completed 200711/06/2009 Natalie Reveles MD [address] [place] [address] [place]án[place], [address], [facility] 6 15:03:24 Malaise and fatigue 572749578 Completed 200111/06/2009 Natalie Reveles MD [address] [place], [place] [address], [address], [facility] 6 15:03:24 Contact dermatit is 47488426 Completed 11/06/2009 Natalie Reveles MD [address] [place] [address] Betty Hernán[place], [address], [facility] 6 15:03:24 Cough 01512569 Completed 200411/06/2009 Natalie Reveles MD [address] [place] [address] [place]án[place], [address], [facility] 6 15:03:24 Rheumato id arthriti s 28443947 Active sero-nega tive Natalie Reveles MD [address] [place] [address] [place]án[place], [address], [facility] 6 12:19:12 Fever 188179577 Completed 200611/06/2009 Natalie Reveles MD [address] [place] [address] [place]án[place], [address], [facility] 6 15:03:24 Allergic asthma without status asthmati cus 74543286 Active 2002 Natalie Reveles MD [address] [place] [address] [place]án[place], [address], [facility] 6 15:03:24 Acute sinusiti s 59684611 Completed 05/14/2013 Natalie Reveles MD [address] [place] [address] [place]án[place], [address], [facility] 6 15:03:24 Common cold 49922720 Completed 200211/06/2009 Natalie Reveles MD [address] [place] [address] [place]án[place], [address], [facility] 6 15:03:24 Common cold 28991760 Completed 05/14/2013 Natalie Reveles MD [address] [place] [address] [place]án[place], [address], [facility] 6 15:03:24 On examinat ion - a rash Completed 200511/06/2009 Natalie Rveeles MD [address] [place], [place] [address], [address], [facility] 6 15:03:24 General symptom 694660161 Completed 200611/06/2009 Natalie Reveles MD [address] [place], [place] [address], [address], [facility] 6 15:03:24 Blood chemistr y outside referenc e range 268298819 Completed 200311/06/2009 Natalie Reveles MD [address] [place], [place] [address], [address], [facility] 6 15:03:24 Hypothyr oidism 28388005 Completed 200607/22/2015 Natalie Reveles MD [address] [place], [place] [address], [address], [facility] 6 15:03:24 Mononeur itis 82321966 Active 2003 Natalie Reveles MD [address] [place], [place] [address] [place], [address], [facility] 6 15:03:24 Primary fibromya lgia syndrome 75937006 Completed 200211/06/2009 Natalie Reveles MD [address] [place], [place] [address], [address], [facility] 6 15:03:24 Vaginiti s and vulvovag initis Completed 200011/06/2009 Natalie Reveles MD [address] [place], [place] [address] [place], [address], [facility] 6 15:03:24 Problem Notes None recorded. Procedures Surgical History Date Name Laterality Status Provider Name and Address Organization Details Recorded Time 9 Medicare Wellness Visit completed Sarah Jewell MA [facility] 12/31/2018 14:43:15 8 Medicare Wellness Visit completed Liz Boyce CMA [facility] 12/27/2017 15:09:17 8 Post hospital/SNF follow-up/[facility] sitional Care completed Liz Boyce CMA [facility] 11/13/2017 14:14:12 8 Nebulizer Tx completed Karmen White LPN [facility] 08/02/2017 14:24:48 7 Medicare Wellness Visit completed Mary Finley MA [facility] 12/25/2016 09:27:15 Imaging Results Imaging Date Name Status LastModified by Organiz ation Details LastModified Time 06/12/2018 xr chest Pa and lateral 2 views completed [facility] [address] [place], [address], 06/12/2018 20:56:35 09/06/2018 bd dxa axial (spine) with hip completed [facility] [address] [place], [address], 09/08/2018 18:43:16 Procedure Notes None recorded. Medical Equipment None Reported. Allergies Allergen ID Allergen Name Allergen Category Reaction Reaction Severity Criticality Documentation Date Start Date Code Code System Note Provider Name and Address Organization Details Recorded Time 782362 doxycycli ne Not available nausea Not available Not available 11/27/2013 3640 RxNorm Kacey Espinoza MA [facility] 4 10:10:57 753844 codeine medicatio n nausea Not available Not available 08/17/2015 2670 RxNorm Angelica Hicks CMA [facility] 6 16:23:36 78284 Substance with sulfonami de structure and antibacte rial mechanism of action (substanc e) medicatio n hives Not available Not available 06/29/2010 21249 8003 SNOMED Not Available [facility] 1 06:05:41 [...] EVERY DAY AT BEDTIME 11/13 completed per [facility] d/c 11/08/17 new dose as follows: [...] Updated DateTime 8 147.95 cm 35.9 kg/m2 15246.1 8 g 80 /min 97 % 97 % 126 mm[Hg] 74 mm[Hg] Sarah Jewell MA [facility] 8 10:50:58 Date Recorded Body height Body mass index (BMI) Body weight Heart rate Systolic blood pressure Diastolic blood pressure Provider Name and Address Organization Details Last Updated DateTime 9 147.95 cm 35.7 kg/m2 25641.6 9 g 64 /min 90 mm[Hg] 54 mm[Hg] Marcia Baron MA [facility] 9 11:24:40 Date Recorded Body height Body mass index (BMI) Body weight Oxygen saturation Oxygen saturation in Arterial blood by Pulse oximetry Heart rate Systolic blood pressure Diastolic blood pressure Provider Name and Address Organization Details Last Updated DateTime 9 147.95 cm 36.3 kg/m2 33417.7 6 g 96 % 96 % 76 /min 120 mm[Hg] 62 mm[Hg] Sarah Jewell MA [facility] 9 14:52:36 Date Recorded Systolic blood pressure Diastolic blood pressure Systolic blood pressure Diastolic blood pressure Provider Name and Address Organization Details Last Updated DateTime 12/31/2018 120 mm[Hg] 60 mm[Hg] 120 mm[Hg] 60 mm[Hg] Kassie Reynolds [facility] 9 15:58:43 Date Recorded Body height Body mass index (BMI) Body weight Body temperature Heart rate Oxygen saturation Oxygen saturation in Arterial blood by Pulse oximetry Systolic blood pressure Diastolic blood pressure Provider Name and Address Organization Details Last Updated DateTime 147.95 cm 35.9 kg/m2 66584.5 8 g 97.9 [degF] 88 /min 96 % 96 % 114 mm[Hg] 62 mm[Hg] Brooks laurent [facility] 9 09:44:29 Social History Question Answer Notes LastModified by Organizat ion Details LastModified Time Tobacco Smoking Status Never Smoker Not Available [facility] 05/11/2011 04:54:19 Do You Have An Advance Directive? No Information not available 12/11/2013 Do You Wear A Helmet When Biking? No Information not available 06/23/2014 What Is Your Level Of Caffeine Consumption? Moderate 4 Cups Tea Daily [email or web address] Information not available 12/27/2017 How Much Tobacco Do You Chew? None Information not available 05/11/2011 What Type Of Diet Are You Following? REGULAR Information not available 05/11/2011 Which Illicit Or Recreational Drugs Have You Used? None spise Information not available 08/29/2018 How Many Days In The Past Year Have You Had A Heavy Drinking Consumption (4+ Female, 5+ Male)? 0 Information not available 11/30/2016 Are There Any Guns Present In Your Home? No 17 Information not available 05/11/2011 Live Alone Or With Others? With Others Sister, Uncle, Brother In Law Information not available 06/12/2013 CSRP - Narcotics No Informat ion not available 06/23/2014 CSRP Contract Signed And Discussed No Information not available 06/23/2014 Patient Has Health Care Proxy Signed And In Chart No Information not available 12/11/2013 CSRP - Stimulants No Information not available 06/23/2014 CSRP - Suboxone No Informati on not available 07/22/2015 CCM Consent Discussion 04/30/2018 amada Information not available 04/30/2018 Marital Status [id number] Information not available 05/11/2011 Mosquito Repellent Used Routinely Yes Information not available 05/11/2011 What Was The Date Of Your Most Recent Tobacco Screening? 02/20/2019 Information not available 02/20/2019 How Many Children Do You Have? 3 Yes Information not available 06/12/2013 Seat Belts Used Routinely Yes 17 Information not available 05/11/2011 Smoke Alarm In Home Yes 17 Information not available 05/11/2011 How Much Tobacco Do You Smoke? No Information not available 04/29/2015 General Stress Level Medium Information not available 04/29/2015 Do You Use Sunscreen Routinely? Yes 17 Information not available 05/11/2011 Sex: Unknown Functional Status Question Answer Note LastModified by Organizat ion Details LastModified Time What is your level of alcohol consumption? Occasional Once yearly maybe ashelkey Information not available 12/31/2018 Do you or have you ever used smokeless tobacco? Never used smokeless tobacco Information not available 02/20/2019 What is your occupation? Retired Health Information [employer] Information not available 12/31/2018 Do you or have you ever used e-cigarettes or vape? Never used electronic cigarettes Information not available 02/20/2019 Mental Status None recorded. Family History Relationship [...] toxoid, unspecified formulation 1 completed Not Available [facility] 07/12/2019 02:34:13 influenza, unspecified formulation 0 completed Not Available [facility] 05/10/2011 05:22:52 Influenza, split virus, trivalent, preservative 1 completed Mary Watts MA [facility] 05/17/2011 14:09:08 Tdap 1 completed Fang Robison RN [facility] 06/12/2011 16:12:51 influenza, unspecified formulation 2 [facility] 16:38:35 influenza, unspecified formulation 3 [facility] 06/12/2013 16:12:54 influenza, unspecified formulation 4 [facility] 06/23/2014 15:26:51 influenza, unspecified formulation 5 [facility] 04/29/2015 14:13:29 Pneumococcal conjugate PCV 13 8 completed Not Available [facility] 07/12/2019 02:22:36 Hep B, adult 9 completed Not Available [facility] 07/12/2019 02:34:54 influenza, unspecified formulation 6 completed Not Available [facility] 07/26/2019 02:10:42 pneumococcal polysaccharide PPV23 9 completed Not Available [facility] 07/12/2019 02:24:02 Influenza, split virus, quadrivalent, preservative 7 completed Liz Boyce CMA [facility] 05/03/2017 14:36:38 Past Encounters Encounter ID Performer Location Encounter Start Date Encounter Closed Date Diagnosis/Indication Diagnosis SNOMED-CT Code Diagnosis ICD10 Code Diagnosis Note [id number] Natalie Reveles MD , [facility], [address] [place] [address] 09/14/2000 12:00:00 07/15/2008 02:02:29 [id number] Natalie Reveles MD , [facility], [address] [place] [address] 10/16/2000 10:45:00 07/15/2008 02:02:29 [id number] Elvis Grover MD , [facility], [address] [place] [address] 02/28/2001 14:15:00 07/15/2008 02:02:29 [id number] Elvis Grover MD , [facility], [address] [place] [address] 03/01/2001 09:45:00 07/15/2008 02:02:29 [id number] Natalie Reveles MD , [facility], [address] [place] [address] 10/22/2001 09:00:00 07/15/2008 02:02:29 [id number] [facility] - [facility] [address] [place] [address] 6 10/22/2001 10:30:00 07/15/2008 02:02:29 [id number] Natalie Reveles MD , [facility], [address] [place] [address] 12/02/2001 08:19:54 07/15/2008 02:02:29 [id number] [facility] , [address] [address] 12/02/2001 11:21:25 07/15/2008 02:02:29 [id number] [facility] - [address] [address] 04/24/2002 08:28:24 07/15/2008 02:02:29 [id number] Natalie Reveles MD , [facility], [address] [place] [address] 04/30/2002 16:42:20 07/15/2008 02:02:29 [id number] [facility] - [facility] [address] [place] [address] 07/22/2002 09:02:09 07/15/2008 02:02:29 [id number] Natalie Reveles MD , [facility], [address] [place] [address] 07/29/2002 16:39:59 07/15/2008 02:02:29 [id number] Natalie Reveles MD , [facility], [address] [place] [address] 10/30/2002 11:15:27 07/15/2008 02:02:29 [id number] [facility] - [facility] [address] [place] [address] 10/30/2002 12:12:41 07/15/2008 02:02:29 [id number] Natalie Reveles MD , [facility], [address] [place] [address] 6 12/31/2002 10:02:51 07/15/2008 02:02:29 [id number] [facility] - [facility] [address] [place] [address] 6 12/31/2002 00:00:00 07/15/2008 02:02:29 [id number] [facility] - [address] [address] 01/13/2003 11:28:31 07/15/2008 02:02:29 [id number] [facility] , [facility] [address] [place] [address] 01/15/2003 08:55:54 07/15/2008 02:02:29 [id number] ENRIKE Haq , [facility], [address] [place] [address] 07/03/2003 16:41:59 07/04/2003 10:51:01 [id number] Natalie Reveles MD , [facility], [address] [place] [address] 10/13/2003 14:52:44 10/14/2003 08:39:08 [id number] [facility] - [facility] [address] [place] [address] 10/22/2003 08:14:06 10/22/2003 08:14:10 [id number] Natalie Reveles MD , [facility], [address] [place] [address] 12/10/2003 14:34:40 12/12/2003 13:55:58 [id number] [facility] - [facility] [address] [place] [address] 03/30/2004 08:05:15 03/30/2004 08:05:20 [id number] Natalie Reveles MD , [facility], [address] [place] [address] 07/04/2004 13:43:22 07/04/2004 17:14:21 [id number] Natalie Reveles MD , [facility], [address] [place] [address] 07/26/2004 09:25:43 07/27/2004 08:19:25 [id number] Natalie Reveles MD , [facility], [address] [place] [address] 6 08/08/2004 15:52:00 08/09/2004 08:55:32 [id number] Natalie Reveles MD , [facility], [address] [place] [address] 09/05/2004 07:59:25 09/05/2004 15:25:12 [id number] ENRIKE Chambers , [facility], [address] [place] [address] 09/19/2004 13:51:52 09/19/2004 17:45:01 [id number] [facility] - [facility] [address] [place] [address] 10/05/2004 08:38:59 10/05/2004 08:39:04 [id number] Natalie Reveles MD , [facility], [address] [place] [address] 6 10/10/2004 07:58:34 10/10/2004 14:31:17 [id number] Valentine Mckenzie NP , [facility], [address] [place] [address] 11/03/2004 13:44:09 07/15/2008 02:02:29 [id number] [facility] - [facility] [address] [place] [address] 01/16/2005 08:22:10 01/16/2005 08:22:26 [id number] Natalie Reveles MD , [facility], [address] [place] [address] 6 01/24/2005 08:00:36 07/15/2008 02:02:29 [id number] [facility] , [facility] [address] [place] [address] 02/13/2005 11:40:53 07/15/2008 02:02:29 [id number] [facility] , [facility] [address] [place] [address] 02/13/2005 00:00:00 07/15/2008 02:02:29 [id number] Natalie Reveles MD , [facility], [address] [place] [address] 04/12/2005 08:22:15 07/15/2008 02:02:29 [id number] Rocky Lehman MD , [facility], [address] [place] [address] 04/28/2005 16:18:32 07/15/2008 02:02:29 [id number] [facility] - [address] [address] 08/22/2005 08:28:59 08/22/2005 08:29:02 [id number] Natalie Reveles MD , [facility], [address] [place] [address] 08/28/2005 15:40:14 08/29/2005 08:44:57 [id number] Natalie Reveles MD , [facility], [address] [place] [address] 09/21/2005 14:22:16 07/15/2008 02:02:29 [id number] [facility] - [address] [address] 09/21/2005 15:10:47 09/21/2005 15:11:05 [id number] [facility] - [address] [address] 01/23/2006 08:32:14 01/23/2006 08:32:24 [id number] Natalie Reveles MD , [facility], [address] [place] [address] 02/05/2006 11:04:33 02/06/2006 09:17:09 [id number] Natalie Reveles MD , [facility], [address] [place] [address] 03/21/2006 10:05:20 03/22/2006 08:20:24 [id number] Natalie Reveles MD , [facility], [address] [place] [address] 04/04/2006 11:34:15 04/08/2006 09:14:42 [id number] [facility] - [address] [address] 04/25/2006 08:18:53 04/25/2006 08:19:04 [id number] Natalie Reveles MD , [facility], [address] [place] [address] 05/03/2006 09:59:10 05/04/2006 08:46:05 [id number] [facility] , [facility] [address] [place] [address] 05/08/2006 08:08:08 07/15/2008 02:02:29 [id number] [facility] , [facility] [address] [place] [address] 05/08/2006 00:00:00 07/15/2008 02:02:29 [id number] Natalie Reveles MD , [facility], [address] [place] [address] 07/31/2006 08:56:23 07/31/2006 14:16:09 [id number] [facility] - [address] [address] 07/31/2006 10:36:02 07/31/2006 10:36:06 [id number] Natalie Reveles MD , [facility], [address] [place] [address] 08/07/2006 08:36:04 08/08/2006 08:58:07 [id number] [facility] - [address] [address] 10/22/2006 08:25:40 10/22/2006 08:25:45 [id number] Natalie Reveles MD , [facility], [address] [place] [address] 10/29/2006 07:59:04 10/29/2006 10:37:03 [id number] [facility] - [address] [address] 10/30/2006 08:27:25 10/30/2006 08:27:30 [id number] Elvis Grover MD , [facility], [address] [place] [address] 11/26/2006 10:44:18 11/26/2006 15:10:48 [id number] [facility] - [facility] [address] [place] [address] 11/26/2006 11:29:37 11/26/2006 11:29:44 [id number] Elvis Grover MD , [facility], [address] [place] [address] 12/06/2006 14:26:14 12/07/2006 08:30:34 [id number] Natalie Reveles MD , [facility], [address] [place] [address] 12/10/2006 13:46:03 12/11/2006 09:05:34 [id number] [facility] - [address] [address] 12/10/2006 14:31:03 12/10/2006 14:31:43 [id number] [facility] - [address] [address] 01/04/2007 07:54:29 01/04/2007 07:54:36 [id number] [facility] - [address] [address] 04/08/2007 08:14:44 04/08/2007 08:14:49 [id number] Natalie Reveles MD , [facility], [address] [place] [address] 04/15/2007 16:27:24 04/18/2007 08:58:27 [id number] [facility] , [facility] [address] [place] [address] 06/29/2007 09:23:36 07/01/2007 09:13:11 [id number] Natalie Reveles MD , [facility], [address] [place] [address] 09/20/2007 14:25:55 07/15/2008 02:02:29 [id number] MD RAJEEV Norwood, [facility], [address] [place] [address] 10/08/2007 14:05:16 07/15/2008 02:02:29 [id number] [facility] - [facility] [address] [place] [address] 10/29/2007 08:19:39 10/29/2007 08:19:43 [id number] Natalie Reveles MD , [facility], [address] [place] [address] 11/05/2007 09:43:59 07/15/2008 02:02:29 [id number] [facility] - [address] [address] 11/12/2007 08:23:38 11/12/2007 08:23:44 [id number] [facility] - [address] [address] 01/17/2008 12:48:01 01/17/2008 12:48:16 [id number] Natalie Reveles MD , [facility], [address] [place] [address] 01/24/2008 14:09:47 07/15/2008 02:02:29 [id number] [facility] - [address] [address] 01/24/2008 15:39:37 01/24/2008 15:40:02 [id number] [facility] - [address] [address] 01/24/2008 00:00:00 07/15/2008 02:02:29 [id number] Natalie Reveles MD , [facility], [address] [place] [address] 03/30/2008 10:44:06 07/15/2008 02:02:29 [id number] Abigail catalan, PT Physical Therapy, [address] [address] 03/31/2008 11:58:11 04/01/2008 09:12:25 [id number] Abigail catalan, PT Physical Therapy, [address] [address] 04/02/2008 08:36:13 04/02/2008 16:25:15 [id number] Abigail catalan, PT Physical Therapy, [address] [address] 04/07/2008 08:34:12 04/07/2008 14:43:31 [id number] Abigail catalan, PT Physical Therapy, [address] [address] 04/09/2008 08:37:17 04/09/2008 15:42:30 [id number] Abigail Carmita catalan, PT Physical Therapy, [address] [address] 6 04/14/2008 08:31:29 04/14/2008 14:21:06 [id number] [facility] - [address] [address] 07/07/2008 11:15:56 07/07/2008 11:16:03 [id number] MD RAJEEV Norwood, [facility], [address] [place] [address] 07/14/2008 13:28:43 07/24/2008 13:00:23 [id number] [facility] , [address] [address] 12/19/2008 08:52:20 12/22/2008 14:08:26 [id number] Rachel Obrien NP , [facility], [address] [place] [address] 06/24/2009 14:39:32 06/24/2009 16:02:12 [id number] MD RAJEEV Norwood, [facility], [address] [place] [address] 10/25/2009 13:26:11 11/10/2009 13:32:16 [id number] [facility] , [facility] [address] [place] [address] 10/25/2009 14:29:01 10/26/2009 11:21:38 [id number] MD RAJEEV Norwood, [facility], [address] [place] [address] 06/29/2010 11:23:06 07/26/2010 11:56:31 [id number] MD RAJEEV Norwood, [facility], [address] [place] [address] 09/22/2010 13:34:57 09/22/2010 17:04:13 [id number] MAGGIE Call, [facility], [address] [place] [address] 04/05/2011 09:42:34 04/05/2011 10:07:18 [id number] Oscar Islas MD , [facility], [address] [place] [address] 04/10/2011 09:24:01 04/11/2011 11:28:27 [id number] Natalie Reveles MD , [facility], [address] [place] [address] 05/17/2011 13:46:28 05/17/2011 15:12:35 [id number] [facility] Radiology , [facility] [address] [place] [address] 05/17/2011 14:58:54 05/22/2011 15:07:56 [id number] Natalie Reveles MD , [facility], [address] [place] [address] 05/26/2011 16:22:49 05/29/2011 14:16:46 [id number] Natalie Reveles MD , [facility], [address] [place] [address] 11/21/2011 11:10:29 11/21/2011 12:20:19 [id number] Natalie Reveles MD , [facility], [address] [place] [address] 05/21/2012 15:50:05 05/21/2012 17:16:10 [id number] ENRIKE Haq , [facility], [address] [place] [address] 08/06/2012 09:44:43 08/06/2012 10:34:24 [id number] Natalie Reveles MD , [facility], [address] [place] [address] 11/01/2012 15:29:43 11/04/2012 10:55:05 [id number] Natalie Reveles MD , [facility], [address] [place] [address] 02/21/2013 11:09:19 02/21/2013 12:15:52 Benign essential hypertension 7265798 continue to work on diet ,exercisea nd lowering salt intake as discussed Mixed hyperlipidemia 410869979 continue to work on diet and exercise as discussed Diabetic on insulin 568807120 Rheumatoid arthritis 14985342 [id number] Natalie Reveles MD , [facility], [address] [place] [address] 06/12/2013 15:53:14 06/12/2013 17:00:00 Benign essential hypertension 4528461 continue to work on diet ,exercisea nd lowering salt intake as discussed Mixed hyperlipidemia 345099906 continue to work on diet and exercise as discussed Adult [facility] th examination [id number] see Risk Assessment and Lifestyle Change Counseling section above Diabetic on insulin 017902481 Neuropathy due to diabetes mellitus 565198609 Mononeuritis 27764349 Rheumatoid arthritis 72091674 [id number] MINO SchumacherP-VANESA , [facility], [address] [place] [address] 06/19/2013 13:36:30 06/19/2013 14:00:11 Acute sinusitis 51638879 sx tx including afrin- strt ab if no relief Common cold 70512055 Upp er Respirator y Infection Drink plenty [...] days, or you have a high fever. [id number] Natalie Reveles MD , [facility], [address] [place] [address] 09/23/2013 13:47:10 09/24/2013 10:04:00 Sinusitis 72823901 [id number] Rocky Lehman MD , [facility], [address] [place] [address] 09/29/2013 16:41:29 09/30/2013 09:41:00 Acute sinusitis 81862022 [id number] Meghann Ayala NP , [facility], [address] [place] [address] 11/27/2013 09:59:23 11/27/2013 16:10:44 Cough [id number] Natalie Reveles MD , [facility], [address] [place] [address] 6 12/11/2013 14:25:08 12/11/2013 15:34:31 Benign essential hypertension 9442587 continue to work on diet ,exercisea nd lowering salt intake as discussed Mixed hyperlipidemia 199405321 continue to work on diet and exercise as discussed Neuropathy due to diabetes mellitus 536445434 Diabetic on insulin 100021517 [id number] Natalie Reveles MD , [facility], [address] [place] [address] 06/23/2014 15:01:46 06/23/2014 16:03:39 Spinal stenosis of lumbar region 44904312 Neuropathy due to diabetes mellitus 417139912 Diabetic on insulin 807177146 Allergic a sthma without status asthmaticus 12373441 Mixed hyperlipidemia 993545131 continue to work on diet and exercise as discussed Mononeuritis 53215137 Rheumatoid arthritis 69103712 Type 2 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 367150116 [id number] Natalie Reveles MD , [facility], [address] [place] [address] 12/31/2014 14:26:47 12/31/2014 15:36:09 Benign essential hypertension 1870995 continue to work on diet, exercise, and lowering salt intake as discussed Blood pressure at goal Mixed hyperlipidemia 602959310 continue to work on diet and exercise as discussed Diabetic on insulin 105370699 Rheumatoid arthritis 21910813 [id number] Natalie Reveles MD , [facility], [address] [place] [address] 04/29/2015 13:53:38 04/29/2015 14:45:02 Benign essential hypertension 1498744 I10 continue to work on diet, exercise, and lowering salt intake as discussed Mixed hyperlipidemia 267 067069 E78.2 continue to work on diet and exercise as discussed Diabetic on insulin 1707 78599 Z79.4 Type 2 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 885127847 E11.9 Neuropathy due to diabetes mellitus 611666131 E11.42 Allergic a sthma without status asthmaticus 18794364 J45.909 Rheumatoid arthritis 698 64605 M06.9 [id number] Natalie Reveles MD , [facility], [address] [place] [address] 07/22/2015 14:47:13 07/22/2015 15:54:33 Benign essential hypertension 7531683 I10 Blood pressure at goal continue to work on diet, exercise, and lowering salt intake as discussed Mixed hyperlipidemia 267 262580 E78.2 continue to work on diet and exercise as discussed Adult heal th examination 174333613 Z00.00 see Risk Assessment and Lifestyle Change Counseling section above Neuropathy due to diabetes mellitus 591710920 E11.42 Diabetic on insulin 1707 19136 Z79.4 Hypothyroidism 71080573 E03.9 Rheumatoid arthritis 698 71664 M06.9 Spinal shara nosis of lumbar region 90106856 M48.06 Type 2 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 859074275 E11.9 [id number] Batsheva Cobb MD , [facility], [address] [place] [address] 08/17/2015 16:10:28 08/17/2015 16:58:40 Acute sinusitis 52711856 J01.90 Eczema 63692638 L30.9 Asthma 621682079 J45.90 9 Allergic rhinitis 519696 04 J30.9 [id number] Natalie Reveles MD , [facility], [address] [place] [address] 11/23/2015 14:02:11 11/23/2015 15:24:07 Benign essential hypertension 0808338 I10 Blood pressure at goal continue to work on diet, exercise, and lowering salt intake as discussed Mixed hyperlipidemia 267 559629 E78.2 Cholestero l is at goal Continue to work on diet and exercise as discussed Neuropathy due to diabetes mellitus 735259259 E11.42 Rheumatoid arthritis 698 23418 M06.9 Type 2 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 404703353 E11.9 Diabetic on insulin 1707 33791 Z79.4 [id number] Natalie Reveles MD , [facility], [address] [place] [address] 03/23/2016 14:19:29 03/23/2016 15:26:40 Benign essential hypertension 8003331 I10 Blood pressure at goal Blood pressure NOT at goal. Mixed hyperlipidemia 267 345593 E78.2 continue to work on diet and exercise as discussed Sinusitis 38683626 J32.9 Eczema 51161699 L30.9 Diabetic on insulin 1707 61175 Z79.4 Mononeuritis 43560637 G5 8.9 Rheumatoid arthritis 698 69416 M06.9 [id number] Natalie Reveles MD , [facility], [address] [place] [address] 06/13/2016 14:40:53 06/13/2016 15:36:21 Acute sinusitis 37846738 J01.90 [id number] Natalie Reveles MD , [facility], [address] [place] [address] 11/30/2016 13:57:42 11/30/2016 15:08:02 Diabetic on insulin 364417413 Z79.4 Type 2 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 980735021 E11.9 Mixed hyperlipidemia 267 409847 E78.2 continue to work on diet and exercise as discussed Acute sinusitis 51806171 J01.90 [id number] Natalie Reveles MD , [facility], [address] [place] [address] 12/25/2016 09:20:57 12/25/2016 10:34:52 Adult health examination 835591985 Z00.00 see Risk Assessment and Lifestyle Change Counseling section above Counseling 795489601 Z71 .9 Mixed hyperlipidemia 267 305223 E78.2 continue to work on diet and exercise as discussed Benign ess ential hypertension 8640912 I10 Blood pressure at goal and re Mononeuritis 71332070 G5 8.9 Sciatica 51916206 M54.30 Diabetic on insulin 1707 03887 Z79.4 Rheumatoid arthritis 698 23667 M06.9 Neuropathy due to diabetes mellitus 397313165 E11.42 Hearing loss 57078026 H9 1.90 [id number] Natalie Reveles MD , [facility], [address] [place] [address] 05/03/2017 14:27:16 05/03/2017 15:21:54 Benign essential hypertension 6472727 I10 Blood pressure at goal . Mixed hyperlipidemia 267 365251 E78.2 continue to work on diet and exercise as discussed Sciatica 54275128 M54.30 Type 2 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 714369674 E11.9 Diabetic on insulin 1707 16591 Z79.4 Rheumatoid arthritis 698 05689 M06.9 [id number] Rachel Obrien NP , [facility], [address] [place] [address] 06/27/2017 15:27:55 06/27/2017 15:57:15 Acute sinusitis 51057620 J01.90 discussed tx options,. At this point will tx with abx, probiotics , nasal rinses and rest. RTC prn [id number] Mami Bernstein MD , [facility], [address] [place] [address] 08/02/2017 13:49:47 08/02/2017 14:54:19 Allergic asthma without status asthmaticus [id number] J45.909 feels diminished and wheezingbr eath sounds goodafter neb a bit improvedpe ak flows lower range, not much changesubj ectively feels easier to deep breath after nebulizerb ut albuterol makes her jittery and she avoids it when possiblesh ort term trial inhaled steroidcon tinue proair as neededf/u if not improving Acute uppe r respiratory infection [id number] J06.9 Kriss is presenting today with recurrent URI sxthis does sound like a new viral URI and not pna or recurrent sinus infections upportive instr giventx coughaugme nt asthma mgmt [id number] Natalie Reveles MD , [facility], [address] [place] [address] 09/13/2017 14:23:47 09/13/2017 15:31:30 Benign essential hypertension 2982921 I10 Blood pressure at goal Mixed hyperlipidemia 267 966038 E78.2 continue to work on diet and exercise as discussed Sciatica 25223928 M54.30 Type 2 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 680427906 E11.9 Mononeuritis 33108713 G5 8.9 Rheumatoid arthritis 698 44468 M06.9 Diabetic on insulin 1707 39276 Z79.4 Anemia 179738201 D64.9 Asthma 294774974 J45.90 9 Active or passive immunization 660013441 Z23 [id number] Natalie Reveles MD , [facility], [address] [place] [address] 11/13/2017 14:08:31 11/13/2017 14:54:27 Transient cerebral ischemia 362703430 G45.9 Diabetic on insulin 1707 24814 Z79.4 [id number] Natalie Reveles MD , [facility], [address] [place] [address] 12/27/2017 14:34:57 12/27/2017 16:04:03 Adult health examination 224183888 Z00.00 see Risk Assessment and Lifestyle Change Counseling section above Counseling 515701637 Z71 .9 Depression screening 171 231533 Z13.89 depression screening tool administer ed, entered into emr, scored and discussed, time greater than 7.5 minutes Focal onse t impaired awareness epileptic seizure 722909030 G40.209 Benign ess ential hypertension 2107946 I10 Blood pressure at goal Sciatica 06657012 M54.30 Mixed hyperlipidemia 267 174440 E78.2 continue to work on diet and exercise as discussed Type 2 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 970943113 E11.9 Allergic a sthma without status asthmaticus 71657075 J45.909 Diabetic on insulin 1707 18737 Z79.4 Rheumatoid arthritis 698 53590 M06.9 Neuropathy due to diabetes mellitus 867777708 E11.42 Screening mammography 24 915842 Z12.31 Active or passive immunization 915528545 Z23 [id number] Natalie Reveles MD , [facility], [address] [place] [address] 04/30/2018 10:39:49 04/30/2018 11:23:30 Counseling 986500037 Z71.9 Benign ess ential hypertension 6453641 I10 Blood pressure at goal Mixed hyperlipidemia 267 275274 E78.2 continue to work on diet and exercise as discussed Focal onse t impaired awareness epileptic seizure 085809324 G40.209 Sciatica 64761804 M54.30 Type 2 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 182511274 E11.9 Mononeuritis 66756960 G5 8.9 Diabetic on insulin 1707 48443 Z79.4 Rheumatoid arthritis 698 21960 M06.9 Allergic a sthma without status asthmaticus 22997411 J45.909 Intolerant of ambient temperature 271870499 R68.89 [id number] Natalie Reveles MD , [facility], [address] [place] [address] 07/04/2018 09:15:51 07/04/2018 09:27:41 Active or passive immunization 417226864 Z23 [id number] Natalie Reveles MD , [facility], [address] [place] [address] 08/29/2018 11:16:37 08/30/2018 10:37:41 Acute sinusitis 09372257 J01.90 Benign ess ential hypertension 3773176 I10 Blood pressure at goal Type 2 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 358111834 E11.9 Mononeuritis 65323653 G5 8.9 Rheumatoid arthritis 698 33473 M06.9 [id number] MD RAJEEV Norwood, [facility], [address] [place] [address] 12/31/2018 14:40:49 12/31/2018 16:07:09 Adult health examination 510800359 Z00.00 see Risk Assessment and Lifestyle Change Counseling section above Counseling 953886672 Z71 .9 Depression screening 171 595541 Z13.89 depression screening tool administer ed, entered into emr, scored and discussed, time greater than 7.5 minutes Mixed hyperlipidemia 267 480482 E78.2 Focal onse t impaired awareness epileptic seizure 715428277 G40.209 Benign ess ential hypertension 4913140 I10 Blood pressure at goal Sciatica 42767746 M54.30 Type 2 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 647251362 E11.9 Allergic a sthma without status asthmaticus 63231910 J45.909 Diabetic on insulin 1707 51271 Z79.4 Rheumatoid arthritis 698 84862 M06.9 Gastroesop hageal reflux disease 546621362 K21.9 Active or passive immunization 189161570 Z23 Neuropathy due to diabetes mellitus 018918112 E11.42 [id number] MD RAJEEV Norwood, [facility], [address] [place] [address] 02/20/2019 09:32:43 02/20/2019 10:11:54 Acute sinusitis 02764489 J01.90 Health Concerns Section Related Observation LastModified by Organization Detai ls LastModified Time None Recorded Concern Status LastModified by Organization Details LastModified Time None Recorded Advance Directives Directive N: Payers Encounter Date Sequence Insurance Name Policy Number Policy Samuel Covered Member ID Samuel Member ID Guarantor Name 04/30/2018 1 [place] [employer] Kriss Jackson [id number] Kriss Jackson 04/30/2018 2 [place] [id number] Kriss Jackson [id number] Kriss Jackson 07/04/2018 1 [place] [facility] Kriss Jackson [id number] Kriss Keys Young 07/04/2018 2 [place] [id number] Kriss Jackson [id number] Kriss Keys Young 08/29/2018 1 [place] [facility] Kriss Jackson [id number] Kriss Keys Young 08/29/2018 2 [place] [id number] Krissjuan Jackson [id number] Kriss A Young 12/31/2018 1 [place] [facility] Kriss Jackson [id number] Kriss Massimo Young 12/31/2018 2 [place] [id number] Kriss Jackson [id number] Kriss Keys Young 02/20/2019 1 [place] [facility] Kriss Jackson [id number] Kriss A Young 02/20/2019 2 [place] [id number] Kriss Jackson [id number] Kriss Jackson Notes Date Note Type [...] intolerance has developed recently Natalie Reveles MD [address] [place] [address], [phone], [facility] [place] 15:01:12 9 text/html 67 yo with htn, RA, type 2 diabetes with neuropathy, spinal stenosis , asthma (flovent), seizure disorder (complex partial) here for f/u.Taking/winter medications.No headaches, dyspnea, dizziness. chest pain.RA is very limiting with a lot of pain/fatigue. Has see OT and can wear brace for right wrist when at rest,Has been seeing Dr. Chanec for diabetes. No hypo/hyperglycemic sx.Using lidocaine patches prn for feetCame back from [place] yesterday and had allergy sx. Using flonase, asthma inhaler, loratidine.Recent A1 C was <6% per Dr. Robson Reveles MD [address] [place] [address], [phone], [facility] [place] 08/[place] 13:31:11 9 text/html Physical Exam/FemaleReported bypatient.PHAPatient [...] room and availability of urgent care at [facility] DiabetesReported bypatient.Duration:chronic Control:usually well controlled; improved [...] of 145/80 since reducing lisinopril in august.Sees hold worker (Dr. Chance) Natalie Reveles MD [address] [place] [address], [phone], [facility] [place] 01/05/2019 14:13:02 9 text/html Physical Exam/FemaleReported bypatient.PHAPatient [...] room and availability of urgent care at [facility] DiabetesReported bypatient.Duration:chronic Control:usually well controlled; improved [...] green sputum. No dyspnea Natalie Reveles MD [address] [place] [address], [phone], [facility] [place] 02/20/2019 10:14:25 OBGyn Episode No OBEpisode recorded.
--- OUTSIDE RECORDS SUMMARY | 2024-11-03 13:56 | XMS_ITS | Patient Health Record ---
[facility] Organization [facility] Address [address] [facility] [address] Care Team Providers Care Splunk Developer Name Role Phone Angel Pablo Primary Care Provider Antonio Giles Unavailable [phone] Allergies Allergen (clinical drug ingredient) Drug/Non Drug [...] Range Notes HEMOGLOBIN A1C (GLYCOHEMOGLO BIN) Reviewed date:09/16/2024 11:17:57 AM Interpretation: Performing Lab: Notes/Report: HEMOGLOBIN A1C % (HH) 5.4 HEMOGLOBIN A1C (GLYCOHEMOGLO BIN) Reviewed date:12/11/2023 09:43:09 [...] Problem Acquired hammer toe of right foot (7006966698097426 ) Other hammer toe(s) (acquired), right foot (M20.41) Active confirmed Response to treatment, Improvemen t Problem Acquired hammer toe of left foot (5682625331476952 ) Other hammer toe(s) (acquired), left foot (M20.42) Active confirmed Response to treatment, Improvemen t Problem Polyneuropathy due to type 2 diabetes mellitus (163496181) Type 2 diabetes mellitus with diabetic polyneuropathy (E11.42) Active confirmed Vital Signs Blood pressure diastolic 50 mm Hg 09/16/2024 Height 8db02es in 09/16/2024 Blood pressure systolic 109 mm Hg 09/16/2024 Weight 146 lbs 09/16/2024 BMI 30.51 kg/m2 09/16/2024 Procedures Procedure Date Ordered Date Performed Result Body Sit e 11644-WIBAJCP NAIL, 6 OR MORE 12/11/2023 N/A 36003-Ojyfcldw Plate 12/11/2023 N/A 13235-SHMS SKIN LESIONS, OVER 4 12/11/2023 N/A 69461-ZKRRFUW NAIL, 6 OR MORE 03/11/2024 N/A 78733 I&D ABSCESS- SIMPLE,SINGLE 03/11/2024 N/A 95508-FUOH SKIN LESIONS, OVER 4 03/11/2024 N/A 55862-TGXZABW SKIN/TISSUE 03/25/2024 N/A 10066- Debride <25 sq cm 04/15/2024 N/A 82780-HSWXZJJ NAIL, 6 OR MORE 06/10/2024 N/A 17483-KCBV SKIN LESIONS, OVER 4 06/10/2024 N/A 10548-ZGSTPQY NAIL, 6 OR MORE 09/16/2024 N/A 43844-WQFZ SKIN LESIONS, OVER 4 09/16/2024 N/A Encounters Encounter Location Date Provider Diagnosis [address] [address] 12/11/2023 Antoniorafia Meadier Type 2 diabetes mellitus with diabetic polyneuropathy E11.42 ; Tinea unguium B35.1 ; Other hammer toe(s) (acquired), right foot M20.41 ; Other hammer toe(s) (acquired), left foot M20.42 and Ingrown nail L60.[address] [address] 03/11/2024 Antonio Tisha Type 2 diabetes mellitus with diabetic polyneuropathy E11.42 ; Tinea unguium B35.1 and Abscess of right foot L02.[address] [address] 03/25/2024 Antonio Tisha Abscess of right nichole t L02.611 and Neuropathic ulcer of right foot with fat layer exposed L97.[address] [address] 04/15/2024 Antonio Tisha Neuropathic ulcer of right foot, limited to breakdown of skin L97.[address] [address] 05/16/2024 Antonio Tisha Neuropathic ulcer of right foot, limited to breakdown of skin L97.[address] [address] 06/10/2024 Antoniorafia Meadier Type 2 diabetes mellitus with diabetic polyneuropathy E11.42 ; Tinea unguium B35.1 ; Other hammer toe(s) (acquired), right foot M20.41 and Other hammer toe(s) (acquired), left foot M20.[address] [address] 09/16/2024 Antonio Tisha Type 2 diabetes mellitus with diabetic polyneuropathy E11.42 ; Tinea unguium B35.1 and Xerosis of skin L85.3 [facility] [address] [address] 03/11/2024 Antonio Giles [facility] [address] [address] 09/26/2024 Antonio Giles Assessments Encounter Date Diagnosis [...] X ray : Foot, right 3V 03/03/2022 62360-IWZUZYY NAIL, 6 OR MORE 03/11/2024 07822-MFJYDVS NAIL, 6 OR MORE 09/11/2023 67316-KYOOMXU NAIL, 6 OR MORE 12/11/2023 83087-DWCXSED NAIL, 6 OR MORE 09/08/2022 19636-PIBIZOB NAIL, 6 OR MORE 12/08/2022 18890-EJOLALG NAIL, 6 OR MORE 03/09/2023 13820-RYUZJEM NAIL, 6 OR MORE 06/08/2023 92333-QBGOIXS NAIL, 6 OR MORE 06/02/2022 61445-KAICEWE NAIL, 6 OR MORE 03/03/2022 92123-RXEIENJ NAIL, 6 OR MORE 08/30/2021 12156-LSRWCEA NAIL, 6 OR MORE 12/02/2021 75573-OCHSUPZ NAIL, 6 OR MORE 06/08/2020 38786-VTVXFSB NAIL, 6 OR MORE 09/03/2020 06039-LPRKHAV NAIL, 6 OR MORE 12/10/2020 44059-NLTPYZO NAIL, 6 OR MORE 03/22/2021 78626-SEWAYRY NAIL, 6 OR MORE 06/10/2024 78159-JSXLMWV NAIL, 6 OR MORE 09/16/2024 32755-Etnlsoen Plate 12/11/2023 86557- Debride <25 sq cm 04/15/2024 42316-EKSSBIL SKIN/TISSUE 03/25/2024 45069 I&D ABSCESS- SIMPLE,SINGLE 024 61416-YKRF SKIN LESIONS, OVER 4 06/10/20 24 99566-XSTM SKIN LESIONS, OVER 4 09/17/19 25 87938-SSCW SKIN LESIONS, OVER 4 03/11/20 24 01684-GIIK SKIN LESIONS, OVER 4 12/11/19 24 52631-FROR SKIN LESIONS, OVER 4 09/11/19 24 82861-AHJO SKIN LESIONS, OVER 4 06/08/20 23 08923-IYEK SKIN LESIONS, OVER 4 03/09/20 23 59139-HXHL SKIN LESIONS, OVER 4 12/09/19 23 53822-UEJO SKIN LESIONS, OVER 4 09/09/19 23 42746-JVGS SKIN LESIONS, OVER 4 03/22/20 21 15400-JBWC SKIN LESIONS, OVER 4 12/11/19 21 26028-ZFQA SKIN LESIONS, OVER 4 09/04/19 21 74165-KATB SKIN LESIONS, OVER 4 06/08/20 20 38636-MXHW SKIN LESIONS, OVER 4 12/03/19 22 16288-NINT SKIN LESIONS, OVER 4 08/31/19 22 80385-YTLN SKIN LESIONS, OVER 4 03/03/20 22 30023-HEKS SKIN LESIONS, OVER 4 06/02/20 Next Appt Details Provider Name:Antonio Giles , 12/23/2024 10:30:00 AM, [address] [place], [address], Insurance Providers Payer Name Payer Address Payer Phone Subscriber Number Group Number Insured Name Patient Relationship to Insured Coverage Start Date Coverage End Date Medicare National [employer]t [employer] [address] [facility] [place] [address] [id number] Kriss Jackson Self - patient is the insured [facility] [address] [place] [address] [phone] [id number] Kriss Jackson Self - patient is the [...]
--- OUTSIDE RECORDS SUMMARY | 2024-11-03 13:56 | XMS_ITS ---
Author Organization [facility] Address [address] [place] [address] Care Team Providers Care Mobility Engineer Name Role Phone Angel Pablo Primary Care Provider Antonio Giles Unavailable [phone] Allergies Allergen (clinical drug ingredient) Drug/Non Drug [...] Points 0 Interpretation Negative Vital Signs Height 1iq95hy in 09/16/2024 Weight 146 lbs 09/16/2024 BMI 30.51 kg/m2 09/16/2024 Blood pressure systolic 109 mm Hg 09/17/19 Blood pressure diastolic 50 mm Hg 025 Procedures Procedure Date Ordered Date Performed Result Body Sit e 95447-YSDHMFS NAIL, 6 OR MORE 09/16/2024 N/A 33727-JWAY SKIN LESIONS, OVER 4 09/16/2024 N/A Encounters Encounter Location Date Provider Diagnosis [facility] [address] [address] 09/16/2024 Antonio Giles Type 2 diabetes mellitus [...] days Pending Test Test Name Order Date 99495-IAMGUXM NAIL, 6 OR MORE 09/16/2024 08899-RLGL SKIN LESIONS, OVER 4 09/17/19 Next Appt Details Follow Up: prn, Reason: Provider Name:Antonio Giles , 12/23/2024 10:30:00 AM, [address] [place] [address], [address], Procedure Notes * Category Sub-Category Detail Notes [...] use of a nail nipper and/or dremel-type valve grinder, to a more viable healthy nail [...] to maintain effectiveness in symptomatic relief - 29546 Keratoma Treatment Parring or Cutting o f [...] instrumentation by the physician of record - 58708 Progress Notes * Jose JACKSONOB:1950 ([age] yo F)Acc No.[id number]:09/16/2024 Progress Note Patient:Kriss HARRISON Provider:?Antonio Giles DPM :1950???Age:73 Y???Sex:Female D ate:09/16/2024 Address:[address] [place] [address], [place], [place] Pcp:Angel Pablo Subjective: * Chief Complaints: * [...] yes, housework,shooping. ?Marital status: . 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 ???Drug/Alcohol:?AUDIT-C (Standard)?Did you have a drink containing [...] hivesCod eine: stomach upsetDoxycyclineDuloxetineCymbaltayes[Allergies Verified] Objective: * Vitals:?Ht:3cy85qy, Wt:146, BMI:30.51, Shoe size:7, BP:109/50mm Hg, BS:77, [...] use of a nail nipper and/or dremel-type valve grinder, to a more viable healthy nail [...] to maintain effectiveness in symptomatic relief - 42638.?Keratoma Treatment:?Parring or Cutting of Benign Hyperkeratotic Lesion(s)?(-57) [...] instrumentation by the physician of record - 89407.? * Procedure Codes:?51684 DEBRI DE NAIL, 6 OR MORE, Modifiers: XS 53822 TRIM SKIN LESIONS, OVER 4, Modifiers: XS [...] Provider:?Antonio Giles DPM Date:?2024 Generated for Shanique alatorre/Lloyd/eTcharleyitting on:?11/03/2024 01:56 PM EDT History and Physical Notes * HPI (History of Present Illness) Category Sub-Category Detail Notes Category Not es Skin problems Nature: dryness , scaling Location: B/L Duration: several days Course: worse Treatments: At Risk footcare Pt States Last PCP Visit: Date: [facility] [place] States to have vein surgery to Left [...]
--- OUTSIDE RECORDS SUMMARY | 2024-11-03 13:56 | XMS_ITS ---
Author Organization [facility] Address [address] [place] [address] Care Team Providers Care Swimmer Name Role Phone Angel Pablo Primary Care Provider [phone] Antonio Giles Unavailable [phone] Allergies Allergen (clinical drug ingredient) Drug/Non Drug [...] other tobacco user? No Vital Signs Height 5vi74hb in 06/10/2024 Weight 146 lbs 06/10/2024 BMI 30.51 kg/m2 06/10/2024 Blood pressure systolic 109 mm Hg 06/10/20 24 Blood pressure diastolic 54 mm Hg 024 Procedures Procedure Date Ordered Date Performed Result Body Sit e 72507-MGSUXGP NAIL, 6 OR MORE 06/10/2024 N/A 76213-ROIV SKIN LESIONS, OVER 4 06/10/2024 N/A Encounters Encounter Location Date Provider Diagnosis [facility] [place] [address] [place] [address] 06/10/2024 Antonio Giles Type 2 diabetes mellitus [...] Treatment Pending Test Test Name Order Date 98436-XSTVHDI NAIL, 6 OR MORE 06/10/2024 50391-PXZP SKIN LESIONS, OVER 4 06/10/20 24 Next Appt Details Follow Up: prn, Reason: Provider Name:Antonio Giles , 12/23/2024 10:30:00 AM, [address] [place], [address], Procedure Notes * Category Sub-Category Detail Notes [...] use of a nail nipper and/or dremel-type grinder operator external tool, to a more viable healthy nail plate [...] to maintain effectiveness in symptomatic relief - 04943 Keratoma Treatment Parring or Cutting o f [...] instrumentation by the physician of record - 52219 Progress Notes * Lilly JACKSONDonaldOB:1950 ([age] yo F)Acc No.[id number]:06/10/2024 Progress Note Patient:?Kriss JACKSON Provider:?Antonio Giles DPM :1950???Age:73 Y???Sex:Female D ate:06/10/2024 Address:[address] [place], [place] [address] Pcp:Angel Pablo Subjective: * Chief Complaints: * [...] yes, housework,shooping. ?Marital status: . 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 * Medications:?TakingAcetamino phen ER , Notes to [...] hivesCod eine: stomach upsetDoxycyclineDuloxetineCymbaltayes[Allergies Verified] Objective: * Vitals:?Ht:4bk46uq, Wt:146, BMI:30.51, Shoe size:7, BP:109/54mm Hg, BS:not [...] use of a nail nipper and/or dremel-type grinder operator external tool, to a more viable healthy nail plate [...] to maintain effectiveness in symptomatic relief - 83701.?Keratoma Treatment:?Parring or Cutting of Benign Hyperkeratotic Lesion(s)?(-57) [...] instrumentation by the physician of record - 03120.? * Procedure Codes:?78785 DEBRI DE NAIL, 6 OR MORE, Modifiers: XS 65878 TRIM SKIN LESIONS, OVER 4, Modifiers: XS [...] Giles DPM Date:?2023 Generated for Shanique alatorre/Lloyd/Jemalitting on:?11/03/2024 01:56 PM EDT History and Physical [...]
== END 2024-11-03 14:17 | disposition home or self-care (01) ==
LOC: HO.RHE 13:36
PROVIDERS: PCP Internal Medicine; Visit Provider Student in an Organized Health Care Education/Training Program
DX: M06.09 Rheumatoid arthritis without rheumatoid factor, multiple sites (principal); M19.041 Primary osteoarthritis, right hand; M19.042 Primary osteoarthritis, left hand; M81.0 Age-related osteoporosis without current pathological fracture; Z79.631 Long term (current) use of antimetabolite agent; Z79.899 Other long term (current) drug therapy
CPT/HCPCS: 99214; G2211

== ENCOUNTER → 2024-11-03 23:59 | Outpatient (BNV) | payer MEDICARE, SELFPAY ==
--- NOTE | 2024-11-03 16:35 | A.OFFVIS_ITS ---
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 Edema of lower extremity present on examination [facility] use of drug Irritable bowel syndrome with diarrhea Rheumatoid arthritis Pacemaker TIA (transient ischemic attack) Dysphagia Spinal stenosis COVID COVID-19 Laryngopharyngeal reflux (LPR) Asthma Rotator cuff tendinitis Post-menopausal Polyarthralgia Dyspnea on exertion Allergic rhinitis Bronchitis Asthma exacerbation Cough variant asthma DJD (degenerative joint disease) Decreased hearing GERD (gastroesophageal reflux disease) Type 2 diabetes 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s Surgical History S/P placement of cardiac pacemaker History of esophagogastroduodenoscopy (EGD) History of colonoscopy (~09/05/21) Hx of cholecystectomy Hx of tonsillectomy Hx of hysterectomy Family History Father CVD (cardiovascular disease) Diabetes Mother Diabetes Sister No problems noted. Other Substance use disorder Social History Household Members: Family and None Housing: House Are you a primary workforce investment act career manager to a significant other at home: No Do you presently have visiting nurse or other home services: No Alcohol intake: former Comment: WITHIN LAST MONTH Patient Tobacco Use Status: Never used Tobacco e-Cigarette/Vaping Use: Never Used Second Hand Smoke Exposure: No Advance Directives Date on File: 08/04/22 service: No Current occupational status: retired Cognitive needs: Yes (walker) Hearing needs: Yes (hearing aide) Vision needs: Yes (glasses) Office Procedures Cardiac Device Check Cardiac Device Check Details: Remote pacemaker report generated 11/03/2024. Pacemaker function is adequate. Patient ventricularly pacer dependent 16380-Tgsdkx Cardiac Device Interrogation, pacemaker Procedure code (CPT) selection complete Assessment & Plan Assessment & Plan (1) Pacemaker: Code(s): Z95.0 - Presence of cardiac pacemaker Category: Medical Plan: See above Coding Level of Care Code Procedure Only Diagnoses Pacemaker Z95.0 CPT Codes Cardiac Device Check - Cardiac Device 12: 12280-Ywftgl Cardiac Device Interrogation, pacemaker ([id number])
== END ==
PROVIDERS: PCP Internal Medicine; Visit Provider Internal Medicine Cardiovascular Disease
DX: Z45.018 Encounter for adjustment and management of other part of cardiac pacemaker (principal)
CPT/HCPCS: 93294

== ENCOUNTER 2024-11-14 10:00 | Outpatient (AMB) | payer MEDICARE, SELFPAY ==
--- NOTE | 2024-11-14 10:11 | A.OFFVIS_ITS ---
Vital Signs 11/14/24 10:18 Height 4 ft 10 in Weight 144 lb 6.444 oz BMI 30.2 BP 97/44 L Blood Pressure Location Lt brachial Position Sitting Pulse 59 Intake Visit Reasons: 7 months follow up Intake Note: Patient 7 month follow up for GERD. Patient cc: reports improvement with Famotidine 40mg twice a day. Patient c/o: not eating as much. Loss of appetite first noticed after using the swish and swallow medication. Escalator Mechanic Required: No Accompanied by: Self / Same As Patient Allergies duloxetine Allergy (Severe, Verified 11/03/24 13:42) LOOPY codeine [CODEINE] Allergy (Intermediate, Verified 11/03/24 13:42) GI UPSET doxycycline [DOXYCYCLINE] Allergy (Intermediate, Verified 11/03/24 13:42) RASH Sulfa (Sulfonamide Antibiotics) [SULFA (SULFONAMIDE ANTIBIOTICS)] Allergy (Intermediate, Verified 11/03/24 13:42) Hives HPI HPI 7 months follow up: Details: Assessment & Plan (1) Post-cholecystectomy syndrome: Code(s): K91.5 - Postcholecystectomy syndrome Category: Medical (2) GERD (gastroesophageal reflux disease): Code(s): K21.9 - Gastro-esophageal reflux disease without esophagitis Category: Medical Qualifiers: Esophagitis presence: without esophagitis Qualified Code(s): K21.9 - Gastro-esophageal reflux disease without esophagitis Plan She is going on the 3rd bottle of nystatin swish and swallow. She tried to restart the aciphex, but her mouth started hurting more again. She stopped it and is continuing on her famotidine 40mg bid. She still has trouble eating certain foods, roque her son's homemade spaghetti sauce. She still struggles with hoarse voice. She sees Dr. Tabares, and I advise her to call his office again since she has not seen him since the mouth pain episode started. She has a new problem of a pressure ulcer on her right foot. She is supposed to be staying off of her feet. Her RA is more active on her left side. She tries to focus on knitting her afgans when this is going on. Since she has not tolerated PPI's I will increase her famotidine to 40mg tid. ROV 6 mos Medications: Changed From famotidine 40 mg PO BID 180 tabs 0RF K21.9 - Gastro-esophageal reflux disease without esophagitis, K22.10 - Ulcer of esophagus without bleeding To famotidine 40 mg PO TID 270 tabs 1RF K21.9 - Gastro-esophageal reflux disease without esophagitis, K22.10 - Ulcer of esophagus without bleedin TODAYS VISIT She continues to struggle with thrush, Her ENT Dr. Herrera is retiring soon and she had trouble getting the difucan and the dental paste taht he used to rx - she then got the diflucan from her PCP Dr. Derrick Au offer to help her with this as well. She also had to have her foot ulcer attended to, but it healed well and n ow she has special shoes, this has postponed PT that she was to have for general deconditioning. She continues on her famotidine. ROV 6 mos. 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 Edema of lower extremity present on examination [facility] use of drug Irritable bowel syndrome with diarrhea Rheumatoid arthritis Pacemaker TIA (transient ischemic attack) Dysphagia Spinal stenosis COVID COVID-19 Laryngopharyngeal reflux (LPR) Asthma Rotator cuff tendinitis Post-menopausal Polyarthralgia Dyspnea on exertion Allergic rhinitis Bronchitis Asthma exacerbation Cough variant asthma DJD (degenerative joint disease) Decreased hearing GERD (gastroesophageal reflux disease) Type 2 diabetes 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s Surgical History S/P placement of cardiac pacemaker History of esophagogastroduodenoscopy (EGD) History of colonoscopy (~09/05/21) Hx of cholecystectomy Hx of tonsillectomy Hx of hysterectomy Family History Father CVD (cardiovascular disease) Diabetes Mother Diabetes Sister No problems noted. Other Substance use disorder Social History Household Members: Family and None Housing: House Are you a primary home care liaison to a significant other at home: No Do you presently have visiting nurse or other home services: No Alcohol intake: former Comment: WITHIN LAST MONTH Patient Tobacco Use Status: Never used Tobacco e-Cigarette/Vaping Use: Never Used Second Hand Smoke Exposure: No Advance Directives Date on File: 08/04/22 service: No Current occupational status: retired Cognitive needs: Yes (walker) Hearing needs: Yes (hearing aide) Vision needs: Yes (glasses) Review of Systems Const Denies fatigue, Denies fever(s), Denies night sweats, Denies poor appetite and Denies weight loss Eyes Details: glasses Reports requires corrective lenses ENT Reports Normal hearing present, Denies dysphagia, Denies odynophagia, Denies throat swelling and Denies tongue swelling Card Reports no additional complaints and Reports dyspnea on exertion Resp Reports dyspnea on exertion GI Details: Denies abdominal pain, Denies melena, Denies bloating, Denies hematochezia, Denies constipation, Denies GI cramping, Denies dysphagia, Denies excessive flatus, Denies early satiety, Reports heartburn, Denies diarrhea, Denies nausea, Denies odynophagia, Denies vomiting and Denies hematemesis Reports urinary urgency Musc Reports abnormal gait, Reports back pain, Reports arthralgias and Reports stiffness Skin/Breast Denies pruritus, Denies lesions, Denies rash and Denies jaundice Neuro Reports Normal hearing present, Denies Abnormal speech present and Reports abnormal gait Endo Denies fatigue Aller/Immun Denies throat swelling and Denies tongue swelling Physical Exam Vital Signs: Last Vital Signs Pulse 59 11/14/24 10:18 BP 97/44 L 11/14/24 10:18 BMI result Body Mass Index 30.2 Const General: cooperative, no acute distress, well developed and well groomed Nutritional Appearance: well nourished and obese Orientation/consciousness: oriented to person, oriented to place and oriented to time Limitations: No language barrier and ambulation with walker HEENT Head: Yes normocephalic and Yes atraumatic Eyes General: appearance normal, both eyes and all related structures Pupils: Equal, round and reactive pupils present Neck Neck: Yes normal visual inspection and Yes no lymphadenopathy Thyroid: Thyroid normal Resp Effort & Inspection: normal respiratory effort and able to speak in complete sentences Auscultation: clear to auscultation bilaterally Cardio Rate: regular rate Rhythm: regular rhythm Heart sounds: Normal, physiologic split S2 sound present Peripheral pulses: radial pulses present and posterior tibial pulses present GI Inspection: No distended, Yes Abdominal panniculus present and Yes obesity Palpation (GI): Soft to palpation, nontender, no guarding, not rigid and No hepatosplenomegaly present Percussion: Yes normal to percussion Auscultation: normal bowel sounds Rectal Exam - Female: deferred Skin General skin exam: no rashes or lesions noted, turgor normal, skin not dry, no jaundice, No spider nevi and no striae Rashes: no rashes Nails: normal Neuro General: oriented to person, oriented to place and oriented to time Cranial nerves: Yes Equal, round and reactive pupils present and Yes Normal hearing present Speech: No Abnormal speech present Extrem General: Yes normal to inspection, No clubbing, No cyanosis and No edema Psych Appearance: grossly normal and well kempt Mental Status: mental status grossly normal Speech and movement: Normal speech and movement present Affect: normal affect Attitude: cooperative Thought process: Normal thought process present and not confabulating Thought content: Normal thought content present Insight: Fair insight present (Psych) Judgement: Fair judgement present (Psych) Assessment & Plan Assessment & Plan (1) Post-cholecystectomy syndrome: Code(s): K91.5 - Postcholecystectomy syndrome Category: Medical (2) GERD (gastroesophageal reflux disease): Code(s): K21.9 - Gastro-esophageal reflux disease without esophagitis Category: Medical Qualifiers: Esophagitis presence: without esophagitis Qualified Code(s): K21.9 - Gastro-esophageal reflux disease without esophagitis Plan She continues to struggle with thrush, Her ENT Dr. Herrera is retiring soon and she had trouble getting the difucan and the dental paste taht he used to rx - she then got the diflucan from her PCP Dr. Derrick Au offer to help her with this as well. She also had to have her foot ulcer attended to, but it healed well and now she has special shoes, this has postponed PT that she was to have for general deconditioning. She continues on her famotidine. ROV 6 mos. Coding Level of Care Code Est Pt Level 3 (22135) Diagnoses Post-cholecystectomy syndrome K91.5 Gastroesophageal reflux disease without esophagitis K21.9 Esophagitis presence: without esophagitis
--- OUTSIDE RECORDS SUMMARY | 2024-11-14 10:15 | XMS_ITS ---
Author Organization [facility] Address [address] [place] [id number] Care Team Providers Care Administrative Services Assistant Name Role Phone Angel Pablo Primary Care Provider [phone] Antonio Giles Unavailable [phone] REASON FOR VISIT Foot swelling Encounters Encounter Location Date Provider Diagnosis [address] [address] 09/26/2024 Antonio Giles Plan Of Treatment Next Appt Details Provider Name:Antonio Giles , 12/23/2024 10:30:00 AM, [address] [place], [address], Progress Notes * Jose JACKSONOB:1950 ([age] yo F)Acc No.[id number]:09/26/2024 Patient:?Kriss JACKSON :1950???Age:73 Y???Sex:Female Address:[address] [place] [address] [place], [address] * true * Date:? Generated for Printi ng/Famariang/eTransmitting on:?11/14/2024 10:15 AM EDT
[2024-11-14 10:18] VITALS: BP 97/44; PULSE 59; BMI 30.2
== END 2024-11-14 11:01 | disposition home or self-care (01) ==
LOC: HO.HGI 10:00
PROVIDERS: PCP Internal Medicine; Visit Provider Nurse Practitioner
DX: K91.5 Postcholecystectomy syndrome (principal); K21.9 Gastro-esophageal reflux disease without esophagitis
CPT/HCPCS: 99213

== ENCOUNTER → 2024-11-14 10:00 | Outpatient (BNVA) | payer MEDICARE, SELFPAY | PROVIDERS: PCP Internal Medicine; Visit Provider Nurse Practitioner | DX: K21.9 Gastro-esophageal reflux disease without esophagitis (principal); K91.5 Postcholecystectomy syndrome | CPT/HCPCS: 99212 ==

== ENCOUNTER 2024-12-05 08:47 | Outpatient (REF) | payer MEDICARE, SELFPAY ==
--- OUTSIDE RECORDS SUMMARY | 2024-12-05 09:02 | XMS_ITS | Data Portability ---
Author Organization [facility], [facility] Address [address] [place] [address] Assessment Encounter Date Assessment Date Assessment LastModified by Organization Details LastModified Time 04/30/2018 04/30/2018 Blood pressure i s at goal with which is below 140/90 for a diabetic. She is looking for alternative activities in her halfway. Her A1c of 5.5% shows excellent diabetes control (goal below 7.5-8%). She will continue with [facility] [employer] [facility] diabetes [facility] for that. [...] to what she tells us from her supervisor [employer], and she will try and get us those records. 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 She will follow-up in [...] bp more regularly 3) Patient regularly sees supervisor [employer] who will check A1C and adjust rx [...] with new provider (will be changing to [facility] for convenience) 9) RA stable; may be helped by walker use nikik Not available 01/05/2019 14:12:09 02/20/2019 02/20/2019 We [...] Lab TSH, serum or plasma 2017 018 [facility], [address] [place] [address], [address], 8 16:26:11 CBC 2017 018 [facility], [address] [place], [address], 8 14:43:05 Referral None recorded. Procedures None recorded. Surgeries None recorded. Imaging None recorded. Medication Orders cefpodoxim e 200 mg tablet 2018 019 nikki [facility] #[id number], [address], [place], [id number], 9 12:53:28 atorvastat in 20 mg tablet 2018 019 [facility] #[id number], [address], [place], [id number], 9 16:34:01 lidocaine 5 % topical patch 2018 019 [facility] #[id number], [address], [place], [id number], 9 13:32:45 omeprazole 20 mg capsule,de layed release 2018 019 [facility] #[id number], [address], [place], [id number], 9 16:34:01 lisinopril 10 mg-hydroch lorothiazi de 12.5 mg tablet 2018 019 [facility] #[id number], [address], [place], [id number], 9 16:34:01 cefpodoxim e 200 mg tablet [address] [facility] #[id number], [address], [place], [id number], 9 14:47:44 Patient TargetsNo targets recorded. Patient Instructions Encounter Date Encounter Id Patient Instructions Last Modified By Organization Details Last Modified Time 04/30/2018 [id number] high cholesterol lifestyle changes nikki Not available 04/30/2018 11:19:19 high blood pressure: care instructions nikki Not available 04/30/2018 11:19:19 learning about high blood pressure nikki Not available 04/30/2018 11:19:19 asthma handout / teaching nikki Not available 04/30/2018 11:19:19 asthma action plan nikki Not availab le 04/30/2018 11:19:[address] an ages 0-11 yrs lithuan[place] nikki Not available 04/30/2018 11:19:19 CCM: The provide r and patient discussed the Chronic Care Management program, including the services provided, and any fees associated with them. michele Not available 04/30/2018 11:32:47 08/29/2018 [id number] My Health To Do List Specific Analgesia Plan: Continue present regimen Specific Goals for next visit increase exerciseThe patient is currently at their goal of safe, stable use of narcotic pain medication to improve their functioning in life. Since the last visit there has been no activity of concern: Patient today is at low risk for abuse of meds. Monitoring will include repeat UDS. Patients current goals of more activity were discussed with patient, unlikelihood of 100% reduction in pain made clear. Patient has read narcotics contract and understands the properties of narcotic medication. spise Not available 08/29/2018 11:18:25 12/31/2018 [id number] After a discussi on of treatment options, [...] Patie nts with Diabe sarath Not Available [address], [address], 04/26/2018 15:36:01 04/26/20 18 04/26/2018 HbA1c (hemo globi n A1c), blood estimated average glucose 111.2 mg/dL Not Available [address], [address], 04/26/2018 15:36:01 04/26/20 18 04/26/2018 micro album in, urine microalbumin 39.3 mg/L 1.3-20 .0 high Not Available [address], [address], 04/26/2018 15:37:51 04/26/20 18 04/26/2018 micro album in, urine creatinine urine 193.6 mg/dL 30.0-1 25.0 high Not Available [address], [address], 04/26/2018 15:37:51 04/26/20 18 04/26/2018 micro album in, urine microalb/cre at ratio 20.3 mg/g_ creat 0.0-29 .0 Not Available [address], [address], 04/26/2018 15:37:51 04/26/20 18 04/26/2018 BMP, serum or plasm a glucose 74 mg/dL 70-100 Not Available [address], [address], 04/26/2018 16:07:42 04/26/20 18 04/26/2018 BMP, serum or plasm a BUN 16 mg/dL 7-18 Not Available [address], [address], 04/26/2018 16:07:42 04/26/20 18 04/26/2018 BMP, serum or plasm a creatinine 1.1 mg/dL 0.8-1. 3 Not Available [address], [address], 04/26/2018 16:07:42 04/26/20 18 04/26/2018 BMP, serum or plasm a B/C 14.5 ratio Not Available [address], [address], 04/26/2018 16:07:42 04/26/20 18 04/26/2018 BMP, serum or plasm a GFR -non 55.5 mL/mi n Recom zhane d GFR by the Natio nal Kidne y Found ation >60 mL/mi n/1.7 3m2 - Patricia l <60 mL/mi n/1.7 3m2 - Chron ic Kidne y Disea se <15 mL/mi n/1.7 3m2 - Kidne y Failu re Not Available [address], [address], 04/26/2018 16:07:42 04/26/20 18 04/26/2018 BMP, serum or plasm a GFR - if 63.8 mL/mi n For Afric an Ameri can patie nts: Resul ts Multi plied by 1.21 Not Available [address], [address], 04/26/2018 16:07:42 04/26/20 18 04/26/2018 BMP, serum or plasm a sodium 143 mmol/ L 136-14 5 Not Available [address], [address], 04/26/2018 16:07:42 04/26/20 18 04/26/2018 BMP, serum or plasm a potassium 4.6 mmol/ L 3.5-5. 1 Not Available [address], [address], 04/26/2018 16:07:42 04/26/20 18 04/26/2018 BMP, serum or plasm a chloride 105 mmol/ L 96-107 Not Available [address], [address], 04/26/2018 16:07:42 04/26/20 18 04/26/2018 BMP, serum or plasm a anion gap 11.1 5.0-15 .0 Not Available [address], [address], 04/26/2018 16:07:42 04/26/20 18 04/26/2018 BMP, serum or plasm a CO2 27 mmol/ L 21-32 Not Available [address], [address], 04/26/2018 16:07:42 04/26/20 18 04/26/2018 BMP, serum or plasm a calcium 9.2 mg/dL 8.5-10 .3 Not Available [address], [address], 04/26/2018 16:07:42 04/26/20 18 04/26/2018 lipid panel , serum cholesterol 106 mg/dL <200 mg/dl Avelino able 200-2 39 mg/dl Borde rline High >240 mg/dl High Not Available [address], [address], 04/26/2018 16:07:44 04/26/20 18 04/26/2018 lipid panel , serum triglyceride s 184 mg/dL <150 mg/dL Patricia l 150-1 99 mg/dL Borde rline High 200-4 99 mg/dL High >500 mg/dL Very High Not Available [address], [address], 04/26/2018 16:07:44 04/26/20 18 04/26/2018 lipid panel , serum direct HDL 39 mg/dL <40 mg/dl - Major Risk for CHD >60 mg/dl - Negat jeannette Risk for CHD Not Available [address], [address], 04/26/2018 16:07:44 04/26/20 18 04/26/2018 LDL, nathanu martínezd , serum (OBS) LDL - calculated 30.2 [...] r is not martha baker. Not Available [address], [address], 04/26/2018 16:07:45 04/26/20 18 04/26/2018 AST/S GOT (aspa rtate amino trans feras e), serum or plasm a AST 18 U/L 15-37 Not Available [address], [address], 04/26/2018 16:25:23 04/26/20 18 04/26/2018 ALT (karen ine amino trans feras e), serum or plasm a ALT 26 U/L 30-65 low Not Available [address], [address], 04/26/2018 16:25:24 04/30/20 18 04/30/2018 CBC WBC 8.9 K/? ? ?L 4.0-10 .0 Not Available [address], [address], 04/30/2018 14:43:04 04/30/20 18 04/30/2018 CBC RBC 4.13 M/? ? ?L 3.93-5 .22 Not Available [address], [address], 04/30/2018 14:43:04 04/30/20 18 04/30/2018 CBC HGB 11.9 g/dL 11.2-1 5.7 Not Available [address], [address], 04/30/2018 14:43:04 04/30/20 18 04/30/2018 CBC HCT 35.9 % 34.1-4 4.9 Not Available [address], [address], 04/30/2018 14:43:04 04/30/20 18 04/30/2018 CBC MCV 86.9 ? ? ?L 79.4-9 4.8 Not Available [address], [address], 04/30/2018 14:43:04 04/30/20 18 04/30/2018 CBC MCH 28.8 pg 25.6-3 2.2 Not Available [address], [address], 04/30/2018 14:43:04 04/30/20 18 04/30/2018 CBC MCHC 33.1 g/dL 32.2-3 5.5 Not Available [address], [address], 04/30/2018 14:43:04 04/30/20 18 04/30/2018 CBC plt 290.0 K/? ? ?L 182.0- 369.0 Not Available [address], [address], 04/30/2018 14:43:04 04/30/20 18 04/30/2018 CBC MPV 11.7 9.4-12 .3 Not Available [address], [address], 04/30/2018 14:43:04 04/30/20 18 04/30/2018 CBC neut% 78.8 % 34.0-7 1.1 high Not Available [address], [address], 04/30/2018 14:43:04 04/30/20 18 04/30/2018 CBC neut# 7.0 1.6-6. 1 high Not Available [address], [address], 04/30/2018 14:43:04 04/30/20 18 04/30/2018 CBC lymph % 14.1 % 19.3-5 1.7 low Not Available [address], [address], 04/30/2018 14:43:04 04/30/20 18 04/30/2018 CBC lymph # 1.3 K/? ? ?L 1.2-3. 7 Not Available [address], [address], 04/30/2018 14:43:04 04/30/20 18 04/30/2018 CBC mono% 5.2 % 4.7-12 .5 Not Available [address], [address], 04/30/2018 14:43:04 04/30/20 18 04/30/2018 CBC mono# 0.5 0.2-0. 6 Not Available [address], [address], 04/30/2018 14:43:04 04/30/20 18 04/30/2018 CBC eo% 1.4 % 0.7-5. 8 Not Available [address], [address], 04/30/2018 14:43:04 04/30/20 18 04/30/2018 CBC eo# 0.1 0.0-0. 4 Not Available [address], [address], 04/30/2018 14:43:04 04/30/20 18 04/30/2018 CBC baso% 0.5 % 0.1-1. 2 Not Available [address], [address], 04/30/2018 14:43:04 04/30/20 18 04/30/2018 CBC baso# 0.0 0.0-0. 1 Not Available [address], [address], 04/30/2018 14:43:04 04/30/20 18 04/30/2018 CBC RDW-CV 14.0 % 11.7-1 4.4 Not Available [address], [address], 04/30/2018 14:43:04 04/30/20 18 04/30/2018 TSH, serum or plasm a TSH 2.29 uIU/m L 0.50-6 .00 [facility] and [facility] can Thy[facility] id Assoc iatio n recom mend goal TSH value s betwe en 0.4-4 .0 mIU/m L. Not Available [facility] [address] [place], [address], 04/30/2018 16:26:11 06/12/20 18 06/12/2018 CBC w/ auto diff WBC 13.71 K/uL 3.40-1 1.20 high Not Available [facility] [address] [place] [address], [address], 06/12/2018 14:19:14 06/12/20 18 06/12/2018 CBC w/ auto diff RBC 4.19 M/uL 3.80-4 .80 Not Available [facility] [address] [place] [address], [address], 06/12/2018 14:19:14 06/12/20 18 06/12/2018 CBC w/ auto diff HGB 12.0 g/dL 12.0-1 5.0 Not Available [facility] ([facility]) [address] [place] [address], [address], 06/12/2018 14:19:14 06/12/20 18 06/12/2018 CBC w/ auto diff HCT 35.1 % 36.0-4 6.0 low Not Available [facility] ([facility]) [address] [place] [address], [address], 06/12/2018 14:19:14 06/12/20 18 06/12/2018 CBC w/ auto diff plt 285 K/uL 130-40 0 Not Available [facility] ([facility]) [address] [place] [address], [address], 06/12/2018 14:19:14 06/12/20 18 06/12/2018 CBC w/ auto diff MCV 83.8 fL 79.0-9 8.0 Not Available [facility] ([facility]) [address] [place] [address], [address], 06/12/2018 14:19:14 06/12/20 18 06/12/2018 CBC w/ auto diff MCH 28.6 pg 27.0-3 4.8 Not Available [facility] ([facility]) [address] [place], [address], 06/12/2018 14:19:14 06/12/20 18 06/12/2018 CBC w/ auto diff MCHC 34.2 g/dL 31.5-3 6.0 Not Available [facility] ([facility]) [address] [place], [address], 06/12/2018 14:19:14 06/12/20 18 06/12/2018 CBC w/ auto diff RDW 13.2 % 10.8-1 4.6 Not Available [facility] ([facility] [address] [place], [address], 06/12/2018 14:19:14 06/12/20 18 06/12/2018 CBC w/ auto diff MPV 11.6 fL 9.4-12 .4 Not Available [facility] [address] [place], [address], 06/12/2018 14:19:14 06/12/20 18 06/12/2018 CBC w/ auto diff NRBC 0.00 /100_ WBCs 0.00 Not Available [facility] ([facility] [address] [place], [address], 06/12/2018 14:19:14 06/12/20 18 06/12/2018 CBC w/ auto diff absolute NRBC 0.00 K/uL 0.00 Not Available [facility] ([facility] [address] [place], [address], 06/12/2018 14:19:14 06/12/20 18 06/12/2018 CBC w/ auto diff diff method Auto Not Available [facility] [address] [place], [address], 06/12/2018 14:19:14 06/12/20 18 06/12/2018 CBC w/ auto diff neuts 84.8 % 45.30- 77.70 high Not Available [facility] [address] [place] [address], [address], 06/12/2018 14:19:14 06/12/20 18 06/12/2018 CBC w/ auto diff lymphs 9.0 % 12.30- 39.70 low Not Available [facility]) [address] [place] [address], [address], 06/12/2018 14:19:14 06/12/20 18 06/12/2018 CBC w/ auto diff monos 4.2 % 4.10-1 2.80 Not Available [facility]) [address] [place] [address], [address], 06/12/2018 14:19:14 06/12/20 18 06/12/2018 CBC w/ auto diff eos 0.9 % 0-7.2 Not Available [facility] ([facility] [address] [place], [address], 06/12/2018 14:19:14 06/12/20 18 06/12/2018 CBC w/ auto diff basos 0.7 % 0-2.80 Not Available [facility] [address] [place] [address], [address], 06/12/2018 14:19:14 06/12/20 18 06/12/2018 CBC w/ auto diff granulocytes , immature (%) 0.4 % 0.0-0. 9 Not Available [facility] [address] [place] [address], [address], 06/12/2018 14:19:14 06/12/20 18 06/12/2018 CBC w/ auto diff absolute neuts 11.63 K/uL 1.40-7 .70 high Not Available [facility]) [address] [place] [address], [address], 06/12/2018 14:19:14 06/12/20 18 06/12/2018 CBC w/ auto diff absolute lymphs 1.24 K/uL 0.60-3 .20 Not Available [facility] [address] [place], [address], 06/12/2018 14:19:14 06/12/20 18 06/12/2018 CBC w/ auto diff absolute monos 0.57 K/uL 0.11-0 .59 Not Available [facility] [address] [place], [address], 06/12/2018 14:19:14 06/12/20 18 06/12/2018 CBC w/ auto diff absolute eos 0.13 K/uL 0.01-0 .50 Not Available [facility] [address] [place] [address], [address], 06/12/2018 14:19:14 06/12/20 18 06/12/2018 CBC w/ auto diff absolute basos 0.09 K/uL 0.00-0 .08 high Not Available [facility] ([facility] [address] [place], [address], 06/12/2018 14:19:14 06/12/20 18 06/12/2018 CBC w/ auto diff granulocytes , immature 0.05 K/uL 0.00-0 .05 Not Available [facility] [address] [place] [address], [address], 06/12/2018 14:19:14 06/12/20 18 06/12/2018 CMP, serum or plasm a sodium 139 mmol/ L 133-14 6 Not Available [facility] [address] [place] [address], [address], 06/12/2018 15:13:28 06/12/20 18 06/12/2018 CMP, serum or plasm a potassium 4.6 mmol/ L 3.3-5. 1 Not Available [facility] [address] [place], [address], 06/12/2018 15:13:28 06/12/20 18 06/12/2018 CMP, serum or plasm a chloride 99 mmol/ L 96-108 Not Available [facility] ([facility] [address] [place], [address], 06/12/2018 15:13:28 06/12/20 18 06/12/2018 CMP, serum or plasm a CO2 28 mmol/ L 21-35 Not Available [facility] ([facility] [address] [place], [address], 06/12/2018 15:13:28 06/12/20 18 06/12/2018 CMP, serum or plasm a BUN 22 mg/dL 6-19 high Not Available [facility] ([facility] [address] [place], [address], 06/12/2018 15:13:28 06/12/20 18 06/12/2018 CMP, serum or plasm a creatinine 0.90 mg/dL 0.5-1. 5 Not Available [facility] [address] [place], [address], 06/12/2018 15:13:28 06/12/20 18 06/12/2018 CMP, serum or plasm a glucose 104 mg/dL 70-99 high Not Available [facility] ([facility] [address] [place], [address], 06/12/2018 15:13:28 06/12/20 18 06/12/2018 CMP, serum or plasm a albumin 4.4 g/dL 3.9-4. 8 Not Available [facility] ([facility] [address] [place], [address], 06/12/2018 15:13:28 06/12/20 18 06/12/2018 CMP, serum or plasm a total protein 6.9 g/dL 6.5-8. 0 Not Available [facility] ([facility] [address] [place], [address], 06/12/2018 15:13:28 06/12/20 18 06/12/2018 CMP, serum or plasm a calcium 9.3 mg/dL 8.4-10 .3 Not Available [facility] [address] [place], [address], 06/12/2018 15:13:28 06/12/20 18 06/12/2018 CMP, serum or plasm a alkaline phosphatase 82 U/L 39-117 Not Available [facility] [address] [place] [address], [address], 06/12/2018 15:13:28 06/12/20 18 06/12/2018 CMP, serum or plasm a total bilirubin 0.4 mg/dL 0.0-1. 2 Not Available [facility] [address] [place] [address], [address], 06/12/2018 15:13:28 06/12/20 18 06/12/2018 CMP, serum or plasm a AST 16 U/L 0-37 Not Available [facility] ([facility] [address] [place], [address], 06/12/2018 15:13:28 06/12/20 18 06/12/2018 CMP, serum or plasm a ALT 18 U/L 0-40 Not Available [facility] [address] [place], [address], 06/12/2018 15:13:28 06/12/20 18 06/12/2018 CMP, serum or plasm a globulin 2.5 g/dL 1-4.8 Not Available [facility] ([facility] [address] [place], [address], 06/12/2018 15:13:28 06/12/20 18 06/12/2018 CMP, serum or plasm a eGFR 66 mL/mi n/1.7 3m2 >59 If patie nt is black , multi ply resul t by 1.159 . Estim ated glome rular filtr ation rate calcu lated using the CKD-E PI equat ion. Not Available [facility] ([facility] [address] [place], [address], 06/12/2018 15:13:28 06/12/20 18 06/12/2018 CMP, serum or plasm a anion gap 17 mmol/ L 10-20 Not Available [facility] ([facility] [address] [place], [address], 06/12/2018 15:13:28 06/12/20 18 06/12/2018 C-andra ctive prote in, quant itati ve, serum or plasm a C reactive protein 3.3 mg/L 0.0-4. 0 Not Available [facility] [address] [place] [address], [address], 06/12/2018 15:13:30 06/12/20 18 06/13/2018 HBsAg (hepa titis B surfa ce Ag), serum HBV surface antigen Negati ve negati ve Not Available [facility]) [address] [place] [address], [address], 06/13/2018 10:03:22 06/12/20 18 06/13/2018 hepat itis B virus core Ab, quali tativ e, serum hep B core Ab, tot Negati ve negati ve Not Available [facility]) [address] [place] [address], [address], 06/13/2018 10:03:24 06/12/20 18 06/14/2018 tb (M [...] a level <0.35 IU/mL . Not Available [facility] [address] [place] [address], [address], 06/14/2018 19:02:21 06/12/20 18 06/14/2018 tb (M tuber culos is), ifn-g deonte sai , blood TB1 Ag minus nil 0.11 IU/mL Not Available [facility] ([facility]) [address] [place] [address], [address], 06/14/2018 19:02:21 06/12/20 18 06/14/2018 tb (M tuber culos is), ifn-g deonte sai , blood TB2 Ag minus nil 0.00 IU/mL Not Available [facility] ([facility]) [address] [place] [address], [address], 06/14/2018 19:02:21 06/12/20 18 06/14/2018 tb (M tuber culos is), ifn-g deonte sai , blood mitogen minus nil 2.75 IU/mL Not Available [facility] ([facility]) [address] [place] [address], [address], 06/14/2018 19:02:21 06/12/20 18 06/14/2018 tb (M tuber culos is), ifn-g deonte sai , blood nil result 0.01 IU/mL Not Available [facility] ([facility]) [address] [place], [address], 06/14/2018 19:02:21 10/18/19 19 10/17/2018 CBC w/ auto diff WBC 10.03 K/uL 3.40-1 1.20 Not Available [facility] ([facility]) [address] [place], [address], 10/17/2018 15:41:19 10/18/19 19 10/17/2018 CBC w/ auto diff RBC 4.02 M/uL 3.80-4 .80 Not Available [facility] ([facility]) [address] [place] [address], [address], 10/17/2018 15:41:19 10/18/19 19 10/17/2018 CBC w/ auto diff HGB 11.9 g/dL 12.0-1 5.0 low Not Available [facility] ([facility] [address] [place], [address], 10/17/2018 15:41:19 10/18/19 19 10/17/2018 CBC w/ auto diff HCT 35.2 % 36.0-4 6.0 low Not Available [facility] ([facility] [address] [place], [address], 10/17/2018 15:41:19 10/18/1910/17/2018 CBC w/ auto diff plt 236 K/uL 130-40 0 Not Available [facility] ([facility] [address] [place], [address], 10/17/2018 15:41:19 10/18/1910/17/2018 CBC w/ auto diff MCV 87.6 fL 79.0-9 8.0 Not Available [facility]) [address] [place] [address], [address], 10/17/2018 15:41:19 10/18/1910/17/2018 CBC w/ auto diff MCH 29.6 pg 27.0-3 4.8 Not Available [facility] ([facility] [address] [place], [address], 10/17/2018 15:41:19 10/18/19 19 10/17/2018 CBC w/ auto diff MCHC 33.8 g/dL 31.5-3 6.0 Not Available [facility] ([facility] [address] [place], [address], 10/17/2018 15:41:19 10/18/19 19 10/17/2018 CBC w/ auto diff RDW 12.9 % 10.8-1 4.6 Not Available [facility] ([facility]) [address] [place], [address], 10/17/2018 15:41:19 10/18/19 19 10/17/2018 CBC w/ auto diff MPV 11.0 fL 9.4-12 .4 Not Available [facility] ([facility] [address] [place], [address], 10/17/2018 15:41:19 10/18/19 19 10/17/2018 CBC w/ auto diff NRBC 0.00 /100_ WBCs 0.00 Not Available [facility] ([facility] [address] [place], [address], 10/17/2018 15:41:19 10/18/1910/17/2018 CBC w/ auto diff absolute NRBC 0.00 K/uL 0.00 Not Available [facility] ([facility] [address] [place], [address], 10/17/2018 15:41:19 10/18/19 19 10/17/2018 CBC w/ auto diff diff method Auto Not Available [facility] [address] [place], [address], 10/17/2018 15:41:19 10/18/1910/17/2018 CBC w/ auto diff neuts 70.1 % 45.30- 77.70 Not Available [facility] ([facility] [address] [place], [address], 10/17/2018 15:41:19 10/18/19 19 10/17/2018 CBC w/ auto diff lymphs 18.2 % 12.30- 39.70 Not Available [facility] ([facility] [address] [place], [address], 10/17/2018 15:41:19 10/18/19 19 10/17/2018 CBC w/ auto diff monos 7.4 % 4.10-1 2.80 Not Available [facility] ([facility] [address] [place], [address], 10/17/2018 15:41:19 10/18/19 19 10/17/2018 CBC w/ auto diff eos 2.8 % 0-7.2 Not Available [facility] ([facility] [address] [place], [address], 10/17/2018 15:41:19 10/18/19 19 10/17/2018 CBC w/ auto diff basos 1.1 % 0-2.80 Not Available [facility] ([facility] [address] [place], [address], 10/17/2018 15:41:19 10/18/1910/17/2018 CBC w/ auto diff granulocytes , immature (%) 0.4 % 0.0-0. 9 Not Available [facility] ([facility] [address] [place], [address], 10/17/2018 15:41:19 10/18/19 19 10/17/2018 CBC w/ auto diff absolute neuts 7.03 K/uL 1.40-7 .70 Not Available [facility] ([facility] [address] [place], [address], 10/17/2018 15:41:19 10/18/19 19 10/17/2018 CBC w/ auto diff absolute lymphs 1.83 K/uL 0.60-3 .20 Not Available [facility] ([facility]) [address] [place], [address], 10/17/2018 15:41:19 10/18/19 19 10/17/2018 CBC w/ auto diff absolute monos 0.74 K/uL 0.11-0 .59 high Not Available [facility] ([facility]) [address] [place], [address], 10/17/2018 15:41:19 10/18/19 19 10/17/2018 CBC w/ auto diff absolute eos 0.28 K/uL 0.01-0 .50 Not Available [facility] ([facility]) [address] [place], [address], 10/17/2018 15:41:19 10/18/19 19 10/17/2018 CBC w/ auto diff absolute basos 0.11 K/uL 0.00-0 .08 high Not Available [facility] ([facility]) [address] [place], [address], 10/17/2018 15:41:19 10/18/19 19 10/17/2018 CBC w/ auto diff granulocytes , immature 0.04 K/uL 0.00-0 .05 Not Available [facility] (Outpatient) [address] [place], [address], 10/17/2018 15:41:19 10/18/19 19 10/17/2018 eryth rocyt e sedim entat ion rate by prema larsen metho d ESR 5 mm/h 0-30 Not Available [facility] (Outpatient) [address] [place], [address], 10/17/2018 16:22:09 10/18/19 19 10/17/2018 CMP, serum or plasm a sodium 143 mmol/ L 133-14 6 Not Available [facility] (Outpatient) [address] [place], [address], 10/17/2018 16:48:20 10/18/19 19 10/17/2018 CMP, serum or plasm a potassium 4.3 mmol/ L 3.3-5. 1 Not Available [facility] [address] [place], [address], 10/17/2018 16:48:20 10/18/19 19 10/17/2018 CMP, serum or plasm a chloride 104 mmol/ L 96-108 Not Available [facility] [address] [place], [address], 10/17/2018 16:48:20 10/18/19 19 10/17/2018 CMP, serum or plasm a CO2 26 mmol/ L 21-35 Not Available [facility] [address] [place], [address], 10/17/2018 16:48:20 10/18/19 19 10/17/2018 CMP, serum or plasm a BUN 28 mg/dL 6-19 high Not Available [facility] [address] [place], [address], 10/17/2018 16:48:20 10/18/19 19 10/17/2018 CMP, serum or plasm a creatinine 1.00 mg/dL 0.5-1. 5 Not Available [facility] [address] [place], [address], 10/17/2018 16:48:20 10/18/19 19 10/17/2018 CMP, serum or plasm a glucose 127 mg/dL 70-99 high Not Available [facility] [address] [place], [address], 10/17/2018 16:48:20 10/18/19 19 10/17/2018 CMP, serum or plasm a albumin 4.3 g/dL 3.9-4. 8 Not Available [facility] [address] [place], [address], 10/17/2018 16:48:20 10/18/19 19 10/17/2018 CMP, serum or plasm a total protein 6.9 g/dL 6.5-8. 0 Not Available [facility] [address] [place], [address], 10/17/2018 16:48:20 10/18/19 19 10/17/2018 CMP, serum or plasm a calcium 9.5 mg/dL 8.4-10 .3 Not Available [facility] [address] [place] [address], [address], 10/17/2018 16:48:20 10/18/19 19 10/17/2018 CMP, serum or plasm a alkaline phosphatase 74 U/L 39-117 Not Available [facility] (Outpatient) [address] [place] [address], [address], 10/17/2018 16:48:20 10/18/19 19 10/17/2018 CMP, serum or plasm a total bilirubin 0.3 mg/dL 0.0-1. 2 Not Available [facility] [address] [place], [address], 10/17/2018 16:48:20 10/18/19 19 10/17/2018 CMP, serum or plasm a AST 19 U/L 0-37 Not Available [facility] [address] [place], [address], 10/17/2018 16:48:20 10/18/19 19 10/17/2018 CMP, serum or plasm a ALT 17 U/L 0-40 Not Available [facility] [address] [place], [address], 10/17/2018 16:48:20 10/18/19 19 10/17/2018 CMP, serum or plasm a globulin 2.6 g/dL 1-4.8 Not Available [facility] [address] [place] [address], [address], 10/17/2018 16:48:20 10/18/19 19 10/17/2018 CMP, serum or plasm a eGFR 58 mL/mi n/1.7 3m2 >59 low If patie nt is black , multi ply resul t by 1.159 . Estim ated glome rular filtr ation rate calcu lated using the CKD-E PI equat ion. Not Available [facility] [address] [place] [address], [address], 10/17/2018 16:48:20 10/18/19 19 10/17/2018 CMP, serum or plasm a anion gap 17 mmol/ L 10-20 Not Available [facility] [address] [place] [address], [address], 10/17/2018 16:48:20 10/18/19 19 10/17/2018 C-andra ctive prote in, quant itati ve, serum or plasm a C reactive protein 6.2 mg/L 0.0-4. 0 high Not Available [facility] [address] [place] [address], [address], 10/17/2018 16:48:21 01/17/20 19 01/16/2019 CBC w/ auto diff WBC 10.98 K/uL 3.40-1 1.20 Not Available [facility] [address] [place] [address], [address], 01/16/2019 16:23:22 01/17/20 19 01/16/2019 CBC w/ auto diff RBC 4.04 M/uL 3.80-4 .80 Not Available [facility] [address] [place] [address], [address], 01/16/2019 16:23:22 01/17/20 19 01/16/2019 CBC w/ auto diff HGB 11.9 g/dL 12.0-1 5.0 low Not Available [facility] [address] [place], [address], 01/16/2019 16:23:22 01/17/20 19 01/16/2019 CBC w/ auto diff HCT 35.3 % 36.0-4 6.0 low Not Available [facility] [address] [place], [address], 01/16/2019 16:23:22 01/17/20 19 01/16/2019 CBC w/ auto diff plt 274 K/uL 130-40 0 Not Available [facility] [address] [place], [address], 01/16/2019 16:23:22 01/17/20 19 01/16/2019 CBC w/ auto diff MCV 87.4 fL 79.0-9 8.0 Not Available [facility] [address] [place], [address], 01/16/2019 16:23:22 01/17/20 19 01/16/2019 CBC w/ auto diff MCH 29.5 pg 27.0-3 4.8 Not Available [facility] [address] [place], [address], 01/16/2019 16:23:22 01/17/20 19 01/16/2019 CBC w/ auto diff MCHC 33.7 g/dL 31.5-3 6.0 Not Available [facility] [address] [place], [address], 01/16/2019 16:23:22 01/17/20 19 01/16/2019 CBC w/ auto diff RDW 13.3 % 10.8-1 4.6 Not Available [facility] [address] [place], [address], 01/16/2019 16:23:22 01/17/20 19 01/16/2019 CBC w/ auto diff MPV 11.7 fL 9.4-12 .4 Not Available [facility] [address] [place], [address], 01/16/2019 16:23:22 01/17/20 19 01/16/2019 CBC w/ auto diff NRBC 0.00 /100_ WBCs 0.00 Not Available [facility] [address] [place], [address], 01/16/2019 16:23:22 01/17/20 19 01/16/2019 CBC w/ auto diff absolute NRBC 0.00 K/uL 0.00 Not Available [facility] [address] [place], [address], 01/16/2019 16:23:22 01/17/20 19 01/16/2019 CBC w/ auto diff diff method Auto Not Available [facility] [address] [place], [address], 01/16/2019 16:23:22 01/17/20 19 01/16/2019 CBC w/ auto diff neuts 81.4 % 45.30- 77.70 high Not Available [facility] [address] [place] [address], [address], 01/16/2019 16:23:22 01/17/20 19 01/16/2019 CBC w/ auto diff lymphs 10.6 % 12.30- 39.70 low Not Available [facility] [address] [place] [address], [address], 01/16/2019 16:23:22 01/17/20 19 01/16/2019 CBC w/ auto diff monos 4.7 % 4.10-1 2.80 Not Available [facility] [address] [place], [address], 01/16/2019 16:23:22 01/17/20 19 01/16/2019 CBC w/ auto diff eos 2.0 % 0-7.2 Not Available [facility] [address] [place], [address], 01/16/2019 16:23:22 01/17/20 19 01/16/2019 CBC w/ auto diff basos 1.0 % 0-2.80 Not Available [facility] [address] [place], [address], 01/16/2019 16:23:22 01/17/20 19 01/16/2019 CBC w/ auto diff granulocytes , immature (%) 0.3 % 0.0-0. 9 Not Available [facility] [address] [place], [address], 01/16/2019 16:23:22 01/17/20 19 01/16/2019 CBC w/ auto diff absolute neuts 8.94 K/uL 1.40-7 .70 high Not Available [facility] [address] [place], [address], 01/16/2019 16:23:22 01/17/20 19 01/16/2019 CBC w/ auto diff absolute lymphs 1.16 K/uL 0.60-3 .20 Not Available [facility] [address] [place], [address], 01/16/2019 16:23:22 01/17/20 19 01/16/2019 CBC w/ auto diff absolute monos 0.52 K/uL 0.11-0 .59 Not Available [facility] ([facility] [address] [place], [address], 01/16/2019 16:23:22 01/17/20 19 01/16/2019 CBC w/ auto diff absolute eos 0.22 K/uL 0.01-0 .50 Not Available [facility] ([facility] [address] [place], [address], 01/16/2019 16:23:22 01/17/20 19 01/16/2019 CBC w/ auto diff absolute basos 0.11 K/uL 0.00-0 .08 high Not Available [facility] ([facility] [address] [place], [address], 01/16/2019 16:23:22 01/17/20 19 01/16/2019 CBC w/ auto diff granulocytes , immature 0.03 K/uL 0.00-0 .05 Not Available [facility] [address] [place], [address], 01/16/2019 16:23:22 01/17/20 19 01/16/2019 eryth rocyt e sedim entat ion rate by prema larsen metho d ESR 9 mm/h 0-30 Not Available [facility] ([facility] [address] [place], [address], 01/16/2019 17:39:50 01/17/20 19 01/16/2019 C-andra ctive prote in, quant itati ve, serum or plasm a C reactive protein 5.2 mg/L 0.0-4. 0 high Not Available [facility] ([facility] [address] [place], [address], 01/16/2019 18:50:56 01/17/20 19 01/16/2019 CMP, serum or plasm a sodium 141 mmol/ L 133-14 6 Not Available [facility] ([facility] [address] [place], [address], 01/16/2019 22:11:00 01/17/20 19 01/16/2019 CMP, serum or plasm a potassium 4.4 mmol/ L 3.3-5. 1 Not Available [facility] ([facility] [address] [place], [address], 01/16/2019 22:11:00 01/17/20 19 01/16/2019 CMP, serum or plasm a chloride 102 mmol/ L 96-108 Not Available [facility] ([facility] [address] [place], [address], 01/16/2019 22:11:00 01/17/20 19 01/16/2019 CMP, serum or plasm a CO2 23 mmol/ L 21-35 Not Available [facility] ([facility] [address] [place], [address], 01/16/2019 22:11:00 01/17/20 19 01/16/2019 CMP, serum or plasm a BUN 23 mg/dL 6-19 high Not Available [facility] ([facility] [address] [place], [address], 01/16/2019 22:11:00 01/17/2001/16/2019 CMP, serum or plasm a creatinine 1.50 mg/dL 0.5-1. 5 Not Available [facility] ([facility] [address] [place], [address], 01/16/2019 22:11:00 01/17/2001/16/2019 CMP, serum or plasm a glucose 161 mg/dL 70-99 high Not Available [facility] [address] [place], [address], 01/16/2019 22:11:00 01/17/2001/16/2019 CMP, serum or plasm a albumin 4.0 g/dL 3.9-4. 8 Not Available [facility] ([facility] [address] [place], [address], 01/16/2019 22:11:00 01/17/2001/16/2019 CMP, serum or plasm a total protein 6.8 g/dL 6.5-8. 0 Not Available [facility] ([facility] [address] [place], [address], 01/16/2019 22:11:00 01/17/2001/16/2019 CMP, serum or plasm a calcium 9.0 mg/dL 8.4-10 .3 Not Available [facility] [address] [place] [address], [address], 01/16/2019 22:11:00 01/17/20 19 01/16/2019 CMP, serum or plasm a alkaline phosphatase 78 U/L 39-117 Not Available [facility] ([facility]) [address] [place] [address], [address], 01/16/2019 22:11:00 01/17/20 19 01/16/2019 CMP, serum or plasm a total bilirubin 0.4 mg/dL 0.0-1. 2 Not Available [facility] ([facility]) [address] [place] [address], [address], 01/16/2019 22:11:00 01/17/20 19 01/16/2019 CMP, serum or plasm a AST 21 U/L 0-37 Not Available [facility] ([facility]) [address] [place] [address], [address], 01/16/2019 22:11:00 01/17/20 19 01/16/2019 CMP, serum or plasm a ALT 19 U/L 0-40 Not Available [facility]) [address] [place] [address], [address], 01/16/2019 22:11:00 01/17/2001/16/2019 CMP, serum or plasm a globulin 2.8 g/dL 1-4.8 Not Available [facility]) [address] [place] [address], [address], 01/16/2019 22:11:00 01/17/2001/16/2019 CMP, serum or plasm a eGFR 35 mL/mi n/1.7 3m2 >59 low If patie nt is black , multi ply resul t by 1.159 . Estim ated glome rular filtr ation rate calcu lated using the CKD-E PI equat ion. Not Available [facility] ([facility]) [address] [place], [address], 01/16/2019 22:11:00 01/17/20 19 01/16/2019 CMP, serum or plasm a anion gap 20 mmol/ L 10- Not Available [facility] ([facility] [address] [place], [address], 01/16/2019 22:11:00 06/12/20 18 06/12/2018 xr chest [...] Final result Pt states sob NATALIE CROWELL Vincent [facility] [address] [place], [address], 06/12/2018 20:56:35 09/07/19 19 09/06/2018 bd dxa [...] Jane MD 9 Final result NATALIE Kaur [facility] [address] [place] [address], [address], 09/08/2018 18:43:16 Result Notes None recorded. 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 309402180 Active 2017 admitted to [place]; lamicatal 11/2017 Natalie Reveles MD [address] [place] [address], [place], [address] , [facility], [place] 8 20:36:49 Gastroes ophageal reflux disease 407121017 Active 2018 [facility] 9 15:48:05 Mixed hyperlip idemia 591130529 Active 2001 Natalie Reveles MD [address] [place], [place] [address]Bet[place], [address], [facility], [place] 6 12:19:12 Colitis, enteriti s and gastroen teritis presumed infectio us 012303205 Completed 200611/06/2009 Natalie Reveles MD [facility] [place], [address], [facility], [place] 6 15:03:24 Nausea 627811525 Completed 200611/06/2009 Natalie Reveles MD [address] [place], [place] [address], [address], [facility], [place] 6 15:03:24 Essentia l hyperten olya 84221291 Completed 200311/06/2009 Natalie Reveles MD [facility] [place], [address], [facility], [place] 6 15:03:24 Nausea and vomiting 84474450 Completed 200611/06/2009 Natalie Reveles MD [address] [place], [place] [address]Bet[place], [address], [facility], [place] 6 15:03:24 Cellulit is and abscess of buttock 586137946 Completed 200011/06/2009 Natalie Reveles MD [facility] [place], [address], [facility], [place] 6 15:03:24 Urinary tract infectio us disease 09898897 Completed 200711/06/2009 [place], [address] , [facility], [place] 6 15:03:24 Benign essentia l hyperten olya 7422410 Active 2001 Natalie Reveles MD [address] [place], [place] [address] [address], [facility], [place] 6 12:19:12 Acute cystitis 33122196 Completed 200411/06/2009 Natalie Reveles MD [address] [place] [address] Betty Hernán[place], [address], [facility], [place] 6 15:03:24 Acute pain 124722074 Completed 200711/06/2009 Natalie Reveles MD [address] [place], [place] [address], [address], [facility], [place] 6 15:03:24 Allergic rhinitis 57243837 Completed 200511/06/2009 Natalie Reveles MD [address] [place], [place] [address], [address], [facility], [place] 6 15:03:24 Osteoart hritis 216056966 Completed 200711/06/2009 Natalie Reveles MD [address] [place], [place] [address], [address], [facility], [place] 6 15:03:24 Sciatica 00493899 Active 2007 spinal stenosis Natalie Reveles MD [address] [place] [address] Betty Hernán[place], [address], [facility], [place] 6 15:03:24 Diabetic on insulin 415379717 Active Natalie Reveles MD [address] [place] [address] Betty Hernán[place], [address], [facility], [place] 6 12:19:12 Type 2 diabetes 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 complica tion 374058508 Active 2004 Natalie Reveles MD [address] [place] [address] Betty Hernán[place], [address], [facility], [place] 6 12:19:12 Anemia 854673844 Completed 200611/06/2009 Natalie Reveles MD [address] [place], [place] [address], [address], [facility], [place] 6 15:03:24 Acute maxillar y sinusiti s 15981200 Completed 200311/06/2009 Natalie Reveles MD [address] [place] [address] Betty Hernán[place], [address], [facility], [place] 6 15:03:24 Arteriti s 10152550 Completed 200511/06/2009 Natalie Reveles MD [address] [place] [address] Betty Hernán[place], [address], [facility], [place] 6 15:03:24 Uncontro lled type 2 diabetes mellitus 692456064 Completed 200606/12/2013 Natalie Reveles MD [address] [place], [place] [address], [address], [facility], [place] 6 15:03:24 Generali zed osteoart hritis 615725109 Completed 200006/12/2013 Natalie Reveles MD [address] [place] [address] Betty Hernán[place], [address], [facility], [place] 6 15:03:24 Hyperlip idemia 25832511 Completed 200111/06/2009 Natalie Reveles MD [address] [place] [address] Betty Hernán[place], [address], [facility], [place] 6 15:03:24 Backache 499651232 Completed 200711/06/2009 Natalie Reveles MD [address] [place] [address] Betty Hernán[place], [address], [facility], [place] 6 15:03:24 Malaise and fatigue 970275562 Completed 200111/06/2009 Natalie Reveles MD [address] [place], [place] [address], [address], [facility], [place] 6 15:03:24 Contact dermatit is 53192545 Completed 11/06/2009 Natalie Reveles MD [facility] [place], [address], [facility], [place] 6 15:03:24 Cough 57745309 Completed 200411/06/2009 Natalie Reveles MD [address] [place], [place] [address], [address], [facility], [place] 6 15:03:24 Rheumato id arthriti s 21730769 Active sero-nega tive Natalie Reveles MD [address] [place], [place] [address], [address], [facility], [place] 6 12:19:12 Fever 102400472 Completed 200611/06/2009 Natalie Reveles MD [address] [place] [address] Betty Hernán[place], [address], [facility], [place] 6 15:03:24 Allergic asthma without status asthmati cus 23122180 Active 2002 Natalie Reveles MD [address] [place] [address] Betty Hernán[place], [address], [facility], [place] 6 15:03:24 Acute sinusiti s 45255891 Completed 05/14/2013 Natalie Reveles MD [address] [place] [address] Betty Hernán[place], [address], [facility], [place] 6 15:03:24 Common cold 55649768 Completed 200211/06/2009 Natalie Reveles MD [address] [place] [address] Betty Hernán[place], [address], [facility], [place] 6 15:03:24 Common cold 92541776 Completed 05/14/2013 Natalie Reveles MD [address] [place] [address] Betty Hernán[place], [address], [facility], [place] 6 15:03:24 On examinat ion - a rash Completed 200511/06/2009 Natalie Reveles MD [address] [place] [address] Betty Hernán[place], [address], [facility], [place] 6 15:03:24 General symptom 146656611 Completed 200611/06/2009 Natalie Reveles MD [address] [place], [place] [address], [address], [facility], [place] 6 15:03:24 Blood chemistr y outside referenc e range 054930682 Completed 200311/06/2009 Natalie Reveles MD [address] [place] [address] Betty Hernán[place], [address], [facility], [place] 6 15:03:24 Hypothyr oidism 13248353 Completed 200607/22/2015 Natalie Reveles MD [address] [place], [place] [address], [address], [facility], [place] 6 15:03:24 Mononeur itis 55709471 Active 2003 Natalie Reveles MD [address] [place], [place] [address], [address], [facility], [place] 6 15:03:24 Primary fibromya lgia syndrome 98499391 Completed 200211/06/2009 Natalie Reveles MD [address] [place], [place] [address], [address], [facility], [place] 6 15:03:24 Vaginiti s and vulvovag initis Completed 200011/06/2009 Natalie Reveles MD [address] [place], [place] [address] [place], [address], [facility], [place] 6 15:03:24 Problem Notes None recorded. Procedures Surgical History Date Name Laterality Status Provider Name and Address Organization Details Recorded Time 9 Medicare Wellness Visit completed Sarah Jewell MA [facility] 12/31/2018 14:43:15 8 Medicare Wellness Visit completed Liz Boyce CMA [facility] 12/27/2017 15:09:17 8 Post hospital/SNF follow-up/[facility] sitional Care completed Liz Boyce CMA [facility] 11/13/2017 14:14:12 8 Nebulizer Tx completed Karmen White LPN [facility] 08/02/2017 14:24:48 7 Medicare Wellness Visit completed Mary Finley MA [facility] 12/25/2016 09:27:15 Imaging Results None recorded. Procedure Notes None recorded. Medical Equipment None Reported. Allergies Allergen ID Allergen Name Allergen Category Reaction Reaction Severity Criticality Documentation Date Start Date Code Code System Note Provider Name and Address Organization Details Recorded Time 227515 doxycycli ne Not available nausea Not available Not available 11/27/2013 3640 RxNorm Kacey Espinoza, [facility] 4 10:10:57 950112 codeine medicatio n nausea Not available Not available 08/17/2015 2670 RxNorm Angelica Hicks, LOCKER ROOM CLERK null, [facility] 6 16:23:36 59011 Substance with sulfonami de structure and antibacte rial mechanism of action (substanc e) medicatio n hives Not available Not available 06/29/2010 16635 8003 SNOMED Not Available [facility] 1 06:05:41 Medications Name Sig Start Date [...] EVERY DAY AT BEDTIME 11/13 completed per [facility] d/c 11/08/17 new dose as follows: [...] Updated DateTime 9 147.95 cm 35.7 kg/m2 96125.6 9 g 64 /min 90 mm[Hg] 54 mm[Hg] Marcia Baron MA [facility] 9 11:24:40 Date Recorded Systolic blood pressure Diastolic blood pressure Systolic blood pressure Diastolic blood pressure Provider Name and Address Organization Details Last Updated DateTime 12/31/2018 120 mm[Hg] 60 mm[Hg] 120 mm[Hg] 60 mm[Hg] Kassie Mcmillanan [facility] 9 15:58:43 Date Recorded Body height Body mass index (BMI) Body weight Oxygen saturation Oxygen saturation in Arterial blood by Pulse oximetry Heart rate Systolic blood pressure Diastolic blood pressure Provider Name and Address Organization Details Last Updated DateTime 9 147.95 cm 36.3 kg/m2 57206.7 6 g 96 % 96 % 76 /min 120 mm[Hg] 62 mm[Hg] Sarah Jewell MA [facility] 9 14:52:36 Date Recorded Body height Body mass index (BMI) Body weight Body temperature Heart rate Oxygen saturation Oxygen saturation in Arterial blood by Pulse oximetry Systolic blood pressure Diastolic blood pressure Provider Name and Address Organization Details Last Updated DateTime 9 147.95 cm 35.9 kg/m2 59299.5 8 g 97.9 [degF] 88 /min 96 % 96 % 114 mm[Hg] 62 mm[Hg] Brooks laurent [facility] 9 09:44:29 Date Recorded Body height Body mass index (BMI) Body weight Heart rate Oxygen saturation Oxygen saturation in Arterial blood by Pulse oximetry Systolic blood pressure Diastolic blood pressure Provider Name and Address Organization Details Last Updated DateTime 8 147.95 cm 35.9 kg/m2 61917.1 8 g 80 /min 97 % 97 % 126 mm[Hg] 74 mm[Hg] Sarah eJwell MA [facility] 8 10:50:58 Social History Question Answer Notes LastModified by Organizat ion Details LastModified Time Tobacco Smoking Status Never Smoker Not Available [facility] 05/11/2011 04:54:19 Do You Have An Advance Directive? No Information not available 12/11/2013 Do You Wear A Helmet When Biking? No Information not available 06/23/2014 What Is Your Level Of Caffeine Consumption? Moderate 4 Cups Tea Daily Information not available 12/27/2017 How Much Tobacco Do You Chew? None 17 Information not available 05/11/2011 What Type Of Diet Are You Following? REGULAR Information not available 05/11/2011 Which Illicit Or Recreational Drugs Have You Used? None spise Information not available 08/29/2018 How Many Days In The Past Year Have You Had A Heavy Drinking Consumption (4+ Female, 5+ Male)? 0 Information not available 11/30/2016 Are There Any Guns Present In Your Home? No Information not available 05/11/2011 Live Alone Or With Others? With Others Sister, Uncle, Brother In Law [email or web address] Information not available 06/12/2013 CSRP - Narcotics [...] available 06/12/2013 Seat Belts Used Routinely Yes Information not available 05/11/2011 Smoke Alarm In Home Yes Information not available 05/11/2011 How Much Tobacco Do You Smoke? No Information not available 04/29/2015 General Stress Level Medium Information not available 04/29/2015 Do You Use Sunscreen Routinely? Yes Information not available 05/11/2011 Sex: Unknown Functional Status Question Answer Note LastModified by Organizat ion Details LastModified Time What is your level of alcohol consumption? Occasional Once yearly maybe [email or web address] Information not available 12/31/2018 Do you or have you ever used smokeless tobacco? Never used smokeless tobacco [facility] not available 02/20/2019 What is your occupation? Retired Health Information [employer] nikki Information not available 12/31/2018 Do you or have you ever used e-cigarettes or vape? Never used electronic cigarettes [email or web address] Information not available 02/20/2019 Mental Status None recorded. Family History Relationship Description Onset Age of this Age Resolved Age Notes LastModified by Organization Details LastModified Time Sister Diabetes mellitus [facility] Not available 2015 16:41:38 Notes:Diabetes. Sister with brain tumor. Medical History Condition Response Diabetes Type II Y Hyperlipidemia Y Osteoarthritis Y Hypertension Y Asthma Y Gynecological HistoryNo gynecological history recorded. Obstetrics History GPAL:G 0 P 0 0 0 0 Immunizations Vaccine Type Date Status Note Provider Nam e and Address Organization Details Recorded Time tetanus toxoid, unspecified formulation 1 completed Not Available [facility] 07/12/2019 02:34:13 influenza, unspecified formulation 0 completed Not Available [facility] 05/10/2011 05:22:52 Influenza, split virus, trivalent, preservative [address] [facility] 05/17/2011 14:09:08 Tdap 1 completed Fang Robison RN [facility] 06/12/2011 16:12:51 influenza, unspecified formulation 2 [facility] 16:38:35 influenza, unspecified formulation 3 [facility] 06/12/2013 16:12:54 influenza, unspecified formulation 4 [facility] 06/23/2014 15:26:51 influenza, unspecified formulation 5 completed LISANDRO Neely, [facility] 04/29/2015 14:13:29 Pneumococcal conjugate PCV 13 8 completed Not Available [facility] 07/12/2019 02:22:36 Hep B, adult 9 completed Not Available [facility] 07/12/2019 02:34:54 influenza, unspecified formulation 6 completed Not Available [facility] 07/26/2019 02:10:42 pneumococcal polysaccharide PPV23 9 completed Not Available [facility] 07/12/2019 02:24:02 Influenza, split virus, quadrivalent, preservative 7 completed Liz Boyce CMA [facility], [facility] 05/03/2017 14:36:38 Past Encounters Encounter ID Performer Location Encounter Start Date Encounter Closed Date Diagnosis/Indication Diagnosis SNOMED-CT Code Diagnosis ICD10 Code Diagnosis Note [id number] Natalie Reveles MD , [facility], [address] [place] [address] 09/14/2000 12:00:00 07/15/2008 02:02:29 [id number] Natalie Reveles MD , [facility], [address] [place] [address] 10/16/2000 10:45:00 07/15/2008 02:02:29 [id number] Elvis Grover MD , [facility], [address] [place] [address] 02/28/2001 14:15:00 07/15/2008 02:02:29 [id number] Elvis Grover MD , [facility], [address] [place] [address] 03/01/2001 09:45:00 07/15/2008 02:02:29 [id number] Natalie Reveles MD , [facility], [address] [place] [address] 10/22/2001 09:00:00 07/15/2008 02:02:[id number] [facility] - [facility] [address] [place] [address] 10/22/2001 10:30:00 07/15/2008 02:02:29 [id number] Natalie Reveles MD , [facility], [address] [place] [address] 12/02/2001 08:19:54 07/15/2008 02:02:29 [id number] [facility] , [facility] [address] [place] [address] 12/02/2001 11:21:25 07/15/2008 02:02:29 [id number] [facility] - [facility] [address] [place] [address] 04/24/2002 08:28:24 07/15/2008 02:02:29 [id number] Natalie Reveles MD , [facility], [address] [place] [address] 04/30/2002 16:42:20 07/15/2008 02:02:29 [id number] [facility] - [address] [address] 07/22/2002 09:02:09 07/15/2008 02:02:29 [id number] Natalie Reveles MD , [facility], [address] [place] [address] 07/29/2002 16:39:59 07/15/2008 02:02:29 [id number] Natalie Reveles MD , [facility], [address] [place] [address] 10/30/2002 11:15:27 07/15/2008 02:02:29 [id number] [facility] - [address] [address] 10/30/2002 12:12:41 07/15/2008 02:02:29 [id number] Natalie Reveles MD , [facility], [address] [place] [address] 12/31/2002 10:02:51 07/15/2008 02:02:29 [id number] [facility] - [facility] [address] [place] [address] 12/31/2002 00:00:00 07/15/2008 02:02:29 [id number] [facility] - [address] [place] [address] 01/13/2003 11:28:31 07/15/2008 02:02:29 [id number] [facility] , [facility] [address] [place] [address] 01/15/2003 08:55:54 07/15/2008 02:02:29 [id number] ENRIKE Haq , [facility], [address] [place] [address] 07/03/2003 16:41:59 07/04/2003 10:51:01 [id number] MD RAJEEV Norwood, [facility], [address] [place] [address] 10/13/2003 14:52:44 10/14/2003 08:39:08 [id number] [facility] - [facility] [address] [place] [address] 10/22/2003 08:14:06 10/22/2003 08:14:10 [id number] Natalie Reveles MD , [facility], [address] [place] [address] 12/10/2003 14:34:40 12/12/2003 13:55:58 [id number] [facility] - [facility] [address] [place] [address] 03/30/2004 08:05:15 03/30/2004 08:05:20 [id number] MD RAJEEV Norwood, [facility], [address] [place] [address] 07/04/2004 13:43:22 07/04/2004 17:14:21 [id number] MD RAJEEV Norwood, [facility], [address] [place] [address] 07/26/2004 09:25:43 07/27/2004 08:19:25 [id number] MD RAJEEV Norwood, [facility], [address] [place] [address] 08/08/2004 15:52:00 08/09/2004 08:55:32 [id number] MD RAJEEV Norwood, [facility], [address] [place] [address] 6 09/05/2004 07:59:25 09/05/2004 15:25:12 [id number] ENRIKE Chambers, [facility], [address] [place] [address] 09/19/2004 13:51:52 09/19/2004 17:45:01 [id number] [facility] - [facility] [address] [place] [address] 10/05/2004 08:38:59 10/05/2004 08:39:04 [id number] MD RAJEEV Norwood, [facility], [address] [place] [address] 10/10/2004 07:58:34 10/10/2004 14:31:17 [id number] Valentine Mckenzie NP , [facility], [address] [place] [address] 11/03/2004 13:44:09 07/15/2008 02:02:29 [id number] [facility] - [facility] [address] [place] [address] 01/16/2005 08:22:10 01/16/2005 08:22:26 [id number] MD RAJEEV Norwood, [facility], [address] [place] [address] 01/24/2005 08:00:36 07/15/2008 02:02:29 [id number] [facility] Radiology , [facility] [address] [place] [address] 02/13/2005 11:40:53 07/15/2008 02:02:29 [id number] [facility] , [facility] [address] [place] [address] 02/13/2005 00:00:00 07/15/2008 02:02:29 [id number] Natalie Reveles MD , [facility], [address] [place] [address] 04/12/2005 08:22:15 07/15/2008 02:02:29 [id number] Rocky Lehman MD , [facility], [address] [place] [address] 04/28/2005 16:18:32 07/15/2008 02:02:29 [id number] [facility] - [facility] [address] [place] [address] 08/22/2005 08:28:59 08/22/2005 08:29:02 [id number] MD RAJEEV Norwood, [facility], [address] [place] [address] 08/28/2005 15:40:14 08/29/2005 08:44:57 [id number] Natalie Reveles MD , [facility], [address] [place] [address] 09/21/2005 14:22:16 07/15/2008 02:02:29 [id number] [facility] - [address] [address] 09/21/2005 15:10:47 09/21/2005 15:11:05 [id number] [facility] - [address] [address] 01/23/2006 08:32:14 01/23/2006 08:32:24 [id number] Natalie Reveles MD , [facility], [address] [place] [address] 02/05/2006 11:04:33 02/06/2006 09:17:09 [id number] Natalie Reveles MD , [facility], [address] [place] [address] 03/21/2006 10:05:20 03/22/2006 08:20:24 [id number] MD RAJEEV Norwood, [facility], [address] [place] [address] 04/04/2006 11:34:15 04/08/2006 09:14:42 [id number] [facility] - [address] [address] 04/25/2006 08:18:53 04/25/2006 08:19:04 [id number] Natalie Reveles MD , [facility], [address] [place] [address] 05/03/2006 09:59:10 05/04/2006 08:46:05 [id number] [facility] Radiology , [address] [address] 05/08/2006 08:08:08 07/15/2008 02:02:29 [id number] [facility] , [address] [address] 05/08/2006 00:00:00 07/15/2008 02:02:29 [id number] MD RAJEEV Norwood, [facility], [address] [place] [address] 07/31/2006 08:56:23 07/31/2006 14:16:09 [id number] [facility] - [address] [address] 07/31/2006 10:36:02 07/31/2006 10:36:06 [id number] Natalie Reveles MD , [facility], [address] [facility] [address] 08/07/2006 08:36:04 08/08/2006 08:58:07 [id number] [facility] - [facility] [address] [facility] [address] 10/22/2006 08:25:40 10/22/2006 08:25:45 [id number] Natalie Reveles MD , [facility], OFFICE [address] [facility] [place] [address] 10/29/2006 07:59:04 10/29/2006 10:37:03 [id number] [facility] - [address] [address] 10/30/2006 08:27:25 10/30/2006 08:27:30 [id number] Elvis Grover MD , [facility], OFFICE [address] [place] [address] 11/26/2006 10:44:18 11/26/2006 15:10:48 [id number] [facility] - [address] [address] 11/26/2006 11:29:37 11/26/2006 11:29:44 [id number] Elvis Grover MD , [facility], [address] [place] [address] 12/06/2006 14:26:14 12/07/2006 08:30:34 [id number] Natalie Reveles MD , [facility], [address] [place] [address] 12/10/2006 13:46:03 12/11/2006 09:05:34 [id number] [facility] - [address] [address] 12/10/2006 14:31:03 12/10/2006 14:31:43 [id number] [facility] - [address] [address] 01/04/2007 07:54:29 01/04/2007 07:54:36 [id number] [facility] - [address] [address] 04/08/2007 08:14:44 04/08/2007 08:14:49 [id number] Natalie Reveles MD , [facility], [address] [place] [address] 04/15/2007 16:27:24 04/18/2007 08:58:27 [id number] [facility] , [facility] [address] [place] [address] 06/29/2007 09:23:36 07/01/2007 09:13:11 [id number] Natalie Reveles MD , [facility], [address] [place] [address] 09/20/2007 14:25:55 07/15/2008 02:02:29 [id number] Natalie Reveles MD , [facility], [address] [place] [address] 10/08/2007 14:05:16 07/15/2008 02:02:29 [id number] [facility] - [address] [address] 10/29/2007 08:19:39 10/29/2007 08:19:43 [id number] Natalie Reveles MD , [facility], [address] [place] [address] 11/05/2007 09:43:59 07/15/2008 02:02:29 [id number] [facility] - [address] [address] 11/12/2007 08:23:38 11/12/2007 08:23:44 [id number] [facility] - [address] [address] 01/17/2008 12:48:01 01/17/2008 12:48:16 [id number] Natalie Reveles MD , [facility], [address] [place] [address] 01/24/2008 14:09:47 07/15/2008 02:02:29 [id number] [facility] - [address] [address] 01/24/2008 15:39:37 01/24/2008 15:40:02 [id number] [facility] - [address] [address] 01/24/2008 00:00:00 07/15/2008 02:02:29 [id number] MD RAJEEV Norwood, [facility], [address] [place] [address] 03/30/2008 10:44:06 07/15/2008 02:02:29 [id number] Abigail catalan, PT Physical Therapy, [address] [address] 03/31/2008 11:58:11 04/01/2008 09:12:25 [id number] Abigail catalan, PT Physical Therapy, [address] [address] 04/02/2008 08:36:13 04/02/2008 16:25:15 [id number] Abigail catalan, PT Physical Therapy, [address] [address] 04/07/2008 08:34:12 04/07/2008 14:43:31 [id number] Abigail catalan, PT Physical Therapy, [address] [address] 6 04/09/2008 08:37:17 04/09/2008 15:42:30 [id number] Abigail catalan, PT Physical Therapy, [address] [address] 04/14/2008 08:31:29 04/14/2008 14:21:06 [id number] [facility] - [address] [address] 07/07/2008 11:15:56 07/07/2008 11:16:03 [id number] MD RAJEEV Norwood, [facility], [address]ICE [address] [place] [address] 07/14/2008 13:28:43 07/24/2008 13:00:23 [id number] [facility]iology , [address] [address] 12/19/2008 08:52:20 12/22/2008 14:08:26 [id number] Rachel Obrien NP , [facility], [address]ICE [address] [place] [address] 06/24/2009 14:39:32 06/24/2009 16:02:12 [id number] MD RAJEEV Norwood, [facility], [address] [place] [address] 10/25/2009 13:26:11 11/10/2009 13:32:16 [id number] [facility] RADIOLOGY Technologi Radiology , [facility] [address] [place] [address] 10/25/2009 14:29:01 10/26/2009 11:21:38 [id number] Natalie Reveles MD , [facility], [address] [place] [address] 06/29/2010 11:23:06 07/26/2010 11:56:31 [id number] Natalie Reveles MD , [facility], [address] [place] [address] 09/22/2010 13:34:57 09/22/2010 17:04:13 [id number] Meghann Ayala NP , [facility], [address] [place] [address] 04/05/2011 09:42:34 04/05/2011 10:07:18 [id number] Oscar Islas MD , [facility], [address] [place] [address] 04/10/2011 09:24:01 04/11/2011 11:28:27 [id number] Natalie Reveles MD , [facility], [address] [place] [address] 05/17/2011 13:46:28 05/17/2011 15:12:35 [id number] [facility] Radiology , [facility] [address] [place] [address] 05/17/2011 14:58:54 05/22/2011 15:07:56 [id number] Natalie Reveles MD , [facility], [address] [place] [address] 05/26/2011 16:22:49 05/29/2011 14:16:46 [id number] Natalie Reveles MD , [facility], [address] [place] [address] 11/21/2011 11:10:29 11/21/2011 12:20:19 [id number] Natalie Reveles MD , [facility], [address] [place] [address] 05/21/2012 15:50:05 05/21/2012 17:16:10 [id number] ENRIKE Haq , [facility], [address] [place] [address] 08/06/2012 09:44:43 08/06/2012 10:34:24 [id number] Natalie Reveles MD , [facility], [address] [place] [address] 11/01/2012 15:29:43 11/04/2012 10:55:05 [id number] Natalie Reveles MD , [facility], [address] [place] [address] 02/21/2013 11:09:19 02/21/2013 12:15:52 Benign essential hypertension 2453532 continue to work on diet ,exercisea nd lowering salt intake as discussed Mixed hyperlipidemia 986869166 continue to work on diet and exercise as discussed Diabetic on insulin 392992306 Rheumatoid arthritis 22950471 [id number] Natalie Reveles MD , [facility], [address] [place] [address] 06/12/2013 15:53:14 06/12/2013 17:00:00 Benign essential hypertension 7372307 continue to work on diet ,exercisea nd lowering salt intake as discussed Mixed hyperlipidemia 361539273 continue to work on diet and exercise as discussed Adult heal th examination [id number] see Risk Assessment and Lifestyle Change Counseling section above Diabetic on insulin 493397871 Neuropathy due to diabetes mellitus 075857470 Mononeuritis 38643894 Rheumatoid arthritis 87950822 [id number] ISAAC Schumacher-VANESA , [facility], [address] [place] [address] 06/19/2013 13:36:30 06/19/2013 14:00:11 Acute sinusitis 82283885 sx tx including afrin- strt ab if no relief Common cold 87319838 [facility] er Respirator y Infection Drink plenty of [...] days, or you have a high fever. [id number] Natalie Reveles MD , [facility], [address] [place] [address] 09/23/2013 13:47:10 09/24/2013 10:04:00 Sinusitis 14281765 [id number] Rocky Lehman MD , [facility], [address] [place] [address] 09/29/2013 16:41:29 09/30/2013 09:41:00 Acute sinusitis 88757083 [id number] Meghann Ayala NP , [facility], [address] [place] [address] 11/27/2013 09:59:23 11/27/2013 16:10:44 Cough 73227734 [id number] Natalie Reveles MD , [facility], [address] [place] [address] 12/11/2013 14:25:08 12/11/2013 15:34:31 Benign essential hypertension 3476144 continue to work on diet ,exercisea nd lowering salt intake as discussed Mixed hyperlipidemia 697792372 continue to work on diet and exercise as discussed Neuropathy due to diabetes mellitus 592002603 Diabetic on insulin 920254348 [id number] Natalie Reveles MD , [facility], [address] [place] [address] 06/23/2014 15:01:46 06/23/2014 16:03:39 Spinal stenosis of lumbar region 63095944 Neuropathy due to diabetes mellitus 619517032 Diabetic on insulin 115047595 Allergic a sthma without status asthmaticus 51663048 Mixed hyperlipidemia 169148819 continue to work on diet and exercise as discussed Mononeuritis 39759246 Rheumatoid arthritis 52301876 Type 2 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 919972842 [id number] Natalie Reveles MD , [facility], [address] [place] [address] 12/31/2014 14:26:47 12/31/2014 15:36:09 Benign essential hypertension 5687263 continue to work on diet, exercise, and lowering salt intake as discussed Blood pressure at goal Mixed hyperlipidemia 578845168 continue to work on diet and exercise as discussed Diabetic on insulin 914213917 Rheumatoid arthritis 56651991 [id number] Natalie Reveles MD , [facility], [address] [place] [address] 04/29/2015 13:53:38 04/29/2015 14:45:02 Benign essential hypertension 8961592 I10 continue to work on diet, exercise, and lowering salt intake as discussed Mixed hyperlipidemia 267 836901 E78.2 continue to work on diet and exercise as discussed Diabetic on insulin 1707 87526 Z79.4 Type 2 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 707497186 E11.9 Neuropathy due to diabetes mellitus 101720881 E11.42 Allergic a sthma without status asthmaticus 06326383 J45.909 Rheumatoid arthritis 698 68094 M06.9 [id number] Natalie Reveles MD , [facility], [address] [place] [address] 07/22/2015 14:47:13 07/22/2015 15:54:33 Benign essential hypertension 2498277 I10 Blood pressure at goal continue to work on diet, exercise, and lowering salt intake as discussed Mixed hyperlipidemia 267 153498 E78.2 continue to work on diet and exercise as discussed Adult [facility] th examination 250953938 Z00.00 see Risk Assessment and Lifestyle Change Counseling section above Neuropathy due to diabetes mellitus 269843350 E11.42 Diabetic on insulin 1707 89839 Z79.4 Hypothyroidism 27085590 E03.9 Rheumatoid arthritis 698 07891 M06.9 Spinal shara nosis of lumbar region 99159348 M48.06 Type 2 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 254814678 E11.9 [id number] Batsheva Cobb MD , [facility], [address] [place] [address] 08/17/2015 16:10:28 08/17/2015 16:58:40 Acute sinusitis 44197095 J01.90 Eczema 51605278 L30.9 Asthma 401629444 J45.90 9 Allergic rhinitis 898539 04 J30.9 [id number] Natalie Reveles MD , [facility], [address] [place] [address] 11/23/2015 14:02:11 11/23/2015 15:24:07 Benign essential hypertension 0301587 I10 Blood pressure at goal continue to work on diet, exercise, and lowering salt intake as discussed Mixed hyperlipidemia 267 095470 E78.2 Cholestero l is at goal Continue to work on diet and exercise as discussed Neuropathy due to diabetes mellitus 980203307 E11.42 Rheumatoid arthritis 698 28467 M06.9 Type 2 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 583352756 E11.9 Diabetic on insulin 1707 43354 Z79.4 [id number] Natalie Reveles MD , [facility], [address] [place] [address] 03/23/2016 14:19:29 03/23/2016 15:26:40 Benign essential hypertension 7631312 I10 Blood pressure at goal Blood pressure NOT at goal. Mixed hyperlipidemia 267 524720 E78.2 continue to work on diet and exercise as discussed Sinusitis 08759205 J32.9 Eczema 77201055 L30.9 Diabetic on insulin 1707 15785 Z79.4 Mononeuritis 82714325 G5 8.9 Rheumatoid arthritis 698 24575 M06.9 [id number] Natalie Reveles MD , [facility], [address] [place] [address] 06/13/2016 14:40:53 06/13/2016 15:36:21 Acute sinusitis 61101454 J01.90 [id number] Natalie Reveles MD , [facility], [address] [place] [address] 11/30/2016 13:57:42 11/30/2016 15:08:02 Diabetic on insulin 382660137 Z79.4 Type 2 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 258360819 E11.9 Mixed hyperlipidemia 267 562898 E78.2 continue to work on diet and exercise as discussed Acute sinusitis 98700292 J01.90 [id number] Natalie Reveles MD , [facility], [address] [place] [address] 12/25/2016 09:20:57 12/25/2016 10:34:52 Adult health examination 197714794 Z00.00 see Risk Assessment and Lifestyle Change Counseling section above Counseling 842817856 Z71 .9 Mixed hyperlipidemia 267 487691 E78.2 continue to work on diet and exercise as discussed Benign ess ential hypertension 8459954 I10 Blood pressure at goal and re Mononeuritis 56262682 G5 8.9 Sciatica 92917745 M54.30 Diabetic on insulin 1707 86214 Z79.4 Rheumatoid arthritis 698 02857 M06.9 Neuropathy due to diabetes mellitus 678357254 E11.42 Hearing loss 72063372 H9 1.90 [id number] Natalie Reveles MD , [facility], [address] [place] [address] 05/03/2017 14:27:16 05/03/2017 15:21:54 Benign essential hypertension 4647843 I10 Blood pressure at goal . Mixed hyperlipidemia 267 926673 E78.2 continue to work on diet and exercise as discussed Sciatica 82928052 M54.30 Type 2 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 525862982 E11.9 Diabetic on insulin 1707 47883 Z79.4 Rheumatoid arthritis 698 30835 M06.9 [id number] Rachel Obrien NP FP, [facility], [address] [place] [address] 06/27/2017 15:27:55 06/27/2017 15:57:15 Acute sinusitis 47524308 J01.90 discussed tx options,. At this point will tx with abx, probiotics , nasal rinses and rest. RTC prn [id number] Mami Bernstein MD , [facility], [address] [place] [address] 08/02/2017 13:49:47 08/02/2017 14:54:19 Allergic asthma without status asthmaticus 22838452 J45.909 feels diminished and wheezingbr eath sounds goodafter neb a bit improvedpe ak flows lower range, not much changesubj ectively feels easier to deep breath after nebulizerb ut albuterol makes her jittery and she avoids it when possiblesh ort term trial inhaled steroidcon tinue proair as neededf/u if not improving Acute uppe r respiratory infection 96577389 J06.9 Kriss is presenting today with recurrent URI sxthis does sound like a new viral URI and not pna or recurrent sinus infections upportive instr giventx coughaugme nt asthma mgmt [id number] Natalie Reveles MD , [facility], [address] [place] [address] 09/13/2017 14:23:47 09/13/2017 15:31:30 Benign essential hypertension 0019966 I10 Blood pressure at goal Mixed hyperlipidemia 267 375879 E78.2 continue to work on diet and exercise as discussed Sciatica 99651649 M54.30 Type 2 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 312527754 E11.9 Mononeuritis 11624605 G5 8.9 Rheumatoid arthritis 698 54330 M06.9 Diabetic on insulin 1707 07912 Z79.4 Anemia 179520229 D64.9 Asthma 099621727 J45.90 9 Active or passive immunization 729148509 Z23 [id number] Natalie Reveles MD , [facility], [address] [place] [address] 11/13/2017 14:08:31 11/13/2017 14:54:27 Transient cerebral ischemia 985540913 G45.9 Diabetic on insulin 1707 76241 Z79.4 [id number] Natalie Reveles MD , [facility], [address] [place] [address] 12/27/2017 14:34:57 12/27/2017 16:04:03 Adult health examination 322281948 Z00.00 see Risk Assessment and Lifestyle Change Counseling section above Counseling 391209930 Z71 .9 Depression screening 171 067890 Z13.89 depression screening tool administer ed, entered into emr, scored and discussed, time greater than 7.5 minutes Focal onse t impaired awareness epileptic seizure 043921062 G40.209 Benign ess ential hypertension 9272070 I10 Blood pressure at goal Sciatica 65343922 M54.30 Mixed hyperlipidemia 267 768295 E78.2 continue to work on diet and exercise as discussed Type 2 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 540091706 E11.9 Allergic a sthma without status asthmaticus 43293038 J45.909 Diabetic on insulin 1707 09683 Z79.4 Rheumatoid arthritis 698 72204 M06.9 Neuropathy due to diabetes mellitus 470599434 E11.42 Screening mammography 24 651736 Z12.31 Active or passive immunization 016119141 Z23 [id number] Natalie Reveles MD , [facility], [address] [place] [address] 04/30/2018 10:39:49 04/30/2018 11:23:30 Counseling 938215026 Z71.9 Benign ess ential hypertension 1790202 I10 Blood pressure at goal Mixed hyperlipidemia 267 665163 E78.2 continue to work on diet and exercise as discussed Focal onse t impaired awareness epileptic seizure 839655425 G40.209 Sciatica 58442108 M54.30 Type 2 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 686796364 E11.9 Mononeuritis 04637927 G5 8.9 Diabetic on insulin 1707 47366 Z79.4 Rheumatoid arthritis 698 81137 M06.9 Allergic a sthma without status asthmaticus 73626470 J45.909 Intolerant of ambient temperature 313282427 R68.89 [id number] Natalie Reveles MD , [facility], [address] [place] [address] 07/04/2018 09:15:51 07/04/2018 09:27:41 Active or passive immunization 779032581 Z23 [id number] Natalie Reveles MD , [facility], [address] [place] [address] 08/29/2018 11:16:37 08/30/2018 10:37:41 Acute sinusitis 46155275 J01.90 Benign ess ential hypertension 8614393 I10 Blood pressure at goal Type 2 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 019866936 E11.9 Mononeuritis 92936965 G5 8.9 Rheumatoid arthritis 698 12482 M06.9 [id number] Natalie Reveles MD , [facility], [address] [place] [address] 12/31/2018 14:40:49 12/31/2018 16:07:09 Adult health examination 584016861 Z00.00 see Risk Assessment and Lifestyle Change Counseling section above Counseling 249799860 Z71 .9 Depression screening 171 114138 Z13.89 depression screening tool administer ed, entered into emr, scored and discussed, time greater than 7.5 minutes Mixed hyperlipidemia 267 910382 E78.2 Focal onse t impaired awareness epileptic seizure 009893459 G40.209 Benign ess ential hypertension 0101532 I10 Blood pressure at goal Sciatica 96932421 M54.30 Type 2 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 141997867 E11.9 Allergic a sthma without status asthmaticus 56446318 J45.909 Diabetic on insulin 1707 44277 Z79.4 Rheumatoid arthritis 698 76192 M06.9 Gastroesop hageal reflux disease 000430258 K21.9 Active or passive immunization 281614074 Z23 Neuropathy due to diabetes mellitus 869951558 E11.42 [id number] Natalie Reveles MD , [facility], [address] [place] [address] 02/20/2019 09:32:43 02/20/2019 10:11:54 Acute sinusitis 89370570 J01.90 Health Concerns Section Related Observation LastModified by Organization Detai ls LastModified Time None Recorded Concern Status LastModified by Organization Details LastModified Time None Recorded Advance Directives Directive N: Payers Insurance Date Sequence Insurance Name Policy Number Policy Samuel Covered Member ID Samuel Member ID Guarantor Name 11/20/2017 1 [place] [facility] ([place]) [id number] Kriss Jackson [id number] Kriss Keys Young 11/20/2017 2 [place] [id number] Kriss Jackson [id number] Kirss Keys Young 07/05/2004 1 *SELF PAY* Ru th Massimo Young 11/01/2012 1 [place] [id number] Kriss Jackson [id number] Kriss Keys Young 11/20/2017 1 [place] [facility] [id number] Kriss Jackson [id number] Kriss Keys Young 11/01/2012 1 [facility] (PPO) [id number] Kriss Jackson [id number] Kriss Keys Young 07/01/2013 1 [facility] [facility] (PPO) [id number] Kriss Jackson [id number] Kriss Keys Young 11/01/2012 1 [facility] [id number] Kriss Jackson [id number] Kriss Keys Young 11/20/2017 1 BLUE [employer] [facility] (PPO) [id number] Kriss Jackson [id number] Kriss Keys Young 02/20/2019 2 [place] [id number] Kriss Jackson [id number] Kriss Keys Young 02/20/2019 1 [place] [facility] Kriss Jackson [id number] Kriss Jackson Notes Date Note Type Note [...] intolerance has developed recently Natalie Reveles MD [address] [place] [address], [phone], [facility] [place], [place] 05/11/2018 15:01:12 9 text/html 67 yo with [...] lidocaine patches prn for feetCame back from [place] yesterday and had allergy sx. Using flonase, asthma inhaler, loratidine.Recent A1 C was <6% per Dr. 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 Chance) Natalie Reveles MD [address] [place] [address], [phone], [facility] [place], [place] 01/05/2019 14:13:02 9 text/html Physical Exam/FemaleReported bypatient.PHAPatient [...] room and availability of urgent care at [facility] DiabetesReported bypatient.Duration:chronic Control:usually well controlled; improved since [...] green sputum. No dyspnea Natalie Reveles MD [address] [place] [address], [phone], [facility] [place], [place] 02/20/2019 10:14:25 OBGyn Episode No OBEpisode recorded.
== END 2024-12-05 08:48 | disposition home or self-care (01) ==
LOC: HO.MAMMO 08:47
PROVIDERS: PCP Internal Medicine; Visit Provider Internal Medicine
DX: Z12.31 Encounter for screening mammogram for malignant neoplasm of breast (principal)
CPT/HCPCS: 77063; 77067

== ENCOUNTER → 2024-12-05 09:00 | Outpatient (BNV) | payer MEDICARE, SELFPAY | PROVIDERS: PCP Internal Medicine; Visit Provider Internal Medicine | DX: Z12.31 Encounter for screening mammogram for malignant neoplasm of breast (principal) | CPT/HCPCS: 77063; 77067 ==

== ENCOUNTER 2024-12-18 09:00 | Outpatient (AMB) | payer MEDICARE, SELFPAY ==
--- NOTE | 2024-12-18 09:27 | MHC.PC.OV ---
Vital Signs 12/18/24 09:29 Height 4 ft 10 in Weight 140 lb 4 oz BMI 29.3 BP 132/82 Blood Pressure Location Lt brachial Position Sitting Pulse 61 Pulse Source Pulse Oximeter Temp 97.3 F Temp Source Temporal Artery Scan Pulse Oximetry (%) 99 Oxygen Delivery Method Room Air Intake Visit Reasons: 3 month f/u Intake Note: Patient is here to follow up on DM. Auto Transmission Specialist Required: No Network Support Engineer: Present Accompanied by: Grand Child Allergies duloxetine Allergy (Severe, Verified 12/18/24 09:29) LOOPY codeine (CODEINE) Allergy (Intermediate, Verified 12/18/24 09:29) GI UPSET doxycycline (DOXYCYCLINE) Allergy (Intermediate, Verified 12/18/24 09:29) RASH Sulfa (Sulfonamide Antibiotics) (SULFA (SULFONAMIDE ANTIBIOTICS)) Allergy (Intermediate, Verified 12/18/24 09:29) Hives Tobacco use date assessed: 12/18/24 Fall risk assessment: No Falls in past year Last assessed Fall Risk: 12/18/24 Dental Screening Dental Screen Date: 08/21/24 [facility] Medical History Lexi infection of mouth Varicose veins of both lower extremities with inflammation Petechiae Dysphagia Encounter for ongoing osteoporosis therapy, bisphosphonates Osteoarthritis of hands, bilateral Osteopenia Rheumatoid arthritis with negative rheumatoid 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 Edema of lower extremity present on examination support worker use of drug Irritable bowel syndrome with diarrhea Rheumatoid arthritis Pacemaker TIA (transient ischemic attack) Dysphagia Spinal stenosis COVID COVID-19 Laryngopharyngeal reflux (LPR) Asthma Rotator cuff tendinitis Post-menopausal Polyarthralgia Dyspnea on exertion Allergic rhinitis Bronchitis Asthma exacerbation Cough variant asthma DJD (degenerative joint disease) Decreased hearing GERD (gastroesophageal reflux disease) Type 2 diabetes 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s Surgical History S/P placement of cardiac pacemaker History of esophagogastroduodenoscopy (EGD) History of colonoscopy (~09/05/21) Hx of cholecystectomy Hx of tonsillectomy Hx of hysterectomy Family History Father CVD (cardiovascular disease) Diabetes Mother Diabetes Sister No problems noted. Other Substance use disorder Social History (Reviewed 12/18/24 @ 09:28 by DALI Dailey Household Members: Family and None Housing: House Are you a primary acute care occupational therapist to a significant other at home: No Do you presently have visiting nurse or other home services: No Alcohol intake: former Comment: WITHIN LAST MONTH Patient Tobacco Use Status: Never used Tobacco e-Cigarette/Vaping Use: Never Used Second Hand Smoke Exposure: No Advance Directives Date on File: 08/04/22 service: No Current occupational status: retired Cognitive needs: Yes (walker) Hearing needs: Yes (hearing aide) Vision needs: Yes (glasses) Questionnaire PHQ-9 Over the last 2 weeks, how often have you been bothered by any of the following problems? 1. Little interest or pleasure in doing things: not at all 2. Feeling down, depressed, or hopeless: not at all 3. Trouble falling or staying asleep, or sleeping too much: several days 4. Feeling tired or having little energy: more than half the days 5. Poor appetite or overeating: not at all 6. Feeling bad about yourself - or that you are a failure or have let yourself or your family down: not at all 7. Trouble concentrating on things, such as reading the newspaper or watching television: not at all 8. Moving or speaking so slowly that other people could have noticed. Or the opposite - being so fidgety or restless that you have been moving around a lot more than usual: several days 9. Thoughts that you would be better off or of hurting yourself in some way: not at all Total score: 4 Depression Screening Interpretation: Positive Depression Screening Done: Yes Source: Developed by Drs. Jonathan Sandoval, Dodie Tejada, Alberto Elizondo and colleagues, with an educational mark from [employer]. Thrive Questionnaire Date Thrive assessed: 12/18/24 I am a: Patient What is your living situation today?: I choose not to answer this question Within the past 12 months, did the food you bought not last and you didn't have the money to get more?: I choose not to answer this question Within the past 12 months, did you worry whether your food would run out before you got money to buy more?: I choose not to answer this question Do you have trouble paying for medicines?: I choose not to answer this question Do you have trouble getting transportation to medical appointments?: I choose not to answer this question Do you have trouble paying your heating and electricity bill?: I choose not to answer this question Do you have trouble taking care of your child, family member or friend?: I choose not to answer this question Do you have trouble with day-to-day activities such as bathing, preparing meals, shopping, managing finances, etc.?: I choose not to answer this question Are you currently unemployed and looking for a job?: I choose not to answer this question Are you interested in more education?: I choose not to answer this question Please select the resources that you would like help with: None Currently or been in a relationship where the following occur: I choose not to answer THRIVE Score: 0 AUDIT C Alcohol Use Questionnaire (AUDIT-C) 1. How often do you have a drink containing alcohol?: Never Total Score: 0 BRITTNEY-7 AMB Questionnaire BRITTNEY-7 Date BRITTNEY - 7 assessed: 12/18/24 Feeling nervous, anxious, or on edge: 0 = Not at all Not being able to stop or control worryin = Not at all Source: Developed by Drs. Jonathan Sandoval, Dodie Tejada, Alberto Elizondo and colleagues, with an educational mark from [employer]. Physical exam (Primary Care) Vital Signs: Last Vital Signs Temp 97.3 F 12/18/24 09:29 Pulse 61 12/18/24 09:29 BP 132/82 12/18/24 09:29 Pulse Ox 99 12/18/24 09:29 Oxygen Delivery Method Room Air 12/18/24 09:29 BMI result Body Mass Index 29.3 Tobacco/Smoking Status: Tobacco use Status Tobacco use date assessed 12/18/24 12/18/24 09:41 Patient Tobacco Use Status Never used Tobacco 12/18/24 09:41 e-Cigarette/Vaping Use Never Used 12/18/24 09:41 PHQ-9: PHQ-9 Score PHQ-9: Total score 4 12/18/24 09:41 Depression Screening Interpretation: Positive Thrive Assessment: Date of Thrive Assessment Date Thrive assessed 12/18/24 12/18/24 09:41 Currently or been in a relationship where the following occur: I choose not to answer Results AMB Hemoglobin A1c AMB Hemoglobin A1c 4.9 % Last Edit by GIANA Dailey on 12/18/24 09:45 Results Reviewed Results Reviewed: Laboratory Last Values Hgb A1c (Clinic) 4.9 % (4.0-6.0) 12/18/24 09:26 Coding Level of Care Code Est Pt Level 4 (74037) Complex EM visit Add On G2211 Diagnoses Type 2 diabetes 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 complication, with long-term current use of insulin E11.9; Z79.4 Diabetes mellitus certified indoor environmentalist insulin use: with certified indoor environmentalist use Assessment & Plan Assessment & Plan (1) Type 2 diabetes 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s: Code(s): E11.9 - Type 2 diabetes 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s Category: Medical Qualifiers: Diabetes mellitus certified indoor environmentalist insulin use: with intermediate use Qualified Code(s): E11.9 - Type 2 diabetes 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s; Z79.4 - intermediate (current) use of insulin Plan: Condition is stable. Continue current medications Plan History of Present Illness - The patient is a 73-year-old female presenting with follow-up for anemia and other health concerns. - Anemia: The patient had a blood transfusion for anemia, receiving two units of blood. - Sleep disturbance: The patient reports waking up at 4:00 or 5:00 AM but does not feel tired upon waking. - Leg pain: The patient experiences pain in the leg, particularly when walking, possibly related to vascular issues. - Hearing impairment: The patient has hearing aids but reports difficulty using them and plans to follow up with the operation specialist. - Precancerous skin lesion: The patient had a precancerous skin lesion treated with cryotherapy a year ago, with no current signs of malignancy. Social History Review of Systems - General: Denies difficulty breathing. - Sleep: Reports waking up early but denies feeling tired. - Musculoskeletal: Reports leg pain when walking. - Dermatological: Reports previous treatment for precancerous skin lesion. Physical Exam General: Cooperative and healthy appearing Nutritional Appearance: Well nourished Orientation/consciousness: Patient oriented x3 Limitations: No limitations Head: Normal to inspection General: Appearance normal, both eyes and all related structures Neck: Normal visual inspection Chest: Normal palpation of entire chest wall Respiratory: No difficulty breathing reported. ormal respiratory effort Neurology: Patient oriented x3. Reports issues with bottom leg and foot pain when walking. Results Plan 1. Anemia - Plan to follow up with the healthcare provider to determine if further transfusions are needed. 2. Sleep Disturbance - No specific intervention discussed during the visit. 3. Leg Pain - Plan to contact the vascular specialist for further evaluation and possible intervention. 4. Hearing Impairment - Plan to follow up with the operation specialist for hearing aid adjustment and management. 5. Precancerous Skin Lesion - Awaiting follow-up appointment with the electronic publications specialist to monitor the lesion. Discussion Notes During the visit, we discussed the patient's recent blood transfusion for anemia and the need for follow-up to assess if further transfusions are necessary. We also talked about the patient's sleep pattern, leg pain, and the importance of consulting with a vascular specialist. The patient was advised to follow up with the operation specialist for hearing aid issues and to await the electronic publications specialist's call for monitoring the precancerous skin lesion. Patient Instructions - Follow up with your healthcare provider to discuss anemia management. - Contact the vascular specialist for leg pain evaluation. - Schedule an appointment with the operation specialist for hearing aid adjustment. - Await the electronic publications specialist's call for your skin lesion follow-up. Orders: Orders AMB Hemoglobin A1c Today E11.9 - Type 2 diabetes 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s, Z79.4 - intermediate (current) use of insulin
[2024-12-18 09:29] VITALS: BP 132/82; PULSE 61; TEMP 36.3; O2SAT 99; BMI 29.3
--- OUTSIDE RECORDS SUMMARY | 2024-12-18 09:44 | XMS_ITS | Data Portability ---
Author Organization [facility], [facility] Address [address] [place] [address] Assessment Encounter Date Assessment Date Assessment LastModified by Organization Details LastModified Time 04/30/2018 04/30/2018 Blood pressure i s at goal with which is below 140/90 for a diabetic. She is looking for alternative activities in her care home. Her A1c of 5.5% shows excellent diabetes control (goal below 7.5-8%). She will continue with [place] for excellence in diabetes education for that. [...] to what she tells us from her sleeve wheel maker, and she will try and get us those records. He continues with electrolysis engineer and on prednisone. She will follow-up in [...] bp more regularly 3) Patient regularly sees sleeve wheel maker who will check A1C and adjust rx [...] with new provider (will be changing to [facility] for convenience) 9) RA stable; may [...] TSH, serum or plasma 2017 018 [facility], [address] [place] [address], [id number], 8 16:26:11 CBC 2017 018 [facility], [address] [place] [address], [id number], 8 14:43:05 Referral None recorded. Procedures None recorded. Surgeries None recorded. Imaging None recorded. Medication Orders cefpodoxim e 200 mg tablet 2018 [id number], [address] [place], [place], [id number], 9 12:53:28 atorvastat in 20 mg tablet 2018 019 [facility] #[id number], [address] [place], [place], [id number], 9 16:34:01 lidocaine 5 % topical patch 2018 019 INTERFACE [facility] #[id number], [address] [place] [address], [place], [id number], 9 13:32:45 omeprazole 20 mg capsule,de layed release 2018 019 [facility] #58396, [address] [place], [place], [id number], 9 16:34:01 lisinopril 10 mg-hydroch lorothiazi de 12.5 mg tablet 2018 019 [facility] #29378, [address] [place] [address], [place], [id number], 9 16:34:01 cefpodoxim e 200 mg tablet 2018 019 [facility] #58581, [address] [place] [address], [place], [id number], 9 14:47:44 Patient TargetsNo targets recorded. Patient Instructions Encounter Date Encounter Id Patient Instructions Last Modified By Organization Details Last Modified Time 04/30/2018 [id number] high cholesterol lifestyle changes nikki Not available 04/30/2018 11:19:19 high blood pressure: care instructions nikki Not available 04/30/2018 11:19:19 learning about high blood pressure nikki Not available 04/30/2018 11:19:19 asthma handout / teaching nikki Not available 04/30/2018 11:19:19 asthma action plan nikki Not availab le 04/30/2018 11:19:[address] an ages 0-11 yrs citizen of [place] nikki Not available 04/30/2018 11:19:19 CCM: The provide r and patient discussed the Chronic Care Management program, including the services provided, and any fees associated with them. michele Not available 04/30/2018 11:32:47 08/29/2018 [id number] My Health To Do List Specific Analgesia [...] medication. spise Not available 08/29/2018 11:18:25 12/31/2018 [id number] After a discussi on of treatment options, [...] Patie nts with Diabe sarath Not Available [address], [address], 04/26/2018 15:36:01 04/26/20 18 04/26/2018 HbA1c (hemo globi n A1c), blood estimated average glucose 111.2 mg/dL Not Available [address], [address], 04/26/2018 15:36:01 04/26/20 18 04/26/2018 micro album in, urine microalbumin 39.3 mg/L 1.3-20 .0 high Not Available [address], [address], 04/26/2018 15:37:51 04/26/20 18 04/26/2018 micro album in, urine creatinine urine 193.6 mg/dL 30.0-1 25.0 high Not Available [address], [address], 04/26/2018 15:37:51 04/26/20 18 04/26/2018 micro album in, urine microalb/cre at ratio 20.3 mg/g_ creat 0.0-29 .0 Not Available [address], [address], 04/26/2018 15:37:51 04/26/20 18 04/26/2018 BMP, serum or plasm a glucose 74 mg/dL 70-100 Not Available [address], [address], 04/26/2018 16:07:42 04/26/20 18 04/26/2018 BMP, serum or plasm a BUN 16 mg/dL 7-18 Not Available [address], [address], 04/26/2018 16:07:42 04/26/20 18 04/26/2018 BMP, serum or plasm a creatinine 1.1 mg/dL 0.8-1. 3 Not Available [address], [address], 04/26/2018 16:07:42 04/26/20 18 04/26/2018 BMP, serum or plasm a B/C 14.5 ratio Not Available [address], [address], 04/26/2018 16:07:42 04/26/20 18 04/26/2018 BMP, serum or plasm a GFR -non 55.5 mL/mi n Recom zhane d GFR by the [facility] ation >60 mL/mi n/1.7 3m2 - Patricia l <60 mL/mi n/1.7 3m2 - Chron ic Kidne y Disea se <15 mL/mi n/1.7 3m2 - Kidne y Failu re Not Available [address], [address], 04/26/2018 16:07:42 04/26/20 18 04/26/2018 BMP, serum or plasm a GFR - if 63.8 mL/mi n For Afric an Ameri can patie nts: Resul ts Multi plied by 1.21 Not Available [address], [address], 04/26/2018 16:07:42 04/26/20 18 04/26/2018 BMP, serum or plasm a sodium 143 mmol/ L 136-14 5 Not Available [address], [address], 04/26/2018 16:07:42 04/26/20 18 04/26/2018 BMP, serum or plasm a potassium 4.6 mmol/ L 3.5-5. 1 Not Available [address], [address], 04/26/2018 16:07:42 04/26/20 18 04/26/2018 BMP, serum or plasm a chloride 105 mmol/ L 96-107 Not Available [address], [address], 04/26/2018 16:07:42 04/26/20 18 04/26/2018 BMP, serum or plasm a anion gap 11.1 5.0-15 .0 Not Available [address], [address], 04/26/2018 16:07:42 04/26/20 18 04/26/2018 BMP, serum or plasm a CO2 27 mmol/ L 21-32 Not Available [address], [address], 04/26/2018 16:07:42 04/26/20 18 04/26/2018 BMP, serum or plasm a calcium 9.2 mg/dL 8.5-10 .3 Not Available [address], [address], 04/26/2018 16:07:42 04/26/20 18 04/26/2018 lipid panel , serum cholesterol 106 mg/dL <200 mg/dl Avelino able 200-2 39 mg/dl Borde rline High >240 mg/dl High Not Available [address], [address], 04/26/2018 16:07:44 04/26/20 18 04/26/2018 lipid panel , serum triglyceride s 184 mg/dL <150 mg/dL Patricia l 150-1 99 mg/dL Borde rline High 200-4 99 mg/dL High >500 mg/dL Very High Not Available [address], [address], 04/26/2018 16:07:44 04/26/20 18 04/26/2018 lipid panel , serum direct HDL 39 mg/dL <40 mg/dl - Major Risk for CHD >60 mg/dl - Negat jeannette Risk for CHD Not Available [address], [address], 04/26/2018 16:07:44 04/26/20 18 04/26/2018 LDL, calcu lated , serum (OBS) LDL - calculated 30.2 RISK CATEG ORY LDL GOAL _ CHD or CHD Risk Equiv alent s <100 mg/dl (10-y ear risk >20%) 2+ Risk Facto rs <130 mg/dl (10-y ear risk <= 20%) 0-1 Risk Facto r <160 mg/dl [facility] with 0-1 risk facto r have a 10 year risk <10%, thus 10 year risk asses ment in peopl e with 0-1 risk facto r is not necpierce olivia. Not Available [address], [address], 04/26/2018 16:07:45 04/26/20 18 04/26/2018 AST/S GOT (aspa rtate amino trans feras e), serum or plasm a AST 18 U/L 15-37 Not Available [address], [address], 04/26/2018 16:25:23 04/26/20 18 04/26/2018 ALT (karen ine amino trans feras e), serum or plasm a ALT 26 U/L 30-65 low Not Available [address], [address], 04/26/2018 16:25:24 04/30/20 18 04/30/2018 CBC WBC 8.9 K/ L 4.0-10 .0 Not Available [address], [address], 04/30/2018 14:43:04 04/30/20 18 04/30/2018 CBC RBC 4.13 M/ L 3.93-5 .22 Not Available [address], [address], 04/30/2018 14:43:04 04/30/20 18 04/30/2018 CBC HGB 11.9 g/dL 11.2-1 5.7 Not Available [address], [address], 04/30/2018 14:43:04 04/30/20 18 04/30/2018 CBC HCT 35.9 % 34.1-4 4.9 Not Available [address], [address], 04/30/2018 14:43:04 04/30/20 18 04/30/2018 CBC MCV 86.9 L 79.4-9 4.8 Not Available [address], [address], 04/30/2018 14:43:04 04/30/20 18 04/30/2018 CBC MCH 28.8 pg 25.6-3 2.2 Not Available [address], [address], 04/30/2018 14:43:04 04/30/20 18 04/30/2018 CBC MCHC 33.1 g/dL 32.2-3 5.5 Not Available [address], [address], 04/30/2018 14:43:04 04/30/20 18 04/30/2018 CBC plt 290.0 K/ L 182.0- 369.0 Not Available [address], [address], 04/30/2018 14:43:04 04/30/20 18 04/30/2018 CBC MPV 11.7 9.4-12 .3 Not Available [address], [address], 04/30/2018 14:43:04 04/30/20 18 04/30/2018 CBC neut% 78.8 % 34.0-7 1.1 high Not Available [address], [address], 04/30/2018 14:43:04 04/30/20 18 04/30/2018 CBC neut# 7.0 1.6-6. 1 high Not Available [address], [address], 04/30/2018 14:43:04 04/30/20 18 04/30/2018 CBC lymph % 14.1 % 19.3-5 1.7 low Not Available [address], [address], 04/30/2018 14:43:04 04/30/20 18 04/30/2018 CBC lymph # 1.3 K/ L 1.2-3. 7 Not Available [address], [address], 04/30/2018 14:43:04 04/30/20 18 04/30/2018 CBC mono% 5.2 % 4.7-12 .5 Not Available [address], [address], 04/30/2018 14:43:04 04/30/20 18 04/30/2018 CBC mono# 0.5 0.2-0. 6 Not Available [address], [address], 04/30/2018 14:43:04 04/30/20 18 04/30/2018 CBC eo% 1.4 % 0.7-5. 8 Not Available [address], [address], 04/30/2018 14:43:04 04/30/20 18 04/30/2018 CBC eo# 0.1 0.0-0. 4 Not Available [address], [address], 04/30/2018 14:43:04 04/30/20 18 04/30/2018 CBC baso% 0.5 % 0.1-1. 2 Not Available [address], [address], 04/30/2018 14:43:04 04/30/20 18 04/30/2018 CBC baso# 0.0 0.0-0. 1 Not Available [address], [address], 04/30/2018 14:43:04 04/30/20 18 04/30/2018 CBC RDW-CV 14.0 % 11.7-1 4.4 Not Available [address], [address], 04/30/2018 14:43:04 04/30/20 18 04/30/2018 TSH, serum or plasm a TSH 2.29 uIU/m L 0.50-6 .00 The Ameri can Colle ge of Endoc rinol ogy and Ameri can Thyro id Assoc iatio n recom mend goal TSH value s betwe en 0.4-4 .0 mIU/m L. Not Available [facility] [address], [place], [address], 04/30/2018 16:26:11 06/12/20 18 06/12/2018 CBC w/ auto diff WBC 13.71 K/uL 3.40-1 1.20 high Not Available [facility] (Out[facility] [address] [place] [address], [address], 06/12/2018 14:19:14 06/12/20 18 06/12/2018 CBC w/ auto diff RBC 4.19 M/uL 3.80-4 .80 Not Available [facility]) [address] [place] [address], [address], 06/12/2018 14:19:14 06/12/20 18 06/12/2018 CBC w/ auto diff HGB 12.0 g/dL 12.0-1 5.0 Not Available [facility] ([facility]) [address] [place] [address], [address], 06/12/2018 14:19:14 06/12/20 18 06/12/2018 CBC w/ auto diff HCT 35.1 % 36.0-4 6.0 low Not Available [facility]) [address] [place] [address], [address], 06/12/2018 14:19:14 06/12/20 18 06/12/2018 CBC w/ auto diff plt 285 K/uL 130-40 0 Not Available [facility]) [address] [place] [address], [address], 06/12/2018 14:19:14 06/12/20 18 06/12/2018 CBC w/ auto diff MCV 83.8 fL 79.0-9 8.0 Not Available [facility]) [address] [place] [address], [address], 06/12/2018 14:19:14 06/12/20 18 06/12/2018 CBC w/ auto diff MCH 28.6 pg 27.0-3 4.8 Not Available [facility] ([facility]) [address] [place], [address], 06/12/2018 14:19:14 06/12/20 18 06/12/2018 CBC w/ auto diff MCHC 34.2 g/dL 31.5-3 6.0 Not Available [facility] ([facility]) [address] [place], [address], 06/12/2018 14:19:14 06/12/20 18 06/12/2018 CBC w/ auto diff RDW 13.2 % 10.8-1 4.6 Not Available [facility]) [address] [place], [address], 06/12/2018 14:19:14 06/12/20 18 06/12/2018 CBC w/ auto diff MPV 11.6 fL 9.4-12 .4 Not Available [facility] [address] [place], [address], 06/12/2018 14:19:14 06/12/20 18 06/12/2018 CBC w/ auto diff NRBC 0.00 /100_ WBCs 0.00 Not Available [facility] [address] [place], [address], 06/12/2018 14:19:14 06/12/20 18 06/12/2018 CBC w/ auto diff absolute NRBC 0.00 K/uL 0.00 Not Available [facility] [address] [place], [address], 06/12/2018 14:19:14 06/12/20 18 06/12/2018 CBC w/ auto diff diff method Auto Not Available [facility] [address] [place], [address], 06/12/2018 14:19:14 06/12/20 18 06/12/2018 CBC w/ auto diff neuts 84.8 % 45.30- 77.70 high Not Available [facility] [address] [place], [address], 06/12/2018 14:19:14 06/12/20 18 06/12/2018 CBC w/ auto diff lymphs 9.0 % 12.30- 39.70 low Not Available [facility]) [address] [place] [address], [address], 06/12/2018 14:19:14 06/12/20 18 06/12/2018 CBC w/ auto diff monos 4.2 % 4.10-1 2.80 Not Available [facility]) [address] [place] [address], [address], 06/12/2018 14:19:14 06/12/20 18 06/12/2018 CBC w/ auto diff eos 0.9 % 0-7.2 Not Available [facility]) [address] [place] [address], [address], 06/12/2018 14:19:14 06/12/20 18 06/12/2018 CBC w/ auto diff basos 0.7 % 0-2.80 Not Available [facility]) [address] [place] [address], [address], 06/12/2018 14:19:14 06/12/20 18 06/12/2018 CBC w/ auto diff granulocytes , immature (%) 0.4 % 0.0-0. 9 Not Available [facility] [address] [place], [address], 06/12/2018 14:19:14 06/12/20 18 06/12/2018 CBC w/ auto diff absolute neuts 11.63 K/uL 1.40-7 .70 high Not Available [facility]) [address] [place] [address], [address], 06/12/2018 14:19:14 06/12/20 18 06/12/2018 CBC w/ auto diff absolute lymphs 1.24 K/uL 0.60-3 .20 Not Available [facility] [address] [place], [address], 06/12/2018 14:19:14 06/12/20 18 06/12/2018 CBC w/ auto diff absolute monos 0.57 K/uL 0.11-0 .59 Not Available [facility] [address] [place], [address], 06/12/2018 14:19:14 06/12/20 18 06/12/2018 CBC w/ auto diff absolute eos 0.13 K/uL 0.01-0 .50 Not Available [facility] ([facility] [address] [place], [address], 06/12/2018 14:19:14 06/12/20 18 06/12/2018 CBC w/ auto diff absolute basos 0.09 K/uL 0.00-0 .08 high Not Available [facility] ([facility]) [address] [place], [address], 06/12/2018 14:19:14 06/12/20 18 06/12/2018 CBC w/ auto diff granulocytes , immature 0.05 K/uL 0.00-0 .05 Not Available [facility] [address] [place] [address], [address], 06/12/2018 14:19:14 06/12/20 18 06/12/2018 CMP, serum or plasm a sodium 139 mmol/ L 133-14 6 Not Available [facility] [address] [place] [address], [address], 06/12/2018 15:13:28 06/12/20 18 06/12/2018 CMP, serum or plasm a potassium 4.6 mmol/ L 3.3-5. 1 Not Available [facility] ([facility] [address] [place], [address], 06/12/2018 15:13:28 06/12/20 18 06/12/2018 CMP, serum or plasm a chloride 99 mmol/ L 96-108 Not Available [facility] [address] [place], [address], 06/12/2018 15:13:28 06/12/20 18 06/12/2018 CMP, serum or plasm a CO2 28 mmol/ L 21-35 Not Available [facility] [address] [place], [address], 06/12/2018 15:13:28 06/12/20 18 06/12/2018 CMP, serum or plasm a BUN 22 mg/dL 6-19 high Not Available [facility] ([facility] [address] [place], [address], 06/12/2018 15:13:28 06/12/20 18 06/12/2018 CMP, serum or plasm a creatinine 0.90 mg/dL 0.5-1. 5 Not Available [facility] [address] [place], [address], 06/12/2018 15:13:28 06/12/20 18 06/12/2018 CMP, serum or plasm a glucose 104 mg/dL 70-99 high Not Available [facility] [address] [place], [address], 06/12/2018 15:13:28 06/12/20 18 06/12/2018 CMP, serum or plasm a albumin 4.4 g/dL 3.9-4. 8 Not Available [facility] [address] [place], [address], 06/12/2018 15:13:28 06/12/20 18 06/12/2018 CMP, serum or plasm a total protein 6.9 g/dL 6.5-8. 0 Not Available [facility] [address] [place], [address], 06/12/2018 15:13:28 06/12/20 18 06/12/2018 CMP, serum or plasm a calcium 9.3 mg/dL 8.4-10 .3 Not Available [facility] [address] [place], [address], 06/12/2018 15:13:28 06/12/20 18 06/12/2018 CMP, serum or plasm a alkaline phosphatase 82 U/L 39-117 Not Available [facility]) [address] [place] [address], [address], 06/12/2018 15:13:28 06/12/20 18 06/12/2018 CMP, serum or plasm a total bilirubin 0.4 mg/dL 0.0-1. 2 Not Available [facility] [address] [place] [address], [address], 06/12/2018 15:13:28 06/12/20 18 06/12/2018 CMP, serum or plasm a AST 16 U/L 0-37 Not Available [facility] [address] [place], [address], 06/12/2018 15:13:28 06/12/20 18 06/12/2018 CMP, serum or plasm a ALT 18 U/L 0-40 Not Available [facility] [address] [place], [address], 06/12/2018 15:13:28 06/12/20 18 06/12/2018 CMP, serum or plasm a globulin 2.5 g/dL 1-4.8 Not Available [facility] [address] [place], [address], 06/12/2018 15:13:28 06/12/20 18 06/12/2018 CMP, serum or plasm a eGFR 66 mL/mi n/1.7 3m2 >59 If patie nt is black , multi ply resul t by 1.159 . Estim ated glome rular filtr ation rate calcu lated using the CKD-E PI equat ion. Not Available [facility] [address] [place] [address], [address], 06/12/2018 15:13:28 06/12/20 18 06/12/2018 CMP, serum or plasm a anion gap 17 mmol/ L 10-20 Not Available [facility] [address] [place], [address], 06/12/2018 15:13:28 06/12/20 18 06/12/2018 C-andra ctive prote in, quant itati ve, serum or plasm a C reactive protein 3.3 mg/L 0.0-4. 0 Not Available [facility] [address] [place] [address], [address], 06/12/2018 15:13:30 06/12/20 18 06/13/2018 HBsAg (hepa titis B surfa ce Ag), serum HBV surface antigen Negati ve negati ve Not Available [facility]) [address] [place] [address], [address], 06/13/2018 10:03:22 06/12/20 18 06/13/2018 hepat itis B virus core Ab, quali tativ e, serum hep B core Ab, tot Negati ve negati ve Not Available [facility] ([facility]) [address] [place], [address], 06/13/2018 10:03:24 06/12/20 18 06/14/2018 tb (M [...] a level <0.35 IU/mL . Not Available [facility] [address] [place] [address], [address], 06/14/2018 19:02:21 06/12/20 18 06/14/2018 tb (M tuber culos is), ifn-g deonte sai , blood TB1 Ag minus nil 0.11 IU/mL Not Available [facility]) [address] [place] [address], [address], 06/14/2018 19:02:21 06/12/20 18 06/14/2018 tb (M tuber culos is), ifn-g deonte sai , blood TB2 Ag minus nil 0.00 IU/mL Not Available [facility]) [address] [place] [address], [address], 06/14/2018 19:02:21 06/12/20 18 06/14/2018 tb (M tuber culos is), ifn-g deonte sai , blood mitogen minus nil 2.75 IU/mL Not Available [facility]) [address] [place] [address], [address], 06/14/2018 19:02:21 06/12/20 18 06/14/2018 tb (M tuber culos is), ifn-g deonte sai , blood nil result 0.01 IU/mL Not Available [facility]) [address] [place] [address], [address], 06/14/2018 19:02:21 10/18/19 19 10/17/2018 CBC w/ auto diff WBC 10.03 K/uL 3.40-1 1.20 Not Available [facility] ([facility] [address] [place], [address], 10/17/2018 15:41:19 10/18/19 19 10/17/2018 CBC w/ auto diff RBC 4.02 M/uL 3.80-4 .80 Not Available [facility]) [address] [place] [address], [address], 10/17/2018 15:41:19 10/18/19 19 10/17/2018 CBC w/ auto diff HGB 11.9 g/dL 12.0-1 5.0 low Not Available [facility]) [address] [place] [address], [address], 10/17/2018 15:41:19 10/18/19 19 10/17/2018 CBC w/ auto diff HCT 35.2 % 36.0-4 6.0 low Not Available [facility]) [address] [place] [address], [address], 10/17/2018 15:41:19 10/18/19 19 10/17/2018 CBC w/ auto diff plt 236 K/uL 130-40 0 Not Available [facility] [address] [place] [address], [address], 10/17/2018 15:41:19 10/18/19 19 10/17/2018 CBC w/ auto diff MCV 87.6 fL 79.0-9 8.0 Not Available [facility]) [address] [place] [address], [address], 10/17/2018 15:41:19 10/18/19 19 10/17/2018 CBC w/ auto diff MCH 29.6 pg 27.0-3 4.8 Not Available [facility] ([facility] [address] [place], [address], 10/17/2018 15:41:19 10/18/19 19 10/17/2018 CBC w/ auto diff MCHC 33.8 g/dL 31.5-3 6.0 Not Available [facility] ([facility]) [address] [place], [address], 10/17/2018 15:41:19 10/18/19 19 10/17/2018 CBC w/ auto diff RDW 12.9 % 10.8-1 4.6 Not Available [facility] ([facility] [address] [place], [address], 10/17/2018 15:41:19 10/18/19 19 10/17/2018 CBC w/ auto diff MPV 11.0 fL 9.4-12 .4 Not Available [facility] ([facility]) [address] [place], [address], 10/17/2018 15:41:19 10/18/19 19 10/17/2018 CBC w/ auto diff NRBC 0.00 /100_ WBCs 0.00 Not Available [facility] ([facility] [address] [place], [address], 10/17/2018 15:41:19 10/18/19 19 10/17/2018 CBC w/ auto diff absolute NRBC 0.00 K/uL 0.00 Not Available [facility] ([facility] [address] [place], [address], 10/17/2018 15:41:19 10/18/19 19 10/17/2018 CBC w/ auto diff diff method Auto Not Available [facility] [address] [place], [address], 10/17/2018 15:41:19 10/18/19 19 10/17/2018 CBC w/ auto diff neuts 70.1 % 45.30- 77.70 Not Available [facility] [address] [place], [address], 10/17/2018 15:41:19 10/18/19 19 10/17/2018 CBC w/ auto diff lymphs 18.2 % 12.30- 39.70 Not Available [facility] [address] [place] [address], [address], 10/17/2018 15:41:19 10/18/19 19 10/17/2018 CBC w/ auto diff monos 7.4 % 4.10-1 2.80 Not Available [facility] [address] [place] [address], [address], 10/17/2018 15:41:19 10/18/19 19 10/17/2018 CBC w/ auto diff eos 2.8 % 0-7.2 Not Available [facility] [address] [place] [address], [address], 10/17/2018 15:41:19 10/18/19 19 10/17/2018 CBC w/ auto diff basos 1.1 % 0-2.80 Not Available [facility]) [address] [place] [address], [address], 10/17/2018 15:41:19 10/18/1910/17/2018 CBC w/ auto diff granulocytes , immature (%) 0.4 % 0.0-0. 9 Not Available [facility] [address] [place] [address], [address], 10/17/2018 15:41:19 10/18/1910/17/2018 CBC w/ auto diff absolute neuts 7.03 K/uL 1.40-7 .70 Not Available [facility]) [address] [place] [address], [address], 10/17/2018 15:41:19 10/18/19 19 10/17/2018 CBC w/ auto diff absolute lymphs 1.83 K/uL 0.60-3 .20 Not Available [facility] ([facility] [address] [place], [address], 10/17/2018 15:41:19 10/18/19 19 10/17/2018 CBC w/ auto diff absolute monos 0.74 K/uL 0.11-0 .59 high Not Available [facility] ([facility]) [address] [place], [address], 10/17/2018 15:41:19 10/18/19 19 10/17/2018 CBC w/ auto diff absolute eos 0.28 K/uL 0.01-0 .50 Not Available [facility] ([facility]) [address] [place], [address], 10/17/2018 15:41:19 10/18/19 19 10/17/2018 CBC w/ auto diff absolute basos 0.11 K/uL 0.00-0 .08 high Not Available [facility] (Outpatient) [address] [place], [address], 10/17/2018 15:41:19 10/18/19 19 10/17/2018 CBC w/ auto diff granulocytes , immature 0.04 K/uL 0.00-0 .05 Not Available [facility] (Outpatient) [address] [place], [address], 10/17/2018 15:41:19 10/18/19 19 10/17/2018 eryth rocyt e sedim entat ion rate by prema sanchezo d ESR 5 mm/h 0-30 Not Available [facility] (Outpatient) [address] [place], [address], 10/17/2018 16:22:09 10/18/19 19 10/17/2018 CMP, serum or plasm a sodium 143 mmol/ L 133-14 6 Not Available [facility] (Outpatient) [address] [place], [address], 10/17/2018 16:48:20 10/18/19 19 10/17/2018 CMP, serum or plasm a potassium 4.3 mmol/ L 3.3-5. 1 Not Available [facility] (Outpatient[facility] [address] [place], [address], 10/17/2018 16:48:20 10/18/19 19 10/17/2018 CMP, serum or plasm a chloride 104 mmol/ L 96-108 Not Available [facility] (Outpatient) [address] [place], [address], 10/17/2018 16:48:20 10/18/19 19 10/17/2018 CMP, serum or plasm a CO2 26 mmol/ L 21-35 Not Available [facility] (Outpatient) [address] [place], [address], 10/17/2018 16:48:20 10/18/19 19 10/17/2018 CMP, serum or plasm a BUN 28 mg/dL 6-19 high Not Available [facility] (Outpatient) [address] [place], [address], 10/17/2018 16:48:20 10/18/19 19 10/17/2018 CMP, serum or plasm a creatinine 1.00 mg/dL 0.5-1. 5 Not Available [facility] (Outpatient) [address] [place], [address], 10/17/2018 16:48:20 10/18/19 19 10/17/2018 CMP, serum or plasm a glucose 127 mg/dL 70-99 high Not Available [facility] (Outpatient) [address] [place], [address], 10/17/2018 16:48:20 10/18/19 19 10/17/2018 CMP, serum or plasm a albumin 4.3 g/dL 3.9-4. 8 Not Available [facility] (Outpatient) [address] [place], [address], 10/17/2018 16:48:20 10/18/19 19 10/17/2018 CMP, serum or plasm a total protein 6.9 g/dL 6.5-8. 0 Not Available [facility] (Outpatient) [address] [place], [address], 10/17/2018 16:48:20 10/18/19 19 10/17/2018 CMP, serum or plasm a calcium 9.5 mg/dL 8.4-10 .3 Not Available [facility] (Outpatient) [address] [place], [address], 10/17/2018 16:48:20 10/18/19 19 10/17/2018 CMP, serum or plasm a alkaline phosphatase 74 U/L 39-117 Not Available [facility] (Outpatient) [address] [place], [address], 10/17/2018 16:48:20 10/18/19 19 10/17/2018 CMP, serum or plasm a total bilirubin 0.3 mg/dL 0.0-1. 2 Not Available [facility] (Outpatient[facility] [address] [place], [address], 10/17/2018 16:48:20 10/18/19 19 10/17/2018 CMP, serum or plasm a AST 19 U/L 0-37 Not Available [facility]Out[facility] [address] [place] [address], [address], 10/17/2018 16:48:20 10/18/19 19 10/17/2018 CMP, serum or plasm a ALT 17 U/L 0-40 Not Available [facility] (Outpatient[facility] [address] [place], [address], 10/17/2018 16:48:20 10/18/19 19 10/17/2018 CMP, serum or plasm a globulin 2.6 g/dL 1-4.8 Not Available [facility] (Outpatient) [address] [place], [address], 10/17/2018 16:48:20 10/18/19 19 10/17/2018 CMP, serum or plasm a eGFR 58 mL/mi n/1.7 3m2 >59 low If patie nt is black , multi ply resul t by 1.159 . Estim ated glome rular filtr ation rate calcu lated using the CKD-E PI equat ion. Not Available [facility] (Outpatient) [address] [place], [address], 10/17/2018 16:48:20 10/18/19 19 10/17/2018 CMP, serum or plasm a anion gap 17 mmol/ L 10-20 Not Available [facility] (Out[facility]) [address] [place] [address], [address], 10/17/2018 16:48:20 10/18/19 19 10/17/2018 C-andra ctive prote in, quant itati ve, serum or plasm a C reactive protein 6.2 mg/L 0.0-4. 0 high Not Available [facility] (Out[facility]) [address] [place] [address], [address], 10/17/2018 16:48:21 01/17/20 19 01/16/2019 CBC w/ auto diff WBC 10.98 K/uL 3.40-1 1.20 Not Available [facility]Out[facility] [address] [place] [address], [address], 01/16/2019 16:23:22 01/17/20 19 01/16/2019 CBC w/ auto diff RBC 4.04 M/uL 3.80-4 .80 Not Available [facility]Out[facility]) [address] [place] [address], [address], 01/16/2019 16:23:22 01/17/20 19 01/16/2019 CBC w/ auto diff HGB 11.9 g/dL 12.0-1 5.0 low Not Available [facility] (Out[facility] [address] [place], [address], 01/16/2019 16:23:22 01/17/20 19 01/16/2019 CBC w/ auto diff HCT 35.3 % 36.0-4 6.0 low Not Available [facility] (Outpatient) [address] [place], [address], 01/16/2019 16:23:22 01/17/20 19 01/16/2019 CBC w/ auto diff plt 274 K/uL 130-40 0 Not Available [facility] (Outpatient[facility] [address] [place], [address], 01/16/2019 16:23:22 01/17/20 19 01/16/2019 CBC w/ auto diff MCV 87.4 fL 79.0-9 8.0 Not Available [facility] (Out[facility]) [address] [place], [address], 01/16/2019 16:23:22 01/17/20 19 01/16/2019 CBC w/ auto diff MCH 29.5 pg 27.0-3 4.8 Not Available [facility] (Out[facility] [address] [place], [address], 01/16/2019 16:23:22 01/17/20 19 01/16/2019 CBC w/ auto diff MCHC 33.7 g/dL 31.5-3 6.0 Not Available [facility] (Outpatient[facility] [address] [place], [address], 01/16/2019 16:23:22 01/17/20 19 01/16/2019 CBC w/ auto diff RDW 13.3 % 10.8-1 4.6 Not Available [facility] (Out[facility] [address] [place], [address], 01/16/2019 16:23:22 01/17/20 19 01/16/2019 CBC w/ auto diff MPV 11.7 fL 9.4-12 .4 Not Available [facility] (Out[facility] [address] [place], [address], 01/16/2019 16:23:22 01/17/20 19 01/16/2019 CBC w/ auto diff NRBC 0.00 /100_ WBCs 0.00 Not Available [facility] (Out[facility] [address] [place], [address], 01/16/2019 16:23:22 01/17/20 19 01/16/2019 CBC w/ auto diff absolute NRBC 0.00 K/uL 0.00 Not Available [facility] (Out[facility] [address] [place], [address], 01/16/2019 16:23:22 01/17/20 19 01/16/2019 CBC w/ auto diff diff method Auto Not Available [facility] [address] [place] [address], [address], 01/16/2019 16:23:22 01/17/20 19 01/16/2019 CBC w/ auto diff neuts 81.4 % 45.30- 77.70 high Not Available [facility] (Outpatient[facility] [address] [place], [address], 01/16/2019 16:23:22 01/17/20 19 01/16/2019 CBC w/ auto diff lymphs 10.6 % 12.30- 39.70 low Not Available [facility] (Outpatient) [address] [place], [address], 01/16/2019 16:23:22 01/17/20 19 01/16/2019 CBC w/ auto diff monos 4.7 % 4.10-1 2.80 Not Available [facility] (Out[facility] [address] [place], [address], 01/16/2019 16:23:22 01/17/20 19 01/16/2019 CBC w/ auto diff eos 2.0 % 0-7.2 Not Available [facility] (Out[facility] [address] [place], [address], 01/16/2019 16:23:22 01/17/20 19 01/16/2019 CBC w/ auto diff basos 1.0 % 0-2.80 Not Available [facility] (Out[facility] [address] [place], [address], 01/16/2019 16:23:22 01/17/20 19 01/16/2019 CBC w/ auto diff granulocytes , immature (%) 0.3 % 0.0-0. 9 Not Available [facility] (Outpatient[facility] [address] [place], [address], 01/16/2019 16:23:22 01/17/20 19 01/16/2019 CBC w/ auto diff absolute neuts 8.94 K/uL 1.40-7 .70 high Not Available [facility] (Out[facility] [address] [place], [address], 01/16/2019 16:23:22 01/17/20 19 01/16/2019 CBC w/ auto diff absolute lymphs 1.16 K/uL 0.60-3 .20 Not Available [facility] (Out[facility]) [address] [place], [address], 01/16/2019 16:23:22 01/17/20 19 01/16/2019 CBC w/ auto diff absolute monos 0.52 K/uL 0.11-0 .59 Not Available [facility] (Outpatient) [address] [place], [address], 01/16/2019 16:23:22 01/17/20 19 01/16/2019 CBC w/ auto diff absolute eos 0.22 K/uL 0.01-0 .50 Not Available [facility] (Out[facility]) [address] [place], [address], 01/16/2019 16:23:22 01/17/20 19 01/16/2019 CBC w/ auto diff absolute basos 0.11 K/uL 0.00-0 .08 high Not Available [facility] (Outpatient) [address] [place], [address], 01/16/2019 16:23:22 01/17/20 19 01/16/2019 CBC w/ auto diff granulocytes , immature 0.03 K/uL 0.00-0 .05 Not Available [facility] (Outpatient) [address] [place], [address], 01/16/2019 16:23:22 01/17/20 19 01/16/2019 eryth rocyt e sedim entat ion rate by prema sanchezo d ESR 9 mm/h 0-30 Not Available [facility] (Outpatient) [address] [place], [address], 01/16/2019 17:39:50 01/17/20 19 01/16/2019 C-andra ctive prote in, quant itati ve, serum or plasm a C reactive protein 5.2 mg/L 0.0-4. 0 high Not Available [facility] (Outpatient) [address] [place], [address], 01/16/2019 18:50:56 01/17/20 19 01/16/2019 CMP, serum or plasm a sodium 141 mmol/ L 133-14 6 Not Available [facility] (Outpatient) [address] [place], [address], 01/16/2019 22:11:00 01/17/20 19 01/16/2019 CMP, serum or plasm a potassium 4.4 mmol/ L 3.3-5. 1 Not Available [facility] (Outpatient) [address] [place], [address], 01/16/2019 22:11:00 01/17/20 19 01/16/2019 CMP, serum or plasm a chloride 102 mmol/ L 96-108 Not Available [facility] (Outpatient) [address] [place], [address], 01/16/2019 22:11:00 01/17/20 19 01/16/2019 CMP, serum or plasm a CO2 23 mmol/ L 21-35 Not Available [facility] (Outpatient) [address] [place], [address], 01/16/2019 22:11:00 01/17/20 19 01/16/2019 CMP, serum or plasm a BUN 23 mg/dL 6-19 high Not Available [facility] (Outpatient) [address] [place], [address], 01/16/2019 22:11:00 01/17/20 19 01/16/2019 CMP, serum or plasm a creatinine 1.50 mg/dL 0.5-1. 5 Not Available [facility] (Outpatient) [address] [place], [address], 01/16/2019 22:11:00 01/17/20 19 01/16/2019 CMP, serum or plasm a glucose 161 mg/dL 70-99 high Not Available [facility] (Outpatient) [address] [place], [address], 01/16/2019 22:11:00 01/17/20 19 01/16/2019 CMP, serum or plasm a albumin 4.0 g/dL 3.9-4. 8 Not Available [facility] (Outpatient) [address] [place], [address], 01/16/2019 22:11:00 01/17/20 19 01/16/2019 CMP, serum or plasm a total protein 6.8 g/dL 6.5-8. 0 Not Available [facility] (Outpatient) [address] [place], [address], 01/16/2019 22:11:00 01/17/20 19 01/16/2019 CMP, serum or plasm a calcium 9.0 mg/dL 8.4-10 .3 Not Available [facility] (Outpatient) [address] [place], [address], 01/16/2019 22:11:00 01/17/20 19 01/16/2019 CMP, serum or plasm a alkaline phosphatase 78 U/L 39-117 Not Available [facility] (Outpatient) [address] [place], [address], 01/16/2019 22:11:00 01/17/20 19 01/16/2019 CMP, serum or plasm a total bilirubin 0.4 mg/dL 0.0-1. 2 Not Available [facility] (Outpatient) [address] [place] [address], [address], 01/16/2019 22:11:00 01/17/20 19 01/16/2019 CMP, serum or plasm a AST 21 U/L 0-37 Not Available [facility] (Outpatient) [address] [place] [address], [address], 01/16/2019 22:11:00 01/17/20 19 01/16/2019 CMP, serum or plasm a ALT 19 U/L 0-40 Not Available [facility] (Outpatient) [address] [place] [address], [address], 01/16/2019 22:11:00 01/17/2001/16/2019 CMP, serum or plasm a globulin 2.8 g/dL 1-4.8 Not Available [facility] (Outpatient) [address] [place], [address], 01/16/2019 22:11:00 01/17/2001/16/2019 CMP, serum or plasm a eGFR 35 mL/mi n/1.7 3m2 >59 low If patie nt is black , multi ply resul t by 1.159 . Estim ated glome rular filtr ation rate calcu lated using the CKD-E PI equat ion. Not Available [facility] (Outpatient) [address] [place] [address], [address], 01/16/2019 22:11:00 01/17/20 19 01/16/2019 CMP, serum or plasm a anion gap 20 mmol/ L 10-20 Not Available [facility] (Outpatient) [address] [place], [address], 01/16/2019 22:11:00 06/12/20 18 06/12/2018 xr chest [...] MD Final result Pt states sob [facility] [address] [place] [address], [address], 06/12/2018 20:56:35 09/07/19 19 09/06/2018 bd dxa [...] Jane MD 9 Final result NATALIE Kaur [facility] [address] [place], [address], 09/08/2018 18:43:16 Result Notes None recorded. 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 401133626 Active 2017 admitted to [facility]; [facility] 11/2017 Natalie Reveles MD [address] [place] [address], [place], [address] [place] [address] 8 20:36:49 Gastroes ophageal reflux disease 564221468 Active 2018 Kassie romo [facility] 9 15:48:05 Mixed hyperlip idemia 863569143 Active 2001 Natalie Reveles MD [address] [place], [place] [address], [address], [facility] 6 12:19:12 Colitis, enteriti s and gastroen teritis presumed infectio us 159289168 Completed 200611/06/2009 Natalie Reveles MD [address] [place], [place] [address], [address], [facility] 6 15:03:24 Nausea 330921970 Completed 200611/06/2009 Natalie Reveles MD [address] [place], [place] [address], [address], [facility] 6 15:03:24 Essentia l hyperten olya 45918357 Completed 200311/06/2009 Natalie Reveles MD [address] [place], [place] [address], [address], [facility] 6 15:03:24 Nausea and vomiting 46700705 Completed 200611/06/2009 Natalie Reveles MD [address] [place], [place] [address], [address], [facility] 6 15:03:24 Cellulit is and abscess of buttock 527224107 Completed 200011/06/2009 Natalie Reveles MD [address] [place], [place] [address] [place], [address], [facility] 6 15:03:24 Urinary tract infectio us disease 52641351 Completed 200711/06/2009 Natalie Reveles MD [address] [place], [place] [address], [address], [facility] 6 15:03:24 Benign essentia l hyperten olya 8044792 Active 2001 Natalie Reveles MD [address] [place], [place] [address], [address], [facility] 6 12:19:12 Acute cystitis 07169786 Completed 200411/06/2009 Natalie eRveles MD [address] [place] [address] Betty Hernán[place], [address], [facility] 6 15:03:24 Acute pain 484556923 Completed 200711/06/2009 Natalie Reveles MD [address] [place] [address] Betty Hernán[place], [address], [facility] 6 15:03:24 Allergic rhinitis 30754869 Completed 200511/06/2009 Natalie Reveles MD [address] [place] [address] Betty Hernán[place], [address], [facility] 6 15:03:24 Osteoart hritis 697775791 Completed 200711/06/2009 Natalie Reveles MD [address] [place] [address] Betty Hernán[place], [address], [facility] 6 15:03:24 Sciatica 72989199 Active 2007 spinal stenosis Natalie Reveles MD [address] [place] [address] Betty Hernán[place], [address], [facility] 6 15:03:24 Diabetic on insulin 677238398 Active Natalie Reveles MD [address] [place] [address] Betty Hernán[place], [address], [facility] 6 12:19:12 Type 2 diabetes 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 complica tion 276014151 Active 2004 Natalie Reveles MD [address] [place], [place] [address], [address], [facility] 6 12:19:12 Anemia 741513867 Completed 200611/06/2009 Natalie Reveles MD [address] [place] [address] Betty Hernán[place], [address], [facility] 6 15:03:24 Acute maxillar y sinusiti s 96535827 Completed 200311/06/2009 Natalie Reveles MD [address] [place] [address] Betty Hernán[place], [address], [facility] 6 15:03:24 Arteriti s 29929476 Completed 200511/06/2009 Natalie Reveles MD [address] [place]án[place], [address], [facility] 6 15:03:24 Uncontro lled type 2 diabetes mellitus 978257628 Completed 200606/12/2013 Natalie Reveles MD [address] [place] [address] Betty Hernán[place], [address], [facility] 6 15:03:24 Generali zed osteoart hritis 521147977 Completed 200006/12/2013 Natalie Reveles MD [address] [place] [address] Betty Hernán[place], [address], [facility] 6 15:03:24 Hyperlip idemia 75517818 Completed 200111/06/2009 Natalie Reveles MD [address] [place] [address] Betty Hernán[place], [address], [facility] 6 15:03:24 Backache 233827919 Completed 200711/06/2009 Natalie Reveles MD [address] [place] [address] Betty Hernán[place], [address], [facility] 6 15:03:24 Malaise and fatigue 289850688 Completed 200111/06/2009 Natalie Reveles MD [address] [place] [address] Betty Hernán[place], [address], [facility] 6 15:03:24 Contact dermatit is 60186538 Completed 11/06/2009 Natalie Reveles MD [address] [place] [address] Betty Hernán[place], [address], [facility] 6 15:03:24 Cough 51977271 Completed 200411/06/2009 Natalie Reveles MD [address] [place] Hernán[place], [address], [facility] 6 15:03:24 Rheumato id arthriti s 93153602 Active sero-nega gloria Reveles MD [address] [place] [address] [place]án[place], [address], [facility] 6 12:19:12 Fever 866264869 Completed 200611/06/2009 Natalie Reveles MD [address] [place] [address] Betty Hernán[place], [address], [facility] 6 15:03:24 Allergic asthma without status asthmati cus 99577024 Active 2002 Natalie Reveles MD [address] [place] [address] [place] Hernán[place], [address], [facility] 6 15:03:24 Acute sinusiti s 10729828 Completed 05/14/2013 Natalie Reveles MD [address] [place] [address] Betty Hernán[place], [address] 1, [facility] 6 15:03:24 Common cold 79810796 Completed 200211/06/2009 Natalie Reveles MD [address] [place] [address] [place] Hernán[place], [address], [facility] 6 15:03:24 Common cold 28820266 Completed 05/14/2013 Natalie Reveles MD [address] [place] [address] Betty Hernán[place], [address], [facility] 6 15:03:24 On examinat ion - a rash Completed 200511/06/2009 Natalie Reveles MD [address] [place] [address] Betty Hernán[place], [address], [facility] 6 15:03:24 General symptom 065185302 Completed 200611/06/2009 Natalie Reveles MD [address] [place] [address] Betty Hernán[place], [address], [facility] 6 15:03:24 Blood chemistr y outside referenc e range 408454557 Completed 200311/06/2009 Natalie Reveles MD [address] [place] [address] Betty Hernán[place], [address] 1, [facility] 6 15:03:24 Hypothyr oidism 35620475 Completed 200607/22/2015 Natalie Reveles MD [address] [place], [place] [address], [address], [facility] 6 15:03:24 Mononeeron itis 81070412 Active 2003 Natalie Reveles MD [address] [place], [place] [address], [address], [facility] 6 15:03:24 Primary fibromya lgia syndrome 25765381 Completed 200211/06/2009 Natalie Reveles MD [address] [place], [place] [address], [address], [facility] 6 15:03:24 Vaginiti s and vulvovag initis Completed 200011/06/2009 Natalie Reveles MD [address] [place], [place] [address], [address], [facility] 6 15:03:24 Problem Notes None recorded. Procedures Surgical History Date Name Laterality Status Provider Name and Address Organization Details Recorded Time 9 Medicare Wellness Visit completed Sarah Jewell MA [facility] 12/31/2018 14:43:15 8 Medicare Wellness Visit completed Liz Boyce [facility] 12/27/2017 15:09:17 8 Post hospital/SNF follow-up/[facility] sitional Care completed Liz Boyce CMA [facility] 11/13/2017 14:14:12 8 Nebulizer Tx completed Karmen White LPN [facility] 08/02/2017 14:24:48 7 Medicare Wellness Visit completed Mary Finley MA [facility] 12/25/2016 09:27:15 Imaging Results None recorded. Procedure Notes None recorded. Medical Equipment None Reported. Allergies Allergen ID Allergen Name Allergen Category Reaction Reaction Severity Criticality Documentation Date Start Date Code Code System Note Provider Name and Address Organization Details Recorded Time 660405 doxycycli ne Not available nausea Not available Not available 11/27/2013 3640 RxNorm LISANDRO Galvez [facility] 4 10:10:57 455737 codeine medicatio n nausea Not available Not available 08/17/2015 2670 RxNorm Angelicabaylee Hicks CMA [facility] 6 16:23:36 54069 Substance with sulfonami de structure and antibacte rial mechanism of action (substanc e) medicatio n hives Not available Not available 06/29/2010 67041 8003 SNOMED Not Available [facility] 1 06:05:41 Medications Name Sig Start [...] Not Available Not Available No t Available [employer] Ultra Test strips USE TO TEST 3-4 [...] EVERY DAY AT BEDTIME 11/13 completed per [facility] d/c 11/08/17 new dose as follows: 600 [...] Updated DateTime 9 147.95 cm 35.7 kg/m2 59169.6 9 g 64 /min 90 mm[Hg] 54 mm[Hg] Marcia Baron [facility] 9 11:24:40 Date Recorded Systolic blood pressure Diastolic blood pressure Systolic blood pressure Diastolic blood pressure Provider Name and Address Organization Details Last Updated DateTime 12/31/2018 120 mm[Hg] 60 mm[Hg] 120 mm[Hg] 60 mm[Hg] Kassie Reynolds [facility] 9 15:58:43 Date Recorded Body height Body mass index (BMI) Body weight Oxygen saturation Oxygen saturation in Arterial blood by Pulse oximetry Heart rate Systolic blood pressure Diastolic blood pressure Provider Name and Address Organization Details Last Updated DateTime 9 147.95 cm 36.3 kg/m2 03373.7 6 g 96 % 96 % 76 /min 120 mm[Hg] 62 mm[Hg] Sarah Jewell MA [facility] 9 14:52:36 Date Recorded Body height Body mass index (BMI) Body weight Body temperature Heart rate Oxygen saturation Oxygen saturation in Arterial blood by Pulse oximetry Systolic blood pressure Diastolic blood pressure Provider Name and Address Organization Details Last Updated DateTime 9 147.95 cm 35.9 kg/m2 23500.5 8 g 97.9 [degF] 88 /min 96 % 96 % 114 mm[Hg] 62 mm[Hg] Brooks laurent [facility] 9 09:44:29 Date Recorded Body height Body mass index (BMI) Body weight Heart rate Oxygen saturation Oxygen saturation in Arterial blood by Pulse oximetry Systolic blood pressure Diastolic blood pressure Provider Name and Address Organization Details Last Updated DateTime 8 147.95 cm 35.9 kg/m2 45254.1 8 g 80 /min 97 % 97 % 126 mm[Hg] 74 mm[Hg] Sarah Jewell [facility] 8 10:50:58 Social History Question Answer Notes [...] Type Of Diet Are You Following? REGULAR 17 Information not available 05/11/2011 Which Illicit Or [...] used smokeless tobacco? Never used smokeless tobacco [facility] Information not available 02/20/2019 What is your occupation? Retired Health Information [employer] [facility] Information not available 12/31/2018 Do you or have you ever used e-cigarettes or vape? Never used electronic cigarettes [facility] Information not available 02/20/2019 Mental Status None recorded. Family History Relationship Description Onset Age of this Age Resolved Age Notes LastModified by Organization Details LastModified Time Sister [facility] Not [facility] 2015 16:41:38 Notes:Diabetes. Sister with brain tumor. Medical History Condition Response Diabetes Type II Y Hyperlipidemia Y Osteoarthritis Y Hypertension Y Asthma Y Gynecological HistoryNo gynecological history recorded. Obstetrics History GPAL:G 0 P 0 0 0 0 Immunizations Vaccine Type Date Status Note Provider Nam e and Address Organization Details Recorded Time tetanus toxoid, unspecified formulation 1 completed Not Available [facility] 07/12/2019 02:34:13 influenza, unspecified formulation 0 completed Not Available [facility] 05/10/2011 05:22:52 Influenza, split virus, trivalent, preservative 1 [facility] 14:09:08 Tdap 1 completed Fang Robison RN [facility] 06/12/2011 16:12:51 influenza, unspecified formulation 2 completed Mary Finley MA [facility] 05/21/2012 16:38:35 influenza, unspecified formulation 3 [facility] 06/12/2013 16:12:54 influenza, unspecified formulation 4 [facility] 06/23/2014 15:26:51 influenza, unspecified formulation 5 [facility] 04/29/2015 14:13:29 Pneumococcal conjugate PCV 13 8 completed Not Available [facility] 07/12/2019 02:22:36 Hep B, adult 9 completed Not Available [facility] 07/12/2019 02:34:54 influenza, unspecified formulation 6 completed Not Available [facility] 07/26/2019 02:10:42 pneumococcal polysaccharide PPV23 9 completed Not Available [facility] 07/12/2019 02:24:02 Influenza, split virus, quadrivalent, preservative 7 completed Liz Boyce [facility], [facility] 05/03/2017 14:36:38 Past Encounters Encounter ID Performer Location Encounter Start Date Encounter Closed Date Diagnosis/Indication Diagnosis SNOMED-CT Code Diagnosis ICD10 Code Diagnosis Note [id number] Natalie Reveles MD , [facility], [address] [place] [address] 09/14/2000 12:00:00 07/15/2008 02:02:29 [id number] Natalie Reveles MD , [facility], [address] [place] [address] 10/16/2000 10:45:00 07/15/2008 02:02:29 [id number] Elvis Grover MD , [facility], [address] [place] [address] 02/28/2001 14:15:00 07/15/2008 02:02:29 [id number] Elvis Grover MD , [facility], [address] [place] [address] 03/01/2001 09:45:00 07/15/2008 02:02:29 [id number] Natalie Reveles MD , [facility], [address] [place] [address] 6 10/22/2001 09:00:00 07/15/2008 02:02:29 [id number] [facility] - [facility] [address] [place] [address] 10/22/2001 10:30:00 07/15/2008 02:02:29 [id number] Natalie Reveles MD , [facility], [address] [place] [address] 6 12/02/2001 08:19:54 07/15/2008 02:02:29 [id number] [facility] , [address] [address] 12/02/2001 11:21:25 07/15/2008 02:02:29 [id number] [facility] - [address] [address] 04/24/2002 08:28:24 07/15/2008 02:02:29 [id number] Natalie Reveles MD , [facility], [address] [place] [address] 6 04/30/2002 16:42:20 07/15/2008 02:02:29 [id number] [facility] - [address] [address] 6 07/22/2002 09:02:09 07/15/2008 02:02:29 [id number] Natalie Reveles MD , [facility], [address] [place] [address] 6 07/29/2002 16:39:59 07/15/2008 02:02:29 [id number] Natalie Reveles MD , [facility], [address] [place] [address] 6 10/30/2002 11:15:27 07/15/2008 02:02:29 [id number] [facility] - [address] [address] 6 10/30/2002 12:12:41 07/15/2008 02:02:29 [id number] Natalie Reveles MD , [facility], [address] [place] [address] 6 12/31/2002 10:02:51 07/15/2008 02:02:29 [id number] [facility] - [address] [address] 12/31/2002 00:00:00 07/15/2008 02:02:29 [id number] [facility] - [address] [place] [address] 01/13/2003 11:28:31 07/15/2008 02:02:29 [id number] [facility] , [address] [address] 01/15/2003 08:55:54 07/15/2008 02:02:29 [id number] ENRIKE Haq FP, [facility], [address] [place] [address] 07/03/2003 16:41:59 07/04/2003 10:51:01 [id number] MD RAJEEV Norwood, [facility], [address] [place] [address] 10/13/2003 14:52:44 10/14/2003 08:39:08 [id number] [facility] - [facility] [address] [place] [address] 10/22/2003 08:14:06 10/22/2003 08:14:10 [id number] Natalie Reveles MD , [facility], [address] [place] [address] 12/10/2003 14:34:40 12/12/2003 13:55:58 [id number] [facility] - [facility] [address] [place] [address] 03/30/2004 08:05:15 03/30/2004 08:05:20 [id number] Natalie Reveles MD , [facility], [address] [place] [address] 07/04/2004 13:43:22 07/04/2004 17:14:21 [id number] Natalie Reveles MD , [facility], [address] [place] [address] 6 07/26/2004 09:25:43 07/27/2004 08:19:25 [id number] Natalie Reveles MD , [facility], [address] [place] [address] 6 08/08/2004 15:52:00 08/09/2004 08:55:32 [id number] Natalie Reveles MD , [facility], [address] [place] [address] 6 09/05/2004 07:59:25 09/05/2004 15:25:12 [id number] ENRIKE Chambers, [facility], [address] [place] [address] 6 09/19/2004 13:51:52 09/19/2004 17:45:01 [id number] [facility] - [facility] [address] [place] [address] 10/05/2004 08:38:59 10/05/2004 08:39:04 [id number] MD RAJEEV Norwood, [facility], [address] [place] [address] 10/10/2004 07:58:34 10/10/2004 14:31:17 [id number] Valentine Mckenzie NP , [facility], [address] [place] [address] 6 11/03/2004 13:44:09 07/15/2008 02:02:29 [id number] [facility] - [facility] [address] [place] [address] 01/16/2005 08:22:10 01/16/2005 08:22:26 [id number] Natalie Reveles MD , [facility], [address] [place] [address] 6 01/24/2005 08:00:36 07/15/2008 02:02:29 [id number] [facility] , [facility] [address] [place] [address] 6 02/13/2005 11:40:53 07/15/2008 02:02:29 [id number] [facility] , [facility] [address] [place] [address] 6 02/13/2005 00:00:00 07/15/2008 02:02:29 [id number] Natalie Reveles MD , [facility], [address] [place] [address] 6 04/12/2005 08:22:15 07/15/2008 02:02:29 [id number] Rocky Lehman MD , [facility], [address] [place] [address] 6 04/28/2005 16:18:32 07/15/2008 02:02:29 [id number] [facility] - [facility] [address] [place] [address] 08/22/2005 08:28:59 08/22/2005 08:29:02 [id number] MD RAJEEV Norwood, [facility], [address] [place] [address] 6 08/28/2005 15:40:14 08/29/2005 08:44:57 [id number] MD RAJEEV Norwood, [facility], [address] [place] [address] 6 09/21/2005 14:22:16 07/15/2008 02:02:29 [id number] [facility] - [address] [address] 09/21/2005 15:10:47 09/21/2005 15:11:05 [id number] [facility] - [address] [address] 01/23/2006 08:32:14 01/23/2006 08:32:24 [id number] MD RAJEEV Norwood, [facility], [address] [place] [address] 6 02/05/2006 11:04:33 02/06/2006 09:17:09 [id number] MD RAJEEV Norwood, [facility], [address] [place] [address] 03/21/2006 10:05:20 03/22/2006 08:20:24 [id number] MD RAJEEV Norwood, [facility], [address] [place] [address] 6 04/04/2006 11:34:15 04/08/2006 09:14:42 [id number] [facility] - [address] [address] 04/25/2006 08:18:53 04/25/2006 08:19:04 [id number] Natalie Reveles MD , [facility], [address] [place] [address] 6 05/03/2006 09:59:10 05/04/2006 08:46:05 [id number] [facility] , [address] [address] 05/08/2006 08:08:08 07/15/2008 02:02:29 [id number] [facility] Rad[facility] , [address] [address] 05/08/2006 00:00:00 07/15/2008 02:02:29 [id number] MD RAJEEV Norwood, [facility], [address] [place] [address] 07/31/2006 08:56:23 07/31/2006 14:16:09 [id number] [facility] - [address] [address] 07/31/2006 10:36:02 07/31/2006 10:36:06 [id number] Natalie Reveles MD , [facility], [address] [place] [address] 6 08/07/2006 08:36:04 08/08/2006 08:58:07 [id number] [facility] - [facility] [address] [place] [address] 10/22/2006 08:25:40 10/22/2006 08:25:45 [id number] Natalie Reveles MD , [facility], [address] [place] [address] 6 10/29/2006 07:59:04 10/29/2006 10:37:03 [id number] [facility] - [facility] [address] [place] [address] 10/30/2006 08:27:25 10/30/2006 08:27:30 [id number] Elvis Grover MD , [facility], [address] [place] [address] 11/26/2006 10:44:18 11/26/2006 15:10:48 [id number] [facility] - [address] [address] 6 11/26/2006 11:29:37 11/26/2006 11:29:44 [id number] Elvis Grover MD , [facility], [address] [place] [address] 6 12/06/2006 14:26:14 12/07/2006 08:30:34 [id number] Natalie Reveles MD , [facility], [address] [place] [address] 6 12/10/2006 13:46:03 12/11/2006 09:05:34 [id number] [facility] - [address] [address] 6 12/10/2006 14:31:03 12/10/2006 14:31:43 [id number] [facility] - [address] [address] 6 01/04/2007 07:54:29 01/04/2007 07:54:36 [id number] [facility] - [address] [address] 6 04/08/2007 08:14:44 04/08/2007 08:14:49 [id number] Natalie Reveles MD , [facility], [address] [place] [address] 04/15/2007 16:27:24 04/18/2007 08:58:27 [id number] [facility] Radiology , [facility] [address] [place] [address] 6 06/29/2007 09:23:36 07/01/2007 09:13:11 [id number] Natalie Reveles MD , [facility], [address] [place] [address] 6 09/20/2007 14:25:55 07/15/2008 02:02:29 [id number] Natalie Reveles MD , [facility], [address] [place] [address] 6 10/08/2007 14:05:16 07/15/2008 02:02:29 [id number] [facility] - [address] [address] 10/29/2007 08:19:39 10/29/2007 08:19:43 [id number] Natalie Reveles MD , [facility], [address] [place] [address] 6 11/05/2007 09:43:59 07/15/2008 02:02:29 [id number] [facility] - [address] [address] 11/12/2007 08:23:38 11/12/2007 08:23:44 [id number] [facility] - [address] [address] 01/17/2008 12:48:01 01/17/2008 12:48:16 [id number] Natalie Reveles MD , [facility], [address] [place] [address] 6 01/24/2008 14:09:47 07/15/2008 02:02:29 [id number] [facility] - [address] [address] 01/24/2008 15:39:37 01/24/2008 15:40:02 [id number] [facility] - [address] [address] 01/24/2008 00:00:00 07/15/2008 02:02:29 [id number] Natalie Reveles MD , [facility], [address] [place] [address] 03/30/2008 10:44:06 07/15/2008 02:02:29 [id number] Abigail Carmita catalan, PT Physical Therapy, [address] [address] 03/31/2008 11:58:11 04/01/2008 09:12:25 [id number] Abigail Carmita catalan, PT Physical Therapy, [address] [address] 6 04/02/2008 08:36:13 04/02/2008 16:25:15 [id number] Abigail Carmita catalan, PT Physical Therapy, [address] [address] 04/07/2008 08:34:12 04/07/2008 14:43:31 [id number] Abigailedwin catalan, PT Physical Therapy, [address] [address] 6 04/09/2008 08:37:17 04/09/2008 15:42:30 [id number] Abigailedwin catalan, PT Physical Therapy, [address] [address] 6 04/14/2008 08:31:29 04/14/2008 14:21:06 [id number] [facility] - [address] [address] 07/07/2008 11:15:56 07/07/2008 11:16:03 [id number] MD RAJEEV Norwood, [facility], [address] [place] [address] 07/14/2008 13:28:43 07/24/2008 13:00:23 [id number] [facility] , [address] [address] 12/19/2008 08:52:20 12/22/2008 14:08:26 [id number] Rachel Obrien NP , [facility], [address] [place] [address] 6 06/24/2009 14:39:32 06/24/2009 16:02:12 [id number] MD RAJEEV Norwood, [facility], [address] [place] [address] 6 10/25/2009 13:26:11 11/10/2009 13:32:16 [id number] [facility] RAD[facility] , [facility] [address] [place] [address] 10/25/2009 14:29:01 10/26/2009 11:21:38 [id number] Natalie Reveles MD , [facility], [address] [place] [address] 6 06/29/2010 11:23:06 07/26/2010 11:56:31 [id number] Natalie Reveles MD , [facility], [address] [place] [address] 6 09/22/2010 13:34:57 09/22/2010 17:04:13 [id number] Meghann Ayala NP , [facility], [address] [place] [address] 04/05/2011 09:42:34 04/05/2011 10:07:18 [id number] Oscar Islas MD , [facility], [address] [place] [address] 6 04/10/2011 09:24:01 04/11/2011 11:28:27 [id number] Natalie Reveles MD , [facility], [address] [place] [address] 6 05/17/2011 13:46:28 05/17/2011 15:12:35 [id number] [facility] Radiology , [facility] [address] [place] [address] 6 05/17/2011 14:58:54 05/22/2011 15:07:56 [id number] Natalie Reveles MD , [facility], [address] [place] [address] 05/26/2011 16:22:49 05/29/2011 14:16:46 [id number] Natalie Reveles MD , [facility], [address] [place] [address] 6 11/21/2011 11:10:29 11/21/2011 12:20:19 [id number] Natalie Reveles MD , [facility], [address] [place] [address] 05/21/2012 15:50:05 05/21/2012 17:16:10 [id number] ENRIKE Haq , [facility], [address] [place] [address] 6 08/06/2012 09:44:43 08/06/2012 10:34:24 [id number] Natalie Reveles MD , [facility], [address] [place] [address] 6 11/01/2012 15:29:43 11/04/2012 10:55:05 [id number] Natalie Reveles MD , [facility], [address] [place] [address] 6 02/21/2013 11:09:19 02/21/2013 12:15:52 Benign essential hypertension 0838957 continue to work on diet ,exercisea nd lowering salt intake as discussed Mixed hyperlipidemia 076755840 continue to work on diet and exercise as discussed Diabetic on insulin 771099887 Rheumatoid arthritis 99876622 [id number] Natalie Reveles MD , [facility], [address] [place] [address] 06/12/2013 15:53:14 06/12/2013 17:00:00 Benign essential hypertension 1915892 continue to work on diet ,exercisea nd lowering salt intake as discussed Mixed hyperlipidemia 890129184 continue to work on diet and exercise as discussed Adult [facility] th examination 299836314 see Risk Assessment and Lifestyle Change Counseling section above Diabetic on insulin 891568464 Neuropathy due to diabetes mellitus 095935818 Mononeuritis 95246440 Rheumatoid arthritis 09416423 [id number] ISAAC Schumacher-VANESA , [facility], [address] [place] [address] 06/19/2013 13:36:30 06/19/2013 14:00:11 Acute sinusitis 49668558 sx tx including afrin- strt ab if no relief Common cold 85509343 Upp er Respirator y Infection Drink plenty [...] days, or you have a high fever. [id number] Natalie Reveles MD , [facility], [address] [place] [address] 09/23/2013 13:47:10 09/24/2013 10:04:00 Sinusitis 76596269 [id number] Rocky Lehman MD , [facility], [address] [place] [address] 09/29/2013 16:41:29 09/30/2013 09:41:00 Acute sinusitis 25303094 [id number] Meghann Ayala NP , [facility], [address] [place] [address] 6 11/27/2013 09:59:23 11/27/2013 16:10:44 Cough 57302917 [id number] Natalie Reveles MD , [facility], [address] [place] [address] 6 12/11/2013 14:25:08 12/11/2013 15:34:31 Benign essential hypertension 9243610 continue to work on diet ,exercisea nd lowering salt intake as discussed Mixed hyperlipidemia 038095498 continue to work on diet and exercise as discussed Neuropathy due to diabetes mellitus 550876592 Diabetic on insulin 342713712 [id number] Natalie Reveles MD , [facility], [address] [place] [address] 6 06/23/2014 15:01:46 06/23/2014 16:03:39 Spinal stenosis of lumbar region 80888629 Neuropathy due to diabetes mellitus 727840560 Diabetic on insulin 819976118 Allergic a sthma without status asthmaticus 32098387 Mixed hyperlipidemia 369703259 continue to work on diet and exercise as discussed Mononeuritis 71966568 Rheumatoid arthritis 41652669 Type 2 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 248974596 [id number] Natalie Reveles MD , [facility], [address] [place] [address] 12/31/2014 14:26:47 12/31/2014 15:36:09 Benign essential hypertension 5737689 continue to work on diet, exercise, and lowering salt intake as discussed Blood pressure at goal Mixed hyperlipidemia 716724058 continue to work on diet and exercise as discussed Diabetic on insulin 086345980 Rheumatoid arthritis 44234794 [id number] Natalie Reveles MD , [facility], [address] [place] [address] 6 04/29/2015 13:53:38 04/29/2015 14:45:02 Benign essential hypertension 6824880 I10 continue to work on diet, exercise, and lowering salt intake as discussed Mixed hyperlipidemia 267 934459 E78.2 continue to work on diet and exercise as discussed Diabetic on insulin 1707 30434 Z79.4 Type 2 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 465185141 E11.9 Neuropathy due to diabetes mellitus 737434782 E11.42 Allergic a sthma without status asthmaticus 74205271 J45.909 Rheumatoid arthritis 698 91574 M06.9 [id number] Natalie Reveles MD , [facility], [address] [place] [address] 07/22/2015 14:47:13 07/22/2015 15:54:33 Benign essential hypertension 5578610 I10 Blood pressure at goal continue to work on diet, exercise, and lowering salt intake as discussed Mixed hyperlipidemia 267 782049 E78.2 continue to work on diet and exercise as discussed Adult [facility] examination 961511460 Z00.00 see Risk Assessment and Lifestyle Change Counseling section above Neuropathy due to diabetes mellitus 994059985 E11.42 Diabetic on insulin 1707 17064 Z79.4 Hypothyroidism 28424408 E03.9 Rheumatoid arthritis 698 23487 M06.9 Spinal shara nosis of lumbar region 88342072 M48.06 Type 2 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 301143620 E11.9 [id number] Batsheva Cobb MD , [facility], [address] [place] [address] 08/17/2015 16:10:28 08/17/2015 16:58:40 Acute sinusitis 39938447 J01.90 Eczema 95774553 L30.9 Asthma 038184919 J45.90 9 Allergic rhinitis 253369 04 J30.9 [id number] Natalie Reveles MD , [facility], [address] [place] [address] 11/23/2015 14:02:11 11/23/2015 15:24:07 Benign essential hypertension 5354592 I10 Blood pressure at goal continue to work on diet, exercise, and lowering salt intake as discussed Mixed hyperlipidemia 267 814292 E78.2 Cholestero l is at goal Continue to work on diet and exercise as discussed Neuropathy due to diabetes mellitus 330095765 E11.42 Rheumatoid arthritis 698 18169 M06.9 Type 2 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 096067879 E11.9 Diabetic on insulin 1707 95852 Z79.4 [id number] Natalie Reveles MD , [facility], [address] [place] [address] 03/23/2016 14:19:29 03/23/2016 15:26:40 Benign essential hypertension 5593094 I10 Blood pressure at goal Blood pressure NOT at goal. Mixed hyperlipidemia 267 614844 E78.2 continue to work on diet and exercise as discussed Sinusitis 00450588 J32.9 Eczema 27611379 L30.9 Diabetic on insulin 1707 62723 Z79.4 Mononeuritis 69049464 G5 8.9 Rheumatoid arthritis 698 09159 M06.9 [id number] Natalie Reveles MD , [facility], [address] [place] [address] 06/13/2016 14:40:53 06/13/2016 15:36:21 Acute sinusitis 81920922 J01.90 [id number] Natalie Reveles MD , [facility], [address] [place] [address] 11/30/2016 13:57:42 11/30/2016 15:08:02 Diabetic on insulin 828205220 Z79.4 Type 2 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 510371569 E11.9 Mixed hyperlipidemia 267 669931 E78.2 continue to work on diet and exercise as discussed Acute sinusitis 01581968 J01.90 [id number] Natalie Reveles MD , [facility], [address] [place] [address] 12/25/2016 09:20:57 12/25/2016 10:34:52 Adult health examination 143439312 Z00.00 see Risk Assessment and Lifestyle Change Counseling section above Counseling 984387013 Z71 .9 Mixed hyperlipidemia 267 432138 E78.2 continue to work on diet and exercise as discussed Benign ess ential hypertension 3033209 I10 Blood pressure at goal and re Mononeuritis 02438809 G5 8.9 Sciatica 06211653 M54.30 Diabetic on insulin 1707 57173 Z79.4 Rheumatoid arthritis 698 81116 M06.9 Neuropathy due to diabetes mellitus 501988223 E11.42 Hearing loss 66653298 H9 1.90 [id number] Natalie Reveles MD , [facility], [address] [place] [address] 05/03/2017 14:27:16 05/03/2017 15:21:54 Benign essential hypertension 8173268 I10 Blood pressure at goal . Mixed hyperlipidemia 267 236241 E78.2 continue to work on diet and exercise as discussed Sciatica 54775605 M54.30 Type 2 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 332099404 E11.9 Diabetic on insulin 1707 42728 Z79.4 Rheumatoid arthritis 698 71026 M06.9 [id number] Rachel Obrien NP , [facility], [address] [place] [address] 06/27/2017 15:27:55 06/27/2017 15:57:15 Acute sinusitis 15354226 J01.90 discussed tx options,. At this point will tx with abx, probiotics , nasal rinses and rest. RTC prn [id number] Mami Bernstein MD , [facility], [address] [place] [address] 08/02/2017 13:49:47 08/02/2017 14:54:19 Allergic asthma without status asthmaticus 15919083 J45.909 feels diminished and wheezingbr eath sounds goodafter neb a bit improvedpe ak flows lower range, not much changesubj ectively feels easier to deep breath after nebulizerb ut albuterol makes her jittery and she avoids it when possiblesh ort term trial inhaled steroidcon tinue proair as neededf/u if not improving Acute uppe r respiratory infection 39133754 J06.9 Kriss is presenting today with recurrent URI sxthis does sound like a new viral URI and not pna or recurrent sinus infections upportive instr giventx coughaugme nt asthma mgmt [id number] Natalie Reveles MD , [facility], [address] [place] [address] 09/13/2017 14:23:47 09/13/2017 15:31:30 Benign essential hypertension 9661363 I10 Blood pressure at goal Mixed hyperlipidemia 267 402095 E78.2 continue to work on diet and exercise as discussed Sciatica 32555251 M54.30 Type 2 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 002969327 E11.9 Mononeuritis 68486118 G5 8.9 Rheumatoid arthritis 698 76833 M06.9 Diabetic on insulin 1707 28500 Z79.4 Anemia 144590436 D64.9 Asthma 891778255 J45.90 9 Active or passive immunization 074539277 Z23 [id number] Natalie Reveles MD , [facility], [address] [place] [address] 11/13/2017 14:08:31 11/13/2017 14:54:27 Transient cerebral ischemia 011488046 G45.9 Diabetic on insulin 1707 15882 Z79.4 [id number] Natalie Reveles MD , [facility], [address] [place] [address] 12/27/2017 14:34:57 12/27/2017 16:04:03 Adult health examination [id number] Z00.00 see Risk Assessment and Lifestyle Change Counseling section above Counseling 795894086 Z71 .9 Depression screening 171 111682 Z13.89 depression screening tool administer ed, entered into emr, scored and discussed, time greater than 7.5 minutes Focal onse t impaired awareness epileptic seizure [id number] G40.209 Benign ess ential hypertension 3014735 I10 Blood pressure at goal Sciatica 89768577 M54.30 Mixed hyperlipidemia 267 919609 E78.2 continue to work on diet and exercise as discussed Type 2 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 015781254 E11.9 Allergic a sthma without status asthmaticus 73577019 J45.909 Diabetic on insulin 1707 77074 Z79.4 Rheumatoid arthritis 698 57431 M06.9 Neuropathy due to diabetes mellitus 607700383 E11.42 Screening mammography 24 811764 Z12.31 Active or passive immunization 464894686 Z23 [id number] Natalie Reveles MD , [facility], [address] [place] [address] 04/30/2018 10:39:49 04/30/2018 11:23:30 Counseling 598551355 Z71.9 Benign ess ential hypertension 9908301 I10 Blood pressure at goal Mixed hyperlipidemia 267 233043 E78.2 continue to work on diet and exercise as discussed Focal onse t impaired awareness epileptic seizure 736598405 G40.209 Sciatica 11723969 M54.30 Type 2 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 410222199 E11.9 Mononeuritis 66175660 G5 8.9 Diabetic on insulin 1707 29874 Z79.4 Rheumatoid arthritis 698 79266 M06.9 Allergic a sthma without status asthmaticus [id number] J45.909 Intolerant of ambient temperature 967544848 R68.89 [id number] Natalie Reveles MD , [facility], [address] [place] [address] 07/04/2018 09:15:51 07/04/2018 09:27:41 Active or passive immunization 819565805 Z23 [id number] Natalie Reveles MD , [facility], [address] [place] [address] 08/29/2018 11:16:37 08/30/2018 10:37:41 Acute sinusitis 45333086 J01.90 Benign ess ential hypertension 9697709 I10 Blood pressure at goal Type 2 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 285744680 E11.9 Mononeuritis 66867849 G5 8.9 Rheumatoid arthritis 698 87688 M06.9 [id number] Natalie Reveles MD , [facility], [address] [place] [address] 12/31/2018 14:40:49 12/31/2018 16:07:09 Adult health examination 666315054 Z00.00 see Risk Assessment and Lifestyle Change Counseling section above Counseling 846820805 Z71 .9 Depression screening 171 261782 Z13.89 depression screening tool administer ed, entered into emr, scored and discussed, time greater than 7.5 minutes Mixed hyperlipidemia 267 582338 E78.2 Focal onse t impaired awareness epileptic seizure 285988070 G40.209 Benign ess ential hypertension 9619263 I10 Blood pressure at goal Sciatica 07315216 M54.30 Type 2 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 325152289 E11.9 Allergic a sthma without status asthmaticus 04924839 J45.909 Diabetic on insulin 1707 15411 Z79.4 Rheumatoid arthritis 698 67445 M06.9 Gastroesop hageal reflux disease 529729699 K21.9 Active or passive immunization 151423668 Z23 Neuropathy due to diabetes mellitus 767166164 E11.42 [id number] Natalie Reveles MD , [facility], [address] [place] [address] 02/20/2019 09:32:43 02/20/2019 10:11:54 Acute sinusitis 62578788 J01.90 Health Concerns Section Related Observation LastModified by Organization Detai ls LastModified Time None Recorded Concern Status LastModified by Organization Details LastModified Time None Recorded Advance Directives Directive N: Payers Insurance Date Sequence Insurance Name Policy Number Policy Samuel Covered Member ID Samuel Member ID Guarantor Name 11/20/2017 1 [place] [facility] (PP[place]) [id number] Kriss Jackson [id number] Kriss Jackson 11/20/2017 2 [place] [id number] Kriss Jackson [id number] Kriss Jackson 07/05/2004 1 *SELF PAY* Ru Massimo Young 11/01/2012 1 [place] [id number] Kriss Jackson [id number] Kriss Jackson 11/20/2017 1 [place] [facility] (O) [id number] Kriss Jackson [id number] Kriss Jackson 11/01/2012 1 [facility] (PPO) [id number] Kriss Jackson [id number] Kriss Jackson 07/01/2013 1 [employer] [facility] (PPO) [id number] Kriss Jackson [id number] Kriss Jackson 11/01/2012 1 [facility] [id number] Kriss Jackson [id number] Kriss Jackson 11/20/2017 1 [employer] [facility] [place] [id number] Kriss Jackson [id number] Kriss Jackson 02/20/2019 2 [place] [id number] Kriss Jackson [id number] Kriss Jackson 02/20/2019 1 [place] [employer] Kriss Jackson [id number] Kriss A Young Notes Date Note Type [...] intolerance has developed recently Natalie Reveles MD [address] [place] [address], [phone], [facility] 05/11/2018 15:01:12 9 text/html 67 yo with [...] lidocaine patches prn for feetC[place] back from [place] yesterday and had allergy sx. Using flonase, asthma inhaler, loratidine.Recent A1 C was <6% per Dr. Robson Reveles MD [address] [place] [address], [phone], [facility] 08/30/2018 13:31:11 9 text/html Physical Exam/FemaleReported bypatient.PHAPatient [...] room and availability of urgent care at [facility] DiabetesReported bypatient.Duration:chronic Control:usually well controlled; improved [...] of 145/80 since reducing lisinopril in august.Sees sleeve wheel maker (Dr. Chance) Natalie Reveles MD [address] [place] [address], [phone], [facility] 01/05/2019 14:13:02 9 text/html Physical Exam/FemaleReported bypatient.PHAPatient [...] room and availability of urgent care at [facility] DiabetesReported bypatient.Duration:chronic Control:usually well controlled; improved [...] green sputum. No dyspnea Natalie Reveles MD [address] [place] [address], [phone], [facility] 02/20/2019 10:14:25 OBGyn Episode No OBEpisode recorded.
== END 2024-12-18 10:09 | disposition home or self-care (01) ==
LOC: HO.HMCH 09:01
PROVIDERS: PCP Internal Medicine; Visit Provider Internal Medicine
DX: E11.9 Type 2 diabetes 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s (principal); Z79.4 Long term (current) use of insulin

== ENCOUNTER → 2024-12-18 09:00 | Outpatient (BNVA) | payer MEDICARE, SELFPAY | PROVIDERS: PCP Internal Medicine; Visit Provider Internal Medicine | DX: E11.9 Type 2 diabetes 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s (principal); Z79.4 Long term (current) use of insulin | CPT/HCPCS: 83036; 99212 ==

== ENCOUNTER 2025-01-06 10:23 | Outpatient (REF) | payer MEDICARE, SELFPAY ==
[2025-01-06 11:35] LABS: Anion Gap 15 (12-20); Blood Urea Nitrogen 26 mg/dL (9-16); Calcium 9.8 mg/dL (8.4-10.2); Carbon Dioxide 27 mmol/L (22-29); Chloride 106 mmol/L (96-108); Estimated Glomerular Filt Rate 44; Potassium 4.1 mmol/L (3.3-5.1); Sodium 144 mmol/L (135-145)
--- OUTSIDE RECORDS SUMMARY | 2025-01-06 11:36 | XMS_ITS | Data Portability ---
Author Organization [facility], [facility] Address [address] [place] [address] Assessment Encounter Date Assessment Date Assessment LastModified by Organization Details LastModified Time 04/30/2018 04/30/2018 Blood pressure i s at goal with which is below 140/90 for a diabetic. She is looking for alternative activities in her residential. Her A1c of 5.5% shows excellent diabetes control (goal below 7.5-8%). She will continue with [employer] [facility] diabetes education for that. [...] to what she tells us from her safety council director, and she will try and get us those records. He continues with breaker tender and on prednisone. She will follow-up in [...] bp more regularly 3) Patient regularly sees safety council director who will check A1C and adjust rx [...] with new provider (will be changing to [place] [facility] for convenience) 9) RA stable; may [...] Lab TSH, serum or plasma 2017 018 [facility], [address] [place] [address], [address], 8 16:26:11 CBC 2017 018 [facility], [address] [place] [address], [id number], 8 14:43:05 Referral None recorded. Procedures None recorded. Surgeries None recorded. Imaging None recorded. Medication Orders cefpodoxim e 200 mg tablet 2018 [id number], [address], [place], [id number], 9 12:53:28 atorvastat in 20 mg tablet 2018 019 [facility] #[id number], [address], [place], [id number], 9 16:34:01 lidocaine 5 % topical patch 2018 019 INTERFACE [facility] #[id number], [address], [place], [id number], 9 13:32:45 omeprazole 20 mg capsule,de layed release 2018 019 [facility] #[id number], [address], [place], [id number], 9 16:34:01 lisinopril 10 mg-hydroch lorothiazi de 12.5 mg tablet 2018 019 [facility] #73739, [address], [place], [id number], 9 16:34:01 cefpodoxim e 200 mg tablet 2018 019 [facility] #[id number], [address], [place], [id number], 9 14:47:44 Patient TargetsNo targets recorded. Patient Instructions Encounter Date Encounter Id Patient Instructions Last Modified By Organization Details Last Modified Time 04/30/2018 [id number] high cholesterol lifestyle changes nikki Not available 04/30/2018 11:19:19 high blood pressure: care instructions nikki Not available 04/30/2018 11:19:19 learning about high blood pressure nikki Not available 04/30/2018 11:19:19 asthma handout / teaching nikki Not available 04/30/2018 11:19:19 asthma action plan nikki Not availab le 04/30/2018 11:19:[address] an ages 0-11 yrs togolese nikki Not available 04/30/2018 11:19:19 CCM: The provide r and patient discussed the Chronic Care Management program, including the services provided, and any fees associated with them. michele Not available 04/30/2018 11:32:47 08/29/2018 [id number] My Health To Do List Specific Analgesia [...] medication. spise Not available 08/29/2018 11:18:25 12/31/2018 [id number] After a discussi on of treatment options, [...] Patie nts with Diabe sarath Not Available [address], [address], 04/26/2018 15:36:01 04/26/20 18 04/26/2018 HbA1c (hemo globi n A1c), blood estimated average glucose 111.2 mg/dL Not Available [address], [address], 04/26/2018 15:36:01 04/26/20 18 04/26/2018 micro album in, urine microalbumin 39.3 mg/L 1.3-20 .0 high Not Available [address], [address], 04/26/2018 15:37:51 04/26/20 18 04/26/2018 micro album in, urine creatinine urine 193.6 mg/dL 30.0-1 25.0 high Not Available [address], [address], 04/26/2018 15:37:51 04/26/20 18 04/26/2018 micro album in, urine microalb/cre at ratio 20.3 mg/g_ creat 0.0-29 .0 Not Available [address], [address], 04/26/2018 15:37:51 04/26/20 18 04/26/2018 BMP, serum or plasm a glucose 74 mg/dL 70-100 Not Available [address], [address], 04/26/2018 16:07:42 04/26/20 18 04/26/2018 BMP, serum or plasm a BUN 16 mg/dL 7-18 Not Available [address], [address], 04/26/2018 16:07:42 04/26/20 18 04/26/2018 BMP, serum or plasm a creatinine 1.1 mg/dL 0.8-1. 3 Not Available [address], [address], 04/26/2018 16:07:42 04/26/20 18 04/26/2018 BMP, serum or plasm a B/C 14.5 ratio Not Available [address], [address], 04/26/2018 16:07:42 04/26/20 18 04/26/2018 BMP, serum or plasm a GFR -non 55.5 mL/mi n Recom zhane d GFR by the [facility] >60 mL/mi n/1.7 3m2 - Patricia l <60 mL/mi n/1.7 3m2 - Chron ic Kidne y Disea se <15 mL/mi n/1.7 3m2 - Kidne y Failu re Not Available [address], [address], 04/26/2018 16:07:42 04/26/20 18 04/26/2018 BMP, serum or plasm a GFR - if 63.8 mL/mi n For Afric an Ameri can patie nts: Resul ts Multi plied by 1.21 Not Available [address], [address], 04/26/2018 16:07:42 04/26/20 18 04/26/2018 BMP, serum or plasm a sodium 143 mmol/ L 136-14 5 Not Available [address], [address], 04/26/2018 16:07:42 04/26/20 18 04/26/2018 BMP, serum or plasm a potassium 4.6 mmol/ L 3.5-5. 1 Not Available [address], [address], 04/26/2018 16:07:42 04/26/20 18 04/26/2018 BMP, serum or plasm a chloride 105 mmol/ L 96-107 Not Available [address], [address], 04/26/2018 16:07:42 04/26/20 18 04/26/2018 BMP, serum or plasm a anion gap 11.1 5.0-15 .0 Not Available [address], [address], 04/26/2018 16:07:42 04/26/20 18 04/26/2018 BMP, serum or plasm a CO2 27 mmol/ L 21-32 Not Available [address], [address], 04/26/2018 16:07:42 04/26/20 18 04/26/2018 BMP, serum or plasm a calcium 9.2 mg/dL 8.5-10 .3 Not Available [address], [address], 04/26/2018 16:07:42 04/26/20 18 04/26/2018 lipid panel , serum cholesterol 106 mg/dL <200 mg/dl Avelino able 200-2 39 mg/dl Borde rline High >240 mg/dl High Not Available [address], [address], 04/26/2018 16:07:44 04/26/20 18 04/26/2018 lipid panel , serum triglyceride s 184 mg/dL <150 mg/dL Patricia l 150-1 99 mg/dL Borde rline High 200-4 99 mg/dL High >500 mg/dL Very High Not Available [address], [address], 04/26/2018 16:07:44 04/26/20 18 04/26/2018 lipid panel , serum direct HDL 39 mg/dL <40 mg/dl - Major Risk for CHD >60 mg/dl - Negat jeannette Risk for CHD Not Available [address], [address], 04/26/2018 16:07:44 04/26/20 18 04/26/2018 LDL, calcu lated , serum (OBS) LDL - calculated 30.2 RISK CATEG ORY LDL GOAL _ CHD or CHD Risk Equiv alent s <100 mg/dl (10-y ear risk >20%) 2+ Risk Facto rs <130 mg/dl (10-y ear risk <= 20%) 0-1 Risk Facto r <160 mg/dl [facility] peopl e with 0-1 risk facto r have a 10 year risk <10%, thus 10 year risk asses ment in peopl e with 0-1 risk facto r is not necpierce olivia. Not Available [address], [address], 04/26/2018 16:07:45 04/26/20 18 04/26/2018 AST/S GOT (aspa rtate amino trans feras e), serum or plasm a AST 18 U/L 15-37 Not Available [address], [address], 04/26/2018 16:25:23 04/26/20 18 04/26/2018 ALT (karen ine amino trans feras e), serum or plasm a ALT 26 U/L 30-65 low Not Available [address], [address], 04/26/2018 16:25:24 04/30/20 18 04/30/2018 CBC WBC 8.9 K/ L 4.0-10 .0 Not Available [address], [address], 04/30/2018 14:43:04 04/30/20 18 04/30/2018 CBC RBC 4.13 M/ L 3.93-5 .22 Not Available [address], [address], 04/30/2018 14:43:04 04/30/20 18 04/30/2018 CBC HGB 11.9 g/dL 11.2-1 5.7 Not Available [address], [address], 04/30/2018 14:43:04 04/30/20 18 04/30/2018 CBC HCT 35.9 % 34.1-4 4.9 Not Available [address], [address], 04/30/2018 14:43:04 04/30/20 18 04/30/2018 CBC MCV 86.9 L 79.4-9 4.8 Not Available [address], [address], 04/30/2018 14:43:04 04/30/20 18 04/30/2018 CBC MCH 28.8 pg 25.6-3 2.2 Not Available [address], [address], 04/30/2018 14:43:04 04/30/20 18 04/30/2018 CBC MCHC 33.1 g/dL 32.2-3 5.5 Not Available [address], [address], 04/30/2018 14:43:04 04/30/20 18 04/30/2018 CBC plt 290.0 K/ L 182.0- 369.0 Not Available [address], [address], 04/30/2018 14:43:04 04/30/20 18 04/30/2018 CBC MPV 11.7 9.4-12 .3 Not Available [address], [address], 04/30/2018 14:43:04 04/30/20 18 04/30/2018 CBC neut% 78.8 % 34.0-7 1.1 high Not Available [address], [address], 04/30/2018 14:43:04 04/30/20 18 04/30/2018 CBC neut# 7.0 1.6-6. 1 high Not Available [address], [address], 04/30/2018 14:43:04 04/30/20 18 04/30/2018 CBC lymph % 14.1 % 19.3-5 1.7 low Not Available [address], [address], 04/30/2018 14:43:04 04/30/20 18 04/30/2018 CBC lymph # 1.3 K/ L 1.2-3. 7 Not Available [address], [address], 04/30/2018 14:43:04 04/30/20 18 04/30/2018 CBC mono% 5.2 % 4.7-12 .5 Not Available [address], [address], 04/30/2018 14:43:04 04/30/20 18 04/30/2018 CBC mono# 0.5 0.2-0. 6 Not Available [address], [address], 04/30/2018 14:43:04 04/30/20 18 04/30/2018 CBC eo% 1.4 % 0.7-5. 8 Not Available [address], [address], 04/30/2018 14:43:04 04/30/20 18 04/30/2018 CBC eo# 0.1 0.0-0. 4 Not Available [address], [address], 04/30/2018 14:43:04 04/30/20 18 04/30/2018 CBC baso% 0.5 % 0.1-1. 2 Not Available [address], [address], 04/30/2018 14:43:04 04/30/20 18 04/30/2018 CBC baso# 0.0 0.0-0. 1 Not Available [address], [address], 04/30/2018 14:43:04 04/30/20 18 04/30/2018 CBC RDW-CV 14.0 % 11.7-1 4.4 Not Available [address], [address], 04/30/2018 14:43:04 04/30/20 18 04/30/2018 TSH, serum or plasm a TSH 2.29 uIU/m L 0.50-6 .00 The Ameri can Colle ge of Endoc rinol ogy and Ameri can Thyro id Assoc iatio n recom mend goal TSH value s betwe en 0.4-4 .0 mIU/m L. Not Available [facility] [address] [facility], [place], [address], 04/30/2018 16:26:11 06/12/20 18 06/12/2018 CBC w/ auto diff WBC 13.71 K/uL 3.40-1 1.20 high Not Available [facility] [address] [place] [address], [address], 06/12/2018 14:19:14 06/12/20 18 06/12/2018 CBC w/ auto diff RBC 4.19 M/uL 3.80-4 .80 Not Available [facility] [address] [place] [address], [address], 06/12/2018 14:19:14 06/12/20 18 06/12/2018 CBC w/ auto diff HGB 12.0 g/dL 12.0-1 5.0 Not Available [facility] [address] [place] [address], [address], 06/12/2018 14:19:14 06/12/20 18 06/12/2018 CBC w/ auto diff HCT 35.1 % 36.0-4 6.0 low Not Available [facility] [address] [place] [address], [address], 06/12/2018 14:19:14 06/12/20 18 06/12/2018 CBC w/ auto diff plt 285 K/uL 130-40 0 Not Available [facility] [address] [place] [address], [address], 06/12/2018 14:19:14 06/12/20 18 06/12/2018 CBC w/ auto diff MCV 83.8 fL 79.0-9 8.0 Not Available [facility] [address] [place] [address], [address], 06/12/2018 14:19:14 06/12/20 18 06/12/2018 CBC w/ auto diff MCH 28.6 pg 27.0-3 4.8 Not Available [facility] [address] [place], [address], 06/12/2018 14:19:14 06/12/20 18 06/12/2018 CBC w/ auto diff MCHC 34.2 g/dL 31.5-3 6.0 Not Available [facility] [address] [place], [address], 06/12/2018 14:19:14 06/12/20 18 06/12/2018 CBC w/ auto diff RDW 13.2 % 10.8-1 4.6 Not Available [facility] [address] [place], [address], 06/12/2018 14:19:14 06/12/20 18 06/12/2018 CBC w/ auto diff MPV 11.6 fL 9.4-12 .4 Not Available [facility] [address] [place], [address], 06/12/2018 14:19:14 06/12/20 18 06/12/2018 CBC w/ auto diff NRBC 0.00 /100_ WBCs 0.00 Not Available [facility] [address] [place], [address], 06/12/2018 14:19:14 06/12/20 18 06/12/2018 CBC w/ auto diff absolute NRBC 0.00 K/uL 0.00 Not Available [facility] [address] [place], [address], 06/12/2018 14:19:14 06/12/20 18 06/12/2018 CBC w/ auto diff diff method Auto Not Available [facility] [address] [place], [address], 06/12/2018 14:19:14 06/12/20 18 06/12/2018 CBC w/ auto diff neuts 84.8 % 45.30- 77.70 high Not Available [facility] [address] [place], [address], 06/12/2018 14:19:14 06/12/20 18 06/12/2018 CBC w/ auto diff lymphs 9.0 % 12.30- 39.70 low Not Available [facility] [address] [place] [address], [address], 06/12/2018 14:19:14 06/12/20 18 06/12/2018 CBC w/ auto diff monos 4.2 % 4.10-1 2.80 Not Available [facility] [address] [place] [address], [address], 06/12/2018 14:19:14 06/12/20 18 06/12/2018 CBC w/ auto diff eos 0.9 % 0-7.2 Not Available [facility] [address] [place] [address], [address], 06/12/2018 14:19:14 06/12/20 18 06/12/2018 CBC w/ auto diff basos 0.7 % 0-2.80 Not Available [facility] [address] [place] [address], [address], 06/12/2018 14:19:14 06/12/20 18 06/12/2018 CBC w/ auto diff granulocytes , immature (%) 0.4 % 0.0-0. 9 Not Available [facility] [address] [place], [address], 06/12/2018 14:19:14 06/12/20 18 06/12/2018 CBC w/ auto diff absolute neuts 11.63 K/uL 1.40-7 .70 high Not Available [facility] [address] [place] [address], [address], 06/12/2018 14:19:14 06/12/20 18 06/12/2018 CBC w/ auto diff absolute lymphs 1.24 K/uL 0.60-3 .20 Not Available [facility] [address] [place], [address], 06/12/2018 14:19:14 06/12/20 18 06/12/2018 CBC w/ auto diff absolute monos 0.57 K/uL 0.11-0 .59 Not Available [facility] [address] [place], [address], 06/12/2018 14:19:14 06/12/20 18 06/12/2018 CBC w/ auto diff absolute eos 0.13 K/uL 0.01-0 .50 Not Available [facility] [address] [place], [address], 06/12/2018 14:19:14 06/12/20 18 06/12/2018 CBC w/ auto diff absolute basos 0.09 K/uL 0.00-0 .08 high Not Available [facility] [address] [place], [address], 06/12/2018 14:19:14 06/12/20 18 06/12/2018 CBC w/ auto diff granulocytes , immature 0.05 K/uL 0.00-0 .05 Not Available [facility] [address] [place] [address], [address], 06/12/2018 14:19:14 06/12/20 18 06/12/2018 CMP, serum or plasm a sodium 139 mmol/ L 133-14 6 Not Available [facility] [address] [place] [address], [address], 06/12/2018 15:13:28 06/12/20 18 06/12/2018 CMP, serum or plasm a potassium 4.6 mmol/ L 3.3-5. 1 Not Available [facility] [address] [place], [address], 06/12/2018 15:13:28 06/12/20 18 06/12/2018 CMP, serum or plasm a chloride 99 mmol/ L 96-108 Not Available [facility] [address] [place], [address], 06/12/2018 15:13:28 06/12/20 18 06/12/2018 CMP, serum or plasm a CO2 28 mmol/ L 21-35 Not Available [facility] [address] [place], [address], 06/12/2018 15:13:28 06/12/20 18 06/12/2018 CMP, serum or plasm a BUN 22 mg/dL 6-19 high Not Available [facility] [address] [place], [address], 06/12/2018 15:13:28 06/12/20 18 06/12/2018 CMP, serum or plasm a creatinine 0.90 mg/dL 0.5-1. 5 Not Available [facility] [address] [place], [address], 06/12/2018 15:13:28 06/12/20 18 06/12/2018 CMP, serum or plasm a glucose 104 mg/dL 70-99 high Not Available [facility] [address] [place], [address], 06/12/2018 15:13:28 06/12/20 18 06/12/2018 CMP, serum or plasm a albumin 4.4 g/dL 3.9-4. 8 Not Available [facility] [address] [place], [address], 06/12/2018 15:13:28 06/12/20 18 06/12/2018 CMP, serum or plasm a total protein 6.9 g/dL 6.5-8. 0 Not Available [facility] [address] [place], [address], 06/12/2018 15:13:28 06/12/20 18 06/12/2018 CMP, serum or plasm a calcium 9.3 mg/dL 8.4-10 .3 Not Available [facility] [address] [place], [address], 06/12/2018 15:13:28 06/12/20 18 06/12/2018 CMP, serum or plasm a alkaline phosphatase 82 U/L 39-117 Not Available [facility] [address] [place] [address], [address], 06/12/2018 15:13:28 06/12/20 18 06/12/2018 CMP, serum or plasm a total bilirubin 0.4 mg/dL 0.0-1. 2 Not Available [facility] [address] [place] [address], [address], 06/12/2018 15:13:28 06/12/20 18 06/12/2018 CMP, serum or plasm a AST 16 U/L 0-37 Not Available [facility] [address] [place], [address], 06/12/2018 15:13:28 06/12/20 18 06/12/2018 CMP, serum or plasm a ALT 18 U/L 0-40 Not Available [facility] [address] [place], [address], 06/12/2018 15:13:28 06/12/20 18 06/12/2018 CMP, serum or plasm a globulin 2.5 g/dL 1-4.8 Not Available [facility] [address] [place], [address], 06/12/2018 15:13:28 06/12/20 18 06/12/2018 CMP, serum or plasm a eGFR 66 mL/mi n/1.7 3m2 >59 If patie nt is black , multi ply resul t by 1.159 . Estim ated glome rular filtr ation rate calcu lated using the CKD-E PI equat ion. Not Available [facility] [address] [place] [address], [address], 06/12/2018 15:13:28 06/12/20 18 06/12/2018 CMP, serum or plasm a anion gap 17 mmol/ L 10-20 Not Available [facility] [address] [place], [address], 06/12/2018 15:13:28 06/12/20 18 06/12/2018 C-andra ctive prote in, quant itati ve, serum or plasm a C reactive protein 3.3 mg/L 0.0-4. 0 Not Available [facility] [address] [place] [address], [address], 06/12/2018 15:13:30 06/12/20 18 06/13/2018 HBsAg (hepa titis B surfa ce Ag), serum HBV surface antigen Negati ve negati ve Not Available [facility] [address] [place] [address], [address], 06/13/2018 10:03:22 06/12/20 18 06/13/2018 hepat itis B virus core Ab, quali tativ e, serum hep B core Ab, tot Negati ve negati ve Not Available [facility] [address] [place], [address], 06/13/2018 10:03:24 06/12/20 18 06/14/2018 tb (M [...] a level <0.35 IU/mL . Not Available [facility] [address] [place] [address], [address], 06/14/2018 19:02:21 06/12/20 18 06/14/2018 tb (M tuber culos is), ifn-g deonte sai , blood TB1 Ag minus nil 0.11 IU/mL Not Available [facility] [address] [place] [address], [address], 06/14/2018 19:02:21 06/12/20 18 06/14/2018 tb (M tuber culos is), ifn-g deonte sai , blood TB2 Ag minus nil 0.00 IU/mL Not Available [facility] [address] [place] [address], [address], 06/14/2018 19:02:21 06/12/20 18 06/14/2018 tb (M tuber culos is), ifn-g deonte sai , blood mitogen minus nil 2.75 IU/mL Not Available [facility] [address] [place] [address], [address], 06/14/2018 19:02:21 06/12/20 18 06/14/2018 tb (M tuber culos is), ifn-g deonte sai , blood nil result 0.01 IU/mL Not Available [facility] [address] [place] [address], [address], 06/14/2018 19:02:21 10/18/19 19 10/17/2018 CBC w/ auto diff WBC 10.03 K/uL 3.40-1 1.20 Not Available [facility] [address] [place], [address], 10/17/2018 15:41:19 10/18/19 19 10/17/2018 CBC w/ auto diff RBC 4.02 M/uL 3.80-4 .80 Not Available [facility] [address] [place] [address], [address], 10/17/2018 15:41:19 10/18/19 19 10/17/2018 CBC w/ auto diff HGB 11.9 g/dL 12.0-1 5.0 low Not Available [facility] [address] [place] [address], [address], 10/17/2018 15:41:19 10/18/19 19 10/17/2018 CBC w/ auto diff HCT 35.2 % 36.0-4 6.0 low Not Available [facility] [address] [place] [address], [address], 10/17/2018 15:41:19 10/18/19 19 10/17/2018 CBC w/ auto diff plt 236 K/uL 130-40 0 Not Available [facility] [address] [place] [address], [address], 10/17/2018 15:41:19 10/18/19 19 10/17/2018 CBC w/ auto diff MCV 87.6 fL 79.0-9 8.0 Not Available [facility] [address] [place] [address], [address], 10/17/2018 15:41:19 10/18/19 19 10/17/2018 CBC w/ auto diff MCH 29.6 pg 27.0-3 4.8 Not Available [facility] [address] [place], [address], 10/17/2018 15:41:19 10/18/19 19 10/17/2018 CBC w/ auto diff MCHC 33.8 g/dL 31.5-3 6.0 Not Available [facility] [address] [place], [address], 10/17/2018 15:41:19 10/18/19 19 10/17/2018 CBC w/ auto diff RDW 12.9 % 10.8-1 4.6 Not Available [facility] [address] [place], [address], 10/17/2018 15:41:19 10/18/19 19 10/17/2018 CBC w/ auto diff MPV 11.0 fL 9.4-12 .4 Not Available [facility] [address] [place], [address], 10/17/2018 15:41:19 10/18/19 19 10/17/2018 CBC w/ auto diff NRBC 0.00 /100_ WBCs 0.00 Not Available [facility] [address] [place], [address], 10/17/2018 15:41:19 10/18/19 19 10/17/2018 CBC w/ auto diff absolute NRBC 0.00 K/uL 0.00 Not Available [facility] [address] [place], [address], 10/17/2018 15:41:19 10/18/19 19 10/17/2018 CBC w/ auto diff diff method Auto Not Available [facility] [address] [place], [address], 10/17/2018 15:41:19 10/18/19 19 10/17/2018 CBC w/ auto diff neuts 70.1 % 45.30- 77.70 Not Available [facility] [address] [place], [address], 10/17/2018 15:41:19 10/18/19 19 10/17/2018 CBC w/ auto diff lymphs 18.2 % 12.30- 39.70 Not Available [facility] [address] [place] [address], [address], 10/17/2018 15:41:19 10/18/19 19 10/17/2018 CBC w/ auto diff monos 7.4 % 4.10-1 2.80 Not Available [facility] [address] [place] [address], [address], 10/17/2018 15:41:19 10/18/19 19 10/17/2018 CBC w/ auto diff eos 2.8 % 0-7.2 Not Available [facility] [address] [place] [address], [address], 10/17/2018 15:41:19 10/18/19 19 10/17/2018 CBC w/ auto diff basos 1.1 % 0-2.80 Not Available [facility] [address] [place] [address], [address], 10/17/2018 15:41:19 10/18/1910/17/2018 CBC w/ auto diff granulocytes , immature (%) 0.4 % 0.0-0. 9 Not Available [facility] [address] [place] [address], [address], 10/17/2018 15:41:19 10/18/1910/17/2018 CBC w/ auto diff absolute neuts 7.03 K/uL 1.40-7 .70 Not Available [facility] (Outpatient) [address] [place] [address], [id number], 10/17/2018 15:41:19 10/18/19 19 10/17/2018 CBC w/ auto diff absolute lymphs 1.83 K/uL 0.60-3 .20 Not Available [facility] (Outpatient) [address] [place], [id number], 10/17/2018 15:41:19 10/18/19 19 10/17/2018 CBC w/ auto diff absolute monos 0.74 K/uL 0.11-0 .59 high Not Available [facility] (Outpatient) [address] [place], [address], 10/17/2018 15:41:19 10/18/19 19 10/17/2018 CBC w/ auto diff absolute eos 0.28 K/uL 0.01-0 .50 Not Available [facility] (Outpatient) [address] [place], [id number], 10/17/2018 15:41:19 10/18/19 19 10/17/2018 CBC w/ auto diff absolute basos 0.11 K/uL 0.00-0 .08 high Not Available [facility] (Outpatient) [address] [place], [address], 10/17/2018 15:41:19 10/18/19 19 10/17/2018 CBC w/ auto diff granulocytes , immature 0.04 K/uL 0.00-0 .05 Not Available [facility] (Out[facility] [address] [place], [address], 10/17/2018 15:41:19 10/18/19 19 10/17/2018 eryth rocyt e sedim entat ion rate by prema sanchezo d ESR 5 mm/h 0-30 Not Available [facility] (Outpatient) [address] [place], [address], 10/17/2018 16:22:09 10/18/19 19 10/17/2018 CMP, serum or plasm a sodium 143 mmol/ L 133-14 6 Not Available [facility] (Outpatient) [address] [place], [address], 10/17/2018 16:48:20 10/18/19 19 10/17/2018 CMP, serum or plasm a potassium 4.3 mmol/ L 3.3-5. 1 Not Available [facility] (Outpatient) [address] [place], [address], 10/17/2018 16:48:20 10/18/19 19 10/17/2018 CMP, serum or plasm a chloride 104 mmol/ L 96-108 Not Available [facility] (Outpatient) [address] [place], [address], 10/17/2018 16:48:20 10/18/19 19 10/17/2018 CMP, serum or plasm a CO2 26 mmol/ L 21-35 Not Available [facility] (Out[facility]) [address] [place], [address], 10/17/2018 16:48:20 10/18/19 19 10/17/2018 CMP, serum or plasm a BUN 28 mg/dL 6-19 high Not Available [facility] (Outpatient) [address] [place], [address], 10/17/2018 16:48:20 10/18/19 19 10/17/2018 CMP, serum or plasm a creatinine 1.00 mg/dL 0.5-1. 5 Not Available [facility] ([facility]) [address] [place], [address], 10/17/2018 16:48:20 10/18/19 19 10/17/2018 CMP, serum or plasm a glucose 127 mg/dL 70-99 high Not Available [facility] ([facility]) [address] [place], [address], 10/17/2018 16:48:20 10/18/19 19 10/17/2018 CMP, serum or plasm a albumin 4.3 g/dL 3.9-4. 8 Not Available [facility] ([facility]) [address] [place], [address], 10/17/2018 16:48:20 10/18/19 19 10/17/2018 CMP, serum or plasm a total protein 6.9 g/dL 6.5-8. 0 Not Available [facility] (Outpatient) [address] [place], [address], 10/17/2018 16:48:20 10/18/19 19 10/17/2018 CMP, serum or plasm a calcium 9.5 mg/dL 8.4-10 .3 Not Available [facility] ([facility] [address] [place], [address], 10/17/2018 16:48:20 10/18/19 19 10/17/2018 CMP, serum or plasm a alkaline phosphatase 74 U/L 39-117 Not Available [facility] (Outpatient) [address] [place], [address], 10/17/2018 16:48:20 10/18/19 19 10/17/2018 CMP, serum or plasm a total bilirubin 0.3 mg/dL 0.0-1. 2 Not Available [facility] ([facility] [address] [place], [address], 10/17/2018 16:48:20 10/18/19 19 10/17/2018 CMP, serum or plasm a AST 19 U/L 0-37 Not Available [facility] ([facility]) [address] [place] [address], [address], 10/17/2018 16:48:20 10/18/19 19 10/17/2018 CMP, serum or plasm a ALT 17 U/L 0-40 Not Available [facility] ([facility] [address] [place], [address], 10/17/2018 16:48:20 10/18/19 19 10/17/2018 CMP, serum or plasm a globulin 2.6 g/dL 1-4.8 Not Available [facility] ([facility]) [address] [place], [address], 10/17/2018 16:48:20 10/18/19 19 10/17/2018 CMP, serum or plasm a eGFR 58 mL/mi n/1.7 3m2 >59 low If patie nt is black , multi ply resul t by 1.159 . Estim ated glome rular filtr ation rate calcu lated using the CKD-E PI equat ion. Not Available [facility] ([facility]) [address] [place], [address], 10/17/2018 16:48:20 10/18/19 19 10/17/2018 CMP, serum or plasm a anion gap 17 mmol/ L 10-20 Not Available [facility]) [address] [place] [address], [address], 10/17/2018 16:48:20 10/18/19 19 10/17/2018 C-andra ctive prote in, quant itati ve, serum or plasm a C reactive protein 6.2 mg/L 0.0-4. 0 high Not Available [facility]) [address] [place] [address], [address], 10/17/2018 16:48:21 01/17/20 19 01/16/2019 CBC w/ auto diff WBC 10.98 K/uL 3.40-1 1.20 Not Available [facility] [address] [place] [address], [address], 01/16/2019 16:23:22 01/17/20 19 01/16/2019 CBC w/ auto diff RBC 4.04 M/uL 3.80-4 .80 Not Available [facility] [address] [place] [address], [address], 01/16/2019 16:23:22 01/17/20 19 01/16/2019 CBC w/ auto diff HGB 11.9 g/dL 12.0-1 5.0 low Not Available [facility] ([facility] [address] [place], [address], 01/16/2019 16:23:22 01/17/20 19 01/16/2019 CBC w/ auto diff HCT 35.3 % 36.0-4 6.0 low Not Available [facility] ([facility] [address] [place], [address], 01/16/2019 16:23:22 01/17/20 19 01/16/2019 CBC w/ auto diff plt 274 K/uL 130-40 0 Not Available [facility] ([facility] [address] [place], [address], 01/16/2019 16:23:22 01/17/20 19 01/16/2019 CBC w/ auto diff MCV 87.4 fL 79.0-9 8.0 Not Available [facility] ([facility]) [address] [place], [address], 01/16/2019 16:23:22 01/17/20 19 01/16/2019 CBC w/ auto diff MCH 29.5 pg 27.0-3 4.8 Not Available [facility] ([facility]) [address] [place], [address], 01/16/2019 16:23:22 01/17/20 19 01/16/2019 CBC w/ auto diff MCHC 33.7 g/dL 31.5-3 6.0 Not Available [facility] ([facility] [address] [place], [address], 01/16/2019 16:23:22 01/17/20 19 01/16/2019 CBC w/ auto diff RDW 13.3 % 10.8-1 4.6 Not Available [facility] ([facility] [address] [place], [address], 01/16/2019 16:23:22 01/17/20 19 01/16/2019 CBC w/ auto diff MPV 11.7 fL 9.4-12 .4 Not Available [facility] ([facility]) [address] [place], [address], 01/16/2019 16:23:22 01/17/20 19 01/16/2019 CBC w/ auto diff NRBC 0.00 /100_ WBCs 0.00 Not Available [facility] ([facility] [address] [place], [address], 01/16/2019 16:23:22 01/17/20 19 01/16/2019 CBC w/ auto diff absolute NRBC 0.00 K/uL 0.00 Not Available [facility] [address] [place], [address], 01/16/2019 16:23:22 01/17/20 19 01/16/2019 CBC w/ auto diff diff method Auto Not Available [facility] [address] [place] [address], [address], 01/16/2019 16:23:22 01/17/20 19 01/16/2019 CBC w/ auto diff neuts 81.4 % 45.30- 77.70 high Not Available [facility] [address] [place], [address], 01/16/2019 16:23:22 01/17/20 19 01/16/2019 CBC w/ auto diff lymphs 10.6 % 12.30- 39.70 low Not Available [facility] ([facility]) [address] [place], [address], 01/16/2019 16:23:22 01/17/20 19 01/16/2019 CBC w/ auto diff monos 4.7 % 4.10-1 2.80 Not Available [facility] ([facility] [address] [place], [address], 01/16/2019 16:23:22 01/17/20 19 01/16/2019 CBC w/ auto diff eos 2.0 % 0-7.2 Not Available [facility] ([facility] [address] [place], [address], 01/16/2019 16:23:22 01/17/20 19 01/16/2019 CBC w/ auto diff basos 1.0 % 0-2.80 Not Available [facility] ([facility]) [address] [place], [address], 01/16/2019 16:23:22 01/17/20 19 01/16/2019 CBC w/ auto diff granulocytes , immature (%) 0.3 % 0.0-0. 9 Not Available [facility] ([facility] [address] [place], [address], 01/16/2019 16:23:22 01/17/20 19 01/16/2019 CBC w/ auto diff absolute neuts 8.94 K/uL 1.40-7 .70 high Not Available [facility] ([facility]) [address] [place], [address], 01/16/2019 16:23:22 01/17/20 19 01/16/2019 CBC w/ auto diff absolute lymphs 1.16 K/uL 0.60-3 .20 Not Available [facility] ([facility]) [address] [place], [address], 01/16/2019 16:23:22 01/17/20 19 01/16/2019 CBC w/ auto diff absolute monos 0.52 K/uL 0.11-0 .59 Not Available [facility] ([facility]) [address] [place], [address], 01/16/2019 16:23:22 01/17/20 19 01/16/2019 CBC w/ auto diff absolute eos 0.22 K/uL 0.01-0 .50 Not Available [facility] ([facility]) [address] [place], [address], 01/16/2019 16:23:22 01/17/20 19 01/16/2019 CBC w/ auto diff absolute basos 0.11 K/uL 0.00-0 .08 high Not Available [facility] ([facility]) [address] [place], [address], 01/16/2019 16:23:22 01/17/20 19 01/16/2019 CBC w/ auto diff granulocytes , immature 0.03 K/uL 0.00-0 .05 Not Available [facility] ([facility]) [address] [place], [address], 01/16/2019 16:23:22 01/17/20 19 01/16/2019 eryth rocyt e sedim entat ion rate by prema sanchezo d ESR 9 mm/h 0-30 Not Available [facility] ([facility]) [address] [place], [address], 01/16/2019 17:39:50 01/17/20 19 01/16/2019 C-andra ctive prote in, quant itati ve, serum or plasm a C reactive protein 5.2 mg/L 0.0-4. 0 high Not Available [facility] ([facility]) [address] [place], [address], 01/16/2019 18:50:56 01/17/20 19 01/16/2019 CMP, serum or plasm a sodium 141 mmol/ L 133-14 6 Not Available [facility] ([facility]) [address] [place], [address], 01/16/2019 22:11:00 01/17/20 19 01/16/2019 CMP, serum or plasm a potassium 4.4 mmol/ L 3.3-5. 1 Not Available [facility] ([facility]) [address] [place], [address], 01/16/2019 22:11:00 01/17/20 19 01/16/2019 CMP, serum or plasm a chloride 102 mmol/ L 96-108 Not Available [facility] ([facility]) [address] [place], [address], 01/16/2019 22:11:00 01/17/20 19 01/16/2019 CMP, serum or plasm a CO2 23 mmol/ L 21-35 Not Available [facility] ([facility]) [address] [place], [address], 01/16/2019 22:11:00 01/17/20 19 01/16/2019 CMP, serum or plasm a BUN 23 mg/dL 6-19 high Not Available [facility] ([facility]) [address] [place], [address], 01/16/2019 22:11:00 01/17/20 19 01/16/2019 CMP, serum or plasm a creatinine 1.50 mg/dL 0.5-1. 5 Not Available [facility] ([facility]) [address] [place], [address], 01/16/2019 22:11:00 01/17/20 19 01/16/2019 CMP, serum or plasm a glucose 161 mg/dL 70-99 high Not Available [facility] ([facility]) [address] [place], [address], 01/16/2019 22:11:00 01/17/20 19 01/16/2019 CMP, serum or plasm a albumin 4.0 g/dL 3.9-4. 8 Not Available [facility] (Out[facility]) [address] [place], [address], 01/16/2019 22:11:00 01/17/20 19 01/16/2019 CMP, serum or plasm a total protein 6.8 g/dL 6.5-8. 0 Not Available [facility] ([facility]) [address] [place], [address], 01/16/2019 22:11:00 01/17/20 19 01/16/2019 CMP, serum or plasm a calcium 9.0 mg/dL 8.4-10 .3 Not Available [facility] (Out[facility]) [address] [place], [address], 01/16/2019 22:11:00 01/17/20 19 01/16/2019 CMP, serum or plasm a alkaline phosphatase 78 U/L 39-117 Not Available [facility] (Out[facility]) [address] [place], [address], 01/16/2019 22:11:00 01/17/20 19 01/16/2019 CMP, serum or plasm a total bilirubin 0.4 mg/dL 0.0-1. 2 Not Available [facility] (Out[facility]) [address] [place] [address], [address], 01/16/2019 22:11:00 01/17/20 19 01/16/2019 CMP, serum or plasm a AST 21 U/L 0-37 Not Available [facility] ([facility]) [address] [place] [address], [address], 01/16/2019 22:11:00 01/17/20 19 01/16/2019 CMP, serum or plasm a ALT 19 U/L 0-40 Not Available [facility] ([facility]) [address] [place] [address], [address], 01/16/2019 22:11:00 01/17/2001/16/2019 CMP, serum or plasm a globulin 2.8 g/dL 1-4.8 Not Available [facility] ([facility]) [address] [place], [address], 01/16/2019 22:11:00 01/17/2001/16/2019 CMP, serum or plasm a eGFR 35 mL/mi n/1.7 3m2 >59 low If patie nt is black , multi ply resul t by 1.159 . Estim ated glome rular filtr ation rate calcu lated using the CKD-E PI equat ion. Not Available [facility] (Out[facility]) [address] [place] [address], [address], 01/16/2019 22:11:00 01/17/20 19 01/16/2019 CMP, serum or plasm a anion gap 20 mmol/ L 10-20 Not Available [facility] (Out[facility]) [address] [place], [address], 01/16/2019 22:11:00 06/12/20 18 06/12/2018 xr chest [...] Final result Pt states sob [facility] [address] [place] [address], [address], 06/12/2018 20:56:35 09/07/19 19 09/06/2018 bd dxa [...] Jane MD 9 Final result NATALIE Kaur [facility] [address] [place], [address], 09/08/2018 18:43:16 Result Notes None recorded. 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 111080420 Active 2017 admitted to [place]; jeromeicatal 11/2017 Natalie Reveles MD [address] [place] [address], [place], [address] [place] [address] 8 20:36:49 Gastroes ophageal reflux disease 948810061 Active 2018 Kassie romo [facility] 9 15:48:05 Mixed hyperlip idemia 243338064 Active 2001 Natalie Reveles MD [address] [place], [place] [address], [address], [facility] 6 12:19:12 Colitis, enteriti s and gastroen teritis presumed infectio us 434256502 Completed 200611/06/2009 Natalie Reveles MD [address] [place], [place] [address], [address], [facility] 6 15:03:24 Nausea 070179404 Completed 200611/06/2009 Natalie Reveles MD [address] [place], [place] [address], [address], [facility] 6 15:03:24 Essentia l hyperten olya 54811360 Completed 200311/06/2009 Natalie Reveles MD [address] [place], [place] [address], [address], [facility] 6 15:03:24 Nausea and vomiting 93879412 Completed 200611/06/2009 Natalie Reveles MD [address] [place], [place] [address], [address], [facility] 6 15:03:24 Cellulit is and abscess of buttock 458955622 Completed 200011/06/2009 Natalie Reveles MD [address] [place], [place] [address], [address], [facility] 6 15:03:24 Urinary tract infectio us disease 05283426 Completed 200711/06/2009 Natalie Reveles MD [address] [place], [place] [address], [address], [facility] 6 15:03:24 Benign essentia l hyperten olya 2550072 Active 2001 Natalie Reveles MD [address] [place], [place] [address], [address], [facility] 6 12:19:12 Acute cystitis 75954151 Completed 200411/06/2009 Natalie Reveles MD [address] [place] [address] Betty Hernán[place], [address], [facility] 6 15:03:24 Acute pain 976907426 Completed 200711/06/2009 Natalie Reveles MD [address] [place] [address] Betty Hernán[place], [address], [facility] 6 15:03:24 Allergic rhinitis 98135450 Completed 200511/06/2009 Natalie Reveles MD [address] [place] [address] Betty Hernán[place], [address], [facility] 6 15:03:24 Osteoart hritis 339430453 Completed 200711/06/2009 Natalie Reveles MD [address] [place] [address] Betty Hernán[place], [address], [facility] 6 15:03:24 Sciatica 95904031 Active 2007 spinal stenosis Natalie Reveles MD [address] [place] [address] Betty Hernán[place], [address], [facility] 6 15:03:24 Diabetic on insulin 141110394 Active Natalie Reveles MD [address] [place] [address] Betty Hernán[place], [address], [facility] 6 12:19:12 Type 2 diabetes 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 complica tion 386026525 Active 2004 Natalie Reveles MD [address] [place], [place] [address], [address], [facility] 6 12:19:12 Anemia 553823532 Completed 200611/06/2009 Natalie Reveles MD [address] [place] [address] Betty Hernán[place], [address], [facility] 6 15:03:24 Acute maxillar y sinusiti s 30399425 Completed 200311/06/2009 Natalie Reveles MD [address] [place] [address] Betty Hernán[place], [address], [facility] 6 15:03:24 Arteriti s 25927343 Completed 200511/06/2009 Natalie Reveles MD [address] [place]án[place], [address], [facility] 6 15:03:24 Uncontro lled type 2 diabetes mellitus 874652626 Completed 200606/12/2013 Natalie Reveles MD [address] [place] [address] Betty Hernán[place], [address], [facility] 6 15:03:24 Generali zed osteoart hritis 633635700 Completed 200006/12/2013 Natalie Reveles MD [address] [place] [address] Betty Hernán[place], [address], [facility] 6 15:03:24 Hyperlip idemia 73234947 Completed 200111/06/2009 Natalie Reveles MD [address] [place] [address] Betty Hernán[place], [address], [facility] 6 15:03:24 Backache 653805919 Completed 200711/06/2009 Natalie Reveles MD [address] [place] [address] Betty Hernán[place], [address], [facility] 6 15:03:24 Malaise and fatigue 564688402 Completed 200111/06/2009 Natalie Reveles MD [address] [place] [address] Betty Hernán[place], [address], [facility] 6 15:03:24 Contact dermatit is 51880231 Completed 11/06/2009 Natalie Reveles MD [address] [place] [address] Betty Hernán[place], [address], [facility] 6 15:03:24 Cough 22764088 Completed 200411/06/2009 Natalie Reveles MD [address] [place] Hernán[place], [address], [facility] 6 15:03:24 Rheumato id arthriti s 36107525 Active sero-nega gloria Reveles MD [address] [place] [address] [place] Hernán[place], [address], [facility] 6 12:19:12 Fever 030238221 Completed 200611/06/2009 Natalie Reveles MD [address] [place] [address] Betty Hernán[place], [address], [facility] 6 15:03:24 Allergic asthma without status asthmati cus 08142820 Active 2002 Natalie Reveles MD [address] [place] [address] Betty Hernán[place], [address], [facility] 6 15:03:24 Acute sinusiti s 20209034 Completed 05/14/2013 Natalie Reveles MD [address] [place] [address] Betty Hernán[place], [address], [facility] 6 15:03:24 Common cold 30629607 Completed 200211/06/2009 Natalie Reveles MD [address] [place] [address] Betty Hernán[place], [address], [facility] 6 15:03:24 Common cold 40874260 Completed 05/14/2013 Natalie Reveles MD [address] [place] [address] Betty Hernán[place], [address], [facility] 6 15:03:24 On examinat ion - a rash Completed 200511/06/2009 Natalie Reveles MD [address] [place] [address] Betty Hernán[place], [address], [facility] 6 15:03:24 General symptom 670896739 Completed 200611/06/2009 Natalie Reveles MD [address] [place] [address] Betty Hernán[place], [address], [facility] 6 15:03:24 Blood chemistr y outside referenc e range 108851685 Completed 200311/06/2009 Natalie Reveles MD [address] [place] [address] Betty Hernán[place], [address], [facility] 6 15:03:24 Hypothyr oidism 12373765 Completed 200607/22/2015 Natalie Reveles MD [address] [place], [place] [address], [address], [facility] 6 15:03:24 Mononeeron itis 14534346 Active 2003 Natalie Reveles MD [address] [place], [place] [address], [address], [facility] 6 15:03:24 Primary fibromya lgia syndrome 12065219 Completed 200211/06/2009 Natalie Reveles MD [address] [place], [place] [address], [address], [facility] 6 15:03:24 Vaginiti s and vulvovag initis Completed 200011/06/2009 Natalie Reveles MD [address] [place], [place] [address], [address], [facility] 6 15:03:24 Problem Notes None recorded. Procedures Surgical History Date Name Laterality Status Provider Name and Address Organization Details Recorded Time 9 Medicare Wellness Visit completed Sarah Jewell MA [facility] 12/31/2018 14:43:15 8 Medicare Wellness Visit completed Liz Boyce [facility] 12/27/2017 15:09:17 8 Post hospital/SNF follow-up/[facility] sitional Care completed Liz Boyce CMA [facility] 11/13/2017 14:14:12 8 Nebulizer Tx completed Karmen White LPN [facility] 08/02/2017 14:24:48 7 Medicare Wellness Visit completed Mary Finley MA [facility] 12/25/2016 09:27:15 Imaging Results None recorded. Procedure Notes None recorded. Medical Equipment None Reported. Allergies Allergen ID Allergen Name Allergen Category Reaction Reaction Severity Criticality Documentation Date Start Date Code Code System Note Provider Name and Address Organization Details Recorded Time 885433 doxycycli ne Not available nausea Not available Not available 11/27/2013 3640 RxNorm LISANDRO Galvez [facility] 4 10:10:57 388376 codeine medicatio n nausea Not available Not available 08/17/2015 2670 RxNorm Angelicabaylee Hicks CMA [facility] 6 16:23:36 40045 Substance with sulfonami de structure and antibacte rial mechanism of action (substanc e) medicatio n hives Not available Not available 06/29/2010 16638 8003 SNOMED Not Available [facility] 1 06:05:41 Medications Name Sig Start Date [...] Not Available Not Available No t Available [employer] Ultra Test strips USE TO TEST 3-4 [...] EVERY DAY AT BEDTIME 11/13 completed per [facility] d/c 11/08/17 new dose as follows: 600 [...] index (BMI) Body weight Heart rate Systolic And Diastolic Provider Name and Address Organization Details Last Updated DateTime 08/29/2018 147.95 cm 35.7 kg/m2 81441.69 g 64 /min 90/54 mm[Hg] Marcia Baron [facility] 08/29/2018 11:24:40 Date Recorded Systolic And Diastolic Systolic And Diastolic Provider Name and Address Organization Details Last Updated DateTime 12/31/2018 120/60 mm[Hg] 120/60 mm[Hg] Kassie Mcmillanan [facility] 12/31/2018 15:58:43 Date Recorded Body height Body mass index (BMI) Body weight Oxygen saturation Oxygen saturation in Arterial blood by Pulse oximetry Heart rate Systolic And Diastolic Provider Name and Address Organization Details Last Updated DateTime 9 147.95 cm 36.3 kg/m2 38913.7 6 g 96 % 96 % 76 /min 120/62 mm[Hg] Sarah Jewell [facility] 9 14:52:36 Date Recorded Body height Body mass index (BMI) Body weight Body temperature Heart rate Oxygen saturation Oxygen saturation in Arterial blood by Pulse oximetry Systolic And Diastolic Provider Name and Address Organization Details Last Updated DateTime 9 147.95 cm 35.9 kg/m2 17680.5 8 g 97.9 [degF] 88 /min 96 % 96 % 114/62 mm[Hg] Brooks laurent [facility] 9 09:44:29 Date Recorded Body height Body mass index (BMI) Body weight Heart rate Oxygen saturation Oxygen saturation in Arterial blood by Pulse oximetry Systolic And Diastolic Provider Name and Address Organization Details Last Updated DateTime 8 147.95 cm 35.9 kg/m2 19080.1 8 g 80 /min 97 % 97 % 126/74 mm[Hg] Sarah Jewell [facility] 8 10:50:58 Social History Question Answer Notes LastModified by Organizat ion Details LastModified Time Tobacco Smoking Status Never Smoker Not Available [employer] 05/11/2011 04:54:19 Do You Have An Advance Directive? No Information not available 12/11/2013 Do You Wear A Helmet When Biking? No Information not available 06/23/2014 What Is Your Level Of Caffeine Consumption? Moderate 4 Cups Tea Daily [email or web address] Information not available 12/27/2017 How Much Tobacco [...] used smokeless tobacco? Never used smokeless tobacco [email or web address] Information not available 02/20/2019 What is your occupation? Retired Health Information AARON jordan Information not available 12/31/2018 Do you or have you ever used e-cigarettes or vape? Never used electronic cigarettes [email or web address] Information not available 02/20/2019 Mental Status None [...] influenza, unspecified formulation 0 completed Not Available [facility] 05/10/2011 05:22:52 Influenza, split virus, trivalent, preservative 1 completed LISANDRO [facility] 05/17/2011 14:09:08 Tdap 1 completed Fang Robison RN [facility] 06/12/2011 16:12:51 influenza, unspecified formulation 2 completed [facility] 05/21/2012 16:38:35 influenza, unspecified formulation 3 completed [facility] 06/12/2013 16:12:54 influenza, unspecified formulation 4 completed [facility] 06/23/2014 15:26:51 influenza, unspecified formulation 5 completed [facility] 04/29/2015 14:13:29 Pneumococcal conjugate PCV 13 [...] virus, quadrivalent, preservative 7 completed Liz Boyce [facility] 05/03/2017 14:36:38 Past Encounters Encounter ID Performer Location Encounter Start Date Encounter Closed Date Diagnosis/Indication Diagnosis SNOMED-CT Code Diagnosis ICD10 Code Diagnosis Note [id number] Natalie Reveles MD , [facility], [address] [place] [address] 09/14/2000 12:00:00 07/15/2008 02:02:29 [id number] Natalie Reveles MD , [facility], [address] [place] [address] 10/16/2000 10:45:00 07/15/2008 02:02:29 [id number] Elvis Grover MD , [facility], [address] [place] [address] 6 02/28/2001 14:15:00 07/15/2008 02:02:29 [id number] Elvis Grover MD , [facility], [address] [place] [address] 03/01/2001 09:45:00 07/15/2008 02:02:29 [id number] Natalie Reveles MD , [facility], [address] [place] [address] 10/22/2001 09:00:00 07/15/2008 02:02:29 [id number] [facility] - [facility] [address] [place] [address] 10/22/2001 10:30:00 07/15/2008 02:02:29 [id number] Natalie Reveles MD , [facility], [address]ICE [address] [place] [address] 12/02/2001 08:19:54 07/15/2008 02:02:29 [id number] [facility] , [address] [address] 12/02/2001 11:21:25 07/15/2008 02:02:29 [id number] [facility] - [facility] [address] [place] [address] 04/24/2002 08:28:24 07/15/2008 02:02:29 [id number] Natalie Reveles MD , [facility], [address]ICE [address] [place] [address] 6 04/30/2002 16:42:20 07/15/2008 02:02:29 [id number] [facility] - [facility] [address] [place] [address] 07/22/2002 09:02:09 07/15/2008 02:02:29 [id number] Natalie Reveles MD , [facility], [address] [place] [address] 6 07/29/2002 16:39:59 07/15/2008 02:02:29 [id number] Natalie Reveles MD , [facility], [address] [place] [address] 6 10/30/2002 11:15:27 07/15/2008 02:02:29 [id number] [facility] - [facility] [address] [place] [address] 10/30/2002 12:12:41 07/15/2008 02:02:29 [id number] Natalie Reveles MD , [facility], [address]ICE [address] [place] [address] 6 12/31/2002 10:02:51 07/15/2008 02:02:29 [id number] [facility] - [address] [address] 12/31/2002 00:00:00 07/15/2008 02:02:29 [id number] [facility] - [address] [address] 01/13/2003 11:28:31 07/15/2008 02:02:29 [id number] [facility] , [facility] [address] [place] [address] 01/15/2003 08:55:54 07/15/2008 02:02:29 [id number] ENRIKE Haq , [facility], [address] [place] [address] 6 07/03/2003 16:41:59 07/04/2003 10:51:01 [id number] Natalie Reveles MD , [facility], [address] [place] [address] 10/13/2003 14:52:44 10/14/2003 08:39:08 [id number] [facility] - [facility] [address] [place] [address] 10/22/2003 08:14:06 10/22/2003 08:14:10 [id number] Natalie Reveles MD , [facility], [address]ICE [address] [place] [address] 12/10/2003 14:34:40 12/12/2003 13:55:58 [id number] [facility] - [address] [address] 03/30/2004 08:05:15 03/30/2004 08:05:20 [id number] Natalie Reveles MD , [facility], [address] [place] [address] 6 07/04/2004 13:43:22 07/04/2004 17:14:21 [id number] Natalie Reveles MD , [facility], [address] [place] [address] 6 07/26/2004 09:25:43 07/27/2004 08:19:25 [id number] Natalie Reveles MD , [facility], [address] [place] [address] 6 08/08/2004 15:52:00 08/09/2004 08:55:32 [id number] Natalie Reveles MD [facility], [address]ICE [address] [place] [address] 09/05/2004 07:59:25 09/05/2004 15:25:12 [id number] ENRIKE Chambers , [facility], [address] [place] [address] 6 09/19/2004 13:51:52 09/19/2004 17:45:01 [id number] [facility] - [facility] [address] [place] [address] 10/05/2004 08:38:59 10/05/2004 08:39:04 [id number] MD RAJEEV Nor[place], [facility], [address] [place] [address] 10/10/2004 07:58:34 10/10/2004 14:31:17 [id number] Valentine Mckenzie NP , [facility], [address] [place] [address] 6 11/03/2004 13:44:09 07/15/2008 02:02:29 [id number] [facility] - [facility] [address] [place] [address] 01/16/2005 08:22:10 01/16/2005 08:22:26 [id number] MD RAJEEV Nor[place], [facility], [address] [place] [address] 01/24/2005 08:00:36 07/15/2008 02:02:29 [id number] [facility] Radiology , [facility] [address] [place] [address] 6 02/13/2005 11:40:53 07/15/2008 02:02:29 [id number] [facility] , [facility] [address] [place] [address] 6 02/13/2005 00:00:00 07/15/2008 02:02:29 [id number] Natalie Reveles MD , [facility], [address] [place] [address] 6 04/12/2005 08:22:15 07/15/2008 02:02:29 [id number] Rocky Lehman MD , [facility], [address] [place] [address] 6 04/28/2005 16:18:32 07/15/2008 02:02:29 [id number] [facility] - [address] [address] 08/22/2005 08:28:59 08/22/2005 08:29:02 [id number] MD RAJEEV Norwood, [facility], [address] [place] [address] 08/28/2005 15:40:14 08/29/2005 08:44:57 [id number] MD RAJEEV Norwood, [facility], [address] [place] [address] 09/21/2005 14:22:16 07/15/2008 02:02:29 [id number] [facility] - [facility] [address] [place] [address] 09/21/2005 15:10:47 09/21/2005 15:11:05 [id number] [facility] - [address] [address] 01/23/2006 08:32:14 01/23/2006 08:32:24 [id number] Natalie Reveles MD , [facility], [address] [place] [address] 6 02/05/2006 11:04:33 02/06/2006 09:17:09 [id number] Natalie Reveles MD , [facility], [address] [place] [address] 6 03/21/2006 10:05:20 03/22/2006 08:20:24 [id number] MD RAJEEV Norwood, [facility], [address] [place] [address] 6 04/04/2006 11:34:15 04/08/2006 09:14:42 [id number] [facility] - [address] [address] 04/25/2006 08:18:53 04/25/2006 08:19:04 [id number] Natalie Reveles MD , [facility], [address] [place] [address] 6 05/03/2006 09:59:10 05/04/2006 08:46:05 [id number] [facility] Radiology , [address] [address] 05/08/2006 08:08:08 07/15/2008 02:02:29 [id number] [facility] , [address] [address] 05/08/2006 00:00:00 07/15/2008 02:02:29 [id number] Natalie Reveles MD , [facility], [address] [place] [address] 07/31/2006 08:56:23 07/31/2006 14:16:09 [id number] [facility] - [address] [address] 07/31/2006 10:36:02 07/31/2006 10:36:06 [id number] MD RAJEEV Norwood, [facility], [address] [place] [address] 08/07/2006 08:36:04 08/08/2006 08:58:07 [id number] [facility] - [address] [address] 6 10/22/2006 08:25:40 10/22/2006 08:25:45 [id number] Natalie Reveles MD , [facility], [address] [place] [address] 6 10/29/2006 07:59:04 10/29/2006 10:37:03 [id number] [facility] - [address] [address] 10/30/2006 08:27:25 10/30/2006 08:27:30 [id number] Elvis Grover MD , [facility], [address]ICE [address] [place] [address] 6 11/26/2006 10:44:18 11/26/2006 15:10:48 [id number] [facility] - [address] [address] 11/26/2006 11:29:37 11/26/2006 11:29:44 [id number] Elvis Grover MD , [facility], [address] [place] [address] 12/06/2006 14:26:14 12/07/2006 08:30:34 [id number] Natalie Reveles MD , [facility], [address] [place] [address] 6 12/10/2006 13:46:03 12/11/2006 09:05:34 [id number] [facility] - [address] [address] 12/10/2006 14:31:03 12/10/2006 14:31:43 [id number] [facility] - [address] [address] 01/04/2007 07:54:29 01/04/2007 07:54:36 [id number] [facility] - [address] [address] 04/08/2007 08:14:44 04/08/2007 08:14:49 [id number] Natalie Reveles MD , [facility], [address] [place] [address] 04/15/2007 16:27:24 04/18/2007 08:58:27 [id number] [facility] Radiology , [facility] [address] [place] [address] 06/29/2007 09:23:36 07/01/2007 09:13:11 [id number] Natalie Reveles MD , [facility], [address] [place] [address] 6 09/20/2007 14:25:55 07/15/2008 02:02:29 [id number] Natalie Reveles MD , [facility], [address] [place] [address] 6 10/08/2007 14:05:16 07/15/2008 02:02:29 [id number] [facility] - [address] [address] 10/29/2007 08:19:39 10/29/2007 08:19:43 [id number] Natalie Reveles MD , [facility], [address]ICE [address] [place] [address] 6 11/05/2007 09:43:59 07/15/2008 02:02:29 [id number] [facility] - [address] [address] 11/12/2007 08:23:38 11/12/2007 08:23:44 [id number] [facility] - [address] [address] 01/17/2008 12:48:01 01/17/2008 12:48:16 [id number] Natalie Reveles MD , [facility], [address]ICE [address] [place] [address] 6 01/24/2008 14:09:47 07/15/2008 02:02:29 [id number] [facility] - [address] [address] 6 01/24/2008 15:39:37 01/24/2008 15:40:02 [id number] [facility] - [address] [address] 6 01/24/2008 00:00:00 07/15/2008 02:02:29 [id number] Natalie Reveles MD , [facility], [address] [place] [address] 6 03/30/2008 10:44:06 07/15/2008 02:02:29 [id number] Abigail catalan, PT Physical Therapy, [address] [address] 03/31/2008 11:58:11 04/01/2008 09:12:25 [id number] Abigail Carmita catalan, PT Physical Therapy, [address] [address] 04/02/2008 08:36:13 04/02/2008 16:25:15 [id number] Abigail Carmita catalan, PT Physical Therapy, [address] [address] 04/07/2008 08:34:12 04/07/2008 14:43:31 [id number] Abigail Carmita catalan, PT Physical Therapy, [address] [address] 04/09/2008 08:37:17 04/09/2008 15:42:30 [id number] Abigail Carmita catalan, PT Physical Therapy, [address] [address] 04/14/2008 08:31:29 04/14/2008 14:21:06 [id number] [facility] - [address] [address] 07/07/2008 11:15:56 07/07/2008 11:16:03 [id number] MD RAJEEV Norwood, [facility], OFFICE [address] [place] [address] 07/14/2008 13:28:43 07/24/2008 13:00:23 [id number] [facility] Radiology , [address] [address] 6 12/19/2008 08:52:20 12/22/2008 14:08:26 [id number] MAGGIE Mendoza, [facility], [address]ICE [address] [place] [address] 06/24/2009 14:39:32 06/24/2009 16:02:12 [id number] MD RAJEEV [place], [facility], [address]ICE [address] [place] [address] 10/25/2009 13:26:11 11/10/2009 13:32:16 [id number] [facility] RADI[facility] Technologi Radiology [address] [address] 10/25/2009 14:29:01 10/26/2009 11:21:38 [id number] MD RAJEEV Nor[place], [facility], [address] [place] [address] 6 06/29/2010 11:23:06 07/26/2010 11:56:31 [id number] Natalie Reveles MD , [facility], [address] [place] [address] 09/22/2010 13:34:57 09/22/2010 17:04:13 [id number] Meghann Ayala NP , [facility], [address] [place] [address] 04/05/2011 09:42:34 04/05/2011 10:07:18 [id number] Oscar Islas MD , [facility], [address] [place] [address] 04/10/2011 09:24:01 04/11/2011 11:28:27 [id number] MD RAJEEV [place], [facility], [address] [place] [address] 05/17/2011 13:46:28 05/17/2011 15:12:35 [id number] [facility] Radiology , [facility] [address] [place] [address] 05/17/2011 14:58:54 05/22/2011 15:07:56 [id number] Natalie Reveles MD , [facility], [address] [place] [address] 6 05/26/2011 16:22:49 05/29/2011 14:16:46 [id number] Natalie Reveles MD , [facility], [address] [place] [address] 11/21/2011 11:10:29 11/21/2011 12:20:19 [id number] MD RAJEEV [place], [facility], [address] [place] [address] 05/21/2012 15:50:05 05/21/2012 17:16:10 [id number] ENRIKE Haq , [facility], [address] [place] [address] 08/06/2012 09:44:43 08/06/2012 10:34:24 [id number] MD RAJEEV Nor[place], [facility], [address] [place] [address] 11/01/2012 15:29:43 11/04/2012 10:55:05 [id number] Natalie Reveles MD , [facility], [address] [place] [address] 02/21/2013 11:09:19 02/21/2013 12:15:52 Benign essential hypertension 2766865 continue to work on diet ,exercisea nd lowering salt intake as discussed Mixed hyperlipidemia 610836537 continue to work on diet and exercise as discussed Diabetic on insulin 139938405 Rheumatoid arthritis 38533031 [id number] Natalie Reveles MD , [facility], [address] [place] [address] 06/12/2013 15:53:14 06/12/2013 17:00:00 Benign essential hypertension 7930586 continue to work on diet ,exercisea nd lowering salt intake as discussed Mixed hyperlipidemia 164887263 continue to work on diet and exercise as discussed Adult [facility] th examination [id number] see Risk Assessment and Lifestyle Change Counseling section above Diabetic on insulin 076936769 Neuropathy due to diabetes mellitus 204602556 Mononeuritis 60702863 Rheumatoid arthritis 82724155 [id number] SIAAC Schumacher-VANESA , [facility], OFF[address] [place] [address] 06/19/2013 13:36:30 06/19/2013 14:00:11 Acute sinusitis 25994870 sx tx including afrin- strt ab if no relief Common cold 59379962 Upp er Respirator y Infection Drink plenty [...] days, or you have a high fever. [id number] Natalie Reveles MD , [facility], [address] [place] [address] 09/23/2013 13:47:10 09/24/2013 10:04:00 Sinusitis 35522424 [id number] Rocky Lehman MD , [facility], [address] [place] [address] 09/29/2013 16:41:29 09/30/2013 09:41:00 Acute sinusitis 15803791 [id number] Meghann Ayala NP , [facility], [address] [place] [address] 11/27/2013 09:59:23 11/27/2013 16:10:44 Cough 26200065 [id number] Natalie Reveles MD , [facility], [address] [place] [address] 6 12/11/2013 14:25:08 12/11/2013 15:34:31 Benign essential hypertension 9705182 continue to work on diet ,exercisea nd lowering salt intake as discussed Mixed hyperlipidemia 074157074 continue to work on diet and exercise as discussed Neuropathy due to diabetes mellitus 355950542 Diabetic on insulin 891996882 [id number] Natalie Reveles MD , [facility], [address] [place] [address] 6 06/23/2014 15:01:46 06/23/2014 16:03:39 Spinal stenosis of lumbar region 48017585 Neuropathy due to diabetes mellitus 937912760 Diabetic on insulin 133241021 Allergic a sthma without status asthmaticus 29289853 Mixed hyperlipidemia 578020059 continue to work on diet and exercise as discussed Mononeuritis 51514507 Rheumatoid arthritis 57101097 Type 2 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 548630647 [id number] Natalie Reveles MD , [facility], [address] [place] [address] 6 12/31/2014 14:26:47 12/31/2014 15:36:09 Benign essential hypertension 5333083 continue to work on diet, exercise, and lowering salt intake as discussed Blood pressure at goal Mixed hyperlipidemia 942435911 continue to work on diet and exercise as discussed Diabetic on insulin 769351016 Rheumatoid arthritis 13341471 [id number] Natalie Reveles MD , [facility], [address] [place] [address] 6 04/29/2015 13:53:38 04/29/2015 14:45:02 Benign essential hypertension 4508324 I10 continue to work on diet, exercise, and lowering salt intake as discussed Mixed hyperlipidemia 267 962033 E78.2 continue to work on diet and exercise as discussed Diabetic on insulin 1707 31132 Z79.4 Type 2 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 585142559 E11.9 Neuropathy due to diabetes mellitus 247897626 E11.42 Allergic a sthma without status asthmaticus 80265532 J45.909 Rheumatoid arthritis 698 90201 M06.9 [id number] Natalie Reveles MD , [facility], [address] [place] [address] 07/22/2015 14:47:13 07/22/2015 15:54:33 Benign essential hypertension 3005045 I10 Blood pressure at goal continue to work on diet, exercise, and lowering salt intake as discussed Mixed hyperlipidemia 267 391903 E78.2 continue to work on diet and exercise as discussed Adult [facility] th examination 522227149 Z00.00 see Risk Assessment and Lifestyle Change Counseling section above Neuropathy due to diabetes mellitus 118735460 E11.42 Diabetic on insulin 1707 12354 Z79.4 Hypothyroidism 64277505 E03.9 Rheumatoid arthritis 698 26681 M06.9 Spinal shara nosis of lumbar region 14742167 M48.06 Type 2 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 351532627 E11.9 [id number] Batsheva Cobb MD , [facility], [address] [place] [address] 08/17/2015 16:10:28 08/17/2015 16:58:40 Acute sinusitis 50248476 J01.90 Eczema 84323388 L30.9 Asthma 622397864 J45.90 9 Allergic rhinitis 468126 04 J30.9 [id number] Natalie Reveles MD , [facility], [address] [place] [address] 11/23/2015 14:02:11 11/23/2015 15:24:07 Benign essential hypertension 4780682 I10 Blood pressure at goal continue to work on diet, exercise, and lowering salt intake as discussed Mixed hyperlipidemia 267 015656 E78.2 Cholestero l is at goal Continue to work on diet and exercise as discussed Neuropathy due to diabetes mellitus 241514841 E11.42 Rheumatoid arthritis 698 09449 M06.9 Type 2 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 905638473 E11.9 Diabetic on insulin 1707 00995 Z79.4 [id number] Natalie Reveles MD , [facility], [address] [place] [address] 03/23/2016 14:19:29 03/23/2016 15:26:40 Benign essential hypertension 1686632 I10 Blood pressure at goal Blood pressure NOT at goal. Mixed hyperlipidemia 267 823590 E78.2 continue to work on diet and exercise as discussed Sinusitis 09101231 J32.9 Eczema 43035696 L30.9 Diabetic on insulin 1707 82908 Z79.4 Mononeuritis 12701305 G5 8.9 Rheumatoid arthritis 698 25573 M06.9 [id number] Natalie Reveles MD , [facility], [address] [place] [address] 06/13/2016 14:40:53 06/13/2016 15:36:21 Acute sinusitis 52430135 J01.90 [id number] Natalie Reveles MD , [facility], [address] [place] [address] 11/30/2016 13:57:42 11/30/2016 15:08:02 Diabetic on insulin 040680460 Z79.4 Type 2 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 421712181 E11.9 Mixed hyperlipidemia 267 922499 E78.2 continue to work on diet and exercise as discussed Acute sinusitis 47060696 J01.90 [id number] Natalie Reveles MD , [facility], [address] [place] [address] 12/25/2016 09:20:57 12/25/2016 10:34:52 Adult health examination 395337792 Z00.00 see Risk Assessment and Lifestyle Change Counseling section above Counseling 732352462 Z71 .9 Mixed hyperlipidemia 267 267600 E78.2 continue to work on diet and exercise as discussed Benign ess ential hypertension 2353566 I10 Blood pressure at goal and re Mononeuritis 20426429 G5 8.9 Sciatica 38032445 M54.30 Diabetic on insulin 1707 78491 Z79.4 Rheumatoid arthritis 698 82835 M06.9 Neuropathy due to diabetes mellitus 288869020 E11.42 Hearing loss 99226623 H9 1.90 [id number] Natalie Reveles MD FP, [facility], [address] [place] [address] 05/03/2017 14:27:16 05/03/2017 15:21:54 Benign essential hypertension 9298560 I10 Blood pressure at goal . Mixed hyperlipidemia 267 506985 E78.2 continue to work on diet and exercise as discussed Sciatica 22803031 M54.30 Type 2 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 978156106 E11.9 Diabetic on insulin 1707 51159 Z79.4 Rheumatoid arthritis 698 10364 M06.9 [id number] Rachel Obrien NP FP, [facility], [address] [place] [address] 06/27/2017 15:27:55 06/27/2017 15:57:15 Acute sinusitis 26823345 J01.90 discussed tx options,. At this point will tx with abx, probiotics , nasal rinses and rest. RTC prn [id number] Mami Bernstein MD , [facility], [address] [place] [address] 08/02/2017 13:49:47 08/02/2017 14:54:19 Allergic asthma without status asthmaticus 71763443 J45.909 feels diminished and wheezingbr eath sounds goodafter neb a bit improvedpe ak flows lower range, not much changesubj ectively feels easier to deep breath after nebulizerb ut albuterol makes her jittery and she avoids it when possiblesh ort term trial inhaled steroidcon tinue proair as neededf/u if not improving Acute uppe r respiratory infection 17681031 J06.9 Kriss is presenting today with recurrent URI sxthis does sound like a new viral URI and not pna or recurrent sinus infections upportive instr giventx coughaugme nt asthma mgmt [id number] Natalie Reveles MD , [facility], [address] [place] [address] 09/13/2017 14:23:47 09/13/2017 15:31:30 Benign essential hypertension 5997045 I10 Blood pressure at goal Mixed hyperlipidemia 267 874129 E78.2 continue to work on diet and exercise as discussed Sciatica 40903240 M54.30 Type 2 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 768536762 E11.9 Mononeuritis 90345097 G5 8.9 Rheumatoid arthritis 698 36301 M06.9 Diabetic on insulin 1707 60111 Z79.4 Anemia 405155516 D64.9 Asthma 149233725 J45.90 9 Active or passive immunization 102200047 Z23 [id number] Natalie Reveles MD , [facility], [address] [place] [address] 11/13/2017 14:08:31 11/13/2017 14:54:27 Transient cerebral ischemia 290266769 G45.9 Diabetic on insulin 1707 25157 Z79.4 [id number] Natalie Reveles MD , [facility], [address] [place] [address] 12/27/2017 14:34:57 12/27/2017 16:04:03 Adult health examination 027803664 Z00.00 see Risk Assessment and Lifestyle Change Counseling section above Counseling [id number] Z71 .9 Depression screening 171 938788 Z13.89 depression screening tool administer ed, entered into emr, scored and discussed, time greater than 7.5 minutes Focal onse t impaired awareness epileptic seizure [id number] G40.209 Benign ess ential hypertension 7567644 I10 Blood pressure at goal Sciatica 66328228 M54.30 Mixed hyperlipidemia 267 940929 E78.2 continue to work on diet and exercise as discussed Type 2 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 459620921 E11.9 Allergic a sthma without status asthmaticus 18302501 J45.909 Diabetic on insulin 1707 75830 Z79.4 Rheumatoid arthritis 698 63870 M06.9 Neuropathy due to diabetes mellitus 190833294 E11.42 Screening mammography 24 365161 Z12.31 Active or passive immunization 139732061 Z23 [id number] Natalie Reveles MD , [facility], [address] [place] [address] 04/30/2018 10:39:49 04/30/2018 11:23:30 Counseling [id number] Z71.9 Benign ess ential hypertension 9472836 I10 Blood pressure at goal Mixed hyperlipidemia 267 641783 E78.2 continue to work on diet and exercise as discussed Focal onse t impaired awareness epileptic seizure 607970160 G40.209 Sciatica 30928804 M54.30 Type 2 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 159643095 E11.9 Mononeuritis 02519041 G5 8.9 Diabetic on insulin 1707 99680 Z79.4 Rheumatoid arthritis 698 32908 M06.9 Allergic a sthma without status asthmaticus 37303976 J45.909 Intolerant of ambient temperature 963858861 R68.89 [id number] Natalie Reveles MD , [facility], [address] [place] [address] 07/04/2018 09:15:51 07/04/2018 09:27:41 Active or passive immunization 620623267 Z23 [id number] Natalie Reveles MD , [facility], [address] [place] [address] 08/29/2018 11:16:37 08/30/2018 10:37:41 Acute sinusitis 41305896 J01.90 Benign ess ential hypertension 8905671 I10 Blood pressure at goal Type 2 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 106208388 E11.9 Mononeuritis 59266051 G5 8.9 Rheumatoid arthritis 698 72571 M06.9 [id number] Natalie Reveles MD , [facility], [address] [place] [address] 12/31/2018 14:40:49 12/31/2018 16:07:09 Adult health examination 263094827 Z00.00 see Risk Assessment and Lifestyle Change Counseling section above Counseling 135651683 Z71 .9 Depression screening 171 969747 Z13.89 depression screening tool administer ed, entered into emr, scored and discussed, time greater than 7.5 minutes Mixed hyperlipidemia 267 106253 E78.2 Focal onse t impaired awareness epileptic seizure 022075963 G40.209 Benign ess ential hypertension 2357090 I10 Blood pressure at goal Sciatica 85780408 M54.30 Type 2 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 509604503 E11.9 Allergic a sthma without status asthmaticus 72790180 J45.909 Diabetic on insulin 1707 03126 Z79.4 Rheumatoid arthritis 698 68241 M06.9 Gastroesop hageal reflux disease 652142762 K21.9 Active or passive immunization 870719328 Z23 Neuropathy due to diabetes mellitus 656367147 E11.42 [id number] Natalie Reveles MD , [facility], [address] [place] [address] 02/20/2019 09:32:43 02/20/2019 10:11:54 Acute sinusitis 83195136 J01.90 Health Concerns Section Related Observation LastModified by Organization Detai ls LastModified Time None Recorded Concern Status LastModified by Organization Details LastModified Time None Recorded Advance Directives Directive N: Payers Insurance Date Sequence Insurance Name Policy Number Policy Samuel Covered Member ID Samuel Member ID Guarantor Name 11/20/2017 1 [place] [facility] ([place]) [id number] Kriss Jackson [id number] Kriss Jackson 11/20/2017 2 [place] [id number] Kriss Jackson [id number] Kriss Jackson 07/05/2004 1 *SELF PAY* Ru Massimo Young 11/01/2012 1 [place] [facility] [place]UE [id number] Kriss Jackson [id number] Kriss Jackson 11/20/2017 1 [place] [facility] [id number] Kriss Jackson [id number] Kriss Jackson 11/01/2012 1 [facility] (PPO) [id number] Kriss Jackson [id number] Kriss Jackson 07/01/2013 1 [employer]ALTH PLANS [facility] (PPO) [id number] Kriss Jackson [id number] Kriss Jackson 11/01/2012 1 [facility] [id number] Kriss Jackson [id number] Kriss Jackson 11/20/2017 1 [facility] [place] [id number] Kriss Jackson [id number] Kriss Jackson 02/20/2019 2 [place] [id number] Kriss Jackson [id number] Kriss Jackson 02/20/2019 1 [place] [employer] Kriss Jackson [id number] Kriss Jackson Notes Date Note Type Note [...] intolerance has developed recently Natalie Reveles MD [address] [place] [address], [phone], [facility] 05/11/2018 15:01:12 9 text/html 67 yo with [...] was <6% per Dr. Robson Reveles MD [address] [place] [address], [phone], [facility] 08/30/2018 13:31:11 9 text/html Physical Exam/FemaleReported bypatient.PHAPatient [...] room and availability of urgent care at [facility] DiabetesReported bypatient.Duration:chronic Control:usually well controlled; improved [...] of 145/80 since reducing lisinopril in august.Sees safety council director (Dr. Chance) Natalie Reveles MD [address] [place] [address], [phone], [facility] 01/05/2019 14:13:02 9 text/html Physical Exam/FemaleReported bypatient.PHAPatient [...] room and availability of urgent care at [facility] DiabetesReported bypatient.Duration:chronic Control:usually well controlled; improved [...] green sputum. No dyspnea Natalie Reveles MD [address] [place] [address], [phone], [facility] 02/20/2019 10:14:25 OBGyn Episode No OBEpisode recorded.
--- OUTSIDE RECORDS SUMMARY | 2025-01-06 11:36 | XMS_ITS | Patient Health Record ---
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 Name Role Phone Angel Pablo Primary Care Provider Antonio Giles Unavailable [phone] Allergies Allergen (clinical drug ingredient) Drug/Non Drug [...] Duration) Notes Start Date End Date Status Atorvastatin Calcium 20 MG 1 tablet Orally Once a day; Duration: 30 day(s) Active lamoTRIgine 25 MG 1 tablet Orally; Duration: 30 day(s) 2 in AM 2 in PM Not-Taking Metoprolol Succinate ER 50 MG 1 tablet Orally Once a day Active Aspirin 81 MG 1 tablet Orally Once a day; Duration: 30 day(s) Active Iron 27 240 (27 Fe) MG 1 tablet with barrington er or juice between meals Orally Once a day; Duration: 30 day(s) Not-Taking Furosemide Active ProAir HFA 108 (90 Base) MCG/ACT 2 puff as needed Inhalation every 6 hours PRN Not-Taking Folic Acid 1 MG 1 tablet Orally Once a day; Duration: 30 day(s) Active Lantus 100 UNIT/ML as directed Subcutaneous Not-Taking HumaLOG 100 UNIT/ML as directed Subcutaneous 20 units Active Clopidogrel Bisulfate 75 MG 1 tablet Orally Once a day; Duration: 30 day(s) Not-Taking Gabapentin 600 MG 1 tablet Orally Once a day; Duration: 30 day(s) 1 morning 2 night Active Sucralfate Not-Takin g Extra Depth Orthopedic Shoes (1 Pair) with Customized Heat Molded Multidensity Innersoles (3 Pair) as directed Dx: NIDDM/Polyneuropath y (E11.42), Hammertoe Foot Deformity (M20.41,M20.42), Preulcerative Skin Lesion(s) (L85.1 12/11/2023 Active Omeprazole 40 MG 1 capsule 30 minutes before morning meal Orally Once a day; Duration: 30 day(s) Not-Taking Famotidine 40 MG 1 tablet at bedtime as needed Orally Once a day Active Zoledronic Acid Acti ve Hydroxychloroquine Sulfate 200 MG as directed Orally Active Loperamide HCl 2 MG 1 capsule as needed Orally Four times a day Active Lisinopril-hydroCHLOROth iazide 10-12.5 MG 1 tablet Orally Once a day Active Lidocaine 5 % 1 patch remove after 12 hours Externally Once a day Active ZyrTEC 10 MG 1 tablet Orally Once a day Active Ketoconazole 2 % 1 application Externally Once a day Not-Taking Vitamin D3 50 MCG (2000 UT) 1 capsule Orally Once a day Active metroNIDAZOLE 1 % 1 application Externally Once a day Active Acetaminophen ER 500mg Act jeannette Lisinopril 10 MG 1 tablet Orally Once a day; Duration: 30 day(s) Not-Taking Fluticasone Furoate 50 MCG/ACT 1 puff Inhalation Once a day Active SUMAtriptan Succinate 50 MG 1 tablet as needed, may take second dose at least 2 hours after first dose up to 4 tablets per day as needed Orally Once a day Not-Taking Albuterol Active Ferrous Sulfate ER N ot-Taking Generlac 10 GM/15ML 15 mL as needed Orally Once a day Active Methotrexate Sodium 2.5 MG as directed Orally 8 tabs once a week Not-Taking lamoTRIgine 25 MG Oral; Duration: 90 Days Active Humira (2 Syringe) 40 MG/0.4ML INJECT 40 MG UNDER THE SKIN EVERY 2 WEEKS Subcutaneous; Duration: 28 Days 1 needle every 2 week Active oxyBUTYnin Not-Takin g Lantus SoloStar 100 UNIT/ML Subcutaneous; Duration: 29 Days Active Ammonium Lactate 12 % 1 application Externally to affected areas of dry skin to feet except for between the toes Twice a day; Duration: 30 days Active Betamethasone Dipropionate 0.05 % 1 application Externally Once a day Active oxyBUTYnin Chloride ER 10 MG 1 tablet Orally Once a day Active Fluticasone Propionate 50 MCG/ACT 1 spray in each nostril Nasally Once a day; Duration: 30 day(s) Not-Taking Glucose tablets Active Vitamin D Not-Taking Immunizations Vaccine Route Administration Date Status Comme nts COVID-19 [employer] Unknown 07/14/2021 Administered 1st 09/29/2020 Booster 07/14/2021 Influenza Unknown 04/11/2022 Administered Influenza Unknown 03/25/2024 Administered Social History Tobacco Use: Social History [...] Problem Acquired hammer toe of right foot (1521391004065283 ) Other hammer toe(s) (acquired), right foot (M20.41) Active confirmed Response to treatment, Improvemen t Problem Acquired hammer toe of left foot (3346751167546767 ) Other hammer toe(s) (acquired), left foot (M20.42) Active confirmed Response to treatment, Improvemen t Problem Polyneuropathy due to type 2 diabetes mellitus (554845302) Type 2 diabetes mellitus with diabetic polyneuropathy (E11.42) Active confirmed Vital Signs Blood pressure diastolic 65 mm Hg 12/23/2024 Height 7ja08fa in 12/23/2024 Blood pressure systolic 110 mm Hg 12/23/2024 Weight 146 lbs 12/23/2024 BMI 30.51 kg/m2 12/23/2024 Procedures Procedure Date Ordered Date Performed Result Body Sit e 68274-VUCWSFO NAIL, 6 OR MORE 03/11/2024 N/A 19190 I&D ABSCESS- SIMPLE,SINGLE 03/11/2024 N/A 57054-OHKP SKIN LESIONS, OVER 4 03/11/2024 N/A 51839-ZSPYGXG SKIN/TISSUE 03/25/2024 N/A 82548- Debride <25 sq cm 04/15/2024 N/A 04431-WCNFRVA NAIL, 6 OR MORE 06/10/2024 N/A 19832-IUOC SKIN LESIONS, OVER 4 06/10/2024 N/A 06508-ECBJGVY NAIL, 6 OR MORE 09/16/2024 N/A 55885-JSBZ SKIN LESIONS, OVER 4 09/16/2024 N/A 53976-DGOSKNU NAIL, 6 OR MORE 12/23/2024 N/A 14632-GAPU SKIN LESIONS, OVER 4 12/23/2024 N/A Encounters Encounter Location Date Provider Diagnosis [address] [address] 03/11/2024 Antoniorafia Meadier Type 2 diabetes mellitus with diabetic polyneuropathy E11.42 ; Tinea unguium B35.1 and Abscess of right foot L02.[address] [address] 03/25/2024 Antonio Tisha Abscess of right nichole t L02.611 and Neuropathic ulcer of right foot with fat layer exposed L97.[address] [address] 04/15/2024 Antonio Tisha Neuropathic ulcer of right foot, limited to breakdown of skin L97.[address] [address] 05/16/2024 Antonio Tisha Neuropathic ulcer of right foot, limited to breakdown of skin L97.[address] [address] 06/10/2024 Antoniorafia Giles Type 2 diabetes mellitus with diabetic polyneuropathy E11.42 ; Tinea unguium B35.1 ; Other hammer toe(s) (acquired), right foot M20.41 and Other hammer toe(s) (acquired), left foot M20.[address] [address] 09/16/2024 Antonio Giles Type 2 diabetes mellitus with diabetic polyneuropathy E11.42 ; Tinea unguium B35.1 and Xerosis of skin L85.[address] [address] 12/23/2024 Antonio Giles Type 2 diabetes mellitus with diabetic polyneuropathy E11.42 ; Tinea unguium B35.1 and Xerosis of skin L85.[address] [address] 03/11/2024 Antonio Giles [address] [address] 09/26/2024 Antonio Tisha [address] [address] 2024 Antonio Giles Xerosis of skin L85. 3 Assessments Encounter Date Diagnosis (ICD Code) Assessment Notes Treatment Notes Treatment Clinical Notes Section Notes 03/11/2024 Type 2 diabetes mellitus with diabetic [...] E11.42) 09/16/2024 Tinea unguium (ICD-10 - B35.1) 12/23/2024 Type 2 diabetes mellitus with diabetic polyneuropathy (ICD-10 - E11.42) 12/23/2024 Tinea unguium (ICD-10 - B35.1) 2024 Xerosis of skin (ICD-10 - L85.3) 12/23/2024 Xerosis of skin (ICD-10 - L85.3) 06/10/2024 Other hammer toe(s) (acquired), right foot (ICD-10 - M20.41) Response to treatment,Impro vement 03/25/2024 Neuropathic ulcer of right foot with fat layer exposed (ICD-10 - L97.512) Response to treatment,Nonap plicable Patient Educated with: WOUND CARE INSTRUCTIONS. pdf (WOUND CARE INSTRUCTIONS. pdf) 03/11/2024 Abscess of right foot (ICD-10 - L02.611) Patient Educated with: WOUND CARE INSTRUCTIONS. pdf (WOUND CARE INSTRUCTIONS. pdf) 06/10/2024 Other hammer toe(s) (acquired), left foot (ICD-10 - M20.42) Response to treatment,Impro vement 09/16/2024 Xerosis of skin (ICD-10 - L85.3) 03/11/2024 Other 03/25/2024 Other Plan Of Treatment Pending Test Test Name Order Date X ray : Foot, left 3V 03/03/2022 X ray : Foot, right 3V 03/03/2022 77211-PMDRBNF NAIL, 6 OR MORE 03/11/2024 31417-LKRKOQE NAIL, 6 OR MORE 09/11/2023 79986-CPQEGXY NAIL, 6 OR MORE 12/11/2023 16253-KQECYLS NAIL, 6 OR MORE 09/08/2022 01515-CHBDYDD NAIL, 6 OR MORE 12/08/2022 24184-ARHCZIB NAIL, 6 OR MORE 03/09/2023 45492-DCCWIJQ NAIL, 6 OR MORE 06/08/2023 00947-MKXUQSR NAIL, 6 OR MORE 06/02/2022 09024-TTCVGDK NAIL, 6 OR MORE 03/03/2022 52788-TYNJSKL NAIL, 6 OR MORE 08/30/2021 48753-UKYVLPC NAIL, 6 OR MORE 12/02/2021 08157-XSRBSAG NAIL, 6 OR MORE 06/08/2020 34138-LVHYJTW NAIL, 6 OR MORE 09/03/2020 80812-HDYCGXZ NAIL, 6 OR MORE 12/10/2020 28862-PSVOCBG NAIL, 6 OR MORE 03/22/2021 61332-CMHCWDK NAIL, 6 OR MORE 06/10/2024 44563-TFKDBBX NAIL, 6 OR MORE 09/16/2024 59151-MRRXSMY NAIL, 6 OR MORE 12/23/2024 00294-Fksunsid Plate 12/11/2023 93764- Debride <25 sq cm 04/15/2024 99627-ETPXCZV SKIN/TISSUE 03/25/2024 92971 I&D ABSCESS- SIMPLE,SINGLE 024 57103-MORK SKIN LESIONS, OVER 4 06/10/20 24 08112-LSXE SKIN LESIONS, OVER 4 12/24/19 25 94698-FFNK SKIN LESIONS, OVER 4 09/17/19 25 98281-OFDP SKIN LESIONS, OVER 4 03/11/20 24 65049-XREL SKIN LESIONS, OVER 4 12/11/19 24 22513-KSCW SKIN LESIONS, OVER 4 09/11/19 24 23770-EQAH SKIN LESIONS, OVER 4 06/08/20 23 37540-EMBR SKIN LESIONS, OVER 4 03/09/20 23 20602-XEFZ SKIN LESIONS, OVER 4 12/09/19 23 28785-PMZM SKIN LESIONS, OVER 4 09/09/19 23 42406-ZQZK SKIN LESIONS, OVER 4 03/22/20 21 29146-JMUS SKIN LESIONS, OVER 4 12/11/19 21 85352-HBWZ SKIN LESIONS, OVER 4 09/04/19 21 89686-ZDQC SKIN LESIONS, OVER 4 06/08/20 20 85054-GAVV SKIN LESIONS, OVER 4 12/03/19 22 09509-GCPG SKIN LESIONS, OVER 4 08/31/19 16924-KYNK SKIN LESIONS, OVER 4 03/03/20 22 42192-OWNP SKIN LESIONS, OVER 4 06/02/20 Next Appt Details Provider Name:Antonio Giles , 03/27/2025 09:30:00 AM, [address] [place] [address], [place], [address], Insurance Providers Payer Name Payer Address Payer Phone Subscriber Number Group Number Insured Name Patient Relationship to Insured Coverage Start Date Coverage End Date Medicare National [employer] [address] [place] [address] [phone] [id number] Kriss Jackson Self - patient is the insured [employer] [address] [place] [address] [id number] Kriss Jackson Self - patient is the [...]
== END 2025-01-06 10:24 | disposition home or self-care (01) ==
LOC: HO.LAB 10:23
PROVIDERS: PCP Internal Medicine; Visit Provider Internal Medicine Cardiovascular Disease
DX: I47.29 Other ventricular tachycardia (principal)
CPT/HCPCS: 36415; 80048

== ENCOUNTER 2025-01-20 12:16 | Outpatient (AMB) | payer MEDICARE, SELFPAY ==
--- NOTE | 2025-01-20 12:35 | A.OFFVIS_ITS ---
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 Allergies duloxetine Allergy (Severe, Verified 01/20/25 12:38) LOOPY codeine (CODEINE) Allergy (Intermediate, Verified 01/20/25 12:38) GI UPSET doxycycline (DOXYCYCLINE) Allergy (Intermediate, Verified 01/20/25 12:38) RASH Sulfa (Sulfonamide Antibiotics) (SULFA (SULFONAMIDE ANTIBIOTICS)) Allergy (Intermediate, Verified 01/20/25 12:38) Hives Medication List - Last Reconciled 01/20/25 by Jose Perez MD adalimumab (Humira(CF) Pen) 40 mg (0.4 mL) subcut Q2W albuterol sulfate 90 mcg/actuation (ProAir HFA) 2 puffs inhalation Q4-6H PRN 30 days ammonium lactate 12% 12 appl topical BID aspirin 81 mg PO DAILY atorvastatin 10 mg PO BEDTIME betamethasone valerate 0.1% 1 appl topical BID PRN blood sugar diagnostic (Cruse Environmental TechnologyTouch Ultra Test strips) As directed 3x daily cholecalciferol (vitamin D3) (Vitamin D3) 4,000 units PO DAILY cyanocobalamin (vitamin B-12) (Vitamin B-12) 500 mcg PO DAILY famotidine 40 mg PO BID fluticasone propionate 50 mcg/actuation 2 sprays intranasal DAILY folic acid 1 mg PO DAILY furosemide 10 mg (1/2 x 20 mg) PO DAILY gabapentin 300 mg PO TID hydroxychloroquine 200 mg PO BID insulin glargine (Lantus Solostar U-100 Insulin) 60 units (0.6 mL) subcut BEDTIME 30 days insulin lispro (Humalog Kervin KwikPen (U-100)) 20 units (0.2 mL) subcut BID 90 days insulin syringe-needle U-100 As directed lamotrigine 50 mg PO BID lidocaine 5% 1 patch topical DAILY lisinopril-hydrochlorothiazide 10-12.5 mg 1 tab PO DAILY 90 days loperamide 2 mg PO TID metoprolol succinate ER (Toprol XL) 50 mg PO DAILY metronidazole 1% 1 appl topical DAILY nystatin 10 mL PO TID oxybutynin chloride ER 10 mg PO DAILY pen needle, diabetic As directed 2 times per day walker As directed zoledronic glqi-hnyqqngw-thjjw 5 mg/100 mL (Reclast) 5 ea IV ONCE HPI Comments Details: Kriss comes for follow-up. Patient complains of lack of balance. Recently while undergoing coronary CTA she was told that she had low blood pressure. Her blood pressures been running low. She was recently prescribed Lasix, she does not know why, probably for leg edema. She has no orthopnea, PND. She had also on lisinopril hydrochlorothiazide as well as metoprolol therapy. Her myocardial perfusion imaging was not significantly abnormal although underwent a coronary CTA. Denies occasional skipped heartbeats. Comes for pacemaker evaluation and follow-up of test results. Coronary CTA shows catheter atherosclerotic lesions with mostly [id number] nonobstructive disease. 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 Irritable bowel syndrome with diarrhea Rheumatoid arthritis Pacemaker TIA (transient ischemic attack) Dysphagia Spinal stenosis COVID COVID-19 Laryngopharyngeal reflux (LPR) Asthma Rotator cuff tendinitis Post-menopausal Polyarthralgia Dyspnea on exertion Allergic rhinitis Bronchitis Asthma exacerbation Cough variant asthma DJD (degenerative joint disease) Decreased hearing GERD (gastroesophageal reflux disease) Type 2 diabetes 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s Surgical History S/P placement of cardiac pacemaker History of esophagogastroduodenoscopy (EGD) History of colonoscopy (~09/05/21) Hx of cholecystectomy Hx of tonsillectomy Hx of hysterectomy Family History Father CVD (cardiovascular disease) Diabetes Mother Diabetes Sister No problems noted. Other Substance use disorder Social History Household Members: Family and None Housing: House Are you a primary home care consultant to a significant other at home: No Do you presently have visiting nurse or other home services: No Alcohol intake: former Comment: WITHIN LAST MONTH Patient Tobacco Use Status: Never used Tobacco e-Cigarette/Vaping Use: Never Used Second Hand Smoke Exposure: No Advance Directives Date on File: 08/04/22 service: No Current occupational status: retired Cognitive needs: Yes (walker) Hearing needs: Yes (hearing aide) Vision needs: Yes (glasses) Review of Systems ENT Reports dizziness Card Denies chest pain, Denies chest pain at rest, Denies chest pain with activity, Denies rapid heart rate, Denies pedal edema, Denies edema, Denies leg edema, Denies lightheadedness, Denies palpitations, Denies dyspnea, Denies dyspnea on exertion and Denies orthopnea Resp Denies cough, Denies dyspnea and Denies dyspnea on exertion GI Denies hematochezia and Denies change in stool character Musc Denies abnormal gait, Reports limited range of motion, Reports muscle cramps, Denies muscle weakness, Denies numbness, Denies radiating pain into limb, Denies stiffness and Denies tingling Neuro Denies Abnormal speech present, Denies abnormal gait, Reports dizziness, Denies numbness and Denies tingling Endo Denies palpitations Physical Exam Vital Signs: Last Vital Signs Pulse 60 01/20/25 12:36 BP 80/52 L 01/20/25 12:36 BMI result Body Mass Index 30.7 Const General: cooperative, comfortable, no acute distress, alert, awake and well groomed Nutritional Appearance: overweight Orientation/consciousness: patient oriented x3 Limitations: ambulation with walker Neck Neck: Yes trachea midline, Yes supple and Yes no JVD Resp Effort & Inspection: normal respiratory effort Auscultation: clear to auscultation bilaterally Cardio Jugular venous distension: no JVD Palpation: normal PMI Rate: regular rate Rhythm: regular rhythm Heart sounds: S1 normal heart sound present, S2 normal heart sound present, no click, no gallops, no murmurs and no rubs Bruits: no carotid bruits Neuro General: patient oriented x3 and no focal motor deficits Speech: No Abnormal speech present Extrem General: Yes no clubbing, cyanosis or edema Office Procedures Cardiac Device Check Cardiac Device Check Details: Dual-chamber [place] pacemaker in place. Programmed in DDDR at 60 beats per minute. Atrial pacing 46% of time. Ventricularly pacer dependent. Atrial ventricular pacing thresholds adequate and in auto capture mode. Atrial ventricular sensing is adequate. Pacing lead impedance is stable. Battery life is at about 8 years 24458-ST Cardiac Device Check, pacemaker dual lead Procedure code (CPT) selection complete Assessment & Plan Assessment & Plan (1) Low blood pressure: Code(s): I95.9 - Hypotension, unspecified Plan: Low blood pressure in this elderly woman most likely due to reduce preload from over-diuresis from multiple diuretic therapy. Advised her to hold her lisinopril hydrochlorothiazide therapy for now. Continue other regimen. Advised to monitor blood pressure home regularly. Will set up for 2 week follow-up for blood pressure check. Management was discussed in details. Advised to maintain adequate hydration. (2) Pacemaker: Code(s): Z95.0 - Presence of cardiac pacemaker Category: Medical Plan: Cardiac pacemaker in-situ, working well. Reprogrammed for adequate functioning. Will follow-up remotely every 3 months. Follow up in the clinic in 6 months time. (3) Non-sustained ventricular tachycardia: Code(s): I47.29 - Other ventricular tachycardia Category: Medical Plan: Nonsustained ventricular tachycardia without any obvious recurrence on pacer telemetry. She has no significant underlying structural heart disease noted by coronary CTA and/or echocardiogram. Continue metoprolol therapy. Avoidance of stimulants was discussed. Will continue monitor pacer telemetry. (4) CAD (coronary artery disease): Code(s): I25.10 - Atherosclerotic heart disease of [place] coronary artery without angina pectoris Category: Medical Plan: Nonobstructive CAD without any significant symptoms. Continue aggressive risk factor modification. Continue low-dose aspirin therapy for life. Continue statin therapy with target goal LDL less than 70 mg/dL. Diabetes management through your office with goal hemoglobin A1c less than 7%. Blood pressure is actually on the lower side. Advised to monitor blood pressure at home. Holding lisinopril hydrochlorothiazide therapy. Will adjust accordingly. Will follow up in the clinic in 6 months time, sooner p.r.n.. Thank you for allowing me to partake in her care Medications: On Hold lisinopril-hydrochlorothiazide 10-12.5 mg Hold Comment: Doctor's Order 1 tab PO DAILY 90 days 90 tabs 0RF Coding Level of Care Code Est Pt Level 4 (39874) Complex EM visit Add On G2211 Diagnoses Low blood pressure I95.9 Pacemaker Z95.0 Non-sustained ventricular tachycardia I47.29 CAD (coronary artery disease) I25.10 CPT Codes Cardiac Device Check - Cardiac Device 2: 29760-BB Cardiac Device Check, pacemaker dual lead ([id number])
[2025-01-20 12:36] VITALS: BP 80/52; PULSE 60; BMI 30.7
--- OUTSIDE RECORDS SUMMARY | 2025-01-20 13:07 | XMS_ITS | Patient Health Record ---
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 Name Role Phone Angel Pablo Primary Care Provider Antonio Giles Unavailable [phone] Allergies Allergen (clinical drug ingredient) Drug/Non Drug Allergy documented on EMR Reaction Allergy Type Onset Date Status sulfamethoxazole / trimethoprim Bactrim hives Drug Allergy Active Cymbalta Unknown Drug Allergy Active doxycycline Doxycycline [...] Status Comme nts Influenza Unknown 04/11/2022 Administered Influenza Unknown 03/25/2024 Administered COVID-19 Vincenzo & Vincenzo/Leon Unknown 07/14/2021 [...] Problem Acquired hammer toe of right foot ([id number] ) Other hammer toe(s) (acquired), right foot (M20.41) Active confirmed Response to treatment, Improvemen t Problem Acquired hammer toe of left foot (9192253110199810 ) Other hammer toe(s) (acquired), left foot (M20.42) Active confirmed Response to treatment, Improvemen t Problem Polyneuropathy due to type 2 diabetes mellitus (740698408) Type 2 diabetes mellitus with diabetic polyneuropathy (E11.42) Active confirmed Vital Signs Blood pressure diastolic 65 mm Hg 12/23/2024 Height 5eu04ht in 12/23/2024 Blood pressure systolic 110 mm Hg 12/23/2024 Weight 146 lbs 12/23/2024 BMI 30.51 kg/m2 12/23/2024 Procedures Procedure Date Ordered Date Performed Result Body Sit e 07251-VHBHLOM NAIL, 6 OR MORE 03/11/2024 N/A 29236 I&D ABSCESS- SIMPLE,SINGLE 03/11/2024 N/A 01106-SXQC SKIN LESIONS, OVER 4 03/11/2024 N/A 89214-ZZQBCNZ SKIN/TISSUE 03/25/2024 N/A 45344- Debride <25 sq cm 04/15/2024 N/A 41919-JYPGDOY NAIL, 6 OR MORE 06/10/2024 N/A 19429-NBXF SKIN LESIONS, OVER 4 06/10/2024 N/A 62301-OUXYRZK NAIL, 6 OR MORE 09/16/2024 N/A 41242-GYTY SKIN LESIONS, OVER 4 09/16/2024 N/A 58507-ACOCSJT NAIL, 6 OR MORE 12/23/2024 N/A 05861-VPYH SKIN LESIONS, OVER 4 12/23/2024 N/A Encounters Encounter Location Date Provider Diagnosis [address] [address] 03/11/2024 Antoniorafia Meadier Type 2 diabetes mellitus with diabetic polyneuropathy E11.42 ; Tinea unguium B35.1 and Abscess of right foot L02.[address] [address] 03/25/2024 Antonio Tisha Abscess of right nichole t L02.611 and Neuropathic ulcer of right foot with fat layer exposed L97.[address] [address] 04/15/2024 Antonio Tisha Neuropathic ulcer of right foot, limited to breakdown of skin L97.[address] [address] 05/16/2024 Antonio Tisha Neuropathic ulcer of right foot, limited to breakdown of skin L97.[address] [address] 06/10/2024 Antoniorafia Giles Type 2 diabetes mellitus with diabetic polyneuropathy E11.42 ; Tinea unguium B35.1 ; Other hammer toe(s) (acquired), right foot M20.41 and Other hammer toe(s) (acquired), left foot M20.[address] [address] 09/16/2024 Antonio Giles Type 2 diabetes mellitus with diabetic polyneuropathy E11.42 ; Tinea unguium B35.1 and Xerosis of skin L85.[address] [address] 12/23/2024 Antonio Giles Type 2 diabetes mellitus with diabetic polyneuropathy E11.42 ; Tinea unguium B35.1 and Xerosis of skin L85.[address] [address] 03/11/2024 Antonio Giles [address] [address] 09/26/2024 Antonio Giles [address] [address] 2024 Antonio Giles Xerosis of skin L85. [...] X ray : Foot, right 3V 03/03/2022 67877-QRHJTVN NAIL, 6 OR MORE 03/11/2024 90872-UBJEFDJ NAIL, 6 OR MORE 09/11/2023 43839-UXEWBRG NAIL, 6 OR MORE 12/11/2023 33715-TGZCJMT NAIL, 6 OR MORE 09/08/2022 48746-UEFVBWT NAIL, 6 OR MORE 12/08/2022 09800-DQKBRMC NAIL, 6 OR MORE 03/09/2023 39466-NXNMMNO NAIL, 6 OR MORE 06/08/2023 14217-VFIAADX NAIL, 6 OR MORE 06/02/2022 85621-WUNPHCU NAIL, 6 OR MORE 03/03/2022 71000-IJGUHZS NAIL, 6 OR MORE 08/30/2021 25210-NYCYDJH NAIL, 6 OR MORE 12/02/2021 40209-GMIYCMB NAIL, 6 OR MORE 06/08/2020 94610-EBVGRFF NAIL, 6 OR MORE 09/03/2020 87354-AUMLYAB NAIL, 6 OR MORE 12/10/2020 59336-MPFQXWO NAIL, 6 OR MORE 03/22/2021 84593-QBYQJMJ NAIL, 6 OR MORE 06/10/2024 74327-XIEKBEO NAIL, 6 OR MORE 09/16/2024 01610-GVRLXDE NAIL, 6 OR MORE 12/23/2024 28687-Zgkoqtqd Plate 12/11/2023 91381- Debride <25 sq cm 04/15/2024 03226-OZWPTBV SKIN/TISSUE 03/25/2024 68624 I&D ABSCESS- SIMPLE,SINGLE 024 00926-LJXC SKIN LESIONS, OVER 4 06/10/20 24 31900-XBRC SKIN LESIONS, OVER 4 12/24/19 25 23843-ARJE SKIN LESIONS, OVER 4 09/17/19 25 12673-IESV SKIN LESIONS, OVER 4 03/11/20 24 21739-JFNV SKIN LESIONS, OVER 4 12/11/19 24 11272-WEYE SKIN LESIONS, OVER 4 09/11/19 24 86098-SNMJ SKIN LESIONS, OVER 4 06/08/20 23 79001-DZNQ SKIN LESIONS, OVER 4 03/09/20 23 45449-BNLO SKIN LESIONS, OVER 4 12/09/19 23 58656-FUAU SKIN LESIONS, OVER 4 09/09/19 23 29602-SEUG SKIN LESIONS, OVER 4 03/22/20 21 72187-BWNJ SKIN LESIONS, OVER 4 12/11/19 21 00355-LQGI SKIN LESIONS, OVER 4 09/04/19 21 18407-GJRK SKIN LESIONS, OVER 4 06/08/20 20 99585-VGJL SKIN LESIONS, OVER 4 12/03/19 22 19961-LVPK SKIN LESIONS, OVER 4 08/31/19 56982-PPYT SKIN LESIONS, OVER 4 03/03/20 22 10973-WPFW SKIN LESIONS, OVER 4 06/02/20 Next Appt Details Provider Name:Antonio Giles , 03/27/2025 09:30:00 AM, [address] [place] [address], [place], [address], Insurance Providers Payer Name Payer Address Payer Phone Subscriber Number Group Number Insured Name Patient Relationship to Insured Coverage Start Date Coverage End Date Medicare National [employer] [address] [place] [address] [id number] Kriss Jackson Self - patient is the insured [employer] [address] [place] [address] [id number] Kriss Jackson Self - patient is the [...]
--- OUTSIDE RECORDS SUMMARY | 2025-01-20 13:08 | XMS_ITS | Data Portability ---
Author Organization [facility], [facility] Address [address] [place] [address] Assessment Encounter Date Assessment Date Assessment LastModified by Organization Details LastModified Time 04/30/2018 04/30/2018 Blood pressure i s at goal with which is below 140/90 for a diabetic. She is looking for alternative activities in her fpc. Her A1c of 5.5% shows excellent diabetes control (goal below 7.5-8%). She will continue with [facility] for excellence in diabetes education for that. [...] to what she tells us from her traffic manager, and she will try and get us those records. 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 She will follow-up in [...] bp more regularly 3) Patient regularly sees traffic manager who will check A1C and adjust [...] with new provider (will be changing to [facility] for convenience) 9) RA stable; may [...] Lab TSH, serum or plasma 2017 018 [facility], [address] [place] [address], [id number], 8 16:26:11 CBC 2017 018 [facility], [address] [place] [address], [id number], 8 14:43:05 Referral None recorded. Procedures None recorded. Surgeries None recorded. Imaging None recorded. Medication Orders cefpodoxim e 200 mg tablet 2018 019 [id number], [address], [place], [id number], 9 12:53:28 atorvastat in 20 mg tablet 2018 019 [facility] #[id number], [address], [place], [id number], 9 16:34:01 lidocaine 5 % topical patch 2018 019 [facility]FACE [facility] #[id number], [address], [place], [id number], 9 13:32:45 omeprazole 20 mg capsule,de layed release 2018 019 [facility] #63065, [address], [place], [id number], 9 16:34:01 lisinopril 10 mg-hydroch lorothiazi de 12.5 mg tablet 2018 019 [facility] #[id number], [address], [place], [id number], 9 16:34:01 cefpodoxim e 200 mg tablet 2018 019 [facility] #[id number], [address], [place], [id number], 9 14:47:44 Patient TargetsNo targets recorded. Patient Instructions Encounter Date Encounter Id Patient Instructions Last Modified By Organization Details Last Modified Time 04/30/2018 [id number] high cholesterol lifestyle changes nikki Not available 04/30/2018 11:19:19 high blood pressure: care instructions nikki Not available 04/30/2018 11:19:19 learning about high blood pressure nikki Not available 04/30/2018 11:19:19 asthma handout / teaching nikki Not available 04/30/2018 11:19:19 asthma action plan nikki Not availab le 04/30/2018 11:19:[address] an ages 0-11 yrs [place] islander nikki Not available 04/30/2018 11:19:19 CCM: The provide r and patient discussed the Chronic Care Management program, including the services provided, and any fees associated with them. michele Not available 04/30/2018 11:32:47 08/29/2018 [id number] My Health To Do List Specific Analgesia [...] medication. spise Not available 08/29/2018 11:18:25 12/31/2018 [id number] After a discussi on of treatment options, [...] nts with Diabe sarath Not Available [address], [address], 04/26/2018 15:36:01 04/26/20 18 04/26/2018 HbA1c (hemo globi n A1c), blood estimated average glucose 111.2 mg/dL Not Available [address], [address], 04/26/2018 15:36:01 04/26/20 18 04/26/2018 micro album in, urine microalbumin 39.3 mg/L 1.3-20 .0 high Not Available [address], [address], 04/26/2018 15:37:51 04/26/20 18 04/26/2018 micro album in, urine creatinine urine 193.6 mg/dL 30.0-1 25.0 high Not Available [address], [address], 04/26/2018 15:37:51 04/26/20 18 04/26/2018 micro album in, urine microalb/cre at ratio 20.3 mg/g_ creat 0.0-29 .0 Not Available [address], [address], 04/26/2018 15:37:51 04/26/20 18 04/26/2018 BMP, serum or plasm a glucose 74 mg/dL 70-100 Not Available [address], [address], 04/26/2018 16:07:42 04/26/20 18 04/26/2018 BMP, serum or plasm a BUN 16 mg/dL 7-18 Not Available [address], [address], 04/26/2018 16:07:42 04/26/20 18 04/26/2018 BMP, serum or plasm a creatinine 1.1 mg/dL 0.8-1. 3 Not Available [address], [address], 04/26/2018 16:07:42 04/26/20 18 04/26/2018 BMP, serum or plasm a B/C 14.5 ratio Not Available [address], [address], 04/26/2018 16:07:42 04/26/20 18 04/26/2018 BMP, serum or plasm a GFR -non 55.5 mL/mi n Recom zhane d GFR by the John Vivas y Found ation >60 mL/mi n/1.7 3m2 - Patricia l <60 mL/mi n/1.7 3m2 - Chron ic Kidne y Disea se <15 mL/mi n/1.7 3m2 - Kidne y Failu re Not Available [address], [address], 04/26/2018 16:07:42 04/26/20 18 04/26/2018 BMP, serum or plasm a GFR - if 63.8 mL/mi n For Afric an Ameri can patie nts: Resul ts Multi plied by 1.21 Not Available [address], [address], 04/26/2018 16:07:42 04/26/20 18 04/26/2018 BMP, serum or plasm a sodium 143 mmol/ L 136-14 5 Not Available [address], [address], 04/26/2018 16:07:42 04/26/20 18 04/26/2018 BMP, serum or plasm a potassium 4.6 mmol/ L 3.5-5. 1 Not Available [address], [address], 04/26/2018 16:07:42 04/26/20 18 04/26/2018 BMP, serum or plasm a chloride 105 mmol/ L 96-107 Not Available [address], [address], 04/26/2018 16:07:42 04/26/20 18 04/26/2018 BMP, serum or plasm a anion gap 11.1 5.0-15 .0 Not Available [address], [address], 04/26/2018 16:07:42 04/26/20 18 04/26/2018 BMP, serum or plasm a CO2 27 mmol/ L 21-32 Not Available [address], [address], 04/26/2018 16:07:42 04/26/20 18 04/26/2018 BMP, serum or plasm a calcium 9.2 mg/dL 8.5-10 .3 Not Available [address], [address], 04/26/2018 16:07:42 04/26/20 18 04/26/2018 lipid panel , serum cholesterol 106 mg/dL <200 mg/dl Avelino able 200-2 39 mg/dl Borde rline High >240 mg/dl High Not Available [address], [address], 04/26/2018 16:07:44 04/26/20 18 04/26/2018 lipid panel , serum triglyceride s 184 mg/dL <150 mg/dL Patricia l 150-1 99 mg/dL Borde rline High 200-4 99 mg/dL High >500 mg/dL Very High Not Available [address], [address], 04/26/2018 16:07:44 04/26/20 18 04/26/2018 lipid panel , serum direct HDL 39 mg/dL <40 mg/dl - Major Risk for CHD >60 mg/dl - Negat jeannette Risk for CHD Not Available [address], [address], 04/26/2018 16:07:44 04/26/20 18 04/26/2018 LDL, calcu lated , serum (OBS) LDL - calculated 30.2 RISK CATEG ORY LDL GOAL _ CHD or CHD Risk Equiv alent s <100 mg/dl (10-y ear risk >20%) 2+ Risk Facto rs <130 mg/dl (10-y ear risk <= 20%) 0-1 Risk Facto r <160 mg/dl [facility] with 0-1 risk facto r have a 10 year risk <10%, thus 10 year risk asses ment in peopl e with 0-1 risk facto r is not necpierce olivia. Not Available [address], [address], 04/26/2018 16:07:45 04/26/20 18 04/26/2018 AST/S GOT (aspa rtate amino trans feras e), serum or plasm a AST 18 U/L 15-37 Not Available [address], [address], 04/26/2018 16:25:23 04/26/20 18 04/26/2018 ALT (karen ine amino trans feras e), serum or plasm a ALT 26 U/L 30-65 low Not Available [address], [address], 04/26/2018 16:25:24 04/30/20 18 04/30/2018 CBC WBC 8.9 K/ L 4.0-10 .0 Not Available [address], [address], 04/30/2018 14:43:04 04/30/20 18 04/30/2018 CBC RBC 4.13 M/ L 3.93-5 .22 Not Available [address], [address], 04/30/2018 14:43:04 04/30/20 18 04/30/2018 CBC HGB 11.9 g/dL 11.2-1 5.7 Not Available [address], [address], 04/30/2018 14:43:04 04/30/20 18 04/30/2018 CBC HCT 35.9 % 34.1-4 4.9 Not Available [address], [address], 04/30/2018 14:43:04 04/30/20 18 04/30/2018 CBC MCV 86.9 L 79.4-9 4.8 Not Available [address], [address], 04/30/2018 14:43:04 04/30/20 18 04/30/2018 CBC MCH 28.8 pg 25.6-3 2.2 Not Available [address], [address], 04/30/2018 14:43:04 04/30/20 18 04/30/2018 CBC MCHC 33.1 g/dL 32.2-3 5.5 Not Available [address], [address], 04/30/2018 14:43:04 04/30/20 18 04/30/2018 CBC plt 290.0 K/ L 182.0- 369.0 Not Available [address], [address], 04/30/2018 14:43:04 04/30/20 18 04/30/2018 CBC MPV 11.7 9.4-12 .3 Not Available [address], [address], 04/30/2018 14:43:04 04/30/20 18 04/30/2018 CBC neut% 78.8 % 34.0-7 1.1 high Not Available [address], [address], 04/30/2018 14:43:04 04/30/20 18 04/30/2018 CBC neut# 7.0 1.6-6. 1 high Not Available [address], [address], 04/30/2018 14:43:04 04/30/20 18 04/30/2018 CBC lymph % 14.1 % 19.3-5 1.7 low Not Available [address], [address], 04/30/2018 14:43:04 04/30/20 18 04/30/2018 CBC lymph # 1.3 K/ L 1.2-3. 7 Not Available [address], [address], 04/30/2018 14:43:04 04/30/20 18 04/30/2018 CBC mono% 5.2 % 4.7-12 .5 Not Available [address], [address], 04/30/2018 14:43:04 04/30/20 18 04/30/2018 CBC mono# 0.5 0.2-0. 6 Not Available [address], [address], 04/30/2018 14:43:04 04/30/20 18 04/30/2018 CBC eo% 1.4 % 0.7-5. 8 Not Available [address], [address], 04/30/2018 14:43:04 04/30/20 18 04/30/2018 CBC eo# 0.1 0.0-0. 4 Not Available [address], [address], 04/30/2018 14:43:04 04/30/20 18 04/30/2018 CBC baso% 0.5 % 0.1-1. 2 Not Available [address], [address], 04/30/2018 14:43:04 04/30/20 18 04/30/2018 CBC baso# 0.0 0.0-0. 1 Not Available [address], [address], 04/30/2018 14:43:04 04/30/20 18 04/30/2018 CBC RDW-CV 14.0 % 11.7-1 4.4 Not Available [address], [address], 04/30/2018 14:43:04 04/30/20 18 04/30/2018 TSH, serum or plasm a TSH 2.29 uIU/m L 0.50-6 .00 The Ameri can Colle ge of Endoc rinol ogy and Ameri can Thyro id Assoc iatio n recom mend goal TSH value s betwe en 0.4-4 .0 mIU/m L. Not Available [facility] [address] [facility], [place], [address], 04/30/2018 16:26:11 06/12/20 18 06/12/2018 CBC w/ auto diff WBC 13.71 K/uL 3.40-1 1.20 high Not Available [facility] [address] [place] [address], [address], 06/12/2018 14:19:14 06/12/20 18 06/12/2018 CBC w/ auto diff RBC 4.19 M/uL 3.80-4 .80 Not Available [facility] [address] [place] [address], [address], 06/12/2018 14:19:14 06/12/20 18 06/12/2018 CBC w/ auto diff HGB 12.0 g/dL 12.0-1 5.0 Not Available [facility] [address] [place] [address], [address], 06/12/2018 14:19:14 06/12/20 18 06/12/2018 CBC w/ auto diff HCT 35.1 % 36.0-4 6.0 low Not Available [facility] [address] [place] [address], [address], 06/12/2018 14:19:14 06/12/20 18 06/12/2018 CBC w/ auto diff plt 285 K/uL 130-40 0 Not Available [facility] [address] [place] [address], [address], 06/12/2018 14:19:14 06/12/20 18 06/12/2018 CBC w/ auto diff MCV 83.8 fL 79.0-9 8.0 Not Available [facility] [address] [place] [address], [address], 06/12/2018 14:19:14 06/12/20 18 06/12/2018 CBC w/ auto diff MCH 28.6 pg 27.0-3 4.8 Not Available [facility] [address] [place], [address], 06/12/2018 14:19:14 06/12/20 18 06/12/2018 CBC w/ auto diff MCHC 34.2 g/dL 31.5-3 6.0 Not Available [facility] [address] [place], [address], 06/12/2018 14:19:14 06/12/20 18 06/12/2018 CBC w/ auto diff RDW 13.2 % 10.8-1 4.6 Not Available [facility] [address] [place], [address], 06/12/2018 14:19:14 06/12/20 18 06/12/2018 CBC w/ auto diff MPV 11.6 fL 9.4-12 .4 Not Available [facility] [address] [place], [address], 06/12/2018 14:19:14 06/12/20 18 06/12/2018 CBC w/ auto diff NRBC 0.00 /100_ WBCs 0.00 Not Available [facility] [address] [place], [address], 06/12/2018 14:19:14 06/12/20 18 06/12/2018 CBC w/ auto diff absolute NRBC 0.00 K/uL 0.00 Not Available [facility] [address] [place], [address], 06/12/2018 14:19:14 06/12/20 18 06/12/2018 CBC w/ auto diff diff method Auto Not Available [facility] [address] [place], [address], 06/12/2018 14:19:14 06/12/20 18 06/12/2018 CBC w/ auto diff neuts 84.8 % 45.30- 77.70 high Not Available [facility] [address] [place], [address], 06/12/2018 14:19:14 06/12/20 18 06/12/2018 CBC w/ auto diff lymphs 9.0 % 12.30- 39.70 low Not Available [facility] [address] [place] [address], [address], 06/12/2018 14:19:14 06/12/20 18 06/12/2018 CBC w/ auto diff monos 4.2 % 4.10-1 2.80 Not Available [facility] [address] [place] [address], [address], 06/12/2018 14:19:14 06/12/20 18 06/12/2018 CBC w/ auto diff eos 0.9 % 0-7.2 Not Available [facility] [address] [place] [address], [address], 06/12/2018 14:19:14 06/12/20 18 06/12/2018 CBC w/ auto diff basos 0.7 % 0-2.80 Not Available [facility] [address] [place] [address], [address], 06/12/2018 14:19:14 06/12/20 18 06/12/2018 CBC w/ auto diff granulocytes , immature (%) 0.4 % 0.0-0. 9 Not Available [facility] [address] [place], [address], 06/12/2018 14:19:14 06/12/20 18 06/12/2018 CBC w/ auto diff absolute neuts 11.63 K/uL 1.40-7 .70 high Not Available [facility] [address] [place] [address], [id number], 06/12/2018 14:19:14 06/12/20 18 06/12/2018 CBC w/ auto diff absolute lymphs 1.24 K/uL 0.60-3 .20 Not Available [facility] [address] [place], [address], 06/12/2018 14:19:14 06/12/20 18 06/12/2018 CBC w/ auto diff absolute monos 0.57 K/uL 0.11-0 .59 Not Available [facility] [address] [place], [address], 06/12/2018 14:19:14 06/12/20 18 06/12/2018 CBC w/ auto diff absolute eos 0.13 K/uL 0.01-0 .50 Not Available [facility] [address] [place], [address], 06/12/2018 14:19:14 06/12/20 18 06/12/2018 CBC w/ auto diff absolute basos 0.09 K/uL 0.00-0 .08 high Not Available [facility] [address] [place], [address], 06/12/2018 14:19:14 06/12/20 18 06/12/2018 CBC w/ auto diff granulocytes , immature 0.05 K/uL 0.00-0 .05 Not Available [facility] [address] [place] [address], [id number], 06/12/2018 14:19:14 06/12/20 18 06/12/2018 CMP, serum or plasm a sodium 139 mmol/ L 133-14 6 Not Available [facility] [address] [place] [address], [address], 06/12/2018 15:13:28 06/12/20 18 06/12/2018 CMP, serum or plasm a potassium 4.6 mmol/ L 3.3-5. 1 Not Available [facility] [address] [place], [address], 06/12/2018 15:13:28 06/12/20 18 06/12/2018 CMP, serum or plasm a chloride 99 mmol/ L 96-108 Not Available [facility] [address] [place], [address], 06/12/2018 15:13:28 06/12/20 18 06/12/2018 CMP, serum or plasm a CO2 28 mmol/ L 21-35 Not Available [facility] [address] [place], [address], 06/12/2018 15:13:28 06/12/20 18 06/12/2018 CMP, serum or plasm a BUN 22 mg/dL 6-19 high Not Available [facility] [address] [place], [address], 06/12/2018 15:13:28 06/12/20 18 06/12/2018 CMP, serum or plasm a creatinine 0.90 mg/dL 0.5-1. 5 Not Available [facility] [address] [place], [address], 06/12/2018 15:13:28 06/12/20 18 06/12/2018 CMP, serum or plasm a glucose 104 mg/dL 70-99 high Not Available [facility] [address] [place], [address], 06/12/2018 15:13:28 06/12/20 18 06/12/2018 CMP, serum or plasm a albumin 4.4 g/dL 3.9-4. 8 Not Available [facility] [address] [place], [address], 06/12/2018 15:13:28 06/12/20 18 06/12/2018 CMP, serum or plasm a total protein 6.9 g/dL 6.5-8. 0 Not Available [facility] [address] [place], [address], 06/12/2018 15:13:28 06/12/20 18 06/12/2018 CMP, serum or plasm a calcium 9.3 mg/dL 8.4-10 .3 Not Available [facility] [address] [place], [address], 06/12/2018 15:13:28 06/12/20 18 06/12/2018 CMP, serum or plasm a alkaline phosphatase 82 U/L 39-117 Not Available [facility] [address] [place] [address], [address], 06/12/2018 15:13:28 06/12/20 18 06/12/2018 CMP, serum or plasm a total bilirubin 0.4 mg/dL 0.0-1. 2 Not Available [facility] [address] [place] [address], [id number], 06/12/2018 15:13:28 06/12/20 18 06/12/2018 CMP, serum or plasm a AST 16 U/L 0-37 Not Available [facility] [address] [place], [address], 06/12/2018 15:13:28 06/12/20 18 06/12/2018 CMP, serum or plasm a ALT 18 U/L 0-40 Not Available [facility] [address] [place], [address], 06/12/2018 15:13:28 06/12/20 18 06/12/2018 CMP, serum or plasm a globulin 2.5 g/dL 1-4.8 Not Available [facility] [address] [place], [address], 06/12/2018 15:13:28 06/12/20 18 06/12/2018 CMP, serum or plasm a eGFR 66 mL/mi n/1.7 3m2 >59 If patie nt is black , multi ply resul t by 1.159 . Estim ated glome rular filtr ation rate calcu lated using the CKD-E PI equat ion. Not Available [facility] [address] [place] [address], [address], 06/12/2018 15:13:28 06/12/20 18 06/12/2018 CMP, serum or plasm a anion gap 17 mmol/ L 10-20 Not Available [facility] [address] [place], [address], 06/12/2018 15:13:28 06/12/20 18 06/12/2018 C-andra ctive prote in, quant itati ve, serum or plasm a C reactive protein 3.3 mg/L 0.0-4. 0 Not Available [facility] [address] [place] [address], [address], 06/12/2018 15:13:30 06/12/20 18 06/13/2018 HBsAg (hepa titis B surfa ce Ag), serum HBV surface antigen Negati ve negati ve Not Available [facility] [address] [place] [address], [address], 06/13/2018 10:03:22 06/12/20 18 06/13/2018 hepat itis B virus core Ab, quali tativ e, serum hep B core Ab, tot Negati ve negati ve Not Available [facility] [address] [place], [address], 06/13/2018 10:03:24 06/12/20 18 06/14/2018 tb (M [...] a level <0.35 IU/mL . Not Available [facility] [address] [place] [address], [address], 06/14/2018 19:02:21 06/12/20 18 06/14/2018 tb (M tuber culos is), ifn-g deonte sai , blood TB1 Ag minus nil 0.11 IU/mL Not Available [facility] [address] [place] [address], [address], 06/14/2018 19:02:21 06/12/20 18 06/14/2018 tb (M tuber culos is), ifn-g deonte sai , blood TB2 Ag minus nil 0.00 IU/mL Not Available [facility]) [address] [place] [address], [address], 06/14/2018 19:02:21 06/12/20 18 06/14/2018 tb (M tuber culos is), ifn-g deonte sai , blood mitogen minus nil 2.75 IU/mL Not Available [facility]) [address] [place] [address], [address], 06/14/2018 19:02:21 06/12/20 18 06/14/2018 tb (M tuber culos is), ifn-g deonte sai , blood nil result 0.01 IU/mL Not Available [facility]) [address] [place] [address], [address], 06/14/2018 19:02:21 10/18/19 19 10/17/2018 CBC w/ auto diff WBC 10.03 K/uL 3.40-1 1.20 Not Available [facility] [address] [place], [address], 10/17/2018 15:41:19 10/18/19 19 10/17/2018 CBC w/ auto diff RBC 4.02 M/uL 3.80-4 .80 Not Available [facility] [address] [place] [address], [address], 10/17/2018 15:41:19 10/18/19 19 10/17/2018 CBC w/ auto diff HGB 11.9 g/dL 12.0-1 5.0 low Not Available [facility] [address] [place] [address], [address], 10/17/2018 15:41:19 10/18/19 19 10/17/2018 CBC w/ auto diff HCT 35.2 % 36.0-4 6.0 low Not Available [facility] [address] [place] [address], [address], 10/17/2018 15:41:19 10/18/19 19 10/17/2018 CBC w/ auto diff plt 236 K/uL 130-40 0 Not Available [facility] [address] [place] [address], [address], 10/17/2018 15:41:19 10/18/19 19 10/17/2018 CBC w/ auto diff MCV 87.6 fL 79.0-9 8.0 Not Available [facility] [address] [place] [address], [address], 10/17/2018 15:41:19 10/18/19 19 10/17/2018 CBC w/ auto diff MCH 29.6 pg 27.0-3 4.8 Not Available [facility] [address] [place], [address], 10/17/2018 15:41:19 10/18/19 19 10/17/2018 CBC w/ auto diff MCHC 33.8 g/dL 31.5-3 6.0 Not Available [facility] [address] [place], [address], 10/17/2018 15:41:19 10/18/19 19 10/17/2018 CBC w/ auto diff RDW 12.9 % 10.8-1 4.6 Not Available [facility] [address] [place], [address], 10/17/2018 15:41:19 10/18/19 19 10/17/2018 CBC w/ auto diff MPV 11.0 fL 9.4-12 .4 Not Available [facility] [address] [place], [address], 10/17/2018 15:41:19 10/18/19 19 10/17/2018 CBC w/ auto diff NRBC 0.00 /100_ WBCs 0.00 Not Available [facility] [address] [place], [address], 10/17/2018 15:41:19 10/18/19 19 10/17/2018 CBC w/ auto diff absolute NRBC 0.00 K/uL 0.00 Not Available [facility] [address] [place], [address], 10/17/2018 15:41:19 10/18/19 19 10/17/2018 CBC w/ auto diff diff method Auto Not Available [facility] [address] [place], [address], 10/17/2018 15:41:19 10/18/19 19 10/17/2018 CBC w/ auto diff neuts 70.1 % 45.30- 77.70 Not Available [facility] [address] [place], [address], 10/17/2018 15:41:19 10/18/19 19 10/17/2018 CBC w/ auto diff lymphs 18.2 % 12.30- 39.70 Not Available [facility] [address] [place] [address], [address], 10/17/2018 15:41:19 10/18/19 19 10/17/2018 CBC w/ auto diff monos 7.4 % 4.10-1 2.80 Not Available [facility] [address] [place] [address], [address], 10/17/2018 15:41:19 10/18/19 19 10/17/2018 CBC w/ auto diff eos 2.8 % 0-7.2 Not Available [facility] [address] [place] [address], [address], 10/17/2018 15:41:19 10/18/19 19 10/17/2018 CBC w/ auto diff basos 1.1 % 0-2.80 Not Available [facility] [address] [place] [address], [address], 10/17/2018 15:41:19 10/18/1910/17/2018 CBC w/ auto diff granulocytes , immature (%) 0.4 % 0.0-0. 9 Not Available [facility] [address] [place] [address], [address], 10/17/2018 15:41:19 10/18/1910/17/2018 CBC w/ auto diff absolute neuts 7.03 K/uL 1.40-7 .70 Not Available [facility] [address] [place] [address], [address], 10/17/2018 15:41:19 10/18/19 19 10/17/2018 CBC w/ auto diff absolute lymphs 1.83 K/uL 0.60-3 .20 Not Available [facility] [address] [place], [address], 10/17/2018 15:41:19 10/18/19 19 10/17/2018 CBC w/ auto diff absolute monos 0.74 K/uL 0.11-0 .59 high Not Available [facility] [address] [place], [address], 10/17/2018 15:41:19 10/18/19 19 10/17/2018 CBC w/ auto diff absolute eos 0.28 K/uL 0.01-0 .50 Not Available [facility]) [address] [place], [address], 10/17/2018 15:41:19 10/18/19 19 10/17/2018 CBC w/ auto diff absolute basos 0.11 K/uL 0.00-0 .08 high Not Available [facility] [address] [place], [address], 10/17/2018 15:41:19 10/18/19 19 10/17/2018 CBC w/ auto diff granulocytes , immature 0.04 K/uL 0.00-0 .05 Not Available [facility] ([facility] [address] [place], [address], 10/17/2018 15:41:19 10/18/19 19 10/17/2018 eryth rocyt e sedim entat ion rate by prema sanchezo d ESR 5 mm/h 0-30 Not Available [facility] (Outpatient[facility] [address] [place], [address], 10/17/2018 16:22:09 10/18/19 19 10/17/2018 CMP, serum or plasm a sodium 143 mmol/ L 133-14 6 Not Available [facility] (Out[facility]) [address] [place], [address], 10/17/2018 16:48:20 10/18/19 19 10/17/2018 CMP, serum or plasm a potassium 4.3 mmol/ L 3.3-5. 1 Not Available [facility] (Out[facility] [address] [place], [address], 10/17/2018 16:48:20 10/18/19 19 10/17/2018 CMP, serum or plasm a chloride 104 mmol/ L 96-108 Not Available [facility] (Out[facility]) [address] [place], [address], 10/17/2018 16:48:20 10/18/19 19 10/17/2018 CMP, serum or plasm a CO2 26 mmol/ L 21-35 Not Available [facility]Out[facility] [address] [place], [address], 10/17/2018 16:48:20 10/18/19 19 10/17/2018 CMP, serum or plasm a BUN 28 mg/dL 6-19 high Not Available [facility]Out[facility]) [address] [place], [address], 10/17/2018 16:48:20 10/18/19 19 10/17/2018 CMP, serum or plasm a creatinine 1.00 mg/dL 0.5-1. 5 Not Available [facility] [address] [place], [address], 10/17/2018 16:48:20 10/18/19 19 10/17/2018 CMP, serum or plasm a glucose 127 mg/dL 70-99 high Not Available [facility]Out[facility]) [address] [place], [address], 10/17/2018 16:48:20 10/18/19 19 10/17/2018 CMP, serum or plasm a albumin 4.3 g/dL 3.9-4. 8 Not Available [facility] [address] [place], [address], 10/17/2018 16:48:20 10/18/19 19 10/17/2018 CMP, serum or plasm a total protein 6.9 g/dL 6.5-8. 0 Not Available [facility] [address] [place], [address], 10/17/2018 16:48:20 10/18/19 19 10/17/2018 CMP, serum or plasm a calcium 9.5 mg/dL 8.4-10 .3 Not Available [facility] [address] [place], [address], 10/17/2018 16:48:20 10/18/19 19 10/17/2018 CMP, serum or plasm a alkaline phosphatase 74 U/L 39-117 Not Available [facility] (Outpatient) [address] [place], [address], 10/17/2018 16:48:20 10/18/19 19 10/17/2018 CMP, serum or plasm a total bilirubin 0.3 mg/dL 0.0-1. 2 Not Available [facility] (Out[facility] [address] [place], [address], 10/17/2018 16:48:20 10/18/19 19 10/17/2018 CMP, serum or plasm a AST 19 U/L 0-37 Not Available [facility]) [address] [place] [address], [address], 10/17/2018 16:48:20 10/18/19 19 10/17/2018 CMP, serum or plasm a ALT 17 U/L 0-40 Not Available [facility] [address] [place], [address], 10/17/2018 16:48:20 10/18/19 19 10/17/2018 CMP, serum or plasm a globulin 2.6 g/dL 1-4.8 Not Available [facility] (Out[facility]) [address] [place], [address], 10/17/2018 16:48:20 10/18/19 19 10/17/2018 CMP, serum or plasm a eGFR 58 mL/mi n/1.7 3m2 >59 low If patie nt is black , multi ply resul t by 1.159 . Estim ated glome rular filtr ation rate calcu lated using the CKD-E PI equat ion. Not Available [facility] (Out[facility]) [address] [place], [address], 10/17/2018 16:48:20 10/18/19 19 10/17/2018 CMP, serum or plasm a anion gap 17 mmol/ L 10-20 Not Available [facility]) [address] [place] [address], [address], 10/17/2018 16:48:20 10/18/19 19 10/17/2018 C-andra ctive prote in, quant itati ve, serum or plasm a C reactive protein 6.2 mg/L 0.0-4. 0 high Not Available [facility]) [address] [place] [address], [address], 10/17/2018 16:48:21 01/17/20 19 01/16/2019 CBC w/ auto diff WBC 10.98 K/uL 3.40-1 1.20 Not Available [facility] [address] [place] [address], [address], 01/16/2019 16:23:22 01/17/20 19 01/16/2019 CBC w/ auto diff RBC 4.04 M/uL 3.80-4 .80 Not Available [facility]) [address] [place] [address], [address], 01/16/2019 16:23:22 01/17/20 19 01/16/2019 CBC w/ auto diff HGB 11.9 g/dL 12.0-1 5.0 low Not Available [facility] [address] [place], [address], 01/16/2019 16:23:22 01/17/20 19 01/16/2019 CBC w/ auto diff HCT 35.3 % 36.0-4 6.0 low Not Available [facility] [address] [place], [address], 01/16/2019 16:23:22 01/17/20 19 01/16/2019 CBC w/ auto diff plt 274 K/uL 130-40 0 Not Available [facility] [address] [place], [address], 01/16/2019 16:23:22 01/17/20 19 01/16/2019 CBC w/ auto diff MCV 87.4 fL 79.0-9 8.0 Not Available [facility] [address] [place], [address], 01/16/2019 16:23:22 01/17/20 19 01/16/2019 CBC w/ auto diff MCH 29.5 pg 27.0-3 4.8 Not Available [facility] [address] [place], [address], 01/16/2019 16:23:22 01/17/20 19 01/16/2019 CBC w/ auto diff MCHC 33.7 g/dL 31.5-3 6.0 Not Available [facility]) [address] [place], [address], 01/16/2019 16:23:22 01/17/20 19 01/16/2019 CBC w/ auto diff RDW 13.3 % 10.8-1 4.6 Not Available [facility] [address] [place], [address], 01/16/2019 16:23:22 01/17/20 19 01/16/2019 CBC w/ auto diff MPV 11.7 fL 9.4-12 .4 Not Available [facility] [address] [place], [address], 01/16/2019 16:23:22 01/17/20 19 01/16/2019 CBC w/ auto diff NRBC 0.00 /100_ WBCs 0.00 Not Available [facility] [address] [place], [address], 01/16/2019 16:23:22 01/17/20 19 01/16/2019 CBC w/ auto diff absolute NRBC 0.00 K/uL 0.00 Not Available [facility] (Out[facility]) [address] [place], [address], 01/16/2019 16:23:22 01/17/20 19 01/16/2019 CBC w/ auto diff diff method Auto Not Available [facility]) [address] [place] [address], [address], 01/16/2019 16:23:22 01/17/20 19 01/16/2019 CBC w/ auto diff neuts 81.4 % 45.30- 77.70 high Not Available [facility]Out[facility]) [address] [place], [address], 01/16/2019 16:23:22 01/17/20 19 01/16/2019 CBC w/ auto diff lymphs 10.6 % 12.30- 39.70 low Not Available [facility] (Out[facility]) [address] [place], [address], 01/16/2019 16:23:22 01/17/20 19 01/16/2019 CBC w/ auto diff monos 4.7 % 4.10-1 2.80 Not Available [facility] ([facility]) [address] [place], [address], 01/16/2019 16:23:22 01/17/20 19 01/16/2019 CBC w/ auto diff eos 2.0 % 0-7.2 Not Available [facility] ([facility]) [address] [place], [address], 01/16/2019 16:23:22 01/17/20 19 01/16/2019 CBC w/ auto diff basos 1.0 % 0-2.80 Not Available [facility] ([facility]) [address] [place], [address], 01/16/2019 16:23:22 01/17/20 19 01/16/2019 CBC w/ auto diff granulocytes , immature (%) 0.3 % 0.0-0. 9 Not Available [facility] (Out[facility]) [address] [place], [address], 01/16/2019 16:23:22 01/17/20 19 01/16/2019 CBC w/ auto diff absolute neuts 8.94 K/uL 1.40-7 .70 high Not Available [facility] ([facility]) [address] [place], [address], 01/16/2019 16:23:22 01/17/20 19 01/16/2019 CBC w/ auto diff absolute lymphs 1.16 K/uL 0.60-3 .20 Not Available [facility] (Out[facility]) [address] [place], [address], 01/16/2019 16:23:22 01/17/20 19 01/16/2019 CBC w/ auto diff absolute monos 0.52 K/uL 0.11-0 .59 Not Available [facility] (Out[facility]) [address] [place], [address], 01/16/2019 16:23:22 01/17/20 19 01/16/2019 CBC w/ auto diff absolute eos 0.22 K/uL 0.01-0 .50 Not Available [facility] (Out[facility]) [address] [place], [address], 01/16/2019 16:23:22 01/17/20 19 01/16/2019 CBC w/ auto diff absolute basos 0.11 K/uL 0.00-0 .08 high Not Available [facility] (Outpatient) [address] [place], [address], 01/16/2019 16:23:22 01/17/20 19 01/16/2019 CBC w/ auto diff granulocytes , immature 0.03 K/uL 0.00-0 .05 Not Available [facility] (Out[facility]) [address] [place], [address], 01/16/2019 16:23:22 01/17/20 19 01/16/2019 eryth rocyt e sedim entat ion rate by prema sanchezo d ESR 9 mm/h 0-30 Not Available [facility] (Out[facility]) [address] [place], [address], 01/16/2019 17:39:50 01/17/20 19 01/16/2019 C-andra ctive prote in, quant itati ve, serum or plasm a C reactive protein 5.2 mg/L 0.0-4. 0 high Not Available [facility] (Out[facility]) [address] [place], [address], 01/16/2019 18:50:56 01/17/20 19 01/16/2019 CMP, serum or plasm a sodium 141 mmol/ L 133-14 6 Not Available [facility] (Out[facility]) [address] [place], [address], 01/16/2019 22:11:00 01/17/20 19 01/16/2019 CMP, serum or plasm a potassium 4.4 mmol/ L 3.3-5. 1 Not Available [facility] (Outpatient) [address] [place], [address], 01/16/2019 22:11:00 01/17/20 19 01/16/2019 CMP, serum or plasm a chloride 102 mmol/ L 96-108 Not Available [facility] (Out[facility]) [address] [place], [address], 01/16/2019 22:11:00 01/17/20 19 01/16/2019 CMP, serum or plasm a CO2 23 mmol/ L 21-35 Not Available [facility] (Out[facility]) [address] [place], [address], 01/16/2019 22:11:00 01/17/20 19 01/16/2019 CMP, serum or plasm a BUN 23 mg/dL 6-19 high Not Available [facility] (Out[facility]) [address] [place], [address], 01/16/2019 22:11:00 01/17/20 19 01/16/2019 CMP, serum or plasm a creatinine 1.50 mg/dL 0.5-1. 5 Not Available [facility] (Out[facility]) [address] [place], [address], 01/16/2019 22:11:00 01/17/20 19 01/16/2019 CMP, serum or plasm a glucose 161 mg/dL 70-99 high Not Available [facility] (Outpatient) [address] [place], [address], 01/16/2019 22:11:00 01/17/20 19 01/16/2019 CMP, serum or plasm a albumin 4.0 g/dL 3.9-4. 8 Not Available [facility] (Outpatient) [address] [place], [address], 01/16/2019 22:11:00 01/17/20 19 01/16/2019 CMP, serum or plasm a total protein 6.8 g/dL 6.5-8. 0 Not Available [facility] (Outpatient) [address] [place], [address], 01/16/2019 22:11:00 01/17/20 19 01/16/2019 CMP, serum or plasm a calcium 9.0 mg/dL 8.4-10 .3 Not Available [facility] (Outpatient) [address] [place], [address], 01/16/2019 22:11:00 01/17/20 19 01/16/2019 CMP, serum or plasm a alkaline phosphatase 78 U/L 39-117 Not Available [facility] (Outpatient) [address] [place], [address], 01/16/2019 22:11:00 01/17/20 19 01/16/2019 CMP, serum or plasm a total bilirubin 0.4 mg/dL 0.0-1. 2 Not Available [facility] (Out[facility]) [address] [place] [address], [address], 01/16/2019 22:11:00 01/17/20 19 01/16/2019 CMP, serum or plasm a AST 21 U/L 0-37 Not Available [facility] (Outpatient) [address] [place] [address], [address], 01/16/2019 22:11:00 01/17/20 19 01/16/2019 CMP, serum or plasm a ALT 19 U/L 0-40 Not Available [facility] (Out[facility]) [address] [place] [address], [address], 01/16/2019 22:11:00 01/17/2001/16/2019 CMP, serum or plasm a globulin 2.8 g/dL 1-4.8 Not Available [facility] (Outpatient) [address] [place], [address], 01/16/2019 22:11:00 01/17/2001/16/2019 CMP, serum or plasm a eGFR 35 mL/mi n/1.7 3m2 >59 low If patie nt is black , multi ply resul t by 1.159 . Estim ated glome rular filtr ation rate calcu lated using the CKD-E PI equat ion. Not Available [facility] (Outpatient) [address] [place] [address], [address], 01/16/2019 22:11:00 01/17/20 19 01/16/2019 CMP, serum or plasm a anion gap 20 mmol/ L 10-20 Not Available [facility] (Outpatient) [address] [place], [address], 01/16/2019 22:11:00 06/12/20 18 06/12/2018 xr chest [...] Final result Pt states sob NATALIE WALLYLISANDRO [facility]Robert [facility] [address] [place] [address], [address], 06/12/2018 20:56:35 09/07/19 19 09/06/2018 bd dxa [...] Jane MD 9 Final result NATALIE Kaur d[facility]Robert [facility] [address] [place], [address], 09/08/2018 18:43:16 Result Notes None recorded. Problems Name Problem SNOMED Code Status Onset Date Resolution Date Notes Provider Name and Address Organization Details Recorded Time Diabetic on insulin 289157210 Active Natalie Reveles MD [address] [place] [address] Betty Hernán[place], [address], [facility] 6 12:19:12 Contact dermatit is 74804206 Completed 11/06/2009 Natalie Reveles MD [address] [place], [place] [address], [address], [facility] 6 15:03:24 Rheumato id arthriti s 55470307 Active sero-nega tive Natalie Reveles MD [address] [place] [address] Betty Hernán[place], [address], [facility] 6 12:19:12 Acute sinusiti s 59217525 Completed 05/14/2013 Natalie Reveles MD [address] [place], [place] [address], [address], [facility] 6 15:03:24 Common cold 59551669 Completed 05/14/2013 Natalie Reveles MD [address] [place] [address] Betty Hernán[place], [address], [facility] 6 15:03:24 Generali zed osteoart hritis 138402324 Completed 200006/12/2013 Natalie Reveles MD [address] [place] [address] Betty Hernán[place], [address], [facility] 6 15:03:24 Vaginiti s and vulvovag initis Completed 200011/06/2009 Natalie Reveles MD [address] [place] [address] Betty Hernán[place], [address], [facility] 6 15:03:24 Cellulit is and abscess of buttock 824098236 Completed 200011/06/2009 Natalie Reveles MD [address] [place] [address] Betty Hernán[place], [address], [facility] 6 15:03:24 Hyperlip idemia 14965301 Completed 200111/06/2009 Natalie Reveles MD [address] [place] [address] Betty Hernán[place], [address], [facility] 6 15:03:24 Malaise and fatigue 335825993 Completed 200111/06/2009 Natalie Reveles MD [address] [place] [address] Betty Hernán[place], [address], [facility] 6 15:03:24 Mixed hyperlip idemia 158177637 Active 2001 Natalie Reveles MD [address] [place], [place] [address], [address], [facility] 6 12:19:12 Benign essentia l hyperten lindsay 5674691 Active 2001 Natalie Reveles MD [address] [place], [place] [address], [address], [facility] 6 12:19:12 Allergic asthma without status asthmati cus 64467976 Active 2002 Natalie Reveles MD [address] [place] [address] Betty Hernán[place], [address], [facility] 6 15:03:24 Common cold 80250436 Completed 200211/06/2009 Natalie Reveles MD [address] [place] [address] Betty Hernán[place], [address], [facility] 6 15:03:24 Primary fibromya lgia syndrome 71888586 Completed 200211/06/2009 Natalie Reveles MD [address] [place], [place] [address], [address], [facility] 6 15:03:24 Acute maxillar y sinusiti s 03135965 Completed 200311/06/2009 Natalie Reveles MD [address] [place] [address] Betty Hernán[place], [address], [facility] 6 15:03:24 Essentia l hyperten lindsay 43467456 Completed 200311/06/2009 Natalie Reveles MD [address] [place] [address] Betty Hernán[place] [address] 1, [facility] 6 15:03:24 Mononeur itis 19676108 Active 2003 Natalie Reveles MD [address] [place] [address] Betty Hernán[place], [address], [facility] 6 15:03:24 Blood chemistr y outside referenc e range 821108721 Completed 200311/06/2009 Natalie Reveles MD [address] [place] [address] Betty Hernán[place] [address], [facility] 6 15:03:24 Acute cystitis 12636838 Completed 200411/06/2009 Natalie Reveles [place] [facility] [place], [address], [facility] 6 15:03:24 Cough 17985103 Completed 200411/06/2009 Natalie Reveles [place] [place], [address], [facility] 6 15:03:24 Type 2 diabetes 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 complica tion 347521265 Active 2004 Natalie Reveles [place] [facility] [place], [address], [facility] 6 12:19:12 Arteriti s 35834159 Completed 200511/06/2009 Natalie Reveles [place] [place], [address], [facility] 6 15:03:24 On examinat ion - a rash Completed 200511/06/2009 Natalie Reveles MD [address] [place], [place] [address], [address], [facility] 6 15:03:24 Allergic rhinitis 36798281 Completed 200511/06/2009 [place], [address], [facility] 6 15:03:24 Anemia 269599762 Completed 200611/06/2009 Natalie Reveles MD [address] [place], [place] [address], [address], [facility] 6 15:03:24 Hypothyr oidism 66659709 Completed 200607/22/2015 [place], [address], [facility] 6 15:03:24 Nausea 235460997 Completed 200611/06/2009 [place], [address], [facility] 6 15:03:24 Nausea and vomiting 58227590 Completed 200611/06/2009 Natalie Reveles MD [address] [place] [address] Betty Hernán[place], [address], [facility] 6 15:03:24 Fever 096552227 Completed 200611/06/2009 Natalie Reveles MD [address] [place] [address] Betty Hernán[place], [address], [facility] 6 15:03:24 General symptom 335167386 Completed 200611/06/2009 Natalie Reveles MD [address] [place] [address] Betty Hernán[place], [address], [facility] 6 15:03:24 Colitis, enteriti s and gastroen teritis presumed infectio us 341034824 Completed 200611/06/2009 Natalie Reveles MD [address] [place] [address] Betty Hernán[place], [address], [facility] 6 15:03:24 Uncontro lled type 2 diabetes mellitus 428134681 Completed 200606/12/2013 Natalie Reveles MD [address] [place] [address] Betty Hernán[place], [address] 1, [facility] 6 15:03:24 Urinary tract infectio us disease 66962834 Completed 200711/06/2009 Natalie Reveles MD [address] [place] [address] Betty Hernán[place], [address], [facility] 6 15:03:24 Osteoart hritis 016095069 Completed 200711/06/2009 Natalie Reveles MD [address] [place] [address] Betty Hernán[place], [address], [facility] 6 15:03:24 Acute pain 488444280 Completed 200711/06/2009 Natalie Reveles MD [address] [place] [address] Betty Hernán[place], [address], [facility] 6 15:03:24 Backache 893024546 Completed 200711/06/2009 Natalie Reveles MD [address] [place], [place] [address], [address], [facility] 6 15:03:24 Sciatica 76357390 Active 2007 spinal stenosis Natalie Reveles MD [address] [place], [place] [address], [address], [facility] 6 15:03:24 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 9 15:48:05 Problem Notes None recorded. Procedures Surgical History Date Name Laterality Status Provider Name and Address Organization Details Recorded Time 9 Medicare Wellness Visit completed Sarah Jewell MA [facility] 12/31/2018 14:43:15 8 Medicare Wellness Visit completed Liz Boyce CMA [facility] 12/27/2017 15:09:17 8 Post hospital/SNF follow-up/Boles sitional Care completed Liz Boyce CMA [facility] 11/13/2017 14:14:12 8 Nebulizer Tx completed Karmen White LPN [facility] 08/02/2017 14:24:48 7 Medicare Wellness Visit completed Mary Finley MA [facility] 12/25/2016 09:27:15 Imaging Results None recorded. Procedure Notes None recorded. Medical Equipment None Reported. Allergies Allergen ID Allergen Name Allergen Category Reaction Reaction Severity Criticality Documentation Date Start Date Code Code System Note Provider Name and Address Organization Details Recorded Time 964970 doxycycli ne Not available nausea Not available Not available 11/27/[address] [facility] 4 10:10:57 853365 codeine medicatio n nausea Not available Not available 08/17/2015 2670 RxNorm Angelicabaylee Hicks CMA [facility] 6 16:23:36 11473 Substance with sulfonami de structure and antibacte rial mechanism of action (substanc e) medicatio n hives Not available Not available 06/29/2010 35673 8003 SNOMED Not Available [facility] 1 06:05:41 Medications Name Sig Start [...] Not Available Not Available No t Available dooToWummelbox Ultra Test strips USE TO TEST 3-4 [...] EVERY DAY AT BEDTIME 11/13 completed per [facility] d/c 11/08/17 new dose as follows: [...] Updated DateTime 08/29/2018 147.95 cm 35.7 kg/m2 87742.69 g 64 /min 90/54 mm[Hg] Marcia Baron [facility] 08/29/2018 11:24:40 Date Recorded Systolic And Diastolic Systolic And Diastolic Provider Name and Address Organization Details Last Updated DateTime 12/31/2018 120/60 mm[Hg] 120/60 mm[Hg] Kassie Mcmillanan [facility] 12/31/2018 15:58:43 Date Recorded Body height Body mass index (BMI) Body weight Oxygen saturation Oxygen saturation in Arterial blood by Pulse oximetry Heart rate Systolic And Diastolic Provider Name and Address Organization Details Last Updated DateTime 9 147.95 cm 36.3 kg/m2 96571.7 6 g 96 % 96 % 76 /min 120/62 mm[Hg] Sarah Jewell [facility] 9 14:52:36 Date Recorded Body height Body mass index (BMI) Body weight Body temperature Heart rate Oxygen saturation Oxygen saturation in Arterial blood by Pulse oximetry Systolic And Diastolic Provider Name and Address Organization Details Last Updated DateTime 9 147.95 cm 35.9 kg/m2 18079.5 8 g 97.9 [degF] 88 /min 96 % 96 % 114/62 mm[Hg] Brooks laurent [facility] 9 09:44:29 Date Recorded Body height Body mass index (BMI) Body weight Heart rate Oxygen saturation Oxygen saturation in Arterial blood by Pulse oximetry Systolic And Diastolic Provider Name and Address Organization Details Last Updated DateTime 8 147.95 cm 35.9 kg/m2 89874.1 8 g 80 /min 97 % 97 % 126/74 mm[Hg] Sarah Jewell [facility] 8 10:50:58 Social History Question Answer Notes LastModified by Organizat ion Details LastModified Time Tobacco Smoking Status Never Smoker Not Available [employer] 05/11/2011 04:54:19 Do You Have An Advance Directive? No Information not available 12/11/2013 Do You Wear A Helmet When Biking? No Information not available 06/23/2014 What Is Your Level Of Caffeine Consumption? Moderate 4 [employer]ups Tea Daily [email or web address] Information not available 12/27/2017 How Much Tobacco [...] toxoid, unspecified formulation 1 completed Not Available [facility] 07/12/2019 02:34:13 influenza, unspecified formulation 0 completed Not Available [facility] 05/10/2011 05:22:52 Influenza, split virus, trivalent, preservative [address] [facility] 05/17/2011 14:09:08 Tdap 1 completed Fang Robison RN [facility] 06/12/2011 16:12:51 influenza, unspecified formulation 2 [facility]2012 16:38:35 influenza, unspecified formulation 3 [facility] 06/12/2013 16:12:54 influenza, unspecified formulation 4 [facility] 06/23/2014 15:26:51 influenza, unspecified formulation 5 completed [facility] 04/29/2015 14:13:29 Pneumococcal conjugate PCV 13 8 completed Not Available [facility] 07/12/2019 02:22:36 Hep B, adult 9 completed Not Available [facility] 07/12/2019 02:34:54 influenza, unspecified formulation 6 completed Not Available [facility] 07/26/2019 02:10:42 pneumococcal polysaccharide PPV23 9 completed Not Available [facility] 07/12/2019 02:24:02 Influenza, split virus, quadrivalent, preservative [address] [facility] 05/03/2017 14:36:38 Past Encounters Encounter ID Performer Location Encounter Start Date Encounter Closed Date Diagnosis/Indication Diagnosis SNOMED-CT Code Diagnosis ICD10 Code Diagnosis Note [id number] Natalie Reveles MD , [facility], [address] [place] [address] 09/14/2000 12:00:00 07/15/2008 02:02:29 [id number] Natalie Reveles MD , [facility], [address] [place] [address] 10/16/2000 10:45:00 07/15/2008 02:02:29 [id number] Elvis Grover MD , [facility], [address] [place] [address] 02/28/2001 14:15:00 07/15/2008 02:02:29 [id number] Elvis Grover MD , [facility], [address] [place] [address] 03/01/2001 09:45:00 07/15/2008 02:02:29 [id number] Natalie Reveles MD , [facility], [address] [place] [address] 10/22/2001 09:00:00 07/15/2008 02:02:29 [id number] [facility] - [facility] [address] [place] [address] 10/22/2001 10:30:00 07/15/2008 02:02:29 [id number] Natalie Reveles MD , [facility], [address] [place] [address] 12/02/2001 08:19:54 07/15/2008 02:02:29 [id number] [facility] , [address] [address] 12/02/2001 11:21:25 07/15/2008 02:02:29 [id number] [facility] - [facility] [address] [place] [address] 04/24/2002 08:28:24 07/15/2008 02:02:29 [id number] Natalie Reveles MD , [facility], [address] [place] [address] 04/30/2002 16:42:20 07/15/2008 02:02:29 [id number] [facility] - [facility] [address] [place] [address] 07/22/2002 09:02:09 07/15/2008 02:02:29 [id number] Natalie Reveles MD , [facility], [address] [place] [address] 07/29/2002 16:39:59 07/15/2008 02:02:29 [id number] Natalie Reveles MD , [facility], [address] [place] [address] 10/30/2002 11:15:27 07/15/2008 02:02:29 [id number] [facility] - [facility] [address] [place] [address] 10/30/2002 12:12:41 07/15/2008 02:02:29 [id number] Natalie Reveles MD , [facility], [address] [place] [address] 12/31/2002 10:02:51 07/15/2008 02:02:29 [id number] [facility] - [address] [address] 12/31/2002 00:00:00 07/15/2008 02:02:29 [id number] [facility] LAB - [address] [address] 01/13/2003 11:28:31 07/15/2008 02:02:29 [id number] [facility] , [facility] [address] [place] [address] 01/15/2003 08:55:54 07/15/2008 02:02:29 [id number] ENRIKE Haq , [facility], [address] [place] [address] 07/03/2003 16:41:59 07/04/2003 10:51:01 [id number] Natalie Reveles MD , [facility], [address] [place] [address] 10/13/2003 14:52:44 10/14/2003 08:39:08 [id number] [facility] - [facility] [address] [place] [address] 10/22/2003 08:14:06 10/22/2003 08:14:10 [id number] Natalie Reveles MD , [facility], [address] [place] [address] 12/10/2003 14:34:40 12/12/2003 13:55:58 [id number] [facility] - [address] [address] 03/30/2004 08:05:15 03/30/2004 08:05:20 [id number] Natalie Reveles MD , [facility], [address] [place] [address] 07/04/2004 13:43:22 07/04/2004 17:14:21 [id number] Natalie Reveles MD , [facility], [address] [place] [address] 07/26/2004 09:25:43 07/27/2004 08:19:25 [id number] Natalie Reveles MD , [facility], [address] [place] [address] 08/08/2004 15:52:00 08/09/2004 08:55:32 [id number] Natalie Reveles MD [facility], [address] [place] [address] 09/05/2004 07:59:25 09/05/2004 15:25:12 [id number] ENRIKE Chambers , [facility], [address] [place] [address] 09/19/2004 13:51:52 09/19/2004 17:45:01 [id number] [facility] - [facility] [address] [place] [address] 10/05/2004 08:38:59 10/05/2004 08:39:04 [id number] MD RAJEEV Norwood, [facility], [address] [place] [address] 10/10/2004 07:58:34 10/10/2004 14:31:17 [id number] Valentine Mckenzie NP , [facility], [address] [place] [address] 11/03/2004 13:44:09 07/15/2008 02:02:29 [id number] [facility] - [facility] [address] [place] [address] 01/16/2005 08:22:10 01/16/2005 08:22:26 [id number] MD RAJEEV Norwood, [facility], [address] [place] [address] 01/24/2005 08:00:36 07/15/2008 02:02:29 [id number] [facility] Radiology , [facility] [address] [place] [address] 02/13/2005 11:40:53 07/15/2008 02:02:29 [id number] [facility] , [facility] [address] [place] [address] 02/13/2005 00:00:00 07/15/2008 02:02:29 [id number] Natalie Reveles MD , [facility], [address] [place] [address] 04/12/2005 08:22:15 07/15/2008 02:02:29 [id number] Rocky Lehman MD , [facility], [address] [place] [address] 04/28/2005 16:18:32 07/15/2008 02:02:29 [id number] [facility] - [address] [address] 08/22/2005 08:28:59 08/22/2005 08:29:02 [id number] MD RAJEEV Norwood, [facility], [address] [place] [address] 08/28/2005 15:40:14 08/29/2005 08:44:57 [id number] MD RAJEEV Norwood, [facility], [address] [place] [address] 09/21/2005 14:22:16 07/15/2008 02:02:29 [id number] [facility] - [facility] [address] [place] [address] 09/21/2005 15:10:47 09/21/2005 15:11:05 [id number] [facility] - [address] [address] 01/23/2006 08:32:14 01/23/2006 08:32:24 [id number] Natalie Reveles MD , [facility], OFF[address] [place] [address] 02/05/2006 11:04:33 02/06/2006 09:17:09 [id number] Natalie Reveles MD , [facility], [address] [place] [address] 03/21/2006 10:05:20 03/22/2006 08:20:24 [id number] MD RAJEEV Norwood, [facility], OFF[address] [place] [address] 04/04/2006 11:34:15 04/08/2006 09:14:42 [id number] [facility] - [address] [address] 04/25/2006 08:18:53 04/25/2006 08:19:04 [id number] Natalie Reveles MD , [facility], [address] [place] [address] 05/03/2006 09:59:10 05/04/2006 08:46:05 [id number] [facility] Radiology , [address] [address] 05/08/2006 08:08:08 07/15/2008 02:02:29 [id number] [facility] , [address] [address] 05/08/2006 00:00:00 07/15/2008 02:02:29 [id number] Natalie Reveles MD , [facility], OFF[address] [place] [address] 07/31/2006 08:56:23 07/31/2006 14:16:09 [id number] [facility] - [address] [address] 07/31/2006 10:36:02 07/31/2006 10:36:06 [id number] MD RAJEEV Norwood, [facility], OFF[address] [place] [address] 08/07/2006 08:36:04 08/08/2006 08:58:07 [id number] [facility] - [address] [address] 10/22/2006 08:25:40 10/22/2006 08:25:45 [id number] Natalie Reveles MD , [facility], OFF[address] [place] [address] 10/29/2006 07:59:04 10/29/2006 10:37:03 [id number] [facility] - [address] [address] 10/30/2006 08:27:25 10/30/2006 08:27:30 [id number] Elvis Grover MD , [facility], [address] [place] [address] 11/26/2006 10:44:18 11/26/2006 15:10:48 [id number] [facility] - [address] [address] 11/26/2006 11:29:37 11/26/2006 11:29:44 [id number] Elvis Grover MD , [facility], [address] [place] [address] 12/06/2006 14:26:14 12/07/2006 08:30:34 [id number] Natalie Reveles MD , [facility], [address] [place] [address] 12/10/2006 13:46:03 12/11/2006 09:05:34 [id number] [facility] - [address] [address] 12/10/2006 14:31:03 12/10/2006 14:31:43 [id number] [facility] - [address] [address] 01/04/2007 07:54:29 01/04/2007 07:54:36 [id number] [facility] - [address] [address] 04/08/2007 08:14:44 04/08/2007 08:14:49 [id number] Natalie Reveles MD , [facility], [address] [place] [address] 04/15/2007 16:27:24 04/18/2007 08:58:27 [id number] [facility] , [facility] [address] [place] [address] 06/29/2007 09:23:36 07/01/2007 09:13:11 [id number] Natalie Reveles MD , [facility], [address] [place] [address] 09/20/2007 14:25:55 07/15/2008 02:02:29 [id number] Natalie Reveles MD , [facility], [address] [place] [address] 10/08/2007 14:05:16 07/15/2008 02:02:29 [id number] [facility] - [address] [address] 10/29/2007 08:19:39 10/29/2007 08:19:43 [id number] Natalei Reveles MD , [facility], [address] [place] [address] 11/05/2007 09:43:59 07/15/2008 02:02:29 [id number] [facility] - [address] [address] 11/12/2007 08:23:38 11/12/2007 08:23:44 [id number] [facility] - [address] [address] 01/17/2008 12:48:01 01/17/2008 12:48:16 [id number] Natalie Reveles MD , [facility], [address] [place] [address] 01/24/2008 14:09:47 07/15/2008 02:02:29 [id number] [facility] - [address] [address] 01/24/2008 15:39:37 01/24/2008 15:40:02 [id number] [facility] - [address] [address] 01/24/2008 00:00:00 07/15/2008 02:02:29 [id number] Natalie Reveles MD , [facility], [address] [place] [address] 03/30/2008 10:44:06 07/15/2008 02:02:29 [id number] Abigail catalan, PT Physical Therapy, [address] [address] 03/31/2008 11:58:11 04/01/2008 09:12:25 [id number] Abigail Carmita catalan, PT Physical Therapy, [address] [address] 04/02/2008 08:36:13 04/02/2008 16:25:15 [id number] Abigail Carmita catalan, PT Physical Therapy, [address] [address] 04/07/2008 08:34:12 04/07/2008 14:43:31 [id number] Abigail Carmita catalan, PT Physical Therapy, [address] [address] 04/09/2008 08:37:17 04/09/2008 15:42:30 [id number] Abigail Carmita catalan, PT Physical Therapy, [address] [address] 04/14/2008 08:31:29 04/14/2008 14:21:06 [id number] [facility] - [address] [address] 07/07/2008 11:15:56 07/07/2008 11:16:03 [id number] MD RAJEEV Norwood, [facility], OFFICE [address] [place] [address] 07/14/2008 13:28:43 07/24/2008 13:00:23 [id number] [facility] Radiology , [address] [address] 12/19/2008 08:52:20 12/22/2008 14:08:26 [id number] MAGGIE Mendoza, [facility], OFF[address] [place] [address] 06/24/2009 14:39:32 06/24/2009 16:02:12 [id number] MD RAJEEV Norwood, [facility], [address] [place] [address] 10/25/2009 13:26:11 11/10/2009 13:32:16 [id number] [facility] RADIOLOGY Technologi Radiology [address] [address] 10/25/2009 14:29:01 10/26/2009 11:21:38 [id number] MD RAJEEV Norwood, [facility], [address] [place] [address] 06/29/2010 11:23:06 07/26/2010 11:56:31 [id number] Natalie Reveles MD , [facility], [address] [place] [address] 09/22/2010 13:34:57 09/22/2010 17:04:13 [id number] Meghann Ayala NP , [facility], [address] [place] [address] 04/05/2011 09:42:34 04/05/2011 10:07:18 [id number] Oscar Islas MD , [facility], [address] [place] [address] 04/10/2011 09:24:01 04/11/2011 11:28:27 [id number] MD RAJEEV Norwood, [facility], [address] [place] [address] 05/17/2011 13:46:28 05/17/2011 15:12:35 [id number] [facility] Radiology , [facility] [address] [place] [address] 05/17/2011 14:58:54 05/22/2011 15:07:56 [id number] Natalie Reveles MD , [facility], [address] [place] [address] 05/26/2011 16:22:49 05/29/2011 14:16:46 [id number] Natalie Reveles MD , [facility], [address] [place] [address] 11/21/2011 11:10:29 11/21/2011 12:20:19 [id number] MD RAJEEV Norwood, [facility], [address] [place] [address] 05/21/2012 15:50:05 05/21/2012 17:16:10 [id number] ENRIKE Haq , [facility], [address] [place] [address] 08/06/2012 09:44:43 08/06/2012 10:34:24 [id number] MD RAJEEV Norwood, [facility], [address] [place] [address] 11/01/2012 15:29:43 11/04/2012 10:55:05 [id number] Natalie Reveles MD , [facility], [address] [place] [address] 02/21/2013 11:09:19 02/21/2013 12:15:52 Benign essential hypertension 7930053 continue to work on diet ,exercisea nd lowering salt intake as discussed Mixed hyperlipidemia 342228109 continue to work on diet and exercise as discussed Diabetic on insulin 249877991 Rheumatoid arthritis 72955282 [id number] Natalie Reveles MD , [facility], [address] [place] [address] 06/12/2013 15:53:14 06/12/2013 17:00:00 Benign essential hypertension 4478186 continue to work on diet ,exercisea nd lowering salt intake as discussed Mixed hyperlipidemia 517787424 continue to work on diet and exercise as discussed Adult [facility] th examination [id number] see Risk Assessment and Lifestyle Change Counseling section above Diabetic on insulin 276018539 Neuropathy due to diabetes mellitus 185620389 Mononeuritis 35083240 Rheumatoid arthritis 69546729 [id number] ISAAC Schumacher-VANESA , [facility], [address] [place] [address] 06/19/2013 13:36:30 06/19/2013 14:00:11 Acute sinusitis 47486590 sx tx including afrin- strt ab if no relief Common cold 38445382 Upp er Respirator y Infection Drink plenty [...] days, or you have a high fever. [id number] Natalie Reveles MD , [facility], [address] [place] [address] 09/23/2013 13:47:10 09/24/2013 10:04:00 Sinusitis 11833766 [id number] Rocky Lehman MD , [facility], [address] [place] [address] 09/29/2013 16:41:29 09/30/2013 09:41:00 Acute sinusitis 59411990 [id number] Meghann Ayala NP , [facility], [address] [place] [address] 11/27/2013 09:59:23 11/27/2013 16:10:44 Cough [id number] Natalie Reveles MD , [facility], [address] [place] [address] 12/11/2013 14:25:08 12/11/2013 15:34:31 Benign essential hypertension 1060774 continue to work on diet ,exercisea nd lowering salt intake as discussed Mixed hyperlipidemia 506419553 continue to work on diet and exercise as discussed Neuropathy due to diabetes mellitus 341451415 Diabetic on insulin 741559827 [id number] Natalie Reveles MD , [facility], [address] [place] [address] 06/23/2014 15:01:46 06/23/2014 16:03:39 Spinal stenosis of lumbar region 41967232 Neuropathy due to diabetes mellitus 516375390 Diabetic on insulin 261772957 Allergic a sthma without status asthmaticus 77897514 Mixed hyperlipidemia 381232606 continue to work on diet and exercise as discussed Mononeuritis 75159313 Rheumatoid arthritis 90405029 Type 2 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 774445495 [id number] Natalie Reveles MD , [facility], [address] [place] [address] 12/31/2014 14:26:47 12/31/2014 15:36:09 Benign essential hypertension 1447065 continue to work on diet, exercise, and lowering salt intake as discussed Blood pressure at goal Mixed hyperlipidemia 015535578 continue to work on diet and exercise as discussed Diabetic on insulin 790498398 Rheumatoid arthritis 38948776 [id number] Natalie Reveles MD , [facility], [address] [place] [address] 04/29/2015 13:53:38 04/29/2015 14:45:02 Benign essential hypertension 3483133 I10 continue to work on diet, exercise, and lowering salt intake as discussed Mixed hyperlipidemia 267 861138 E78.2 continue to work on diet and exercise as discussed Diabetic on insulin 1707 61136 Z79.4 Type 2 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 440702187 E11.9 Neuropathy due to diabetes mellitus 422525008 E11.42 Allergic a sthma without status asthmaticus 34639117 J45.909 Rheumatoid arthritis 698 75257 M06.9 [id number] Natalie Reveles MD , [facility], [address] [place] [address] 07/22/2015 14:47:13 07/22/2015 15:54:33 Benign essential hypertension 8134159 I10 Blood pressure at goal continue to work on diet, exercise, and lowering salt intake as discussed Mixed hyperlipidemia 267 163571 E78.2 continue to work on diet and exercise as discussed Adult [facility] th examination 286966208 Z00.00 see Risk Assessment and Lifestyle Change Counseling section above Neuropathy due to diabetes mellitus 150852346 E11.42 Diabetic on insulin 1707 47758 Z79.4 Hypothyroidism 85984935 E03.9 Rheumatoid arthritis 698 93192 M06.9 Spinal shara nosis of lumbar region 66773954 M48.06 Type 2 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 224444497 E11.9 [id number] Batsheva Cobb MD , [facility], [address] [place] [address] 08/17/2015 16:10:28 08/17/2015 16:58:40 Acute sinusitis 94294234 J01.90 Eczema 66702217 L30.9 Asthma 144013190 J45.90 9 Allergic rhinitis 488712 04 J30.9 [id number] Natalie Reveles MD , [facility], [address] [place] [address] 11/23/2015 14:02:11 11/23/2015 15:24:07 Benign essential hypertension 4786378 I10 Blood pressure at goal continue to work on diet, exercise, and lowering salt intake as discussed Mixed hyperlipidemia 267 913092 E78.2 Cholestero l is at goal Continue to work on diet and exercise as discussed Neuropathy due to diabetes mellitus 374709616 E11.42 Rheumatoid arthritis 698 93496 M06.9 Type 2 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 723765457 E11.9 Diabetic on insulin 1707 47386 Z79.4 [id number] Natalie Reveles MD , [facility], [address] [place] [address] 03/23/2016 14:19:29 03/23/2016 15:26:40 Benign essential hypertension 5306559 I10 Blood pressure at goal Blood pressure NOT at goal. Mixed hyperlipidemia 267 096090 E78.2 continue to work on diet and exercise as discussed Sinusitis 23783635 J32.9 Eczema 74211408 L30.9 Diabetic on insulin 1707 46984 Z79.4 Mononeuritis 21266726 G5 8.9 Rheumatoid arthritis 698 42249 M06.9 [id number] Natalie Reveles MD , [facility], [address] [place] [address] 06/13/2016 14:40:53 06/13/2016 15:36:21 Acute sinusitis 55456613 J01.90 [id number] Natalie Reveles MD , [facility], [address] [place] [address] 11/30/2016 13:57:42 11/30/2016 15:08:02 Diabetic on insulin 059699645 Z79.4 Type 2 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 549792391 E11.9 Mixed hyperlipidemia 267 917696 E78.2 continue to work on diet and exercise as discussed Acute sinusitis 56079766 J01.90 [id number] Natalie Reveles MD , [facility], [address] [place] [address] 12/25/2016 09:20:57 12/25/2016 10:34:52 Adult health examination 925298200 Z00.00 see Risk Assessment and Lifestyle Change Counseling section above Counseling [id number] Z71 .9 Mixed hyperlipidemia 267 031052 E78.2 continue to work on diet and exercise as discussed Benign ess ential hypertension 2154842 I10 Blood pressure at goal and re Mononeuritis 03678111 G5 8.9 Sciatica 40093030 M54.30 Diabetic on insulin 1707 29986 Z79.4 Rheumatoid arthritis 698 03840 M06.9 Neuropathy due to diabetes mellitus 708576141 E11.42 Hearing loss 94510009 H9 1.90 [id number] Natalie Reveles MD FP, [facility], [address] [place] [address] 05/03/2017 14:27:16 05/03/2017 15:21:54 Benign essential hypertension 6480644 I10 Blood pressure at goal . Mixed hyperlipidemia 267 821640 E78.2 continue to work on diet and exercise as discussed Sciatica 44092366 M54.30 Type 2 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 068224820 E11.9 Diabetic on insulin 1707 82650 Z79.4 Rheumatoid arthritis 698 56991 M06.9 [id number] Rachel Obrien NP FP, [facility], [address] [place] [address] 06/27/2017 15:27:55 06/27/2017 15:57:15 Acute sinusitis 58485836 J01.90 discussed tx options,. At this point will tx with abx, probiotics , nasal rinses and rest. RTC prn [id number] Mami Bernstein MD , [facility], [address] [place] [address] 08/02/2017 13:49:47 08/02/2017 14:54:19 Allergic asthma without status asthmaticus 41301920 J45.909 feels diminished and wheezingbr eath sounds goodafter neb a bit improvedpe ak flows lower range, not much changesubj ectively feels easier to deep breath after nebulizerb ut albuterol makes her jittery and she avoids it when possiblesh ort term trial inhaled steroidcon tinue proair as neededf/u if not improving Acute uppe r respiratory infection 04172297 J06.9 Kriss is presenting today with recurrent URI sxthis does sound like a new viral URI and not pna or recurrent sinus infections upportive instr giventx coughaugme nt asthma mgmt [id number] Natalie Reveles MD , [facility], [address] [place] [address] 09/13/2017 14:23:47 09/13/2017 15:31:30 Benign essential hypertension 0627005 I10 Blood pressure at goal Mixed hyperlipidemia 267 012629 E78.2 continue to work on diet and exercise as discussed Sciatica 86936668 M54.30 Type 2 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 107593447 E11.9 Mononeuritis 21746621 G5 8.9 Rheumatoid arthritis 698 48793 M06.9 Diabetic on insulin 1707 02816 Z79.4 Anemia 132082277 D64.9 Asthma 734970629 J45.90 9 Active or passive immunization 729529747 Z23 [id number] Natalie Reveles MD , [facility], [address] [place] [address] 11/13/2017 14:08:31 11/13/2017 14:54:27 Transient cerebral ischemia 996640823 G45.9 Diabetic on insulin 1707 86228 Z79.4 [id number] Natalie Reveles MD , [facility], [address] [place] [address] 12/27/2017 14:34:57 12/27/2017 16:04:03 Adult health examination 876336166 Z00.00 see Risk Assessment and Lifestyle Change Counseling section above Counseling 080162544 Z71 .9 Depression screening 171 211049 Z13.89 depression screening tool administer ed, entered into emr, scored and discussed, time greater than 7.5 minutes Focal onse t impaired awareness epileptic seizure 508782827 G40.209 Benign ess ential hypertension 5682584 I10 Blood pressure at goal Sciatica 42797971 M54.30 Mixed hyperlipidemia 267 011984 E78.2 continue to work on diet and exercise as discussed Type 2 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 661530247 E11.9 Allergic a sthma without status asthmaticus 74322364 J45.909 Diabetic on insulin 1707 43260 Z79.4 Rheumatoid arthritis 698 11315 M06.9 Neuropathy due to diabetes mellitus 801388296 E11.42 Screening mammography 24 078021 Z12.31 Active or passive immunization 839521877 Z23 [id number] Natalie Reveles MD , [facility], [address] [place] [address] 04/30/2018 10:39:49 04/30/2018 11:23:30 Counseling 886736530 Z71.9 Benign ess ential hypertension 7244498 I10 Blood pressure at goal Mixed hyperlipidemia 267 093501 E78.2 continue to work on diet and exercise as discussed Focal onse t impaired awareness epileptic seizure 909004966 G40.209 Sciatica 51590717 M54.30 Type 2 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 183562440 E11.9 Mononeuritis 18451400 G5 8.9 Diabetic on insulin 1707 75337 Z79.4 Rheumatoid arthritis 698 54073 M06.9 Allergic a sthma without status asthmaticus 20080405 J45.909 Intolerant of ambient temperature 345130599 R68.89 [id number] Natalie Reveles MD , [facility], [address] [place] [address] 07/04/2018 09:15:51 07/04/2018 09:27:41 Active or passive immunization 530923918 Z23 [id number] Natalie Reveles MD , [facility], [address] [place] [address] 08/29/2018 11:16:37 08/30/2018 10:37:41 Acute sinusitis 55354341 J01.90 Benign ess ential hypertension 8132584 I10 Blood pressure at goal Type 2 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 388594948 E11.9 Mononeuritis 87902814 G5 8.9 Rheumatoid arthritis 698 29791 M06.9 [id number] Natalie Reveles MD , [facility], [address] [place] [address] 12/31/2018 14:40:49 12/31/2018 16:07:09 Adult health examination 685154375 Z00.00 see Risk Assessment and Lifestyle Change Counseling section above Counseling 295311015 Z71 .9 Depression screening 171 840990 Z13.89 depression screening tool administer ed, entered into emr, scored and discussed, time greater than 7.5 minutes Mixed hyperlipidemia 267 851327 E78.2 Focal onse t impaired awareness epileptic seizure 978131811 G40.209 Benign ess ential hypertension 9623907 I10 Blood pressure at goal Sciatica 29506175 M54.30 Type 2 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 036325656 E11.9 Allergic a sthma without status asthmaticus 72880691 J45.909 Diabetic on insulin 1707 50970 Z79.4 Rheumatoid arthritis 698 97557 M06.9 Gastroesop hageal reflux disease 519653839 K21.9 Active or passive immunization 599322802 Z23 Neuropathy due to diabetes mellitus 256448985 E11.42 [id number] Natalie Reveles MD , [facility], [address] [place] [address] 02/20/2019 09:32:43 02/20/2019 10:11:54 Acute sinusitis 92286977 J01.90 Health Concerns Section Related Observation LastModified by Organization Detai ls LastModified Time None Recorded Concern Status LastModified by Organization Details LastModified Time None Recorded Advance Directives Directive N: Payers Insurance Date Sequence Insurance Name Policy Number Policy Samuel Covered Member ID Samuel Member ID Guarantor Name 11/20/2017 1 [place] [facility] ([place] [id number] Kriss Jackson [id number] Kriss Keys Young 11/20/2017 2 [place] [id number] Kriss Jackson [id number] Kriss Keys Young 07/05/2004 1 *SELF PAY* Ru Massimo Young 11/01/2012 1 [place] [facility]UE [id number] Kriss Jackson [id number] Kriss Keys Young 11/20/2017 1 [place] [facility] [id number] Kriss Jackson [id number] Kriss Keys Young 11/01/2012 1 [facility] [id number] Kriss Jackson [id number] Kriss Keys Young 07/01/2013 1 [employer] [facility] (PPO) [id number] Kriss Jackson [id number] Kriss Keys Young 11/01/2012 1 [facility] [id number] Kriss Jackson [id number] Kriss Keys Young 11/20/2017 1 [employer] [facility] [place] [id number] Kriss Jackson [id number] Kriss Keys Young 02/20/2019 2 [place] [id number] Kriss Jackson [id number] Kriss Keys Young 02/20/2019 1 [place] [employer] Kriss Jackson [id number] Kriss Jackson OBGyn Episode No OBEpisode recorded.
--- OUTSIDE RECORDS SUMMARY | 2025-01-20 13:08 | XMS_ITS | Clinical Summary ---
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 Active insulin pen needles, disposable, (BD ULTRA-FINE SHILOH PEN NEEDLES) 32 gauge x 5/32 Ndle as directed. 11/01/19 16 Active fluticasone propionate (FLONASE) 50 mcg/actuation nasal spray 2 sprays by Nasal route daily as needed. Active gabapentin (NEURONTIN) 300 MG capsuleIndicatio ns:1 in am, 2 in PM Take by mouth every evening. Indications: 1 in am, 2 in PM Active lisinopril-hydro CHLOROthiazide (PRINZIDE,ZESTOR ETIC) 20-12.5 mg per tabletIndication s:10mg/12.5mg Take 1 tablet by mouth daily. Indications: 10mg/12.5mg Active omeprazole (PRILOSEC) 20 MG capsule Take 40 mg by mouth daily. Active lancets (ONETOUCH DELICA LANCETS) 30 gauge Misc as directed. 3 - 4 times daily 10/13/19 16 Active albuterol (PROAIR HFA) 90 mcg/actuation inhaler Inhale 2 puffs into the lungs every 4 (four) hours as needed. Active nebulizer accessories [facility] as directed. 11/08/19 14 Active cholecalciferol, vitamin D3, (VITAMIN D3) 1,000 unit capsule Take 2,000 Units by mouth daily. Active ferrous gluconate 256 mg (28 mg elemental) Tab Take 256 mg by mouth daily. Active lidocaine (LIDODERM) 5 % Place 1 patch onto the skin daily. Remove & Discard patch within 12 hours or as directed by MD Active clopidogrel (PLAVIX) 300 mg Tab Take 75 mg by mouth daily. Active fluticasone (FLOVENT HFA) 110 mcg/actuation inhaler Inhale 1 puff into the lungs 2 (two) times a day. Active lamoTRIgine (LAMICTAL) 100 MG tabletIndication s:unsure strength Take 50 mg by mouth daily. Indications: unsure strength Active atorvastatin (LIPITOR) 10 MG tabletIndication s:unsure strength Take 10 mg by mouth daily. Indications: unsure strength Active cyanocobalamin, vitamin B-12, (VITAMIN B12 ORAL) Take by mouth. Activ e LANTUS SOLOSTAR U-100 INSULIN 100 unit/mL (3 mL) InPn injection pen 100 Units. Activ e insulin lispro (HUMALOG KWIKPEN INSULIN SUBQ)Indications :25-40 tid Inject under the skin. Active acetaminophen (TYLENOL) 650 MG CR tablet Take 650 mg by mouth 2 (two) times a day. Active insulin syringe-needle U-100 1 mL 30 gauge x 1/2 SyrgIndications: On methotrexate therapy 1 each by Miscellaneous route every 7 days. 10 each 5 12/02/19 20 Active hydrOXYchloroQUI NE (PLAQUENIL) 200 mg tabletIndication s:Rheumatoid arthritis of multiple sites with negative rheumatoid factor,Long-term use of Plaquenil,Sicca syndrome TAKE 2 TABLETS(400 MG) BY MOUTH DAILY 180 tablet 3 05/13/20 20 Active methotrexate sodium/PF (METHOTREXATE, PF,) 25 mg/mL injectionIndicat ions:Rheumatoid arthritis of multiple sites with negative rheumatoid factor Inject 0.6 cc= 15 mg subcutaneously every 7 days 13 mL 1 05/13/20 20 Active folic acid (FOLVITE) 1 MG tabletIndication s:Rheumatoid arthritis of multiple sites with negative rheumatoid factor,On methotrexate therapy TAKE 1 TABLET(1 MG) BY MOUTH DAILY 90 tablet 3 07/05/19 21 Active Active Problems Problem Noted Date Diagnosed Date Neck arthritis 02/12/2020 Assessment & Plan (02/15/2020 5:25 PM EDT): Proper posture, avoid extended neck bending. Examples of neck exercises with pictures and detailed instructions printed for home use today. Use warm pack versus warm shower prior to each exercise session. Consider formal PT if not better or worse. On methotrexate therapy 06/30/2019 Assessment & Plan (08/16/2020 9:57 AM EST): Take exactly as prescribed. Keep well-hydrated. Avoid sick contacts. Hold methotrexate whenever running fever or feeling sick or taking antibiotics. Wait at least 48 hours after the last dose of antibiotic to make sure that there is no recurrence of symptoms then go back to regular weekly methotrexate schedule. Remain alcohol free while taking methotrexate. Return for regular laboratory and office checkups as requested Assessment & Plan (02/12/2020 10:39 AM EDT): Take exactly as prescribed. Keep well-hydrated. Avoid sick contacts. Hold methotrexate whenever running fever or feeling sick or taking antibiotics. Wait at least 48 hours after the last dose of antibiotic to make sure that there is no recurrence of symptoms then go back to regular weekly methotrexate schedule. Remain alcohol free while taking methotrexate. Return for regular laboratory and office checkups as requested Assessment & Plan (12/01/2019 3:17 PM EDT): Take exactly as prescribed. Keep well-hydrated. Avoid sick contacts. Hold methotrexate whenever running fever or feeling sick or taking antibiotics. Wait at least 48 hours after the last dose of antibiotic to make sure that there is no recurrence of symptoms then go back to regular weekly methotrexate schedule. Remain alcohol free while taking methotrexate. Return for regular laboratory and office checkups as requested Assessment & Plan (07/14/2019 8:24 AM EST): Take exactly as prescribed. Keep well-hydrated. Avoid sick contacts. Hold methotrexate whenever running fever or feeling sick or taking antibiotics. Wait at least 48 hours after the last dose of antibiotic to make sure that there is no recurrence of symptoms then go back to regular weekly methotrexate schedule. Remain alcohol free while taking methotrexate. Return for regular laboratory and office checkups as requested Type 2 diabetes mellitus wit h stage 3 chronic kidney disease, with long-term current use of insulin 08/08/2018 Assessment & Plan (02/12/2020 10:41 AM EDT): Continue close follow-up with musculoskeletal physiotherapist as scheduled. Aim @ BS= 90-120 mg % Assessment & Plan (07/14/2019 8:25 AM EST): Continue close follow-up with musculoskeletal physiotherapist as scheduled. Aim @ BS= 90-120 mg % Assessment & Plan (04/18/2019 10:48 AM EDT): Continue close follow-up with musculoskeletal physiotherapist as scheduled. Assessment & Plan (02/04/2019 7:57 PM EDT): Continue close follow-up with musculoskeletal physiotherapist as scheduled. Assessment & Plan (08/08/2018 4:43 PM EST): Recent GFR 47 Blood pressure well controlled Continues on ACEi Gastroesophageal reflux disease with esophagitis 03/13/2018 Assessment & Plan (08/16/2020 9:57 AM EST): Avoid late, large, spicy meals. Keep headboard elevated at 45 angle for nighttime. Assessment & Plan (05/13/2020 10:36 AM EST): Avoid late, large, spicy meals. Keep headboard elevated at 45 angle for nighttime. Assessment & Plan (02/12/2020 10:39 AM EDT): Avoid late, large, spicy meals. Keep headboard elevated at 45 angle for nighttime. Assessment & Plan (12/01/2019 3:18 PM EDT): Avoid late, large, spicy meals. Keep headboard elevated at 45 angle for nighttime. Assessment & Plan (07/14/2019 8:22 AM EST): Avoid late, large, spicy meals. Keep headboard elevated at 45 angle for nighttime. Assessment & Plan (04/18/2019 10:47 AM EDT): Avoid late, large, spicy meals. Keep headboard elevated at 45 angle for nighttime. Assessment & Plan (02/04/2019 8:01 PM EDT): Avoid late, large, spicy meals. Keep headboard elevated at 45 angle for nighttime. custodial current use of systemic steroids 03/13 Assessment & Plan (02/04/2019 8:05 PM EDT): Gentle taper as tolerated by 1 mg every couple weeks. Daily calcium and vitamin D supplementation. Regular weightbearing exercises. Fall prevention strategies. Monitor for multiple side effects including but not limited to mood swings, increased intraocular and systemic pressure, diabetes, osteoporosis, fluid retention, increased appetite, risk of infection, bruising, hair thinning etc. On statin therapy 03/13/2018 Assessment & Plan (08/16/2020 9:55 AM EST): Monitor for muscle tenderness, swelling and weakness Assessment & Plan (05/13/2020 10:36 AM EST): Monitor for muscle tenderness, swelling and weakness Assessment & Plan (02/12/2020 10:40 AM EDT): Monitor for muscle tenderness, swelling and weakness Assessment & Plan (12/01/2019 3:16 PM EDT): Monitor for muscle tenderness, swelling and weakness Assessment & Plan (07/14/2019 8:24 AM EST): Monitor for muscle tenderness, swelling and weakness Assessment & Plan (04/18/2019 10:48 AM EDT): Monitor for muscle tenderness, swelling and weakness Assessment & Plan (02/04/2019 8:06 PM EDT): Monitor for muscle tenderness, swelling and weakness Chronic anticoagulation 03/13/2018 Assessment & Plan (08/16/2020 9:58 AM EST): Continue Plavix exactly as prescribed Assessment & Plan (05/18/2020 10:40 PM EST): Continue Plavix exactly as prescribed Assessment & Plan (04/18/2019 10:46 AM EDT): Take Plavix exactly as prescribed. Follow closely with prescribing physician as scheduled. Assessment & Plan (02/04/2019 8:12 PM EDT): Take Plavix exactly as prescribed. Follow closely with prescribing physician as scheduled. Class 2 severe obesity due t o excess calories with serious comorbidity and body mass index (BMI) of 36.0 to 36.9 in adult 03/13/2018 Assessment & Plan (08/16/2020 9:58 AM EST): Portion control. Limit concentrated sugars, saturated fats and calories in the diet. Keep well-hydrated. If unable to achieve expected goal consider formal dietary/nutritional support. Assessment & Plan (07/14/2019 8:22 AM EST): Portion control. Limit concentrated sugars, saturated fats and calories in the diet. Keep well-hydrated. If unable to achieve expected goal consider formal dietary/nutritional support. Assessment & Plan (04/18/2019 10:47 AM EDT): Portion control. Limit concentrated sugars, saturated fats and calories in the diet. Keep well-hydrated. If unable to achieve expected goal consider formal dietary/nutritional support. Assessment & Plan (02/04/2019 7:56 PM EDT): Portion control. Limit concentrated sugars, saturated fats and calories in the diet. Keep well-hydrated. If unable to achieve expected goal consider formal dietary/nutritional support. Assessment & Plan (03/22/2018 8:34 PM EDT): Weight has been stable over past 3 months, overall weight loss since spring Weakness of left side of body 2017 Assessment & Plan (02/04/2019 8:01 PM EDT): Close follow-up with neurologist for further work-up if not better. Ischial bursitis of left side 10/25/2017 Hyperuricemia 10/25/2017 Rheumatoid arthritis of mult iple sites with negative rheumatoid factor 10/11/2017 Assessment & Plan (08/16/2020 9:55 AM EST): Get labs monitoring safety and efficacy of therapy today. Carefully continue current dose of Plaquenil and s.c. weekly methotrexate at 15 mg each every Sunday. Call if problems or questions. I reviewed with her most frequent side effects related to weekly methotrexate including but not limited to increased risk of liver and lung toxicity especially if combined with alcohol or other toxic medications, stomach upset, nausea, skin rashes etc. She is reminded to remain alcohol free while taking methotrexate. Joint protection, energy conservation. Gentle, regular exercise routine. Avoid falls, injuries, overuse. Topical cream versus patch as needed. Consider formal PT/OT or local steroid injection if not better or worse. She may benefit from warm pool therapy. Assessment & Plan (05/13/2020 10:35 AM EST): Get labs monitoring safety and efficacy of therapy today. Carefully continue current dose of Plaquenil and s.c. weekly methotrexate at 15 mg each every Sunday. Call if problems or questions. I reviewed with her most frequent side effects related to weekly methotrexate including but not limited to increased risk of liver and lung toxicity especially if combined with alcohol or other toxic medications, stomach upset, nausea, skin rashes etc. She is reminded to remain alcohol free while taking methotrexate. Joint protection, energy conservation. Gentle, regular exercise routine. Avoid falls, injuries, overuse. Topical cream versus patch as needed. Consider formal PT/OT or local steroid injection if not better or worse. She may benefit from warm pool therapy. Assessment & Plan (02/15/2020 5:36 PM EDT): Get labs monitoring safety and efficacy of therapy today. Carefully continue current dose of Plaquenil and s.c. weekly methotrexate at 15 mg each every Sunday. Call if problems or questions. I reviewed with her most frequent side effects related to weekly methotrexate including but not limited to increased risk of liver and lung toxicity especially if combined with alcohol or other toxic medications, stomach upset, nausea, skin rashes etc. Get yearly influenza vaccine by March 2020. She is reminded to remain alcohol free while taking methotrexate. Joint protection, energy conservation. Gentle, regular exercise routine. Avoid falls, injuries, overuse. Topical cream versus patch as needed. Consider formal PT/OT or local steroid injection if not better or worse. She may benefit from warm pool therapy. Assessment & Plan (12/01/2019 3:20 PM EDT): Get labs monitoring safety and efficacy of therapy today. Carefully continue current dose of Plaquenil and start oral weekly methotrexate at 15 mg= 6 tablets 2.5 mg each every Sunday. Call if problems or questions. I reviewed with her most frequent side effects related to weekly methotrexate including but not limited to increased risk of liver and lung toxicity especially if combined with alcohol or other toxic medications, stomach upset, nausea, skin rashes etc. She is reminded to remain alcohol free while taking methotrexate. Joint protection, energy conservation. Gentle, regular exercise routine. Avoid falls, injuries, overuse. Topical cream versus patch as needed. Consider formal PT/OT or local steroid injection if not better or worse. She may benefit from warm pool therapy. Assessment & Plan (07/14/2019 8:21 AM EST): Get labs monitoring safety and efficacy of therapy today. Carefully continue current dose of Plaquenil and start oral weekly methotrexate at 10 mg= 4 tablets 2.5 mg each every Sunday. Call if problems or questions. I reviewed with her most frequent side effects related to weekly methotrexate including but not limited to increased risk of liver and lung toxicity especially if combined with alcohol or other toxic medications, stomach upset, nausea, skin rashes etc. She is reminded to remain alcohol free while taking methotrexate. Joint protection, energy conservation. Gentle, regular exercise routine. Avoid falls, injuries, overuse. Topical cream versus patch as needed. Consider formal PT/OT or local steroid injection if not better or worse. She may benefit from warm pool therapy. Assessment & Plan (04/29/2019 8:15 PM EST): Get labs monitoring safety and efficacy of therapy today. Carefully continue current dose of Plaquenil. She agrees to optimize therapy by adding injectable methotrexate that worked for her in the past. We are trying to get different product= Otrexup (re-sending today again) instead of Rasuvo hoping for lower copayment. I reviewed with her most frequent side effects related to weekly methotrexate including but not limited to increased risk of liver and lung toxicity especially if combined with alcohol or other toxic medications, stomach upset, nausea, skin rashes etc. She is reminded to remain alcohol free while taking methotrexate. Joint protection, energy conservation. Gentle, regular exercise routine. Avoid falls, injuries, overuse. Topical cream versus patch as needed. Consider formal PT/OT or local steroid injection if not better or worse. She may benefit from warm pool therapy. Assessment & Plan (02/04/2019 8:00 PM EDT): Get labs monitoring safety and efficacy of therapy today. Carefully continue current dose of prednisone and Plaquenil. She agrees to optimize therapy by adding injectable methotrexate that worked for her in the past. We are trying to get different product= Otrexup (re-sending today again) instead of Rasuvo hoping for lower copayment. I reviewed with her most frequent side effects related to weekly methotrexate including but not limited to increased risk of liver and lung toxicity especially if combined with alcohol or other toxic medications, stomach upset, nausea, skin rashes etc. She is reminded to remain alcohol free while taking methotrexate. Joint protection, energy conservation. Gentle, regular exercise routine. Avoid falls, injuries, overuse. Topical cream versus patch as needed. Consider formal PT/OT or local steroid injection if not better or worse. She may benefit from warm pool therapy. Pain in both hands 10/11/2017 Pain in both feet 10/11/2017 Chronic left shoulder pain 10/11/2017 Dyspnea on exertion 10/11/2017 Vitamin D insufficiency 10/11/2017 Insulin long-term use 10/11/2017 Assessment & Plan (12/02/2019 6:14 PM EDT): Take exactly as prescribed. Monitor closely as instructed to keep BS at 90-110 mg % range. Assessment & Plan (02/04/2019 8:03 PM EDT): Take exactly as prescribed. Monitor closely as instructed to keep BS at 90-110 mg % range. Type 2 diabetes mellitus with neurologic complic ation 10/11/2017 Assessment & Plan (08/08/2018 4:52 PM EST): Continues on high dosage of basal and bolus insulins, her likely insulin requirement is lower than this and as a result her risk of hypoglycemia is high We discussed adjustment of insulin dosing as needed, a decrease of Lantus to 80u once daily may result in good control without increase in hypoglycemia risk, similarly adjusting Humalog based on meal quality/size and/or premeal blood sugar is advisable as well We discussed importance of hypoglycemia risk reduction Advised to continue to eat healthy, regular meals Encouraged to call with any questions or concerns Assessment & Plan (03/22/2018 8:38 PM EDT): Requiring high dosage of insulin, we discussed change to concentrated insulin glargine, Toujeo, which may also help to reduce risk of hypoglycemia, given samples to try today sent Rx to pharmacy We did not adjust doses of insulin today Encouraged to continue to monitor blood sugars closely Advised of risk of hypoglycemia given low A1c Encouraged to call with any questions or concerns Assessment & Plan (11/23/2017 1:06 PM EDT): Glucose data reassuring on current insulin dosage We discussed benefit of CGM trial in elucidating patterns and identifying potential patterns of hypoglycemia, Bart will consider this and call us if she is interested in having a Freestyle Iris Pro placed for eval We made no changes in Bart's insulin dosing, she is strongly advised not to increase her dosage of Lantus as her fasting blood sugars are in very good range We discussed maintaining healthy diet and trying to optimize activity Long-term use of Plaquenil 10/11/2017 Assessment & Plan (08/16/2020 9:57 AM EST): Continue exactly as prescribed. No change in the dose. Daily sun protection. Follow-up with solid waste truck driver as scheduled at least once yearly. Assessment & Plan (05/18/2020 10:43 PM EST): Continue exactly as prescribed. No change in the dose. Daily sun protection. Follow-up with solid waste truck driver as scheduled at least once yearly. Assessment & Plan (02/12/2020 10:39 AM EDT): Continue exactly as prescribed. No change in the dose. Daily sun protection. Follow-up with solid waste truck driver as scheduled at least once yearly. Assessment & Plan (12/01/2019 3:17 PM EDT): Continue exactly as prescribed. No change in the dose. Daily sun protection. Follow-up with solid waste truck driver as scheduled at least once yearly. Assessment & Plan (07/14/2019 8:22 AM EST): Continue exactly as prescribed. No change in the dose. Daily sun protection. Follow-up with solid waste truck driver as scheduled at least once yearly. Assessment & Plan (04/18/2019 10:48 AM EDT): Continue exactly as prescribed. No change in the dose. Daily sun protection. Follow-up with solid waste truck driver as scheduled at least once yearly. Assessment & Plan (02/04/2019 8:04 PM EDT): Continue exactly as prescribed. No change in the dose. Daily sun protection. Follow-up with solid waste truck driver as scheduled at least once yearly. Assessment & Plan (11/23/2017 1:04 PM EDT): Plaquenil therapy may put patients on insulin or insulin secretagogues at risk for hypoglycemia, any increase in Plaquenil dosage should be accompanied by a decrease in insulin dosage and blood sugars closely followed Current use of aspirin 10/11/2017 Assessment & Plan (08/16/2020 9:57 AM EST): Avoid falls, injuries and cuts. Monitor for excessive bruising and bleeding. Assessment & Plan (05/13/2020 10:36 AM EST): Avoid falls, injuries and cuts. Monitor for excessive bruising and bleeding. Assessment & Plan (07/14/2019 8:22 AM EST): Avoid falls, injuries and cuts. Monitor for excessive bruising and bleeding. Assessment & Plan (04/18/2019 10:47 AM EDT): Avoid falls, injuries and cuts. Monitor for excessive bruising and bleeding. Assessment & Plan (02/04/2019 8:11 PM EDT): Avoid falls, injuries and cuts. Monitor for excessive bruising and bleeding. Sicca syndrome 10/11/2017 Assessment & Plan (08/16/2020 9:56 AM EST): Keep well-hydrated. Avoid spicy and acidic foods. Diligent mouth hygiene. Regular dental checkups. Assessment & Plan (05/13/2020 10:34 AM EST): Keep well-hydrated. Avoid spicy and acidic foods. Diligent mouth hygiene. Regular dental checkups. Assessment & Plan (02/12/2020 10:41 AM EDT): Keep well-hydrated. Avoid spicy and acidic foods. Diligent mouth hygiene. Regular dental checkups. Assessment & Plan (12/01/2019 3:15 PM EDT): Keep well-hydrated. Avoid spicy and acidic foods. Diligent mouth hygiene. Regular dental checkups. Assessment & Plan (07/14/2019 8:24 AM EST): Keep well-hydrated. Avoid spicy and acidic foods. Diligent mouth hygiene. Regular dental checkups. Assessment & Plan (04/18/2019 10:48 AM EDT): Keep well-hydrated. Avoid spicy and acidic foods. Diligent mouth hygiene. Regular ocular and dental checkups. Consider OTC artificial tears/gel and prescription sialagogues if worse Assessment & Plan (02/04/2019 8:07 PM EDT): Keep well-hydrated. Avoid spicy and acidic foods. Diligent mouth hygiene. Regular ocular and dental checkups. Consider OTC artificial tears/gel and prescription sialagogues if worse Trochanteric bursitis of both hips 10/11/2017 Assessment & Plan (05/18/2020 10:42 PM EST): Use warm pack for 10-15 minutes before gentle stretching, ROM and muscle strengthening exercises. Examples of appropriate exercises printed with pictures and detailed instructions. Complete session of exercises with icing over the towel to sides of both hips and consider formal PT if not better. She may benefit from using topical cream such as Arnica, Voltaren, Biofreeze, Aspercreme versus medicated patches such as Salonpas or IcyHot patch 2-3 times daily and if needed at bedtime x 3 weeks. May need to consider local steroid injection if not better or worse. Resolved Problems Problem Noted Date Diagnosed Date Resolved Date Aspirin long-term use 12/01/20192019 Assessment & Plan (02/12/2020 10:38 AM EDT): Avoid falls, injuries and cuts. Monitor for excessive bruising and bleeding. Assessment & Plan (12/01/2019 3:19 PM EDT): Avoid falls, injuries and cuts. Monitor for excessive bruising and bleeding. Class 2 obesity due to exces s calories with serious comorbidity and body mass index (BMI) of 35.0 to 35.9 in adult 10/11/2017 03/13/2018 Assessment & Plan (11/23/2017 1:01 PM EDT): Weight loss of 10lb since mid September may be due at least in part to significant reduction in insulin dosage, we had discussed the likely benefits of insulin dose adjustment to more appropriate dose on weight management Immunizations Immunization Administration Dates Next Due Influenza Quadrivalent Preservative Free IM 02/23 Family History Medical History Relation Comments Other Unspecified Diabetes, heart disease, stroke, CAD/MO. Sister with COPD (former smoker). Sister with brain tumor. GM with colon cancer. Diabetes - sisters, father, uncles both sides, mother. Relation Status Comments Unspecified Social History Tobacco Use Types Packs/Day Years Used Date Smoking Tobacco: Never Smokeless Tobacco: Never Tobacco Cessation:Counseling Given: No Alcohol Use Standard Drinks/Week Comments No 0 (1 standard drink = 0.6 oz pur e alcohol) Education Answer Date Recorded Are you interested in more education? Not on berny e 10/20/2022 Are you concerned about learning? Not on file 10/20/2022 No 10/20/2022 No 10/20/2022 Digital Access Answer Date Recorded No 11/20/2022 No 11/20/2022 Reliable internet access at home? Not on file 11/20/2022 Device with a working camera? Not on file Comments Unknown Sex and Gender Information Value Date Recorded Sex Assigned at Not on file Legal Sex Female 4:41 PM EST Gender Identity Not on file Sexual Orientation Not on file Last Filed Vital Signs Vital Sign Reading Time Taken Comments Blood Pressure 128/62 08/16/2020 9:42 AM EST Pulse 87 10/17/2018 11:25 AM EDT Temperature 36.7 C (98 F) 08/16/2020 9:42 AM EST Respiratory Rate - - Oxygen Saturation 97% 10/17/2018 11: 25 AM EDT Inhaled Oxygen Concentration - - Weight 78.3 kg (172 lb 9.6 oz) 08/16/19 9:42 AM EST with shoes Height 147.3 cm (4' 10 ) 08/16/2020 9:4 2 AM EST Body Mass Index 36.07 08/16/2020 9:42 AM EST Plan of Treatment Health Maintenance Due Date Last Done Comments BLOOD PRESSURE 1950 DEPRESSION SCREENING 1962 HEPATITIS C SCREENING 1968 ZOSTER VACCINES (1 of 2) 1969 MAMMOGRAM 1990 COLOGUARD 12/25/1995 COLONOSCOPY 12/25/1995 COLORECTAL CANCER SCREENING 12/25/1995 FIT TEST 12/25/1995 FOBT 12/25/1995 SIGMOIDOSCOPY 12/25/1995 VIRTUAL COLONOSCOPY 12/25/1995 RSV VACCINE (1 - Risk 60-74 years 1-dose series) 2010 DIABETIC EYE EXAM 10/11/2017 HEMOGLOBIN A1C 02/05/2019 08/08/2018, 03/22/2018 COVID-19 VACCINE (2 - Leon risk series) 10/27/2020 09/29/2020 Adult Td,Tdap Booster 05/17/2021 05/17/2011 CREATININE LEVEL 08/16/2021 08/16/2020, , 02/12/2020, Additional history exists POTASSIUM LEVEL 08/16/2021 08/16/2020, 04/25, 02/12/2020, Additional history exists OSTEOPOROSIS SCREENING INITIAL (ONE-TIME) Completed 09/06/2018 PNEUMOCOCCAL VACCINES (50+ years) Completed 05/06/2019, 12/31/2018, 12/27/2017 SMOKING STATUS SCREENING (Once After 26 Yrs) Completed 08/16/2020 HEPATITIS A VACCINES Aged Out No long er eligible based on patient's age to complete this topic HIB VACCINES Aged Out No longer eligi ble based on patient's age to complete this topic MENINGOCOCCAL VACCINES (ACWY) Aged Out No longer eligible based on patient's age to complete this topic MENINGOCOCCAL VACCINES (B) Aged Out N o longer eligible based on patient's age to complete this topic Medical Devices Not on file Procedures Procedure Name Priority Date/Time Associated Diagnosis Comments COMPREHENSIVE METABOLIC PANEL Routine 08/16/2020 10:40 AM EST Rheumatoid arthritis of multiple sites with negative rheumatoid factor On methotrexate therapy Long-term use of Plaquenil BD DXA AXIAL (SPINE) WITH HIP Routine 09/06/2018 10:51 AM EDT Rheumatoid arthritis of multiple sites with negative rheumatoid factor custodial current use of systemic steroids POCT HEMOGLOBIN A1C Routine 08/08/2018 3 :34 PM EST Type 2 diabetes mellitus with diabetic polyneuropathy, without long-term current use of insulin from Last 3 Months or Most Recently Relevant to Health Maintenance Results * (ABNORMAL) Comprehensive metabolic panel (08/16/2020 10:40 AM EST) SODIUM 140 133 - 146 mmol/L [facility] POTASSIUM 4.3 3.3 - 5.1 mmol/L [facility] CHLORIDE 103 96 - 108 mmol/L [facility] CO2 25 21 - 35 mmol/L [facility] BUN 30(H) 6 - 19 mg/dL [facility] CREATININE 1.00 0.5 - 1.5 mg/dL [facility] GLUCOSE 133(H) 70 - 99 mg/dL [facility] ALBUMIN 4.3 3.9 - 4.8 g/dL [facility] TOTAL PROTEIN 7.1 6.5 - 8.0 g/dL [facility] CALCIUM 9.1 8.4 - 10.3 mg/dL [facility] ALKALINE PHOSPHATASE 79 39 - 117 U/L [facility] TOTAL BILIRUBIN 0.4 0.0 - 1.2 mg/dL [facility] AST 35 0 - 37 U/L [facility] ALT 16 0 - 40 U/L [facility] GLOBULIN 2.8 1 - 4.8 g/dL [facility] EGFR 57(L) >59 mL/min/1.7 3m2 [facility] Comment:Estimated glomerular filtration rate calculated using the CKD-EPI equation. ANION GAP 16 10 - 20 mmol/L [facility] Blood 08/16/2020 10:4 0 AM EST 08/16/2020 10:46 AM EST us Kaya Marquez MD LAB BLOOD ORDERABLES Fin al Result Performing Organization Address City/State/[facility] Co de Phone Number [address] [address] * BD DXA AXIAL (SPINE) WITH HIP (09/06/2018 10:51 AM EDT) Anatomical Region Laterality Modality Bone Density Bone Density 09/06/2018 3:18 PM EDT Impressions 09/06/2018 3:21 PM EDT Normal bone mineral density with statistically significant increase in bone mineral density in the hips since 2001. POS - [id number] Narrative 09/06/2018 3:21 PM EDT COMPARISON: 12/02/2001 FINDINGS: This is a 67-year-old postmenopausal white female who reports 1 inch of perceived height loss. Evaluation of the lumbar spine and hips was performed and felt to be technically adequate. Total bone mineral density in the L1-L4 vertebral bodies was calculated at 1.044 gm/cm2 with a T-score of 0 falling within the WHO classification of normal. Z-score of 1.9. Unable to assess for change in bone mineral density due to dissimilar scan types/analysis methods. Total bone mineral density in the right hip was calculated at 1.071 gm/cm2 with a T-score of 1.1 falling within the WHO classification of normal. Z-score of 2.4. 3.3% increase in bone mineral density since the prior exam which is statistically significant at the 95% confidence level. Total bone mineral density in the left hip was calculated at 1.095 gm/cm2 with a T-score of 1.36 falling within the WHO classification of normal. Z-score of 2.6. 3.4% increase in bone mineral density since the prior exam which is statistically significant at the 95% confidence level. Procedure Note Rachel Jane MD - 09/06/2018 COMPARISON: 12/02/2001 FINDINGS: This is a 67-year-old postmenopausal white female who reports 1inch of perceived height loss. Evaluation of the lumbar spine and hips was performed and felt to betechnically adequate. Total bone mineral density in the L1-L4 vertebral bodies was calculated at1.044 gm/cm2 with a T-score of 0 falling within the WHO classification ofnormal. Z- score of 1.9. Unable to assess for change in bone mineraldensity due to dissimilar scan types/analysis methods. Total bone mineral density in the right hip was calculated at 1.071 gm/yr7vzyx a T-score of 1.1 falling within the WHO classification of normal.Z-score of 2.4. 3.3% increase in bone mineral density since the priorexam which is statistically significant at the 95% confidence level. Total bone mineral density in the left hip was calculated at 1.095 gm/uw6uiru a T-score of 1.36 falling within the WHO classification of normal.Z-score of 2.6. 3.4% increase in bone mineral density since the priorexam which is statistically significant at the 95% confidence level. IMPRESSION: Normal bone mineral density with statistically significant increase inbone mineral density in the hips since 2001. POS - [id number] us Kaya PETITG BD BONE DENSITY DEXA Final Result * POCT Hemoglobin A1c (08/08/2018 3:34 PM EST) Hemoglobin A1c 5.3 4.2 - 5.8 % [facility] Other 08/08/2018 3:34 PM EST us Mariella Chance MD POINT OF CARE TEST ORDERABLES F inal Result [facility] [address] [place] [address] from Last 3 Months or Most Recently Relevant to Health Maintenance Insurance MEDICARE PART A & B QUALIA (formerly known as LocalResponse) MEDEX SUPPLEMENT MEDICARE PART A & B Transmit CROSS MEDEX SUPPLEMENT MEDICARE PART A & B Transmit CROSS MEDEX SUPPLEMENT MEDICARE PART A & B QUALIA (formerly known as LocalResponse) MEDEX SUPPLEMENT MEDICARE PART A & B QUALIA (formerly known as Local[employer]) MEDEX SUPPLEMENT MEDICARE PART A & B QUALIA (formerly known as LocalResponse) MEDEX SUPPLEMENT MEDICARE PART A & B QUALIA (formerly known as Local[employer]) MEDEX SUPPLEMENT MEDICARE PART A & B QUALIA (formerly known as Local[employer]) MEDEX SUPPLEMENT MEDICARE PART A & B BLUE CROSS MEDEX SUPPLEMENT Care Teams 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 It is not the complete legal health record.[facility]
== END 2025-01-20 13:00 | disposition home or self-care (01) ==
LOC: HO.HCS 12:16
PROVIDERS: PCP Internal Medicine; Visit Provider Internal Medicine Cardiovascular Disease
DX: I95.9 Hypotension, unspecified (principal); Z95.0 Presence of cardiac pacemaker; I47.29 Other ventricular tachycardia; I25.10 Atherosclerotic heart disease of native coronary artery without angina pectoris
CPT/HCPCS: 93280; 99214; G2211

== ENCOUNTER → 2025-01-20 12:16 | Outpatient (BNVA) | payer MEDICARE, SELFPAY | PROVIDERS: PCP Internal Medicine; Visit Provider Internal Medicine Cardiovascular Disease | DX: Z45.018 Encounter for adjustment and management of other part of cardiac pacemaker (principal); I95.9 Hypotension, unspecified; I47.29 Other ventricular tachycardia; I25.10 Atherosclerotic heart disease of native coronary artery without angina pectoris | CPT/HCPCS: 93280; 99212 ==

== ENCOUNTER → 2025-02-04 23:59 | Outpatient (BNV) | payer MEDICARE, SELFPAY ==
--- NOTE | 2025-02-10 12:19 | A.OFFVIS_ITS ---
Intake Visit Reasons: Remote device check- [facility] Allergies duloxetine Allergy (Severe, Verified 01/20/25 12:38) LOOPY codeine (CODEINE) Allergy (Intermediate, Verified 01/20/25 12:38) GI UPSET doxycycline (DOXYCYCLINE) Allergy (Intermediate, Verified 01/20/25 12:38) RASH Sulfa (Sulfonamide Antibiotics) (SULFA (SULFONAMIDE ANTIBIOTICS)) Allergy (Intermediate, Verified 01/20/25 12:38) Hives [facility] Medical History Lexi infection of mouth Varicose veins of both lower extremities with inflammation Petechiae Dysphagia Encounter for ongoing osteoporosis therapy, bisphosphonates Osteoarthritis of hands, bilateral Osteopenia Rheumatoid arthritis with negative rheumatoid factor 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 Edema of lower extremity present on examination long term care 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 use of drug Irritable bowel syndrome with diarrhea Rheumatoid arthritis Pacemaker TIA (transient ischemic attack) Dysphagia Spinal stenosis COVID COVID-19 Laryngopharyngeal reflux (LPR) Asthma Rotator cuff tendinitis Post-menopausal Polyarthralgia Dyspnea on exertion Allergic rhinitis Bronchitis Asthma exacerbation Cough variant asthma DJD (degenerative joint disease) Decreased hearing GERD (gastroesophageal reflux disease) Type 2 diabetes 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s Surgical History S/P placement of cardiac pacemaker History of esophagogastroduodenoscopy (EGD) History of colonoscopy (~09/05/21) Hx of cholecystectomy Hx of tonsillectomy Hx of hysterectomy Family History Father CVD (cardiovascular disease) Diabetes Mother Diabetes Sister No problems noted. Other Substance use disorder Social History Household Members: Family and None Housing: House Are you a primary residential child care counselor to a significant other at home: No Do you presently have visiting nurse or other home services: No Alcohol intake: former Comment: WITHIN LAST MONTH Patient Tobacco Use Status: Never used Tobacco e-Cigarette/Vaping Use: Never Used Second Hand Smoke Exposure: No Advance Directives Date on File: 08/04/22 service: No Current occupational status: retired Cognitive needs: Yes (walker) Hearing needs: Yes (hearing aide) Vision needs: Yes (glasses) Office Procedures Cardiac Device Check Cardiac Device Check Details: Remote pacemaker report generated 02/04/2025. Pacemaker function is adequate. Patient ventricularly pacer dependent [id number] Cardiac Device Interrogation, pacemaker Procedure code (CPT) selection complete Assessment & Plan Assessment & Plan (1) Pacemaker: Code(s): Z95.0 - Presence of cardiac pacemaker Category: Medical Plan: See above Coding Level of Care Code Procedure Only Diagnoses Pacemaker Z95.0 CPT Codes Cardiac Device Check - Cardiac Device 12: [id number] Cardiac Device Interrogation, pacemaker ([id number])
== END ==
PROVIDERS: PCP Internal Medicine; Visit Provider Internal Medicine Cardiovascular Disease
DX: Z45.018 Encounter for adjustment and management of other part of cardiac pacemaker (principal)
CPT/HCPCS: 93294

== ENCOUNTER 2025-02-10 14:59 | Outpatient (AMB) | payer MEDICARE, SELFPAY ==
--- NOTE | 2025-02-10 15:02 | MHC.OFFVIS ---
Vital Signs 02/10/25 15:04 Height 4 ft 10 in Weight 146 lb BMI 30.5 Intake Visit Reasons: PRN follow up LE pain s/p RFA Intake Note: follow up Left LE VV w/ pain s/p Left GSV RFA 10/03/24. Pt states painful VV in the Calf, she states she has had since procedure but was waiting to see if RFA helped it decrease Accompanied by: Self / Same As Patient Allergies duloxetine Allergy (Severe, Verified 02/10/25 15:06) LOOPY codeine (CODEINE) Allergy (Intermediate, Verified 02/10/25 15:06) GI UPSET doxycycline (DOXYCYCLINE) Allergy (Intermediate, Verified 02/10/25 15:06) RASH Sulfa (Sulfonamide Antibiotics) (SULFA (SULFONAMIDE ANTIBIOTICS)) Allergy (Intermediate, Verified 02/10/25 15:06) Hives HPI HPI PRN follow up LE pain s/p RFA: Details: Very complex 74-year-old female presents for follow-up evaluation regarding left posterior calf pain. She actually had undergone left great saphenous vein radiofrequency ablation on 10/03/2024. Postprocedure she appeared to be doing relatively well. She continues to have issues with her lower extremities and complains of pain particularly in the posterior aspect of her calf. She now presents for vascular re-evaluation. She did have a cluster of varicosities on the left side which appear to have decreased in size and do not seem to be an issue for her at the current time. 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 Edema of lower extremity present on examination care home use of drug Irritable bowel syndrome with diarrhea Rheumatoid arthritis Pacemaker TIA (transient ischemic attack) Dysphagia Spinal stenosis COVID COVID-19 Laryngopharyngeal reflux (LPR) Asthma Rotator cuff tendinitis Post-menopausal Polyarthralgia Dyspnea on exertion Allergic rhinitis Bronchitis Asthma exacerbation Cough variant asthma DJD (degenerative joint disease) Decreased hearing GERD (gastroesophageal reflux disease) Type 2 diabetes 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s Surgical History S/P placement of cardiac pacemaker History of esophagogastroduodenoscopy (EGD) History of colonoscopy (~09/05/21) Hx of cholecystectomy Hx of tonsillectomy Hx of hysterectomy Family History Father CVD (cardiovascular disease) Diabetes Mother Diabetes Sister No problems noted. Other Substance use disorder Social History Household Members: Family and None Housing: House Are you a primary post anesthesia care unit nurse to a significant other at home: No Do you presently have visiting nurse or other home services: No Alcohol intake: former Comment: WITHIN LAST MONTH Patient Tobacco Use Status: Never used Tobacco e-Cigarette/Vaping Use: Never Used Second Hand Smoke Exposure: No Advance Directives Date on File: 08/04/22 service: No Current occupational status: retired Cognitive needs: Yes (walker) Hearing needs: Yes (hearing aide) Vision needs: Yes (glasses) Review of Systems Const All systems reviewed & are unremarkable except as noted in HPI and below Reports no additional complaints ENT Reports Normal hearing present Card Denies chest pain, Denies chest pain at rest, Denies chest pain with activity and Denies pedal edema Resp Denies cough GI Denies abdominal pain Musc Denies abnormal gait, Denies muscle cramps and Denies radiating pain into limb Skin/Breast Denies skin ulcer and Denies wounds Neuro Reports Normal hearing present and Denies abnormal gait Psych Reports no additional complaints Physical Exam Vital Signs: BMI result Body Mass Index 30.5 Const General: cooperative, healthy appearing and comfortable Orientation/consciousness: oriented to person, oriented to place and oriented to time HEENT Head: Yes normal to inspection Neck Neck: Yes normal visual inspection Carotids: no bruits Chest Chest palpation & inspection: normal inspection of the chest Resp Effort & Inspection: normal respiratory effort and able to speak in complete sentences Auscultation: clear to auscultation bilaterally, no crackles, no rales, no rhonchi and no wheezes Cardio Rate: regular rate Rhythm: regular rhythm Heart sounds: S1 normal heart sound present and S2 normal heart sound present Bruits: no carotid bruits Peripheral pulses: Peripheral pulses 2+ throughout GI Inspection: Yes normal to inspection Skin Wounds: no wounds Hair: normal Neuro General: oriented to person, oriented to place and oriented to time Cranial nerves: Yes CN's II-XII intact bilaterally and Yes Normal hearing present Cognition (Neuro): normal cognition Motor exam (neuro): 5/5 motor strength present throughout Extrem Other: venous exam: Left lateral knee some mild varicosities. General: No clubbing, No cyanosis and Yes edema (Plus one) Psych Appearance: grossly normal Mental Status: mental status grossly normal Speech and movement: Normal speech and movement present Assessment & Plan Assessment & Plan (1) Leg pain: Code(s): M79.606 - Pain in leg, unspecified Category: Medical Qualifiers: Laterality: left Qualified Code(s): M79.605 - Pain in left leg Plan: In short patient has left lower extremity leg pain. It does not appear to be vascular in nature as she does have palpable arterial pulses. She does have a few mild superficial varicosities but great saphenous vein has been treated in the past. I do think a lot of this is related to her rheumatoid arthritis and longstanding history of methotrexate use. In addition she does have degenerative disc disease. This may add a neurogenic component to this. I do think follow-up with Rheumatology and potentially even pain management and/or back and spine surgery evaluation may be beneficial for her. She will follow up with us on an as-needed basis. Thank you for allowing us to assist in her care. If there are any questions or concerns please do not hesitate to contact us. Coding Level of Care Code Est Pt Level 4 (07946) Diagnoses Pain of left lower extremity M79.605 Laterality: left
[2025-02-10 15:04] VITALS: BMI 30.5
--- OUTSIDE RECORDS SUMMARY | 2025-02-10 16:21 | XMS_ITS | Clinical Summary ---
Author Organization [facility] Address [address] [place] [address] Phone Care Team Providers Care Interventional Physiatrist Name Role Phone Mariella Chance MD Unavailable [phone] Angel Pablo MD Primary Care Provid er [...] 10:41 AM EDT): Continue close follow-up with cutter wet machine as scheduled. Aim @ BS= 90-120 mg % Assessment & Plan (07/14/2019 8:25 AM EST): Continue close follow-up with cutter wet machine as scheduled. Aim @ BS= 90-120 mg % Assessment & Plan (04/18/2019 10:48 AM EDT): Continue close follow-up with cutter wet machine as scheduled. Assessment & Plan (02/04/2019 7:57 PM EDT): Continue close follow-up with cutter wet machine as scheduled. Assessment & Plan (08/08/2018 4:43 [...] headboard elevated at 45 angle for nighttime. 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 Daily sun protection. Follow-up with supervisor inspection room as scheduled at least once yearly. Assessment & Plan (05/18/2020 10:43 PM EST): Continue exactly as prescribed. No change in the dose. Daily sun protection. Follow-up with supervisor inspection room as scheduled at least once yearly. Assessment & Plan (02/12/2020 10:39 AM EDT): Continue exactly as prescribed. No change in the dose. Daily sun protection. Follow-up with supervisor inspection room as scheduled at least once yearly. Assessment & Plan (12/01/2019 3:17 PM EDT): Continue exactly as prescribed. No change in the dose. Daily sun protection. Follow-up with supervisor inspection room as scheduled at least once yearly. Assessment & Plan (07/14/2019 8:22 AM EST): Continue exactly as prescribed. No change in the dose. Daily sun protection. Follow-up with supervisor inspection room as scheduled at least once yearly. Assessment & Plan (04/18/2019 10:48 AM EDT): Continue exactly as prescribed. No change in the dose. Daily sun protection. Follow-up with supervisor inspection room as scheduled at least once yearly. Assessment & Plan (02/04/2019 8:04 PM EDT): Continue exactly as prescribed. No change in the dose. Daily sun protection. Follow-up with supervisor inspection room as scheduled at least once yearly. Assessment [...] Comments Other Unspecified Diabetes, heart disease, stroke, CAD/OR. Sister with COPD (former smoker). 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 POCT HEMOGLOBIN A1C Routine 08/08/2018 3 :34 PM EST Type 2 diabetes mellitus with diabetic polyneuropathy, without long-term current use of insulin from Last 3 Months or Most Recently Relevant to Health Maintenance Results * (ABNORMAL) Comprehensive metabolic panel (08/16/2020 10:40 AM EST) SODIUM 140 133 - 146 mmol/L [facility] POTASSIUM 4.3 3.3 - 5.1 mmol/L [facility] CHLORIDE 103 96 - 108 mmol/L [facility] CO2 25 21 - 35 mmol/L [facility] BUN 30(H) 6 - 19 mg/dL [facility] CREATININE 1.00 0.5 - 1.5 mg/dL [facility] GLUCOSE 133(H) 70 - 99 mg/dL [facility] ALBUMIN 4.3 3.9 - 4.8 g/dL [facility] TOTAL PROTEIN 7.1 6.5 - 8.0 g/dL [facility] CALCIUM 9.1 8.4 - 10.3 mg/dL [facility] ALKALINE PHOSPHATASE 79 39 - 117 U/L [facility] TOTAL BILIRUBIN 0.4 0.0 - 1.2 mg/dL [facility] AST 35 0 - 37 U/L [facility] ALT 16 0 - 40 U/L [facility] GLOBULIN 2.8 1 - 4.8 g/dL [facility] EGFR 57(L) >59 mL/min/1.7 3m2 [facility] Comment:Estimated glomerular filtration rate calculated using the CKD-EPI equation. ANION GAP 16 10 - 20 mmol/L [facility] Blood 08/16/2020 10:4 0 AM EST 08/16/2020 10:46 AM EST us Kaya Marquez MD LAB BLOOD ORDERABLES Fin al Result Performing Organization Address City/State/[facility] Co de Phone Number [address] [address] * BD DXA AXIAL (SPINE) WITH HIP (09/06/2018 10:51 AM EDT) Anatomical Region Laterality Modality Bone Density Bone Density 09/06/2018 3:18 PM EDT Impressions 09/06/2018 3:21 PM EDT Normal bone mineral density with statistically significant increase in bone mineral density in the hips since 2001. POS - [id number] Narrative 09/06/2018 3:21 PM EDT COMPARISON: 12/02/2001 [...] the right hip was calculated at 1.071 gm/yj7gcth a T-score of 1.1 falling within the WHO classification of normal.Z-score of 2.4. 3.3% increase in bone mineral density since the priorexam which is statistically significant at the 95% confidence level. Total bone mineral density in the left hip was calculated at 1.095 gm/tn2djgl a T-score of 1.36 falling within the WHO classification of normal.Z-score of 2.6. 3.4% increase in bone mineral density since the priorexam which is statistically significant at the 95% confidence level. IMPRESSION: Normal bone mineral density with statistically significant increase inbone mineral density in the hips since 2001. POS - [id number] us Kaya PETITG BD BONE DENSITY DEXA Final Result * POCT Hemoglobin A1c (08/08/2018 3:34 PM EST) Hemoglobin A1c 5.3 4.2 - 5.8 % [facility] Other 08/08/2018 3:34 PM EST us Mariella Chance MD POINT OF CARE TEST ORDERABLES F inal Result [facility] [address] [place] [address] from Last 3 Months or Most Recently Relevant to Health Maintenance Insurance MEDICARE PART A & B [employer] MED[employer] SUPPLEMENT MEDICARE PART A & B [employer] MEDEX SUPPLEMENT MEDICARE PART A & B [employer]OSS MEDEX SUPPLEMENT MEDICARE PART A & B [employer] MEDEX SUPPLEMENT MEDICARE PART A & B [employer] MEDEX SUPPLEMENT MEDICARE PART A & B [employer] MEDEX SUPPLEMENT MEDICARE PART A & B [employer] MEDEX SUPPLEMENT MEDICARE PART A & B [employer] MEDEX SUPPLEMENT MEDICARE PART A & B [employer] MEDEX SUPPLEMENT Care Teams Interventional Physiatrist Relationship Specialty Start Date End Date Angel Pablo MD [address] [place] [id number] PCP - General Internal Medicine 02/12/20 Mariella Chance MD [address] [place] [address], [address] [place] [address] [email or web address] Historical LMR Provider 04/09/17 Additional Source Comments The information contained in this document represents components of the legal health record. It is not the complete legal health record.[facility]
--- OUTSIDE RECORDS SUMMARY | 2025-02-10 16:21 | XMS_ITS | Patient Health Record ---
[facility] Address [address] [place] [address] Care Team Providers Care Header Set Up Operator Name Role Phone Angel Pablo Primary Care Provider Antonio Giles Unavailable [phone] Allergies Allergen (clinical drug ingredient) Drug/Non Drug [...] Problem Acquired hammer toe of right foot (5757221916166317 ) Other hammer toe(s) (acquired), right foot (M20.41) Active confirmed Response to treatment, Improvemen t Problem Acquired hammer toe of left foot (0483029809690473 ) Other hammer toe(s) (acquired), left foot (M20.42) Active confirmed Response to treatment, Improvemen t Problem Polyneuropathy due to type 2 diabetes mellitus (296419288) Type 2 diabetes mellitus with diabetic polyneuropathy (E11.42) Active confirmed Vital Signs Blood pressure diastolic 65 mm Hg 12/23/2024 Height 3xg15js in 12/23/2024 Blood pressure systolic 110 mm Hg 12/23/2024 Weight 146 lbs 12/23/2024 BMI 30.51 kg/m2 12/23/2024 Procedures Procedure Date Ordered Date Performed Result Body Sit e 85393-NEBEHRP NAIL, 6 OR MORE 03/11/2024 N/A 52633 I&D ABSCESS- SIMPLE,SINGLE 03/11/2024 N/A 66280-JZCL SKIN LESIONS, OVER 4 03/11/2024 N/A 96479-OZJWMIG SKIN/TISSUE 03/25/2024 N/A 76141- Debride <25 sq cm 04/15/2024 N/A 57115-PZCUZZK NAIL, 6 OR MORE 06/10/2024 N/A 96681-GFGX SKIN LESIONS, OVER 4 06/10/2024 N/A 72824-CWCDIPU NAIL, 6 OR MORE 09/16/2024 N/A 19758-OLWL SKIN LESIONS, OVER 4 09/16/2024 N/A 83877-XHTSOQE NAIL, 6 OR MORE 12/23/2024 N/A 67736-AGPP SKIN LESIONS, OVER 4 12/23/2024 N/A Encounters Encounter Location Date Provider Diagnosis [address] [address] 03/11/2024 Antoniorafia Meadier Type 2 diabetes mellitus with diabetic polyneuropathy E11.42 ; Tinea unguium B35.1 and Abscess of right foot L02.[address] [address] 03/25/2024 Antonio Tisha Abscess of right nichole t L02.611 and Neuropathic ulcer of right foot with fat layer exposed L97.[address] [address] 04/15/2024 Antonio Tisha Neuropathic ulcer of right foot, limited to breakdown of skin L97.[address] [address] 05/16/2024 Antonio Tisha Neuropathic ulcer of right foot, limited to breakdown of skin L97.[address] [address] 06/10/2024 Antoniorafia Giles Type 2 diabetes mellitus with diabetic polyneuropathy E11.42 ; Tinea unguium B35.1 ; Other hammer toe(s) (acquired), right foot M20.41 and Other hammer toe(s) (acquired), left foot M20.[address] [address] 09/16/2024 Antonio Giles Type 2 diabetes mellitus with diabetic polyneuropathy E11.42 ; Tinea unguium B35.1 and Xerosis of skin L85.[address] [address] 12/23/2024 Antonio Giles Type 2 diabetes mellitus with diabetic polyneuropathy E11.42 ; Tinea unguium B35.1 and Xerosis of skin L85.[address] [address] 03/11/2024 Antonio Giles [address] [address] 09/26/2024 Antonio Tihsa [address] [address] 2024 Antonio Giles Xerosis of skin L85. [...] X ray : Foot, right 3V 03/03/2022 47921-TOXHSVU NAIL, 6 OR MORE 03/11/2024 35661-EGKKUKL NAIL, 6 OR MORE 09/11/2023 39782-MPKPVCB NAIL, 6 OR MORE 12/11/2023 37423-LPKSGGT NAIL, 6 OR MORE 09/08/2022 67450-ZXZUNJG NAIL, 6 OR MORE 12/08/2022 45891-ZHGCKTC NAIL, 6 OR MORE 03/09/2023 16319-LUGUCHX NAIL, 6 OR MORE 06/08/2023 92612-RAYRIPW NAIL, 6 OR MORE 06/02/2022 60727-ECOOTFH NAIL, 6 OR MORE 03/03/2022 12277-FQVUSGS NAIL, 6 OR MORE 08/30/2021 87089-CEBPXTG NAIL, 6 OR MORE 12/02/2021 91822-VGCYSLM NAIL, 6 OR MORE 06/08/2020 56169-GZCUBGO NAIL, 6 OR MORE 09/03/2020 31056-VDNYZLN NAIL, 6 OR MORE 12/10/2020 05141-PPAIIZO NAIL, 6 OR MORE 03/22/2021 27484-IBXKDAQ NAIL, 6 OR MORE 06/10/2024 27483-VBDNLES NAIL, 6 OR MORE 09/16/2024 95947-VYLJDNY NAIL, 6 OR MORE 12/23/2024 72746-Xkzeidkz Plate 12/11/2023 76842- Debride <25 sq cm 04/15/2024 24189-QYEPKSD SKIN/TISSUE 03/25/2024 39861 I&D ABSCESS- SIMPLE,SINGLE 024 71032-XVTP SKIN LESIONS, OVER 4 06/10/20 24 27424-LRXZ SKIN LESIONS, OVER 4 12/24/19 25 50910-KCUD SKIN LESIONS, OVER 4 09/17/19 25 14769-GNKQ SKIN LESIONS, OVER 4 03/11/20 24 09282-XZWP SKIN LESIONS, OVER 4 12/11/19 24 30692-KLMD SKIN LESIONS, OVER 4 09/11/19 24 14925-CBMB SKIN LESIONS, OVER 4 06/08/20 23 41263-ZDUP SKIN LESIONS, OVER 4 03/09/20 23 40308-PHAO SKIN LESIONS, OVER 4 12/09/19 23 59542-HJOI SKIN LESIONS, OVER 4 09/09/19 23 49252-BJXI SKIN LESIONS, OVER 4 03/22/20 21 34569-EVKH SKIN LESIONS, OVER 4 12/11/19 21 76788-PBQD SKIN LESIONS, OVER 4 09/04/19 21 04799-HHFF SKIN LESIONS, OVER 4 06/08/20 20 36035-KJPW SKIN LESIONS, OVER 4 12/03/19 22 01871-PQJT SKIN LESIONS, OVER 4 08/31/19 24359-VZIU SKIN LESIONS, OVER 4 03/03/20 22 06866-LBFE SKIN LESIONS, OVER 4 06/02/20 Next Appt Details Provider Name:Antonio Giles , 03/27/2025 09:30:00 AM, [address] [place] [address], [place], [address], Insurance Providers Payer Name Payer Address Payer Phone Subscriber Number Group Number Insured Name Patient Relationship to Insured Coverage Start Date Coverage End Date Medicare National [employer] [address] [place] [address] [phone] [id number] Kriss Jcakson Self - patient is the insured [employer] [address] [place] [address] [id number] Kriss Jackson Self - patient is the [...]
== END 2025-02-10 15:33 | disposition home or self-care (01) ==
LOC: HO.HVS 15:00
PROVIDERS: PCP Internal Medicine; Visit Provider Surgery Vascular Surgery
DX: M79.605 Pain in left leg (principal)
CPT/HCPCS: 99214

== ENCOUNTER → 2025-02-10 14:59 | Outpatient (BNVA) | payer MEDICARE, SELFPAY | PROVIDERS: PCP Internal Medicine; Visit Provider Surgery Vascular Surgery | DX: M79.605 Pain in left leg (principal) | CPT/HCPCS: 99212 ==

== ENCOUNTER 2025-03-10 12:16 | Outpatient (AMB) | payer MEDICARE, SELFPAY ==
--- NOTE | 2025-03-10 12:34 | A.OFFVIS_ITS ---
Vital Signs 03/10/25 12:41 Height 4 ft 10 in Weight 149 lb 14.629 oz BMI 31.3 BP 120/62 Blood Pressure Location Rt brachial Position Sitting Pulse 65 Pulse Source Pulse Oximeter Pulse Oximetry (%) 96 Oxygen Delivery Method Room Air Intake Visit Reasons: 4 months f/u Intake Note: Patient presents for RA follow up. Allergies duloxetine Allergy (Severe, Verified 03/10/25 12:40) LOOPY codeine (CODEINE) Allergy (Intermediate, Verified 03/10/25 12:40) GI UPSET doxycycline (DOXYCYCLINE) Allergy (Intermediate, Verified 03/10/25 12:40) RASH Sulfa (Sulfonamide Antibiotics) (SULFA (SULFONAMIDE ANTIBIOTICS)) Allergy (Intermediate, Verified 03/10/25 12:40) Hives Medication List - Last Reconciled 03/10/25 by Yanira Hurley MD adalimumab (Humira(CF) Pen) 40 mg (0.4 mL) subcut Q2W albuterol sulfate 90 mcg/actuation (ProAir HFA) 2 puffs inhalation Q4-6H PRN 30 days ammonium lactate 12% 12 appl topical BID aspirin 81 mg PO DAILY atorvastatin 10 mg PO BEDTIME betamethasone valerate 0.1% 1 appl topical BID PRN blood sugar diagnostic (TV Pixieuch Ultra Test strips) As directed 3x daily cholecalciferol (vitamin D3) (Vitamin D3) 4,000 units PO DAILY cyanocobalamin (vitamin B-12) (Vitamin B-12) 500 mcg PO DAILY famotidine 40 mg PO TID fluticasone propionate 50 mcg/actuation 2 sprays intranasal DAILY folic acid 1 mg PO DAILY furosemide 10 mg (1/2 x 20 mg) PO DAILY gabapentin 300 mg PO TID hydroxychloroquine 200 mg PO BID insulin glargine (Lantus Solostar U-100 Insulin) 60 units (0.6 mL) subcut BEDTIME 30 days insulin lispro (Humalog Kervin KwikPen (U-100)) 20 units (0.2 mL) subcut BID 90 days insulin syringe-needle U-100 As directed lamotrigine 50 mg PO BID lidocaine 5% 1 patch topical DAILY lisinopril-hydrochlorothiazide 10-12.5 mg 1 tab PO DAILY 90 days Held on 01/20/25. Instructions: Doctor's Order loperamide 2 mg PO TID metoprolol succinate ER (Toprol XL) 50 mg PO DAILY metronidazole 1% 1 appl topical DAILY nystatin 10 mL PO TID oxybutynin chloride ER 10 mg PO DAILY pen needle, diabetic As directed 2 times per day walker As directed zoledronic pwnw-hdwewxyf-licll 5 mg/100 mL (Reclast) 5 ea IV ONCE HPI Comments Details: Patient is a 74-year-old female with diabetes complicated by neuropathy, hypertension, polyarticular OA, osteopenia with elevated FRAX and seronegative erosive rheumatoid arthritis who presents for follow-up. Interval History: Last seen 11/03/2024 with me - On IV zoledronic acid, Humira 40 mg every 2 weeks, methotrexate 20 mg every week, folic acid 1 mg daily, hydroxychloroquine 200 mg twice a day - Foot ulcer is healing well. Has shoe insoles that she wears now - Had vein ablation in her left thigh, now complaining of some calf pain - States that she still has pain in her hands and does not feel that much difference - exam was much better on Humira plan was to taper medications at next visit Today, - On IV zoledronic acid, Humira 40 mg every 2 weeks, methotrexate 20 mg every week, folic acid 1 mg daily, hydroxychloroquine 200 mg twice a day - Foot ulcer healed but notes it started hurting again, has f/u with podiatry - Hands hurt all the time, everything hurts Rheumatologic History: Subcutaneous methotrexate: start date unknown? Around 2018 or 2019-January 2022. Stopped due to insurance issues Plaquenil: Start date unknown ? Around 2018 or 2019 Oral methotrexate- January 2022 to present - Increased 6 -> 8 pills due to poor disease control (11/2023) Osteopenia - Diagnosed 01/23/2023 with T-score-2.1 at left femoral neck - FRAX score at that time meeting criteria for treatment with risk of hip fracture more than 3% and risk of major osteoporosis fracture more than 20%. - On Zolendronic Acid. Doses: 02/2023, 03/2024 Current Rheumatology Medications: Zoledronic acid IV 02/2023, 03/2024 Humira 40mg SC every 2 weeks Methotrexate 20 mg every week (8 pills) Folic acid 1 mg daily Hydroxychloroquine 200 mg twice a day [facility] Medical History (Updated 09/16/25 @ 13:16 by Yanira Hurley MD) Fibromyalgia Lexi infection of mouth Varicose veins of both lower extremities with inflammation Petechiae Dysphagia Encounter for ongoing osteoporosis therapy, bisphosphonates Osteoarthritis of hands, bilateral Osteopenia Rheumatoid arthritis with negative rheumatoid factor intermediate frame tender methotrexate user Edema of lower extremity present on examination intermediate frame tender use of drug Irritable bowel syndrome with diarrhea Rheumatoid arthritis Pacemaker TIA (transient ischemic attack) Dysphagia Spinal stenosis COVID COVID-19 Laryngopharyngeal reflux (LPR) Asthma Rotator cuff tendinitis Post-menopausal Polyarthralgia Dyspnea on exertion Allergic rhinitis Bronchitis Asthma exacerbation Cough variant asthma DJD (degenerative joint disease) Decreased hearing GERD (gastroesophageal reflux disease) Type 2 diabetes 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s Surgical History S/P placement of cardiac pacemaker History of esophagogastroduodenoscopy (EGD) History of colonoscopy (~09/05/21) Hx of cholecystectomy Hx of tonsillectomy Hx of hysterectomy Family History Father CVD (cardiovascular disease) Diabetes Mother Diabetes Sister No problems noted. Other Substance use disorder Social History Household Members: Family and None Housing: House Are you a primary critical care clinical nurse specialist to a significant other at home: No Do you presently have visiting nurse or other home services: No Alcohol intake: former Comment: WITHIN LAST MONTH Patient Tobacco Use Status: Never used Tobacco e-Cigarette/Vaping Use: Never Used Second Hand Smoke Exposure: No Advance Directives Date on File: 08/04/22 service: No Current occupational status: retired Cognitive needs: Yes (walker) Hearing needs: Yes (hearing aide) Vision needs: Yes (glasses) Review of Systems Const Details: Review of Systems Constitutional: Denies fever, chills, weight loss ENT: Denies vision changes, eye pain or eye redness, dental caries, dry mouth GI: Denies nausea, vomiting, diarrhea, abdominal pain, change in BM Pulm: Denies SOB, HECK, hemoptysis, wheezing Cards: Denies chest pain, palpitations Skin: Denies Raynaud's, rash, nail changes, photosensitivity, FIRE LOSS PREVENTION ENGINEER: Denies headaches, weakness, paresthesias, recurrent falls MSK: as per HPI All other systems reviewed and are unremarkable except noted above Physical Exam Exam Exam: Vital signs reviewed Physical Examination CONSTITUITIONAL Patient alert and cooperative. Well appearing and in no apparent painful distress MSK Hands * Right Hand: Able to make a fist. No swelling. TTP of the entire hand * Left Hand: Able to make a fist. No swelling. TTP of the entire hand * Herbedens and Bouchards nodes noted bilaterally Wrists * Right Wrist: Full ROM to flexion and extension. No swelling. TTP * Left Wrist: Full ROM to flexion and extension. No swelling. TTP Elbows * Right Elbow: Full ROM. No swelling or TTP. No TTP of the medial epicondyle. No TTP of the lateral epicondyle * Left Elbow: Full ROM. No swelling or TTP. No TTP of the medial epicondyle. No TTP of the lateral epicondyle Shoulders * Right shoulder: Decreased ROM. No swelling noted. No TTP of the AC joint. No TTP of the subacromial bursa. No TTP of the posterior shoulder * Left shoulder: Decreased ROM. No swelling noted. No TTP of the AC joint. No TTP of the subacromial bursa. No TTP of the posterior shoulder Hips * Right hip: Good ROM. No pain elicited with hip flexion/internal rotation/external rotation * Left hip: Good ROM. No pain elicited with hip flexion/internal rotation/external rotation Hip bursa: TTP bilaterally Knees * Right knee: Decreased ROM. No swelling noted. No TTP of the knee joint line. TTP of pes anserine bursa * Left knee: Decreased ROM. No swelling noted. No TTP of the knee joint line. TTP of pes anserine bursa. Ankles * Right ankle: Good ankle dorsiflexion and plantar flexion. No swelling. No TTP of the ankle joint * Left ankle: Good ankle dorsiflexion and plantar flexion. No swelling. No TTP of the ankle joint Feet * Right foot: Negative squeeze test * Left foot: Negative squeeze test Tender points? * Tenderness to palpation of the bilateral trapezius, supraspinatus, anterior costochondral junctions, bilateral suboccipital muscle insertions SKIN No rashes Vital Signs: Last Vital Signs Pulse 65 03/10/25 12:41 BP 120/62 03/10/25 12:41 Pulse Ox 96 03/10/25 12:41 Oxygen Delivery Method Room Air 03/10/25 12:41 BMI result Body Mass Index 31.3 Results Reviewed Results Reviewed: Laboratory Tests 12/29/24 01/06/25 01/26/25 11:28 10:33 15:05 WBC 7.8 RBC 3.45 L Hgb 11.0 L Hct 32.1 L Plt Count 166 Sodium 144 Potassium 4.1 Chloride 106 Carbon Dioxide 27 BUN 26 H Creatinine 1.19 AST 26 ALT 21 DEXA 01/2023 FINDINGS: AP SPINE L1-L2 (excluding L3 and L4): The data of L1-L4 has been changed to exclude the L3 and L4 vertebral bodies, because degenerative sclerosis at these levels may cause overestimation of lumbar spine density. Current: BMD 1.032 g/cm2, Z-score 0.3, T-score -1.1, osteopenia, 2.0% increase from baseline (<5% change is not significant). Baseline: BMD 1.012 g/cm2. LEFT FEMUR, NECK: Current: BMD 0.745 g/cm2, Z-score -0.5, T-score -2.1, osteopenia. Baseline: BMD 0.975 g/cm2. LEFT FEMUR, TOTAL: Current: BMD 0.882 g/cm2, Z-score 0.4, T-score -1.0, normal, 18.2% decrease from baseline (<5% change is not significant). Baseline: BMD 1.078 g/cm2. Assessment & Plan Assessment & Plan (1) Rheumatoid arthritis with negative rheumatoid factor: Comment: Subcutaneous methotrexate: start date unknown? Around 2019 or 2019-January 2022 Plaquenil: Start date unknown ? Around 2018 or 2019 Oral methotrexate- January 2022 to 12/2024. Due to Code(s): M06.00 - Rheumatoid arthritis without rheumatoid factor, unspecified site Category: Medical Qualifiers: Rheumatoid arthritis location: multiple sites Qualified Code(s): M06.09 - Rheumatoid arthritis without rheumatoid factor, multiple sites Plan: #Seronegative Erosive RA Patient is a 74-year-old female with seronegative erosive rheumatoid arthritis here today for follow up. No evidence of active synovitis art this time Her exam is more consistent with fibromyalgia Stopped Mtx due to side effects, not noting much improvement on Humira Will stop Humira and re evaluated Plan - Stop Humira - Plaquenil 400mg daily PO - RTC 4 months - Labs before visit: CBC, CMP, ESR, CRP (2) Fibromyalgia: Code(s): M79.7 - Fibromyalgia Category: Medical Plan: #Fibromyalgia Exam consistent with fibromyalgia Already on gabapentin which was recently reduced due to dizziness Recommended strecthes Pamphlet given (3) Osteopenia: Comment: DEXA 01/2023. AP Spine -1.1, Left femur neck -2.1, Left femur total -1.0. FRAX 24.2/6.7 IV Reclast 02/2023 - present Code(s): M85.80 - Other specified disorders of bone density and structure, unspecified site Category: Medical Qualifiers: Laterality: left Osteopenia location: femoral neck Qualified Code(s): M85.852 - Other specified disorders of bone density and structure, left thigh Plan: #Osteopenia with elevated FRAX Due for Reclast and DEXA No falls or fractures Plan - DEXA scan - IV reclast 5mg yearly - Vit D supplementation (4) Osteoarthritis of hands, bilateral: Code(s): M19.041 - Primary osteoarthritis, right hand; M19.042 - Primary osteoarthritis, left hand Category: Medical Qualifiers: Osteoarthritis type: primary Qualified Code(s): M19.041 - Primary osteoarthritis, right hand; M19.042 - Primary osteoarthritis, left hand Plan: #Bilateral hand osteoarthritis Patient with bilateral hand osteoarthritis as evidenced by x-rays as well as Heberden's nodes noted to the DIPs as well as Kiersten's nodes noted to the PIPs. Recommended paraffin wax baths twice a day Plan - Topical diclofenac gel for hands bilaterally up to 4 times a day (5) Long-term use of hydroxychloroquine: Comment: Eye exam OK 08/2022 Code(s): Z79.899 - Other longitudinal float operator (current) drug therapy Category: Medical Plan: #Long-term Use of Hydroxychloroquine Discussed with patient the risks and benefits of hydroxychloroquine in managing the rheumatic condition Benefits include: - Reduced pain, reduce mortality, maintenance of remission and reduction of flares Risks include: - GI upset, skin hyperpigmentation, retinal toxicity (especially after more than 5 years of use), myopathy Advised yearly ophthalmology visits Last ophthalmology visit: 08/2022 (6) Encounter for ongoing osteoporosis therapy, bisphosphonates: Code(s): M81.0 - Age-related osteoporosis without current pathological fracture; Z79.83 - MCC (current) use of bisphosphonates Plan: #Long-term Use of Bisphosphonates Risks and benefits of bisphosphonates in the management of osteoporosis Benefits include improved bone density, decreased fracture risk Risks include atypical femoral fractures, GI upset, esophageal strictures Contraindicated in patients with a creatinine clearance < 30 to 35 ml/min Keep vitamin-D at least 35 ng/mL Plan I spent 30 minutes reviewing the record and labs, seeing the patient, discussing the treatment plan and documenting in the medical record Orders: Orders Erythrocyte Sedimentation Rate 4 Months Z79.899 - Other longitudinal float operator (current) drug therapy Vitamin D 25-OH Total Today Z79. - Other longitudinal float operator (current) drug therapy Comprehensive Met. Panel Today Z.899 - Other longitudinal float operator (current) drug therapy XR DEXA axial skeleton Today M81.0 - Age-related osteoporosis without current pathological fracture Complete Blood Count Auto Diff 4 Months Z79.899 - Other fpc (current) drug therapy C Reactive Protein 4 Months Z79. - Other longitudinal float operator (current) drug therapy Comprehensive Met. Panel 4 Months Z.899 - Other fpc (current) drug therapy Vitamin D 25-OH Total Today M81.0 - Age-related osteoporosis without current pathological fracture Comprehensive Met. Panel Today M81.0 - Age-related osteoporosis without current pathological fracture Referrals Infusion Center Notification M81.0 - Age-related osteoporosis without current pathological fracture Medications: Discontinued adalimumab (Humira(CF) Pen) Discontinued Reason: Doctor's Order 40 mg (0.4 mL) subcut Q2W 2 ea 6RF M06.09 - Rheumatoid arthritis without rheumatoid factor, multiple sites Coding Level of Care Code Est Pt Level 4 (57629) Complex EM visit Add On G2211 Diagnoses Rheumatoid arthritis of multiple sites with negative rheumatoid factor M06.09 Rheumatoid arthritis location: multiple sites Fibromyalgia M79.7 Osteopenia of neck of left femur M85.852 Laterality: left Osteopenia location: femoral neck Primary osteoarthritis of both hands M19.041; M19.042 Osteoarthritis type: primary Long-term use of hydroxychloroquine Z79.899 Encounter for ongoing osteoporosis therapy, bisphosphonates M81.0; Z79.83
[2025-03-10 12:41] VITALS: BP 120/62; PULSE 65; O2SAT 96; BMI 31.3
--- OUTSIDE RECORDS SUMMARY | 2025-03-10 16:21 | XMS_ITS | Patient Health Record ---
[facility] Address [address] [place] [address] Care Team Providers Care Commercial Specialist Name Role Phone Angel Pablo Primary Care Provider Antonio Giles Unavailable [phone] Allergies Allergen (clinical drug ingredient) Drug/Non Drug Allergy documented on EMR Reaction Allergy Type Onset Date Status sulfamethoxazole / trimethoprim Bactrim hives Drug Allergy Active duloxetine Cymbalta Unknown Drug Allergy Active doxycycline Doxycycline Unknown Drug Allergy Act jenanette codeine Codeine stomach upset Drug Allergy Act [...] Problem Acquired hammer toe of right foot ([id number] ) Other hammer toe(s) (acquired), right foot (M20.41) Active confirmed Response to treatment, Improvemen t Problem Acquired hammer toe of left foot (2704036000847509 ) Other hammer toe(s) (acquired), left foot (M20.42) Active confirmed Response to treatment, Improvemen t Problem Polyneuropathy due to type 2 diabetes mellitus (610784656) Type 2 diabetes mellitus with diabetic polyneuropathy (E11.42) Active confirmed Vital Signs Blood pressure diastolic 65 mm Hg 12/23/2024 Height 2lg43qu in 12/23/2024 Blood pressure systolic 110 mm Hg 12/23/2024 Weight 146 lbs 12/23/2024 BMI 30.51 kg/m2 12/23/2024 Procedures Procedure Date Ordered Date Performed Result Body Sit e 30619-CHKGUAR NAIL, 6 OR MORE 03/11/2024 N/A 39273 I&D ABSCESS- SIMPLE,SINGLE 03/11/2024 N/A 49488-ENIC SKIN LESIONS, OVER 4 03/11/2024 N/A 77623-KPBAUGX SKIN/TISSUE 03/25/2024 N/A 18676- Debride <25 sq cm 04/15/2024 N/A 08730-TDQZFRL NAIL, 6 OR MORE 06/10/2024 N/A 98900-GWNF SKIN LESIONS, OVER 4 06/10/2024 N/A 12553-IYHIBLR NAIL, 6 OR MORE 09/16/2024 N/A 05233-HGZH SKIN LESIONS, OVER 4 09/16/2024 N/A 45173-JUYZDLY NAIL, 6 OR MORE 12/23/2024 N/A 56676-GDHN SKIN LESIONS, OVER 4 12/23/2024 N/A Encounters Encounter Location Date Provider Diagnosis [address] [address] 03/11/2024 Antoniorafia Meadier Type 2 diabetes mellitus with diabetic polyneuropathy E11.42 ; Tinea unguium B35.1 and Abscess of right foot L02.[address] [address] 03/25/2024 Antonio Tisha Abscess of right nichole t L02.611 and Neuropathic ulcer of right foot with fat layer exposed L97.[address] [address] 04/15/2024 Antonio Tisha Neuropathic ulcer of right foot, limited to breakdown of skin L97.[address] [address] 05/16/2024 Antonio Tisha Neuropathic ulcer of right foot, limited to breakdown of skin L97.[address] [address] 06/10/2024 Antoniorafia Giles Type 2 diabetes mellitus with diabetic polyneuropathy E11.42 ; Tinea unguium B35.1 ; Other hammer toe(s) (acquired), right foot M20.41 and Other hammer toe(s) (acquired), left foot M20.[address] [address] 09/16/2024 Antonio Giles Type 2 diabetes mellitus with diabetic polyneuropathy E11.42 ; Tinea unguium B35.1 and Xerosis of skin L85.[address] [address] 12/23/2024 Antonio Giles Type 2 diabetes mellitus with diabetic polyneuropathy E11.42 ; Tinea unguium B35.1 and Xerosis of skin L85.[address] [address] 03/11/2024 Antonio Giles [address] [address] 09/26/2024 Antoniorafia Meadier [address] [address] 2024 Antonio Giles Xerosis of skin L85. 3 Assessments Encounter Date Diagnosis (ICD Code) Assessment Notes Treatment Notes Treatment Clinical Notes Section Notes 03/11/2024 Type 2 diabetes mellitus with diabetic polyneuropathy (ICD-10 - E11.42) 03/11/2024 Tinea unguium (ICD-10 - B35.1) 04/15/2024 Neuropathic ulcer of right foot, limited [...] E11.42) 09/16/2024 Tinea unguium (ICD-10 - B35.1) 03/25/2024 Abscess of right foot (ICD-10 - L02.611) 12/23/2024 Type 2 diabetes mellitus with diabetic polyneuropathy (ICD-10 - E11.42) 12/23/2024 Tinea unguium (ICD-10 - B35.1) 2024 Xerosis of skin (ICD-10 - L85.3) 12/23/2024 Xerosis of skin (ICD-10 - L85.3) 03/25/2024 Neuropathic ulcer of right foot with fat layer exposed (ICD-10 - L97.512) Response to treatment,Nonap plicable Patient Educated with: WOUND CARE INSTRUCTIONS. pdf (WOUND CARE INSTRUCTIONS. pdf) 06/10/2024 Other hammer toe(s) (acquired), right foot (ICD-10 - M20.41) Response to treatment,Impro vement 03/11/2024 Abscess of right foot (ICD-10 - [...] X ray : Foot, right 3V 03/03/2022 75491-OCXOXBR NAIL, 6 OR MORE 03/11/2024 28312-GNLKVCN NAIL, 6 OR MORE 09/11/2023 77348-IMNCCCY NAIL, 6 OR MORE 12/11/2023 03995-TJRBNQW NAIL, 6 OR MORE 09/08/2022 10366-CPSVVNY NAIL, 6 OR MORE 12/08/2022 28904-VZVVQZX NAIL, 6 OR MORE 03/09/2023 63064-GMZGWBN NAIL, 6 OR MORE 06/08/2023 13256-HHGCDVZ NAIL, 6 OR MORE 06/02/2022 35576-CFHQXUG NAIL, 6 OR MORE 03/03/2022 25676-YCVFCWQ NAIL, 6 OR MORE 08/30/2021 52452-EWUYHIE NAIL, 6 OR MORE 12/02/2021 55448-BDVQDCH NAIL, 6 OR MORE 06/08/2020 08623-REJEFMT NAIL, 6 OR MORE 09/03/2020 54614-HATYEOR NAIL, 6 OR MORE 12/10/2020 85684-HTJRZBQ NAIL, 6 OR MORE 03/22/2021 02941-WDEUDFO NAIL, 6 OR MORE 06/10/2024 38429-WSBUITR NAIL, 6 OR MORE 09/16/2024 39768-QSUGSTU NAIL, 6 OR MORE 12/23/2024 29417-Awzfdyuk Plate 12/11/2023 03470- Debride <25 sq cm 04/15/2024 55320-HAYNBZM SKIN/TISSUE 03/25/2024 66372 I&D ABSCESS- SIMPLE,SINGLE 024 07289-ZTTB SKIN LESIONS, OVER 4 06/10/20 24 02593-SGYU SKIN LESIONS, OVER 4 12/24/19 25 66510-DUCB SKIN LESIONS, OVER 4 09/17/19 25 46205-IWLU SKIN LESIONS, OVER 4 03/11/20 24 70763-ZZFV SKIN LESIONS, OVER 4 12/11/19 24 33215-ZIBZ SKIN LESIONS, OVER 4 09/11/19 24 49991-CRDW SKIN LESIONS, OVER 4 06/08/20 23 69447-SPHK SKIN LESIONS, OVER 4 03/09/20 23 80890-LACK SKIN LESIONS, OVER 4 12/09/19 23 99460-BHSV SKIN LESIONS, OVER 4 09/09/19 23 46748-YPCG SKIN LESIONS, OVER 4 03/22/20 21 99371-CAMH SKIN LESIONS, OVER 4 12/11/19 21 21302-ZEYF SKIN LESIONS, OVER 4 09/04/19 21 36507-LDBQ SKIN LESIONS, OVER 4 06/08/20 20 89003-EVRU SKIN LESIONS, OVER 4 12/03/19 22 61595-OALP SKIN LESIONS, OVER 4 08/31/19 14046-KMHS SKIN LESIONS, OVER 4 03/03/20 22 83473-DREZ SKIN LESIONS, OVER 4 06/02/20 Next Appt Details Provider Name:Antonio Giles , 03/27/2025 09:30:00 AM, [address] [place] [address], [place], [address], Insurance Providers Payer Name Payer Address Payer Phone Subscriber Number Group Number Insured Name Patient Relationship to Insured Coverage Start Date Coverage End Date Medicare National [employer] [address] [place] [address] [id number] Kriss Jackson Self - patient is the insured [employer] [address] [place] [address] [phone] [id number] Kriss Jackson Self - patient is the [...]
--- OUTSIDE RECORDS SUMMARY | 2025-03-10 16:21 | XMS_ITS | Clinical Summary ---
Author Organization [facility] Address [address] [facility] [address] [place] [address] Phone Care Team Providers Care Lot Worker Name Role Phone Mariella Chance MD Unavailable [phone] Angel Pablo MD Primary Care Provid [...] (four) hours as needed. Active nebulizer accessories [facility] as directed. 11/08/19 14 Active cholecalciferol, vitamin [...] 10:41 AM EDT): Continue close follow-up with chute man as scheduled. Aim @ BS= 90-120 mg % Assessment & Plan (07/14/2019 8:25 AM EST): Continue close follow-up with chute man as scheduled. Aim @ BS= 90-120 mg % Assessment & Plan (04/18/2019 10:48 AM EDT): Continue close follow-up with chute man as scheduled. Assessment & Plan (02/04/2019 7:57 PM EDT): Continue close follow-up with chute man as scheduled. Assessment & Plan (08/08/2018 4:43 [...] headboard elevated at 45 angle for nighttime. terminal carman current use of systemic steroids 03/13 Assessment [...] the dose. Daily sun protection. Follow-up with hide worker as scheduled at least once yearly. Assessment & Plan (05/18/2020 10:43 PM EST): Continue exactly as prescribed. No change in the dose. Daily sun protection. Follow-up with hide worker as scheduled at least once yearly. Assessment & Plan (02/12/2020 10:39 AM EDT): Continue exactly as prescribed. No change in the dose. Daily sun protection. Follow-up with hide worker as scheduled at least once yearly. Assessment & Plan (12/01/2019 3:17 PM EDT): Continue exactly as prescribed. No change in the dose. Daily sun protection. Follow-up with hide worker as scheduled at least once yearly. Assessment & Plan (07/14/2019 8:22 AM EST): Continue exactly as prescribed. No change in the dose. Daily sun protection. Follow-up with hide worker as scheduled at least once yearly. Assessment & Plan (04/18/2019 10:48 AM EDT): Continue exactly as prescribed. No change in the dose. Daily sun protection. Follow-up with hide worker as scheduled at least once yearly. Assessment & Plan (02/04/2019 8:04 PM EDT): Continue exactly as prescribed. No change in the dose. Daily sun protection. Follow-up with hide worker as scheduled at least once yearly. Assessment [...] Comments Other Unspecified Diabetes, heart disease, stroke, CAD/MT. Sister with COPD (former smoker). Sister with [...] 08/16/2021 08/16/2020, 04/25, 02/12/2020, Additional history exists INFLUENZA VACCINE (#1) 2025 , 03/13/2018, 04/13/2017, Additional history exists OSTEOPOROSIS SCREENING INITIAL (ONE-TIME) [...] of multiple sites with negative rheumatoid factor terminal carman current use of systemic steroids POCT HEMOGLOBIN A1C Routine 08/08/2018 3 :34 PM EST Type 2 diabetes mellitus with diabetic polyneuropathy, without long-term current use of insulin from Last 3 Months or Most Recently Relevant to Health Maintenance Results * (ABNORMAL) Comprehensive metabolic panel (08/16/2020 10:40 AM EST) SODIUM 140 133 - 146 mmol/L [facility] POTASSIUM 4.3 3.3 - 5.1 mmol/L [facility] CHLORIDE 103 96 - 108 mmol/L [facility] CO2 25 21 - 35 mmol/L [facility] BUN 30(H) 6 - 19 mg/dL [facility] CREATININE 1.00 0.5 - 1.5 mg/dL [facility] GLUCOSE 133(H) 70 - 99 mg/dL [facility] ALBUMIN 4.3 3.9 - 4.8 g/dL [facility] TOTAL PROTEIN 7.1 6.5 - 8.0 g/dL [facility] CALCIUM 9.1 8.4 - 10.3 mg/dL [facility] ALKALINE PHOSPHATASE 79 39 - 117 U/L [facility] TOTAL BILIRUBIN 0.4 0.0 - 1.2 mg/dL [facility] AST 35 0 - 37 U/L [facility] ALT 16 0 - 40 U/L [facility] GLOBULIN 2.8 1 - 4.8 g/dL [facility] EGFR 57(L) >59 mL/min/1.7 3m2 [facility] Comment:Estimated glomerular filtration rate calculated using the CKD-EPI equation. ANION GAP 16 10 - 20 mmol/L [facility] Blood 08/16/2020 10:4 0 AM EST 08/16/2020 10:46 AM EST us Kaya Marquez MD LAB BLOOD ORDERABLES Fin al Result Performing Organization Address City/State/[facility] Co de Phone Number [facility] [address] [place] [address] * BD DXA AXIAL (SPINE) WITH HIP (09/06/2018 10:51 AM EDT) Anatomical Region Laterality Modality Bone Density Bone Density 09/06/2018 3:18 PM EDT Impressions 09/06/2018 3:21 PM EDT Normal bone mineral density with statistically significant increase in bone mineral density in the hips since 2001. POS - [id number] Narrative 09/06/2018 3:21 PM EDT COMPARISON: 12/02/2001 [...] the right hip was calculated at 1.071 gm/pk7fsci a T-score of 1.1 falling within the WHO classification of normal.Z-score of 2.4. 3.3% increase in bone mineral density since the priorexam which is statistically significant at the 95% confidence level. Total bone mineral density in the left hip was calculated at 1.095 gm/dl0izga a T-score of 1.36 falling within the WHO classification of normal.Z-score of 2.6. 3.4% increase in bone mineral density since the priorexam which is statistically significant at the 95% confidence level. IMPRESSION: Normal bone mineral density with statistically significant increase inbone mineral density in the hips since 2001. POS - [id number] us Kaya Marquez MD IMG BD BONE DENSITY DEXA Final Result * POCT Hemoglobin A1c (08/08/2018 3:34 PM EST) Hemoglobin A1c 5.3 4.2 - 5.8 % [facility] Other 08/08/2018 3:34 PM EST us Mariella Chance MD POINT OF CARE TEST ORDERABLES F inal Result [facility] [address] [place] [address] from Last 3 Months or Most Recently Relevant to Health Maintenance Insurance MEDICARE PART A & B [place] CROSS MEDEX SUPPLEMENT MEDICARE PART A & B [employer] CROSS MEDEX SUPPLEMENT MEDICARE PART A & B [employer] MEDEX SUPPLEMENT MEDICARE PART A & B [employer] MEDEX SUPPLEMENT MEDICARE PART A & B [employer] MEDEX SUPPLEMENT MEDICARE PART A & B [place] [employer] MEDEX SUPPLEMENT MEDICARE PART A & B [employer] CROSS MEDEX SUPPLEMENT MEDICARE PART A & B [employer] MEDEX SUPPLEMENT MEDICARE PART A & B [employer] MEDEX SUPPLEMENT Care Teams Lot Worker Relationship Specialty Start Date End Date Angel Pablo MD [address] [place] [id number] PCP - General Internal Medicine 02/12/20 Mariella Chance MD [address] [facility], 1st [place] [address] [email or web address] Historical LMR Provider 04/09/17 Additional Source Comments The information contained in this document represents components of the legal health record. It is not the complete legal health record.[facility]
== END 2025-03-10 13:17 | disposition home or self-care (01) ==
LOC: HO.RHES 12:17
PROVIDERS: PCP Internal Medicine; Visit Provider Student in an Organized Health Care Education/Training Program
DX: M06.09 Rheumatoid arthritis without rheumatoid factor, multiple sites (principal); M79.7 Fibromyalgia; M85.852 Other specified disorders of bone density and structure, left thigh; M19.041 Primary osteoarthritis, right hand; M19.042 Primary osteoarthritis, left hand; Z79.899 Other long term (current) drug therapy; M81.0 Age-related osteoporosis without current pathological fracture; Z79.83 Long term (current) use of bisphosphonates
CPT/HCPCS: 99214; G2211

== ENCOUNTER → 2025-03-10 12:16 | Outpatient (BNVA) | payer MEDICARE, SELFPAY | PROVIDERS: PCP Internal Medicine; Visit Provider Student in an Organized Health Care Education/Training Program | DX: M06.09 Rheumatoid arthritis without rheumatoid factor, multiple sites (principal); M79.7 Fibromyalgia; M81.0 Age-related osteoporosis without current pathological fracture; M85.852 Other specified disorders of bone density and structure, left thigh; M19.041 Primary osteoarthritis, right hand; M19.042 Primary osteoarthritis, left hand; Z79.899 Other long term (current) drug therapy; Z79.83 Long term (current) use of bisphosphonates | CPT/HCPCS: 99212 ==

== ENCOUNTER 2025-03-19 08:51 | Outpatient (AMB) | payer MEDICARE, SELFPAY ==
--- NOTE | 2025-03-19 09:05 | MHC.PC.OV ---
Vital Signs 03/19/25 09:06 Height 4 ft 10 in Weight 151 lb BMI 31.6 BP 130/72 Blood Pressure Location Lt brachial Position Sitting Pulse 65 Pulse Source Pulse Oximeter Temp 96.9 F Temp Source Temporal Artery Scan Pulse Oximetry (%) 97 Oxygen Delivery Method Room Air Intake Visit Reasons: 3mth f/u Intake Note: Patient is here to follow up on DM, CAD, HTN. 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: Not Required per policy Accompanied by: Self / Same As Patient Allergies duloxetine Allergy (Severe, Verified 03/19/25 09:06) LOOPY codeine (CODEINE) Allergy (Intermediate, Verified 03/19/25 09:06) GI UPSET doxycycline (DOXYCYCLINE) Allergy (Intermediate, Verified 03/19/25 09:06) RASH Sulfa (Sulfonamide Antibiotics) (SULFA (SULFONAMIDE ANTIBIOTICS)) Allergy (Intermediate, Verified 03/19/25 09:06) Hives Tobacco use date assessed: 03/19/25 Fall risk assessment: No Falls in past year Last assessed Fall Risk: 03/19/25 Dental Screening Dental Screen Date: 08/21/24 [facility] Medical History (Updated 03/10/25 @ 13:16 by Yanira Hurley MD) Fibromyalgia Lexi infection of mouth Varicose veins of both lower extremities with inflammation Petechiae Dysphagia Encounter for ongoing osteoporosis therapy, bisphosphonates Osteoarthritis of hands, bilateral Osteopenia Rheumatoid arthritis with negative rheumatoid factor 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 methotrexate 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 Edema of lower extremity present 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 Irritable bowel syndrome with diarrhea Rheumatoid arthritis Pacemaker TIA (transient ischemic attack) Dysphagia Spinal stenosis COVID COVID-19 Laryngopharyngeal reflux (LPR) Asthma Rotator cuff tendinitis Post-menopausal Polyarthralgia Dyspnea on exertion Allergic rhinitis Bronchitis Asthma exacerbation Cough variant asthma DJD (degenerative joint disease) Decreased hearing GERD (gastroesophageal reflux disease) Type 2 diabetes 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s Surgical History S/P placement of cardiac pacemaker History of esophagogastroduodenoscopy (EGD) History of colonoscopy (~09/05/21) Hx of cholecystectomy Hx of tonsillectomy Hx of hysterectomy Family History Father CVD (cardiovascular disease) Diabetes Mother Diabetes Sister No problems noted. Other Substance use disorder Social History Household Members: Family and None Housing: House Are you a primary geriatric personal care aide to a significant other at home: No Do you presently have visiting nurse or other home services: No Alcohol intake: former Comment: WITHIN LAST MONTH Patient Tobacco Use Status: Never used Tobacco e-Cigarette/Vaping Use: Never Used Second Hand Smoke Exposure: No Advance Directives Date on File: 08/04/22 service: No Current occupational status: retired Cognitive needs: Yes (walker) Hearing needs: Yes (hearing aide) Vision needs: Yes (glasses) Questionnaire Thrive Questionnaire Date Thrive assessed: 12/18/24 I am a: Patient What is your living situation today?: I choose not to answer this question Within the past 12 months, did the food you bought not last and you didn't have the money to get more?: I choose not to answer this question Within the past 12 months, did you worry whether your food would run out before you got money to buy more?: I choose not to answer this question Do you have trouble paying for medicines?: I choose not to answer this question Do you have trouble getting transportation to medical appointments?: I choose not to answer this question Do you have trouble paying your heating and electricity bill?: I choose not to answer this question Do you have trouble taking care of your child, family member or friend?: I choose not to answer this question Do you have trouble with day-to-day activities such as bathing, preparing meals, shopping, managing finances, etc.?: I choose not to answer this question Are you currently unemployed and looking for a job?: I choose not to answer this question Are you interested in more education?: I choose not to answer this question Please select the resources that you would like help with: None Currently or been in a relationship where the following occur: I choose not to answer THRIVE Score: 0 BRITTNEY-7 AMB Questionnaire BRITTNEY-7 Date BRITTNEY - 7 assessed: 12/18/24 Worrying too much about different things: 0 = Not at all Trouble relaxin = Not at all Being so restless that it is hard to sit still: 0 = Not at all Becoming easily annoyed or irritable: 0 = Not at all Feeling afraid as if something awful might happen: 0 = Not at all Source: Developed by Drs. Jonathan Sandoval, Dodie Tejada, Alberto Elizondo and colleagues, with an educational mark from [employer]. Physical exam (Primary Care) Vital Signs: Last Vital Signs Temp 96.9 F 03/19/25 09:06 Pulse 65 03/19/25 09:06 BP 130/72 03/19/25 09:06 Pulse Ox 97 03/19/25 09:06 Oxygen Delivery Method Room Air 03/19/25 09:06 BMI result Body Mass Index 31.6 Tobacco/Smoking Status: Tobacco use Status Tobacco use date assessed 03/19/25 03/19/25 09:11 Patient Tobacco Use Status Never used Tobacco 03/19/25 09:11 e-Cigarette/Vaping Use Never Used 03/19/25 09:11 Thrive Assessment: Date of Thrive Assessment Date Thrive assessed 12/18/24 03/19/25 09:11 Currently or been in a relationship where the following occur: I choose not to answer Results AMB Hemoglobin A1c AMB Hemoglobin A1c 5.5 % Last Edit by GIANA Dailey on 03/19/25 09:18 Results Reviewed Results Reviewed: Laboratory Last Values Hgb A1c (Clinic) 5.5 % (4.0-6.0) 03/19/25 09:05 Coding Level of Care Code Est Pt Level 4 (84558) Complex EM visit Add On G2211 Diagnoses Rheumatoid arthritis of multiple sites with negative rheumatoid factor M06.09 Rheumatoid arthritis location: multiple sites Assessment & Plan Assessment & Plan (1) Rheumatoid arthritis with negative rheumatoid factor: Comment: Subcutaneous methotrexate: start date unknown? Around 2018 or 2019-January 2022 Plaquenil: Start date unknown ? Around 2018 or 2019 Oral methotrexate- January 2022 to 12/2024. Due to Code(s): M06.00 - Rheumatoid arthritis without rheumatoid factor, unspecified site Category: Medical Qualifiers: Rheumatoid arthritis location: multiple sites Qualified Code(s): M06.09 - Rheumatoid arthritis without rheumatoid factor, multiple sites Plan: History of Present Illness - The patient is a 74-year-old female presenting with bilateral shoulder pain and balance issues. - Bilateral shoulder pain: The patient reports significant pain in both shoulders, with one shoulder hurting more than the other. - The pain is associated with tingling sensations in the arm, possibly related to nerve issues. - Balance issues: The patient reports instability and requires the use of a walker for mobility. - She has experienced falls at home due to her balance problems. - Anemia: Previously diagnosed anemia has resolved, with hemoglobin levels returning to 11 g/dL. - Referrals: The patient requires referrals to the speech and hearing department and physical therapy. Social History - The patient uses a walker for mobility due to balance issues and instability. - She has experienced falls at home, indicating a need for mobility aids. Review of Systems - Musculoskeletal: Reports bilateral shoulder pain and tingling in the arm. - Neurological: Reports balance issues and instability, leading to falls. Physical Exam General: Cooperative and healthy appearing Nutritional Appearance: Well nourished Orientation/consciousness: Patient oriented x3 Limitations: No limitations Head: Normal to inspection General: Appearance normal, both eyes and all related structures Neck: Normal visual inspection Chest: Normal palpation of entire chest wall Respiratory: N ormal respiratory effort Neurology: Patient oriented x3, reports tingling in the arm, balance issues, and uses a walker for stability. Results - Labs: Hemoglobin levels improved to 11 g/dL, indicating resolution of anemia. Plan - Referral to physical therapy for bilateral shoulder pain and balance issues. - Referral to the speech and hearing department for further evaluation. - Continue monitoring hemoglobin levels to ensure anemia remains resolved. Discussion Notes I discussed with the patient the need for physical therapy to address her shoulder pain and balance issues. We also talked about the importance of following up with the speech and hearing department for further evaluation. I advised her to continue monitoring her hemoglobin levels to ensure her anemia remains resolved. Patient Instructions - Follow up with physical therapy for shoulder pain and balance issues. - Contact the speech and hearing department for an appointment. - Monitor hemoglobin levels regularly to ensure anemia remains resolved. Orders: Orders PT Evaluation and Treatment Today M06.09 - Rheumatoid arthritis without rheumatoid factor, multiple sites AMB Hemoglobin A1c Today E11.9 - Type 2 diabetes 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s, Z79.4 - half-way (current) use of insulin Medications: Changed From famotidine 40 mg PO TID 270 tabs 0RF K21.9 - Gastro-esophageal reflux disease without esophagitis, K22.10 - Ulcer of esophagus without bleeding To famotidine 40 mg PO Q12H 180 tabs 0RF 90 days K21.9 - Gastro-esophageal reflux disease without esophagitis, K22.10 - Ulcer of esophagus without bleeding From loperamide 2 mg PO TID 180 caps 0RF for diarrhea K58.0 - Irritable bowel syndrome with diarrhea To loperamide 2 mg PO DAILY@0630 180 caps 0RF for diarrhea K58.0 - Irritable bowel syndrome with diarrhea Resumed lisinopril-hydrochlorothiazide 10-12.5 mg 1 tab PO DAILY 90 days 90 tabs 0RF
[2025-03-19 09:06] VITALS: BP 130/72; PULSE 65; TEMP 36.1; O2SAT 97; BMI 31.6
--- OUTSIDE RECORDS SUMMARY | 2025-03-19 09:29 | XMS_ITS | Clinical Summary ---
Author Organization [facility] Address [address] [place] [phone] Phone Care Team Providers Care Digital Content Producer Name Role Phone Mariella Chance MD Unavailable [phone] Angel Pablo MD Primary Care Provid [...] (four) hours as needed. Active nebulizer accessories [facility] as directed. 11/08/19 14 [...] 10:41 AM EDT): Continue close follow-up with family coach as scheduled. Aim @ BS= 90-120 mg % Assessment & Plan (07/14/2019 8:25 AM EST): Continue close follow-up with family coach as scheduled. Aim @ BS= 90-120 mg % Assessment & Plan (04/18/2019 10:48 AM EDT): Continue close follow-up with family coach as scheduled. Assessment & Plan (02/04/2019 7:57 PM EDT): Continue close follow-up with family coach as scheduled. Assessment & Plan (08/08/2018 4:43 [...] headboard elevated at 45 angle for nighttime. 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 Daily sun protection. Follow-up with frozen yogurt maker as scheduled at least once yearly. Assessment & Plan (05/18/2020 10:43 PM EST): Continue exactly as prescribed. No change in the dose. Daily sun protection. Follow-up with frozen yogurt maker as scheduled at least once yearly. Assessment & Plan (02/12/2020 10:39 AM EDT): Continue exactly as prescribed. No change in the dose. Daily sun protection. Follow-up with frozen yogurt maker as scheduled at least once yearly. Assessment & Plan (12/01/2019 3:17 PM EDT): Continue exactly as prescribed. No change in the dose. Daily sun protection. Follow-up with frozen yogurt maker as scheduled at least once yearly. Assessment & Plan (07/14/2019 8:22 AM EST): Continue exactly as prescribed. No change in the dose. Daily sun protection. Follow-up with frozen yogurt maker as scheduled at least once yearly. Assessment & Plan (04/18/2019 10:48 AM EDT): Continue exactly as prescribed. No change in the dose. Daily sun protection. Follow-up with frozen yogurt maker as scheduled at least once yearly. Assessment & Plan (02/04/2019 8:04 PM EDT): Continue exactly as prescribed. No change in the dose. Daily sun protection. Follow-up with frozen yogurt maker as scheduled at least once yearly. Assessment [...] Comments Other Unspecified Diabetes, heart disease, stroke, CAD/RI. Sister with COPD (former smoker). 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5 mg/dL [facility] GLUCOSE 133(H) 70 - 99 mg/dL [facility] ALBUMIN 4.3 3.9 - 4.8 g/dL [facility] TOTAL PROTEIN 7.1 6.5 - 8.0 g/dL [facility] CALCIUM 9.1 8.4 - 10.3 mg/dL [facility] ALKALINE PHOSPHATASE 79 39 - 117 U/L [facility] TOTAL BILIRUBIN 0.4 0.0 - 1.2 mg/dL [facility] AST 35 0 - 37 U/L [facility] ALT 16 0 - 40 U/L [facility] GLOBULIN 2.8 1 - 4.8 g/dL [facility] EGFR 57(L) >59 mL/min/1.7 3m2 [facility] Comment:Estimated glomerular filtration rate calculated using the CKD-EPI equation. ANION GAP 16 10 - 20 mmol/L [facility] Blood 08/16/2020 10:4 0 AM EST 08/16/2020 10:46 AM EST us Kaya Marquez MD LAB BLOOD ORDERABLES Fin al Result Performing Organization Address City/State/[facility] Co de Phone Number [facility] [address] [place] [address] * BD DXA AXIAL (SPINE) WITH HIP (09/06/2018 10:51 AM EDT) Anatomical Region Laterality Modality Bone Density Bone Density 09/06/2018 3:18 PM EDT Impressions 09/06/2018 3:21 PM EDT Normal bone mineral density with statistically significant increase in bone mineral density in the hips since 2001. POS - [id number] Narrative 09/06/2018 3:21 PM EDT COMPARISON: 12/02/2001 [...] the right hip was calculated at 1.071 gm/ox1hccv a T-score of 1.1 falling within the WHO classification of normal.Z-score of 2.4. 3.3% increase in bone mineral density since the priorexam which is statistically significant at the 95% confidence level. Total bone mineral density in the left hip was calculated at 1.095 gm/te2bshg a T-score of 1.36 falling within the WHO classification of normal.Z-score of 2.6. 3.4% increase in bone mineral density since the priorexam which is statistically significant at the 95% confidence level. IMPRESSION: Normal bone mineral density with statistically significant increase inbone mineral density in the hips since 2001. POS - [id number] us Kaya Marquez MD IMG BD BONE DENSITY DEXA Final Result * POCT Hemoglobin A1c (08/08/2018 3:34 PM EST) Hemoglobin A1c 5.3 4.2 - 5.8 % [facility] Other 08/08/2018 3:34 PM EST us Mariella Chance MD POINT OF CARE TEST ORDERABLES F inal Result [facility] [address] [place] [address] from Last 3 Months or Most Recently Relevant to Health Maintenance Insurance MEDICARE PART A & B [place] [employer] MEDEX SUPPLEMENT MEDICARE PART A & B [employer] CROSS MEDEX SUPPLEMENT MEDICARE PART A & B [employer] MEDEX SUPPLEMENT MEDICARE PART A & B [employer] MEDEX SUPPLEMENT MEDICARE PART A & B [employer] MEDEX SUPPLEMENT MEDICARE PART A & B [place] [employer] MEDEX SUPPLEMENT MEDICARE PART A & B [employer] CROSS MEDEX SUPPLEMENT MEDICARE PART A & B [employer] MEDEX SUPPLEMENT MEDICARE PART A & B [employer] MEDEX SUPPLEMENT Care Teams Digital Content Producer Relationship Specialty Start Date End Date Angel Pablo MD [address] [place] [id number] PCP - General Internal Medicine 02/12/20 Mariella Chance MD [address] [facility] [place] [address] [email or web address] Historical LMR Provider 04/09/17 Additional Source Comments The information contained in this document represents components of the legal health record. It is not the complete legal health record.[facility]
--- OUTSIDE RECORDS SUMMARY | 2025-03-19 09:29 | XMS_ITS | Patient Health Record ---
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 Name Role Phone Angel Pablo Primary Care Provider [phone] Antonio Giles Unavailable [phone] Allergies Allergen (clinical drug ingredient) Drug/Non Drug [...] Problem Acquired hammer toe of right foot (0275780584380093 ) Other hammer toe(s) (acquired), right foot (M20.41) Active confirmed Response to treatment, Improvemen t Problem Acquired hammer toe of left foot (7457055830912458 ) Other hammer toe(s) (acquired), left foot (M20.42) Active confirmed Response to treatment, Improvemen t Problem Polyneuropathy due to type 2 diabetes mellitus (379632654) Type 2 diabetes mellitus with diabetic polyneuropathy (E11.42) Active confirmed Vital Signs Blood pressure diastolic 65 mm Hg 12/23/2024 Height 7tc48sl in 12/23/2024 Blood pressure systolic 110 mm Hg 12/23/2024 Weight 146 lbs 12/23/2024 BMI 30.51 kg/m2 12/23/2024 Procedures Procedure Date Ordered Date Performed Result Body Sit e 21742-VIFVDSX SKIN/TISSUE 03/25/2024 N/A 77070- Debride <25 sq cm 04/15/2024 N/A 70802-JCTUYOY NAIL, 6 OR MORE 06/10/2024 N/A 15735-SJZS SKIN LESIONS, OVER 4 06/10/2024 N/A 12760-BCAKLUP NAIL, 6 OR MORE 09/16/2024 N/A 88636-RZMB SKIN LESIONS, OVER 4 09/16/2024 N/A 51661-UFOUAJM NAIL, 6 OR MORE 12/23/2024 N/A 79356-JPGG SKIN LESIONS, OVER 4 12/23/2024 N/A Encounters Encounter Location Date Provider Diagnosis [address] [address] 03/25/2024 Antonio Tisha Abscess of right nichole t L02.611 and Neuropathic ulcer of right foot with fat layer exposed L97.[address] [address] 04/15/2024 Antonio Tisha Neuropathic ulcer of right foot, limited to breakdown of skin L97.[address] [address] 05/16/2024 Antonio Tisha Neuropathic ulcer of right foot, limited to breakdown of skin L97.[address] [address] 06/10/2024 Antoniorafia Meadier Type 2 diabetes mellitus with diabetic polyneuropathy E11.42 ; Tinea unguium B35.1 ; Other hammer toe(s) (acquired), right foot M20.41 and Other hammer toe(s) (acquired), left foot M20.[address] [address] 09/16/2024 Antonio Tisha Type 2 diabetes mellitus with diabetic polyneuropathy E11.42 ; Tinea unguium B35.1 and Xerosis of skin L85.[address] [address] 12/23/2024 Antonio Tisha Type 2 diabetes mellitus with diabetic polyneuropathy E11.42 ; Tinea unguium B35.1 and Xerosis of skin L85.3 [facility] [address] [address] 09/26/2024 Antonio Giles [facility] [address] [address] 2024 Antoniorafia Giles Xerosis of skin L85. [...] X ray : Foot, right 3V 03/03/2022 42045-LDTICPJ NAIL, 6 OR MORE 03/11/2024 08645-WKXBAOH NAIL, 6 OR MORE 09/11/2023 55013-XFTTTDC NAIL, 6 OR MORE 12/11/2023 47020-JIVMCKX NAIL, 6 OR MORE 09/08/2022 59973-XYLQELP NAIL, 6 OR MORE 12/08/2022 68303-BCURWYN NAIL, 6 OR MORE 03/09/2023 07994-FUFUDEK NAIL, 6 OR MORE 06/08/2023 00595-QFXJWHX NAIL, 6 OR MORE 06/02/2022 70965-VXHNRMD NAIL, 6 OR MORE 03/03/2022 50205-BIDYPGY NAIL, 6 OR MORE 08/30/2021 80428-QNWEUEI NAIL, 6 OR MORE 12/02/2021 40066-MFZTCGC NAIL, 6 OR MORE 06/08/2020 44852-QGAGNNH NAIL, 6 OR MORE 09/03/2020 11696-RISVJSS NAIL, 6 OR MORE 12/10/2020 25010-POYOABB NAIL, 6 OR MORE 03/22/2021 50130-EBSFCNS NAIL, 6 OR MORE 06/10/2024 37861-MIVMKWI NAIL, 6 OR MORE 09/16/2024 31859-IKLMSOD NAIL, 6 OR MORE 12/23/2024 64894-Fzkguslm Plate 12/11/2023 73091- Debride <25 sq cm 04/15/2024 17993-QNFSROQ SKIN/TISSUE 03/25/2024 00922 I&D ABSCESS- SIMPLE,SINGLE 024 15744-VGMV SKIN LESIONS, OVER 4 06/10/20 24 46519-RBHI SKIN LESIONS, OVER 4 12/24/19 25 97021-HIVL SKIN LESIONS, OVER 4 09/17/19 25 11376-MWIB SKIN LESIONS, OVER 4 03/11/20 24 90177-NOSL SKIN LESIONS, OVER 4 12/11/19 24 63851-ZAKA SKIN LESIONS, OVER 4 09/11/19 24 57219-QZME SKIN LESIONS, OVER 4 06/08/20 23 38840-AXTF SKIN LESIONS, OVER 4 03/09/20 23 97849-IPJE SKIN LESIONS, OVER 4 12/09/19 98037-VRZX SKIN LESIONS, OVER 4 09/09/19 63795-GOKC SKIN LESIONS, OVER 4 03/22/20 57686-QWGY SKIN LESIONS, OVER 4 12/11/19 92129-RRRV SKIN LESIONS, OVER 4 09/04/19 33794-RLUK SKIN LESIONS, OVER 4 06/08/20 01331-QUOP SKIN LESIONS, OVER 4 12/03/19 91914-PGEG SKIN LESIONS, OVER 4 08/31/19 00583-OSKT SKIN LESIONS, OVER 4 03/03/20 23491-UBVK SKIN LESIONS, OVER 4 06/02/20 Next Appt Details Provider Name:Antonio Giles , 03/27/2025 09:30:00 AM, [address] [place] [address], [phone], Insurance Providers Payer Name Payer Address Payer Phone Subscriber Number Group Number Insured Name Patient Relationship to Insured Coverage Start Date Coverage End Date Medicare National [employer] [address] [facility] [address] [id number] Kriss Jackson Self - patient is the insured [facility] [address] [place] [address] [id number] Kriss Jackson Self - patient is the [...]
== END 2025-03-19 09:53 | disposition home or self-care (01) ==
LOC: HO.HMCH 08:52
PROVIDERS: PCP Internal Medicine; Visit Provider Internal Medicine
DX: E11.9 Type 2 diabetes 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s (principal); Z79.4 Long term (current) use of insulin; M06.09 Rheumatoid arthritis without rheumatoid factor, multiple sites

== ENCOUNTER → 2025-03-19 08:51 | Outpatient (BNVA) | payer MEDICARE, SELFPAY | PROVIDERS: PCP Internal Medicine; Visit Provider Internal Medicine | DX: M06.09 Rheumatoid arthritis without rheumatoid factor, multiple sites (principal); E11.9 Type 2 diabetes 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s; Z79.4 Long term (current) use of insulin | CPT/HCPCS: 83036; 99212 ==

== ENCOUNTER 2025-03-26 11:05 | Day surgery (SDC) | payer MEDICARE, SELFPAY ==
--- OUTSIDE RECORDS SUMMARY | 2025-03-17 12:41 | XMS_ITS | Clinical Summary ---
Author Organization [facility] Address [address] [facility] [address] [place] [address] Phone Care Team Providers Care Contact Finger Assembler Name Role Phone Mariella Chance MD Unavailable [phone] Angel Pablo MD Primary Care Provid [...] (four) hours as needed. Active nebulizer accessories [facility] as directed. 11/08/19 14 Active cholecalciferol, vitamin [...] 10:41 AM EDT): Continue close follow-up with preparer as scheduled. Aim @ BS= 90-120 mg % Assessment & Plan (07/14/2019 8:25 AM EST): Continue close follow-up with preparer as scheduled. Aim @ BS= 90-120 mg % Assessment & Plan (04/18/2019 10:48 AM EDT): Continue close follow-up with preparer as scheduled. Assessment & Plan (02/04/2019 7:57 PM EDT): Continue close follow-up with preparer as scheduled. Assessment & Plan (08/08/2018 4:43 [...] headboard elevated at 45 angle for nighttime. 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 Daily sun protection. Follow-up with office manager executive assistant as scheduled at least once yearly. Assessment & Plan (05/18/2020 10:43 PM EST): Continue exactly as prescribed. No change in the dose. Daily sun protection. Follow-up with office manager executive assistant as scheduled at least once yearly. Assessment & Plan (02/12/2020 10:39 AM EDT): Continue exactly as prescribed. No change in the dose. Daily sun protection. Follow-up with office manager executive assistant as scheduled at least once yearly. Assessment & Plan (12/01/2019 3:17 PM EDT): Continue exactly as prescribed. No change in the dose. Daily sun protection. Follow-up with office manager executive assistant as scheduled at least once yearly. Assessment & Plan (07/14/2019 8:22 AM EST): Continue exactly as prescribed. No change in the dose. Daily sun protection. Follow-up with office manager executive assistant as scheduled at least once yearly. Assessment & Plan (04/18/2019 10:48 AM EDT): Continue exactly as prescribed. No change in the dose. Daily sun protection. Follow-up with office manager executive assistant as scheduled at least once yearly. Assessment & Plan (02/04/2019 8:04 PM EDT): Continue exactly as prescribed. No change in the dose. Daily sun protection. Follow-up with office manager executive assistant as scheduled at least once yearly. Assessment [...] Comments Other Unspecified Diabetes, heart disease, stroke, CAD/MD. Sister with COPD (former smoker). 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 POCT HEMOGLOBIN A1C Routine 08/08/2018 3 :34 PM EST Type 2 diabetes mellitus with diabetic polyneuropathy, without long-term current use of insulin from Last 3 Months or Most Recently Relevant to Health Maintenance Results * (ABNORMAL) Comprehensive metabolic panel (08/16/2020 10:40 AM EST) SODIUM 140 133 - 146 mmol/L [facility] POTASSIUM 4.3 3.3 - 5.1 mmol/L [facility] CHLORIDE 103 96 - 108 mmol/L [facility] CO2 25 21 - 35 mmol/L [facility] BUN 30(H) 6 - 19 mg/dL [facility] CREATININE 1.00 0.5 - 1.5 mg/dL [facility] GLUCOSE 133(H) 70 - 99 mg/dL [facility] ALBUMIN 4.3 3.9 - 4.8 g/dL [facility] TOTAL PROTEIN 7.1 6.5 - 8.0 g/dL [facility] CALCIUM 9.1 8.4 - 10.3 mg/dL [facility] ALKALINE PHOSPHATASE 79 39 - 117 U/L [facility] TOTAL BILIRUBIN 0.4 0.0 - 1.2 mg/dL [facility] AST 35 0 - 37 U/L [facility] ALT 16 0 - 40 U/L [facility] GLOBULIN 2.8 1 - 4.8 g/dL [facility] EGFR 57(L) >59 mL/min/1.7 3m2 [facility] Comment:Estimated glomerular filtration rate calculated using the CKD-EPI equation. ANION GAP 16 10 - 20 mmol/L [facility] Blood 08/16/2020 10:4 0 AM EST 08/16/2020 10:46 AM EST us Kaya Marquez MD LAB BLOOD ORDERABLES Fin al Result Performing Organization Address City/State/[facility] Co de Phone Number [facility] [address] [place] [address] * BD DXA AXIAL (SPINE) WITH HIP (09/06/2018 10:51 AM EDT) Anatomical Region Laterality Modality Bone Density Bone Density 09/06/2018 3:18 PM EDT Impressions 09/06/2018 3:21 PM EDT Normal bone mineral density with statistically significant increase in bone mineral density in the hips since 2001. POS - [id number] Narrative 09/06/2018 3:21 PM EDT COMPARISON: 12/02/2001 [...] the right hip was calculated at 1.071 gm/iq4vtlx a T-score of 1.1 falling within the WHO classification of normal.Z-score of 2.4. 3.3% increase in bone mineral density since the priorexam which is statistically significant at the 95% confidence level. Total bone mineral density in the left hip was calculated at 1.095 gm/ix9hupa a T-score of 1.36 falling within the WHO classification of normal.Z-score of 2.6. 3.4% increase in bone mineral density since the priorexam which is statistically significant at the 95% confidence level. IMPRESSION: Normal bone mineral density with statistically significant increase inbone mineral density in the hips since 2001. POS - [id number] us Kaya Marquez MD IMG BD BONE DENSITY DEXA Final Result * POCT Hemoglobin A1c (08/08/2018 3:34 PM EST) Hemoglobin A1c 5.3 4.2 - 5.8 % [facility] Other 08/08/2018 3:34 PM EST us Mariella Chance MD POINT OF CARE TEST ORDERABLES F inal Result [facility] [address] [place] [address] from Last 3 Months or Most Recently Relevant to Health Maintenance Insurance MEDICARE PART A & B [place] [employer]OSS MEDEX SUPPLEMENT MEDICARE PART A & B [employer] CROSS MEDEX SUPPLEMENT MEDICARE PART A & B [employer] MEDEX SUPPLEMENT MEDICARE PART A & B [employer] MEDEX SUPPLEMENT MEDICARE PART A & B [employer] MEDEX SUPPLEMENT MEDICARE PART A & B [place] [employer] MEDEX SUPPLEMENT MEDICARE PART A & B [employer] CROSS MEDEX SUPPLEMENT MEDICARE PART A & B [employer] MEDEX SUPPLEMENT MEDICARE PART A & B [employer] MEDEX SUPPLEMENT Care Teams Contact Finger Assembler Relationship Specialty Start Date End Date Angel Pablo MD [address] [place] [id number] PCP - General Internal Medicine 02/12/20 Mariella Chance MD [address] [facility], 1st [place] [address] [email or web address] Historical LMR Provider 04/09/17 Additional Source Comments The information contained in this document represents components of the legal health record. It is not the complete legal health record.[facility]
--- OUTSIDE RECORDS SUMMARY | 2025-03-17 12:41 | XMS_ITS | Patient Health Record ---
[facility] Address [address] [place] [address] Care Team Providers Care Stave Block Roller Name Role Phone Angel Pablo Primary Care Provider [phone] Antonio Giles Unavailable [phone] Allergies Allergen (clinical drug ingredient) Drug/Non Drug [...] Problem Acquired hammer toe of right foot (1415268658638187 ) Other hammer toe(s) (acquired), right foot (M20.41) Active confirmed Response to treatment, Improvemen t Problem Acquired hammer toe of left foot (6380862414256740 ) Other hammer toe(s) (acquired), left foot (M20.42) Active confirmed Response to treatment, Improvemen t Problem Polyneuropathy due to type 2 diabetes mellitus (636890250) Type 2 diabetes mellitus with diabetic polyneuropathy (E11.42) Active confirmed Vital Signs Blood pressure diastolic 65 mm Hg 12/23/2024 Height [id number] in 12/23/2024 Blood pressure systolic 110 mm Hg 12/23/2024 Weight 146 lbs 12/23/2024 BMI 30.51 kg/m2 12/23/2024 Procedures Procedure Date Ordered Date Performed Result Body Sit e 24536-UMKFGOD SKIN/TISSUE 03/25/2024 N/A 71594- Debride <25 sq cm 04/15/2024 N/A 72361-WCEOAOR NAIL, 6 OR MORE 06/10/2024 N/A 62955-QTHE SKIN LESIONS, OVER 4 06/10/2024 N/A 91943-NGYYISI NAIL, 6 OR MORE 09/16/2024 N/A 53596-SFET SKIN LESIONS, OVER 4 09/16/2024 N/A 47623-EYQVRXN NAIL, 6 OR MORE 12/23/2024 N/A 53728-RHQA SKIN LESIONS, OVER 4 12/23/2024 N/A Encounters Encounter Location Date Provider Diagnosis [address] [address] 03/25/2024 Antonio Tihsa Abscess of right nichole t L02.611 and Neuropathic ulcer of right foot with fat layer exposed L97.[address] [address] 04/15/2024 Antonio Tisha Neuropathic ulcer of right foot, limited to breakdown of skin L97.[address] [address] 05/16/2024 Antonio Tisha Neuropathic ulcer of right foot, limited to breakdown of skin L97.[address] [address] 06/10/2024 Antoniorafia Meadier Type 2 diabetes mellitus with diabetic polyneuropathy E11.42 ; Tinea unguium B35.1 ; Other hammer toe(s) (acquired), right foot M20.41 and Other hammer toe(s) (acquired), left foot M20.[address] [address] 09/16/2024 Antonio Tisha Type 2 diabetes mellitus with diabetic polyneuropathy E11.42 ; Tinea unguium B35.1 and Xerosis of skin L85.[address] [address] 12/23/2024 Antonio Tisha Type 2 diabetes mellitus with diabetic polyneuropathy E11.42 ; Tinea unguium B35.1 and Xerosis of skin L85.3 [facility] [address] [address] 09/26/2024 Antonio Giles [facility] [address] [address] 2024 Antoniorafia Giles Xerosis of skin L85. 3 Assessments [...] 09/16/2024 Xerosis of skin (ICD-10 - L85.3) 03/25/2024 Other Plan Of Treatment Pending Test Test Name Order Date X ray : Foot, left 3V 03/03/2022 X ray : Foot, right 3V 03/03/2022 56322-PTHYVXZ NAIL, 6 OR MORE 03/11/2024 81374-FLTBYZG NAIL, 6 OR MORE 09/11/2023 28609-BJZPEHI NAIL, 6 OR MORE 12/11/2023 74926-RQTPDBQ NAIL, 6 OR MORE 09/08/2022 96048-MZRLXDU NAIL, 6 OR MORE 12/08/2022 53118-FUYMOMY NAIL, 6 OR MORE 03/09/2023 53440-DKTISNT NAIL, 6 OR MORE 06/08/2023 26746-ZNSNVOD NAIL, 6 OR MORE 06/02/2022 45650-EMSEPTU NAIL, 6 OR MORE 03/03/2022 50204-NLKBSZS NAIL, 6 OR MORE 08/30/2021 52445-MNPTYQQ NAIL, 6 OR MORE 12/02/2021 31378-RXBTWAB NAIL, 6 OR MORE 06/08/2020 00060-YYBWKXW NAIL, 6 OR MORE 09/03/2020 49440-PKBGARQ NAIL, 6 OR MORE 12/10/2020 74121-QMOWPDJ NAIL, 6 OR MORE 03/22/2021 26849-CZRRNLE NAIL, 6 OR MORE 06/10/2024 80450-ZQRYGLL NAIL, 6 OR MORE 09/16/2024 75646-JHVKBPZ NAIL, 6 OR MORE 12/23/2024 93826-Rmnhjubm Plate 12/11/2023 07619- Debride <25 sq cm 04/15/2024 08116-OSRUVKQ SKIN/TISSUE 03/25/2024 46631 I&D ABSCESS- SIMPLE,SINGLE 024 72372-NTQI SKIN LESIONS, OVER 4 06/10/20 24 62679-EXTI SKIN LESIONS, OVER 4 12/24/19 25 53705-PULU SKIN LESIONS, OVER 4 09/17/19 25 21292-PCYJ SKIN LESIONS, OVER 4 03/11/20 24 46746-FHFL SKIN LESIONS, OVER 4 12/11/19 24 76876-DTOF SKIN LESIONS, OVER 4 09/11/19 24 54880-AYQS SKIN LESIONS, OVER 4 06/08/20 23 18382-MSVK SKIN LESIONS, OVER 4 03/09/20 23 45971-OLZJ SKIN LESIONS, OVER 4 12/09/19 97065-FAVS SKIN LESIONS, OVER 4 09/09/19 83506-VZNV SKIN LESIONS, OVER 4 03/22/20 83891-ZJZZ SKIN LESIONS, OVER 4 12/11/19 42502-DRDD SKIN LESIONS, OVER 4 09/04/19 38820-LNIP SKIN LESIONS, OVER 4 06/08/20 59985-GMJI SKIN LESIONS, OVER 4 12/03/19 85230-JQIS SKIN LESIONS, OVER 4 08/31/19 86734-SHHO SKIN LESIONS, OVER 4 03/03/20 69656-TENT SKIN LESIONS, OVER 4 06/02/20 Next Appt Details Provider Name:Antonio Giles , 03/27/2025 09:30:00 AM, [address] [place] [address], [phone], Insurance Providers Payer Name Payer Address Payer Phone Subscriber Number Group Number Insured Name Patient Relationship to Insured Coverage Start Date Coverage End Date Medicare National [employer] [address] [facility] [address] [id number] Kriss Jackson Self - [facility] is the [facility] [address] [place] [address] [phone] [id number] Kriss Jackson Self - patient is the [...]
[2025-03-26] VITALS (9 sets, daily range): BP systolic 96–146; BP diastolic 39–88; PULSE 60; RESP 12–16; TEMP 36.3–37.1; O2SAT 95–100; BMI 31.3
--- NOTE | ~2025-03-26 | CT_ITS ---
History: Anemia. Question of myelodysplastic syndrome. PROCEDURES: 1. Limited preprocedure CT of the pelvis. Permanent images saved in PACS. 2. 11 g bone marrow core biopsy of the left posterior iliac spine 3. 11 g bone marrow aspirate of the left posterior iliac spine CLINICIANS: Chava Jensen NP Preprocedural imaging reviewed with Balwinder Friend MD MEDICATIONS: -Versed, Fentanyl , and lidocaine 1% SQ -Antibiotics: None -For additional details, please see nursing flowsheet. COMPLICATIONS: None ESTIMATED BLOOD LOSS: < 5 ml CONTRAST: None SPECIMENS: 11 g core placed in formalin. Bone marrow aspirate placed in EDTA and sodium heparin tubes MODERATE SEDATION TIME: 26 min PROCEDURE NOTE: The procedure, risks, benefits, and alternatives were carefully explained to the patient and written informed consent was obtained. The patient was placed prone on the CT table. A timeout was performed. A limited CT of the pelvis was performed to localize posterior iliac spine and choose appropriate needle entry and trajectory. The patient was prepped and draped in usual sterile fashion. The skin, subcutaneous tissues, and periosteum were anesthetized with lidocaine. Under CT guidance, an 11-gauge bone marrow biopsy needle was advanced into the posterior iliac spine, with the tip positioned slightly cephalad. A bone marrow aspirate was performed. The specimen was placed in the provided EDTA and sodium heparin tubes. Next, the 11-gauge bone marrow biopsy needle was then advanced into the posterior iliac spine, under CT guidance, with the tip positioned slightly caudal. An 11-gauge core biopsy of the bone marrow was performed, needle removed and the specimen was placed in formalin. A dry dressing was applied and secured with Tegaderm. There were no immediate complications. The patient was stable after the procedure and was transferred to the post anesthesia care unit. The procedure was done under moderate sedation with a dedicated nurse for monitoring of vital signs. CT/CT biopsy asp core bone marrow Impression: CT-guided bone marrow biopsy and aspirate This procedure was performed by Chava Jensen NP and supervised by Balwinder Friend MD. Electronically signed by: Balwinder Friend MD 04/02/2025 05:52 PM EDT Workstation: [id number]
[2025-03-26 12:39] LABS: Glucose, Whole Blood 83 mg/dL (60-115)
[2025-03-26 13:29] LABS: Baso%MD 1.1 %; Eos%MD 1.9 %; Hematocrit 35.1 % (37.0-47.0); Hemoglobin 12.0 g/dl (12.0-16.0); IG%MD 0.2 %; Lymph%MD 27.7 %; Mean Corpuscular HGB Conc 34.2 g/dl (31.0-35.0); Mean Corpuscular Hemoglobin 31.2 pg (27.0-33.0); Mean Corpuscular Volume 91.2 fL (80.0-98.0); Mono%MD 8.6 %; NRBC Abs Auto 0.000 X10*3/uL (0.0-0.012); NRBC Pct Auto 0.0 /100WBC (0.0-0.2); Neut%MD 60.5 %; Platelet Count 192 X10*3/uL (160-400); Red Blood Count 3.85 X10*6/uL (4.20-5.50); White Blood Count 8.2 X10*3/uL (4.8-10.8)
[2025-03-26 13:32] LABS: Anion Gap 13 (12-20); Blood Urea Nitrogen 27 mg/dL (9-16); Calcium 9.4 mg/dL (8.4-10.2); Carbon Dioxide 27 mmol/L (22-29); Chloride 106 mmol/L (96-108); Creatinine Clr Calc Pharmacy 37.3; Estimated Glomerular Filt Rate 50; Potassium 4.5 mmol/L (3.3-5.1); Sodium 141 mmol/L (135-145)
[2025-03-26 13:35] LABS: INTERNATIONAL NORM RATIO 1.1 (0.9-1.1); Prothrombin Time 12.3 SEC (10.9-12.4)
[2025-03-26 14:04] LABS: Atypical Lymph Absolute Manual 0.1 x10*3/uL; Atypical Lymphs Percent Manual 1 % (0-6); Basophils Abs Manual 0.1 X10*3/uL (0.0-0.2); Basophils Percent Manual 1 % (0-2); Eosinophils Absolute Manual 0.2 X10*3/uL (0.0-0.4); Eosinophils Percent Manual 2 % (0-4); Lymphocytes Absolute Manual 2.1 X10*3/uL (1.2-4.9); Lymphocytes Percent Manual 26 % (20-40); Monocytes Absolute Manual 0.7 X10*3/uL (0.1-1.2); Monocytes Percent Manual 8 % (2-11); Neutrophils Percent Manual 62 % (45-73)
[2025-03-26 14:06] LABS: Band Neutrophils Percent 0 % (3-5); Large Platelet PRESENT; Neutrophils Absolute Manual 5.1 X10*3/uL (2.0-8.3); RBC Morphology NORMAL
== END 2025-03-26 15:33 | disposition home or self-care (01) ==
PROVIDERS: Nurse Practitioner Family; Radiology Diagnostic Radiology; PCP Internal Medicine; Visit Provider Internal Medicine
DX: D64.9 Anemia, unspecified (principal); R53.82 Chronic fatigue, unspecified; Z79.899 Other long term (current) drug therapy; J45.991 Cough variant asthma; M06.9 Rheumatoid arthritis, unspecified; Z79.631 Long term (current) use of antimetabolite agent; E11.9 Type 2 diabetes 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s; Z86.73 Personal history of transient ischemic attack (TIA), and cerebral infarction without residual deficits
CPT/HCPCS: 36415; 38222; 77012; 80048; 82947; 85007; 85027; 85610; 88184; 88185; 88237; 88264; 88291; 88305; 88311; 88313; 99152; J0690; J2003; J2250; J3010

== ENCOUNTER → 2025-03-26 13:40 | Outpatient (BNV) | payer MEDICARE, SELFPAY | PROVIDERS: PCP Internal Medicine | DX: D64.9 Anemia, unspecified (principal) | CPT/HCPCS: 38222; 77012 ==

== ENCOUNTER 2025-04-14 14:06 | Outpatient (RCR) | payer MEDICARE, SELFPAY ==
[2025-04-14 14:11] VITALS: BP 138/83; PULSE 66; RESP 16; TEMP 36.7; O2SAT 96
== END 2025-04-14 14:33 | disposition home or self-care (01) ==
LOC: HO.INF 14:06
PROVIDERS: Visit Provider Student in an Organized Health Care Education/Training Program
DX: M81.0 Age-related osteoporosis without current pathological fracture (principal)
CPT/HCPCS: 96374; J3489

== ENCOUNTER 2025-05-06 13:53 | Outpatient (RCR) | payer MEDICARE, SELFPAY ==
[2025-04-16 10:06] VITALS: BP 118/56; PULSE 85; O2SAT 95
--- NOTE | 2025-05-06 16:55 | MHC.PT.DC ---
[facility] [place] [facility] [place] [facility] [place] [facility] [address] Julien Ovalle [address] [phone] F: [phone] F: [phone] F: [phone] F: [phone] Physical Therapy Discharge Report Diagnosis: Arthritis of shoulder. Date of Surgery: Date of Evaluation: 04/16/25 Date of Discharge: 05/06/25 Treatments to Date: 5 Cancellations to Date: No Shows to Date: Discharge Status: Achieved Goals Improved Function Independent with HEP Discharge Summary: Pt persists with pain though improved as well as her function; she has met her goals and is I with a simple program for home and in agreement with DC at this time. Electronically signed by: Rajesh Hernandes PT. Please sign and return to therapist. Thank you for your referral.
== END 2025-05-06 16:56 | disposition home or self-care (01) ==
LOC: HO.PT 13:53
PROVIDERS: PCP Internal Medicine; Visit Provider Internal Medicine
DX: M06.09 Rheumatoid arthritis without rheumatoid factor, multiple sites (principal)
CPT/HCPCS: 97110; 97161

== ENCOUNTER → 2025-05-14 12:38 | Outpatient (BNV) | payer MEDICARE, SELFPAY | PROVIDERS: PCP Internal Medicine | DX: Z45.018 Encounter for adjustment and management of other part of cardiac pacemaker (principal) | CPT/HCPCS: 93294 ==

== ENCOUNTER 2025-05-19 09:52 | Outpatient (AMB) | payer MEDICARE, SELFPAY ==
--- NOTE | 2025-05-19 09:55 | MHC.OFFVIS ---
Vital Signs 05/19/25 09:57 Height 4 ft 10 in Weight 147 lb 11.355 oz BMI 30.9 BP 119/58 L Blood Pressure Location Lt brachial Position Sitting Respiration 16 Pulse 60 Pulse Source Pulse Oximeter Pulse Oximetry (%) 100 Oxygen Delivery Method Room Air Intake Visit Reasons: Gerd F/U Allergies duloxetine Allergy (Severe, Verified 03/19/25 09:06) LOOPY codeine (CODEINE) Allergy (Intermediate, Verified 03/19/25 09:06) GI UPSET doxycycline (DOXYCYCLINE) Allergy (Intermediate, Verified 03/19/25 09:06) RASH Sulfa (Sulfonamide Antibiotics) (SULFA (SULFONAMIDE ANTIBIOTICS)) Allergy (Intermediate, Verified 03/19/25 09:06) Hives HPI HPI Gerd F/U: Details: Assessment & Plan (1) Post-cholecystectomy syndrome: Code(s): K91.5 - Postcholecystectomy syndrome Category: Medical (2) GERD (gastroesophageal reflux disease): Code(s): K21.9 - Gastro-esophageal reflux disease without esophagitis Category: Medical Qualifiers: Esophagitis presence: without esophagitis Qualified Code(s): K21.9 - Gastro-esophageal reflux disease without esophagitis Plan She continues to struggle with thrush, Her ENT Dr. Herrera is retiring soon and she had trouble getting the difucan and the dental paste taht he used to rx - she then got the diflucan from her PCP Dr. Derrick Au offer to help her with this as well. She also had to have her foot ulcer attended to, but it healed well and now she has special shoes, this has postponed PT that she was to have for general deconditioning. She continues on her famotidine. ROV 6 mos. 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 Edema of lower extremity present on examination continuous churn buttermaker use of drug Irritable bowel syndrome with diarrhea Rheumatoid arthritis Pacemaker TIA (transient ischemic attack) Dysphagia Spinal stenosis COVID COVID-19 Laryngopharyngeal reflux (LPR) Asthma Rotator cuff tendinitis Post-menopausal Polyarthralgia Dyspnea on exertion Allergic rhinitis Bronchitis Asthma exacerbation Cough variant asthma DJD (degenerative joint disease) Decreased hearing GERD (gastroesophageal reflux disease) Type 2 diabetes 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s Surgical History S/P placement of cardiac pacemaker History of esophagogastroduodenoscopy (EGD) History of colonoscopy (~09/05/21) Hx of cholecystectomy Hx of tonsillectomy Hx of hysterectomy Family History Father CVD (cardiovascular disease) Diabetes Mother Diabetes Sister No problems noted. Other Substance use disorder Social History Household Members: Family and None Housing: House Are you a primary animal care provider to a significant other at home: No Do you presently have visiting nurse or other home services: No Alcohol intake: former Comment: WITHIN LAST MONTH Patient Tobacco Use Status: Never used Tobacco e-Cigarette/Vaping Use: Never Used Second Hand Smoke Exposure: No Advance Directives Date on File: 08/04/22 service: No Current occupational status: retired Cognitive needs: Yes (walker) Hearing needs: Yes (hearing aide) Vision needs: Yes (glasses) Review of Systems Const Denies fatigue, Denies fever(s), Reports frequent falls, Denies night sweats, Denies poor appetite and Denies weight loss Eyes Details: glasses Reports requires corrective lenses ENT Reports Normal hearing present, Denies dental pain, Denies dysphagia, Denies hearing loss, Denies mouth pain, Denies odynophagia, Denies throat swelling, Denies tongue swelling and Reports other (Dentition adequate) Card Reports no additional complaints Resp Reports no additional complaints GI Details: Denies abdominal pain, Denies melena, Denies bloating, Denies hematochezia, Denies constipation, Denies GI cramping, Denies dysphagia, Denies excessive flatus, Denies early satiety, Reports heartburn, Reports diarrhea, Denies nausea, Denies odynophagia, Denies vomiting and Denies hematemesis Reports prolapse symptoms and Reports urinary urgency (And frequency all day long) Musc Reports abnormal gait and Reports myalgias Skin/Breast Denies pruritus, Denies lesions, Denies rash and Denies jaundice Neuro Reports Normal hearing present, Denies Abnormal speech present, Reports abnormal gait, Reports frequent falls and Reports lack of coordination Endo Denies fatigue Aller/Immun Denies throat swelling and Denies tongue swelling Physical Exam Vital Signs: Last Vital Signs Pulse 60 05/19/25 09:57 Resp 16 05/19/25 09:57 BP 119/58 L 05/19/25 09:57 Pulse Ox 100 05/19/25 09:57 Oxygen Delivery Method Room Air 05/19/25 09:57 BMI result Body Mass Index 30.9 Const General: cooperative, no acute distress, well developed and well groomed Nutritional Appearance: well nourished and obese Orientation/consciousness: oriented to person, oriented to place and oriented to time Limitations: No language barrier and ambulation with walker HEENT Head: Yes normocephalic and Yes atraumatic Eyes General: appearance normal, both eyes and all related structures Pupils: Equal, round and reactive pupils present Neck Neck: Yes normal visual inspection and Yes no lymphadenopathy Thyroid: Thyroid normal Resp Effort & Inspection: normal respiratory effort and able to speak in complete sentences Auscultation: clear to auscultation bilaterally Cardio Rate: regular rate Rhythm: regular rhythm Heart sounds: Normal, physiologic split S2 sound present Peripheral pulses: radial pulses present and posterior tibial pulses present GI Inspection: No distended, Yes Abdominal panniculus present and Yes obesity Palpation (GI): Soft to palpation, nontender, no guarding, not rigid and No hepatosplenomegaly present Percussion: Yes normal to percussion Auscultation: normal bowel sounds Rectal Exam - Female: deferred Skin General skin exam: no rashes or lesions noted, turgor normal, skin not dry, no jaundice, No spider nevi and no striae Rashes: no rashes Nails: normal Neuro General: oriented to person, oriented to place and oriented to time Cranial nerves: Yes Equal, round and reactive pupils present and Yes Normal hearing present Speech: No Abnormal speech present Extrem General: Yes normal to inspection, No clubbing, No cyanosis and No edema Psych Appearance: grossly normal and well kempt Mental Status: mental status grossly normal Speech and movement: Normal speech and movement present Affect: normal affect Attitude: cooperative Thought process: Normal thought process present and not confabulating Thought content: Normal thought content present Insight: Good insight present (Psych) Judgement: Good judgement present (Psych) Assessment & Plan Assessment & Plan (1) Post-cholecystectomy syndrome: Code(s): K91.5 - Postcholecystectomy syndrome Category: Medical (2) GERD (gastroesophageal reflux disease): Code(s): K21.9 - Gastro-esophageal reflux disease without esophagitis Category: Medical Qualifiers: Esophagitis presence: without esophagitis Qualified Code(s): K21.9 - Gastro-esophageal reflux disease without esophagitis (3) Overactive bladder: Code(s): N32.81 - Overactive bladder Category: Medical (4) Tubular adenoma of colon: Comment: 2021 scope repeat 5 years Code(s): D12.6 - Benign neoplasm of colon, unspecified Category: Medical Plan Subjective She is here for follow-up on constipation and GERD and is usually maintained on lactulose and omeprazole. Objective Assessment & Plan GERD: History of reflux previously managed with famotidine. Reviewed PCP changes; prior entry for three times daily was incorrect. Patient currently not taking it regularly and reports once daily would be adequate. - Adjust famotidine to once daily as needed for symptom control. - No safety concerns identified with this regimen today. Bowel control/diarrhea episodes: Uses loperamide as needed around ?accidents,? typically 1 tablet daily and up to 2?3 tablets on bad days; aware of max daily dose of 4. - Prescribe loperamide with a twice-daily regimen to ensure adequate supply while allowing patient-directed use; reinforce maximum of 4 tablets per day. - Continue to use preemptively before anticipated episodes when possible. Urinary incontinence/overactive bladder: Persistent 24/7 urgency and incontinence despite oxybutynin ER once daily. Reviewed dosing range (ER max 30 mg/day); room to escalate. - Increase oxybutynin ER to twice daily (morning and evening) to improve bladder control. - Glove Brusher on potential adverse effects (dry mouth, dizziness/drowsiness); discontinue if significant side effects occur. - Trial for up to 8 weeks to assess benefit; earlier contact if adverse effects or no benefit. - Follow-up: Patient will schedule a follow-up; may cancel if doing well. Call with any issues. Fall risk and gait instability: Recent fall attributed to poor balance. Physical therapy reviewed; patient has extensive home exercise program. PT recommended two-wheel walker for improved safety versus four-wheel model. - Continue use of two-wheel walker for stability; add bag/accessories for function as needed. - Continue home exercise program. Colorectal cancer screening: Colonoscopy performed in 2021. Prior note referenced a 10-year recall; given history of prior polyp elsewhere, will target earlier interval. - Plan repeat colonoscopy in 2026 unless symptoms or new findings warrant earlier evaluation. Medications: Changed From famotidine 40 mg PO Q12H 90 days 180 tabs 0RF K21.9 - Gastro-esophageal reflux disease without esophagitis, K22.10 - Ulcer of esophagus without bleeding To famotidine 40 mg PO DAILY 90 tabs 1RF 90 days K21.9 - Gastro-esophageal reflux disease without esophagitis, K22.10 - Ulcer of esophagus without bleeding From loperamide 2 mg PO DAILY@0630 180 caps 0RF for diarrhea K58.0 - Irritable bowel syndrome with diarrhea To loperamide 2 mg PO BID 180 caps 1RF for diarrhea K58.0 - Irritable bowel syndrome with diarrhea From oxybutynin chloride ER 10 mg PO DAILY 90 tabs 0RF N32.81 - Overactive bladder To oxybutynin chloride ER 10 mg PO BID 180 tabs 1RF N32.81 - Overactive bladder Coding Level of Care Code Est Pt Level 3 (14475) Diagnoses Post-cholecystectomy syndrome K91.5 Gastroesophageal reflux disease without esophagitis K21.9 Esophagitis presence: without esophagitis Overactive bladder N32.81 Tubular adenoma of colon D12.6
[2025-05-19 09:57] VITALS: BP 119/58; PULSE 60; RESP 16; O2SAT 100; BMI 30.9
--- OUTSIDE RECORDS SUMMARY | 2025-05-19 11:44 | XMS_ITS | Patient Health Record ---
[facility] Address [address] [place] [address] Care Team Providers Care Office Support Name Role Phone Angel Pablo Primary Care Provider Antonio Giles Unavailable [phone] Allergies Allergen (clinical drug ingredient) Drug/Non Drug [...] (HH) 5.4 HEMOGLOBIN A1C (GLYCOHEMOGLO BIN) Reviewed date:03/27/2025 09:43:42 AM Interpretation: Performing Lab: Notes/Report: HEMOGLOBIN A1C [...] Once a day; Duration: 30 day(s) Not-Taking Atorvastatin Calcium 20 MG 1 tablet Orally Once a day; Duration: 30 day(s) Active lamoTRIgine 25 MG 1 tablet Orally; Duration: 30 day(s) 2 in AM 2 in PM Not-Taking Folic Acid 1 MG 1 tablet Orally Once a day; Duration: 30 day(s) Active Lantus 100 UNIT/ML as directed Subcutaneous Not-Taking Furosemide Active ProAir HFA 108 (90 Base) MCG/ACT 2 puff as needed Inhalation every 6 hours PRN Not-Taking Vitamin D Not-Taking Fluticasone Propionate 50 MCG/ACT 1 spray in each nostril Nasally Once a day; Duration: 30 day(s) Not-Taking Betamethasone Dipropionate 0.05 % 1 application Externally Once a day Active Famotidine 40 MG 1 tablet at bedtime as needed Orally Once a day Active Glucose tablets Active Hydroxychloroquine Sulfate 200 MG as directed Orally Active oxyBUTYnin Chloride ER 10 MG 1 tablet Orally Once a day Active Metoprolol Succinate ER 50 MG 1 tablet Orally Once a day Active Gabapentin 600 MG 1 tablet Orally Once a day; Duration: 30 day(s) 1 morning 2 night Active Sucralfate Not-Takin g HumaLOG 100 UNIT/ML as directed Subcutaneous 20 units Active Clopidogrel Bisulfate 75 MG 1 tablet Orally Once a day; Duration: 30 day(s) Not-Taking Omeprazole 40 MG 1 capsule 30 minutes before morning meal Orally Once a day; Duration: 30 day(s) Not-Taking Zoledronic Acid Acti ve Lisinopril-hydroCHLOROth iazide 10-12.5 MG 1 tablet Orally Once a day Active Loperamide HCl 2 MG 1 capsule as needed Orally Four times a day Active metroNIDAZOLE 1 % 1 application Externally Once a day Active Vitamin D3 50 MCG (2000 UT) 1 capsule Orally Once a day Active Ammonium Lactate 12 % 1 application Externally to affected areas of dry skin to feet except for between the toes Twice a day; Duration: 30 days Active ZyrTEC 10 MG 1 tablet Orally Once a day Active Ketoconazole 2 % 1 application Externally Once a day Not-Taking Lidocaine 5 % 1 patch remove after 12 hours Externally Once a day Active Humira (2 Syringe) 40 MG/0.4ML INJECT 40 MG UNDER THE SKIN EVERY 2 WEEKS Subcutaneous; Duration: 28 Days 1 needle every 2 week Active oxyBUTYnin Not-Takin g lamoTRIgine 25 MG Oral; Duration: 90 Days Active Extra Depth Orthopedic Shoes (1 Pair) with Customized Heat Molded Multidensity Innersoles (3 Pair) as directed Dx: NIDDM/Polyneuropath y (E11.42), Hammertoe Foot Deformity (M20.41,M20.42), Preulcerative Skin Lesion(s) (L85.1 Active Lantus SoloStar 100 UNIT/ML Subcutaneous; Duration: 29 Days Active Fluticasone Furoate 50 MCG/ACT 1 puff Inhalation Once a day Active SUMAtriptan Succinate 50 MG 1 tablet as needed, may take second dose at least 2 hours after first dose up to 4 tablets per day as needed Orally Once a day Not-Taking Acetaminophen ER 500mg Act jeannette Lisinopril 10 MG 1 tablet Orally Once a day; Duration: 30 day(s) Not-Taking Generlac 10 GM/15ML 15 mL as needed Orally Once a day Active Methotrexate Sodium 2.5 MG as directed Orally 8 tabs once a week Not-Taking Albuterol Not-Taking Ferrous Sulfate ER N ot-Taking Immunizations Vaccine Route Administration Date Status Comme nts Influenza Unknown 04/11/2022 Administered Influenza Unknown 03/25/2024 Administered Influenza Unknown 02/23/2025 Administered COVID-19 Naiku/MedClimate Unknown 07/14/2021 Administered 1st 09/29/2020 Booster 07/14/2021 [...] Problem Acquired hammer toe of right foot ([id number] ) Other hammer toe(s) (acquired), right foot (M20.41) Active confirmed Response to treatment, Improvemen t Problem Acquired hammer toe of left foot (0256355262364642 ) Other hammer toe(s) (acquired), left foot (M20.42) Active confirmed Response to treatment, Improvemen t Problem Polyneuropathy due to type 2 diabetes mellitus (584869822) Type 2 diabetes mellitus with diabetic polyneuropathy (E11.42) Active confirmed Vital Signs Blood pressure diastolic 65 mm Hg 03/27/2025 Height 4ft 10in in 03/27/2025 Blood pressure systolic 110 mm Hg 03/27/2025 Weight 145 lbs 03/27/2025 BMI 30.3 kg/m2 03/27/2025 Procedures Procedure Date Ordered Date Performed Result Body Sit e 44152-SCEITJT NAIL, 6 OR MORE 06/10/2024 N/A 78776-SHGJ SKIN LESIONS, OVER 4 06/10/2024 N/A 02180-DQCHSOQ NAIL, 6 OR MORE 09/16/2024 N/A 44916-MAYX SKIN LESIONS, OVER 4 09/16/2024 N/A 07269-CWILXQW NAIL, 6 OR MORE 12/23/2024 N/A 80234-TOOG SKIN LESIONS, OVER 4 12/23/2024 N/A 29532-SVTVPJX NAIL, 6 OR MORE 03/27/2025 N/A 56659-ZPYK SKIN LESIONS, OVER 4 03/27/2025 N/A Encounters Encounter Location Date Provider Diagnosis [address] [address] 06/10/2024 Antonio Giles Type 2 diabetes mellitus with diabetic polyneuropathy E11.42 ; Tinea unguium B35.1 ; Other hammer toe(s) (acquired), right foot M20.41 and Other hammer toe(s) (acquired), left foot M20.[address] [address] 09/16/2024 Antonio Giles Type 2 diabetes mellitus with diabetic polyneuropathy E11.42 ; Tinea unguium B35.1 and Xerosis of skin L85.[address] [address] 12/23/2024 Antonio Giles Type 2 diabetes mellitus with diabetic polyneuropathy E11.42 ; Tinea unguium B35.1 and Xerosis of skin L85.[address] [address] 03/27/2025 Antonio Giles Type 2 diabetes mellitus with diabetic polyneuropathy E11.42 ; Tinea unguium B35.1 ; Other hammer toe(s) (acquired), right foot M20.41 and Other hammer toe(s) (acquired), left foot M20.42 [facility] [address] [address] 09/26/2024 Antonio Giles [facility] [address] [address] 2024 Antonio Giles Xerosis of skin L85. [...] 2024 Xerosis of skin (ICD-10 - L85.3) 03/27/2025 Type 2 diabetes mellitus with diabetic polyneuropathy (ICD-10 - E11.42) 03/27/2025 Tinea unguium (ICD-10 - B35.1) 12/23/2024 Xerosis of skin (ICD-10 - L85.3) 06/10/2024 Other hammer toe(s) (acquired), right foot (ICD-10 - M20.41) Response to treatment,Impro vement 06/10/2024 Other hammer toe(s) (acquired), left foot (ICD-10 - M20.42) Response to treatment,Impro vement 09/16/2024 Xerosis of skin (ICD-10 - L85.3) 03/27/2025 Other hammer toe(s) (acquired), right foot (ICD-10 - M20.41) Patient Educated with: DIABETIC FOOT CARE INSTRUCTIONS. pdf (DIABETIC FOOT CARE INSTRUCTIONS. pdf) 03/27/2025 Other hammer toe(s) (acquired), left foot (ICD-10 - M20.42) Plan Of Treatment Pending Test Test Name Order Date X ray : Foot, left 3V 03/03/2022 X ray : Foot, right 3V 03/03/2022 16937-RXMVIGA NAIL, 6 OR MORE 03/11/2024 75281-LKQFALP NAIL, 6 OR MORE 09/11/2023 04941-HOKFQJY NAIL, 6 OR MORE 12/11/2023 28545-VPWIUXT NAIL, 6 OR MORE 09/08/2022 35121-FJKJPNR NAIL, 6 OR MORE 12/08/2022 47983-MRBBGCE NAIL, 6 OR MORE 03/09/2023 10372-OATJXFC NAIL, 6 OR MORE 06/08/2023 25700-JYOZJJS NAIL, 6 OR MORE 06/02/2022 95634-HVJWHDP NAIL, 6 OR MORE 03/03/2022 94272-QMEIOFH NAIL, 6 OR MORE 08/30/2021 49863-HKCCXEC NAIL, 6 OR MORE 12/02/2021 14625-DZSUODX NAIL, 6 OR MORE 06/08/2020 38277-DMPZHDW NAIL, 6 OR MORE 09/03/2020 02552-VVJZCXC NAIL, 6 OR MORE 12/10/2020 45996-YJQNYNV NAIL, 6 OR MORE 03/22/2021 66511-LXVLCMV NAIL, 6 OR MORE 06/10/2024 92069-MQASTYR NAIL, 6 OR MORE 09/16/2024 11089-THLIFPR NAIL, 6 OR MORE 12/23/2024 09372-VCPYPUC NAIL, 6 OR MORE 03/27/2025 41017-Yvrxjvze Plate 12/11/2023 67574- Debride <25 sq cm 04/15/2024 98513-UGAALYH SKIN/TISSUE 03/25/2024 37985 I&D ABSCESS- SIMPLE,SINGLE 024 88360-ROXY SKIN LESIONS, OVER 4 06/10/20 24 27601-LAEQ SKIN LESIONS, OVER 4 12/24/19 25 76047-KWAU SKIN LESIONS, OVER 4 09/17/19 25 02285-RRCQ SKIN LESIONS, OVER 4 03/27/20 25 45166-YVIS SKIN LESIONS, OVER 4 03/11/20 24 10157-HADJ SKIN LESIONS, OVER 4 12/11/19 24 33183-QYSE SKIN LESIONS, OVER 4 09/11/19 24 56897-AXUZ SKIN LESIONS, OVER 4 06/08/20 19274-QPFH SKIN LESIONS, OVER 4 03/09/20 95930-YLPY SKIN LESIONS, OVER 4 12/09/19 57770-HYBV SKIN LESIONS, OVER 4 09/09/19 40170-WFSX SKIN LESIONS, OVER 4 03/22/20 88086-DGGA SKIN LESIONS, OVER 4 12/11/19 67344-WZQW SKIN LESIONS, OVER 4 09/04/19 42944-ANWV SKIN LESIONS, OVER 4 06/08/20 78064-QJJR SKIN LESIONS, OVER 4 12/03/19 79714-DMIE SKIN LESIONS, OVER 4 08/31/19 25323-RLEM SKIN LESIONS, OVER 4 03/03/20 96629-JYHX SKIN LESIONS, OVER 4 06/02/20 Next Appt Details Provider Name:Antonio Giles , 07/21/2025 11:00:00 AM, [address] [place] [address], [phone], Insurance Providers Payer Name Payer Address Payer Phone Subscriber Number Group Number Insured Name Patient Relationship to Insured Coverage Start Date Coverage End Date Medicare National [facility] [address] [facility] [place] [address] [phone] [id number] Kriss Jackson Self - patient is the insured [employer] [address] [place] [address] [id number] Kriss Jackson Self - patient is the insured Medical (General) History Medical History History ICD Code Anemia Arthritis OA , RA asthma Back,Hip,and Knee pain Cataracts Gall bladder problems High blood pressure Numbness chronic sinusitis Reflux Chicken pox type II diabetes Pacemaker Infusion Surgical History Surgery Date(Month/Year) tonsillectomy hysterectomy gall bladder 1993 bunionectomy colonoscopy 09/05/21 endoscopy 09/05/21 cardiac pacemeker 08/07/22 back surgery- bone marrow 03/26/2025
--- OUTSIDE RECORDS SUMMARY | 2025-05-19 11:44 | XMS_ITS | Clinical Summary ---
Author Organization [facility] Address [address] [place] [id number] Phone Care Team Providers Care Side Splitter Name Role Phone Mariella Chance MD Unavailable [phone] Angel Pablo MD Primary Care Provid [...] (four) hours as needed. Active nebulizer accessories [facility] [place]. 11/08/19 14 Active cholecalciferol, vitamin [...] 10:41 AM EDT): Continue close follow-up with residential therapist as scheduled. Aim @ BS= 90-120 mg % Assessment & Plan (07/14/2019 8:25 AM EST): Continue close follow-up with residential therapist as scheduled. Aim @ BS= 90-120 mg % Assessment & Plan (04/18/2019 10:48 AM EDT): Continue close follow-up with residential therapist as scheduled. Assessment & Plan (02/04/2019 7:57 PM EDT): Continue close follow-up with residential therapist as scheduled. Assessment & Plan (08/08/2018 4:43 [...] headboard elevated at 45 angle for nighttime. 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 Daily sun protection. Follow-up with stonework tracer as scheduled at least once yearly. Assessment & Plan (05/18/2020 10:43 PM EST): Continue exactly as prescribed. No change in the dose. Daily sun protection. Follow-up with stonework tracer as scheduled at least once yearly. Assessment & Plan (02/12/2020 10:39 AM EDT): Continue exactly as prescribed. No change in the dose. Daily sun protection. Follow-up with stonework tracer as scheduled at least once yearly. Assessment & Plan (12/01/2019 3:17 PM EDT): Continue exactly as prescribed. No change in the dose. Daily sun protection. Follow-up with stonework tracer as scheduled at least once yearly. Assessment & Plan (07/14/2019 8:22 AM EST): Continue exactly as prescribed. No change in the dose. Daily sun protection. Follow-up with stonework tracer as scheduled at least once yearly. Assessment & Plan (04/18/2019 10:48 AM EDT): Continue exactly as prescribed. No change in the dose. Daily sun protection. Follow-up with stonework tracer as scheduled at least once yearly. Assessment & Plan (02/04/2019 8:04 PM EDT): Continue exactly as prescribed. No change in the dose. Daily sun protection. Follow-up with stonework tracer as scheduled at least once yearly. Assessment [...] Comments Other Unspecified Diabetes, heart disease, stroke, CAD/VA. Sister with COPD (former smoker). Sister with [...] Comments BLOOD PRESSURE 1950 DEPRESSION SCREENING 1962 ZOSTER VACCINES (1 of 2) 1969 MAMMOGRAM 1990 COLOGUARD 12/25/1995 COLONOSCOPY 12/25/1995 COLORECTAL CANCER SCREENING 12/25/1995 FIT TEST 12/25/1995 FOBT 12/25/1995 SIGMOIDOSCOPY 12/25/1995 VIRTUAL COLONOSCOPY 12/25/1995 RSV VACCINE (1 - Risk 50-74 years 1-dose series) 2000 DIABETIC EYE EXAM 10/11/2017 HEMOGLOBIN A1C 02/05/2019 08/08/2018, 03/22/2018 COVID-19 VACCINE (2 - Leon risk series) 10/27/2020 09/29/2020 Adult Td,Tdap Booster 05/17/2021 05/17/2011 CREATININE LEVEL 08/16/2021 08/16/2020, , 02/12/2020, Additional history exists POTASSIUM LEVEL 08/16/2021 08/16/2020, 04/25, 02/12/2020, Additional history exists INFLUENZA VACCINE (#1) 2025 , 03/13/2018, 04/13/2017, Additional history exists HEPATITIS C SCREENING Completed 06/12/2018, 018 OSTEOPOROSIS SCREENING INITIAL (ONE-TIME) Completed 09/06/2018 PNEUMOCOCCAL [...] Date/Time Associated Diagnosis Comments COMPREHENSIVE METABOLIC PANEL (CMP) Routine 08/16/2020 10:40 AM EST Rheumatoid arthritis of multiple sites with negative rheumatoid factor On methotrexate therapy Long-term use of Plaquenil BD DXA AXIAL (SPINE) WITH HIP Routine 09/06/2018 10:51 AM EDT Rheumatoid arthritis of multiple sites with negative rheumatoid factor 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 POTASSIUM 4.3 3.3 - 5.1 mmol/L [facility] CHLORIDE 103 96 - 108 mmol/L [facility] CO2 25 21 - 35 mmol/L [facility] BUN 30(H) 6 - 19 mg/dL [facility] CREATININE 1.00 0.5 - 1.5 mg/dL [facility] GLUCOSE 133(H) 70 - 99 mg/dL [facility] ALBUMIN 4.3 3.9 - 4.8 g/dL [facility] TOTAL PROTEIN 7.1 6.5 - 8.0 g/dL [facility] CALCIUM 9.1 8.4 - 10.3 mg/dL [facility] ALKALINE PHOSPHATASE 79 39 - 117 U/L [facility] TOTAL BILIRUBIN 0.4 0.0 - 1.2 mg/dL [facility] AST 35 0 - 37 U/L [facility] ALT 16 0 - 40 U/L [facility] GLOBULIN 2.8 1 - 4.8 g/dL [facility] EGFR 57(L) >59 mL/min/1.7 3m2 [facility] Comment:Estimated glomerular filtration rate calculated using the CKD-EPI equation. ANION GAP 16 10 - 20 mmol/L [facility] Blood 08/16/2020 10:4 0 AM EST 08/16/2020 10:46 AM EST us Kaya Marquez MD LAB BLOOD BKR ORDERABLES Final Result Performing Organization Address City/State/[facility] Co de Phone Number [facility] [address] [place] [address] * BD DXA AXIAL (SPINE) WITH HIP (09/06/2018 10:51 AM EDT) Anatomical Region Laterality Modality Bone Density Bone Density 09/06/2018 3:18 PM EDT Impressions 09/06/2018 3:21 PM EDT Normal bone mineral density with statistically significant increase in bone mineral density in the hips since 2001. POS - [id number] Narrative 09/06/2018 3:21 PM EDT COMPARISON: 12/02/2001 [...] the right hip was calculated at 1.071 gm/uc8rxda a T-score of 1.1 falling within the WHO classification of normal.Z-score of 2.4. 3.3% increase in bone mineral density since the priorexam which is statistically significant at the 95% confidence level. Total bone mineral density in the left hip was calculated at 1.095 gm/eo8yxlo a T-score of 1.36 falling within the WHO classification of normal.Z-score of 2.6. 3.4% increase in bone mineral density since the priorexam which is statistically significant at the 95% confidence level. IMPRESSION: Normal bone mineral density with statistically significant increase inbone mineral density in the hips since 2001. POS - [id number] Kaya Marquez MD IMG BD BONE DENSITY DEXA Final Result * POCT Hemoglobin A1c (08/08/2018 3:34 PM EST) Hemoglobin A1c 5.3 4.2 - 5.8 % [facility] Other 08/08/2018 3:34 PM EST Mariella Chance MD LAB POCT ENTER/EDIT ORDERABLES Final Result Performing Organization Address City/[facility]/ZIP Co de Phone Number [address] [phone] * Hepatitis B surface antigen (06/12/2018 12:33 PM EST) HBV SURFACE ANTIGEN Negative Negative [facility] Blood 06/12/2018 12:3 3 PM EST 06/12/2018 12:50 PM EST Kaya Marquez MD LAB BLOOD BKR ORDERABLES Final Result Performing Organization Address City/[facility] Co de Phone Number [address] [address] from Last 3 Months or Most Recently Relevant to Health Maintenance Insurance MEDICARE PART A & B [employer] SUPPLEMENT MEDICARE PART A & B [employer] MEDEX SUPPLEMENT MEDICARE PART A & B [employer] MEDEX SUPPLEMENT MEDICARE PART A & B [employer] MEDEX SUPPLEMENT MEDICARE PART A & B [employer] MEDEX SUPPLEMENT MEDICARE PART A & B [employer] MEDEX SUPPLEMENT MEDICARE PART A & B [employer] MEDEX SUPPLEMENT MEDICARE PART A & B [employer] MED[employer] SUPPLEMENT MED[place] PART A [place] [id number] [employer] SUPPLEMENT Care Teams Side Splitter Relationship Specialty Start Date End Date Angel Pablo MD [address] [place] [id number] PCP - General Internal Medicine 02/12/20 Mariella Chance MD [address]st [place] [address] [email or web address] Historical LMR Provider 04/09/17 Additional Source Comments The information contained in this document represents components of the legal health record. It is not the complete legal health record.[facility]
== END 2025-05-19 10:55 | disposition home or self-care (01) ==
LOC: HO.HGI 09:53
PROVIDERS: PCP Internal Medicine; Visit Provider Nurse Practitioner
DX: K91.5 Postcholecystectomy syndrome (principal); K21.9 Gastro-esophageal reflux disease without esophagitis; N32.81 Overactive bladder; D12.6 Benign neoplasm of colon, unspecified
CPT/HCPCS: 99213

== ENCOUNTER → 2025-05-19 09:52 | Outpatient (BNVA) | payer MEDICARE, SELFPAY | PROVIDERS: PCP Internal Medicine; Visit Provider Nurse Practitioner | DX: K91.5 Postcholecystectomy syndrome (principal); K21.9 Gastro-esophageal reflux disease without esophagitis; D12.6 Benign neoplasm of colon, unspecified; N32.81 Overactive bladder | CPT/HCPCS: 99212 ==

== ENCOUNTER 2025-06-02 11:02 | Outpatient (AMB) | payer MEDICARE, SELFPAY ==
--- NOTE | 2025-06-02 11:05 | MHC.OFFVIS ---
Intake Visit Reasons: follow up 6m cps Allergies duloxetine Allergy (Severe, Verified 03/19/25 09:06) LOOPY codeine (CODEINE) Allergy (Intermediate, Verified 03/19/25 09:06) GI UPSET doxycycline (DOXYCYCLINE) Allergy (Intermediate, Verified 03/19/25 09:06) RASH Sulfa (Sulfonamide Antibiotics) (SULFA (SULFONAMIDE ANTIBIOTICS)) Allergy (Intermediate, Verified 03/19/25 09:06) Hives HPI Comments Details: 74 y/o woman with RA, HTN, cerebral microvascular changes of brain, peripheral neuropathy, and complex partial seizure disorder (seen [place] [facility] with an episode when she woke up and she could not speak, it was like she was under water, and she did not have control on her limbs. She had no control on her body and she could not get to the phone. She went back to sleep, woke up a few hours later and was fine again). She is presenting with a chief complaint of constant tingling in her right arm, extending down to her fingers, for the last three months. She describes the sensation as if the arm is asleep and also reports associated weakness in the right arm. The patient also reports occasional neck pain. She has a history of pain in both shoulders, for which she attended physical therapy, and was told it may be related to arthritis. Her current medications include gabapentin 300 mg three times daily and lamotrigine taken twice daily. 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 Irritable bowel syndrome with diarrhea Rheumatoid arthritis Pacemaker TIA (transient ischemic attack) Dysphagia Spinal stenosis COVID COVID-19 Laryngopharyngeal reflux (LPR) Asthma Rotator cuff tendinitis Post-menopausal Polyarthralgia Dyspnea on exertion Allergic rhinitis Bronchitis Asthma exacerbation Cough variant asthma DJD (degenerative joint disease) Decreased hearing GERD (gastroesophageal reflux disease) Type 2 diabetes 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s Surgical History S/P placement of cardiac pacemaker History of esophagogastroduodenoscopy (EGD) History of colonoscopy (~09/05/21) Hx of cholecystectomy Hx of tonsillectomy Hx of hysterectomy Family History Father CVD (cardiovascular disease) Diabetes Mother Diabetes Sister No problems noted. Other Substance use disorder Social History Household Members: Family and None Housing: House Are you a primary skin care specialist to a significant other at home: No Do you presently have visiting nurse or other home services: No Alcohol intake: former Comment: WITHIN LAST MONTH Patient Tobacco Use Status: Never used Tobacco e-Cigarette/Vaping Use: Never Used Second Hand Smoke Exposure: No Advance Directives Date on File: 08/04/22 service: No Current occupational status: retired Cognitive needs: Yes (walker) Hearing needs: Yes (hearing aide) Vision needs: Yes (glasses) Review of Systems Narrative - Neurological: Reports constant tingling in the right arm down to the fingers, which she describes as the arm feeling asleep. This has been present for approximately 3 months. She also reports associated right arm weakness. - Musculoskeletal: Reports occasional neck pain. She also reports a history of pain in both shoulders, which her physical therapist attributed to arthritis. Physical Exam Exam Exam: Physical Exam Mental Status Exam Neuro Other: Mental Status: Alert and oriented to person, place, and time. Normal attention. Normal spontaneous speech, fluency, and comprehension. Cranial Nerves: CN II: Visual [place] full to confrontation, visual acuity intact. CN III, IV, : Pupils equal, round, reactive to light and accommodation. Extraocular movements are normal. CN V: Facial sensation is normal. CN VII: Facial movements symmetrical. CN VIII: Hearing intact to bedside conversation is normal. CN IX, X: Palate elevates symmetrically. CN XI: Shoulder shrug and head turn symmetrical. CN XII: Tongue midline without atrophy or fasciculations. Extrapyramidal: Full facial expressions and blinking. No rigidity. Movements are appropriate with no tremor or abnormality. Speech: Normal; no dysarthria or tremor. Assessment & Plan Assessment & Plan (1) Complex partial seizure disorder: Comment: MRI brain WO at [facility] in October 2023: Mod to severe WM changes, no acute lesions, ?MVD EEG at off in Aug 2022: ok EMG/NCS LEs at off in Aug 2022: mod axonal mot neuropathy CTA brain and neck at [facility] in Jul 2022: OK CT brain WO at [facility] in Jul 2022: mod MVD NCV/EMG LE 01/02/18 Moderately severe motor axonal polyneuropathy. EEG at [facility] in October 2017: WNL CT brain WO at [facility] in October 2017: mod MVD MRI brain WO at [facility] in October 2017: mod MVD Echocardiogram at [facility] in October: OK EKG at [facility] in October 2017: NSR Code(s): G40.209 - Localization-related (focal) (partial) symptomatic epilepsy and epileptic syndromes with complex partial seizures, not intractable, without status epilepticus Category: Medical (2) Tremor: Code(s): R25.1 - Tremor, unspecified Category: Medical (3) Fibromyalgia: Code(s): M79.7 - Fibromyalgia Category: Medical (4) Cervical radiculitis: Code(s): M54.12 - Radiculopathy, cervical region Category: Medical Plan Plan Patient was informed and verbally consented to the use of an ambient scribe for clinic note documentation during this visit. 1. Right Arm Paresthesia And Weakness The patient's presentation of right arm tingling, weakness, and occasional neck pain warrants further investigation to rule out cervical radiculopathy or peripheral neuropathy. An EMG and nerve conduction study will be scheduled to evaluate the nerves in her right arm and neck. Further management will be determined based on the results of the study. 2. Medication Management The patient requested a refill for her gabapentin. [facility] She has about a one-month supply of lamotrigine remaining and does not need a refill at this time. Discussion Notes I have discussed with the patient her symptoms of right arm tingling and weakness. I explained that we need to investigate these symptoms further and recommended an EMG and nerve conduction study to check the nerves in her right arm and neck. I informed her that the test involves a small needle. I advised that my escrow secretary will contact her to schedule the appointment, as it will not be done today, and we will base further decisions on the results. I also addressed her medication request and have sent a refill for her gabapentin to her pharmacy. Patient Instructions - A prescription for your gabapentin has been sent to [facility] pharmacy. - You have about a one-month supply of your lamotrigine medication, so a refill was not needed today. - My escrow secretary will call you to schedule a test called an EMG to check the nerves in your right arm and neck. - This test will not be done today. - We will discuss the results of this test and the next steps after it is completed. Orders: Orders NE nerve conduction velocity Today M54.12 - Radiculopathy, cervical region NE electromyogram (EMG) Today M54.12 - Radiculopathy, cervical region Medications: New gabapentin 300 mg PO TID 270 caps 1RF lamotrigine 50 mg (2 x 25 mg) PO BID 360 tabs 1RF Coding Level of Care Code Est Pt Level 4 (56061) Diagnoses Complex partial seizure disorder G40.209 Tremor R25.1 Fibromyalgia M79.7 Cervical radiculitis M54.12
== END 2025-06-02 11:26 | disposition home or self-care (01) ==
LOC: HO.HSM 11:03
PROVIDERS: PCP Internal Medicine; Visit Provider Psychiatry & Neurology Neurology
DX: G40.209 Localization-related (focal) (partial) symptomatic epilepsy and epileptic syndromes with complex partial seizures, not intractable, without status epilepticus (principal); R25.1 Tremor, unspecified; M79.7 Fibromyalgia; M54.12 Radiculopathy, cervical region
CPT/HCPCS: 99214

== ENCOUNTER → 2025-06-02 11:02 | Outpatient (BNVA) | payer MEDICARE, SELFPAY | PROVIDERS: PCP Internal Medicine; Visit Provider Psychiatry & Neurology Neurology | DX: G40.209 Localization-related (focal) (partial) symptomatic epilepsy and epileptic syndromes with complex partial seizures, not intractable, without status epilepticus (principal); M79.7 Fibromyalgia; M54.12 Radiculopathy, cervical region; R25.1 Tremor, unspecified | CPT/HCPCS: 99212 ==

== ENCOUNTER 2025-06-03 11:14 | Outpatient (REF) | payer MEDICARE, SELFPAY ==
--- NOTE | ~2025-06-03 | MM_ITS ---
STUDY: DUAL ENERGY X-RAY ABSORPTIOMETRY / DXA REASON FOR EXAM: Female, 74 years old M81.0 - Age-related osteoporosis without current pathological fracture TECHNIQUE: Bone Mineral Density (BMD) measurements of the lumbar spine and left hip were obtained using M&D ANTIQUES & CONSIGNMENT COMPARISON: January 23, 2023 FINDINGS: L1-L2 BMD: 1.186 g/cm2 L1-L2 T score: 0.2. This corresponds to Normal bone density. This represents a 14.9* % increase in bone density compared with prior exam from January 23, 2023. Left femoral neck BMD: 1.016 g/cm2 Left femoral neck T score: -0.2. This corresponds to Normal bone density. Left total hip BMD: 1.097 g/cm2 Left total hip T score: 0.7. This corresponds to Normal bone density. This represents a 24.4* % increase in bone density compared with prior exam from January 23, 2023. * - Indicates a statistically significant change. FRAX score: 10 year risk of major osteoporotic fracture 14.9%, 10 year risk of hip fracture 1.6% MM/XR DEXA axial skeleton IMPRESSION: Normal bone density Reference Information: The T-score is the number of standard deviations above or below the standard which is normal for young adults at their peak bone mineral density. The World Health Organization (WHO) interprets the T-scores as follows: At or above -1 SD Normal bone density Between -1 and -2.5 SD Osteopenia At or below -2.5 SD Osteoporosis Electronically signed by: Mane Campos MD 06/03/2025 11:58 AM [facility]
== END 2025-06-03 11:15 | disposition home or self-care (01) ==
LOC: HO.MAMMO 11:14
PROVIDERS: PCP Internal Medicine; Visit Provider Student in an Organized Health Care Education/Training Program
DX: M81.0 Age-related osteoporosis without current pathological fracture (principal)
CPT/HCPCS: 77080

== ENCOUNTER → 2025-06-03 11:30 | Outpatient (BNV) | payer MEDICARE, SELFPAY | PROVIDERS: PCP Internal Medicine; Visit Provider Radiology Body Imaging | DX: E28.39 Other primary ovarian failure (principal) | CPT/HCPCS: 77080 ==

== ENCOUNTER 2025-06-10 09:01 | Outpatient (AMB) | payer MEDICARE, SELFPAY ==
--- NOTE | 2025-06-10 09:22 | A.OFFPC_ITS ---
Vital Signs 06/10/25 09:23 Height 4 ft 10 in Weight 151 lb BMI 31.6 BP 130/60 Blood Pressure Location Rt brachial Position Sitting Pulse 71 Pulse Source Pulse Oximeter Temp 97.1 F Temp Source Temporal Artery Scan Pulse Oximetry (%) 98 Oxygen Delivery Method Room Air Intake Visit Reasons: 3mth f/u Intake Note: Patient is here to follow up on DM, CAD, HTN. Traffic Checker Required: No Hospital Medical Biller: Not Required per policy Accompanied by: Self / Same As Patient Allergies duloxetine Allergy (Severe, Verified 06/10/25 09:53) LOOPY codeine (CODEINE) Allergy (Intermediate, Verified 06/10/25 09:53) GI UPSET doxycycline (DOXYCYCLINE) Allergy (Intermediate, Verified 06/10/25 09:53) RASH Sulfa (Sulfonamide Antibiotics) (SULFA (SULFONAMIDE ANTIBIOTICS)) Allergy (Intermediate, Verified 06/10/25 09:53) Hives Medication List - Last Reconciled 06/10/25 by Angel Pablo MD ammonium lactate 12% 12 appl topical BID aspirin 81 mg PO DAILY atorvastatin 10 mg PO BEDTIME betamethasone valerate 0.1% 1 appl topical BID PRN blood sugar diagnostic ([employer]I Tele[employer]Touch Ultra Test strips) As directed 3x daily cholecalciferol (vitamin D3) (Vitamin D3) 4,000 units PO DAILY cyanocobalamin (vitamin B-12) (Vitamin B-12) 500 mcg PO DAILY famotidine 40 mg PO DAILY 90 days fluticasone propionate 50 mcg/actuation 2 sprays intranasal DAILY furosemide 10 mg (1/2 x 20 mg) PO DAILY gabapentin 300 mg PO TID hydroxychloroquine 200 mg PO BID insulin glargine (Lantus Solostar U-100 Insulin) 60 units (0.6 mL) subcut BEDTIME 30 days insulin lispro (Humalog Kervin KwikPen (U-100)) 20 units (0.2 mL) subcut BID 90 days insulin syringe-needle U-100 As directed lamotrigine 50 mg (2 x 25 mg) PO BID lidocaine 5% 1 patch topical DAILY lisinopril-hydrochlorothiazide 10-12.5 mg 1 tab PO DAILY 90 days loperamide 2 mg PO BID metoprolol succinate ER 50 mg PO DAILY nystatin 10 mL PO TID oxybutynin chloride ER 10 mg PO BID pen needle, diabetic As directed 2 times per day walker As directed zoledronic hdgg-beihkmsa-ughet 5 mg/100 mL (Reclast) 5 ea IV ONCE Tobacco use date assessed: 06/10/25 Fall risk assessment: No Falls in past year Last assessed Fall Risk: 06/10/25 Dental Screening Dental Screen Date: 08/21/24 HPI HPI Comments History of Present Illness Details History of Present Illness - The patient is a 74 year old female pr esenting for a follow-up visit. - She has confusion regarding her Part D medication insurance, as she was notified the program she was in was ending, but subsequently received a letter suggesting her coverage might continue. - Her new plan does not cover Humalog Qu ickPens, but she has a sufficient supply for now. - For chronic neck and shoulder pain, elaina do is followed by neurologist Dr. Odom and is scheduled for nerve conduction studies in June. - Her gabapentin dose was decreased to 3 00 mg three times daily. 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 - She reports her rheumatoid arthritis h as been fine and continues to take hydroxychloroquine. - She has osteoporosis, which she notes is giving her significant trouble, and receives a once-yearly zoledronic acid infusion. - A recent bone density scan showed a 14 % improvement. - She reports a new onset of left should er pain that began over the weekend, while prior right arm pain has resolved. - In terms of preventative care, the jethro nayak received her flu shot. - She also inquired about her Medicare w ellness visit status. - Blood work from April was noted to be okay. Social History - Functional Status: The patient uses a walker when she goes to stores, but does not use it in the office or when using a shopping cart at the grocery store. - Driving: The patient drives very littl e. - Exercise: She performs stretching exer cises provided by a physical therapist. Results - Labs: Blood work from April 2023 wa s okay. - Imaging: Recent bone density scan show ed a 14% improvement. 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 Edema of lower extremity present on examination half-way use of drug Irritable bowel syndrome with diarrhea Rheumatoid arthritis Pacemaker TIA (transient ischemic attack) Dysphagia Spinal stenosis COVID COVID-19 Laryngopharyngeal reflux (LPR) Asthma Rotator cuff tendinitis Post-menopausal Polyarthralgia Dyspnea on exertion Allergic rhinitis Bronchitis Asthma exacerbation Cough variant asthma DJD (degenerative joint disease) Decreased hearing GERD (gastroesophageal reflux disease) Type 2 diabetes 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s Surgical History S/P placement of cardiac pacemaker History of esophagogastroduodenoscopy (EGD) History of colonoscopy (~09/05/21) Hx of cholecystectomy Hx of tonsillectomy Hx of hysterectomy Family History Father CVD (cardiovascular disease) Diabetes Mother Diabetes Sister No problems noted. Other Substance use disorder Social History Household Members: Family and None Housing: House Are you a primary patient care to a significant other at home: No Do you presently have visiting nurse or other home services: No Alcohol intake: former Comment: WITHIN LAST MONTH Patient Tobacco Use Status: Never used Tobacco e-Cigarette/Vaping Use: Never Used Second Hand Smoke Exposure: No Advance Directives Date on File: 08/04/22 service: No Current occupational status: retired Cognitive needs: Yes (walker) Hearing needs: Yes (hearing aide) Vision needs: Yes (glasses) Questionnaire Thrive Questionnaire Date Thrive assessed: 12/18/24 I am a: Patient What is your living situation today?: I choose not to answer this question Within the past 12 months, did the food you bought not last and you didn't have the money to get more?: I choose not to answer this question Within the past 12 months, did you worry whether your food would run out before you got money to buy more?: I choose not to answer this question Do you have trouble paying for medicines?: I choose not to answer this question Do you have trouble getting transportation to medical appointments?: I choose not to answer this question Do you have trouble paying your heating and electricity bill?: I choose not to answer this question Do you have trouble taking care of your child, family member or friend?: I choose not to answer this question Do you have trouble with day-to-day activities such as bathing, preparing meals, shopping, managing finances, etc.?: I choose not to answer this question Are you currently unemployed and looking for a job?: I choose not to answer this question Are you interested in more education?: I choose not to answer this question Please select the resources that you would like help with: None Currently or been in a relationship where the following occur: I choose not to answer THRIVE Score: 0 BRITTNEY-7 AMB Questionnaire BRITTNEY-7 Date BRITTNEY - 7 assessed: 12/18/24 Source: Developed by Drs. Jonathan Sandoval, Dodie Tejada, Alberto Elizondo and colleagues, with an educational mark from [employer]. Review of Systems Narrative Review of Systems - Musculoskeletal: Reports new onset of pain and limited range of motion in the left shoulder. - She also reports chronic neck and shoulder pain and significant trouble from osteoporosis. - She reports her rheumatoid arthritis is fine and denies current right arm pain. - Voice: Reports frequently losing her voice. Physical exam (Primary Care) Vital Signs: Last Vital Signs Temp 97.1 F 06/10/25 09:23 Pulse 71 06/10/25 09:23 BP 130/60 06/10/25 09:23 Pulse Ox 98 06/10/25 09:23 Oxygen Delivery Method Room Air 06/10/25 09:23 BMI result Body Mass Index 31.6 Tobacco/Smoking Status: Tobacco use Status Tobacco use date assessed 06/10/25 06/10/25 09:34 Patient Tobacco Use Status Never used Tobacco 06/10/25 09:34 e-Cigarette/Vaping Use Never Used 06/10/25 09:34 Thrive Assessment: Date of Thrive Assessment Date Thrive assessed 12/18/24 06/10/25 09:34 Currently or been in a relationship where the following occur: I choose not to answer Narrative Physical Exam General: Appearance normal, both eyes and all related structures Nutritional Appearance: Well nourished Orientation/consciousness: Patient oriented x3 Limitations: Patient uses a walker when not in the grocery store, where a cart is used instead Head: Normal to inspection Neck: Normal visual inspection Chest: Normal palpation of entire chest wall Respiratory: Normal respiratory effort Neurology: Patient oriented x3, recent visit to neurologist for neck and shoulder pain, nerve conduction studies scheduled for June Results AMB Hemoglobin A1c AMB Hemoglobin A1c 5.7 % Last Edit by GIANA Dailey on 06/10/25 09:39 Results Reviewed Results Reviewed: Laboratory Last Values Hgb A1c (Clinic) 5.7 % (4.0-6.0) 06/10/25 09:21 Coding Level of Care Code Est Pt Level 4 (99219) Add On Problem Visit Only Diagnoses Rheumatoid arthritis of multiple sites with negative rheumatoid factor M06.09 Rheumatoid arthritis location: multiple sites Assessment & Plan Assessment & Plan (1) Rheumatoid arthritis with negative rheumatoid factor: Comment: Subcutaneous methotrexate: start date unknown? Around 2018 or 2019-January 2022 Plaquenil: Start date unknown ? Around 2018 or 2019 Oral methotrexate- January 2022 to 12/2024. Due to Code(s): M06.00 - Rheumatoid arthritis without rheumatoid factor, unspecified site Category: Medical Qualifiers: Rheumatoid arthritis location: multiple sites Qualified Code(s): M06.09 - Rheumatoid arthritis without rheumatoid factor, multiple sites Plan Plan - Left shoulder pain: Will order an X-ray of the left shoulder to evaluate for pathology, such as dislocation. - The patient was instructed she can go for the X-ray without an appointment, and I will call her with the results. - Chronic neck and shoulder pain: She will continue gabapentin 300 mg three times daily. - She will proceed with her scheduled nerve conduction studies in June and follow-up with her neurologist in July. - Rheumatoid Arthritis: She will continue hydroxychloroquine as directed by her shingles roofer helper. - Osteoporosis: She will continue with management by her shingles roofer helper, including the annual zoledronic acid infusion. - Medication Management: Await clarification on her Part D insurance plan before making any changes to her insulin regimen. - Health Maintenance: The patient will inquire with the front office about her e ligibility for a Medicare wellness visit and schedule one if due. - Follow-up: The patient will return for a follow-up visit in three months. Discussion Notes I discussed her new onset of left shoulder pain and recommended an X-ray to assess for any acute injury, such as a dislocation. I explained that she can go to the imaging center without an appointment and that I will call her with the results. We reviewed her chronic conditions, and I advised her to continue her current treatment plans for rheumatoid arthritis, osteoporosis, and chronic neck/shoulder pain as directed by her specialists. Regarding her insulin, we agreed to wait until her insurance situation is clarified before considering a change in prescription. I advised her to check with the front loader residential driver regarding her Medicare wellness visit and schedule it if needed. I advised her to follow up with me in three months. Patient Instructions - Go to the imaging center for an X-ray of your left shoulder. - You do not need an appointment for this. We will call you with the results. - Continue taking your current medications, including gabapentin and hydroxychloroquine, as prescribed. - Continue with your physical therapy exercises for your shoulder. - Keep your scheduled appointments with your neurologist in June and July. - Contact your insurance company to clarify the coverage for your medications, especially your Humalog insulin. - Ask the front loader residential driver if you need to schedule a Medicare wellness visit. - Please schedule a follow-up appointment to see us in three months. Orders: Orders AMB Hemoglobin A1c Today E11.9 - Type 2 diabetes 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s, Z79.4 - continuous churn buttermaker (current) use of insulin XR shoulder LT min 2V Today S43.402A - Unspecified sprain of left shoulder joint, initial encounter
[2025-06-10 09:23] VITALS: BP 130/60; PULSE 71; TEMP 36.2; O2SAT 98; BMI 31.6
--- OUTSIDE RECORDS SUMMARY | 2025-06-10 09:53 | XMS_ITS | Clinical Summary ---
Author Organization [facility] Address [address] [place] [phone] Phone Care Team Providers Care Yardmaster Name Role Phone Mariella Chance MD Unavailable [phone] Angel Pablo MD Primary Care Provid [...] (four) hours as needed. Active nebulizer accessories [facility] as directed. 11/08/19 14 Active cholecalciferol, vitamin [...] 10:41 AM EDT): Continue close follow-up with inside contractor sales as scheduled. Aim @ BS= 90-120 mg % Assessment & Plan (07/14/2019 8:25 AM EST): Continue close follow-up with inside contractor sales as scheduled. Aim @ BS= 90-120 mg % Assessment & Plan (04/18/2019 10:48 AM EDT): Continue close follow-up with inside contractor sales as scheduled. Assessment & Plan (02/04/2019 7:57 PM EDT): Continue close follow-up with inside contractor sales as scheduled. Assessment & Plan (08/08/2018 4:43 [...] headboard elevated at 45 angle for nighttime. 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 Daily sun protection. Follow-up with human resource internship as scheduled at least once yearly. Assessment & Plan (05/18/2020 10:43 PM EST): Continue exactly as prescribed. No change in the dose. Daily sun protection. Follow-up with human resource internship as scheduled at least once yearly. Assessment & Plan (02/12/2020 10:39 AM EDT): Continue exactly as prescribed. No change in the dose. Daily sun protection. Follow-up with human resource internship as scheduled at least once yearly. Assessment & Plan (12/01/2019 3:17 PM EDT): Continue exactly as prescribed. No change in the dose. Daily sun protection. Follow-up with human resource internship as scheduled at least once yearly. Assessment & Plan (07/14/2019 8:22 AM EST): Continue exactly as prescribed. No change in the dose. Daily sun protection. Follow-up with human resource internship as scheduled at least once yearly. Assessment & Plan (04/18/2019 10:48 AM EDT): Continue exactly as prescribed. No change in the dose. Daily sun protection. Follow-up with human resource internship as scheduled at least once yearly. Assessment & Plan (02/04/2019 8:04 PM EDT): Continue exactly as prescribed. No change in the dose. Daily sun protection. Follow-up with human resource internship as scheduled at least once yearly. Assessment [...] Comments Other Unspecified Diabetes, heart disease, stroke, CAD/PR. Sister with COPD (former smoker). Sister with [...] of multiple sites with negative rheumatoid factor tank terminal gauger current use of systemic steroids POCT HEMOGLOBIN [...] EST) SODIUM 140 133 - 146 mmol/L [facility] POTASSIUM 4.3 3.3 - 5.1 mmol/L [facility] CHLORIDE 103 96 - 108 mmol/L [facility] CO2 25 21 - 35 mmol/L [facility] BUN 30(H) 6 - 19 mg/dL [facility] CREATININE 1.00 0.5 - 1.5 mg/dL [facility] GLUCOSE 133(H) 70 - 99 mg/dL [facility] ALBUMIN 4.3 3.9 - 4.8 g/dL [facility] TOTAL PROTEIN 7.1 6.5 - 8.0 g/dL [facility] CALCIUM 9.1 8.4 - 10.3 mg/dL [facility] ALKALINE PHOSPHATASE 79 39 - 117 U/L [facility] TOTAL BILIRUBIN 0.4 0.0 - 1.2 mg/dL [facility] AST 35 0 - 37 U/L [facility] ALT 16 0 - 40 U/L [facility] GLOBULIN 2.8 1 - 4.8 g/dL [facility] EGFR 57(L) >59 mL/min/1.7 3m2 [facility] Comment:Estimated glomerular filtration rate calculated using the CKD-EPI equation. ANION GAP 16 10 - 20 mmol/L [facility] Blood 08/16/2020 10:4 0 AM EST 08/16/2020 10:46 AM EST us Kaya Marquez MD LAB BLOOD BKR ORDERABLES Final Result Performing Organization Address City/State/[facility] Co de Phone Number [facility] [address] [place] [address] * BD DXA AXIAL (SPINE) WITH HIP (09/06/2018 10:51 AM EDT) Anatomical Region Laterality Modality Bone Density Bone Density 09/06/2018 3:18 PM EDT Impressions 09/06/2018 3:21 PM EDT Normal bone mineral density with statistically significant increase in bone mineral density in the hips since 2001. POS - [id number] Narrative 09/06/2018 3:21 PM EDT COMPARISON: 12/02/2001 [...] the right hip was calculated at 1.071 gm/pw2iorg a T-score of 1.1 falling within the WHO classification of normal.Z-score of 2.4. 3.3% increase in bone mineral density since the priorexam which is statistically significant at the 95% confidence level. Total bone mineral density in the left hip was calculated at 1.095 gm/ip8mbla a T-score of 1.36 falling within the WHO classification of normal.Z-score of 2.6. 3.4% increase in bone mineral density since the priorexam which is statistically significant at the 95% confidence level. IMPRESSION: Normal bone mineral density with statistically significant increase inbone mineral density in the hips since 2001. POS - [id number] Kaya Marquez MD IMG BD BONE DENSITY DEXA Final Result * POCT Hemoglobin A1c (08/08/2018 3:34 PM EST) Hemoglobin A1c 5.3 4.2 - 5.8 % [facility] Other 08/08/2018 3:34 PM EST Mariella Chance MD LAB POCT ENTER/EDIT ORDERABLES Final Result Performing Organization Address City/[facility]/ZIP Co de Phone Number [address] [phone] * Hepatitis B surface antigen (06/12/2018 12:33 PM EST) HBV SURFACE ANTIGEN Negative Negative [facility] Blood 06/12/2018 12:3 3 PM EST 06/12/2018 12:50 PM EST Kaya Marquez MD LAB BLOOD BKR ORDERABLES Final Result Performing Organization Address City/[facility] Co de Phone Number [address] [phone] from Last 3 Months or Most Recently Relevant to Health Maintenance Insurance MEDICARE PART A & B [employer] CROSS MEDEX SUPPLEMENT MEDICARE PART A & B [employer] MEDEX SUPPLEMENT MEDICARE PART A & B [employer] MEDEX SUPPLEMENT MEDICARE PART A & B [employer] SUPPLEMENT MEDICARE PART A & B [employer] MEDEX SUPPLEMENT MEDICARE PART A & B [employer] MEDEX SUPPLEMENT MEDICARE PART A & B [employer] MEDEX SUPPLEMENT MEDICARE PART A & B [employer] MEDEX SUPPLEMENT [place] A [place] [id number] [employer] MEDEX SUPPLEMENT Care Teams Yardmaster Relationship Specialty Start Date End Date Angel Pablo MD [address] [place] [id number] PCP - General Internal Medicine 02/12/20 Mariella Chance MD [address] [facility] [place] [address] [email or web address] Historical LMR Provider 04/09/17 Additional Source Comments The information contained in this document represents components of the legal health record. It is not the complete legal health record.[facility]
--- OUTSIDE RECORDS SUMMARY | 2025-06-10 09:53 | XMS_ITS | Patient Health Record ---
[facility] Address [address] [place] [address] Care Team Providers Care Medical Records Technician Name Role Phone Angel Pablo Primary Care Provider Antonio Giles Unavailable [phone] Allergies Allergen (clinical drug ingredient) Drug/Non Drug [...] 03/25/2024 Administered Influenza Unknown 02/23/2025 Administered COVID-19 [employer] Unknown 07/14/2021 Administered 1st 09/29/2020 Booster 07/14/2021 [...] Problem Acquired hammer toe of right foot ([id number] ) Other hammer toe(s) (acquired), right foot (M20.41) Active confirmed Response to treatment, Improvemen t Problem Acquired hammer toe of left foot (2193745289427209 ) Other hammer toe(s) (acquired), left foot (M20.42) Active confirmed Response to treatment, Improvemen t Problem Polyneuropathy due to type 2 diabetes mellitus (668285931) Type 2 diabetes mellitus with diabetic polyneuropathy (E11.42) Active confirmed Vital Signs Blood pressure diastolic 65 mm Hg 03/27/2025 Height 4ft 10in in 03/27/2025 Blood pressure systolic 110 mm Hg 03/27/2025 Weight 145 lbs 03/27/2025 BMI 30.3 kg/m2 03/27/2025 Procedures Procedure Date Ordered Date Performed Result Body Sit e 54005-AJHFAML NAIL, 6 OR MORE 06/10/2024 N/A 06005-AVQJ SKIN LESIONS, OVER 4 06/10/2024 N/A 72202-OKGKJWI NAIL, 6 OR MORE 09/16/2024 N/A 45320-SYVU SKIN LESIONS, OVER 4 09/16/2024 N/A 99137-XMNGYNV NAIL, 6 OR MORE 12/23/2024 N/A 02820-WUXQ SKIN LESIONS, OVER 4 12/23/2024 N/A 55809-MUBSSNP NAIL, 6 OR MORE 03/27/2025 N/A 99049-HKIT SKIN LESIONS, OVER 4 03/27/2025 N/A Encounters Encounter Location Date Provider Diagnosis [address] [address] 06/10/2024 Antonio Giles Type 2 diabetes mellitus with diabetic polyneuropathy E11.42 ; Tinea unguium B35.1 ; Other hammer toe(s) (acquired), right foot M20.41 and Other hammer toe(s) (acquired), left foot M20.[address] [address] 09/16/2024 Antonio Giles Type 2 diabetes mellitus with diabetic polyneuropathy E11.42 ; Tinea unguium B35.1 and Xerosis of skin L85.[address] [address] 12/23/2024 Antonio Giles Type 2 diabetes mellitus with diabetic polyneuropathy E11.42 ; Tinea unguium B35.1 and Xerosis of skin L85.[address] [address] 03/27/2025 Antonio Giles Type 2 diabetes mellitus with diabetic polyneuropathy E11.42 ; Tinea unguium B35.1 ; Other hammer toe(s) (acquired), right foot M20.41 and Other hammer toe(s) (acquired), left foot M20.42 [facility] [address] [address] 09/26/2024 Antonio Giles [facility] [address] [address] 2024 Antonio Giles Xerosis of skin L85. [...] X ray : Foot, right 3V 03/03/2022 21084-YMSZHED NAIL, 6 OR MORE 03/11/2024 78879-VDEJRDL NAIL, 6 OR MORE 09/11/2023 80369-BLGRANK NAIL, 6 OR MORE 12/11/2023 67296-RCHOBWM NAIL, 6 OR MORE 09/08/2022 50027-MCLTEYX NAIL, 6 OR MORE 12/08/2022 11861-ZWDVCZA NAIL, 6 OR MORE 03/09/2023 53883-EMLCLUZ NAIL, 6 OR MORE 06/08/2023 92007-IPLRBHL NAIL, 6 OR MORE 06/02/2022 32026-WCCRTXV NAIL, 6 OR MORE 03/03/2022 51629-TCOFRLZ NAIL, 6 OR MORE 08/30/2021 75092-FZKKRXT NAIL, 6 OR MORE 12/02/2021 45119-NZSDMQB NAIL, 6 OR MORE 06/08/2020 88173-POSONKQ NAIL, 6 OR MORE 09/03/2020 36194-GSJBXEV NAIL, 6 OR MORE 12/10/2020 05506-LPCPROU NAIL, 6 OR MORE 03/22/2021 30196-QPEGZPR NAIL, 6 OR MORE 06/10/2024 23691-OMJQFYB NAIL, 6 OR MORE 09/16/2024 76158-XYZNLKI NAIL, 6 OR MORE 12/23/2024 92618-FABTAHX NAIL, 6 OR MORE 03/27/2025 05424-Slhavwmr Plate 12/11/2023 43575- Debride <25 sq cm 04/15/2024 48583-ZVCSEOO SKIN/TISSUE 03/25/2024 16489 I&D ABSCESS- SIMPLE,SINGLE 024 40754-YJLO SKIN LESIONS, OVER 4 06/10/20 24 69091-AXRZ SKIN LESIONS, OVER 4 12/24/19 25 03451-YAVN SKIN LESIONS, OVER 4 09/17/19 25 39685-ERBH SKIN LESIONS, OVER 4 03/27/20 25 66638-FTFE SKIN LESIONS, OVER 4 03/11/20 24 50342-HSOK SKIN LESIONS, OVER 4 12/11/19 24 04800-WOIM SKIN LESIONS, OVER 4 09/11/19 24 85669-MKFR SKIN LESIONS, OVER 4 06/08/20 58027-KMUZ SKIN LESIONS, OVER 4 03/09/20 28862-YQVB SKIN LESIONS, OVER 4 12/09/19 14635-FDMI SKIN LESIONS, OVER 4 09/09/19 91761-LNED SKIN LESIONS, OVER 4 03/22/20 20018-KNAL SKIN LESIONS, OVER 4 12/11/19 80637-BKCW SKIN LESIONS, OVER 4 09/04/19 96613-XRXO SKIN LESIONS, OVER 4 06/08/20 49490-VPGT SKIN LESIONS, OVER 4 12/03/19 89094-DPFE SKIN LESIONS, OVER 4 08/31/19 76104-NKME SKIN LESIONS, OVER 4 03/03/20 67434-LSLG SKIN LESIONS, OVER 4 06/02/20 Next Appt Details Provider Name:Antonio Giles , 07/21/2025 11:00:00 AM, [address] [place] [address], [phone], Insurance Providers Payer Name Payer Address Payer Phone Subscriber Number Group Number Insured Name Patient Relationship to Insured Coverage Start Date Coverage End Date Medicare [employer] [facility] [address] [place] [address] [id number] Kriss Jackson Self - patient is the insured [employer] [address] [place] [address] [id number] Kriss Jackson Self - patient is the [...]
== END 2025-06-10 09:52 | disposition home or self-care (01) ==
LOC: HO.HMCH 09:02
PROVIDERS: PCP Internal Medicine; Visit Provider Internal Medicine
DX: E11.9 Type 2 diabetes 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s (principal); Z79.4 Long term (current) use of insulin; M06.09 Rheumatoid arthritis without rheumatoid factor, multiple sites

== ENCOUNTER 2025-06-10 09:01 | Outpatient (REF) | payer MEDICARE, SELFPAY ==
--- NOTE | ~2025-06-10 | XR_ITS ---
EXAMINATION: XR SHOULDER, LEFT CLINICAL INFORMATION: S43.402A - Unspecified sprain of left shoulder joint, initial encounter COMPARISON: Correlated to chest x-ray dated August 04, 2024. TECHNIQUE: AP views in neutral, internal rotation and Y-view projection, of the left shoulder. FINDINGS: Degenerative changes in the acromioclavicular joint and the glenohumeral joint. Degenerative changes in the greater tuberosity of the humerus. No acute fracture or dislocation. No lytic or blastic lesions. No soft tissue calcifications. 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 Multilevel spondylosis, thoracic spine. XR/XR shoulder LT min 2V IMPRESSION: Degenerative changes, mild to moderate. Electronically signed by: Daniel Markham MD 06/10/2025 10:40 AM RUDY BARR
== END 2025-06-10 09:02 | disposition home or self-care (01) ==
LOC: HO.XRAY 09:01
PROVIDERS: PCP Internal Medicine; Visit Provider Internal Medicine
DX: M06.09 Rheumatoid arthritis without rheumatoid factor, multiple sites (principal); S43.402A Unspecified sprain of left shoulder joint, initial encounter; Z79.82 Long term (current) use of aspirin; Z79.4 Long term (current) use of insulin; Z79.899 Other long term (current) drug therapy; M81.0 Age-related osteoporosis without current pathological fracture
CPT/HCPCS: 73030; 83036; 99212

== ENCOUNTER → 2025-06-10 10:19 | Outpatient (BNV) | payer MEDICARE, SELFPAY | PROVIDERS: PCP Internal Medicine; Visit Provider Radiology Diagnostic Radiology | DX: S43.402A Unspecified sprain of left shoulder joint, initial encounter (principal); M19.012 Primary osteoarthritis, left shoulder | CPT/HCPCS: 73030 ==